=== PATIENT | female | born 1955 | race Caucasian/White ===

== ENCOUNTER 2019-07-20 10:41 | Outpatient (CLI) | payer MEDICAID, SELFPAY ==
--- NOTE | 2019-07-20 10:53 | CT_ITS ---
WS: [id number] CT ANGIOGRAPHY ABDOMEN AND PELVIS WITH AND WITHOUT CONTRAST. HISTORY: AAA WITHOUT RUPTURE TECHNIQUE: Contiguous axial images through the abdomen and pelvis. Imaging performed with and without contrast with delayed imaging. Reformation images and MIP reviewed. All CT scans at [facility] use at least one of these dose optimization techniques: automated exposure control; mA and/or k V adjustment per patient size (includes targeted exams where dose is matched to clinical indication); or iterative reconstruction. CONTRAST: Visipaque 320; 75 mL IV. DLP: 2292.39 mGy-cm. COMPARISON: 03/07/2019 Moderate emphysema at the lung bases. Mild stable dependent changes at the LEFT lung base. Small hiat al hernia. Normal size heart. Early enhancement of the visceral organs demonstrates no acute interval change. Liver and spleen are normal size. Gallbladder and pancreas are negative. Moderate atrophy of the LEFT kidney with small cortical hypodensities scattered throughout the kidney. There is bulging of upper pole cortex measuring 9 mm of the LEFT kidney indeterminate for early neoplasm. Renal atroph y is new since 03/07/2019. The proximal main renal artery on the LEFT is not enhancing. Abdominal aorta: Since the prior examination endovascular grafting has been performed. The endovascul ar graft is above the aneurysm. Graft is evident near the diaphragmatic hiatus and extends over lengt h of 6 cm. There is a hardware gap measuring 3.2 cm before the iliac grafts are identified. Fusiform aneurysm extends over length of 5.8 cm which is similar to the prior examination. Transverse diameter of 3.6 cm and AP diameter of 3.3 cm. Diameter of the aneurysm has slightly decreased. There is a pat ent lumen with a large amount of circumferential thrombus. Contrast is noted filling the common iliac artery grafts. On the delayed imaging there is no enhancement of the thrombus. Enhancement is still evident involving the celiac axis and SMA. No ischemic bowel disease. Moderate fecal retention. No free fluid or periaortic hematoma. L5 anterolisthesis by 7 mm. T12 Schmorl's node. Notified Edil Hill MD at 07/20/2019 12:[address]/CT angio abdomen pelvis [id number] IMPRESSION: 1. Findings are consistent with migration of the endovascular aortic graft. Th e main vascular graft begins at the level of the diaphragmatic hiatus. There molina s been no increase in size of the [place] aneurysm but there is no endovascular graft associated with the largest aneurysmal component. 2. Bilateral iliac artery stent grafts are patent. 3. Moderate atrophy LEFT kidney with new ischemic changes since 03/07/2019. Pos sible LEFT renal carcinoma. Follow-up will be necessary.
[2019-07-20] MEDS: iodixanol 320 mg/mL 100mL Btl IV (11:22)
== END 2019-07-20 10:42 | disposition home or self-care (01) ==
LOC: RADWPI 10:45
PROVIDERS: Family Provider Nurse Practitioner Family; PCP Family Medicine; Referring Provider Family Medicine; Visit Provider Thoracic Surgery (Cardiothoracic Vascular Surgery)
DX: I71.4 Abdominal aortic aneurysm, without rupture (principal); N26.1 Atrophy of kidney (terminal)
CPT/HCPCS: 74174; Q9967

== ENCOUNTER → 2019-07-23 14:35 | Outpatient (BNVA) | payer MEDICAID, SELFPAY | PROVIDERS: Family Provider Nurse Practitioner Family; PCP Family Medicine; Visit Provider Thoracic Surgery (Cardiothoracic Vascular Surgery) | DX: I72.9 Aneurysm of unspecified site (principal) | CPT/HCPCS: 80048 ==

== ENCOUNTER 2019-07-31 09:47 | Outpatient (CLI) | payer MEDICAID, SELFPAY ==
--- NOTE | 2019-07-31 10:15 | USCV_ITS ---
Hali James Age: 64 Gender: F : 1955 Exam Date: 07/31/2019 10:16 Ordering Phys: Edil Hill MD (Andy) ([email or web address]) Technologist: Tiffanie Miller Exam Location: [facility] [place] Indication: AAA Aortic Velocity @ SMA (cm/s) 118 RIGHT KIDNEY LEFT KIDNEY Velocity (cm/s) Velocity (cm/s) Sys/Carnes Sys/Carnes Resistive Index Resistive Index 148.4 / 48.6 0.67 Proximal Renal Artery 125.1 / 54.9 0.56 85.1 / 34.1 0.60 Mid Renal Artery 103.0 / 35.4 0.66 156.3 / 64.8 0.59 Distal Renal Artery 101.9 / 41.2 0.60 41.5 / 18.6 0.55 Hilar 122.0 / 55.9 0.54 52.0 / 24.2 0.54 Upper Pole 24.7 / 9.9 0.60 16.2 / 8.9 0.45 Mid Pole 15.5 / 9.6 0.38 30.9 / 15.8 0.49 Lower Pole 16.7 / 8.0 0.52 1.10 Renal Aortic Ratio 0.91 Accleration Index (cm/sec2) 694.00 Hilar 1363.0 0 788.00 Upper Pole 595.00 627.00 Mid Pole 307.00 514.00 Lower Pole 900.00 83.6 Kidney Length (mm) 70.9 FINDINGS Normal arterial Doppler velocities bilaterally Normal velocity ratios and resistive indicis Relatively small size kidneys bilaterally CONCLUSIONS 1. No evidence of any significant renal artery stenosis. 2. Small size kidneys bilaterally Dr Guillermo Culver MD [facility] (Electronically Signed) Final Date: 01 August 2019 09:11 S
== END 2019-07-31 09:48 | disposition home or self-care (01) ==
LOC: RAD 09:52
PROVIDERS: Family Provider Nurse Practitioner Family; PCP Family Medicine; Visit Provider Thoracic Surgery (Cardiothoracic Vascular Surgery)
DX: I71.4 Abdominal aortic aneurysm, without rupture (principal)
CPT/HCPCS: 93975

== ENCOUNTER 2019-07-31 11:00 | Outpatient (CLI) | payer MEDICAID, SELFPAY ==
[2019-07-31] MEDS: iodixanol 320 mg/mL 100mL Btl IV (11:18)
--- NOTE | 2019-07-31 13:00 | CT_ITS ---
WS: [id number] CT HEAD TECHNIQUE: Noncontrast and contrast-enhanced CT of the head. CLINICAL INFORMATION: new onset headache after 50 COMPARISON: 1 10,019 DLP: 831.[address] scans at [facility] use at least one of these dose optimization techniques: automat ed exposure control; mA and/or kV adjustment per patient size (includes targeted exams where dose is matched to clinical indication); or iterative reconstruction. FINDINGS: Multiple subcentimeter intracranial aneurysms measuring 3 to 5 mm better evaluated on the recent CTA but appear grossly unchanged today. No evidence of intracranial hemorrhage or mass effect. Mild small vessel changes. Moderate parenchyma l volume loss. No hydrocephalus. No extra axial fluid collections. No abnormal intraparenchymal enhan cement. Paranasal sinuses and mastoid air cells well aerated. CT/CT head wo/w con [id number] IMPRESSION: 1. No evidence of intracranial hemorrhage or mass effect. 2. Multiple small intracranial aneurysms measuring 3 to 5 mm better evaluated on the recent CTA appear grossly unchanged. 3. Mild small vessel changes moderate parenchymal volume loss. 4. No abnormal intracranial enhancement.
== END 2019-07-31 11:01 | disposition home or self-care (01) ==
LOC: RAD 11:02
PROVIDERS: Family Provider Nurse Practitioner Family; PCP Family Medicine; Visit Provider Nurse Practitioner Family
DX: I67.1 Cerebral aneurysm, nonruptured (principal); R51 Headache
CPT/HCPCS: 70470

== ENCOUNTER 2019-09-02 13:48 | Emergency (ER) | payer MEDICAID, SELFPAY ==
[2019-09-02 14:00] VITALS: BP 145/82; PULSE 72; RESP 16; TEMP 36.5; O2SAT 96; BMI 19.7
--- NOTE | 2019-09-02 14:18 | W.ED.ANIMALB ---
HPI - Animal Bite General: Chief Complaint: Animal Bite Stated Complaint: dogbite Time Seen by Provider: 09/02/19 14:06 History of Present Illness: HPI narrative: Multiple scratches to both arms and to the left leg from try to break up a dog fight about an hour or so ago. Patient is on Plavix. Patient has skin tear across the back of her right hand that extends about 3 and half inches. Other areas are clotted off and do not appear to be large at all but there are multiple it was her dogs and dogs are up-to-date on shots and she is not worried about rabies with these dogs MD complaint: animal bite Onset (ago): minute(s) Animal: dog Description of animal: household pet Mechanism: scratch Location: other Location - Extremities: Left: lower leg and Right: arm Context: unprovoked and animals fighting Associated symptoms: Reports no associated symptoms; Deny chills, fever(s) or headache(s) Treatments prior to arrival: wound dressing(s) Review of Systems Narrative: Multiple scratches and minor skin tears on the arms and left leg from dog scratching her Const: Denies: fever, chills or body aches Eyes: Denies: change in vision or blurry vision ENMT: Denies: throat pain or nasal congestion Card: Denies: chest pain or shortness of breath on exertion Resp: Denies: shortness of breath, productive cough or non-productive cough GI: Denies: abdominal pain, nausea or vomiting Musc: Denies: extremity pain Skin/Breast: Denies: rash Neuro: Denies: headache Psych: Denies: anxiety or depression Bill/Lymph: Denies: easy bruising [facility] ED PFSH: Social History Smoking and tobacco status: former smoker Alcohol intake: never Physical Exam Const: COMMON NORMALS: no apparent distress, average body habitus and oriented x3 HENMT: COMMON NORMALS: normocephalic HEAD & SCALP: normal to inspection and normocephalic FACE & SINUS: normal facial exam Eye: COMMON NORMALS: conjunctivae normal GENERAL EYE: normal appearance of both eyes CONJUNCTIVA: Yes conjunctivae normal Neck/C-Spine: COMMON NORMALS: no JVD Chest: COMMONS NORMALS: inspection of chest normal Resp: COMMON NORMALS: normal respiratory effort and clear to auscultation bilaterally AUSCULTATION: clear to auscultation bilaterally Cardio: COMMON NORMALS: no JVD, regular rate and regular rhythm RATE: regular rate RHYTHM: regular rhythm GI: COMMON NORMALS: normal to inspection, nondistended, normoactive bowel sounds Extremity: COMMON NORMALS: full ROM NARRATIVE EXTREMITY EXAM: Right hand has a large skin tear across the dorsal surface of it extending from medial lateral side approximately 2 and half to 3 inches. Has multiple scratches on both forearms. And has multiple scratches on the left lower leg. Patient has good range of motion neurovascular status is intact. Neuro: COMMON NORMALS: oriented x3 Procedures Laceration Laceration 1: Site: hand Side (If applicable): right Size (cm): 5 Description: linear Depth: simple, single layer Pre-repair: irrigated extensively Size (cm): other Technique: other (Glue) Course Vital Signs: Vital signs: Vital Signs Temperature 97.7 F 09/02/19 14:00 Pulse Rate 72 09/02/19 14:00 Respiratory Rate 16 09/02/19 14:00 Blood Pressure 145/82 09/02/19 14:00 Pulse Oximetry 96 09/02/19 14:00 Discharge Plan Discharge Prescriptions: No Action aspirin 81 mg tablet,delayed release (DR/EC) 81 mg PO DAILY RF: 0 nitroglycerin [Nitrostat] 0.4 mg tablet, sublingual 0.4 mg SUBLINGUAL Q5M PRNRF: 0 levothyroxine [Synthroid] 25 mcg tablet 25 mcg PO DAILY RF: 0 fluoxetine [Prozac] 20 mg capsule 20 mg PO DAILY RF: 0 albuterol sulfate 2.5 mg /3 mL (0.083 %) solution for nebulization 2.5 mg INHALATION QID RF: 0 Spiriva with HandiHaler 18 mcg capsule, w/inhalation device 1 cap INHALATION DAILY RF: 0 ferrous sulfate 325 mg (65 mg iron) tablet 325 mg PO BID RF: 0 atorvastatin 20 mg tablet 20 mg PO DAILY RF: 0 baclofen 10 mg tablet 10 mg PO TID PRNRF: 0 buspirone 30 mg tablet 30 mg PO DAILY RF: 0 celecoxib [Celebrex] 200 mg capsule 200 mg PO DAILY RF: 0 roflumilast PO DAILY RF: 0 omeprazole 20 mg capsule,delayed release(DR/EC) 20 mg PO DAILY RF: 0 ropinirole 1 mg tablet 1 mg PO DAILY RF: 0 Symbicort 160-4.5 mcg/actuation HFA aerosol inhaler 2 puff INHALATION BID RF: 0 tramadol 50 mg tablet 50 mg PO Q8H PRNRF: 0 metoprolol succinate 25 mg tablet extended release 24 hr 25 mg PO DAILY RF: 0 levofloxacin [Levaquin] 500 mg tablet 500 mg PO Q24H Qty: 5 RF: 0 irbesartan 300 mg tablet 300 mg PO DAILY Qty: 30 RF: 3 Coding Level of Care Code ED Physician Assistant Surgery for Leann Crowley
[2019-09-02] MEDS: tetanus-dipt-pertussis 0.5 mL SDV IM (14:33)
[2019-09-02 14:43] VITALS: BP 149/86; PULSE 70; RESP 16; TEMP 36.7; O2SAT 94
== END 2019-09-02 14:45 | disposition home or self-care (01) ==
LOC: ER 14:32
PROVIDERS: Emergency Provider Nurse Practitioner Family; Family Provider Nurse Practitioner Family; PCP Family Medicine
DX: S61.411A Laceration without foreign body of right hand, initial encounter (principal); S80.812A Abrasion, left lower leg, initial encounter; S50.812A Abrasion of left forearm, initial encounter; S50.811A Abrasion of right forearm, initial encounter; Z87.891 Personal history of nicotine dependence; W54.8XXA Other contact with dog, initial encounter
CPT/HCPCS: 12002; 90715; 96372; 99281; 99282

== ENCOUNTER → 2019-09-10 12:02 | Outpatient (BNVA) | payer MEDICAID, SELFPAY | PROVIDERS: Family Provider Nurse Practitioner Family; PCP Family Medicine; Visit Provider Nurse Practitioner Family | DX: R06.02 Shortness of breath (principal); J44.1 Chronic obstructive pulmonary disease with (acute) exacerbation | CPT/HCPCS: 71046 ==

== ENCOUNTER 2019-09-10 22:39 | Emergency (ER) | payer MEDICAID, SELFPAY ==
[2019-09-10 22:42] VITALS: BP 133/69; PULSE 93; RESP 16; TEMP 36.6; O2SAT 95; BMI 19.7
--- NOTE | 2019-09-10 22:47 | ED_ITS ---
Entered by Jamilah Novak, acting as scribe for Flo Mcknight MD HPI - General Adult General: Chief complaint: Shortness of Breath/Dyspnea Stated complaint: SOB Time Seen by Provider: 09/10/19 22:45 Source: patient, family and EMS Mode of arrival: EMS History of Present Illness: HPI narrative: 64 y/o female presents to the ED for multiple symptoms. Pt states she was seen at the clinic today for cough, sore throat, etc and was placed on abx. Since then, she had an episode of muscle spasm in her LE, GARCIA, sweating and rib pain. She reports having SOB with this earlier, but that is no longer an issue. She reports hx of brain aneurysms. MD complaint: SOB/GARCIA Location: head Severity: mild Pain Consistency: intermittent Associated symptoms: Reports headache(s); Deny chest pain, dyspnea (upon arrival at [facility]), nausea, rash or vomiting Review of Systems Const: Denies: fever, chills, body aches or change in appetite Eyes: Denies: blurry vision or eye discomfort ENMT: Denies: throat pain or dental pain Card: Denies: chest pain Resp: Reports: non-productive cough; Denies: shortness of breath (upon arrival at [facility]) GI: Denies: abdominal pain, nausea, vomiting or diarrhea : Denies: painful urination Musc: Denies: neck pain or back pain Skin/Breast: Denies: rash Neuro: Reports: headache Psych: Denies: depression Bill/Lymph: Denies: easy bruising All/Imm: Denies: hives [facility] ED PFSH: Social History Smoking and tobacco status: former smoker Alcohol intake: never Physical Exam Const: COMMON NORMALS: no apparent distress, oriented x3 and healthy appearing HENMT: COMMON NORMALS: normocephalic and head/scalp atraumatic HEAD & SCALP: normocephalic and atraumatic Eye: COMMON NORMALS: PERRL and EOMs intact bilaterally PUPIL: Yes PERRL Neck/C-Spine: COMMON NORMALS: full ROM and supple Chest: COMMONS NORMALS: inspection of chest normal and palpation of chest normal Resp: COMMON NORMALS: normal respiratory effort, no retractions, no use of accessory muscles and clear to auscultation bilaterally AUSCULTATION: clear to auscultation bilaterally Cardio: COMMON NORMALS: regular rate, regular rhythm and no murmurs RATE: regular rate RHYTHM: regular rhythm GI: COMMON NORMALS: normal to inspection, nondistended, normoactive bowel sounds, soft to palpation, non-tender and no masses PALPATION: Yes soft Extremity: COMMON NORMALS: normal to inspection and full ROM Neuro: COMMON NORMALS: oriented x3, moves all extremities and no focal motor deficits Psych: COMMON NORMALS: mental status grossly normal, thought process normal and cooperative THOUGHT PROCESS: normal thought process Skin: COMMON NORMALS: no rashes or lesions noted and no wounds GENERAL SKIN EXAM: no rashes or lesions noted Course Vital Signs: Vital signs: Vital Signs Temperature 98 F 09/10/19 22:42 Pulse Rate 94 09/11/19 01:40 Respiratory Rate 20 H 09/11/19 01:40 Blood Pressure 129/78 09/11/19 01:40 Pulse Oximetry 99 09/11/19 01:40 MDM - General Adult MDM Narrative: Medical decision making narrative: Patient presents with a headache and has history of previous headaches. She has no signs of subarachnoid hemorrhage or meningitis. Her head CT here is negative. Patient is well-appearing here and is stable for discharge. I did inform her hemoglobin was slightly low and she states she has a history of anemia. She is to follow- up with her primary care doctor later this week and return if worsening. She denies any blood in her stool or loss of blood. Lab Data: Labs: Lab Results 09/10/19 09/10/19 Range/Units 23:02 23:02 WBC 5.7 (4.0-10.0) 10^3/ uL RBC 3.54 L (4.1-5.3) 10^6/u L Hgb 8.8 L (11.5-15.3) g/dL Hct 27.7 L (37.0-47.0) % MCV 78.2 L D (81-99) fL MCH 24.9 L (28.0-34.0) pg MCHC 31.8 (30.0-36.0) g/dL RDW 15.9 H (12.1-15.1) % Plt Count 238 (130-400) 10^3/c mm MPV 9.4 (7.4-10.4) fL Neut % (Auto) 92.4 % Lymph % (Auto) 5.3 % [place] % (Auto) 1.6 % Eos % (Auto) 0.0 % Baso % (Auto) 0.2 % Neut # (Auto) 5.3 (1.8-7.7) 10^3/u L Lymph # (Auto) 0.3 L (0.8-4.8) 10^3/u L [place] # (Auto) 0.1 L (0.2-0.9) 10^3/u L Eos # (Auto) 0.0 (0.0-0.8) 10^3/u L Baso # (Auto) 0.0 (0.0-0.1) 10^3/u L Nucleated RBC % (a uto) 0 % Nucleated RBCs # 0.0 /100WBC Sodium 131 L (136-145) mmol/L Potassium 3.7 (3.5-5.1) mmol/L Chloride 97 L (98-107) mmol/L Carbon Dioxide 20 L (22-29) mmol/L Anion Gap 17.7 (5-19) BUN 14 (8-23) mg/dL Creatinine 1.1 H (0.5-0.9) mg/dL GFR Calculation 50.3 L (90-130) mL/min Glucose 147 H (65-115) mg/dL Calcium 9.3 (8.5-10.5) mg/dL Total Bilirubin 0.3 (0.15-1.2) mg/dL AST 15 (0-32) U/L ALT 6 (0-33) U/L Alkaline Phosphata se 86 (35-105) IU/L Total Protein 7.5 (6.6-8.7) g/dL Albumin 3.8 (3.5-5.2) g/dL Globulin 3.7 (1.3-4.6) g/dL Lipase 14 (13-60) U/L Imaging Data^: CT Head: Radiologist's impression: Ordering Provider/Ordering MD: Flo Mcknight MD Date of Service: 09/10/19 Procedure(s): CT head wo con* [id number] Accession Number(s): [id number] Report Number: [id number] PROCEDURE INFORMATION: Exam: CT Head Without Contrast Exam date and time: 09/10/2019 11:14 PM Age: 64 years old Clinical indication: Pain; Headache TECHNIQUE: Imaging protocol: Computed tomography of the head without contrast. Total DLP: 608.94 mGy-cm Radiation optimization: All CT scans at this facility use at least one of these dose optimization techniques: automated exposure control; mA and/or kV adjustment per patient size (includes targeted exams where dose is matched to clinical indication); or iterative reconstruction. COMPARISON: CT head wo/w con [id number] 07/31/2019 11:29 AM FINDINGS: Brain: No acute intracranial hemorrhage or mass effect . There is mild decreased attenuation in the periventricular white matter, likely from microvascular disease. Suspect old lacunar infarcts in the basal ganglia/internal capsule regions bilaterally, similar to prior exam. No definite acute infarct by CT. Ventricles: Ventricle size is normal for age. Bones/joints: No definite acute skull fracture. Sinuses: Included paranasal sinuses are essentially clear. Mastoid air cells: No significant acute finding. Vasculature: Mild vascular calcifications in the internal carotid and vertebral basilar systems. CT/CT head wo con* [id number] IMPRESSION: 1. No acute intracranial hemorrhage or mass effect. 2. Other findings discussed above. CXR: Attestation: I personally reviewed and interpreted this imaging study as follows: My impression: no acute abnormality Discharge Plan Discharge Patient Disposition: Home, Self-Care Clinical Impression: COPD (chronic obstructive pulmonary disease) Qualifiers: COPD type: unspecified COPD Qualified Code(s): J44.9 - Chronic obstructive pulmonary disease, unspecified Headache Qualifiers: Headache type: unspecified Headache chronicity pattern: unspecified pattern Intractability: not intractable Qualified Code(s): R51 - Headache Condition: Stable Prescriptions: No Action aspirin 81 mg tablet,delayed release (DR/EC) 81 mg PO DAILY RF: 0 nitroglycerin [Nitrostat] 0.4 mg tablet, sublingual 0.4 mg SUBLINGUAL Q5M PRN (Reason: Chest Pain) RF: 0 levothyroxine [Synthroid] 25 mcg tablet 25 mcg PO DAILY RF: 0 fluoxetine [Prozac] 20 mg capsule 20 mg PO DAILY RF: 0 albuterol sulfate 2.5 mg /3 mL (0.083 %) solution for nebulization 2.5 mg INHALATION QID RF: 0 Spiriva with HandiHaler 18 mcg capsule, w/inhalation device 1 cap INHALATION DAILY RF: 0 ferrous sulfate 325 mg (65 mg iron) tablet 325 mg PO BID RF: 0 atorvastatin 20 mg tablet 20 mg PO DAILY RF: 0 baclofen 10 mg tablet 10 mg PO TID PRN (Reason: Muscle Spasm) RF: 0 buspirone 30 mg tablet 30 mg PO DAILY RF: 0 celecoxib [Celebrex] 200 mg capsule 200 mg PO DAILY RF: 0 roflumilast PO DAILY RF: 0 omeprazole 20 mg capsule,delayed release(DR/EC) 20 mg PO DAILY RF: 0 ropinirole 1 mg tablet 1 mg PO DAILY RF: 0 Symbicort 160-4.5 mcg/actuation HFA aerosol inhaler 2 puff INHALATION BID RF: 0 tramadol 50 mg tablet 50 mg PO Q8H PRN (Reason: Pain) RF: 0 clarithromycin 500 mg tablet 500 mg PO BID 7 Days Qty: 14 RF: 0 prednisone 20 mg tablet 40 mg PO DAILY 5 Days Qty: 10 RF: 0 irbesartan 300 mg tablet 300 mg PO DAILY Qty: 30 RF: 3 metoprolol succinate 50 mg tablet extended release 24 hr 50 mg PO DAILY Qty: 90 RF: 3 clopidogrel 75 mg Tablet 75 mg PO DAILY RF: 0 Discharge Orders: Discharge Order (Routine); Ordered 09/11/19 Ordered By: Flo Mcknight Referrals: Nancy Carrasco FNP-C [Family Provider] - Jcarlos Lobato MD [Primary Care Provider] - Discharge Diet: Advance as tolerated Discharge Activity: Resume usual activity Patient Instructions: Acute Headache (ED) Discharge Date/Time: 09/11/19 01:40 Coding Level of Care Code ED Service Desk Agent for Chg Fwd Exam Comprehensive The documentation recorded by the Kishore beltran Ashley, accurately reflects the service I personally performed and the decisions made by Juan Luis hernández Korby, MD Sep 10, 2019 22:39
--- NOTE | 2019-09-10 22:49 | ECG_ITS ---
Measurements Intervals [place] Rate: 91 P: 71 TX: 122 QRS: 70 QRSD: 78 T: 69 QT: 445 QTc: 548 SINUS RHYTHM PROLONGED QT INTERVAL Compared to ECG 05/14/2019 12:21:44 Prolonged QT interval now present Electronically Signed On 09-11-2019 13:21:22 TYPE MAPPER by Nakita Hernandez M.D. [email or web address]
--- NOTE | 2019-09-10 22:49 | XR_ITS ---
WS: [id number] XR chest 1V portable [id number] REASON FOR EXAM: sob FINDINGS: Hyper aerated lungs consistent with centrilobular emphysema. These findings are similar to September 10, 2019. The Changes filters again seen in the positioning is similar to the previous exam. And is seen with the t ip at the T10 level. There is arteriosclerotic changes seen in the arch the aorta. XR/XR chest 1V portable [id number] IMPRESSION: Chronic obstructive pulmonary disease unchanged since earlier exam. [place] filter unchanged positioning since the exam of 09/10/2019.
[2019-09-10 23:15] LABS: Basophils % 0.2 %; Hematocrit 27.7 % (37.0-47.0); Hemoglobin 8.8 g/dL (11.5-15.3); Lymphocytes # 0.3 10^3/uL (0.8-4.8); Lymphocytes % 5.3 %; Mean Corpuscular HGB Conc 31.8 g/dL (30.0-36.0); Mean Corpuscular Hemoglobin 24.9 pg (28.0-34.0); Mean Corpuscular Volume 78.2 fL (81-99); Mean Platelet Volume 9.4 fL (7.4-10.4); Monocytes # 0.1 10^3/uL (0.2-0.9); Monocytes % 1.6 %; Neutrophils # 5.3 10^3/uL (1.8-7.7); Neutrophils % 92.4 %; Nucleated Red Blood Cells % 0 %; Platelet Count 238 10^3/cmm (130-400); Red Blood Count 3.54 10^6/uL (4.1-5.3); Red Cell Distribution Width 15.9 % (12.1-15.1); White Blood Count 5.7 10^3/uL (4.0-10.0)
[2019-09-10 23:34] VITALS: PULSE 84; RESP 18; O2SAT 97
[2019-09-10] MEDS: ipratropium-albuterol 3 mL Neb INHALATION (23:34)
[2019-09-10 23:35] LABS: Alanine Aminotransferase 6 U/L (0-33); Albumin Level 3.8 g/dL (3.5-5.2); Alkaline Phosphatase 86 IU/L (35-105); Anion Gap 17.7 (5-19); Aspartate Amino Transferase 15 U/L (0-32); Blood Urea Nitrogen 14 mg/dL (8-23); Calcium 9.3 mg/dL (8.5-10.5); Carbon Dioxide 20 mmol/L (22-29); Chloride 97 mmol/L (98-107); Globulin 3.7 g/dL (1.3-4.6); Glomerular Filtration Rate 50.3 mL/min (90-130); Glucose 147 mg/dL (65-115); Lipase 14 U/L (13-60); Potassium 3.7 mmol/L (3.5-5.1); Sodium 131 mmol/L (136-145); Total Bilirubin 0.3 mg/dL (0.15-1.2); Total Protein 7.5 g/dL (6.6-8.7)
[2019-09-10 23:39] VITALS: PULSE 85
[2019-09-10] MEDS: metoclopramide 5 mg/mL SDV 2 mL IVP (23:47)
[2019-09-10] MEDS: diphenhydrAMINE 50 mg/mL SDV 1mL 25 MG IVP (23:47)
[2019-09-11 01:40] VITALS: BP 129/78; PULSE 94; RESP 20; O2SAT 99
== END 2019-09-11 01:40 | disposition home or self-care (01) ==
PROVIDERS: Emergency Provider Emergency Medicine; Family Provider Nurse Practitioner Family; PCP Family Medicine
DX: J44.9 Chronic obstructive pulmonary disease, unspecified (principal); R51 Headache; Z79.51 Long term (current) use of inhaled steroids; Z87.891 Personal history of nicotine dependence
CPT/HCPCS: 36415; 70450; 71045; 80053; 83690; 85025; 85378; 93005; 94640; 96374; 96375; 99282; 99284; J1200; J2765; J7611

== ENCOUNTER 2019-09-12 12:23 | Outpatient (CLI) | payer MEDICAID, SELFPAY ==
--- NOTE | 2019-09-12 14:00 | CT_ITS ---
WS: [id number] CT CHEST ANGIOGRAPHY WITH REFORMATS HISTORY: shortness of breath, elevated d dimer TECHNIQUE: Contiguous axial images are obtained through the chest during arterial injection of intrav enous contrast. Images are reconstructed to evaluate the pulmonary arteries. MIP imaging also reviewe d. All CT scans at [facility] use at least one of these dose optimization techniques: aut omated exposure control; mA and/or kV adjustment per patient size (includes targeted exams where dose is matched to clinical indication); or iterative reconstruction. CONTRAST: Visipaque 320; 95 mL IV. DLP: 347.07 mGy.cm COMPARISON: 03/22/2019 Excellent opacification of the pulmonary arteries. No filling defects. Pulmonary artery size is less than aorta. Thoracic aorta is normal caliber. Mild atherosclerotic plaque with no dissection or aneur ysm. Heart size is mildly enlarged. No RIGHT heart strain. No pericardial or pleural effusion. Lungs are hyperinflated. 2 mm nodule in the periphery of the LEFT lower lobe. Previously described no dule in the RIGHT middle lobe in a subpleural location is smaller today which may be due to volume av eraging. No suspicious mass or pneumonia. No mediastinal or hilar adenopathy. Partial visualization o f the prior abdominal aortic stent graft. Atrophied and poor vascularization upper pole LEFT kidney i s also similar to the prior study of 07/20/2019. Exophytic soft tissue nodule from the upper pole LEFT kidney is better seen on the prior study. Anticipate follow-up for possible renal neoplasm was recom mended on 07/20/2019. No osteoblastic or osteolytic bone disease. CT/CT angio chest PE protcl [id number] IMPRESSION: 1. No pulmonary embolism. 2. Chronic emphysema with no pneumonia. 3. No adenopathy. 4. No change in the atrophy and ischemic changes upper pole LEFT kidney as com pared to 07/20/2019.
[2019-09-12] MEDS: iodixanol 320 mg/mL 100mL Btl IV (14:44)
== END 2019-09-12 12:24 | disposition home or self-care (01) ==
PROVIDERS: Family Provider Nurse Practitioner Family; PCP Family Medicine; Visit Provider Nurse Practitioner Family
DX: J43.9 Emphysema, unspecified (principal); R79.89 Other specified abnormal findings of blood chemistry; R06.02 Shortness of breath
CPT/HCPCS: 71275

== ENCOUNTER 2019-12-24 10:21 | Outpatient (CLI) | payer MEDICAID, SELFPAY ==
--- NOTE | 2019-12-24 10:28 | MM_ITS ---
WS: [id number] BILATERAL DIGITAL SCREENING MAMMOGRAPHY WITH CAD CLINICAL INFORMATION: SCREENING HISTORY: Screening mammogram. No current complaints. COMPARISON: September 27, 2018 TECHNIQUE: Bilateral CC and MLO views. FINDINGS: Scattered fibroglandular densities bilaterally. No suspicious focal mass, asymmetry, calcifications, or architectural distortion. No evidence of malignancy. Punctate calcifications left breast. MM/[place] [id number] IMPRESSION: BI-RADS: 2-Benign FOLLOW UP: 1 Year Follow-up Recommend return to annual screening mammography.
== END 2019-12-24 10:22 | disposition home or self-care (01) ==
LOC: RADSHAW 10:25
PROVIDERS: PCP Family Medicine; Visit Provider Nurse Practitioner Family
DX: Z12.31 Encounter for screening mammogram for malignant neoplasm of breast (principal)
CPT/HCPCS: 77067

== ENCOUNTER → 2020-01-15 14:42 | Outpatient (BNVA) | payer MEDICAID, SELFPAY | PROVIDERS: PCP Family Medicine; Visit Provider Nurse Practitioner Family | DX: I10 Essential (primary) hypertension (principal); R51 Headache | CPT/HCPCS: 80053; 85025 ==

== ENCOUNTER 2020-01-29 15:11 | Emergency (ER) | payer MEDICAID, SELFPAY ==
[2020-01-29 15:31] VITALS: BP 162/80; PULSE 79; RESP 18; TEMP 36.9; O2SAT 96; BMI 18.7
--- NOTE | 2020-01-29 16:08 | USCV_ITS ---
Hali James Age: 64 Gender: F : 1955 Exam Date: 01/29/2020 16:45 Ordering Phys: Brett Herman DO Technologist: Mini Pastor Exam Location: [facility] [place] Indication: LEG SWELLING AND PAIN PROCEDURES: Venous duplex imaging was performed in only the right lower extremity. The following venous structures were evaluated: common femoral vein, profunda vein, proximal portion of the greater saphenous vein, superficial femoral vein, and the popliteal vein. In addition, the posterior tibial and peroneal trunk were evaluated. Serial compression, augmentation maneuvers, and spectral Doppler flow evaluation were performed. FINDINGS: Normal 2-D Doppler and augmentation and compressibility throughout the lower extremity venous structures. Additional imaging through the proximal calf veins also reveals no thrombus. Limited evaluation of the greater saphenous vein is patent with no thrombus. CONCLUSIONS No DVT right lower extremity. Dr. Leah Monroy DO (Electronically Signed) Final Date: 30 January 2020 07:42 S
[2020-01-29 16:10] VITALS: PULSE 76; RESP 18; O2SAT 98
--- NOTE | 2020-01-29 16:13 | W.ED.EXTPRO ---
HPI - Extremity Problem General: Chief complaint: Extremity Problem,Nontraumatic Stated complaint: LEG SWELLING Time Seen by Provider: 01/29/20 15:15 History of Present Illness: HPI Narrative: 64-year-old female presents emergency room with complaint of right leg swelling she recently had made several medication adjustments by her signalling and communications engineer for uncontrolled hypertension initially started on amlodipine and then increase it from 5 to 10 mg and the leg began to swell more significantly. She has bilateral leg swelling but only has tenderness and pain in the right leg. She is not had any chest pain or shortness of breath. She not previously had a DVT she is not on any kind of anticoagulants. She does have a history of COPD. MD Complaint: extremity swelling Onset (ago): day(s) Pain Consistency: constant Location: right Quality: aching Radiation: none Relieving factors: rest Exacerbating factors: weight bearing, walking and exertion Associated symptoms: Deny chest pain, fever(s), myalgias, rash or short of breath Context: other (Medication changes) Review of Systems Const: Denies: fever(s) ENMT: Denies: throat pain, ear or mastoid pain, nasal discharge or nasal congestion Card: Denies: chest pain Resp: Denies: dyspnea, productive cough or non-productive cough GI: Denies: abdominal pain, nausea, vomiting, hematemesis, coffee ground emesis, diarrhea, constipation, bloating, hematochezia or melena : Denies: flank pain, difficulty voiding, dysuria, urinary frequency or urinary urgency Skin/Breast: Denies: rash or pruritus COUNTS INCLUDE 234 BEDS AT THE [facility] ED PFSH: Medical History AAA (abdominal aortic aneurysm) Atypical chest pain COPD (chronic obstructive pulmonary disease) Endoleak post (EVAR) endovascular aneurysm repair Hypercholesteremia Hypertension Hypothyroidism Surgical History H/O: hysterectomy Hx of tonsillectomy S/P appendectomy Family History Other CAD (coronary artery disease) Hypertension Social History Smoking and tobacco status: former smoker Alcohol intake: never Substance/Drug Use: never Physical Exam Const: COMMON NORMALS: average body habitus, patient oriented x3 and alert GENERAL APPEARANCE: cooperative, comfortable, well kempt and well developed NUTRITIONAL APPEARANCE: obese ORIENTATION/CONSCIOUSNESS: Yes awake, Yes oriented to person and Yes oriented to place HENMT: COMMON NORMALS: normocephalic, atraumatic and EAC's normal HEAD & SCALP: normocephalic and atraumatic EXTERNAL AUDITORY CANAL: EAC's normal Eye: COMMON NORMALS: Equal, round and reactive pupils present, EOMs intact bilaterally, conjunctivae normal and no scleral icterus CONJUNCTIVA: Yes conjunctivae normal PUPIL: Yes Equal, round and reactive pupils present Neck/C-Spine: COMMON NORMALS: full ROM, no lymphadenopathy, supple, no meningeal signs and Thyroid normal THYROID: Thyroid normal and asymmetrical Lymph: LYMPHATIC: no lymphadenopathy noted Resp: COMMON NORMALS: normal respiratory effort, No retractions, No use of accessory muscles and clear to auscultation bilaterally AUSCULTATION: clear to auscultation bilaterally Cardio: COMMON NORMALS: regular rate and regular rhythm RATE: regular rate RHYTHM: regular rhythm HEART SOUNDS: no murmurs GI: COMMON NORMALS: Normal to inspection, nondistended, normoactive bowel sounds present, Soft to palpation and No hepatosplenomegaly present PALPATION: Yes Soft to palpation and Yes No hepatosplenomegaly present : COMMON NORMALS: Yes no CVA tenderness BLADDER/KIDNEY EXAM: Yes no CVA tenderness Back/Pelvis: COMMON NORMALS: no CVA tenderness LUMBAR SPINE/LOWER BACK: Yes normal to inspection Extremity: NARRATIVE EXTREMITY EXAM: Bilateral leg edema on lower extremities to the level of the knees it is significantly more in the right than the left with positive Homans on the right negative on the left. There is multiple areas of abrasions ecchymosis in the lower extremities no signs of cellulitis Neuro: COMMON NORMALS: patient oriented x3 SENSORIUM/ORIENTATION: Yes alert, Yes oriented to person and Yes oriented to place MENINGEAL SIGNS: Yes no meningeal signs Psych: APPEARANCE: Yes well kempt Skin: COMMON NORMALS: no rashes or lesions noted and turgor normal GENERAL SKIN EXAM: no rashes or lesions noted and turgor normal Course Vital Signs: Vital signs: Vital Signs Temperature 98.4 F 01/29/20 15:31 Pulse Rate 71 01/29/20 18:28 Respiratory Rate 18 01/29/20 18:28 Blood Pressure 132/75 01/29/20 18:28 Pulse Oximetry 96 01/29/20 18:28 MDM - Extremity (Nontraumatic) MDM Narrative: Medical decision making narrative: Venous duplex of the right leg is negative. Suspect this is due to her amlodipine. Continue current medications follow-up with primary care or cardiology for further adjustments for hypertension. Discharge Plan Discharge Patient Disposition: Home, Self-Care Clinical Impression: Hypertension, Medication side effect Condition: Stable Prescriptions: No Action nitroglycerin [Nitrostat] 0.4 mg tablet, sublingual 0.4 mg SUBLINGUAL Q5M PRN (Reason: Chest Pain) RF: 0 levothyroxine [Synthroid] 25 mcg tablet 25 mcg PO DAILY RF: 0 fluoxetine [Prozac] 20 mg capsule 20 mg PO DAILY RF: 0 albuterol sulfate 2.5 mg /3 mL (0.083 %) solution for nebulization 2.5 mg INHALATION QID RF: 0 Spiriva with HandiHaler 18 mcg capsule, w/inhalation device 1 cap INHALATION DAILY RF: 0 atorvastatin 20 mg tablet 30 mg PO DAILY RF: 0 buspirone 30 mg tablet 30 mg PO DAILY RF: 0 celecoxib [Celebrex] 200 mg capsule 200 mg PO DAILY RF: 0 roflumilast 500 mg PO DAILY RF: 0 omeprazole 20 mg capsule,delayed release(DR/EC) 20 mg PO DAILY RF: 0 ropinirole 1 mg tablet 1 mg PO DAILY RF: 0 Symbicort 160-4.5 mcg/actuation HFA aerosol inhaler 2 puff INHALATION BID RF: 0 amlodipine 10 mg tablet 10 mg PO DAILY 90 Days Qty: 90 RF: 0 metoprolol succinate 50 mg tablet extended release 24 hr 50 mg PO DAILY Qty: 90 RF: 3 aspirin 81 mg tablet,delayed release (DR/EC) 81 mg PO DAILY Qty: 30 RF: 0 irbesartan 300 mg tablet 300 mg PO DAILY Qty: 30 RF: 3 hydralazine 25 mg tablet 25 mg PO TID Qty: 90 RF: 6 Discharge Orders: Discharge Order (Routine); Ordered 01/29/20 Ordered By: Brett Herman Referrals: Jcarlos Lobato MD [Primary Care Provider] - Discharge Diet: Usual diet Discharge Activity: Resume usual activity Activity Restrictions/Additional Instructions: Follow-up with your primary care doctor or signalling and communications engineer for adjustments in blood pressure medication. Discharge Date/Time: 01/29/20 18:31 Coding Level of Care Code ED Cork Tile Floor Layer for eDxg Fwd Exam Comprehensive
[2020-01-29 18:28] VITALS: BP 132/75; PULSE 71; RESP 18; O2SAT 96
== END 2020-01-29 18:31 | disposition home or self-care (01) ==
PROVIDERS: Emergency Provider Family Medicine; PCP Family Medicine
DX: I10 Essential (primary) hypertension (principal); T50.905A Adverse effect of unspecified drugs, medicaments and biological substances, initial encounter; Z79.82 Long term (current) use of aspirin; J44.9 Chronic obstructive pulmonary disease, unspecified; Z87.891 Personal history of nicotine dependence
CPT/HCPCS: 12345; 93971; 99281; 99282

== ENCOUNTER → 2020-01-30 09:39 | Outpatient (BNVA) | payer MEDICAID, SELFPAY | PROVIDERS: PCP Family Medicine; Visit Provider Nurse Practitioner Family | DX: I10 Essential (primary) hypertension (principal); D64.9 Anemia, unspecified; I73.9 Peripheral vascular disease, unspecified; M79.89 Other specified soft tissue disorders; L97.909 Non-pressure chronic ulcer of unspecified part of unspecified lower leg with unspecified severity | CPT/HCPCS: 80053; 82728; 83550; 85025 ==

== ENCOUNTER → 2020-02-01 15:01 | Outpatient (BNVA) | payer MEDICAID, SELFPAY | PROVIDERS: PCP Family Medicine; Visit Provider Nurse Practitioner Family | DX: I73.9 Peripheral vascular disease, unspecified (principal); L97.909 Non-pressure chronic ulcer of unspecified part of unspecified lower leg with unspecified severity; M79.89 Other specified soft tissue disorders; I10 Essential (primary) hypertension; D64.9 Anemia, unspecified; R79.89 Other specified abnormal findings of blood chemistry | CPT/HCPCS: 82270 ==

== ENCOUNTER 2020-02-06 12:57 | Outpatient (CLI) | payer MEDICAID, SELFPAY ==
[2020-02-06 13:31] LABS: Basophils % 0.3 %; Hematocrit 28.2 % (37.0-47.0); Hemoglobin 9.2 g/dL (11.5-15.3); Lymphocytes # 1.6 10^3/uL (0.8-4.8); Lymphocytes % 48.3 %; Mean Corpuscular HGB Conc 32.6 g/dL (30.0-36.0); Mean Corpuscular Hemoglobin 27.1 pg (28.0-34.0); Mean Corpuscular Volume 82.9 fL (81-99); Mean Platelet Volume 10.2 fL (7.4-10.4); Monocytes # 0.3 10^3/uL (0.2-0.9); Monocytes % 9.8 %; Neutrophils # 1.35 10^3/uL (1.8-7.7); Neutrophils % 41.3 %; Nucleated Red Blood Cells % 0 %; Platelet Count 168 10^3/cmm (130-400); Red Cell Distribution Width 17.7 % (12.1-15.1); White Blood Count 3.3 10^3/uL (4.0-10.0)
[2020-02-06 16:25] LABS: Folate Level 9.7 ng/mL (4.8-37.3)
[2020-02-06 19:14] LABS: LAB Peripheral Smear Sent for Review
[2020-02-07 08:03] LABS: Ferritin 116 ng/mL (15-150); Iron 64 ug/dL (37-145); Percent Saturation 31.6 % (20-50); Thyroid Stimulating Hormone 6.93 uIU/mL (0.27-4.20); Total Iron Binding Capacity 202 mcg/dl; Unsaturated Iron Binding 138 ug/dL (112-347); Vitamin B12 1206 pg/mL (232-1245)
[2020-02-07 09:10] LABS: PROTEIN, TOTAL 6.6 g/dL (6.1-8.1)
[2020-02-07 13:00] LABS: ALBUMIN 3.9 g/dL (3.8-4.8); ALPHA 1 GLOBULIN 0.4 g/dL (0.2-0.3); ALPHA 2 GLOBULIN 0.8 g/dL (0.5-0.9); BETA 1 GLOBULIN 0.4 g/dL (0.4-0.6); BETA 2 GLOBULIN 0.3 g/dL (0.2-0.5); GAMMA GLOBULIN 0.9 g/dL (0.8-1.7)
--- NOTE | 2020-02-08 13:49 | ONC CON_ITS ---
Dr. Ballesteros New Patient Note Patient: Hali James Unit #: [id number]: 1955 Dicatated By: Ade Ballesteros M.D.Date of Visit: Feb 06, 2020 Onc MED New Patient/Consult Referring Physician: Luz Masters History of Present Illness: Ms. Hali James, is a 64-year-old female with a history of anemia. As per patient, first time she was diagnosed with anemia was not 2014 or , at that time she was given oral iron supplement for 5 or 6 months with that anemia was resolved until recently when her routine lab work-up done on January 30, 2020 showed white blood count 3.4, hemoglobin 9.2 g hematocrit 27.9 platelets 171,000 MCV 85 and CMP showed creatinine 2, and anemia work-up including iron studies showed iron 53, iron saturation 29.2, TIBC 181 ferritin 113, bilirubin 0.2, stool for occult blood was negative Patient denies any history of blood transfusion, patient had colonoscopy done at age 62 it was unremarkable but not sure about EGD Patient has history of hysterectomy and bilateral oophorectomy at age 22 for incompetent cervix. Patient denies any jaundice, denies any melena or hematochezia, denies any hemoptysis or hematemesis, denies any night sweats, denies any abdominal fullness, denies any peripheral lymphadenopathy. Denies any bony pain denies any weight loss. Past Medical History: Ms. James's medical history consists of abdominal aortic aneurysm, atypical chest pain, chronic obstructive pulmonary disease, hypercholesterolemiaa, hypertension, hypothyroidism, and peripheral vascular disease. Past Surgical History: Ms. James's surgical/procedural history consists of appendectomy, endovascular repair of abdominal aortic aneurysm, hysterectomy, and tonsillectomy. Medications: Albuterol Sulfate (sensor) 1 Puff(s) (of 108 (90 base) mcg/act) Aerosol Powder, Breath Activated Inhalation daily, Aspirin 1 Tablet (of 81 mg) Tablet, enteric coated Oral daily, Atorvastatin Calcium 1 Tablet (of 30 mg) Oral daily, Budesonide-Formoterol Fumarate 1 Puff(s) (of 160-4.5 mcg/act) Aerosol Inhalation daily, busPIRone HCl 1 Tablet (of 30 mg) Oral daily, Celecoxib 1 Capsule (of 200 mg) Oral daily, Daliresp 1 Tablet (of 500 mcg) Oral daily, FLUoxetine HCl 1 Capsule (of 20 mg) Oral daily, Furosemide 1 Tablet (of 20 mg) Oral daily, hydrALAZINE HCl 1 Tablet (of 25 mg) Oral t.i.d., Irbesartan 1 Tablet (of 300 mg) Oral daily, Levothyroxine Sodium 1 Tablet (of 25 mcg) Oral daily, Metoprolol Succinate ER 1 Tablet (of 50 mg) Tablet SR 24 HR Oral b.i.d., Nitroglycerin 1 (0.4 mg) Tablet, sublingual Sublingual PRN, Omeprazole 1 Capsule (of 20 mg) Capsule Delayed Release Oral daily, rOPINIRole HCl 1 Tablet (of 1 mg) Oral daily, Spiriva Respimat 1 (1.25 mcg/act) Aerosol, solution Inhalation daily Allergies: Lisinopril and Sulfa Antibiotics. Social History: Ms. James is and she is an unknown. Ms. James quit smoking 14 years ago but had smoked for 30 years. She has no history of drinking. Ms. James reports the following support systems: lives with spouse, significant other, family, or friends, lives in own house, supportive family/friends willing to assist with needs, and adequate transportation available for expected visits. Her diet consists of regular meals. She indicates her activity level as: regular exercise. Family History: Ms. James's mother is alive. Ms. James's father at age 83: pulmonary embolism. Her paternal grandfather is : stomach cancer. Review Of Symptoms: Constitutional - Appetite is diminished and weight has slightly decreased. No fever, night sweats, or hot flashes. Energy level is poor, ENMT - No sinus congestion/drainage. No mouth sores. No sore throat or difficulty swallowing, Hematologic/Lymphatic - Positive for easy bruising, Respiratory - Positive for shortness of breath. No cough. No pleuritic pain or hemoptysis, Cardiovascular - No angina pain. No palpitations, Gastrointestinal - No nausea or vomiting. Positive for heartburn, no acid reflux. No diarrhea or constipation. No blood in the stool or black stools, Genitourinary (F) - No dysuria or hematuria. No urinary frequency. No urgency or incontinence, Musculoskeletal - No joint or bone pain, Neurologic - No headache or dizziness. No numbness or tingling. No other focal neurologic symptoms, Psychiatric - Positive for insomnia, no anxiety or depression. Vital Signs: Performed on Feb 06, 2020 14:23: 0, 18.12, 1.35 sq.m, 60.00 in, 97 %, 68 /min, 16 /min, 202/103 mm(hg) (HIGH), 98.5 F, and 92.8 lbs (HIGH). Performance Status: 0 - Fully active, able to carry on all predisease activities without restrictions. (ECOG) Physical Examination: ENMT - No mouth sores, no thrush, no jaundice, Respiratory - Lungs are clear, Cardiovascular - Regular rate and rhythm of heart, Abdomen - Soft, bowel sounds present, Extremities - No visible edema or rash. Lab/Imaging: Most recent lab results are not available for this patient. Impression: Normocytic/normochromic anemia etiology unclear could be multifactorial including but not limited to anemia of renal disease, anemia of chronic disease, considering her age and concurrent leukopenia underlying myelodysplasia cannot be ruled out. Or due to minerals deficiency like copper or zinc or hypothyroidism. Renal insufficiency COPD Plan: Discussed with patient regarding her labs white blood count 3.3 hemoglobin 9.2 hematocrit 28.2 platelets 168,000 with a normal differential and MCV 82.9 Clinically, patient is doing well she has well compensated mild/moderate anemia etiology could be multifactorial including but not limited to anemia of chronic renal disease, inflammation, nutritional, mineral deficiency, considering her age underlying myelodysplasia cannot be ruled out. At this point will consider basic anemia work-up to include reticulocyte count, peripheral blood smear, sed rate, serum protein electrophoresis, TSH, iron studies, B12 folic acid level, Copper and zinc level Patient return to clinic in 2 weeks with CBC and if above-mentioned work-up remained inconclusive then will consider bone marrow evaluation Signed By: Ade Ballesteros M.D. <<Signature on File>>
== END 2020-02-06 12:58 | disposition home or self-care (01) ==
LOC: ONCMED 13:01
PROVIDERS: PCP Nurse Practitioner Family; Referring Provider Nurse Practitioner Family; Visit Provider Internal Medicine Hematology & Oncology
DX: D64.9 Anemia, unspecified (principal); N28.9 Disorder of kidney and ureter, unspecified; J44.9 Chronic obstructive pulmonary disease, unspecified; Z87.891 Personal history of nicotine dependence
CPT/HCPCS: 80500; 82607; 82728; 82746; 83540; 83550; 84155; 84165; 84443; 85025; 85045; 99203

== ENCOUNTER 2020-02-15 21:36 | Emergency (ER) | payer MEDICAID, SELFPAY ==
[2020-02-15 21:37] VITALS: BP 199/102; PULSE 90; RESP 18; TEMP 36.7; O2SAT 97; BMI 17.9
--- NOTE | 2020-02-15 21:43 | CTR_ITS ---
PROCEDURE INFORMATION: Exam: CT Head Without Contrast Exam date and time: 02/15/2020 9:55 PM Age: 64 years old Clinical indication: Pain; Headache not specified; Additional info: GARCIA TECHNIQUE: Imaging protocol: Computed tomography of the head without contrast. Radiation optimization: All CT scans at this facility use at least one of these dose optimization techniques: automated exposure control; mA and/or kV adjustment per patient size (includes targeted exams where dose is matched to clinical indication); or iterative reconstruction. COMPARISON: CT head wo con* [id number] 09/10/2019 11:28 PM RADIATION DOSE METRICS: Total DLP (mGy-cm): 712.34 FINDINGS: Brain: There is mild diffuse cerebral atrophy. Patchy areas of hypoattenuation seen in the deep white matter of the cerebral hemispheres bilaterally compatible with mild deep white matter microvascular disease. Hypoattenuation seen within the junction of the anterior limb of the internal capsule and the external capsule on the left compatible with a chronic infarction. This appears stable compared with 09/10/2019. Ventricles: Normal. No ventriculomegaly. Bones/joints: Unremarkable. No acute fracture. Sinuses: Visualized sinuses are unremarkable. No fluid levels. Mastoid air cells: Visualized mastoid air cells are well aerated. Soft tissues: Unremarkable. CT/CT head wo con* [id number] IMPRESSION: There are no acute intracranial findings. Radiation Dose CTDIVOL = (mGy): DLP = 712.34 (mGy-cm)
--- NOTE | 2020-02-15 21:44 | ED_ITS ---
HPI - Headache General: Chief Complaint: Headache Stated Complaint: headache, hypertension, nausea Time Seen by Provider: 02/15/20 21:37 Source: patient and EMS Mode of arrival: EMS Limitations: no limitations History of Present Illness: HPI Narrative: 64-year-old female who has chronic hypertension along with chronic kidney disease. Patient states she saw her abrading machine tender yesterday who stopped some of her meds and increased hydralazine. States she has had increasing headaches and a high blood pressure since then. States her pressures today is been in the 200s. Blood pressure here is 190 and she states her headache is a 9 out of 10 currently. States that it started gradually let yesterday and is gotten worse. She does have a history of headaches and denies this being the worst headache of her life. She denies any vomiting or diarrhea. She still able to make urine. She denies any chest pain. Associated symptoms: Deny chest pain, fever(s), nausea, rash or vomiting Review of Systems Const: Denies: fever(s), chills, body aches or change in appetite Eyes: Denies: blurry vision or eye discomfort ENMT: Denies: throat pain or dental pain Card: Denies: chest pain Resp: Denies: dyspnea GI: Denies: abdominal pain, nausea, vomiting or diarrhea : Denies: dysuria Musc: Denies: neck pain or back pain Skin/Breast: Denies: rash Neuro: Reports: headache(s) Psych: Denies: depression Bill/Lymph: Denies: easy bruising All/Imm: Denies: urticaria PFSH ED PFSH: Medical History AAA (abdominal aortic aneurysm) Atypical chest pain COPD (chronic obstructive pulmonary disease) Endoleak post (EVAR) endovascular aneurysm repair Hypercholesteremia Hypertension Hypothyroidism Peripheral vascular disease Surgical History H/O: hysterectomy Hx of tonsillectomy S/P appendectomy Family History Other CAD (coronary artery disease) Hypertension Social History Smoking and tobacco status: former smoker Alcohol intake: never Physical Exam Const: COMMON NORMALS: no acute distress, patient oriented x3 and healthy appearing HENMT: COMMON NORMALS: normocephalic and atraumatic HEAD & SCALP: normocephalic and atraumatic Eye: COMMON NORMALS: Equal, round and reactive pupils present and EOMs intact bilaterally PUPIL: Yes Equal, round and reactive pupils present Neck/C-Spine: COMMON NORMALS: full ROM and supple Chest: COMMONS NORMALS: normal inspection of the chest and normal palpation of entire chest wall Resp: COMMON NORMALS: normal respiratory effort, No retractions, No use of accessory muscles and clear to auscultation bilaterally AUSCULTATION: clear to auscultation bilaterally Cardio: COMMON NORMALS: regular rate, regular rhythm and No murmurs present (Cardio) RATE: regular rate RHYTHM: regular rhythm GI: COMMON NORMALS: Normal to inspection, nondistended, normoactive bowel sounds present, Soft to palpation, non-tender and no masses PALPATION: Yes Soft to palpation Extremity: COMMON NORMALS: normal to inspection and full ROM Neuro: COMMON NORMALS: patient oriented x3, moves all extremities and no focal motor deficits Psych: COMMON NORMALS: mental status grossly normal, Normal thought process present and cooperative THOUGHT PROCESS: Normal thought process present Skin: COMMON NORMALS: no rashes or lesions noted and no wounds GENERAL SKIN EXAM: no rashes or lesions noted Course Vital Signs: Vital signs: Vital Signs Temperature 98.0 F 02/15/20 21:37 Pulse Rate 90 02/15/20 23:30 Respiratory Rate 18 02/15/20 23:30 Blood Pressure 166/94 02/15/20 23:30 Pulse Oximetry 98 02/15/20 23:30 MDM - Headache MDM Narrative: Medical decision making narrative: Talia presents here with headache along with high blood pressure. Patient's blood pressures like elevated due to change her medications. Her blood pressures improved here and she feels improved. Head CT is normal and she has no signs subarachnoid hemorrhage. Patient stable for discharge I will increase her metoprolol to 100 daily instead of 50. She is to follow-up with her PCP in 3 to 5 days. Lab Data: Labs: Lab Results 02/15/20 02/15/20 Range/Units 21:51 21:51 WBC 6.5 (4.0-10.0) 10^3/ uL RBC 3.49 L (4.1-5.3) 10^6/u L Hgb 9.5 L (11.5-15.3) g/dL Hct 30.9 L (37.0-47.0) % MCV 88.5 (81-99) fL MCH 27.2 L (28.0-34.0) pg MCHC 30.7 (30.0-36.0) g/dL RDW 18.5 H (12.1-15.1) % Plt Count 152 (130-400) 10^3/c mm MPV 9.5 (7.4-10.4) fL Neut % (Auto) 84.9 % Lymph % (Auto) 9.8 % [place] % (Auto) 4.5 % Eos % (Auto) 0.0 % Baso % (Auto) 0.3 % Neut # (Auto) 5.53 (1.8-7.7) 10^3/u L Lymph # (Auto) 0.6 L (0.8-4.8) 10^3/u L [place] # (Auto) 0.3 (0.2-0.9) 10^3/u L Eos # (Auto) 0.0 (0.0-0.8) 10^3/u L Baso # (Auto) 0.0 (0.0-0.1) 10^3/u L Nucleated RBC % (a uto) 0 % Nucleated RBCs # 0.0 /100WBC Sodium 131 L (136-145) mmol/L Potassium 4.4 (3.5-5.1) mmol/L Chloride 101 (98-107) mmol/L Carbon Dioxide 15 L (22-29) mmol/L Anion Gap 19.4 H (5-19) BUN 35 H (8-23) mg/dL Creatinine 2.5 H (0.5-0.9) mg/dL GFR Calculation 19.5 L (90-130) mL/min Glucose 86 (65-115) mg/dL Calculated Osmolal ity 269 L (285-295) mOsm/k g Calcium 9.1 (8.5-10.5) mg/dL Discharge Plan Discharge Patient Disposition: Home Clinical Impression: Tension headache, Hypertension Condition: Stable Prescriptions: New metoprolol succinate 100 mg tablet extended release 24 hr 100 mg PO DAILY Qty: 30 RF: 0 No Action nitroglycerin [Nitrostat] 0.4 mg tablet, sublingual 0.4 mg SUBLINGUAL Q5M PRN (Reason: Chest Pain) RF: 0 levothyroxine [Synthroid] 25 mcg tablet 25 mcg PO DAILY RF: 0 fluoxetine [Prozac] 20 mg capsule 20 mg PO DAILY RF: 0 albuterol sulfate 2.5 mg /3 mL (0.083 %) solution for nebulization 2.5 mg INHALATION QID RF: 0 Spiriva with HandiHaler 18 mcg capsule, w/inhalation device 1 cap INHALATION DAILY RF: 0 atorvastatin 20 mg tablet 30 mg PO DAILY RF: 0 buspirone 30 mg tablet 30 mg PO DAILY RF: 0 celecoxib [Celebrex] 200 mg capsule 200 mg PO DAILY RF: 0 roflumilast 500 mg PO DAILY RF: 0 omeprazole 20 mg capsule,delayed release(DR/EC) 20 mg PO DAILY RF: 0 ropinirole 1 mg tablet 1 mg PO DAILY RF: 0 Symbicort 160-4.5 mcg/actuation HFA aerosol inhaler 2 puff INHALATION BID RF: 0 furosemide [Lasix] 20 mg tablet 20 mg PO QAM 30 Days Qty: 30 RF: 2 metoprolol succinate 50 mg tablet extended release 24 hr 50 mg PO DAILY Qty: 90 RF: 3 aspirin 81 mg tablet,delayed release (DR/EC) 81 mg PO DAILY Qty: 30 RF: 0 irbesartan 300 mg tablet 300 mg PO DAILY Qty: 30 RF: 3 hydralazine 25 mg tablet 25 mg PO TID Qty: 90 RF: 6 Discharge Orders: Discharge Order (Routine); Ordered 02/15/20 Ordered By: Flo Mcknight Referrals: Nancy Carrasco FNP-C [Primary Care Provider] - 1-3 days Discharge Diet: Advance as tolerated Discharge Activity: Resume usual activity Patient Instructions: Acute Headache (ED), Hypertension (ED) Discharge Date/Time: 02/15/20 23:32 Coding Level of Care Code ED Switch Coupler for Chg Fwd Exam Comprehensive
[2020-02-15] MEDS: diphenhydrAMINE 50 mg/mL SDV 1mL IVP (21:49)
[2020-02-15] MEDS: metoclopramide 5 mg/mL SDV 2 mL 10 MG IVP (21:50)
[2020-02-15 22:05] LABS: Basophils % 0.3 %; Hematocrit 30.9 % (37.0-47.0); Hemoglobin 9.5 g/dL (11.5-15.3); Lymphocytes # 0.6 10^3/uL (0.8-4.8); Lymphocytes % 9.8 %; Mean Corpuscular HGB Conc 30.7 g/dL (30.0-36.0); Mean Corpuscular Hemoglobin 27.2 pg (28.0-34.0); Mean Corpuscular Volume 88.5 fL (81-99); Mean Platelet Volume 9.5 fL (7.4-10.4); Monocytes # 0.3 10^3/uL (0.2-0.9); Monocytes % 4.5 %; Neutrophils # 5.53 10^3/uL (1.8-7.7); Neutrophils % 84.9 %; Nucleated Red Blood Cells % 0 %; Platelet Count 152 10^3/cmm (130-400); Red Blood Count 3.49 10^6/uL (4.1-5.3); Red Cell Distribution Width 18.5 % (12.1-15.1); White Blood Count 6.5 10^3/uL (4.0-10.0)
[2020-02-15 22:22] LABS: Anion Gap 19.4 (5-19); Blood Urea Nitrogen 35 mg/dL (8-23); Calcium 9.1 mg/dL (8.5-10.5); Carbon Dioxide 15 mmol/L (22-29); Chloride 101 mmol/L (98-107); Glomerular Filtration Rate 19.5 mL/min (90-130); Glucose 86 mg/dL (65-115); Osmolality Calculated 269 mOsm/kg (285-295); Potassium 4.4 mmol/L (3.5-5.1); Sodium 131 mmol/L (136-145)
[2020-02-15 22:50] VITALS: BP 185/90; PULSE 86; RESP 18; O2SAT 99
[2020-02-15] MEDS: sodium chloride 0.9% 500 ML 999 ML IV (22:52)
[2020-02-15] MEDS: hyDRALAzine 20 mg/mL INJ 1 mL 10 MG IVP (22:52)
[2020-02-15 23:18] VITALS: RESP 18; O2SAT 97
[2020-02-15] MEDS: HYDROmorphone 1 mg/mL INJ 1 mL IVP (23:18)
[2020-02-15 23:30] VITALS: BP 166/94; PULSE 90; RESP 18; O2SAT 98
== END 2020-02-15 23:32 | disposition home or self-care (01) ==
PROVIDERS: Emergency Provider Emergency Medicine; PCP Nurse Practitioner Family
DX: G44.209 Tension-type headache, unspecified, not intractable (principal); I10 Essential (primary) hypertension; Z79.82 Long term (current) use of aspirin; J44.9 Chronic obstructive pulmonary disease, unspecified; Z87.891 Personal history of nicotine dependence
CPT/HCPCS: 12345; 70450; 80048; 85025; 96374; 96375; 99283; J0360; J1170; J1200; J2765; J7040

== ENCOUNTER 2020-02-19 09:56 | Outpatient (CLI) | payer MEDICAID, SELFPAY ==
--- NOTE | 2020-02-19 | USCV_ITS ---
Hali James Age: 64 Gender: F : 1955 Exam Date: 02/19/2020 10:26 Ordering Phys: Nancy Carrasco VALVING MACHINE OPERATOR-C Technologist: DUKE GAMA Exam Location: [facility] [place] Indication: PVD Risk Factors: Previous Vascular Surgery: RIGHT LEFT BP: 210.0 / BP: 214.0/ 0 0 Waveform Velocity (cm/s) Velocity (cm/s) Waveform Triphasic 100.5 Iliac Prox 101.5 Triphasic Triphasic 121.2 Iliac Mid 97.3 Triphasic Triphasic 104.9 Iliac Distal 90.8 Triphasic Biphasic 124.6 IN HOME SALES CONSULTANT 85.9 Triphasic Biphasic 88.9 SFA Prox 76.5 Biphasic Biphasic 112.5 SFA Mid 67.7 Biphasic Biphasic SFA Dist Biphasic 78.3 73.2 Biphasic 51.3 POP 62.1 Biphasic Biphasic 30.2 FORENSIC CHEMIST 58.1 Biphasic Biphasic 51.3 DPA 54.1 Biphasic FINDINGS BILATERAL BLAKE NOT DONE DUE TO HIGH BRACHIAL PRESSURES Patent arteries bilaterally. Biphasic Doppler waveforms in the arteries below the level of the mid SFA Minimal plaques in the iliac and femoral arteries bilaterally CONCLUSIONS Patent lower extremity arteries bilaterally. Abnormal arterial Doppler waveforms, may suggest arterial sclerosis. Possibly no significant arterial obstruction, based on the above findings Consider CTA/peripheral angiogram, to better evaluate the peripheral arteries, if clinically indicated Dr Guillermo Culver MD [facility] (Electronically Signed) Final Date: 19 February 2020 17:20 S
--- NOTE | 2020-02-19 10:15 | USCV_ITS ---
Hali James Age: 64 Gender: F : 1955 Exam Date: 02/19/2020 10:44 Ordering Phys: Edil Hill MD (And[place]) [email or web address] [place] Technologist: Tiffanie Miller Exam Location: [facility] [place] Indication: AAA HISTORY: Diameter (cm) AP x Transverse x Length Velocity (cm/s) Waveform Prox Aorta: 2.73 x 2.95 x 169.10 Mid Aorta: 2.48 x 2.98 x Distal Aorta: 1.79 x 2.12 x 81.80 Right Iliac Prox: 0.84 x 0.85 x 52.70 Left Iliac Prox: 0.82 x 1.05 x 52.60 Stent Prox Landing x x 148.30 Aneurysmal Sac Max 2.58 x 2.82 x 99.80 Lt Lat Sac Dim 0.40 Rt Lat Sac Dim 0.93 Stent Dist Landing x 76.20 x Right Iliac Stent x x 52.70 Left Iliac Stent x x 74.10 Right Renal Art 47.20 Left Renal Art 93.50 FINDINGS: Could not visulize proximal or distal landings clearly enough for measurements. No flow seen outside of the stent within the aneurysm. CONCLUSIONS Infrarenal aortic aneurysm sac measuring 2.58 x 2.82 cm. Patent aortic stent graft. The landing zones were not identified well. No evidence of endoleak No similar previous studies are available for comparison Dr Guillermo Culver MD [facility] (Electronically Signed) Final Date: 20 February 2020 17:25 S
== END 2020-02-19 09:57 | disposition home or self-care (01) ==
PROVIDERS: PCP Nurse Practitioner Family; Visit Provider Thoracic Surgery (Cardiothoracic Vascular Surgery)
DX: I71.4 Abdominal aortic aneurysm, without rupture (principal); I73.89 Other specified peripheral vascular diseases
CPT/HCPCS: 93925; 93978

== ENCOUNTER 2020-02-20 11:24 | Outpatient (CLI) | payer MEDICAID, SELFPAY ==
[2020-02-20 12:14] LABS: Basophils % 0.6 %; Hematocrit 27.7 % (37.0-47.0); Hemoglobin 9.3 g/dL (11.5-15.3); Lymphocytes # 0.8 10^3/uL (0.8-4.8); Lymphocytes % 25.5 %; Mean Corpuscular HGB Conc 33.6 g/dL (30.0-36.0); Mean Corpuscular Hemoglobin 28.4 pg (28.0-34.0); Mean Corpuscular Volume 84.5 fL (81-99); Mean Platelet Volume 9.8 fL (7.4-10.4); Monocytes # 0.3 10^3/uL (0.2-0.9); Monocytes % 7.7 %; Neutrophils # 2.13 10^3/uL (1.8-7.7); Neutrophils % 65.6 %; Nucleated Red Blood Cells % 0 %; Platelet Count 210 10^3/cmm (130-400); Red Blood Count 3.28 10^6/uL (4.1-5.3); Red Cell Distribution Width 18.2 % (12.1-15.1); White Blood Count 3.3 10^3/uL (4.0-10.0)
--- NOTE | 2020-02-21 16:26 | ONC FU_ITS ---
Dr. Ballesteros follow up note Patient: Hali James Unit #: [id number]: [id number] Dicatated By: Ade Ballesteros M.D.Date of Visit:Feb 20, 2020 Onc Med Follow-up/Prog Note History of Present Illness: Ms. Hali James, is a 64-year-old female with a history of anemia. As per patient, first time she was diagnosed with anemia was not 2014 or , at that time she was given oral iron supplement for 5 or 6 months with that anemia was resolved until recently when her routine lab work-up done on January 30, 2020 showed white blood count 3.4, hemoglobin 9.2 g hematocrit 27.9 platelets 171,000 MCV 85 and CMP showed creatinine 2, and anemia work-up including iron studies showed iron 53, iron saturation 29.2, TIBC 181 ferritin 113, bilirubin 0.2, stool for occult blood was negative Patient denies any history of blood transfusion, patient had colonoscopy done at age 62 it was unremarkable but not sure about EGD Patient has history of hysterectomy and bilateral oophorectomy at age 22 for incompetent cervix. Patient denies any jaundice, denies any melena or hematochezia, denies any hemoptysis or hematemesis, denies any night sweats, denies any abdominal fullness, denies any peripheral lymphadenopathy. Denies any bony pain denies any weight loss. Came for follow-up, denies any specific complaints, no fever chills, no nausea vomiting, no diarrhea or constipation no melena or hematochezia, no jaundice, no palpitation or shortness of breath. Medications: Albuterol Sulfate (sensor) 1 Puff(s) (of 108 (90 base) mcg/act) Aerosol Powder, Breath Activated Inhalation daily, Aspirin 1 Tablet (of 81 mg) Tablet, enteric coated Oral daily, Atorvastatin Calcium 1 Tablet (of 30 mg) Oral daily, Budesonide-Formoterol Fumarate 1 Puff(s) (of 160-4.5 mcg/act) Aerosol Inhalation daily, busPIRone HCl 1 Tablet (of 30 mg) Oral daily, Celecoxib 1 Capsule (of 200 mg) Oral daily, Daliresp 1 Tablet (of 500 mcg) Oral daily, FLUoxetine HCl 1 Capsule (of 20 mg) Oral daily, Furosemide 1 Tablet (of 20 mg) Oral daily, hydrALAZINE HCl 1 Tablet (of 100 mg) Oral t.i.d., Irbesartan 1 Tablet (of 300 mg) Oral daily, Isosorbide Mononitrate ER 1 Tablet (of 30 mg) Tablet SR 24 HR Oral daily, Levothyroxine Sodium 1 Tablet (of 25 mcg) Oral daily, Metoprolol Succinate ER 1 Tablet (of 100 mg) Tablet SR 24 HR Oral b.i.d., Nitroglycerin 1 (0.4 mg) Tablet, sublingual Sublingual PRN, Omeprazole 1 Capsule (of 20 mg) Capsule Delayed Release Oral daily, rOPINIRole HCl 1 Tablet (of 1 mg) Oral daily, Spiriva Respimat 1 (1.25 mcg/act) Aerosol, solution Inhalation daily Allergies: Lisinopril and Sulfa Antibiotics. Review of Systems: Constitutional - Appetite is diminished and weight has slightly decreased. No fever, night sweats, or hot flashes. Energy level is poor, ENMT - No sinus congestion/drainage. No mouth sores. No sore throat or difficulty swallowing, Hematologic/Lymphatic - Positive for easy bruising, Respiratory - Positive for shortness of breath. No cough. No pleuritic pain or hemoptysis, Cardiovascular - No angina pain. No palpitations, Gastrointestinal - No nausea or vomiting. Positive for heartburn, no acid reflux. No diarrhea or constipation. No blood in the stool or black stools, Genitourinary (F) - No dysuria or hematuria. No urinary frequency. No urgency or incontinence, Musculoskeletal - No joint or bone pain, Neurologic - No headache or dizziness. No numbness or tingling. No other focal neurologic symptoms, Psychiatric - Positive for insomnia, no anxiety or depression. Vital Signs: Performed on Feb 20, 2020 12:46 Height - 60.00 in Weight - 89.4 lbs (LOW) BSA - 1.33 sq.m BMI - 17.46 (LOW) Temperature - 97.4 F (LOW) Pulse - 73 /min Respiration - 18 /min BP - 200/92 mm(hg) (HIGH) O2 Sat - 97 % Pain - 0 Performance Status: 0 - Fully active, able to carry on all predisease activities without restrictions. (ECOG) Physical Examination: ENMT - No mouth sores, no thrush, no jaundice, Respiratory - Lungs are clear, Cardiovascular - Regular rate and rhythm of heart, Abdomen - Soft, bowel sounds present, Extremities - No visible edema or rash. Lab/Imaging: Test performed on Feb 06, 2020 13:10 Ferritin 116 ng/mL Iron 64 mcg/dL TSH 6.93 uIU/mL Vitamin B12 1206 pg/mL Iron Binding Capacity (TIBC) 202 mcg/dl % Iron Saturation 31.6 % UIBC 138 mcg/dL WBC 3.3 10 3/uL RBC 3.40 10 6/uL HGB 9.2 g/dL HCT 28.2 % MCV 82.9 fL MCH 27.1 pg MCHC 32.6 g/dL RDW 17.7 % Platelet Count 168 10 3/cmm MPV 10.2 fL Neutrophils 1.35 10 3/uL Lymphocytes 1.6 10 3/uL Monocytes 0.3 10 3/uL Eosinophils 0.0 10 3/uL Basophils 0.0 10 3/uL Neutrophil % 41.3 % Lymphocyte % 48.3 % Monocyte % 9.8 % Eosinophil % 0.0 % Basophils % 0.3 % NRBC % 0 % Impression: Normocytic/normochromic anemia etiology unclear could be multifactorial including but not limited to anemia of renal disease, anemia of chronic disease, considering her age and concurrent leukopenia underlying myelodysplasia cannot be ruled out. Or due to minerals deficiency like copper or zinc or hypothyroidism. Renal insufficiency COPD Plan: Discussed with patient regarding her labs white blood count 3.3 hemoglobin 9.3 hematocrit 27.7 platelets 210,000 MCV 84.5 ferritin 116, iron saturation 31.6, iron 64, vitamin B12 1206, TSH 6.93, which is elevated. Serum protein electrophoresis done on February 06, 2020 showed no restricted M protein seen. Clinically, patient is doing reasonably well with no new signs symptoms or follow-up labs shows Persistent mild/moderate normocytic anemia but well compensated and her anemia work-up is inconclusive e.g. iron studies and B12 levels within normal range, SPEP shows no abnormality, at this point , will check a copper/zinc level and also increase her Synthroid dose to 37.5 mcg from 25 mcg as her TSH is elevated e.g. suboptimal thyroid supplements. She will return to clinic in 1 month with CBC and TSH and if with normalization of TSH e.g. with sufficient thyroid supplement, and copper / zinc level within normal range, her CBC still shows persistent anemia, will consider bone marrow evaluation to rule out underlying myelodysplasia or other bone marrow disorder. Signed By: Ade Ballesteros M.D. <<Signature on File>>
[2020-02-23 19:04] LABS: Copper Level 129 mcg/dL (70-175); Zinc Level, Serum or Plasma 67 mcg/dL (60-130)
== END 2020-02-20 11:25 | disposition home or self-care (01) ==
LOC: ONCMED 11:26
PROVIDERS: PCP Nurse Practitioner Family; Visit Provider Internal Medicine Hematology & Oncology
DX: D64.9 Anemia, unspecified (principal); E60 Dietary zinc deficiency; E61.0 Copper deficiency; E03.9 Hypothyroidism, unspecified; N28.9 Disorder of kidney and ureter, unspecified; J44.9 Chronic obstructive pulmonary disease, unspecified
CPT/HCPCS: 82525; 84630; 85025; 99214

== ENCOUNTER 2020-02-21 19:10 | Emergency (ER) | payer MEDICAID, SELFPAY ==
[2020-02-21 19:10] VITALS: BP 195/90; PULSE 77; RESP 17; TEMP 36.9; O2SAT 99; BMI 17.4
--- NOTE | 2020-02-21 19:25 | W.ED.GENADLT ---
HPI - General Adult General: Chief complaint: General Medical Stated complaint: garcia/ dehydration/ hypertension Time Seen by Provider: 02/21/20 19:12 Source: patient and EMS Mode of arrival: EMS Limitations: no limitations History of Present Illness: HPI narrative: Patient is a 64-year-old female who presents to ED today with complaints of a headache that has been present over the past 2 days. Patient tells me she has a history of headaches but is not sure if they are migraine headaches are related to her uncontrolled hypertension. Patient tells me she has suffered from uncontrolled hypertension for at least the last two months stating her BP has been running in the 190s-200s systolic. Patient has a history of renal artery stenosis. She does tell me she was seen by her angle shearer Dr. Jarrell last week. Patient tells me her headache today feels like her headaches previously. She states this is not the worst headache of her life. Patient has recently followed up with her water filter cleaner Dr. Culver (2 days ago) who she states is the main provider taking care of her hypertension. BP during her visit with him was 200/108 and 198/110. Patient is having sensitivity to light and sound. Again patient has had many blood pressure med changes recently and they are as followed to the best of my knowledge: 01/14 patient's amlodipine was increased from 5 mg to 10 mg 01/29 patient's amlodipine was discontinued due to lower extremity swelling; she was started on Lasix 02/13 patient's hydralazine was increased by Dr. Jarrell; another medication stopped? 02/14 patient's metoprolol was increased from 50 mg to 100 mg daily 02/18 patient's hydralazine was increased to 100 mg 3 times daily Associated symptoms: Reports headache(s) and nausea; Deny chest pain, dyspnea, malaise, rash, palpitations, syncope or vomiting Review of Systems Const: Denies: fever(s), chills, body aches, fatigue or malaise Eyes: Reports: photophobia; Denies: change in vision, blurry vision, floaters or seeing flashes ENMT: Denies: odynophagia Card: Denies: chest pain, palpitations, irregular heart rhythm, lightheadedness, syncope or dyspnea on exertion Resp: Denies: dyspnea, productive cough, pain on inspiration or chest congestion GI: Reports: nausea; Denies: abdominal pain, vomiting, heartburn, diarrhea, change in bowel habits or change in stool character : Denies: flank pain, difficulty voiding, dysuria, urinary frequency, urinary urgency, urinary hesitancy or oliguria Musc: Denies: neck pain, back pain or joint pain Skin/Breast: Denies: rash Neuro: Reports: headache(s); Denies: numbness in extremities, weakness in extremities or sensory changes PFSH ED PFSH: Medical History (Updated 02/21/20 @ 22:40 by LIZETTE Coon) AAA (abdominal aortic aneurysm) Atypical chest pain Chronic kidney disease COPD (chronic obstructive pulmonary disease) Endoleak post (EVAR) endovascular aneurysm repair Hypercholesteremia Hypertension Hypothyroidism Peripheral vascular disease Surgical History H/O: hysterectomy Hx of tonsillectomy S/P appendectomy Family History Other CAD (coronary artery disease) Hypertension Social History Smoking and tobacco status: former smoker Alcohol intake: never Physical Exam Const: COMMON NORMALS: average body habitus, patient oriented x3, no limitations, healthy appearing, alert and well nourished GENERAL APPEARANCE: in distress (towel over her eyes due to her GARCIA) ORIENTATION/CONSCIOUSNESS: Yes oriented to person, Yes oriented to place and Yes oriented to time HENMT: COMMON NORMALS: normocephalic and atraumatic HEAD & SCALP: normal to inspection, normocephalic and atraumatic FACE & SINUS: normal facial exam and sinuses nontender Eye: COMMON NORMALS: Equal, round and reactive pupils present, EOMs intact bilaterally and conjunctivae normal GENERAL EYE: appearance normal, both eyes and all related structures CONJUNCTIVA: Yes conjunctivae normal PUPIL: Yes Equal, round and reactive pupils present Neck/C-Spine: COMMON NORMALS: full ROM, no lymphadenopathy and no meningeal signs Resp: COMMON NORMALS: normal respiratory effort and clear to auscultation bilaterally AUSCULTATION: clear to auscultation bilaterally Cardio: COMMON NORMALS: regular rate and regular rhythm RATE: regular rate RHYTHM: regular rhythm Extremity: COMMON NORMALS: normal to inspection Neuro: JAZZ COMA SCALE: document GCS findings Jazz coma scale eye opening: Spontaneous Jazz coma scale verbal response: Orientated Martin coma scale motor response: Obey commands Jazz coma scale total score: 15 COMMON NORMALS: patient oriented x3, CN's II-XII intact bilaterally, no focal motor deficits and no sensory deficits noted SENSORIUM/ORIENTATION: Yes alert, Yes oriented to person, Yes oriented to place and Yes oriented to time MENINGEAL SIGNS: Yes no meningeal signs Skin: COMMON NORMALS: no rashes or lesions noted GENERAL SKIN EXAM: no rashes or lesions noted Course Vital Signs: Vital signs: Vital Signs Temperature 98.4 F 02/21/20 19:10 Pulse Rate 78 02/21/20 23:44 Respiratory Rate 18 02/21/20 23:44 Blood Pressure 148/75 02/21/20 23:44 Pulse Oximetry 98 02/21/20 23:44 MDM - General Adult MDM Narrative: Medical decision making narrative: Patient here with complaints of chronic hypertension that is been fairly uncontrolled over the past 2 months. Patient has been following up with her primary care provider, angle shearer, and water filter cleaner for these complaints. She tells me she only has one functioning kidney-again this is being managed by Dr. Jarrell. Patient also had a complaint of a headache upon arrival. She has been having headaches intermittently for months most likely related to her blood pressures. Patient was seen at our facility approximately a week ago and had a negative CT performed. Patient just recently saw her water filter cleaner Dr. Culver. Blood pressures upon that visit were very elevated as well. She is taking lasix, hydralazine, and metoprolol for her blood pressure. GARCIA here has been successfully treated. BP remains elevated. I will increase her metoprolol from 100mg QD to BID. Information placed with CM to get her back into Dr. Culver to see if any further adjustments to her medications is indicated. Lab Data: Labs: Lab Results 02/21/20 02/21/20 Range/Units 19:30 19:30 WBC 4.8 (4.0-10.0) 10^3/ uL RBC 3.00 L (4.1-5.3) 10^6/u L Hgb 8.3 L (11.5-15.3) g/dL Hct 25.4 L (37.0-47.0) % MCV 84.7 (81-99) fL MCH 27.7 L (28.0-34.0) pg MCHC 32.7 (30.0-36.0) g/dL RDW 18.3 H (12.1-15.1) % Plt Count 205 (130-400) 10^3/c mm MPV 9.2 (7.4-10.4) fL Neut % (Auto) 86.6 % Lymph % (Auto) 8.7 % [place] % (Auto) 4.1 % Eos % (Auto) 0.0 % Baso % (Auto) 0.4 % Neut # (Auto) 4.17 (1.8-7.7) 10^3/u L Lymph # (Auto) 0.4 L (0.8-4.8) 10^3/u L [place] # (Auto) 0.2 (0.2-0.9) 10^3/u L Eos # (Auto) 0.0 (0.0-0.8) 10^3/u L Baso # (Auto) 0.0 (0.0-0.1) 10^3/u L Nucleated RBC % (a uto) 0 % Nucleated RBCs # 0.0 /100WBC Sodium 126 L (136-145) mmol/L Potassium 4.4 (3.5-5.1) mmol/L Chloride 95 L (98-107) mmol/L Carbon Dioxide 17 L (22-29) mmol/L Anion Gap 18.4 (5-19) BUN 37 H (8-23) mg/dL Creatinine 2.5 H (0.5-0.9) mg/dL GFR Calculation 19.5 L (90-130) mL/min Glucose 83 (65-115) mg/dL Calculated Osmolal ity 259 L (285-295) mOsm/k g Calcium 8.8 (8.5-10.5) mg/dL Total Bilirubin 0.2 (0.15-1.2) mg/dL AST 14 (0-32) U/L ALT 7 (0-33) U/L Alkaline Phosphata se 64 (35-105) IU/L Total Protein 6.7 (6.6-8.7) g/dL Albumin 3.8 (3.5-5.2) g/dL Globulin 2.9 (1.3-4.6) g/dL Discharge Plan Discharge Patient Disposition: Home Clinical Impression: Hypertension, uncontrolled Condition: Stable Prescriptions: Changed metoprolol succinate 100 mg tablet extended release 24 hr 100 mg PO BID Qty: 60 RF: 0 No Action nitroglycerin [Nitrostat] 0.4 mg tablet, sublingual 0.4 mg SUBLINGUAL Q5M PRN (Reason: Chest Pain) RF: 0 levothyroxine [Synthroid] 25 mcg tablet 25 mcg PO DAILY RF: 0 albuterol sulfate 2.5 mg /3 mL (0.083 %) solution for nebulization 2.5 mg INHALATION QID PRN (Reason: Shortness Of Breath) RF: 0 Spiriva with HandiHaler 18 mcg capsule, w/inhalation device 1 cap INHALATION DAILY RF: 0 atorvastatin 20 mg tablet 30 mg PO DAILY RF: 0 buspirone 30 mg tablet 30 mg PO BID PRN (Reason: unknown) RF: 0 omeprazole 20 mg capsule,delayed release(DR/EC) 20 mg PO DAILY RF: 0 ropinirole 1 mg tablet 1 mg PO DAILY RF: 0 Symbicort 160-4.5 mcg/actuation HFA aerosol inhaler 2 puff INHALATION BID RF: 0 furosemide [Lasix] 20 mg tablet 20 mg PO QAM 30 Days Qty: 30 RF: 2 isosorbide mononitrate 30 mg tablet extended release 24 hr 30 mg PO DAILY 30 Days Qty: 30 RF: 5 hydralazine 100 mg tablet 100 mg PO TID 30 Days Qty: 90 RF: 5 aspirin 81 mg tablet,delayed release (DR/EC) 81 mg PO DAILY Qty: 30 RF: 0 Celexa 40 mg Tablet 40 mg PO DAILY RF: 0 rizatriptan 10 mg tablet 10 mg PO PRN RF: 0 Singulair 10 mg Tablet 10 mg PO DAILY RF: 0 Flonase Allergy Relief 50 mcg/actuation [place],Suspension 2 spray INTRANASAL DAILY PRN (Reason: unknown) RF: 0 Daliresp 500 mcg Tablet 500 mcg PO DAILY RF: 0 Discharge Orders: Discharge Order (Routine); Ordered 02/21/20 Ordered By: Margaret Araujo Referrals: Nancy Carrasco FNP-C [Primary Care Provider] - Patient Instructions: Chronic Hypertension (ED), Hypertensive Crisis (ED), Hypertension (ED) Activity Restrictions/Additional Instructions: Please return to the emergency department for worsening headache, visual changes, chest pain, shortness of breath, difficulty breathing, worsening high blood pressure, or any other concerns you may have. Case management should contact you tomorrow to set you up with a follow-up appointment with Dr. Culver for further evaluation of your hypertension. We will increase your metoprolol from 100 mg daily to 100 mg twice daily. Discharge Date/Time: 02/21/20 23:45 Coding Level of Care Code ED Operations And Maintenance Manager for Chg Fwd Exam Comprehensive
[2020-02-21] MEDS: diphenhydrAMINE 50 mg/mL SDV 1mL IVP (19:32)
[2020-02-21 19:35] LABS: Basophils % 0.4 %; Hematocrit 25.4 % (37.0-47.0); Hemoglobin 8.3 g/dL (11.5-15.3); Lymphocytes # 0.4 10^3/uL (0.8-4.8); Lymphocytes % 8.7 %; Mean Corpuscular HGB Conc 32.7 g/dL (30.0-36.0); Mean Corpuscular Hemoglobin 27.7 pg (28.0-34.0); Mean Corpuscular Volume 84.7 fL (81-99); Mean Platelet Volume 9.2 fL (7.4-10.4); Monocytes # 0.2 10^3/uL (0.2-0.9); Monocytes % 4.1 %; Neutrophils # 4.17 10^3/uL (1.8-7.7); Neutrophils % 86.6 %; Nucleated Red Blood Cells % 0 %; Platelet Count 205 10^3/cmm (130-400); Red Cell Distribution Width 18.3 % (12.1-15.1); White Blood Count 4.8 10^3/uL (4.0-10.0)
[2020-02-21 19:37] VITALS: RESP 18; O2SAT 100
[2020-02-21] MEDS: HYDROmorphone 1 mg/mL INJ 1 mL IVP (19:37)
[2020-02-21] MEDS: hyDRALAzine 20 mg/mL INJ 1 mL 5 MG IVP (19:40)
[2020-02-21 19:52] LABS: Alanine Aminotransferase 7 U/L (0-33); Albumin Level 3.8 g/dL (3.5-5.2); Alkaline Phosphatase 64 IU/L (35-105); Anion Gap 18.4 (5-19); Aspartate Amino Transferase 14 U/L (0-32); Blood Urea Nitrogen 37 mg/dL (8-23); Calcium 8.8 mg/dL (8.5-10.5); Carbon Dioxide 17 mmol/L (22-29); Chloride 95 mmol/L (98-107); Globulin 2.9 g/dL (1.3-4.6); Glomerular Filtration Rate 19.5 mL/min (90-130); Glucose 83 mg/dL (65-115); Osmolality Calculated 259 mOsm/kg (285-295); Potassium 4.4 mmol/L (3.5-5.1); Sodium 126 mmol/L (136-145); Total Bilirubin 0.2 mg/dL (0.15-1.2); Total Protein 6.7 g/dL (6.6-8.7)
[2020-02-21] MEDS: valproic acid inj 500 MG in sodium chloride 0.9% 50 ML 55 MG IV (21:15)
[2020-02-21] MEDS: metoclopramide 5 mg/mL SDV 2 mL 10 MG IVP (23:35)
[2020-02-21 23:44] VITALS: BP 148/75; PULSE 78; RESP 18; O2SAT 98
--- NOTE | 2020-02-22 09:08 | DCPLANNER ---
Addendum entered by Julia Gaitan 03/19/20 14:41: Patient returned case manager phone call, patient did not make her appointment, due to being in hospital. machining manager called [facility], spoke with Amairani and rescheduled appointment for Tuesday, March 24, 2020 at 10:15 with [employer], Kelly Cooper. machining manager called patient and informed patient of the scheduled appointment. Original Note: machining manager had message to schedule a follow up appointment for patient with [facility]. machining manager called [facility], spoke with Gemini, a follow up appointment was scheduled for Saturday, March 07, 2020 at 9:30 with [employer], Kelly Cooper. machining manager will call patient with appointment information.
--- NOTE | 2020-03-20 07:55 | DCPLANNER ---
Patient had a follow up appointment scheduled for 03.07.20 with [facility] - appointment cancelled due to patient being in hospital.
--- NOTE | 2020-03-27 14:38 | DCPLANNER ---
Patient had a follow up appointment scheduled with [facility] for 03.24.20 with REIKI PRACTITIONERKelly - patient did attend appointment.
== END 2020-02-21 23:45 | disposition home or self-care (01) ==
PROVIDERS: Emergency Provider Physician Assistant; PCP Nurse Practitioner Family
DX: I10 Essential (primary) hypertension (principal); Z79.82 Long term (current) use of aspirin; J44.9 Chronic obstructive pulmonary disease, unspecified; I73.9 Peripheral vascular disease, unspecified; Z87.891 Personal history of nicotine dependence
CPT/HCPCS: 12345; 80053; 85025; 96365; 96366; 96375; 99281; 99283; J0360; J1170; J1200; J2765

== ENCOUNTER 2020-02-27 21:16 | Inpatient (IN) | payer MEDICAID, SELFPAY ==
[2020-02-27 21:17] VITALS: BP 180/99; PULSE 87; RESP 18; TEMP 36.8; O2SAT 99; BMI 17.4
--- NOTE | 2020-02-27 21:22 | XR_ITS ---
WS: [id number] EXAM: AP CHEST: PORTABLE UPRIGHT DATE OF EXAM: 02/27/2020, 2139 hours COMPARISON: Chest x-ray from 09/10/2019. HISTORY: Patient is 64 years old with shortness of breath for the last 3 days. History of COPD.. FINDINGS: The cardiac silhouette is normal in size. The mediastinal contours are similar. Calcified plaque i n the aorta. The pulmonary vascularity is normal. Chronic lung changes are seen with hyperinflatio n. Some degree of fibrosis again demonstrated. Lungs are clear of consolidation. There is no effusio n or pneumothorax. Endovascular stenting seen in the lower midline chest region. XR/XR chest 1V portable [id number] IMPRESSION: Chronic lung changes with slight hyperinflation and fibrosis. No acute consolid ating infiltrate.
--- NOTE | 2020-02-27 21:22 | ECG_ITS ---
[facility] Test Date: 2020-02-27 Pat Name: Hali James Department: Room: Gender: Female Data Processing Mechanic: : 1955 Requested By: Flo Mcknight Order Number: [id number] Wil MD: Guillermo Culver M.D. Measurements Intervals [place] Rate: 78 P: 81 MI: 108 QRS: 88 QRSD: 72 T: 78 QT: 420 QTc: 478 Interpretive Statements SINUS RHYTHM WITH SHORT MI INTERVAL LEFT VENTRICULAR HYPERTROPHY AND ST-T CHANGE [VOLTAGE CRITERIA PLUS ST/T ABNORMALITY] Compared to ECG 09/11/2019 00:01:53 Short MI interval now present Left ventricular hypertrophy now present ST (T wave) deviation now present Prolonged QT interval no longer present Electronically Signed On 02-28-2020 22:41:20 CDT by Guillermo Culver M.D. [id number]
--- NOTE | 2020-02-27 21:24 | ED_ITS ---
HPI - SOB/Dyspnea General: Chief Complaint: Shortness of Breath/Dyspnea Stated Complaint: SOB Time Seen by Provider: 02/27/20 21:17 Source: patient and EMS Mode of arrival: EMS Limitations: no limitations History of Present Illness: HPI Narrative: Chance 64-year-old female has a long history of COPD. States she had increasing shortness of breath over the last 2 to 3 days. She is on 2 L at baseline here is 98% on 2 L. States she has had increased wheezing. States she has had some slight leg swelling has not been taking her Lasix. Denies any fever. Denies any cough. Associated symptoms: Deny abdominal pain, chest pain, fever(s), nausea or vomiting Review of Systems Const: Denies: fever(s), chills, body aches or change in appetite Eyes: Denies: blurry vision or eye discomfort ENMT: Denies: throat pain or dental pain Card: Denies: chest pain Resp: Reports: dyspnea GI: Denies: abdominal pain, nausea, vomiting or diarrhea : Denies: dysuria Musc: Denies: neck pain or back pain Skin/Breast: Denies: rash Neuro: Denies: headache(s) Psych: Denies: depression Bill/Lymph: Denies: easy bruising All/Imm: Denies: urticaria PFSH ED PFSH: Medical History (Updated 02/27/20 @ 22:46 by Flo Mcknight MD) AAA (abdominal aortic aneurysm) Atypical chest pain Chronic kidney disease COPD (chronic obstructive pulmonary disease) Endoleak post (EVAR) endovascular aneurysm repair Hypercholesteremia Hypertension Hypothyroidism Peripheral vascular disease Surgical History H/O: hysterectomy Hx of tonsillectomy S/P appendectomy Family History Other CAD (coronary artery disease) Hypertension Social History Smoking and tobacco status: former smoker Alcohol intake: never Physical Exam Const: COMMON NORMALS: no acute distress, patient oriented x3 and healthy appearing HENMT: COMMON NORMALS: normocephalic and atraumatic HEAD & SCALP: normocephalic and atraumatic Eye: COMMON NORMALS: Equal, round and reactive pupils present and EOMs intact bilaterally PUPIL: Yes Equal, round and reactive pupils present Neck/C-Spine: COMMON NORMALS: full ROM and supple Chest: COMMONS NORMALS: normal inspection of the chest and normal palpation of entire chest wall Resp: COMMON NORMALS: normal respiratory effort, No retractions and No use of accessory muscles AUSCULTATION: wheezes and diminished lung sounds Cardio: COMMON NORMALS: regular rate, regular rhythm and No murmurs present (Cardio) RATE: regular rate RHYTHM: regular rhythm GI: COMMON NORMALS: Normal to inspection, nondistended, normoactive bowel sounds present, Soft to palpation, non-tender and no masses PALPATION: Yes Soft to palpation Extremity: COMMON NORMALS: normal to inspection and full ROM Neuro: COMMON NORMALS: patient oriented x3, moves all extremities and no focal motor deficits Psych: COMMON NORMALS: mental status grossly normal, Normal thought process present and cooperative THOUGHT PROCESS: Normal thought process present Skin: COMMON NORMALS: no rashes or lesions noted and no wounds GENERAL SKIN EXAM: no rashes or lesions noted Course Vital Signs: Vital signs: Vital Signs Temperature 98.2 F 02/27/20 21:17 Pulse Rate 81 02/27/20 22:19 Respiratory Rate 18 02/27/20 22:14 Blood Pressure 173/90 02/27/20 21:53 Pulse Oximetry 99 02/27/20 22:14 MDM - SOB/Dyspnea MDM Narrative: Medical decision making narrative: 64-year-old female who presents here with dyspnea. She is much improved after breathing treatments and IV steroids. She has a long history of COPD and CHF. Her BNP is elevated here. Patient is also hyponatremic with a sodium level of 122. I spoke to hospitalist and will admit at this time. Lab Data: Labs: Lab Results 02/27/20 02/27/20 02/27/20 Range/Units 20:26 20:26 20:26 WBC 5.7 (4.0-10.0) 10^3/ uL RBC 3.12 L (4.1-5.3) 10^6/u L Hgb 8.7 L (11.5-15.3) g/dL Hct 26.4 L (37.0-47.0) % MCV 84.6 (81-99) fL MCH 27.9 L (28.0-34.0) pg MCHC 33.0 (30.0-36.0) g/dL RDW 18.5 H (12.1-15.1) % Plt Count 225 (130-400) 10^3/c mm MPV 10.0 (7.4-10.4) fL Neut % (Auto) 82.4 % Lymph % (Auto) 11.6 % [place] % (Auto) 5.3 % Eos % (Auto) 0.0 % Baso % (Auto) 0.2 % Neut # (Auto) 4.71 (1.8-7.7) 10^3/u L Lymph # (Auto) 0.7 L (0.8-4.8) 10^3/u L [place] # (Auto) 0.3 (0.2-0.9) 10^3/u L Eos # (Auto) 0.0 (0.0-0.8) 10^3/u L Baso # (Auto) 0.0 (0.0-0.1) 10^3/u L Nucleated RBC % (a uto) 0 % Nucleated RBCs # 0.0 /100WBC PT 13.30 (12.1-14.9) SECO NDS INR 0.98 (0.8-1.2) Sodium 122 L (136-145) mmol/L Potassium 3.9 (3.5-5.1) mmol/L Chloride 92 L (98-107) mmol/L Carbon Dioxide 20 L (22-29) mmol/L Anion Gap 13.9 (5-19) BUN 42 H (8-23) mg/dL Creatinine 2.0 H (0.5-0.9) mg/dL GFR Calculation 25.2 L (90-130) mL/min Glucose 115 (65-115) mg/dL Calculated Osmolal ity 253 L (285-295) mOsm/k g Calcium 9.0 (8.5-10.5) mg/dL Total Bilirubin 0.2 (0.15-1.2) mg/dL AST 19 (0-32) U/L ALT 7 (0-33) U/L Alkaline Phosphata se 58 (35-105) IU/L NT-Pro-B Natriuret Pep 12833 H (0-125) pg/mL Total Protein 6.9 (6.6-8.7) g/dL Albumin 3.4 L (3.5-5.2) g/dL Globulin 3.5 (1.3-4.6) g/dL Imaging Data^: CXR: Attestation: I personally reviewed and interpreted this imaging study as follows: My impression: no acute abnormality EKG Data^: EKG 1: Attestation: I personally reviewed and interpreted this EKG as follows: EKG Interpretation Date: 02/27/20 EKG interpretation time: 22:13 Interpretation: nsr hr [address] or t wave abnormalities qrs 72 qtc 453 Discharge Plan Discharge Patient Disposition: Admitted As Inpatient Clinical Impression: Hyponatremia COPD (chronic obstructive pulmonary disease) Qualifiers: COPD type: unspecified COPD Qualified Code(s): J44.9 - Chronic obstructive pulmonary disease, unspecified Congestive heart failure Qualifiers: Heart failure type: unspecified Heart failure chronicity: acute on chronic Qualified Code(s): I50.9 - Heart failure, unspecified Condition: Stable Referrals: Nancy Carrasco FNP-C [Primary Care Provider] - Coding Level of Care Code ED Director Of Financial Planning for Chg Fwd Exam Comprehensive
[2020-02-27 21:53] VITALS: BP 173/90; PULSE 80; RESP 22; O2SAT 100
[2020-02-27] MEDS: morphine 4 mg/mL SDV 1 mL IVP (21:53)
[2020-02-27] MEDS: FUROsemide 10 mg/mL SDV 4mL 40 MG IVP ×2 (21:53→23:41)
[2020-02-27] MEDS: ondansetron 2 mg/ML SDV 2 mL 4 MG IVP (21:54)
[2020-02-27 21:57] LABS: Basophils % 0.2 %; Hematocrit 26.4 % (37.0-47.0); Hemoglobin 8.7 g/dL (11.5-15.3); Lymphocytes # 0.7 10^3/uL (0.8-4.8); Lymphocytes % 11.6 %; Mean Corpuscular Hemoglobin 27.9 pg (28.0-34.0); Mean Corpuscular Volume 84.6 fL (81-99); Monocytes # 0.3 10^3/uL (0.2-0.9); Monocytes % 5.3 %; Neutrophils # 4.71 10^3/uL (1.8-7.7); Neutrophils % 82.4 %; Nucleated Red Blood Cells % 0 %; Platelet Count 225 10^3/cmm (130-400); Red Blood Count 3.12 10^6/uL (4.1-5.3); Red Cell Distribution Width 18.5 % (12.1-15.1); White Blood Count 5.7 10^3/uL (4.0-10.0)
[2020-02-27 22:03] LABS: INR 0.98 (0.8-1.2)
[2020-02-27 22:13] LABS: Alanine Aminotransferase 7 U/L (0-33); Albumin Level 3.4 g/dL (3.5-5.2); Alkaline Phosphatase 58 IU/L (35-105); Anion Gap 13.9 (5-19); Aspartate Amino Transferase 19 U/L (0-32); Blood Urea Nitrogen 42 mg/dL (8-23); Carbon Dioxide 20 mmol/L (22-29); Chloride 92 mmol/L (98-107); Globulin 3.5 g/dL (1.3-4.6); Glomerular Filtration Rate 25.2 mL/min (90-130); Glucose 115 mg/dL (65-115); Osmolality Calculated 253 mOsm/kg (285-295); Potassium 3.9 mmol/L (3.5-5.1); Sodium 122 mmol/L (136-145); Total Bilirubin 0.2 mg/dL (0.15-1.2); Total Protein 6.9 g/dL (6.6-8.7)
[2020-02-27 22:14] VITALS: PULSE 80; RESP 18; O2SAT 99
[2020-02-27] MEDS: ipratropium-albuterol 3 mL Neb INHALATION (22:14)
[2020-02-27 22:19] VITALS: PULSE 81
[2020-02-27 22:35] LABS: NT Pro B Type Natriuretic Pept 39700 pg/mL (0-125)
--- NOTE | 2020-02-27 22:56 | P.HP_ITS ---
Providers/Chief Complaint Primary Care Provider: HERBERT Masters Chief Complaint: SOB History of Present Illness Hali James is a 64 year old female with history of chronic kidney disease, oxygen dependent COPD, bilateral renal artery stenosis with left renal atrophy, infrarenal abdominal aortic aneurysm status post repair, right ICA aneurysm, coming in with chief complaint of shortness of breath. Patient is stating that for last 3 days she has been experiencing shortness of breath on mild activities, she is endorsing orthopnea, PND, she uses 2 L of oxygen [id number], does not smoke or drink alcohol, she is denying fever, excessive sputum production, sinusitis, chills, myalgias. She is stating that she experienced one episode of chest heaviness which was radiating towards her back between her shoulders which improved with morphine which he got in the ER. He did not experience any nausea, vomiting, diarrhea, dysuria. She has not noticed any weakness in her extremities. She has not been taking Lasix at home although it has been listed in her home meds. Patient is stating that she has lost significant amount of weight which was unintentional. Diagnosis in the ER revealed congestive heart failure exacerbation with high BNP 29,000, sodium 122, patient saturating well on 2 L nasal cannula, hypertensive urgency with diastolic about 110, currently chest pain-free, she had received Lasix and IV antihypertensives EKG shows short [place] interval normal sinus rhythm, LVH criteria no ischemic or infarct changes, troponin not significantly high Chronically disease creatinine seems to be around baseline She has received morphine 4 mg, Lasix 40 mg IV twice, Review of Systems Const: Reports: body aches and fatigue; Denies: fever(s) or chills Eyes: Denies: change in vision ENMT: Denies: throat pain Card: Reports: chest pain, dyspnea on exertion and orthopnea; Denies: palpitations, irregular heart rhythm or swelling of feet/ankles Resp: Reports: dyspnea and non-productive cough GI: Denies: abdominal pain, nausea, vomiting or bloating : Denies: flank pain Musc: Denies: neck pain Skin/Breast: Denies: rash Neuro: Denies: headache(s) Psych: Reports: anxiety Endo: Denies: polyuria Bill/Lymph: Denies: easy bruising All/Imm: Denies: urticaria Medications/Allergies Home Medications Medication Instructions Recorded Confirmed Last Taken Type albuterol sulfate 2.5 mg INHALATION QID PRN 07/24/19 02/21/20 01/29/20 History atorvastatin 20 mg tablet 30 mg PO DAILY tab 07/24/19 02/21/20 01/29/20 History budesonide-formoterol HFA 160 2 puff INHALATION BID 07/24/19 02/21/20 01/29/20 History mcg-4.5 mcg/actuation aerosol inhaler buspirone 30 mg tablet 30 mg PO BID PRN tab 07/24/19 02/21/20 01/29/20 History levothyroxine 25 mcg tablet 25 mcg PO DAILY tab 07/24/19 02/21/20 02/21/20 History 50 mcg nitroglycerin 0.4 mg sublingual 0.4 mg SUBLINGUAL Q5M PRN 07/24/19 02/21/20 02/21/20 History tablet omeprazole 20 mg capsule,delayed 20 mg PO DAILY cap 07/24/19 02/21/20 02/21/20 History release ropinirole 1 mg tablet 1 mg PO DAILY tab 07/24/19 02/21/20 01/29/20 History tiotropium bromide 18 mcg capsule 1 cap INHALATION DAILY inh 07/24/19 02/21/20 01/29/20 History with inhalation device aspirin 81 mg tablet,delayed 81 mg PO DAILY #30 tab 11/06/19 02/21/20 02/21/20 Rx release furosemide 20 mg tablet 20 mg PO QAM 30 Days #30 tab 01/30/20 02/21/20 02/21/20 Rx hydralazine 100 mg tablet 100 mg PO TID 30 Days #90 tab 02/19/20 02/21/20 02/21/20 Rx isosorbide mononitrate 30 mg 30 mg PO DAILY 30 Days #30 tab 02/19/20 02/21/20 02/21/20 Rx tablet,extended release 24 hr citalopram [Celexa] 40 mg PO DAILY 02/21/20 02/21/20 02/21/20 History fluticasone propionate [Flonase 2 spray INTRANASAL DAILY PRN 02/21/20 02/21/20 Unknown History Allergy Relief] metoprolol succinate 100 mg PO BID #60 tab 02/21/20 Unknown Rx montelukast [Singulair] 10 mg PO DAILY 02/21/20 02/21/20 02/21/20 History rizatriptan 10 mg PO PRN 02/21/20 02/21/20 02/21/20 History roflumilast [Daliresp] 500 mcg PO DAILY 02/21/20 02/21/20 02/21/20 History Allergies Allergy/AdvReac Type Severity Reaction Status Date / Time lisinopril Allergy anaphylaxis Verified 02/21/20 20:14 Sulfa (Sulfonamide Allergy unknown Verified 02/21/20 20:14 Antibiotics) PFSH Acute PFSH: Medical History AAA (abdominal aortic aneurysm) 4.1 x 4.4 x 5.7 cm 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 Atypical chest pain Chronic kidney disease COPD (chronic obstructive pulmonary disease) Endoleak post (EVAR) endovascular aneurysm repair History of stent insertion of renal artery Hypercholesteremia Hypertension Hypothyroidism Normal colonoscopy Peripheral vascular disease Surgical History H/O: hysterectomy History of repair of aneurysm of abdominal aorta using endovascular stent graft Hx of tonsillectomy S/P appendectomy Family History Other CAD (coronary artery disease) Hypertension Social History Smoking and tobacco status: former smoker Alcohol intake: never Vitals/I&O/Wt Last Vital Signs Temp 98.2 F 02/27/20 21:17 Pulse 81 02/27/20 22:19 Resp 18 02/27/20 22:14 BP 173/90 02/27/20 21:53 Pulse Ox 99 02/27/20 22:14 Weight last 48 hrs Weight 40.37 kg Physical Exam Narrative: EXAM NARRATIVE: Patient sitting comfortably in her bed Saturating well on 2 L nasal cannula Afebrile Diastolic 110 mmHg Chest pain-free, Clinically very mild signs of CHF, positive JVD no lower extremity edema, She looks underweight and malnourished Abdomen soft nontender nondistended bowel sound present EOMI, PERRLA No neurological deficit She appears anxious with appropriate affect No lower extremity edema gangrene ulcer Lungs are clear to auscultation Data : 02/27/20 20:26 02/27/20 20:26 A&P Assessment and plan (1) Congestive heart failure: Status: Acute Qualifiers: Heart failure chronicity: acute on chronic Heart failure type: unspecified Qualified Code(s): I50.9 - Heart failure, unspecified (2) Hyponatremia: Status: Acute (3) Chronic kidney disease: Status: Acute (4) Peripheral vascular disease: Status: Acute (5) Hypertension: Status: Acute Qualifiers: Hypertension type: essential hypertension Qualified Code(s): I10 - Essential (primary) hypertension (6) COPD (chronic obstructive pulmonary disease): Status: Chronic Qualifiers: COPD type: unspecified COPD Qualified Code(s): J44.9 - Chronic obs tructive pulmonary disease, unspecified (7) Hypertensive urgency: Status: Acute Additional A&P Information Preserved ejection fraction heart failure mild exacerbation BNP 29,000, chest x-ray showed mild vascular congestion, Currently she is at her baseline 2 L nasal cannula saturating well, she is not tachycardic, No active chest pain, troponin not severely high She complained of one episode of chest discomfort which was radiating towards her shoulder blades, I do suspect hypertensive episodes to be the cause of her symptoms, for persistent hypertension I would use Cardene drip to keep her blood pressure between 1 20-1 30s, I would be reluctant to order CTA chest to rule out aortic dissection (she carries low risk for PE) because of her abnormal creatinine, will obtain echo in the morning, previous echo showed preserved ejection fraction about 70% doubt diastolic dysfunction EKG not showing any ischemic or infarctive changes I would use Bumex 1 mg and monitor urine output Hyponatremia with intravascular congestion Sodium was 126 few days back currently sodium 122 BNP 29,000 Clinically very mild signs of CHF Monitor sodium level fluctuation with diuresis No neurological signs and symptoms Chronic kidney disease Her creatinine seems to be around baseline No active dysuria or complaint of urine retention Patient has been taken off losartan, she had anaphylactic reaction to lisinopril in the past Follows up with Dr. Jarrell Has stent in her right renal artery, left atrophied kidney secondary to renal artery stenosis Oxygen dependent COPD Uses 2 L of oxygen at home She has quit smoking I would continue her inhaler regimen, no active wheezing or respiratory stress Full code Cardiac diet DVT prophylaxis Heparin Attestations Medical Necessity Statement*: I am anticipating stay to cross more than 2 midnights, currently need IV Cardene drip for hypertensive urgency, need diuresis for her symptoms, echo in the morning, severe hyponatremia seems to be secondary to intravascular congestion Time Spent in Patient Care: (>than 50% of time spent in counselling and/or direct pt care on unit) . 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
[2020-02-27 23:23] VITALS: BP 172/108; PULSE 85; RESP 18; O2SAT 99
[2020-02-28] VITALS (24 sets, daily range): BP systolic 121–169; BP diastolic 64–100; PULSE 72–88; RESP 12–22; TEMP 36.4–36.8; O2SAT 95–99
--- NOTE | 2020-02-28 00:37 | USCV_ITS ---
Hali James Age: 64 Gender: F : 1955 Exam Date: 02/28/2020 06:28 Ordering Phys: Ruperto Mejia MD Technologist: Ligia Dodd [place] [facility] [place]: CHF EXACERBATION BP: 147 / 84 HR: 75 Rhythm: Technical Quality: Adequate MEASUREMENTS (Male / Female) Normal Values 2D ECHO LV Diastolic Diameter PLAX 4.0 cm 4.2 - 5.9 / 3.9 - 5.3 cm LV Systolic Diameter PLAX 3.1 cm LV Chamber Size 3.6 cm IVS Diastolic Thickness 1.0 cm 0.6 - 1.0 / 0.6 - 0.9 cm IVS Systolic Thickness 1.2 cm LVPW Diastolic Thickness 1.0 cm 0.6 - 1.0 / 0.6 - 0.9 cm LVPW Systolic Thickness 1.3 cm RV Chamber Size 2.4 cm LVOT Diameter 2.0 cm LV Ejection Fraction 2D Teich 46.6 % LV Ejection Fraction MOD 2C 28.8 % LV Ejection Fraction 2C AL 25.0 % LA Diameter 3.2 cm LA Width 3.0 cm LA Height 3.5 cm RA Width 2.4 cm RA Height 3.2 cm Aorta at Sinotubular Diameter 2.8 cm M-MODE LV Diastolic Diameter MM 5.0 cm 4.2 - 5.9 / 3.9 - 5.3 cm LV Systolic Diameter MM 3.5 cm LV Ejection Fraction MM Teich 56.0 % IVS Diastolic Thickness MM 1.1 cm 0.6 - 1.0 / 0.6 - 0.9 cm IVS Systolic Thickness MM 1.3 cm LVPW Diastolic Thickness MM 1.1 cm 0.6 - 1.0 / 0.6 - 0.9 cm LVPW Systolic Thickness MM 1.2 cm RV Diastolic Diameter MM 0.9 cm Aortic Annulus Diameter 2.6 cm LA Ao Ratio MM 1.2 MV E Point Septal Separation 0.5 cm DOPPLER AV Peak Velocity 127.0 cm/s LVOT Peak Velocity 79.0 cm/s AV Area Cont Eq vti 2.1 cm squared AV Area Cont Eq pk 2.0 cm squared MV Area PHT 7.9 cm squared MV E' Velocity 8.0 cm/s Mitral E to MV E' Ratio 16.7 Mitral E to LV E' Lateral Ratio 15.7 Mitral E to LV E' Septal Ratio 17.9 TR Peak Velocity 257.0 cm/s TR Peak Gradient 26.4 mmHg TR Mean Velocity 191.2 cm/s TR Mean Gradient 17.0 mmHg TR Velocity Time Integral 88.4 cm TV Peak E Velocity 71.0 cm/s Right Atrial Pressure 3.0 mmHg Pulmonary Artery Systolic Pressu 29.4 mmHg PV Peak Velocity 67.0 cm/s RV Acceleration Time 0.1 s RV Ejection Time 0.3 s RV AcT/ET 0.3 FINDINGS Left Ventricle Normal left ventricular cavity size. Normal left ventricular systolic function. No regional wall motion abnormalities. Left ventricular ejection fraction is estimated at 56 %. In the presence of atrial fibrillation diastolic function cannot be assessed accurately. Right Ventricle The right ventricle is normal in size and function. RVSP could not be calculated due to incomplete tricuspid regurgitation velocity profile. Right Atrium The right atrium is normal in size. Left Atrium The left atrium is normal in size. Mitral Valve Moderately thickened mitral valve. No mitral valve stenosis. Moderate mitral valve regurgitation. Aortic Valve Moderate aortic valve calcification. Mild aortic valve stenosis, mean gradient 3 mmHg, LAZARA 2.1 cm squared. Trace aortic valve regurgitation. Tricuspid Valve Structurally normal tricuspid valve without significant stenosis or regurgitation. Pulmonic Valve Structurally normal pulmonic valve without significant stenosis. There is no pulmonic regurgitation. Pericardium Normal pericardium without effusion. Aorta Normal ascending aorta dimension. CONCLUSIONS 1-Normal left ventricular cavity size. Normal left ventricular systolic function. No regional wall motion abnormalities. Left ventricular ejection fraction is estimated at 56 %. In the presence of atrial fibrillation diastolic function cannot be assessed accurately. 2-Moderate aortic valve calcification. Mild aortic valve stenosis, mean gradient 3 mmHg, LAZARA 2.1 cm squared. Trace aortic valve regurgitation. 3-The right ventricle is normal in size and function. RVSP could not be calculated due to incomplete tricuspid regurgitation velocity profile. 4-There is no pericardial effusion. 5-Right atrial pressure is around 5 mm of mercury. 6-When compared to the prior echocardiogram dated 11/22/2017 there is worsening of mitral valve regurgitation from trace to moderate now there is also appear to be mild aortic valve stenosis now. Ruperto Corea MD (Electronically Signed) Final Date: 28 February 2020 20:46 S
[2020-02-28] MEDS: nicardipine 20 MG/200 ML PREMIX 50 MG IV (01:10)
[2020-02-28] MEDS: heparin 5,000 unit/mL INJ 1 mL 5000 UNIT SUBCUT ×3 (01:10→20:25)
--- NOTE | 2020-02-28 02:03 | PC.NURSE ---
pt arrived to floor, started on cardene gtt appx. 0100 for bp 160/100, cardene turned on at 0200, bp 112/61, pt resting in bed, A&OX4, respirations even and unlabored, O2 at 3L NC, denies pain or needs at this time, clwr
[2020-02-28] MEDS: atorvastatin 40 mg Tablet PO (09:25)
[2020-02-28] MEDS: montelukast sodium 10 mg Tablet PO (09:25)
[2020-02-28] MEDS: aspirin 81 mg EC Tablet PO (09:25)
[2020-02-28] MEDS: roflumilast 500 mcg Tablet PO (09:25)
[2020-02-28] MEDS: pantoprazole DR 40 mg Tablet PO (09:25)
[2020-02-28] MEDS: hyDRALAzine 50 mg Tablet 100 MG PO ×3 (09:25→20:25)
[2020-02-28] MEDS: citalopram 20 mg Tablet 40 MG PO (09:25)
[2020-02-28] MEDS: levothyroxine 25 mcg Tablet PO (09:26)
[2020-02-28] MEDS: ropinirole 1 mg Tablet PO (09:26)
[2020-02-28] MEDS: bumetanide 1 mg Tablet PO (09:26)
[2020-02-28] MEDS: metoprolol succinate ER (24 HR) 100 mg Tablet PO ×2 (09:27→17:38)
[2020-02-28] MEDS: isosorbide mononitrate ER 60 mg Tablet PO (09:35)
[2020-02-28 09:46] LABS: Troponin T (5th) Once 33 ng/L (0-10)
--- NOTE | 2020-02-28 12:17 | PM.PN ---
Subjective Subjective: Interval history: History and physical was reviewed. Patient reports her blood pressure is better than it was yesterday. She is less short of breath. Did report chest discomfort on admission but none currently. Vitals/I&O/Wt Last Vital Signs Temp 97.7 F 02/28/20 10:55 Pulse 78 02/28/20 10:55 Resp 16 02/28/20 10:55 BP 169/91 02/28/20 10:55 Pulse Ox 98 02/28/20 10:55 02/27/20 02/28/20 02/28/20 22:59 06:59 14:59 Intake Total 240 / 240 Output Total 200 / 200 500 / 500 Balance -200 / -200 -260 / -260 Weight last 48 hrs Weight 40.37 kg Physical Exam Narrative: EXAM NARRATIVE: General exam is no apparent distress Cardiovascular regular rate and rhythm with a 2/6 systolic murmur Lungs clear but with diminished breath sounds bilaterally Abdomen is soft with positive bowel sounds Extremities no cyanosis or clubbing. Trace edema is present. Data : 02/27/20 20:26 02/27/20 20:26 A&P Assessment and plan (1) Hypertensive urgency: She was placed on Cardene last night for hypertensive urgency. This is been tapered off. Today her blood pressure is still elevated. I will increase her isosorbide, following her blood pressures closely. She did have chest discomfort as a complaint when she came in so we will check her troponin on admission, and repeat 1 now. Status: Acute (2) Hyponatremia: Sodium 122 on presentation. Will repeat. May need fluid restriction. Status: Acute (3) Congestive heart failure: Continue Bumex, initiated by handle and vent machine operator. This will be an increase to her regular diuretic of Lasix 20 mg daily. Await echocardiogram Status: Acute Qualifiers: Heart failure chronicity: acute on chronic Heart failure type: unspecified Qualified Code(s): I50.9 - Heart failure, unspecified (4) Chronic kidney disease: Continue to follow renal function closely Hold ARB as renal function had worsened Has known renal artery stenosis. Status: Acute (5) Peripheral vascular disease: Status: Acute (6) Hypertension: See notations regarding hypertensive urgency above Status: Acute Qualifiers: Hypertension type: essential hypertension Qualified Code(s): I10 - Essential (primary) hypertension (7) COPD (chronic obstructive pulmonary disease): Currently stable with no evidence of exacerbation Oxygen dependent Status: Chronic Qualifiers: COPD type: unspecified COPD Qualified Code(s): J44.9 - Chronic obstructive pulmonary disease, unspecified Additional A&P Information Full code DVT prophylaxis with heparin Attestations Medical Necessity Statement*: Needs continued hospital stay for adjustment of blood pressure medication secondary to hypertensive urgency Coding Level of Care Code 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
[2020-02-28 12:57] LABS: Basophils % 0.4 %; Hemoglobin 7.8 g/dL (11.5-15.3); Lymphocytes # 0.3 10^3/uL (0.8-4.8); Lymphocytes % 13.2 %; Mean Corpuscular HGB Conc 32.5 g/dL (30.0-36.0); Mean Corpuscular Hemoglobin 27.9 pg (28.0-34.0); Mean Corpuscular Volume 85.7 fL (81-99); Mean Platelet Volume 9.7 fL (7.4-10.4); Monocytes % 1.7 %; Neutrophils # 1.96 10^3/uL (1.8-7.7); Neutrophils % 83.8 %; Nucleated Red Blood Cells % 0 %; Platelet Count 175 10^3/cmm (130-400); Red Cell Distribution Width 18.4 % (12.1-15.1); White Blood Count 2.3 10^3/uL (4.0-10.0)
[2020-02-28 13:22] LABS: Alanine Aminotransferase 7 U/L (0-33); Albumin Level 3.2 g/dL (3.5-5.2); Alkaline Phosphatase 52 IU/L (35-105); Anion Gap 17.7 (5-19); Aspartate Amino Transferase 13 U/L (0-32); Blood Urea Nitrogen 46 mg/dL (8-23); Calcium 8.7 mg/dL (8.5-10.5); Carbon Dioxide 20 mmol/L (22-29); Chloride 94 mmol/L (98-107); Glomerular Filtration Rate 23.9 mL/min (90-130); Glucose 172 mg/dL (65-115); Osmolality Calculated 266 mOsm/kg (285-295); Potassium 4.7 mmol/L (3.5-5.1); Sodium 127 mmol/L (136-145); Total Bilirubin 0.2 mg/dL (0.15-1.2); Total Protein 6.2 g/dL (6.6-8.7)
[2020-02-28 13:23] LABS: Troponin T (5th) Once 19 ng/L (0-10)
[2020-02-28] MEDS: ondansetron 2 mg/ML SDV 2 mL 4 MG IVP (13:48)
[2020-02-28] MEDS: sennosides-docusate Tablet 1 TAB PO (17:38)
--- NOTE | 2020-02-28 19:42 | PC.NURSE ---
Patient complaint of headache upon rounding. Dr. Mejia ordered 650mg of Tylenol Q6 PRN as needed for pain. Will continue to monitor.
[2020-02-28] MEDS: acetaminophen 325 mg Tablet 650 MG PO (20:25)
[2020-02-29] VITALS (14 sets, daily range): BP systolic 148–167; BP diastolic 76–103; PULSE 71–86; RESP 14–21; TEMP 36.6–36.9; O2SAT 94–98
[2020-02-29 05:00] LABS: Basophils % 0.2 %; Hematocrit 21.2 % (37.0-47.0); Hemoglobin 6.8 g/dL (11.5-15.3); Lymphocytes % 15.8 %; Mean Corpuscular HGB Conc 32.1 g/dL (30.0-36.0); Mean Corpuscular Hemoglobin 27.6 pg (28.0-34.0); Mean Corpuscular Volume 86.2 fL (81-99); Mean Platelet Volume 10.3 fL (7.4-10.4); Monocytes # 0.4 10^3/uL (0.2-0.9); Monocytes % 6.1 %; Neutrophils # 4.82 10^3/uL (1.8-7.7); Neutrophils % 77.4 %; Nucleated Red Blood Cells % 0 %; Platelet Count 174 10^3/cmm (130-400); Red Blood Count 2.46 10^6/uL (4.1-5.3); Red Cell Distribution Width 18.7 % (12.1-15.1); White Blood Count 6.2 10^3/uL (4.0-10.0)
[2020-02-29 05:24] LABS: Anion Gap 14.6 (5-19); Blood Urea Nitrogen 50 mg/dL (8-23); Calcium 9.1 mg/dL (8.5-10.5); Carbon Dioxide 22 mmol/L (22-29); Chloride 99 mmol/L (98-107); Glomerular Filtration Rate 20.5 mL/min (90-130); Glucose 103 mg/dL (65-115); Osmolality Calculated 270 mOsm/kg (285-295); Potassium 4.6 mmol/L (3.5-5.1); Sodium 131 mmol/L (136-145)
--- NOTE | 2020-02-29 07:30 | PC.NURSE ---
Patient resting in bed at time of assessment. Patient states that she doesn't feel good overall this morning. Patient states that she does not have much of an appetite. Patient reports that she has not had a BM and requests Miralax to aide in BM. Request to be relayed to physician.
[2020-02-29] MEDS: aspirin 81 mg EC Tablet PO (09:18)
[2020-02-29] MEDS: citalopram 20 mg Tablet 40 MG PO (09:18)
[2020-02-29] MEDS: roflumilast 500 mcg Tablet PO (09:18)
[2020-02-29] MEDS: montelukast sodium 10 mg Tablet PO (09:18)
[2020-02-29] MEDS: hyDRALAzine 50 mg Tablet 100 MG PO ×3 (09:18→21:20)
[2020-02-29] MEDS: sennosides-docusate Tablet 1 TAB PO ×2 (09:19→18:44)
[2020-02-29] MEDS: levothyroxine 25 mcg Tablet PO (09:19)
[2020-02-29] MEDS: atorvastatin 40 mg Tablet PO (09:20)
[2020-02-29] MEDS: metoprolol succinate ER (24 HR) 100 mg Tablet PO ×2 (09:20→18:44)
[2020-02-29] MEDS: ropinirole 1 mg Tablet PO (09:20)
[2020-02-29] MEDS: isosorbide mononitrate ER 60 mg Tablet PO (09:21)
[2020-02-29] MEDS: pantoprazole DR 40 mg Tablet PO (09:21)
[2020-02-29] MEDS: sodium chloride 0.9% (100 ml) 100 ML (11:43)
[2020-02-29] MEDS: polyethylene glycol 3350 Pkt 17 gm PO ×2 (11:43→18:45)
[2020-02-29] MEDS: acetaminophen 325 mg Tablet 650 MG PO ×2 (12:34→18:43)
--- NOTE | 2020-02-29 12:40 | P.PN_ITS ---
Subjective Subjective: Interval history: Talia reports she feels better. No chest discomfort. Medications: Reviewed: Yes Vitals/I&O/Wt Last Vital Signs Temp 97.8 F 02/29/20 12:19 Pulse 81 02/29/20 12:19 Resp 19 H 02/29/20 12:19 BP 165/97 02/29/20 12:19 Pulse Ox 97 02/29/20 11:55 02/28/20 02/29/20 02/29/20 22:59 06:59 14:59 Intake Total 360 / 720 250 / 970 240.017 / 240.017 Output Total 200 / 800 350 / 1150 Balance 160 / -80 -100 / -180 240.017 / 240.017 Weight last 48 hrs Weight 40.37 kg Physical Exam Narrative: EXAM NARRATIVE: General exam is no apparent distress Cardiovascular regular rate and rhythm with a 2/6 systolic murmur Lungs clear but with diminished breath sounds bilaterally Abdomen is soft with positive bowel sounds Extremities no cyanosis or clubbing. Trace edema is present. Data : 02/29/20 04:25 02/29/20 04:25 A&P Assessment and plan (1) Hypertensive urgency: She was placed on Cardene last night for hypertensive urgency. This is been tapered off. Blood pressure is improved on higher doses of her isosorbide She did have chest discomfort as a complaint when she came in. Evaluation of troponins did not demonstrate evidence for cardial infarction. Status: Acute (2) Hyponatremia: Sodium level improved Status: Acute (3) Congestive heart failure: Hold Bumex dose today. Reevaluate tomorrow Await echocardiogram Echocardiogram demonstrated normal EF, mild aortic stenosis, moderate mitral regurgitation Status: Acute Qualifiers: Heart failure chronicity: acute on chronic Heart failure type: unspecified Qualified Code(s): I50.9 - Heart failure, unspecified (4) Chronic kidney disease: Continue to follow renal function closely Hold ARB as renal function had worsened Has known renal artery stenosis. Renal function overall stable but concerned with further aggressive diuresis as she appears euvolemic. Holding Bumex today. Will determine appropriate dose tomorrow. Status: Acute (5) Peripheral vascular disease: Status: Acute (6) Hypertension: See notations regarding hypertensive urgency above Status: Acute Qualifiers: Hypertension type: essential hypertension Qualified Code(s): I10 - Essential (primary) hypertension (7) COPD (chronic obstructive pulmonary disease): Currently stable with no evidence of exacerbation Oxygen dependent Status: Chronic Qualifiers: COPD type: unspecified COPD Qualified Code(s): J44.9 - Chronic obstructive pulmonary disease, unspecified Additional A&P Information Anemia. She is symptomatic with significant shortness of breath with exertion. Will transfuse 1 unit. Check stool Hemoccult. Suspect this is secondary to her chronic kidney disease. Full code DVT prophylaxis with heparin Potential discharge tomorrow Attestations Medical Necessity Statement*: Needs continued hospitalization for close follow-up of significant anemia. 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
--- NOTE | 2020-02-29 16:20 | PC.NURSE ---
Patient reports having a headache. Cool rag applied to forehead and room darkened per patient request. nurse to continue to monitor.
--- NOTE | 2020-02-29 17:16 | PC.RESP ---
PULMONARY REHAB INFORMATION SENT TO PATIENT.
--- NOTE | 2020-02-29 18:34 | PC.NURSE ---
Nurse clarified post blood transfusion H/H lab draw with Dr. Porras. Physician orders for labs to be drawn in the morning. No new orders received.
--- NOTE | 2020-02-29 18:51 | PC.NURSE ---
Patient states cool rag helped initially but now headache has gotten worse. Tylenol administered as patient states this helped before. Patient also requested a warm rag as this sometimes helps, she states. Nurse to continue to monitor.
[2020-03-01] VITALS (11 sets, daily range): BP systolic 144–174; BP diastolic 81–117; PULSE 68–82; RESP 14–19; TEMP 36.6–36.8; O2SAT 88–99
[2020-03-01 05:41] LABS: Basophils % 0.5 %; Hematocrit 26.9 % (37.0-47.0); Hemoglobin 8.6 g/dL (11.5-15.3); Lymphocytes # 0.8 10^3/uL (0.8-4.8); Lymphocytes % 14.4 %; Mean Corpuscular Hemoglobin 27.2 pg (28.0-34.0); Mean Corpuscular Volume 85.1 fL (81-99); Mean Platelet Volume 9.7 fL (7.4-10.4); Monocytes # 0.3 10^3/uL (0.2-0.9); Monocytes % 5.5 %; Neutrophils # 4.57 10^3/uL (1.8-7.7); Neutrophils % 79.1 %; Nucleated Red Blood Cells % 0 %; Platelet Count 190 10^3/cmm (130-400); Red Blood Count 3.16 10^6/uL (4.1-5.3); Red Cell Distribution Width 19.2 % (12.1-15.1); White Blood Count 5.8 10^3/uL (4.0-10.0)
[2020-03-01 06:07] LABS: Anion Gap 11.6 (5-19); Blood Urea Nitrogen 49 mg/dL (8-23); Calcium 8.5 mg/dL (8.5-10.5); Carbon Dioxide 23 mmol/L (22-29); Chloride 102 mmol/L (98-107); Glomerular Filtration Rate 30.5 mL/min (90-130); Glucose 82 mg/dL (65-115); Osmolality Calculated 271 mOsm/kg (285-295); Potassium 4.6 mmol/L (3.5-5.1); Sodium 132 mmol/L (136-145)
[2020-03-01] MEDS: levothyroxine 25 mcg Tablet PO (09:53)
[2020-03-01] MEDS: metoprolol succinate ER (24 HR) 100 mg Tablet PO ×2 (09:53→18:12)
[2020-03-01] MEDS: aspirin 81 mg EC Tablet PO (09:54)
[2020-03-01] MEDS: pantoprazole DR 40 mg Tablet PO (09:54)
[2020-03-01] MEDS: montelukast sodium 10 mg Tablet PO (09:54)
[2020-03-01] MEDS: roflumilast 500 mcg Tablet PO (09:54)
[2020-03-01] MEDS: sennosides-docusate Tablet 2 TAB PO (09:54)
[2020-03-01] MEDS: polyethylene glycol 3350 Pkt 17 gm PO ×2 (09:54→18:12)
[2020-03-01] MEDS: atorvastatin 40 mg Tablet PO (09:54)
[2020-03-01] MEDS: isosorbide mononitrate ER 60 mg Tablet PO (09:54)
[2020-03-01] MEDS: ropinirole 1 mg Tablet PO (09:54)
[2020-03-01] MEDS: citalopram 20 mg Tablet 40 MG PO (09:55)
[2020-03-01] MEDS: hyDRALAzine 50 mg Tablet 100 MG PO ×3 (09:55→20:12)
[2020-03-01] MEDS: ondansetron 2 mg/ML SDV 2 mL 4 MG IVP (10:50)
--- NOTE | 2020-03-01 10:54 | PC.NURSE ---
PATIENT NAUSEATED AND HEAVING ; ZOFRAN GIVEN
--- NOTE | 2020-03-01 11:20 | PC.CHAP ---
Pastoral Care Encounter/Spiritual Assessment Type of Contact [] Declined watermaster visit [] Patient/Family/Request visit [] Outpatient visit [] Follow-up visit [] Physician referral [] Code/Alert [X] Routine visit [] Staff referral [] Actively dying [X] Patient sleeping [] Family support [] [] Out of room [] Palliative care [] [] Receiving care in room [] Pre-surgical visit [] Trauma [] Long length of stay [] ICU visit [] Other: Relational/Emotional Strength [] Patient feels connected with others/family/visitors/staff [] Distress [] Loneliness/isolation [] Abandonment Spirituality of Patient [] Person of Yudy [] Attends Sabianism of their Yudy [] Believes in Prayer [] Reads Bible or Buddhist materials [] There are Spiritual issues to be addressed Retail Seasonal Specialist Interventions [] Prayer [] Active listening [] Non-anxious presence [] Spiritual/emotional support [] Crisis/trauma care [] Spiritual counseling [] Bereavement support [] Provided bereavement packet [] Provided Bible/devotional materials [] Provided toy/stuffed animal, coloring book to patient or family member [] Provided Communion [] Anointing/[place] [] Salvation [] Completed spiritual assessment [] Other: Impact on Illness or Injury [] Angry [] Fearful [] Anxious [] Often cries [] Exhaustion [] Unable to work [] Unable to attend caodaism [] Unable to walk/stand [] Unable to read [] Unable to drive [] Unable to eat/drink [] Unable to sleep [] Unable to be with family [] Patient intubated [] Other: Summary Time spent with patient
[2020-03-01] MEDS: acetaminophen 325 mg Tablet 650 MG PO (14:29)
[2020-03-01] MEDS: bisacodyl 10 mg Supp PR (14:30)
--- NOTE | 2020-03-01 16:28 | P.PN_ITS ---
Subjective Subjective: Interval history: Talia had some abdominal pain this morning, and reported she needed to have a bowel movement. Later this afternoon her abdominal pain is gone away and she has a headache. She states it is in the back of her neck, and radiates more on the left over her scalp. It hurts when she presses on her neck. Denies any nausea currently. She did have some earlie r this morning associated with abdominal pain. She reports Tylenol did not help her headache. Medications: Reviewed: Yes Vitals/I&O/Wt Last Vital Signs Temp 97.8 F 03/01/20 15:55 Pulse 77 03/01/20 15:55 Resp 14 03/01/20 15:55 BP 158/99 03/01/20 15:55 Pulse Ox 97 03/01/20 15:55 03/01/20 03/01/20 03/01/20 06:59 14:59 22:59 Intake Total 240 / 1210.017 Output Total 400 / 1200 900 / 900 Balance -160 / 10.017 -900 / -900 Physical Exam Narrative: EXAM NARRATIVE: General exam complains of headache Neck demonstrates pain, posterior neck Cardiovascular regular rate and rhythm with a 2/6 systolic murmur Lungs clear but with diminished breath sounds bilaterally Abdomen is soft with positive bowel sounds Extremities no cyanosis or clubbing. No edema currently Neurologic no focal deficits Data : 03/01/20 04:42 03/01/20 04:42 A&P Assessment and plan (1) Hypertensive urgency: She was placed on Cardene on admission for hypertensive urgency. This is been tapered off. Blood pressure is improved on higher doses of her isosorbide. However, blood pressure is still not ideal. We will add Norvasc 5 mg daily first dose now She did have chest discomfort as a complaint when she came in. Evaluation of troponins did not demonstrate evidence for cardial infarction. Status: Acute (2) Hyponatremia: Sodium level significantly improved Status: Acute (3) Congestive heart failure: Renal function improving Echocardiogram demonstrated normal EF, mild aortic stenosis, moderate mitral regurgitation Status: Acute Qualifiers: Heart failure chronicity: acute on chronic Heart failure type: unspecified Qualified Code(s): I50.9 - Heart failure, unspecified (4) Chronic kidney disease: Continue to follow renal function closely Hold ARB as renal function had worsened Overall renal function improved Has known renal artery stenosis. Status: Acute (5) Peripheral vascular disease: Status: Acute (6) Hypertension: See notations regarding hypertensive urgency above Add Norvasc 5 mg daily Continue hydralazine, metoprolol, Imdur Status: Acute Qualifiers: Hypertension type: essential hypertension Qualified Code(s): I10 - Essential (primary) hypertension (7) COPD (chronic obstructive pulmonary disease): Currently stable with no evidence of exacerbation Oxygen dependent Status: Chronic Qualifiers: COPD type: unspecified COPD Qualified Code(s): J44.9 - Chronic obstructive pulmonary disease, unspecified Additional A&P Information Headache. She now has headache with pain to the back of her neck. She does have past history of some small intracranial aneurysms picked up on a CTA July 2018. At this point I do not think aneurysms are related to her current headache. I will provide her with hydrocodone and see if headache is relieved. Certainly if it worsens, or progresses CT head noncontrast will be done. Anemia. She is symptomatic with significant shortness of breath with exertion. She was transfused 1 unit packed red blood cells during this hospital stay with appropriate increase. She has not had a bowel movement to check her stool Hemoccult. This is likely secondary to her chronic kidney disease. 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
[2020-03-01] MEDS: HYDROcodone-acetaminophen 5-325 mg Tablet 1 TAB PO ×2 (17:21→22:04)
[2020-03-01] MEDS: amlodipine 5 mg Tablet PO (17:21)
[2020-03-01] MEDS: sennosides-docusate Tablet 1 TAB PO (18:12)
[2020-03-02] VITALS (9 sets, daily range): BP systolic 159–169; BP diastolic 80–95; PULSE 70–79; RESP 14–18; TEMP 36.8–37.2; O2SAT 92–97
--- NOTE | 2020-03-02 01:02 | PC.NURSE ---
PT IS RESTING IN BED. PT DENIED PAIN AT THE BEGINNING OF THE SHIFT. PAIN IN THE HEAD RETURNED TO A 10/10 THAT WAS RESOLVED WITH A PRN NORCO. WILL CONTINUE TO MONITOR.
[2020-03-02 03:58] LABS: Basophils % 0.2 %; Hematocrit 27.7 % (37.0-47.0); Hemoglobin 8.9 g/dL (11.5-15.3); Lymphocytes # 0.7 10^3/uL (0.8-4.8); Lymphocytes % 10.6 %; Mean Corpuscular HGB Conc 32.1 g/dL (30.0-36.0); Mean Corpuscular Hemoglobin 27.5 pg (28.0-34.0); Mean Corpuscular Volume 85.5 fL (81-99); Mean Platelet Volume 9.5 fL (7.4-10.4); Monocytes # 0.4 10^3/uL (0.2-0.9); Monocytes % 6.4 %; Neutrophils # 5.29 10^3/uL (1.8-7.7); Neutrophils % 82.2 %; Nucleated Red Blood Cells % 0 %; Platelet Count 180 10^3/cmm (130-400); Red Blood Count 3.24 10^6/uL (4.1-5.3); Red Cell Distribution Width 18.6 % (12.1-15.1); White Blood Count 6.4 10^3/uL (4.0-10.0)
[2020-03-02 04:14] LABS: Anion Gap 12.7 (5-19); Blood Urea Nitrogen 38 mg/dL (8-23); Calcium 8.9 mg/dL (8.5-10.5); Carbon Dioxide 22 mmol/L (22-29); Chloride 100 mmol/L (98-107); Glomerular Filtration Rate 32.7 mL/min (90-130); Glucose 91 mg/dL (65-115); Osmolality Calculated 267 mOsm/kg (285-295); Potassium 4.7 mmol/L (3.5-5.1); Sodium 130 mmol/L (136-145)
--- NOTE | 2020-03-02 05:57 | PC.NURSE ---
PT RESTING IN BED. PT DENIES PAIN AT THIS TIME. WILL GIVE REPORT TO ON COMING NURSE.
[2020-03-02] MEDS: citalopram 20 mg Tablet 40 MG PO (09:10)
[2020-03-02] MEDS: polyethylene glycol 3350 Pkt 17 gm PO (09:10)
[2020-03-02] MEDS: levothyroxine 25 mcg Tablet PO (09:11)
[2020-03-02] MEDS: aspirin 81 mg EC Tablet PO (09:11)
[2020-03-02] MEDS: pantoprazole DR 40 mg Tablet PO (09:11)
[2020-03-02] MEDS: atorvastatin 40 mg Tablet PO (09:11)
[2020-03-02] MEDS: bumetanide 1 mg Tablet PO (09:11)
[2020-03-02] MEDS: isosorbide mononitrate ER 60 mg Tablet PO (09:11)
[2020-03-02] MEDS: roflumilast 500 mcg Tablet PO (09:11)
[2020-03-02] MEDS: amlodipine 5 mg Tablet PO (09:11)
[2020-03-02] MEDS: metoprolol succinate ER (24 HR) 100 mg Tablet PO (09:11)
[2020-03-02] MEDS: sennosides-docusate Tablet 1 TAB PO (09:11)
[2020-03-02] MEDS: hyDRALAzine 50 mg Tablet 100 MG PO (09:11)
[2020-03-02] MEDS: ropinirole 1 mg Tablet PO (09:11)
[2020-03-02] MEDS: montelukast sodium 10 mg Tablet PO (09:11)
--- NOTE | 2020-03-02 09:23 | PC.NURSE ---
PATIENT RESTING QUIETLY IN BED WATCHING TV ; PATIENT STATES SHE IS FEELING BETTER TODAY ; VSS
--- NOTE | 2020-03-02 10:34 | P.DS_ITS ---
Discharge Providers Date of Admission: 02/27/20 22:43 Date of Discharge: March 02, 2020 Attending Provider at Admission: Ruperto Mejia MD Attending Provider at Discharge: Eyal Porras MD Primary Care Provider: HERBERT Masters Diagnoses at Discharge Discharge Diagnosis (1) Hypertensive urgency: Status: Acute Problem details: Resolved (2) Hyponatremia: Status: Acute Problem details: Improved (3) Congestive heart failure: Status: Acute Qualifiers: Heart failure chronicity: acute on chronic Heart failure type: unspecified Qualified Code(s): I50.9 - Heart failure, unspecified (4) Chronic kidney disease: Status: Acute (5) Peripheral vascular disease: Status: Acute (6) Hypertension: Status: Acute Qualifiers: Hypertension type: essential hypertension Qualified Code(s): I10 - Essential (primary) hypertension (7) COPD (chronic obstructive pulmonary disease): Status: Chronic Qualifiers: COPD type: unspecified COPD Qualified Code(s): J44.9 - Chronic obstructive pulmonary disease, unspecified Reason for Visit Reason for Visit: SOB Hospital Course Hospital Course: Talia is a 64-year-old white female with multiple medical problems who presented with hypertensive urgency. She was initially placed on Cardene. She was then started on her regular blood pressure medication, with increase in her nitrates, and addition of diuretics. Fluid restriction was also initiated as she was hyponatremic. With these changes, during her hospital stay her sodium gradually improved from 1 22-1 30 at discharge. She was anemic during her hospital stay, thought to be secondary to her chronic kidney disease. As there was concern this was symptomatic she was transfused for hemoglobin of 6.8. She had no evidence of active bleeding. Hemoglobin at discharge was 8.9. Renal function also improved during her hospital stay from a creatinine of 2.0 on admission to 1.6 at discharge. Diuretic was adjusted during her hospital stay and ultimately she will take Bumex 1 mg every other day. Secondary to her chronic health issues and weakness she will be set up with home health and home physical therapy. She will follow-up with her primary, her credit operations specialist. I will also initiate follow-up with neurology in regards to multiple small aneurysm she had on a CTA head and neck July 2018. Physical Exam Narrative: EXAM NARRATIVE: General exam no apparent distress Cardiovascular regular in rhythm Lungs clear Abdomen is soft with positive bowel sounds Extremities no cyanosis clubbing or edema Discharge Data Data Completed and Pending: Completed Studies During Hospitalization Category Date Time Status XR chest 1V asael ble [id number] Urgent Exams 02/27/20 21:22 Completed CV echo complete* [id number] Routine Ultrasound 02/28/20 00:37 Completed Pending at discharge Category Date Time Status Immunochemical Fe liliana OCB Routine Lab 02/28/20 14:34 Uncollected Labs from last 24 hours 03/02/20 03/02/20 03:36 03:36 WBC 6.4 RBC 3.24 L Hgb 8.9 L Hct 27.7 L MCV 85.5 MCH 27.5 L MCHC 32.1 RDW 18.6 H Plt Count 180 MPV 9.5 Neut % (Auto) 82.2 Lymph % (Auto) 10.6 [place] % (Auto) 6.4 Eos % (Auto) 0.0 Baso % (Auto) 0.2 Neut # (Auto) 5.29 Lymph # (Auto) 0.7 L [place] # (Auto) 0.4 Eos # (Auto) 0.0 Baso # (Auto) 0.0 Nucleated RBC % (a uto) 0 Nucleated RBCs # 0.0 Sodium 130 L Potassium 4.7 Chloride 100 Carbon Dioxide 22 Anion Gap 12.7 BUN 38 H Creatinine 1.6 H GFR Calculation 32.7 L Glucose 91 Calculated Osmolal ity 267 L Calcium 8.9 Vitals: Last Vital Signs Temp 98.3 F 03/02/20 08:00 Pulse 77 03/02/20 08:27 Resp 18 03/02/20 08:23 BP 163/91 03/02/20 08:00 Pulse Ox 97 03/02/20 08:23 Discharge Plan Discharge Patient Disposition: Home Health Service Condition: Stable Prescriptions: New isosorbide mononitrate 60 mg Tablet Extended Release 24 Hr 60 mg PO DAILY Qty: 30 RF: 0 amlodipine 5 mg Tablet 5 mg PO DAILY Qty: 30 RF: 0 polyethylene glycol 3350 17 gram Powder In Packet 17 g PO BID Qty: 60 RF: 0 bumetanide 1 mg tablet 1 mg PO .qod Qty: 15 RF: 0 Continued nitroglycerin [Nitrostat] 0.4 mg tablet, sublingual 0.4 mg SUBLINGUAL Q5M PRN (Reason: Chest Pain) RF: 0 levothyroxine [Synthroid] 25 mcg tablet 25 mcg PO DAILY RF: 0 albuterol sulfate 2.5 mg /3 mL (0.083 %) solution for nebulization 2.5 mg INHALATION QID PRN (Reason: Shortness Of Breath) RF: 0 Spiriva with HandiHaler 18 mcg capsule, w/inhalation device 1 cap INHALATION DAILY RF: 0 atorvastatin 20 mg tablet 30 mg PO DAILY RF: 0 omeprazole 20 mg capsule,delayed release(DR/EC) 20 mg PO DAILY RF: 0 ropinirole 1 mg tablet 1 mg PO DAILY RF: 0 Symbicort 160-4.5 mcg/actuation HFA aerosol inhaler 2 puff INHALATION BID RF: 0 hydralazine 100 mg tablet 100 mg PO TID 30 Days Qty: 90 RF: 5 aspirin 81 mg tablet,delayed release (DR/EC) 81 mg PO DAILY Qty: 30 RF: 0 sodium bicarbonate 650 mg tablet 650 mg PO DAILY RF: 0 citalopram [Celexa] 40 mg Tablet 40 mg PO DAILY RF: 0 rizatriptan 10 mg tablet 10 mg PO PRN RF: 0 montelukast [Singulair] 10 mg Tablet 10 mg PO DAILY RF: 0 fluticasone propionate [Flonase Allergy Relief] 50 mcg/actuation [place],Suspension 2 spray INTRANASAL DAILY PRN (Reason: unknown) RF: 0 Daliresp 500 mcg Tablet 500 mcg PO DAILY RF: 0 metoprolol succinate 100 mg tablet extended release 24 hr 100 mg PO BID Qty: 60 RF: 0 Discontinued furosemide [Lasix] 20 mg tablet 20 mg PO QAM 30 Days Qty: 30 RF: 2 isosorbide mononitrate 30 mg tablet extended release 24 hr 30 mg PO DAILY 30 Days Qty: 30 RF: 5 Discharge Orders: Discharge Order (Routine); Ordered 03/02/20 Ordered By: Eyal Porras Referrals: [facility] [Outside] Serina Teresa MD [Physician] - 2 weeks (History of aneurysms, CTA, July 2018) Nancy Carrasco FNP-C [Primary Care Provider] - 4-7 days Discharge Diet: Cardiac Discharge Activity: Increase activity as tolerated Activity Restrictions/Additional Instructions: Resume oxygen 2 L per nasal cannula at home Home health with home physical therapy Keep follow-ups as scheduled Arrange follow-up with your credit operations specialist in the next week. Discharge Attestations Time Spent in Discharge Care*: greater than 30 min Quality Metrics Clinical Quality Measures During this hospital stay, did patient experience: None Coding Level of Care Code Acute Psychiatric Technician Assistant for [facility] Fwd Diagnoses Hypertensive urgency I16.0 Hyponatremia E87.1 Congestive heart failure I50.9 Heart failure chronicity: acute on chronic Heart failure type: unspecified Chronic kidney disease N18.9 Peripheral vascular disease I73.9 Hypertension I10 Hypertension type: essential hypertension COPD (chronic obstructive pulmonary disease) J44.9 COPD type: unspecified COPD
--- NOTE | 2020-03-02 11:27 | PC.NURSE ---
PATIENT VOMITED GRAPE JUICE FROM MORNING [employer] ; PATIENT STATES THAT SHE DOES NOT NEED ANYTHING FOR NAUSEA AND STILL WISHES TO BE DISCHARGED ; SHE STATES THAT THE GRAPE JUICE DID NOT SIT WELL WITH HER THIS MORNING ; SHE DID NOT WISH TO SPEAK TO THE DR
--- NOTE | 2020-03-02 11:31 | PC.CHAP ---
Pastoral Care Encounter/Spiritual Assessment Type of Contact [] Declined automotive parts salesperson visit [] Patient/Family/Request visit [] Outpatient visit [] Follow-up visit [] Physician referral [] Code/Alert [X] Routine visit [] Staff referral [] Actively dying [] Patient sleeping [] Family support [] [] Out of room [] Palliative care [] [] Receiving care in room [] Pre-surgical visit [] Trauma [] Long length of stay [] ICU visit [] Other: Relational/Emotional Strength [X] Patient feels connected with others/family/visitors/staff [] Distress [] Loneliness/isolation [] Abandonment Spirituality of Patient [X] Person of Yudy [X] Attends Zoroastrianism of their Yudy [X] Believes in Prayer [] Reads Bible or Nondenominational materials [] There are Spiritual issues to be addressed Marine Electrician Helper Interventions [X] Prayer [X] Active listening [X] Non-anxious presence [] Spiritual/emotional support [] Crisis/trauma care [] Spiritual counseling [] Bereavement support [] Provided bereavement packet [] Provided Bible/devotional materials [] Provided toy/stuffed animal, coloring book to patient or family member [] Provided Communion [] Anointing/[place] [] Salvation [X] Completed spiritual assessment [] Other: Impact on Illness or Injury [] Angry [] Fearful [] Anxious [] Often cries [] Exhaustion [] Unable to work [] Unable to attend muslim [] Unable to walk/stand [] Unable to read [] Unable to drive [] Unable to eat/drink [] Unable to sleep [] Unable to be with family [] Patient intubated [] Other: Summary: Pt has good support system and will be discharged home today. She was grateful for the visit and the prayer. Time spent with patient: 5-7 mins.
--- NOTE | 2020-03-02 12:10 | PC.NURSE ---
DISCHARGE SHOWED RX TX ERROR ; RX PRINTED AND GIVEN TO PATIENT ALSO CALLED INTO PREFERRED PHARMACY
--- NOTE | 2020-03-02 12:15 | PC.NURSE ---
PATIENT TO EXIT VIA WHEELCHAIR WITH NO ISSUES
--- NOTE | 2020-03-02 12:24 | PC.NURSE ---
PATIENT GIVEN DISCHARGE INSTRUCTIONS AND VERBALIZED UNDERSTANDING ; VSS ; PATIENT DENIES ANY PAIN OR SOB ; IV REMOVED AND PRESSURE DRESSING APPLIED WITH NO BLEEDING NOTED ; PATIENT REQUESTED 'CAR SICKNESS MEDICATION' ; NOTIFIED ; PATIENT FAMILY CONTACTED FOR RIDE
== END 2020-03-02 12:15 | disposition home health service (06) | DRG 291 ==
LOC: ER 22:46 → MEDSURG 23:11 → CSU 02-28 00:36
PROVIDERS: Emergency Medicine; Admitting Provider Internal Medicine; PCP Nurse Practitioner Family; Visit Provider Internal Medicine
DX: I13.0 Hypertensive heart and chronic kidney disease with heart failure and stage 1 through stage 4 chronic kidney disease, or unspecified chronic kidney disease (principal); I50.33 Acute on chronic diastolic (congestive) heart failure; E87.1 Hypo-osmolality and hyponatremia; J44.9 Chronic obstructive pulmonary disease, unspecified; I16.0 Hypertensive urgency; Z79.82 Long term (current) use of aspirin; Z99.81 Dependence on supplemental oxygen; I73.9 Peripheral vascular disease, unspecified; D63.1 Anemia in chronic kidney disease; I70.1 Atherosclerosis of renal artery; N18.9 Chronic kidney disease, unspecified; E03.9 Hypothyroidism, unspecified; I71.4 Abdominal aortic aneurysm, without rupture; Z87.891 Personal history of nicotine dependence
CPT/HCPCS: 12345; 36415; 36430; 71045; 80048; 80053; 83880; 84484; 85025; 85610; 86850; 86900; 86920; 93005; 93306; 94640; 96372; 96375; 99283; J1644; J1940; J2270; J2405; J7611; P9040

== ENCOUNTER → 2020-03-12 11:15 | Outpatient (BNVA) | payer MEDICAID, SELFPAY | PROVIDERS: PCP Nurse Practitioner Family; Visit Provider Internal Medicine Nephrology | DX: N18.4 Chronic kidney disease, stage 4 (severe) (principal) | CPT/HCPCS: 80069; 81000; 82043 ==

== ENCOUNTER → 2020-03-26 13:57 | Outpatient (BNVA) | payer MEDICAID, SELFPAY | PROVIDERS: PCP Nurse Practitioner Family; Visit Provider Nurse Practitioner Family | DX: E78.00 Pure hypercholesterolemia, unspecified (principal); I10 Essential (primary) hypertension; N18.9 Chronic kidney disease, unspecified; R53.83 Other fatigue | CPT/HCPCS: 80053; 80061; 82306; 85025 ==

== ENCOUNTER 2020-03-31 11:30 | Outpatient (CLI) | payer MEDICAID, SELFPAY ==
[2020-03-31 11:56] LABS: Basophils % 0.7 %; Hematocrit 29.5 % (37.0-47.0); Hemoglobin 9.3 g/dL (11.5-15.3); Lymphocytes # 0.9 10^3/uL (0.8-4.8); Lymphocytes % 31.1 %; Mean Corpuscular HGB Conc 31.5 g/dL (30.0-36.0); Mean Corpuscular Hemoglobin 29.7 pg (28.0-34.0); Mean Corpuscular Volume 94.2 fL (81-99); Mean Platelet Volume 9.2 fL (7.4-10.4); Monocytes # 0.3 10^3/uL (0.2-0.9); Monocytes % 9.6 %; Neutrophils # 1.71 10^3/uL (1.8-7.7); Neutrophils % 58.3 %; Nucleated Red Blood Cells % 0 %; Platelet Count 145 10^3/cmm (130-400); Red Blood Count 3.13 10^6/uL (4.1-5.3); Red Cell Distribution Width 17.6 % (12.1-15.1); White Blood Count 2.9 10^3/uL (4.0-10.0)
[2020-03-31 12:42] LABS: Alanine Aminotransferase 8 U/L (0-33); Albumin Level 3.5 g/dL (3.5-5.2); Alkaline Phosphatase 79 IU/L (35-105); Anion Gap 11.9 (5-19); Aspartate Amino Transferase 16 U/L (0-32); Blood Urea Nitrogen 14 mg/dL (8-23); Calcium 8.9 mg/dL (8.5-10.5); Carbon Dioxide 23 mmol/L (22-29); Chloride 101 mmol/L (98-107); Globulin 3.1 g/dL (1.3-4.6); Glomerular Filtration Rate 38.1 mL/min (90-130); Glucose 98 mg/dL (65-115); Osmolality Calculated 274 mOsm/kg (285-295); Potassium 3.9 mmol/L (3.5-5.1); Sodium 132 mmol/L (136-145); Thyroid Stimulating Hormone 0.84 uIU/mL (0.27-4.20); Total Bilirubin 0.2 mg/dL (0.15-1.2); Total Protein 6.6 g/dL (6.6-8.7)
--- NOTE | 2020-03-31 15:55 | ONC FU_ITS ---
Dr. Ballesteros follow up note Patient: Hali James Unit #: [id number]: 1955 Dicatated By: Ade Ballesteros M.D.Date of Visit:Mar 31, 2020 Onc Med Follow-up/Prog Note History of Present Illness: Ms. Hali James, is a 64-year-old female with a history of anemia. As per patient, first time she was diagnosed with anemia was not 2014 or , at that time she was given oral iron supplement for 5 or 6 months with that anemia was resolved until recently when her routine lab work-up done on January 30, 2020 showed white blood count 3.4, hemoglobin 9.2 g hematocrit 27.9 platelets 171,000 MCV 85 and CMP showed creatinine 2, and anemia work-up including iron studies showed iron 53, iron saturation 29.2, TIBC 181 ferritin 113, bilirubin 0.2, stool for occult blood was negative Patient denies any history of blood transfusion, patient had colonoscopy done at age 62 it was unremarkable but not sure about EGD Patient has history of hysterectomy and bilateral oophorectomy at age 22 for incompetent cervix. Patient denies any jaundice, denies any melena or hematochezia, denies any hemoptysis or hematemesis, denies any night sweats, denies any abdominal fullness, denies any peripheral lymphadenopathy. Denies any bony pain denies any weight loss. Came for follow-up, denies any specific complaint except generalized weakness and fatigue but overall feeling better no shortness of breath or palpitation, no nausea or vomiting, no diarrhea constipation, no night sweats, no peripheral lymphadenopathy, no jaundice, no melena or hematochezia. Medications: Albuterol Sulfate (sensor) 1 Puff(s) (of 108 (90 base) mcg/act) Aerosol Powder, Breath Activated Inhalation daily, amLODIPine Besylate 1 Tablet Oral daily, Aspirin 1 Tablet (of 81 mg) Tablet, enteric coated Oral daily, Atorvastatin Calcium 1 Tablet (of 30 mg) Oral daily, Budesonide-Formoterol Fumarate 1 Puff(s) (of 160-4.5 mcg/act) Aerosol Inhalation daily, Celecoxib 1 Capsule (of 200 mg) Oral daily, Daliresp 1 Tablet (of 500 mcg) Oral daily, FLUoxetine HCl 1 Capsule (of 20 mg) Oral daily, Furosemide 1 Tablet (of 20 mg) Oral daily, hydrALAZINE HCl 1 Tablet (of 100 mg) Oral t.i.d., Irbesartan 1 Tablet (of 300 mg) Oral daily, Isosorbide Mononitrate ER 1 Tablet (of 30 mg) Tablet SR 24 HR Oral daily, Levothyroxine Sodium 1 Tablet (of 25 mcg) Oral daily, Metoprolol Succinate ER 1 Tablet (of 100 mg) Tablet SR 24 HR Oral b.i.d., Nitroglycerin 1 (0.4 mg) Tablet, sublingual Sublingual PRN, Omeprazole 1 Capsule (of 20 mg) Capsule Delayed Release Oral daily, rOPINIRole HCl 1 Tablet (of 1 mg) Oral daily, Spiriva Respimat 1 (1.25 mcg/act) Aerosol, solution Inhalation daily Allergies: Lisinopril and Sulfa Antibiotics. Review of Systems: Review of Systems is not available for this patient. Vital Signs: Performed on Mar 31, 2020 13:09 Height - 60.00 in Weight - 93.4 lbs (HIGH) BSA - 1.35 sq.m BMI - 18.24 Temperature - 98.1 F (LOW) Pulse - 70 /min Respiration - 18 /min BP - 144/73 mm(hg) (HIGH) O2 Sat - 97 % Pain - 0 Performance Status: 0 - Fully active, able to carry on all predisease activities without restrictions. (ECOG) Physical Examination: ENMT - No mouth sores, no thrush, no jaundice, Respiratory - Lungs are clear, Cardiovascular - Regular rate and rhythm of heart, Abdomen - Soft, bowel sounds present, Extremities - No visible edema or rash. Lab/Imaging: Test performed on Feb 06, 2020 13:10 Ferritin 116 ng/mL Iron 64 mcg/dL Vitamin B12 1206 pg/mL Iron Binding Capacity (TIBC) 202 mcg/dl % Iron Saturation 31.6 % UIBC 138 mcg/dL WBC 3.3 10 3/uL RBC 3.40 10 6/uL HGB 9.2 g/dL HCT 28.2 % MCV 82.9 fL MCH 27.1 pg MCHC 32.6 g/dL RDW 17.7 % Platelet Count 168 10 3/cmm MPV 10.2 fL Neutrophils 1.35 10 3/uL Lymphocytes 1.6 10 3/uL Monocytes 0.3 10 3/uL Eosinophils 0.0 10 3/uL Basophils 0.0 10 3/uL Neutrophil % 41.3 % Lymphocyte % 48.3 % Monocyte % 9.8 % Eosinophil % 0.0 % Basophils % 0.3 % NRBC % 0 % Impression: Normocytic/normochromic anemia etiology unclear could be multifactorial including but not limited to anemia of renal disease, anemia of chronic disease, considering her age and concurrent leukopenia underlying myelodysplasia cannot be ruled out. Or due to minerals deficiency like copper or zinc or hypothyroidism. Renal insufficiency COPD Plan: Discussed with patient regarding her labs white blood count 2.9 hemoglobin 9.3 hematocrit 29.5 platelets 145,000 MCV 94.2, copper 129 TSH 0.84 compared to 6.93 on February 06, 2020 Clinically, patient doing reasonably well, with no new signs symptoms follow-up CBC shows persistent mild/moderate anemia and anemia work-up has been inconclusive except hypothyroidism which has resolved with thyroid supplements but no change in her hemoglobin and mild/moderate leukopenia, at this point, we will consider bone marrow evaluation to rule out underlying myelodysplasia or other marrow etiology. We will schedule her for bone marrow and will consider flow cytometry and cytogenetics and MDS panel. She return to clinic 2 weeks after her bone marrow done for further evaluation discussion. Signed By: Ade Ballesteros M.D. <<Signature on File>>
== END 2020-03-31 11:31 | disposition home or self-care (01) ==
LOC: ONCMED 11:32
PROVIDERS: PCP Nurse Practitioner Family; Visit Provider Internal Medicine Hematology & Oncology
DX: D64.9 Anemia, unspecified (principal); E03.9 Hypothyroidism, unspecified; N28.9 Disorder of kidney and ureter, unspecified; J44.9 Chronic obstructive pulmonary disease, unspecified
CPT/HCPCS: 80053; 84443; 85025; 99214

== ENCOUNTER → 2020-04-08 16:35 | Outpatient (BNVA) | payer MEDICAID, SELFPAY | PROVIDERS: PCP Nurse Practitioner Family; Visit Provider Internal Medicine Hematology & Oncology | DX: Z20.828 Contact with and (suspected) exposure to other viral communicable diseases (principal) | CPT/HCPCS: 87635 ==

== ENCOUNTER 2020-04-17 09:22 | Day surgery (SDC) | payer MEDICAID, SELFPAY ==
[2020-04-08 13:34] VITALS: BMI 16.2
[2020-04-17 09:56] VITALS: BP 149/103; PULSE 73; RESP 18; TEMP 36.2; O2SAT 96
[2020-04-17] MEDS: sodium chloride 0.9% 1,000 ML 30 ML IV (10:07)
[2020-04-17 10:13] LABS: Basophils % 0.6 %; Hematocrit 32.6 % (37.0-47.0); Hemoglobin 10.5 g/dL (11.5-15.3); Lymphocytes # 1.1 10^3/uL (0.8-4.8); Lymphocytes % 31.5 %; Mean Corpuscular HGB Conc 32.2 g/dL (30.0-36.0); Mean Corpuscular Hemoglobin 29.9 pg (28.0-34.0); Mean Corpuscular Volume 92.9 fL (81-99); Mean Platelet Volume 8.8 fL (7.4-10.4); Monocytes # 0.4 10^3/uL (0.2-0.9); Monocytes % 10.4 %; Neutrophils # 1.98 10^3/uL (1.8-7.7); Neutrophils % 57.2 %; Nucleated Red Blood Cells % 0 %; Platelet Count 204 10^3/cmm (130-400); Red Blood Count 3.51 10^6/uL (4.1-5.3); Red Cell Distribution Width 15.8 % (12.1-15.1); White Blood Count 3.5 10^3/uL (4.0-10.0)
--- NOTE | 2020-04-17 10:13 | ANES.PREANE2 ---
Pre-Anesthetic Assessment Pre-Anesthetic Assessment: Height/Weight: Height 1.52 m Weight 37.648 kg Temp Pulse Resp BP Pulse Ox 97.1 F L 73 18 149/103 96 04/17/20 09:56 04/17/20 09:56 04/17/20 09:56 04/17/20 09:56 04/17/20 09:56 Preop Diagnosis: anemia Proposed Procedure: Operation Date: 04/17/20 11:00 Proposed Procedures p Bone Marrow Biospy With Aspiration(Not Applicable) - Ade Ballesteros MD Familial anesthetic complications: None Was Beta Uyen taken within 24 hours: Yes Last intake: Intake Last Liquid Date 04/16/20 Last Liquid Time 23:00 Last Solid Date 04/16/20 Last Solid Time 23:00 Social: Social History: No alcohol and No tobacco Exam: Pre-Anes Outpt Exam: alert, oriented x 3, clear to auscultation bilaterally and regular rate & rhythm Airway: Cervical ROM: WNL MP: 3 Dentition: Other (upper plates) Pulmonary: Pulmonary: COPD (recent exacerbation in october, took levaquin) CV/HEM: CV/HEM: Afib (noted on 02/27 echo), Anemia, CHF, HTN (on multiple BP medications) and PVD Comments: 02/27 echo - EF 56%, mild Aortic stenosis and trace Aortic valve regurge, mod mitral valve regurge Saw cardiology yesterday - stable, no changes AAA s/p endovascular stent placement : : Chronic renal Insufficiency GI: GI: GERD Metabolic: Metabolic: Hyperlipidemia and Thyroid Comments: weight loss Anesthetic Plan: ASA status: 3 Anesthesia: MAC Risk of > 500 ml blood loss (7ml/kg in children): No Meds/Allergies Current Medications: Current Medications Generic Name Dose Route Start Last Admin Trade Name Freq PRN Reason Stop Dose Admin Sodium Chloride 1,000 mls @ 30 ml s/hr 04/17/20 09:45 04/17/20 10:07 Sodium Chloride 0.9% IV 04/18/20 09:44 30 mls/hr .Q24H APOLONIA Administration PFSH Anesthesia PFSH: Medical History AAA (abdominal aortic aneurysm) 4.1 x 4.4 x 5.7 cm 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 Anemia Atypical chest pain Chronic kidney disease COPD (chronic obstructive pulmonary disease) Depression Endoleak post (EVAR) endovascular aneurysm repair GERD (gastroesophageal reflux disease) History of stent insertion of renal artery Hypercholesteremia Hypertension Hypertensive urgency Resolved Hypothyroidism Normal colonoscopy Peripheral vascular disease Restless leg Surgical History H/O: hysterectomy History of repair of aneurysm of abdominal aorta using endovascular stent graft Hx of tonsillectomy S/P appendectomy Family History Other CAD (coronary artery disease) Hypertension Social History Smoking and tobacco status: former smoker Alcohol intake: never Data Anesthesia CBC & Chem 7: 04/17/20 10:04 Cardiac Studies: No Data to Display
[2020-04-17 11:34] VITALS: BP 96/63; PULSE 70; RESP 16; TEMP 36.6; O2SAT 100
[2020-04-17 11:55] VITALS: BP 154/74; PULSE 67; RESP 18; O2SAT 99
--- NOTE | 2020-04-17 11:58 | P.PCN_ITS ---
Bone Marrow Biopsy Bone Marrow Biopsy: I was consulted by [] office regarding bone marrow biopsy on Talia James []. Briefly, the patient is a [64] year old [female] with [history of bicytopenia/MDS]. In the Outpatient Services Department, with nursing staff and laboratory technologists in attendance, the procedure was discussed with the patient. Appropriate consent form had been signed. Appropriate alternatives, benefits and risks of procedure were discussed with the patient and she was pre- operatively assessed with a history and physical by myself and cleared for the biopsy procedure. The patient did request IV sedation and that was provided by the Anesthesia Department. And under aseptic condition local anesthesia was given to the right posterior iliac area, about 15 cc of bone marrow aspirate and core biopsy was obtained, specimen was sent for routine histopathology and flow cytometry cytogenetics and MDS panel. Patient tolerated procedure well, postprocedure instructions were given to the nursing. Thank you for allowing me to participate in this patient's care and diagnosis. Coding Level of Care Code Acute Food Service Utility Worker for Leann Crowley
--- NOTE | 2020-04-17 12:10 | ANE.PACU2 ---
Inpatient post-anesthesia follow up: Airway intact: Yes Vital signs: Temperature 97.8 F Pulse Rate 67 Respiratory Rate 18 Blood Pressure 154/74 Pulse Oximetry 99 Oxygen Delivery Me thod Room Air Oxygen Flow Rate 3 Fraction of Inspir ed Oxygen Hydration adequate: Yes Nausea and vomiting: No Pain level: 1 Mental status: Baseline
[2020-04-22 11:10] LABS: Miscellaneous Test See Scanned Lab Rpt
== END 2020-04-17 12:13 | disposition home or self-care (01) ==
LOC: OR 09:23
PROVIDERS: PCP Nurse Practitioner Family; Visit Provider Internal Medicine Hematology & Oncology
PROC: (CPT 38221; principal; 2020-04-17 11:00)
DX: D46.9 Myelodysplastic syndrome, unspecified (principal); J44.9 Chronic obstructive pulmonary disease, unspecified; I48.91 Unspecified atrial fibrillation; I11.0 Hypertensive heart disease with heart failure; I50.9 Heart failure, unspecified; Z87.891 Personal history of nicotine dependence
CPT/HCPCS: 12345; 36415; 38222; 85025; 88237; 88264; 88305; J2250; J2704; J7030

== ENCOUNTER 2020-04-21 16:54 | Observation (INO) | payer MEDICAID, SELFPAY ==
[2020-04-21 17:10] VITALS: BP 169/75; PULSE 88; RESP 18; TEMP 36.9; O2SAT 97; BMI 16.2
--- NOTE | 2020-04-21 17:24 | XRR_ITS ---
PROCEDURE INFORMATION: Exam: XR Chest, 1 View Exam date and time: 04/21/2020 8:16 PM Age: 64 years old Clinical indication: Cough and dyspnea; Additional info: Dyspnea/cough x 2 days TECHNIQUE: Imaging protocol: XR of the chest Views: 1 view. COMPARISON: CR XR chest 1V portable [id number] 02/27/2020 9:38 PM FINDINGS: Lungs: Unremarkable. No consolidation. Pleural space: Unremarkable. No pleural effusion. No pneumothorax. Heart/Mediastinum: Unremarkable. No cardiomegaly. Bones/joints: Unremarkable. XR/XR chest 1V portable [id number] IMPRESSION: No acute findings.
[2020-04-21 18:02] LABS: ABG PCO2 25.4 mmHg (35-45); ABG PH Result 7.48 (7.35-7.45); Alveolar-Arterial Oxygen Gradi 4.2 mmHg (5-10); Arterial Blood Gas Hematocrit 31.2 % (37-47); Base Excess ABG -3.6 mmol/L (-2.0-2.0); Blood Gas Allen Test Pos; Blood Gas Sample Site Brachial, left; Blood Gas Sample Type Arterial; Carboxyhemoglobin 1.1 %THgb (0.4-20.1); HCO3 ABG 18.8 mmol/L (22-26); HGB O2 Sat 95.9 % (95-100); Ionized Calcium Level - ABG 1.2 mmol/L (1.1-1.4); Oxygen Device NC; PO2 ABG 84.4 mmHg (80.0-100.0); Potassium Level - ABG 4.4 mmol/L (3.5-5.0); Total Hemoglobin 10.2 g/dL (12-16)
[2020-04-21 20:01] VITALS: BP 186/96; PULSE 85; RESP 20; O2SAT 98
--- NOTE | 2020-04-21 20:38 | CTR_ITS ---
PROCEDURE INFORMATION: Exam: CT Angiography Chest With Contrast Exam date and time: 04/21/2020 9:56 PM Age: 64 years old Clinical indication: Shortness of breath; Additional info: SOB, ? pneumo, R/O covid TECHNIQUE: Imaging protocol: Computed tomographic angiography of the chest with intravenous contrast. 3D rendering (Not supervised by radiologist): MIP and/or 3D reconstructed images were created by the technologist. Radiation optimization: All CT scans at this facility use at least one of these dose optimization techniques: automated exposure control; mA and/or kV adjustment per patient size (includes targeted exams where dose is matched to clinical indication); or iterative reconstruction. Contrast material: VISI 320; Contrast volume: 65 ml; Contrast route: INTRAVENOUS (IV); COMPARISON: CT angio chest PE protcl [id number] 09/12/2019 2:55 PM RADIATION DOSE METRICS: Total DLP (mGy-cm): 326.58 FINDINGS: Pulmonary arteries: Normal. No pulmonary emboli. Aorta: Unremarkable. No aortic aneurysm. No aortic dissection. Lungs: Centrilobular emphysematous changes. Right lower lobe dense airspace infiltrate with left lower lobe atelectasis versus minimal infiltrate. Pleural space: Unremarkable. No pneumothorax. No pleural effusion. Heart: Small pericardial effusion. Coronary artery atherosclerotic calcifications. Lymph nodes: Unremarkable. No enlarged lymph nodes. Bones/joints: Unremarkable. No acute fracture. Soft tissues: Aortobifemoral graft. Left kidney exophytic 11 mm soft tissue nodule similar compared to prior exam. CT/CT angio chest PE protcl [id number] IMPRESSION: 1. Right lower lobe dense airspace infiltrate with left lower lobe atelectasis versus minimal infiltrate. 2. Aortobifemoral graft. 3. Small pericardial effusion. 4. Coronary artery atherosclerotic calcifications. 5. Centrilobular emphysematous changes. 6. Left kidney exophytic 11 mm soft tissue nodule similar compared to prior exam. Radiation Dose CTDIVOL = (mGy): DLP = 326.58 (mGy-cm)
--- NOTE | 2020-04-21 20:43 | ED_ITS ---
HPI - SOB/Dyspnea General: Chief Complaint: Shortness of Breath/Dyspnea Stated Complaint: Fever Time Seen by Provider: 04/21/20 20:17 History of Present Illness: HPI Narrative: This patient is a 64-year-old female with history of COPD. She is on 2 L of oxygen at home and increases it to 4 L when ambulatory. She said she has been doing really well this year and has not had to come to the hospital. She even has times it she can be off her oxygen. She has been seeing Dr. Ballesteros for anemia and had a bone marrow biopsy done on Tuesday. She says on Tuesday she developed severe shortness of breath, nausea, vomiting, diarrhea, right-sided chest pain. She said she has had pleurisy before and it feels like that. She has not had a fever. She said she was tested for COVID about 10 days ago but was not having any of the symptoms at that time and thinks maybe she should be tested again. She has not had any known exposures. MD elicited complaint: shortness of breath, cough and chest pain Pertinent past history: COPD Onset (ago): day(s) (3) Timing: constant Severity: severe Exacerbating factors: lying flat, coughing, stress, talking and deep breaths Known history of: COPD Associated symptoms: Reports chest pain, cough, nausea and vomiting; Deny fever(s) Treatment prior to arrival: oxygen and bronchodilator Review of Systems General: Reports: 10 or more systems reviewed and unremarkable except in HPI and below Const: Reports: fatigue; Denies: fever(s), chills or malaise Eyes: Denies: change in vision ENMT: Denies: odynophagia Card: Reports: chest pain Resp: Reports: dyspnea and productive cough GI: Reports: nausea and vomiting : Denies: flank pain or difficulty voiding Musc: Denies: neck pain or back pain Skin/Breast: Denies: rash Neuro: Denies: headache(s), numbness in extremities or weakness in extremities Bill/Lymph: Denies: easy bruising or easy bleeding PFS ED PFSH: Medical History (Updated 04/24/20 @ 00:00 by ) AAA (abdominal aortic aneurysm) 4.1 x 4.4 x 5.7 cm 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 Anemia Atypical chest pain Chronic kidney disease CKD stage III, solitary kidney COPD (chronic obstructive pulmonary disease) Depression Endoleak post (EVAR) endovascular aneurysm repair GERD (gastroesophageal reflux disease) History of stent insertion of renal artery Hypercholesteremia Hypertension Hypertensive urgency Resolved Hypothyroidism Normal colonoscopy Peripheral vascular disease Restless leg Surgical History H/O: hysterectomy History of repair of aneurysm of abdominal aorta using endovascular stent graft Hx of tonsillectomy S/P appendectomy Family History Other CAD (coronary artery disease) Hypertension Social History Smoking and tobacco status: former smoker Alcohol intake: never Physical Exam Const: COMMON NORMALS: patient oriented x3, no limitations and alert GENERAL APPEARANCE: cooperative and in distress NUTRITIONAL APPEARANCE: thin HENMT: HEAD & SCALP: normal to inspection FACE & SINUS: normal facial exam Eye: GENERAL EYE: appearance normal, both eyes and all related structures Neck/C-Spine: COMMON NORMALS: supple, no meningeal signs and no JVD Chest: COMMONS NORMALS: normal inspection of the chest Resp: EFFORT & INSPECTION: Yes tachypneic, Yes respiratory distress, Yes labored and Yes uses accessory muscles AUSCULTATION: diminished lung sounds bilateral Cardio: COMMON NORMALS: no JVD, regular rate, regular rhythm and No murmurs present (Cardio) RATE: regular rate RHYTHM: regular rhythm GI: COMMON NORMALS: Normal to inspection, nondistended, normoactive bowel sounds present, Soft to palpation and non-tender INSPECTION: Yes normal to inspection AUSCULTATION: Yes normoactive bowel sounds PALPATION: Yes Soft to palpation Back/Pelvis: COMMON NORMALS: thoracic and lumbar spine normal to inspection Extremity: COMMON NORMALS: normal to inspection Neuro: COMMON NORMALS: patient oriented x3, moves all extremities, no focal motor deficits and no sensory deficits noted SENSORIUM/ORIENTATION: Yes alert MENINGEAL SIGNS: Yes no meningeal signs Psych: COMMON NORMALS: mental status grossly normal, cooperative and normal affect Skin: COMMON NORMALS: no rashes or lesions noted and turgor normal GENERAL SKIN EXAM: no rashes or lesions noted and turgor normal Course ED course: This patient has bad COPD. She is on oxygen at home pretty much all the time. She is negative for Covid but does have a large pneumonia. Her white count is low, she is anemic, her sodium is low and her potassium is a little bit high. She will be admitted for IV antibiotics and management of her electrolyte abnormalities. She does have a history of anemia and is being worked up for that at the moment. Vital Signs: Vital signs: Vital Signs Temperature 97.8 F 04/23/20 14:07 Pulse Rate 65 04/23/20 14:07 Respiratory Rate 18 04/23/20 14:07 Blood Pressure 156/81 04/23/20 14:07 Pulse Oximetry 96 04/23/20 14:07 MDM - SOB/Dyspnea Lab Data: Labs: Lab Results 04/21/20 04/21/20 04/21/20 Range/Units 17:48 21:48 21:48 WBC 10.2 H (4.0-10.0) 10^3/ uL RBC 3.29 L (4.1-5.3) 10^6/u L Hgb 10.0 L (11.5-15.3) g/dL Hct 29.1 L (37.0-47.0) % MCV 88.4 (81-99) fL MCH 30.4 (28.0-34.0) pg MCHC 34.4 (30.0-36.0) g/dL RDW 14.8 (12.1-15.1) % Plt Count 205 (130-400) 10^3/c mm MPV 9.5 (7.4-10.4) fL Neut % (Auto) 76.6 % Lymph % (Auto) 14.6 % [place] % (Auto) 8.1 % Eos % (Auto) 0.1 % Baso % (Auto) 0.1 % Neut # (Auto) 7.81 H (1.8-7.7) 10^3/u L Lymph # (Auto) 1.5 (0.8-4.8) 10^3/u L [place] # (Auto) 0.8 (0.2-0.9) 10^3/u L Eos # (Auto) 0.0 (0.0-0.8) 10^3/u L Baso # (Auto) 0.0 (0.0-0.1) 10^3/u L Nucleated RBC % (a uto) 0 % Nucleated RBCs # 0.0 /100WBC PT (12.1-14.9) SECO NDS INR (0.8-1.2) D-Dimer (0-0.59) ug/mIFE U Specimen Type Arterial Sample Site Brachial, left ABG pH 7.48 H (7.35-7.45) ABG pCO2 25.4 L (35-45) mmHg ABG pO2 84.4 (80.0-100.0) mmH g ABG HCO3 18.8 L (22-26) mmol/L ABG O2 Saturation 98.0 ABG Base Excess -3.6 L (-2.0-2.0) mmol/ L Roly Test Pos A-a O2 Gradient 4.2 L (5-10) mmHg Hematocrit 31.2 L (37-47) % Hgb O2 Saturation 95.9 (95-100) % Carboxyhemoglobin 1.1 (0.4-20.1) %THgb Methemoglobin 1.0 (0.4-1.5) % Total Hemoglobin 10.2 L (12-16) g/dL Sodium 125.0 L 122 L (131-143) mmol/L Potassium 4.4 4.6 (3.5-5.0) mmol/L Glucose 97.0 101 (70-115) mg/dL Ionized Calcium 1.2 (1.1-1.4) mmol/L O2 Delivery Device Nc O2 Liters/Min 2.0 % Tire Mounter ID Drn Chloride 91 L (98-107) mmol/L Carbon Dioxide 18 L (22-29) mmol/L Anion Gap 17.6 (5-19) BUN 29 H (8-23) mg/dL Creatinine 1.3 H (0.5-0.9) mg/dL GFR Calculation 41.5 L (90-130) mL/min Calculated Osmolal ity 260 L (285-295) mOsm/k g Lactic Acid (0.5-2.2) mmol/L Calcium 9.3 (8.5-10.5) mg/dL Magnesium 1.9 (1.7-2.3) mg/dL Total Bilirubin 0.2 (0.15-1.2) mg/dL AST 17 (0-32) U/L ALT 6 (0-33) U/L Alkaline Phosphata se 71 (35-105) IU/L C-Reactive Protein 338.2 H (0.0-4.9) mg/L NT-Pro-B Natriuret Pep 7037 H (0-125) pg/mL Total Protein 7.0 (6.6-8.7) g/dL Albumin 3.5 (3.5-5.2) g/dL Globulin 3.5 (1.3-4.6) g/dL Lipase 12 L (13-60) U/L Procalcitonin 2.56 H (0-0.5) ng/mL SARS-CoV-2 Ag (Rap id) (Negative) 04/21/20 04/21/20 04/21/20 Range/Units 21:48 21:48 21:57 WBC (4.0-10.0) 10^3/ uL RBC (4.1-5.3) 10^6/u L Hgb (11.5-15.3) g/dL Hct (37.0-47.0) % MCV (81-99) fL MCH (28.0-34.0) pg MCHC (30.0-36.0) g/dL RDW (12.1-15.1) % Plt Count (130-400) 10^3/c mm MPV (7.4-10.4) fL Neut % (Auto) % Lymph % (Auto) % [place] % (Auto) % Eos % (Auto) % Baso % (Auto) % Neut # (Auto) (1.8-7.7) 10^3/u L Lymph # (Auto) (0.8-4.8) 10^3/u L [place] # (Auto) (0.2-0.9) 10^3/u L Eos # (Auto) (0.0-0.8) 10^3/u L Baso # (Auto) (0.0-0.1) 10^3/u L Nucleated RBC % (a uto) % Nucleated RBCs # /100WBC PT 12.40 (12.1-14.9) SECO NDS INR 0.90 (0.8-1.2) D-Dimer 3.16 H (0-0.59) ug/mIFE U Specimen Type Sample Site ABG pH (7.35-7.45) ABG pCO2 (35-45) mmHg ABG pO2 (80.0-100.0) mmH g ABG HCO3 (22-26) mmol/L ABG O2 Saturation ABG Base Excess (-2.0-2.0) mmol/ L Roly Test A-a O2 Gradient (5-10) mmHg Hematocrit (37-47) % Hgb O2 Saturation (95-100) % Carboxyhemoglobin (0.4-20.1) %THgb Methemoglobin (0.4-1.5) % Total Hemoglobin (12-16) g/dL Sodium (131-143) mmol/L Potassium (3.5-5.0) mmol/L Glucose (70-115) mg/dL Ionized Calcium (1.1-1.4) mmol/L O2 Delivery Device O2 Liters/Min % Tire Mounter ID Chloride (98-107) mmol/L Carbon Dioxide (22-29) mmol/L Anion Gap (5-19) BUN (8-23) mg/dL Creatinine (0.5-0.9) mg/dL GFR Calculation (90-130) mL/min Calculated Osmolal ity (285-295) mOsm/k g Lactic Acid 0.9 (0.5-2.2) mmol/L Calcium (8.5-10.5) mg/dL Magnesium (1.7-2.3) mg/dL Total Bilirubin (0.15-1.2) mg/dL AST (0-32) U/L ALT (0-33) U/L Alkaline Phosphata se (35-105) IU/L C-Reactive Protein (0.0-4.9) mg/L NT-Pro-B Natriuret Pep (0-125) pg/mL Total Protein (6.6-8.7) g/dL Albumin (3.5-5.2) g/dL Globulin (1.3-4.6) g/dL Lipase (13-60) U/L Procalcitonin (0-0.5) ng/mL SARS-CoV-2 Ag (Rap id) Negative (Negative) Discharge Plan Discharge Patient Disposition: Placed in Observation Admit Provider: Rueprto Mejia Condition: Stable Referrals: Guillermo Culver MD [Physician] - 05/01/20 9:30 am (Please follow up with Dr Culver on May 01 at 0930 am) Nancy Carrasco FNP-C [Primary Care Provider] - 04/25/20 2:00 pm (Please follow up with Darby Carrasco via telephone appointment TuesdayApril 25 at 2:00 pm ) Ade Ballesteros MD [Staff Physician] - 05/02/20 9:30 am (Please follow up with Dr Ballesteros on TuesdayMay 02. You will need to check in at 09:30 for blood work and then the appointment at 11:00.) Discharge Diet: Advance as tolerated Discharge Activity: Increase activity as tolerated and Oxygen as instructed Patient Instructions: Prednisone (By mouth), Tramadol (By mouth), Levofloxacin (By mouth), Pneumonia Stoplight, Pneumonia - Viral Additional Instructions: Discharge to home with prednisone 40 mg daily for an additional 5 days Discharge to home with Levaquin, antibiotic, for additional 14 days Continue with oxygen as previously prescribed Follow-up with Dr. Ballesteros as scheduled Follow-up with primary care provider in 2 to 3 days Follow-up with cardiology office as soon as first appointment is available may need repeat ultrasound of your heart Call your physician or present to the ED for any acute illness or concern For any worsening chest pain or shortness of breath please present to the ED Discharge Date/Time: 04/22/20 00:11 Coding Level of Care Code ED Child Care Attendant for Chg Fwd Exam Comprehensive
[2020-04-21 21:58] LABS: Basophils % 0.1 %; Eosinophils % 0.1 %; Hematocrit 29.1 % (37.0-47.0); Lymphocytes # 1.5 10^3/uL (0.8-4.8); Lymphocytes % 14.6 %; Mean Corpuscular HGB Conc 34.4 g/dL (30.0-36.0); Mean Corpuscular Hemoglobin 30.4 pg (28.0-34.0); Mean Corpuscular Volume 88.4 fL (81-99); Mean Platelet Volume 9.5 fL (7.4-10.4); Monocytes # 0.8 10^3/uL (0.2-0.9); Monocytes % 8.1 %; Neutrophils # 7.81 10^3/uL (1.8-7.7); Neutrophils % 76.6 %; Nucleated Red Blood Cells % 0 %; Platelet Count 205 10^3/cmm (130-400); Red Blood Count 3.29 10^6/uL (4.1-5.3); Red Cell Distribution Width 14.8 % (12.1-15.1); White Blood Count 10.2 10^3/uL (4.0-10.0)
[2020-04-21 21:59] VITALS: RESP 18; O2SAT 97
[2020-04-21] MEDS: ondansetron 2 mg/ML SDV 2 mL 4 MG IVP (21:59)
[2020-04-21] MEDS: morphine 4 mg/mL SDV 1 mL IVP (21:59)
[2020-04-21 22:18] LABS: Lactic Sepsis W/Reflex 0.9 mmol/L (0.5-2.2)
[2020-04-21 22:25] LABS: NT Pro B Type Natriuretic Pept 7037 pg/mL (0-125); Procalcitonin 2.56 ng/mL (0-0.5)
[2020-04-21 22:26] LABS: D Dimer 3.16 ug/mIFEU (0-0.59)
[2020-04-21] MEDS: iodixanol 320 mg/mL 100mL Btl IV (22:31)
[2020-04-21 22:36] LABS: Alanine Aminotransferase 6 U/L (0-33); Albumin Level 3.5 g/dL (3.5-5.2); Alkaline Phosphatase 71 IU/L (35-105); Blood Urea Nitrogen 29 mg/dL (8-23); Calcium 9.3 mg/dL (8.5-10.5); Carbon Dioxide 18 mmol/L (22-29); Chloride 91 mmol/L (98-107); Globulin 3.5 g/dL (1.3-4.6); Glomerular Filtration Rate 41.5 mL/min (90-130); Glucose 101 mg/dL (65-115); Lipase 12 U/L (13-60); Magnesium 1.9 mg/dL (1.7-2.3); Osmolality Calculated 260 mOsm/kg (285-295); Sodium 122 mmol/L (136-145); Total Bilirubin 0.2 mg/dL (0.15-1.2)
[2020-04-21 22:39] LABS: Anion Gap 17.6 (5-19); Aspartate Amino Transferase 17 U/L (0-32); Potassium 4.6 mmol/L (3.5-5.1)
[2020-04-21 22:48] LABS: C Reactive Protein 338.2 mg/L (0.0-4.9)
[2020-04-21] MEDS: cefTRIAXone 1,000 MG in sodium chloride 0.9% (plus) 50 ML 100 MG IV (23:05)
[2020-04-21 23:06] VITALS: BP 181/85; PULSE 88; RESP 18; O2SAT 98
[2020-04-21 23:19] LABS: SARS Covid-2 Antigen Negative (Negative)
--- NOTE | 2020-04-21 23:38 | PM.HP ---
Providers/Chief Complaint Primary Care Provider: HERBERT Masters Chief Complaint: Fever History of Present Illness Hali James is a 64 year old female carries history of oxygen dependent COPD, uses 2 L at rest and 4 L on ambulation at home, chronic kidney disease stage III (solitary kidney), chronic hyponatremia, infrarenal abdominal aortic aneurysm status post repair, came in today for right-sided chest pain. Patient is stating that she had bone marrow biopsy by Dr. Ballesteros on last week and on Tuesday she started experiencing right-sided chest discomfort which she would describe as sharp pain, gets worse on taking deep breaths, not associated with any fever. She has had multiple episodes of emesis with nausea. she is denying productive cough, left-sided chest pain but is endorsing right shoulder and neck discomfort. She tries to increase her fluid intake on alternate days because of Bumex every 48 hour usage. No recent antibiotic usage, sick contacts, use of steroids. Diagnosis in the ER revealed right lower lobe pneumonia, high D-dimer, CT chest did not reveal PE, leukocytosis without fever or tachycardia, she is not septic at the time of admission, sodium 122, creatinine 1.3, she has been given ceftriaxone and azithromycin along morphine 4 mg in the ER Review of Systems Const: Reports: chills, body aches, fatigue and malaise; Denies: fever(s) Eyes: Denies: change in vision ENMT: Denies: throat pain Card: Reports: chest pain and dyspnea on exertion; Denies: swelling of feet/ankles or orthopnea Resp: Reports: dyspnea and pain on inspiration; Denies: productive cough or non-productive cough GI: Reports: nausea and vomiting; Denies: abdominal pain, diarrhea or constipation : Denies: flank pain Musc: Reports: neck pain Skin/Breast: Denies: rash Neuro: Reports: headache(s) Psych: Denies: anxiety Endo: Denies: polyuria Bill/Lymph: Denies: easy bruising All/Imm: Denies: urticaria Medications/Allergies Home Medications Medication Instructions Recorded Confirmed Last Taken Type tiotropium bromide 18 mcg capsule 1 cap INHALATION DAILY inh 07/24/19 04/17/20 04/17/20 History with inhalation device fluticasone propionate [Flonase 2 spray INTRANASAL DAILY PRN 02/21/20 04/17/20 04/17/20 History Allergy Relief] albuterol sulfate 2.5 mg INHALATION QID PRN 30 Days 03/26/20 04/17/20 04/16/20 Rx #75 ml amlodipine 5 mg tablet 5 mg PO DAILY 30 Days #30 tab 03/26/20 04/17/20 04/17/20 07:30 Rx aspirin 81 mg tablet,delayed 81 mg PO DAILY 30 Days #30 tab 03/26/20 04/17/20 04/16/20 Rx release atorvastatin 10 mg tablet 10 mg PO DAILY 30 Days #30 tab 03/26/20 04/17/20 04/16/20 Rx atorvastatin 20 mg tablet 20 mg PO DAILY 30 Days #30 tab 03/26/20 04/17/20 04/16/20 Rx budesonide-formoterol HFA 160 2 puff INHALATION BID 30 Days 03/26/20 04/17/20 04/17/20 Rx mcg-4.5 mcg/actuation aerosol #10.2 gm inhaler bumetanide 1 mg tablet 1 mg PO .qod 30 Days #15 tab 03/26/20 04/17/20 04/16/20 Rx citalopram 40 mg tablet 40 mg PO DAILY 30 Days #30 tab 03/26/20 04/17/20 04/16/20 Rx hydralazine 100 mg tablet 100 mg PO TID 30 Days #90 tab 03/26/20 04/17/20 04/17/20 Rx isosorbide mononitrate 60 mg 60 mg PO DAILY 30 Days #30 tab 03/26/20 04/17/20 04/17/20 Rx tablet,extended release 24 hr levothyroxine 50 mcg capsule 50 mcg PO DAILY 30 Days #30 cap 03/26/20 04/17/20 04/16/20 Rx metoprolol succinate 100 mg 100 mg PO BID #60 tab 03/26/20 04/17/20 04/17/20 Rx tablet,extended release 24 hr 30 montelukast 10 mg tablet 10 mg PO DAILY 30 Days #30 tab 03/26/20 04/17/20 04/16/20 Rx nitroglycerin 0.4 mg sublingual 0.4 mg SUBLINGUAL Q5M PRN 30 Days 03/26/20 04/08/20 Unknown Rx tablet #30 tab omeprazole 20 mg capsule,delayed 20 mg PO DAILY 30 Days #30 cap 03/26/20 04/17/20 04/16/20 Rx release roflumilast 500 mcg tablet 500 mcg PO DAILY 30 Days #30 tab 03/26/20 04/17/20 04/16/20 Rx ropinirole 1 mg tablet 1 mg PO DAILY 30 Days #30 tab 03/26/20 04/17/20 04/16/20 Rx Allergies Allergy/AdvReac Type Severity Reaction Status Date / Time lisinopril Allergy anaphylaxis Verified 04/21/20 17:19 Sulfa (Sulfonamide Allergy unknown Verified 04/21/20 17:19 Antibiotics) PFSH Acute PFSH: Medical History AAA (abdominal aortic aneurysm) 4.1 x 4.4 x 5.7 cm 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 Anemia Atypical chest pain Chronic kidney disease COPD (chronic obstructive pulmonary disease) Depression Endoleak post (EVAR) endovascular aneurysm repair GERD (gastroesophageal reflux disease) History of stent insertion of renal artery Hypercholesteremia Hypertension Hypertensive urgency Resolved Hypothyroidism Normal colonoscopy Peripheral vascular disease Restless leg Surgical History H/O: hysterectomy History of repair of aneurysm of abdominal aorta using endovascular stent graft Hx of tonsillectomy S/P appendectomy Family History Other CAD (coronary artery disease) Hypertension Social History Smoking and tobacco status: former smoker Alcohol intake: never Vitals/I&O/Wt Last Vital Signs Temp 98.4 F 04/21/20 17:10 Pulse 88 04/21/20 23:06 Resp 18 04/21/20 23:06 BP 181/85 04/21/20 23:06 Pulse Ox 98 04/21/20 23:06 Weight last 48 hrs Weight 37.648 kg Physical Exam Narrative: EXAM NARRATIVE: Cooperative and pleasant appears more than stated age Currently does not seem to be in any respiratory distress, Frail female Looks dehydrated No signs of fluid overload EOMI, PERRLA Neurologically no focal deficit S1, S2 no signs of heart failure lower extremity edema or positive JVD Bilateral diminished breath sounds without active wheezing however mild rhonchi appreciated at the bases bilaterally Abdomen soft nontender bowel sounds present Lower extremity no edema granular ulcer Appropriate mood and affect Pleuritic chest pain, Data : 04/21/20 21:48 04/21/20 21:48 A&P Assessment and plan (1) Right lower lobe pneumonia: Status: Acute (2) Hypothyroidism: Status: Chronic Qualifiers: Hypothyroidism type: acquired Qualified Code(s): E03.9 - Hypothyroidism, unspecified (3) COPD (chronic obstructive pulmonary disease): Status: Chronic Qualifiers: COPD type: unspecified COPD Qualified Code(s): J44.9 - Chronic obstructive pulmonary disease, unspecified (4) Hyponatremia: Status: Acute (5) Chronic kidney disease: Status: Acute Qualifiers: Chronic kidney disease stage: stage 3 (moderate) Qualified Code(s): N18.3 - Chronic kidney disease, stage 3 (moderate) Additional A&P Information Right lower lobe pneumonia Patient is experiencing pleuritic right-sided chest pain, Legionella, bacterial antigen ordered, sputum culture ordered, she is not septic at the time of admission She has leukocytosis without fever tachycardia currently saturating well on 2 L nasal cannula oxygen supplementation which is her home regimen No active respiratory distress Ceftriaxone and azithromycin, she has been hospitalized in the last 90 days but no IV antibiotic has been used, considering possible bone marrow disorder my threshold to escalate her antibiotics will be low Pleuritic chest pain Etiology is right lower lobe pneumonia Not a candidate to receive anti-inflammatory medication because of chronic kidney stage III and solitary kidney, I would use morphine and Tylenol for now Oxygen dependent COPD No acute exacerbation, well compensated, doing well on 2 L nasal cannula no active respiratory distress High inflammatory markers noted, likely etiology bacterial pneumonia PE ruled out Anemia and leukopenia Bone marrow biopsy done by Dr. Ballesteros to rule out MDS Hemoglobin stable, no active neutropenia There is concern for B-cell neoplasm, CLL mantle cell lymphoma, and immunohistochemical stain results are pending, kindly review pathology report for details Hypothyroidism: Continue home regimen of levothyroxine Restless leg syndrome: Continue ropinirole Congestive heart failure without acute exacerbation: I would hold Bumex for now considering dehydration and emesis, no active signs, clinically looks dehydrated Chronic hyponatremia Sodium 122 on last admission which improved with fluid restriction and diuretics No active neurological signs or symptoms of hyponatremia, Patient is endorsing drinking a lot of water in a day to compensate for Bumex use on every other day Chronic kidney disease stage III/solitary kidney Avoid NSAIDs Creatinine seems to be around baseline No acute decompensation Continue bicarb tablet DVT prophylaxis Heparin Cardiac diet Full code Attestations Medical Necessity Statement*: Anticipating discharge in less than 48 hours continued pain management for pleuritic chest pain and community-acquired pneumonia management Time Spent in Patient Care: (>than 50% of time spent in counselling and/or direct pt care on unit). 50mins Coding Level of Care Code Acute Physical Therapy Aide for Chg Fwd Diagnoses Right lower lobe pneumonia J18.9 Hypothyroidism E03.9 Hypothyroidism type: acquired COPD (chronic obstructive pulmonary disease) J44.9 COPD type: unspecified COPD Hyponatremia E87.1 Chronic kidney disease N18.3 Chronic kidney disease stage: stage 3 (moderate)
--- NOTE | 2020-04-21 23:49 | PC.NURSE ---
pt report called to RN in SBAR format.
[2020-04-22] VITALS (17 sets, daily range): BP systolic 119–154; BP diastolic 76–82; PULSE 56–87; RESP 16–24; TEMP 36.5–36.9; O2SAT 93–98
[2020-04-22] MEDS: ropinirole 1 mg Tablet PO ×2 (01:22→20:18)
[2020-04-22] MEDS: morphine IR 15 mg Tablet PO ×5 (01:22→22:43)
[2020-04-22] MEDS: heparin 5,000 unit/mL INJ 1 mL 5000 UNIT SUBCUT ×3 (01:23→17:33)
[2020-04-22] MEDS: azithromycin 500 MG in sodium chloride 0.9% 250 ML 250 MG IV (02:57)
[2020-04-22 05:24] LABS: Basophils % 0.1 %; Hematocrit 29.2 % (37.0-47.0); Hemoglobin 9.7 g/dL (11.5-15.3); Lymphocytes # 1.2 10^3/uL (0.8-4.8); Lymphocytes % 16.3 %; Mean Corpuscular HGB Conc 33.2 g/dL (30.0-36.0); Mean Corpuscular Hemoglobin 30.7 pg (28.0-34.0); Mean Corpuscular Volume 92.4 fL (81-99); Mean Platelet Volume 9.7 fL (7.4-10.4); Monocytes # 0.7 10^3/uL (0.2-0.9); Monocytes % 9.2 %; Neutrophils # 5.49 10^3/uL (1.8-7.7); Nucleated Red Blood Cells % 0 %; Platelet Count 191 10^3/cmm (130-400); Red Blood Count 3.16 10^6/uL (4.1-5.3); Red Cell Distribution Width 14.9 % (12.1-15.1); White Blood Count 7.4 10^3/uL (4.0-10.0)
[2020-04-22 05:35] LABS: Anion Gap 16.8 (5-19); Blood Urea Nitrogen 29 mg/dL (8-23); Calcium 9.4 mg/dL (8.5-10.5); Carbon Dioxide 21 mmol/L (22-29); Chloride 95 mmol/L (98-107); Glomerular Filtration Rate 35.2 mL/min (90-130); Glucose 107 mg/dL (65-115); Osmolality Calculated 272 mOsm/kg (285-295); Potassium 4.8 mmol/L (3.5-5.1); Sodium 128 mmol/L (136-145)
--- NOTE | 2020-04-22 08:05 | USCV_ITS ---
Hali James Age: 64 Gender: F : 1955 Exam Date: 04/22/2020 08:28 Ordering Phys: Cnythia Sweet DO Technologist: Harvinder Payne Exam Location: [facility] – [place], [place] Indication: PER EFF BP: 138 / 74 HR: 76 Rhythm: Sinus Technical Quality: Good MEASUREMENTS (Male / Female) Normal Values 2D ECHO LV Diastolic Diameter PLAX 3.7 cm 4.2 - 5.9 / 3.9 - 5.3 cm LV Systolic Diameter PLAX 2.4 cm IVS Diastolic Thickness 1.0 cm 0.6 - 1.0 / 0.6 - 0.9 cm IVS Systolic Thickness 1.3 cm LVPW Diastolic Thickness 1.0 cm 0.6 - 1.0 / 0.6 - 0.9 cm LVPW Systolic Thickness 1.3 cm LVOT Diameter 2.0 cm LV Ejection Fraction 2D Teich 65.9 % LV Ejection Fraction MOD 2C 51.2 % LV Ejection Fraction 2C AL 49.9 % LA Diameter 3.1 cm LA Width 3.0 cm LA Height 3.9 cm RA Width 2.9 cm RA Height 3.6 cm M-MODE LV Diastolic Diameter MM 5.8 cm 4.2 - 5.9 / 3.9 - 5.3 cm LV Systolic Diameter MM 3.9 cm LV Ejection Fraction MM Teich 59.5 % IVS Diastolic Thickness MM 0.8 cm 0.6 - 1.0 / 0.6 - 0.9 cm IVS Systolic Thickness MM 1.5 cm LVPW Diastolic Thickness MM 1.3 cm 0.6 - 1.0 / 0.6 - 0.9 cm LVPW Systolic Thickness MM 1.6 cm RV Diastolic Diameter MM 0.8 cm Aortic Annulus Diameter 3.4 cm LA Ao Ratio MM 0.9 MV E Point Septal Separation 1.3 cm FINDINGS Left Ventricle Normal left ventricular size, systolic function and wall thickness, with no regional wall motion abnormalities. LVEF is 55 to 60%. Normal left ventricular wall thickness. Right Ventricle The right ventricle is normal in size and function. Right Atrium The right atrium is normal in size. Left Atrium The left atrium is normal in size. Mitral Valve Moderately thickened mitral valve. Aortic Valve Aortic valve is thickened . Tricuspid Valve Structurally normal tricuspid valve. Pulmonic Valve Not visualized Pericardium There is a small circumferential pericardial effusion noted. Aorta Normal ascending aorta dimension. CONCLUSIONS Limited echocardiogram to assess for pericardial effusion. LV systolic function is normal. Small pericardial effusion is noted. No echo features of tamponade. Compared to prior study from 02/28/2020, small pericardial effusion is now present. Victor Hugo Gonzalez MD (Electronically Signed) Final Date: 22 April 2020 08:55 S
--- NOTE | 2020-04-22 08:07 | PC.NURSE ---
I reported the pain to the nurse
[2020-04-22] MEDS: ipratropium-albuterol 3 mL Neb INHALATION ×2 (08:12→14:44)
[2020-04-22] MEDS: metoprolol succinate ER (24 HR) 100 mg Tablet PO ×2 (08:41→17:33)
[2020-04-22] MEDS: levothyroxine 25 mcg Tablet PO (08:41)
[2020-04-22] MEDS: pantoprazole DR 40 mg Tablet 20 MG PO (08:41)
[2020-04-22] MEDS: hyDRALAzine 50 mg Tablet 100 MG PO ×3 (08:41→20:18)
[2020-04-22] MEDS: sodium bicarbonate 650 mg Tablet PO (08:41)
[2020-04-22] MEDS: azithromycin 250 mg Tablet 500 MG PO (08:45)
[2020-04-22] MEDS: predniSONE 20 mg Tablet 40 MG PO (12:09)
--- NOTE | 2020-04-22 13:56 | P.PN_ITS ---
Subjective Subjective: Interval history: Patient awake in bed at time of exam today. Reports continued inspiratory pain on the right side. Discussed with her concern for pleuritic pain. Vitals/I&O/Wt Last Vital Signs Temp 97.8 F 04/22/20 11:15 Pulse 80 04/22/20 11:15 Resp 16 04/22/20 13:29 BP 134/81 04/22/20 11:15 Pulse Ox 96 04/22/20 13:29 04/21/20 04/22/20 04/22/20 22:59 06:59 14:59 Intake Total 350 / 350 Output Total 300 / 300 Balance -300 / -300 350 / 350 Weight last 48 hrs Weight 37.648 kg Physical Exam Const: COMMON NORMALS: patient oriented x3 and alert GENERAL APPEARANCE: cooperative, frail appearing and appears older than stated age NUTRITIONAL APPEARANCE: thin and underweight ORIENTATION/CONSCIOUSNESS: Yes awake, Yes oriented to person, Yes oriented to place and Yes oriented to time HENMT: COMMON NORMALS: normocephalic and atraumatic HEAD & SCALP: normocephalic and atraumatic Eye: COMMON NORMALS: Equal, round and reactive pupils present PUPIL: Yes Equal, round and reactive pupils present Neck/C-Spine: COMMON NORMALS: supple GENERAL: Yes normal visual inspection Resp: AUSCULTATION: no rhonchi OTHER: Diminished breath sounds bilaterally with prolonged expiratory phase, 2 L of oxygen by nasal cannula in place, no appreciable wheezing or rhonchi Cardio: COMMON NORMALS: regular rate, regular rhythm and No murmurs present (Cardio) RATE: regular rate RHYTHM: regular rhythm GI: COMMON NORMALS: Soft to palpation and non-tender PALPATION: Yes Soft to palpation Extremity: COMMON NORMALS: no clubbing, cyanosis or edema and no calf tender ness Neuro: COMMON NORMALS: patient oriented x3, CN's II-XII intact bilaterally, moves all extremities and no focal motor deficits SENSORIUM/ORIENTATION: Yes alert, Yes oriented to person, Yes oriented to place and Yes oriented to time SPEECH: speech normal Psych: COMMON NORMALS: mental status grossly normal and cooperative Skin: COMMON NORMALS: no rashes or lesions noted GENERAL SKIN EXAM: no rashes or lesions noted Data : 04/22/20 04:46 04/22/20 04:46 Micro: Microbiology 04/22/20 10:57 Gram Stain - Final Sputum - Expectorated Sputum 04/22/20 01:13 Legionella Urinary Antigen - Final Urine,Voided Bacterial Antigens - Final 04/22/20 00:58 Blood Culture - Preliminary Blood SPECIMEN COLLECTED 04/22/20 00:54 Blood Culture - Preliminary Blood SPECIMEN COLLECTED A&P Assessment and plan (1) Right lower lobe pneumonia: Continue on Rocephin and azithromycin Oxygen per protocol, respiratory therapy to assess and treat. Patient's right-sided pain appears to be pleuritic in nature Status: Acute (2) Hypothyroidism: Continue levothyroxine 25 mcg daily Status: Chronic Qualifiers: Hypothyroidism type: acquired Qualified Code(s): E03.9 - Hypothyroidism, unspecified (3) COPD (chronic obstructive pulmonary disease): Chronically on 2 L of oxygen at rest and 4 with activity. Currently at baseline Status: Chronic Qualifiers: COPD type: unspecified COPD Qualified Code(s): J44.9 - Chronic obstructive pulmonary disease, unspecified (4) Hyponatremia: Sodium of 122, improved to 128 today. Continue with fluid restriction and diuretics restarted for tomorrow. Status: Acute (5) Chronic kidney disease: Status: Acute Qualifiers: Chronic kidney disease stage: stage 3 (moderate) Qualified Code(s): N18.3 - Chronic kidney disease, stage 3 (moderate) Additional A&P Information Anemia and leukopenia: S/P Bone marrow biopsy done by Dr. Ballesteros to rule out MDS. Hemoglobin stable, no active neutropenia. Needs continued outpatient follow up there is concern for B-cell neoplasm, CLL mantle cell lymphoma, and immunohistochemical stain results are pending, kindly review pathology report for details Restless leg syndrome: Continue ropinirole Congestive heart failure without acute exacerbation: Patient appears dry on admission, Bumex currently on hold. We will continue to monitor respiratory status closely. Pericardial effusion: Echocardiogram ordered today, limited shows small pericardial effusion, no tamponade. Start on prednisone 40 mg and continue close monitoring on telemetry overnight and if continued improvement plan for potential discharge to home tomorrow DVT prophylaxis: Heparin Diet: Cardiac diet CODE STATUS: Full code Attestations Medical Necessity Statement*: Patient requires further hospitalization due to concern for pericardial effusion, anemia, pneumonia, right-sided pleuritic pain and COPD Coding Level of Care Code Acute Case Management Coordinator for [facility] Diagnoses Right lower lobe pneumonia J18.9 Hypothyroidism E03.9 Hypothyroidism type: acquired COPD (chronic obstructive pulmonary disease) J44.9 COPD type: unspecified COPD Hyponatremia E87.1 Chronic kidney disease N18.3 Chronic kidney disease stage: stage 3 (moderate)
[2020-04-22] MEDS: cefTRIAXone 1,000 MG in sodium chloride 0.9% (plus) 50 ML 100 MG IV (22:43)
[2020-04-22] MEDS: efferdent effervescent 1 EACH DENTAL (23:01)
[2020-04-23] VITALS (8 sets, daily range): BP systolic 156–171; BP diastolic 75–81; PULSE 65–72; RESP 16–99; TEMP 36.5–36.6; O2SAT 2–99
[2020-04-23] MEDS: heparin 5,000 unit/mL INJ 1 mL 5000 UNIT SUBCUT ×2 (00:27→07:52)
[2020-04-23] MEDS: ipratropium-albuterol 3 mL Neb INHALATION (03:33)
[2020-04-23] MEDS: morphine IR 15 mg Tablet PO (04:26)
--- NOTE | 2020-04-23 05:30 | PC.NURSE ---
SHIFT SUMMARY Slept for intervals. Is very pleasant and is hoping to get to go home today. Medicated X2 with po Morphine for pain in right chest/ribcage area. Has SOB with exertion and says remains weak. c/o dry skin with itching and have helped her lotion skin tonight.
[2020-04-23 05:31] LABS: Hematocrit 26.2 % (37.0-47.0); Hemoglobin 8.6 g/dL (11.5-15.3); Lymphocytes # 0.5 10^3/uL (0.8-4.8); Mean Corpuscular HGB Conc 32.8 g/dL (30.0-36.0); Mean Corpuscular Hemoglobin 30.7 pg (28.0-34.0); Mean Corpuscular Volume 93.6 fL (81-99); Monocytes # 0.1 10^3/uL (0.2-0.9); Monocytes % 1.5 %; Neutrophils # 2.67 10^3/uL (1.8-7.7); Neutrophils % 82.2 %; Nucleated Red Blood Cells % 0 %; Platelet Count 209 10^3/cmm (130-400); Red Cell Distribution Width 14.6 % (12.1-15.1); White Blood Count 3.3 10^3/uL (4.0-10.0)
[2020-04-23 06:06] LABS: Anion Gap 17.2 (5-19); Blood Urea Nitrogen 34 mg/dL (8-23); Calcium 9.4 mg/dL (8.5-10.5); Carbon Dioxide 22 mmol/L (22-29); Chloride 95 mmol/L (98-107); Glomerular Filtration Rate 35.2 mL/min (90-130); Glucose 118 mg/dL (65-115); Osmolality Calculated 277 mOsm/kg (285-295); Potassium 5.2 mmol/L (3.5-5.1); Sodium 129 mmol/L (136-145)
[2020-04-23] MEDS: azithromycin 250 mg Tablet 500 MG PO (07:52)
[2020-04-23] MEDS: metoprolol succinate ER (24 HR) 100 mg Tablet PO (07:52)
[2020-04-23] MEDS: sodium bicarbonate 650 mg Tablet PO (07:53)
[2020-04-23] MEDS: hyDRALAzine 50 mg Tablet 100 MG PO (07:53)
[2020-04-23] MEDS: levothyroxine 25 mcg Tablet PO (07:53)
[2020-04-23] MEDS: pantoprazole DR 40 mg Tablet 20 MG PO (07:53)
[2020-04-23] MEDS: predniSONE 20 mg Tablet 40 MG PO (07:53)
--- NOTE | 2020-04-23 13:20 | PM.DCS ---
Discharge Providers Date of Admission: 04/21/20 23:36 Date of Discharge: April 23, 2020 Attending Provider at Admission: Ruperto Mejia MD Attending Provider at Discharge: Cynthia Sweet DO Primary Care Provider: HERBERT Masters Diagnoses at Discharge Discharge Diagnosis (1) Right lower lobe pneumonia: Status: Acute (2) Hypothyroidism: Status: Chronic Qualifiers: Hypothyroidism type: acquired Qualified Code(s): E03.9 - Hypothyroidism, unspecified (3) COPD (chronic obstructive pulmonary disease): Status: Chronic Qualifiers: COPD type: unspecified COPD Qualified Code(s): J44.9 - Chronic obstructive pulmonary disease, unspecified (4) Hyponatremia: Status: Acute (5) Chronic kidney disease: Status: Acute Problem details: CKD stage III, solitary kidney Qualifiers: Chronic kidney disease stage: stage 3 (moderate) Qualified Code(s): N18.3 - Chronic kidney disease, stage 3 (moderate) Reason for Visit Reason for Visit: Fever Hospital Course Hospital Course: Patient was seen and evaluated in the emergency department noted to have concern for right-sided pleuritic pain with concern for pneumonia and admitted to the hospital for further evaluation and treatment. Patient had a CT scan of her chest which showed small pericardial effusion therefore a limited echocardiogram was performed which confirmed small pericardial effusion. Patient was continued on antibiotics and started on prednisone, pain continued to improve and patient remained hemodynamically stable. She was continued on her home oxygen requirements and oxygen saturations continue to do well. Discussed with patient on date of discharge plan for close cardiology follow-up as well as follow-up with her primary care provider with the plan to discharge to home with antibiotics and steroids, she verbalized understanding and agreed with plan reporting that her pain was improved. Physical Exam Const: COMMON NORMALS: patient oriented x3 and alert GENERAL APPEARANCE: cooperative, frail appearing and appears older than stated age NUTRITIONAL APPEARANCE: thin and underweight ORIENTATION/CONSCIOUSNESS: Yes awake, Yes oriented to person, Yes oriented to place and Yes oriented to time HENMT: COMMON NORMALS: normocephalic and atraumatic HEAD & SCALP: normocephalic and atraumatic Eye: COMMON NORMALS: Equal, round and reactive pupils present PUPIL: Yes Equal, round and reactive pupils present Neck/C-Spine: COMMON NORMALS: supple GENERAL: Yes normal visual inspection Resp: AUSCULTATION: no rhonchi OTHER: Diminished breath sounds bilaterally with prolonged expiratory phase, 2 L of oxygen by nasal cannula in place, no appreciable wheezing or rhonchi Cardio: COMMON NORMALS: regular rate, regular rhythm and No murmurs present (Cardio) RATE: regular rate RHYTHM: regular rhythm GI: COMMON NORMALS: Soft to palpation and non-tender PALPATION: Yes Soft to palpation Extremity: COMMON NORMALS: no clubbing, cyanosis or edema and no calf tenderness Neuro: COMMON NORMALS: patient oriented x3, CN's II-XII intact bilaterally, moves all extremities and no focal motor deficits SENSORIUM/ORIENTATION: Yes alert, Yes oriented to person, Yes oriented to place and Yes oriented to time SPEECH: speech normal Psych: COMMON NORMALS: mental status grossly normal and cooperative Skin: COMMON NORMALS: no rashes or lesions noted GENERAL SKIN EXAM: no rashes or lesions noted Discharge Data Data Completed and Pending: Completed Studies During Hospitalization Category Date Time Status CT angio chest PE protcl 32803 Urge nt Cat Scan 04/21/20 20:38 Completed XR chest 1V asael ble 15970 Stat Exams 04/21/20 17:24 Completed CV echo limited 9 3308 Stat Ultrasound 04/22/20 08:05 Completed Pending at discharge Category Date Time Status Blood Culture Sta t Lab 04/22/20 00:58 Results Sputum Culture an d Gram Stain Routi ne Lab 04/22/20 10:57 Results Labs from last 24 hours 04/23/20 04/23/20 04:19 04:19 WBC 3.3 L RBC 2.80 L Hgb 8.6 L Hct 26.2 L MCV 93.6 MCH 30.7 MCHC 32.8 RDW 14.6 Plt Count 209 MPV 10.0 Neut % (Auto) 82.2 Lymph % (Auto) 16.0 [place] % (Auto) 1.5 Eos % (Auto) 0.0 Baso % (Auto) 0.0 Neut # (Auto) 2.67 Lymph # (Auto) 0.5 L [place] # (Auto) 0.1 L Eos # (Auto) 0.0 Baso # (Auto) 0.0 Nucleated RBC % (a uto) 0 Nucleated RBCs # 0.0 Sodium 129 L Potassium 5.2 H Chloride 95 L Carbon Dioxide 22 Anion Gap 17.2 BUN 34 H Creatinine 1.5 H GFR Calculation 35.2 L Glucose 118 H Calculated Osmolal ity 277 L Calcium 9.4 Vitals: Last Vital Signs Temp 97.8 F 04/23/20 11:26 Pulse 65 04/23/20 11:26 Resp 18 04/23/20 11:26 BP 156/81 04/23/20 11:26 Pulse Ox 96 04/23/20 11:26 Discharge Plan Discharge Patient Disposition: Home Health Service Condition: Stable Prescriptions: New tramadol 50 mg tablet 50 mg PO Q8H PRN (Reason: pain) 3 Days Qty: 9 RF: 0 levofloxacin 750 mg tablet 750 mg PO DAILY 14 Days Qty: 14 RF: 0 prednisone 20 mg Tablet 40 mg PO DAILY 5 Days Qty: 10 RF: 0 Continued Spiriva with HandiHaler 18 mcg capsule, w/inhalation device 1 cap INHALATION DAILY RF: 0 atorvastatin 20 mg tablet 20 mg PO DAILY 30 Days Qty: 30 RF: 5 levothyroxine 50 mcg capsule 50 mcg PO DAILY 30 Days Qty: 30 RF: 5 amlodipine 5 mg tablet 5 mg PO DAILY 30 Days Qty: 30 RF: 5 aspirin 81 mg tablet,delayed release (DR/EC) 81 mg PO DAILY 30 Days Qty: 30 RF: 5 bumetanide 1 mg tablet 1 mg PO .qod 30 Days Qty: 15 RF: 5 citalopram [Celexa] 40 mg tablet 40 mg PO DAILY 30 Days Qty: 30 RF: 5 Daliresp 500 mcg tablet 500 mcg PO DAILY 30 Days Qty: 30 RF: 5 hydralazine 100 mg tablet 100 mg PO TID 30 Days Qty: 90 RF: 5 isosorbide mononitrate 60 mg tablet extended release 24 hr 60 mg PO DAILY 30 Days Qty: 30 RF: 5 omeprazole 20 mg capsule,delayed release(DR/EC) 20 mg PO DAILY 30 Days Qty: 30 RF: 5 ropinirole 1 mg tablet 1 mg PO DAILY 30 Days Qty: 30 RF: 5 Symbicort 160-4.5 mcg/actuation HFA aerosol inhaler 2 puff INHALATION BID 30 Days Qty: 10.2 RF: 5 albuterol sulfate 2.5 mg /3 mL (0.083 %) solution for nebulization 2.5 mg INHALATION QID PRN (Reason: Shortness Of Breath) 30 Days Qty: 75 RF: 5 nitroglycerin [Nitrostat] 0.4 mg tablet, sublingual 0.4 mg SUBLINGUAL Q5M PRN (Reason: Chest Pain) 30 Days Qty: 30 RF: 5 montelukast [Singulair] 10 mg tablet 10 mg PO DAILY 30 Days Qty: 30 RF: 5 albuterol sulfate 90 mcg/actuation Hfa Aerosol Inhaler 2 puff INHALATION 6XD PRN (Reason: Shortness Of Breath) RF: 0 metoprolol succinate 100 mg tablet extended release 24 hr 50 mg PO DAILY RF: 0 fluticasone propionate [Flonase Allergy Relief] 50 mcg/actuation [place],Suspension 2 spray INTRANASAL DAILY PRN (Reason: unknown) RF: 0 Discontinued atorvastatin 10 mg tablet 10 mg PO DAILY 30 Days Qty: 30 RF: 5 Discharge Orders: Discharge Order (Routine); Ordered 04/23/20 Ordered By: Cynthia Sweet Referrals: Guillermo Culver MD [Physician] - 4-7 days (with repeat limited ECHO) Nancy Carrasco FNP-C [Primary Care Provider] - 1-3 days Ade Ballesteros MD [Staff Physician] - 4-7 days Discharge Diet: Advance as tolerated Discharge Activity: Increase activity as tolerated and Oxygen as instructed Activity Restrictions/Additional Instructions: Discharge to home with prednisone 40 mg daily for an additional 5 days Discharge to home with Levaquin, antibiotic, for additional 14 days Continue with oxygen as previously prescribed Follow-up with Dr. Ballesteros as scheduled Follow-up with primary care provider in 2 to 3 days Follow-up with cardiology office as soon as first appointment is available may need repeat ultrasound of your heart Call your physician or present to the ED for any acute illness or concern For any worsening chest pain or shortness of breath please present to the ED Discharge Attestations Time Spent in Discharge Care*: greater than 30 min Specific Discharge Activities: Specific discharge activities: educating patient, discussing with case management rn/social workers/dc planners and documenting/other paperwork Quality Metrics Clinical Quality Measures During this hospital stay, did patient experience: None Coding Level of Care Code Acute Flex O Writer Operator for Chg Fwd Diagnoses Right lower lobe pneumonia J18.9 Hypothyroidism E03.9 Hypothyroidism type: acquired COPD (chronic obstructive pulmonary disease) J44.9 COPD type: unspecified COPD Hyponatremia E87.1 Chronic kidney disease N18.3 Chronic kidney disease stage: stage 3 (moderate)
--- NOTE | 2020-04-23 15:38 | PC.RESP ---
Pulmonary Rehab information sent to patient.
== END 2020-04-23 15:00 | disposition home health service (06) ==
LOC: ER 20:17 → MEDSURG 04-22 05:07
PROVIDERS: Emergency Medicine; Family Medicine; Admitting Provider Internal Medicine; PCP Nurse Practitioner Family; Visit Provider Family Medicine
DX: J18.9 Pneumonia, unspecified organism (principal); E03.9 Hypothyroidism, unspecified; J44.9 Chronic obstructive pulmonary disease, unspecified; E87.1 Hypo-osmolality and hyponatremia; N18.30 Chronic kidney disease, stage 3 unspecified; Z99.81 Dependence on supplemental oxygen; D64.9 Anemia, unspecified; D72.819 Decreased white blood cell count, unspecified; Z79.82 Long term (current) use of aspirin; F32.9 Major depressive disorder, single episode, unspecified; Z87.891 Personal history of nicotine dependence
CPT/HCPCS: 12345; 36415; 36600; 71045; 71275; 80048; 80051; 80053; 82810; 83605; 83690; 83735; 83880; 83986; 84145; 85025; 85378; 85610; 86140; 86403; 87040; 87070; 87106; 87205; 87426; 87449; 93308; 94640; 96365; 96367; 96372; 96375; 97110; 97161; 97165; 99282; 99285; G0378; J0456; J0696; J1644; J2270; J2405; J7050; J7512; Q0144; Q9967

== ENCOUNTER 2020-05-02 06:17 | Outpatient (CLI) | payer MEDICAID, SELFPAY ==
[2020-05-02 09:50] LABS: Basophils % 0.3 %; Hematocrit 29.3 % (37.0-47.0); Hemoglobin 9.5 g/dL (11.5-15.3); Lymphocytes # 1.4 10^3/uL (0.8-4.8); Lymphocytes % 19.5 %; Mean Corpuscular HGB Conc 32.4 g/dL (30.0-36.0); Mean Corpuscular Hemoglobin 30.5 pg (28.0-34.0); Mean Corpuscular Volume 94.2 fL (81-99); Mean Platelet Volume 8.7 fL (7.4-10.4); Monocytes # 0.8 10^3/uL (0.2-0.9); Monocytes % 11.5 %; Neutrophils # 4.69 10^3/uL (1.8-7.7); Neutrophils % 67.5 %; Nucleated Red Blood Cells % 0 %; Platelet Count 219 10^3/cmm (130-400); Red Blood Count 3.11 10^6/uL (4.1-5.3); Red Cell Distribution Width 14.9 % (12.1-15.1); White Blood Count 6.9 10^3/uL (4.0-10.0)
[2020-05-02 10:11] LABS: Alanine Aminotransferase 6 U/L (0-33); Albumin Level 3.4 g/dL (3.5-5.2); Alkaline Phosphatase 56 IU/L (35-105); Anion Gap 13.6 (5-19); Aspartate Amino Transferase 13 U/L (0-32); Blood Urea Nitrogen 21 mg/dL (8-23); Carbon Dioxide 25 mmol/L (22-29); Chloride 97 mmol/L (98-107); Globulin 2.8 g/dL (1.3-4.6); Glomerular Filtration Rate 30.5 mL/min (90-130); Glucose 66 mg/dL (65-115); Osmolality Calculated 275 mOsm/kg (285-295); Potassium 3.6 mmol/L (3.5-5.1); Sodium 132 mmol/L (136-145); Total Bilirubin 0.2 mg/dL (0.15-1.2); Total Protein 6.2 g/dL (6.6-8.7)
--- NOTE | 2020-05-02 11:16 | ONC FU_ITS ---
Dr. Ballesteros follow up note Patient: Hali James Unit #: [id number]: 1955 Dicatated By: Ade Ballesteros M.D.Date of Visit:May 02, 2020 Onc Med Follow-up/Prog Note History of Present Illness: Ms. Hali James, is a 64-year-old female with a history of anemia. As per patient, first time she was diagnosed with anemia was not 2014 or , at that time she was given oral iron supplement for 5 or 6 months with that anemia was resolved until recently when her routine lab work-up done on January 30, 2020 showed white blood count 3.4, hemoglobin 9.2 g hematocrit 27.9 platelets 171,000 MCV 85 and CMP showed creatinine 2, and anemia work-up including iron studies showed iron 53, iron saturation 29.2, TIBC 181 ferritin 113, bilirubin 0.2, stool for occult blood was negative Patient denies any history of blood transfusion, patient had colonoscopy done at age 62 it was unremarkable but not sure about EGD Patient has history of hysterectomy and bilateral oophorectomy at age 22 for incompetent cervix. Patient denies any jaundice, denies any melena or hematochezia, denies any hemoptysis or hematemesis, denies any night sweats, denies any abdominal fullness, denies any peripheral lymphadenopathy. Denies any bony pain denies any weight loss. Underwent bone marrow on April 17, 2020 showed trilineage hematopoiesis, and early/evolving dysplastic process cannot be entirely excluded. Marked decrease storage iron, no ring sideroblasts seen. No significant reticulin fibrosis. Also showed several small to intermediate sized paratrabecular and none paratrabecular lymphoid aggregate which comprises only 5 to 10% of the sample. Given the rare CD5 positive monotypic B-cell detected on flow cytometry, there was a concern for involvement of B-cell neoplasm CLL is possible but mantle cell lymphoma was not entirely ruled out, immunohistochemistry Was done which confirmed no evidence of overt B-cell malignancy so this abnormal monoclonal B-cell population seen on my evaluation is consistent with monoclonal B-cell lymphocytosis of undetermined significance FISH for MDS is pending Came for follow-up, denies any specific complaint except she was in the hospital on April 21, 2020 with right lower lobe pneumonia and was treated with antibiotic and responded well and still taking oral antibiotics. Denies any fever chills denies any melena hematochezia denies any nausea or vomiting denies any diarrhea or constipation denies any jaundice. Medications: Albuterol Sulfate (sensor) 1 Puff(s) (of 108 (90 base) mcg/act) Aerosol Powder, Breath Activated Inhalation daily, amLODIPine Besylate 1 Tablet Oral daily, Aspirin 1 Tablet (of 81 mg) Tablet, enteric coated Oral daily, Atorvastatin Calcium 1 Tablet (of 30 mg) Oral daily, Budesonide-Formoterol Fumarate 1 Puff(s) (of 160-4.5 mcg/act) Aerosol Inhalation daily, Celecoxib 1 Capsule (of 200 mg) Oral daily, Daliresp 1 Tablet (of 500 mcg) Oral daily, FLUoxetine HCl 1 Capsule (of 20 mg) Oral daily, Furosemide 1 Tablet (of 20 mg) Oral daily, hydrALAZINE HCl 1 Tablet (of 100 mg) Oral t.i.d., Irbesartan 1 Tablet (of 300 mg) Oral daily, Isosorbide Mononitrate ER 1 Tablet (of 30 mg) Tablet SR 24 HR Oral daily, Levothyroxine Sodium 1 Tablet (of 25 mcg) Oral daily, Metoprolol Succinate ER 1 Tablet (of 100 mg) Tablet SR 24 HR Oral b.i.d., Nitroglycerin 1 (0.4 mg) Tablet, sublingual Sublingual PRN, Omeprazole 1 Capsule (of 20 mg) Capsule Delayed Release Oral daily, rOPINIRole HCl 1 Tablet (of 1 mg) Oral daily, Spiriva Respimat 1 (1.25 mcg/act) Aerosol, solution Inhalation daily Allergies: Lisinopril and Sulfa Antibiotics. Review of Systems: Review of Systems is not available for this patient. Vital Signs: Performed on May 02, 2020 10:30 Height - 60.00 in Weight - 94.6 lbs (HIGH) BSA - 1.36 sq.m BMI - 18.48 Temperature - 98.7 F Pulse - 69 /min Respiration - 18 /min BP - 148/70 mm(hg) (HIGH) O2 Sat - 97 % Pain - 5 Performance Status: 0 - Fully active, able to carry on all predisease activities without restrictions. (ECOG) Physical Examination: ENMT - No mouth sores, no thrush, no jaundice, Respiratory - Lungs are clear to auscultation, Cardiovascular - Regular rate and rhythm of heart, Abdomen - Soft, bowel sounds present, Extremities - No visible edema. Lab/Imaging: Test performed on Feb 06, 2020 13:10 Ferritin 116 ng/mL Iron 64 mcg/dL Vitamin B12 1206 pg/mL Iron Binding Capacity (TIBC) 202 mcg/dl % Iron Saturation 31.6 % UIBC 138 mcg/dL WBC 3.3 10 3/uL RBC 3.40 10 6/uL HGB 9.2 g/dL HCT 28.2 % MCV 82.9 fL MCH 27.1 pg MCHC 32.6 g/dL RDW 17.7 % Platelet Count 168 10 3/cmm MPV 10.2 fL Neutrophils 1.35 10 3/uL Lymphocytes 1.6 10 3/uL Monocytes 0.3 10 3/uL Eosinophils 0.0 10 3/uL Basophils 0.0 10 3/uL Neutrophil % 41.3 % Lymphocyte % 48.3 % Monocyte % 9.8 % Eosinophil % 0.0 % Basophils % 0.3 % NRBC % 0 % Impression: Normocytic/normochromic anemia etiology unclear could be multifactorial including but not limited to anemia of renal disease, anemia of chronic disease, considering her age and concurrent leukopenia underlying myelodysplasia cannot be ruled out. Or due to minerals deficiency like copper or zinc or hypothyroidism. Underwent bone marrow evaluation on April 17, 2020 which showed markedly decreased storage iron, no ring sideroblasts seen. No significant fibrosis. Evolving/early MDS cannot be ruled out. 1% CD 5 positive monotypic B-cell with lambda light chain restriction was seen on flow cytometry, immunohistochemistry ruled out overt B-cell malignancy so this could be due to monoclonal B-cell lymphocytosis of undetermined significance. Renal insufficiency COPD Plan: Discussed with patient regarding her labs white blood count 6.9 hemoglobin 9.5 hematocrit 29.3 platelets 219,000 CMP shows creatinine 1.7 And bone marrow findings which showed decreased iron stores, early/evolving MDS cannot be ruled out, incidental finding of earlier monotypic B-cell detected on flow cytometry, phenotypically suggestive of CLL/small lymphocytic lymphoma but immunohistochemistry testing confirmed no evidence of overt B-cell neoplasm show 1% CD positive monotypic B-cell lymphocytes with a lambda light chain restriction seen on flow cytometry could be due to monoclonal B-cell lymphocytosis of undetermined significance Clinically, patient is doing well with no new signs symptom except recovering from recently diagnosed right lower lobe pneumonia. And is follow-up CBC shows stable mild/moderate anemia.Which is stable, etiology is unclear could be early/evolving MDS but FISH for MDS is pending moreover markedly decreased storage iron observed on marrow evaluation. In that case, we will try oral iron along with a multivitamin for 1 month and she will return to clinic with CBC in a month. Other possibility could be underlying mild renal insufficiency. Signed By: Ade Ballesteros M.D. <<Signature on File>>
== END 2020-05-02 06:18 | disposition home or self-care (01) ==
LOC: ONCMED 06:18
PROVIDERS: PCP Nurse Practitioner Family; Visit Provider Internal Medicine Hematology & Oncology
DX: D64.9 Anemia, unspecified (principal); N28.9 Disorder of kidney and ureter, unspecified; J44.9 Chronic obstructive pulmonary disease, unspecified; J18.8 Other pneumonia, unspecified organism; Z79.2 Long term (current) use of antibiotics
CPT/HCPCS: 36415; 80053; 85025; 99214

== ENCOUNTER 2020-05-27 06:00 | Outpatient (CLI) | payer MEDICAID, SELFPAY ==
[2020-05-27 11:25] LABS: Basophils % 0.5 %; Hematocrit 29.7 % (37.0-47.0); Hemoglobin 9.5 g/dL (11.5-15.3); Lymphocytes # 2.1 10^3/uL (0.8-4.8); Lymphocytes % 49.2 %; Mean Corpuscular Hemoglobin 30.1 pg (28.0-34.0); Mean Platelet Volume 8.9 fL (7.4-10.4); Monocytes # 0.4 10^3/uL (0.2-0.9); Monocytes % 9.2 %; Neutrophils # 1.77 10^3/uL (1.8-7.7); Neutrophils % 40.9 %; Nucleated Red Blood Cells % 0 %; Platelet Count 210 10^3/cmm (130-400); Red Blood Count 3.16 10^6/uL (4.1-5.3); Red Cell Distribution Width 13.7 % (12.1-15.1); White Blood Count 4.3 10^3/uL (4.0-10.0)
--- NOTE | 2020-05-27 15:13 | ONC FU_ITS ---
Dr. Ballesteros follow up note Patient: Hali James Unit #: [id number]: 1955 Dicatated By: Ade Ballesteros M.D.Date of Visit:May 27, 2020 Onc Med Follow-up/Prog Note History of Present Illness: Ms. Hali James, is a 65-year-old female with a history of anemia. As per patient, first time she was diagnosed with anemia was not 2014 or , at that time she was given oral iron supplement for 5 or 6 months with that anemia was resolved until recently when her routine lab work-up done on January 30, 2020 showed white blood count 3.4, hemoglobin 9.2 g hematocrit 27.9 platelets 171,000 MCV 85 and CMP showed creatinine 2, and anemia work-up including iron studies showed iron 53, iron saturation 29.2, TIBC 181 ferritin 113, bilirubin 0.2, stool for occult blood was negative Patient denies any history of blood transfusion, patient had colonoscopy done at age 62 it was unremarkable but not sure about EGD Patient has history of hysterectomy and bilateral oophorectomy at age 22 for incompetent cervix. Patient denies any jaundice, denies any melena or hematochezia, denies any hemoptysis or hematemesis, denies any night sweats, denies any abdominal fullness, denies any peripheral lymphadenopathy. Denies any bony pain denies any weight loss. Underwent bone marrow on April 17, 2020 showed trilineage hematopoiesis, and early/evolving dysplastic process cannot be entirely excluded. Marked decrease storage iron, no ring sideroblasts seen. No significant reticulin fibrosis. Also showed several small to intermediate sized paratrabecular and none paratrabecular lymphoid aggregate which comprises only 5 to 10% of the sample. Given the rare CD5 positive monotypic B-cell detected on flow cytometry, there was a concern for involvement of B-cell neoplasm CLL is possible but mantle cell lymphoma was not entirely ruled out, Flow cytometry, showed monotypic B-cell population, approximately 1%, is positive for CD19, CD20,'s CD5 and shows surface lambda light chain restriction. CD10 is negative so consistent with rare monotypic B-cell detected, phenotypically suggestive of CLL/small lymphocytic lymphoma but Immunohistochemistry ruled out overt B-cell malignancy so it could be due to monoclonal B-cell lymphocytosis of undetermined significance FISH for MDS also negative Came for follow-up, complaining of off and on night sweating and now with weight loss which is unintentional but no recurrent fever, no nausea or vomiting no diarrhea or constipation, no abdominal fullness, no peripheral lymphadenopathy. . Medications: Albuterol Sulfate (sensor) 1 Puff(s) (of 108 (90 base) mcg/act) Aerosol Powder, Breath Activated Inhalation daily, amLODIPine Besylate 1 Tablet Oral daily, Aspirin 1 Tablet (of 81 mg) Tablet, enteric coated Oral daily, Atorvastatin Calcium 1 Tablet (of 30 mg) Oral daily, Budesonide-Formoterol Fumarate 1 Puff(s) (of 160-4.5 mcg/act) Aerosol Inhalation daily, Celecoxib 1 Capsule (of 200 mg) Oral daily, Daliresp 1 Tablet (of 500 mcg) Oral daily, FLUoxetine HCl 1 Capsule (of 20 mg) Oral daily, Furosemide 1 Tablet (of 20 mg) Oral daily, hydrALAZINE HCl 1 Tablet (of 100 mg) Oral t.i.d., Irbesartan 1 Tablet (of 300 mg) Oral daily, Isosorbide Mononitrate ER 1 Tablet (of 30 mg) Tablet SR 24 HR Oral daily, Levothyroxine Sodium 1 Tablet (of 25 mcg) Oral daily, Metoprolol Succinate ER 1 Tablet (of 100 mg) Tablet SR 24 HR Oral b.i.d., Nitroglycerin 1 (0.4 mg) Tablet, sublingual Sublingual PRN, Omeprazole 1 Capsule (of 20 mg) Capsule Delayed Release Oral daily, rOPINIRole HCl 1 Tablet (of 1 mg) Oral daily, Spiriva Respimat 1 (1.25 mcg/act) Aerosol, solution Inhalation daily Allergies: Lisinopril and Sulfa Antibiotics. Review of Systems: Constitutional - Appetite is diminished and weight has slightly decreased. No fever or hot flashes. Energy level is poor. Positive for night sweats, ENMT - No sinus congestion/drainage. No mouth sores. No sore throat or difficulty swallowing, Hematologic/Lymphatic - Positive for easy bruising, Respiratory - Positive for shortness of breath. No cough. No pleuritic pain or hemoptysis, Cardiovascular - No angina pain. No palpitations, Gastrointestinal - No nausea or vomiting. Positive for heartburn, no acid reflux. No diarrhea or constipation. No blood in the stool or black stools, Genitourinary (F) - No dysuria or hematuria. No urinary frequency. No urgency or incontinence, Musculoskeletal - No joint or bone pain, Neurologic - No headache or dizziness. No numbness or tingling. No other focal neurologic symptoms, Psychiatric - Positive for insomnia, no anxiety or depression. Vital Signs: Performed on May 27, 2020 12:45 Height - 60.00 in Weight - 83.6 lbs (LOW) BSA - 1.29 sq.m BMI - 16.33 (LOW) Temperature - 98.6 F Pulse - 69 /min Respiration - 16 /min BP - 124/76 mm(hg) O2 Sat - 97 % Pain - 0 Performance Status: 0 - Fully active, able to carry on all predisease activities without restrictions. (ECOG) Physical Examination: ENMT - No mouth sores, no thrush, no jaundice, Respiratory - Lungs are clear to auscultation, Cardiovascular - Regular rate and rhythm of heart, Abdomen - Soft, bowel sounds present, Extremities - No visible edema, No peripheral lymphadenopathy. Lab/Imaging: Test performed on May 02, 2020 09:36 Sodium 132 mmol/L Potassium 3.6 mmol/L Chloride 97 mmol/L CO2 25 mmol/L Anion Gap 13.6 BUN 21 mg/dL Creatinine 1.7 mg/dL Cr Clearance (Est) 23.24 mL/min eGFR 30.5 mL/min Glucose 66 mg/dL Osmolality - Calculated 275 mOsm/kg Calcium 9.0 mg/dL Protein, Total 6.2 g/dL Albumin 3.4 g/dL Globulin 2.8 g/dL Bilirubin, Total 0.2 mg/dL ALT (SGPT) 6 U/L AST (SGOT) 13 U/L Alkaline Phosphatase 56 IU/L WBC 6.9 10 3/uL RBC 3.11 10 6/uL HGB 9.5 g/dL HCT 29.3 % MCV 94.2 fL MCH 30.5 pg MCHC 32.4 g/dL RDW 14.9 % Platelet Count 219 10 3/cmm MPV 8.7 fL Neutrophils 4.69 10 3/uL Lymphocytes 1.4 10 3/uL Monocytes 0.8 10 3/uL Eosinophils 0.0 10 3/uL Basophils 0.0 10 3/uL Neutrophil % 67.5 % Lymphocyte % 19.5 % Monocyte % 11.5 % Eosinophil % 0.0 % Basophils % 0.3 % NRBC % 0 % Test performed on Mar 31, 2020 11:40 TSH 0.84 uIU/mL Test performed on Feb 20, 2020 15:30 Copper 129 mcg/dL Zinc 67 mcg/dL Test performed on Feb 06, 2020 13:10 Ferritin 116 ng/mL Folate, Serum 9.7 ng/mL Iron 64 mcg/dL Vitamin B12 1206 pg/mL Iron Binding Capacity (TIBC) 202 mcg/dl % Iron Saturation 31.6 % UIBC 138 mcg/dL Retic Count % 1.1100 % Impression: Normocytic/normochromic anemia etiology unclear could be multifactorial including but not limited to anemia of renal disease, anemia of chronic disease, considering her age and concurrent leukopenia underlying myelodysplasia cannot be ruled out. Or due to minerals deficiency like copper or zinc or hypothyroidism. Underwent bone marrow evaluation on April 17, 2020 which showed markedly decreased storage iron, no ring sideroblasts seen. No significant fibrosis. Evolving/early MDS cannot be ruled out. 1% CD 5 positive monotypic B-cell with lambda light chain restriction was seen on flow cytometry, immunohistochemistry ruled out overt B-cell malignancy so this could be due to monoclonal B-cell lymphocytosis of undetermined significance. Renal insufficiency COPD Plan: Discussed with patient regarding her labs white blood count 4.3 hemoglobin 9.5 hematocrit 29.7 platelets 210,000 Clinically, patient is doing well with no new signs symptom except off and on night sweats and now with weight loss which is unintentional, her bone marrow showed monoclonal, lymphocytosis of unknown significance , now concern is weight loss and off and on night sweats, will consider CT scan of chest abdomen pelvis rule out central lymphadenopathy due to lymphoproliferative disorder. And patient was also advised to continue oral iron and then return to clinic in 1 month with CBC CMP and LDH and with CT scan of chest abdomen pelvis. Signed By: Ade Ballesteros M.D. <<Signature on File>>
== END 2020-05-27 06:01 | disposition home or self-care (01) ==
LOC: ONCMED 06:01
PROVIDERS: PCP Nurse Practitioner Family; Visit Provider Internal Medicine Hematology & Oncology
DX: D64.9 Anemia, unspecified (principal); D72.819 Decreased white blood cell count, unspecified; R63.4 Abnormal weight loss; R61 Generalized hyperhidrosis; N28.9 Disorder of kidney and ureter, unspecified; J44.9 Chronic obstructive pulmonary disease, unspecified; Z68.1 Body mass index [BMI] 19.9 or less, adult
CPT/HCPCS: 36415; 85025; 99214

== ENCOUNTER → 2020-06-11 14:45 | Outpatient (BNVA) | payer MEDICAID, SELFPAY | PROVIDERS: PCP Nurse Practitioner Family; Visit Provider Nurse Practitioner Family | DX: M25.551 Pain in right hip (principal) | CPT/HCPCS: 73502 ==

== ENCOUNTER → 2020-06-24 14:59 | Outpatient (BNVA) | payer MEDICAID, SELFPAY | PROVIDERS: PCP Nurse Practitioner Family; Visit Provider Specialist | DX: G43.711 Chronic migraine without aura, intractable, with status migrainosus (principal); I67.1 Cerebral aneurysm, nonruptured; I13.0 Hypertensive heart and chronic kidney disease with heart failure and stage 1 through stage 4 chronic kidney disease, or unspecified chronic kidney disease; N18.30 Chronic kidney disease, stage 3 unspecified; I50.9 Heart failure, unspecified; Z87.891 Personal history of nicotine dependence | CPT/HCPCS: 99205 ==

== ENCOUNTER → 2020-06-27 09:53 | Outpatient (BNVA) | payer MEDICAID, SELFPAY | PROVIDERS: PCP Nurse Practitioner Family; Visit Provider Registered Nurse | DX: N18.30 Chronic kidney disease, stage 3 unspecified (principal) | CPT/HCPCS: 80069; 82043; 82306; 82310; 83970; 85025 ==

== ENCOUNTER 2020-07-07 09:08 | Outpatient (CLI) | payer MEDICAID, SELFPAY ==
--- NOTE | 2020-07-07 09:16 | CT_ITS ---
WS: [id number] Exam: CT chest abd pel w con* Date/Time of Exam: 07/07/2020 9:17 AM Reason For Exam: ANEMIA, POSSIBLE LYMPHOMA DLP: 707.[address] scans at [facility] use at least one of these dose optimization techniques: automat ed exposure control; mA and/or kV adjustment per patient size (includes targeted exams where dose is matched to clinical indication); or iterative reconstruction. The chest abdomen pelvis are evaluated in the axial plane with sagittal coronal reformatted images. 100 mL of the nonionic radiographic cont rast administered intravenously. CT scan of the chest. The lungs are clear and fully expanded. No pulmonary mass or nodule. The airway is patent. The thorac ic aorta is normal in caliber. The central pulmonary arteries are clear. No pleural or pericardial ef fusion. No lymphadenopathy in the chest. No axillary lymphadenopathy. No destructive bone lesions are chest wall defects. Prominent Schmorl's node noted in the T12 vertebral body. Coronary artery calcif ications.: CT/CT chest abd pel w con* IMPRESSION: 1. No sign of mass or lymphadenopathy in the chest. 2. Pulmonary hyperinflation which might indicate COPD. CT scan of the abdomen and pelvis with contrast. The liver, gallbladder, spleen, stomach and pancreas appear normal. Atrophic le ft kidney which contains several tiny cysts. Unremarkable right kidney. Normal adrenal glands. The portal vein and IVC are patent. A bifurcated abdominal aort ic stent is in place which is patent. There is an infrarenal abdominal aortic a neurysm that measures about 3.3 cm at greatest diameter. Small bowel loops are not dilated. Moderate amount stool in the colon. The colon is otherwise unrema rkable. No sign of acute appendix. No mass or adenopathy in the abdomen or pelv is. No free air. Unremarkable urinary bladder. There are surgical clips in both inguinal areas. No destructive bone lesions are seen. Moderately advanced dege nerative changes of the lower lumbar spine noted. IMPRESSION: 1. No sign of mass, lymphadenopathy or acute process in the abdomen or pelvis. 2. 3.3 cm infrarenal abdominal aortic aneurysm which has been repaired with a b ifurcated stent. The stent is patent. 3. Constipation. Other minor findings as above.
[2020-07-07] MEDS: iohexol 300 mg/mL 50 mL Btl PO (09:37)
[2020-07-07] MEDS: iodixanol 320 mg/mL 100mL Btl IV (10:46)
== END 2020-07-07 09:09 | disposition home or self-care (01) ==
LOC: RADWPI 09:12
PROVIDERS: PCP Nurse Practitioner Family; Visit Provider Internal Medicine Hematology & Oncology
DX: D64.9 Anemia, unspecified (principal)
CPT/HCPCS: 71260; 74177; Q9967

== ENCOUNTER 2020-07-16 13:12 | Outpatient (CLI) | payer MEDICAID, SELFPAY ==
[2020-07-16 14:25] LABS: Basophils # 0.1 10^3/uL (0.0-0.1); Basophils % 1.1 %; Hematocrit 32.4 % (37.0-47.0); Hemoglobin 10.5 g/dL (11.5-15.3); Lymphocytes # 1.6 10^3/uL (0.8-4.8); Lymphocytes % 34.1 %; Mean Corpuscular HGB Conc 32.4 g/dL (30.0-36.0); Mean Corpuscular Hemoglobin 28.8 pg (28.0-34.0); Mean Platelet Volume 9.1 fL (7.4-10.4); Monocytes # 0.3 10^3/uL (0.2-0.9); Monocytes % 6.5 %; Neutrophils # 2.77 10^3/uL (1.8-7.7); Neutrophils % 58.3 %; Nucleated Red Blood Cells % 0 %; Platelet Count 220 10^3/cmm (130-400); Red Blood Count 3.64 10^6/uL (4.1-5.3); Red Cell Distribution Width 12.9 % (12.1-15.1); White Blood Count 4.8 10^3/uL (4.0-10.0)
[2020-07-16 14:51] LABS: Alanine Aminotransferase 8 U/L (0-33); Albumin Level 3.5 g/dL (3.5-5.2); Alkaline Phosphatase 79 IU/L (35-105); Aspartate Amino Transferase 15 U/L (0-32); Blood Urea Nitrogen 19 mg/dL (8-23); Calcium 9.2 mg/dL (8.5-10.5); Carbon Dioxide 24 mmol/L (22-29); Chloride 101 mmol/L (98-107); Globulin 3.2 g/dL (1.3-4.6); Glomerular Filtration Rate 45.4 mL/min (90-130); Glucose 85 mg/dL (65-115); Lactate Dehydrogenase 186 U/L (135-214); Osmolality Calculated 280 mOsm/kg (285-295); Sodium 134 mmol/L (136-145); Total Bilirubin 0.2 mg/dL (0.15-1.2); Total Protein 6.7 g/dL (6.6-8.7)
== END 2020-07-16 13:13 | disposition home or self-care (01) ==
LOC: ONCMED 13:15
PROVIDERS: PCP Nurse Practitioner Family; Visit Provider Internal Medicine Hematology & Oncology
DX: D64.9 Anemia, unspecified (principal)
CPT/HCPCS: 36415; 80053; 83615; 85025

== ENCOUNTER 2020-07-17 05:51 | Outpatient (CLI) | payer MEDICAID, SELFPAY ==
--- NOTE | 2020-07-17 10:53 | ONC FU_ITS ---
Dr. Ballesteros follow up note Patient: Hali James Unit #: [id number]: 1955 Dicatated By: Ade Ballesteros M.D.Date of Visit:Jul 17, 2020 Onc Med Follow-up/Prog Note History of Present Illness: Ms. Hali James, is a 65-year-old female with a history of anemia. As per patient, first time she was diagnosed with anemia was not 2014 or , at that time she was given oral iron supplement for 5 or 6 months with that anemia was resolved until recently when her routine lab work-up done on January 30, 2020 showed white blood count 3.4, hemoglobin 9.2 g hematocrit 27.9 platelets 171,000 MCV 85 and CMP showed creatinine 2, and anemia work-up including iron studies showed iron 53, iron saturation 29.2, TIBC 181 ferritin 113, bilirubin 0.2, stool for occult blood was negative Patient denies any history of blood transfusion, patient had colonoscopy done at age 62 it was unremarkable but not sure about EGD Patient has history of hysterectomy and bilateral oophorectomy at age 22 for incompetent cervix. Patient denies any jaundice, denies any melena or hematochezia, denies any hemoptysis or hematemesis, denies any night sweats, denies any abdominal fullness, denies any peripheral lymphadenopathy. Denies any bony pain denies any weight loss. Underwent bone marrow on April 17, 2020 showed trilineage hematopoiesis, and early/evolving dysplastic process cannot be entirely excluded. Marked decrease storage iron, no ring sideroblasts seen. No significant reticulin fibrosis. Also showed several small to intermediate sized paratrabecular and none paratrabecular lymphoid aggregate which comprises only 5 to 10% of the sample. Given the rare CD5 positive monotypic B-cell detected on flow cytometry, there was a concern for involvement of B-cell neoplasm CLL is possible but mantle cell lymphoma was not entirely ruled out, Flow cytometry, showed monotypic B-cell population, approximately 1%, is positive for CD19, CD20,'s CD5 and shows surface lambda light chain restriction. CD10 is negative so consistent with rare monotypic B-cell detected, phenotypically suggestive of CLL/small lymphocytic lymphoma and FISH for MDS also negative CT scan of chest abdomen pelvis done on July 07, 2020 showed no sign of mass or lymphadenopathy in the chest, but COPD No sign of mass or lymphadenopathy or acute process in abdomen or pelvis. 3.3 cm infrarenal abdominal aortic aneurysm which has been repaired with bifurcated stent. Came for follow-up, denies any specific complaints, rather more energetic, tolerating oral iron well. Denies any night sweats denies any recurrent fever denies any peripheral lymphadenopathy or abdominal fullness. Denies any melena or hematochezia, denies any shortness of breath or palpitation, denies any jaundice. . Medications: Albuterol Sulfate (sensor) 1 Puff(s) (of 108 (90 base) mcg/act) Aerosol Powder, Breath Activated Inhalation daily, amLODIPine Besylate 1 Tablet Oral daily, Aspirin 1 Tablet (of 81 mg) Tablet, enteric coated Oral daily, Atorvastatin Calcium 1 Tablet (of 30 mg) Oral daily, Budesonide-Formoterol Fumarate 1 Puff(s) (of 160-4.5 mcg/act) Aerosol Inhalation daily, Celecoxib 1 Capsule (of 200 mg) Oral daily, Daliresp 1 Tablet (of 500 mcg) Oral daily, FLUoxetine HCl 1 Capsule (of 20 mg) Oral daily, Furosemide 1 Tablet (of 20 mg) Oral daily, hydrALAZINE HCl 1 Tablet (of 100 mg) Oral t.i.d., Irbesartan 1 Tablet (of 300 mg) Oral daily, Isosorbide Mononitrate ER 1 Tablet (of 30 mg) Tablet SR 24 HR Oral daily, Levothyroxine Sodium 1 Tablet (of 25 mcg) Oral daily, Metoprolol Succinate ER 1 Tablet (of 100 mg) Tablet SR 24 HR Oral b.i.d., Nitroglycerin 1 (0.4 mg) Tablet, sublingual Sublingual PRN, Omeprazole 1 Capsule (of 20 mg) Capsule Delayed Release Oral daily, rOPINIRole HCl 1 Tablet (of 1 mg) Oral daily, Spiriva Respimat 1 (1.25 mcg/act) Aerosol, solution Inhalation daily Allergies: Lisinopril and Sulfa Antibiotics. Review of Systems: Review of Systems is not available for this patient. Vital Signs: Performed on Jul 17, 2020 10:10 Height - 60.00 in Weight - 84.5 lbs (HIGH) BSA - 1.29 sq.m BMI - 16.50 (LOW) Temperature - 98.2 F (LOW) Pulse - 79 /min Respiration - 16 /min BP - 198/99 mm(hg) (HIGH) O2 Sat - 95 % (LOW) Pain - 0 Performance Status: 0 - Fully active, able to carry on all predisease activities without restrictions. (ECOG) Physical Examination: ENMT - No mouth sores, no thrush, no jaundice, no cervical lymphadenopathy, no axillary lymphadenopathy, Respiratory - Poor air entry otherwise clear, Cardiovascular - Regular rate and rhythm of heart, Abdomen - Soft, bowel sounds present, no organomegaly, Extremities - No visible edema. Lab/Imaging: Test performed on May 27, 2020 11:10 WBC 4.3 10 3/uL RBC 3.16 10 6/uL HGB 9.5 g/dL HCT 29.7 % MCV 94.0 fL MCH 30.1 pg MCHC 32.0 g/dL RDW 13.7 % Platelet Count 210 10 3/cmm MPV 8.9 fL Neutrophils 1.77 10 3/uL Lymphocytes 2.1 10 3/uL Monocytes 0.4 10 3/uL Eosinophils 0.0 10 3/uL Basophils 0.0 10 3/uL Neutrophil % 40.9 % Lymphocyte % 49.2 % Monocyte % 9.2 % Eosinophil % 0.0 % Basophils % 0.5 % NRBC % 0 % Test performed on May 02, 2020 09:36 Sodium 132 mmol/L Potassium 3.6 mmol/L Chloride 97 mmol/L CO2 25 mmol/L Anion Gap 13.6 BUN 21 mg/dL Creatinine 1.7 mg/dL Cr Clearance (Est) 23.24 mL/min eGFR 30.5 mL/min Glucose 66 mg/dL Osmolality - Calculated 275 mOsm/kg Calcium 9.0 mg/dL Protein, Total 6.2 g/dL Albumin 3.4 g/dL Globulin 2.8 g/dL Bilirubin, Total 0.2 mg/dL ALT (SGPT) 6 U/L AST (SGOT) 13 U/L Alkaline Phosphatase 56 IU/L Test performed on Mar 31, 2020 11:40 TSH 0.84 uIU/mL Test performed on Feb 20, 2020 15:30 Copper 129 mcg/dL Zinc 67 mcg/dL Test performed on Feb 06, 2020 13:10 Ferritin 116 ng/mL Folate, Serum 9.7 ng/mL Iron 64 mcg/dL Vitamin B12 1206 pg/mL Iron Binding Capacity (TIBC) 202 mcg/dl % Iron Saturation 31.6 % UIBC 138 mcg/dL Retic Count % 1.1100 % Impression: Normocytic/normochromic anemia etiology unclear could be multifactorial including but not limited to anemia of renal disease, anemia of chronic disease, considering her age and concurrent leukopenia underlying myelodysplasia cannot be ruled out. Or due to minerals deficiency like copper or zinc or hypothyroidism. Underwent bone marrow evaluation on April 17, 2020 which showed markedly decreased storage iron, no ring sideroblasts seen. No significant fibrosis. Evolving/early MDS cannot be ruled out. 1% CD 5 positive monotypic B-cell with lambda light chain restriction was seen on flow cytometry, immunohistochemistry ruled out overt B-cell malignancy so this could be due to monoclonal B-cell lymphocytosis of undetermined significance. CT scan of chest abdomen pelvis done on July 07, 2020 showed no central lymphadenopathy or organomegaly Renal insufficiency COPD Plan: Discussed with patient regarding her labs white blood count 4.8 hemoglobin 10.5 hematocrit 32.4 compared to 9.5 g on May 27, 2020, platelets are 220,000 CMP within normal limits and CT scan of chest abdomen pelvis which showed no central lymphadenopathy or organomegaly Clinically, patient is doing reasonably well, more energetic, her follow-up labs shows improvement in her hemoglobin, now 10.5 g compared to 9.5 g on May 27, 2020. Patient is tolerating oral iron well, will continue with same and repeat her CBC and iron studies in 2 months As far as lymphoproliferative disorder observed and bone marrow flow cytometry is concerned, her CT scan of chest abdomen pelvis shows no central lymphadenopathy or organomegaly and physical exam shows no peripheral lymphadenopathy. Her CBC shows white blood count in normal range, no evidence of lymphocytosis. Platelet count is normal range, hemoglobin is improving on oral iron, patient has no B symptoms, clinically it appears she has mild lymphoproliferative disorder of unknown significance, will monitor her closely and she will return to clinic in 2 months with CBC CMP, LDH and iron studies. Patient was advised in case she experience night sweats or peripheral lymphadenopathy or recurrent fevers or weight loss she need to call us otherwise we will see her back in 2 months. Signed By: Ade Ballesteros M.D. <<Signature on File>>
== END 2020-07-17 05:52 | disposition home or self-care (01) ==
PROVIDERS: PCP Nurse Practitioner Family; Visit Provider Internal Medicine Hematology & Oncology
DX: D64.9 Anemia, unspecified (principal); J44.9 Chronic obstructive pulmonary disease, unspecified; N28.9 Disorder of kidney and ureter, unspecified
CPT/HCPCS: G0463

== ENCOUNTER 2020-07-18 14:00 | Outpatient (CLI) | payer MEDICAID, SELFPAY ==
--- NOTE | 2020-07-18 15:00 | USCV_ITS ---
Hali James Age: 65 Gender: F : 1955 Exam Date: 07/18/2020 14:15 Ordering Phys: Edil Hill MD (Andy) ([email or web address]) Technologist: Yoanna Kimbrough Exam Location: [facility] [place] Indication: S/P Right angio 2019. Rt groin lump and tenderness Findings Palpable area at right groin is scar tissue. No pseudoaneurysm or AV fistula or adenopathy. Normal CFV and artery. Conclusions No pseuroaneurysm at the right groin. Scar tissue at area of interest. Dr. Leah Monroy DO (Electronically Signed) Final Date: 18 July 2020 14:53 S
== END 2020-07-18 14:01 | disposition home or self-care (01) ==
LOC: US 14:00
PROVIDERS: PCP Nurse Practitioner Family; Visit Provider Thoracic Surgery (Cardiothoracic Vascular Surgery)
DX: R19.09 Other intra-abdominal and pelvic swelling, mass and lump (principal)
CPT/HCPCS: 93926

== ENCOUNTER → 2020-07-25 13:23 | Outpatient (BNVA) | payer MEDICAID, SELFPAY | PROVIDERS: PCP Nurse Practitioner Family; Visit Provider Internal Medicine Critical Care Medicine | DX: Z11.59 Encounter for screening for other viral diseases (principal); J44.9 Chronic obstructive pulmonary disease, unspecified | CPT/HCPCS: 87635 ==

== ENCOUNTER 2020-07-31 11:04 | Outpatient (CLI) | payer MEDICAID, SELFPAY ==
--- NOTE | 2020-07-31 11:36 | PFTS_ITS ---
Date of Study:07/31/20 Date of Dictation: 08/07/2020 MECHANICS: Forced vital capacity (FVC) is reduced 65%. Forced expiratory volume in one second (FEV1) is severely reduced 42%. FEV1/FVC is reduced. There is significant bronchodilator response. FLOW VOLUME LOOP: Severe coving of the expiratory limb suggestive of severe airway obstruction . LUNG VOLUMES: Total lung capacity (TLC) is normal. Residual volume (RV) 159% is increased suggestive of moderate air trapping. DIFFUSING CAPACITY FOR CARBON MONOXIDE: Moderately reduced 57% . INTERPRETATION: The pulmonary function tests are consistent with severe obstructive ventilatory defect with moderate air trapping. Moderate gas transfer defect. Please correlate clinically. MTDD
== END 2020-07-31 11:05 | disposition home or self-care (01) ==
LOC: RT 11:04
PROVIDERS: PCP Nurse Practitioner Family; Visit Provider Internal Medicine Critical Care Medicine
DX: J44.9 Chronic obstructive pulmonary disease, unspecified (principal)
CPT/HCPCS: 94060; 94726; 94729; J7611

== ENCOUNTER 2020-08-01 07:48 | Outpatient (CLI) | payer MEDICAID, SELFPAY ==
--- NOTE | 2020-08-01 08:01 | USCV_ITS ---
Hali James Age: 65 Gender: F : 1955 Exam Date: 08/01/2020 08:13 Ordering Phys: Edil Hill MD (Andy) ([email or web address]) Technologist: Tiffanie Miller Exam Location: [facility] [place] Indication: AAA HISTORY: Diameter (cm) AP x Transverse x Length Velocity (cm/s) Waveform Prox Aorta: 2.83 x 3.54 x 133.10 Triphasic Mid Aorta: x x 148.30 Distal Aorta: 2.97 x 3.12 x Right Iliac Prox: 0.92 x 1.33 x 34.70 Left Iliac Prox: 0.82 x 0.87 x 35.50 Stent Prox Landing 0.59 x 0.85 x 153.90 Aneurysmal Sac Max 2.97 x 3.15 x 181.80 Lt Lat Sac Dim 0.44 Rt Lat Sac Dim 1.02 Stent Dist Landing 1.37 x 1.09 x 181.80 Right Iliac Stent 0.62 x 0.79 x 76.10 Left Iliac Stent 0.69 x 0.87 x 114.10 Right Renal Art 137.20 Left Renal Art 120.60 FINDINGS: Proximal aorta measured 2.8 x 3.54 cm. The infrarenal aorta measured 2.97 x 3.12 cm. Right proximal iliac artery measures 0.92 x 1.33. Left proximal iliac artery measures 0.82 x 0.87 cm. The stent proximal landing zone measured 0.59 x 0.85 cm; distal landing zone measures 1.37 x 1.09 Aneurysm sac, maximum diameter was measuring 2.97 x 3.15 cm Right iliac stent graft measuring .62.0.79. the left iliac stent graft was measuring 0.69 x 0.87 CONCLUSIONS 1. Patent aortoiliac stent grafts. 2. The landing zones could not be delineated well. So the measurements could be misleading 3. The aneurysm sac size has slightly increased, compared to the study from 02/19/2020. 4. The study could not evaluate for endoleak. Consider CTA, to better evaluate Dr Guillermo Culver MD [facility] (Electronically Signed) Final Date: 01 August 2020 18:01 S
== END 2020-08-01 07:49 | disposition home or self-care (01) ==
LOC: RAD 07:51
PROVIDERS: PCP Nurse Practitioner Family; Visit Provider Thoracic Surgery (Cardiothoracic Vascular Surgery)
DX: I71.4 Abdominal aortic aneurysm, without rupture (principal)
CPT/HCPCS: 93978

== ENCOUNTER 2020-08-08 16:13 | Emergency (ER) | payer MEDICAID, SELFPAY ==
[2020-08-08 16:15] VITALS: BP 174/99; PULSE 116; RESP 18; TEMP 37.2; O2SAT 100; BMI 16.0
--- NOTE | 2020-08-08 16:45 | XRR_ITS ---
PROCEDURE INFORMATION: Exam: XR Chest, 1 View Exam date and time: 08/08/2020 4:51 PM Age: 65 years old Clinical indication: Dyspnea TECHNIQUE: Imaging protocol: XR of the chest Views: 1 view. COMPARISON: CT chest abd pel w con* 07/07/2020 10:38 AM FINDINGS: Tubes, catheters and devices: Endograft within the abdominal aorta. Lungs: Emphysema. No lung consolidation. Pleural spaces: Unremarkable. No pleural effusion. No pneumothorax. Heart/Mediastinum: Unremarkable. No cardiomegaly. Vasculature: Mild atherosclerosis. Bones/joints: Unremarkable. XR/XR chest 1V portable [id number] IMPRESSION: 1. No focal pneumonia. 2. Stigmata of emphysema.
[2020-08-08 16:46] VITALS: BP 163/81; PULSE 108; RESP 20; O2SAT 100
--- NOTE | 2020-08-08 16:46 | ECG_ITS ---
[facility] Test Date: 2020-08-08 Pat Name: Hali James Department: Room: Gender: Female Glass [employer]: : 1955 Requested By: Ángel Hoover Order Number: [id number] Wil MD: Nakita Hernandez M.D. Measurements Intervals [place] Rate: 94 P: 74 DC: 135 QRS: 62 QRSD: 77 T: 60 QT: 345 QTc: 431 Interpretive Statements SINUS RHYTHM Compared to ECG 02/27/2020 22:13:07 Short DC interval no longer present Left ventricular hypertrophy no longer present ST (T wave) deviation no longer present Electronically Signed On 08-08-2020 22:06:53 MAT GAUGER by Nakita Hernandez M.D. [id number]
--- NOTE | 2020-08-08 16:54 | CTR_ITS ---
PROCEDURE INFORMATION: Exam: CT Cervical Spine Without Contrast Exam date and time: 08/08/2020 5:04 PM Age: 65 years old Clinical indication: Neck pain; Patient HX: C/O neck and back pain shooting into legs; Additional info: Neck pain shooting to legs TECHNIQUE: Imaging protocol: Computed tomography images of the cervical spine without contrast. Radiation optimization: All CT scans at this facility use at least one of these dose optimization techniques: automated exposure control; mA and/or kV adjustment per patient size (includes targeted exams where dose is matched to clinical indication); or iterative reconstruction. COMPARISON: CT Cervical Spine wo* [id number] 07/10/2018 10:44 PM RADIATION DOSE METRICS: Total DLP (mGy-cm): 244.28 FINDINGS: Vertebrae: No fractures. Unremarkable cervical spine alignment. No traumatic vertebral subluxation. Very mild retrolisthesis of C3 on C4 and C4 on C5 unchanged from prior. The cervical spine demonstrates marked degenerative changes at multiple levels. Disc height loss changes stable from prior. Pre-existing sclerotic lesion within the C7 vertebral body is stable from prior. C2-C3: No significant disc protrusion. No severe spinal canal stenosis. No significant neural foraminal narrowing. C3-C4: No significant disc protrusion. No severe spinal canal stenosis. No significant neural foraminal narrowing. C4-C5: No significant disc protrusion. No severe spinal canal stenosis. No significant neural foraminal narrowing. C5-C6: No significant disc protrusion. No severe spinal canal stenosis. No significant neural foraminal narrowing. C6-C7: No significant disc protrusion. No severe spinal canal stenosis. No significant neural foraminal narrowing. C7-T1: No significant disc protrusion. No severe spinal canal stenosis. No significant neural foraminal narrowing. Other bones/joints: Bones are diffusely demineralized. Soft tissues: Unremarkable. Vasculature: Bilateral calcified atherosclerotic plaques in the carotid artery bulbs. Lungs: Lung apices are normal. CT/CT cervical spin wo con* [id number] IMPRESSION: 1. Negative for acute cervical spine abnormality. 2. No significant change from comparison 07/10/2018. Multilevel disc disease and facet joint arthritis. Radiation Dose CTDIVOL = (mGy): DLP = 244.28 (mGy-cm)
--- NOTE | 2020-08-08 17:08 | PC.PHAR ---
PT WAS VERY SLEEPY BUT DID CONFIRM HER MEDICATION. SHE WAS A BIT UNSURE ABOUT A COUPLE OF HER INHALERS.
[2020-08-08 17:25] VITALS: BP 183/78
[2020-08-08] MEDS: ketorolac 30 mg/mL INJ IM (17:25)
[2020-08-08] MEDS: cloNIDine 0.1 mg Tablet 0.2 MG PO (17:25)
[2020-08-08] MEDS: orphenadrine 30 mg/mL Inj 2 mL IM (17:32)
[2020-08-08 17:38] VITALS: BP 183/78; PULSE 100; RESP 18; O2SAT 93
[2020-08-08 17:56] LABS: Basophils % 0.2 %; Hematocrit 28.1 % (37.0-47.0); Lymphocytes # 1.1 10^3/uL (0.8-4.8); Lymphocytes % 12.4 %; Mean Corpuscular Hemoglobin 28.7 pg (28.0-34.0); Mean Corpuscular Volume 89.5 fL (81-99); Mean Platelet Volume 9.1 fL (7.4-10.4); Monocytes # 0.8 10^3/uL (0.2-0.9); Monocytes % 9.1 %; Neutrophils # 6.76 10^3/uL (1.8-7.7); Nucleated Red Blood Cells % 0 %; Platelet Count 165 10^3/cmm (130-400); Red Blood Count 3.14 10^6/uL (4.1-5.3); Red Cell Distribution Width 13.7 % (12.1-15.1); White Blood Count 8.7 10^3/uL (4.0-10.0)
[2020-08-08 18:20] LABS: Troponin(5th) Baseline 23 ng/L (0-10)
[2020-08-08 18:28] LABS: Alanine Aminotransferase 7 U/L (0-33); Albumin Level 2.8 g/dL (3.5-5.2); Alkaline Phosphatase 65 IU/L (35-105); Anion Gap 16.2 (5-19); Aspartate Amino Transferase 13 U/L (0-32); Blood Urea Nitrogen 22 mg/dL (8-23); Calcium 8.3 mg/dL (8.5-10.5); Carbon Dioxide 22 mmol/L (22-29); Chloride 100 mmol/L (98-107); Globulin 3.1 g/dL (1.3-4.6); Glomerular Filtration Rate 26.7 mL/min (90-130); Glucose 92 mg/dL (65-115); NT Pro B Type Natriuretic Pept 1757 pg/mL (0-125); Osmolality Calculated 281 mOsm/kg (285-295); Potassium 4.2 mmol/L (3.5-5.1); Sodium 134 mmol/L (136-145); Total Bilirubin 0.2 mg/dL (0.15-1.2); Total Protein 5.9 g/dL (6.6-8.7)
--- NOTE | 2020-08-08 18:58 | W.ED.BACK ---
HPI - Back Pain/Injury General: Chief Complaint: Back Pain/Injury Stated Complaint: lower back pain Time Seen by Provider: 08/08/20 16:22 History of Present Illness: HPI Narrative: The patient is a 65-year-old female with chronic neck pain who comes to the ER complaining of increased chronic back pain and pain when she turns left and right. She says the pain is shooting to both legs. She has been taking her Flexeril at home with no improvement of her pain. Blood pressure was quite elevated on arrival as well as tachycardia from pain. She has severe COPD and wears 2 to 4 L nasal cannula oxygen daily. After she calmed down in the bed her oxygen requirement is 2 L at her baseline. She denies any new injuries Denies bowel and bladder incontinence and saddle anesthesia Severity: moderate Similar Symptoms Previously: Yes Quality: sharp Exacerbating factors: movement Context: turning/twisting Associated symptoms: Deny change in bowel habits, difficulty walking, fatigue, fecal incontinence, urinary frequency or urinary urgency Review of Systems General: Reports: 10 or more systems reviewed and unremarkable except in HPI and below Const: Denies: fatigue Eyes: Denies: change in vision, blurry vision or eye redness ENMT: Reports: other (Chronic neck pain); Denies: throat pain, swelling of lips/tongue, ear or mastoid pain or nasal congestion Card: Denies: chest pain, palpitations, irregular heart rhythm, edema, dyspnea on exertion or orthopnea Resp: Denies: dyspnea, productive cough or non-productive cough GI: Denies: fecal incontinence or change in bowel habits : Denies: urinary urgency Musc: Denies: neck pain, back pain, extremity pain, joint pain, joint redness, limited range of motion or muscle weakness Skin/Breast: Denies: rash, pruritus, erythema, skin pain or skin tenderness Neuro: Denies: headache(s), numbness in extremities, weakness in extremities, sensory changes, difficulty walking, dizziness, confusion or Slurred speech present Psych: Denies: anxiety or depression Endo: Denies: polyuria All/Imm: Denies: urticaria, throat swelling or tongue swelling 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 Anemia Atypical chest pain Chronic kidney disease CKD stage III, solitary kidney COPD (chronic obstructive pulmonary disease) Depression Endoleak post (EVAR) endovascular aneurysm repair GERD (gastroesophageal reflux disease) History of stent insertion of renal artery Hypercholesteremia Hypertension Hypertensive urgency Resolved Hypothyroidism Normal colonoscopy Peripheral vascular disease Restless leg Surgical History H/O: hysterectomy History of repair of aneurysm of abdominal aorta using endovascular stent graft Hx of tonsillectomy S/P appendectomy Family History Other CAD (coronary artery disease) Hypertension Social History Smoking and tobacco status: former smoker Quit status (tobacco): has quit using tobacco Year quit tobacco: 2005 - PPD x 35 Years Second hand smoke exposure: Yes Smoking risk assessment/counseling performed?: No Alcohol intake: never Desire information about alcohol rehabilitation?: No Counseling given: No Counseling given: No Lives independently: Yes Household members: family and children Marital status: / Current occupational status: disabled History of recent travel: No Current gender identity: Female Physical Exam Const: COMMON NORMALS: no acute distress, average body habitus, patient oriented x3, no limitations, healthy appearing, alert and well nourished GENERAL APPEARANCE: cooperative, comfortable, well kempt and well developed ORIENTATION/CONSCIOUSNESS: Yes awake, Yes oriented to person, Yes oriented to place and Yes oriented to time HENMT: COMMON NORMALS: normocephalic, external ears normal and Normal external nose present HEAD & SCALP: normal to inspection and normocephalic NOSE: Normal external nose present EXTERNAL EAR: Yes external ears normal MOUTH: Normal oral and palatal mucosa present THROAT: posterior oropharynx normal Eye: COMMON NORMALS: Equal, round and reactive pupils present and EOMs intact bilaterally GENERAL EYE: appearance normal, both eyes and all related structures PUPIL: Yes Equal, round and reactive pupils present Neck/C-Spine: COMMON NORMALS: full ROM, no lymphadenopathy, no meningeal signs and no JVD GENERAL: Yes normal visual inspection OTHER: Cervical perimuscular spinal tenderness. No acute bony tenderness Lymph: LYMPHATIC: no lymphadenopathy noted Chest: COMMONS NORMALS: normal inspection of the chest and normal palpation of entire chest wall Resp: COMMON NORMALS: normal respiratory effort, No retractions, No use of accessory muscles, clear to auscultation bilaterally and percussion normal EFFORT & INSPECTION: Yes able to speak in complete sentences AUSCULTATION: clear to auscultation bilaterally PERCUSSION: percussion normal Cardio: COMMON NORMALS: no JVD, regular rate, regular rhythm, S1 normal heart sound present, S2 normal heart sound present and Peripheral pulses 2+ throughout RATE: regular rate RHYTHM: regular rhythm HEART SOUNDS: S1 normal heart sound present and S2 normal heart sound present PERIPHERAL PULSES: Peripheral pulses 2+ throughout GI: COMMON NORMALS: Normal to inspection, nondistended, normoactive bowel sounds present, Soft to palpation, non-tender and no masses INSPECTION: Yes normal to inspection PALPATION: Yes Soft to palpation : COMMON NORMALS: Yes no CVA tenderness BLADDER/KIDNEY EXAM: Yes no CVA tenderness Back/Pelvis: COMMON NORMALS: no CVA tenderness, thoracic and lumbar spine normal to inspection, no thoracic nor lumbar tenderness and thoraco-lumbar ROM normal Extremity: COMMON NORMALS: normal to inspection, full ROM, capillary refill normal, no joint enlargement and no pedal edema GENERAL: Yes normal exam except as noted Neuro: COMMON NORMALS: patient oriented x3, CN's II-XII intact bilaterally, moves all extremities, no focal motor deficits, no sensory deficits noted and gait normal SENSORIUM/ORIENTATION: Yes alert, Yes oriented to person, Yes oriented to place and Yes oriented to time MENINGEAL SIGNS: Yes no meningeal signs Psych: COMMON NORMALS: mental status grossly normal, Normal thought process present, cooperative, normal affect and speech normal APPEARANCE: Yes well kempt ATTITUDE: Yes calm SPEECH: Yes normal speech THOUGHT PROCESS: Normal thought process present Skin: COMMON NORMALS: no rashes or lesions noted GENERAL SKIN EXAM: no rashes or lesions noted Course Vital Signs: Vital signs: Vital Signs Temperature 98.9 F 08/08/20 16:15 Pulse Rate 100 08/08/20 17:38 Respiratory Rate 18 08/08/20 17:38 Blood Pressure 183/78 08/08/20 17:38 Pulse Oximetry 93 08/08/20 17:38 MDM - Back Pain/Injury MDM Narrative: Medical decision making narrative: The patient came in complaining of acute on chronic neck pain. Her CT was normal of her neck. She was given Toradol and Norflex with good improvement of her pain. Stable for discharge home and continue taking her Flexeril as directed. Also I encouraged her to take her blood pressure medicines and drink some fluids and get her kidneys rechecked in a week as her kidney function is elevated here. Lab Data: Labs: Lab Results 08/08/20 08/08/20 08/08/20 Range/Units 17:30 17:30 17:30 WBC 8.7 (4.0-10.0) 10^3/ uL RBC 3.14 L (4.1-5.3) 10^6/u L Hgb 9.0 L (11.5-15.3) g/dL Hct 28.1 L (37.0-47.0) % MCV 89.5 (81-99) fL MCH 28.7 (28.0-34.0) pg MCHC 32.0 (30.0-36.0) g/dL RDW 13.7 (12.1-15.1) % Plt Count 165 (130-400) 10^3/c mm MPV 9.1 (7.4-10.4) fL Neut % (Auto) 78.0 % Lymph % (Auto) 12.4 % Parmer % (Auto) 9.1 % Eos % (Auto) 0.0 % Baso % (Auto) 0.2 % Neut # (Auto) 6.76 (1.8-7.7) 10^3/u L Lymph # (Auto) 1.1 (0.8-4.8) 10^3/u L Parmer # (Auto) 0.8 (0.2-0.9) 10^3/u L Eos # (Auto) 0.0 (0.0-0.8) 10^3/u L Baso # (Auto) 0.0 (0.0-0.1) 10^3/u L Nucleated RBC % (a uto) 0 % Nucleated RBCs # 0.0 /100WBC Sodium 134 L (136-145) mmol/L Potassium 4.2 (3.5-5.1) mmol/L Chloride 100 (98-107) mmol/L Carbon Dioxide 22 (22-29) mmol/L Anion Gap 16.2 (5-19) BUN 22 (8-23) mg/dL Creatinine 1.9 H (0.5-0.9) mg/dL GFR Calculation 26.7 L (90-130) mL/min Glucose 92 (65-115) mg/dL Calculated Osmolal ity 281 L (285-295) mOsm/k g Calcium 8.3 L (8.5-10.5) mg/dL Total Bilirubin 0.2 (0.15-1.2) mg/dL AST 13 (0-32) U/L ALT 7 (0-33) U/L Alkaline Phosphata se 65 (35-105) IU/L Troponin T Baselin e 23 H (0-10) ng/L NT-Pro-B Natriuret Pep 1757 H (0-125) pg/mL Total Protein 5.9 L (6.6-8.7) g/dL Albumin 2.8 L (3.5-5.2) g/dL Globulin 3.1 (1.3-4.6) g/dL Discharge Plan Discharge Patient Disposition: Home Clinical Impression: Chronic neck pain Condition: Stable Prescriptions: No Action nitroglycerin [Nitrostat] 0.4 mg tablet, sublingual 0.4 mg SUBLINGUAL Q5M PRN (Reason: Chest Pain) 30 Days Qty: 30 RF: 5 albuterol sulfate 2.5 mg /3 mL (0.083 %) solution for nebulization 2.5 mg INHALATION QID PRN (Reason: Shortness Of Breath) 30 Days Qty: 75 RF: 5 albuterol sulfate 90 mcg/actuation Hfa Aerosol Inhaler 2 puff INHALATION 6XD PRN (Reason: Shortness Of Breath) RF: 0 fluticasone propionate [Flonase Allergy Relief] 50 mcg/actuation [place],Suspension 2 spray INTRANASAL DAILY PRN (Reason: unknown) RF: 0 citalopram 40 mg tablet 40 mg PO DAILY@0830 RF: 0 budesonide 0.5 mg/2 mL suspension for nebulization See Rx Instructions .ROUTE .COMPLEX RF: 0 montelukast 10 mg tablet 10 mg PO DAILY@0830 RF: 0 Daliresp 500 mcg tablet 500 mcg PO DAILY@0830 RF: 0 cyclobenzaprine 10 mg tablet 10 mg PO TID@0830,1400,2100 RF: 0 atorvastatin 20 mg tablet 20 mg PO DAILY@829 RF: 0 ropinirole 1 mg tablet 1 mg PO DAILY@829 RF: 0 metoprolol succinate 50 mg tablet extended release 24 hr 50 mg PO BID@ RF: 0 amlodipine 5 mg tablet 5 mg PO DAILY@829 RF: 0 aspirin 81 mg tablet,delayed release (DR/EC) 81 mg PO DAILY@829 RF: 0 isosorbide mononitrate 60 mg tablet extended release 24 hr 60 mg PO DAILY@829 RF: 0 amitriptyline 25 mg tablet 25 mg PO DAILY@829 RF: 0 hydralazine 100 mg tablet 100 mg PO TID@829,1399,2099 RF: 0 Serevent Diskus 50 mcg/dose blister with device 1 inh inhalation BID@ RF: 0 omeprazole 20 mg capsule,delayed release(DR/EC) 20 mg PO DAILY@829 RF: 0 bumetanide 1 mg tablet 1 mg PO EVERY OTHER DAY RF: 0 Perforomist 20 mcg/2 mL solution for nebulization 2 ml inhalation BID@ RF: 0 levothyroxine 50 mcg capsule 50 mcg PO DAILY@829 RF: 0 magnesium oxide 400 mg magnesium tablet 400 mg PO BID@ RF: 0 Yupelri 175 mcg/3 mL solution for nebulization 175 mcg inhalation DAILY@829 RF: 0 Discharge Orders: Discharge ED (Routine); Ordered 08/08/20 Ordered By: Ángel Hoover Referrals: Nancy Carrasco FNP-C [Primary Care Provider] - Patient Instructions: Cervical Radiculopathy (ED) Activity Restrictions/Additional Instructions: You have chronic back pain. Please go home and continue to take your Flexeril as directed. This is likely an acute strained muscle and should go away in a few days. Return to the ER with worsening symptoms otherwise follow-up with your primary care physician in a few days. Also continue to take your blood pressure medicines and discuss with your physician as your blood pressure was elevated on arrival. Also get your kidneys rechecked again as your kidney function is slightly higher than your normal. Drink some fluids and have it rechecked again in a week. If you do not your kidney function could worsen and you could end up on dialysis. Coding Level of Care Code ED Investigation Division Sergeant for Leann Crowley
[2020-08-08 20:07] VITALS: BP 115/70; PULSE 91; RESP 20; O2SAT 99
== END 2020-08-08 20:07 | disposition home or self-care (01) ==
PROVIDERS: Emergency Provider Family Medicine; PCP Nurse Practitioner Family
DX: G89.29 Other chronic pain (principal); M54.2 Cervicalgia; M54.9 Dorsalgia, unspecified; I12.9 Hypertensive chronic kidney disease with stage 1 through stage 4 chronic kidney disease, or unspecified chronic kidney disease; N18.30 Chronic kidney disease, stage 3 unspecified; J44.9 Chronic obstructive pulmonary disease, unspecified; Z87.891 Personal history of nicotine dependence
CPT/HCPCS: 12345; 71045; 72125; 80053; 83880; 84484; 85025; 93005; 96372; 99281; 99283; J1885; J2360

== ENCOUNTER 2020-08-16 09:41 | Inpatient (IN) | payer MEDICAID, SELFPAY ==
[2020-08-16] VITALS (11 sets, daily range): BP systolic 146–173; BP diastolic 78–90; PULSE 73–103; RESP 14–28; TEMP 36.6–38.2; O2SAT 98–100; BMI 16.0
--- NOTE | 2020-08-16 09:50 | XRR_ITS ---
PROCEDURE INFORMATION: Exam: XR Chest, 1 View Exam date and time: 08/16/2020 9:52 AM Age: 65 years old Clinical indication: Chest pain; Additional info: Ches tpain/dyspnea TECHNIQUE: Imaging protocol: XR of the chest Views: 1 view. COMPARISON: CR XR chest 1V portable [id number] 08/08/2020 4:49 PM FINDINGS: Lungs: COPD and interstitial prominence. Pleural spaces: no pleural effusion. Heart/Mediastinum: No cardiomegaly. Vasculature: Calcification of the thoracic aorta. Aortic stent graft. Bones/joints: Osteopenia. XR/XR chest 1V portable [id number] IMPRESSION: COPD and interstitial prominence.
--- NOTE | 2020-08-16 09:51 | ECG_ITS ---
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 Measurements Intervals [place] Rate: 93 P: 74 IN: 137 QRS: 77 QRSD: 66 T: 79 QT: 346 QTc: 432 Interpretive Statements SINUS RHYTHM Compared to ECG 08/08/2020 17:51:51 No significant changes Electronically Signed On 08-16-2020 10:49:47 BUFFER MACHINE by Victor Hugo Gonzalez M.D. [id number]
--- NOTE | 2020-08-16 09:53 | W.ED.SOB ---
HPI - SOB/Dyspnea General: Chief Complaint: Shortness of Breath/Dyspnea Stated Complaint: CHEST PAIN / SHORT OF BREATH / COVID SYMPTOMS Time Seen by Provider: 08/16/20 09:42 History of Present Illness: HPI Narrative: 65-year-old female presents complaining of shortness of breath and cough. Has had a fever and productive cough been getting progressively worse over the last couple days when she takes a deep breath she has right lower chest pain. She denies any hemoptysis. Patient is chronically on 2 L per nasal cannula of oxygen for COPD. She is not had Covid to the best of her knowledge. She has been having some loose stools/diarrhea recently as well. MD elicited complaint: shortness of breath and cough Pertinent past history: COPD Onset (ago): day(s) (2) Timing: constant Severity: mild Exacerbating factors: exertion and coughing Relieving factors: oxygen and rest Known history of: COPD Associated symptoms: Reports chest congestion, chest pain, cough, diaphoresis, fever(s) and nausea; Deny abdominal pain, dizziness, extremity pain, hemoptysis, lightheadedness, myalgias, orthopnea, palpitations, paresthesias, polydipsia, polyuria, rash, sense of impending doom, syncope or vomiting Treatment prior to arrival: oxygen Review of Systems Const: Reports: fever(s) and diaphoresis ENMT: Denies: throat pain, ear or mastoid pain, nasal discharge or nasal congestion Card: Reports: chest pain; Denies: palpitations, lightheadedness, syncope or orthopnea Resp: Reports: chest congestion; Denies: hemoptysis GI: Reports: nausea; Denies: abdominal pain or vomiting : Denies: flank pain, difficulty voiding, dysuria, urinary frequency or urinary urgency Musc: Denies: extremity pain Skin/Breast: Denies: rash or pruritus Neuro: Denies: dizziness Endo: Denies: polyuria or polydipsia PFS ED PFSH: Medical History AAA (abdominal aortic aneurysm) 4.1 x 4.4 x 5.7 cm 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 Anemia Atypical chest pain Chronic kidney disease CKD stage III, solitary kidney COPD (chronic obstructive pulmonary disease) Depression Endoleak post (EVAR) endovascular aneurysm repair GERD (gastroesophageal reflux disease) History of stent insertion of renal artery Hypercholesteremia Hypertension Hypertensive urgency Resolved Hypothyroidism Normal colonoscopy Peripheral vascular disease Restless leg Surgical History H/O: hysterectomy History of repair of aneurysm of abdominal aorta using endovascular stent graft Hx of tonsillectomy S/P appendectomy Family History Other CAD (coronary artery disease) Hypertension Social History Smoking and tobacco status: former smoker Quit status (tobacco): has quit using tobacco Year quit tobacco: 2005 - PPD x 35 Years Second hand smoke exposure: Yes Smoking risk assessment/counseling performed?: No Alcohol intake: never Desire information about alcohol rehabilitation?: No Counseling given: No Counseling given: No Lives independently: Yes Household members: family and children Marital status: / Current occupational status: disabled History of recent travel: No Current gender identity: Female Physical Exam Const: COMMON NORMALS: no acute distress GENERAL APPEARANCE: cooperative and comfortable ORIENTATION/CONSCIOUSNESS: Yes awake, Yes oriented to person, Yes oriented to place and Yes oriented to time HENMT: COMMON NORMALS: normocephalic, atraumatic and hearing grossly normal bilaterally HEAD & SCALP: normocephalic and atraumatic Neck/C-Spine: COMMON NORMALS: no JVD Resp: AUSCULTATION: rhonchi, wheezes and diminished lung sounds Cardio: COMMON NORMALS: no JVD, regular rate, regular rhythm and No murmurs present (Cardio) RATE: regular rate RHYTHM: regular rhythm GI: COMMON NORMALS: Soft to palpation and No hepatosplenomegaly present AUSCULTATION: Yes normoactive bowel sounds PALPATION: Yes Soft to palpation, No Tenderness to palpation present (GI), No Guarding due to palpation present (GI) and Yes No hepatosplenomegaly present Extremity: COMMON NORMALS: normal to inspection, capillary refill normal, no clubbing, cyanosis or edema, no calf tenderness and no pedal edema Neuro: SENSORIUM/ORIENTATION: Yes oriented to person, Yes oriented to place and Yes oriented to time Skin: COMMON NORMALS: no rashes or lesions noted GENERAL SKIN EXAM: no rashes or lesions noted Course Vital Signs: Vital signs: Vital Signs Temperature 100.1 F H 08/16/20 10:13 Pulse Rate 97 08/16/20 11:47 Respiratory Rate 16 08/16/20 11:47 Blood Pressure 159/88 08/16/20 11:47 Pulse Oximetry 100 08/16/20 11:47 MDM - SOB/Dyspnea MDM Narrative: Medical decision making narrative: There is a pneumonia in the right side on the CT. Patient is rather fragile end-stage COPD she is maintaining oxygen now but with her fever and complaints of shortness of breath I am concerned she may rapidly decline think she would be best served by being placed in observation was started on steroids and antibiotics she has a send out PCR for Covid pending her rapid antigen and flu swabs were negative. Lab Data: Labs: Lab Results 08/16/20 08/16/20 08/16/20 Range/Units 09:50 09:50 09:50 WBC 9.4 (4.0-10.0) 10^3/ uL RBC 3.76 L (4.1-5.3) 10^6/u L Hgb 10.5 L (11.5-15.3) g/dL Hct 33.3 L (37.0-47.0) % MCV 88.6 (81-99) fL MCH 27.9 L (28.0-34.0) pg MCHC 31.5 (30.0-36.0) g/dL RDW 14.2 (12.1-15.1) % Plt Count 261 (130-400) 10^3/c mm MPV 9.5 (7.4-10.4) fL Neut % (Auto) 88.4 % Lymph % (Auto) 8.0 % [place] % (Auto) 3.2 % Eos % (Auto) 0.0 % Baso % (Auto) 0.2 % Neut # (Auto) 8.32 H (1.8-7.7) 10^3/u L Lymph # (Auto) 0.8 (0.8-4.8) 10^3/u L [place] # (Auto) 0.3 (0.2-0.9) 10^3/u L Eos # (Auto) 0.0 (0.0-0.8) 10^3/u L Baso # (Auto) 0.0 (0.0-0.1) 10^3/u L Nucleated RBC % (a uto) 0 % Nucleated RBCs # 0.0 /100WBC D-Dimer 3.25 H (0-0.59) ug/mIFE U Specimen Type Sample Site ABG pH (7.35-7.45) ABG pCO2 (35-45) mmHg ABG pO2 (80.0-100.0) mmH g ABG HCO3 (22-26) mmol/L ABG O2 Saturation ABG Base Excess (-2.0-2.0) mmol/ L Roly Test A-a O2 Gradient (5-10) mmHg Hematocrit (37-47) % Hgb O2 Saturation (95-100) % Carboxyhemoglobin (0.4-20.1) %THgb Methemoglobin (0.4-1.5) % Total Hemoglobin (12-16) g/dL Ionized Calcium (1.1-1.4) mmol/L O2 Delivery Device O2 Liters/Min % FiO2 % Cable Television Program Director ID Sodium 136 (136-145) mmol/L Potassium 4.4 (3.5-5.1) mmol/L Chloride 102 (98-107) mmol/L Carbon Dioxide 22 (22-29) mmol/L Anion Gap 16.4 (5-19) BUN 16 (8-23) mg/dL Creatinine 1.3 H (0.5-0.9) mg/dL GFR Calculation 41.4 L (90-130) mL/min Glucose 98 (65-115) mg/dL Calculated Osmolal ity 283 L (285-295) mOsm/k g Lactic Acid (0.5-2.2) mmol/L Calcium 8.8 (8.5-10.5) mg/dL Total Bilirubin 0.2 (0.15-1.2) mg/dL AST 15 (0-32) U/L ALT 8 (0-33) U/L Alkaline Phosphata se 81 (35-105) IU/L Troponin T Baselin e (0-10) ng/L Total Protein 6.4 L (6.6-8.7) g/dL Albumin 3.6 (3.5-5.2) g/dL Globulin 2.8 (1.3-4.6) g/dL Influenza Type A A g (Negative) Influenza Type B A g (Negative) SARS-CoV-2 Ag (Rap id) (Negative) 08/16/20 08/16/20 08/16/20 Range/Units 09:50 10:05 10:05 WBC (4.0-10.0) 10^3/ uL RBC (4.1-5.3) 10^6/u L Hgb (11.5-15.3) g/dL Hct (37.0-47.0) % MCV (81-99) fL MCH (28.0-34.0) pg MCHC (30.0-36.0) g/dL RDW (12.1-15.1) % Plt Count (130-400) 10^3/c mm MPV (7.4-10.4) fL Neut % (Auto) % Lymph % (Auto) % [place] % (Auto) % Eos % (Auto) % Baso % (Auto) % Neut # (Auto) (1.8-7.7) 10^3/u L Lymph # (Auto) (0.8-4.8) 10^3/u L [place] # (Auto) (0.2-0.9) 10^3/u L Eos # (Auto) (0.0-0.8) 10^3/u L Baso # (Auto) (0.0-0.1) 10^3/u L Nucleated RBC % (a uto) % Nucleated RBCs # /100WBC D-Dimer (0-0.59) ug/mIFE U Specimen Type Sample Site ABG pH (7.35-7.45) ABG pCO2 (35-45) mmHg ABG pO2 (80.0-100.0) mmH g ABG HCO3 (22-26) mmol/L ABG O2 Saturation ABG Base Excess (-2.0-2.0) mmol/ L Roly Test A-a O2 Gradient (5-10) mmHg Hematocrit (37-47) % Hgb O2 Saturation (95-100) % Carboxyhemoglobin (0.4-20.1) %THgb Methemoglobin (0.4-1.5) % Total Hemoglobin (12-16) g/dL Ionized Calcium (1.1-1.4) mmol/L O2 Delivery Device O2 Liters/Min % FiO2 % [employer] Program Director ID Sodium (136-145) mmol/L Potassium (3.5-5.1) mmol/L Chloride (98-107) mmol/L Carbon Dioxide (22-29) mmol/L Anion Gap (5-19) BUN (8-23) mg/dL Creatinine (0.5-0.9) mg/dL GFR Calculation (90-130) mL/min Glucose (65-115) mg/dL Calculated Osmolal ity (285-295) mOsm/k g Lactic Acid (0.5-2.2) mmol/L Calcium (8.5-10.5) mg/dL Total Bilirubin (0.15-1.2) mg/dL AST (0-32) U/L ALT (0-33) U/L Alkaline Phosphata se (35-105) IU/L Troponin T Baselin e 21 H (0-10) ng/L Total Protein (6.6-8.7) g/dL Albumin (3.5-5.2) g/dL Globulin (1.3-4.6) g/dL Influenza Type A A g Negative (Negative) Influenza Type B A g Negative (Negative) SARS-CoV-2 Ag (Rap id) Negative (Negative) 08/16/20 08/16/20 Range/Units 10:06 12:02 WBC (4.0-10.0) 10^3/ uL RBC (4.1-5.3) 10^6/u L Hgb (11.5-15.3) g/dL Hct (37.0-47.0) % MCV (81-99) fL MCH (28.0-34.0) pg MCHC (30.0-36.0) g/dL RDW (12.1-15.1) % Plt Count (130-400) 10^3/c mm MPV (7.4-10.4) fL Neut % (Auto) % Lymph % (Auto) % [place] % (Auto) % Eos % (Auto) % Baso % (Auto) % Neut # (Auto) (1.8-7.7) 10^3/u L Lymph # (Auto) (0.8-4.8) 10^3/u L [place] # (Auto) (0.2-0.9) 10^3/u L Eos # (Auto) (0.0-0.8) 10^3/u L Baso # (Auto) (0.0-0.1) 10^3/u L Nucleated RBC % (a uto) % Nucleated RBCs # /100WBC D-Dimer (0-0.59) ug/mIFE U Specimen Type Arterial Sample Site Brachial, right ABG pH 7.42 (7.35-7.45) ABG pCO2 33.8 L (35-45) mmHg ABG pO2 126.0 H (80.0-100.0) mmH g ABG HCO3 21.7 L (22-26) mmol/L ABG O2 Saturation 99.3 ABG Base Excess -2.4 L (-2.0-2.0) mmol/ L Roly Test N/a A-a O2 Gradient 3.8 L (5-10) mmHg Hematocrit 28.8 L (37-47) % Hgb O2 Saturation 97.5 (95-100) % Carboxyhemoglobin 0.6 (0.4-20.1) %THgb Methemoglobin 1.2 (0.4-1.5) % Total Hemoglobin 9.4 L (12-16) g/dL Ionized Calcium 1.2 (1.1-1.4) mmol/L O2 Delivery Device Nc O2 Liters/Min 2.0 % FiO2 28.0 % Cable [employer] Program Director ID Ed Sodium 132.0 (136-145) mmol/L Potassium 4.3 (3.5-5.1) mmol/L Chloride (98-107) mmol/L Carbon Dioxide (22-29) mmol/L Anion Gap (5-19) BUN (8-23) mg/dL Creatinine (0.5-0.9) mg/dL GFR Calculation (90-130) mL/min Glucose 103.0 (65-115) mg/dL Calculated Osmolal ity (285-295) mOsm/k g Lactic Acid 0.7 (0.5-2.2) mmol/L Calcium (8.5-10.5) mg/dL Total Bilirubin (0.15-1.2) mg/dL AST (0-32) U/L ALT (0-33) U/L Alkaline Phosphata se (35-105) IU/L Troponin T Baselin e (0-10) ng/L Total Protein (6.6-8.7) g/dL Albumin (3.5-5.2) g/dL Globulin (1.3-4.6) g/dL Influenza Type A A g (Negative) Influenza Type B A g (Negative) SARS-CoV-2 Ag (Rap id) (Negative) Discharge Plan Discharge Prescriptions: No Action nitroglycerin [Nitrostat] 0.4 mg tablet, sublingual 0.4 mg SUBLINGUAL Q5M PRN (Reason: Chest Pain) 30 Days Qty: 30 RF: 5 albuterol sulfate 2.5 mg /3 mL (0.083 %) solution for nebulization 2.5 mg INHALATION QID PRN (Reason: Shortness Of Breath) 30 Days Qty: 75 RF: 5 albuterol sulfate 90 mcg/actuation Hfa Aerosol Inhaler 2 puff INHALATION 6XD PRN (Reason: Shortness Of Breath) RF: 0 fluticasone propionate [Flonase Allergy Relief] 50 mcg/actuation [place],Suspension 2 spray INTRANASAL DAILY PRN (Reason: unknown) RF: 0 citalopram 40 mg tablet 40 mg PO DAILY@0830 RF: 0 budesonide 0.5 mg/2 mL suspension for nebulization See Rx Instructions .ROUTE .COMPLEX RF: 0 montelukast 10 mg tablet 10 mg PO DAILY@0830 RF: 0 Daliresp 500 mcg tablet 500 mcg PO DAILY@0830 RF: 0 cyclobenzaprine 10 mg tablet 10 mg PO TID@0830,1399,2099 RF: 0 atorvastatin 20 mg tablet 20 mg PO DAILY@0830 RF: 0 ropinirole 1 mg tablet 1 mg PO DAILY@0830 RF: 0 metoprolol succinate 50 mg tablet extended release 24 hr 50 mg PO BID@829,2099 RF: 0 amlodipine 5 mg tablet 5 mg PO DAILY@0830 RF: 0 aspirin 81 mg tablet,delayed release (DR/EC) 81 mg PO DAILY@0830 RF: 0 isosorbide mononitrate 60 mg tablet extended release 24 hr 60 mg PO DAILY@0830 RF: 0 amitriptyline 25 mg tablet 25 mg PO DAILY@0830 RF: 0 hydralazine 100 mg tablet 100 mg PO TID@0830,1399,2099 RF: 0 Serevent Diskus 50 mcg/dose blister with device 1 inh inhalation BID@829,2099 RF: 0 omeprazole 20 mg capsule,delayed release(DR/EC) 20 mg PO DAILY@829 RF: 0 bumetanide 1 mg tablet 1 mg PO EVERY OTHER DAY RF: 0 Perforomist 20 mcg/2 mL solution for nebulization 2 ml inhalation BID@ RF: 0 levothyroxine 50 mcg capsule 50 mcg PO DAILY@829 RF: 0 magnesium oxide 400 mg magnesium tablet 400 mg PO BID@ RF: 0 Yupelri 175 mcg/3 mL solution for nebulization 175 mcg inhalation DAILY@829 RF: 0 Coding Level of Care Code ED Software Development Specialist for Chg Fwd Exam Comprehensive
[2020-08-16 09:59] LABS: Basophils % 0.2 %; Hematocrit 33.3 % (37.0-47.0); Hemoglobin 10.5 g/dL (11.5-15.3); Lymphocytes # 0.8 10^3/uL (0.8-4.8); Mean Corpuscular HGB Conc 31.5 g/dL (30.0-36.0); Mean Corpuscular Hemoglobin 27.9 pg (28.0-34.0); Mean Corpuscular Volume 88.6 fL (81-99); Mean Platelet Volume 9.5 fL (7.4-10.4); Monocytes # 0.3 10^3/uL (0.2-0.9); Monocytes % 3.2 %; Neutrophils # 8.32 10^3/uL (1.8-7.7); Neutrophils % 88.4 %; Nucleated Red Blood Cells % 0 %; Platelet Count 261 10^3/cmm (130-400); Red Blood Count 3.76 10^6/uL (4.1-5.3); Red Cell Distribution Width 14.2 % (12.1-15.1); White Blood Count 9.4 10^3/uL (4.0-10.0)
[2020-08-16 10:21] LABS: D Dimer 3.25 ug/mIFEU (0-0.59)
[2020-08-16 10:30] LABS: Troponin(5th) Baseline 21 ng/L (0-10)
--- NOTE | 2020-08-16 10:30 | CTR_ITS ---
PROCEDURE INFORMATION: Exam: CT Angiography Chest With Contrast Exam date and time: 08/16/2020 11:22 AM Age: 65 years old Clinical indication: Dyspnea; Prior surgery; Surgery type: Aaa, hyst, appy, L kidney; Additional info: Dyspnea/elevated d dimer TECHNIQUE: Imaging protocol: Computed tomographic angiography of the chest with contrast. 3D rendering (Not supervised by radiologist): MIP and/or 3D reconstructed images were created by the technologist. Radiation optimization: All CT scans at this facility use at least one of these dose optimization techniques: automated exposure control; mA and/or kV adjustment per patient size (includes targeted exams where dose is matched to clinical indication); or iterative reconstruction. Contrast material: VISIPAQUE 320; Contrast volume: 61 ml; Contrast route: INTRAVENOUS (IV); COMPARISON: CT angio chest PE protcl [id number] 04/21/2020 10:24 PM RADIATION DOSE METRICS: Total DLP (mGy-cm): 346.78 FINDINGS: Pulmonary arteries: No pulmonary embolus in the opacified pulmonary arteries. Aorta: Calcification in the normal caliber thoracic aorta. Bifurcated endoluminal stent graft in the aorta, in association with a 3.3 cm abdominal aortic aneurysm with prominent atherosclerotic plaque. Lungs: Evaluation of the lung gilliam is somewhat limited by motion artifact. COPD, bronchial wall thickening, and interstitial disease. Airspace disease, disproportionately localized in the right upper lobe, and extending to the pleural surface. Pleural spaces: No dependent pleural effusion. Heart: Mild left ventricular hypertrophy. 6 mm pericardial effusion. Mild coronary artery calcification. Lymph nodes: Subcentimeter lymph nodes. Upper abdomen: Atrophy and non-opacification of the visualized left kidney. Bones/joints: Old rib fractures. Osteopenia and chronic T12 compression deformity. Degenerative change and dextroscoliosis. Soft tissues: Subcutaneous edema. CT/CT angio chest PE protcl [id number] IMPRESSION: 1. No pulmonary embolus in the opacified pulmonary arteries. 2. Bifurcated endoluminal stent graft in the aorta, in association with a 3.3 cm abdominal aortic aneurysm with prominent atherosclerotic plaque. 3. COPD, bronchial wall thickening, and interstitial disease. Airspace disease, disproportionately localized in the right upper lobe, and extending to the pleural surface. 4. Atrophy and non-opacification of the visualized left kidney. 5. Additional findings as described above. Radiation Dose CTDIVOL = (mGy): DLP = 346.78 (mGy-cm)
[2020-08-16 10:31] LABS: Alanine Aminotransferase 8 U/L (0-33); Albumin Level 3.6 g/dL (3.5-5.2); Alkaline Phosphatase 81 IU/L (35-105); Anion Gap 16.4 (5-19); Aspartate Amino Transferase 15 U/L (0-32); Blood Urea Nitrogen 16 mg/dL (8-23); Calcium 8.8 mg/dL (8.5-10.5); Carbon Dioxide 22 mmol/L (22-29); Chloride 102 mmol/L (98-107); Globulin 2.8 g/dL (1.3-4.6); Glomerular Filtration Rate 41.4 mL/min (90-130); Glucose 98 mg/dL (65-115); Osmolality Calculated 283 mOsm/kg (285-295); Potassium 4.4 mmol/L (3.5-5.1); Sodium 136 mmol/L (136-145); Total Bilirubin 0.2 mg/dL (0.15-1.2); Total Protein 6.4 g/dL (6.6-8.7)
[2020-08-16 10:40] LABS: Lactic Sepsis W/Reflex 0.7 mmol/L (0.5-2.2)
[2020-08-16 10:59] LABS: Influenza A by IFA Negative (Negative); Influenza B by IFA Negative (Negative)
[2020-08-16 11:00] LABS: SARS Covid-2 Antigen Negative (Negative)
[2020-08-16] MEDS: iodixanol 320 mg/mL 100mL Btl IV (11:35)
[2020-08-16] MEDS: morphine 4 mg/mL SDV 1 mL 2 MG IVP (11:40)
--- NOTE | 2020-08-16 11:51 | ECG_ITS ---
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
[2020-08-16 12:12] LABS: ABG PCO2 33.8 mmHg (35-45); ABG PH Result 7.42 (7.35-7.45); Arterial Blood Gas Hematocrit 28.8 % (37-47); Base Excess ABG -2.4 mmol/L (-2.0-2.0); Blood Gas Sample Type Arterial; Carboxyhemoglobin 0.6 %THgb (0.4-20.1); HCO3 ABG 21.7 mmol/L (22-26); HGB O2 Sat 97.5 % (95-100); Ionized Calcium Level - ABG 1.2 mmol/L (1.1-1.4); Methemoglobin 1.2 % (0.4-1.5); Oxygen Saturation ABG 99.3; Potassium Level - ABG 4.3 mmol/L (3.5-5.0); Total Hemoglobin 9.4 g/dL (12-16)
[2020-08-16 12:13] LABS: Alveolar-Arterial Oxygen Gradi 3.8 mmHg (5-10); Blood Gas Operator Identificat ED; Blood Gas Sample Site Brachial, right; Oxygen Device NC
[2020-08-16 12:58] LABS: Troponin 5 2HR 19.65 ng/L (0-10); Troponin 5 2HR Delta -1.35 ABS# (0-10)
--- NOTE | 2020-08-16 12:59 | PC.NURSE ---
REPORT GIVEN TO AMANDA LUONG ON [facility]
--- NOTE | 2020-08-16 14:23 | PM.HP ---
Providers/Chief Complaint Admitting Physician: Govind Heredia MD Primary Care Provider: HERBERT Masters Chief Complaint: CHEST PAIN / SHORT OF BREATH / COVID SYMPTOMS History of Present Illness Hali James is a 65 year old female with pmh COPD, HTN, AAA Who presented with shortness of breath and cough. Reported fever at home. Currently on 2 L of oxygen. Was Covid tested in July. Has currently has 1 pending. In the ER she was noted to be hypoxic. Also noted to have some loose stool. she did report some chest pain. Review of Systems General: Reports: 10 or more systems reviewed and unremarkable except in HPI and below Const: Reports: fever(s) and body aches Eyes: Denies: change in vision, blurry vision or eye redness Card: Reports: chest pain; Denies: palpitations Resp: Reports: dyspnea and productive cough GI: Denies: abdominal pain or nausea : Denies: flank pain Musc: Reports: extremity pain Skin/Breast: Denies: rash Neuro: Reports: headache(s) Medications/Allergies Home Medications Medication Instructions Recorded Confirmed Last Taken Type fluticasone propionate [Flonase 2 spray INTRANASAL DAILY PRN 02/21/20 08/16/20 08/15/20 History Allergy Relief] nitroglycerin 0.4 mg sublingual 0.4 mg SUBLINGUAL Q5M PRN 30 Days 03/26/20 08/16/20 Unknown Rx tablet #30 tab albuterol sulfate 2 puff INHALATION 6XD PRN 04/22/20 08/16/20 08/16/20 History albuterol sulfate 2.5 mg INHALATION QID PRN 30 Days 05/15/20 08/16/20 08/16/20 Rx #75 ml amitriptyline 25 mg PO DAILY@82908/08/20 08/16/20 08/15/20 History amlodipine 5 mg PO DAILY@82908/08/20 08/16/20 08/15/20 History aspirin 81 mg PO DAILY@82908/08/20 08/16/20 08/15/20 History atorvastatin 20 mg PO DAILY@82908/08/20 08/16/20 08/15/20 History budesonide See Rx Instructions .ROUTE .COMPLEX 08/08/20 08/16/20 08/15/20 History bumetanide 1 mg PO EVERY OTHER DAY 08/08/20 08/16/20 08/15/20 History citalopram 40 mg PO DAILY@82908/08/20 08/16/20 08/15/20 History cyclobenzaprine 10 mg PO TID@0830,1399,209908/08/20 08/16/20 08/15/20 History formoterol fumarate [Perforomist] 2 ml INHALATION BID@829,209908/08/20 08/16/20 08/15/20 History hydralazine 100 mg PO TID@829,1399,209908/08/20 08/16/20 08/15/20 History isosorbide mononitrate 60 mg PO DAILY@82908/08/20 08/16/20 08/15/20 History levothyroxine 50 mcg PO DAILY@82908/08/20 08/16/20 08/15/20 History magnesium oxide 400 mg PO BID@829,209908/08/20 08/16/20 08/15/20 History metoprolol succinate 50 mg PO BID@829,209908/08/20 08/16/20 08/15/20 History montelukast 10 mg PO DAILY@82908/08/20 08/16/20 08/15/20 History omeprazole 20 mg PO DAILY@82908/08/20 08/16/20 08/15/20 History revefenacin [Yupelri] 175 mcg INHALATION DAILY@82908/08/20 08/16/20 08/15/20 History roflumilast [Daliresp] 500 mcg PO DAILY@82908/08/20 08/16/20 08/15/20 History ropinirole 1 mg PO DAILY@82908/08/20 08/16/20 08/15/20 History salmeterol [Serevent Diskus] 1 inh INHALATION BID@08/08/20 08/16/20 08/15/20 History Allergies Allergy/AdvReac Type Severity Reaction Status Date / Time lisinopril Allergy anaphylaxis Verified 08/16/20 09:53 Sulfa (Sulfonamide Allergy unknown Verified 08/16/20 09:53 Antibiotics) PFSH Acute PFSH: Medical History AAA (abdominal aortic aneurysm) 4.1 x 4.4 x 5.7 cm 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 Anemia Atypical chest pain Chronic kidney disease CKD stage III, solitary kidney COPD (chronic obstructive pulmonary disease) Depression Endoleak post (EVAR) endovascular aneurysm repair GERD (gastroesophageal reflux disease) History of stent insertion of renal artery Hypercholesteremia Hypertension Hypertensive urgency Resolved Hypothyroidism Normal colonoscopy Peripheral vascular disease Restless leg Surgical History H/O: hysterectomy History of repair of aneurysm of abdominal aorta using endovascular stent graft Hx of tonsillectomy S/P appendectomy Family History Other CAD (coronary artery disease) Hypertension Social History Smoking and tobacco status: former smoker Quit status (tobacco): has quit using tobacco Year quit tobacco: 2005 PPD x 35 Years Second hand smoke exposure: Yes Smoking risk assessment/counseling performed?: No Alcohol intake: never Desire information about alcohol rehabilitation?: No Counseling given: No Counseling given: No Lives independently: Yes Household members: family and children Marital status: / Current occupational status: disabled History of recent travel: No Current gender identity: Female Vitals/I&O/Wt Last Vital Signs Temp 100.2 F H 08/16/20 13:30 Pulse 92 08/16/20 14:02 Resp 20 H 08/16/20 13:30 BP 157/79 08/16/20 13:30 Pulse Ox 100 08/16/20 13:30 Weight last 48 hrs Weight 82 lb Physical Exam Const: GENERAL APPEARANCE: ill appearing NUTRITIONAL APPEARANCE: thin ORIENTATION/CONSCIOUSNESS: Yes awake, Yes oriented to person, Yes oriented to place and Yes oriented to time Eye: COMMON NORMALS: EOMs intact bilaterally Resp: EFFORT & INSPECTION: Yes respiratory distress and Yes other Cardio: RATE: regular rate RHYTHM: regular rhythm GI: COMMON NORMALS: Normal to inspection, nondistended, normoactive bowel sounds present Extremity: OTHER: no edema Data : 08/16/20 09:50 08/16/20 09:50 Micro: Microbiology 08/16/20 10:00 Blood Culture - Preliminary Blood SPECIMEN COLLECTED 08/16/20 10:15 Gram Stain - Final Sputum - Expectorated Sputum 08/16/20 10:12 Blood Culture - Preliminary Blood SPECIMEN COLLECTED A&P Assessment and plan (1) COPD (chronic obstructive pulmonary disease): Status: Chronic Qualifiers: COPD type: unspecified COPD Qualified Code(s): J44.9 - Chronic obstructive pulmonary disease, unspecified Additional A&P Information This is a 65-year-old female history of COPD, hypertension, AAA, hypothyroidism who presented with worsening shortness of breath. #acute on chronic respiratory failure --continue O2, IV steroids, ABX --COVID PCR pending -duonebs #COPD --as above --restart home medications #HTN --stable --restart home medications #CKD --unclear baseline #hypothryoidism -continue replacement #history of AAA --statin, antihypertensive medications #elevated D-dimer --CT negative for PE Attestations Medical Necessity Statement*: Hali James's hospital stay will require greater than 2 midnights for respiratory failure Coding Level of Care Code Acute [employer] for [facility] Fwd Diagnoses COPD (chronic obstructive pulmonary disease) J44.9 COPD type: unspecified COPD
[2020-08-16] MEDS: sodium chloride 0.9% 1,000 ML 100 ML IV (14:25)
[2020-08-16] MEDS: acetaminophen 325 mg Tablet 650 MG PO (14:53)
[2020-08-16] MEDS: dexamethasone 10 mg/mL INJ IVP (14:55)
[2020-08-16] MEDS: enoxaparin 30 mg/0.3 mL Syringe SUBCUT (14:56)
[2020-08-16] MEDS: cefTRIAXone 1,000 MG in sodium chloride 0.9% (plus) 50 ML 100 MG IV (14:56)
[2020-08-16] MEDS: azithromycin 500 MG in sodium chloride 0.9% 250 ML 250 MG IV (15:51)
[2020-08-16] MEDS: HYDROcodone-acetaminophen 5-325 mg Tablet 1 TAB PO ×2 (15:54→21:16)
[2020-08-16 17:04] LABS: Troponin 5 6HR 21.27 ng/L (0-10); Troponin 5 6HR Delta 0.27 ng/L (0-12)
[2020-08-16] MEDS: hyDRALAzine 50 mg Tablet 100 MG PO (20:45)
[2020-08-16] MEDS: metoprolol succinate ER (24 HR) 50 mg Tablet PO (21:14)
[2020-08-16] MEDS: cyclobenzaprine 10 mg Tablet PO (21:14)
[2020-08-17] VITALS (16 sets, daily range): BP systolic 123–156; BP diastolic 69–79; PULSE 62–92; RESP 16–26; TEMP 36.3–36.7; O2SAT 98–99
[2020-08-17] MEDS: sodium chloride 0.9% 1,000 ML 100 ML IV ×3 (02:02→22:40)
[2020-08-17 04:20] LABS: Basophils % 0.1 %; Hematocrit 31.9 % (37.0-47.0); Lymphocytes # 0.8 10^3/uL (0.8-4.8); Lymphocytes % 7.9 %; Mean Corpuscular HGB Conc 31.3 g/dL (30.0-36.0); Mean Corpuscular Volume 89.4 fL (81-99); Mean Platelet Volume 9.6 fL (7.4-10.4); Monocytes # 0.1 10^3/uL (0.2-0.9); Neutrophils # 8.67 10^3/uL (1.8-7.7); Neutrophils % 90.5 %; Nucleated Red Blood Cells % 0 %; Platelet Count 235 10^3/cmm (130-400); Red Blood Count 3.57 10^6/uL (4.1-5.3); Red Cell Distribution Width 14.2 % (12.1-15.1); White Blood Count 9.6 10^3/uL (4.0-10.0)
[2020-08-17 04:35] LABS: Anion Gap 12.1 (5-19); Blood Urea Nitrogen 20 mg/dL (8-23); Carbon Dioxide 21 mmol/L (22-29); Chloride 107 mmol/L (98-107); Glomerular Filtration Rate 45.4 mL/min (90-130); Glucose 108 mg/dL (65-115); Osmolality Calculated 283 mOsm/kg (285-295); Potassium 5.1 mmol/L (3.5-5.1); Sodium 135 mmol/L (136-145)
[2020-08-17] MEDS: HYDROcodone-acetaminophen 5-325 mg Tablet 1 TAB PO ×3 (05:43→22:11)
[2020-08-17] MEDS: albuterol 8 gm MDI 2 PUFF INHALATION ×4 (07:49→23:07)
[2020-08-17] MEDS: citalopram 20 mg Tablet 40 MG PO (09:45)
[2020-08-17] MEDS: pantoprazole DR 40 mg Tablet PO (09:45)
[2020-08-17] MEDS: ropinirole 1 mg Tablet PO (09:45)
[2020-08-17] MEDS: aspirin 81 mg EC Tablet PO (09:45)
[2020-08-17] MEDS: isosorbide mononitrate ER 60 mg Tablet PO (09:46)
[2020-08-17] MEDS: roflumilast 500 mcg Tablet PO (09:46)
[2020-08-17] MEDS: metoprolol succinate ER (24 HR) 50 mg Tablet PO ×2 (09:46→22:06)
[2020-08-17] MEDS: montelukast sodium 10 mg Tablet PO (09:46)
[2020-08-17] MEDS: amitriptyline 25 mg Tablet PO (09:46)
[2020-08-17] MEDS: hyDRALAzine 50 mg Tablet 100 MG PO ×3 (09:46→22:05)
[2020-08-17] MEDS: levothyroxine 50 mcg Tablet PO (09:47)
[2020-08-17] MEDS: cyclobenzaprine 10 mg Tablet PO ×3 (09:47→22:05)
[2020-08-17] MEDS: amlodipine 5 mg Tablet PO (09:47)
--- NOTE | 2020-08-17 12:10 | PM.PN ---
Subjective Subjective: Interval history: Hali James is a 65 year old female with pmh COPD, HTN, AAA Who presented with shortness of breath and cough. Reported fever at home. Today she reports feeling slightly better. Still has right-sided chest pain. She does have some dyspnea. Cough better. Covid PCR pending Medications: Reviewed: Yes Vitals/I&O/Wt Last Vital Signs Temp 97.4 F L 08/17/20 11:04 Pulse 90 08/17/20 12:01 Resp 20 H 08/17/20 11:59 BP 153/69 08/17/20 11:04 Pulse Ox 98 08/17/20 11:59 08/16/20 08/17/20 08/17/20 22:59 06:59 14:59 Intake Total 660 / 660 1200 / 1860 1465 / 1465 Balance 660 / 660 1200 / 1860 1465 / 1465 Weight last 48 hrs Weight 82 lb Physical Exam Const: GENERAL APPEARANCE: ill appearing NUTRITIONAL APPEARANCE: thin ORIENTATION/CONSCIOUSNESS: Yes awake, Yes oriented to person, Yes oriented to place and Yes oriented to time Eye: COMMON NORMALS: EOMs intact bilaterally Resp: EFFORT & INSPECTION: Yes other AUSCULTATION: diminished lung sounds Cardio: COMMON NORMALS: regular rate and regular rhythm RATE: regular rate RHYTHM: regular rhythm GI: COMMON NORMALS: Normal to inspection, nondistended, normoactive bowel sounds present Extremity: OTHER: no edema Neuro: SENSORIUM/ORIENTATION: Yes oriented to person, Yes oriented to place and Yes oriented to time Data : 08/17/20 03:34 08/17/20 03:34 Micro: Microbiology 08/16/20 10:15 Gram Stain - Final Sputum - Expectorated Sputum Sputum Culture - Preliminary 08/16/20 10:12 Blood Culture - Preliminary Blood NEGATIVE TO DATE 08/16/20 10:00 Blood Culture - Preliminary Blood SPECIMEN COLLECTED A&P Assessment and plan (1) COPD (chronic obstructive pulmonary disease): Status: Chronic Qualifiers: COPD type: unspecified COPD Qualified Code(s): J44.9 - Chronic obstructive pulmonary disease, unspecified Additional A&P Information This is a 65-year-old female history of COPD, hypertension, AAA, hypothyroidism who presented with worsening shortness of breath. #acute on chronic respiratory failure --continue O2, IV steroids, ABX --COVID PCR pending -jojo Jonesu-Medrol added, albuterol nebs -Pulmonary consultation on Tuesday #COPD --as above #HTN --stable --Continue amlodipine and hydralazine #CKD --unclear baseline #hypothryoidism -continue replacement #history of AAA --statin, antihypertensive medications #elevated D-dimer --CT negative for PE #Loose stools --Monitor Attestations Medical Necessity Statement*: Hali Hilton James's hospital stay will require greater than 2 midnights for copd Coding Level of Care Code Acute Digital Marketing Assistant for [facility] Fwd Exam Detailed Diagnoses COPD (chronic obstructive pulmonary disease) J44.9 COPD type: unspecified COPD
[2020-08-17] MEDS: enoxaparin 30 mg/0.3 mL Syringe SUBCUT (15:17)
[2020-08-17] MEDS: cefTRIAXone 1,000 MG in sodium chloride 0.9% (plus) 50 ML 100 MG IV (15:17)
[2020-08-17] MEDS: azithromycin 500 MG in sodium chloride 0.9% 250 ML 250 MG IV (16:01)
[2020-08-18] VITALS (15 sets, daily range): BP systolic 137–165; BP diastolic 72–95; PULSE 70–94; RESP 17–20; TEMP 36.4–36.9; O2SAT 97–99
[2020-08-18 05:14] LABS: Hematocrit 28.7 % (37.0-47.0); Hemoglobin 8.8 g/dL (11.5-15.3); Lymphocytes # 0.7 10^3/uL (0.8-4.8); Lymphocytes % 8.7 %; Mean Corpuscular HGB Conc 30.7 g/dL (30.0-36.0); Mean Corpuscular Hemoglobin 28.2 pg (28.0-34.0); Mean Platelet Volume 9.4 fL (7.4-10.4); Monocytes # 0.1 10^3/uL (0.2-0.9); Monocytes % 0.7 %; Neutrophils # 6.68 10^3/uL (1.8-7.7); Neutrophils % 89.9 %; Nucleated Red Blood Cells % 0 %; Platelet Count 249 10^3/cmm (130-400); Red Blood Count 3.12 10^6/uL (4.1-5.3); Red Cell Distribution Width 14.9 % (12.1-15.1); White Blood Count 7.4 10^3/uL (4.0-10.0)
[2020-08-18 05:33] LABS: Anion Gap 12.6 (5-19); Blood Urea Nitrogen 21 mg/dL (8-23); Calcium 8.7 mg/dL (8.5-10.5); Carbon Dioxide 18 mmol/L (22-29); Chloride 113 mmol/L (98-107); Glucose 129 mg/dL (65-115); Osmolality Calculated 293 mOsm/kg (285-295); Potassium 4.6 mmol/L (3.5-5.1); Sodium 139 mmol/L (136-145)
[2020-08-18] MEDS: hyDRALAzine 50 mg Tablet 100 MG PO ×3 (08:07→20:40)
[2020-08-18] MEDS: roflumilast 500 mcg Tablet PO (08:07)
[2020-08-18] MEDS: citalopram 20 mg Tablet 40 MG PO (08:07)
[2020-08-18] MEDS: montelukast sodium 10 mg Tablet PO (08:07)
[2020-08-18] MEDS: aspirin 81 mg EC Tablet PO (08:07)
[2020-08-18] MEDS: amitriptyline 25 mg Tablet PO (08:07)
[2020-08-18] MEDS: isosorbide mononitrate ER 60 mg Tablet PO (08:08)
[2020-08-18] MEDS: metoprolol succinate ER (24 HR) 50 mg Tablet PO ×2 (08:08→20:39)
[2020-08-18] MEDS: amlodipine 5 mg Tablet PO (08:08)
[2020-08-18] MEDS: cyclobenzaprine 10 mg Tablet PO ×3 (08:08→20:40)
[2020-08-18] MEDS: bumetanide 1 mg Tablet PO (08:08)
[2020-08-18] MEDS: levothyroxine 50 mcg Tablet PO (08:08)
[2020-08-18] MEDS: pantoprazole DR 40 mg Tablet PO (08:08)
[2020-08-18] MEDS: ropinirole 1 mg Tablet PO (08:08)
[2020-08-18] MEDS: sodium chloride 0.9% 1,000 ML 100 ML IV ×2 (08:09→17:03)
[2020-08-18] MEDS: HYDROcodone-acetaminophen 5-325 mg Tablet 1 TAB PO (08:15)
[2020-08-18] MEDS: albuterol 8 gm MDI 2 PUFF INHALATION ×4 (08:21→21:06)
--- NOTE | 2020-08-18 09:41 | PC.NURSE ---
put in order for PCXR for SOB
--- NOTE | 2020-08-18 10:00 | XRR_ITS ---
PROCEDURE INFORMATION: Exam: XR Chest, 1 View Exam date and time: 08/18/2020 10:04 AM Age: 65 years old Clinical indication: Cough and shortness of breath; Additional info: SOB TECHNIQUE: Imaging protocol: XR of the chest Views: 1 view. COMPARISON: CR (CHEST, ) 08/16/2020 10:06 AM FINDINGS: Lungs: Scattered mild pulmonary fibrotic densities are present. There is no pneumonia. Pleural spaces: Unremarkable. No pleural effusion. No pneumothorax. Heart/Mediastinum: The heart is not enlarged. There is calcification of the aortic arch. Bones/joints: Unremarkable. XR/XR chest 1V portable [id number] IMPRESSION: No acute cardiopulmonary abnormality.
[2020-08-18] MEDS: benzonatate 100 mg Capsule PO (10:47)
--- NOTE | 2020-08-18 14:51 | P.PN_ITS ---
Subjective Subjective: Interval history: This morning patient was examined, she still complaining of cough, some shortness of breath, but does feel a bit better, no chest pain, no palpitations, no lightheadedness, no dizziness Medications: Reviewed: Yes Vitals/I&O/Wt Last Vital Signs Temp 97.5 F L 08/18/20 12:45 Pulse 84 08/18/20 13:55 Resp 18 08/18/20 12:45 BP 151/73 08/18/20 12:45 Pulse Ox 98 08/18/20 12:45 08/17/20 08/18/20 08/18/20 22:59 06:59 14:59 Intake Total 1300 / 2965 1188.333 / 1188.333 Output Total 1000 / 1000 Balance 1300 / 2965 188.333 / 188.333 Physical Exam Const: COMMON NORMALS: no acute distress and patient oriented x3 HENMT: COMMON NORMALS: normocephalic HEAD & SCALP: normocephalic Neck/C-Spine: COMMON NORMALS: no JVD Resp: COMMON NORMALS: normal respiratory effort, No retractions and No use of accessory muscles AUSCULTATION: wheezes Cardio: COMMON NORMALS: no JVD, regular rate, regular rhythm, S1 normal heart sound present and S2 normal heart sound present RATE: regular rate RHYTHM: regular rhythm HEART SOUNDS: S1 normal heart sound present and S2 normal heart sound present GI: COMMON NORMALS: Normal to inspection, nondistended, normoactive bowel sounds present, Soft to palpation, non-tender, No hepatosplenomegaly present, no masses and no bruits PALPATION: Yes Soft to palpation and Yes No hepatosplenomegaly present Extremity: COMMON NORMALS: capillary refill normal, no clubbing, cyanosis or edema, no calf tenderness and no pedal edema Neuro: COMMON NORMALS: patient oriented x3 Psych: COMMON NORMALS: mental status grossly normal Data : 08/18/20 04:45 08/18/20 04:45 Micro: Microbiology 08/16/20 10:15 Gram Stain - Final Sputum - Expectorated Sputum Sputum Culture - Final Moraxella catarrhalis 08/16/20 10:00 Blood Culture - Preliminary Blood NEGATIVE TO DATE 08/16/20 10:12 Blood Culture - Preliminary Blood NEGATIVE TO DATE A&P Assessment and plan (1) COPD (chronic obstructive pulmonary disease): Status: Chronic Qualifiers: COPD type: unspecified COPD Qualified Code(s): J44.9 - Chronic obs tructive pulmonary disease, unspecified Additional A&P Information This is a 65-year-old female history of COPD, hypertension, AAA, hypothyroidism who presented with worsening shortness of breath. #acute on chronic respiratory failure -Patient's FEV1 over FVC was 53%, gold D -CTA of the chest shows no pulmonary emboli, COPD, bronchial wall thickening, interstitial disease, airspace disease, disproportionate localized in the right upper lobe, extending to the pleural surface -Likely secondary to COPD, Moraxella pneumonia -Continue BiPAP as needed during the day, BiPAP during the night -Solu-Medrol 60 IV every 8 hours -Continue azithromycin and Rocephin -Duo nebs -COVID PCR pending -Follow blood cultures, sputum cultures, so far show Moraxella -We will order cardiac echocardiogram to evaluate aortic valve -Continue 1 mg of Bumex every other day #COPD --as above #HTN --stable --Continue amlodipine and hydralazine #CKD --unclear baseline #hypothryoidism -continue replacement #history of AAA --statin, antihypertensive medications #elevated D-dimer --CT negative for PE #Loose stools --Monitor #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
[2020-08-18 16:04] LABS: Coronavirus Test Green County Not Detected
[2020-08-18] MEDS: cefTRIAXone 1,000 MG in sodium chloride 0.9% (plus) 50 ML 100 MG IV (16:19)
[2020-08-18] MEDS: enoxaparin 30 mg/0.3 mL Syringe SUBCUT (16:22)
[2020-08-18] MEDS: azithromycin 500 MG in sodium chloride 0.9% 250 ML 250 MG IV (17:02)
--- NOTE | 2020-08-18 17:04 | PC.RESP ---
PULMONARY REHAB INFORMATION SENT TO PATIENT.
[2020-08-18] MEDS: ipratropium-albuterol 3 mL Neb INHALATION (21:05)
[2020-08-19] VITALS (14 sets, daily range): BP systolic 145–174; BP diastolic 76–93; PULSE 76–99; RESP 14–20; TEMP 36.4–36.9; O2SAT 95–99
[2020-08-19] MEDS: benzonatate 100 mg Capsule PO ×2 (00:43→14:19)
[2020-08-19] MEDS: HYDROcodone-acetaminophen 5-325 mg Tablet 1 TAB PO (00:43)
[2020-08-19] MEDS: sodium chloride 0.9% 1,000 ML 100 ML IV (03:59)
[2020-08-19 05:37] LABS: Hematocrit 28.7 % (37.0-47.0); Hemoglobin 8.7 g/dL (11.5-15.3); Lymphocytes # 0.7 10^3/uL (0.8-4.8); Lymphocytes % 7.6 %; Mean Corpuscular HGB Conc 30.3 g/dL (30.0-36.0); Mean Corpuscular Hemoglobin 27.7 pg (28.0-34.0); Mean Corpuscular Volume 91.4 fL (81-99); Mean Platelet Volume 9.4 fL (7.4-10.4); Monocytes # 0.1 10^3/uL (0.2-0.9); Neutrophils # 7.92 10^3/uL (1.8-7.7); Neutrophils % 90.8 %; Nucleated Red Blood Cells % 0 %; Platelet Count 266 10^3/cmm (130-400); Red Blood Count 3.14 10^6/uL (4.1-5.3); White Blood Count 8.7 10^3/uL (4.0-10.0)
[2020-08-19 06:09] LABS: NT Pro B Type Natriuretic Pept 5462 pg/mL (0-125); Procalcitonin 0.61 ng/mL (0-0.5)
[2020-08-19 06:20] LABS: Alanine Aminotransferase 6 U/L (0-33); Albumin Level 2.9 g/dL (3.5-5.2); Alkaline Phosphatase 63 IU/L (35-105); Anion Gap 12.3 (5-19); Aspartate Amino Transferase 9 U/L (0-32); Blood Urea Nitrogen 23 mg/dL (8-23); C Reactive Protein 26.4 mg/L (0.0-4.9); Calcium 8.9 mg/dL (8.5-10.5); Carbon Dioxide 19 mmol/L (22-29); Chloride 113 mmol/L (98-107); Globulin 2.9 g/dL (1.3-4.6); Glomerular Filtration Rate 50.2 mL/min (90-130); Glucose 106 mg/dL (65-115); Magnesium 1.8 mg/dL (1.7-2.3); Osmolality Calculated 294 mOsm/kg (285-295); Phosphorus 3.1 mg/dL (2.5-4.5); Potassium 4.3 mmol/L (3.5-5.1); Sodium 140 mmol/L (136-145); Total Bilirubin 0.2 mg/dL (0.15-1.2); Total Protein 5.8 g/dL (6.6-8.7)
[2020-08-19] MEDS: roflumilast 500 mcg Tablet PO (07:43)
[2020-08-19] MEDS: levothyroxine 50 mcg Tablet PO (07:43)
[2020-08-19] MEDS: metoprolol succinate ER (24 HR) 50 mg Tablet PO ×2 (07:43→20:33)
[2020-08-19] MEDS: cyclobenzaprine 10 mg Tablet PO ×3 (07:43→20:33)
[2020-08-19] MEDS: ropinirole 1 mg Tablet PO (07:43)
[2020-08-19] MEDS: montelukast sodium 10 mg Tablet PO (07:43)
[2020-08-19] MEDS: isosorbide mononitrate ER 60 mg Tablet PO (07:43)
[2020-08-19] MEDS: citalopram 20 mg Tablet 40 MG PO (07:43)
[2020-08-19] MEDS: aspirin 81 mg EC Tablet PO (07:43)
[2020-08-19] MEDS: amitriptyline 25 mg Tablet PO (07:43)
[2020-08-19] MEDS: amlodipine 5 mg Tablet PO (07:43)
[2020-08-19] MEDS: pantoprazole DR 40 mg Tablet PO (07:43)
[2020-08-19] MEDS: albuterol 8 gm MDI 2 PUFF INHALATION ×2 (09:24→14:34)
[2020-08-19] MEDS: hyDRALAzine 50 mg Tablet 100 MG PO ×3 (09:41→20:33)
--- NOTE | 2020-08-19 10:35 | PM.PN ---
Subjective Subjective: Interval history: This morning patient was examined, she still complaining of shortness of breath with exertion, still has some wheezing, but doing better, no chest pain, no palpitations, no lightheadedness, no dizziness, no fevers, no chills Medications: Reviewed: Yes Vitals/I&O/Wt Last Vital Signs Temp 98.3 F 08/19/20 07:45 Pulse 95 08/19/20 09:27 Resp 20 H 08/19/20 09:26 BP 174/92 08/19/20 07:45 Pulse Ox 98 08/19/20 09:26 08/18/20 08/19/20 08/19/20 22:59 06:59 14:59 Intake Total 1190 / 2378.333 1250 / 3628.333 240 / 240 Balance 1190 / 1207.648 6049 / 2628.333 240 / 240 Physical Exam Const: COMMON NORMALS: no acute distress and patient oriented x3 HENMT: COMMON NORMALS: normocephalic HEAD & SCALP: normocephalic Neck/C-Spine: COMMON NORMALS: no JVD Resp: COMMON NORMALS: normal respiratory effort, No retractions and No use of accessory muscles AUSCULTATION: wheezes Cardio: COMMON NORMALS: no JVD, regular rate, regular rhythm, S1 normal heart sound present and S2 normal heart sound present RATE: regular rate RHYTHM: regular rhythm HEART SOUNDS: S1 normal heart sound present and S2 normal heart sound present GI: COMMON NORMALS: Normal to inspection, nondistended, normoactive bowel sounds present, Soft to palpation, non-tender, No hepatosplenomegaly present, no masses and no bruits PALPATION: Yes Soft to palpation and Yes No hepatosplenomegaly present Extremity: COMMON NORMALS: capillary refill normal, no clubbing, cyanosis or edema, no calf tenderness and no pedal edema Neuro: COMMON NORMALS: patient oriented x3 Psych: COMMON NORMALS: mental status grossly normal Data : 08/19/20 05:10 08/19/20 05:10 Micro: Microbiology 08/16/20 10:15 Gram Stain - Final Sputum - Expectorated Sputum Sputum Culture - Final Moraxella catarrhalis A&P Assessment and plan (1) COPD (chronic obstructive pulmonary disease): Status: Chronic Qualifiers: COPD type: unspecified COPD Qualified Code(s): J44.9 - Chronic obstructive pulmonary disease, unspecified Additional A&P Information This is a 65-year-old female history of COPD, hypertension, AAA, hypothyroidism who presented with worsening shortness of breath. #acute on chronic respiratory failure -Patient's FEV1 over FVC was 53%, gold D -CTA of the chest shows no pulmonary emboli, COPD, bronchial wall thickening, interstitial disease, airspace disease, disproportionate localized in the right upper lobe, extending to the pleural surface -Likely secondary to COPD, Moraxella pneumonia -Continue BiPAP as needed during the day, BiPAP during the night -Solu-Medrol 60 IV every 8 hours -Continue azithromycin and Rocephin -Duo nebs -COVID PCR negative -Follow blood cultures, sputum cultures, so far show Moraxella -Echocardiogram pending -Switch to Lasix 40 mg IV daily #COPD --as above #HTN --stable --Continue amlodipine and hydralazine #CKD --unclear baseline #hypothryoidism -continue replacement #history of AAA --statin, antihypertensive medications #elevated D-dimer --CT negative for PE #Loose stools --Monitor #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
[2020-08-19] MEDS: FUROsemide 10 mg/mL SDV 4mL 40 MG IVP (11:11)
[2020-08-19] MEDS: cefTRIAXone 1,000 MG in sodium chloride 0.9% (plus) 50 ML 100 MG IV (14:19)
[2020-08-19] MEDS: enoxaparin 40 mg/0.4 mL Syringe SUBCUT (14:19)
--- NOTE | 2020-08-19 15:00 | USCV_ITS ---
Hali James Age: 65 Gender: F : 1955 Exam Date: 08/19/2020 09:08 Ordering Phys: Volodymyr Duran MD Technologist: Harvinder Payne [place] [facility] [place] BP: 124 / 72 HR: 73 Rhythm: Sinus Technical Quality: Good MEASUREMENTS (Male / Female) Normal Values 2D ECHO LV Diastolic Diameter PLAX 3.8 cm 4.2 - 5.9 / 3.9 - 5.3 cm LV Systolic Diameter PLAX 2.3 cm IVS Diastolic Thickness 0.8 cm 0.6 - 1.0 / 0.6 - 0.9 cm IVS Systolic Thickness 1.1 cm LVPW Diastolic Thickness 1.1 cm 0.6 - 1.0 / 0.6 - 0.9 cm LVPW Systolic Thickness 1.3 cm LVOT Diameter 2.0 cm LV Ejection Fraction 2D Teich 71.5 % LV Ejection Fraction MOD 2C 71.5 % LV Ejection Fraction 2C AL 72.5 % LA Diameter 3.0 cm LA Width 3.4 cm LA Height 0.0 cm RA Width 3.1 cm RA Height 4.3 cm M-MODE LV Diastolic Diameter MM 4.3 cm 4.2 - 5.9 / 3.9 - 5.3 cm LV Systolic Diameter MM 2.8 cm LV Ejection Fraction MM Teich 66.3 % IVS Diastolic Thickness MM 0.9 cm 0.6 - 1.0 / 0.6 - 0.9 cm IVS Systolic Thickness MM 1.3 cm LVPW Diastolic Thickness MM 1.2 cm 0.6 - 1.0 / 0.6 - 0.9 cm LVPW Systolic Thickness MM 1.2 cm RV Diastolic Diameter MM 1.6 cm Aortic Annulus Diameter 2.7 cm LA Ao Ratio MM 1.2 MV E Point Septal Separation 0.8 cm DOPPLER AV Peak Velocity 120.0 cm/s LVOT Peak Velocity 94.0 cm/s AV Area Cont Eq vti 2.4 cm squared AV Area Cont Eq pk 2.5 cm squared MV Area PHT 5.0 cm squared Mitral E to A Ratio 1.1 MV E' Velocity 51.5 cm/s Mitral E to MV E' Ratio 7.9 Mitral E to LV E' Lateral Ratio 7.7 Mitral E to LV E' Septal Ratio 8.1 TR Peak Velocity 238.3 cm/s TR Peak Gradient 22.7 mmHg Right Atrial Pressure 3.0 mmHg Pulmonary Artery Systolic Pressu 25.7 mmHg PV Peak Velocity 89.0 cm/s FINDINGS Left Ventricle Normal left ventricular cavity size and upper normal left ventricular wall thickness. Normal left ventricular systolic function. Left ventricular ejection fraction is estimated at 60 %. No regional wall motion abnormalities. Normal diastolic function. Right Ventricle Normal right ventricular size and systolic function. Right ventricular systolic pressure 36 mmHg. Right Atrium Normal right atrial size. Left Atrium Mildly increased left atrial size. Mitral Valve Mildly thickened mitral valve. No mitral valve stenosis. Mild- moderate posteriorly directed mitral valve regurgitation. Aortic Valve Aortic valve not well visualized. Probably mildly thickened trileaflet aortic valve. No aortic valve stenosis. No aortic valve regurgitation. Tricuspid Valve Structurally normal tricuspid valve. Trace tricuspid valve regurgitation. Pulmonic Valve Pulmonic valve not well visualized. No pulmonary valve stenosis. Pericardium Trivial pericardial effusion. Aorta Normal size aortic root. CONCLUSIONS 1. Normal left ventricular cavity size and upper normal left ventricular wall thickness. Normal left ventricular systolic function. Left ventricular ejection fraction is estimated at 60 %. No regional wall motion abnormalities. Normal diastolic function. 2. Normal right ventricular size and systolic function. 3. Mildly increased left atrial size. 4. Mild-moderate posteriorly directed mitral valve regurgitation. 5. Trivial pericardial effusion. 6. When compared to previous echocardiogram dated 04/22/2020, pericardial effusion has decreased in size. Nakita Hernandez MD (Electronically Signed) Final Date: 19 August 2020 13:31 S
[2020-08-19] MEDS: azithromycin 250 mg Tablet 500 MG PO (16:29)
[2020-08-19] MEDS: ipratropium-albuterol 3 mL Neb INHALATION (21:40)
[2020-08-20] VITALS (18 sets, daily range): BP systolic 130–206; BP diastolic 76–98; PULSE 67–79; RESP 13–20; TEMP 36.6–36.8; O2SAT 96–99
[2020-08-20] MEDS: HYDROcodone-acetaminophen 5-325 mg Tablet 1 TAB PO (00:15)
[2020-08-20 05:14] LABS: Basophils % 0.2 %; Hematocrit 29.3 % (37.0-47.0); Hemoglobin 9.4 g/dL (11.5-15.3); Lymphocytes # 0.6 10^3/uL (0.8-4.8); Lymphocytes % 10.1 %; Mean Corpuscular HGB Conc 32.1 g/dL (30.0-36.0); Mean Corpuscular Hemoglobin 27.9 pg (28.0-34.0); Mean Corpuscular Volume 86.9 fL (81-99); Monocytes # 0.1 10^3/uL (0.2-0.9); Monocytes % 1.1 %; Neutrophils # 4.97 10^3/uL (1.8-7.7); Neutrophils % 87.7 %; Nucleated Red Blood Cells % 0 %; Platelet Count 279 10^3/cmm (130-400); Red Blood Count 3.37 10^6/uL (4.1-5.3); Red Cell Distribution Width 14.4 % (12.1-15.1); White Blood Count 5.7 10^3/uL (4.0-10.0)
[2020-08-20 05:42] LABS: Alanine Aminotransferase 7 U/L (0-33); Alkaline Phosphatase 55 IU/L (35-105); Anion Gap 11.5 (5-19); Aspartate Amino Transferase 9 U/L (0-32); Blood Urea Nitrogen 28 mg/dL (8-23); C Reactive Protein 13.3 mg/L (0.0-4.9); Calcium 8.9 mg/dL (8.5-10.5); Carbon Dioxide 21 mmol/L (22-29); Chloride 108 mmol/L (98-107); Globulin 2.7 g/dL (1.3-4.6); Glomerular Filtration Rate 45.4 mL/min (90-130); Glucose 106 mg/dL (65-115); Magnesium 1.8 mg/dL (1.7-2.3); Osmolality Calculated 290 mOsm/kg (285-295); Phosphorus 3.5 mg/dL (2.5-4.5); Potassium 3.5 mmol/L (3.5-5.1); Sodium 137 mmol/L (136-145); Total Bilirubin 0.2 mg/dL (0.15-1.2); Total Protein 5.7 g/dL (6.6-8.7)
[2020-08-20 05:45] LABS: NT Pro B Type Natriuretic Pept 4876 pg/mL (0-125); Procalcitonin 0.34 ng/mL (0-0.5)
--- NOTE | 2020-08-20 05:52 | PC.NURSE ---
Patient stated that she has been up 2 times since the start of my shift at 1900 on 08/19/2020
[2020-08-20] MEDS: citalopram 20 mg Tablet 40 MG PO (08:21)
[2020-08-20] MEDS: metoprolol succinate ER (24 HR) 50 mg Tablet PO ×2 (08:21→21:50)
[2020-08-20] MEDS: isosorbide mononitrate ER 60 mg Tablet PO (08:21)
[2020-08-20] MEDS: aspirin 81 mg EC Tablet PO (08:21)
[2020-08-20] MEDS: amlodipine 10 mg Tablet PO (08:22)
[2020-08-20] MEDS: montelukast sodium 10 mg Tablet PO (08:22)
[2020-08-20] MEDS: hyDRALAzine 50 mg Tablet 100 MG PO ×3 (08:22→21:50)
[2020-08-20] MEDS: amitriptyline 25 mg Tablet PO (08:22)
[2020-08-20] MEDS: cyclobenzaprine 10 mg Tablet PO ×3 (08:22→21:50)
[2020-08-20] MEDS: roflumilast 500 mcg Tablet PO (08:22)
[2020-08-20] MEDS: pantoprazole DR 40 mg Tablet PO (08:22)
[2020-08-20] MEDS: ropinirole 1 mg Tablet PO (08:22)
[2020-08-20] MEDS: levothyroxine 50 mcg Tablet PO (08:24)
[2020-08-20] MEDS: potassium chloride ER 20 mEq Tablet 40 MEQ PO (10:34)
[2020-08-20] MEDS: cloNIDine 0.1 mg Tablet PO ×2 (10:34→17:54)
[2020-08-20] MEDS: polyethylene glycol 3350 Pkt 17 gm PO (10:34)
[2020-08-20] MEDS: docusate sodium 100 mg Capsule PO ×2 (10:35→17:54)
[2020-08-20] MEDS: FUROsemide 10 mg/mL SDV 4mL 40 MG IVP (10:36)
--- NOTE | 2020-08-20 11:17 | P.PN_ITS ---
Subjective Subjective: Interval history: Patient was examined this morning, she did have elevated blood pressures overnight, no headache, no blurry vision, no chest pain, no palpitations, blood pressures remain in the 200s over 70s this morning, she is getting her morning medications, she tells me that she still feels short of breath with exertion at times, is getting better, no fevers, no chills Vitals/I&O/Wt Last Vital Signs Temp 98.1 F 08/20/20 08:00 Pulse 70 08/20/20 08:50 Resp 20 H 08/20/20 08:46 BP 206/79 08/20/20 10:34 Pulse Ox 98 08/20/20 08:46 08/19/20 08/20/20 08/20/20 22:59 06:59 14:59 Intake Total 1040 / 1400 480 / 480 Output Total 350 / 350 Balance 1040 / 700 130 / 130 Physical Exam Const: COMMON NORMALS: no acute distress and patient oriented x3 HENMT: COMMON NORMALS: normocephalic HEAD & SCALP: normocephalic Neck/C-Spine: COMMON NORMALS: no JVD Resp: COMMON NORMALS: normal respiratory effort, No retractions, No use of accessory muscles and clear to auscultation bilaterally AUSCULTATION: clear t o auscultation bilaterally Cardio: COMMON NORMALS: no JVD, regular rate, regular rhythm, S1 normal heart sound present and S2 normal heart sound present RATE: regular rate RHYTHM: regular rhythm HEART SOUNDS: S1 normal heart sound present and S2 normal heart sound present GI: COMMON NORMALS: Normal to inspection, nondistended, normoactive bowel sounds present, Soft to palpation, non-tender, No hepatosplenomegaly present, no masses and no bruits PALPATION: Yes Soft to palpation and Yes No hepatosplenomegaly present Extremity: COMMON NORMALS: capillary refill normal, no clubbing, cyanosis or edema, no calf tenderness and no pedal edema Neuro: COMMON NORMALS: patient oriented x3 Psych: COMMON NORMALS: mental status grossly normal Data : 08/20/20 05:05 08/20/20 05:05 A&P Assessment and plan (1) COPD (chronic obstructive pulmonary disease): Status: Chronic Qualifiers: COPD type: unspecified COPD Qualified Code(s): J44.9 - Chronic obstructive pulmonary disease, unspecified Additional A&P Information This is a 65-year-old female history of COPD, hypertension, AAA, hypothyroidism who presented with worsening shortness of breath. #acute on chronic respiratory failure -Patient's FEV1 over FVC was 53%, gold D -CTA of the chest shows no pulmonary emboli, COPD, bronchial wall thickening, interstitial disease, airspace disease, disproportionate localized in the right upper lobe, extending to the pleural surface -Likely secondary to COPD, Moraxella pneumonia -Continue BiPAP as needed during the day, BiPAP during the night -Decrease Solu-Medrol to 40 IV every 12 hours -Continue azithromycin and Rocephin -Duo nebs -COVID PCR negative -Follow blood cultures, sputum cultures, so far show Moraxella -Echocardiogram shows an EF of 60%, no regional wall motion abnormalities -1 dose of Lasix today #COPD --as above #HTN urgency -Continue amlodipine, hydralazine, Imdur -Will add clonidine -Additional blood pressure medications based on blood pressures #CKD --unclear baseline #hypothryoidism -continue replacement #history of AAA --statin, antihypertensive medications #elevated D-dimer --CT negative for PE #Loose stools --Monitor #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
[2020-08-20] MEDS: ipratropium-albuterol 3 mL Neb INHALATION (11:23)
[2020-08-20] MEDS: enoxaparin 40 mg/0.4 mL Syringe SUBCUT (14:02)
[2020-08-20] MEDS: cefTRIAXone 1,000 MG in sodium chloride 0.9% (plus) 50 ML 100 MG IV (14:30)
[2020-08-20] MEDS: azithromycin 250 mg Tablet 500 MG PO (14:30)
[2020-08-21] VITALS (10 sets, daily range): BP systolic 137–179; BP diastolic 78–92; PULSE 64–74; RESP 15–22; TEMP 36.4–36.9; O2SAT 93–100
[2020-08-21 05:21] LABS: Hematocrit 29.8 % (37.0-47.0); Hemoglobin 9.5 g/dL (11.5-15.3); Lymphocytes # 0.7 10^3/uL (0.8-4.8); Lymphocytes % 14.6 %; Mean Corpuscular HGB Conc 31.9 g/dL (30.0-36.0); Mean Corpuscular Hemoglobin 27.9 pg (28.0-34.0); Mean Corpuscular Volume 87.4 fL (81-99); Mean Platelet Volume 8.9 fL (7.4-10.4); Monocytes # 0.1 10^3/uL (0.2-0.9); Monocytes % 2.7 %; Neutrophils # 3.92 10^3/uL (1.8-7.7); Neutrophils % 80.8 %; Nucleated Red Blood Cells % 0 %; Platelet Count 280 10^3/cmm (130-400); Red Blood Count 3.41 10^6/uL (4.1-5.3); Red Cell Distribution Width 14.5 % (12.1-15.1); White Blood Count 4.9 10^3/uL (4.0-10.0)
[2020-08-21 05:42] LABS: Alanine Aminotransferase 8 U/L (0-33); Albumin Level 2.7 g/dL (3.5-5.2); Alkaline Phosphatase 52 IU/L (35-105); Anion Gap 11.3 (5-19); Aspartate Amino Transferase 11 U/L (0-32); Blood Urea Nitrogen 33 mg/dL (8-23); C Reactive Protein 7.7 mg/L (0.0-4.9); Calcium 8.5 mg/dL (8.5-10.5); Carbon Dioxide 24 mmol/L (22-29); Chloride 109 mmol/L (98-107); Globulin 2.7 g/dL (1.3-4.6); Glomerular Filtration Rate 35.1 mL/min (90-130); Glucose 129 mg/dL (65-115); Magnesium 2.1 mg/dL (1.7-2.3); Osmolality Calculated 299 mOsm/kg (285-295); Phosphorus 3.1 mg/dL (2.5-4.5); Potassium 4.3 mmol/L (3.5-5.1); Sodium 140 mmol/L (136-145); Total Bilirubin 0.2 mg/dL (0.15-1.2); Total Protein 5.4 g/dL (6.6-8.7)
[2020-08-21 05:46] LABS: NT Pro B Type Natriuretic Pept 2567 pg/mL (0-125); Procalcitonin 0.22 ng/mL (0-0.5)
[2020-08-21] MEDS: ipratropium-albuterol 3 mL Neb INHALATION (08:09)
[2020-08-21] MEDS: hyDRALAzine 50 mg Tablet 100 MG PO (08:27)
[2020-08-21] MEDS: montelukast sodium 10 mg Tablet PO (08:27)
[2020-08-21] MEDS: amitriptyline 25 mg Tablet PO (08:28)
[2020-08-21] MEDS: roflumilast 500 mcg Tablet PO (08:28)
[2020-08-21] MEDS: ropinirole 1 mg Tablet PO (08:28)
[2020-08-21] MEDS: levothyroxine 50 mcg Tablet PO (08:28)
[2020-08-21] MEDS: pantoprazole DR 40 mg Tablet PO (08:28)
[2020-08-21] MEDS: isosorbide mononitrate ER 60 mg Tablet PO (08:28)
[2020-08-21] MEDS: metoprolol succinate ER (24 HR) 50 mg Tablet PO (08:28)
[2020-08-21] MEDS: aspirin 81 mg EC Tablet PO (08:28)
[2020-08-21] MEDS: amlodipine 10 mg Tablet PO (08:28)
[2020-08-21] MEDS: cloNIDine 0.1 mg Tablet PO (08:28)
[2020-08-21] MEDS: cyclobenzaprine 10 mg Tablet PO (08:28)
[2020-08-21] MEDS: polyethylene glycol 3350 Pkt 17 gm PO (08:29)
[2020-08-21] MEDS: docusate sodium 100 mg Capsule PO (08:29)
[2020-08-21] MEDS: citalopram 20 mg Tablet 40 MG PO (08:29)
--- NOTE | 2020-08-21 09:14 | P.DS_ITS ---
Discharge Providers Date of Admission: 08/16/20 12:40 Date of Discharge: August 21, 2020 Attending Provider at Admission: Govind Heredia MD Attending Provider at Discharge: Volodymyr Duran MD Primary Care Provider: HERBERT Masters Diagnoses at Discharge Discharge Diagnosis (1) COPD (chronic obstructive pulmonary disease): Status: Chronic Qualifiers: COPD type: unspecified COPD Qualified Code(s): J44.9 - Chronic obstructive pulmonary disease, unspecified Reason for Visit Reason for Visit: CHEST PAIN / SHORT OF BREATH / COVID SYMPTOMS Hospital Course Hospital Course This is a 65-year-old female with past medical history of COPD, on chronic oxygen 2L, BiPAP dependent, hypertension, hyperlipidemia, diastolic heart failure, history of abdominal aortic aneurysm, who presents to [facility] due to shortness of breath, and cough Patient was admitted to [facility] for COPD exacerbation, Covid test was negative, received broad-spectrum antibiotic therapy, steroids, BiPAP therapy, oxygen therapy, clinically monitored. Patient had a slow clinical improvement, weaned down to 2 L, tolerating BiPAP well, her sputum cultures showed Moraxella, patient remained afebrile. Patient was ambulating without significant symptomatology, lungs clear to auscultation bilaterally on exam day of discharge. She also received inpatient diuresis with Lasix therapy, her creatinine was elevated up to 1.5 before discharge. Patient was discharged on a prednisone taper, Augmentin, with close follow-up with Dr. Beltre in 1 week. In addition I have instructed her to hold Bumex for 1 week, recheck CMP in 1 week, recheck creatinine in 1 week. In addition patient had elevated blood pressures during her hospitalization, some component related to steroids, I have increased her Norvasc to 10 mg daily. In addition I have added clonidine 0.1 twice daily. Patient should monitor blood pressures twice daily, if her systolic is greater than 150 or diastolics greater than 90, follow-up with primary care provider sooner. If she were to have any chest pain, strokelike symptoms, headache, blurry vision go to the emergency room. Physical Exam Const: COMMON NORMALS: no acute distress and patient oriented x3 HENMT: COMMON NORMALS: normocephalic HEAD & SCALP: normocephalic Neck/C-Spine: COMMON NORMALS: no JVD Resp: COMMON NORMALS: normal respiratory effort, No retractions, No use of accessory muscles and clear to auscultation bilaterally AUSCULTATION: clear to auscultation bilaterally Cardio: COMMON NORMALS: no JVD, regular rate, regular rhythm, S1 normal heart sound present and S2 normal heart sound present RATE: regular rate RHYTHM: regular rhythm HEART SOUNDS: S1 normal heart sound present and S2 normal heart sound present GI: COMMON NORMALS: Normal to inspection, nondistended, normoactive bowel sounds present, Soft to palpation, non-tender, No hepatosplenomegaly present, no masses and no bruits PALPATION: Yes Soft to palpation and Yes No hepatosplenomegaly present Extremity: COMMON NORMALS: capillary refill normal, no clubbing, cyanosis or edema, no calf tenderness and no pedal edema Neuro: COMMON NORMALS: patient oriented x3 Psych: COMMON NORMALS: mental status grossly normal Discharge Data Data Completed and Pending: Completed Studies During Hospitalization Category Date Time Status CT angio chest PE protcl [id number] Stat Cat Scan 08/16/20 10:30 Completed XR chest 1V asael ble [id number] Routine Exams 08/18/20 10:00 Completed XR chest 1V asael ble [id number] Stat Exams 08/16/20 09:50 Completed CV echo complete* [id number] Routine Ultrasound 08/19/20 15:00 Completed Pending at discharge Category Date Time Status Blood Culture Sta t Lab 08/16/20 10:00 Results Labs from last 24 hours 08/21/20 08/21/20 08/21/20 05:10 05:10 05:10 WBC 4.9 RBC 3.41 L Hgb 9.5 L Hct 29.8 L MCV 87.4 MCH 27.9 L MCHC 31.9 RDW 14.5 Plt Count 280 MPV 8.9 Neut % (Auto) 80.8 Lymph % (Auto) 14.6 Carlton % (Auto) 2.7 Eos % (Auto) 0.0 Baso % (Auto) 0.0 Neut # (Auto) 3.92 Lymph # (Auto) 0.7 L Carlton # (Auto) 0.1 L Eos # (Auto) 0.0 Baso # (Auto) 0.0 Nucleated RBC % (a uto) 0 Nucleated RBCs # 0.0 Sodium 140 Potassium 4.3 Chloride 109 H Carbon Dioxide 24 Anion Gap 11.3 BUN 33 H Creatinine 1.5 H GFR Calculation 35.1 L Glucose 129 H Calculated Osmolal ity 299 H Calcium 8.5 Phosphorus 3.1 Magnesium 2.1 Total Bilirubin 0.2 AST 11 ALT 8 Alkaline Phosphata se 52 C-Reactive Protein 7.7 H NT-Pro-B Natriuret Pep 2567 H Total Protein 5.4 L Albumin 2.7 L Globulin 2.7 Procalcitonin 0.22 Vitals: Last Vital Signs Temp 97.5 F L 08/21/20 08:00 Pulse 70 08/21/20 08:16 Resp 20 H 08/21/20 08:14 BP 179/78 08/21/20 08:28 Pulse Ox 93 08/21/20 08:14 Discharge Plan Discharge Patient Disposition: Home Condition: Stable Prescriptions: New clonidine HCl 0.1 mg Tablet 0.1 mg PO BID 30 Days Qty: 60 RF: 0 amlodipine 10 mg Tablet 10 mg PO Q24H 30 Days Qty: 30 RF: 0 prednisone 10 mg tablet See Rx Instructions .ROUTE .COMPLEX Qty: 53 RF: 0 amoxicillin-pot clavulanate [Augmentin] 875-125 mg tablet 1 tab PO BID 5 Days Qty: 10 RF: 0 Continued nitroglycerin [Nitrostat] 0.4 mg tablet, sublingual 0.4 mg SUBLINGUAL Q5M PRN (Reason: Chest Pain) 30 Days Qty: 30 RF: 5 albuterol sulfate 2.5 mg /3 mL (0.083 %) solution for nebulization 2.5 mg INHALATION QID PRN (Reason: Shortness Of Breath) 30 Days Qty: 75 RF: 5 albuterol sulfate 90 mcg/actuation Hfa Aerosol Inhaler 2 puff INHALATION 6XD PRN (Reason: Shortness Of Breath) RF: 0 fluticasone propionate [Flonase Allergy Relief] 50 mcg/actuation [place],Suspension 2 spray INTRANASAL DAILY PRN (Reason: unknown) RF: 0 citalopram 40 mg tablet 40 mg PO DAILY@0830 RF: 0 budesonide 0.5 mg/2 mL suspension for nebulization See Rx Instructions .ROUTE .COMPLEX RF: 0 montelukast 10 mg tablet 10 mg PO DAILY@0830 RF: 0 Daliresp 500 mcg tablet 500 mcg PO DAILY@0830 RF: 0 cyclobenzaprine 10 mg tablet 10 mg PO TID@0830,1400,2099 RF: 0 atorvastatin 20 mg tablet 20 mg PO DAILY@829 RF: 0 ropinirole 1 mg tablet 1 mg PO DAILY@829 RF: 0 metoprolol succinate 50 mg tablet extended release 24 hr 50 mg PO BID@ RF: 0 aspirin 81 mg tablet,delayed release (DR/EC) 81 mg PO DAILY@829 RF: 0 isosorbide mononitrate 60 mg tablet extended release 24 hr 60 mg PO DAILY@829 RF: 0 amitriptyline 25 mg tablet 25 mg PO DAILY@829 RF: 0 hydralazine 100 mg tablet 100 mg PO TID@829,1399,2099 RF: 0 Serevent Diskus 50 mcg/dose blister with device 1 inh inhalation BID@ RF: 0 omeprazole 20 mg capsule,delayed release(DR/EC) 20 mg PO DAILY@829 RF: 0 Perforomist 20 mcg/2 mL solution for nebulization 2 ml inhalation BID@ RF: 0 levothyroxine 50 mcg capsule 50 mcg PO DAILY@829 RF: 0 magnesium oxide 400 mg magnesium tablet 400 mg PO BID@ RF: 0 Yupelri 175 mcg/3 mL solution for nebulization 175 mcg inhalation DAILY@829 RF: 0 Held bumetanide 1 mg tablet 1 mg PO EVERY OTHER DAY RF: 0 Hold Instructions: Resume on 08/28/20. Discontinued amlodipine 5 mg tablet 5 mg PO DAILY@829 RF: 0 Discharge Orders: Discharge Order (Routine); Ordered 08/21/20 Ordered By: Volodymyr Duran Referrals: January Beltre MD [Physician] - 7-10 days Activity Restrictions/Additional Instructions: -Take steroid taper as prescribed, take doxycycline as prescribed -Check blood pressures one to twice daily -I will increase her Norvasc to 10 mg daily -I have added clonidine 0.1 twice daily -Follow-up with Dr. Beltre in 1 week -Creatinine on discharge 1.5, hold Bumex for 1 week -Continue to socially distance, facemask, monitor for fevers, worsening shortness of breath Discharge Attestations Time Spent in Discharge Care*: greater than 30 min Quality Metrics Clinical Quality Measures During this hospital stay, did patient experience: None Coding Level of Care Code Acute [employer] for g Fwd Exam Comprehensive Diagnoses COPD (chronic obstructive pulmonary disease) J44.9 COPD type: unspecified COPD
--- NOTE | 2020-08-21 10:20 | PC.NURSE ---
discharge instructions reviewed with patient including copd zone tool, verbalized understanding and denies further questions or concerns, belongings gathered for patient discharge.
== END 2020-08-21 12:32 | disposition home or self-care (01) | DRG 190 ==
LOC: ER 10:21 → MEDSURG 14:01
PROVIDERS: Admitting Provider Internal Medicine; Emergency Provider Family Medicine; PCP Nurse Practitioner Family; Visit Provider Family Medicine
DX: J44.1 Chronic obstructive pulmonary disease with (acute) exacerbation (principal); J96.20 Acute and chronic respiratory failure, unspecified whether with hypoxia or hypercapnia; I13.0 Hypertensive heart and chronic kidney disease with heart failure and stage 1 through stage 4 chronic kidney disease, or unspecified chronic kidney disease; I50.30 Unspecified diastolic (congestive) heart failure; N18.30 Chronic kidney disease, stage 3 unspecified; Z90.5 Acquired absence of kidney; F32.9 Major depressive disorder, single episode, unspecified; K21.9 Gastro-esophageal reflux disease without esophagitis; E78.00 Pure hypercholesterolemia, unspecified; Z87.891 Personal history of nicotine dependence; E03.9 Hypothyroidism, unspecified; I73.9 Peripheral vascular disease, unspecified; G25.81 Restless legs syndrome; I16.0 Hypertensive urgency; Z99.81 Dependence on supplemental oxygen; Z79.82 Long term (current) use of aspirin
CPT/HCPCS: 12345; 36415; 36600; 71045; 71275; 80048; 80051; 80053; 82330; 82805; 83605; 83735; 83880; 84100; 84145; 84484; 85025; 85378; 86140; 87040; 87070; 87077; 87205; 87426; 87635; 87804; 93005; 93306; 94640; 96372; 99283; J0456; J0696; J1100; J1650; J1940; J2270; J2920; J2930; J3535; J7030; J7050; J7611; Q0144; Q9967

== ENCOUNTER → 2020-09-11 11:13 | Outpatient (BNVA) | payer MEDICAID, SELFPAY | PROVIDERS: PCP Nurse Practitioner Family; Visit Provider Specialist | DX: G43.711 Chronic migraine without aura, intractable, with status migrainosus (principal); I71.4 Abdominal aortic aneurysm, without rupture; N18.30 Chronic kidney disease, stage 3 unspecified; J44.9 Chronic obstructive pulmonary disease, unspecified; Z87.891 Personal history of nicotine dependence | CPT/HCPCS: 99214 ==

== ENCOUNTER 2020-10-10 09:03 | Outpatient (CLI) | payer MEDICAID, SELFPAY ==
[2020-10-10 09:56] LABS: Basophils % 0.7 %; Hematocrit 32.3 % (37.0-47.0); Hemoglobin 10.1 g/dL (11.5-15.3); Lymphocytes # 2.2 10^3/uL (0.8-4.8); Lymphocytes % 52.6 %; Mean Corpuscular HGB Conc 31.3 g/dL (30.0-36.0); Mean Corpuscular Hemoglobin 27.6 pg (28.0-34.0); Mean Corpuscular Volume 88.3 fL (81-99); Mean Platelet Volume 9.2 fL (7.4-10.4); Monocytes # 0.3 10^3/uL (0.2-0.9); Monocytes % 7.9 %; Neutrophils % 38.6 %; Nucleated Red Blood Cells % 0 %; Platelet Count 212 10^3/cmm (130-400); Red Blood Count 3.66 10^6/uL (4.1-5.3); Red Cell Distribution Width 15.6 % (12.1-15.1); White Blood Count 4.2 10^3/uL (4.0-10.0)
[2020-10-10 10:05] LABS: Alanine Aminotransferase 8 U/L (0-33); Albumin Level 3.6 g/dL (3.5-5.2); Alkaline Phosphatase 82 IU/L (35-105); Anion Gap 12.9 (5-19); Aspartate Amino Transferase 15 U/L (0-32); Blood Urea Nitrogen 17 mg/dL (8-23); Calcium 8.8 mg/dL (8.5-10.5); Carbon Dioxide 27 mmol/L (22-29); Chloride 97 mmol/L (98-107); Glomerular Filtration Rate 50.2 mL/min (90-130); Glucose 96 mg/dL (65-115); Lactate Dehydrogenase 184 U/L (135-214); Osmolality Calculated 277 mOsm/kg (285-295); Potassium 3.9 mmol/L (3.5-5.1); Sodium 133 mmol/L (136-145); Total Bilirubin 0.2 mg/dL (0.15-1.2); Total Protein 6.6 g/dL (6.6-8.7)
[2020-10-10 10:42] LABS: Ferritin 55 ng/mL (15-150); Iron 35 ug/dL (37-145); Percent Saturation 17.5 % (20-50); Total Iron Binding Capacity 199 mcg/dl; Unsaturated Iron Binding 164 ug/dL (112-347)
== END 2020-10-10 09:04 | disposition home or self-care (01) ==
PROVIDERS: PCP Nurse Practitioner Family; Visit Provider Internal Medicine Hematology & Oncology
DX: D50.9 Iron deficiency anemia, unspecified (principal)
CPT/HCPCS: 36415; 80053; 82728; 83540; 83550; 83615; 85025

== ENCOUNTER 2020-10-13 05:43 | Outpatient (CLI) | payer MEDICAID, SELFPAY ==
--- NOTE | 2020-10-13 15:50 | ONC FU_ITS ---
Dr. Ballesteros follow up note Patient: Hali James Unit #: [id number]: [id number] Dicatated By: Ade Ballesteros M.D.Date of Visit:Oct 13, 2020 Onc Med Follow-up/Prog Note History of Present Illness: Ms. Hali James, is a 65-year-old female with a history of anemia. As per patient, first time she was diagnosed with anemia was not 2014 or , at that time she was given oral iron supplement for 5 or 6 months with that anemia was resolved until recently when her routine lab work-up done on January 30, 2020 showed white blood count 3.4, hemoglobin 9.2 g hematocrit 27.9 platelets 171,000 MCV 85 and CMP showed creatinine 2, and anemia work-up including iron studies showed iron 53, iron saturation 29.2, TIBC 181 ferritin 113, bilirubin 0.2, stool for occult blood was negative Patient denies any history of blood transfusion, patient had colonoscopy done at age 62 it was unremarkable but not sure about EGD Patient has history of hysterectomy and bilateral oophorectomy at age 22 for incompetent cervix. Patient denies any jaundice, denies any melena or hematochezia, denies any hemoptysis or hematemesis, denies any night sweats, denies any abdominal fullness, denies any peripheral lymphadenopathy. Denies any bony pain denies any weight loss. Underwent bone marrow on April 17, 2020 showed trilineage hematopoiesis, and early/evolving dysplastic process cannot be entirely excluded. Marked decrease storage iron, no ring sideroblasts seen. No significant reticulin fibrosis. Also showed several small to intermediate sized paratrabecular and none paratrabecular lymphoid aggregate which comprises only 5 to 10% of the sample. Given the rare CD5 positive monotypic B-cell detected on flow cytometry, there was a concern for involvement of B-cell neoplasm CLL is possible but mantle cell lymphoma was not entirely ruled out, Flow cytometry, showed monotypic B-cell population, approximately 1%, is positive for CD19, CD20,'s CD5 and shows surface lambda light chain restriction. CD10 is negative so consistent with rare monotypic B-cell detected, phenotypically suggestive of CLL/small lymphocytic lymphoma and FISH for MDS also negative CT scan of chest abdomen pelvis done on July 07, 2020 showed no sign of mass or lymphadenopathy in the chest, but COPD No sign of mass or lymphadenopathy or acute process in abdomen or pelvis. 3.3 cm infrarenal abdominal aortic aneurysm which has been repaired with bifurcated stent. Came for follow-up, denies any specific complaints except generalized weakness and fatigue, taking oral iron daily without any problem, no fever or chills, no weight loss but off and on night sweating, no peripheral lymphadenopathy, no abdominal fullness. No melena or hematochezia, no hemoptysis or hematemesis, no jaundice, patient had her colonoscopy and EGD done when she was 62-year-old, at that time , Some polyps were removed and they were benign, she was told to get it repeated in 5 years. Patient has family history of colon cancer in brother and polyps in both mother and father. . Medications: Albuterol Sulfate (sensor) 1 Puff(s) (of 108 (90 base) mcg/act) Aerosol Powder, Breath Activated Inhalation daily, amLODIPine Besylate 1 Tablet Oral daily, Aspirin 1 Tablet (of 81 mg) Tablet, enteric coated Oral daily, Atorvastatin Calcium 1 Tablet (of 30 mg) Oral daily, Budesonide-Formoterol Fumarate 1 Puff(s) (of 160-4.5 mcg/act) Aerosol Inhalation daily, Celecoxib 1 Capsule (of 200 mg) Oral daily, Daliresp 1 Tablet (of 500 mcg) Oral daily, FLUoxetine HCl 1 Capsule (of 20 mg) Oral daily, Furosemide 1 Tablet (of 20 mg) Oral daily, hydrALAZINE HCl 1 Tablet (of 100 mg) Oral t.i.d., Irbesartan 1 Tablet (of 300 mg) Oral daily, Isosorbide Mononitrate ER 1 Tablet (of 30 mg) Tablet SR 24 HR Oral daily, Levothyroxine Sodium 1 Tablet (of 25 mcg) Oral daily, Metoprolol Succinate ER 1 Tablet (of 100 mg) Tablet SR 24 HR Oral b.i.d., Nitroglycerin 1 (0.4 mg) Tablet, sublingual Sublingual PRN, Omeprazole 1 Capsule (of 20 mg) Capsule Delayed Release Oral daily, rOPINIRole HCl 1 Tablet (of 1 mg) Oral daily, Spiriva Respimat 1 (1.25 mcg/act) Aerosol, solution Inhalation daily Allergies: Lisinopril and Sulfa Antibiotics. Review of Systems: Review of Systems is not available for this patient. Vital Signs: Performed on Oct 13, 2020 15:20 Height - 60.00 in Weight - 84 lbs (LOW) BSA - 1.29 sq.m BMI - 16.41 (LOW) Temperature - 98.2 F (LOW) Pulse - 84 /min Respiration - 18 /min BP - 160/70 mm(hg) (HIGH) O2 Sat - 98 % Pain - 6 Fatigue - 9 Performance Status: 1 - No physically strenuous activity, but ambulatory and able to carry out light or sedentary work (e.g. office work, light house work). (ECOG) Physical Examination: ENMT - No mouth sores, no thrush, no jaundice, no cervical lymphadenopathy, Respiratory - Lungs are clear to auscultation , Cardiovascular - Regular rate and rhythm of heart, Abdomen - Soft, bowel sounds present, Extremities - No visible edema. Lab/Imaging: Test performed on Oct 10, 2020 09:12 Ferritin 55 ng/mL Iron 35 mcg/dL LDH (Total) 184 U/L Sodium 133 mmol/L Iron Binding Capacity (TIBC) 199 mcg/dl Potassium 3.9 mmol/L % Iron Saturation 17.5 % Chloride 97 mmol/L CO2 27 mmol/L UIBC 164 mcg/dL Anion Gap 12.9 BUN 17 mg/dL Creatinine 1.1 mg/dL Cr Clearance (Est) 31.6700 mL/min eGFR 50.2 mL/min Glucose 96 mg/dL Osmolality - Calculated 277 mOsm/kg Calcium 8.8 mg/dL Protein, Total 6.6 g/dL Albumin 3.6 g/dL Globulin 3.0 g/dL Bilirubin, Total 0.2 mg/dL ALT (SGPT) 8 U/L AST (SGOT) 15 U/L Alkaline Phosphatase 82 IU/L WBC 4.2 10 3/uL RBC 3.66 10 6/uL HGB 10.1 g/dL HCT 32.3 % MCV 88.3 fL MCH 27.6 pg MCHC 31.3 g/dL RDW 15.6 % Platelet Count 212 10 3/cmm MPV 9.2 fL Neutrophils 1.60 10 3/uL Lymphocytes 2.2 10 3/uL Monocytes 0.3 10 3/uL Eosinophils 0.0 10 3/uL Basophils 0.0 10 3/uL Neutrophil % 38.6 % Lymphocyte % 52.6 % Monocyte % 7.9 % Eosinophil % 0.0 % Basophils % 0.7 % NRBC % 0 % Impression: Normocytic/normochromic anemia etiology unclear could be multifactorial including but not limited to anemia of renal disease, anemia of chronic disease, considering her age and concurrent leukopenia underlying myelodysplasia cannot be ruled out. Or due to minerals deficiency like copper or zinc or hypothyroidism. Underwent bone marrow evaluation on April 17, 2020 which showed markedly decreased storage iron, no ring sideroblasts seen. No significant fibrosis. Evolving/early MDS cannot be ruled out. 1% CD 5 positive monotypic B-cell with lambda light chain restriction was seen on flow cytometry, immunohistochemistry ruled out overt B-cell malignancy so this could be due to monoclonal B-cell lymphocytosis of undetermined significance. CT scan of chest abdomen pelvis done on July 07, 2020 showed no central lymphadenopathy or organomegaly Renal insufficiency COPD Plan: Discussed with patient regarding her labs white blood count 4.2 hemoglobin 10.1 g compared to 10.5 g earlier hematocrit 32.3 platelets 212,000 MCV 88.3 ANC 1.6 compared to 2.77 previously CMP within normal limit except sodium 133, LDH is also in normal range at 184, iron saturation 17.5% compared to 31.6% previously iron 35 compared to 64 previously and ferritin gone down to 55 compared to 116 earlier Clinically, patient doing reasonably well but symptomatic due to iron deficiency anemia, we will discontinue her oral iron as her repeat iron studies shows further drop in her iron stores, either she has malabsorption or chronic GI blood loss., Considering strong family history of polyposis and history of colon cancer in the family and patient also had few polyps removed from her colon earlier, will refer her to GI for colonoscopy and EGD At this point we will consider treating her with Injectafer 750 mg IV weekly x2 and then repeat her CBC and iron studies in a month after second dose of Injectafer, all the side effect possible benefits associated with parenteral iron including headaches, allergic reaction were mentioned patient expressed full understanding. We will obtain approval from her insurance prior to the treatment Signed By: Ade Ballesteros M.D. <<Signature on File>>
== END 2020-10-13 05:44 | disposition home or self-care (01) ==
LOC: ONCMED 05:44
PROVIDERS: PCP Nurse Practitioner Family; Visit Provider Internal Medicine Hematology & Oncology
DX: D50.9 Iron deficiency anemia, unspecified (principal); Z86.010 Personal history of colon polyps; Z80.0 Family history of malignant neoplasm of digestive organs
CPT/HCPCS: 99214

== ENCOUNTER 2020-10-21 06:08 | Outpatient (CLI) | payer MEDICAID, SELFPAY ==
[2020-10-21] MEDS: sodium chloride 0.9% 250 ML IV (08:45)
[2020-10-21] MEDS: diphenhydrAMINE 50 mg/mL SDV 1mL 25 MG IVP (08:45)
[2020-10-21] MEDS: iron dextran 25 MG in SYRINGE 1 EACH 30 MG IVP (09:36)
[2020-10-21] MEDS: acetaminophen 325 mg Tablet 650 MG PO (09:36)
== END 2020-10-21 06:09 | disposition home or self-care (01) ==
LOC: ONCMED 06:14
PROVIDERS: PCP Nurse Practitioner Family; Visit Provider Internal Medicine Hematology & Oncology
DX: D50.9 Iron deficiency anemia, unspecified (principal)
CPT/HCPCS: 96365; 96366; 96367; 96375; J1100; J1200; J1750; J7030; J7050

== ENCOUNTER → 2020-10-23 13:18 | Outpatient (BNVA) | payer MEDICAID, SELFPAY | PROVIDERS: PCP Nurse Practitioner Family; Visit Provider Nurse Practitioner Family | DX: E78.00 Pure hypercholesterolemia, unspecified; R53.83 Other fatigue; E03.9 Hypothyroidism, unspecified; R07.89 Other chest pain; G43.711 Chronic migraine without aura, intractable, with status migrainosus; F32.9 Major depressive disorder, single episode, unspecified; I13.0 Hypertensive heart and chronic kidney disease with heart failure and stage 1 through stage 4 chronic kidney disease, or unspecified chronic kidney disease; K21.9 Gastro-esophageal reflux disease without esophagitis; G25.81 Restless legs syndrome; M16.11 Unilateral primary osteoarthritis, right hip; J44.1 Chronic obstructive pulmonary disease with (acute) exacerbation; J44.9 Chronic obstructive pulmonary disease, unspecified; Z99.81 Dependence on supplemental oxygen; I50.9 Heart failure, unspecified; I73.9 Peripheral vascular disease, unspecified; D64.9 Anemia, unspecified; N18.30 Chronic kidney disease, stage 3 unspecified | CPT/HCPCS: 80053; 80061; 82306; 82607; 84443; 85025 ==

== ENCOUNTER → 2020-11-05 14:27 | Outpatient (BNVA) | payer MEDICAID, SELFPAY | PROVIDERS: PCP Nurse Practitioner Family | DX: M54.5 Low back pain (principal); M43.17 Spondylolisthesis, lumbosacral region | CPT/HCPCS: 72100 ==

== ENCOUNTER 2020-11-12 11:31 | Emergency (ER) | payer MEDICAID, SELFPAY ==
[2020-11-12 11:36] VITALS: BP 161/97; PULSE 92; RESP 20; TEMP 36.8; O2SAT 99; BMI 16.4
--- NOTE | 2020-11-12 12:03 | W.ED.ARRPALP ---
HPI - Arrhythmia/Palpitations General: Chief Complaint: Arrhythmia/Palpitations Stated Complaint: RAPID HEART RATE Time Seen by Provider: 11/12/20 11:38 Source: patient, RN notes reviewed and other (Dr Mina consulted--he spoke with the stress lab) History of Present Illness: HPI narrative: 65-year-old female with a history of hypertension, hyperlipidemia, family history of coronary artery disease, former smoking for greater than 20 pack years who presents to the emergency department from the cardiology nuclear stress lab. Patient was undergoing a nuclear stress test today to evaluate for signs of clinically significant coronary artery disease. She had not yet had any rate enhancing medication such as dobutamine (per Dr Mina who called up to lab). She had gotten her resting images performed. Patient tells me that as soon as she got that medication through her IV she immediately started having shortness of breath and chest pain up to a 10 out of 10. She was noticed to have a heart rate in the 130s. She was then sent down to the emergency department. Patient still feels slightly short of breath which is not unusual for her. She does have some wheezing. She reports her chest pain is nearly completely resolved. She does have a headache. Patient has a sinus arrhythmia on EKG here. I discussed with Dr. Mina who says that this is a Dr. Culevr patient and after work-up in the emergency department to discuss with him. Associated symptoms: Deny nausea, syncope or vomiting Review of Systems General: Reports: 10 or more systems reviewed and unremarkable except in HPI and below Const: Denies: fever(s), chills or body aches Eyes: Denies: change in vision ENMT: Denies: throat pain Card: Reports: chest pain and palpitations; Denies: edema or syncope Resp: Reports: dyspnea and wheezing; Denies: hemoptysis GI: Denies: abdominal pain, nausea, vomiting or diarrhea : Denies: flank pain, dysuria or urinary frequency Musc: Denies: neck pain, back pain, extremity pain or extremity swelling Skin/Breast: Denies: rash or erythema Neuro: Reports: headache(s); Denies: numbness in extremities, weakness in extremities, lack of coordination or difficulty walking [facility] ED PFSH: Medical History AAA (abdominal aortic aneurysm) 4.1 x 4.4 x 5.7 cm 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 Anemia Atypical chest pain Chronic kidney disease CKD stage III, solitary kidney COPD (chronic obstructive pulmonary disease) Depression Endoleak post (EVAR) endovascular aneurysm repair GERD (gastroesophageal reflux disease) History of stent insertion of renal artery Hypercholesteremia Hypertension Hypertensive urgency Resolved Hypothyroidism Normal colonoscopy Osteoporosis Peripheral vascular disease Restless leg Surgical History H/O: hysterectomy History of repair of aneurysm of abdominal aorta using endovascular stent graft Hx of tonsillectomy S/P appendectomy Family History Mother CAD (coronary artery disease) Chronic kidney disease (CKD) Dementia Stroke Father CAD (coronary artery disease) Cancer Diabetes Brother CAD (coronary artery disease) Cancer Lung disease Grandfather Cancer Grandmother Diabetes Family/Other Lung disease Suicide Other Hypertension Denies family history of Clotting disorder Anesthesia complication Bleeding disorder Social History Smoking and tobacco status: former smoker Quit status (tobacco): has quit using tobacco Year quit tobacco: 2005 - PPD x 35 Years Second hand smoke exposure: No Smoking risk assessment/counseling performed?: No Alcohol intake: never Desire information about alcohol rehabilitation?: No Counseling given: No Adopted: No Caregiver/support person: No Lives independently: Yes Household members: family and children Housing: House Marital status: / Marital status details: 2005 Number of children: 12 Number of grandchildren: 4 Highest education level completed: Master's Degree Education level details: Criminal Justice service: No Current occupational status: disabled Current occupational exposures/hazards: No Pets and animals: Yes Pets & animals: cat(s), dog(s) and farm animals Farm Animals: cattle History of recent travel: No Leisure activites: reading and other Leisure activities details: watch TV Sexually active: No Current gender identity: Female Yudy/Sikhism: [employer] Special yudy needs: No Agree to transfusion: Yes Financial difficulty paying for basics: Somewhat Hard Female Reproductive History: Date of last menstrual period: 10/21/20 Para: 0 Spontaneous abortions: Yes Physical Exam Narrative: EXAM NARRATIVE: thin, barrel chested, suspect longstanding obstructive lung disease Const: COMMON NORMALS: no limitations and alert EXAM LIMITATIONS: no altered mental status GENERAL APPEARANCE: cooperative ORIENTATION/CONSCIOUSNESS: Yes awake; not confused HENMT: COMMON NORMALS: normocephalic, atraumatic, external ears normal and Normal external nose present HEAD & SCALP: normal to inspection, normocephalic and atraumatic FACE & SINUS: face symmetric NOSE: Normal external nose present EXTERNAL EAR: Yes external ears normal MOUTH: lip normal; no muffled voice Eye: COMMON NORMALS: EOMs intact bilaterally and conjunctivae normal GENERAL EYE: appearance normal, both eyes and all related structures CONJUNCTIVA: Yes conjunctivae normal Neck/C-Spine: GENERAL: Yes normal visual inspection and Yes trachea midline Chest: COMMONS NORMALS: normal inspection of the chest Resp: EFFORT & INSPECTION: Yes symmetric chest movement, Yes tachypneic, No respiratory distress, Yes uses accessory muscles and Yes audible wheezes AUSCULTATION: diminished lung sounds Cardio: COMMON NORMALS: regular rate RATE: regular rate RHYTHM: abnormal rhythm PERIPHERAL PULSES: radial pulses present GI: COMMON NORMALS: Soft to palpation INSPECTION: Yes normal to inspection PALPATION: Yes Soft to palpation, No Tenderness to palpation present (GI) and No Guarding due to palpation present (GI) Back/Pelvis: COMMON NORMALS: thoraco-lumbar ROM normal Extremity: COMMON NORMALS: normal to inspection GENERAL: Yes normal exam except as noted Neuro: COMMON NORMALS: moves all extremities, no focal motor deficits and no sensory deficits noted SENSORIUM/ORIENTATION: Yes alert Psych: COMMON NORMALS: mental status grossly normal, Normal thought process present, cooperative, normal affect and speech normal SPEECH: Yes normal speech THOUGHT PROCESS: Normal thought process present Skin: COMMON NORMALS: no rashes or lesions noted, turgor normal and no jaundice GENERAL SKIN EXAM: no rashes or lesions noted and turgor normal Course Vital Signs: Vital signs: Vital Signs Temperature 98.2 F 11/12/20 11:36 Pulse Rate 87 11/12/20 12:54 Respiratory Rate 20 H 11/12/20 12:54 Blood Pressure 181/88 11/12/20 12:54 Pulse Oximetry 98 11/12/20 12:54 MDM - Arrhythmia/Palpitations MDM Narrative: Medical decision making narrative: 65-year-old female presents with onset of palpitations and tachycardia with shortness of breath and chest pain during a nuclear stress test. I talked with the inflatable buildings laminator who called the lab. He was told that she had not gotten any rate enhancing medications. On the other hand, the patient tells me that right after the injection and her IV she began to have shortness of breath and chest pain. The patient is in a sinus rhythm here with sinus arrhythmia. She has no concerning ST segment elevations and some generalized concave repolarization changes. Her chest pain is nearly resolved she simply has a headache and ongoing shortness of breath. She has diminished breath sounds with wheezes. I will give her DuoNeb, obtain troponin, provide aspirin, keep the patient on telemetry, and ultimately consult with Dr. Culver, her primary inflatable buildings laminator. 1300: Dr Culver consulted. Trop 9 CXR shows expected hyperinflation. Patient's pain/dyspnea resolved. Pt did have the radionucleotide tracer but not dobutamine--suspect reactoin to the tracer. Dr Culver is ok with her going home if she feels well and he will schedule a different study for her to evaluate possible CAD. Pt in agreement with plan. Resume metoprolol per Dr Culver. Dr Culver came to see patient in ED. Lab Data: Attestation: I reviewed the patient's lab results. Labs: Lab Results 11/12/20 Range/Units 12:05 Troponin T Baselin e 9 (0-10) ng/L EKG Data^: EKG 1: Attestation: I personally reviewed and interpreted this EKG as follows: Other EKG comments: Chest X-Ray 11/12/20 12:08 Impression: Atherosclerosis and hyperinflation. Patient has a sinus rhythm with a sinus arrhythmia, ventricular rate 86, axis within normal limits, probable mild right ventricular hypertrophy, pulmonary T wave pattern, QTC within normal limits, there is fairly diffuse concave ST changes which could represent depressions or repolarization changes. No hyperacute T waves. No ectopy. Discharge Plan Discharge Patient Disposition: Home Clinical Impression: Adverse reaction to drug in therapeutic use, Tachyarrhythmia, Acute bronchospasm Condition: Stable Prescriptions: No Action albuterol sulfate 2.5 mg /3 mL (0.083 %) solution for nebulization 2.5 mg INHALATION QID PRN (Reason: Shortness Of Breath) 30 Days Qty: 75 RF: 5 budesonide-formoterol [Symbicort] 160-4.5 mcg/actuation HFA aerosol inhaler 2 puff inhalation BID RF: 0 epinephrine 0.3 mg/0.3 mL auto-injector 0.3 mg IM Q10M PRNRF: 0 amitriptyline 25 mg tablet 25 mg PO DAILY@0830 30 Days Qty: 30 RF: 0 aspirin 81 mg tablet,delayed release (DR/EC) 81 mg PO DAILY@08 30 Days Qty: 30 RF: 5 citalopram 40 mg tablet 40 mg PO DAILY@08 30 Days Qty: 30 RF: 0 isosorbide mononitrate 60 mg tablet extended release 24 hr 60 mg PO DAILY@08 30 Days Qty: 30 RF: 5 levothyroxine 50 mcg capsule 50 mcg PO DAILY@08 30 Days Qty: 30 RF: 0 magnesium oxide 400 mg magnesium tablet 400 mg PO BID@0830,2099 30 Days Qty: 30 RF: 5 omeprazole 20 mg capsule,delayed release(DR/EC) 20 mg PO DAILY@08 30 Days Qty: 30 RF: 5 ropinirole 1 mg tablet 1 mg PO DAILY@08 30 Days Qty: 30 RF: 5 nitroglycerin [Nitrostat] 0.4 mg tablet, sublingual 0.4 mg SUBLINGUAL Q5M PRN (Reason: Chest Pain) 30 Days Qty: 30 RF: 5 acetaminophen [Tylenol Arthritis Pain] 650 mg tablet extended release 650 mg PO Q12H PRN (Reason: pain) 30 Days Qty: 30 RF: 5 doxycycline hyclate 100 mg capsule 100 mg PO BID 7 Days Qty: 14 RF: 0 prednisone 20 mg tablet 20 mg PO BID 10 Days Qty: 20 RF: 0 metoprolol succinate 50 mg tablet extended release 24 hr 50 mg PO BID@0830,2099 30 Days Qty: 60 RF: 5 hydralazine 100 mg tablet 100 mg PO TID@0830,1400,2100 30 Days Qty: 90 RF: 5 Spiriva with HandiHaler 18 mcg capsule, w/inhalation device 1 cap inhalation DAILY Qty: 30 RF: 3 Daliresp 500 mcg tablet 500 mcg PO DAILY@0830 Qty: 30 RF: 3 clonidine HCl 0.1 mg tablet 0.1 mg PO BID Qty: 60 RF: 5 albuterol sulfate 90 mcg/actuation Hfa Aerosol Inhaler 2 puff INHALATION 6XD PRN (Reason: Shortness Of Breath) RF: 0 atorvastatin 20 mg tablet 30 mg PO DAILY@0800 RF: 0 fluticasone propionate [Flonase Allergy Relief] 50 mcg/actuation [place],Suspension 2 spray INTRANASAL DAILY PRN (Reason: unknown) RF: 0 cyclobenzaprine 10 mg tablet 10 mg PO TID@0830,1400,2100 RF: 0 Serevent Diskus 50 mcg/dose blister with device 1 inh inhalation BID@0830,2100 RF: 0 Discharge Orders: Discharge ED (Routine); Ordered 11/12/20 Ordered By: Finesse White Referrals: Guillermo Culver MD [Physician] - 4-7 days Discharge Diet: Usual diet Discharge Activity: Resume usual activity Patient Instructions: Chest Pain (ED), Dyspnea (ED), Opioid Safety Coding Level of Care Code ED Type Caster for Chg Fwd Exam Comprehensive
[2020-11-12 12:08] VITALS: BP 161/97; PULSE 84; RESP 17; O2SAT 97
--- NOTE | 2020-11-12 12:08 | XR_ITS ---
WS: [id number] Portable AP upright chest, 11/12/2020 Clinical Data: dyspnea Comparison: Portable chest, 08/18/2020. Findings: No nodules, masses or effusions are seen. The heart is normal. The pulmonary vascularity is not increased. No pneumonia or pneumothorax is seen. The diaphragms are flattened. There is minimal calcification at the aortic arch. There are monitor leads on the chest wall. There is an aortic graft in the descending aorta and abdominal aorta. XR/XR chest 1V portable [id number] Impression: Atherosclerosis and hyperinflation.
[2020-11-12] MEDS: nitroglycerin 0.4 mg sublingual Tablet SUBLINGUAL (12:23)
[2020-11-12] MEDS: acetaminophen 500 mg Tablet PO (12:23)
[2020-11-12] MEDS: morphine 4 mg/mL SDV 1 mL IVP (12:24)
[2020-11-12 12:33] LABS: Troponin(5th) Baseline 9 ng/L (0-10)
[2020-11-12 12:54] VITALS: BP 181/88; PULSE 87; RESP 20; O2SAT 98
[2020-11-12 13:18] VITALS: BP 181/88; PULSE 90; RESP 18; O2SAT 98
== END 2020-11-12 13:18 | disposition home or self-care (01) ==
PROVIDERS: Emergency Provider Emergency Medicine
DX: R00.0 Tachycardia, unspecified (principal); J98.01 Acute bronchospasm; T50.905A Adverse effect of unspecified drugs, medicaments and biological substances, initial encounter; Z79.82 Long term (current) use of aspirin; I12.9 Hypertensive chronic kidney disease with stage 1 through stage 4 chronic kidney disease, or unspecified chronic kidney disease; N18.30 Chronic kidney disease, stage 3 unspecified; J44.9 Chronic obstructive pulmonary disease, unspecified; Z87.891 Personal history of nicotine dependence
CPT/HCPCS: 71045; 84484; 96374; 99283; J2270

== ENCOUNTER → 2020-11-18 14:23 | Outpatient (BNVA) | payer MEDICAID, SELFPAY | PROVIDERS: PCP Nurse Practitioner; Referring Provider Nurse Practitioner; Visit Provider Orthopaedic Surgery | DX: M43.16 Spondylolisthesis, lumbar region (principal); M46.90 Unspecified inflammatory spondylopathy, site unspecified; M54.2 Cervicalgia | CPT/HCPCS: 72050; 72120 ==

== ENCOUNTER 2020-11-25 12:02 | Inpatient (IN) | payer MEDICAID, SELFPAY ==
[2020-11-25] VITALS (12 sets, daily range): BP systolic 115–180; BP diastolic 68–87; PULSE 69–87; RESP 12–18; TEMP 36.4–37.9; O2SAT 96–100; BMI 16.9
--- NOTE | 2020-11-25 | CT_ITS ---
WS: [id number] CTA ABDOMEN TECHNIQUE: Noncontrast plus contrast enhanced CTA of the abdominal aorta with coronal and sagittal re formatted images and additional MIP Images. CLINICAL INFORMATION: SOB/ PAIN/ SIDE PAIN / HX OF AAA COMPARISON: July 07, 2020 DLP: 1068.[address] scans at [facility] use at least one of these dose optimization techniques: automat ed exposure control; mA and/or kV adjustment per patient size (includes targeted exams where dose is matched to clinical indication); or iterative reconstruction. FINDINGS: Previously described migrated aortic endograft with biiliac component is unchanged from prior examina tions. Bilateral iliac artery stent. Aneurysm sac measures approximately 2.9 x 3.1 cm unchanged. Circ umferential mural thrombus is stable in appearance. Diffuse fatty infiltration the liver. Normal gallbladder. Left renal cortical atrophy. 10 mm upper po le left renal lesion appears slightly increased in size compared to the prior examinations suspicious for renal neoplasm. Adrenal glands are normal. No hydronephrosis. Fatty atrophy of the pancreas. Left lower lobe wedge-shaped infiltrate is new from previous. Disc space narrowing worse at L4-L5 and L5-S1. Grade 1 anterolisthesis L5 on S1. CT/CT angio abdomen pelvis [id number] IMPRESSION: 1. Previously described migrated endovascular aortic graft is unchanged in sole earance since the prior examinations. [place] aneurysm is unchanged in size. 2. Bilateral iliac artery stent grafts are patent. 3. Left renal atrophy. Indeterminate left upper pole renal lesion measuring 10 mm. Renal neoplasm not excluded. This appears slightly increased in size byron red to the prior examinations. This can be further evaluated with ultrasound. 4. No hydronephrosis in right kidney. 5. Left lower lobe infiltrate new from previous described on the chest CT
--- NOTE | 2020-11-25 12:12 | XRR_ITS ---
PROCEDURE INFORMATION: Exam: XR Chest Exam date and time: 11/25/2020 12:15 PM Age: 65 years old Clinical indication: Shortness of breath; Additional info: SOB TECHNIQUE: Imaging protocol: XR of the chest. Views: 1 view. COMPARISON: CR XR chest 1V portable [id number] 11/12/2020 12:11 PM FINDINGS: Lungs: Unremarkable. No consolidation. Pleural spaces: Unremarkable. No pleural effusion. No pneumothorax. Heart/Mediastinum: Unremarkable. No cardiomegaly. Bones/joints: Distal thoracic and abdominal aortic/aortoiliac stent partially seen. XR/XR chest 1V portable [id number] IMPRESSION: No acute findings.
--- NOTE | 2020-11-25 12:13 | ED_ITS ---
HPI - Fever General: Chief Complaint: Fever Stated Complaint: FEVER/ DEHYDRATED/ SOB/ NAUSEA Time Seen by Provider: 11/25/20 12:03 Source: patient Mode of arrival: EMS Limitations: no limitations History of Present Illness: HPI Narrative: Patient is a 65-year-old female with a history of hypertension, COPD, several episodes of pneumonia, who presents to the emergency department with complaints of fever, cough, shortness of breath, left posterior chest pain. Symptoms have been ongoing for about 3 days but gradually worsened and today she was unable to get out of bed. She complains also of a headache. Shortness of breath is worse on deep inspiration. No prior history of PE. MD elicited complaint: fever and malaise Onset (ago): day(s) (3) Exacerbating factors: nothing Relieving factors: nothing Associated symptoms: Reports flank pain, chills, chest pain, cough, headache(s), myalgias, nausea and short of breath; Deny abdominal pain, confusion, diarrhea, dysuria, extremity pain, nasal congestion, night sweats, rash, rhinorrhea, sinus pain, stiffness, sore throat, vaginal discharge, vomiting or weight loss Treatments prior to arrival fever: other (zofran, IVF) Review of Systems General: Reports: 10 or more systems reviewed and unremarkable except in HPI and below Const: Reports: chills; Denies: night sweats ENMT: Denies: nasal congestion or sinus pain Card: Reports: chest pain GI: Reports: nausea; Denies: abdominal pain, vomiting or diarrhea : Reports: flank pain; Denies: dysuria or vaginal discharge Musc: Denies: extremity pain Neuro: Reports: headache(s); Denies: confusion [facility] ED PFSH: Medical History (Updated 11/25/20 @ 21:17 by Jojo Melo MD, [facility] AAA (abdominal aortic aneurysm) 4.1 x 4.4 x 5.7 cm 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 Anemia Atypical chest pain Brain aneurysm Chronic kidney disease CKD stage III, solitary kidney Chronic migraine without aura, intractable, with status migrainosus COPD (chronic obstructive pulmonary disease) Depression Endoleak post (EVAR) endovascular aneurysm repair GERD (gastroesophageal reflux disease) History of stent insertion of renal artery Hypercholesteremia Hypertension Hypertensive urgency Resolved Hypothyroidism Inguinal swelling Normal colonoscopy Osteoporosis Peripheral vascular disease Restless leg Surgical History (Updated 11/25/20 @ 18:27 by Mitch Smith MD) H/O: hysterectomy History of renal stent Herculink stent History of repair of aneurysm of abdominal aorta using endovascular stent graft Hx of tonsillectomy S/P appendectomy Family History Mother CAD (coronary artery disease) Chronic kidney disease (CKD) Dementia Stroke Father CAD (coronary artery disease) Cancer Diabetes Brother CAD (coronary artery disease) Cancer Lung disease Grandfather Cancer Grandmother Diabetes Family/Other Lung disease Suicide Other Hypertension Denies family history of Clotting disorder Anesthesia complication Bleeding disorder Social History Smoking and tobacco status: former smoker Quit status (tobacco): has quit using tobacco Year quit tobacco: 2005 - PPD x 35 Years Second hand smoke exposure: No Smoking risk assessment/counseling performed?: No Alcohol intake: never Desire information about alcohol rehabilitation?: No Counseling given: No Adopted: No Caregiver/support person: No Lives independently: Yes Household members: family and children Housing: House Marital status: / Marital status details: 2006 Number of children: 12 Number of grandchildren: 4 Highest education level completed: Master's Degree Education level details: Criminal Justice service: No Current occupational status: disabled Current occupational exposures/hazards: No Pets and animals: Yes Pets & animals: cat(s), dog(s) and farm animals Farm Animals: cattle History of recent travel: No Leisure activites: reading and other Leisure activities details: watch TV Sexually active: No Current gender identity: Female Yudy/Quaker: [employer] Special yudy needs: No Agree to transfusion: Yes Financial difficulty paying for basics: Somewhat Hard Female Reproductive History: Date of last menstrual period: 10/21/20 Para: 0 Spontaneous abortions: Yes Physical Exam Const: COMMON NORMALS: no acute distress, average body habitus, patient oriented x3, no limitations, healthy appearing, alert and well nourished HENMT: COMMON NORMALS: normocephalic, atraumatic and moist oral mucous membranes HEAD & SCALP: normocephalic and atraumatic Neck/C-Spine: COMMON NORMALS: no meningeal signs and no JVD Chest: COMMONS NORMALS: normal inspection of the chest and normal palpation of entire chest wall CHEST: Yes tenderness (left posterior) Resp: COMMON NORMALS: normal respiratory effort, No retractions, No use of accessory muscles and percussion normal AUSCULTATION: rales (bibasilar, greater on the left) PERCUSSION: percussion normal Cardio: COMMON NORMALS: no JVD, regular rate, regular rhythm, S1 normal heart sound present, S2 normal heart sound present, No gallops present (Cardio), No clicks present (Cardio), No murmurs present (Cardio), No rub (Cardio) and Peripheral pulses 2+ throughout RATE: regular rate RHYTHM: regular rhythm HEART SOUNDS: S1 normal heart sound present and S2 normal heart sound present PERIPHERAL PULSES: Peripheral pulses 2+ throughout GI: COMMON NORMALS: Normal to inspection, nondistended, normoactive bowel sounds present, Soft to palpation, non-tender, No hepatosplenomegaly present, no masses and no bruits PALPATION: Yes Soft to palpation and Yes No hepatosplenomegaly present Extremity: COMMON NORMALS: normal to inspection, full ROM, capillary refill normal, no calf tenderness and no pedal edema Neuro: COMMON NORMALS: patient oriented x3 SENSORIUM/ORIENTATION: Yes alert MENINGEAL SIGNS: Yes no meningeal signs Course Reevaluation(s): Reevaluation #1: Discussed her lab and imaging findings with her. Negative PE on CTA, however she has a new left lower lobe pneumonia which is likely responsible for her symptoms. Discussed her treatment options with her-outpatient versus inpatient therapy. Because she feels so weak and was unable to get out of bed unassisted she would prefer to be admitted to the hospital. We will call the hospitalist and discussed. She voiced understanding and is in agreement with the plan. Time: 15:00 Consultations: Consultation #1: Discussed the patient with Dr. Romero, hospitalist and he kindly accepted the patient to his service. Time: 15:07 Vital Signs: Vital signs: Vital Signs Temperature 97.6 F 11/25/20 19:15 Pulse Rate 77 11/25/20 20:40 Respiratory Rate 17 11/25/20 20:40 Blood Pressure 180/87 11/25/20 19:15 Pulse Oximetry 96 11/25/20 20:40 MDM - Fever MDM Narrative: Medical decision making narrative: 65-year-old female patient with a history of COPD and repeated pneumonia, presents to the emergency department with left posterior chest pain, shortness of breath, fever, extreme weakness. Evaluation in the emergency department shows she has a left lower lobe pneumonia. She is admitted to the hospitalist service for further evaluation and management. Medical Records: Attestation: I reviewed the patient's medical records. Lab Data: Attestation: I reviewed the patient's lab results. Labs: Lab Results 11/25/20 11/25/20 11/25/20 Range/Units 12:23 12:23 12:23 WBC 7.0 (4.0-10.0) 10^3/ uL RBC 3.85 L (4.1-5.3) 10^6/u L Hgb 11.0 L (11.5-15.3) g/dL Hct 34.4 L (37.0-47.0) % MCV 89.4 (81-99) fL MCH 28.6 (28.0-34.0) pg MCHC 32.0 (30.0-36.0) g/dL RDW 16.9 H (12.1-15.1) % Plt Count 176 (130-400) 10^3/c mm MPV 9.6 (7.4-10.4) fL Neut % (Auto) 72.4 % Lymph % (Auto) 20.5 % Jackson % (Auto) 6.5 % Eos % (Auto) 0.0 % Baso % (Auto) 0.3 % Neut # (Auto) 5.05 (1.8-7.7) 10^3/u L Lymph # (Auto) 1.4 (0.8-4.8) 10^3/u L Jackson # (Auto) 0.5 (0.2-0.9) 10^3/u L Eos # (Auto) 0.0 (0.0-0.8) 10^3/u L Baso # (Auto) 0.0 (0.0-0.1) 10^3/u L Nucleated RBC % (a uto) 0 % Nucleated RBCs # 0.0 /100WBC D-Dimer 2.57 H (0-0.59) ug/mIFE U Sodium 131 L (136-145) mmol/L Potassium 4.6 (3.5-5.1) mmol/L Chloride 99 (98-107) mmol/L Carbon Dioxide 22 (22-29) mmol/L Anion Gap 14.6 (5-19) BUN 11 (8-23) mg/dL Creatinine 1.2 H (0.5-0.9) mg/dL GFR Calculation 45.4 L (90-130) mL/min Glucose 94 (65-115) mg/dL Calculated Osmolal ity 271 L (285-295) mOsm/k g Lactate (0.5-2.2) mmol/L Calcium 8.2 L (8.5-10.5) mg/dL Iron (37-145) ug/dL TIBC mcg/dl % Saturation (20-50) % Unsat Iron Binding (112-347) ug/dL Total Bilirubin 0.2 (0.15-1.2) mg/dL AST 14 (0-32) U/L ALT 6 (0-33) U/L Alkaline Phosphata se 75 (35-105) IU/L Troponin T Baselin e (0-10) ng/L Troponin T 120 [place] (0-10) ng/L Delta Troponin T (0-10) ABS# C-Reactive Protein 83.5 H (0.0-4.9) mg/L NT-Pro-B Natriuret Pep (0-125) pg/mL Total Protein 6.2 L (6.6-8.7) g/dL Albumin 4.0 (3.5-5.2) g/dL Globulin 2.2 (1.3-4.6) g/dL Procalcitonin (0-0.5) ng/mL 11/25/20 11/25/20 11/25/20 Range/Units 12:23 12:23 12:23 WBC (4.0-10.0) 10^3/ uL RBC (4.1-5.3) 10^6/u L Hgb (11.5-15.3) g/dL Hct (37.0-47.0) % MCV (81-99) fL MCH (28.0-34.0) pg MCHC (30.0-36.0) g/dL RDW (12.1-15.1) % Plt Count (130-400) 10^3/c mm MPV (7.4-10.4) fL Neut % (Auto) % Lymph % (Auto) % Jackson % (Auto) % Eos % (Auto) % Baso % (Auto) % Neut # (Auto) (1.8-7.7) 10^3/u L Lymph # (Auto) (0.8-4.8) 10^3/u L Jackson # (Auto) (0.2-0.9) 10^3/u L Eos # (Auto) (0.0-0.8) 10^3/u L Baso # (Auto) (0.0-0.1) 10^3/u L Nucleated RBC % (a uto) % Nucleated RBCs # /100WBC D-Dimer (0-0.59) ug/mIFE U Sodium (136-145) mmol/L Potassium (3.5-5.1) mmol/L Chloride (98-107) mmol/L Carbon Dioxide (22-29) mmol/L Anion Gap (5-19) BUN (8-23) mg/dL Creatinine (0.5-0.9) mg/dL GFR Calculation (90-130) mL/min Glucose (65-115) mg/dL Calculated Osmolal ity (285-295) mOsm/k g Lactate 0.7 (0.5-2.2) mmol/L Calcium (8.5-10.5) mg/dL Iron (37-145) ug/dL TIBC mcg/dl % Saturation (20-50) % Unsat Iron Binding (112-347) ug/dL Total Bilirubin (0.15-1.2) mg/dL AST (0-32) U/L ALT (0-33) U/L Alkaline Phosphata se (35-105) IU/L Troponin T Baselin e 12 H (0-10) ng/L Troponin T 120 [place] (0-10) ng/L Delta Troponin T (0-10) ABS# C-Reactive Protein (0.0-4.9) mg/L NT-Pro-B Natriuret Pep (0-125) pg/mL Total Protein (6.6-8.7) g/dL Albumin (3.5-5.2) g/dL Globulin (1.3-4.6) g/dL Procalcitonin 0.11 (0-0.5) ng/mL 11/25/20 11/25/20 Range/Units 12:23 14:24 WBC (4.0-10.0) 10^3/ uL RBC (4.1-5.3) 10^6/u L Hgb (11.5-15.3) g/dL Hct (37.0-47.0) % MCV (81-99) fL MCH (28.0-34.0) pg MCHC (30.0-36.0) g/dL RDW (12.1-15.1) % Plt Count (130-400) 10^3/c mm MPV (7.4-10.4) fL Neut % (Auto) % Lymph % (Auto) % Jackson % (Auto) % Eos % (Auto) % Baso % (Auto) % Neut # (Auto) (1.8-7.7) 10^3/u L Lymph # (Auto) (0.8-4.8) 10^3/u L Jackson # (Auto) (0.2-0.9) 10^3/u L Eos # (Auto) (0.0-0.8) 10^3/u L Baso # (Auto) (0.0-0.1) 10^3/u L Nucleated RBC % (a uto) % Nucleated RBCs # /100WBC D-Dimer (0-0.59) ug/mIFE U Sodium (136-145) mmol/L Potassium (3.5-5.1) mmol/L Chloride (98-107) mmol/L Carbon Dioxide (22-29) mmol/L Anion Gap (5-19) BUN (8-23) mg/dL Creatinine (0.5-0.9) mg/dL GFR Calculation (90-130) mL/min Glucose (65-115) mg/dL Calculated Osmolal ity (285-295) mOsm/k g Lactate (0.5-2.2) mmol/L Calcium (8.5-10.5) mg/dL Iron 17 L (37-145) ug/dL TIBC 139 mcg/dl % Saturation 12.2 L (20-50) % Unsat Iron Binding 122 (112-347) ug/dL Total Bilirubin (0.15-1.2) mg/dL AST (0-32) U/L ALT (0-33) U/L Alkaline Phosphata se (35-105) IU/L Troponin T Baselin e (0-10) ng/L Troponin T 120 [place] 12.45 H (0-10) ng/L Delta Troponin T 0.45 (0-10) ABS# C-Reactive Protein (0.0-4.9) mg/L NT-Pro-B Natriuret Pep 610 H (0-125) pg/mL Total Protein (6.6-8.7) g/dL Albumin (3.5-5.2) g/dL Globulin (1.3-4.6) g/dL Procalcitonin (0-0.5) ng/mL Imaging Data^: CTA Chest: Attestation: I personally reviewed and interpreted this imaging study as follows: Radiologist's impression: [address] [id number] Scan ReportSigned Patient: Hali James #: [id number]: 1955cct#:[id number]/Sex: 65 / FADM Date: 11/25/20Loc: ERRoom/Bed:Attending Dr: Ordering Provider/Ordering MD: Jojo Melo MD, [facility] [place] Date of Service: 11/25/20 Procedure(s): CT angio chest PE protcl [id number] Accession Number(s): [id number] Report Number: [id number] WS: [id number] CTA OF THE CHEST WITH PULMONARY EMBOLISM PROTOCOL TECHNIQUE: High-resolution contrast enhanced CTA of the chest with coronal and sagittal reformatted images with pulmonary embolism protocol. MIP images are also reviewed. CLINICAL INFORMATION: SOB, pain on inspiration, left chest pain COMPARISON: CTA December 28, 2020 DLP: 331.[address] scans at [facility] use at least one of these dose optimization techniques: automated exposure control; mA and/or kV adjustment per patient size (includes targeted exams where dose is matched to clinical indication); or iterative reconstruction. FINDINGS: Proximal main pulmonary arteries are normal. Normal segmental and subsegmental pulmonary arteries. No evidence of pulmonary embolus. Normal caliber thoracic aorta. Mild aortic calcification. Aortic endograft in the lower thoracic and abdominal aorta partially visualized. Left renal cortical atrophy. Adrenal glands are normal. No mediastinal or hilar lymphadenopathy. No axillary lymphadenopathy. Moderate chronic emphysematous changes. Wedge-shaped consolidated opacity in the left lower lobe suspicious for pneumonia. Recommend follow-up to resolution. This measures approximately 2.9 x 2.3 CM. This is new since August 16, 2020 CT/CT angio chest PE protcl [id number] IMPRESSION: 1. No evidence for pulmonary embolus. 2. Wedge-shaped infiltrate in the left lower lobe laterally is new from August 2020 suspicious for pneumonia. Recommend follow-up to resolution to exclude neoplasm. Associated pleural thickening. 3. Moderate chronic emphysematous changes. 4. No other significant changes from previous. Dictated By:Yang Patrick MDSigned By:Yang Patrick MDSigned Date/Time:11/25/20 1432DD/ 1400 CXR: Attestation: I personally reviewed and interpreted this imaging study as follows: Radiologist's impression: [address] [id number] ReportSigned Patient: Hali James #: [id number]: 1955cct#:[id number]/Sex: 65 / FADM Date: 11/25/20Loc: ERRoom/Bed:Attending Dr: Ordering Provider/Ordering MD: Jojo Melo MD, [facility] [place] Date of Service: 11/25/20 Procedure(s): XR chest 1V portable [id number] Accession Number(s): [id number] Report Number: [id number] PROCEDURE INFORMATION: Exam: XR Chest Exam date and time: 11/25/2020 12:15 PM Age: 65 years old Clinical indication: Shortness of breath; Additional info: SOB TECHNIQUE: Imaging protocol: XR of the chest. Views: 1 view. COMPARISON: CR XR chest 1V portable [id number] 11/12/2020 12:11 PM FINDINGS: Lungs: Unremarkable. No consolidation. Pleural spaces: Unremarkable. No pleural effusion. No pneumothorax. Heart/Mediastinum: Unremarkable. No cardiomegaly. Bones/joints: Distal thoracic and abdominal aortic/aortoiliac stent partially seen. XR/XR chest 1V portable [id number] IMPRESSION: No acute findings. Dictated By:Chilo Seo MDSigned By:Chilo Seo MDSigned Date/Time:11/25/20 125 5DD/ [address]: Attestation: I personally reviewed and interpreted this imaging study as follows: Radiologist's impression: [address] [id number] Scan ReportSigned Patient: Hali James #: [id number]: [id number]#:[id number]/Sex: 65 / FADM Date: 11/25/20Loc: ERRoom/Bed:Attending Dr: Ordering Provider/Ordering MD: Jojo Melo MD, [facility] [place] Date of Service: 11/25/20 Procedure(s): CT angio abdomen pelvis 11176 Accession Number(s): [id number] Report Number: [id number] WS: [id number] CTA ABDOMEN TECHNIQUE: Noncontrast plus contrast enhanced CTA of the abdominal aorta with coronal and sagittal reformatted images and additional MIP Images. CLINICAL INFORMATION: SOB/ PAIN/ SIDE PAIN / HX OF AAA COMPARISON: July 07, 2020 DLP: 1068.[address] scans at [facility] use at least one of these dose optimization techniques: automated exposure control; mA and/or kV adjustment per patient size (includes targeted exams where dose is matched to clinical indication); or iterative reconstruction. FINDINGS: Previously described migrated aortic endograft with biiliac component is unchanged from prior examinations. Bilateral iliac artery stent. Aneurysm sac measures approximately 2.9 x 3.1 cm unchanged. Circumferential mural thrombus is stable in appearance. Diffuse fatty infiltration the liver. Normal gallbladder. Left renal cortical atrophy. 10 mm upper pole left renal lesion appears slightly increased in size compared to the prior examinations suspicious for renal neoplasm. Adrenal glands are normal. No hydronephrosis. Fatty atrophy of the pancreas. Left lower lobe wedge-shaped infiltrate is new from previous. Disc space narrowing worse at L4-L5 and L5-S1. Grade 1 anterolisthesis L5 on S1. CT/CT angio abdomen pelvis 33552 IMPRESSION: 1. Previously described migrated endovascular aortic graft is unchanged in appearance since the prior examinations. [place] aneurysm is unchanged in size. 2. Bilateral iliac artery stent grafts are patent. 3. Left renal atrophy. Indeterminate left upper pole renal lesion measuring 10 mm. Renal neoplasm not excluded. This appears slightly increased in size compared to the prior examinations. This can be further evaluated with ultrasoun d. 4. No hydronephrosis in right kidney. 5. Left lower lobe infiltrate new from previous described on the chest CT Dictated By:Yang Patrick MDSigned By:Yang Patrick MDSigned Date/Time: 1450DD/ 1434 EKG Data^: EKG 1: Attestation: I personally reviewed and interpreted this EKG as follows: EKG interpretation date: 11/25/20 EKG interpretation time: 12:44 Prior EKG tracings: not available for review Interpretation: Sinus rhythm. Heart rate 85 bpm. Normal axis. No ST changes. Normal EKG. EKG 2: Attestation: I personally reviewed and interpreted this EKG as follows: EKG interpretation date: 11/25/20 EKG interpretation time: 14:51 Prior EKG tracings: available for review Interpretation: Sinus rhythm. Heart rate [address] changes. Unchanged from earlier today. Discharge Plan Discharge Patient Disposition: Admitted As Inpatient Admit Provider: Mitch Smith Clinical Impression: Pneumonia Condition: Stable Coding Level of Care Code ED Driver Sales for Chg Fwd Exam Comprehensive
--- NOTE | 2020-11-25 12:20 | ECG_ITS ---
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 Measurements Intervals [place] Rate: 85 P: 76 NM: 139 QRS: 74 QRSD: 73 T: 72 QT: 355 QTc: 422 Interpretive Statements SINUS RHYTHM Compared to ECG 08/16/2020 12:02:06 Atrial-paced complex(es) or rhythm no longer present Electronically Signed On 11-26-2020 6:50:48 CDT by Nakita Hernandez M.D. [id number]
[2020-11-25 12:46] LABS: Basophils % 0.3 %; Hematocrit 34.4 % (37.0-47.0); Lymphocytes # 1.4 10^3/uL (0.8-4.8); Lymphocytes % 20.5 %; Mean Corpuscular Hemoglobin 28.6 pg (28.0-34.0); Mean Corpuscular Volume 89.4 fL (81-99); Mean Platelet Volume 9.6 fL (7.4-10.4); Monocytes # 0.5 10^3/uL (0.2-0.9); Monocytes % 6.5 %; Neutrophils # 5.05 10^3/uL (1.8-7.7); Neutrophils % 72.4 %; Nucleated Red Blood Cells % 0 %; Platelet Count 176 10^3/cmm (130-400); Red Blood Count 3.85 10^6/uL (4.1-5.3); Red Cell Distribution Width 16.9 % (12.1-15.1)
[2020-11-25] MEDS: acetaminophen 325 mg Tablet 650 MG PO ×2 (13:01→18:34)
[2020-11-25 13:03] LABS: D Dimer 2.57 ug/mIFEU (0-0.59); Lactate (Lactic Acid level) 0.7 mmol/L (0.5-2.2)
[2020-11-25 13:08] LABS: Alanine Aminotransferase 6 U/L (0-33); Alkaline Phosphatase 75 IU/L (35-105); Anion Gap 14.6 (5-19); Aspartate Amino Transferase 14 U/L (0-32); Blood Urea Nitrogen 11 mg/dL (8-23); C Reactive Protein 83.5 mg/L (0.0-4.9); Calcium 8.2 mg/dL (8.5-10.5); Carbon Dioxide 22 mmol/L (22-29); Chloride 99 mmol/L (98-107); Globulin 2.2 g/dL (1.3-4.6); Glomerular Filtration Rate 45.4 mL/min (90-130); Glucose 94 mg/dL (65-115); Osmolality Calculated 271 mOsm/kg (285-295); Potassium 4.6 mmol/L (3.5-5.1); Sodium 131 mmol/L (136-145); Total Bilirubin 0.2 mg/dL (0.15-1.2); Total Protein 6.2 g/dL (6.6-8.7)
[2020-11-25 13:10] LABS: Troponin(5th) Baseline 12 ng/L (0-10)
--- NOTE | 2020-11-25 13:17 | CT_ITS ---
WS: [id number] CTA OF THE CHEST WITH PULMONARY EMBOLISM PROTOCOL TECHNIQUE: High-resolution contrast enhanced CTA of the chest with coronal and sagittal reformatted i mages with pulmonary embolism protocol. MIP images are also reviewed. CLINICAL INFORMATION: SOB, pain on inspiration, left chest pain COMPARISON: CTA December 28, 2020 DLP: 331.[address] scans at [facility] use at least one of these dose optimization techniques: automat ed exposure control; mA and/or kV adjustment per patient size (includes targeted exams where dose is matched to clinical indication); or iterative reconstruction. FINDINGS: Proximal main pulmonary arteries are normal. Normal segmental and subsegmental pulmonary arteries. No evidence of pulmonary embolus. Normal caliber thoracic aorta. Mild aortic calcification. Aortic endo graft in the lower thoracic and abdominal aorta partially visualized. Left renal cortical atrophy. Adrenal glands are normal. No mediastinal or hilar lymphadenopathy. No a xillary lymphadenopathy. Moderate chronic emphysematous changes. Wedge-shaped consolidated opacity in the left lower lobe suspicious for pneumonia. Recommend follow-up to resolution. This measures appro ximately 2.9 x 2.3 CM. This is new since August 16, 2020 CT/CT angio chest PE protcl [id number] IMPRESSION: 1. No evidence for pulmonary embolus. 2. Wedge-shaped infiltrate in the left lower lobe laterally is new from 2020 suspicious for pneumonia. Recommend follow-up to resolution to exclude neoplasm. Associated pleural thickening. 3. Moderate chronic emphysematous changes. 4. No other significant changes from previous.
[2020-11-25] MEDS: iodixanol 320 mg/mL 100mL Btl IV ×2 (13:57→13:58)
--- NOTE | 2020-11-25 14:20 | ECG_ITS ---
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 Measurements Intervals [place] Rate: 76 P: 81 PA: 138 QRS: 79 QRSD: 69 T: 80 QT: 377 QTc: 425 Interpretive Statements SINUS RHYTHM Compared to ECG 11/25/2020 12:44:03 No significant changes Electronically Signed On 11-26-2020 7:01:28 CDT by Nakita Hernandez M.D. [id number]
[2020-11-25 14:41] LABS: Procalcitonin 0.11 ng/mL (0-0.5)
[2020-11-25 14:56] LABS: Troponin 5 2HR 12.45 ng/L (0-10); Troponin 5 2HR Delta 0.45 ABS# (0-10)
[2020-11-25] MEDS: cefTRIAXone 1,000 MG in sodium chloride 0.9% (plus) 50 ML 100 MG IV (15:28)
[2020-11-25 16:15] LABS: Influenza A by IFA Negative (Negative); Influenza B by IFA Negative (Negative)
--- NOTE | 2020-11-25 18:15 | P.HP_ITS ---
Providers/Chief Complaint Admitting Physician: Mitch Smith MD Primary Care Provider: Jeanette Santos, PATTERNMAKER ALL AROUND-C Chief Complaint: FEVER/ DEHYDRATED/ SOB/ NAUSEA History of Present Illness Hali James is a 65 year old female with past medical history of COPD Gold class D who follows up with Dr. Beltre, on chronic oxygen 2L, BiPAP dependent, hypertension, hyperlipidemia, diastolic heart failure, history of abdominal aortic aneurysm, solitary kidney, CKD presents to the ER today because of pain on left side of her chest. Patient states she has been having pain for last 2 days. She has been having cough more than usual and bringing up green-colored phlegm. She is complaining of fever at home measuring up to 100.3 Fahrenheit. States she is been using 2 L oxygen supplementation at home saturating between 90 to 98%. She is getting more short of breath than usual. She gets short of breath on exertion. She gets around the house while walking. She denies any chills or rigors. States at home her cat and nephew are having runny nose and sniffles like symptoms last week. Last Covid vaccination was on September 30. Denies any diarrhea, dizziness, palpitation, chest pain, orthopnea, PND, swelling in her legs. In the ER patient was found to have a blood pressure of 165/80, T-max 100.3 Fahrenheit, saturating 98% on 2 L oxygen supplementation. Blood work in the ER showed a white count of 7000, hemoglobin of 11, D-dimer of 2.5, sodium of 131, potassium of 4.6, creatinine of 1.2, calcium of 8.2, AST/ALT of 14/6, CRP of 53.5, procalcitonin 0.11, flu negative, CTA chest abdomen pelvis done in the ER showed no pulmonary embolism, wedge-shaped infiltrate in left low er lobe laterally consistent with pneumonia, CT abdomen pelvis showing stable migrated endovascular aortic graft unchanged from before, [place] aneurysm unchanged, bilateral iliac artery stent patent, left renal atrophy, indeterminate left upper pole renal lesion measuring 10 mm, no hydronephrosis of the right kidney. Review of Systems General: Reports: 10 or more systems reviewed and unremarkable except in HPI and below Const: Denies: fever(s), chills, body aches, change in appetite, change in weight, malaise, night sweats, diaphoresis, change in sleep pattern, daytime sleepiness or snoring Eyes: Denies: change in vision, blurry vision, photophobia, eye discomfort or eye discharge ENMT: Denies: throat pain, enlarged tonsils, hoarseness, mouth pain, oral sores, dry mouth, tinnitus, nasal congestion or post nasal drip Card: Denies: chest pain, palpitations, irregular heart rhythm, edema, swelling of feet/ankles, lightheadedness, syncope, pre-syncope, dyspnea on ex ertion, orthopnea, leg pain with exertion or acrocyanosis Resp: Denies: dyspnea, productive cough, non-productive cough, wheezing, stridor, pain on inspiration, change in phlegm color, hemoptysis or chest congestion GI: Denies: abdominal pain, nausea, vomiting, hematemesis, coffee ground e mesis, dysphagia, heartburn, diarrhea, constipation, bloating, GI cramping, change in bowel habits, pain on defecation, hematochezia or melena : Denies: flank pain, dysuria, urinary frequency, urinary urgency, urinary hesitancy, nocturia or hematuria Musc: Denies: neck pain, back pain, extremity pain, joint pain, joint swelling, joint redness, joint stiffness or limited range of motion Neuro: Denies: headache(s), numbness in extremities, weakness in extremities, sensory changes, lack of coordination, difficulty walking, frequent falls, dizziness, vertigo, confusion, Slurred speech present, difficulty communicating thoughts or seizure-like activity Psych: Denies: anxiety, depression, mood swings, panic attacks, hopelessness or irritability Endo: Denies: polyuria, polydipsia, tired all the time, cold intolerance, excessive sweating, flushing or heat intolerance Bill/Lymph: Denies: easy bruising or easy bleeding All/Imm: Denies: tongue swelling, facial swelling or acute wheezing Medications/Allergies Home Medications Medication Instructions Recorded Confirmed Last Taken Type fluticasone propionate [Flonase 2 spray INTRANASAL DAILY PRN 02/21/20 11/25/20 08/15/20 History Allergy Relief] albuterol sulfate 2 puff INHALATION 6XD PRN 04/22/20 11/25/20 08/16/20 History albuterol sulfate 2.5 mg INHALATION QID PRN 30 Days 05/15/20 11/25/20 08/16/20 Rx #75 ml budesonide-formoterol HFA 160 2 puff INHALATION BID 10/16/20 11/25/20 11/24/20 History mcg-4.5 mcg/actuation aerosol inhaler epinephrine 0.3 mg/0.3 mL 0.3 mg IM Q10M PRN 10/16/20 11/25/20 Unknown History injection, auto-injector roflumilast 500 mcg tablet 500 mcg PO DAILY@0830 #30 tab 10/20/20 11/25/20 11/24/20 Rx tiotropium bromide 18 mcg capsule 1 cap INHALATION DAILY #30 inh 10/20/20 11/25/20 11/24/20 Rx with inhalation device clonidine HCl 0.1 mg tablet 0.1 mg PO BID #60 tab 10/22/20 11/25/20 11/24/20 Rx acetaminophen 650 mg 650 mg PO Q12H PRN 30 Days #30 tab 10/23/20 11/25/20 Unknown Rx tablet,extended release amitriptyline 25 mg tablet 25 mg PO DAILY@0830 30 Days #30 tab 10/23/20 11/25/20 11/24/20 Rx aspirin 81 mg tablet,delayed 81 mg PO DAILY@0830 30 Days #30 tab 10/23/20 11/25/20 11/24/20 Rx release citalopram 40 mg tablet 40 mg PO DAILY@0830 30 Days #30 tab 10/23/20 11/25/20 11/24/20 Rx hydralazine 100 mg tablet 100 mg PO TID@0830,1400,2100 30 10/23/20 11/25/20 11/24/20 Rx Days #90 tab isosorbide mononitrate 60 mg 60 mg PO DAILY@0830 30 Days #30 tab 10/23/20 11/25/20 11/24/20 Rx tablet,extended release 24 hr levothyroxine 50 mcg capsule 50 mcg PO DAILY@0830 30 Days #30 10/23/20 11/25/20 11/24/20 Rx cap magnesium oxide 400 mg PO BID@0830,2100 30 Days 10/23/20 11/25/20 11/24/20 Rx #30 tab metoprolol succinate 50 mg 50 mg PO BID@0830,2100 30 Days #60 0415/21 05/18/21 05/17/21 Rx tablet,extended release 24 hr tab nitroglycerin 0.4 mg sublingual 0.4 mg SUBLINGUAL Q5M PRN 30 Days 10/23/20 11/25/20 Unknown Rx tablet #30 tab omeprazole 20 mg capsule,delayed 20 mg PO DAILY@0830 30 Days #30 cap 10/23/20 11/25/20 11/24/20 Rx release atorvastatin 30 mg PO DAILY@0800 11/12/20 11/25/20 11/24/20 History amlodipine 5 mg PO DAILY@0830 11/25/20 11/25/20 11/25/20 History ropinirole 1 mg PO DAILY@2100 11/25/20 11/25/20 11/24/20 History Allergies Allergy/AdvReac Type Severity Reaction Status Date / Time lisinopril Allergy anaphylaxis Verified 11/18/20 14:10 Sulfa (Sulfonamide Allergy unknown Verified 11/18/20 14:10 Antibiotics) PFSH Acute PFSH: Medical History (Updated 11/25/20 @ 18:27 by Mitch Smith MD) AAA (abdominal aortic aneurysm) 4.1 x 4.4 x 5.7 cm 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 Anemia Atypical chest pain Brain aneurysm Chronic kidney disease CKD stage III, solitary kidney Chronic migraine without aura, intractable, with status migrainosus COPD (chronic obstructive pulmonary disease) Depression Endoleak post (EVAR) endovascular aneurysm repair GERD (gastroesophageal reflux disease) History of stent insertion of renal artery Hypercholesteremia Hypertension Hypertensive urgency Resolved Hypothyroidism Inguinal swelling Normal colonoscopy Osteoporosis Peripheral vascular disease Restless leg Surgical History (Updated 11/25/20 @ 18:27 by Mitch Smith MD) H/O: hysterectomy History of renal stent Herculink stent History of repair of aneurysm of abdominal aorta using endovascular stent graft Hx of tonsillectomy S/P appendectomy Family History Mother CAD (coronary artery disease) Chronic kidney disease (CKD) Dementia Stroke Father CAD (coronary artery disease) Cancer Diabetes Brother CAD (coronary artery disease) Cancer Lung disease Grandfather Cancer Grandmother Diabetes Family/Other Lung disease Suicide Other Hypertension Denies family history of Clotting disorder Anesthesia complication Bleeding disorder Social History Smoking and tobacco status: former smoker Quit status (tobacco): has quit using tobacco Year quit tobacco: 2005 - PPD x 35 Years Second hand smoke exposure: No Smoking risk assessment/counseling performed?: No Alcohol intake: never Desire information about alcohol rehabilitation?: No Counseling given: No Adopted: No Caregiver/support person: No Lives independently: Yes Household members: family and children Housing: House Marital status: / Marital status details: 2005 Number of children: 12 Number of grandchildren: 4 Highest education level completed: Master's Degree Education level details: Criminal Justice service: No Current occupational status: disabled Current occupational exposures/hazards: No Pets and animals: Yes Pets & animals: cat(s), dog(s) and farm animals Farm Animals: cattle History of recent travel: No Leisure activites: reading and other Leisure activities details: watch TV Sexually active: No Current gender identity: Female Yudy/Pentecostalism: [employer] Special yudy needs: No Agree to transfusion: Yes Financial difficulty paying for basics: Somewhat Hard Female Reproductive History: Date of last menstrual period: 10/21/20 Para: 0 Spontaneous abortions: Yes Vitals/I&O/Wt Last Vital Signs Temp 98.7 F 11/25/20 17:35 Pulse 80 11/25/20 17:35 Resp 18 11/25/20 17:35 BP 165/82 11/25/20 17:35 Pulse Ox 98 11/25/20 17:35 11/25/20 11/25/20 11/25/20 06:59 14:59 22:59 Intake Total 50 / 50 Balance 50 / 50 Weight last 48 hrs Weight 39.463 kg Physical Exam Narrative: EXAM NARRATIVE: General: No acute distress, AO x3, frail, cachectic, on 2 L saturating 98% HEENT: PERRLA, pupils bilaterally equal and reactive Chest: Bronchial breath sounds all over the lung gilliam, crackles present in the left lateral region, equal good air entry bilaterally CVS: S1-S2 regular, no murmurs, no tachycardia, no gallops, no rubs Abdomen: Soft, nontender, no organomegaly, bowel sounds present Neuro: No focal deficits, no facial deformity, AO x3, power 5/5 in all limbs Data : 11/25/20 12:23 11/25/20 12:23 Micro: Microbiology 11/25/20 12:55 Blood Culture - Preliminary Blood SPECIMEN COLLECTED 11/25/20 12:23 Blood Culture - Preliminary Blood SPECIMEN COLLECTED A&P Assessment and plan (1) Pneumonia: Status: Acute (2) Atypical chest pain: Status: Acute (3) Congestive heart failure: Status: Acute Qualifiers: Heart failure chronicity: acute on chronic Heart failure type: unspecified Qualified Code(s): I50.9 - Heart failure, unspecified (4) COPD (chronic obstructive pulmonary disease): Status: Chronic Qualifiers: COPD type: unspecified COPD Qualified Code(s): J44.9 - Chronic obstructive pulmonary disease, unspecified (5) Chronic kidney disease: Status: Acute Qualifiers: Chronic kidney disease stage: stage 3 (moderate) Qualified Code(s): N18.3 - Chronic kidney disease, stage 3 (moderate) (6) Solitary kidney: Status: Acute (7) Anemia: Status: Acute Qualifiers: Anemia type: unspecified type Qualified Code(s): D64.9 - Anemia, unspecified (8) AAA (abdominal aortic aneurysm): Status: Acute Qualifiers: Presence of rupture: without rupture Qualified Code(s): I71.4 - Abdominal aortic aneurysm, without rupture (9) Hypertension: Status: Acute Qualifiers: Hypertension type: essential hypertension Qualified Code(s): I10 - Essential (primary) hypertension Additional A&P Information 62-year-old female past medical history of COPD Gold class D, history of multiple pneumonias in the past, second this year presented with left-sided chest pain found to have pneumonia on CT chest. Community-acquired pneumonia: Evident on chest imaging. Saturating at baseline. Sputum culture, procalcitonin, urine culture, urine Legionella, bacterial antigen, MRSA swab, blood cultures. For now start patient azithromycin and ceftriaxone. Will de-escalate antibiotics as per culture results. COPD Gold class D: Not in acute exacerbation for now. Continue duo nebs every 6 hours, budesonide twice daily. No role of steroid for now as patient is not in acute exacerbation. BiPAP at night. Tramadol 50 every 8 as needed for pain, lidocaine patch. Hypertension: Goal blood pressure less than 140/90 mmHg. Currently patient is amlodipine 5 mg, clonidine 0.1 twice daily, hydralazine 100 mg 3 times daily. Blood pressure elevated right now. For now increase clonidine to 0.1 3 times daily. Needed will uptitrate medications or add medications accordingly. Solitary kidney/CKD: Baseline creatinine ranging between 1.1-1.8. 1.2 today. Patient had contrast study in the ER. Gentle hydration with IV fluids 50 cc/h overnight for one back. History of diastolic heart failure: No exacerbation at present. Will monitor for fluid overload. Strict input output charting. Check proBNP. Anemia: Hemoglobin at baseline. Check iron studies. If needed will start patient on iron supplementation. CODE STATUS: Patient would like to be full code. Cardiac diet. Heparin 5000 every 12 for DVT prophylaxis. Attestations Medical Necessity Statement*: Patient for more than two midnights for community-acquired pneumonia in setting of gold class D COPD Time Spent in Patient Care: Greater than 35 minutes (>than 50% of time spent in counselling and/or direct pt care on unit) . Coding Level of Care Code Acute Devops Consultant for Leann Crowley Diagnoses Pneumonia J18.9 Atypical chest pain R07.89 Congestive heart failure I50.9 Heart failure chronicity: acute on chronic Heart failure type: unspecified COPD (chronic obstructive pulmonary disease) J44.9 COPD type: unspecified COPD Chronic kidney disease N18.3 Chronic kidney disease stage: stage 3 (moderate) Solitary kidney Q60.0 Anemia D64.9 Anemia type: unspecified type AAA (abdominal aortic aneurysm) I71.4 Presence of rupture: without rupture Hypertension I10 Hypertension type: essential hypertension
--- NOTE | 2020-11-25 18:17 | PC.NURSE ---
patient states she uses 2l O2 sleeping and 4L O2 walking
--- NOTE | 2020-11-25 18:20 | ECG_ITS ---
[facility] ED Test Date: 2020-11-25 Pat Name: Hali James Department: Room: 255 Gender: Female Telegraph Editor: : 1955 Requested By: Jojo Melo I Order Number: [id number] Wil MD: Nakita Hernandez M.D. Measurements Intervals [place] Rate: 70 P: 79 HI: 152 QRS: 78 QRSD: 66 T: 79 QT: 386 QTc: 418 Interpretive Statements SINUS RHYTHM SEPTAL MYOCARDIAL INFARCTION [40+ ms Q WAVE IN V1/V2], OF INDETERMINATE AGE Compared to ECG 11/25/2020 14:51:41 Myocardial infarct finding now present Electronically Signed On 11-26-2020 6:59:47 CDT by Nakita Hernandez M.D. [id number]
[2020-11-25] MEDS: heparin 5,000 unit/mL INJ 1 mL 5000 UNIT SUBCUT (18:33)
[2020-11-25] MEDS: famotidine 20 mg/2 mL INJ IVP (18:33)
[2020-11-25] MEDS: benzonatate 100 mg Capsule PO (18:34)
[2020-11-25] MEDS: sodium chloride 0.9% 1,000 ML 50 ML IV (18:34)
[2020-11-25 18:52] LABS: Bacteria Urine TRACE /hpf; Bilirubin Urine Neg (Negative); Blood Urine Neg (Negative); Glucose Urine UA Norm (Normal); Ketones Urine Negative (Negative); Leukocyte Esterase Urine Negative (Negative); Nitrate Urine Negative (Negative); Protein Urine Neg (Negative); RBC Urine 0-4 /hpf (0-2); Squamous Epithelial Cell Urine 0-4 /hpf (0-5); Urine Appearance Clear (CLEAR); Urine Color Yellow (Yellow); Urobilinogen Urine Norm (Negative); WBC Urine 0-4 /hpf (0-5); pH Urine 7 (5-7)
[2020-11-25 19:15] LABS: Iron 17 ug/dL (37-145); NT Pro B Type Natriuretic Pept 610 pg/mL (0-125); Percent Saturation 12.2 % (20-50); Total Iron Binding Capacity 139 mcg/dl; Unsaturated Iron Binding 122 ug/dL (112-347)
[2020-11-25 19:58] LABS: Troponin 5 6HR 12.11 ng/L (0-10); Troponin 5 6HR Delta 0.11 ng/L (0-12)
[2020-11-25 20:43] LABS: Potassium, Radom Urine 19 mmol/L; Urine Random Chloride 66 mmol/L; Urine Random Sodium 72 mmol/L
[2020-11-25] MEDS: hyDRALAzine 50 mg Tablet 100 MG PO (22:30)
[2020-11-25] MEDS: magnesium oxide 400 mg tablet PO (22:30)
[2020-11-25] MEDS: cloNIDine 0.1 mg Tablet PO (22:30)
[2020-11-25] MEDS: ropinirole 1 mg Tablet PO (22:30)
[2020-11-25] MEDS: metoprolol succinate ER (24 HR) 50 mg Tablet PO (22:31)
[2020-11-26] VITALS (15 sets, daily range): BP systolic 94–168; BP diastolic 50–91; PULSE 66–89; RESP 16–18; TEMP 36.6–38.2; O2SAT 94–100
[2020-11-26] MEDS: TRAMadol 50 mg Tablet PO ×2 (03:01→14:08)
--- NOTE | 2020-11-26 04:01 | PC.NURSE ---
Patient complained of pain. nurse notified
[2020-11-26 05:16] LABS: Basophils % 0.3 %; Hematocrit 33.8 % (37.0-47.0); Hemoglobin 10.7 g/dL (11.5-15.3); Lymphocytes % 15.6 %; Mean Corpuscular HGB Conc 31.7 g/dL (30.0-36.0); Mean Corpuscular Hemoglobin 29.1 pg (28.0-34.0); Mean Corpuscular Volume 91.8 fL (81-99); Mean Platelet Volume 9.3 fL (7.4-10.4); Monocytes # 0.4 10^3/uL (0.2-0.9); Monocytes % 5.9 %; Neutrophils # 5.17 10^3/uL (1.8-7.7); Neutrophils % 77.7 %; Nucleated Red Blood Cells % 0 %; Platelet Count 167 10^3/cmm (130-400); Red Blood Count 3.68 10^6/uL (4.1-5.3); Red Cell Distribution Width 16.8 % (12.1-15.1); White Blood Count 6.7 10^3/uL (4.0-10.0)
[2020-11-26 05:30] LABS: INR 0.91 (0.8-1.2)
[2020-11-26 05:38] LABS: Alanine Aminotransferase < 5 U/L (0-33); Albumin Level 3.3 g/dL (3.5-5.2); Alkaline Phosphatase 70 IU/L (35-105); Anion Gap 11.8 (5-19); Aspartate Amino Transferase 12 U/L (0-32); Blood Urea Nitrogen 14 mg/dL (8-23); Calcium 8.2 mg/dL (8.5-10.5); Carbon Dioxide 25 mmol/L (22-29); Chloride 103 mmol/L (98-107); Glomerular Filtration Rate 41.4 mL/min (90-130); Glucose 99 mg/dL (65-115); Osmolality Calculated 281 mOsm/kg (285-295); Potassium 4.8 mmol/L (3.5-5.1); Sodium 135 mmol/L (136-145); Total Bilirubin 0.2 mg/dL (0.15-1.2); Total Protein 6.3 g/dL (6.6-8.7)
[2020-11-26 05:44] LABS: Magnesium 2.1 mg/dL (1.7-2.3); Phosphorus 3.4 mg/dL (2.5-4.5)
--- NOTE | 2020-11-26 07:00 | US_ITS ---
WS: [id number] ULTRASOUND RENAL TECHNIQUE: Ultrasound examination of both kidneys. CLINICAL INFORMATION: Indeterminate left upper pole renal lesion measuring 10 mm. COMPARISON: CT November 25, 2020 FINDINGS: RIGHT: Right kidney is normal in size and appearance. Echogenicity: Normal. Cortical thickness: 0.8 cm; Normal. Hydronephrosis: None. Perinephric fluid: None. Right kidney measures: 9.7 cm x 4.2 cm x 3.9 cm. LEFT: Left renal atrophy. Echogenic left kidney consistent with chronic medical renal disease. Upper pole l eft renal cyst with a few septations.Upper pole cyst measures 7.8 x 7.5 x 9.5 mm Echogenicity: Increased. Hydronephrosis: None. Perinephric fluid: None. Left kidney measures: 7.5 cm x 3.7 cm x 2.4 cm. Normal visualized aorta. Bladder is decompressed. US/US renal BI* [id number] IMPRESSION: 1. No hydronephrosis in right kidney. 2. Atrophic left kidney with complex upper pole renal cyst with a few septatio ns. Upper pole cystic lesion measures 7.8 x 7.5 x 9.5 mm. Recommend continued s urveillance.
[2020-11-26] MEDS: heparin 5,000 unit/mL INJ 1 mL 5000 UNIT SUBCUT ×2 (09:01→19:19)
[2020-11-26] MEDS: famotidine 20 mg/2 mL INJ IVP ×2 (09:01→19:20)
[2020-11-26] MEDS: isosorbide mononitrate ER 60 mg Tablet PO (09:01)
[2020-11-26] MEDS: levothyroxine 50 mcg Tablet PO (09:01)
[2020-11-26] MEDS: metoprolol succinate ER (24 HR) 50 mg Tablet PO ×2 (09:02→21:22)
[2020-11-26] MEDS: benzonatate 100 mg Capsule PO (09:02)
[2020-11-26] MEDS: amlodipine 5 mg Tablet PO (09:03)
[2020-11-26] MEDS: roflumilast 500 mcg Tablet PO (09:03)
[2020-11-26] MEDS: amitriptyline 25 mg Tablet PO (09:03)
[2020-11-26] MEDS: magnesium oxide 400 mg tablet PO ×2 (09:03→21:22)
[2020-11-26] MEDS: hyDRALAzine 50 mg Tablet 100 MG PO ×3 (09:03→21:22)
[2020-11-26] MEDS: acetaminophen 325 mg Tablet 650 MG PO (09:03)
[2020-11-26] MEDS: aspirin 81 mg EC Tablet PO (09:03)
[2020-11-26] MEDS: cloNIDine 0.1 mg Tablet PO ×2 (09:04→14:09)
[2020-11-26] MEDS: lidocaine 5% Patch 1 PATCH TOPICAL ×2 (09:04→21:23)
[2020-11-26] MEDS: atorvastatin 40 mg Tablet 20 MG PO (09:04)
[2020-11-26] MEDS: cefTRIAXone 1,000 MG in sodium chloride 0.9% (plus) 50 ML 100 MG IV (09:05)
[2020-11-26] MEDS: ipratropium-albuterol 3 mL Neb INHALATION ×3 (09:51→19:45)
[2020-11-26] MEDS: budesonide 0.5 mg/2 mL Neb INHALATION ×2 (09:51→19:46)
--- NOTE | 2020-11-26 10:46 | PC.CHAP ---
Pastoral Care Encounter/Spiritual Assessment Type of Contact [] Declined rolls baker visit [] Patient/Family/Request visit [] Outpatient visit [] Follow-up visit [] Physician referral [] Code/Alert [X] Routine visit [] Staff referral [] Actively dying [] Patient sleeping [] Family support [] [] Out of room [] Palliative care [] [] Receiving care in room [] Pre-surgical visit [] Trauma [] Long length of stay [] ICU visit [] Other: Relational/Emotional Strength [X] Patient feels connected with others/family/visitors/staff [] Distress [] Loneliness/isolation [] Abandonment Spirituality of Patient [X] Person of Yudy [] Attends Jainism of their Yudy [] Believes in Prayer [] Reads Bible or Presybeterian materials [] There are Spiritual issues to be addressed Media Developer Interventions [X] Prayer [X] Active listening [] Non-anxious presence [] Spiritual/emotional support [] Crisis/trauma care [] Spiritual counseling [] Bereavement support [] Provided bereavement packet [] Provided Bible/devotional materials [] Provided toy/stuffed animal, coloring book to patient or family member [] Provided Communion [] Anointing/[place] [] Salvation [X] Completed spiritual assessment [] Other: Impact on Illness or Injury [] Angry [] Fearful [] Anxious [] Often cries [] Exhaustion [] Unable to work [] Unable to attend taoist [] Unable to walk/stand [] Unable to read [] Unable to drive [] Unable to eat/drink [] Unable to sleep [] Unable to be with family [] Patient intubated [] Other: Summary Time spent with patient 10 MIN
--- NOTE | 2020-11-26 18:28 | P.PN_ITS ---
Subjective Subjective: Interval history: No acute events overnight. Denies any N/v, GARCIA. States she is feeling better in view of cough and of pain but feels very weak. Still on 2 L saturating well. Afebrile overnight. T max 100.1 in AM Vitals/I&O/Wt Last Vital Signs Temp 97.9 F 11/26/20 16:00 Pulse 77 11/26/20 16:00 Resp 17 11/26/20 16:00 BP 94/50 11/26/20 16:00 Pulse Ox 94 11/26/20 16:00 11/26/20 11/26/20 11/26/20 06:59 14:59 22:59 Intake Total 480 / 530 1026.667 / 1026.667 Output Total 300 / 300 Balance 180 / 230 1026.667 / 1026.667 Weight last 48 hrs Weight 45.359 kg Weight 39.463 kg Physical Exam Narrative: EXAM NARRATIVE: General: No acute distress, AO x3, frail, cachectic, on 2 L saturating 98% HEENT: PERRLA, pupils bilaterally equal and reactive Chest: Bronchial breath sounds all over the lung gilliam, crackles present in the left lateral region, equal good air entry bilaterally CVS: S1-S2 regular, no murmurs, no tachycardia, no gallops, no rubs Abdomen: Soft, nontender, no organomegaly, bowel sounds present Neuro: No focal deficits, no facial deformity, AO x3, power 5/5 in all limbs Data : 11/26/20 04:55 11/26/20 04:55 Micro: Microbiology 11/25/20 12:55 Blood Culture - Preliminary Blood NEGATIVE TO DATE 11/25/20 12:23 Blood Culture - Preliminary Blood NEGATIVE TO DATE 11/25/20 18:32 Legionella Urinary Antigen - Final Urine,Voided 11/26/20 02:50 Gram Stain - Final Sputum - Expectorated Sputum 11/25/20 18:32 Bacterial Antigens - Final Urine Kidney A&P Assessment and plan (1) Pneumonia: Status: Acute Qualifiers: Laterality: left Lung location: lower lobe of lung Pneumonia type: due to unspecified organism Qualified Code(s): J18.9 - Pneumonia, unspecified organism (2) Atypical chest pain: Status: Acute (3) Congestive heart failure: Status: Acute Qualifiers: Heart failure chronicity: acute on chronic Heart failure type: unspecified Qualified Code(s): I50.9 - Heart failure, unspecified (4) COPD (chronic obstructive pulmonary disease): Status: Chronic Qualifiers: COPD type: unspecified COPD Qualified Code(s): J44.9 - Chronic ob structive pulmonary disease, unspecified (5) Chronic kidney disease: Status: Acute Qualifiers: Chronic kidney disease stage: stage 3 (moderate) Qualified Code(s): N18.3 - Chronic kidney disease, stage 3 (moderate) (6) Solitary kidney: Status: Acute (7) Anemia: Status: Acute Qualifiers: Anemia type: unspecified type Qualified Code(s): D64.9 - Anemia, unspecified (8) AAA (abdominal aortic aneurysm): Status: Acute Qualifiers: Presence of rupture: without rupture Qualified Code(s): I71.4 - Abdominal aortic aneurysm, without rupture (9) Hypertension: Status: Acute Qualifiers: Hypertension type: essential hypertension Qualified Code(s): I10 - Essential (primary) hypertension Additional A&P Information 62-year-old female past medical history of COPD Gold class D, history of multiple pneumonias in the past, second this year presented with left-sided chest pain found to have pneumonia on CT chest. Community-acquired pneumonia: Evident on chest imaging. Saturating at baseline. Procal negative, Legionella, bacterial antigen negative. Bcx, Sputum Cx awaited. C/w Ceftriaxone and Azithromycin. H/o Moroxella in sputum in past. Covered with Azithro. COPD Gold class D: Not in acute exacerbation for now. Continue duo nebs every 6 hours, budesonide twice daily. No role of steroid for now as patient is not in acute exacerbation. BiPAP at night. Tramadol 50 every 8 as needed for pain, lidocaine patch. Hypertension: Goal blood pressure less than 140/90 mmHg. Currently patient is amlodipine 5 mg, clonidine 0.1 twice daily, hydralazine 100 mg 3 times daily. Solitary kidney/CKD: Baseline creatinine ranging between 1.1-1.8. 1.3 today. Patient had contrast study in the ER. Gentle hydration with IV fluids 50 cc/h overnight for one back. History of diastolic heart failure: No exacerbation at present. Will monitor for fluid overload. Strict input output charting. proBNP negative Anemia: Hemoglobin at baseline. Start on oral iron supplementation. CODE STATUS: Patient would like to be full code. Cardiac diet. Heparin 5000 every 12 for DVT prophylaxis. Attestations Medical Necessity Statement*: Needs admission for CAP Time Spent in Patient Care: Greater than 35 minutes (>than 50% of time spent in counselling and/or direct pt care on unit) . Coding Level of Care Code Acute Semiconductor Processing Technician for Chg Fwd Diagnoses Pneumonia J18.9 Laterality: left Lung location: lower lobe of lung Pneumonia type: due to unspecified organism Atypical chest pain R07.89 Congestive heart failure I50.9 Heart failure chronicity: acute on chronic Heart failure type: unspecified COPD (chronic obstructive pulmonary disease) J44.9 COPD type: unspecified COPD Chronic kidney disease N18.3 Chronic kidney disease stage: stage 3 (moderate) Solitary kidney Q60.0 Anemia D64.9 Anemia type: unspecified type AAA (abdominal aortic aneurysm) I71.4 Presence of rupture: without rupture Hypertension I10 Hypertension type: essential hypertension
[2020-11-26] MEDS: azithromycin 500 MG in sodium chloride 0.9% 250 ML 250 MG IV (19:19)
[2020-11-26] MEDS: sodium chloride 0.9% 1,000 ML 50 ML IV (19:21)
[2020-11-26] MEDS: ondansetron 2 mg/ML SDV 2 mL 4 MG IVP (20:11)
[2020-11-26] MEDS: ropinirole 1 mg Tablet PO (21:22)
[2020-11-27] VITALS (18 sets, daily range): BP systolic 106–143; BP diastolic 40–69; PULSE 78–88; RESP 16–20; TEMP 36.8–37.2; O2SAT 92–98
[2020-11-27] MEDS: ipratropium-albuterol 3 mL Neb INHALATION ×4 (03:12→20:46)
[2020-11-27] MEDS: famotidine 20 mg/2 mL INJ IVP ×2 (06:20→18:53)
[2020-11-27] MEDS: heparin 5,000 unit/mL INJ 1 mL 5000 UNIT SUBCUT ×2 (06:20→18:53)
[2020-11-27 06:35] LABS: Basophils % 0.2 %; Hematocrit 29.1 % (37.0-47.0); Lymphocytes # 0.8 10^3/uL (0.8-4.8); Lymphocytes % 14.4 %; Mean Corpuscular HGB Conc 30.9 g/dL (30.0-36.0); Mean Corpuscular Hemoglobin 28.9 pg (28.0-34.0); Mean Corpuscular Volume 93.6 fL (81-99); Mean Platelet Volume 9.3 fL (7.4-10.4); Monocytes # 0.2 10^3/uL (0.2-0.9); Monocytes % 3.7 %; Neutrophils % 81.5 %; Nucleated Red Blood Cells % 0 %; Platelet Count 165 10^3/cmm (130-400); Red Blood Count 3.11 10^6/uL (4.1-5.3); Red Cell Distribution Width 16.9 % (12.1-15.1); White Blood Count 5.4 10^3/uL (4.0-10.0)
[2020-11-27 06:54] LABS: Alanine Aminotransferase < 5 U/L (0-33); Albumin Level 2.8 g/dL (3.5-5.2); Alkaline Phosphatase 61 IU/L (35-105); Anion Gap 18.7 (5-19); Aspartate Amino Transferase 12 U/L (0-32); Blood Urea Nitrogen 21 mg/dL (8-23); Calcium 8.1 mg/dL (8.5-10.5); Carbon Dioxide 17 mmol/L (22-29); Chloride 99 mmol/L (98-107); Globulin 2.7 g/dL (1.3-4.6); Glomerular Filtration Rate 30.4 mL/min (90-130); Glucose 68 mg/dL (65-115); Osmolality Calculated 271 mOsm/kg (285-295); Potassium 4.7 mmol/L (3.5-5.1); Sodium 130 mmol/L (136-145); Total Bilirubin 0.2 mg/dL (0.15-1.2); Total Protein 5.5 g/dL (6.6-8.7)
[2020-11-27] MEDS: hyDRALAzine 50 mg Tablet 100 MG PO ×3 (08:55→21:29)
[2020-11-27] MEDS: aspirin 81 mg EC Tablet PO (08:55)
[2020-11-27] MEDS: roflumilast 500 mcg Tablet PO (08:55)
[2020-11-27] MEDS: magnesium oxide 400 mg tablet PO ×2 (08:55→21:28)
[2020-11-27] MEDS: ferrous gluconate 324 mg Tablet PO ×2 (08:55→18:53)
[2020-11-27] MEDS: levothyroxine 50 mcg Tablet PO (08:55)
[2020-11-27] MEDS: TRAMadol 50 mg Tablet PO (08:55)
[2020-11-27] MEDS: metoprolol succinate ER (24 HR) 50 mg Tablet PO ×2 (08:55→21:29)
[2020-11-27] MEDS: amlodipine 5 mg Tablet PO (08:56)
[2020-11-27] MEDS: amitriptyline 25 mg Tablet PO (08:56)
[2020-11-27] MEDS: cefTRIAXone 1,000 MG in sodium chloride 0.9% (plus) 50 ML 100 MG IV (08:56)
[2020-11-27] MEDS: isosorbide mononitrate ER 60 mg Tablet PO (08:56)
[2020-11-27] MEDS: atorvastatin 40 mg Tablet 20 MG PO (08:56)
[2020-11-27] MEDS: citalopram 20 mg Tablet 40 MG PO (08:56)
[2020-11-27] MEDS: cloNIDine 0.1 mg Tablet PO ×2 (08:56→18:53)
[2020-11-27] MEDS: lidocaine 5% Patch 1 PATCH TOPICAL ×2 (08:57→21:30)
[2020-11-27] MEDS: budesonide 0.5 mg/2 mL Neb INHALATION ×2 (09:26→20:46)
[2020-11-27] MEDS: benzonatate 100 mg Capsule PO (14:16)
[2020-11-27] MEDS: acetaminophen 325 mg Tablet 650 MG PO (14:17)
[2020-11-27] MEDS: sodium chloride 0.9% 1,000 ML 50 ML IV (14:18)
--- NOTE | 2020-11-27 16:32 | PC.RESP ---
PULMONARY REHAB INFORMATION SENT TO PATIENT.
--- NOTE | 2020-11-27 17:09 | P.PN_ITS ---
Subjective Subjective: Interval history: No acute events overnight. Patient states she is feeling better. States pain is better. She thinks that her chest feels a little tight today as compared to usual. Patient examination looks mildly tachypneic. Still saturating 96% on baseline 2 L nasal cannula. Denies any nausea vomiting, headache. No diarrhea. Vitals/I&O/Wt Last Vital Signs Temp 98.3 F 11/27/20 16:00 Pulse 80 11/27/20 16:27 Resp 17 11/27/20 16:20 BP 113/67 11/27/20 16:00 Pulse Ox 96 11/27/20 16:20 11/27/20 11/27/20 11/27/20 06:59 14:59 22:59 Intake Total 1477.5 / 1477.5 Output Total 300 / 300 Balance -300 / 346.652 2534.5 / 1477.5 Weight last 48 hrs Weight 46.992 kg Weight 45.359 kg Physical Exam Narrative: EXAM NARRATIVE: General: No acute distress, AO x3, frail, cachectic, on 2 L saturating 98% HEENT: PERRLA, pupils bilaterally equal and reactive Chest: Bronchial breath sounds all over the lung gilliam, bilateral wheeze all over the lung gilliam, crackles present in the left lateral region, equal good air entry bilaterally CVS: S1-S2 regular, no murmurs, no tachycardia, no gallops, no rubs Abdomen: Soft, nontender, no organomegaly, bowel sounds present Neuro: No focal deficits, no facial deformity, AO x3, power 5/5 in all limbs Data : 11/27/20 05:48 11/27/20 05:48 Micro: Microbiology 11/26/20 02:50 Gram Stain - Final Sputum - Expectorated Sputum Sputum Culture - Preliminary 11/25/20 12:55 Blood Culture - Preliminary Blood NEGATIVE TO DATE 11/25/20 12:23 Blood Culture - Preliminary Blood NEGATIVE TO DATE A&P Assessment and plan (1) Pneumonia: Status: Acute Qualifiers: Laterality: left Lung location: lower lobe of lung Pneumonia type: due to unspecified organism Qualified Code(s): J18.9 - Pneumonia, unspecified org anism (2) Atypical chest pain: Status: Acute (3) Congestive heart failure: Status: Acute Qualifiers: Heart failure chronicity: acute on chronic Heart failure type: unspecified Qualified Code(s): I50.9 - Heart failure, unspecified (4) COPD (chronic obstructive pulmonary disease): Status: Chronic Qualifiers: COPD type: unspecified COPD Qualified Code(s): J44.9 - Chronic obstructive pulmonary disease, unspecified (5) Chronic kidney disease: Status: Acute Qualifiers: Chronic kidney disease stage: stage 3 (moderate) Qualified Code(s): N18.3 - Chronic kidney disease, stage 3 (moderate) (6) Solitary kidney: Status: Acute (7) Anemia: Status: Acute Qualifiers: Anemia type: unspecified type Qualified Code(s): D64.9 - Anemia, unspecified (8) AAA (abdominal aortic aneurysm): Status: Acute Qualifiers: Presence of rupture: without rupture Qualified Code(s): I71.4 - Abdominal aortic aneurysm, without rupture (9) Hypertension: Status: Acute Qualifiers: Hypertension type: essential hypertension Qualified Code(s): I10 - Essential (primary) hypertension Additional A&P Information 62-year-old female past medical history of COPD Gold class D, history of multiple pneumonias in the past, second this year presented with left-sided chest pain found to have pneumonia on CT chest. Community-acquired pneumonia: Evident on chest imaging. Saturating at baseline. Procal negative, Legionella, bacterial antigen negative. Bcx, Sputum Cx awaited. C/w Ceftriaxone and Azithromycin. H/o Moroxella in sputum in past. Covered with Azithro. COPD Gold class D: Mild wheeze present today. Given the history of COPD will start patient on prednisone 40 mg daily for 5 days. Check proBNP. Stop fluids. Continue duo nebs every 6 hours, budesonide twice daily. BiPAP at night. Tramadol 50 every 8 as needed for pain, lidocaine patch. Pulmonary toilet with incentive spirometry. Hypertension: Goal blood pressure less than 140/90 mmHg. Currently patient is amlodipine 5 mg, clonidine 0.1 twice daily, hydralazine 100 mg 3 times daily. Solitary kidney/CKD: Baseline creatinine ranging between 1.1-1.8. Creatinine still at baseline. Patient had contrast study in the ER. Stop IV fluids. History of diastolic heart failure: No exacerbation at present. Will monitor for fluid overload. Strict input output charting. Anemia: Hemoglobin at baseline. Start on oral iron supplementation. CODE STATUS: Patient would like to be full code. Cardiac diet. Heparin 5000 every 12 for DVT prophylaxis. Attestations Medical Necessity Statement*: Requires further hospitalization for management of community-acquired pneumonia, COPD exacerbation Time Spent in Patient Care: Greater than 35 minutes (>than 50% of time spent in counselling and/or direct pt care on unit) . Coding Level of Care Code Acute Felt Machine Mechanic for Chg Fwd Diagnoses Pneumonia J18.9 Laterality: left Lung location: lower lobe of lung Pneumonia type: due to unspecified organism Atypical chest pain R07.89 Congestive heart failure I50.9 Heart failure chronicity: acute on chronic Heart failure type: unspecified COPD (chronic obstructive pulmonary disease) J44.9 COPD type: unspecified COPD Chronic kidney disease N18.3 Chronic kidney disease stage: stage 3 (moderate) Solitary kidney Q60.0 Anemia D64.9 Anemia type: unspecified type AAA (abdominal aortic aneurysm) I71.4 Presence of rupture: without rupture Hypertension I10 Hypertension type: essential hypertension
[2020-11-27] MEDS: azithromycin 500 MG in sodium chloride 0.9% 250 ML 250 MG IV (18:53)
[2020-11-27 19:09] LABS: NT Pro B Type Natriuretic Pept 1955 pg/mL (0-125)
--- NOTE | 2020-11-27 20:22 | PC.NURSE ---
PT HAS DONE WELL FOR ME TODAY. PT HAS HAD VERY FEW COMPLAINTS OF PAIN. PT HAS BEEN UP AND WALKING TO THE BATHROOM ON HER OWN AND HAS DONE VERY WELL WITH THIS. FLUIDS WERE STOPPED ON THE PT THIS AFTERNOON PER DOCTOR ORDER. IT WAS ALSO TOLD TO THE PT THAT SHE NEEDS TO BE UP AND WALKING FREQUENTLY. SHE AGREED TO THAT AND SAID SHE WOULD TRY TO BE UP AND AROUND THE ROOM MORE ON HER OWN. PT IS DOING FINE RIGHT NOW. SHE CURRENTLY HAS ZITHROMAX RUNNING THROUGH HER IV BUT AFTER THIS IS OVER SHE WILL BE PIDD OFF. BEDSIDE REPORT WAS GIVEN TO PATRICIA MOTA. PT DID NOT HAVE ANY QUESTIONS OR NEEDS/WANTS AT THIS TIME. WILL CONTINUE TO MONITOR PT.
[2020-11-27] MEDS: ropinirole 1 mg Tablet PO (21:28)
[2020-11-27] MEDS: ondansetron 2 mg/ML SDV 2 mL 4 MG IVP (22:47)
[2020-11-28] VITALS (10 sets, daily range): BP systolic 135–156; BP diastolic 72–80; PULSE 66–90; RESP 16–20; TEMP 36.9–37.4; O2SAT 93–98
[2020-11-28] MEDS: ipratropium-albuterol 3 mL Neb INHALATION ×2 (02:32→08:58)
[2020-11-28] MEDS: acetaminophen 325 mg Tablet 650 MG PO (02:41)
[2020-11-28 05:38] LABS: Alanine Aminotransferase < 5 U/L (0-33); Alkaline Phosphatase 57 IU/L (35-105); Aspartate Amino Transferase 15 U/L (0-32); Blood Urea Nitrogen 16 mg/dL (8-23); Carbon Dioxide 21 mmol/L (22-29); Chloride 98 mmol/L (98-107); Globulin 2.8 g/dL (1.3-4.6); Glomerular Filtration Rate 45.4 mL/min (90-130); Glucose 105 mg/dL (65-115); Osmolality Calculated 270 mOsm/kg (285-295); Sodium 129 mmol/L (136-145); Total Bilirubin 0.2 mg/dL (0.15-1.2); Total Protein 5.8 g/dL (6.6-8.7)
[2020-11-28 06:27] LABS: Basophils % 0.3 %; Hematocrit 26.8 % (37.0-47.0); Hemoglobin 8.8 g/dL (11.5-15.3); Lymphocytes # 0.6 10^3/uL (0.8-4.8); Lymphocytes % 15.5 %; Mean Corpuscular HGB Conc 32.8 g/dL (30.0-36.0); Mean Corpuscular Hemoglobin 28.9 pg (28.0-34.0); Mean Corpuscular Volume 88.2 fL (81-99); Mean Platelet Volume 9.8 fL (7.4-10.4); Monocytes # 0.3 10^3/uL (0.2-0.9); Monocytes % 6.9 %; Neutrophils # 2.77 10^3/uL (1.8-7.7); Neutrophils % 76.7 %; Nucleated Red Blood Cells % 0 %; Platelet Count 182 10^3/cmm (130-400); Red Blood Count 3.04 10^6/uL (4.1-5.3); Red Cell Distribution Width 16.1 % (12.1-15.1); White Blood Count 3.6 10^3/uL (4.0-10.0)
[2020-11-28] MEDS: famotidine 20 mg/2 mL INJ IVP (06:34)
[2020-11-28] MEDS: heparin 5,000 unit/mL INJ 1 mL 5000 UNIT SUBCUT (06:36)
[2020-11-28] MEDS: budesonide 0.5 mg/2 mL Neb INHALATION (08:58)
[2020-11-28] MEDS: cloNIDine 0.1 mg Tablet PO (09:20)
[2020-11-28] MEDS: isosorbide mononitrate ER 60 mg Tablet PO (09:20)
[2020-11-28] MEDS: predniSONE 20 mg Tablet 40 MG PO (09:20)
[2020-11-28] MEDS: hyDRALAzine 50 mg Tablet 100 MG PO (09:20)
[2020-11-28] MEDS: citalopram 20 mg Tablet 40 MG PO (09:20)
[2020-11-28] MEDS: amlodipine 5 mg Tablet PO (09:20)
[2020-11-28] MEDS: atorvastatin 40 mg Tablet 20 MG PO (09:21)
[2020-11-28] MEDS: levothyroxine 50 mcg Tablet PO (09:21)
[2020-11-28] MEDS: metoprolol succinate ER (24 HR) 50 mg Tablet PO (09:21)
[2020-11-28] MEDS: lidocaine 5% Patch 1 PATCH TOPICAL (09:22)
[2020-11-28] MEDS: amitriptyline 25 mg Tablet PO (09:22)
[2020-11-28] MEDS: magnesium oxide 400 mg tablet PO (09:22)
[2020-11-28] MEDS: cefTRIAXone 1,000 MG in sodium chloride 0.9% (plus) 50 ML 100 MG IV (09:22)
[2020-11-28] MEDS: ferrous gluconate 324 mg Tablet PO (09:22)
[2020-11-28] MEDS: roflumilast 500 mcg Tablet PO (09:22)
[2020-11-28] MEDS: aspirin 81 mg EC Tablet PO (09:22)
--- NOTE | 2020-11-28 12:38 | PC.CHAP ---
Pastoral Care Encounter/Spiritual Assessment Type of Contact [] Declined scientific illustrator visit [] Patient/Family/Request visit [] Outpatient visit [] Follow-up visit [] Physician referral [] Code/Alert [xx] Routine visit [] Staff referral [] Actively dying [] Patient sleeping [] Family support [] [] Out of room [] Palliative care [] [] Receiving care in room [] Pre-surgical visit [] Trauma [] Long length of stay [] ICU visit [] Other: Relational/Emotional Strength [] Patient feels connected with others/family/visitors/staff [] Distress [] Loneliness/isolation [] Abandonment Spirituality of Patient [] Person of Yudy [] Attends Rastafari of their Yudy [] Believes in Prayer [xx] Reads Bible or Congregation materials [] There are Spiritual issues to be addressed Derrick Boat Runner Interventions [] Prayer [xx] Active listening [xx] Non-anxious presence [] Spiritual/emotional support [] Crisis/trauma care [] Spiritual counseling [] Bereavement support [] Provided bereavement packet [xx] Provided Bible/devotional materials [] Provided toy/stuffed animal, coloring book to patient or family member [] Provided Communion [] Anointing/[place] [] Salvation [xx] Completed spiritual assessment [] Other: Impact on Illness or Injury [] Angry [] Fearful [] Anxious [] Often cries [] Exhaustion [] Unable to work [] Unable to attend jain [] Unable to walk/stand [] Unable to read [] Unable to drive [] Unable to eat/drink [] Unable to sleep [] Unable to be with family [] Patient intubated [] Other: Summary Significant other present to visit patient. Pleasant conversation but patient declined prayer. Time spent with patient 6 minutes
--- NOTE | 2020-11-28 12:52 | P.DS_ITS ---
Discharge Providers Date of Admission: 11/25/20 15:11 Date of Discharge: November 28, 2020 Attending Provider at Admission: Mitch Smith MD Attending Provider at Discharge: Mitch Smith MD Primary Care Provider: HERBERT Ferro Diagnoses at Discharge Discharge Diagnosis (1) Pneumonia: Status: Acute Qualifiers: Laterality: left Lung location: lower lobe of lung Pneumonia type: due to unspecified organism Qualified Code(s): J18.9 - Pneumonia, unspecified organism (2) Atypical chest pain: Status: Acute (3) Congestive heart failure: Status: Acute Qualifiers: Heart failure chronicity: acute on chronic Heart failure type: unspecified Qualified Code(s): I50.9 - Heart failure, unspecified (4) COPD (chronic obstructive pulmonary disease): Status: Chronic Qualifiers: COPD type: unspecified COPD Qualified Code(s): J44.9 - Chronic obstruct sebastian pulmonary disease, unspecified (5) Chronic kidney disease: Status: Acute Permanent problem details: CKD stage III, solitary kidney Qualifiers: Chronic kidney disease stage: stage 3 (moderate) Qualified Code(s): N18.3 - Chronic kidney disease, stage 3 (moderate) (6) Solitary kidney: Status: Acute (7) Anemia: Status: Acute Qualifiers: Anemia type: unspecified type Qualified Code(s): D64.9 - Anemia, unspecified (8) AAA (abdominal aortic aneurysm): Status: Acute Permanent problem details: 4.1 x 4.4 x 5.7 cm 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 Qualifiers: Presence of rupture: without rupture Qualified Code(s): I71.4 - Abdominal aortic aneurysm, without rupture (9) Hypertension: Status: Acute Qualifiers: Hypertension type: essential hypertension Qualified Code(s): I10 - Essential (primary) hypertension Reason for Visit Reason for Visit: FEVER/ DEHYDRATED/ SOB/ NAUSEA Hospital Course Hospital Course Hali James is a 65 year old female with past medical history of COPD Gold class D who follows up with Dr. Beltre, on chronic oxygen 2L, BiPAP dependent, hypertension, hyperlipidemia, diastolic heart failure, history of abdominal aortic aneurysm, solitary kidney, CKD presents to the ER today because of pain on left side of her chest. Patient states she has been having pain for last 2 days. She has been having cough more than usual and bringing up green-colored phlegm. She is complaining of fever at home measuring up to 100.3 Fahrenheit. States she is been using 2 L oxygen supplementation at home saturating between 90 to 98%. She is getting more short of breath than usual. She gets short of breath on exertion. She gets around the house while walking. She denies any chills or rigors. States at home her cat and nephew are having runny nose and sniffles like symptoms last week. Last Covid vaccination was on September 30. Denies any diarrhea, dizziness, palpitation, chest pain, orthopnea, PND, swelling in her legs. In the ER patient was found to have a blood pressure of 165/80, T-max 100.3 Fahrenheit, saturating 98% on 2 L oxygen supplementation. Blood work in the ER showed a white count of 7000, hemoglobin of 11, D-dimer of 2.5, sodium of 131, potassium of 4.6, creatinine of 1.2, calcium of 8.2, AST/ALT of 14/6, CRP of 53.5, procalcitonin 0.11, flu negative, CTA chest abdomen pelvis done in the ER showed no pulmonary embolism, wedge-shaped infiltrate in left lower lobe laterally consistent with pneumonia, CT abdomen pelvis showing stable migrated endovascular aortic graft unchanged from before, [place] aneurysm unchanged, bilateral iliac artery stent patent, left renal atrophy, indeterminate left upper pole renal lesion measuring 10 mm, no hydronephrosis of the right kidney. Patient was admitted to the hospital for management of pneumonia. She was started on antibiotics for community acquired pneumonia. She continues to remain on baseline oxygen supplementation. Chest pain it is quite a bit with treatment. Sputum culture grew mixed upper respiratory carlene. Though sputum culture in the past has been growing Moraxella. She is been discharged hemodynamically stable condition on azithromycin for 3 more days. She will be taking prednisone 40 mg daily for 5 more days for a possible COPD exacerbation. Her hospital course was unremarkable. During hospitalization her creatinine shwetha to 1.7 but it was still on her baseline of 1.2-1.8. On the day of discharge her creatinine is 1.3. Patient will follow up with her primary care provider within next 2 weeks. Physical Exam Narrative: EXAM NARRATIVE: General: No acute distress, AO x3, frail, cachectic, on 2 L saturating 98% HEENT: PERRLA, pupils bilaterally equal and reactive Chest: Bronchial breath sounds all over the lung gilliam, bilateral wheeze all over the lung gilliam, crackles present in the left lateral region, equal good air entry bilaterally CVS: S1-S2 regular, no murmurs, no tachycardia, no gallops, no rubs Abdomen: Soft, nontender, no organomegaly, bowel sounds present Neuro: No focal deficits, no facial deformity, AO x3, power 5/5 in all limbs Discharge Data Data Completed and Pending: Completed Studies During Hospitalization Category Date Time Status CT angio abdomen pelvis [id number] Urgen t Cat Scan 11/25/[address] angio chest PE protcl [id number] Urge nt Cat Scan 11/25/20 13:17 Completed XR chest 1V asael ble [id number] Stat Exams 11/25/20 12:12 Completed US renal BI* [id number] Routine Ultrasound 11/26/20 07:00 Completed Pending at discharge Category Date Time Status Blood Culture Sta t Lab 11/25/20 12:55 Results Sputum Culture an d Gram Stain Stat Lab 11/26/20 02:50 Results Labs from last 24 hours 11/28/20 11/28/20 11/27/20 04:50 04:50 18:26 WBC 3.6 L RBC 3.04 L Hgb 8.8 L Hct 26.8 L MCV 88.2 D MCH 28.9 MCHC 32.8 D RDW 16.1 H Plt Count 182 MPV 9.8 Neut % (Auto) 76.7 Lymph % (Auto) 15.5 [place] % (Auto) 6.9 Eos % (Auto) 0.0 Baso % (Auto) 0.3 Neut # (Auto) 2.77 Lymph # (Auto) 0.6 L [place] # (Auto) 0.3 Eos # (Auto) 0.0 Baso # (Auto) 0.0 Nucleated RBC % (a uto) 0 Nucleated RBCs # 0.0 Sodium 129 L Potassium 4.0 Chloride 98 Carbon Dioxide 21 L Anion Gap 14.0 BUN 16 Creatinine 1.2 H GFR Calculation 45.4 L Glucose 105 Calculated Osmolal ity 270 L Calcium 8.0 L Total Bilirubin 0.2 AST 15 ALT < 5 Alkaline Phosphata se 57 NT-Pro-B Natriuret Pep 1955 H Total Protein 5.8 L Albumin 3.0 L Globulin 2.8 Addt'l Data from Hospital Stay: Laboratory Results WBC 3.6 10^3/uL (4.0- 10.0) L 11/28/20 04:50 RBC 3.04 10^6/uL (4.1 -5.3) L 11/28/20 04:50 Hgb 8.8 g/dL (11.5-15 .3) L 11/28/20 04:50 Hct 26.8 % (37.0-47.0 ) L 11/28/20 04:50 MCV 88.2 fL (81-99) D 11/28/20 04:50 MCH 28.9 pg (28.0-34. 0) 11/28/20 04:50 MCHC 32.8 g/dL (30.0-3 6.0) D 11/28/20 04:50 RDW 16.1 % (12.1-15.1 ) H 11/28/20 04:50 Plt Count 182 10^3/cmm (130 -400) 11/28/20 04:50 MPV 9.8 fL (7.4-10.4) 11/28/20 04:50 Neut % (Auto) 76.7 % 11/28/20 04:50 Lymph % (Auto) 15.5 % 11/28/20 04:50 [place] % (Auto) 6.9 % 11/28/20 04:50 Eos % (Auto) 0.0 % 11/28/20 04:50 Baso % (Auto) 0.3 % 11/28/20 04:50 Neut # (Auto) 2.77 10^3/uL (1.8 -7.7) 11/28/20 04:50 Lymph # (Auto) 0.6 10^3/uL (0.8- 4.8) L 11/28/20 04:50 [place] # (Auto) 0.3 10^3/uL (0.2- 0.9) 11/28/20 04:50 Eos # (Auto) 0.0 10^3/uL (0.0- 0.8) 11/28/20 04:50 Baso # (Auto) 0.0 10^3/uL (0.0- 0.1) 11/28/20 04:50 Nucleated RBC % (a uto) 0 % 11/28/20 04:50 Nucleated RBCs # 0.0 /100WBC 11/28/20 04:50 PT 12.50 SECONDS (12 .1-14.9) 11/26/20 04:55 INR 0.91 (0.8-1.2) 11/26/20 04:55 D-Dimer 2.57 ug/mIFEU (0- 0.59) H 11/25/20 12:23 Sodium 129 mmol/L (136-1 45) L 11/28/20 04:50 Potassium 4.0 mmol/L (3.5-5 .1) 11/28/20 04:50 Chloride 98 mmol/L (98-107 ) 11/28/20 04:50 Carbon Dioxide 21 mmol/L (22-29) L 11/28/20 04:50 Anion Gap 14.0 (5-19) 11/28/20 04:50 BUN 16 mg/dL (8-23) 11/28/20 04:50 Creatinine 1.2 mg/dL (0.5-0. 9) H 11/28/20 04:50 GFR Calculation 45.4 mL/min (90-1 30) L 11/28/20 04:50 Glucose 105 mg/dL (65-115 ) 11/28/20 04:50 Calculated Osmolal ity 270 mOsm/kg (285- 295) L 11/28/20 04:50 Lactate 0.7 mmol/L (0.5-2 .2) 11/25/20 12:23 Calcium 8.0 mg/dL (8.5-10 .5) L 11/28/20 04:50 Phosphorus 3.4 mg/dL (2.5-4. 5) 11/26/20 04:55 Magnesium 2.1 mg/dL (1.7-2. 3) 11/26/20 04:55 Iron 17 ug/dL (37-145) L 11/25/20 12:23 TIBC 139 mcg/dl 11/25/20 12:23 % Saturation 12.2 % (20-50) L 11/25/20 12:23 Unsat Iron Binding 122 ug/dL (112-34 7) 11/25/20 12:23 Total Bilirubin 0.2 mg/dL (0.15-1 .2) 11/28/20 04:50 AST 15 U/L (0-32) 11/28/20 04:50 ALT < 5 U/L (0-33) 11/28/20 04:50 Alkaline Phosphata se 57 IU/L (35-105) 11/28/20 04:50 Troponin T Baselin e 12 ng/L (0-10) H 11/25/20 12:23 Troponin T 120 Min [place] 12.45 ng/L (0-10) H 11/25/20 14:24 Delta Troponin T 0.45 ABS# (0-10) 11/25/20 14:24 Troponin T Hi Sens 6Hr 12.11 ng/L (0-10) H 11/25/20 19:26 Troponin T Hi Sens 6Hr Delta 0.11 ng/L (0-12) 11/25/20 19:26 C-Reactive Protein 83.5 mg/L (0.0-4. 9) H 11/25/20 12:23 NT-Pro-B Natriuret Pep 1955 pg/mL (0-125 ) H 11/27/20 18:26 Total Protein 5.8 g/dL (6.6-8.7 ) L 11/28/20 04:50 Albumin 3.0 g/dL (3.5-5.2 ) L 11/28/20 04:50 Globulin 2.8 g/dL (1.3-4.6 ) 11/28/20 04:50 Procalcitonin 0.11 ng/mL (0-0.5 ) 11/25/20 12:23 Urine Color Cancelled 11/25/20 18:32 Urine Color Yellow (Yellow) 11/25/20 18:32 Urine Appearance Cancelled 11/25/20 18:32 Urine Appearance Clear (CLEAR) 11/25/20 18:32 Urine pH 7 (5-7) 11/25/20 18:32 Urine pH Cancelled 11/25/20 18:32 Ur Specific Gravit y 1.000 (1.005-1.0 30) L 11/25/20 18:32 Ur Specific Gravit y Cancelled 11/25/20 18:32 Urine Protein Cancelled 11/25/20 18:32 Urine Protein Neg (Negative) 11/25/20 18:32 Urine Glucose (UA) Cancelled 11/25/20 18:32 Urine Glucose (UA) Norm (Normal) 11/25/20 18:32 Urine Ketones Cancelled 11/25/20 18:32 Urine Ketones Negative (Negati ve) 11/25/20 18:32 Urine Blood Cancelled 11/25/20 18:32 Urine Blood Neg (Negative) 11/25/20 18:32 Urine Nitrate Cancelled 11/25/20 18:32 Urine Nitrate Negative (Negati ve) 11/25/20 18:32 Urine Bilirubin Cancelled 11/25/20 18:32 Urine Bilirubin Neg (Negative) 11/25/20 18:32 Prot Sulfosalicyli c Acd Cancelled 11/25/20 18:32 Urine Urobilinogen Cancelled 11/25/20 18:32 Urine Urobilinogen Norm mg/dL (Negat sebastian) 11/25/20 18:32 Ur Leukocyte Luz Elena ase Cancelled 11/25/20 18:32 Ur Leukocyte Luz Elena ase Negative (Negati ve) 11/25/20 18:32 Urine RBC 0-4 /hpf (0-2) H 11/25/20 18:32 Urine WBC 0-4 /hpf (0-5) H 11/25/20 18:32 Ur Squamous Epith Cells 0-4 /hpf (0-5) H 11/25/20 18:32 Amorphous Sediment Not Reportable 11/25/20 18:32 Urine Bacteria Trace /hpf (NONE) 11/25/20 18:32 Ur Random Sodium 72 mmol/L 11/25/20 18:32 Ur Random Potassiu m 19 mmol/L 11/25/20 18:32 Ur Random Chloride 66 mmol/L 11/25/20 18:32 Influenza Type A A g Negative (Negati ve) 11/25/20 15:41 Influenza Type B A g Negative (Negati ve) 11/25/20 15:41 Impressions Abdomen/Pelvis CTA 11/25/20 00:00 IMPRESSION: 1. Previously described migrated endovascular aortic graft is unchanged in appearance since the prior examinations. [place] aneurysm is unchanged in size. 2. Bilateral iliac artery stent grafts are patent. 3. Left renal atrophy. Indeterminate left upper pole renal lesion measuring 10 mm. Renal neoplasm not excluded. This appears slightly increased in size comp ared to the prior examinations. This can be further evaluated with ultrasound. 4. No hydronephrosis in right kidney. 5. Left lower lobe infiltrate new from previous described on the chest CT Chest X-Ray 11/25/20 12:12 IMPRESSION: No acute findings. Chest CTA 11/25/20 13:17 IMPRESSION: 1. No evidence for pulmonary embolus. 2. Wedge-shaped infiltrate in the left lower lobe laterally is new from August 2020 suspicious for pneumonia. Recommend follow-up to resolution to exclude neoplasm. Associated pleural thickening. 3. Moderate chronic emphysematous changes. 4. No other significant changes from previous. Renal Ultrasound 11/26/20 07:00 IMPRESSION: 1. No hydronephrosis in right kidney. 2. Atrophic left kidney with complex upper pole renal cyst with a few septations. Upper pole cystic lesion measures 7.8 x 7.5 x 9.5 mm. Recommend continued surveillance. Microbiology 11/26/20 02:50 Sputum - Expectorated Sputum Gram Stain - Final 11/26/20 02:50 Sputum - Expectorated Sputum Sputum Culture - Preliminary 11/25/20 12:55 Blood Blood Culture - Preliminary NEGATIVE TO DATE 11/25/20 12:23 Blood Blood Culture - Preliminary NEGATIVE TO DATE 11/25/20 18:32 Urine,Voided Legionella Urinary Antigen - Final 11/25/20 18:32 Urine Kidney Bacterial Antigens - Final Vitals: Last Vital Signs Temp 99.4 F 11/28/20 11:32 Pulse 85 11/28/20 11:32 Resp 18 11/28/20 11:32 BP 135/72 11/28/20 11:32 Pulse Ox 94 11/28/20 11:32 Discharge Plan Discharge Patient Disposition: Home Condition: Stable Prescriptions: New prednisone 20 mg Tablet 40 mg PO DAILY 5 Days Qty: 10 RF: 0 ferrous gluconate 324 mg (37.5 mg iron) Tablet 324 mg PO BIDWM 30 Days Qty: 60 RF: 0 azithromycin 500 mg tablet 500 mg PO DAILY 5 Days Qty: 5 RF: 0 Continued albuterol sulfate 2.5 mg /3 mL (0.083 %) solution for nebulization 2.5 mg INHALATION QID PRN (Reason: Shortness Of Breath) 30 Days Qty: 75 RF: 5 budesonide-formoterol [Symbicort] 160-4.5 mcg/actuation HFA aerosol inhaler 2 puff inhalation BID RF: 0 epinephrine 0.3 mg/0.3 mL auto-injector 0.3 mg IM Q10M PRN (Reason: Allergic Reaction) RF: 0 amitriptyline 25 mg tablet 25 mg PO DAILY@0830 30 Days Qty: 30 RF: 0 aspirin 81 mg tablet,delayed release (DR/EC) 81 mg PO DAILY@08 30 Days Qty: 30 RF: 5 citalopram 40 mg tablet 40 mg PO DAILY@08 30 Days Qty: 30 RF: 0 isosorbide mononitrate 60 mg tablet extended release 24 hr 60 mg PO DAILY@08 30 Days Qty: 30 RF: 5 levothyroxine 50 mcg capsule 50 mcg PO DAILY@829 30 Days Qty: 30 RF: 0 magnesium oxide 400 mg magnesium tablet 400 mg PO BID@08,2099 30 Days Qty: 30 RF: 5 omeprazole 20 mg capsule,delayed release(DR/EC) 20 mg PO DAILY@829 30 Days Qty: 30 RF: 5 nitroglycerin [Nitrostat] 0.4 mg tablet, sublingual 0.4 mg SUBLINGUAL Q5M PRN (Reason: Chest Pain) 30 Days Qty: 30 RF: 5 acetaminophen [Tylenol Arthritis Pain] 650 mg tablet extended release 650 mg PO Q12H PRN (Reason: pain) 30 Days Qty: 30 RF: 5 metoprolol succinate 50 mg tablet extended release 24 hr 50 mg PO BID@0830,2099 30 Days Qty: 60 RF: 5 hydralazine 100 mg tablet 100 mg PO TID@0830,1400,2100 30 Days Qty: 90 RF: 5 Spiriva with HandiHaler 18 mcg capsule, w/inhalation device 1 cap inhalation DAILY Qty: 30 RF: 3 Daliresp 500 mcg tablet 500 mcg PO DAILY@0830 Qty: 30 RF: 3 clonidine HCl 0.1 mg tablet 0.1 mg PO BID Qty: 60 RF: 5 albuterol sulfate 90 mcg/actuation Hfa Aerosol Inhaler 2 puff INHALATION 6XD PRN (Reason: Shortness Of Breath) RF: 0 atorvastatin 20 mg tablet 30 mg PO DAILY@0800 RF: 0 fluticasone propionate [Flonase Allergy Relief] 50 mcg/actuation [place],Suspension 2 spray INTRANASAL DAILY PRN (Reason: Nasal Congestion) RF: 0 amlodipine 5 mg Tablet 5 mg PO DAILY@0830 RF: 0 ropinirole 1 mg tablet 1 mg PO DAILY@2100 RF: 0 Discharge Orders: Discharge Order (Routine); Ordered 11/28/20 Ordered By: Mitch Smith Referrals: Jeanette Santos FNP-C [Primary Care Provider] - 12/12/20 9:20 am Discharge Diet: Regular and Cardiac Discharge Activity: Resume usual activity Patient Instructions: Iron Supplements (By mouth), Prednisone (By mouth), Azithromycin (By mouth), Opioid Safety, Pneumonia Stoplight, Pneumonia - Viral Discharge Attestations Time Spent in Discharge Care*: greater than 30 min Specific Discharge Activities: educating patient, discussing with briefcase sewer/social workers/dc planners, documenting/other paperwork and evaluating patient/reviewing data Status at Discharge: Cognitive status at discharge: cognitively intact , Behavioral status at discharge: cooperative , Functional status at discharge: independent ambulation Overall status at discharge: patient is back to baseline Quality Metrics Clinical Quality Measures During this hospital stay, did patient experience: None Coding Level of Care Code Acute Chg DC note Diagnoses Pneumonia J18.9 Laterality: left Lung location: lower lobe of lung Pneumonia type: due to unspecified organism Atypical chest pain R07.89 Congestive heart failure I50.9 Heart failure chronicity: acute on chronic Heart failure type: unspecified COPD (chronic obstructive pulmonary disease) J44.9 COPD type: unspecified COPD Chronic kidney disease N18.3 Chronic kidney disease stage: stage 3 (moderate) Solitary kidney Q60.0 Anemia D64.9 Anemia type: unspecified type AAA (abdominal aortic aneurysm) I71.4 Presence of rupture: without rupture Hypertension I10 Hypertension type: essential hypertension
== END 2020-11-28 13:57 | disposition home or self-care (01) | DRG 194 ==
LOC: ER 12:53 → MEDSURG 16:22
PROVIDERS: Admitting Provider Student in an Organized Health Care Education/Training Program; Emergency Provider Family Medicine; PCP Nurse Practitioner; Visit Provider Student in an Organized Health Care Education/Training Program
DX: J18.9 Pneumonia, unspecified organism (principal); J44.0 Chronic obstructive pulmonary disease with (acute) lower respiratory infection; J44.1 Chronic obstructive pulmonary disease with (acute) exacerbation; I13.0 Hypertensive heart and chronic kidney disease with heart failure and stage 1 through stage 4 chronic kidney disease, or unspecified chronic kidney disease; I50.32 Chronic diastolic (congestive) heart failure; Z99.81 Dependence on supplemental oxygen; N18.30 Chronic kidney disease, stage 3 unspecified; E78.5 Hyperlipidemia, unspecified; N26.9 Renal sclerosis, unspecified; I70.8 Atherosclerosis of other arteries; Z95.820 Peripheral vascular angioplasty status with implants and grafts; D63.1 Anemia in chronic kidney disease; G43.711 Chronic migraine without aura, intractable, with status migrainosus; F32.9 Major depressive disorder, single episode, unspecified; K21.9 Gastro-esophageal reflux disease without esophagitis; E78.00 Pure hypercholesterolemia, unspecified; E03.9 Hypothyroidism, unspecified; M81.0 Age-related osteoporosis without current pathological fracture; I73.9 Peripheral vascular disease, unspecified; G25.81 Restless legs syndrome; Z87.891 Personal history of nicotine dependence; Z79.82 Long term (current) use of aspirin; Z79.51 Long term (current) use of inhaled steroids; I71.4 Abdominal aortic aneurysm, without rupture
CPT/HCPCS: 36415; 71045; 71275; 74174; 76770; 80053; 81001; 82436; 83540; 83550; 83605; 83735; 83880; 84100; 84133; 84145; 84300; 84484; 85025; 85378; 85610; 86140; 86403; 87040; 87070; 87205; 87449; 87804; 93005; 94640; 94664; 96365; 96372; 99291; J0456; J0696; J1644; J2405; J3490; J7030; J7050; J7512; J7626; Q9967

== ENCOUNTER → 2020-12-02 12:03 | Outpatient (BNVA) | payer MEDICAID, SELFPAY | PROVIDERS: PCP Nurse Practitioner; Visit Provider Nurse Practitioner Family | DX: J18.9 Pneumonia, unspecified organism (principal); K92.1 Melena; D50.9 Iron deficiency anemia, unspecified; Z86.010 Personal history of colon polyps; B37.0 Candidal stomatitis; J44.1 Chronic obstructive pulmonary disease with (acute) exacerbation | CPT/HCPCS: 71046 ==

== ENCOUNTER 2020-12-10 12:13 | Outpatient (CLI) | payer MEDICAID, SELFPAY ==
--- NOTE | 2020-12-10 14:00 | MR_ITS ---
WS: [id number] [facility] 1955 MRI CERVICAL SPINE NONCONTRAST TECHNIQUE: Sagittal T1, T2 and STIR imaging. Axial T2, gradient, and fiesta imaging. CLINICAL INFORMATION: COMPARISON: Neck and back spasms with pinched nerve. Cervalgia. FINDINGS: Mild cervical curve. No high-grade central canal stenosis. Cord signal is normal. C2-C3: Mild disc bulging and osteophytic ridging. Mild left and no significant right foraminal narrow ing. Mild facet arthropathy. Spinal canal is patent. C3-C4: Slight retrolisthesis C3 on C4. Mild disc osteophyte complex with endplate ridging. Mild left greater than right foraminal narrowing. Mild facet arthropathy. Spinal canal is patent. C4-C5: Slight retrolisthesis C4 on C5. Disc osteophyte complex with endplate ridging. Mild central ca nal stenosis. Moderate bilateral bony foraminal narrowing worse in the left. Moderate facet arthropat hy. C5-C6: Mild disc bulging and osteophytic ridging. Moderate left and mild right bony foraminal narrowi ng. Mild facet arthropathy. Mild central canal stenosis. C6-C7: Disc osteophyte complex with endplate ridging. Mild left and no significant right foraminal na rrowing. Spinal canal is patent. C7-T1: Normal. Small vessel changes in the [place]. Mild mucosal thickening paranasal sinuses partially visualized. MR/MR cervical spin wo con* [id number] IMPRESSION: 1. Mild cervical curve convex left. 2. Cord signal is normal. No high-grade central canal narrowing. 3. Mild central canal stenosis due to disc osteophyte complexes C4-C5 and C5-C 6. 4. Multilevel mild to moderate bony foraminal narrowing worse at bilateral C4- 5 worse on the left, left C5-C6, and left C6-7.
== END 2020-12-10 12:14 | disposition home or self-care (01) ==
LOC: RADSHAW 12:16
PROVIDERS: PCP Nurse Practitioner; Visit Provider Orthopaedic Surgery
DX: M54.2 Cervicalgia (principal); M48.02 Spinal stenosis, cervical region; M25.78 Osteophyte, vertebrae
CPT/HCPCS: 72141

== ENCOUNTER 2020-12-10 17:05 | Emergency (ER) | payer MEDICAID, SELFPAY ==
[2020-12-10 17:54] VITALS: BP 176/84; PULSE 69; RESP 18; TEMP 36.9; O2SAT 98
--- NOTE | 2020-12-10 18:22 | W.ED.BACK ---
HPI - Back Pain/Injury General: Chief Complaint: Back Pain/Injury Stated Complaint: Pinched Nerve In Lower Back/Sent from Time Seen by Provider: 12/10/20 18:22 History of Present Illness: HPI Narrative: Patient presents with exacerbation of chronic back pain starting 2 to 3 days ago. Patient reports difficulty with sleeping at night. Patient denies any falls or new injuries. Patient at this time is under the care of Dr. Kennedy for chronic neck and back pain. Patient appears well. Patient appears in moderate pain. Patient denies any loss of bowel or bladder control. 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 Anemia Atypical chest pain Brain aneurysm Chronic kidney disease CKD stage III, solitary kidney Chronic migraine without aura, intractable, with status migrainosus Congestive heart failure COPD (chronic obstructive pulmonary disease) Depression Endoleak post (EVAR) endovascular aneurysm repair GERD (gastroesophageal reflux disease) History of stent insertion of renal artery Hypercholesteremia Hypertension Hypertensive urgency Resolved Hypothyroidism Inguinal swelling Normal colonoscopy Osteoporosis Peripheral vascular disease Restless leg Solitary kidney Surgical History H/O: hysterectomy History of renal stent Herculink stent History of repair of aneurysm of abdominal aorta using endovascular stent graft Hx of tonsillectomy S/P appendectomy Family History Mother CAD (coronary artery disease) Chronic kidney disease (CKD) Dementia Stroke Father CAD (coronary artery disease) Cancer Diabetes Brother CAD (coronary artery disease) Cancer Lung disease Grandfather Cancer Grandmother Diabetes Family/Other Lung disease Suicide Other Hypertension Denies family history of Clotting disorder Anesthesia complication Bleeding disorder Social History Smoking and tobacco status: former smoker Quit status (tobacco): has quit using tobacco Year quit tobacco: 2005 - PPD x 35 Years Second hand smoke exposure: No Smoking risk assessment/counseling performed?: No Alcohol intake: never Desire information about alcohol rehabilitation?: No Counseling given: No Adopted: No Caregiver/support person: No Lives independently: Yes Household members: family and children Housing: House Marital status: / Marital status details: 2006 Number of children: 12 Number of grandchildren: 4 Highest education level completed: Master's Degree Education level details: Criminal Justice service: No Current occupational status: disabled Current occupational exposures/hazards: No Pets and animals: Yes Pets & animals: cat(s), dog(s) and farm animals Farm Animals: cattle History of recent travel: No Leisure activites: reading and other Leisure activities details: watch TV Sexually active: No Current gender identity: Female Yudy/Confucianism: Zoroastrianism [employer] Special yudy needs: No Agree to transfusion: Yes Financial difficulty paying for basics: Somewhat Hard Female Reproductive History: Date of last menstrual period: 10/21/20 Para: 0 Spontaneous abortions: Yes Physical Exam Const: COMMON NORMALS: no acute distress and patient oriented x3 GENERAL APPEARANCE: cooperative HENMT: COMMON NORMALS: normocephalic and Normal external nose present HEAD & SCALP: normal to inspection and normocephalic NOSE: Normal external nose present MOUTH: Normal oral and palatal mucosa present Eye: GENERAL EYE: appearance normal, both eyes and all related structures Neck/C-Spine: COMMON NORMALS: full ROM Chest: COMMONS NORMALS: normal inspection of the chest Resp: COMMON NORMALS: normal respiratory effort EFFORT & INSPECTION: Yes able to speak in complete sentences Cardio: COMMON NORMALS: regular rate and regular rhythm RATE: regular rate RHYTHM: regular rhythm GI: COMMON NORMALS: non-tender : COMMON NORMALS: Yes no CVA tenderness BLADDER/KIDNEY EXAM: Yes no CVA tenderness Back/Pelvis: COMMON NORMALS: no CVA tenderness LUMBAR SPINE/LOWER BACK: Yes paraspinal muscle tenderness and Yes paraspinal muscle spasm Extremity: COMMON NORMALS: normal to inspection Neuro: COMMON NORMALS: patient oriented x3 and moves all extremities Psych: COMMON NORMALS: mental status grossly normal and cooperative Skin: COMMON NORMALS: no rashes or lesions noted GENERAL SKIN EXAM: no rashes or lesions noted Course Vital Signs: Vital signs: Vital Signs Temperature 98.4 F 12/10/20 17:54 Pulse Rate 65 12/10/20 18:37 Respiratory Rate 16 12/10/20 18:56 Blood Pressure 214/92 12/10/20 18:37 Pulse Oximetry 99 12/10/20 18:37 MDM - Back Pain/Injury MDM Narrative: Medical decision making narrative: 65-year-old female comes in with lumbar spine pain. Patient reports no falls or injuries. Patient reports severe pain for the last 2 to 3 days. Patient has a history of chronic back pain. Patient does see orthopedic surgeon Dr. Kennedy for her treatment. Patient had a recent MRI of her neck which showed mild cervical stenosis. Patient appears in moderate pain. Patient reports difficulty with mobility. Patient denies any bowel or bladder complaints. Differential diagnosis includes but not limited to vertebral compression fracture, exacerbation of chronic back pain, lumbar radiculopathy. CT scan noted no new abnormalities. Reviewed exam with patient with recommendations for treatment and follow-up. Patient reported understanding. Patient was written a short course of tramadol to help with pain, and tizanidine to help with muscle spasms. Patient reported understanding of recommendations. Discharge Plan Discharge Patient Disposition: Home Clinical Impression: Lumbar radiculopathy Condition: Stable Prescriptions: New tramadol 50 mg tablet 50 mg PO Q6H PRN (Reason: pain (scale score 7-10)) Qty: 14 RF: 0 tizanidine 4 mg tablet 4 mg PO Q8H PRN (Reason: muscle spasticity) Qty: 15 RF: 0 No Action albuterol sulfate 2.5 mg /3 mL (0.083 %) solution for nebulization 2.5 mg INHALATION QID PRN (Reason: Shortness Of Breath) 30 Days Qty: 75 RF: 5 budesonide-formoterol [Symbicort] 160-4.5 mcg/actuation HFA aerosol inhaler 2 puff inhalation BID RF: 0 epinephrine 0.3 mg/0.3 mL auto-injector 0.3 mg IM Q10M PRN (Reason: Allergic Reaction) RF: 0 amitriptyline 25 mg tablet 25 mg PO DAILY@0830 30 Days Qty: 30 RF: 0 aspirin 81 mg tablet,delayed release (DR/EC) 81 mg PO DAILY@0830 30 Days Qty: 30 RF: 5 citalopram 40 mg tablet 40 mg PO DAILY@0830 30 Days Qty: 30 RF: 0 isosorbide mononitrate 60 mg tablet extended release 24 hr 60 mg PO DAILY@0830 30 Days Qty: 30 RF: 5 levothyroxine 50 mcg capsule 50 mcg PO DAILY@0830 30 Days Qty: 30 RF: 0 magnesium oxide 400 mg magnesium tablet 400 mg PO BID@08,2099 30 Days Qty: 30 RF: 5 omeprazole 20 mg capsule,delayed release(DR/EC) 20 mg PO DAILY@0830 30 Days Qty: 30 RF: 5 nitroglycerin [Nitrostat] 0.4 mg tablet, sublingual 0.4 mg SUBLINGUAL Q5M PRN (Reason: Chest Pain) 30 Days Qty: 30 RF: 5 acetaminophen [Tylenol Arthritis Pain] 650 mg tablet extended release 650 mg PO Q12H PRN (Reason: pain) 30 Days Qty: 30 RF: 5 metoprolol succinate 50 mg tablet extended release 24 hr 50 mg PO BID@08,2099 30 Days Qty: 60 RF: 5 hydralazine 100 mg tablet 100 mg PO TID@0830,1400,2100 30 Days Qty: 90 RF: 5 nystatin 100,000 unit/mL suspension 4 - 6 ml PO BID 30 Days Qty: 480 RF: 2 Spiriva with HandiHaler 18 mcg capsule, w/inhalation device 1 cap inhalation DAILY Qty: 30 RF: 3 Daliresp 500 mcg tablet 500 mcg PO DAILY@0830 Qty: 30 RF: 3 ketorolac 10 mg tablet 10 mg PO TID PRN (Reason: pain) 5 Days Qty: 15 RF: 0 albuterol sulfate 90 mcg/actuation Hfa Aerosol Inhaler 2 puff INHALATION 6XD PRN (Reason: Shortness Of Breath) RF: 0 atorvastatin 20 mg tablet 30 mg PO DAILY@0800 RF: 0 clonidine HCl 0.1 mg tablet 0.1 mg PO BID@08,2099 RF: 0 fluticasone propionate [Flonase Allergy Relief] 50 mcg/actuation [place],Suspension 2 spray INTRANASAL DAILY PRN (Reason: Nasal Congestion) RF: 0 amlodipine 5 mg Tablet 5 mg PO DAILY@08 RF: 0 ropinirole 1 mg tablet 1 mg PO DAILY@2099 RF: 0 ferrous gluconate 324 mg (37.5 mg iron) Tablet 324 mg PO BIDWM 30 Days Qty: 60 RF: 0 Discharge Orders: Discharge ED (Routine); Ordered 12/10/20 Ordered By: Edil Lorenzo Referrals: Nancy Carrasco FNP-C [Primary Care Provider] - Discharge Diet: Usual diet Discharge Activity: Increase activity as tolerated Patient Instructions: Lumbar Radiculopathy (ED), Opioid Safety Activity Restrictions/Additional Instructions: Activity as tolerated. It is important to try to maintain normal activity as much as possible. Use a walker or cane to help with ambulation. Do gentle stretches and range of motion exercises for your back. Use ice or heat to the area for further discomfort. Drink plenty of water with medication. Follow-up with primary care for further instruction and recommendations of treatment. Return to the emergency department for new concerns. Coding Level of Care Code ED Automation Qa Tester for Leann Crowley Exam Comprehensive
[2020-12-10 18:37] VITALS: BP 214/92; PULSE 65; RESP 16; O2SAT 99
--- NOTE | 2020-12-10 18:45 | CTR_ITS ---
PROCEDURE INFORMATION: Exam: CT Lumbar Spine Without Contrast Exam date and time: 12/10/2020 7:08 PM Age: 65 years old Clinical indication: Low back pain; Prior surgery; Surgery type: Stents TECHNIQUE: Imaging protocol: Computed tomography images of the lumbar spine without contrast. Radiation optimization: All CT scans at this facility use at least one of these dose optimization techniques: automated exposure control; mA and/or kV adjustment per patient size (includes targeted exams where dose is matched to clinical indication); or iterative reconstruction. COMPARISON: CR XR lumbar spine f/e only [id number] 11/18/2020 2:29 PM RADIATION DOSE METRICS: Total DLP (mGy-cm): 783.94 FINDINGS: Vertebrae: Mild thoracolumbar dextroscoliosis. Chronic appearing 20% T12 anterior compression fracture. L1-L2: Mild degenerative disc disease and spondylosis. L2-L3: Mild to moderate degenerative disc disease and spondylosis. Mild posterior disc bulge. L3-L4: Moderate degenerative disc disease and spondylosis. Moderate posterior disc bulge. L4-L5: Severe degenerative disc disease and spondylosis. Moderate posterior disc bulge. L5-S1: Grade 1 anterior non-spondylitic spondylolisthesis of L5 on S1. Severe L5-S1 degenerative disc disease and spondylosis with Modic type III sclerotic endplate degenerative changes. Moderate left L5-S1 foraminal stenosis.Mild posterior central disc protrusion which creates minimal anterior impression upon the thecal sac. Severe bilateral facet degenerative change. Kidneys and ureters: Moderate left renal atrophy. Vasculature: Descending aorta endovascular stent. Aortic bilateral iliac artery endovascular stent. 3.4 cm fusiform infrarenal aortic aneurysm without rupture. Soft tissues: Unremarkable. CT/CT lumbar spine wo con* [id number] IMPRESSION: 1. Aortic bilateral iliac artery endovascular stent. 2. 3.4 cm fusiform infrarenal aortic aneurysm without rupture. 3. Moderate left renal atrophy. 4. Chronic appearing 20% T12 anterior compression fracture. 5. Multilevel degenerative changes including degenerative disc disease and/or spondylosis and/or facet degenerative changes with possible associated multilevel central spinal stenosis and/or lateral recess stenosis and/or foraminal stenosis as discussed above. Radiation Dose CTDIVOL = (mGy): DLP = 783.94 (mGy-cm)
[2020-12-10] MEDS: ondansetron 4 MG Tablet PO (18:49)
[2020-12-10 18:56] VITALS: RESP 16
[2020-12-10] MEDS: orphenadrine 30 mg/mL Inj 2 mL 60 MG IM (18:56)
[2020-12-10] MEDS: morphine 4 mg/mL SDV 1 mL IM (18:56)
[2020-12-10] MEDS: dexamethasone 10 mg/mL INJ IM (18:57)
== END 2020-12-10 21:22 | disposition home or self-care (01) ==
PROVIDERS: Emergency Provider Nurse Practitioner Family; PCP Nurse Practitioner Family
DX: M54.16 Radiculopathy, lumbar region (principal); Z79.82 Long term (current) use of aspirin; I13.0 Hypertensive heart and chronic kidney disease with heart failure and stage 1 through stage 4 chronic kidney disease, or unspecified chronic kidney disease; N18.30 Chronic kidney disease, stage 3 unspecified; I50.9 Heart failure, unspecified; J44.9 Chronic obstructive pulmonary disease, unspecified; Z87.891 Personal history of nicotine dependence
CPT/HCPCS: 72131; 96372; 99283; J1100; J2270; J2360; Q0162

== ENCOUNTER → 2020-12-11 11:37 | Outpatient (BNVA) | payer MEDICAID, SELFPAY | PROVIDERS: PCP Nurse Practitioner Family; Visit Provider Specialist | DX: G43.711 Chronic migraine without aura, intractable, with status migrainosus (principal); G24.3 Spasmodic torticollis; I71.4 Abdominal aortic aneurysm, without rupture; J44.9 Chronic obstructive pulmonary disease, unspecified; N18.30 Chronic kidney disease, stage 3 unspecified; Z87.891 Personal history of nicotine dependence | CPT/HCPCS: 99214 ==

== ENCOUNTER 2020-12-16 10:39 | Outpatient (CLI) | payer MEDICAID, SELFPAY ==
[2020-12-16 11:51] LABS: Basophils % 0.1 %; Hematocrit 35.1 % (37.0-47.0); Hemoglobin 11.4 g/dL (11.5-15.3); Lymphocytes # 0.5 10^3/uL (0.8-4.8); Lymphocytes % 7.7 %; Mean Corpuscular HGB Conc 32.5 g/dL (30.0-36.0); Mean Corpuscular Hemoglobin 29.2 pg (28.0-34.0); Mean Corpuscular Volume 89.8 fL (81-99); Mean Platelet Volume 8.9 fL (7.4-10.4); Monocytes # 0.3 10^3/uL (0.2-0.9); Monocytes % 3.9 %; Neutrophils # 6.01 10^3/uL (1.8-7.7); Neutrophils % 87.3 %; Nucleated Red Blood Cells % 0 %; Platelet Count 208 10^3/cmm (130-400); Red Blood Count 3.91 10^6/uL (4.1-5.3); Red Cell Distribution Width 16.6 % (12.1-15.1); White Blood Count 6.9 10^3/uL (4.0-10.0)
[2020-12-16 12:18] LABS: Ferritin 290 ng/mL (15-150); Iron 33 ug/dL (37-145); Percent Saturation 21.4 % (20-50); Total Iron Binding Capacity 154 mcg/dl; Unsaturated Iron Binding 121 ug/dL (112-347)
--- NOTE | 2020-12-16 17:21 | ONC FU_ITS ---
Dr. Ballesteros follow up note Patient: Hali James Unit #: [id number]: 1955 Dicatated By: Ade Ballesteros M.D.Date of Visit:Dec 16, 2020 Onc Med Follow-up/Prog Note History of Present Illness: Ms. Hali James, is a 65-year-old female with a history of anemia. As per patient, first time she was diagnosed with anemia was not 2014 or , at that time she was given oral iron supplement for 5 or 6 months with that anemia was resolved until recently when her routine lab work-up done on January 30, 2020 showed white blood count 3.4, hemoglobin 9.2 g hematocrit 27.9 platelets 171,000 MCV 85 and CMP showed creatinine 2, and anemia work-up including iron studies showed iron 53, iron saturation 29.2, TIBC 181 ferritin 113, bilirubin 0.2, stool for occult blood was negative Patient denies any history of blood transfusion, patient had colonoscopy done at age 62 it was unremarkable but not sure about EGD Patient has history of hysterectomy and bilateral oophorectomy at age 22 for incompetent cervix. Patient denies any jaundice, denies any melena or hematochezia, denies any hemoptysis or hematemesis, denies any night sweats, denies any abdominal fullness, denies any peripheral lymphadenopathy. Denies any bony pain denies any weight loss. Underwent bone marrow on April 17, 2020 showed trilineage hematopoiesis, and early/evolving dysplastic process cannot be entirely excluded. Marked decrease storage iron, no ring sideroblasts seen. No significant reticulin fibrosis. Also showed several small to intermediate sized paratrabecular and none paratrabecular lymphoid aggregate which comprises only 5 to 10% of the sample. Given the rare CD5 positive monotypic B-cell detected on flow cytometry, there was a concern for involvement of B-cell neoplasm CLL is possible but mantle cell lymphoma was not entirely ruled out, Flow cytometry, showed monotypic B-cell population, approximately 1%, is positive for CD19, CD20,'s CD5 and shows surface lambda light chain restriction. CD10 is negative so consistent with rare monotypic B-cell detected, phenotypically suggestive of CLL/small lymphocytic lymphoma and FISH for MDS also negative CT scan of chest abdomen pelvis done on July 07, 2020 showed no sign of mass or lymphadenopathy in the chest, but COPD No sign of mass or lymphadenopathy or acute process in abdomen or pelvis. 3.3 cm infrarenal abdominal aortic aneurysm which has been repaired with bifurcated stent. patient had her colonoscopy and EGD done when she was 62-year-old, at that time , Some polyps were removed and they were benign, she was told to get it repeated in 5 years. Patient has family history of colon cancer in brother and polyps in both mother and father. Status post iron dextran given on October 21, 2020 Came for follow-up, denies any specific complaint, no fever chills, no nausea or vomiting, no diarrhea constipation, no hemoptysis or hematemesis, no jaundice, no night sweats, no recurrent fevers, no peripheral lymphadenopathy., No shortness of breath or chest pain, no palpitations, tolerated IV dextran well otherwise . Medications: Albuterol Sulfate (sensor) 1 Puff(s) (of 108 (90 base) mcg/act) Aerosol Powder, Breath Activated Inhalation daily, amLODIPine Besylate 1 Tablet Oral daily, Aspirin 1 Tablet (of 81 mg) Tablet, enteric coated Oral daily, Atorvastatin Calcium 1 Tablet (of 30 mg) Oral daily, Budesonide-Formoterol Fumarate 1 Puff(s) (of 160-4.5 mcg/act) Aerosol Inhalation daily, Daliresp 1 Tablet (of 500 mcg) Oral daily, FLUoxetine HCl 1 Capsule (of 20 mg) Oral daily, Furosemide 1 Tablet (of 20 mg) Oral daily, hydrALAZINE HCl 1 Tablet (of 100 mg) Oral t.i.d., Irbesartan 1 Tablet (of 300 mg) Oral daily, Isosorbide Mononitrate ER 1 Tablet (of 30 mg) Tablet SR 24 HR Oral daily, Levothyroxine Sodium 1 Tablet (of 25 mcg) Oral daily, Metoprolol Succinate ER 1 Tablet (of 100 mg) Tablet SR 24 HR Oral b.i.d., Nitroglycerin 1 (0.4 mg) Tablet, sublingual Sublingual PRN, Omeprazole 1 Capsule (of 20 mg) Capsule Delayed Release Oral daily, rOPINIRole HCl 1 Tablet (of 1 mg) Oral daily, Spiriva Respimat 1 (1.25 mcg/act) Aerosol, solution Inhalation daily, traMADol HCl Tablet Oral PRN Allergies: Lisinopril and Sulfa Antibiotics. Review of Systems: Review of Systems is not available for this patient. Vital Signs: Performed on Dec 16, 2020 13:27 Height - 60.00 in Weight - 86.8 lbs (HIGH) BSA - 1.31 sq.m BMI - 16.95 (LOW) Temperature - 96.7 F (LOW) Pulse - 69 /min Respiration - 18 /min BP - 158/80 mm(hg) (HIGH) O2 Sat - 97 % Pain - 0 Fatigue - 10 Performance Status: 0 - Fully active, able to carry on all predisease activities without restrictions. (ECOG) Physical Examination: ENMT - No mouth sores, no thrush, no jaundice no cervical or bilateral axillary lymphadenopathy, Respiratory - Lungs are clear to auscultation, Cardiovascular - Regular rate and rhythm of heart, Abdomen - Soft, bowel sounds present, Extremities - No visible edema or rash. Lab/Imaging: Test performed on Oct 10, 2020 09:12 Ferritin 55 ng/mL Iron 35 mcg/dL LDH (Total) 184 U/L Sodium 133 mmol/L Iron Binding Capacity (TIBC) 199 mcg/dl Potassium 3.9 mmol/L % Iron Saturation 17.5 % Chloride 97 mmol/L CO2 27 mmol/L UIBC 164 mcg/dL Anion Gap 12.9 BUN 17 mg/dL Creatinine 1.1 mg/dL Cr Clearance (Est) 31.6700 mL/min eGFR 50.2 mL/min Glucose 96 mg/dL Osmolality - Calculated 277 mOsm/kg Calcium 8.8 mg/dL Protein, Total 6.6 g/dL Albumin 3.6 g/dL Globulin 3.0 g/dL Bilirubin, Total 0.2 mg/dL ALT (SGPT) 8 U/L AST (SGOT) 15 U/L Alkaline Phosphatase 82 IU/L WBC 4.2 10 3/uL RBC 3.66 10 6/uL HGB 10.1 g/dL HCT 32.3 % MCV 88.3 fL MCH 27.6 pg MCHC 31.3 g/dL RDW 15.6 % Platelet Count 212 10 3/cmm MPV 9.2 fL Neutrophils 1.60 10 3/uL Lymphocytes 2.2 10 3/uL Monocytes 0.3 10 3/uL Eosinophils 0.0 10 3/uL Basophils 0.0 10 3/uL Neutrophil % 38.6 % Lymphocyte % 52.6 % Monocyte % 7.9 % Eosinophil % 0.0 % Basophils % 0.7 % NRBC % 0 % Impression: Normocytic/normochromic anemia etiology unclear could be multifactorial including but not limited to anemia of renal disease, anemia of chronic disease, considering her age and concurrent leukopenia underlying myelodysplasia cannot be ruled out. Or due to minerals deficiency like copper or zinc or hypothyroidism. Underwent bone marrow evaluation on April 17, 2020 which showed markedly decreased storage iron, no ring sideroblasts seen. No significant fibrosis. Evolving/early MDS cannot be ruled out. 1% CD 5 positive monotypic B-cell with lambda light chain restriction was seen on flow cytometry, immunohistochemistry ruled out overt B-cell malignancy so this could be due to monoclonal B-cell lymphocytosis of undetermined significance. CT scan of chest abdomen pelvis done on July 07, 2020 showed no central lymphadenopathy or organomegaly Renal insufficiency COPD Plan: Discussed with patient regarding her labs white blood count 6.9 hemoglobin 11.4 g compared to 10.1 g prior to IV dextran, hematocrit 35.1 platelets 208,005 studies shows iron saturation 21.4% ferritin 290 iron 33 Clinically, patient is doing well with no new signs symptoms, tolerated IV dextran well, with that her hemoglobin has improved and today it is 11.4 g compared to 10.1 g prior to IV dextran, iron studies within normal range but on the lower side, at this point we will continue to monitor she return to clinic in 2 months with CBC and iron studies if there is a drop in her iron stores or hemoglobin, may consider repeating colonoscopy and EGD to rule out source of chronic blood loss if negative, may consider capsule endoscopy to rule out small bowel AVMs. Signed By: Ade Ballesteros M.D. <<Signature on File>>
== END 2020-12-16 10:40 | disposition home or self-care (01) ==
LOC: ONCMED 10:41
PROVIDERS: PCP Nurse Practitioner Family; Visit Provider Internal Medicine Hematology & Oncology
DX: D64.9 Anemia, unspecified (principal); J44.9 Chronic obstructive pulmonary disease, unspecified; N28.9 Disorder of kidney and ureter, unspecified; Z79.899 Other long term (current) drug therapy
CPT/HCPCS: 36415; 82728; 83540; 83550; 85025; 99214

== ENCOUNTER → 2020-12-22 13:24 | Outpatient (BNVA) | payer MEDICAID, SELFPAY | PROVIDERS: PCP Nurse Practitioner Family; Visit Provider Nurse Practitioner | DX: N18.30 Chronic kidney disease, stage 3 unspecified (principal) | CPT/HCPCS: 80069; 82043; 82310; 83970 ==

== ENCOUNTER → 2020-12-25 09:30 | Outpatient (BNVA) | payer MEDICAID, SELFPAY | PROVIDERS: PCP Nurse Practitioner Family; Referring Provider Orthopaedic Surgery; Visit Provider Anesthesiology Pain Medicine | DX: G89.29 Other chronic pain (principal); M51.16 Intervertebral disc disorders with radiculopathy, lumbar region; M47.816 Spondylosis without myelopathy or radiculopathy, lumbar region; M54.9 Dorsalgia, unspecified; M50.90 Cervical disc disorder, unspecified, unspecified cervical region; M47.812 Spondylosis without myelopathy or radiculopathy, cervical region; Z79.891 Long term (current) use of opiate analgesic; Z87.891 Personal history of nicotine dependence | CPT/HCPCS: 99205 ==

== ENCOUNTER → 2021-01-20 13:33 | Outpatient (BNVA) | payer MEDICAID, SELFPAY | PROVIDERS: PCP Nurse Practitioner; Visit Provider Psychiatry & Neurology Psychiatry | DX: F33.2 Major depressive disorder, recurrent severe without psychotic features (principal); F41.1 Generalized anxiety disorder | CPT/HCPCS: 99204 ==

== ENCOUNTER 2021-01-28 14:49 | Outpatient (CLI) | payer MEDICAID, SELFPAY ==
--- NOTE | 2021-01-28 14:54 | MM_ITS ---
WS: [id number] BILATERAL DIGITAL SCREENING MAMMOGRAPHY WITH CAD CLINICAL INFORMATION: SCREENING HISTORY: Screening mammogram. No current complaints. COMPARISON: December 24, 2019 TECHNIQUE: Bilateral CC and MLO views. FINDINGS: Scattered fibroglandular densities bilaterally. No suspicious focal mass, asymmetry, calcifications, or architectural distortion. No evidence of malignancy. Tiny punctate calcification left breast. MM/[place] [id number] IMPRESSION: BI-RADS: 2-Benign FOLLOW UP: 1 Year Follow-up Recommend return to annual screening mammography.
== END 2021-01-28 14:50 | disposition home or self-care (01) ==
LOC: RADSHAW 14:52
PROVIDERS: PCP Nurse Practitioner; Visit Provider Nurse Practitioner Family
DX: Z12.31 Encounter for screening mammogram for malignant neoplasm of breast (principal)
CPT/HCPCS: 77067

== ENCOUNTER → 2021-02-10 10:11 | Outpatient (BNVA) | payer MEDICAID, SELFPAY | PROVIDERS: PCP Nurse Practitioner; Visit Provider Nurse Practitioner Family | DX: Z20.822 Contact with and (suspected) exposure to COVID-19 (principal) | CPT/HCPCS: 87635 ==

== ENCOUNTER 2021-02-13 08:08 | Outpatient (CLI) | payer MEDICAID, SELFPAY ==
[2021-02-13 08:33] VITALS: PULSE 79; RESP 18; TEMP 36.7; O2SAT 99
[2021-02-13 10:11] VITALS: BP 175/101; PULSE 67; RESP 18; TEMP 36.4; O2SAT 97
== END 2021-02-13 13:03 | disposition home or self-care (01) ==
PROVIDERS: PCP Nurse Practitioner; Visit Provider Nurse Practitioner
DX: U07.1 COVID-19 (principal)
CPT/HCPCS: 96365

== ENCOUNTER → 2021-02-27 09:21 | Outpatient (BNVA) | payer MEDICAID, SELFPAY | PROVIDERS: PCP Nurse Practitioner; Visit Provider Anesthesiology Pain Medicine | DX: G89.29 Other chronic pain (principal); M51.16 Intervertebral disc disorders with radiculopathy, lumbar region; M47.816 Spondylosis without myelopathy or radiculopathy, lumbar region; M50.90 Cervical disc disorder, unspecified, unspecified cervical region; M47.812 Spondylosis without myelopathy or radiculopathy, cervical region | CPT/HCPCS: 99214 ==

== ENCOUNTER → 2021-03-03 12:51 | Outpatient (BNVA) | payer MEDICAID, SELFPAY | PROVIDERS: PCP Nurse Practitioner Family; Visit Provider Anesthesiology Pain Medicine | DX: G89.29 Other chronic pain (principal); M54.16 Radiculopathy, lumbar region; M54.2 Cervicalgia | CPT/HCPCS: 64483; 64484; J1100; J3490 ==

== ENCOUNTER 2021-03-13 08:35 | Outpatient (CLI) | payer MEDICAID, SELFPAY ==
--- NOTE | 2021-03-13 08:45 | USCV_ITS ---
Hali James Age: 65 Gender: F : 1955 Exam Date: 03/13/2021 08:55 Ordering Phys: Edil Hill MD (Andy) ([email or web address] [place] Technologist: Yoanna Kimbrough Exam Location: [facility] Indication: HISTORY: Diameter (cm) AP x Transverse x Length Velocity (cm/s) Waveform Prox Aorta: 1.78 x 1.92 x 52.10 Mid Aorta: x x Distal Aorta: x x Right Iliac Prox: 0.82 x 1.02 x Left Iliac Prox: 0.84 x 0.98 x Stent Prox Landing 1.40 x 1.36 x 96.70 Aneurysmal Sac Max 2.62 x 2.83 x 6.37 Lt Lat Sac Dim Rt Lat Sac Dim Stent Dist Landing x 90.90 x Right Iliac Stent x x 57.00 Left Iliac Stent 50.40 x x Right Renal Art 54.50 Left Renal Art FINDINGS: Technically difficult study because of the poor ultrasonic window. Proximal aorta measures 1.78 x 1.92 cm. External diameter of the aneurysmal sac was 2.62 x 2.83 cm. Normal Doppler flow signals in the aortic stent graft The proximal landing zone measured 1.4 x 1.36 cm CONCLUSIONS 1. Patent aortic stent graft 2. Maximal diameter of the aneurysmal sac measured 2.62 x 2.83 cm. 3. Normal proximal common iliac artery dimensions 4. No evidence of endoleak based on the color flow Doppler exam. Technically difficult study because of poor ultrasonic window. Compared to the study from 08/01/2020, the aneurysm sac appears to be shrinking in size. Consider CTA, if clinically indicated Dr Guillermo Culver MD [facility] (Electronically Signed) Final Date: 17 March 2021 10:12 S
== END 2021-03-13 08:36 | disposition home or self-care (01) ==
PROVIDERS: PCP Nurse Practitioner Family; Visit Provider Thoracic Surgery (Cardiothoracic Vascular Surgery)
DX: I71.4 Abdominal aortic aneurysm, without rupture (principal)
CPT/HCPCS: 93978

== ENCOUNTER 2021-03-17 14:21 | Outpatient (CLI) | payer MEDICAID, SELFPAY ==
[2021-03-17 15:17] LABS: Basophils % 0.6 %; Hematocrit 36.3 % (37.0-47.0); Hemoglobin 12.2 g/dL (11.5-15.3); Lymphocytes # 1.8 10^3/uL (0.8-4.8); Lymphocytes % 36.3 %; Mean Corpuscular HGB Conc 33.6 g/dL (30.0-36.0); Mean Corpuscular Hemoglobin 30.3 pg (28.0-34.0); Mean Corpuscular Volume 90.3 fl (81-99); Mean Platelet Volume 8.7 fL (7.4-10.4); Monocytes # 0.4 10^3/uL (0.2-0.9); Monocytes % 7.2 %; Neutrophils # 2.79 10^3/uL (1.8-7.7); Neutrophils % 55.7 %; Nucleated Red Blood Cells % 0 %; Platelet Count 173 10^3/cmm (130-400); Red Blood Count 4.02 10^6/uL (4.1-5.3); Red Cell Distribution Width 13.2 % (12.1-15.1)
[2021-03-17 15:56] LABS: Ferritin 256 ng/mL (15-150); Iron 81 ug/dL (37-145); Percent Saturation 46.5 % (20-50); Total Iron Binding Capacity 174 mcg/dl; Unsaturated Iron Binding 93 ug/dL (112-347)
--- NOTE | 2021-03-17 16:40 | ONC FU_ITS ---
Dr. Ballesteros follow up note Patient: Hali James Unit #: [id number]: 1955 Dicatated By: Ade Ballesteros M.D.Date of Visit:Mar 17, 2021 Onc Med Follow-up/Prog Note History of Present Illness: Ms. Hali James, is a 65-year-old female with a history of anemia. As per patient, first time she was diagnosed with anemia was not 2014 or , at that time she was given oral iron supplement for 5 or 6 months with that anemia was resolved until recently when her routine lab work-up done on January 30, 2020 showed white blood count 3.4, hemoglobin 9.2 g hematocrit 27.9 platelets 171,000 MCV 85 and CMP showed creatinine 2, and anemia work-up including iron studies showed iron 53, iron saturation 29.2, TIBC 181 ferritin 113, bilirubin 0.2, stool for occult blood was negative Patient denies any history of blood transfusion, patient had colonoscopy done at age 62 it was unremarkable but not sure about EGD Patient has history of hysterectomy and bilateral oophorectomy at age 22 for incompetent cervix. Patient denies any jaundice, denies any melena or hematochezia, denies any hemoptysis or hematemesis, denies any night sweats, denies any abdominal fullness, denies any peripheral lymphadenopathy. Denies any bony pain denies any weight loss. Underwent bone marrow on April 17, 2020 showed trilineage hematopoiesis, and early/evolving dysplastic process cannot be entirely excluded. Marked decrease storage iron, no ring sideroblasts seen. No significant reticulin fibrosis. Also showed several small to intermediate sized paratrabecular and none paratrabecular lymphoid aggregate which comprises only 5 to 10% of the sample. Given the rare CD5 positive monotypic B-cell detected on flow cytometry, there was a concern for involvement of B-cell neoplasm CLL is possible but mantle cell lymphoma was not entirely ruled out, Flow cytometry, showed monotypic B-cell population, approximately 1%, is positive for CD19, CD20,'s CD5 and shows surface lambda light chain restriction. CD10 is negative so consistent with rare monotypic B-cell detected, phenotypically suggestive of CLL/small lymphocytic lymphoma and FISH for MDS also negative CT scan of chest abdomen pelvis done on July 07, 2020 showed no sign of mass or lymphadenopathy in the chest, but COPD No sign of mass or lymphadenopathy or acute process in abdomen or pelvis. 3.3 cm infrarenal abdominal aortic aneurysm which has been repaired with bifurcated stent. patient had her colonoscopy and EGD done when she was 62-year-old, at that time , Some polyps were removed and they were benign, she was told to get it repeated in 5 years. Patient has family history of colon cancer in brother and polyps in both mother and father. Status post iron dextran given on October 21, 2020 Came for follow-up, denies any specific complaints, no fever chills, no nausea or vomiting, no diarrhea or constipation, no melena or hematochezia no hemoptysis hematemesis, no shortness of breath or dyspnea on exertion. . Medications: Albuterol Sulfate (sensor) 1 Puff(s) (of 108 (90 base) mcg/act) Aerosol Powder, Breath Activated Inhalation daily, amLODIPine Besylate 1 Tablet Oral daily, Aspirin 1 Tablet (of 81 mg) Tablet, enteric coated Oral daily, Atorvastatin Calcium 1 Tablet (of 30 mg) Oral daily, Budesonide-Formoterol Fumarate 1 Puff(s) (of 160-4.5 mcg/act) Aerosol Inhalation daily, busPIRone HCl 1 Tablet (of 5 mg) Oral t.i.d., Daliresp 1 Tablet (of 500 mcg) Oral daily, FLUoxetine HCl 1 Capsule (of 20 mg) Oral daily, Furosemide 1 Tablet (of 20 mg) Oral daily, hydrALAZINE HCl 1 Tablet (of 100 mg) Oral t.i.d., hydrOXYzine Pamoate 1 Tablet (of 50 mg) Capsule Oral four times a day PRN, Irbesartan 1 Tablet (of 300 mg) Oral daily, Isosorbide Mononitrate ER 1 Tablet (of 30 mg) Tablet SR 24 HR Oral daily, Levothyroxine Sodium 1 Tablet (of 25 mcg) Oral daily, Metoprolol Succinate ER 1 Tablet (of 100 mg) Tablet SR 24 HR Oral b.i.d., Nitroglycerin 1 (0.4 mg) Tablet, sublingual Sublingual PRN, Omeprazole 1 Capsule (of 20 mg) Capsule Delayed Release Oral daily, rOPINIRole HCl 1 Tablet (of 1 mg) Oral daily, Spiriva Respimat 1 (1.25 mcg/act) Aerosol, solution Inhalation daily, traMADol HCl Tablet Oral PRN Allergies: Lisinopril and Sulfa Antibiotics. Review of Systems: Review of Systems is not available for this patient. Vital Signs: Performed on Mar 17, 2021 16:19 Height - 60.00 in Weight - 93.8 lbs (HIGH) BSA - 1.35 sq.m BMI - 18.32 Temperature - 97.7 F (LOW) Pulse - 72 /min Respiration - 18 /min BP - 185/86 mm(hg) (HIGH) O2 Sat - 94 % (LOW) Pain - 5 Fatigue - 5 Performance Status: 0 - Fully active, able to carry on all predisease activities without restrictions. (ECOG) Physical Examination: ENMT - No mouth sores, no thrush, no jaundice, Respiratory - Lungs are clear to auscultation, Cardiovascular - Regular rate and rhythm of heart, Abdomen - Soft, bowel sounds present, Extremities - No visible edema. Lab/Imaging: Test performed on Oct 10, 2020 09:12 Ferritin 55 ng/mL Iron 35 mcg/dL LDH (Total) 184 U/L Sodium 133 mmol/L Iron Binding Capacity (TIBC) 199 mcg/dl Potassium 3.9 mmol/L % Iron Saturation 17.5 % Chloride 97 mmol/L CO2 27 mmol/L UIBC 164 mcg/dL Anion Gap 12.9 BUN 17 mg/dL Creatinine 1.1 mg/dL Cr Clearance (Est) 31.6700 mL/min eGFR 50.2 mL/min Glucose 96 mg/dL Osmolality - Calculated 277 mOsm/kg Calcium 8.8 mg/dL Protein, Total 6.6 g/dL Albumin 3.6 g/dL Globulin 3.0 g/dL Bilirubin, Total 0.2 mg/dL ALT (SGPT) 8 U/L AST (SGOT) 15 U/L Alkaline Phosphatase 82 IU/L WBC 4.2 10 3/uL RBC 3.66 10 6/uL HGB 10.1 g/dL HCT 32.3 % MCV 88.3 fL MCH 27.6 pg MCHC 31.3 g/dL RDW 15.6 % Platelet Count 212 10 3/cmm MPV 9.2 fL Neutrophils 1.60 10 3/uL Lymphocytes 2.2 10 3/uL Monocytes 0.3 10 3/uL Eosinophils 0.0 10 3/uL Basophils 0.0 10 3/uL Neutrophil % 38.6 % Lymphocyte % 52.6 % Monocyte % 7.9 % Eosinophil % 0.0 % Basophils % 0.7 % NRBC % 0 % Impression: Normocytic/normochromic anemia etiology unclear could be multifactorial including but not limited to anemia of renal disease, anemia of chronic disease, considering her age and concurrent leukopenia underlying myelodysplasia cannot be ruled out. Or due to minerals deficiency like copper or zinc or hypothyroidism. Underwent bone marrow evaluation on April 17, 2020 which showed markedly decreased storage iron, no ring sideroblasts seen. No significant fibrosis. Evolving/early MDS cannot be ruled out. 1% CD 5 positive monotypic B-cell with lambda light chain restriction was seen on flow cytometry, immunohistochemistry ruled out overt B-cell malignancy so this could be due to monoclonal B-cell lymphocytosis of undetermined significance. CT scan of chest abdomen pelvis done on July 07, 2020 showed no central lymphadenopathy or organomegaly Renal insufficiency COPD Plan: Discussed with patient regarding her labs white blood count 5 hemoglobin 12.2 hematocrit 36.3 platelets 173,000 iron studies shows iron saturation of 46.5% ferritin 256 iron 81 Clinically, patient doing well with no new signs symptoms, her follow-up lab work-up shows improvement in her hemoglobin and iron studies shows adequate iron stores, will continue to monitor return to clinic in 3 months with CBC and iron studies. Signed By: Ade Ballesteros M.D. <<Signature on File>>
== END 2021-03-17 14:22 | disposition home or self-care (01) ==
LOC: ONCMED 14:25
PROVIDERS: PCP Nurse Practitioner Family; Visit Provider Internal Medicine Hematology & Oncology
DX: D64.9 Anemia, unspecified (principal); E61.1 Iron deficiency; N28.9 Disorder of kidney and ureter, unspecified; J44.9 Chronic obstructive pulmonary disease, unspecified; Z79.899 Other long term (current) drug therapy
CPT/HCPCS: 36415; 82728; 83540; 83550; 85025; 99214

== ENCOUNTER → 2021-03-18 11:11 | Outpatient (BNVA) | payer MEDICAID, SELFPAY | PROVIDERS: PCP Nurse Practitioner Family; Visit Provider Anesthesiology Pain Medicine | DX: G89.29 Other chronic pain (principal); M50.90 Cervical disc disorder, unspecified, unspecified cervical region; M47.812 Spondylosis without myelopathy or radiculopathy, cervical region; M47.816 Spondylosis without myelopathy or radiculopathy, lumbar region; M51.16 Intervertebral disc disorders with radiculopathy, lumbar region; M51.17 Intervertebral disc disorders with radiculopathy, lumbosacral region; M79.604 Pain in right leg; M79.605 Pain in left leg | CPT/HCPCS: 99214 ==

== ENCOUNTER → 2021-03-30 14:11 | Outpatient (BNVA) | payer MEDICAID, SELFPAY | PROVIDERS: PCP Nurse Practitioner; Visit Provider Anesthesiology Pain Medicine | DX: G89.29 Other chronic pain (principal); M47.816 Spondylosis without myelopathy or radiculopathy, lumbar region; M54.2 Cervicalgia | CPT/HCPCS: 64493; 64494; 64495; J3490 ==

== ENCOUNTER → 2021-04-14 10:00 | Outpatient (BNVA) | payer MEDICAID, SELFPAY | PROVIDERS: PCP Nurse Practitioner; Visit Provider Anesthesiology Pain Medicine | DX: G89.29 Other chronic pain (principal); M47.816 Spondylosis without myelopathy or radiculopathy, lumbar region; M51.16 Intervertebral disc disorders with radiculopathy, lumbar region; M50.90 Cervical disc disorder, unspecified, unspecified cervical region; M47.812 Spondylosis without myelopathy or radiculopathy, cervical region; M79.601 Pain in right arm; M79.602 Pain in left arm; M79.604 Pain in right leg; M79.605 Pain in left leg | CPT/HCPCS: 99214 ==

== ENCOUNTER 2021-05-05 14:11 | Outpatient (CLI) | payer MEDICAID, SELFPAY ==
[2021-05-05 14:41] LABS: Blood Urea Nitrogen 23 mg/dL (8-23); Glomerular Filtration Rate 45.4 mL/min (90-130)
[2021-05-05] MEDS: iodixanol 320 mg/mL 100mL Btl IV (14:51)
--- NOTE | 2021-05-05 15:00 | CT_ITS ---
WS: [id number] CTA OF THE CHEST WITH PULMONARY EMBOLISM PROTOCOL TECHNIQUE: High-resolution contrast enhanced CTA of the chest with coronal and sagittal reformatted i mages with pulmonary embolism protocol. MIP images are also reviewed. CLINICAL INFORMATION: Shortness of breath COMPARISON: November 25, 2020 DLP: 733.[address] scans at [facility] use at least one of these dose optimization techniques: automated e xposure control; mA and/or kV adjustment per patient size (includes targeted exams where dose is matc hed to clinical indication); or iterative reconstruction. FINDINGS: Proximal main pulmonary arteries are normal. Normal segmental and subsegmental pulmonary arteries. No evidence for pulmonary embolus. Moderate chronic emphysematous changes. No acute pulmonary infiltrates. Previously described wedge-sh aped opacity in the left lower lobe with pleural thickening has resolved. No mediastinal or hilar lymphadenopathy. No axillary lymphadenopathy. Aortic endograft partially visu alized in the upper abdomen. Right renal stent. Adrenal glands are normal. Left renal atrophy. Stable 1.1 cm lesion upper pole left kidney. CT/CT angio chest PE protcl [id number] IMPRESSION: 1. Proximal main pulmonary arteries are normal. No evidence of pulmonary embol us. 2. No mediastinal or hilar lymphadenopathy. 3. Previously described infiltrate left lower lobe has resolved. 4. No suspicious pulmonary opacities today. 5. Partially visualized endograft in the upper abdomen. 6. Partial evaluated lesion upper pole left kidney is stable. This was demonst rated to represent a complex cyst on the prior ultrasound. Recommend continued surveillance.
== END 2021-05-05 14:12 | disposition home or self-care (01) ==
PROVIDERS: PCP Nurse Practitioner; Visit Provider Internal Medicine Critical Care Medicine
DX: R06.02 Shortness of breath (principal)
CPT/HCPCS: 71275; 82565; 84520; Q9967

== ENCOUNTER → 2021-05-11 13:57 | Outpatient (BNVA) | payer MEDICAID, SELFPAY | PROVIDERS: PCP Nurse Practitioner Family; Visit Provider Anesthesiology Pain Medicine | DX: G89.29 Other chronic pain (principal); M47.816 Spondylosis without myelopathy or radiculopathy, lumbar region; M54.16 Radiculopathy, lumbar region; Z87.891 Personal history of nicotine dependence | CPT/HCPCS: 64635; 64636; J1030 ==

== ENCOUNTER 2021-06-13 18:33 | Emergency (ER) | payer MEDICAID, SELFPAY ==
[2021-06-13 18:57] VITALS: BP 108/65; PULSE 76; RESP 16; TEMP 36.8; O2SAT 100
--- NOTE | 2021-06-13 19:06 | XRR_ITS ---
PROCEDURE INFORMATION: Exam: XR Chest Exam date and time: 06/13/2021 7:06 PM Age: 66 years old Clinical indication: Chest wall pain; Additional info: Cp SOB TECHNIQUE: Imaging protocol: XR of the chest. Views: 1 view. Total images: 1 COMPARISON: CT angio chest PE protcl [id number] 05/05/2021 2:44 PM FINDINGS: Lungs: No visible active interstitial or alveolar airspace disease. Centrilobular emphysema with COPD/chronic bronchitis. Pleural spaces: No pleural effusion. No pneumothorax. Heart/Mediastinum: Cardiac structures in configuration with arteriosclerosis. Vasculature: Distal thoracic aortic stent. Bones/joints: Unremarkable for age. XR/XR chest 1V portable [id number] IMPRESSION: Nonacute. Radiation Dose CTDIVOL = (mGy): DLP = (mGy-cm)
[2021-06-13 19:07] VITALS: BP 103/60; PULSE 74; RESP 18; TEMP 37.1; O2SAT 98; BMI 18.5
--- NOTE | 2021-06-13 19:12 | ECG_ITS ---
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 Measurements Intervals Winter Rate: 67 P: 86 GA: 149 QRS: 85 QRSD: 75 T: 89 QT: 429 QTc: 456 Interpretive Statements SINUS RHYTHM MINIMAL ST DEPRESSION [0.025+ mV ST DEPRESSION] Compared to ECG 11/25/2020 18:48:32 ST (T wave) deviation now present Myocardial infarct finding no longer present Electronically Signed On 06-14-2021 13:17:13 CORROSION ENGINEER by Victor Hugo Gonzalez M.D. [email or web address]
--- NOTE | 2021-06-13 19:14 | ED_ITS ---
HPI - SOB/Dyspnea General: Chief Complaint: Shortness of Breath/Dyspnea Stated Complaint: CHEST WALL PAIN Time Seen by Provider: 06/13/21 18:41 History of Present Illness: HPI Narrative: 66-year-old female with a history of COPD complains of bilateral flank pain worsening with cough and inspiration. She has had some sputum production that is green as well. She has been sick the last 2 days. No known Covid exposure. She has had all 3 of her vaccines. MD elicited complaint: shortness of breath, cough, pain with inspiration and chest pain Pertinent past history: COPD Onset (ago): day(s) (2) Timing: constant and progressively worsening Severity: moderate Exacerbating factors: lying flat and exertion Relieving factors: oxygen Known history of: COPD Associated symptoms: Reports chest congestion, chest pain, cough and nausea; Deny abdominal pain, diaphoresis, dizziness, extremity pain, fever(s), hemoptysis, palpitations or vomiting Treatment prior to arrival: oxygen Review of Systems Const: Denies: fever(s) or diaphoresis Card: Reports: chest pain; Denies: palpitations Resp: Reports: chest congestion; Denies: hemoptysis GI: Reports: nausea; Denies: abdominal pain or vomiting Musc: Denies: extremity pain Neuro: Denies: dizziness PFSH ED PFSH: Medical History AAA (abdominal aortic aneurysm) 4.1 x 4.4 x 5.7 cm 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 Anemia Atypical chest pain Brain aneurysm Chronic kidney disease CKD stage III, solitary kidney Chronic migraine without aura, intractable, with status migrainosus Congestive heart failure COPD (chronic obstructive pulmonary disease) Depression Endoleak post (EVAR) endovascular aneurysm repair GERD (gastroesophageal reflux disease) History of stent insertion of renal artery Hypercholesteremia Hypertension Hypertensive urgency Resolved Hypothyroidism Inguinal swelling Normal colonoscopy Osteoporosis Peripheral vascular disease Psychiatric care Restless leg Solitary kidney Surgical History H/O: hysterectomy History of renal stent Herculink stent History of repair of aneurysm of abdominal aorta using endovascular stent graft Hx of tonsillectomy S/P appendectomy Family History Mother CAD (coronary artery disease) Chronic kidney disease (CKD) Dementia Stroke Father CAD (coronary artery disease) Cancer Diabetes Brother CAD (coronary artery disease) Cancer Lung disease Grandfather Cancer Grandmother Diabetes Family/Other Lung disease Suicide Other Hypertension Denies family history of Clotting disorder Anesthesia complication Bleeding disorder Social History (Updated 05/11/21 @ 14:10 by Sharon Bryant LPN) Smoking and tobacco status: former smoker Quit status (tobacco): has quit using tobacco Year quit tobacco: 2005 - PPD x 35 Years Second hand smoke exposure: No Smoking risk assessment/counseling performed?: No Alcohol intake: never Desire information about alcohol rehabilitation?: No Counseling given: No Adopted: No Caregiver/support person: No Lives independently: Yes Household members: family and children Housing: House Marital status: / Marital status details: 2005 Number of children: 12 Number of grandchildren: 4 Highest education level completed: Master's Degree Education level details: Criminal Justice service: No Current occupational status: disabled Current occupational exposures/hazards: No Pets and animals: Yes Pets & animals: cat(s), dog(s) and farm animals Farm Animals: cattle History of recent travel: No Leisure activites: reading and other Leisure activities details: watch TV Sexually active: No Current gender identity: Female Yudy/Confucianist: Voodoo [employer] Special yudy needs: No Agree to transfusion: Yes Financial difficulty paying for basics: Somewhat Hard Female Reproductive History: Date of last menstrual period: 10/21/20 Para: 0 Spontaneous abortions: Yes Physical Exam Const: GENERAL APPEARANCE: cooperative, ill appearing and frail appearing HENMT: COMMON NORMALS: normocephalic and atraumatic HEAD & SCALP: normocephalic and atraumatic Eye: COMMON NORMALS: Equal, round and reactive pupils present and EOMs intact bilaterally PUPIL: Yes Equal, round and reactive pupils present Chest: COMMONS NORMALS: normal inspection of the chest CHEST: Yes tenderness (posterior) Resp: COMMON NORMALS: normal respiratory effort, No retractions and clear to auscultation bilaterally AUSCULTATION: clear to auscultation bilaterally Cardio: COMMON NORMALS: regular rate and regular rhythm RATE: regular rate RHYTHM: regular rhythm GI: COMMON NORMALS: Normal to inspection, nondistended, normoactive bowel sounds present, Soft to palpation and non-tender PALPATION: Yes Soft to palpation Extremity: COMMON NORMALS: no pedal edema Course Vital Signs: Vital signs: Vital Signs Temperature 98.7 F 06/13/21 19:07 Pulse Rate 80 06/14/21 00:51 Respiratory Rate 22 H 06/14/21 00:51 Blood Pressure 122/78 06/14/21 00:51 Pulse Oximetry 97 06/14/21 00:51 MDM - SOB/Dyspnea MDM Narrative: Medical decision making narrative: 66-year-old female with history of COPD presents with bilateral pleuritic type chest pain and cough with sputum production. Her rapid Covid is negative. White blood cell count is 11. Creatinine is 1.4. Hemoglobin is 11. D-dimer was significantly elevated. CTA shows bronchial inflammation without consolidative pneumonia or pneumonitis. She will be treated for an acute exacerbation of COPD her oxygen saturations remained normal on her home O2 settings here. Troponin did not elevate significantly at 2 hours. EKG showed no acute ST changes Lab Data: Labs: Lab Results 06/13/21 06/13/21 06/13/21 19:06 19:25 19:25 WBC 11.1 10^3/uL H 10 ^3/uL (4.0-10.0) RBC 3.93 10^6/uL L 10 ^6/uL (4.1-5.3) Hgb 11.3 g/dL L g/dL (11.5-15.3) Hct 33.4 % L % (37.0-47.0) MCV 85.0 fl fl (81-99) MCH 28.8 pg pg (28.0-34.0) MCHC 33.8 g/dL g/dL (30.0-36.0) RDW 12.6 % % (12.1-15.1) Plt Count 167 10^3/cmm 10^3 /cmm (130-400) MPV 9.4 fL fL (7.4-10.4) Neut % (Auto) 77.2 % % Lymph % (Auto) 14.8 % % Schleicher % (Auto) 6.3 % % Eos % (Auto) 0.9 % % Baso % (Auto) 0.4 % % Neut # (Auto) 8.58 10^3/uL H 10 ^3/uL (1.8-7.7) Lymph # (Auto) 1.7 10^3/uL 10^3/ uL (0.8-4.8) Schleicher # (Auto) 0.7 10^3/uL 10^3/ uL (0.2-0.9) Eos # (Auto) 0.1 10^3/uL 10^3/ uL (0.0-0.8) Baso # (Auto) 0.0 10^3/uL 10^3/ uL (0.0-0.1) Nucleated RBC % (a uto) 0 % % Nucleated RBCs # 0.0 /100WBC /100W BC D-Dimer 3.15 ug/mIFEU H u g/mIFEU (0-0.59) Specimen Type Arterial Sample Site Radial, right ABG pH 7.37 (7.35-7.45) ABG pCO2 36.5 mmHg mmHg (35-45) ABG pO2 106.0 mmHg H mmHg (80.0-100.0) ABG HCO3 20.8 mmol/L L mmo l/L (22-26) ABG Base Excess -4.0 mmol/L L mmo l/L (-2.0-2.0) Roly Test Pos Hematocrit 34.7 % L % (37-47) Hgb O2 Saturation 96.5 % % (95-100) Carboxyhemoglobin 0.8 %THgb %THgb (0.4-20.1) Methemoglobin 1.0 % % (0.4-1.5) Total Hemoglobin 11.3 g/dL L g/dL (12-16) O2 Delivery Device Nc O2 Liters/Min 3.0 % % Cloth Hand ID [id number] Sodium Potassium Chloride Carbon Dioxide Anion Gap BUN Creatinine GFR Calculation Glucose Calculated Osmolal ity Lactic Acid Calcium Total Bilirubin AST ALT Alkaline Phosphata se Troponin T Baselin e Troponin T 120 Min [place] Troponin T C-Reactive Protein NT-Pro-B Natriuret Pep Total Protein Albumin Globulin Procalcitonin Influenza Type A A g Influenza Type B A g SARS-CoV-2 Ag (Rap id) 06/13/21 06/13/21 06/13/21 19:25 19:25 19:25 WBC RBC Hgb Hct MCV MCH MCHC RDW Plt Count MPV Neut % (Auto) Lymph % (Auto) Schleicher % (Auto) Eos % (Auto) Baso % (Auto) Neut # (Auto) Lymph # (Auto) Schleicher # (Auto) Eos # (Auto) Baso # (Auto) Nucleated RBC % (a uto) Nucleated RBCs # D-Dimer Specimen Type Sample Site ABG pH ABG pCO2 ABG pO2 ABG HCO3 ABG Base Excess Roly Test Hematocrit Hgb O2 Saturation Carboxyhemoglobin Methemoglobin Total Hemoglobin O2 Delivery Device O2 Liters/Min Cloth Hand ID Sodium 128 mmol/L L mmol /L (136-145) Potassium 4.1 mmol/L mmol/L (3.5-5.1) Chloride 94 mmol/L L mmol/ L (98-107) Carbon Dioxide 18 mmol/L L mmol/ L (22-29) Anion Gap 20.1 H (5-19) BUN 24 mg/dL H mg/dL (8-23) Creatinine 1.4 mg/dL H mg/dL (0.5-0.9) GFR Calculation 37.9 mL/min L mL/ min (90-130) Glucose 122 mg/dL H mg/dL (65-115) Calculated Osmolal ity 271 mOsm/kg L mOs m/kg (285-295) Lactic Acid 1.1 mmol/L mmol/L (0.5-2.2) Calcium 8.4 mg/dL L mg/dL (8.5-10.5) Total Bilirubin 0.3 mg/dL mg/dL (0.15-1.2) AST 15 U/L U/L (0-32) ALT 8 U/L U/L (0-33) Alkaline Phosphata se 84 IU/L IU/L (35-105) Troponin T Baselin e 21 ng/L H ng/L (0-10) Troponin T 120 Min [place] Troponin T C-Reactive Protein 298.1 mg/L H mg/L (0.0-4.9) NT-Pro-B Natriuret Pep 1451 pg/mL H pg/m L (0-125) Total Protein 6.4 g/dL L g/dL (6.6-8.7) Albumin 3.3 g/dL L g/dL (3.5-5.2) Globulin 3.1 g/dL g/dL (1.3-4.6) Procalcitonin 1.53 ng/mL H ng/m L (0-0.5) Influenza Type A A g Influenza Type B A g SARS-CoV-2 Ag (Rap id) 06/13/21 06/13/21 06/13/21 19:25 19:25 21:28 WBC RBC Hgb Hct MCV MCH MCHC RDW Plt Count MPV Neut % (Auto) Lymph % (Auto) Schleicher % (Auto) Eos % (Auto) Baso % (Auto) Neut # (Auto) Lymph # (Auto) Schleicher # (Auto) Eos # (Auto) Baso # (Auto) Nucleated RBC % (a uto) Nucleated RBCs # D-Dimer Specimen Type Sample Site ABG pH ABG pCO2 ABG pO2 ABG HCO3 ABG Base Excess Roly Test Hematocrit Hgb O2 Saturation Carboxyhemoglobin Methemoglobin Total Hemoglobin O2 Delivery Device O2 Liters/Min Cloth Hand ID Sodium Potassium Chloride Carbon Dioxide Anion Gap BUN Creatinine GFR Calculation Glucose Calculated Osmolal ity Lactic Acid Calcium Total Bilirubin AST ALT Alkaline Phosphata se Troponin T Baselin e Troponin T 120 Min [place] 23.23 ng/L H ng/L (0-10) Delta Troponin T 2.23 ABS# ABS# (0-10) C-Reactive Protein NT-Pro-B Natriuret Pep Total Protein Albumin Globulin Procalcitonin Influenza Type A A g Negative (Negative) Influenza Type B A g Negative (Negative) SARS-CoV-2 Ag (Rap id) Negative (Negative) Discharge Plan Discharge Patient Disposition: Home Clinical Impression: Acute exacerbation of chronic obstructive airways disease Condition: Stable Prescriptions: New prednisone 20 mg tablet 40 mg PO DAILY 5 Days Qty: 10 RF: 0 doxycycline hyclate 100 mg capsule 100 mg PO BID 10 Days Qty: 20 RF: 0 hydrocodone-acetaminophen 5-325 mg tablet 1 tab PO Q8H PRN (Reason: pain) Qty: 7 RF: 0 No Action baclofen 10 mg tablet 5 mg PO BID PRN (Reason: spasm) Qty: 30 RF: 0 albuterol sulfate 2.5 mg /3 mL (0.083 %) solution for nebulization 2.5 mg INHALATION QID PRN (Reason: Shortness Of Breath) 30 Days Qty: 75 RF: 5 azithromycin 250 mg tablet 250 mg PO .COMPLEX 90 Days Qty: 45 RF: 1 Ajovy Autoinjector 225 mg/1.5 mL auto-injector 225 mg SUBCUT Q30D Qty: 1.5 RF: 2 epinephrine 0.3 mg/0.3 mL auto-injector 0.3 mg IM Q10M PRN (Reason: Allergic Reaction) RF: 0 acetaminophen [Tylenol Arthritis Pain] 650 mg tablet extended release 650 mg PO Q12H PRN (Reason: pain) 30 Days Qty: 30 RF: 5 hydroxyzine HCl 50 mg tablet 50 mg PO QID PRN (Reason: anxiety) Qty: 120 RF: 2 nystatin 100,000 unit/mL suspension 4 - 6 ml PO BID 30 Days Qty: 480 RF: 2 loratadine 10 mg tablet 10 mg PO DAILY Qty: 30 RF: 0 omeprazole 20 mg capsule,delayed release(DR/EC) 20 mg PO DAILY@0830 30 Days Qty: 30 RF: 5 nitroglycerin [Nitrostat] 0.4 mg tablet, sublingual 0.4 mg SUBLINGUAL Q5M PRN (Reason: Chest Pain) 30 Days Qty: 30 RF: 5 metoprolol succinate 50 mg tablet extended release 24 hr 50 mg PO BID@08,2099 30 Days Qty: 60 RF: 5 magnesium oxide 400 mg magnesium tablet 400 mg PO BID@08,2100 30 Days Qty: 30 RF: 5 isosorbide mononitrate 60 mg tablet extended release 24 hr 60 mg PO DAILY@0830 30 Days Qty: 30 RF: 5 hydralazine 100 mg tablet 100 mg PO TID@0830,1400,2100 30 Days Qty: 90 RF: 5 aspirin 81 mg tablet,delayed release (DR/EC) 81 mg PO DAILY@0830 30 Days Qty: 30 RF: 5 atorvastatin 20 mg tablet 30 mg PO DAILY@0800 Qty: 30 RF: 5 amlodipine 5 mg tablet 5 mg PO DAILY@0830 Qty: 30 RF: 5 ropinirole 1 mg tablet 1 mg PO DAILY@2099 30 Days Qty: 30 RF: 5 albuterol sulfate 90 mcg/actuation HFA aerosol inhaler 2 puff INHALATION 6XD PRN (Reason: Shortness Of Breath) Qty: 6.7 RF: 5 budesonide-formoterol [Symbicort] 160-4.5 mcg/actuation HFA aerosol inhaler 2 puff inhalation BID 30 Days Qty: 10.2 RF: 5 lorazepam [Ativan] 0.5 mg tablet 0.5 mg PO DAILY PRN (Reason: anxiety) Qty: 2 RF: 0 prednisone 20 mg tablet 20 mg PO BID Qty: 10 RF: 0 levofloxacin 500 mg tablet 500 mg PO DAILY Qty: 7 RF: 0 montelukast 10 mg tablet 10 mg PO DAILY@0830 Qty: 30 RF: 5 citalopram 40 mg tablet 40 mg PO DAILY@0830 30 Days Qty: 30 RF: 2 levothyroxine 50 mcg capsule 50 mcg PO DAILY@0830 30 Days Qty: 30 RF: 5 Spiriva with HandiHaler 18 mcg capsule, w/inhalation device See Rx Instructions .ROUTE .COMPLEX Qty: 30 RF: 6 buspirone 5 mg tablet 5 mg PO TID Qty: 90 RF: 2 clonidine HCl 0.1 mg tablet 0.1 mg PO BID@0830,2100 RF: 0 bumetanide 1 mg Tablet 1 mg PO EVERY OTHER DAY RF: 0 vit [id number] Tablet 1 tab PO DAILY RF: 0 fluticasone propionate [Flonase Allergy Relief] 50 mcg/actuation [place],Suspension 2 spray INTRANASAL DAILY PRN (Reason: Nasal Congestion) RF: 0 Discharge Orders: Discharge ED (Routine); Ordered 06/13/21 Ordered By: Patrick Tomas Referrals: Nancy Carrasco FNP-C [Primary Care Provider] - Patient Instructions: COPD (Chronic Obstructive Pulmonary Disease) (ED) Activity Restrictions/Additional Instructions: Return for fever greater than 100, worsening shortness of breath despite treatment, worsening chest pain despite treatment, other concerning symptoms. Coding Level of Care Code ED Target Setter for Leann Fwd Exam Comprehensive
[2021-06-13 19:43] LABS: Basophils % 0.4 %; Eosinophils # 0.1 10^3/uL (0.0-0.8); Eosinophils % 0.9 %; Hematocrit 33.4 % (37.0-47.0); Hemoglobin 11.3 g/dL (11.5-15.3); Lymphocytes # 1.7 10^3/uL (0.8-4.8); Lymphocytes % 14.8 %; Mean Corpuscular HGB Conc 33.8 g/dL (30.0-36.0); Mean Corpuscular Hemoglobin 28.8 pg (28.0-34.0); Mean Platelet Volume 9.4 fL (7.4-10.4); Monocytes # 0.7 10^3/uL (0.2-0.9); Monocytes % 6.3 %; Neutrophils # 8.58 10^3/uL (1.8-7.7); Neutrophils % 77.2 %; Nucleated Red Blood Cells % 0 %; Platelet Count 167 10^3/cmm (130-400); Red Blood Count 3.93 10^6/uL (4.1-5.3); Red Cell Distribution Width 12.6 % (12.1-15.1); White Blood Count 11.1 10^3/uL (4.0-10.0)
[2021-06-13 19:55] LABS: Lactic Sepsis W/Reflex 1.1 mmol/L (0.5-2.2)
[2021-06-13 19:58] LABS: Troponin(5th) Baseline 21 ng/L (0-10)
[2021-06-13 20:05] LABS: D Dimer 3.15 ug/mIFEU (0-0.59); Influenza A by IFA Negative (Negative); Influenza B by IFA Negative (Negative); NT Pro B Type Natriuretic Pept 1451 pg/mL (0-125); Procalcitonin 1.53 ng/mL (0-0.5); SARS Covid-2 Antigen Negative (Negative)
[2021-06-13] MEDS: ondansetron 2 mg/ML SDV 2 mL 4 MG IVP ×2 (20:07→20:47)
[2021-06-13 20:16] LABS: Alanine Aminotransferase 8 U/L (0-33); Albumin Level 3.3 g/dL (3.5-5.2); Alkaline Phosphatase 84 IU/L (35-105); Anion Gap 20.1 (5-19); Aspartate Amino Transferase 15 U/L (0-32); Blood Urea Nitrogen 24 mg/dL (8-23); C Reactive Protein 298.1 mg/L (0.0-4.9); Calcium 8.4 mg/dL (8.5-10.5); Carbon Dioxide 18 mmol/L (22-29); Chloride 94 mmol/L (98-107); Globulin 3.1 g/dL (1.3-4.6); Glomerular Filtration Rate 37.9 mL/min (90-130); Glucose 122 mg/dL (65-115); Osmolality Calculated 271 mOsm/kg (285-295); Potassium 4.1 mmol/L (3.5-5.1); Sodium 128 mmol/L (136-145); Total Bilirubin 0.3 mg/dL (0.15-1.2); Total Protein 6.4 g/dL (6.6-8.7)
[2021-06-13 20:47] VITALS: RESP 22
[2021-06-13] MEDS: morphine 4 mg/mL SDV 1 mL IVP ×2 (20:47→23:09)
--- NOTE | 2021-06-13 21:12 | ECG_ITS ---
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 Measurements Intervals [place] Rate: 61 P: 84 SC: 144 QRS: 85 QRSD: 77 T: 89 QT: 431 QTc: 437 Interpretive Statements SINUS RHYTHM NONSPECIFIC T-WAVE ABNORMALITY Compared to ECG 11/25/2020 18:48:32 T-wave abnormality now present Myocardial infarct finding no longer present Electronically Signed On 06-15-2021 17:11:41 MOTION PICTURE PHOTOGRAPHER by Victor Hugo Gonzalez M.D. [id number]
--- NOTE | 2021-06-13 21:26 | CTR_ITS ---
PROCEDURE INFORMATION: Exam: CTA Chest With Contrast Exam date and time: 06/13/2021 9:26 PM Age: 66 years old Clinical indication: Abnormal findings; Abnormal diagnostic tests; Elevated d-dimer; Patient HX: C/O pleuritic cp w elev d-dimer; Additional info: Chest pain TECHNIQUE: Imaging protocol: Computed tomographic angiography of the chest with contrast. 3D rendering (Not supervised by radiologist): MIP and/or 3D reconstructed images were created by the technologist. Total images: 756 Radiation optimization: All CT scans at this facility use at least one of these dose optimization techniques: automated exposure control; mA and/or kV adjustment per patient size (includes targeted exams where dose is matched to clinical indication); or iterative reconstruction. Contrast material: VISI 320; Contrast volume: 66 ml; Contrast route: INTRAVENOUS (IV); COMPARISON: CT angio chest PE protcl [id number] 05/05/2021 2:44 PM RADIATION DOSE METRICS: Total DLP (mGy-cm): 341.78 FINDINGS: Pulmonary arteries: No visible evidence of pulmonary embolism/pulmonary arterial thrombus. Aorta: The thoracic aorta is nonaneurysmal. No visible intimal flap or dissection. Mild to moderate arterial sclerotic disease. Again note of a stable infrarenal fusiform aneurysmal dilatation of the abdominal aorta, within the field of view, with stable stent in place. No visible occlusion. Right renal arterial stent. Left renal artery occluded. Lungs: Emphysema with COPD/chronic bronchitis. Rare small patch of ground-glass interstitial lung disease in a tree in bud presentation consistent with small airway disease of bronchiolar disease/bronchiolitis. Small 3.4 mm pulmonary nodule posterior basal segment right lower lobe (series 3, image 37). Mild dependent atelectasis. Pleural spaces: No pneumothorax. No pleural effusion. Heart: No cardiomegaly. Left ventricular prominence. No visible pericardial effusion. Moderately advanced 3 vessel coronary artery disease. Lymph nodes: No visible active mediastinal or hilar lymphadenopathy. Kidneys and ureters: Atrophic left kidney again noted. Bones/joints: No visible active or acute osseous pathology. Mild scoliosis of the spine. Soft tissues: Unremarkable. CT/CT angio chest PE protcl [id number] IMPRESSION: 1. No visible evidence of pulmonary embolism/pulmonary arterial thrombus. 2. Emphysema with COPD/chronic bronchitis. 3. Rare small patch of small airway disease of bronchiolar disease/bronchiolitis. 4. Moderately advanced 3 vessel coronary artery disease. 5. Small 3.4 mm pulmonary nodule right lower lobe. For patients at low risk (minimal or absent history of smoking and of other known risk factors), no routine follow-up is indicated. For patients at high risk (history of smoking or of other known risk factors), consider optional CT Chest at 12 months. (Reference: Bharat). 6. Other nonurgent, nonemergent, chronic, and age related findings as detailed in text above. REFERENCES: Bharat Glasgow, et al. Guidelines for Management of Incidental Pulmonary Nodules Detected on CT Images: From the Fleischner Society 2017. Radiology. 2017;284(1):228-243. Radiation Dose CTDIVOL = (mGy): DLP = 341.78 (mGy-cm)
[2021-06-13 22:06] LABS: ABG PCO2 36.5 mmHg (35-45); ABG PH Result 7.37 (7.35-7.45); Arterial Blood Gas Hematocrit 34.7 % (37-47); Blood Gas Allen Test Pos; Blood Gas Sample Site Radial, right; Blood Gas Sample Type Arterial; Carboxyhemoglobin 0.8 %THgb (0.4-20.1); HCO3 ABG 20.8 mmol/L (22-26); HGB O2 Sat 96.5 % (95-100); Oxygen Device NC; Total Hemoglobin 11.3 g/dL (12-16)
[2021-06-13 22:13] LABS: Troponin 5 2HR 23.23 ng/L (0-10); Troponin 5 2HR Delta 2.23 ABS# (0-10)
[2021-06-13] MEDS: iodixanol 320 mg/mL 100mL Btl IV (22:18)
[2021-06-13 23:09] VITALS: RESP 20; O2SAT 97
[2021-06-14] MEDS: doxycycline 100 mg Tablet PO (00:31)
[2021-06-14 00:51] VITALS: BP 122/78; PULSE 80; RESP 22; O2SAT 97
== END 2021-06-14 00:48 | disposition home or self-care (01) ==
PROVIDERS: Emergency Provider Emergency Medicine; PCP Nurse Practitioner Family
DX: J44.1 Chronic obstructive pulmonary disease with (acute) exacerbation (principal); Z79.82 Long term (current) use of aspirin; I13.0 Hypertensive heart and chronic kidney disease with heart failure and stage 1 through stage 4 chronic kidney disease, or unspecified chronic kidney disease; N18.30 Chronic kidney disease, stage 3 unspecified; I50.9 Heart failure, unspecified; Z87.891 Personal history of nicotine dependence; Z20.822 Contact with and (suspected) exposure to COVID-19
CPT/HCPCS: 36415; 36600; 71045; 71275; 80053; 82805; 83605; 83880; 84145; 84484; 85025; 85378; 86140; 87040; 87070; 87077; 87186; 87205; 87426; 87804; 93005; 96374; 96375; 96376; 99284; J2270; J2405; J2930; Q9967

== ENCOUNTER 2021-06-18 12:51 | Outpatient (CLI) | payer MEDICAID, SELFPAY ==
[2021-06-18 13:18] LABS: Basophils % 0.2 %; Hematocrit 32.8 % (37.0-47.0); Lymphocytes # 1.5 10^3/uL (0.8-4.8); Lymphocytes % 22.4 %; Mean Corpuscular HGB Conc 33.5 g/dL (30.0-36.0); Mean Corpuscular Hemoglobin 28.4 pg (28.0-34.0); Mean Corpuscular Volume 84.8 fl (81-99); Mean Platelet Volume 8.8 fL (7.4-10.4); Monocytes # 0.4 10^3/uL (0.2-0.9); Monocytes % 6.6 %; Neutrophils # 4.44 10^3/uL (1.8-7.7); Nucleated Red Blood Cells % 0 %; Platelet Count 277 10^3/cmm (130-400); Red Blood Count 3.87 10^6/uL (4.1-5.3); White Blood Count 6.5 10^3/uL (4.0-10.0)
[2021-06-18 13:39] LABS: Ferritin 456 ng/mL (15-150); Iron 99 ug/dL (37-145); Percent Saturation 62.6 % (20-50); Total Iron Binding Capacity 158 mcg/dl; Unsaturated Iron Binding 59 ug/dL (112-347)
--- NOTE | 2021-06-18 14:57 | ONC FU_ITS ---
Dr. Ballesteros follow up note Patient: Hali James Unit #: [id number]: 1955 Dicatated By: Ade Ballesteros M.D.Date of Visit:Jun 18, 2021 Onc Med Follow-up/Prog Note History of Present Illness: Ms. Hali James, is a 66-year-old female with a history of anemia. As per patient, first time she was diagnosed with anemia was not 2014 or , at that time she was given oral iron supplement for 5 or 6 months with that anemia was resolved until recently when her routine lab work-up done on January 30, 2020 showed white blood count 3.4, hemoglobin 9.2 g hematocrit 27.9 platelets 171,000 MCV 85 and CMP showed creatinine 2, and anemia work-up including iron studies showed iron 53, iron saturation 29.2, TIBC 181 ferritin 113, bilirubin 0.2, stool for occult blood was negative Patient denies any history of blood transfusion, patient had colonoscopy done at age 62 it was unremarkable but not sure about EGD Patient has history of hysterectomy and bilateral oophorectomy at age 22 for incompetent cervix. Patient denies any jaundice, denies any melena or hematochezia, denies any hemoptysis or hematemesis, denies any night sweats, denies any abdominal fullness, denies any peripheral lymphadenopathy. Denies any bony pain denies any weight loss. Underwent bone marrow on April 17, 2020 showed trilineage hematopoiesis, and early/evolving dysplastic process cannot be entirely excluded. Marked decrease storage iron, no ring sideroblasts seen. No significant reticulin fibrosis. Also showed several small to intermediate sized paratrabecular and none paratrabecular lymphoid aggregate which comprises only 5 to 10% of the sample. Given the rare CD5 positive monotypic B-cell detected on flow cytometry, there was a concern for involvement of B-cell neoplasm CLL is possible but mantle cell lymphoma was not entirely ruled out, Flow cytometry, showed monotypic B-cell population, approximately 1%, is positive for CD19, CD20,'s CD5 and shows surface lambda light chain restriction. CD10 is negative so consistent with rare monotypic B-cell detected, phenotypically suggestive of CLL/small lymphocytic lymphoma and FISH for MDS also negative CT scan of chest abdomen pelvis done on July 07, 2020 showed no sign of mass or lymphadenopathy in the chest, but COPD No sign of mass or lymphadenopathy or acute process in abdomen or pelvis. 3.3 cm infrarenal abdominal aortic aneurysm which has been repaired with bifurcated stent. patient had her colonoscopy and EGD done when she was 62-year-old, at that time , Some polyps were removed and they were benign, she was told to get it repeated in 5 years. Patient has family history of colon cancer in brother and polyps in both mother and father. Status post iron dextran given on October 21, 2020 Came for follow-up, denies any specific complaints except recently she went to [facility] with progressive shortness of breath and wheezing and underwent CTA chest on May 05, 2021 which shows no evidence of pulmonary embolus., Patient thought she had flulike symptoms. Otherwise denies any melena or hematochezia denies any hemoptysis hematemesis denies any jaundice, denies any fever chills denies any shortness of breath or palpitation . Medications: Albuterol Sulfate (sensor) 1 Puff(s) (of 108 (90 base) mcg/act) Aerosol Powder, Breath Activated Inhalation daily, amLODIPine Besylate 1 Tablet Oral daily, Aspirin 1 Tablet (of 81 mg) Tablet, enteric coated Oral daily, Atorvastatin Calcium 1 Tablet (of 30 mg) Oral daily, Budesonide-Formoterol Fumarate 1 Puff(s) (of 160-4.5 mcg/act) Aerosol Inhalation daily, busPIRone HCl 1 Tablet (of 5 mg) Oral t.i.d., Daliresp 1 Tablet (of 500 mcg) Oral daily, Doxycycline Hyclate 1 Tablet (of 100 mg) Capsule Oral b.i.d., FLUoxetine HCl 1 Capsule (of 20 mg) Oral daily, Furosemide 1 Tablet (of 20 mg) Oral daily, hydrALAZINE HCl 1 Tablet (of 100 mg) Oral t.i.d., hydrOXYzine Pamoate 1 Tablet (of 50 mg) Capsule Oral four times a day PRN, Irbesartan 1 Tablet (of 300 mg) Oral daily, Isosorbide Mononitrate ER 1 Tablet (of 30 mg) Tablet SR 24 HR Oral daily, Levothyroxine Sodium 1 Tablet (of 25 mcg) Oral daily, Metoprolol Succinate ER 1 Tablet (of 100 mg) Tablet SR 24 HR Oral b.i.d., Nitroglycerin 1 (0.4 mg) Tablet, sublingual Sublingual PRN, Omeprazole 1 Capsule (of 20 mg) Capsule Delayed Release Oral daily, rOPINIRole HCl 1 Tablet (of 1 mg) Oral daily, Spiriva Respimat 1 (1.25 mcg/act) Aerosol, solution Inhalation daily, traMADol HCl Tablet Oral PRN Allergies: Lisinopril and Sulfa Antibiotics. Review of Systems: Review of Systems is not available for this patient. Vital Signs: Performed on Jun 18, 2021 14:42 Height - 60.00 in Weight - 97.0 lbs (HIGH) BSA - 1.37 sq.m BMI - 18.94 Temperature - 96.5 F (LOW) Pulse - 79 /min Respiration - 18 /min BP - 122/77 mm(hg) O2 Sat - 95 % (LOW) Pain - 3 Fatigue - 6 Performance Status: 0 - Fully active, able to carry on all predisease activities without restrictions. (ECOG) Physical Examination: ENMT - No mouth sores, no thrush, no jaundice, Respiratory - Lungs are clear to auscultation, Cardiovascular - Regular rate and rhythm of heart, Abdomen - Soft, bowel sounds present, Extremities - No visible edema. Lab/Imaging: Most recent lab results are not available for this patient. Impression: Normocytic/normochromic anemia etiology unclear could be multifactorial including but not limited to anemia of renal disease, anemia of chronic disease, considering her age and concurrent leukopenia underlying myelodysplasia cannot be ruled out. Or due to minerals deficiency like copper or zinc or hypothyroidism. Underwent bone marrow evaluation on April 17, 2020 which showed markedly decreased storage iron, no ring sideroblasts seen. No significant fibrosis. Evolving/early MDS cannot be ruled out. 1% CD 5 positive monotypic B-cell with lambda light chain restriction was seen on flow cytometry, immunohistochemistry ruled out overt B-cell malignancy so this could be due to monoclonal B-cell lymphocytosis of undetermined significance. CT scan of chest abdomen pelvis done on July 07, 2020 showed no central lymphadenopathy or organomegaly Renal insufficiency COPD Plan: Discussed with patient regarding her labs white blood count 6.5 hemoglobin 11 g hematocrit 32.8 platelets 277,000 iron studies shows iron saturation 62.6% ferritin 456 compared to 56 previously iron 99 TIBC 150 Clinically, patient doing reasonably well with no new signs symptoms or follow-up labs shows mild decrease in her hemoglobin otherwise iron studies within normal range, will continue to monitor and she will return to clinic in 3 months with CBC Signed By: Ade Ballesteros M.D. <<Signature on File>>
== END 2021-06-18 12:52 | disposition home or self-care (01) ==
LOC: ONCMED 12:53
PROVIDERS: PCP Nurse Practitioner Family; Visit Provider Internal Medicine Hematology & Oncology
DX: D64.9 Anemia, unspecified (principal); E61.1 Iron deficiency; R74.8 Abnormal levels of other serum enzymes; N28.9 Disorder of kidney and ureter, unspecified; J44.9 Chronic obstructive pulmonary disease, unspecified; Z79.899 Other long term (current) drug therapy
CPT/HCPCS: 36415; 82728; 83540; 83550; 85025; 99214

== ENCOUNTER → 2021-07-23 15:21 | Outpatient (BNVA) | payer MEDICAID, SELFPAY | PROVIDERS: PCP Nurse Practitioner Family; Visit Provider Psychiatry & Neurology Psychiatry | DX: F41.1 Generalized anxiety disorder (principal); F33.2 Major depressive disorder, recurrent severe without psychotic features | CPT/HCPCS: 99214 ==

== ENCOUNTER → 2021-08-18 14:08 | Outpatient (BNVA) | payer MEDICAID, SELFPAY | PROVIDERS: PCP Nurse Practitioner Family; Visit Provider Nurse Practitioner Family | DX: J44.9 Chronic obstructive pulmonary disease, unspecified (principal); E03.9 Hypothyroidism, unspecified; I10 Essential (primary) hypertension | CPT/HCPCS: 71046; 80053; 80061; 84443; 85025 ==

== ENCOUNTER 2021-09-17 13:08 | Outpatient (CLI) | payer MEDICAID, SELFPAY ==
[2021-09-17 13:53] LABS: Basophils % 0.3 %; Eosinophils # 0.1 10^3/uL (0.0-0.8); Hematocrit 35.2 % (37.0-47.0); Lymphocytes # 2.3 10^3/uL (0.8-4.8); Lymphocytes % 38.4 %; Mean Corpuscular HGB Conc 31.3 g/dL (30.0-36.0); Mean Corpuscular Hemoglobin 25.9 pg (28.0-34.0); Mean Platelet Volume 9.1 fL (7.4-10.4); Monocytes # 0.3 10^3/uL (0.2-0.9); Monocytes % 5.1 %; Neutrophils # 3.16 10^3/uL (1.8-7.7); Neutrophils % 53.7 %; Nucleated Red Blood Cells % 0 %; Platelet Count 187 10^3/cmm (130-400); Red Blood Count 4.24 10^6/uL (4.1-5.3); Red Cell Distribution Width 15.8 % (12.1-15.1); White Blood Count 5.9 10^3/uL (4.0-10.0)
[2021-09-17 14:10] LABS: Ferritin 320 ng/mL (15-150); Iron 56 ug/dL (37-145); Percent Saturation 38.8 % (20-50); Total Iron Binding Capacity 144 mcg/dl; Unsaturated Iron Binding 88 ug/dL (112-347)
--- NOTE | 2021-09-18 12:52 | ONC FU_ITS ---
Dr. Ballesteros follow up note Patient: Hali James Unit #: [id number]: 1955 Dicatated By: Ade Ballesteros M.D.Date of Visit:Sep 17, 2021 Onc Med Follow-up/Prog Note History of Present Illness: Ms. Hali James, is a 66-year-old female with a history of anemia. As per patient, first time she was diagnosed with anemia was not 2014 or , at that time she was given oral iron supplement for 5 or 6 months with that anemia was resolved until recently when her routine lab work-up done on January 30, 2020 showed white blood count 3.4, hemoglobin 9.2 g hematocrit 27.9 platelets 171,000 MCV 85 and CMP showed creatinine 2, and anemia work-up including iron studies showed iron 53, iron saturation 29.2, TIBC 181 ferritin 113, bilirubin 0.2, stool for occult blood was negative Patient denies any history of blood transfusion, patient had colonoscopy done at age 62 it was unremarkable but not sure about EGD Patient has history of hysterectomy and bilateral oophorectomy at age 22 for incompetent cervix. Patient denies any jaundice, denies any melena or hematochezia, denies any hemoptysis or hematemesis, denies any night sweats, denies any abdominal fullness, denies any peripheral lymphadenopathy. Denies any bony pain denies any weight loss. Underwent bone marrow on April 17, 2020 showed trilineage hematopoiesis, and early/evolving dysplastic process cannot be entirely excluded. Marked decrease storage iron, no ring sideroblasts seen. No significant reticulin fibrosis. Also showed several small to intermediate sized paratrabecular and none paratrabecular lymphoid aggregate which comprises only 5 to 10% of the sample. Given the rare CD5 positive monotypic B-cell detected on flow cytometry, there was a concern for involvement of B-cell neoplasm CLL is possible but mantle cell lymphoma was not entirely ruled out, Flow cytometry, showed monotypic B-cell population, approximately 1%, is positive for CD19, CD20,'s CD5 and shows surface lambda light chain restriction. CD10 is negative so consistent with rare monotypic B-cell detected, phenotypically suggestive of CLL/small lymphocytic lymphoma and FISH for MDS also negative CT scan of chest abdomen pelvis done on July 07, 2020 showed no sign of mass or lymphadenopathy in the chest, but COPD No sign of mass or lymphadenopathy or acute process in abdomen or pelvis. 3.3 cm infrarenal abdominal aortic aneurysm which has been repaired with bifurcated stent. patient had her colonoscopy and EGD done when she was 62-year-old, at that time , Some polyps were removed and they were benign, she was told to get it repeated in 5 years. Patient has family history of colon cancer in brother and polyps in both mother and father. Status post iron dextran given on October 21, 2020 Came for follow-up, denies any specific complaints, no fever chills, no nausea or vomiting, no diarrhea constipation, no melena occasional mops or hematemesis, no shortness of breath or palpitation . Medications: Albuterol Sulfate (sensor) 1 Puff(s) (of 108 (90 base) mcg/act) Aerosol Powder, Breath Activated Inhalation daily, amLODIPine Besylate 1 Tablet Oral daily, Aspirin 1 Tablet (of 81 mg) Tablet, enteric coated Oral daily, Atorvastatin Calcium 1 Tablet (of 30 mg) Oral daily, Budesonide-Formoterol Fumarate 1 Puff(s) (of 160-4.5 mcg/act) Aerosol Inhalation daily, busPIRone HCl 1 Tablet (of 5 mg) Oral t.i.d., Daliresp 1 Tablet (of 500 mcg) Oral daily, Doxycycline Hyclate 1 Tablet (of 100 mg) Capsule Oral b.i.d., FLUoxetine HCl 1 Capsule (of 20 mg) Oral daily, Furosemide 1 Tablet (of 20 mg) Oral daily, hydrALAZINE HCl 1 Tablet (of 100 mg) Oral t.i.d., hydrOXYzine Pamoate 1 Tablet (of 50 mg) Capsule Oral four times a day PRN, Irbesartan 1 Tablet (of 300 mg) Oral daily, Isosorbide Mononitrate ER 1 Tablet (of 30 mg) Tablet SR 24 HR Oral daily, Levothyroxine Sodium 1 Tablet (of 25 mcg) Oral daily, Metoprolol Succinate ER 1 Tablet (of 100 mg) Tablet SR 24 HR Oral b.i.d., Nitroglycerin 1 (0.4 mg) Tablet, sublingual Sublingual PRN, Omeprazole 1 Capsule (of 20 mg) Capsule Delayed Release Oral daily, rOPINIRole HCl 1 Tablet (of 1 mg) Oral daily, Spiriva Respimat 1 (1.25 mcg/act) Aerosol, solution Inhalation daily, traMADol HCl Tablet Oral PRN Allergies: Lisinopril and Sulfa Antibiotics. Review of Systems: Review of Systems is not available for this patient. Vital Signs: Performed on Sep 17, 2021 15:43 Height - 60.00 in Weight - 86.4 lbs (LOW) BSA - 1.31 sq.m BMI - 16.87 (LOW) Temperature - 97.4 F (LOW) Pulse - 84 /min Respiration - 18 /min BP - 109/73 mm(hg) O2 Sat - 92 % (LOW) Pain - 3 Fatigue - 10 Performance Status: 0 - Fully active, able to carry on all predisease activities without restrictions. (ECOG) Physical Examination: ENMT - No mouth sores, no thrush, no jaundice, Respiratory - Lungs are clear to auscultation, Cardiovascular - Regular rate and rhythm of heart, Abdomen - Soft, bowel sounds present, Extremities - No visible edema. Lab/Imaging: Most recent lab results are not available for this patient. Impression: Normocytic/normochromic anemia etiology unclear could be multifactorial including but not limited to anemia of renal disease, anemia of chronic disease, considering her age and concurrent leukopenia underlying myelodysplasia cannot be ruled out. Or due to minerals deficiency like copper or zinc or hypothyroidism. Underwent bone marrow evaluation on April 17, 2020 which showed markedly decreased storage iron, no ring sideroblasts seen. No significant fibrosis. Evolving/early MDS cannot be ruled out. 1% CD 5 positive monotypic B-cell with lambda light chain restriction was seen on flow cytometry, immunohistochemistry ruled out overt B-cell malignancy so this could be due to monoclonal B-cell lymphocytosis of undetermined significance. CT scan of chest abdomen pelvis done on July 07, 2020 showed no central lymphadenopathy or organomegaly Renal insufficiency COPD Plan: Discussed with patient regarding her labs white blood count 5.9 hemoglobin 11 g hematocrit 35.2 platelets 187,000 iron studies shows iron saturation 38.8% ferritin 320 and iron 56 Clinically, patient doing well with no new signs symptom related to mild anemia but stable, his hemoglobin 11 g compared to 11 g on June 18, 2021, iron stores adequate, will continue to monitor as etiology of her mild anemia could be multifactorial including involving MDS or renal insufficiency, or functional iron deficiency, and she will return to clinic in 3 months with CBC and iron studies. Signed By: Ade Ballesteros M.D. <<Signature on File>>
== END 2021-09-17 13:09 | disposition home or self-care (01) ==
PROVIDERS: PCP Nurse Practitioner Family; Visit Provider Internal Medicine Hematology & Oncology
DX: D64.9 Anemia, unspecified (principal); N28.9 Disorder of kidney and ureter, unspecified; J44.9 Chronic obstructive pulmonary disease, unspecified; Z79.899 Other long term (current) drug therapy
CPT/HCPCS: 36415; 82728; 83540; 83550; 85025; 99214

== ENCOUNTER → 2021-09-21 15:21 | Outpatient (BNVA) | payer MEDICAID, SELFPAY | PROVIDERS: PCP Nurse Practitioner Family; Visit Provider Psychiatry & Neurology Psychiatry | DX: F41.1 Generalized anxiety disorder (principal); F33.2 Major depressive disorder, recurrent severe without psychotic features | CPT/HCPCS: 99213 ==

== ENCOUNTER → 2021-09-24 13:32 | Outpatient (BNVA) | payer MEDICAID, SELFPAY | PROVIDERS: PCP Nurse Practitioner Family; Visit Provider Internal Medicine Critical Care Medicine | DX: J44.9 Chronic obstructive pulmonary disease, unspecified (principal); J18.9 Pneumonia, unspecified organism; D64.9 Anemia, unspecified; N18.30 Chronic kidney disease, stage 3 unspecified; I10 Essential (primary) hypertension; K21.9 Gastro-esophageal reflux disease without esophagitis; Z87.891 Personal history of nicotine dependence | CPT/HCPCS: 99214 ==

== ENCOUNTER 2021-10-28 21:52 | Emergency (ER) | payer MEDICAID, SELFPAY ==
[2021-10-28 22:50] VITALS: BP 110/66; PULSE 75; RESP 15; TEMP 36.9; O2SAT 94; BMI 16.6
--- NOTE | 2021-10-28 22:58 | ED_ITS ---
HPI - Back Pain/Injury General: Chief Complaint: Back Pain/Injury Stated Complaint: Fall Time Seen by Provider: 10/28/21 22:58 History of Present Illness: 66-year-old female comes in today with complaints of left posterior rib pain. Patient reports falling last night and landing agai nst a rock on her left thoracic area. Patient reports pain with movement and deep inspiration. Patient does have a history of COPD, hypertension, aneurysm repair, chronic back pain. Review of Systems General: Reports: 10 or more systems reviewed and unremarkable except in HPI and below Card: Denies: chest pain Resp: Reports: dyspnea Musc: Reports: other (Left rib pain) Skin/Breast: Denies: rash PFSH ED PFSH: Medical History AAA (abdominal aortic aneurysm) 4.1 x 4.4 x 5.7 cm 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 Anemia Atypical chest pain Brain aneurysm Chronic kidney disease CKD stage III, solitary kidney Chronic migraine without aura, intractable, with status migrainosus Congestive heart failure COPD (chronic obstructive pulmonary disease) Depression Endoleak post (EVAR) endovascular aneurysm repair GERD (gastroesophageal reflux disease) History of stent insertion of renal artery Hypercholesteremia Hypertension Hypertensive urgency Resolved Hypothyroidism Inguinal swelling Normal colonoscopy Osteoporosis Peripheral vascular disease Psychiatric care Restless leg Solitary kidney Surgical History H/O: hysterectomy History of renal stent Herculink stent History of repair of aneurysm of abdominal aorta using endovascular stent graft Hx of tonsillectomy S/P appendectomy Family History Mother CAD (coronary artery disease) Chronic kidney disease (CKD) Dementia Stroke Father CAD (coronary artery disease) Cancer Diabetes Brother CAD (coronary artery disease) Cancer Lung disease Grandfather Cancer Grandmother Diabetes Family/Other Lung disease Suicide Other Hypertension Denies family history of Clotting disorder Anesthesia complication Bleeding disorder Social History (Updated 09/24/21 @ 14:29 by Sharmaine Vargas LPN) Smoking and tobacco status: former smoker Quit status (tobacco): has quit using tobacco Year quit tobacco: 2005 - PPD x 35 Years Former quit date comment: Started at age 18 Second hand smoke exposure: No Smoking risk assessment/counseling performed?: No Alcohol intake: never Desire information about alcohol rehabilitation?: No Counseling given: No Adopted: No Caregiver/support person: No Lives independently: Yes Household members: family and children Housing: House Marital status: / Marital status details: 2006 Number of children: 12 Number of grandchildren: 4 Highest education level completed: Master's Degree Education level details: Criminal Justice service: No Current occupational status: disabled Current occupational exposures/hazards: No Pets and animals: Yes Pets & animals: cat(s), dog(s) and farm animals Farm Animals: cattle History of recent travel: No Leisure activites: reading and other Leisure activities details: watch TV Sexually active: No Current gender identity: Female Yudy/Buddhist: Sabianism Confucianist [employer] Special yudy needs: No Agree to transfusion: Yes Financial difficulty paying for basics: Somewhat Hard Female Reproductive History: Date of last menstrual period: 10/21/20 Para: 0 Spontaneous abortions: Yes Physical Exam Const: COMMON NORMALS: alert Chest: CHEST: Yes tenderness (Left mid posterior rib) rib GI: COMMON NORMALS: Soft to palpation and non-tender PALPATION: Yes Soft to palpation Back/Pelvis: THORACIC SPINE/UPPER BACK: No thoracic spinal tenderness Extremity: COMMON NORMALS: normal to inspection Neuro: SENSORIUM/ORIENTATION: Yes alert Skin: COMMON NORMALS: no wounds Course Vital Signs: Vital signs: Vital Signs Temperature 98.5 F 10/28/21 22:50 Pulse Rate 74 10/28/21 23:26 Respiratory Rate 14 10/28/21 23:20 Blood Pressure 111/77 10/28/21 23:20 Pulse Oximetry 96 10/28/21 23:20 MDM - Back Pain/Injury Medical Decision Making 66-year-old female comes in today with complaints of left mid back pain. On exam patient has tenderness in the left posterior ribs. No crepitus or movement is noted on palpation. Vital signs are normal. Differential diagnosis includes rib fracture, rib contusion, pneumothorax. X-ray of the left ribs and chest indicated no pneumothorax or obvious fracture. Believe patient might have a nondisplaced fracture but will treat for contusion of the rib. Incentive spirometer was reviewed with patient per respiratory therapy, and 1 nebulizer treatment was given due to patient's history of COPD. Patient will continue with routine care, a small course of hydrocodone was prescribed for the next 3 days for severe pain. Patient should follow-up with primary care for further instructions return to the ER for worsening symptoms. Patient reported un derstanding. Discharge Plan Discharge Patient Disposition: Home Clinical Impression: Contusion of rib on left side Qualifiers: Encounter type: initial encounter Qualified Code(s): S20.212A - Contusion of left front wall of thorax, initial encounter Condition: Stable Prescriptions: Continued hydrocodone-acetaminophen 5-325 mg tablet 1 tab PO Q8H PRN (Reason: pain) Qty: 9 0RF No Action baclofen 10 mg tablet 5 mg PO BID PRN (Reason: spasm) Qty: 30 0RF dexamethasone sodium phosphate 4 mg/mL solution 4 mg IM ONCE Qty: 1 0RF nystatin-triamcinolone 100,000-0.1 unit/gram-% ointment 1 applic topical TID Qty: 30 0RF albuterol sulfate 2.5 mg /3 mL (0.083 %) solution for nebulization 2.5 mg INHALATION QID PRN (Reason: Shortness Of Breath) 30 Days Qty: 75 5RF [place] Autoinjector 225 mg/1.5 mL auto-injector 225 mg SUBCUT Q30D Qty: 1.5 2RF epinephrine 0.3 mg/0.3 mL auto-injector 0.3 mg IM Q10M PRN (Reason: Allergic Reaction) 0RF Rx Instructions: for 2 doses acetaminophen [Tylenol Arthritis Pain] 650 mg tablet extended release 650 mg PO Q12H PRN (Reason: pain) 30 Days Qty: 30 5RF nystatin 100,000 unit/mL suspension 4 - 6 ml PO BID 30 Days Qty: 480 2RF Rx Instructions: swish and spit prednisone 20 mg tablet 20 mg PO BID PRN0RF levofloxacin 750 mg tablet 750 mg PO DAILY 5 Days Qty: 5 0RF bupropion HCl [Wellbutrin XL] 150 mg tablet extended release 24 hr 150 mg PO QAM Qty: 30 2RF buspirone 5 mg tablet 5 mg PO TID Qty: 90 2RF citalopram 40 mg tablet 40 mg PO DAILY@0830 30 Days Qty: 30 2RF hydroxyzine HCl 50 mg tablet 50 mg PO QID PRN (Reason: anxiety) Qty: 120 2RF triamcinolone acetonide 40 mg/mL suspension 40 mg IM ONCE Qty: 1 0RF dexamethasone sodium phosphate 4 mg/mL solution 8 mg IM ONCE Qty: 2 0RF ropinirole 1 mg tablet 1 mg PO DAILY@2099 30 Days Qty: 30 5RF omeprazole 20 mg capsule,delayed release(DR/EC) 20 mg PO DAILY@829 30 Days Qty: 30 5RF nitroglycerin [Nitrostat] 0.4 mg tablet, sublingual 0.4 mg SUBLINGUAL Q5M PRN (Reason: Chest Pain) 30 Days Qty: 30 5RF metoprolol succinate 50 mg tablet extended release 24 hr 50 mg PO BID@829,2099 30 Days Qty: 60 5RF isosorbide mononitrate 60 mg tablet extended release 24 hr 60 mg PO DAILY@829 30 Days Qty: 30 5RF hydralazine 100 mg tablet 100 mg PO TID@08,1399,2099 30 Days Qty: 90 5RF budesonide-formoterol [Symbicort] 160-4.5 mcg/actuation HFA aerosol inhaler 2 puff inhalation BID 30 Days Qty: 10.2 5RF aspirin 81 mg tablet,delayed release (DR/EC) 81 mg PO DAILY@829 30 Days Qty: 30 5RF amlodipine 5 mg tablet 5 mg PO DAILY@829 Qty: 30 5RF albuterol sulfate 90 mcg/actuation HFA aerosol inhaler 2 puff INHALATION 6XD PRN (Reason: Shortness Of Breath) Qty: 6.7 5RF montelukast 10 mg tablet 10 mg PO DAILY@829 Qty: 30 5RF levothyroxine 50 mcg capsule 50 mcg PO DAILY@829 30 Days Qty: 30 5RF atorvastatin 20 mg tablet 30 mg PO DAILY Qty: 45 5RF prednisone 10 mg tablet 10 mg PO BID Qty: 6 0RF Spiriva with HandiHaler 18 mcg capsule, w/inhalation device See Rx Instructions .ROUTE .COMPLEX Qty: 30 6RF Dose Instruction: INHALE CONTENTS OF 1 CAPSULE INTO LUNGS USING HANDIHALER ONCE DAILY; ONE DOSE = 2 INHALATIONS Rx Instructions: INHALE CONTENTS OF 1 CAPSULE INTO LUNGS USING HANDIHALER ONCE DAILY; ONE DOSE = 2 INHALATIONS clonidine HCl 0.1 mg tablet 0.1 mg PO BID@829,2099 Qty: 180 3RF azithromycin 250 mg tablet 250 mg PO .COMPLEX 90 Days Qty: 45 1RF Rx Instructions: 250 mg PO Tuesday; bumetanide 1 mg Tablet 1 mg PO EVERY OTHER DAY 0RF fluticasone propionate [Flonase Allergy Relief] 50 mcg/actuation [place],Suspension 2 spray INTRANASAL DAILY PRN (Reason: Nasal Congestion) 0RF Discharge Orders: Discharge ED (Routine); Ordered 10/28/21 Ordered By: Edil Lorenzo Referrals: Nancy Carrasco FNP-C [Primary Care Provider] - Discharge Diet: Usual diet Discharge Activity: Increase activity as tolerated Patient Instructions: Costochondritis (ED), Opioid Safety Activity Restrictions/Additional Instructions: Activity as tolerated. Gentle stretching and range of motion exercises. Use ice or heat to the area for further pain relief. Use acetaminophen to control pain. Use hydrocodone for severe pain. Follow-up with primary care for further instruction. Return to ER for new concerns. Coding Level of Care Code ED Director Of Architecture for Leann Fwd Exam Detailed
--- NOTE | 2021-10-28 23:02 | XRR_ITS ---
PROCEDURE INFORMATION: Exam: XR Left Ribs with PA Chest Exam date and time: 10/28/2021 11:06 PM Age: 66 years old Clinical indication: Injury or trauma; Fall; Rib area, left side; Blunt trauma; Prior surgery; Surgery type: Aaa graft; Patient HX: Patient fell yesterday onto her back. C/O left posterior rib pain. ; Additional info: Fall injury TECHNIQUE: Imaging protocol: XR Left ribs with PA chest. Views: 3 views COMPARISON: CR XR chest 2V* [id number] 08/18/2021 2:08 PM FINDINGS: Lungs: Unremarkable. No consolidation. Pleural spaces: Unremarkable. No pleural effusion. No pneumothorax. Heart/Mediastinum: Unremarkable. No cardiomegaly. Bones/joints: Unremarkable. XR/XR ribs LT mn 3V w CXR1V [id number] IMPRESSION: No acute findings.
[2021-10-28] MEDS: HYDROcodone-acetaminophen 7.5-325 mg Tablet 1 TAB PO (23:13)
[2021-10-28 23:19] VITALS: PULSE 71; RESP 18; O2SAT 98
[2021-10-28] MEDS: ipratropium-albuterol 3 mL Neb INHALATION (23:19)
[2021-10-28 23:20] VITALS: BP 111/77; PULSE 70; RESP 14; O2SAT 96
[2021-10-28 23:26] VITALS: PULSE 74
[2021-10-28 23:33] VITALS: BP 111/77; PULSE 70; RESP 14; O2SAT 96
== END 2021-10-28 23:29 | disposition home or self-care (01) ==
PROVIDERS: Emergency Provider Nurse Practitioner Family; PCP Nurse Practitioner Family
DX: S20.212A Contusion of left front wall of thorax, initial encounter (principal); J44.9 Chronic obstructive pulmonary disease, unspecified; I10 Essential (primary) hypertension; G89.29 Other chronic pain; M54.9 Dorsalgia, unspecified; Z87.891 Personal history of nicotine dependence; Z79.52 Long term (current) use of systemic steroids; Z79.82 Long term (current) use of aspirin; Z79.51 Long term (current) use of inhaled steroids; W18.30XA Fall on same level, unspecified, initial encounter
CPT/HCPCS: 71101; 94640; 99283

== ENCOUNTER 2021-11-05 00:11 | Inpatient (IN) | payer MEDICAID, SELFPAY ==
[2021-11-05] VITALS (19 sets, daily range): BP systolic 110–164; BP diastolic 66–126; PULSE 79–106; RESP 16–28; TEMP 36.3–38.7; O2SAT 94–99; BMI 16.6; BMI 16.9
--- NOTE | 2021-11-05 00:23 | XRR_ITS ---
PROCEDURE INFORMATION: Exam: XR Left Ribs with PA Chest Exam date and time: 11/05/2021 12:34 AM Age: 66 years old Clinical indication: Chest wall pain; Prior surgery; Surgery type: Venous filter. Aaa endograft. ; Patient HX: C/O persistent left rib pain and dyspnea since a fall one week ago. History of copd. TECHNIQUE: Imaging protocol: XR Left ribs with PA chest. Views: 3 views COMPARISON: CR (CHEST, ) 10/28/2021 11:06 PM FINDINGS: Lungs: No significant or acute findings. No consolidation. Pleural spaces: No significant costophrenic angle blunting. No pneumothorax. Heart/Mediastinum: Heart size is normal. Vasculature: Distal descending thoracic aorta/upper abdominal aorta and distal aortoiliac endovascular stents in place. Bones/joints: Acute nondisplaced posterior left 7th rib fracture. XR/XR ribs LT mn 3V w CXR1V [id number] IMPRESSION: Acute nondisplaced posterior left 7th rib fracture.
--- NOTE | 2021-11-05 00:33 | ED_ITS ---
HPI - General Adult General: Chief complaint: General Medical Stated complaint: FALL FROM A WEEK AGO Time Seen by Provider: 11/05/21 00:17 History of Present Illness: 66-year-old female comes in today with complaints of cough, left rib pain, and weakness starting yesterday. Patient also reports fever. Patient had fallen 1 week ago and injured her left ribs and reports increasing weakness and discomfort since then. Patient does have severe COPD. Patient appears unwell but not toxic. Patient routinely wears oxygen at 3 L per nasal cannula. Patient is febrile at this time at 101.7. 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 Anemia Atypical chest pain Brain aneurysm Chronic kidney disease CKD stage III, solitary kidney Chronic migraine without aura, intractable, with status migrainosus Congestive heart failure COPD (chronic obstructive pulmonary disease) Depression Endoleak post (EVAR) endovascular aneurysm repair GERD (gastroesophageal reflux disease) History of stent insertion of renal artery Hypercholesteremia Hypertension Hypertensive urgency Resolved Hypothyroidism Inguinal swelling Normal colonoscopy Osteoporosis Peripheral vascular disease Psychiatric care Restless leg Solitary kidney Surgical History H/O: hysterectomy History of renal stent Herculink stent History of repair of aneurysm of abdominal aorta using endovascular stent graft Hx of tonsillectomy S/P appendectomy Family History Mother CAD (coronary artery disease) Chronic kidney disease (CKD) Dementia Stroke Father CAD (coronary artery disease) Cancer Diabetes Brother CAD (coronary artery disease) Cancer Lung disease Grandfather Cancer Grandmother Diabetes Family/Other Lung disease Suicide Other Hypertension Denies family history of Clotting disorder Anesthesia complication Bleeding disorder Social History (Updated 09/24/21 @ 14:29 by Sharmaine Vargas LPN) Smoking and tobacco status: former smoker Quit status (tobacco): has quit using tobacco Year quit tobacco: 2005 - PPD x 35 Years Former quit date comment: Started at age 18 Second hand smoke exposure: No Smoking risk assessment/counseling performed?: No Alcohol intake: never Desire information about alcohol rehabilitation?: No Counseling given: No Adopted: No Caregiver/support person: No Lives independently: Yes Household members: family and children Housing: House Marital status: / Marital status details: 2005 Number of children: 12 Number of grandchildren: 4 Highest education level completed: Master's Degree Education level details: Criminal Justice service: No Current occupational status: disabled Current occupational exposures/hazards: No Pets and animals: Yes Pets & animals: cat(s), dog(s) and farm animals Farm Animals: cattle History of recent travel: No Leisure activites: reading and other Leisure activities details: watch TV Sexually active: No Current gender identity: Female Yudy/Yazidism: Confucianist Nondenominational [employer] Special yudy needs: No Agree to transfusion: Yes Financial difficulty paying for basics: Somewhat Hard Female Reproductive History: Date of last menstrual period: 10/21/20 Para: 0 Spontaneous abortions: Yes Physical Exam Const: COMMON NORMALS: patient oriented x3 and alert HENMT: COMMON NORMALS: Normal external nose present HEAD & SCALP: normal to inspection NOSE: Normal external nose present MOUTH: Normal oral and palatal mucosa present THROAT: posterior oropharynx abnormal erythema Neck/C-Spine: COMMON NORMALS: no meningeal signs Chest: CHEST: Yes tenderness rib (left lower) Resp: EFFORT & INSPECTION: Yes able to speak in complete sentences and Yes audible wheezes AUSCULTATION: rales and wheezes Cardio: COMMON NORMALS: regular rhythm RATE: tachycardic RHYTHM: regular rhythm GI: COMMON NORMALS: Soft to palpation PALPATION: Yes Soft to palpation and No Tenderness to palpation present (GI) Neuro: COMMON NORMALS: patient oriented x3 SENSORIUM/ORIENTATION: Yes alert MENINGEAL SIGNS: Yes no meningeal signs Skin: COMMON NORMALS: no rashes or lesions noted GENERAL SKIN EXAM: no rashes or lesions noted Course ED course: 0110, reviewed patient with Dr. Mcknight who recommended that we go ahead and order a CT of the chest abdomen pelvis due to patient's fever. Influenza test was negative, patient did have 1 nondisplaced rib fracture of the seventh rib. Patient complains of shortness of breath and rib pain. Patient is a frail cachectic emphysema patient started having a fever yesterday. Blood cell count noted a white blood cell 11.7, creatinine was 1.2, liver enzymes were normal, hemoglobin is 9.9, patient does have a history of chronic kidney disease, COPD, hypertension, GERD, and hypothyroidism. 0230, CT of the chest abdomen pelvis did note the seventh rib fracture, bilateral lower lobe atelectasis probable pneumonia. I will contact Dr. Molina, hospitalist for admission to inpatient services. 0239, talk with Dr. Molina she agreed to admission to hospital for probable community-acquired pneumonia. Vital Signs: Vital signs: Vital Signs Temperature 101.7 F H 11/05/21 00:14 Pulse Rate 100 11/05/21 01:52 Respiratory Rate 22 H 11/05/21 01:50 Blood Pressure 164/126 11/05/21 00:14 Pulse Oximetry 94 11/05/21 01:50 MDM - General Adult Medical Decision Making 66-year-old female comes in today with fever starting yesterday and increasing shortness of breath. Patient is a cachectic emphysema patient. On exam patient has crackles in bilateral bases with coarse lung sounds throughout. Sats are 95% at rest but do drop into the mid 80s when she is active or speaking. Abdomen soft nontender. No edema is noted in extremities. Patient is febrile. Differential diagnosis includes pneumonia, urinary tract infection, viral syndrome. Influenza test was negative. Chest x-ray with rib films noted 1 rib fracture of the seventh rib but no obvious infiltrate. White blood cell count was 11.7, sodium was 132, hemoglobin is 9.9. CT of the abdomen pelvis and chest noted some mild posterior bilateral lower lobe atelectasis versus pneumonia. Patient needs admitted for treatment of pneumonia due to her fragile state of COPD and emphysema. Patient was agreeable to plan. Dr. Molina was consulted, hospitalist, and agreed to plan. Lab Data : 11/05/21 00:30 11/05/21 00:30 Radiology Impressions Ribs X-Ray 11/05/21 00:23 IMPRESSION: Acute nondisplaced posterior left 7th rib fracture. Chest/Abdomen/Pelvis CT 11/05/21 01:12 IMPRESSION: 1. Acute or recent slightly displaced fracture of the posterolateral left 7th rib. 2. Upper lung zone emphysema. 3. Very mild posterior bilateral lower lobe and bibasilar atelectasis versus pneumonia. 4. Trace posterior left pleural effusion. 5. Atherosclerotic vascular disease including coronary artery disease. IMPRESSION: 1. No evidence of traumatic visceral injury. 2. Redemonstrated previous distal abdominal aortic aneurysm aortoiliac stent graft repair with patent enhancing stents in place. 3. Chronic small atrophic left kidney. 4. Mild right renal scarring. 5. Large amount of stool throughout the colon suggestive of constipation. 6. Previous hysterectomy. Laboratory Results WBC 11.7 10^3/uL (4.0-10.0) H 11/05/21 00:30 RBC 3.78 10^6/uL (4.1-5.3) L 11/05/21 00:30 Hgb 9.9 g/dL (11.5-15.3) L 11/05/21 00:30 Hct 30.7 % (37.0-47.0) L 11/05/21 00:30 MCV 81.2 fl (81-99) 11/05/21 00:30 MCH 26.2 pg (28.0-34.0) L 11/05/21 00:30 MCHC 32.2 g/dL (30.0-36.0) 11/05/21 00:30 RDW 16.2 % (12.1-15.1) H 11/05/21 00:30 Plt Count 188 10^3/cmm (130-400) 11/05/21 00:30 MPV 8.9 fL (7.4-10.4) 11/05/21 00:30 Neut % (Auto) 78.6 % 11/05/21 00:30 Lymph % (Auto) 17.3 % 11/05/21 00:30 [place] % (Auto) 3.6 % 11/05/21 00:30 Eos % (Auto) 0.0 % 11/05/21 00:30 Baso % (Auto) 0.2 % 11/05/21 00:30 Neut # (Auto) 9.23 10^3/uL (1.8-7.7) H 11/05/21 00:30 Lymph # (Auto) 2.0 10^3/uL (0.8-4.8) 11/05/21:30 [place] # (Auto) 0.4 10^3/uL (0.2-0.9) 11/05/21:30 Eos # (Auto) 0.0 10^3/uL (0.0-0.8) 11/05/21:30 Baso # (Auto) 0.0 10^3/uL (0.0-0.1) 11/05/21: Nucleated RBC % (auto) 0 % 11/05/21 Nucleated RBCs # 0.0 /100WBC 11/05/21 Sodium 132 mmol/L (136-145) L 11/05/21 Potassium 3.9 mmol/L (3.5-5.1) 11/05/21 Chloride 98 mmol/L (98-107) 11/05/21 Carbon Dioxide 21 mmol/L (22-29) L 11/05/21: Anion Gap 16.9 (5-19) 11/05/21 BUN 16 mg/dL (8-23) 11/05/2130 Creatinine 1.2 mg/dL (0.5-0.9) H 11/05/21 GFR Calculation 45.2 mL/min (90-130) L 11/05/21 Glucose 83 mg/dL (65-115) 11/05/21 Calculated Osmolality 274 mOsm/kg (285-295) L 11/05/21 Lactic Acid 1.6 mmol/L (0.5-2.2) 11/05/21 Calcium 9.0 mg/dL (8.5-10.5) 11/05/21 Total Bilirubin 0.2 mg/dL (0.15-1.2) 11/05/21 AST 18 U/L (0-32) 11/05/21 ALT < 5 U/L (0-33) 04/28/22 00:30 Alkaline Phosphatase 93 IU/L (35-105) 11/05/21 00:30 Total Protein 7.0 g/dL (6.6-8.7) 11/05/21 00:30 Albumin 3.5 g/dL (3.5-5.2) 11/05/21 00:30 Globulin 3.5 g/dL (1.3-4.6) 11/05/21 00:30 Influenza Type A Ag Negative (Negative) 11/05/21 00:30 Influenza Type B Ag Negative (Negative) 11/05/21 00:30 Discharge Plan Discharge Patient Disposition: Admitted As Inpatient Clinical Impression: Pneumonia Qualifiers: Pneumonia type: due to unspecified organism Laterality: bilateral Lung locati on: lower lobe of lung Qualified Code(s): J18.9 - Pneumonia, unspecified organism Condition: Stable Coding Level of Care Code ED Milling Supervisor for Leann Fwd Exam Comprehensive
[2021-11-05 00:51] LABS: Basophils % 0.2 %; Hematocrit 30.7 % (37.0-47.0); Hemoglobin 9.9 g/dL (11.5-15.3); Lymphocytes % 17.3 %; Mean Corpuscular HGB Conc 32.2 g/dL (30.0-36.0); Mean Corpuscular Hemoglobin 26.2 pg (28.0-34.0); Mean Corpuscular Volume 81.2 fl (81-99); Mean Platelet Volume 8.9 fL (7.4-10.4); Monocytes # 0.4 10^3/uL (0.2-0.9); Monocytes % 3.6 %; Neutrophils # 9.23 10^3/uL (1.8-7.7); Neutrophils % 78.6 %; Nucleated Red Blood Cells % 0 %; Platelet Count 188 10^3/cmm (130-400); Red Blood Count 3.78 10^6/uL (4.1-5.3); Red Cell Distribution Width 16.2 % (12.1-15.1); White Blood Count 11.7 10^3/uL (4.0-10.0)
[2021-11-05] MEDS: acetaminophen 325 mg Tablet 650 MG PO (01:01)
[2021-11-05] MEDS: sodium chloride 0.9% 500 ML 999 ML IV (01:04)
[2021-11-05] MEDS: morphine 4 mg/mL SDV 1 mL IVP (01:07)
[2021-11-05 01:08] LABS: Alanine Aminotransferase < 5 U/L (0-33); Albumin Level 3.5 g/dL (3.5-5.2); Alkaline Phosphatase 93 IU/L (35-105); Anion Gap 16.9 (5-19); Aspartate Amino Transferase 18 U/L (0-32); Blood Urea Nitrogen 16 mg/dL (8-23); Carbon Dioxide 21 mmol/L (22-29); Chloride 98 mmol/L (98-107); Globulin 3.5 g/dL (1.3-4.6); Glomerular Filtration Rate 45.2 mL/min (90-130); Glucose 83 mg/dL (65-115); Lactic Sepsis W/Reflex 1.6 mmol/L (0.5-2.2); Osmolality Calculated 274 mOsm/kg (285-295); Potassium 3.9 mmol/L (3.5-5.1); Sodium 132 mmol/L (136-145); Total Bilirubin 0.2 mg/dL (0.15-1.2)
[2021-11-05 01:09] LABS: Influenza A by IFA Negative (Negative); Influenza B by IFA Negative (Negative)
--- NOTE | 2021-11-05 01:12 | CTR_ITS ---
PROCEDURE INFORMATION: Exam: CT Chest With Contrast; Diagnostic Exam date and time: 11/05/2021 1:29 AM Age: 66 years old Clinical indication: Other: N/a; Cough and dyspnea; Chest wall pain; Prior surgery; Surgery type: Hysterectomy. Appy. Aaa endograft. ; Patient HX: C/O persistent left rib pain since a fall one week ago. Cough with dyspnea. Fever. Elevated wbc. ; Additional info: Fever, short of breath TECHNIQUE: Imaging protocol: Diagnostic computed tomography of the chest with contrast. Radiation optimization: All CT scans at this facility use at least one of these dose optimization techniques: automated exposure control; mA and/or kV adjustment per patient size (includes targeted exams where dose is matched to clinical indication); or iterative reconstruction. Contrast material: VISI 320; Contrast volume: 60 ml; Contrast route: INTRAVENOUS (IV); COMPARISON: 1. CT angio chest PE protcl [id number] 06/13/2021 10:[address] chest abd pel w con* 07/07/2020 10:38 AM RADIATION DOSE METRICS: Total DLP (mGy-cm): 647.69 FINDINGS: Lungs: Upper lung zone emphysema. Very mild posterior bilateral lower lobe and bibasilar atelectasis versus pneumonia. Pleural spaces: Trace posterior left pleural effusion. Heart: Heart and mediastinal structures appear intact. Heart size is normal. Coronary artery calcifications. Lymph nodes: No enlarged lymph nodes. Aorta: Mild atherosclerotic tortuosity and calcification of the thoracic aorta. No thoracic aortic aneurysm or dissection. Distal descending thoracic aorta/proximal abdominal aorta endovascular stent in place. Bones/joints: Acute or recent slightly displaced fracture of the posterolateral left 7th rib. Mild thoracic kyphoscoliosis, bony demineralization and degenerative bony changes. Soft tissues: No significant soft tissue abnormalities. PROCEDURE INFORMATION: Exam: CT Abdomen And Pelvis With Contrast Exam date and time: 11/05/2021 1:29 AM Age: 66 years old Clinical indication: Other: N/a; Cough and dyspnea; Chest wall pain; Prior surgery; Surgery type: Hysterectomy. Appy. Aaa endograft. ; Patient HX: C/O persistent left rib pain since a fall one week ago. Cough with dyspnea. Fever. Elevated wbc. ; Additional info: Fever, short of breath TECHNIQUE: Imaging protocol: Computed tomography of the abdomen and pelvis with contrast. Radiation optimization: All CT scans at this facility use at least one of these dose optimization techniques: automated exposure control; mA and/or kV adjustment per patient size (includes targeted exams where dose is matched to clinical indication); or iterative reconstruction. Contrast material: VISI 320; Contrast volume: 60 ml; Contrast route: INTRAVENOUS (IV); COMPARISON: 1. CT angio chest PE protcl [id number] 06/13/2021 10:[address] chest abd pel w con* 07/07/2020 10:38 AM RADIATION DOSE METRICS: Total DLP (mGy-cm): 647.69 FINDINGS: Limitations: Mild motion artifact. Liver: No acute abnormality. No mass. Gallbladder and bile ducts: No acute abnormality. No calcified stones. No ductal dilation. Pancreas: No acute abnormality. No ductal dilation. Spleen: No acute abnormality. Adrenal glands: No acute abnormality. No mass. Kidneys and ureters: Chronic small atrophic left kidney. Grossly normal right renal size and configuration with mild right renal scarring. No hydronephrosis or hydroureter. Stomach and bowel: No significant or disproportionate small bowel distention. Large amount of stool throughout the colon suggestive of constipation. No evidence of diverticulitis. Appendix: No findings to suggest acute appendicitis. Intraperitoneal space: No significant fluid collection. No free air. Arteries: Distal descending thoracic aorta/proximal abdominal aorta endovascular stent in place. Redemonstrated previous distal abdominal aortic aneurysm aortoiliac stent graft repair with patent enhancing stents in place. Abdominal aortic aneurysm sac measures 3.2 x 3.6 cm in AP and transverse dimensions, centrally unchanged. Lymph nodes: No enlarged lymph nodes. Urinary bladder: Unremarkable as visualized. Reproductive: Previous hysterectomy. Bones/joints: Mild chronic T12 vertebral body compression deformity. Bony demineralization and degenerative bony changes. Mild thoracolumbar dextroscoliosis. Mild L5 anterolisthesis without spondylolysis. Soft tissues: No significant soft tissue abnormalities. CT/CT chest abd pel w con* IMPRESSION: 1. Acute or recent slightly displaced fracture of the posterolateral left 7th rib. 2. Upper lung zone emphysema. 3. Very mild posterior bilateral lower lobe and bibasilar atelectasis versus pneumonia. 4. Trace posterior left pleural effusion. 5. Atherosclerotic vascular disease including coronary artery disease. IMPRESSION: 1. No evidence of traumatic visceral injury. 2. Redemonstrated previous distal abdominal aortic aneurysm aortoiliac stent graft repair with patent enhancing stents in place. 3. Chronic small atrophic left kidney. 4. Mild right renal scarring. 5. Large amount of stool throughout the colon suggestive of constipation. 6. Previous hysterectomy.
[2021-11-05] MEDS: iodixanol 320 mg/mL 100mL Btl IV (01:33)
[2021-11-05] MEDS: ipratropium-albuterol 3 mL Neb INHALATION (01:50)
[2021-11-05 02:53] LABS: Add Urine Microscopic? YES; Bilirubin Urine Neg (Negative); Blood Urine Trace (Negative); Glucose Urine UA Norm (Normal); Ketones Urine 1+ (Negative); Leukocyte Esterase Urine 1+ (Negative); Nitrate Urine Negative (Negative); Protein Urine 1+ (Negative); Specific Gravity, Urine 1.015 (1.005-1.030); Urine Appearance SL Hazy (CLEAR); Urine Color Yellow (Yellow); Urobilinogen Urine Norm (Negative); pH Urine 5 (5-7)
[2021-11-05 02:59] LABS: Add Urine Culture? No; Bacteria Urine 1+ /hpf; Mucus Urine 1+ /hpf; Squamous Epithelial Cell Urine 15-25 /hpf (0-5)
[2021-11-05] MEDS: azithromycin 500 MG in sodium chloride 0.9% 250 ML 250 MG IV (03:07)
[2021-11-05] MEDS: sodium chloride 0.9% 1,000 ML 75 ML IV (03:10)
[2021-11-05 03:45] LABS: Adenovirus Not Detected (NOT DETECT); Chlamydia Pneumoniae Not Detected (NOT DETECT); Coronavirus 229E,HKU1,NL63,OC4 Not Detected (NOT DETECT); Human Metapneumovirus Not Detected (NOT DETECT); Human Rhinovirus/Enterovirus Detected (NOT DETECT); Influenza A Not Detected (NOT DETECT); Influenza A H1 Not Detected (NOT DETECT); Influenza A H1-2009 Not Detected (NOT DETECT); Influenza A H3 Not Detected (NOT DETECT); Influenza B Not Detected (NOT DETECT); Mycoplasma Pneumoniae Not Detected (NOT DETECT); Parainfluenza Virus Type 1 Not Detected (NOT DETECT); Parainfluenza Virus Type 2 Not Detected (NOT DETECT); Parainfluenza Virus Type 3 Not Detected (NOT DETECT); Parainfluenza Virus Type 4 Not Detected (NOT DETECT); Respiratory Syncytial Virus A Not Detected (NOT DETECT); Respiratory Syncytial Virus B Not Detected (NOT DETECT); SARS-COV-2 Not Detected (NOT DETECT)
[2021-11-05 03:54] LABS: Human Metapneumovirus Not Detected (NOT DETECT); Human Rhinovirus/Enterovirus Detected (NOT DETECT); Results from Genmark
--- NOTE | 2021-11-05 04:14 | PM.HP ---
Providers/Chief Complaint Admitting Physician: Gloria Molina MD Primary Care Provider: HERBERT Masters Chief Complaint: FALL FROM A WEEK AGO History of Present Illness Hali James is a 66 year old female with h/o oxygen and steroid dependent COPD, CKD, solitary kidney, HTN, EVAR endovascular aortic aneurysm repair,and prior tobacco use who presented to ED with worsening dyspnea, cough and fever. Patient was seen in ED on 10/28 following a fall when she noted some left sided rib cage pain. Patient was discharged home. She has since developed fever and chills and dyspnea. Evaluation in ED reveals temp of 101.7, RR of 20 and HR of 90 with BP of 127/83. Labs reveal WBC of 11.7, hemoglobin of 9.9, sodium of 132, K of 3.9,and serum creatinine of 1.2. CT negative for PE, noted to have left seventh rib fracture, posterior bilateral lower lobe atelectasis/infiltrate. Patient on 3 L oxygen at home. COVID and flu negative. She follows with pulmonary and was seen last month. She has been on chronic prednisone. Patient also follows with heme onc for chronic anemia. Patient started on antibiotics and admitted for further management Review of Systems General: Reports: 10 or more systems reviewed and unremarkable except in HPI and below Const: Reports: fever(s), chills, body aches, fatigue and malaise Eyes: Denies: change in vision ENMT: Denies: throat pain or hoarseness Card: Reports: chest pain and dyspnea on exertion; Denies: palpitations or swelling of feet/ankles Resp: Reports: dyspnea, productive cough, wheezing and change in phlegm color GI: Denies: abdominal pain, nausea, vomiting, diarrhea or constipation : Denies: flank pain or urinary frequency Musc: Denies: neck pain or back pain Skin/Breast: Denies: rash, pruritus or erythema Neuro: Denies: headache(s) or numbness in extremities Psych: Reports: anxiety, depression and mood swings Endo: Denies: polyuria, polydipsia or excessive sweating Bill/Lymph: Denies: easy bruising or easy bleeding Medications/Allergies Home Medications Medication Instructions Recorded Confirmed Last Taken Type fluticasone propionate 50 2 spray INTRANASAL DAILY PRN 02/21/20 09/24/21 12/10/20 History mcg/actuation nasal spray,suspension (Flonase Allergy Relief) albuterol sulfate 2.5 mg (3 mL) INHALATION QID PRN 05/15/20 09/24/21 12/10/20 Rx 30 Days #75 ml epinephrine 0.3 mg/0.3 mL 0.3 mg IM Q10M PRN 10/16/20 09/24/21 Unknown History injection, auto-injector acetaminophen 650 mg 650 mg PO Q12H PRN 30 Days #30 tab 10/23/20 09/24/21 12/10/20 Rx tablet,extended release (Tylenol Arthritis Pain) nystatin 100,000 unit/mL oral 4 - 6 ml PO BID 30 Days #480 ml 12/02/20 09/24/21 12/10/20 Rx suspension fremanezumab-vfrm 225 mg/1.5 mL 225 mg (1.5 mL) SUBCUT Q30D #1.5 ml 12/11/20 09/21/21 Unknown Rx subcutaneous auto-injector (Ajovy) baclofen 10 mg tablet 5 mg PO BID PRN #30 tab 12/25/20 09/24/21 Unknown Rx tiotropium bromide 18 mcg capsule See Rx Instructions .ROUTE 05/07/21 09/24/21 Unknown Rx with inhalation device (Spiriva .COMPLEX #30 cap with HandiHaler) bumetanide 1 mg tablet 1 mg PO EVERY OTHER DAY 06/13/21 09/24/21 Unknown History clonidine HCl 0.1 mg tablet 0.1 mg PO BID@0830,2100 #180 tab 07/13/21 09/24/21 Unknown Rx azithromycin 250 mg tablet 250 mg PO .COMPLEX 90 Days #45 tab 07/24/21 09/24/21 Unknown Rx nystatin-triamcinolone 100,000 1 applic TOPICAL TID #30 g 08/05/21 09/24/21 Unknown Rx unit/gram-0.1 % topical ointment albuterol sulfate 90 mcg/actuation 2 puff INHALATION 6XD PRN #6.7 g 08/18/21 09/24/21 Unknown Rx aerosol inhaler amlodipine 5 mg tablet 5 mg PO DAILY@0830 #30 tab 08/18/21 09/24/21 Unknown Rx aspirin 81 mg tablet,delayed 81 mg PO DAILY@0830 30 Days #30 tab 08/18/21 09/24/21 Unknown Rx release budesonide-formoterol HFA 160 2 puff INHALATION BID 30 Days 08/18/21 09/24/21 Unknown Rx mcg-4.5 mcg/actuation aerosol #10.2 g inhaler (Symbicort) hydralazine 100 mg tablet 100 mg PO TID@0830,1400,2100 30 08/18/21 09/24/21 Unknown Rx Days #90 tab isosorbide mononitrate 60 mg 60 mg PO DAILY@0830 30 Days #30 tab 08/18/21 09/24/21 Unknown Rx tablet,extended release 24 hr levothyroxine 50 mcg capsule 50 mcg PO DAILY@0830 30 Days #30 08/18/21 09/24/21 Unknown Rx cap metoprolol succinate 50 mg 50 mg PO BID@0830,2100 30 Days #60 08/18/21 09/24/21 Unknown Rx tablet,extended release 24 hr tab montelukast 10 mg tablet 10 mg PO DAILY@0830 #30 tab 08/18/21 09/24/21 Unknown Rx nitroglycerin 0.4 mg sublingual 0.4 mg SUBLINGUAL Q5M PRN 30 Days 08/18/21 09/24/21 Unknown Rx tablet (Nitrostat) #30 tab omeprazole 20 mg capsule,delayed 20 mg PO DAILY@0830 30 Days #30 cap 08/18/21 09/24/21 Unknown Rx release ropinirole 1 mg tablet 1 mg PO DAILY@2100 30 Days #30 tab 08/18/21 09/24/21 Unknown Rx atorvastatin 20 mg tablet 30 mg PO DAILY #45 tab 08/19/21 09/24/21 Unknown Rx prednisone 10 mg tablet 10 mg PO BID #6 tab 08/19/21 09/21/21 Unknown Rx bupropion HCl 150 mg 24 hr tablet, 150 mg PO QAM #30 tab 09/21/21 09/24/21 Unknown Rx extended release (Wellbutrin XL) buspirone 5 mg tablet 5 mg PO TID #90 tab 09/21/21 09/24/21 Unknown Rx citalopram 40 mg tablet 40 mg PO DAILY@0830 30 Days #30 tab 09/21/21 09/24/21 Unknown Rx hydroxyzine HCl 50 mg tablet 50 mg PO QID PRN #120 tab 09/21/21 09/24/21 Unknown Rx levofloxacin 750 mg tablet 750 mg PO DAILY 5 Days #5 tab 09/24/21 09/24/21 Unknown Rx prednisone 20 mg tablet 20 mg PO BID PRN tab 09/24/21 Unknown History hydrocodone 5 mg-acetaminophen 325 1 tab PO Q8H PRN #9 tab 10/28/21 Unknown Rx mg tablet Allergies Allergy/AdvReac Type Severity Reaction Status Date / Time lisinopril Allergy Severe anaphylaxis Verified 09/24/21 14:17 Sulfa (Sulfonamide AdvReac Intermediate Itching, Verified 09/24/21 14:17 Antibiotics) burning PFSH Acute PFSH: Medical History (Updated 11/05/21 @ 04:31 by Gloria Molina MD) AAA (abdominal aortic aneurysm) 4.1 x 4.4 x 5.7 cm 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 Anemia Atypical chest pain Brain aneurysm Chronic kidney disease CKD stage III, solitary kidney Chronic migraine without aura, intractable, with status migrainosus Congestive heart failure COPD (chronic obstructive pulmonary disease) Depression Endoleak post (EVAR) endovascular aneurysm repair GERD (gastroesophageal reflux disease) History of stent insertion of renal artery Hypercholesteremia Hypertension Hypertensive urgency Resolved Hypothyroidism Inguinal swelling Normal colonoscopy Osteoporosis Peripheral vascular disease Psychiatric care Restless leg Solitary kidney Surgical History H/O: hysterectomy History of renal stent Herculink stent History of repair of aneurysm of abdominal aorta using endovascular stent graft Hx of tonsillectomy S/P appendectomy Family History Mother CAD (coronary artery disease) Chronic kidney disease (CKD) Dementia Stroke Father CAD (coronary artery disease) Cancer Diabetes Brother CAD (coronary artery disease) Cancer Lung disease Grandfather Cancer Grandmother Diabetes Family/Other Lung disease Suicide Other Hypertension Denies family history of Clotting disorder Anesthesia complication Bleeding disorder Social History Smoking and tobacco status: former smoker Quit status (tobacco): has quit using tobacco Year quit tobacco: 2005 - PPD x 35 Years Former quit date comment: Started at age 18 Second hand smoke exposure: No Smoking risk assessment/counseling performed?: No Alcohol intake: never Desire information about alcohol rehabilitation?: No Counseling given: No Adopted: No Caregiver/support person: No Lives independently: Yes Household members: family and children Housing: House Marital status: / Marital status details: 2006 Number of children: 12 Number of grandchildren: 4 Highest education level completed: Master's Degree Education level details: Criminal Justice service: No Current occupational status: disabled Current occupational exposures/hazards: No Pets and animals: Yes Pets & animals: cat(s), dog(s) and farm animals Farm Animals: cattle History of recent travel: No Leisure activites: reading and other Leisure activities details: watch TV Sexually active: No Current gender identity: Female Yudy/Roman Catholic: Hindu [employer] Special yudy needs: No Agree to transfusion: Yes Financial difficulty paying for basics: Somewhat Hard Female Reproductive History: Date of last menstrual period: 10/21/20 Para: 0 Spontaneous abortions: Yes Vitals/I&O/Wt Last Vital Signs Temp 101.7 F H 11/05/21 00:14 Pulse 90 11/05/21 03:20 Resp 20 H 11/05/21 03:20 BP 127/83 11/05/21 03:20 Pulse Ox 96 11/05/21 03:20 Weight last 48 hrs Weight 39.463 kg Weight 38.555 kg Physical Exam Const: GENERAL APPEARANCE: anxious and ill appearing HENMT: HEAD & SCALP: normocephalic and atraumatic Eye: PUPIL: Yes Equal, round and reactive pupils present Neck/C-Spine: GENERAL: Yes trachea midline, No JVD and No Meningeal signs present Chest: CHEST: Yes localized rib tenderness with anteroposterior compression Resp: EFFORT & INSPECTION: Yes tachypneic AUSCULTATION: wheezes scattered wheezes and diminished lung sounds bilateral Cardio: RATE: regular rate RHYTHM: regular rhythm HEART SOUNDS: S1 normal heart sound present, S2 normal heart sound present, no murmurs and no rubs GI: PALPATION: Yes Soft to palpation, No Tenderness to palpation present (GI), No Guarding due to palpation present (GI) and No No hepatosplenomegaly present Back/Pelvis: THORACIC SPINE/UPPER BACK: Yes normal to inspection Extremity: GENERAL: No calf tenderness, No cyanosis and No edema Neuro: COMMON NORMALS: moves all extremities, no focal motor deficits and no sensory deficits noted SENSORIUM/ORIENTATION: Yes alert, Yes oriented to person, Yes oriented to place and Yes oriented to time Psych: MOOD & AFFECT: Yes anxious THOUGHT PROCESS: Normal thought process present ATTENTION/CONCENTRATION: Yes attention grossly intact Skin: GENERAL SKIN EXAM: no rashes or lesions noted and turgor normal Data : 11/05/21 00:30 11/05/21 00:30 Micro: Microbiology 11/05/21 00:32 Blood Culture - Preliminary Blood SPECIMEN COLLECTED 11/05/21 00:30 Blood Culture - Preliminary Blood SPECIMEN COLLECTED A&P Assessment and plan (1) Acute exacerbation of chronic obstructive pulmonary disease (COPD): Patient with GOLD class D COPD on 3 L home oxygen and steroids, presents with worsening dyspnea and fever. Evaluation consistent with bibasilar atelectasis/infiltrates on CT, upper lobe emphysematous changes, negative for PE. Patient febrile with temp of 101.7. Patient negative for COVID/flu. She has had COVID infection last year and is also vaccinated. She sees pulmonary regularly for F/U and was seen last month. Blood cultures obtained. Sputum culture ordered Will begin treatment for community acquired pneumonia with rocephin and zithromax and change Abx pending results of culture. Resume bronchodilators and symbicort and spiriva inhalers as well as singulair Solumedrol 80 mg IV Q 8 Shortly after arrival to medical floor- resp panel did come back positive for Enterovirus/rhinovirus Continue supplemental oxygen- 3 L Status: Acute (2) Pneumonia: As noted above Status: Acute Qualifiers: Laterality: bilateral Lung location: lower lobe of lung Pneumonia type: due to unspecified organism Qualified Code(s): J18.9 - Pneumonia, unspecified organism (3) Left rib fracture: Patient had a fall with left sided pain- seen in ED on 10/28 and discharged with OP follow up. CT today reveals left seventh rib fracture. Pain management, supportive care Status: Acute (4) Hypertension: resume home meds of clonidine and metoprolol Status: Acute Qualifiers: Hypertension type: essential hypertension Qualified Code(s): I10 - Essential (primary) hypertension (5) Generalized anxiety disorder: resume home meds of celexa and buspar Status: Acute (6) Chronic kidney disease: Has solitary kidney Renal function stable with baseline serum creatinine of 1.2 Monitor Status: Acute Qualifiers: Chronic kidney disease stage: stage 3 (moderate) Qualified Code(s): N18.3 - Chronic kidney disease, stage 3 (moderate) (7) Hyponatremia: Chronic, mild with serum sodium of 132 Status: Acute (8) Anemia: Patient has h/o chronic anemia, sees heme onc. Hemoglobin slightly lower than normal at 9.9 Monitor Status: Acute Qualifiers: Anemia type: unspecified type Qualified Code(s): D64.9 - Anemia, unspecified Attestations Medical Necessity Statement*: Anticipated stay is greater than 2 midnights in patient with severe oxygen dependent COPD who presents after fall, left side rib fracture, pneumonia and COPD exacerbation with high risk of worsening respiratory failure. Coding Level of Care Code Acute Ham Pumper for [facility] F[facility] History Detailed Exam Comprehensive Medical Decision Making Moderate Complexity Diagnoses Pneumonia J18.9 Laterality: bilateral Lung location: lower lobe of lung Pneumonia type: due to unspecified organism Hypertension I10 Hypertension type: essential hypertension Generalized anxiety disorder F41.1 Chronic kidney disease N18.3 Chronic kidney disease stage: stage 3 (moderate) Acute exacerbation of chronic obstructive pulmonary disease (COPD) J44.1 Left rib fracture S22.32XA Hyponatremia E87.1 Anemia D64.9 Anemia type: unspecified type
[2021-11-05] MEDS: buPROPion XL (24 HR) 150 mg Tablet PO (05:39)
[2021-11-05] MEDS: cefTRIAXone 1,000 MG in sodium chloride 0.9% (plus) 50 ML 100 MG IV (09:00)
[2021-11-05] MEDS: atorvastatin 40 mg Tablet 30 MG PO (09:01)
[2021-11-05] MEDS: bumetanide 1 mg Tablet PO (09:01)
[2021-11-05] MEDS: cloNIDine 0.1 mg Tablet PO (09:10)
[2021-11-05] MEDS: amlodipine 5 mg Tablet PO (09:10)
[2021-11-05] MEDS: metoprolol succinate ER (24 HR) 50 mg Tablet PO ×2 (09:10→21:51)
[2021-11-05] MEDS: levothyroxine 50 mcg Tablet PO (09:10)
[2021-11-05] MEDS: aspirin 81 mg EC Tablet PO (09:10)
[2021-11-05] MEDS: citalopram 20 mg Tablet 40 MG PO (09:10)
[2021-11-05] MEDS: montelukast sodium 10 mg Tablet PO (09:10)
[2021-11-05] MEDS: pantoprazole DR 40 mg Tablet PO (09:10)
[2021-11-05] MEDS: isosorbide mononitrate ER 60 mg Tablet PO (09:16)
--- NOTE | 2021-11-05 09:25 | PM.MISC ---
Miscellaneous Note Purpose of Documentation: Mini progress note Note: Seen today. Patient was having breakfast. She stated she felt a little bit better. Rhinovirus was positive. Continue antibiotics. Lungs have coarse rhonchi throughout gilliam. same management plan as history and physical document at this point.
[2021-11-05] MEDS: HYDROcodone-acetaminophen 5-325 mg Tablet 1 TAB PO ×2 (10:52→19:31)
--- NOTE | 2021-11-05 10:56 | PC.CHAP ---
Pastoral Care Encounter/Spiritual Assessment Type of Contact [] Declined saw boss visit [] Patient/Family/Request visit [] Outpatient visit [] Follow-up visit [] Physician referral [] Code/Alert [x] Routine visit [] Staff referral [] Actively dying [] Patient sleeping [] Family support [] [] Out of room [] Palliative care [] [] Receiving care in room [] Pre-surgical visit [] Trauma [] Long length of stay [] ICU visit [] Other: Relational/Emotional Strength [] Patient feels connected with others/family/visitors/staff [] Distress [] Loneliness/isolation [] Abandonment Spirituality of Patient [] Person of Yudy [] Attends Quaker of their Yudy [] Believes in Prayer [] Reads Bible or Tenriism materials [] There are Spiritual issues to be addressed Edge Bander Operator Interventions [] Prayer [] Active listening [] Non-anxious presence [] Spiritual/emotional support [] Crisis/trauma care [] Spiritual counseling [] Bereavement support [] Provided bereavement packet [] Provided Bible/devotional materials [] Provided toy/stuffed animal, coloring book to patient or family member [] Provided Communion [] Anointing/Butler [] Salvation [] Completed spiritual assessment [] Other: Impact on Illness or Injury [] Angry [] Fearful [] Anxious [] Often cries [] Exhaustion [] Unable to work [] Unable to attend baptism [] Unable to walk/stand [] Unable to read [] Unable to drive [] Unable to eat/drink [] Unable to sleep [] Unable to be with family [] Patient intubated [] Other: Summary under staff care unable to communicate Time spent with patient 5 mins
[2021-11-05] MEDS: morphine 4 mg/mL SDV 1 mL 2 MG IVP (21:44)
[2021-11-05] MEDS: ropinirole 1 mg Tablet PO (21:49)
[2021-11-06] VITALS (12 sets, daily range): BP systolic 105–147; BP diastolic 67–88; PULSE 71–87; RESP 18–22; TEMP 36.1–36.8; O2SAT 92–98
[2021-11-06] MEDS: sodium chloride 0.9% 1,000 ML 75 ML IV ×3 (03:35→20:27)
[2021-11-06] MEDS: azithromycin 500 MG in sodium chloride 0.9% 250 ML 250 MG IV (03:36)
[2021-11-06] MEDS: HYDROcodone-acetaminophen 5-325 mg Tablet 1 TAB PO ×3 (03:54→20:21)
[2021-11-06 05:53] LABS: Hematocrit 28.8 % (37.0-47.0); Hemoglobin 8.9 g/dL (11.5-15.3); Lymphocytes # 0.6 10^3/uL (0.8-4.8); Lymphocytes % 9.7 %; Mean Corpuscular HGB Conc 30.9 g/dL (30.0-36.0); Mean Corpuscular Hemoglobin 25.8 pg (28.0-34.0); Mean Corpuscular Volume 83.5 fl (81-99); Mean Platelet Volume 9.2 fL (7.4-10.4); Monocytes # 0.1 10^3/uL (0.2-0.9); Neutrophils # 5.33 10^3/uL (1.8-7.7); Neutrophils % 87.8 %; Nucleated Red Blood Cells % 0 %; Platelet Count 184 10^3/cmm (130-400); Red Blood Count 3.45 10^6/uL (4.1-5.3); Red Cell Distribution Width 16.7 % (12.1-15.1); White Blood Count 6.1 10^3/uL (4.0-10.0)
[2021-11-06 06:23] LABS: Anion Gap 18.2 (5-19); Blood Urea Nitrogen 20 mg/dL (8-23); Calcium 9.3 mg/dL (8.5-10.5); Carbon Dioxide 20 mmol/L (22-29); Chloride 101 mmol/L (98-107); Glomerular Filtration Rate 45.2 mL/min (90-130); Glucose 123 mg/dL (65-115); Osmolality Calculated 284 mOsm/kg (285-295); Potassium 4.2 mmol/L (3.5-5.1); Sodium 135 mmol/L (136-145)
[2021-11-06] MEDS: buPROPion XL (24 HR) 150 mg Tablet PO (06:49)
[2021-11-06] MEDS: montelukast sodium 10 mg Tablet PO (07:54)
[2021-11-06] MEDS: aspirin 81 mg EC Tablet PO (07:54)
[2021-11-06] MEDS: metoprolol succinate ER (24 HR) 50 mg Tablet PO ×2 (07:54→20:21)
[2021-11-06] MEDS: cloNIDine 0.1 mg Tablet PO ×2 (07:54→20:21)
[2021-11-06] MEDS: levothyroxine 50 mcg Tablet PO (07:54)
[2021-11-06] MEDS: hyDROXYzine 25 mg Capsule 50 MG PO ×2 (07:54→20:21)
[2021-11-06] MEDS: isosorbide mononitrate ER 60 mg Tablet PO (07:54)
[2021-11-06] MEDS: citalopram 20 mg Tablet 40 MG PO (07:54)
[2021-11-06] MEDS: pantoprazole DR 40 mg Tablet PO (07:54)
[2021-11-06] MEDS: amlodipine 5 mg Tablet PO (07:55)
[2021-11-06] MEDS: atorvastatin 40 mg Tablet 30 MG PO (07:55)
[2021-11-06] MEDS: cefTRIAXone 1,000 MG in sodium chloride 0.9% (plus) 50 ML 100 MG IV (07:57)
--- NOTE | 2021-11-06 11:26 | P.PN_ITS ---
Subjective Subjective: continues to complain of pain at her rib fractures. She states her breathing is a little bit better. However she does not quite feel back to baseline yet. Patient seen no acute events overnight. Vitals/I&O/Wt Last Vital Signs Temp 96.9 F L 11/06/21 08:47 Pulse 87 11/06/21 08:47 Resp 18 11/06/21 08:47 BP 123/79 11/06/21 08:47 Pulse Ox 94 11/06/21 08:47 11/05/21 11/06/21 11/06/21 22:59 06:59 14:59 Intake Total 1300 / 1710 442.5 / 2152.5 240 / 240 Output Total 210 / 210 Balance 1300 / 1210 442.5 / 1652.5 30 / 30 Weight last 48 hrs Weight 39.463 kg Weight 38.555 kg Physical Exam Narrative: General: Alert oriented x3, very frail cachectic appearing female seen sitting up in bed having breakfast. Overall looks comfortable. On nasal cannula 2 L. HEENT: Normocephalic, atraumatic, EOMI, breathing comfortably Cardio: Regular rate rhythm, normal S1-S2, no murmurs Respiratory: Diminished bilateral air entry, gross rhonchi present throughout lung gilliam. GI: Abdomen soft, nontender, nondistended, bowel sounds + Behavior: Appropriate and cooperative Extremities:no edema, no cyanosis Data : 11/06/21 05:24 11/06/21 05:24 Micro: Microbiology 11/05/21 00:32 Blood Culture - Preliminary Blood NEGATIVE TO DATE 11/05/21 00:30 Blood Culture - Preliminary Blood NEGATIVE TO DATE A&P Assessment and plan (1) Acute exacerbation of chronic obstructive pulmonary disease (COPD): Status: Acute (2) Pneumonia: Status: Acute Qualifiers: Laterality: bilateral Lung location: lower lobe of lung Pneumonia type: due to unspecified organism Qualified Code(s): J18.9 - Pneumonia, unspecified organism (3) Left rib fracture: Status: Acute (4) Hyponatremia: Status: Acute (5) Hypertension: Status: Acute Qualifiers: Hypertension type: essential hypertension Qualified Code(s): I10 - Essential (primary) hypertension (6) Anemia: Status: Acute Qualifiers: Anemia type: unspecified type Qualified Code(s): D64.9 - Anemia, unspecified (7) Chronic kidney disease: Status: Acute Qualifiers: Chronic kidney disease stage: stage 3 (moderate) Qualified Code(s): N18.3 - Chronic kidney disease, stage 3 (moderate) Plan #Acute exacerbation of COPD #Pneumonia #Left rib fractures #Hypertension #General anxiety disorder #CKD #Solitary kidney #Mild hyponatremia #Chronic anemia ? Gold class D COPD on 3 L home oxygen and steroids. Upper lobe emphysematous changes. Negative for PE. ? Positive for rhinovirus. ? Sputum culture not collected yet. Awaiting collection results. ? Continue Rocephin and Zithromax. ? Continue duo nebs and breathing treatments ? Solu-Medrol 40 IV every 8 hours. -Lidocaine patch for rib fractures. Pain management ? Continue all other home medications ? PT consult today ? Patient is improving nicely. Possible discharge in a.m. after further clinical improvement. Attestations Medical Necessity Statement*: Possible discharge in a.m. after further clinical improvement. Coding Level of Care Code Acute Mincing Machine Operator for [facility] Diagnoses Acute exacerbation of chronic obstructive pulmonary disease (COPD) J44.1 Pneumonia J18.9 Laterality: bilateral Lung location: lower lobe of lung Pneumonia type: due to unspecified organism Left rib fracture S22.32XA Hyponatremia E87.1 Hypertension I10 Hypertension type: essential hypertension Anemia D64.9 Anemia type: unspecified type Chronic kidney disease N18.3 Chronic kidney disease stage: stage 3 (moderate)
[2021-11-06] MEDS: lidocaine 5% Patch 1 PATCH TOPICAL ×2 (14:15→20:21)
[2021-11-06] MEDS: ropinirole 1 mg Tablet PO (20:21)
[2021-11-07] VITALS (8 sets, daily range): BP systolic 96–149; BP diastolic 58–88; PULSE 78–89; RESP 18–24; TEMP 36.4–36.8; O2SAT 97–98
[2021-11-07] MEDS: azithromycin 500 MG in sodium chloride 0.9% 250 ML 250 MG IV (02:18)
[2021-11-07 04:45] LABS: Basophils % 0.1 %; Hematocrit 26.7 % (37.0-47.0); Hemoglobin 8.2 g/dL (11.5-15.3); Lymphocytes # 0.4 10^3/uL (0.8-4.8); Lymphocytes % 5.3 %; Mean Corpuscular HGB Conc 30.7 g/dL (30.0-36.0); Mean Corpuscular Hemoglobin 25.8 pg (28.0-34.0); Mean Platelet Volume 9.3 fL (7.4-10.4); Monocytes # 0.2 10^3/uL (0.2-0.9); Monocytes % 1.8 %; Neutrophils # 7.53 10^3/uL (1.8-7.7); Neutrophils % 92.3 %; Nucleated Red Blood Cells % 0 %; Platelet Count 214 10^3/cmm (130-400); Red Blood Count 3.18 10^6/uL (4.1-5.3); White Blood Count 8.2 10^3/uL (4.0-10.0)
[2021-11-07] MEDS: buPROPion XL (24 HR) 150 mg Tablet PO (05:01)
[2021-11-07 05:06] LABS: Anion Gap 15.3 (5-19); Blood Urea Nitrogen 21 mg/dL (8-23); Calcium 9.3 mg/dL (8.5-10.5); Carbon Dioxide 20 mmol/L (22-29); Chloride 107 mmol/L (98-107); Glomerular Filtration Rate 41.2 mL/min (90-130); Glucose 114 mg/dL (65-115); Magnesium 1.9 mg/dL (1.7-2.3); Osmolality Calculated 290 mOsm/kg (285-295); Potassium 4.3 mmol/L (3.5-5.1); Sodium 138 mmol/L (136-145)
[2021-11-07] MEDS: HYDROcodone-acetaminophen 5-325 mg Tablet 1 TAB PO (05:06)
[2021-11-07 05:08] LABS: Creatinine Clr Calc Pharmacy 29.7362
[2021-11-07] MEDS: cefTRIAXone 1,000 MG in sodium chloride 0.9% (plus) 50 ML 100 MG IV (08:14)
[2021-11-07] MEDS: hyDROXYzine 25 mg Capsule 50 MG PO (08:15)
[2021-11-07] MEDS: pantoprazole DR 40 mg Tablet PO (08:15)
[2021-11-07] MEDS: cloNIDine 0.1 mg Tablet PO (08:15)
[2021-11-07] MEDS: levothyroxine 50 mcg Tablet PO (08:15)
[2021-11-07] MEDS: aspirin 81 mg EC Tablet PO (08:15)
[2021-11-07] MEDS: bumetanide 1 mg Tablet PO (08:15)
[2021-11-07] MEDS: atorvastatin 40 mg Tablet 30 MG PO (08:16)
[2021-11-07] MEDS: montelukast sodium 10 mg Tablet PO (08:16)
[2021-11-07] MEDS: amlodipine 5 mg Tablet PO (08:16)
[2021-11-07] MEDS: citalopram 20 mg Tablet 40 MG PO (08:16)
[2021-11-07] MEDS: lidocaine 5% Patch 1 PATCH TOPICAL (08:16)
[2021-11-07] MEDS: isosorbide mononitrate ER 60 mg Tablet PO (08:16)
[2021-11-07] MEDS: metoprolol succinate ER (24 HR) 50 mg Tablet PO (08:16)
--- NOTE | 2021-11-07 08:43 | P.DS_ITS ---
Discharge Providers Date of Admission: 11/05/21 03:54 Date of Discharge: November 07, 2021 Attending Provider at Admission: Gloria Molina MD Attending Provider at Discharge: Sandy Suarez MD Primary Care Provider: HERBERT Masters Diagnoses at Discharge Discharge Diagnosis (1) Acute exacerbation of chronic obstructive pulmonary disease (COPD): Status: Acute (2) Pneumonia: Status: Acute Qualifiers: Laterality: bilateral Lung location: lower lobe of lung Pneumonia type: due to unspecified organism Qualified Code(s): J18.9 - Pneumonia, unspecified organism (3) Left rib fracture: Status: Acute (4) Hyponatremia: Status: Acute (5) Hypertension: Status: Acute Qualifiers: Hypertension type: essential hypertension Qualified Code(s): I10 - Essential (primary) hypertension (6) Anemia: Status: Acute Qualifiers: Anemia type: unspecified type Qualified Code(s): D64.9 - Anemia, unspecified (7) Chronic kidney disease: Status: Acute Qualifiers: Chronic kidney disease stage: stage 3 (moderate) Qualified Code(s): N18.3 - Chronic kidney disease, stage 3 (moderate) Permanent problem details: CKD stage III, solitary kidney Reason for Visit Reason for Visit: FALL FROM A WEEK AGO Brief History: HPI as per Dr. Molina Hali James is a 66 year old female with h/o oxygen and steroid dependent COPD, CKD, solitary kidney, HTN, EVAR endovascular aortic aneurysm repair,and prior tobacco use who presented to ED with worsening dyspnea, cough and fever. Patient was seen in ED on 10/28 following a fall when she noted some left sided rib cage pain. Patient was discharged home. She has since developed fever and chills and dyspnea. Evaluation in ED reveals temp of 101.7, RR of 20 and HR of 90 with BP of 127/83. Labs reveal WBC of 11.7, hemoglobin of 9.9, sodium of 132, K of 3.9,and serum creatinine of 1.2. CT negative for PE, noted to have left seventh rib fracture, posterior bilateral lower lobe atelectasis/infiltrate. Patient on 3 L oxygen at home. COVID and flu negative. She follows with pulmonary and was seen last month. She has been on chronic prednisone. Patient also follows with heme onc for chronic anemia. Patient started on antibiotics and admitted for further management Hospital Course Hospital Course Admitted for pneumonia. DC home on ceftriaxone and azithromycin. , with prednisone for 3 more days. Patient to follow up with pulm and pcp. Lidocaine patches ordered for rib pain. Advised her to take tylenol for pain which she is agreeable to. All questions aswered. Patient feeling better. Lung exam much improved compared to prior days. Patient setup with rolling walker. Physical Exam Narrative: General: Alert oriented x3, very frail cachectic appearing female seen sitting up in bed.? Overall looks comfortable.? On nasal cannula 2 L. HEENT: Normocephalic, atraumatic, EOMI, breathing comfortably Cardio: Regular rate rhythm, normal S1-S2, no murmurs Respiratory: Diminished bilateral air entry, no gross wheezes, ronchi are improved as well. Seems back to baseline. GI: Abdomen soft, nontender, nondistended, bowel sounds + Behavior: Appropriate and cooperative Extremities:no edema, no cyanosis Discharge Data Studies Completed and Pending Completed Studies During Hospitalization Category Date Time Status CT chest abd pel w con* Urgent Cat Scan 11/05/21 01:12 Completed XR ribs LT mn 3V w CXR1V [id number] Stat Exams 11/05/21 00:23 Completed Pending at discharge Category Date Time Status Blood Culture Stat Lab 11/05/21 00:32 Results Sputum Culture and Gram Stain Routine Lab 11/05/21 04:12 Uncollected Radiology Impressions Ribs X-Ray 11/05/21 00:23 IMPRESSION: Acute nondisplaced posterior left 7th rib fracture. Chest/Abdomen/Pelvis CT 11/05/21 01:12 IMPRESSION: 1. Acute or recent slightly displaced fracture of the posterolateral left 7th rib. 2. Upper lung zone emphysema. 3. Very mild posterior bilateral lower lobe and bibasilar atelectasis versus pneumonia. 4. Trace posterior left pleural effusion. 5. Atherosclerotic vascular disease including coronary artery disease. IMPRESSION: 1. No evidence of traumatic visceral injury. 2. Redemonstrated previous distal abdominal aortic aneurysm aortoiliac stent graft repair with patent enhancing stents in place. 3. Chronic small atrophic left kidney. 4. Mild right renal scarring. 5. Large amount of stool throughout the colon suggestive of constipation. 6. Previous hysterectomy. Laboratory Results WBC 8.2 10^3/uL (4.0-10.0) 11/07/21 03:45 RBC 3.18 10^6/uL (4.1-5.3) L 11/07/21 03:45 Hgb 8.2 g/dL (11.5-15.3) L 11/07/21 03:45 Hct 26.7 % (37.0-47.0) L 11/07/21 03:45 MCV 84.0 fl (81-99) 11/07/21 03:45 MCH 25.8 pg (28.0-34.0) L 11/07/21 03:45 MCHC 30.7 g/dL (30.0-36.0) 11/07/21 03:45 RDW 17.0 % (12.1-15.1) H 11/07/21 03:45 Plt Count 214 10^3/cmm (130-400) 11/07/21 03:45 MPV 9.3 fL (7.4-10.4) 11/07/21 03:45 Neut % (Auto) 92.3 % 11/07/21 03:45 Lymph % (Auto) 5.3 % 11/07/21 03:45 [place] % (Auto) 1.8 % 11/07/21 03:45 Eos % (Auto) 0.0 % 11/07/21 03:45 Baso % (Auto) 0.1 % 11/07/21 03:45 Neut # (Auto) 7.53 10^3/uL (1.8-7.7) 11/07/21 03:45 Lymph # (Auto) 0.4 10^3/uL (0.8-4.8) L 11/07/21 03:45 [place] # (Auto) 0.2 10^3/uL (0.2-0.9) 11/07/21 03:45 Eos # (Auto) 0.0 10^3/uL (0.0-0.8) 11/07/21 03:45 Baso # (Auto) 0.0 10^3/uL (0.0-0.1) 11/07/21 03:45 Nucleated RBC % (auto) 0 % 11/07/21 03:45 Nucleated RBCs # 0.0 /100WBC 11/07/21 03:45 Sodium 138 mmol/L (136-145) 11/07/21 03:45 Potassium 4.3 mmol/L (3.5-5.1) 11/07/21 03:45 Chloride 107 mmol/L (98-107) 11/07/21 03:45 Carbon Dioxide 20 mmol/L (22-29) L 11/07/21 03:45 Anion Gap 15.3 (5-19) 11/07/21 03:45 BUN 21 mg/dL (8-23) 11/07/21 03:45 Creatinine 1.3 mg/dL (0.5-0.9) H 11/07/21 03:45 GFR Calculation 41.2 mL/min (90-130) L 11/07/21 03:45 Glucose 114 mg/dL (65-115) 11/07/21 03:45 Calculated Osmolality 290 mOsm/kg (285-295) 11/07/21 03:45 Lactic Acid 1.6 mmol/L (0.5-2.2) 11/05/21 00:30 Calcium 9.3 mg/dL (8.5-10.5) 11/07/21 03:45 Magnesium 1.9 mg/dL (1.7-2.3) 11/07/21 03:45 Total Bilirubin 0.2 mg/dL (0.15-1.2) 11/05/21 00:30 AST 18 U/L (0-32) 11/05/21 00:30 ALT < 5 U/L (0-33) 11/05/21 00:30 Alkaline Phosphatase 93 IU/L (35-105) 11/05/21 00:30 Total Protein 7.0 g/dL (6.6-8.7) 11/05/21 00:30 Albumin 3.5 g/dL (3.5-5.2) 11/05/21 00:30 Globulin 3.5 g/dL (1.3-4.6) 11/05/21 00:30 Urine Color Yellow (Yellow) 11/05/21 02:30 Urine Appearance Sl hazy (CLEAR) 11/05/21 02:30 Urine pH 5 (5-7) 11/05/21 02:30 Ur Specific [place] 1.015 (1.005-1.030) 11/05/21 02:30 Urine Protein 1+ (Negative) H 11/05/21 02:30 Urine Glucose (UA) Norm (Normal) 11/05/21 02:30 Urine Ketones 1+ (Negative) H 11/05/21 02:30 Urine Blood Trace (Negative) H 11/05/21 02:30 Urine Nitrate Negative (Negative) 11/05/21 02:30 Urine Bilirubin Neg (Negative) 11/05/21 02:30 Urine Urobilinogen Norm mg/dL (Negative) 11/05/21 02:30 Ur Leukocyte Esterase 1+ (Negative) H 11/05/21 02:30 Urine RBC 5-10 /hpf (0-2) H 11/05/21 02:30 Urine WBC 10-15 /hpf (0-5) H 11/05/21 02:30 Ur Squamous Epith Cells 15-25 /hpf (0-5) H 11/05/21 02:30 Amorphous Sediment Not Reportable 11/05/21 02:30 Urine Bacteria 1+ /hpf (NONE) H 11/05/21 02:30 Urine Mucus 1+ /hpf 11/05/21 02:30 Coronavirus 229E (PCR) Not detected (NOT DETECT) 11/05/21 01:50 Human Metapneumovir PCR Not detected (NOT DETECT) 11/05/21 03:53 Influenza Type A Ag Negative (Negative) 11/05/21 00:30 Influenza Type B Ag Negative (Negative) 11/05/21 00:30 Entero/Rhino (PCR) Detected (NOT DETECT) A 11/05/21 03:53 SARS-CoV-2 (PCR) Not detected (NOT DETECT) 11/05/21 01:50 Vitals Last Vital Signs Temp 97.8 F 11/07/21 08:00 Pulse 89 11/07/21 08:00 Resp 20 H 11/07/21 08:00 BP 128/81 11/07/21 08:15 Pulse Ox 98 11/07/21 08:00 Discharge Plan Discharge Patient Disposition: Home Condition: Stable Prescriptions: New cefdinir 300 mg capsule 300 mg PO BID 5 Days Qty: 10 0RF azithromycin 500 mg tablet 500 mg PO DAILY 5 Days Qty: 5 0RF prednisone 20 mg tablet 40 mg PO DAILY 3 Days Qty: 6 0RF lidocaine 5 % adhesive patch,medicated 1 patch topical DAILY 14 Days Qty: 15 0RF Rx Instructions: leave on most painful area (fractured rib) for up to 12 hrs then remove. 12 H on 12 H off Continued nystatin-triamcinolone 100,000-0.1 unit/gram-% ointment 1 applic topical TID Qty: 30 0RF albuterol sulfate 2.5 mg /3 mL (0.083 %) solution for nebulization 2.5 mg INHALATION QID PRN (Reason: Shortness Of Breath) 30 Days Qty: 75 5RF Ajovy Autoinjector 225 mg/1.5 mL auto-injector 225 mg SUBCUT Q30D Qty: 1.5 2RF epinephrine 0.3 mg/0.3 mL auto-injector 0.3 mg IM Q10M PRN (Reason: Allergic Reaction) 0RF Rx Instructions: for 2 doses nystatin 100,000 unit/mL suspension 4 - 6 ml PO BID 30 Days Qty: 480 2RF Rx Instructions: swish and spit bupropion HCl [Wellbutrin XL] 150 mg tablet extended release 24 hr 150 mg PO QAM Qty: 30 2RF buspirone 5 mg tablet 5 mg PO TID Qty: 90 2RF citalopram 40 mg tablet 40 mg PO DAILY@0830 30 Days Qty: 30 2RF hydroxyzine HCl 50 mg tablet 50 mg PO QID PRN (Reason: anxiety) Qty: 120 2RF ropinirole 1 mg tablet 1 mg PO DAILY@2099 30 Days Qty: 30 5RF omeprazole 20 mg capsule,delayed release(DR/EC) 20 mg PO DAILY@30 30 Days Qty: 30 5RF nitroglycerin [Nitrostat] 0.4 mg tablet, sublingual 0.4 mg SUBLINGUAL Q5M PRN (Reason: Chest Pain) 30 Days Qty: 30 5RF metoprolol succinate 50 mg tablet extended release 24 hr 50 mg PO BID@0830,2099 30 Days Qty: 60 5RF isosorbide mononitrate 60 mg tablet extended release 24 hr 60 mg PO DAILY@0830 30 Days Qty: 30 5RF hydralazine 100 mg tablet 100 mg PO TID@0830,1400,2100 30 Days Qty: 90 5RF budesonide-formoterol [Symbicort] 160-4.5 mcg/actuation HFA aerosol inhaler 2 puff inhalation BID 30 Days Qty: 10.2 5RF aspirin 81 mg tablet,delayed release (DR/EC) 81 mg PO DAILY@829 30 Days Qty: 30 5RF amlodipine 5 mg tablet 5 mg PO DAILY@829 Qty: 30 5RF albuterol sulfate 90 mcg/actuation HFA aerosol inhaler 2 puff INHALATION 6XD PRN (Reason: Shortness Of Breath) Qty: 6.7 5RF montelukast 10 mg tablet 10 mg PO DAILY@829 Qty: 30 5RF levothyroxine 50 mcg capsule 50 mcg PO DAILY@829 30 Days Qty: 30 5RF atorvastatin 20 mg tablet 30 mg PO DAILY Qty: 45 5RF Spiriva with HandiHaler 18 mcg capsule, w/inhalation device See Rx Instructions .ROUTE .COMPLEX Qty: 30 6RF Dose Instruction: INHALE CONTENTS OF 1 CAPSULE INTO LUNGS USING HANDIHALER ONCE DAILY; ONE DOSE = 2 INHALATIONS Rx Instructions: INHALE CONTENTS OF 1 CAPSULE INTO LUNGS USING HANDIHALER ONCE DAILY; ONE DOSE = 2 INHALATIONS clonidine HCl 0.1 mg tablet 0.1 mg PO BID@829,2099 Qty: 180 3RF bumetanide 1 mg Tablet 1 mg PO EVERY OTHER DAY 0RF fluticasone propionate [Flonase Allergy Relief] 50 mcg/actuation [place],Suspension 2 spray INTRANASAL DAILY PRN (Reason: Nasal Congestion) 0RF hydrocodone-acetaminophen 5-325 mg tablet 1 tab PO Q8H PRN (Reason: pain) Qty: 9 0RF Discharge Orders: Discharge Order (Routine); Ordered 11/07/21 Ordered By: Sandy Suarez Other Ambulatory Orders: DME: Walker (Order) Location: None Selected Ordered By: Sandy Suarez Referrals: [facility] [Outside] Nancy Carrasco FNP-C [Primary Care Provider] - 1 week (Please call Nancy Carrasco's Office at [phone] to schedule a follow up appointment. Please call that same number if you have any questions or concerns. Thank you. ) January Beltre MD [Physician] - 2 weeks (Please call Dr Beltre's Office at [phone] to schedule a follow up appointment. Please call that same number if you have any questions or concerns. Thank you. ) Discharge Diet: Usual diet Discharge Activity: Resume usual activity, Use walker/crutches as instructed and Oxygen as instructed Patient Instructions: Prednisone (By mouth), Azithromycin (By mouth), Cefdinir (By mouth), Lidocaine Patch (On the skin), COPD (Chronic Obstructive Pulmonary Disease) (GEN), Pneumonia (GEN), Opioid Safety Discharge Attestations Time Spent in Discharge Care*: less than 30 min Status at Discharge: Cognitive status at discharge: cognitively intact , Behavioral status at discharge: cooperative , Quality Metrics Clinical Quality Measures [ No reported AMI, CVA or VTE this stay] Coding Level of Care Code Acute [facility] [place] note Diagnoses Acute exacerbation of chronic obstructive pulmonary disease (COPD) J44.1 Pneumonia J18.9 Laterality: bilateral Lung location: lower lobe of lung Pneumonia type: due to unspecified organism Left rib fracture S22.32XA Hyponatremia E87.1 Hypertension I10 Hypertension type: essential hypertension Anemia D64.9 Anemia type: unspecified type Chronic kidney disease N18.3 Chronic kidney disease stage: stage 3 (moderate)
== END 2021-11-07 13:30 | disposition home health service (06) | DRG 190 ==
LOC: ER 02:37 → MEDSURG 06:29
PROVIDERS: Admitting Provider Internal Medicine; Emergency Provider Nurse Practitioner Family; PCP Nurse Practitioner Family; Visit Provider Internal Medicine
DX: J43.9 Emphysema, unspecified (principal); J18.9 Pneumonia, unspecified organism; S22.32XA Fracture of one rib, left side, initial encounter for closed fracture; I13.0 Hypertensive heart and chronic kidney disease with heart failure and stage 1 through stage 4 chronic kidney disease, or unspecified chronic kidney disease; Q60.0 Renal agenesis, unilateral; E87.1 Hypo-osmolality and hyponatremia; Z99.81 Dependence on supplemental oxygen; Z87.891 Personal history of nicotine dependence; N18.30 Chronic kidney disease, stage 3 unspecified; I50.9 Heart failure, unspecified; W19.XXXA Unspecified fall, initial encounter; D63.1 Anemia in chronic kidney disease; I71.4 Abdominal aortic aneurysm, without rupture; E03.9 Hypothyroidism, unspecified; G25.81 Restless legs syndrome; I73.9 Peripheral vascular disease, unspecified; F41.1 Generalized anxiety disorder; B97.89 Other viral agents as the cause of diseases classified elsewhere; Z79.51 Long term (current) use of inhaled steroids; Z79.82 Long term (current) use of aspirin; Z79.891 Long term (current) use of opiate analgesic
CPT/HCPCS: 12345; 36415; 71101; 71260; 74177; 80048; 80053; 81001; 83605; 83735; 85025; 87040; 87635; 87801; 87804; 94640; 96365; 96375; 97110; 97116; 97161; 99285; J0456; J0696; J2270; J2920; J2930; J7030; J7040; J7050; J7611; Q9967

== ENCOUNTER → 2021-11-25 10:21 | Outpatient (BNVA) | payer MEDICAID, SELFPAY | PROVIDERS: PCP Nurse Practitioner Family; Visit Provider Internal Medicine Critical Care Medicine | DX: J44.9 Chronic obstructive pulmonary disease, unspecified (principal); J18.9 Pneumonia, unspecified organism; R21 Rash and other nonspecific skin eruption; Z09 Encounter for follow-up examination after completed treatment for conditions other than malignant neoplasm; Z87.891 Personal history of nicotine dependence; K21.9 Gastro-esophageal reflux disease without esophagitis; I10 Essential (primary) hypertension | CPT/HCPCS: 99214 ==

== ENCOUNTER 2021-12-06 19:16 | Emergency (ER) | payer MEDICAID, SELFPAY ==
[2021-12-06 19:22] VITALS: BP 124/78; PULSE 80; RESP 17; TEMP 36.8; O2SAT 95; BMI 16.6
--- NOTE | 2021-12-06 19:45 | XRR_ITS ---
PROCEDURE INFORMATION: Exam: XR Chest Exam date and time: 12/06/2021 8:00 PM Age: 66 years old Clinical indication: Cough and fever and shortness of breath; Additional info: Cough fever TECHNIQUE: Imaging protocol: XR of the chest. Views: 1 view. COMPARISON: CT chest abd pel w con* 11/05/2021 1:29 AM FINDINGS: Lungs: Emphysematous changes. Pleural spaces: Unremarkable. No pleural effusion. No pneumothorax. Heart/Mediastinum: Unremarkable. No cardiomegaly. Bones/joints: Unremarkable. XR/XR chest 1V portable [id number] IMPRESSION: Emphysematous changes, negative for infiltrate
--- NOTE | 2021-12-06 19:45 | XRR_ITS ---
PROCEDURE INFORMATION: Exam: XR Soft Tissue Neck Exam date and time: 12/06/2021 8:02 PM Age: 66 years old Clinical indication: Dysphagia / difficulty swallowing; Additional info: Throat tightness TECHNIQUE: Imaging protocol: XR of the soft tissues of the neck. COMPARISON: CT neck w con* [id number] 06/12/2018 8:26 AM FINDINGS: Airway: Normal. No abnormal narrowing. Soft tissues: Normal. Normal epiglottis. Bones/joints: Multilevel moderate to severe disc space narrowing throughout the cervical spine. Vasculature: Bilateral carotid artery atherosclerotic calcifications. XR/XR soft tissue neck [id number] IMPRESSION: 1. Airway appears patent. 2. Multilevel moderate to severe disc space narrowing throughout the cervical spine. 3. Bilateral carotid artery atherosclerotic calcifications.
[2021-12-06 20:00] VITALS: BP 112/61; PULSE 79; RESP 18; O2SAT 97
[2021-12-06] MEDS: lidocaine 2% viscous 15 ML, aluminum-mag hydrox-simethicon 30 ML, sucralfate oral liq 1 GM PO (20:12)
[2021-12-06 20:13] LABS: Basophils % 0.4 %; Eosinophils # 0.2 10^3/uL (0.0-0.8); Hematocrit 34.4 % (37.0-47.0); Hemoglobin 10.8 g/dL (11.5-15.3); Lymphocytes # 2.1 10^3/uL (0.8-4.8); Lymphocytes % 28.1 %; Mean Corpuscular HGB Conc 31.4 g/dL (30.0-36.0); Mean Corpuscular Hemoglobin 26.7 pg (28.0-34.0); Mean Corpuscular Volume 85.1 fl (81-99); Mean Platelet Volume 8.7 fL (7.4-10.4); Monocytes # 0.6 10^3/uL (0.2-0.9); Monocytes % 7.4 %; Neutrophils # 4.61 10^3/uL (1.8-7.7); Neutrophils % 60.7 %; Nucleated Red Blood Cells % 0 %; Platelet Count 193 10^3/cmm (130-400); Red Blood Count 4.04 10^6/uL (4.1-5.3); Red Cell Distribution Width 15.9 % (12.1-15.1); White Blood Count 7.6 10^3/uL (4.0-10.0)
--- NOTE | 2021-12-06 20:20 | W.ED.GENADLT ---
HPI - General Adult General: Chief complaint: General Medical Stated complaint: throat swelling shut Time Seen by Provider: 12/06/21 19:34 Source: patient History of Present Illness: 66-year-old female with a history of COPD. She presents with sore throat symptoms for the past 3 to 4 days. She notes that it is hard to swallow, mainly due to pain. She has had sinus drainage and congestion worse in the morning. She has had an increased cough as well. No real increased shortness of breath per se. 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 Anemia Atypical chest pain Brain aneurysm Chronic kidney disease CKD stage III, solitary kidney Chronic migraine without aura, intractable, with status migrainosus Congestive heart failure COPD (chronic obstructive pulmonary disease) Depression Endoleak post (EVAR) endovascular aneurysm repair GERD (gastroesophageal reflux disease) History of stent insertion of renal artery Hypercholesteremia Hypertension Hypertensive urgency Resolved Hypothyroidism Inguinal swelling Normal colonoscopy Osteoporosis Peripheral vascular disease Psychiatric care Restless leg Solitary kidney Surgical History H/O: hysterectomy History of renal stent Herculink stent History of repair of aneurysm of abdominal aorta using endovascular stent graft Hx of tonsillectomy S/P appendectomy Family History Mother CAD (coronary artery disease) Chronic kidney disease (CKD) Dementia Stroke Father CAD (coronary artery disease) Cancer Diabetes Brother CAD (coronary artery disease) Cancer Lung disease Grandfather Cancer Grandmother Diabetes Family/Other Lung disease Suicide Other Hypertension Denies family history of Clotting disorder Anesthesia complication Bleeding disorder Social History Smoking and tobacco status: former smoker Quit status (tobacco): has quit using tobacco Year quit tobacco: 2005 - PPD x 35 Years Former quit date comment: Started at age 18 Second hand smoke exposure: No Smoking risk assessment/counseling performed?: No Alcohol intake: never Desire information about alcohol rehabilitation?: No Counseling given: No Adopted: No Caregiver/support person: No Lives independently: Yes Household members: family and children Housing: House Marital status: / Marital status details: 2006 Number of children: 12 Number of grandchildren: 4 Highest education level completed: Master's Degree Education level details: Criminal Justice service: No Current occupational status: disabled Current occupational exposures/hazards: No Pets and animals: Yes Pets & animals: cat(s), dog(s) and farm animals Farm Animals: cattle History of recent travel: No Leisure activites: reading and other Leisure activities details: watch TV Sexually active: No Current gender identity: Female Yudy/Buddhism: Yazidi [employer] Special yudy needs: No Agree to transfusion: Yes Financial difficulty paying for basics: Somewhat Hard Female Reproductive History: Date of last menstrual period: 10/21/20 Para: 0 Spontaneous abortions: Yes Physical Exam Const: COMMON NORMALS: no acute distress GENERAL APPEARANCE: cooperative HENMT: COMMON NORMALS: normocephalic, atraumatic and Normal external nose present HEAD & SCALP: normocephalic and atraumatic FACE & SINUS: normal facial exam and face symmetric NOSE: Normal external nose present and Normal nares present THROAT: uvula midline and posterior oropharynx abnormal erythema; no uvular edema Eye: COMMON NORMALS: Equal, round and reactive pupils present and EOMs intact bilaterally PUPIL: Yes Equal, round and reactive pupils present Neck/C-Spine: COMMON NORMALS: full ROM GENERAL: Yes trachea midline Chest: CHEST: Yes Symmetrical chest wall rise Resp: COMMON NORMALS: normal respiratory effort, No use of accessory muscles and clear to auscultation bilaterally AUSCULTATION: clear to auscultation bilaterally Cardio: COMMON NORMALS: regular rate and regular rhythm RATE: regular rate RHYTHM: regular rhythm Extremity: COMMON NORMALS: no pedal edema Neuro: JAZZ COMA SCALE: document GCS findings Jazz coma scale eye opening: Spontaneous Jazz coma scale verbal response: Orientated Jazz coma scale motor response: Obey commands Jazz coma scale total score: 15 Course Vital Signs: Vital signs: Vital Signs Temperature 98.3 F 12/06/21 19: Pulse Rate 72 12/06/21 22:12 Respiratory Rate 20 H 12/06/21 22:12 Blood Pressure 129/80 12/06/21 22:12 Pulse Oximetry 93 12/06/21 22:12 MDM - General Adult Medical Decision Making X-rays are negativeOf the chest, and soft tissue neck. Hemoglobin is 11 which is stable. Creatinine is 1.2 which is stable for her. She is feeling somewhat better after GI cocktail to numb the throat and some Solu-Medrol. This is likely sinus drainage. She will go home with antibiotic coverage and steroids. Lab Data : 12/06/21 20:05 12/06/21 20:05 Radiology Impressions Chest X-Ray 12/06/21 19:45 IMPRESSION: Emphysematous changes, negative for infiltrate Soft Tissue Neck X-Ray 12/06/21 19:45 IMPRESSION: 1. Airway appears patent. 2. Multilevel moderate to severe disc space narrowing throughout the cervical spine. 3. Bilateral carotid artery atherosclerotic calcifications. Laboratory Results WBC 7.6 10^3/uL (4.0-10.0) 12/06/21 20:05 RBC 4.04 10^6/uL (4.1-5.3) L 12/06/21 20:05 Hgb 10.8 g/dL (11.5-15.3) L 12/06/21 20:05 Hct 34.4 % (37.0-47.0) L 12/06/21 20:05 MCV 85.1 fl (81-99) 12/06/21 20:05 MCH 26.7 pg (28.0-34.0) L 12/06/21 20:05 MCHC 31.4 g/dL (30.0-36.0) 12/06/21 20:05 RDW 15.9 % (12.1-15.1) H 12/06/21 20:05 Plt Count 193 10^3/cmm (130-400) 12/06/21 20:05 MPV 8.7 fL (7.4-10.4) 12/06/21 20:05 Neut % (Auto) 60.7 % 12/06/21 20:05 Lymph % (Auto) 28.1 % 12/06/21 20:05 Smith % (Auto) 7.4 % 12/06/21 20:05 Eos % (Auto) 3.0 % 12/06/21 20:05 Baso % (Auto) 0.4 % 12/06/21 20:05 Neut # (Auto) 4.61 10^3/uL (1.8-7.7) 12/06/21 20:05 Lymph # (Auto) 2.1 10^3/uL (0.8-4.8) 12/06/21 20:05 Smith # (Auto) 0.6 10^3/uL (0.2-0.9) 12/06/21 20:05 Eos # (Auto) 0.2 10^3/uL (0.0-0.8) 12/06/21 20:05 Baso # (Auto) 0.0 10^3/uL (0.0-0.1) 12/06/21 20:05 Nucleated RBC % (auto) 0 % 12/06/21 20:05 Nucleated RBCs # 0.0 /100WBC 12/06/21 20:05 Sodium 134 mmol/L (136-145) L 12/06/21 20:05 Potassium 3.9 mmol/L (3.5-5.1) 12/06/21 20:05 Chloride 98 mmol/L (98-107) 12/06/21 20:05 Carbon Dioxide 26 mmol/L (22-29) 12/06/21 20:05 Anion Gap 13.9 (5-19) 12/06/21 20:05 BUN 15 mg/dL (8-23) 12/06/21 20:05 Creatinine 1.2 mg/dL (0.5-0.9) H 12/06/21 20:05 GFR Calculation 45.2 mL/min (90-130) L 12/06/21 20:05 Glucose 77 mg/dL (65-115) 12/06/21 20:05 Calculated Osmolality 278 mOsm/kg (285-295) L 12/06/21 20:05 Calcium 9.0 mg/dL (8.5-10.5) 12/06/21 20:05 Total Bilirubin 0.3 mg/dL (0.15-1.2) 12/06/21 20:05 AST 14 U/L (0-32) 12/06/21 20:05 ALT 7 U/L (0-33) 12/06/21 20:05 Alkaline Phosphatase 91 IU/L (35-105) 12/06/21 20:05 C-Reactive Protein 33.2 mg/L (0.0-4.9) H 12/06/21 20:05 Total Protein 6.7 g/dL (6.6-8.7) 12/06/21 20:05 Albumin 3.9 g/dL (3.5-5.2) 12/06/21 20:05 Globulin 2.8 g/dL (1.3-4.6) 12/06/21 20:05 SARS-CoV-2 Ag (Rapid) Negative (Negative) 12/06/21 20:39 Group A Strep Rapid Negative (Negative) 12/06/21 20:39 Discharge Plan Discharge Patient Disposition: Home Clinical Impression: Acute bacterial sinusitis, Pharyngitis Condition: Stable Prescriptions: New amoxicillin-pot clavulanate 875-125 mg tablet 1 tab PO BID Qty: 14 0RF Medrol (Henrry) 4 mg tablets,dose pack See Rx Instructions .ROUTE .COMPLEX Qty: 21 0RF Rx Instructions: orally per package directions No Action nystatin-triamcinolone 100,000-0.1 unit/gram-% ointment 1 applic topical TID Qty: 30 0RF albuterol sulfate 2.5 mg /3 mL (0.083 %) solution for nebulization 2.5 mg INHALATION QID PRN (Reason: Shortness Of Breath) 30 Days Qty: 75 5RF Ajovy Autoinjector 225 mg/1.5 mL auto-injector 225 mg SUBCUT Q30D Qty: 1.5 2RF epinephrine 0.3 mg/0.3 mL auto-injector 0.3 mg IM Q10M PRN (Reason: Allergic Reaction) 0RF Rx Instructions: for 2 doses nystatin 100,000 unit/mL suspension 4 - 6 ml PO BID 30 Days Qty: 480 2RF Rx Instructions: swish and spit bupropion HCl [Wellbutrin XL] 150 mg tablet extended release 24 hr 150 mg PO QAM Qty: 30 2RF buspirone 5 mg tablet 5 mg PO TID Qty: 90 2RF citalopram 40 mg tablet 40 mg PO DAILY@829 30 Days Qty: 30 2RF hydroxyzine HCl 50 mg tablet 50 mg PO QID PRN (Reason: anxiety) Qty: 120 2RF ropinirole 1 mg tablet 1 mg PO DAILY@2099 30 Days Qty: 30 5RF omeprazole 20 mg capsule,delayed release(DR/EC) 20 mg PO DAILY@829 30 Days Qty: 30 5RF nitroglycerin [Nitrostat] 0.4 mg tablet, sublingual 0.4 mg SUBLINGUAL Q5M PRN (Reason: Chest Pain) 30 Days Qty: 30 5RF metoprolol succinate 50 mg tablet extended release 24 hr 50 mg PO BID@829,2099 30 Days Qty: 60 5RF isosorbide mononitrate 60 mg tablet extended release 24 hr 60 mg PO DAILY@829 30 Days Qty: 30 5RF hydralazine 100 mg tablet 100 mg PO TID@0830,1400,2099 30 Days Qty: 90 5RF budesonide-formoterol [Symbicort] 160-4.5 mcg/actuation HFA aerosol inhaler 2 puff inhalation BID 30 Days Qty: 10.2 5RF aspirin 81 mg tablet,delayed release (DR/EC) 81 mg PO DAILY@829 30 Days Qty: 30 5RF amlodipine 5 mg tablet 5 mg PO DAILY@829 Qty: 30 5RF albuterol sulfate 90 mcg/actuation HFA aerosol inhaler 2 puff INHALATION 6XD PRN (Reason: Shortness Of Breath) Qty: 6.7 5RF montelukast 10 mg tablet 10 mg PO DAILY@829 Qty: 30 5RF levothyroxine 50 mcg capsule 50 mcg PO DAILY@829 30 Days Qty: 30 5RF atorvastatin 20 mg tablet 30 mg PO DAILY Qty: 45 5RF formoterol fumarate [Perforomist] 20 mcg/2 mL solution for nebulization 2 ml inhalation Q12H 30 Days Qty: 120 4RF revefenacin 175 mcg/3 mL solution for nebulization 175 mcg inhalation DAILY 30 Days Qty: 90 3RF budesonide [Pulmicort] 0.5 mg/2 mL suspension for nebulization 0.5 mg inhalation BID 30 Days Qty: 120 4RF azithromycin 250 mg tablet 250 mg PO .COMPLEX 90 Days Qty: 45 1RF Rx Instructions: 250 mg PO Tuesday; prednisone 5 mg tablet 5 mg PO DAILY 30 Days Qty: 30 3RF clonidine HCl 0.1 mg tablet 0.1 mg PO BID@0830,2100 Qty: 180 3RF Spiriva with HandiHaler 18 mcg capsule, w/inhalation device See Rx Instructions .ROUTE .COMPLEX Qty: 30 6RF Dose Instruction: INHALE CONTENTS OF 1 CAPSULE INTO LUNGS USING HANDIHALER ONCE DAILY; ONE DOSE = 2 INHALATIONS Rx Instructions: INHALE CONTENTS OF 1 CAPSULE INTO LUNGS USING HANDIHALER ONCE DAILY; ONE DOSE = 2 INHALATIONS bumetanide 1 mg Tablet 1 mg PO EVERY OTHER DAY 0RF fluticasone propionate [Flonase Allergy Relief] 50 mcg/actuation [place],Suspension 2 spray INTRANASAL DAILY PRN (Reason: Nasal Congestion) 0RF hydrocodone-acetaminophen 5-325 mg tablet 1 tab PO Q8H PRN (Reason: pain) Qty: 9 0RF Discharge Orders: Discharge ED (Routine); Ordered 12/06/21 Ordered By: Patrick Tomas Referrals: Nancy Carrasco FNP-C [Primary Care Provider] - 4-7 days Discharge Diet: Advance as tolerated Discharge Activity: Increase activity as tolerated Patient Instructions: Opioid Safety Activity Restrictions/Additional Instructions: Medications as directed. Return for worsening shortness of breath despite treatment, inability to swallow, worsening pain despite treatment, inability to control temperature, fever despite 3-4 doses of antibiotics, any other concerning symptoms. Coding Level of Care Code ED Cloth Shrinking Machine Operator Helper for Leann Fwmilli Exam Comprehensive
[2021-12-06 20:37] LABS: Alanine Aminotransferase 7 U/L (0-33); Albumin Level 3.9 g/dL (3.5-5.2); Alkaline Phosphatase 91 IU/L (35-105); Anion Gap 13.9 (5-19); Aspartate Amino Transferase 14 U/L (0-32); Blood Urea Nitrogen 15 mg/dL (8-23); C Reactive Protein 33.2 mg/L (0.0-4.9); Carbon Dioxide 26 mmol/L (22-29); Chloride 98 mmol/L (98-107); Globulin 2.8 g/dL (1.3-4.6); Glomerular Filtration Rate 45.2 mL/min (90-130); Glucose 77 mg/dL (65-115); Osmolality Calculated 278 mOsm/kg (285-295); Potassium 3.9 mmol/L (3.5-5.1); Sodium 134 mmol/L (136-145); Total Bilirubin 0.3 mg/dL (0.15-1.2); Total Protein 6.7 g/dL (6.6-8.7)
[2021-12-06 21:00] VITALS: BP 115/72; PULSE 72; RESP 18; O2SAT 95
[2021-12-06 21:05] LABS: Rapid Strep A Test Negative (Negative)
[2021-12-06 21:09] LABS: SARS Covid-2 Antigen Negative (Negative)
[2021-12-06 22:12] VITALS: BP 129/80; PULSE 72; RESP 20; O2SAT 93
== END 2021-12-06 22:00 | disposition home or self-care (01) ==
PROVIDERS: Emergency Provider Emergency Medicine; PCP Nurse Practitioner Family
DX: J01.90 Acute sinusitis, unspecified (principal); B96.89 Other specified bacterial agents as the cause of diseases classified elsewhere; J02.9 Acute pharyngitis, unspecified; Z87.891 Personal history of nicotine dependence; Z20.822 Contact with and (suspected) exposure to COVID-19
CPT/HCPCS: 70360; 71045; 80053; 85025; 86140; 87081; 87426; 87880; 96374; 99284; J2930

== ENCOUNTER → 2021-12-14 15:27 | Outpatient (BNVA) | payer MEDICAID, SELFPAY | PROVIDERS: PCP Nurse Practitioner Family; Visit Provider Psychiatry & Neurology Psychiatry | DX: F41.1 Generalized anxiety disorder (principal); F33.2 Major depressive disorder, recurrent severe without psychotic features; F32.9 Major depressive disorder, single episode, unspecified | CPT/HCPCS: 99213 ==

== ENCOUNTER 2021-12-23 09:24 | Outpatient (CLI) | payer MEDICAID, SELFPAY ==
--- NOTE | 2021-12-23 13:15 | PFTS_ITS ---
Date of Study:12/23/21 Date of Dictation: 12/24/2021 MECHANICS: Postbronchodilator forced vital capacity (FVC) is reduced Postbronchodilator forced expiratory volume in one second (FEV1) is severely reduced 33% FEV1/FVC is reduced. There is significant response to bronchodilators. FLOW VOLUME LOOP: Severe sloping of expiratory limb suggestive of severe airflow obstruction. LUNG VOLUMES: Total lung capacity (TLC) is normal. Residual volume ( RV) is normal DIFFUSING CAPACITY FOR CARBON MONOXIDE: Severely reduced 36% . INTERPRETATION: The spirometry is suggestive of severe airflow obstruction. There is significant response to bronchodilators. Lung volumes are normal DLCO is severely reduced. Correlate clinically. MTDD
== END 2021-12-23 09:25 | disposition home or self-care (01) ==
LOC: RT 09:26
PROVIDERS: PCP Nurse Practitioner Family; Visit Provider Internal Medicine Critical Care Medicine
DX: J44.9 Chronic obstructive pulmonary disease, unspecified (principal)
CPT/HCPCS: 94060; 94726; 94729; J7611

== ENCOUNTER → 2021-12-31 15:14 | Outpatient (BNVA) | payer MEDICAID, SELFPAY | PROVIDERS: PCP Nurse Practitioner Family; Visit Provider Internal Medicine Nephrology | DX: N18.31 Chronic kidney disease, stage 3a (principal) | CPT/HCPCS: 80069; 82306; 82310; 82570; 83970; 84156; 85025 ==

== ENCOUNTER → 2022-01-06 09:27 | Outpatient (BNVA) | payer MEDICAID, SELFPAY | PROVIDERS: PCP Nurse Practitioner Family; Visit Provider Internal Medicine Critical Care Medicine | DX: J44.9 Chronic obstructive pulmonary disease, unspecified (principal); J18.9 Pneumonia, unspecified organism; R21 Rash and other nonspecific skin eruption; G25.81 Restless legs syndrome; I10 Essential (primary) hypertension; K21.9 Gastro-esophageal reflux disease without esophagitis | CPT/HCPCS: 99214 ==

== ENCOUNTER 2022-01-29 13:22 | Outpatient (CLI) | payer MEDICAID, SELFPAY ==
--- NOTE | 2022-01-29 13:35 | MM_ITS ---
WS: [id number] BILATERAL 3D TOMOSYNTHESIS DIGITAL SCREENING MAMMOGRAPHY WITH CAD CLINICAL INFORMATION: SCREENING HISTORY: Screening mammogram. No current complaints. COMPARISON: January 28, 2021 TECHNIQUE: Bilateral CC and MLO views. FINDINGS: Scattered fibroglandular densities bilaterally. Single tiny punctate calcification LEFT breast. No christine spicious focal mass, asymmetry, calcifications, or architectural distortion. No evidence of malignanc y. MM/[place] [id number] IMPRESSION: BI-RADS: 2-Benign FOLLOW UP: 1 Year Follow-up Recommend return to annual screening mammography.
== END 2022-01-29 13:23 | disposition home or self-care (01) ==
PROVIDERS: PCP Nurse Practitioner Family; Visit Provider Nurse Practitioner Family
DX: Z12.31 Encounter for screening mammogram for malignant neoplasm of breast (principal)
CPT/HCPCS: 77063; 77067

== ENCOUNTER 2022-02-16 12:32 | Oncology outpatient (recurring) (ONCR) | payer MEDICAID, SELFPAY ==
[2022-02-16 12:53] LABS: Basophils % 0.5 %; Eosinophils # 0.2 10^3/uL (0.0-0.8); Eosinophils % 2.2 %; Hematocrit 34.9 % (37.0-47.0); Hemoglobin 11.1 g/dL (11.5-15.3); Lymphocytes # 3.5 10^3/uL (0.8-4.8); Lymphocytes % 45.7 %; Mean Corpuscular HGB Conc 31.8 g/dL (30.0-36.0); Mean Corpuscular Hemoglobin 26.9 pg (28.0-34.0); Mean Corpuscular Volume 84.5 fl (81-99); Mean Platelet Volume 9.5 fL (7.4-10.4); Monocytes # 0.6 10^3/uL (0.2-0.9); Monocytes % 7.3 %; Neutrophils # 3.35 10^3/uL (1.8-7.7); Neutrophils % 43.9 %; Nucleated Red Blood Cells % 0 %; Platelet Count 199 10^3/cmm (130-400); Red Blood Count 4.13 10^6/uL (4.1-5.3); Red Cell Distribution Width 15.3 % (12.1-15.1); White Blood Count 7.6 10^3/uL (4.0-10.0)
[2022-02-16 13:38] LABS: Ferritin 201 ng/mL (15-150); Iron 91 ug/dL (37-145); Percent Saturation 58.7 % (20-50); Total Iron Binding Capacity 155 mcg/dl; Unsaturated Iron Binding 64 ug/dL (112-347)
[2022-02-16 13:54] LABS: Vitamin B12 546 pg/mL (232-1245)
== END 2022-03-10 23:59 | disposition home or self-care (01) ==
PROVIDERS: Internal Medicine Hematology & Oncology; PCP Nurse Practitioner Family; Visit Provider Nurse Practitioner Family
DX: N18.9 Chronic kidney disease, unspecified (principal); D63.1 Anemia in chronic kidney disease; J44.9 Chronic obstructive pulmonary disease, unspecified
CPT/HCPCS: 36415; 82607; 82728; 83540; 83550; 85025; 99214

== ENCOUNTER → 2022-03-08 10:05 | Outpatient (BNVA) | payer MEDICAID, SELFPAY | PROVIDERS: PCP Nurse Practitioner Family; Visit Provider Internal Medicine Critical Care Medicine | DX: J44.9 Chronic obstructive pulmonary disease, unspecified (principal); R07.9 Chest pain, unspecified; R21 Rash and other nonspecific skin eruption; Z87.891 Personal history of nicotine dependence | CPT/HCPCS: 71101; 99214 ==

== ENCOUNTER 2022-03-16 21:59 | Emergency (ER) | payer MEDICAID, SELFPAY ==
[2022-03-16 22:03] VITALS: BP 146/98; PULSE 78; RESP 22; O2SAT 99
[2022-03-16 22:05] VITALS: BP 161/133; PULSE 79; RESP 24; O2SAT 99
--- NOTE | 2022-03-16 22:05 | ECG_ITS ---
[facility] Test Date: 2022-03-16 Pat Name: Hali James Department: Room: Gender: Female Consumer Relations Specialist: : 1955 Requested By: Flo Mcknight Order Number: [id number] Wil MD: Victor Hugo Gonzalez M.D. Measurements Intervals [place] Rate: 75 P: 78 UT: 134 QRS: 76 QRSD: 74 T: 78 QT: 388 QTc: 435 Interpretive Statements SINUS RHYTHM MINIMAL ST DEPRESSION [0.025+ mV ST DEPRESSION] Compared to ECG 06/13/2021 21:13:37 ST (T wave) deviation now present T-wave abnormality no longer present Electronically Signed On 03-17-2022 19:55:26 CDT by Victor Hugo Gonzalez M.D. [email or web address]
--- NOTE | 2022-03-16 22:07 | XRR_ITS ---
PROCEDURE INFORMATION: Exam: XR Chest Exam date and time: 03/16/2022 10:25 PM Age: 66 years old Clinical indication: Angina; Additional info: Cp TECHNIQUE: Imaging protocol: Radiologic exam of the chest. Views: 1 view. COMPARISON: CR XR ribs RT mn 3V w CXR1V [id number] 03/08/2022 10:45 AM FINDINGS: Lungs: Stable severe COPD . Pleural spaces: Unremarkable. No pleural effusion. No pneumothorax. Heart/Mediastinum: Unremarkable. No cardiomegaly. Vasculature: Calcification of the thoracic aorta and/or great vessels consistent with atherosclerotic vessel disease. Bones/joints: One or more healed left rib fractures. Other findings: Patient rotation to the left. XR/XR chest 1V portable [id number] IMPRESSION: Stable severe COPD .
--- NOTE | 2022-03-16 22:12 | ED_ITS ---
HPI - General Adult General: Chief complaint: General Medical Stated complaint: LEFT RIB PAIN Time Seen by Provider: 03/16/22 22:00 Source: patient Limitations: no limitations History of Present Illness: 66-year-old female states she been having a sharp left-sided chest pain over the last 3 to 4 days along with some shortness of breath she has a history of COPD she is on oxygen at baseline she states that is worse with palpation she denies any vomiting or diarrhea. Patient is in no distress here. States her pain is currently a 5 out of 10. Associated symptoms: Reports chest pain and dyspnea; Deny headache(s), nausea, rash or vomiting Review of Systems Const: Denies: fever(s), chills, body aches or change in appetite Eyes: Denies: blurry vision or eye discomfort ENMT: Denies: throat pain or dental pain Card: Reports: chest pain Resp: Reports: dyspnea GI: Denies: abdominal pain, nausea, vomiting or diarrhea : Denies: dysuria Musc: Denies: neck pain or back pain Skin/Breast: Denies: rash Neuro: Denies: headache(s) Psych: Denies: depression Bill/Lymph: Denies: easy bruising All/Imm: Denies: urticaria PFSH ED PFSH: Medical History AAA (abdominal aortic aneurysm) 4.1 x 4.4 x 5.7 cm 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 Anemia Atypical chest pain Brain aneurysm Chronic kidney disease CKD stage III, solitary kidney Chronic migraine without aura, intractable, with status migrainosus Congestive heart failure COPD (chronic obstructive pulmonary disease) Depression Endoleak post (EVAR) endovascular aneurysm repair GERD (gastroesophageal reflux disease) History of stent insertion of renal artery Hypercholesteremia Hypertension Hypertensive urgency Resolved Hypothyroidism Inguinal swelling Normal colonoscopy Osteoporosis Peripheral vascular disease Psychiatric care Restless leg Solitary kidney Surgical History H/O: hysterectomy History of renal stent Herculink stent History of repair of aneurysm of abdominal aorta using endovascular stent graft Hx of tonsillectomy S/P appendectomy Family History Mother CAD (coronary artery disease) Chronic kidney disease (CKD) Dementia Stroke Father CAD (coronary artery disease) Cancer Diabetes Brother CAD (coronary artery disease) Cancer Lung disease Grandfather Cancer Grandmother Diabetes Family/Other Lung disease Suicide Other Hypertension Denies family history of Clotting disorder Anesthesia complication Bleeding disorder Social History Smoking and tobacco status: former smoker Quit status (tobacco): has quit using tobacco Year quit tobacco: 2005 - PPD x 35 Years Former quit date comment: Started at age 18 Second hand smoke exposure: No Smoking risk assessment/counseling performed?: No Alcohol intake: never Desire information about alcohol rehabilitation?: No Counseling given: No Adopted: No Caregiver/support person: No Lives independently: Yes Household members: family and children Housing: House Marital status: / Marital status details: 2006 Number of children: 12 Number of grandchildren: 4 Highest education level completed: Master's Degree Education level details: Criminal Justice service: No Current occupational status: disabled Current occupational exposures/hazards: No Pets and animals: Yes Pets & animals: cat(s), dog(s) and farm animals Farm Animals: cattle History of recent travel: No Leisure activites: reading and other Leisure activities details: watch TV Sexually active: No Current gender identity: Female Yudy/Yarsani: Jainism [employer] Special yudy needs: No Agree to transfusion: Yes Financial difficulty paying for basics: Somewhat Hard Female Reproductive History: Date of last menstrual period: 10/21/20 Para: 0 Spontaneous abortions: Yes Physical Exam Const: COMMON NORMALS: no acute distress, patient oriented x3 and healthy appearing HENMT: COMMON NORMALS: normocephalic and atraumatic HEAD & SCALP: normocephalic and atraumatic Eye: COMMON NORMALS: Equal, round and reactive pupils present and EOMs intact bilaterally PUPIL: Yes Equal, round and reactive pupils present Neck/C-Spine: COMMON NORMALS: full ROM and supple Chest: COMMONS NORMALS: normal inspection of the chest OTHER: point tender to left chest reproduces pain Resp: COMMON NORMALS: normal respiratory effort, No retractions, No use of accessory muscles and clear to auscultation bilaterally AUSCULTATION: clear to auscultation bilaterally Cardio: COMMON NORMALS: regular rate, regular rhythm and No murmurs present (Cardio) RATE: regular rate RHYTHM: regular rhythm GI: COMMON NORMALS: Normal to inspection, nondistended, normoactive bowel sounds present, Soft to palpation, non-tender and no masses PALPATION: Yes Soft to palpation Extremity: COMMON NORMALS: normal to inspection and full ROM Neuro: COMMON NORMALS: patient oriented x3, moves all extremities and no focal motor deficits Psych: COMMON NORMALS: mental status grossly normal, Normal thought process present and cooperative THOUGHT PROCESS: Normal thought process present Skin: COMMON NORMALS: no rashes or lesions noted and no wounds GENERAL SKIN EXAM: no rashes or lesions noted Course Vital Signs: Vital signs: Vital Signs Pulse Rate 76 03/17/22 02:05 Respiratory Rate 17 03/17/22 02:45 Blood Pressure 162/110 03/17/22 02:45 Pulse Oximetry 98 03/17/22 02:45 Oxygen Delivery Me thod 03/16/22 22:05 Oxygen Flow Rate 3 03/16/22 22:03 MDM - General Adult Medical Decision Making Patient presents here with chest pain musculoskeletal in nature likely she is point tender to her left chest wall her CT shows no signs of pulmonary embolism repeat troponin here is unchanged she has no signs or acute coronary syndrome she is stable for discharge she is to follow-up PCP and return if worsening she understands agrees to plan. Lab Data : 03/16/22 22:24 03/16/22 22:24 Radiology Impressions Chest X-Ray 03/16/22 22:07 IMPRESSION: Stable severe COPD . Chest CTA 03/16/22 22:54 IMPRESSION: 1. Moderate to severe centrilobular emphysema. 2. Incompletely visualized infrarenal abdominal aortic aneurysm with aorto iliac endovascular stent. 3. Suprarenal abdominal aortic endovascular stent with right renal artery endovascular stent. 4. Moderate left renal atrophy. 5. Severe calcified coronary artery disease. 6. No pulmonary embolus or aortic dissection. Laboratory Results WBC 11.3 10^3/uL (4.0-10.0) H 03/16/22 22:24 RBC 4.50 10^6/uL (4.1-5.3) 03/16/22 22:24 Hgb 12.3 g/dL (11.5-15.3) 03/16/22 22:24 Hct 39.0 % (37.0-47.0) 03/16/22 22:24 MCV 86.7 fl (81-99) 03/16/22 22:24 MCH 27.3 pg (28.0-34.0) L 03/16/22: MCHC 31.5 g/dL (30.0-36.0) 03/16/22 22: RDW 14.8 % (12.1-15.1) 03/16/22 22:24 Plt Count 221 10^3/cmm (130-400) 03/16/22 22: MPV 8.8 fL (7.4-10.4) 03/16/22 22:24 Neut % (Auto) 64.6 % 03/16/22 22: Lymph % (Auto) 28.7 % 03/16/22 22: [place] % (Auto) 5.8 % 03/16/22: Eos % (Auto) 0.0 % 03/16/22: Baso % (Auto) 0.5 % 03/16/22: Neut # (Auto) 7.30 10^3/uL (1.8-7.7) 03/16/22 22: Lymph # (Auto) 3.2 10^3/uL (0.8-4.8) 03/16/22: [place] # (Auto) 0.7 10^3/uL (0.2-0.9) 03/16/22:24 Eos # (Auto) 0.0 10^3/uL (0.0-0.8) 03/16/22: Baso # (Auto) 0.1 10^3/uL (0.0-0.1) 03/16/22: Nucleated RBC % (auto) 0 % 03/16/22: Nucleated RBCs # 0.0 /100WBC 03/16/22: D-Dimer 6.24 ug/mIFEU (0-0.59) H 03/16/22 22:24 Sodium 131 mmol/L (136-145) L 03/16/22 22:24 Potassium 5.0 mmol/L (3.5-5.1) 03/16/22 22:24 Chloride 97 mmol/L (98-107) L 03/16/22 22:24 Carbon Dioxide 23 mmol/L (22-29) 03/16/22 22:24 Anion Gap 16.0 (5-19) 03/16/22 22:24 BUN 23 mg/dL (8-23) 03/16/22 22:24 Creatinine 1.5 mg/dL (0.5-0.9) H 03/16/22 22:24 GFR Calculation 35.0 mL/min (90-130) L 03/16/22 22:24 Glucose 83 mg/dL (65-115) 03/16/22 22:24 Calculated Osmolality 275 mOsm/kg (285-295) L 03/16/22 22:24 Calcium 9.0 mg/dL (8.5-10.5) 03/16/22 22:24 Total Bilirubin 0.2 mg/dL (0.15-1.2) 03/16/22 22:24 AST 16 U/L (0-32) 03/16/22 22:24 ALT 10 U/L (0-33) 03/16/22 22:24 Alkaline Phosphatase 96 U/L (35-105) 03/16/22 22:24 Troponin T Baseline 20 ng/L (0-10) H 03/16/22 22:24 Troponin T 120 Minute 22.69 ng/L (0-10) H 03/17/22 00:45 Delta Troponin T 2.69 ABS# (0-10) 03/17/22 00:45 Total Protein 6.6 g/dL (6.6-8.7) 03/16/22 22:24 Albumin 4.1 g/dL (3.5-5.2) 03/16/22 22:24 Globulin 2.5 g/dL (1.3-4.6) 03/16/22 22:24 EKG Data EKG 1: I personally reviewed and interpreted this EKG as follows: EKG interpretation date: 03/16/22 EKG interpretation time: 22:05 Interpretation: nsr hr [address] or t wave abnormalities qrs 74 qtc 417 Computer generated interpretation: Chest X-Ray 03/16/22 22:07 IMPRESSION: Stable severe COPD . Chest CTA 03/16/22 22:54 IMPRESSION: 1. Moderate to severe centrilobular emphysema. 2. Incompletely visualized infrarenal abdominal aortic aneurysm with aorto iliac endovascular stent. 3. Suprarenal abdominal aortic endovascular stent with right renal artery endovascular stent. 4. Moderate left renal atrophy. 5. Severe calcified coronary artery disease. 6. No pulmonary embolus or aortic dissection. EKG 2: I personally reviewed and interpreted this EKG as follows: EKG interpretation date: 03/17/22 EKG interpretation time: 00:38 Interpretation: nsr hr [address] or t wave abnormalities qrs 82 qtc 422 Computer generated interpretation: Chest X-Ray 03/16/22 22:07 IMPRESSION: Stable severe COPD . Chest CTA 03/16/22 22:54 IMPRESSION: 1. Moderate to severe centrilobular emphysema. 2. Incompletely visualized infrarenal abdominal aortic aneurysm with aorto iliac endovascular stent. 3. Suprarenal abdominal aortic endovascular stent with right renal artery endovascular stent. 4. Moderate left renal atrophy. 5. Severe calcified coronary artery disease. 6. No pulmonary embolus or aortic dissection. Discharge Plan Discharge Patient Disposition: Home Clinical Impression: Chest wall pain Condition: Stable Prescriptions: New Naprosyn 500 mg tablet 500 mg PO BID PRN (Reason: pain) Qty: 20 0RF No Action nystatin-triamcinolone 100,000-0.1 unit/gram-% ointment 1 applic topical TID Qty: 30 0RF bupropion HCl [Wellbutrin XL] 150 mg tablet extended release 24 hr 150 mg PO QAM Qty: 30 2RF buspirone 5 mg tablet 5 mg PO TID Qty: 90 2RF citalopram 40 mg tablet 40 mg PO DAILY@0830 30 Days Qty: 30 2RF hydroxyzine HCl 50 mg tablet 50 mg PO QID PRN (Reason: anxiety) Qty: 120 2RF albuterol sulfate 2.5 mg /3 mL (0.083 %) solution for nebulization 2.5 mg INHALATION QID PRN (Reason: Shortness Of Breath) 30 Days Qty: 75 5RF epinephrine 0.3 mg/0.3 mL auto-injector 0.3 mg IM Q10M PRN (Reason: Allergic Reaction) Rx Instructions: for 2 doses nystatin 100,000 unit/mL suspension 4 - 6 ml PO BID 30 Days Qty: 480 2RF Rx Instructions: swish and spit omeprazole 20 mg capsule,delayed release(DR/EC) 20 mg PO DAILY@0830 30 Days Qty: 30 5RF nitroglycerin [Nitrostat] 0.4 mg tablet, sublingual 0.4 mg SUBLINGUAL Q5M PRN (Reason: Chest Pain) 30 Days Qty: 30 5RF metoprolol succinate 50 mg tablet extended release 24 hr 50 mg PO BID@829,2099 30 Days Qty: 60 5RF isosorbide mononitrate 60 mg tablet extended release 24 hr 60 mg PO DAILY@829 30 Days Qty: 30 5RF aspirin 81 mg tablet,delayed release (DR/EC) 81 mg PO DAILY@829 30 Days Qty: 30 5RF amlodipine 5 mg tablet 5 mg PO DAILY@829 Qty: 30 5RF albuterol sulfate 90 mcg/actuation HFA aerosol inhaler 2 puff INHALATION 6XD PRN (Reason: Shortness Of Breath) Qty: 6.7 5RF montelukast 10 mg tablet 10 mg PO DAILY@829 Qty: 30 5RF levothyroxine 50 mcg capsule 50 mcg PO DAILY@829 30 Days Qty: 30 5RF atorvastatin 20 mg tablet 30 mg PO DAILY Qty: 45 5RF revefenacin 175 mcg/3 mL solution for nebulization 175 mcg inhalation DAILY 30 Days Qty: 90 3RF azithromycin 250 mg tablet 250 mg PO .COMPLEX 90 Days Qty: 45 1RF Rx Instructions: 250 mg PO Tuesday; prednisone 5 mg tablet 5 mg PO DAILY 30 Days Qty: 30 3RF budesonide [Pulmicort] 0.5 mg/2 mL suspension for nebulization 0.5 mg inhalation BID 30 Days Qty: 120 4RF formoterol fumarate [Perforomist] 20 mcg/2 mL solution for nebulization 2 ml inhalation Q12H 30 Days Qty: 120 4RF ropinirole 1 mg tablet 1 mg PO DAILY@2099 30 Days Qty: 30 5RF cyclobenzaprine 5 mg tablet 5 mg PO TID PRN (Reason: muscle spasm) 7 Days Qty: 21 0RF clonidine HCl 0.1 mg tablet 0.1 mg PO BID@829,2099 Qty: 180 3RF bumetanide 1 mg Tablet 1 mg PO EVERY OTHER DAY fluticasone propionate [Flonase Allergy Relief] 50 mcg/actuation [place] ,Suspension 2 spray INTRANASAL DAILY PRN (Reason: Nasal Congestion) Discharge Orders: Discharge ED (Routine); Ordered 03/17/22 Ordered By: Flo Mcknight Referrals: Nancy Carrasco FNP-C [Primary Care Provider] - Discharge Diet: Advance as tolerated Discharge Activity: Resume usual activity Patient Instructions: Chest Wall Pain (ED) Coding Level of Care Code ED Compensation And Hris Analyst for Chg Fwd Exam Comprehensive
[2022-03-16 22:29] LABS: Basophils # 0.1 10^3/uL (0.0-0.1); Basophils % 0.5 %; Hemoglobin 12.3 g/dL (11.5-15.3); Lymphocytes # 3.2 10^3/uL (0.8-4.8); Lymphocytes % 28.7 %; Mean Corpuscular HGB Conc 31.5 g/dL (30.0-36.0); Mean Corpuscular Hemoglobin 27.3 pg (28.0-34.0); Mean Corpuscular Volume 86.7 fl (81-99); Mean Platelet Volume 8.8 fL (7.4-10.4); Monocytes # 0.7 10^3/uL (0.2-0.9); Monocytes % 5.8 %; Neutrophils % 64.6 %; Nucleated Red Blood Cells % 0 %; Platelet Count 221 10^3/cmm (130-400); Red Cell Distribution Width 14.8 % (12.1-15.1); White Blood Count 11.3 10^3/uL (4.0-10.0)
[2022-03-16 22:50] LABS: Alanine Aminotransferase 10 U/L (0-33); Albumin Level 4.1 g/dL (3.5-5.2); Alkaline Phosphatase 96 U/L (35-105); Aspartate Amino Transferase 16 U/L (0-32); Blood Urea Nitrogen 23 mg/dL (8-23); Carbon Dioxide 23 mmol/L (22-29); Chloride 97 mmol/L (98-107); Globulin 2.5 g/dL (1.3-4.6); Glucose 83 mg/dL (65-115); Osmolality Calculated 275 mOsm/kg (285-295); Sodium 131 mmol/L (136-145); Total Bilirubin 0.2 mg/dL (0.15-1.2); Total Protein 6.6 g/dL (6.6-8.7)
[2022-03-16 22:52] LABS: D Dimer 6.24 ug/mIFEU (0-0.59)
[2022-03-16 22:54] VITALS: RESP 26
[2022-03-16] MEDS: HYDROmorphone 1 mg/mL INJ 1 mL 0.5 MG IVP (22:54)
[2022-03-16] MEDS: ondansetron 2 mg/ML SDV 2 mL 4 MG IVP (22:54)
--- NOTE | 2022-03-16 22:54 | CTR_ITS ---
PROCEDURE INFORMATION: Exam: CTA Chest With Contrast Exam date and time: 03/16/2022 11:04 PM Age: 66 years old Clinical indication: Intercostal; Prior surgery; Surgery type: Nephrectomy. Aaa endograft. Patient HX: C/O left side chest/rib pain. Recent history of pneumonia. ; Additional info: SOB TECHNIQUE: Imaging protocol: Computed tomographic angiography of the chest with contrast. 3D rendering (Not supervised by radiologist): MIP and/or 3D reconstructed images were created by the technologist. Radiation optimization: All CT scans at this facility use at least one of these dose optimization techniques: automated exposure control; mA and/or kV adjustment per patient size (includes targeted exams where dose is matched to clinical indication); or iterative reconstruction. Contrast material: OMNI 350; Contrast volume: 65 ml; Contrast route: INTRAVENOUS (IV); COMPARISON: CT angio chest PE protcl [id number] 06/13/2021 10:10 PM RADIATION DOSE METRICS: Total DLP (mGy-cm): 156.91 FINDINGS: Pulmonary arteries: No pulmonary embolus or aortic dissection. Aorta: Incompletely visualized infrarenal abdominal aortic aneurysm with aorto iliac endovascular stent. Suprarenal abdominal aortic endovascular stent with right renal artery endovascular stent. Lungs: Moderate to severe centrilobular emphysema. Pleural spaces: Unremarkable. No pneumothorax. No pleural effusion. Heart: Severe calcified coronary artery disease. Lymph nodes: Unremarkable. No enlarged lymph nodes. Kidneys and ureters: Moderate left renal atrophy. Bones/joints: Unremarkable. No acute fracture. Soft tissues: Unremarkable. CT/CT angio chest PE protcl [id number] IMPRESSION: 1. Moderate to severe centrilobular emphysema. 2. Incompletely visualized infrarenal abdominal aortic aneurysm with aorto iliac endovascular stent. 3. Suprarenal abdominal aortic endovascular stent with right renal artery endovascular stent. 4. Moderate left renal atrophy. 5. Severe calcified coronary artery disease. 6. No pulmonary embolus or aortic dissection.
[2022-03-16 22:55] LABS: Troponin(5th) Baseline 20 ng/L (0-10)
[2022-03-16] MEDS: iohexol 350 mg/mL 100 mL Btl IV (23:14)
[2022-03-17 00:37] VITALS: RESP 22; O2SAT 97
[2022-03-17] MEDS: HYDROmorphone 1 mg/mL INJ 1 mL 0.5 MG IVP (00:37)
[2022-03-17] MEDS: ondansetron 2 mg/ML SDV 2 mL 4 MG IVP (00:38)
--- NOTE | 2022-03-17 00:38 | ECG_ITS ---
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 Measurements Intervals [place] Rate: 79 P: 75 DC: 142 QRS: 75 QRSD: 82 T: 74 QT: 388 QTc: 445 Interpretive Statements SINUS RHYTHM Compared to ECG 03/16/2022 22:05:01 ST (T wave) deviation no longer present Electronically Signed On 03-17-2022 19:54:58 CDT by Victor Hugo Gonzalez M.D. [id number]
[2022-03-17] MEDS: hyDRALAzine 20 mg/mL INJ 1 mL 10 MG IVP (02:04)
[2022-03-17 02:05] VITALS: BP 154/107; PULSE 76; RESP 18; O2SAT 99
[2022-03-17 02:10] LABS: Troponin 5 2HR 22.69 ng/L (0-10)
[2022-03-17 02:11] LABS: Troponin 5 2HR Delta 2.69 ABS# (0-10)
[2022-03-17 02:30] VITALS: BP 162/110; RESP 17; O2SAT 98
[2022-03-17] MEDS: HYDROcodone-acetaminophen 5-325 mg Tablet 1 TAB PO (02:31)
[2022-03-17 02:45] VITALS: BP 162/110; RESP 17; O2SAT 98
== END 2022-03-17 06:28 | disposition home or self-care (01) ==
PROVIDERS: Emergency Provider Emergency Medicine; PCP Nurse Practitioner Family
DX: R07.89 Other chest pain (principal); Z79.82 Long term (current) use of aspirin; Z87.891 Personal history of nicotine dependence; I13.0 Hypertensive heart and chronic kidney disease with heart failure and stage 1 through stage 4 chronic kidney disease, or unspecified chronic kidney disease; N18.30 Chronic kidney disease, stage 3 unspecified; I50.9 Heart failure, unspecified
CPT/HCPCS: 71045; 71275; 80053; 84484; 85025; 85378; 93005; 96374; 96375; 96376; 99285; J0360; J1170; J2405; Q9967

== ENCOUNTER 2022-03-28 15:33 | Emergency (ER) | payer MEDICAID, SELFPAY ==
[2022-03-28 15:33] VITALS: BP 179/104; PULSE 72; RESP 24; TEMP 36.8; O2SAT 994; BMI 18.1
--- NOTE | 2022-03-28 15:47 | XRR_ITS ---
PROCEDURE INFORMATION: Exam: XR Left Ribs with PA Chest Exam date and time: 03/28/2022 3:57 PM Age: 66 years old Clinical indication: Injury or trauma; Fall; Rib area, left side; Blunt trauma TECHNIQUE: Imaging protocol: Radiologic exam of the Left ribs with PA chest. Views: 3 views COMPARISON: CR (CHEST, ) 03/16/2022 10:25 PM FINDINGS: Lungs: No acute abnormality identified. No consolidation. Pleural spaces: No pleural effusion. No pneumothorax. Heart/Mediastinum: No cardiomegaly. Vasculature: Distal thoracic aortic stent graft. Bones/joints: Chronic posterolateral left 6th through 8th rib fractures redemonstrated. Chronic anterolateral left 6th rib fracture. No acute displaced rib fracture identified. XR/XR ribs LT mn 3V w CXR1V [id number] IMPRESSION: No acute displaced rib fracture identified.
[2022-03-28] MEDS: ketorolac 30 mg/mL INJ 15 MG IVP (16:05)
--- NOTE | 2022-03-28 16:05 | W.ED.CHESTPA ---
HPI - Chest Pain General: Chief Complaint: Chest Pain Stated Complaint: CHEST PAIN , SOB Time Seen by Provider: 03/28/22 15:41 History of Present Illness: 66-year-old female presents with left-sided chest/rib pain. Patient reports couple weeks ago she fell and broke her ribs. She reports that she feels like something happened and it hurts worse today. Patient feels like her ribs are about to explode patient denies any new falls or injury. Associated symptoms: Deny abdominal pain, fever(s), nausea, palpitations or vomiting Review of Systems Const: Denies: fever(s) or chills Eyes: Denies: change in vision ENMT: Denies: throat pain or ear or mastoid pain Card: Reports: chest pain (Please see HPI); Denies: palpitations, irregular heart rhythm or edema Resp: Reports: non-productive cough and pain on inspiration; Denies: wheezing GI: Denies: abdominal pain, nausea or vomiting : Denies: flank pain or dysuria Musc: Reports: other (Please see HPI) Skin/Breast: Denies: rash or pruritus Neuro: Denies: headache(s) or numbness in extremities PFSH ED PFSH: Medical History AAA (abdominal aortic aneurysm) 4.1 x 4.4 x 5.7 cm 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 Anemia Atypical chest pain Brain aneurysm Chronic kidney disease CKD stage III, solitary kidney Chronic migraine without aura, intractable, with status migrainosus Congestive heart failure COPD (chronic obstructive pulmonary disease) Depression Endoleak post (EVAR) endovascular aneurysm repair GERD (gastroesophageal reflux disease) History of stent insertion of renal artery Hypercholesteremia Hypertension Hypertensive urgency Resolved Hypothyroidism Inguinal swelling Normal colonoscopy Osteoporosis Peripheral vascular disease Psychiatric care Restless leg Solitary kidney Surgical History H/O: hysterectomy History of renal stent Herculink stent History of repair of aneurysm of abdominal aorta using endovascular stent graft Hx of tonsillectomy S/P appendectomy Family History Mother CAD (coronary artery disease) Chronic kidney disease (CKD) Dementia Stroke Father CAD (coronary artery disease) Cancer Diabetes Brother CAD (coronary artery disease) Cancer Lung disease Grandfather Cancer Grandmother Diabetes Family/Other Lung disease Suicide Other Hypertension Denies family history of Clotting disorder Anesthesia complication Bleeding disorder Social History Smoking and tobacco status: former smoker Quit status (tobacco): has quit using tobacco Year quit tobacco: 2005 - PPD x 35 Years Former quit date comment: Started at age 18 Second hand smoke exposure: No Smoking risk assessment/counseling performed?: No Alcohol intake: never Desire information about alcohol rehabilitation?: No Counseling given: No Adopted: No Caregiver/support person: No Lives independently: Yes Household members: family and children Housing: House Marital status: / Marital status details: 2005 Number of children: 12 Number of grandchildren: 4 Highest education level completed: Master's Degree Education level details: Criminal Justice service: No Current occupational status: disabled Current occupational exposures/hazards: No Pets and animals: Yes Pets & animals: cat(s), dog(s) and farm animals Farm Animals: cattle History of recent travel: No Leisure activites: reading and other Leisure activities details: watch TV Sexually active: No Current gender identity: Female Yudy/Latter Day: Pentecostalism [employer] Special yudy needs: No Agree to transfusion: Yes Financial difficulty paying for basics: Somewhat Hard Female Reproductive History: Date of last menstrual period: 10/21/20 Para: 0 Spontaneous abortions: Yes Physical Exam Const: COMMON NORMALS: patient oriented x3 and alert Chest: CHEST: No crepitus, Yes localized rib tenderness with anteroposterior compression and No Sternal flail present Resp: COMMON NORMALS: normal respiratory effort, No use of accessory muscles and clear to auscultation bilaterally AUSCULTATION: clear to auscultation bilaterally Cardio: COMMON NORMALS: regular rate and regular rhythm RATE: regular rate RHYTHM: regular rhythm GI: COMMON NORMALS: Soft to palpation and non-tender PALPATION: Yes Soft to palpation Extremity: COMMON NORMALS: full ROM and capillary refill normal Neuro: COMMON NORMALS: patient oriented x3, moves all extremities, no focal motor deficits and no sensory deficits noted SENSORIUM/ORIENTATION: Yes alert Psych: COMMON NORMALS: Normal thought process present and cooperative THOUGHT PROCESS: Normal thought process present Skin: COMMON NORMALS: no rashes or lesions noted GENERAL SKIN EXAM: no rashes or lesions noted Course Vital Signs: Vital signs: Vital Signs Temperature 98.2 F 03/28/22 15:33 Pulse Rate 85 03/28/22 17:00 Respiratory Rate 16 03/28/22 17:00 Blood Pressure 145/81 03/28/22 17:00 Pulse Oximetry 93 03/28/22 17:00 Oxygen Delivery Me thod 03/28/22 15:33 Oxygen Flow Rate 4 03/28/22 15:33 MDM - Chest Pain Medical Decision Making Patient with no acute rib fractures noted. Patient's rib fractures are old that she is complaining of. Patient is requesting pain medication. I recommended she try Tylenol ibuprofen and topical medication. Patient is to follow-up with her primary care provider if she feels she has chronic pain that needs to be addressed. Patient stable and discharged home. When I went into discussed results with patient, she was sleeping comfortably in the room and had to be awakened. Lab Data Radiology Impressions Ribs X-Ray 03/28/22 15:47 IMPRESSION: No acute displaced rib fracture identified. Discharge Plan Discharge Patient Disposition: Home Clinical Impression: Rib pain on right side Condition: Stable Prescriptions: No Action nystatin-triamcinolone 100,000-0.1 unit/gram-% ointment 1 applic topical TID Qty: 30 0RF bupropion HCl [Wellbutrin XL] 150 mg tablet extended release 24 hr 150 mg PO QAM Qty: 30 2RF buspirone 5 mg tablet 5 mg PO TID Qty: 90 2RF citalopram 40 mg tablet 40 mg PO DAILY@0830 30 Days Qty: 30 2RF hydroxyzine HCl 50 mg tablet 50 mg PO QID PRN (Reason: anxiety) Qty: 120 2RF albuterol sulfate 2.5 mg /3 mL (0.083 %) solution for nebulization 2.5 mg INHALATION QID PRN (Reason: Shortness Of Breath) 30 Days Qty: 75 5RF epinephrine 0.3 mg/0.3 mL auto-injector 0.3 mg IM Q10M PRN (Reason: Allergic Reaction) Rx Instructions: for 2 doses nystatin 100,000 unit/mL suspension 4 - 6 ml PO BID 30 Days Qty: 480 2RF Rx Instructions: swish and spit omeprazole 20 mg capsule,delayed release(DR/EC) 20 mg PO DAILY@829 30 Days Qty: 30 5RF nitroglycerin [Nitrostat] 0.4 mg tablet, sublingual 0.4 mg SUBLINGUAL Q5M PRN (Reason: Chest Pain) 30 Days Qty: 30 5RF metoprolol succinate 50 mg tablet extended release 24 hr 50 mg PO BID@08,2099 30 Days Qty: 60 5RF isosorbide mononitrate 60 mg tablet extended release 24 hr 60 mg PO DAILY@829 30 Days Qty: 30 5RF aspirin 81 mg tablet,delayed release (DR/EC) 81 mg PO DAILY@829 30 Days Qty: 30 5RF amlodipine 5 mg tablet 5 mg PO DAILY@829 Qty: 30 5RF albuterol sulfate 90 mcg/actuation HFA aerosol inhaler 2 puff INHALATION 6XD PRN (Reason: Shortness Of Breath) Qty: 6.7 5RF montelukast 10 mg tablet 10 mg PO DAILY@829 Qty: 30 5RF levothyroxine 50 mcg capsule 50 mcg PO DAILY@829 30 Days Qty: 30 5RF atorvastatin 20 mg tablet 30 mg PO DAILY Qty: 45 5RF revefenacin 175 mcg/3 mL solution for nebulization 175 mcg inhalation DAILY 30 Days Qty: 90 3RF azithromycin 250 mg tablet 250 mg PO .COMPLEX 90 Days Qty: 45 1RF Rx Instructions: 250 mg PO Tuesday; prednisone 5 mg tablet 5 mg PO DAILY 30 Days Qty: 30 3RF budesonide [Pulmicort] 0.5 mg/2 mL suspension for nebulization 0.5 mg inhalation BID 30 Days Qty: 120 4RF formoterol fumarate [Perforomist] 20 mcg/2 mL solution for nebulization 2 ml inhalation Q12H 30 Days Qty: 120 4RF ropinirole 1 mg tablet 1 mg PO DAILY@2099 30 Days Qty: 30 5RF cyclobenzaprine 5 mg tablet 5 mg PO TID PRN (Reason: muscle spasm) 7 Days Qty: 21 0RF clonidine HCl 0.1 mg tablet 0.1 mg PO BID@0830,2099 Qty: 180 3RF bumetanide 1 mg Tablet 1 mg PO EVERY OTHER DAY fluticasone propionate [Flonase Allergy Relief] 50 mcg/actuation [place],Suspension 2 spray INTRANASAL DAILY PRN (Reason: Nasal Congestion) Naprosyn 500 mg tablet 500 mg PO BID PRN (Reason: pain) Qty: 20 0RF Discharge Orders: Discharge ED (Routine); Ordered 03/28/22 Ordered By: Rigo Rosales Referrals: Nancy Carrasco FNP-C [Primary Care Provider] - Discharge Diet: Usual diet Discharge Activity: Increase activity as tolerated Patient Instructions: Rib Contusion (ED), Opioid Safety, Pain Management Activity Restrictions/Additional Instructions: Follow-up with your primary care provider as needed for management of your chronic pain You may use topical lidocaine with menthol to your right ribs as needed for pain use as directed on package Coding Level of Care Code ED Airport Security Screener for Dexg Fwd Exam Comprehensive
[2022-03-28] MEDS: orphenadrine 30 mg/mL Inj 2 mL IVP (16:06)
[2022-03-28 17:00] VITALS: BP 145/81; PULSE 85; RESP 16; O2SAT 93
--- NOTE | 2022-03-28 18:00 | ED_ITS ---
HPI - Chest Pain General: Chief Complaint: Chest Pain Stated Complaint: CHEST PAIN , SOB Time Seen by Provider: 03/28/22 15:41 History of Present Illness: 66-year-old female presents with left sided chest wall pain. Patient has been having chronic pain. Patient has a history of rib fractures in that area and presents because she complains of worsening pain and feels like it is moving patient reports ports no new injury. Patient reports its been going on for couple days. She complains of pain with palpation. No other systemic complaints. 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 Anemia Atypical chest pain Brain aneurysm Chronic kidney disease CKD stage III, solitary kidney Chronic migraine without aura, intractable, with status migrainosus Congestive heart failure COPD (chronic obstructive pulmonary disease) Depression Endoleak post (EVAR) endovascular aneurysm repair GERD (gastroesophageal reflux disease) History of stent insertion of renal artery Hypercholesteremia Hypertension Hypertensive urgency Resolved Hypothyroidism Inguinal swelling Normal colonoscopy Osteoporosis Peripheral vascular disease Psychiatric care Restless leg Solitary kidney Surgical History H/O: hysterectomy History of renal stent Herculink stent History of repair of aneurysm of abdominal aorta using endovascular stent graft Hx of tonsillectomy S/P appendectomy Family History Mother CAD (coronary artery disease) Chronic kidney disease (CKD) Dementia Stroke Father CAD (coronary artery disease) Cancer Diabetes Brother CAD (coronary artery disease) Cancer Lung disease Grandfather Cancer Grandmother Diabetes Family/Other Lung disease Suicide Other Hypertension Denies family history of Clotting disorder Anesthesia complication Bleeding disorder Social History Smoking and tobacco status: former smoker Quit status (tobacco): has quit using tobacco Year quit tobacco: 2005 - PPD x 35 Years Former quit date comment: Started at age 18 Second hand smoke exposure: No Smoking risk assessment/counseling performed?: No Alcohol intake: never Desire information about alcohol rehabilitation?: No Counseling given: No Adopted: No Caregiver/support person: No Lives independently: Yes Household members: family and children Housing: House Marital status: / Marital status details: 2005 Number of children: 12 Number of grandchildren: 4 Highest education level completed: Master's Degree Education level details: Criminal Justice service: No Current occupational status: disabled Current occupational exposures/hazards: No Pets and animals: Yes Pets & animals: cat(s), dog(s) and farm animals Farm Animals: cattle History of recent travel: No Leisure activites: reading and other Leisure activities details: watch TV Sexually active: No Current gender identity: Female Yudy/Confucianism: [employer] Special yudy needs: No Agree to transfusion: Yes Financial difficulty paying for basics: Somewhat Hard Female Reproductive History: Date of last menstrual period: 10/21/20 Para: 0 Spontaneous abortions: Yes Physical Exam Const: COMMON NORMALS: patient oriented x3 and alert Chest: CHEST: No crepitus and Yes other (Tenderness to palpation left anterior chest wall) Resp: COMMON NORMALS: normal respiratory effort, No use of accessory muscles and clear to auscultation bilaterally AUSCULTATION: clear to auscultation bilaterally Cardio: COMMON NORMALS: regular rate and regular rhythm RATE: regular rate RHYTHM: regular rhythm GI: COMMON NORMALS: Soft to palpation and non-tender PALPATION: Yes Soft to palpation Extremity: COMMON NORMALS: normal to inspection, full ROM and capillary refill normal Neuro: COMMON NORMALS: patient oriented x3, moves all extremities, no focal motor deficits and no sensory deficits noted SENSORIUM/ORIENTATION: Yes alert Psych: COMMON NORMALS: mental status grossly normal and speech normal SPEECH: Yes normal speech Skin: COMMON NORMALS: no rashes or lesions noted GENERAL SKIN EXAM: no rashes or lesions noted Course Vital Signs: Vital signs: Vital Signs Temperature 98.2 F 09/18/22 15:33 Pulse Rate 66 03/28/22 18:07 Respiratory Rate 16 03/28/22 18:07 Blood Pressure 118/94 03/28/22 18:07 Pulse Oximetry 100 03/28/22 18:07 Oxygen Delivery Me thod 03/28/22 15:33 Oxygen Flow Rate 4 03/28/22 15:33 MDM - Chest Pain Medical Decision Making Patient with old fractures on x-ray but no acute rib fractures identified. Patient was requesting pain medication or recommend she follow-up with her primary care provider. Patient stable and discharged home Lab Data Radiology Impressions Ribs X-Ray 03/28/22 15:47 IMPRESSION: No acute displaced rib fracture identified. Discharge Plan Discharge Patient Disposition: Home Clinical Impression: Rib pain on right side Condition: Stable Prescriptions: New cyclobenzaprine 5 mg tablet 5 mg PO TID PRN (Reason: muscle spasm) Qty: 10 0RF No Action nystatin-triamcinolone 100,000-0.1 unit/gram-% ointment 1 applic topical TID Qty: 30 0RF bupropion HCl [Wellbutrin XL] 150 mg tablet extended release 24 hr 150 mg PO QAM Qty: 30 2RF buspirone 5 mg tablet 5 mg PO TID Qty: 90 2RF citalopram 40 mg tablet 40 mg PO DAILY@0830 30 Days Qty: 30 2RF hydroxyzine HCl 50 mg tablet 50 mg PO QID PRN (Reason: anxiety) Qty: 120 2RF albuterol sulfate 2.5 mg /3 mL (0.083 %) solution for nebulization 2.5 mg INHALATION QID PRN (Reason: Shortness Of Breath) 30 Days Qty: 75 5RF epinephrine 0.3 mg/0.3 mL auto-injector 0.3 mg IM Q10M PRN (Reason: Allergic Reaction) Rx Instructions: for 2 doses nystatin 100,000 unit/mL suspension 4 - 6 ml PO BID 30 Days Qty: 480 2RF Rx Instructions: swish and spit omeprazole 20 mg capsule,delayed release(DR/EC) 20 mg PO DAILY@0830 30 Days Qty: 30 5RF nitroglycerin [Nitrostat] 0.4 mg tablet, sublingual 0.4 mg SUBLINGUAL Q5M PRN (Reason: Chest Pain) 30 Days Qty: 30 5RF metoprolol succinate 50 mg tablet extended release 24 hr 50 mg PO BID@829,2099 30 Days Qty: 60 5RF isosorbide mononitrate 60 mg tablet extended release 24 hr 60 mg PO DAILY@829 30 Days Qty: 30 5RF aspirin 81 mg tablet,delayed release (DR/EC) 81 mg PO DAILY@829 30 Days Qty: 30 5RF amlodipine 5 mg tablet 5 mg PO DAILY@829 Qty: 30 5RF albuterol sulfate 90 mcg/actuation HFA aerosol inhaler 2 puff INHALATION 6XD PRN (Reason: Shortness Of Breath) Qty: 6.7 5RF montelukast 10 mg tablet 10 mg PO DAILY@829 Qty: 30 5RF levothyroxine 50 mcg capsule 50 mcg PO DAILY@829 30 Days Qty: 30 5RF atorvastatin 20 mg tablet 30 mg PO DAILY Qty: 45 5RF revefenacin 175 mcg/3 mL solution for nebulization 175 mcg inhalation DAILY 30 Days Qty: 90 3RF azithromycin 250 mg tablet 250 mg PO .COMPLEX 90 Days Qty: 45 1RF Rx Instructions: 250 mg PO Tuesday; prednisone 5 mg tablet 5 mg PO DAILY 30 Days Qty: 30 3RF budesonide [Pulmicort] 0.5 mg/2 mL suspension for nebulization 0.5 mg inhalation BID 30 Days Qty: 120 4RF formoterol fumarate [Perforomist] 20 mcg/2 mL solution for nebulization 2 ml inhalation Q12H 30 Days Qty: 120 4RF ropinirole 1 mg tablet 1 mg PO DAILY@2099 30 Days Qty: 30 5RF cyclobenzaprine 5 mg tablet 5 mg PO TID PRN (Reason: muscle spasm) 7 Days Qty: 21 0RF clonidine HCl 0.1 mg tablet 0.1 mg PO BID@829,2099 Qty: 180 3RF bumetanide 1 mg Tablet 1 mg PO EVERY OTHER DAY fluticasone propionate [Flonase Allergy Relief] 50 mcg/actuation [place],Suspension 2 spray INTRANASAL DAILY PRN (Reason: Nasal Congestion) Naprosyn 500 mg tablet 500 mg PO BID PRN (Reason: pain) Qty: 20 0RF Discharge Orders: Discharge ED (Routine); Ordered 03/28/22 Ordered By: Rigo Rosales Referrals: Nancy Carrasco FNP-C [Primary Care Provider] - Discharge Diet: Usual diet Discharge Activity: Increase activity as tolerated Patient Instructions: Rib Contusion (ED), Opioid Safety, Pain Management Activity Restrictions/Additional Instructions: Follow-up with your primary care provider as needed for management of your chronic pain You may use topical lidocaine with menthol to your right ribs as needed for pain use as directed on package Coding Level of Care Code ED Highway Engineering Technician for Leann Crowley
[2022-03-28 18:07] VITALS: BP 118/94; PULSE 66; RESP 16; O2SAT 100
== END 2022-03-28 18:09 | disposition home or self-care (01) ==
PROVIDERS: Emergency Provider Student in an Organized Health Care Education/Training Program; PCP Nurse Practitioner Family
DX: R07.81 Pleurodynia (principal); Z79.82 Long term (current) use of aspirin; Z87.891 Personal history of nicotine dependence; I13.0 Hypertensive heart and chronic kidney disease with heart failure and stage 1 through stage 4 chronic kidney disease, or unspecified chronic kidney disease; N18.30 Chronic kidney disease, stage 3 unspecified; I50.9 Heart failure, unspecified; J44.9 Chronic obstructive pulmonary disease, unspecified
CPT/HCPCS: 71101; 96374; 96375; 99284; J1885; J2360

== ENCOUNTER → 2022-04-05 14:00 | Outpatient (BNVA) | payer MEDICAID, SELFPAY | PROVIDERS: PCP Nurse Practitioner Family; Visit Provider Nurse Practitioner Family | DX: J44.9 Chronic obstructive pulmonary disease, unspecified (principal); I10 Essential (primary) hypertension; R07.89 Other chest pain; E03.9 Hypothyroidism, unspecified; K21.9 Gastro-esophageal reflux disease without esophagitis; E78.00 Pure hypercholesterolemia, unspecified; Z12.11 Encounter for screening for malignant neoplasm of colon | CPT/HCPCS: 80053; 80061; 84443; 85025 ==

== ENCOUNTER → 2022-04-19 16:00 | Outpatient (BNVA) | payer MEDICAID, SELFPAY | PROVIDERS: PCP Nurse Practitioner Family; Visit Provider Registered Nurse | DX: N18.31 Chronic kidney disease, stage 3a (principal) | CPT/HCPCS: 80048; 80069; 82306; 82310; 83970; 85025 ==

== ENCOUNTER → 2022-04-26 12:08 | Outpatient (BNVA) | payer MEDICAID, SELFPAY | PROVIDERS: PCP Nurse Practitioner Family; Visit Provider Internal Medicine Nephrology | DX: N18.31 Chronic kidney disease, stage 3a (principal) | CPT/HCPCS: 82570 ==

== ENCOUNTER 2022-04-28 09:45 | Outpatient (CLI) | payer MEDICAID, SELFPAY ==
--- NOTE | 2022-04-28 09:30 | USCV_ITS ---
Hali James Age: 66 Gender: F : 1955 Exam Date: 04/28/2022 09:58 Ordering Phys: Edil Hill MD (Andy) ([email or web address]) Technologist: JANESSA Exam Location: [facility] [place] Indication: AAA STENT REPAIR HISTORY: Diameter (cm) AP x Transverse x Length Velocity (cm/s) Waveform Prox Aorta: 2.13 x 1.98 x 140.00 Mid Aorta: 1.57 x 2.00 x 124.70 Distal Aorta: x x Right Iliac Prox: 0.80 x 1.02 x 69.40 Left Iliac Prox: 0.80 x 0.98 x 48.80 Stent Prox Landing 2.02 x 1.98 x 228.70 Aneurysmal Sac Max 2.91 x 2.73 x 4.82 Lt Lat Sac Dim 0.92 Rt Lat Sac Dim 0.74 Stent Dist Landing 0.92 0.74 x x Right Iliac Stent x x 69.40 Left Iliac Stent x x 48.80 Right Renal Art 25.60 Left Renal Art 35.50 FINDINGS: The aneurysm sac was measuring 2.91 x 2.73 cm in the infrarenal aorta. Proximal aorta measures 2.1 x 1.98 Mid abdominal aorta measures 1.57 x 2.0 cm. The proximal right iliac artery measures 0.8 x 1.02 The proximal left iliac artery measured 0.8 x 0.98 cm CONCLUSIONS Infrarenal abdominal aortic aneurysm sac measuring 2.91 x 2.73 cm. The proximal landing site was not visualized well High Doppler flow velocity was noted at the proximal landing site, suggesting hemodynamically significant stenosis The distal landing site in the left iliac artery measures 0.92 x 0.74 cm Technically somewhat difficult study Dr Guillermo Culver MD [facility] (Electronically Signed) Final Date: 06 May 2022 00:25 S
== END 2022-04-28 09:46 | disposition home or self-care (01) ==
LOC: RAD 09:46
PROVIDERS: PCP Nurse Practitioner Family; Visit Provider Thoracic Surgery (Cardiothoracic Vascular Surgery)
DX: I71.40 Abdominal aortic aneurysm, without rupture, unspecified (principal)
CPT/HCPCS: 93978

== ENCOUNTER 2022-04-28 13:23 | Outpatient (CLI) | payer MEDICAID, SELFPAY ==
[2022-04-28 14:19] LABS: Creatinine Urine, Random 133 mg/dL (28-217); Microalbum Creatinine Ratio Ur 8 mg/dL (0-20); Microalbumin Random Urine 1 ug/dL (0-20)
[2022-04-28 14:28] LABS: Anion Gap 14.4 (5-19); Blood Urea Nitrogen 33 mg/dL (8-23); Carbon Dioxide 26 mmol/L (22-29); Chloride 100 mmol/L (98-107); Glomerular Filtration Rate 30.3 mL/min (90-130); Glucose 98 mg/dL (65-115); Osmolality Calculated 289 mOsm/kg (285-295); Potassium 4.4 mmol/L (3.5-5.1); Sodium 136 mmol/L (136-145)
== END 2022-04-28 13:24 | disposition home or self-care (01) ==
LOC: LAB 13:25
PROVIDERS: PCP Nurse Practitioner Family; Visit Provider Internal Medicine Nephrology
DX: N18.31 Chronic kidney disease, stage 3a (principal)
CPT/HCPCS: 36415; 80048; 82044

== ENCOUNTER → 2022-05-03 13:24 | Outpatient (BNVA) | payer MEDICAID, SELFPAY | PROVIDERS: PCP Nurse Practitioner Family; Visit Provider Internal Medicine Cardiovascular Disease | DX: I13.0 Hypertensive heart and chronic kidney disease with heart failure and stage 1 through stage 4 chronic kidney disease, or unspecified chronic kidney disease (principal); N18.30 Chronic kidney disease, stage 3 unspecified; I50.9 Heart failure, unspecified; Z87.891 Personal history of nicotine dependence; D64.9 Anemia, unspecified; Z98.890 Other specified postprocedural states; Z86.79 Personal history of other diseases of the circulatory system; Z95.828 Presence of other vascular implants and grafts; I73.9 Peripheral vascular disease, unspecified | CPT/HCPCS: 99214 ==

== ENCOUNTER 2022-05-10 06:28 | Inpatient (IN) | payer MEDICARE, MEDICAID, SELFPAY ==
[2022-05-10] VITALS (157 sets, daily range): BP systolic 101–174; BP diastolic 56–129; PULSE 85–101; RESP 11–31; TEMP 36.2–36.9; O2SAT 6–100; BMI 20.5
--- NOTE | 2022-05-10 | US_ITS ---
WS: [id number] RENAL ULTRASOUND URINARY BLADDER ULTRASOUND HISTORY: renal failure COMPARISON: 11/26/2020 TECHNIQUE: 2-D and color Doppler imaging of the kidney submitted. Right kidney: 9.0 cm x 4.9 cm x 4.0 cm. Normal echogenicity with no hydronephrosis or mass. Left kidney: Severely atrophied LEFT kidney has been previously described. Kidney is not identified b y ultrasound. Recent CT from 05/10/2022 demonstrating atrophic small kidney. No mass identified. Aorta: Normal. Urinary Bladder: Nondistended urinary bladder. There is a Martins catheter in place. US/US renal BI* [id number] IMPRESSION: 1. LEFT kidney is not identified. No renal mass. Severe atrophy of the LEFT ki dney has been previously described. 2. Normal RIGHT kidney.
--- NOTE | 2022-05-10 06:33 | ECG_ITS ---
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 Measurements Intervals [place] Rate: 97 P: 84 TX: 145 QRS: 83 QRSD: 69 T: 68 QT: 353 QTc: 449 Interpretive Statements SINUS RHYTHM MODERATE ST DEPRESSION [0.05+ mV ST DEPRESSION] Compared to ECG 03/17/2022 00:38:16 ST (T wave) deviation now present Electronically Signed On 05-10-2022 14:53:18 CDT by Nabil Cazares M.D. [id number] f
--- NOTE | 2022-05-10 06:49 | CTR_ITS ---
PROCEDURE INFORMATION: Exam: CT Abdomen And Pelvis Without Contrast Exam date and time: 05/10/2022 7:32 AM Age: 66 years old Clinical indication: Abdominal pain; Localized; Lower; Prior surgery; Surgery type: Aaa endograft. Appy. Hysterectomy. Nephrectomy. TECHNIQUE: Imaging protocol: Computed tomography of the abdomen and pelvis without contrast. The sensitivity and specificity for detection of intra-abdominal pathology is decreased due to lack of intravenous and oral contrast. Radiation optimization: All CT scans at this facility use at least one of these dose optimization techniques: automated exposure control; mA and/or kV adjustment per patient size (includes targeted exams where dose is matched to clinical indication); or iterative reconstruction. COMPARISON: CT chest abd pel w con* 11/05/2021 1:29 AM RADIATION DOSE METRICS: Total DLP (mGy-cm): 270.5 FINDINGS: Liver: Unremarkable. Gallbladder and bile ducts: Gallbladder wall edema noted. No calcified stones. Pancreas: Peripancreatic edema and stranding noted. Spleen: No splenomegaly. Adrenal glands: Normal. No mass. Kidneys and ureters: Atrophic left kidney. Unremarkable appearance of the right kidney. Stomach and bowel: Mild gastric wall thickening which may be seen with gastritis. No dilated bowel loops. No high-grade obstruction. Appendix: The appendix is not identified. However, there are no right lower quadrant inflammatory changes. Intraperitoneal space: No free air. No significant fluid collection. Vasculature: Aorto-iliac endovascular stent grafts noted. Redemonstration of an abdominal aortic aneurysm measuring 3.2 x 3.4 cm, no change. Lymph nodes: No enlarged lymph nodes. Urinary bladder: Unremarkable as visualized. Reproductive: Status post hysterectomy. Bones/joints: Degenerative changes of the lumbar spine. Mild anterior superior endplate fracture of L3, age indeterminate. Soft tissues: Unremarkable. CT/CT abdomen pelvis wo con [id number] IMPRESSION: 1. Acute pancreatitis. Small amount of free fluid noted in the pelvis. 2. Mild gastric wall thickening which may be seen with gastritis. 3. Gallbladder wall edema. No calcified stones. 4. Stable abdominal aortic aneurysm measuring 3.2 x 3.4 cm. 5. Mild anterior superior endplate fracture of L3, age indeterminate.
--- NOTE | 2022-05-10 06:50 | XRR_ITS ---
PROCEDURE INFORMATION: Exam: XR Chest Exam date and time: 05/10/2022 7:11 AM Age: 66 years old Clinical indication: Cough and dyspnea; Prior surgery; Surgery type: Aaa; Patient HX: PT could not give history. Order states that PT has abdomen pain and possible gi bleed; Additional info: Dyspnea/cough TECHNIQUE: Imaging protocol: Radiologic exam of the chest. Views: 1 view. COMPARISON: CR XR ribs LT mn 3V w CXR1V [id number] 03/28/2022 3:57 PM FINDINGS: Lungs: Unremarkable. No consolidation. Pleural spaces: Unremarkable. No pleural effusion. No pneumothorax. Heart/Mediastinum: Unremarkable. No cardiomegaly. Bones/joints: Unremarkable. XR/XR chest 1V portable [id number] IMPRESSION: No acute findings.
[2022-05-10] MEDS: dextrose 50% syringe 50 mL (06:53)
[2022-05-10 07:02] LABS: Blood Gas Sample Type Arterial; Ionized Calcium Level - ABG 1.2 mmol/L (1.1-1.4); Oxygen Device NC; Potassium Level - ABG 4.7 mmol/L (3.5-5.0)
[2022-05-10 07:07] LABS: Glucose Point of Care 391 mg/dL (70-110)
--- NOTE | 2022-05-10 07:16 | ED_ITS ---
HPI - GI Bleed General: Chief complaint: GI Bleed Stated complaint: Abd Pain/Poss GI Bleed Time Seen by Provider: 05/10/22 06:33 Source: patient Mode of arrival: EMS History of Present Illness: 66-year-old female brought in by EMS. Complaining of abdominal pain she was found on the floor by her family unknown length of downtime she is awake with no focal logic deficits but is somewhat lethargic her blood glucose on arrival here is 50. She does respond to an amp of D50. She reports having single episode of hematochezia. She denies any fever sweats or chills. No vomiting. No further hematochezia. She has a history of Abdominal aortic aneurysm with previous stenting. She also has a history of severe COPD and is on oxygen chronically at 2 L/min she does increase it with activity level to maintain her oxygen saturation. complaint: gross hematochezia (Single episode) and other (Hypoglycemia) Onset (ago): hour(s) Pain Consistency: constant Severity: moderate Relieving factors: none Exacerbating factors: none Associated symptoms: Reports abdominal pain, malaise, nausea, poor appetite and weakness; Denies chills, easy bruising, epistaxis, fever(s), headache(s), other bleeding, rash, syncope or vomiting Review of Systems Const: Reports: malaise; Denies: fever(s) or chills ENMT: Denies: epistaxis Card: Denies: chest pain, palpitations, irregular heart rhythm or syncope Resp: Denies: dyspnea, productive cough or non-productive cough GI: Reports: abdominal pain, nausea and hematochezia; Denies: vomiting or hematemesis : Denies: flank pain, difficulty voiding, dysuria, urinary frequency or urinary urgency Skin/Breast: Denies: rash Neuro: Denies: headache(s) Bill/Lymph: Denies: easy bruising PFSH ED PFSH: Medical History AAA (abdominal aortic aneurysm) 4.1 x 4.4 x 5.7 cm 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 Anemia Atypical chest pain Brain aneurysm Chronic kidney disease CKD stage III, solitary kidney Chronic migraine without aura, intractable, with status migrainosus Congestive heart failure COPD (chronic obstructive pulmonary disease) Depression Endoleak post (EVAR) endovascular aneurysm repair GERD (gastroesophageal reflux disease) History of stent insertion of renal artery Hypercholesteremia Hypertension Hypertensive urgency Resolved Hypothyroidism Inguinal swelling Normal colonoscopy Osteoporosis Peripheral vascular disease Psychiatric care Restless leg Solitary kidney Surgical History H/O: hysterectomy History of renal stent Herculink stent History of repair of aneurysm of abdominal aorta using endovascular stent graft Hx of tonsillectomy S/P appendectomy Family History Mother CAD (coronary artery disease) Chronic kidney disease (CKD) Dementia Stroke Father CAD (coronary artery disease) Cancer Diabetes Brother CAD (coronary artery disease) Cancer Lung disease Grandfather Cancer Grandmother Diabetes Family/Other Lung disease Suicide Other Hypertension Denies family history of Clotting disorder Anesthesia complication Bleeding disorder Social History Smoking and tobacco status: former smoker Quit status (tobacco): has quit using tobacco Year quit tobacco: 2005 - PPD x 35 Years Former quit date comment: Started at age 18 Second hand smoke exposure: No Smoking risk assessment/counseling performed?: No Alcohol intake: never Desire information about alcohol rehabilitation?: No Counseling given: No Desire information about substance/drug rehabilitation?: No Counseling given: No Adopted: No Caregiver/support person: No Lives independently: Yes Household members: family and children Housing: House Marital status: / Marital status details: 2005 Number of children: 12 Number of grandchildren: 4 Highest education level completed: Master's Degree Education level details: Criminal Justice service: No Current occupational status: disabled Current occupational exposures/hazards: No Pets and animals: Yes Pets & animals: cat(s), dog(s) and farm animals Farm Animals: cattle History of recent travel: No Leisure activites: reading and other Leisure activities details: watch TV Sexually active: No Current gender identity: Female Yudy/Confucianist: [employer] Special yudy needs: No Agree to transfusion: Yes Financial difficulty paying for basics: Somewhat Hard Female Reproductive History: Date of last menstrual period: 10/21/20 Para: 0 Spontaneous abortions: Yes Physical Exam Const: GENERAL APPEARANCE: cooperative and comfortable ORIENTATION/CO NSCIOUSNESS: Yes awake HENMT: COMMON NORMALS: normocephalic, atraumatic and hearing grossly normal bilaterally HEAD & SCALP: normocephalic and atraumatic Resp: COMMON NORMALS: normal respiratory effort, No retractions, No use of accessory muscles and clear to auscultation bilaterally AUSCULTATION: clear to auscultation bilaterally Cardio: COMMON NORMALS: regular rate, regular rhythm and No murmurs present (Cardio) RATE: regular rate RHYTHM: regular rhythm GI: COMMON NORMALS: No hepatosplenomegaly present AUSCULTATION: Yes normoactive bowel sounds PALPATION: Yes Tenderness to palpation present (GI) Details: LUQ, No Guarding due to palpation present (GI) and Yes No hepatosplenomegaly present Extremity: COMMON NORMALS: normal to inspection, capillary refill normal, no clubbing, cyanosis or edema, no calf tenderness and no pedal edema Skin: COMMON NORMALS: no rashes or lesions noted GENERAL SKIN EXAM: no rashes or lesions noted Course Vital Signs: Vital signs: Vital Signs Temperature 97.1 F L 05/10/22 06:29 Pulse Rate 91 05/10/22 09:15 Respiratory Rate 17 05/10/22 09:15 Blood Pressure 150/100 05/10/22 09:15 Pulse Oximetry 100 05/10/22 09:15 Oxygen Delivery Me thod 05/10/22 06:54 Oxygen Flow Rate 2 05/10/22 06:54 MDM - GI Bleed Medical Decision Making Acute pancreatitis on CT although her lipase is normal. She also has a mild acute exacerbation of COPD and acute kidney injury. she is having black tarry stools her hemoglobin is slightly lower than her usual baseline at 10 7 she is also thrombocytopenic at 85. Discussed with Dr. Lees will admit after that discussion her troponin came back and had a delta positive. We have ordered Pro tonix and IV fluids. Will admit Dr. Porras's written orders. Medical Records I reviewed the patient's medical records. Lab Data I reviewed the patient's lab results. : 05/10/22 07:00 05/10/22 07:00 Radiology Impressions Abdomen/Pelvis CT 05/10/22 06:49 IMPRESSION: 1. Acute pancreatitis. Small amount of free fluid noted in the pelvis. 2. Mild gastric wall thickening which may be seen with gastritis. 3. Gallbladder wall edema. No calcified stones. 4. Stable abdominal aortic aneurysm measuring 3.2 x 3.4 cm. 5. Mild anterior superior endplate fracture of L3, age indeterminate. Chest X-Ray 05/10/22 06:50 IMPRESSION: No acute findings. Laboratory Results WBC 18.0 10^3/uL (4.0-10.0) H 05/10/22 07:00 RBC 3.91 10^6/uL (4.1-5.3) L 05/10/22 07:00 Hgb 10.7 g/dL (11.5-15.3) L 05/10/22 07:00 Hct 34.0 % (37.0-47.0) L 05/10/22 07:00 MCV 87.0 fl (81-99) 05/10/22 07:00 MCH 27.4 pg (28.0-34.0) L 05/10/22 07:00 MCHC 31.5 g/dL (30.0-36.0) 05/10/22 07:00 RDW 14.8 % (12.1-15.1) 05/10/22 07:00 Plt Count 85 10^3/cmm (130-400) L 05/10/22 07:00 MPV 10.9 fL (7.4-10.4) H 05/10/22 07:00 Neut % (Auto) 85.5 % 05/10/22 07:00 Lymph % (Auto) 10.5 % 05/10/22 07:00 Bertie % (Auto) 3.0 % 05/10/22 07:00 Eos % (Auto) 0.0 % 05/10/22 07:00 Baso % (Auto) 0.2 % 05/10/22 07:00 Neut # (Auto) 15.35 10^3/uL (1.8-7.7) H 05/10/22 07:00 Lymph # (Auto) 1.9 10^3/uL (0.8-4.8) 05/10/22 07:00 Bertie # (Auto) 0.5 10^3/uL (0.2-0.9) 05/10/22 07:00 Eos # (Auto) 0.0 10^3/uL (0.0-0.8) 05/10/22 07:00 Baso # (Auto) 0.0 10^3/uL (0.0-0.1) 05/10/22 07:00 Nucleated RBC % (auto) 0 % 05/10/22 07:00 Nucleated RBCs # 0.0 /100WBC 05/10/22 07:00 Specimen Type Arterial 05/10/22 06:50 Sample Site Brachial, right 05/10/22 06:50 ABG pH 7.34 (7.35-7.45) L 05/10/22 06:50 ABG pCO2 32.9 mmHg (35-45) L 05/10/22 06:50 ABG pO2 108.0 mmHg (80.0-100.0) H 05/10/22 06:50 ABG HCO3 17.7 mmol/L (22-26) L 05/10/22 06:50 ABG O2 Saturation 98.3 05/10/22 06:50 ABG Base Excess -7.2 mmol/L (-2.0-2.0) L 05/10/22 06:50 Roly Test N/a 05/10/22 06:50 A-a O2 Gradient 8.0 mmHg (5-10) 05/10/22 06:50 Hematocrit 35.4 % (37-47) L 05/10/22 06:50 Hgb O2 Saturation 96.5 % (95-100) 05/10/22 06:50 Carboxyhemoglobin 1.1 %THgb (0.4-20.1) 05/10/22 06:50 Methemoglobin 0.7 % (0.4-1.5) 05/10/22 06:50 Total Hemoglobin 11.6 g/dL (12-16) L 05/10/22 06:50 Sodium 127.0 mmol/L (131-143) L 05/10/22 06:50 Potassium 4.7 mmol/L (3.5-5.0) 05/10/22 06:50 Glucose 325.0 mg/dL (70-115) H 05/10/22 06:50 Ionized Calcium 1.2 mmol/L (1.1-1.4) 05/10/22 06:50 O2 Delivery Device Nc 05/10/22 06:50 O2 Liters/Min 3.0 % 05/10/22 06:50 Post Graduate Internship ID Damien 05/10/22 06:50 Sodium 124 mmol/L (136-145) L 05/10/22 07:00 Potassium 4.9 mmol/L (3.5-5.1) 05/10/22 07:00 Chloride 96 mmol/L (98-107) L 05/10/22 07:00 Carbon Dioxide 16 mmol/L (22-29) L 05/10/22 07:00 Anion Gap 16.9 (5-19) 05/10/22 07:00 BUN 82 mg/dL (8-23) H* D 05/10/22 07:00 Creatinine 2.8 mg/dL (0.5-0.9) H 05/10/22 07:00 GFR Calculation 17.0 mL/min (90-130) L 05/10/22 07:00 Glucose 412 mg/dL (65-115) H 05/10/22 07:00 POC Glucose 161 mg/dL (70-110) H 05/10/22 08:54 Calculated Osmolality 300 mOsm/kg (285-295) H 05/10/22 07:00 Lactic Acid 2.1 mmol/L (0.5-2.2) 05/10/22 07:00 Calcium 7.6 mg/dL (8.5-10.5) L 05/10/22 07:00 Total Bilirubin 0.2 mg/dL (0.15-1.2) 05/10/22 07:00 AST 29 U/L (0-32) 05/10/22 07:00 ALT 13 U/L (0-33) 05/10/22 07:00 Alkaline Phosphatase 82 U/L (35-105) 05/10/22 07:00 Creatine Kinase 105 U/L (26-192) 05/10/22 07:00 Troponin T Baseline 57 ng/L (0-10) H 05/10/22 07:00 Troponin T 120 Minute 71.57 ng/L (0-10) H 05/10/22 09:00 Delta Troponin T 14.57 ABS# (0-10) H* 05/10/22 09:00 Total Protein 3.6 g/dL (6.6-8.7) L 05/10/22 07:00 Albumin 1.7 g/dL (3.5-5.2) L 05/10/22 07:00 Globulin 1.9 g/dL (1.3-4.6) 05/10/22 07:00 Lipase 20 U/L (13-60) 05/10/22 07:00 Discharge Plan Discharge Patient Disposition: Admitted As Inpatient Clinical Impression: Acute kidney injury, Acute upper GI bleed, COPD with acute exacerbation, Pancreatitis Condition: Stable Prescriptions: No Action albuterol sulfate 2.5 mg /3 mL (0.083 %) solution for nebulization 2.5 mg INHALATION QID PRN (Reason: Shortness Of Breath) 30 Days Qty: 75 5RF epinephrine 0.3 mg/0.3 mL auto-injector 0.3 mg IM Q10M PRN (Reason: Allergic Reaction) Rx Instructions: for 2 doses revefenacin 175 mcg/3 mL solution for nebulization 175 mcg inhalation DAILY 30 Days Qty: 90 3RF azithromycin 250 mg tablet 250 mg PO .COMPLEX 90 Days Qty: 45 1RF Rx Instructions: 250 mg PO Tuesday; budesonide [Pulmicort] 0.5 mg/2 mL suspension for nebulization 0.5 mg inhalation BID 30 Days Qty: 120 4RF formoterol fumarate [Perforomist] 20 mcg/2 mL solution for nebulization 2 ml inhalation Q12H 30 Days Qty: 120 4RF ropinirole 1 mg tablet 1 mg PO DAILY@2099 30 Days Qty: 30 5RF bupropion HCl [Wellbutrin XL] 150 mg tablet extended release 24 hr 150 mg PO QAM Qty: 30 2RF buspirone 5 mg tablet 5 mg PO TID Qty: 90 2RF citalopram 40 mg tablet 40 mg PO DAILY@829 30 Days Qty: 30 2RF hydroxyzine HCl 50 mg tablet 50 mg PO QID PRN (Reason: anxiety) Qty: 120 2RF atorvastatin 40 mg tablet 30 mg PO DAILY clonidine HCl 0.1 mg tablet 0.1 mg PO BID@0830,2100 Qty: 180 3RF isosorbide mononitrate 60 mg tablet extended release 24 hr 60 mg PO DAILY@30 30 Days Qty: 30 5RF albuterol sulfate 90 mcg/actuation HFA aerosol inhaler 2 puff INHALATION 6XD PRN (Reason: Shortness Of Breath) Qty: 6.7 5RF aspirin 81 mg tablet,delayed release (DR/EC) 81 mg PO DAILY@30 30 Days Qty: 30 5RF metoprolol succinate 50 mg tablet extended release 24 hr 50 mg PO BID@08,2099 30 Days Qty: 60 5RF montelukast 10 mg tablet 10 mg PO DAILY@829 Qty: 30 5RF nitroglycerin [Nitrostat] 0.4 mg tablet, sublingual 0.4 mg SUBLINGUAL Q5M PRN (Reason: Chest Pain) 30 Days Qty: 30 5RF omeprazole 20 mg capsule,delayed release(DR/EC) 20 mg PO DAILY@829 30 Days Qty: 30 5RF bumetanide 1 mg Tablet 1 mg PO DAILY fluticasone propionate [Flonase Allergy Relief] 50 mcg/actuation [place],Suspens ion 2 spray INTRANASAL DAILY PRN (Reason: Nasal Congestion) cyclobenzaprine 5 mg tablet 5 mg PO TID PRN (Reason: muscle spasm) Qty: 10 0RF amlodipine 10 mg tablet 10 mg PO DAILY levothyroxine 50 mcg tablet 50 mcg PO DAILY Referrals: Nancy Carrasco FNP-C [Primary Care Provider] - Coding Level of Care Code ED Freelance [employer] Reporter for Chg Fwd Exam Detailed
[2022-05-10 07:19] LABS: Basophils % 0.2 %; Hemoglobin 10.7 g/dL (11.5-15.3); Lymphocytes # 1.9 10^3/uL (0.8-4.8); Lymphocytes % 10.5 %; Mean Corpuscular HGB Conc 31.5 g/dL (30.0-36.0); Mean Corpuscular Hemoglobin 27.4 pg (28.0-34.0); Mean Platelet Volume 10.9 fL (7.4-10.4); Monocytes # 0.5 10^3/uL (0.2-0.9); Neutrophils # 15.35 10^3/uL (1.8-7.7); Neutrophils % 85.5 %; Nucleated Red Blood Cells % 0 %; Platelet Count 85 10^3/cmm (130-400); Red Blood Count 3.91 10^6/uL (4.1-5.3); Red Cell Distribution Width 14.8 % (12.1-15.1)
[2022-05-10 07:27] LABS: ABG PCO2 32.9 mmHg (35-45); ABG PH Result 7.34 (7.35-7.45); Arterial Blood Gas Hematocrit 35.4 % (37-47); Base Excess ABG -7.2 mmol/L (-2.0-2.0); Blood Gas Sample Site Brachial, right; Carboxyhemoglobin 1.1 %THgb (0.4-20.1); HCO3 ABG 17.7 mmol/L (22-26); HGB O2 Sat 96.5 % (95-100); Methemoglobin 0.7 % (0.4-1.5); Oxygen Saturation ABG 98.3; Total Hemoglobin 11.6 g/dL (12-16)
[2022-05-10 07:42] LABS: Lactic Sepsis W/Reflex 2.1 mmol/L (0.5-2.2)
[2022-05-10 07:43] LABS: Alanine Aminotransferase 13 U/L (0-33); Alkaline Phosphatase 82 U/L (35-105); Anion Gap 16.9 (5-19); Aspartate Amino Transferase 29 U/L (0-32); Creatine Phosphokinase 105 U/L (26-192); Globulin 1.9 g/dL (1.3-4.6); Potassium 4.9 mmol/L (3.5-5.1); Total Bilirubin 0.2 mg/dL (0.15-1.2)
[2022-05-10 07:44] LABS: Troponin(5th) Baseline 57 ng/L (0-10)
[2022-05-10 07:55] LABS: Glucose Point of Care 199 mg/dL (70-110)
[2022-05-10 08:05] LABS: Albumin Level 1.7 g/dL (3.5-5.2); Calcium 7.6 mg/dL (8.5-10.5); Carbon Dioxide 16 mmol/L (22-29); Chloride 96 mmol/L (98-107); Glucose 412 mg/dL (65-115); Osmolality Calculated 300 mOsm/kg (285-295); Sodium 124 mmol/L (136-145); Total Protein 3.6 g/dL (6.6-8.7)
[2022-05-10 08:08] LABS: Blood Urea Nitrogen 82 mg/dL (8-23)
[2022-05-10 08:44] LABS: Lipase 20 U/L (13-60)
--- NOTE | 2022-05-10 08:50 | ECG_ITS ---
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 Measurements Intervals [place] Rate: 86 P: 83 VA: 138 QRS: 82 QRSD: 71 T: 76 QT: 365 QTc: 437 Interpretive Statements SINUS RHYTHM Compared to ECG 05/10/2022 06:33:44 ST (T wave) deviation no longer present Electronically Signed On 05-10-2022 14:57:16 CDT by Nabil Cazares M.D. [email or web address]
--- NOTE | 2022-05-10 09:00 | P.HP_ITS ---
Providers/Chief Complaint Admitting Physician: Eyal Porras MD Primary Care Provider: HERBERT Masters Chief Complaint: Abd Pain/Poss GI Bleed History of Present Illness Hali James is a 66 year old female with multiple comorbidities presenting to the emergency department with history of blood in stool, dark stool, for an unknown amount of days. Apparently she was found down on the floor by her family and hypoglycemic. She was given dextrose per ambulance services. She does not have diabetes. Family is not present during my interview. Patient is slow to respond. She reports abdominal pain, generalized. More in the lower quadrants currently. She reports she cannot urinate. In the emergency department she received some D10, and investigative studies. Review of Systems General: Reports: 10 or more systems reviewed and unremarkable except in HPI and below and ROS unobtainable due to mental status (Somewhat lethargic) Medications/Allergies Home Medications Medication Instructions Recorded Confirmed Last Taken Type fluticasone propionate 50 2 spray intranasal DAILY PRN Nasal 02/21/20 05/03/22 12/10/20 History mcg/actuation nasal Congestion spray,suspension (Flonase Allergy Relief) albuterol sulfate 2.5 mg/3 mL 2.5 mg (3 mL) inhalation QID PRN 05/15/20 05/03/22 12/10/20 Rx (0.083 %) solution for nebulization Shortness Of Breath 30 days #75 mL epinephrine 0.3 mg/0.3 mL 0.3 mg IM Q10M PRN Allergic 10/16/20 05/03/22 Unknown History injection, auto-injector Reaction bumetanide 1 mg tablet 1 mg PO EVERY OTHER DAY 06/13/21 05/03/22 Unknown History azithromycin 250 mg tablet 250 mg PO .COMPLEX COPD 90 days 11/25/21 05/03/22 Unknown Rx #45 tabs revefenacin 175 mcg/3 mL solution 175 mcg (3 mL) inhalation DAILY 30 11/25/21 04/28/22 Unknown Rx for nebulization days #90 mL budesonide 0.5 mg/2 mL suspension 0.5 mg (2 mL) inhalation BID 30 01/06/22 05/03/22 Unknown Rx for nebulization (Pulmicort) days #120 mL formoterol fumarate 20 mcg/2 mL 2 ml inhalation Q12H 30 days #120 01/06/22 05/03/22 Unknown Rx solution for nebulization mL (Perforomist) ropinirole 1 mg tablet 1 mg PO DAILY@2099 30 days #30 tabs 01/06/22 05/03/22 Unknown Rx cyclobenzaprine 5 mg tablet 5 mg PO TID PRN muscle spasm #10 03/28/22 05/03/22 Unknown Rx tabs bupropion HCl 150 mg 24 hr tablet, 150 mg PO QAM #30 tabs 03/31/22 05/03/22 Unknown Rx extended release (Wellbutrin XL) buspirone 5 mg tablet 5 mg PO TID #90 tabs 03/31/22 05/03/22 Unknown Rx citalopram 40 mg tablet 40 mg PO DAILY@829 30 days #30 03/31/22 05/03/22 Unknown Rx tabs hydroxyzine HCl 50 mg tablet 50 mg PO QID PRN anxiety #120 tabs 03/31/22 05/03/22 Unknown Rx albuterol sulfate 90 mcg/actuation 2 puff inhalation 6XD PRN 04/05/22 05/03/22 Unknown Rx aerosol inhaler Shortness Of Breath #6.7 grams aspirin 81 mg tablet,delayed 81 mg PO DAILY@829 30 days #30 04/05/22 05/03/22 Unknown Rx release tabs metoprolol succinate 50 mg 50 mg PO BID@ 30 days #60 04/05/22 05/03/22 Unknown Rx tablet,extended release 24 hr tabs montelukast 10 mg tablet 10 mg PO DAILY@829 #30 tabs 04/05/22 05/03/22 Unknown Rx nitroglycerin 0.4 mg sublingual 0.4 mg sublingual Q5M PRN Chest 04/05/22 05/03/22 Unknown Rx tablet (Nitrostat) Pain 30 days #30 tabs omeprazole 20 mg capsule,delayed 20 mg PO DAILY@829 30 days #30 04/05/22 05/03/22 Unknown Rx release caps atorvastatin 40 mg tablet 30 mg PO DAILY 05/03/22 05/03/22 Unknown History clonidine HCl 0.1 mg tablet 0.1 mg PO BID@829,2099 #180 tabs 05/03/22 05/03/22 Unknown Rx isosorbide mononitrate 60 mg 60 mg PO DAILY@30 30 days #30 05/03/22 05/03/22 Unknown Rx tablet,extended release 24 hr tabs amlodipine 10 mg tablet 10 mg PO DAILY 05/10/22 05/10/22 Unknown History levothyroxine 50 mcg tablet 50 mcg PO DAILY 05/10/22 05/10/22 Unknown History Allergies Allergy/AdvReac Type Severity Reaction Status Date / Time lisinopril Allergy Severe anaphylaxis Verified 05/10/22 09:11 Sulfa (Sulfonamide AdvReac Intermediate Itching, Verified 05/10/22 09:11 Antibiotics) burning PFSH Acute PFSH: Medical History AAA (abdominal aortic aneurysm) 4.1 x 4.4 x 5.7 cm 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 Anemia Atypical chest pain Brain aneurysm Chronic kidney disease CKD stage III, solitary kidney Chronic migraine without aura, intractable, with status migrainosus Congestive heart failure COPD (chronic obstructive pulmonary disease) Depression Endoleak post (EVAR) endovascular aneurysm repair GERD (gastroesophageal reflux disease) History of stent insertion of renal artery Hypercholesteremia Hypertension Hypertensive urgency Resolved Hypothyroidism Inguinal swelling Normal colonoscopy Osteoporosis Peripheral vascular disease Psychiatric care Restless leg Solitary kidney Surgical History H/O: hysterectomy History of renal stent Herculink stent History of repair of aneurysm of abdominal aorta using endovascular stent graft Hx of tonsillectomy S/P appendectomy Family History Mother CAD (coronary artery disease) Chronic kidney disease (CKD) Dementia Stroke Father CAD (coronary artery disease) Cancer Diabetes Brother CAD (coronary artery disease) Cancer Lung disease Grandfather Cancer Grandmother Diabetes Family/Other Lung disease Suicide Other Hypertension Denies family history of Clotting disorder Anesthesia complication Bleeding disorder Social History Smoking and tobacco status: former smoker Quit status (tobacco): has quit using tobacco Year quit tobacco: 2005 - PPD x 35 Years Former quit date comment: Started at age 18 Second hand smoke exposure: No Smoking risk assessment/counseling performed?: No Alcohol intake: never Desire information about alcohol rehabilitation?: No Counseling given: No Desire information about substance/drug rehabilitation?: No Counseling given: No Adopted: No Caregiver/support person: No Lives independently: Yes Household members: family and children Housing: House Marital status: / Marital status details: 2006 Number of children: 12 Number of grandchildren: 4 Highest education level completed: Master's Degree Education level details: Criminal Justice service: No Current occupational status: disabled Current occupational exposures/hazards: No Pets and animals: Yes Pets & animals: cat(s), dog(s) and farm animals Farm Animals: cattle History of recent travel: No Leisure activites: reading and other Leisure activities details: watch TV Sexually active: No Current gender identity: Female Yudy/Baptist: Muslim [employer] Special yudy needs: No Agree to transfusion: Yes Financial difficulty paying for basics: Somewhat Hard Female Reproductive History: Date of last menstrual period: 10/21/20 Para: 0 Spontaneous abortions: Yes Vitals/I&O/Wt Last Vital Signs Temp 97.1 F L 05/10/22 06:29 Pulse 90 05/10/22 07:45 Resp 14 05/10/22 07:45 BP 156/103 05/10/22 07:45 Pulse Ox 100 05/10/22 07:45 O2 Del Method 05/10/22 06:54 O2 Flow Rate 2 05/10/22 06:54 Weight last 48 hrs Weight 54.431 kg Physical Exam Narrative: General exam is a slow to respond white female, reporting some abdominal pain. HEENT: Atraumatic and normocephalic. Pupils equally round. Oropharynx clear Neck is supple no lymphadenopathy thyromegaly Cardiovascular regular rate and rhythm without murmur Lungs are clear without wheezing or crackles. Diminished breath sounds bilaterally Abdomen is soft. Bowel sounds are noted. Tenderness is noted generalized. No obvious organomegaly exam normal female, tarry stool noted Extremities no cyanosis clubbing or edema, cap refill brisk Skin no rash Neuro, confused with no obvious focal deficits. Data : 05/10/22 07:00 05/10/22 07:00 Other Labs: ABG demonstrates pH 7.34, PCO2 of 33, PO2 of 108 on 3 L. Calcium 7.6 LFTs normal Troponin 57 Albumin 1.7 Creatinine kinase 105 Lipase 20 Chest x-ray no infiltrate Abdominal CT demonstrates concern of acute pancreatitis with small amount of free fluid in the pelvis. Gastric wall thickening is noted. Some gallbladder wall edema. Stable aortic aneurysm 3.2 x 3.4. L3 superior endplate fracture age-indeterminate, mild Blood cultures were drawn EKG demonstrates sinus rhythm, normal axis, nonspecific ST-T wave changes. Micro: Microbiology 05/10/22 07:47 Blood Culture - Preliminary Blood SPECIMEN COLLECTED 05/10/22 07:00 Blood Culture - Preliminary Blood SPECIMEN COLLECTED A&P Assessment and plan (1) GI bleed: Patient presents with GI bleeding. It appears this may be upper. Full admission, need to go to ICU with her multiple comorbidities and likelihood of worsening status. Reviewed CT with radiology. Unfortunately this is not a CTA so cannot rule out fistula from aneurysm. However, creatinine is high and patient without urine output. Investigation of this currently may lead to high risk of need for dialysis. Repeat hemoglobin, 3 hours from initial draw Placed on Protonix drip Surgery consultation (2) Abdominal pain: See above Treat for peptic ulcer disease currently. CT results showed pancreatitis but lipase is not elevated. Lactate is not elevated. (3) Acute encephalopathy: Patient with history of being found down. Check CT head No evidence of stroke per neurologic exam Was hypoglycemic. Monitor closely for improvement (4) Acute kidney injury: Continue IV fluids Place Martins Renal ultrasound Repeat laboratory tomorrow CK was checked and not elevated. (5) Anemia: See notations under GI bleed. Patient with acute blood loss anemia Qualifiers: Anemia type: unspecified type Qualified Code(s): D64.9 - Anemia, unspecified (6) Metabolic acidosis: Likely secondary to dehydration, GI bleeding Monitor closely for improvement (7) Thrombocytopenia: Repeat laboratory tomorrow Avoid anticoagulants secondary to GI bleed and thrombocytopenia (8) Leukocytosis: Secondary to GI bleed, significant leukocytosis start on Zosyn prophylactically. Blood cultures were drawn (9) Hyponatremia: Partly secondary to pseudohyponatremia with hyperglycemia. This was after glucose bolus given in the emergency department by ER physician for hypoglycemia. Continue Accu-Cheks every 2 hours (10) Dehydration: Continue hydration, monitor for improvement in creatinine. (11) Hypoglycemia: Continue to monitor glucose every 2 hours (12) Elevated troponin: Trend troponin Consider repeat echo if significant elevations. Echo in 2019 demonstrated preserved ejection fraction (13) COPD (chronic obstructive pulmonary disease): Pulmonary toilet Qualifiers: COPD type: unspecified COPD Qualified Code(s): J44.9 - Chronic obstructive pulmonary disease, unspecified Plan Other medical problems as outlined in past medical history Full code currently. Will discuss in detail with family when they are available SCDs for DVT prophylaxis. Anticoagulation contraindicated secondary to GI bleeding. Attestations Medical Necessity Statement*: Will require greater than 2 midnight stay for evaluation and treatment of GI bleed, acute kidney injury, encephalopathy, etc. Critical Care Time: The high probability of a clinically significant, sudden or life threatening deterioration of the patient's [renal, neurologic, gastrointestinal] system(s) required my full and direct attention, intervention and personal management. The critical care time is as shown. 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
[2022-05-10 09:01] LABS: Reflex Lactate Order REFLEX LACTIC ORDERD
[2022-05-10 09:01] LABS: Glucose Point of Care 161 mg/dL (70-110)
[2022-05-10] MEDS: piperacillin-tazobactam 3.375 GM in sodium chloride 0.9% (plus) 50 ML IV ×2 (09:01→20:32)
--- NOTE | 2022-05-10 09:06 | CT_ITS ---
WS: [id number] CT HEAD TECHNIQUE: Noncontrast CT of the head obtained from the skullbase to the vertex. CLINICAL INFORMATION: confusion, history of fall COMPARISON: CT February 15, 2020 DLP: 997.[address] scans at [facility] use at least one of these dose optimization techniques: automated e xposure control; mA and/or kV adjustment per patient size (includes targeted exams where dose is matc hed to clinical indication); or iterative reconstruction. FINDINGS: No evidence of intracranial hemorrhage or mass effect. Ventricular system and basal cisterns are sue nt. Moderate small vessel changes with moderate parenchymal volume loss. Low-attenuation change in th e subcortical parietal occipital white matter bilaterally in a symmetric distribution. This can be se en with posterior reversible with myelopathy syndrome. This could be further evaluated with MRI. Tiny chronic lacunar infarcts in the basal ganglia. Vascular calcification. Paranasal sinuses and mastoid air cells are well aerated. .Normal visualized soft tissues. CT/CT head wo con* [id number] IMPRESSION: 1. No evidence of intracranial hemorrhage 2. Low-attenuation change in the bilateral parieto-occipital subcortical white matter suspicious for posterior reversible encephalopathy syndrome. Recommend correlation with hypertension. This could be further evaluated with MRI or foll owed up with CT 3. Chronic lacunar infarcts in the basal ganglia. Notified Eyal Porras MD at 05/10/2022 10:19 AM.
--- NOTE | 2022-05-10 09:12 | PC.PHAR ---
pt unable to confirm due to AMS- medication verified using external med list last filled
[2022-05-10] MEDS: morphine 4 mg/mL SDV 1 mL 2 MG IVP ×3 (09:21→22:02)
[2022-05-10 09:26] LABS: Troponin 5 2HR 71.57 ng/L (0-10)
[2022-05-10] MEDS: sodium chloride 0.9% 500 ML 1000 ML IV (09:26)
[2022-05-10 09:28] LABS: Troponin 5 2HR Delta 14.57 ABS# (0-10)
[2022-05-10 09:44] LABS: Lactic Acid level (Lactate) 1.4 mmol/L (0.5-2.2)
[2022-05-10 09:50] LABS: Magnesium 1.7 mg/dL (1.7-2.3); Thyroid Stimulating Hormone 4.55 uIU/mL (0.27-4.20)
[2022-05-10] MEDS: ondansetron 2 mg/ML SDV 2 mL 4 MG IVP ×2 (09:57→20:09)
[2022-05-10] MEDS: pantoprazole 40 mg SDV 80 MG IVP (09:58)
[2022-05-10] MEDS: sodium chloride 0.9% 500 ML 999 ML IV (10:04)
[2022-05-10] MEDS: dextrose 10% 250 ML 100 ML IV (10:08)
[2022-05-10 10:12] LABS: Glucose Point of Care 180 mg/dL (70-110)
--- NOTE | 2022-05-10 10:39 | US_ITS ---
WS: [id number] RENAL ULTRASOUND URINARY BLADDER ULTRASOUND HISTORY: renal failure COMPARISON: 11/26/2020 TECHNIQUE: 2-D and color Doppler imaging of the kidney submitted. Right kidney: 9.0 cm x 4.9 cm x 4.0 cm. Normal echogenicity with no hydronephrosis or mass. Left kidney: Severely atrophied LEFT kidney has been previously described. Kidney is not identified b y ultrasound. Recent CT from 05/10/2022 demonstrating atrophic small kidney. No mass identified. Aorta: Normal. Urinary Bladder: Nondistended urinary bladder. There is a Martins catheter in place.
[2022-05-10] MEDS: pantoprazole 40 MG in sodium chloride 0.9% (plus) 100 ML 20 MG IV ×3 (11:00→20:30)
[2022-05-10] MEDS: sodium chloride 0.9% 1,000 ML 100 ML IV (11:05)
[2022-05-10] MEDS: sodium chloride 0.9% (100 ml) 100 ML (11:07)
[2022-05-10 11:08] LABS: Basophils % 0.2 %; Hematocrit 34.2 % (37.0-47.0); Hemoglobin 10.7 g/dL (11.5-15.3); Lymphocytes # 2.3 10^3/uL (0.8-4.8); Lymphocytes % 12.1 %; Mean Corpuscular HGB Conc 31.3 g/dL (30.0-36.0); Mean Corpuscular Hemoglobin 27.6 pg (28.0-34.0); Mean Corpuscular Volume 88.1 fl (81-99); Mean Platelet Volume 9.9 fL (7.4-10.4); Monocytes % 5.3 %; Neutrophils # 15.23 10^3/uL (1.8-7.7); Neutrophils % 81.6 %; Nucleated Red Blood Cells % 0 %; Platelet Count 68 10^3/cmm (130-400); Red Blood Count 3.88 10^6/uL (4.1-5.3); Red Cell Distribution Width 14.6 % (12.1-15.1); White Blood Count 18.7 10^3/uL (4.0-10.0)
[2022-05-10] MEDS: morphine 4 mg/mL SDV 1 mL IVP (11:16)
[2022-05-10] MEDS: hyDRALAzine 20 mg/mL INJ 1 mL 10 MG IVP (13:38)
--- NOTE | 2022-05-10 13:46 | ECG_ITS ---
[facility] Test Date: 2022-05-10 Pat Name: Hali James Department: Room: ICU10 Gender: Female Replenishment Specialist: : [id number] Requested By: Brett Canela Order Number: [id number] Reading MD: Nabil Cazares M.D. Measurements Intervals [place] Rate: 89 P: 86 RI: 129 QRS: 80 QRSD: 78 T: 72 QT: 360 QTc: 440 Interpretive Statements SINUS RHYTHM Compared to ECG 05/10/2022 09:26:23 No significant changes Electronically Signed On 05-10-2022 14:57:59 CDT by Nabil Cazares M.D. [id number]
[2022-05-10 13:55] LABS: Troponin 5 6HR 81.22 ng/L (0-10)
[2022-05-10 14:08] LABS: Troponin 5 6HR Delta 24.22 ng/L (0-12)
[2022-05-10] MEDS: nicardipine 20 MG/200 ML PREMIX 50 MG IV ×2 (15:24→22:47)
--- NOTE | 2022-05-10 15:31 | PM.CONSULT ---
Providers/Reason For Consult Consulting Physician/Specialty*: Dr. Ward Petit, DO Reason for Consult*: GI bleed Attending Physician: Eyal Porras MD Primary Care Provider: HERBERT Masters History of Present Illness History of Present Illness Hali James is a 66 year old female with multiple comorbidities, who presents to the hospital after being found down at home. She is mostly groaning in the ICU right now and not really answering any questions. HPI and review of systems are limited secondary to this. Patient is able to say that she has abdominal pain and has been having dark stools but she is not oriented to time or place. Patient's daughter is at the bedside. CT abdomen pelvis shows pancreatitis but the lipase is normal Review of Systems General: Reports: 10 or more systems reviewed and unremarkable except in HPI and below Medications/Allergies Home Medications Medication Instructions Recorded Confirmed Last Taken Type fluticasone propionate 50 2 spray intranasal DAILY PRN Nasal 02/21/20 05/10/22 12/10/20 History mcg/actuation nasal Congestion spray,suspension (Flonase Allergy Relief) albuterol sulfate 2.5 mg/3 mL 2.5 mg (3 mL) inhalation QID PRN 05/15/20 05/10/22 12/10/20 Rx (0.083 %) solution for nebulization Shortness Of Breath 30 days #75 mL epinephrine 0.3 mg/0.3 mL 0.3 mg IM Q10M PRN Allergic 10/16/20 05/10/22 Unknown History injection, auto-injector Reaction bumetanide 1 mg tablet 1 mg PO DAILY 06/13/21 05/10/22 Unknown History azithromycin 250 mg tablet 250 mg PO .COMPLEX COPD 90 days 11/25/21 05/10/22 Unknown Rx #45 tabs revefenacin 175 mcg/3 mL solution 175 mcg (3 mL) inhalation DAILY 30 11/25/21 05/10/22 Unknown Rx for nebulization days #90 mL budesonide 0.5 mg/2 mL suspension 0.5 mg (2 mL) inhalation BID 30 01/06/22 05/10/22 Unknown Rx for nebulization (Pulmicort) days #120 mL formoterol fumarate 20 mcg/2 mL 2 ml inhalation Q12H 30 days #120 01/06/22 05/10/22 Unknown Rx solution for nebulization mL (Perforomist) ropinirole 1 mg tablet 1 mg PO DAILY@2099 30 days #30 tabs 01/06/22 05/10/22 Unknown Rx cyclobenzaprine 5 mg tablet 5 mg PO TID PRN muscle spasm #10 03/28/22 05/10/22 Unknown Rx tabs bupropion HCl 150 mg 24 hr tablet, 150 mg PO QAM #30 tabs 03/31/22 05/10/22 Unknown Rx extended release (Wellbutrin XL) buspirone 5 mg tablet 5 mg PO TID #90 tabs 03/31/22 05/10/22 Unknown Rx citalopram 40 mg tablet 40 mg PO DAILY@829 30 days #30 03/31/22 05/10/22 Unknown Rx tabs hydroxyzine HCl 50 mg tablet 50 mg PO QID PRN anxiety #120 tabs 03/31/22 05/10/22 Unknown Rx albuterol sulfate 90 mcg/actuation 2 puff inhalation 6XD PRN 04/05/22 05/10/22 Unknown Rx aerosol inhaler Shortness Of Breath #6.7 grams aspirin 81 mg tablet,delayed 81 mg PO DAILY@829 30 days #30 04/05/22 05/10/22 Unknown Rx release tabs metoprolol succinate 50 mg 50 mg PO BID@ 30 days #60 04/05/22 05/10/22 Unknown Rx tablet,extended release 24 hr tabs montelukast 10 mg tablet 10 mg PO DAILY@30 #30 tabs 04/05/22 05/10/22 Unknown Rx nitroglycerin 0.4 mg sublingual 0.4 mg sublingual Q5M PRN Chest 04/05/22 05/10/22 Unknown Rx tablet (Nitrostat) Pain 30 days #30 tabs omeprazole 20 mg capsule,delayed 20 mg PO DAILY@30 30 days #30 04/05/22 05/10/22 Unknown Rx release caps atorvastatin 40 mg tablet 30 mg PO DAILY 05/03/22 05/10/22 Unknown History clonidine HCl 0.1 mg tablet 0.1 mg PO BID@08,2099 #180 tabs 05/03/22 05/10/22 Unknown Rx isosorbide mononitrate 60 mg 60 mg PO DAILY@829 30 days #30 05/03/22 05/10/22 Unknown Rx tablet,extended release 24 hr tabs amlodipine 10 mg tablet 10 mg PO DAILY 05/10/22 05/10/22 Unknown History arformoterol 15 mcg/2 mL solution 2 ml inhalation BID #60 mL 05/10/22 Unknown Rx for nebulization (Brovana) levothyroxine 50 mcg tablet 50 mcg PO DAILY 05/10/22 05/10/22 Unknown History Allergies Allergy/AdvReac Type Severity Reaction Status Date / Time lisinopril Allergy Severe anaphylaxis Verified 05/10/22 09:11 Sulfa (Sulfonamide AdvReac Intermediate Itching, Verified 05/10/22 09:11 Antibiotics) burning Current Medications Generic Name Dose Route Start Last Admin Trade Name Freq PRN Reason Stop Dose Admin Hydralazine HCl 10 mg 05/10/22 11:18 05/10/22 13:38 Hydralazine 20 Mg/Ml Inj 1 Ml IVP 10 mg Q4H PRN Administration HYPERTENSION Pantoprazole Sodium 40 mg/ 100 mls @ 20 mls/hr 05/10/22 10:30 05/10/22 15:17 Sodium Chloride IV 8 mg/hr .Q5H APOLONIA 20 mls/hr Administration 8 MG/HR Sodium Chloride 1,000 mls @ 150 mls/hr 05/10/22 10:39 05/10/22 11:30 Sodium Chloride 0.9% IV 150 mls/hr .Q6H40M APOLONIA Infusion Nicardipine/Sodium Chloride 20 mg in 200 mls @ 0 mls/hr 05/10/22 15:00 05/10/22 15:24 Cardene IV 5 mg/hr .Q0M APOLONIA 50 mls/hr Administration Protocol Per Protocol Morphine Sulfate 4 mg 05/10/22 10:39 05/10/22 11:16 Morphine 4 Mg/Ml Sdv 1 Ml IVP 4 mg Q4H PRN Administration SEVERE PAIN PFSH Acute PFSH: Medical History AAA (abdominal aortic aneurysm) 4.1 x 4.4 x 5.7 cm 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 Anemia Atypical chest pain Brain aneurysm Chronic kidney disease CKD stage III, solitary kidney Chronic migraine without aura, intractable, with status migrainosus Congestive heart failure COPD (chronic obstructive pulmonary disease) Depression Endoleak post (EVAR) endovascular aneurysm repair GERD (gastroesophageal reflux disease) History of stent insertion of renal artery Hypercholesteremia Hypertension Hypertensive urgency Resolved Hypothyroidism Inguinal swelling Normal colonoscopy Osteoporosis Peripheral vascular disease Psychiatric care Restless leg Solitary kidney Surgical History H/O: hysterectomy History of renal stent Herculink stent History of repair of aneurysm of abdominal aorta using endovascular stent graft Hx of tonsillectomy S/P appendectomy Family History Mother CAD (coronary artery disease) Chronic kidney disease (CKD) Dementia Stroke Father CAD (coronary artery disease) Cancer Diabetes Brother CAD (coronary artery disease) Cancer Lung disease Grandfather Cancer Grandmother Diabetes Family/Other Lung disease Suicide Other Hypertension Denies family history of Clotting disorder Anesthesia complication Bleeding disorder Social History Smoking and tobacco status: former smoker Quit status (tobacco): has quit using tobacco Year quit tobacco: 2005 - PPD x 35 Years Former quit date comment: Started at age 18 Second hand smoke exposure: No Smoking risk assessment/counseling performed?: No Alcohol intake: never Desire information about alcohol rehabilitation?: No Counseling given: No Desire information about substance/drug rehabilitation?: No Counseling given: No Adopted: No Caregiver/support person: No Lives independently: Yes Household members: family and children Housing: House Marital status: / Marital status details: 2006 Number of children: 12 Number of grandchildren: 4 Highest education level completed: Master's Degree Education level details: Criminal Justice service: No Current occupational status: disabled Current occupational exposures/hazards: No Pets and animals: Yes Pets & animals: cat(s), dog(s) and farm animals Farm Animals: cattle History of recent travel: No Leisure activites: reading and other Leisure activities details: watch TV Sexually active: No Current gender identity: Female Yudy/Taoist: [employer] Special yudy needs: No Agree to transfusion: Yes Financial difficulty paying for basics: Somewhat Hard Female Reproductive History: Date of last menstrual period: 10/21/20 Para: 0 Spontaneous abortions: Yes Vitals/I&O/Wt Last Vital Signs Temp 97.1 F L 05/10/22 06:29 Pulse 92 05/10/22 14:05 Resp 29 H 05/10/22 14:05 BP 133/83 05/10/22 14:05 Pulse Ox 96 05/10/22 14:05 O2 Del Method 05/10/22 11:03 O2 Flow Rate 2 05/10/22 11:03 05/10/22 05/10/22 05/10/22 06:59 14:59 22:59 Intake Total 1428.334 / 1428.334 85.667 / 1514.001 Balance 1428.334 / 1428.334 85.667 / 1514.001 Weight last 48 hrs Weight 120 lb Physical Exam Narrative: General : Patient is well developed , not oriented to time or place Head : Normal cephalic, a-traumatic. Ears : Pinnae and external canal are normal. Hearing is normal. Eyes : PERRLA, Sclera and injection are normal. No conjunctival discharge. Nose : Mucous membranes are without erythema. Throat : buccal mucosa is normal, gums are without significant recession or hypertrophy. Lungs : Equal chest rise bilaterally, no use of accessory muscles, trachea is midline. Cor : Rate and rhythm are normal. Abdomen : Soft, ND, tender to palpation over the epigastrium, no g/r/m Extremities : No edema, no cyanosis or clubbing, dorsalis pedis pulses are present bilaterally, non-tender to palpation of calves. Upper extremities are normal bilaterally. Back : non-tender to palpation, no CVA tenderness. Neuro : CN II - XII intact, Upper and lower extremities have equal and full strength Urinary Catheter Management: Martins Latex Free: Cath Placed During This Visit: yes Urinary Catheter Date of Insertion: 05/10/22 Urinary Catheter Time of Insertion: 09:29 Data : 05/10/22 10:50 05/10/22 07:00 Micro: Microbiology 05/10/22 07:47 Blood Culture - Preliminary Blood SPECIMEN COLLECTED 05/10/22 07:00 Blood Culture - Preliminary Blood SPECIMEN COLLECTED A&P Assessment and plan (1) Acute upper GI bleed: (2) Pancreatitis: Plan IV fluids Protonix N.p.o. EGD Colonoscopy The risks and benefits of the procedure, including bleeding, infection, intestinal perforation requiring surgery, missed lesion, or explained to the patient. He is understanding of the risks and wishes to proceed. Is highly possible that she is having pancreatitis secondary to peptic ulcer disease or even GI bleeding secondary to the pancreatitis. 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
[2022-05-10 15:36] LABS: Basophils # 0.1 10^3/uL (0.0-0.1); Basophils % 0.2 %; Hematocrit 36.5 % (37.0-47.0); Hemoglobin 11.6 g/dL (11.5-15.3); Lymphocytes # 2.3 10^3/uL (0.8-4.8); Lymphocytes % 9.2 %; Mean Corpuscular HGB Conc 31.8 g/dL (30.0-36.0); Mean Corpuscular Hemoglobin 27.8 pg (28.0-34.0); Mean Corpuscular Volume 87.3 fl (81-99); Mean Platelet Volume 11.5 fL (7.4-10.4); Monocytes # 1.3 10^3/uL (0.2-0.9); Neutrophils # 21.19 10^3/uL (1.8-7.7); Neutrophils % 84.8 %; Nucleated Red Blood Cells % 0 %; Platelet Count 98 10^3/cmm (130-400); Red Blood Count 4.18 10^6/uL (4.1-5.3); Red Cell Distribution Width 14.7 % (12.1-15.1)
[2022-05-10 15:57] LABS: Blood Urea Nitrogen 80 mg/dL (8-23); Carbon Dioxide 16 mmol/L (22-29); Chloride 100 mmol/L (98-107); Glomerular Filtration Rate 14.1 mL/min (90-130); Glucose 124 mg/dL (65-115); Osmolality Calculated 289 mOsm/kg (285-295); Sodium 127 mmol/L (136-145)
[2022-05-10 15:59] LABS: Anion Gap 15.7 (5-19); Potassium 4.7 mmol/L (3.5-5.1)
--- NOTE | 2022-05-10 16:23 | XRR_ITS ---
PROCEDURE INFORMATION: Exam: XR Chest Exam date and time: 05/10/2022 4:37 PM Age: 66 years old Clinical indication: Device placement; Other: Central line placement TECHNIQUE: Imaging protocol: Radiologic exam of the chest. Views: 1 view. COMPARISON: CR XR chest 1V portable [id number] 05/10/2022 7:11 AM XR/XR chest 1V portable [id number] IMPRESSION: A right IJ central venous catheter has been placed and terminates in the SVC. Faint medial right apical opacity has developed, which may be atelectasis. No pneumothorax is visualized. No other significant change.
[2022-05-10] MEDS: midazolam 1 mg/mL INJ 2 mL 2 MG IVP (16:27)
[2022-05-10] MEDS: fentaNYL 50 mcg/mL INJ 2mL IVP (16:27)
--- NOTE | 2022-05-10 16:39 | PM.ACPR ---
Procedure/Consent Time out: Time Out Performed: Yes Consent: Additional Consent Information: Obtained from daughter, and son. Nurse witnessed. Procedure Narrative: Preoperative diagnosis: Need for frequent blood draws, central access secondary to severity of illness Postoperative diagnosis same Estimated blood loss minimal, less than 5 cc Procedure: Right IJ line placement Anesthesia: Local with lidocaine as well as a dose of Versed and fentanyl Description of procedure. After informed consent was obtained from the family including bleeding, infection, need for further procedures, pneumothorax, area was prepped and draped in a sterile fashion. Ultrasound was used to identify the right internal jugular, which appeared appropriate for central venous catheter insertion. 2 cc of 1% lidocaine was used for local anesthesia, and 1 mg of Versed and 25 mcg of fentanyl were given. Internal jugular was identified, and using Seldinger technique wire was placed, jt with scalpel was made at wire, dilator placed, then central line inserted which had already been flushed. This was then sutured and x-ray was called for. X-rays pending at time of dictation. Complications: None evident. Postoperative x-rays pending Acute Procedures Epistaxis Control: Time out performed: Yes
--- NOTE | 2022-05-10 17:15 | P.CONIM_ITS ---
Providers/Reason For Consult Consulting Physician/Specialty*: carine aaron nd / telenephrology Reason for Consult*: SARAH on CKD Requesting Physician: DR Porras Attending Physician: Eyal Porras MD Primary Care Provider: HERBERT Masters History of Present Illness History of Present Illness Hali James is a 66 year old female admitted this morning w/ GI bleed, AMS, found down, and htn. H/O Endovascular AAA repair in 2019 w/ a nephrectomy. 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 She has CKD. Baseline cr shwetha from 1.2 in spring 2021 to 1.5 mg/dl in Mar 2022, to 1.7 mg/dl in May 01 to 2.8 this am on admission and now 3.3 mg/dl. Renal is called for HTN, AMS, and SARAH. Review of Systems Narrative: AMS, abd pain, found down w/ GI bleed, weak. rest of ROS is limited due to poor MS Medications/Allergies Home Medications Medication Instructions Recorded Confirmed Last Taken Type fluticasone propionate 50 2 spray intranasal DAILY PRN Nasal 02/21/20 05/10/22 12/10/20 History mcg/actuation nasal Congestion spray,suspension (Flonase Allergy Relief) albuterol sulfate 2.5 mg/3 mL 2.5 mg (3 mL) inhalation QID PRN 05/15/20 05/10/22 12/10/20 Rx (0.083 %) solution for nebulization Shortness Of Breath 30 days #75 mL epinephrine 0.3 mg/0.3 mL 0.3 mg IM Q10M PRN Allergic 10/16/20 05/10/22 Unknown History injection, auto-injector Reaction bumetanide 1 mg tablet 1 mg PO DAILY 06/13/21 05/10/22 Unknown History azithromycin 250 mg tablet 250 mg PO .COMPLEX COPD 90 days 11/25/21 05/10/22 Unknown Rx #45 tabs revefenacin 175 mcg/3 mL solution 175 mcg (3 mL) inhalation DAILY 30 11/25/21 05/10/22 Unknown Rx for nebulization days #90 mL budesonide 0.5 mg/2 mL suspension 0.5 mg (2 mL) inhalation BID 30 01/06/22 05/10/22 Unknown Rx for nebulization (Pulmicort) days #120 mL formoterol fumarate 20 mcg/2 mL 2 ml inhalation Q12H 30 days #120 01/06/22 05/10/22 Unknown Rx solution for nebulization mL (Perforomist) ropinirole 1 mg tablet 1 mg PO DAILY@2100 30 days #30 tabs 01/06/22 05/10/22 Unknown Rx cyclobenzaprine 5 mg tablet 5 mg PO TID PRN muscle spasm #10 03/28/22 05/10/22 Unknown Rx tabs bupropion HCl 150 mg 24 hr tablet, 150 mg PO QAM #30 tabs 03/31/22 05/10/22 Unknown Rx extended release (Wellbutrin XL) buspirone 5 mg tablet 5 mg PO TID #90 tabs 03/31/22 05/10/22 Unknown Rx citalopram 40 mg tablet 40 mg PO DAILY@0830 30 days #30 03/31/22 05/10/22 Unknown Rx tabs hydroxyzine HCl 50 mg tablet 50 mg PO QID PRN anxiety #120 tabs 03/31/22 05/10/22 Unknown Rx albuterol sulfate 90 mcg/actuation 2 puff inhalation 6XD PRN 04/05/22 05/10/22 Unknown Rx aerosol inhaler Shortness Of Breath #6.7 grams aspirin 81 mg tablet,delayed 81 mg PO DAILY@0830 30 days #30 04/05/22 05/10/22 Unknown Rx release tabs metoprolol succinate 50 mg 50 mg PO BID@0830,2099 30 days #60 04/05/22 05/10/22 Unknown Rx tablet,extended release 24 hr tabs montelukast 10 mg tablet 10 mg PO DAILY@0830 #30 tabs 04/05/22 05/10/22 Unknown Rx nitroglycerin 0.4 mg sublingual 0.4 mg sublingual Q5M PRN Chest 04/05/22 05/10/22 Unknown Rx tablet (Nitrostat) Pain 30 days #30 tabs omeprazole 20 mg capsule,delayed 20 mg PO DAILY@0830 30 days #30 04/05/22 05/10/22 Unknown Rx release caps atorvastatin 40 mg tablet 30 mg PO DAILY 05/03/22 05/10/22 Unknown History clonidine HCl 0.1 mg tablet 0.1 mg PO BID@0830,2100 #180 tabs 05/03/22 05/10/22 Unknown Rx isosorbide mononitrate 60 mg 60 mg PO DAILY@0830 30 days #30 05/03/22 05/10/22 Unknown Rx tablet,extended release 24 hr tabs amlodipine 10 mg tablet 10 mg PO DAILY 05/10/22 05/10/22 Unknown History arformoterol 15 mcg/2 mL solution 2 ml inhalation BID #60 mL 05/10/22 Unknown Rx for nebulization (Brovana) levothyroxine 50 mcg tablet 50 mcg PO DAILY 05/10/22 05/10/22 Unknown History Allergies Allergy/AdvReac Type Severity Reaction Status Date / Time lisinopril Allergy Severe anaphylaxis Verified 05/10/22 09:11 Sulfa (Sulfonamide AdvReac Intermediate Itching, Verified 05/10/22 09:11 Antibiotics) burning Current Medications Generic Name Dose Route Start Last Admin Trade Name Freq PRN Reason Stop Dose Admin Hydralazine HCl 10 mg 05/10/22 11:18 05/10/22 13:38 Hydralazine 20 Mg/Ml Inj 1 Ml IVP 10 mg Q4H PRN Administration HYPERTENSION Pantoprazole Sodium 40 mg/ 100 mls @ 20 mls/hr 05/10/22 10:30 05/10/22 15:17 Sodium Chloride IV 8 mg/hr .Q5H APOLONIA 20 mls/hr Administration 8 MG/HR Sodium Chloride 1,000 mls @ 100 mls/hr 05/10/22 10:39 05/10/22 11:30 Sodium Chloride 0.9% IV 150 mls/hr .Q10H APOLONIA Infusion Nicardipine/Sodium Chloride 20 mg in 200 mls @ 0 mls/hr 05/10/22 15:00 05/10/22 15:24 Cardene IV 5 mg/hr .Q0M APOLONIA 50 mls/hr Administration Protocol Per Protocol PFSH Acute PFSH: Medical History AAA (abdominal aortic aneurysm) 4.1 x 4.4 x 5.7 cm 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 Anemia Atypical chest pain Brain aneurysm Chronic kidney disease CKD stage III, solitary kidney Chronic migraine without aura, intractable, with status migrainosus Congestive heart failure COPD (chronic obstructive pulmonary disease) Depression Endoleak post (EVAR) endovascular aneurysm repair GERD (gastroesophageal reflux disease) History of stent insertion of renal artery Hypercholesteremia Hypertension Hypertensive urgency Resolved Hypothyroidism Inguinal swelling Normal colonoscopy Osteoporosis Peripheral vascular disease Psychiatric care Restless leg Solitary kidney Surgical History H/O: hysterectomy History of renal stent Herculink stent History of repair of aneurysm of abdominal aorta using endovascular stent graft Hx of tonsillectomy S/P appendectomy Family History Mother CAD (coronary artery disease) Chronic kidney disease (CKD) Dementia Stroke Father CAD (coronary artery disease) Cancer Diabetes Brother CAD (coronary artery disease) Cancer Lung disease Grandfather Cancer Grandmother Diabetes Family/Other Lung disease Suicide Other Hypertension Denies family history of Clotting disorder Anesthesia complication Bleeding disorder Social History Smoking and tobacco status: former smoker Quit status (tobacco): has quit using tobacco Year quit tobacco: 2005 PPD x 35 Years Former quit date comment: Started at age 18 Second hand smoke exposure: No Smoking risk assessment/counseling performed?: No Alcohol intake: never Desire information about alcohol rehabilitation?: No Counseling given: No Desire information about substance/drug rehabilitation?: No Counseling given: No Adopted: No Caregiver/support person: No Lives independently: Yes Household members: family and children Housing: House Marital status: / Marital status details: 2005 Number of children: 12 Number of grandchildren: 4 Highest education level completed: Master's Degree Education level details: Criminal Justice service: No Current occupational status: disabled Current occupational exposures/hazards: No Pets and animals: Yes Pets & animals: cat(s), dog(s) and farm animals Farm Animals: cattle History of recent travel: No Leisure activites: reading and other Leisure activities details: watch TV Sexually active: No Current gender identity: Female Yudy/Yazdanism: [employer] Special yudy needs: No Agree to transfusion: Yes Financial difficulty paying for basics: Somewhat Hard Female Reproductive History: Date of last menstrual period: 10/21/20 Para: 0 Spontaneous abortions: Yes Vitals/I&O/Wt Last Vital Signs Temp 97.1 F L 05/10/22 06:29 Pulse 90 05/10/22 16:35 Resp 20 H 05/10/22 16:35 BP 125/70 05/10/22 16:35 Pulse Ox 94 05/10/22 16:35 O2 Del Method 05/10/22 11:03 O2 Flow Rate 2 05/10/22 11:03 05/10/22 05/10/22 05/10/22 06:59 14:59 22:59 Intake Total 1428.334 / 1428.334 85.667 / 1514.001 Balance 1428.334 / 1428.334 85.667 / 1514.001 Weight last 48 hrs Weight 54.431 kg Physical Exam Narrative: NARD in bed in ICU vs noted- on cardene drip heent- nc/at, eomi neck -supple lungs clear heart reg\abd soft, nt, nd, + bs ext no edema neuro- lethargic and confused Urinary Catheter Management: Martins Latex Free: Cath Placed During This Visit: yes Urinary Catheter Date of Insertion: 05/10/22 Urinary Catheter Time of Insertion: 09:29 Data : 05/10/22 15:30 05/10/22 15:30 Micro: Microbiology 05/10/22 07:47 Blood Culture - Preliminary Blood SPECIMEN COLLECTED 05/10/22 07:00 Blood Culture - Preliminary Blood SPECIMEN COLLECTED A&P Assessment and plan (1) Acute kidney injury: Plan 66 yr old female w/ AMS, h/o nephrectomy, htn, COPD, CAD, AAA repair, hypothyroidism. Pt here w/ AMS, HTN, and SARAH 1. SARAH-concern for ATN check ua and ur na, pr, cr -renal us s/p left nephrectomy. normal 9 cm rt kidney -send serologies -check ck -monitro uop, chemistreis -if MS does not improve, consider dialysis soon 2. CKD- baseline cr has been rising over last 6 months from 1.2- 1.7 mg/dl- can be from nephrectomy of atrophic kidney and htn 3. hyponatremia - check ur na. serum na shwetha from 124 to 127 tsh 4.5- not cause of hyponatremia -high bp - even w/ steroid hx. atypical for adrenal insufficiency 4. htn- well controlled on cardene drip Q PRES syndrome- agree w/ BP control 5. leukocytosis and Q of pancreatitis- ivf per medicine 6. Non AGMA 7. check ammonia level seen and examined w/ rN- telehealth visit time spent 50+ min Consult Attestations Medical Necessity Statement: sarah, htn, infection, ams Time Spent in Patient Care: Greater than 35 minutes (>than 50% of time spent in counselling and/or direct pt care on unit) . 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
--- NOTE | 2022-05-10 17:46 | USCV_ITS ---
Hali James Age: 66 Gender: F : 1955 Exam Date: 05/10/2022 19:14 Ordering Phys: Yemi Ramos MD Technologist: RANDEE Exam Location: [facility] [place] Indication: HTN urgency. Patient is unresponsive in ICU-10 BP: 112 / 60 HR: 90 Rhythm: Sinus Technical Quality: Adequate MEASUREMENTS (Male / Female) Normal Values 2D ECHO LV Diastolic Diameter PLAX 3.0 cm 4.2 - 5.9 / 3.9 - 5.3 cm LV Systolic Diameter PLAX 2.0 cm IVS Diastolic Thickness 1.1 cm 0.6 - 1.0 / 0.6 - 0.9 cm IVS Systolic Thickness 1.3 cm LVPW Diastolic Thickness 1.2 cm 0.6 - 1.0 / 0.6 - 0.9 cm LVPW Systolic Thickness 1.5 cm LVOT Diameter 1.9 cm LV Ejection Fraction 2D Teich 62.0 % LV Ejection Fraction MOD 2C 58.8 % LV Ejection Fraction 2C AL 63.2 % LA Diameter 2.7 cm LA Width 3.0 cm LA Height 4.0 cm RA Width 2.7 cm RA Height 3.4 cm Aorta at Sinotubular Diameter 2.7 cm M-MODE Aortic Annulus Diameter 2.3 cm LA Ao Ratio MM 1.2 MV E Point Septal Separation 0.3 cm DOPPLER AV Peak Velocity 118.0 cm/s LVOT Peak Velocity 89.0 cm/s AV Area Cont Eq vti 2.5 cm squared AV Area Cont Eq pk 2.2 cm squared MV Peak Velocity 80.0 cm/s MV Area PHT 4.9 cm squared Mitral E to A Ratio 0.8 MV E' Velocity 25.0 cm/s Mitral E to MV E' Ratio 4.3 Mitral E to LV E' Lateral Ratio 4.6 Mitral E to LV E' Septal Ratio 4.1 TR Peak Velocity 271.0 cm/s TR Peak Gradient 29.4 mmHg TV Peak E Velocity 51.0 cm/s Right Atrial Pressure 5.0 mmHg Pulmonary Artery Systolic Pressu 34.4 mmHg PV Peak Velocity 103.0 cm/s FINDINGS Left Ventricle Normal left ventricular size and systolic function, EF 59 %. Mild left ventricular hypertrophy.no regional wall motion abnormalities. Right Ventricle The right ventricle is normal in size and function. Right Atrium The right atrium is normal in size. Left Atrium The left atrium is normal in size. Mitral Valve Thickened mitral valve. Aortic Valve Thickened aortic valve. Tricuspid Valve Trace to mild tricuspid valve regurgitation. Pulmonic Valve Pulmonic valve not well visualized. Pericardium Normal pericardium without effusion. Aorta Normal ascending aorta dimension. IVC Inferior vena cava not visualized. CONCLUSIONS Normal left ventricular size and systolic function, EF 59 %. Mild left ventricular hypertrophy.no regional wall motion abnormalities. Thickened aortic and mitral valves. Trace to mild tricuspid valve regurgitation. Estimated pulmonary artery peak systolic pressure of 34 mmHg There is no pericardial effusion. There are no intracardiac masses. Compared to the previous study from 08/19/2020 there is resolution of pericardial effusion. Dr Guillermo Culver MD FAC (Electronically Signed) Final Date: 11 May 2022 10:09 S
[2022-05-10] MEDS: lactated ringers 1,000 ML 100 ML IV (17:47)
--- NOTE | 2022-05-10 17:54 | PC.NURSE ---
Patient arrived from ER at 1030 this morning. Upon arrival patient was able to tell staff she was in [facility] and mentation was decent. During the shift patients mentation declined and is unable to communicate effectively with staff at this time. Dr. Porras, Dr. Petit, and Dr. Ferreira all consulted on patient due to possible GI bleed, and worsening kidney function via labs. Dr. Porras placed a right IJ central line and verified placement via xray. Patient may need possible dialysis. Patient also started on Cardene gtt to maintain SBP <140 for possible PRES due to hypertension. Family gave consent for procedures and is very involved with patients care.
[2022-05-10 20:54] LABS: Basophils # 0.1 10^3/uL (0.0-0.1); Basophils % 0.2 %; Hematocrit 31.1 % (37.0-47.0); Lymphocytes # 1.6 10^3/uL (0.8-4.8); Lymphocytes % 7.2 %; Mean Corpuscular HGB Conc 32.2 g/dL (30.0-36.0); Mean Corpuscular Hemoglobin 27.7 pg (28.0-34.0); Mean Corpuscular Volume 86.1 fl (81-99); Mean Platelet Volume 10.4 fL (7.4-10.4); Monocytes % 4.5 %; Neutrophils # 19.82 10^3/uL (1.8-7.7); Neutrophils % 87.2 %; Nucleated Red Blood Cells % 0 %; Platelet Count 80 10^3/cmm (130-400); Red Blood Count 3.61 10^6/uL (4.1-5.3); White Blood Count 22.7 10^3/uL (4.0-10.0)
[2022-05-10 21:19] LABS: Ammonia 21 umol/L (11-51)
[2022-05-10 21:23] LABS: Creatine Phosphokinase 118 U/L (26-192); Uric Acid 7.2 mg/dL (2.4-5.7)
[2022-05-10 21:24] LABS: Calcium 7.9 mg/dL (8.5-10.5); Carbon Dioxide 17 mmol/L (22-29); Chloride 107 mmol/L (98-107); Glomerular Filtration Rate 12.7 mL/min (90-130); Glucose 101 mg/dL (65-115); Osmolality Calculated 305 mOsm/kg (285-295); Sodium 135 mmol/L (136-145)
[2022-05-10 21:30] LABS: Hepatitis B Surface Antigen Non-Reactive (Nonreactive); Hepatitis C Virus Antibody Non-Reactive (Nonreactive)
[2022-05-10] MEDS: budesonide 0.5 mg/2 mL Neb INHALATION (21:42)
[2022-05-10] MEDS: ipratropium-albuterol 3 mL Neb INHALATION (21:42)
[2022-05-10 21:48] LABS: Blood Urea Nitrogen 82 mg/dL (8-23)
--- NOTE | 2022-05-10 22:05 | PC.NURSE ---
Pt appears generally unwell. Pt is calling out for mamma repeatedly. Bowl sounds are hypoactive. Abdomen is tender, distended, and firm in places.
[2022-05-10] MEDS: haloperidol inj 5 mg/mL INJ 1 mL 1 MG IM (22:38)
--- NOTE | 2022-05-10 22:44 | PC.NURSE ---
Communication w/ Dr. Padilla. Expressed pt severe pain, pt calling out and crying, New order for a ONCE 1mg Haloperidol NOW. Update on pt condition, changes in mentation, BG 109, hypoactive bowl sounds, distended and tender abdomen.
[2022-05-11] VITALS (93 sets, daily range): BP systolic 92–161; BP diastolic 64–138; PULSE 94–137; RESP 13–22; TEMP 36.7–37.8; O2SAT 89–100
[2022-05-11] MEDS: pantoprazole 40 MG in sodium chloride 0.9% (plus) 100 ML 20 MG IV ×2 (01:30→06:30)
[2022-05-11] MEDS: ipratropium-albuterol 3 mL Neb INHALATION ×4 (02:17→20:09)
[2022-05-11] MEDS: morphine 4 mg/mL SDV 1 mL 2 MG IVP ×2 (02:33→05:48)
[2022-05-11] MEDS: lactated ringers 1,000 ML 100 ML IV (04:18)
[2022-05-11 05:15] LABS: Basophils # 0.1 10^3/uL (0.0-0.1); Basophils % 0.2 %; Hematocrit 31.1 % (37.0-47.0); Hemoglobin 9.7 g/dL (11.5-15.3); Lymphocytes # 0.6 10^3/uL (0.8-4.8); Mean Corpuscular HGB Conc 31.2 g/dL (30.0-36.0); Mean Corpuscular Hemoglobin 27.2 pg (28.0-34.0); Mean Corpuscular Volume 87.4 fl (81-99); Mean Platelet Volume 11.3 fL (7.4-10.4); Monocytes # 0.6 10^3/uL (0.2-0.9); Monocytes % 1.9 %; Neutrophils # 27.38 10^3/uL (1.8-7.7); Nucleated Red Blood Cells % 0 %; Platelet Count 79 10^3/cmm (130-400); Red Blood Count 3.56 10^6/uL (4.1-5.3); Red Cell Distribution Width 15.3 % (12.1-15.1); White Blood Count 28.8 10^3/uL (4.0-10.0)
[2022-05-11 05:22] LABS: Alanine Aminotransferase 63 U/L (0-33); Albumin Level 2.1 g/dL (3.5-5.2); Alkaline Phosphatase 87 U/L (35-105); Anion Gap 18.3 (5-19); Aspartate Amino Transferase 101 U/L (0-32); Calcium 8.2 mg/dL (8.5-10.5); Carbon Dioxide 16 mmol/L (22-29); Chloride 105 mmol/L (98-107); Creatine Phosphokinase 160 U/L (26-192); Globulin 2.3 g/dL (1.3-4.6); Glucose 99 mg/dL (65-115); Magnesium 1.8 mg/dL (1.7-2.3); Osmolality Calculated 302 mOsm/kg (285-295); Phosphorus 5.1 mg/dL (2.5-4.5); Potassium 5.3 mmol/L (3.5-5.1); Sodium 134 mmol/L (136-145); Total Bilirubin 0.3 mg/dL (0.15-1.2); Total Protein 4.4 g/dL (6.6-8.7)
[2022-05-11 05:27] LABS: Calcium 8.2 mg/dL (8.5-10.5)
[2022-05-11 05:32] LABS: Parathyroid Hormone 132.2 pg/mL (15-65)
[2022-05-11 06:06] LABS: Blood Urea Nitrogen 81 mg/dL (8-23)
[2022-05-11 06:07] LABS: 25 Hydroxy Vitamin D 24 ng/mL (30-100)
[2022-05-11 06:22] LABS: Ammonia 22 umol/L (11-51)
--- NOTE | 2022-05-11 07:40 | CT_ITS ---
WS: [id number] CT ABDOMEN PELVIS TECHNIQUE: Contrast-enhanced CT of the abdomen and pelvis with coronal and sagittal reformatted image s. CLINICAL INFORMATION: abdominal pain COMPARISON: CT 05/10/2022 and 11/05/2021 DLP: 306.[address] scans at [facility] use at least one of these dose optimization techniques: automated e xposure control; mA and/or kV adjustment per patient size (includes targeted exams where dose is matc hed to clinical indication); or iterative reconstruction. FINDINGS: Prior aortic endograft placement with biiliac extension. Excluded aneurysm sac appears stable since A pril 2021. Occluded stent RIGHT renal artery origin with no significant flow of the RIGHT renal a rtery. Markedly decreased perfusion RIGHT kidney with a small wedge-shaped area of residual perfusion . No hydronephrosis. Marked atrophy LEFT kidney is unchanged with LEFT renal cysts. Renal vein appear s patent. Slight bibasilar atelectasis. Trace LEFT pleural fluid. Normal liver. Normal portal vein and splenic vein. Additional wedge-shaped area of low-attenuation in the spleen suspicious for infarct with dense splenic artery calcification. Celiac and SMA origins appear patent. Stable findings of acute pancreatitis. Mild pancreatic edema. No drainable fluid collections.Hydropic gallbladder with gallbladder wall thickening and pericholecystic fluid. No visualized cholelithiasis . Normal GE junction. Gastric wall enhancement consistent with gastritis. Duodenitis. Small amount of free fluid in the pelvis. Diffuse body wall anasarca. Martins catheter. Grade 1 anterol isthesis L5 on S1. Mild compression superior endplate L3 unchanged. CT/CT abdomen pelvis w con* [id number] IMPRESSION: 1. Markedly decreased perfusion RIGHT kidney consistent with ischemia. Only a small residual area of residual perfusion. No significant flow visualized in th e RIGHT main renal artery. Occluded short segment stent RIGHT renal artery orig in. Small amount of residual collateral flow RIGHT kidney. 2. Wedge-shaped low-attenuation change in the spleen suspicious for splenic in farct. Small amount of fluid about the spleen. 3. Celiac and SMA origins remain patent. 4. Stable appearing aortic endograft with biiliac extension. Excluded aneurysm sac appears stable. Excluded aneurysm sac measures 3.0 x 3.4 CM. AP by transve rse 5. Stable findings of acute pancreatitis with gastritis and duodenitis. 6. Hydropic gallbladder with mild gallbladder wall thickening and a small amou nt of pericholecystic fluid. No cholelithiasis. This may be reactive in relatio n to the pancreatitis. 7. Small amount of free fluid in the pelvis. Martins catheter. 8. Grade 1 anterolisthesis L5 on S1. Notified Eyal Porras MD at 05/11/2022 8:54 AM.
[2022-05-11 07:48] LABS: Glucose Point of Care 110 mg/dL (70-110)
[2022-05-11 07:48] LABS: Glucose Point of Care 113 mg/dL (70-110)
[2022-05-11 07:48] LABS: Glucose Point of Care 97 mg/dL (70-110)
[2022-05-11 07:48] LABS: Glucose Point of Care 112 mg/dL (70-110)
[2022-05-11 07:48] LABS: Glucose Point of Care 103 mg/dL (70-110)
[2022-05-11 07:56] LABS: Lipase 26 U/L (13-60)
[2022-05-11 07:57] LABS: Glucose Point of Care 172 mg/dL (70-110)
[2022-05-11 07:57] LABS: Glucose Point of Care 148 mg/dL (70-110)
[2022-05-11 07:57] LABS: Glucose Point of Care 181 mg/dL (70-110)
--- NOTE | 2022-05-11 08:12 | PM.PN ---
Subjective Subjective: confused, lethargic, abd pain in bed. limited ROS due to poor MS Medications: Reviewed: Yes Medication Review Details: Current Medications Albuterol/Ipratropium (Ipratropium-Albuterol 3 Ml Neb) 3 ml INHALATION Q6H.RESP APOLONIA Last Admin: 05/11/22 02:17 Dose: 3 ml Budesonide (Budesonide 0.5 Mg/2 Ml Neb) 0.5 mg INHALATION BID.RESPIRATORY APOLONIA Hydralazine HCl (Hydralazine 20 Mg/Ml Inj 1 Ml) 10 mg IVP Q4H PRN PRN Reason: HYPERTENSION Last Admin: 05/10/22 13:38 Dose: 10 mg Piperacillin Sod/Tazobactam (Sod 3.375 gm/ Sodium Chloride) 50 mls @ 12.5 mls/hr IV Q12H APOLONIA; Protocol Last Titration: 05/11/22 00:58 Dose: Infused Nicardipine/Sodium Chloride (Cardene) 20 mg in 200 mls @ 0 mls/hr IV .Q0M APOLONIA; Protocol Last Titration: 05/11/22 03:24 Dose: 1.5 mg/hr, 15 mls/hr Lactated Ringer's (Lactated Ringers) 1,000 mls @ 50 mls/hr IV .Q20H APOLONIA Last Admin: 05/11/22 04:18 Dose: 100 mls/hr Vancomycin HCl 750 mg/ Sodium (Chloride) 250 mls @ 250 mls/hr IV Q48H APOLONIA; Protocol Levothyroxine Sodium (Levothyroxine 50 Mcg Tablet) 50 mcg PO DAILY APOLONIA Methylprednisolone Sodium Succinate (Methylprednisolone Sod Succ 40 Mg/Ml Inj) 20 mg IVP Q12H APOLONIA Last Admin: 05/10/22 20:17 Dose: 20 mg Morphine Sulfate (Morphine 4 Mg/Ml Sdv 1 Ml) 2 mg IVP Q2H PRN PRN Reason: SEVERE PAIN Last Admin: 05/11/22 05:48 Dose: 2 mg Ondansetron HCl (Ondansetron 2 Mg/Ml Sdv 2 Ml) 4 mg IVP Q6H PRN PRN Reason: NAUSEA AND VOMITING Last Admin: 05/10/22 20:09 Dose: 4 mg Pantoprazole Sodium (Pantoprazole 40 Mg Sdv) 40 mg IVP Q12H [facility] Vitals/I&O/Wt Last Vital Signs Temp 99.2 F 11/01/22 03:15 Pulse 112 H 05/11/22 07:00 Resp 16 05/11/22 07:00 BP 126/77 05/11/22 07:00 Pulse Ox 94 05/11/22 07:00 O2 Del Method 05/11/22 02:00 O2 Flow Rate 1 05/11/22 02:00 05/10/22 05/11/22 05/11/22 22:59 06:59 14:59 Intake Total 1318.900 / 2747.234 1353.833 / 4101.067 Output Total 0 / 0 Balance 1318.900 / 2747.234 1353.833 / 4101.067 Weight last 48 hrs Weight 52.163 kg Weight 54.431 kg Physical Exam Narrative: uncomfortable in bed in ICU vs noted- tachycardic. on cardene drip heent- nc/at, eomi neck -supple lungs crackles b/l heart tachy, reg abd tender, nd, poor bs ext 1+ edema neuro- lethargic and confused Urinary Catheter Management: Martins Latex Free: Cath Placed During This Visit: yes Reason for Continuing Indwelling Catheter: Accurate Measurement of Urinary Output in Critically Ill Patients Urinary Catheter Date of Insertion: 05/10/22 Urinary Catheter Time of Insertion: 09:29 Data : 05/11/22 03:35 05/11/22 03:35 Micro: Microbiology 05/10/22 07:47 Blood Culture - Preliminary Blood NEGATIVE TO DATE 05/10/22 07:00 Blood Culture - Preliminary Blood NEGATIVE TO DATE A&P Assessment and plan (1) Acute kidney injury: see below Plan 66 yr old female w/ AMS, h/o nephrectomy, htn, COPD, CAD, AAA repair, hypothyroidism. Pt here w/ AMS, HTN, and SARAH 1. SARAH-concern for ATN check ua and ur na, pr, cr -renal us s/p left nephrectomy. normal 9 cm rt kidney -send serologies -normal ck -monitro uop, chemistreis -as AMS, acidotic, hyperkalemic, and anuric- will initiate HD- 2 hr, 2k, no fluid removal -hep serologies neg 1b. pH 7.34- met acidosis and resp compensation 2. CKD- baseline cr has been rising over last 6 months from 1.2- 1.7 mg/dl- can be from nephrectomy of atrophic kidney and htn 3. hyponatremia - normalizing w/ IVF tsh 4.5- not cause of hyponatremia -high bp - even w/ steroid hx. atypical for adrenal insufficiency 4. htn- well controlled on cardene drip Q PRES syndrome- agree w/ BP control 5. leukocytosis and Q of pancreatitis- abx per medicine -as tender abd- and starting HD. can get contrast CT scan if surgery feels it will make a difference in his care. 6. normal ammonia level 7. anemia from Illness seen and examined w/ rN- telehealth visit time spent 30 min Attestations Medical Necessity Statement*: sraah, sepsis, Time Spent in Patient Care: 16 - 35 minutes (>than 50% of time spent in counselling and/or direct pt care on unit). Coding Level of Care Code Acute Buffing Line Set Up Worker for Leann Crowley Diagnoses Acute kidney injury N17.9
[2022-05-11] MEDS: iohexol 350 mg/mL 500 mL Btl (per mL) IV (08:16)
[2022-05-11] MEDS: budesonide 0.5 mg/2 mL Neb INHALATION ×2 (08:53→20:09)
[2022-05-11 09:10] LABS: Glucose Point of Care 101 mg/dL (70-110)
[2022-05-11] MEDS: nicardipine 20 MG/200 ML PREMIX 15 MG IV (09:11)
[2022-05-11] MEDS: piperacillin-tazobactam 3.375 GM in sodium chloride 0.9% (plus) 50 ML IV ×2 (09:17→21:17)
[2022-05-11] MEDS: pantoprazole 40 mg SDV IVP ×2 (09:18→21:19)
--- NOTE | 2022-05-11 09:38 | PC.CHAP ---
Pastoral Care Encounter/Spiritual Assessment Type of Contact [] Declined manufacturing automation engineer visit [] Patient/Family/Request visit [] Outpatient visit [] Follow-up visit [] Physician referral [] Code/Alert [x] Routine visit [] Staff referral [] Actively dying [] Patient sleeping [x] Family support [] [] Out of room [] Palliative care [] [] Receiving care in room [] Pre-surgical visit [] Trauma [] Long length of stay [x] ICU visit [x] Other: tests today.... Relational/Emotional Strength [] Patient feels connected with others/family/visitors/staff [] Distress [] Loneliness/isolation [] Abandonment Spirituality of Patient [] Person of Yudy [] Attends Zoroastrian of their Yudy [] Believes in Prayer [] Reads Bible or Pentecostal materials [] There are Spiritual issues to be addressed Coordinator Of Rehabilitation Services Interventions [x] Prayer [] Active listening [] Non-anxious presence [] Spiritual/emotional support [] Crisis/trauma care [] Spiritual counseling [] Bereavement support [] Provided bereavement packet [] Provided Bible/devotional materials [] Provided toy/stuffed animal, coloring book to patient or family member [] Provided Communion [] Anointing/Guthrie [] Salvation [x] Completed spiritual assessment [] Other: Impact on Illness or Injury [] Angry [] Fearful [] Anxious [] Often cries [] Exhaustion [] Unable to work [] Unable to attend druze [] Unable to walk/stand [] Unable to read [] Unable to drive [] Unable to eat/drink [] Unable to sleep [] Unable to be with family [] Patient intubated [] Other: Summary Time spent with patient
--- NOTE | 2022-05-11 10:00 | P.ANESASSM_ITS ---
Pre-Anesthetic Assessment Height/Weight: Height 1.63 m Weight 52.163 kg Temp Pulse Resp BP Pulse Ox O2 Del Method O2 Flow Rate 99.2 F 106 H 15 129/76 95 2 05/11/22 03:15 05/11/22 09:30 05/11/22 09:30 05/11/22 09:30 05/11/22 09:30 05/11/22 09:30 05/11/22 09:30 Preop Diagnosis: anemia Operation Date: 05/11/22 11:30 Proposed Procedures p EGD(Not Applicable) - Ward Petit DO Familial anesthetic complications: None Social No alcohol and No tobacco Exam alert (Drowsy) and regular rate & rhythm (Tachycardia) Airway Submandibular: Other (Unable to participate) Cervical ROM: Other (Unable to participate) Dentition: false History/ROS No significant history except as noted and No significant complaints Pulmonary Chronic Obstructive Pulmonary Disease CV/HEM Anemia, Arrythmia, Congestive Heart Failure, Hypertension and Myocardial Infarction Endoleak, endoleak Chronic Renal Failure (CKD stage 3) Renal stent Hepatic None reported GI Gastroesophageal Reflux Disease Anemia Metabolic Hyperlipidemia and Thyroid Disease [facility] Osteoarthritis/DJD Neuropsych Anxiety, Depression, Headache (Chronic migraine) and Syncope Brain aneurysm Anesthetic Plan ASA status: 4 Anesthesia: Anesthesia Evaluation, General and MAC Other: Patient unable to cooperate. Spoke with son at bed about aneshtesia risks and benefits. Son signed consent to continue with procedure Risk of > 500 ml blood loss (7ml/kg in children): No Medications/Allergies Home Medications Medication Instructions Recorded Confirmed Last Taken Type fluticasone propionate 50 2 spray intranasal DAILY PRN Nasal 02/21/20 05/10/22 12/10/20 History mcg/actuation nasal Congestion spray,suspension (Flonase Allergy Relief) albuterol sulfate 2.5 mg/3 mL 2.5 mg (3 mL) inhalation QID PRN 05/15/20 05/10/22 12/10/20 Rx (0.083 %) solution for nebulization Shortness Of Breath 30 days #75 mL epinephrine 0.3 mg/0.3 mL 0.3 mg IM Q10M PRN Allergic 10/16/20 05/10/22 Unknown History injection, auto-injector Reaction bumetanide 1 mg tablet 1 mg PO DAILY 06/13/21 05/10/22 Unknown History azithromycin 250 mg tablet 250 mg PO .COMPLEX COPD 90 days 11/25/21 05/10/22 Unknown Rx #45 tabs revefenacin 175 mcg/3 mL solution 175 mcg (3 mL) inhalation DAILY 30 11/25/21 05/10/22 Unknown Rx for nebulization days #90 mL budesonide 0.5 mg/2 mL suspension 0.5 mg (2 mL) inhalation BID 30 01/06/22 05/10/22 Unknown Rx for nebulization (Pulmicort) days #120 mL formoterol fumarate 20 mcg/2 mL 2 ml inhalation Q12H 30 days #120 01/06/22 05/10/22 Unknown Rx solution for nebulization mL (Perforomist) ropinirole 1 mg tablet 1 mg PO DAILY@2099 30 days #30 tabs 01/06/22 05/10/22 Unknown Rx cyclobenzaprine 5 mg tablet 5 mg PO TID PRN muscle spasm #10 03/28/22 05/10/22 Unknown Rx tabs bupropion HCl 150 mg 24 hr tablet, 150 mg PO QAM #30 tabs 03/31/22 05/10/22 Unknown Rx extended release (Wellbutrin XL) buspirone 5 mg tablet 5 mg PO TID #90 tabs 03/31/22 05/10/22 Unknown Rx citalopram 40 mg tablet 40 mg PO DAILY@829 30 days #30 03/31/22 05/10/22 Unknown Rx tabs hydroxyzine HCl 50 mg tablet 50 mg PO QID PRN anxiety #120 tabs 03/31/22 05/10/22 Unknown Rx albuterol sulfate 90 mcg/actuation 2 puff inhalation 6XD PRN 04/05/22 05/10/22 Unknown Rx aerosol inhaler Shortness Of Breath #6.7 grams aspirin 81 mg tablet,delayed 81 mg PO DAILY@829 30 days #30 04/05/22 05/10/22 Unknown Rx release tabs metoprolol succinate 50 mg 50 mg PO BID@ 30 days #60 04/05/22 05/10/22 Unknown Rx tablet,extended release 24 hr tabs montelukast 10 mg tablet 10 mg PO DAILY@829 #30 tabs 04/05/22 05/10/22 Unknown Rx nitroglycerin 0.4 mg sublingual 0.4 mg sublingual Q5M PRN Chest 04/05/22 05/10/22 Unknown Rx tablet (Nitrostat) Pain 30 days #30 tabs omeprazole 20 mg capsule,delayed 20 mg PO DAILY@0830 30 days #30 04/05/22 05/10/22 Unknown Rx release caps atorvastatin 40 mg tablet 30 mg PO DAILY 05/03/22 05/10/22 Unknown History clonidine HCl 0.1 mg tablet 0.1 mg PO BID@0830,2100 #180 tabs 05/03/22 05/10/22 Unknown Rx isosorbide mononitrate 60 mg 60 mg PO DAILY@0830 30 days #30 05/03/22 05/10/22 Unknown Rx tablet,extended release 24 hr tabs amlodipine 10 mg tablet 10 mg PO DAILY 05/10/22 05/10/22 Unknown History arformoterol 15 mcg/2 mL solution 2 ml inhalation BID #60 mL 05/10/22 Unknown Rx for nebulization (Brovana) levothyroxine 50 mcg tablet 50 mcg PO DAILY 05/10/22 05/10/22 Unknown History Allergies Allergy/AdvReac Type Severity Reaction Status Date / Time lisinopril Allergy Severe anaphylaxis Verified 05/10/22 09:11 Sulfa (Sulfonamide AdvReac Intermediate Itching, Verified 05/10/22 09:11 Antibiotics) burning Current Medications Generic Name Dose Route Start Last Admin Trade Name Freq PRN Reason Stop Dose Admin Albuterol/Ipratropium 3 ml 05/11/22 02:00 05/11/22 08:53 Ipratropium-Albuterol 3 Ml Neb INHALATION 3 ml Q6H.RESP APOLONIA Administration Budesonide 0.5 mg 05/11/22 08:00 05/11/22 08:53 Budesonide 0.5 Mg/2 Ml Neb INHALATION 0.5 mg BID.RESPIRATORY APOLONIA Administration Hydralazine HCl 10 mg 05/10/22 11:18 05/10/22 13:38 Hydralazine 20 Mg/Ml Inj 1 Ml IVP 10 mg Q4H PRN Administration HYPERTENSION Piperacillin Sod/Tazobactam 50 mls @ 12.5 mls/hr 05/10/22 21:00 05/11/22 09:17 Sod 3.375 gm/ Sodium Chloride IV 12.5 mls/hr Q12H APOLONIA Administration Protocol Nicardipine/Sodium Chloride 20 mg in 200 mls @ 0 mls/hr 05/10/22 15:00 05/11/22 09:11 Cardene IV 1.5 mg/hr .Q0M APOLONIA 15 mls/hr Administration Protocol Per Protocol Lactated Ringer's 1,000 mls @ 50 mls/hr 05/10/22 17:45 05/11/22 09:35 Lactated Ringers IV 50 mls/hr .Q20H APOLONIA Infusion Methylprednisolone Sodium Succinate 20 mg 05/10/22 20:00 05/11/22 09:16 Methylprednisolone Sod Succ 40 Mg/Ml Inj IVP 20 mg Q12H APOLONIA Administration Morphine Sulfate 2 mg 05/10/22 16:37 05/11/22 05:48 Morphine 4 Mg/Ml Sdv 1 Ml IVP 2 mg Q2H PRN Administration SEVERE PAIN Ondansetron HCl 4 mg 05/10/22 10:39 05/10/22 20:09 Ondansetron 2 Mg/Ml Sdv 2 Ml IVP 4 mg Q6H PRN Administration NAUSEA AND VOMITING Pantoprazole Sodium 40 mg 05/11/22 08:00 05/11/22 09:18 Pantoprazole 40 Mg Sdv IVP 40 mg Q12H APOLONIA Administration Additional Medication Information Current Medications Albuterol/Ipratropium (Ipratropium-Albuterol 3 Ml Neb) 3 ml INHALATION Q6H.RESP APOLONIA Last Admin: 05/11/22 02:17 Dose: 3 ml Budesonide (Budesonide 0.5 Mg/2 Ml Neb) 0.5 mg INHALATION BID.RESPIRATORY APOLONIA Hydralazine HCl (Hydralazine 20 Mg/Ml Inj 1 Ml) 10 mg IVP Q4H PRN PRN Reason: HYPERTENSION Last Admin: 05/10/22 13:38 Dose: 10 mg Piperacillin Sod/Tazobactam (Sod 3.375 gm/ Sodium Chloride) 50 mls @ 12.5 mls /hr IV Q12H APOLONIA; Protocol Last Titration: 05/11/22 00:58 Dose: Infused Nicardipine/Sodium Chloride (Cardene) 20 mg in 200 mls @ 0 mls/hr IV .Q0M APOLONIA; Protocol Last Titration: 05/11/22 03:24 Dose: 1.5 mg/hr, 15 mls/hr Lactated Ringer's (Lactated Ringers) 1,000 mls @ 50 mls/hr IV .Q20H APOLONIA Last Admin: 05/11/22 04:18 Dose: 100 mls/hr Vancomycin HCl 750 mg/ Sodium (Chloride) 250 mls @ 250 mls/hr IV Q48H APOLONIA; Protocol Levothyroxine Sodium (Levothyroxine 50 Mcg Tablet) 50 mcg PO DAILY APOLONIA Methylprednisolone Sodium Succinate (Methylprednisolone Sod Succ 40 Mg/Ml Inj) 20 mg IVP Q12H APOLONIA Last Admin: 05/10/22 20:17 Dose: 20 mg Morphine Sulfate (Morphine 4 Mg/Ml Sdv 1 Ml) 2 mg IVP Q2H PRN PRN Reason: SEVERE PAIN Last Admin: 05/11/22 05:48 Dose: 2 mg Ondansetron HCl (Ondansetron 2 Mg/Ml Sdv 2 Ml) 4 mg IVP Q6H PRN PRN Reason: NAUSEA AND VOMITING Last Admin: 05/10/22 20:09 Dose: 4 mg Pantoprazole Sodium (Pantoprazole 40 Mg Sdv) 40 mg IVP Q12H APOLONIA PFSH Anesthesia Medical History AAA (abdominal aortic aneurysm) 4.1 x 4.4 x 5.7 cm 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 Anemia Atypical chest pain Brain aneurysm Chronic kidney disease CKD stage III, solitary kidney Chronic migraine without aura, intractable, with status migrainosus Congestive heart failure COPD (chronic obstructive pulmonary disease) Depression Endoleak post (EVAR) endovascular aneurysm repair GERD (gastroesophageal reflux disease) History of stent insertion of renal artery Hypercholesteremia Hypertension Hypertensive urgency Resolved Hypothyroidism Inguinal swelling Normal colonoscopy Osteoporosis Peripheral vascular disease Psychiatric care Restless leg Solitary kidney Surgical History H/O: hysterectomy History of renal stent Herculink stent History of repair of aneurysm of abdominal aorta using endovascular stent graft Hx of tonsillectomy S/P appendectomy Family History Mother CAD (coronary artery disease) Chronic kidney disease (CKD) Dementia Stroke Father CAD (coronary artery disease) Cancer Diabetes Brother CAD (coronary artery disease) Cancer Lung disease Grandfather Cancer Grandmother Diabetes Family/Other Lung disease Suicide Other Hypertension Denies family history of Clotting disorder Anesthesia complication Bleeding disorder Social History Smoking and tobacco status: former smoker Quit status (tobacco): has quit using tobacco Year quit tobacco: 2005 - PPD x 35 Years Former quit date comment: Started at age 18 Second hand smoke exposure: No Smoking risk assessment/counseling performed?: No Alcohol intake: never Desire information about alcohol rehabilitation?: No Counseling given: No Desire information about substance/drug rehabilitation?: No Counseling given: No Adopted: No Caregiver/support person: No Lives independently: Yes Household members: family and children Housing: House Marital status: / Marital status details: 2005 Number of children: 12 Number of grandchildren: 4 Highest education level completed: Master's Degree Education level details: Criminal Justice service: No Current occupational status: disabled Current occupational exposures/hazards: No Pets and animals: Yes Pets & animals: cat(s), dog(s) and farm animals Farm Animals: cattle History of recent travel: No Leisure activites: reading and other Leisure activities details: watch TV Sexually active: No Current gender identity: Female Yudy/Congregation: [employer] Special yudy needs: No Agree to transfusion: Yes Financial difficulty paying for basics: Somewhat Hard Female Reproductive History Date of last menstrual period: 10/21/20 Para: 0 Spontaneous abortions: Yes Data Anesthesia : 05/11/22 03:35 05/11/22 03:35 Short CBC 05/10/22 05/10/22 05/10/22 Range/Units 07:00 10:50 15:30 WBC 18.0 H 18.7 H 25.0 H (4.0-10.0) 10^3/uL Hgb 10.7 L 10.7 L 11.6 (11.5-15.3) g/dL Hct 34.0 L 34.2 L 36.5 L (37.0-47.0) % MCV 87.0 88.1 87.3 (81-99) fl Plt Count 85 L 68 L 98 L D (130-400) 10^3/cmm Neut % (Auto) 85.5 81.6 84.8 % Neut # (Auto) 15.35 H 15.23 H 21.19 H (1.8-7.7) 10^3/uL 05/10/22 05/11/22 Range/Units 20:20 03:35 WBC 22.7 H 28.8 H (4.0-10.0) 10^3/uL Hgb 10.0 L 9.7 L (11.5-15.3) g/dL Hct 31.1 L 31.1 L (37.0-47.0) % MCV 86.1 87.4 (81-99) fl Plt Count 80 L 79 L (130-400) 10^3/cmm Neut % (Auto) 87.2 95.0 % Neut # (Auto) 19.82 H 27.38 H (1.8-7.7) 10^3/uL BMP 05/10/22 05/10/22 05/10/22 07:00 15:30 20:20 Sodium 124 L 127 L 135 L Potassium 4.9 4.7 5.0 Chloride 96 L 100 107 Carbon Dioxide 16 L 16 L 17 L BUN 82 H* D 80 H 82 H* Creatinine 2.8 H 3.3 H 3.6 H Glucose 412 H 124 H 101 Calcium 7.6 L 8.0 L 7.9 L 05/11/22 03:35 Sodium 134 L Potassium 5.3 H Chloride 105 Carbon Dioxide 16 L BUN 81 H Creatinine 4.1 H Glucose 99 Calcium 8.2 L Cardiac Enzymes 05/10/22 05/10/22 05/10/22 Range/Units 07:00 07:00 09:00 Creatine Kinase 105 (26-192) U/L Troponin T Baseline 57 H (0-10) ng/L Troponin T 120 Minute 71.57 H (0-10) ng/L Delta Troponin T 14.57 H* (0-10) ABS# Troponin T Hi Sens 6Hr (0-10) ng/L Troponin T Hi Sens 6Hr Delta (0-12) ng/L 05/10/22 05/10/22 05/11/22 Range/Units 13:20 20:20 03:35 Creatine Kinase 118 160 (26-192) U/L Troponin T Baseline (0-10) ng/L Troponin T 120 Minute (0-10) ng/L Delta Troponin T (0-10) ABS# Troponin T Hi Sens 6Hr 81.22 H (0-10) ng/L Troponin T Hi Sens 6Hr Delta 24.22 H* (0-12) ng/L Liver Function 05/10/22 05/11/22 Range/Units 07:00 03:35 Total Bilirubin 0.2 0.3 (0.15-1.2) mg/dL AST 29 101 H (0-32) U/L ALT 13 63 H (0-33) U/L Alkaline Phosphatase 82 87 (35-105) U/L Albumin 1.7 L 2.1 L (3.5-5.2) g/dL Blood Bank 05/10/22 07:00 Blood Type A Positive Rho(D) Type Positive Antibody Screen Negative ABG 05/10/22 06:50 Specimen Type Arterial Sample Site Brachial, right ABG pH 7.34 L ABG pCO2 32.9 L ABG pO2 108.0 H ABG HCO3 17.7 L ABG O2 Saturation 98.3 ABG Base Excess -7.2 L A-a O2 Gradient O2 Delivery Device Nc O2 Liters/Min 3.0 Microbiology 05/10/22 07:47 Blood Culture - Preliminary Blood NEGATIVE TO DATE 05/10/22 07:00 Blood Culture - Preliminary Blood NEGATIVE TO DATE Cardiac Studies: Echocardiogram Limited Views 04/22/20 Echocardiogram Ultrasound 08/19/20
--- NOTE | 2022-05-11 10:22 | PC.NURSE ---
Hemodialysis catheter placed by Dr. Petit. Right femoral site. No complications. Patient in care of GI lab staff at 1022 for EGD. Michael James at bedside for consent of procedures and updates for family.
--- NOTE | 2022-05-11 10:50 | PM.PN ---
Subjective Subjective: Patient awakens quickly. Confused. Nursing reports she got quite a bit of pain medicine for pain through the night. No stools through the night. No urine output. Medications: Reviewed: Yes Vitals/I&O/Wt Last Vital Signs Temp 98.1 F 05/11/22 10:23 Pulse 113 H 05/11/22 10:23 Resp 14 05/11/22 10:23 BP 145/89 05/11/22 10:23 Pulse Ox 100 05/11/22 10:23 O2 Del Method 05/11/22 10:23 O2 Flow Rate 10 05/11/22 10:23 05/10/22 05/11/22 05/11/22 22:59 06:59 14:59 Intake Total 1318.900 / 2747.234 1353.833 / 4101.067 615.083 / 615.083 Output Total 0 / 0 Balance 1318.900 / 2747.234 1353.833 / 4101.067 615.083 / 615.083 Weight last 48 hrs Weight 52.163 kg Weight 54.431 kg Physical Exam Narrative: General exam awakens easily, confused Neuro no obvious focal deficits Neck is supple no lymphadenopathy thyromegaly Cardiovascular regular rate and rhythm without murmur Lungs are clear without wheezing or crackles. Diminished breath sounds bilaterally Abdomen is soft. Bowel sounds are noted. Tenderness is noted generalized. No obvious organomegaly exam normal female, Martins noted Extremities no cyanosis clubbing or edema, cap refill brisk Skin no rash Urinary Catheter Management: Martins Latex Free: Cath Placed During This Visit: yes Reason for Continuing Indwelling Catheter: Accurate Measurement of Urinary Output in Critically Ill Patients Urinary Catheter Date of Insertion: 05/10/22 Urinary Catheter Time of Insertion: 09:29 Data : 05/11/22 03:35 05/11/22 03:35 Micro: Microbiology 05/10/22 07:47 Blood Culture - Preliminary Blood NEGATIVE TO DATE 05/10/22 07:00 Blood Culture - Preliminary Blood NEGATIVE TO DATE A&P Assessment and plan (1) GI bleed: Patient presents with GI bleeding. It appears this may be upper. Reviewed CT with radiology. Unfortunately this is not a CTA so cannot rule out fistula from aneurysm. However, creatinine is high and patient without urine output. Investigation of this currently may lead to high risk of need for dialysis. Hemoglobin has remained stable. No further blood in stool. Discontinue Protonix drip, changed to 40 every 12 hours Appreciate surgical consultation for EGD (2) Abdominal pain: See above Treat for peptic ulcer disease currently. CT results showed pancreatitis but lipase is not elevated. Lactate is not elevated. Secondary to worsening kidney function, need for dialysis today CT scan with contrast was done this morning with planned dialysis following. This demonstrated no fistula from distal aortic stent. 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 Celiac, SMA was patent gallbladder wall thickened, no cholelithiasis Continue pain control as needed Discussed with family findings. They are making decision if they would want further opinion from vascular drum tester. From talking with colleagues here, it is difficult to know if she would have any improvement with the procedure. She has underlying chronic kidney disease, significant comorbidities, distal aortic graft which will complicate any procedure, and presented with a GI bleed which may complicate the ability to anticoagulate. (3) Acute encephalopathy: Patient with history of being found down. CT head showed no bleed No evidence of stroke per neurologic exam Question of ID ES. Placed on nicardipine drip which is controlling blood pressure well. Was hypoglycemic. No evidence of recurrence. She appears to be on chronic steroids for her COPD and these were continued IV, with higher dosage. (4) Acute kidney injury: Appreciate nephrology consultation Dialysis today Renal artery stent occluded (5) Anemia: See notations under GI bleed. Patient with acute blood loss anemia. Hemoglobin has been stable. EGD planned today. Qualifiers: Anemia type: unspecified type Qualified Code(s): D64.9 - Anemia, unspecified (6) Metabolic acidosis: Likely secondary to dehydration, GI bleeding Should improve with dialysis (7) Thrombocytopenia: Continue to follow Platelet count has remained stable. Hemoglobin is stable. Depending on results of EGD anticoagulation could be considered. (8) Leukocytosis: Secondary to GI bleed, significant leukocytosis Zosyn was started prophylactically. Vancomycin was also initiated. Await cultures (9) Hyponatremia: Partly secondary to pseudohyponatremia with hyperglycemia. This was after glucose bolus given in the emergency department by ER physician for hypoglycemia. This has corrected significantly (10) Dehydration: Resolved (11) Hypoglycemia: Resolved (12) Elevated troponin: Echocardiogram ordered by nephrology. This demonstrated preserved EF, pulmonary artery pressure of 34 Echo in 2020 demonstrated preserved ejection fraction (13) COPD (chronic obstructive pulmonary disease): Pulmonary toilet As patient is on chronic steroids from medicine list placed on Solu-Medrol 20 mg IV every 12 hours Qualifiers: COPD type: unspecified COPD Qualified Code(s): J44.9 - Chronic obstructive pulmonary disease, unspecified Plan Other medical problems as outlined in past medical history Full code currently. Will discuss in detail with family when they are available SCDs for DVT prophylaxis. Anticoagulation contraindicated secondary to GI bleeding. Attestations Medical Necessity Statement*: Needs continued hospital stay secondary to encephalopathy, right renal stent occlusion, splenic infarct, renal failure requiring dialysis, etc. Critical Care Time: The high probability of a clinically significant, sudden or life threatening deterioration of the patient's [renal, cardiac, vascular] system(s) required my full and direct attention, intervention and personal management. The critical care time is as shown. This time is in addition to time spent performing any reported procedures but includes the following: [x] Data and vital sign review and interpretation [x] Patient assessment, examination and intervention [x] Documentation [x] Medication orders and management Critical Care Time (min): 44 Coding Level of Care Code Acute Energy Infrastructure Engineer for g Fwd Diagnoses GI bleed K92.2 Abdominal pain R10.9 Acute encephalopathy G93.40 Acute kidney injury N17.9 Anemia D64.9 Anemia type: unspecified type Metabolic acidosis E87.20 Thrombocytopenia D69.6 Leukocytosis D72.829 Hyponatremia E87.1 Dehydration E86.0 Hypoglycemia E16.2 Elevated troponin R77.8 COPD (chronic obstructive pulmonary disease) J44.9 COPD type: unspecified COPD
--- NOTE | 2022-05-11 11:19 | W.PM.OPSUD ---
Surgery/Procedure H&P Update DATE OF PROCEDURE: May 11, 2022 DATE H&P PERFORMED: 05/10/22 PREOP DIAGNOSIS: anemia PLANNED PROCEDURE: Operation Date: 05/11/22 11:30 Proposed Procedures p EGD(Not Applicable) - Ward Petit DO
[2022-05-11] MEDS: cetylpyridinium Lozenge 1 EACH MUCOUS MEM (12:46)
[2022-05-11 12:53] LABS: Glucose Point of Care 107 mg/dL (70-110)
--- NOTE | 2022-05-11 13:10 | ANE.PACU2 ---
Inpatient post-anesthesia follow up: Airway intact: Yes Vital signs: Temperature 99.7 F Pulse Rate 116 Respiratory Rate 16 Blood Pressure 114/82 Pulse Oximetry 93 Oxygen Delivery Me thod [ Nasal Cannula Current Rate & Del beena] Oxygen Delivery Me thod Nasal Cannula Oxygen Flow Rate [ Current Rate 2 & Delivery] Oxygen Flow Rate 2 Fraction of Inspir ed Oxygen Hydration adequate: Yes Nausea and vomiting: No Pain level: 1 Mental status: Baseline
[2022-05-11] MEDS: acetaminophen 325 mg Tablet 650 MG PO (13:38)
[2022-05-11] MEDS: vancomycin 750 MG in sodium chloride 0.9% 250 ML 250 MG IV (13:39)
[2022-05-11] MEDS: heparin, porcine 1,000 unit/mL INJ 10 mL HE (13:40)
[2022-05-11 15:00] LABS: Glucose Point of Care 102 mg/dL (70-110)
[2022-05-11 15:08] LABS: Platelet Count 85 10^3/cmm (130-400)
--- NOTE | 2022-05-11 16:33 | PM.TDS ---
Transfer Summary Providers Date of Admission: 05/10/22 10:39 Date of Discharge/Transfer: 05/11/22 Attending Provider at Admission: Eyal Porras MD Attending Provider at Transfer: Eyal Porras MD Primary Care Provider: HREBERT Masters Transfer Plans: Anticipated date of transfer: 05/11/22. Receiving Facility: [facility]. Receiving Provider: Dr. Peace. Diagnoses at Discharge Discharge Diagnosis (1) GI bleed: Status: Acute (2) Abdominal pain: Status: Acute (3) Acute encephalopathy: Status: Acute (4) Acute kidney injury: Status: Acute (5) Anemia: Status: Acute Qualifiers: Anemia type: unspecified type Qualified Code(s): D64.9 - Anemia, unspecified (6) Metabolic acidosis: Status: Acute (7) Thrombocytopenia: Status: Acute (8) Leukocytosis: Status: Acute (9) Hyponatremia: Status: Acute (10) Dehydration: Status: Acute (11) Hypoglycemia: Status: Acute (12) Elevated troponin: Status: Acute (13) COPD (chronic obstructive pulmonary disease): Status: Acute Qualifiers: COPD type: unspecified COPD Qualified Code(s): J44.9 - Chronic obstructive pulmonary disease, unspecified Reason for Visit Reason for Visit Abd Pain/Poss GI Bleed Hospital Course Hospital Course Hali is a 66-year-old [place] female with history of abdominal aortic aneurysm with endograft placed in 2019, anemia, past history of brain aneurysm, COPD dependent on 3 L of oxygen, history of renal artery stenosis with right renal stent, hypertension, hyperlipidemia, hypothyroidism who presented to the hospital after being found down at home. Family reports she had had some abdominal discomfort in the day or 2 preceding this. In the emergency department she was found to be confused, and had evidence of GI bleed with black tarry stool. Initial evaluation included a noncontrast CT scan demonstrating some concerns for pancreatitis, although her lipase was normal. CT of head raised question of PRES. she was placed on a nicardipine drip, given fluid for resuscitation, and serial hemoglobins were performed. A Martins was placed, renal ultrasound confirmed appropriate placement. Overnight she had continued confusion. Blood pressure was controlled. She had no further bowel movements suggestive of blood. Hemoglobin remained stable. However, she made absolutely no urine. Nephrology had been consulted recommended dialysis. A CT scan with contrast was done prior to this which showed markedly decreased perfusion right kidney consistent with ischemia with only a small area of residual perfusion likely from collateral flow. A wedge-shaped attenuation of the spleen was also noted suspicious for splenic infarct. Celiac and SMA appeared open. The aortic endograft with biiliac extension appeared stable. There was still concern for pancreatitis, gastritis and duodenitis. Gallbladder was somewhat hydropic. General surgery placed a dialysis catheter. An EGD was performed which demonstrated severe gastritis but no evidence of active bleeding. Hemodialysis occurred without complication. Heparin was cautiously started considering possibility of embolic event causing renal stent occlusion as well as splenic infarct after discussion with family regarding risks and benefits including bleeding and/or . I discussed in detail the concern with significant decreased flow to her right kidney causing her severe kidney failure with nephrology, and other colleagues at our hospital. I discussed this with the family, regarding possible transfer to see if blood flow could be restored to the kidney. I cautioned them that she has quite a bit of comorbidities, and it is not guaranteed flow could be restored or an improved outcome. They wanted to try transfer to higher level of care to see if an improved outcome could occur with intervention. She appears stable at transfer, but still critically ill with her multiple comorbidities, IV drips, recent dialysis, initiation of heparin with recent GI bleeding. Secondary to this transportion by flight is most appropriate. [facility], graciously accepted her in transfer. I spoke directly with Dr. Peace to facilitate this. Physical Exam Narrative: General exam is a confused but conversive female, in no distress Neck supple no lymphadenopathy or thyromegaly Cardiovascular tachycardic but without murmur Lungs clear but diminished breath sounds at the bases Abdomen is soft, tenderness noted globally. Bowel sounds are noted. Extremities no cyanosis clubbing or edema, cap refill brisk Skin no rash Neuro no obvious focal deficits but confusion noted. Urinary Catheter Management: Martins Latex Free: Cath Placed During This Visit: yes Reason for Continuing Indwelling Catheter: Accurate Measurement of Urinary Output in Critically Ill Patients Urinary Catheter Date of Insertion: 05/10/22 Urinary Catheter Time of Insertion: 09:29 TS Data Studies Completed and Pending Pending at discharge Category Date Time Status LILIANA Screen w/ Reflex Routine Lab 05/10/22 20:20 Received Anti Double Stranded DNA AB Routine Lab 05/10/22 20:20 Received Anti-Neutrophil Cytoplasmic AB Routine Lab 05/10/22 20:20 Received Anti-streptolysin O Routine Lab 05/10/22 20:20 Received Blood Culture Stat Lab 05/10/22 07:47 Results CBC Auto Diff [Complete Blood Count w/Auto] AM LABS Lab 05/12/22 04:00 Ordered Comprehensive Metabolic Panel AM LABS Lab 05/12/22 04:00 Ordered Comprehensive Metabolic Panel AM LABS Lab 05/13/22 04:00 Ordered Glomerular Basement AB IGG Routine Lab 05/10/22 20:20 Received Magnesium AM LABS Lab 05/12/22 04:00 Ordered Magnesium AM LABS Lab 05/13/22 04:00 Ordered Phosphorus AM LABS Lab 05/12/22 04:00 Ordered Phosphorus AM LABS Lab 05/13/22 04:00 Ordered Platelet Count Q2D Lab 05/13/22 04:00 Ordered Platelet Count Q2D Lab 05/15/22 04:00 Ordered SS A Ro Sjogrens Antibody Routine Lab 05/10/22 20:20 Received SS-B/LA Antibody IGG Routine Lab 05/10/22 20:20 Received Urinalysis Stat Lab 05/10/22 06:49 Uncollected Urinalysis and Microscopic Stat Lab 05/10/22 17:33 Uncollected Urine Random Lytes Routine Lab 05/10/22 17:33 Uncollected Urine Random Sodium Routine Lab 05/10/22 17:33 Uncollected Vancomycin Random AM LABS Lab 05/12/22 04:00 Ordered Vancomycin Random AM LABS Lab 05/13/22 04:00 Ordered Vancomycin Random AM LABS Lab 05/14/22 04:00 Ordered Pathology: Surgical [PTH] Routine Pth 05/11/22 11:33 Received Labs from last 24 hours 05/11/22 05/11/22 05/11/22 15:00 14:57 12:38 WBC RBC Hgb Hct MCV MCH MCHC RDW Plt Count 85 L MPV Neut % (Auto) Lymph % (Auto) Band[place] % (Auto) Eos % (Auto) Baso % (Auto) Neut # (Auto) Lymph # (Auto) Band[place] # (Auto) Eos # (Auto) Baso # (Auto) Nucleated RBC % (auto) Nucleated RBCs # Sodium Potassium Chloride Carbon Dioxide Anion Gap BUN Creatinine GFR Calculation Glucose POC Glucose 102 107 Calculated Osmolality Uric Acid Calcium Phosphorus Magnesium Total Bilirubin AST ALT Alkaline Phosphatase Ammonia Creatine Kinase Total Protein Albumin Globulin Lipase 25-OH Vitamin D Total PTH Intact Calcium (PTH Intact) LILIANA Screen ANCA Screen ANCA Titer SS-A/Ro Antibody SS-B/La IgG Antibody Anti-ds DNA IgG Ab Glomerular Base Mem IgG Hep Bs Antigen Hep Bs Antibody Hepatitis C Antibody Anti-Streptolysin O Ab 05/11/22 05/11/22 05/11/22 09:07 06:39 05:41 WBC RBC Hgb Hct MCV MCH MCHC RDW Plt Count MPV Neut % (Auto) Lymph % (Auto) Band[place] % (Auto) Eos % (Auto) Baso % (Auto) Neut # (Auto) Lymph # (Auto) Band[place] # (Auto) Eos # (Auto) Baso # (Auto) Nucleated RBC % (auto) Nucleated RBCs # Sodium Potassium Chloride Carbon Dioxide Anion Gap BUN Creatinine GFR Calculation Glucose POC Glucose 101 110 Calculated Osmolality Uric Acid Calcium Phosphorus Magnesium Total Bilirubin AST ALT Alkaline Phosphatase Ammonia 22 Creatine Kinase Total Protein Albumin Globulin Lipase 25-OH Vitamin D Total PTH Intact Calcium (PTH Intact) LILIANA Screen ANCA Screen ANCA Titer SS-A/Ro Antibody SS-B/La IgG Antibody Anti-ds DNA IgG Ab Glomerular Base Mem IgG Hep Bs Antigen Hep Bs Antibody Hepatitis C Antibody Anti-Streptolysin O Ab 05/11/22 05/11/22 05/11/22 04:16 03:35 03:35 WBC RBC Hgb Hct MCV MCH MCHC RDW Plt Count MPV Neut % (Auto) Lymph % (Auto) [place] % (Auto) Eos % (Auto) Baso % (Auto) Neut # (Auto) Lymph # (Auto) [place] # (Auto) Eos # (Auto) Baso # (Auto) Nucleated RBC % (auto) Nucleated RBCs # Sodium Potassium Chloride Carbon Dioxide Anion Gap BUN Creatinine GFR Calculation Glucose POC Glucose 112 H Calculated Osmolality Uric Acid Calcium Phosphorus Magnesium Total Bilirubin AST ALT Alkaline Phosphatase Ammonia Creatine Kinase Total Protein Albumin Globulin Lipase 26 25-OH Vitamin D Total PTH Intact 132.2 H Calcium (PTH Intact) 8.2 L LILIANA Screen ANCA Screen ANCA Titer SS-A/Ro Antibody SS-B/La IgG Antibody Anti-ds DNA IgG Ab Glomerular Base Mem IgG Hep Bs Antigen Hep Bs Antibody Hepatitis C Antibody Anti-Streptolysin O Ab 05/11/22 05/11/22 05/11/22 03:35 03:35 02:38 WBC 28.8 H RBC 3.56 L Hgb 9.7 L Hct 31.1 L MCV 87.4 MCH 27.2 L MCHC 31.2 RDW 15.3 H Plt Count 79 L MPV 11.3 H Neut % (Auto) 95.0 Lymph % (Auto) 2.0 Bandera % (Auto) 1.9 Eos % (Auto) 0.0 Baso % (Auto) 0.2 Neut # (Auto) 27.38 H Lymph # (Auto) 0.6 L Band[place] # (Auto) 0.6 Eos # (Auto) 0.0 Baso # (Auto) 0.1 Nucleated RBC % (auto) 0 Nucleated RBCs # 0.0 Sodium 134 L Potassium 5.3 H Chloride 105 Carbon Dioxide 16 L Anion Gap 18.3 BUN 81 H Creatinine 4.1 H GFR Calculation 11.0 L Glucose 99 POC Glucose 113 H Calculated Osmolality 302 H Uric Acid Calcium 8.2 L Phosphorus 5.1 H Magnesium 1.8 Total Bilirubin 0.3 AST 101 H ALT 63 H Alkaline Phosphatase 87 Ammonia Creatine Kinase 160 Total Protein 4.4 L D Albumin 2.1 L Globulin 2.3 Lipase 25-OH Vitamin D Total 24 L PTH Intact Calcium (PTH Intact) LILIANA Screen ANCA Screen ANCA Titer SS-A/Ro Antibody SS-B/La IgG Antibody Anti-ds DNA IgG Ab Glomerular Base Mem IgG Hep Bs Antigen Hep Bs Antibody Hepatitis C Antibody Anti-Streptolysin O Ab 05/11/22 05/10/22 05/10/22 00:04 22:10 20:20 WBC RBC Hgb Hct MCV MCH MCHC RDW Plt Count MPV Neut % (Auto) Lymph % (Auto) Band[place] % (Auto) Eos % (Auto) Baso % (Auto) Neut # (Auto) Lymph # (Auto) Band[place] # (Auto) Eos # (Auto) Baso # (Auto) Nucleated RBC % (auto) Nucleated RBCs # Sodium Potassium Chloride Carbon Dioxide Anion Gap BUN Creatinine GFR Calculation Glucose POC Glucose 97 103 Calculated Osmolality Uric Acid Calcium Phosphorus Magnesium Total Bilirubin AST ALT Alkaline Phosphatase Ammonia 21 Creatine Kinase Total Protein Albumin Globulin Lipase 25-OH Vitamin D Total PTH Intact Calcium (PTH Intact) LILIANA Screen ANCA Screen ANCA Titer SS-A/Ro Antibody SS-B/La IgG Antibody Anti-ds DNA IgG Ab Glomerular Base Mem IgG Hep Bs Antigen Hep Bs Antibody Hepatitis C Antibody Anti-Streptolysin O Ab 05/10/22 05/10/22 05/10/22 20:20 20:20 20:20 WBC RBC Hgb Hct MCV MCH MCHC RDW Plt Count MPV Neut % (Auto) Lymph % (Auto) Band[place] % (Auto) Eos % (Auto) Baso % (Auto) Neut # (Auto) Lymph # (Auto) Band[place] # (Auto) Eos # (Auto) Baso # (Auto) Nucleated RBC % (auto) Nucleated RBCs # Sodium Potassium Chloride Carbon Dioxide Anion Gap BUN Creatinine GFR Calculation Glucose POC Glucose Calculated Osmolality Uric Acid Calcium Phosphorus Magnesium Total Bilirubin AST ALT Alkaline Phosphatase Ammonia Creatine Kinase Total Protein Albumin Globulin Lipase 25-OH Vitamin D Total PTH Intact Calcium (PTH Intact) LILIANA Screen ANCA Screen ANCA Titer SS-A/Ro Antibody SS-B/La IgG Antibody Pending Anti-ds DNA IgG Ab Pending Glomerular Base Mem IgG Hep Bs Antigen Hep Bs Antibody Hepatitis C Antibody Anti-Streptolysin O Ab Pending 05/10/22 05/10/22 05/10/22 20:20 20:20 20:20 WBC RBC Hgb Hct MCV MCH MCHC RDW Plt Count MPV Neut % (Auto) Lymph % (Auto) Band[place] % (Auto) Eos % (Auto) Baso % (Auto) Neut # (Auto) Lymph # (Auto) Band[place] # (Auto) Eos # (Auto) Baso # (Auto) Nucleated RBC % (auto) Nucleated RBCs # Sodium Potassium Chloride Carbon Dioxide Anion Gap BUN Creatinine GFR Calculation Glucose POC Glucose Calculated Osmolality Uric Acid Calcium Phosphorus Magnesium Total Bilirubin AST ALT Alkaline Phosphatase Ammonia Creatine Kinase 118 Total Protein Albumin Globulin Lipase 25-OH Vitamin D Total PTH Intact Calcium (PTH Intact) LILIANA Screen Pending ANCA Screen Pending ANCA Titer Pending SS-A/Ro Antibody Pending SS-B/La IgG Antibody Anti-ds DNA IgG Ab Glomerular Base Mem IgG Pending Hep Bs Antigen Non-reactive Hep Bs Antibody 41.0 Hepatitis C Antibody Non-reactive Anti-Streptolysin O Ab 05/10/22 05/10/22 05/10/22 20:20 20:20 20:20 WBC 22.7 H RBC 3.61 L Hgb 10.0 L Hct 31.1 L MCV 86.1 MCH 27.7 L MCHC 32.2 RDW 15.0 Plt Count 80 L MPV 10.4 Neut % (Auto) 87.2 Lymph % (Auto) 7.2 Bandera % (Auto) 4.5 Eos % (Auto) 0.0 Baso % (Auto) 0.2 Neut # (Auto) 19.82 H Lymph # (Auto) 1.6 Bandera # (Auto) 1.0 H Eos # (Auto) 0.0 Baso # (Auto) 0.1 Nucleated RBC % (auto) 0 Nucleated RBCs # 0.0 Sodium 135 L Potassium 5.0 Chloride 107 Carbon Dioxide 17 L Anion Gap 16.0 BUN 82 H* Creatinine 3.6 H GFR Calculation 12.7 L Glucose 101 POC Glucose Calculated Osmolality 305 H Uric Acid 7.2 H Calcium 7.9 L Phosphorus Magnesium Total Bilirubin AST ALT Alkaline Phosphatase Ammonia Creatine Kinase Total Protein Albumin Globulin Lipase 25-OH Vitamin D Total PTH Intact Calcium (PTH Intact) LILIANA Screen ANCA Screen ANCA Titer SS-A/Ro Antibody SS-B/La IgG Antibody Anti-ds DNA IgG Ab Glomerular Base Mem IgG Hep Bs Antigen Hep Bs Antibody Hepatitis C Antibody Anti-Streptolysin O Ab 05/10/22 05/10/22 05/10/22 14:26 12:50 11:25 WBC RBC Hgb Hct MCV MCH MCHC RDW Plt Count MPV Neut % (Auto) Lymph % (Auto) Bandera % (Auto) Eos % (Auto) Baso % (Auto) Neut # (Auto) Lymph # (Auto) Bandera # (Auto) Eos # (Auto) Baso # (Auto) Nucleated RBC % (auto) Nucleated RBCs # Sodium Potassium Chloride Carbon Dioxide Anion Gap BUN Creatinine GFR Calculation Glucose POC Glucose 148 H 172 H 181 H Calculated Osmolality Uric Acid Calcium Phosphorus Magnesium Total Bilirubin AST ALT Alkaline Phosphatase Ammonia Creatine Kinase Total Protein Albumin Globulin Lipase 25-OH Vitamin D Total PTH Intact Calcium (PTH Intact) LILIANA Screen ANCA Screen ANCA Titer SS-A/Ro Antibody SS-B/La IgG Antibody Anti-ds DNA IgG Ab Glomerular Base Mem IgG Hep Bs Antigen Hep Bs Antibody Hepatitis C Antibody Anti-Streptolysin O Ab Completed Studies During Hospitalization Category Date Time Status CT abdomen pelvis w con* [id number] Routine Cat Scan 05/11/22 07:[address] abdomen pelvis wo con [id number] Stat Cat Scan 05/10/22 06:[address] head wo con* [id number] Stat Cat Scan 05/10/22 09:06 Completed XR chest 1V portable [id number] Routine Exams 05/10/22 16:23 Completed XR chest 1V portable [id number] Stat Exams 05/10/22 06:50 Completed CV. echo complete* [id number] Stat Ultrasound 05/10/22 17:46 Completed US renal BI* [id number] Routine Ultrasound 05/10/22 Completed Laboratory Last Values WBC 28.8 10^3/uL (4.0-10.0) H 05/11/22 03:35 RBC 3.56 10^6/uL (4.1-5.3) L 05/11/22 03:35 Hgb 9.7 g/dL (11.5-15.3) L 05/11/22 03:35 Hct 31.1 % (37.0-47.0) L 05/11/22 03:35 MCV 87.4 fl (81-99) 05/11/22 03:35 MCH 27.2 pg (28.0-34.0) L 05/11/22 03:35 MCHC 31.2 g/dL (30.0-36.0) 05/11/22 03:35 RDW 15.3 % (12.1-15.1) H 05/11/22 03:35 Plt Count 85 10^3/cmm (130-400) L 05/11/22 15:00 MPV 11.3 fL (7.4-10.4) H 05/11/22 03:35 Neut % (Auto) 95.0 % 05/11/22 03:35 Lymph % (Auto) 2.0 % 05/11/22 03:35 Bandera % (Auto) 1.9 % 05/11/22 03:35 Eos % (Auto) 0.0 % 05/11/22 03:35 Baso % (Auto) 0.2 % 05/11/22 03:35 Neut # (Auto) 27.38 10^3/uL (1.8-7.7) H 05/11/22 03:35 Lymph # (Auto) 0.6 10^3/uL (0.8-4.8) L 05/11/22 03:35 Bandera # (Auto) 0.6 10^3/uL (0.2-0.9) 05/11/22 03:35 Eos # (Auto) 0.0 10^3/uL (0.0-0.8) 05/11/22 03:35 Baso # (Auto) 0.1 10^3/uL (0.0-0.1) 05/11/22 03:35 Nucleated RBC % (auto) 0 % 05/11/22 03:35 Nucleated RBCs # 0.0 /100WBC 05/11/22 03:35 Specimen Type Arterial 05/10/22 06:50 Sample Site Brachial, right 05/10/22 06:50 ABG pH 7.34 (7.35-7.45) L 05/10/22 06:50 ABG pCO2 32.9 mmHg (35-45) L 05/10/22 06:50 ABG pO2 108.0 mmHg (80.0-100.0) H 05/10/22 06:50 ABG HCO3 17.7 mmol/L (22-26) L 05/10/22 06:50 ABG O2 Saturation 98.3 05/10/22 06:50 ABG Base Excess -7.2 mmol/L (-2.0-2.0) L 05/10/22 06:50 Roly Test N/a 05/10/22 06:50 A-a O2 Gradient mmHg (5-10) 05/10/22 06:50 Hematocrit 35.4 % (37-47) L 05/10/22 06:50 Hgb O2 Saturation 96.5 % (95-100) 05/10/22 06:50 Carboxyhemoglobin 1.1 %THgb (0.4-20.1) 05/10/22 06:50 Methemoglobin 0.7 % (0.4-1.5) 05/10/22 06:50 Total Hemoglobin 11.6 g/dL (12-16) L 05/10/22 06:50 Sodium 127.0 mmol/L (131-143) L 05/10/22 06:50 Potassium 4.7 mmol/L (3.5-5.0) 05/10/22 06:50 Glucose 325.0 mg/dL (70-115) H 05/10/22 06:50 Ionized Calcium 1.2 mmol/L (1.1-1.4) 05/10/22 06:50 O2 Delivery Device Nc 05/10/22 06:50 O2 Liters/Min 3.0 % 05/10/22 06:50 Global Technical Writer ID Damien 05/10/22 06:50 Sodium 134 mmol/L (136-145) L 05/11/22 03:35 Potassium 5.3 mmol/L (3.5-5.1) H 05/11/22 03:35 Chloride 105 mmol/L (98-107) 05/11/22 03:35 Carbon Dioxide 16 mmol/L (22-29) L 05/11/22 03:35 Anion Gap 18.3 (5-19) 05/11/22 03:35 BUN 81 mg/dL (8-23) H 05/11/22 03:35 Creatinine 4.1 mg/dL (0.5-0.9) H 05/11/22 03:35 GFR Calculation 11.0 mL/min (90-130) L 05/11/22 03:35 Glucose 99 mg/dL (65-115) 05/11/22 03:35 POC Glucose 102 mg/dL (70-110) 05/11/22 14:57 Calculated Osmolality 302 mOsm/kg (285-295) H 05/11/22 03:35 Lactic Acid 2.1 mmol/L (0.5-2.2) 05/10/22 07:00 Lactic Acid (Sepsis) 1.4 mmol/L (0.5-2.2) 05/10/22 09:20 Uric Acid 7.2 mg/dL (2.4-5.7) H 05/10/22 20:20 Calcium 8.2 mg/dL (8.5-10.5) L 05/11/22 03:35 Phosphorus 5.1 mg/dL (2.5-4.5) H 05/11/22 03:35 Magnesium 1.8 mg/dL (1.7-2.3) 05/11/22 03:35 Total Bilirubin 0.3 mg/dL (0.15-1.2) 05/11/22 03:35 AST 101 U/L (0-32) H 05/11/22 03:35 ALT 63 U/L (0-33) H 05/11/22 03:35 Alkaline Phosphatase 87 U/L (35-105) 05/11/22 03:35 Ammonia 22 umol/L (11-51) 05/11/22 05:41 Creatine Kinase 160 U/L (26-192) 05/11/22 03:35 Troponin T Baseline 57 ng/L (0-10) H 05/10/22 07:00 Troponin T 120 Minute 71.57 ng/L (0-10) H 05/10/22 09:00 Delta Troponin T 14.57 ABS# (0-10) H* 05/10/22 09:00 Troponin T Hi Sens 6Hr 81.22 ng/L (0-10) H 05/10/22 13:20 Troponin T Hi Sens 6Hr Delta 24.22 ng/L (0-12) H* 05/10/22 13:20 Total Protein 4.4 g/dL (6.6-8.7) L D 05/11/22 03:35 Albumin 2.1 g/dL (3.5-5.2) L 05/11/22 03:35 Globulin 2.3 g/dL (1.3-4.6) 05/11/22 03:35 Lipase 26 U/L (13-60) 05/11/22 03:35 25-OH Vitamin D Total 24 ng/mL (30-100) L 05/11/22 03:35 TSH 4.55 uIU/mL (0.27-4.20) H 05/10/22 07:00 PTH Intact 132.2 pg/mL (15-65) H 05/11/22 03:35 Calcium (PTH Intact) 8.2 mg/dL (8.5-10.5) L 05/11/22 03:35 Hep Bs Antigen Non-reactive (Nonreactive) 05/10/22 20:20 Hep Bs Antibody 41.0 (11.5-1000) 05/10/22 20:20 Hepatitis C Antibody Non-reactive (Nonreactive) 05/10/22 20:20 Blood Type A Positive 05/10/22 07:00 Rho(D) Type Positive 05/10/22 07:00 Antibody Screen Negative 05/10/22 07:00 Radiology Impressions Renal Ultrasound 05/10/22 00:00 IMPRESSION: 1. LEFT kidney is not identified. No renal mass. Severe atrophy of the LEFT kidney has been previously described. 2. Normal RIGHT kidney. Head CT 05/10/22 09:06 IMPRESSION: 1. No evidence of intracranial hemorrhage 2. Low-attenuation change in the bilateral parieto-occipital subcortical white matter suspicious for posterior reversible encephalopathy syndrome. Recommend correlation with hypertension. This could be further evaluated with MRI or followed up with CT 3. Chronic lacunar infarcts in the basal ganglia. Notified Eyal Porras MD at 05/10/2022 10:19 AM. Chest X-Ray 05/10/22 16:23 IMPRESSION: A right IJ central venous catheter has been placed and terminates in the SVC. Faint medial right apical opacity has developed, which may be atelectasis. No pneumothorax is visualized. No other significant change. Abdomen/Pelvis CT 05/11/22 07:40 IMPRESSION: 1. Markedly decreased perfusion RIGHT kidney consistent with ischemia. Only a small residual area of residual perfusion. No significant flow visualized in the RIGHT main renal artery. Occluded short segment stent RIGHT renal artery origin. Small amount of residual collateral flow RIGHT kidney. 2. Wedge-shaped low-attenuation change in the spleen suspicious for splenic infarct. Small amount of fluid about the spleen. 3. Celiac and SMA origins remain patent. 4. Stable appearing aortic endograft with biiliac extension. Excluded aneurysm sac appears stable. Excluded aneurysm sac measures 3.0 x 3.4 CM. AP by transverse 5. Stable findings of acute pancreatitis with gastritis and duodenitis. 6. Hydropic gallbladder with mild gallbladder wall thickening and a small amount of pericholecystic fluid. No cholelithiasis. This may be reactive in relation to the pancreatitis. 7. Small amount of free fluid in the pelvis. Martins catheter. 8. Grade 1 anterolisthesis L5 on S1. Notified Eyal Porras MD at 05/11/2022 8:54 AM. Recent Clincial Data Last Vital Signs Temp 99.7 F H 05/11/22 12:35 Pulse 122 H 05/11/22 15:15 Resp 17 05/11/22 14:30 BP 119/68 05/11/22 14:30 Pulse Ox 93 05/11/22 14:30 O2 Del Method 05/11/22 14:30 O2 Flow Rate 2 05/11/22 14:30 Vital Signs Temp Pulse Resp BP Pulse Ox O2 Del Method O2 Flow Rate 05/11/22 15:15 122 H 05/11/22 14:30 116 H 17 119/68 93 Nasal Cannula 2 05/11/22 14:15 115 H 18 98/77 95 Nasal Cannula 2 05/11/22 14:00 113 H 18 130/87 95 Nasal Cannula 2 05/11/22 13:45 119 H 14 121/81 95 Nasal Cannula 2 05/11/22 13:30 115 H 14 124/94 94 Nasal Cannula 2 05/11/22 13:15 120 H 16 117/73 94 Nasal Cannula 2 05/11/22 13:00 117 H 16 132/82 93 Nasal Cannula 2 05/11/22 12:45 117 H 16 112/77 94 Nasal Cannula 2 05/11/22 14:08 114 H 18 95 Nasal Cannula 1 05/11/22 12:49 116 H 05/11/22 12:30 116 H 16 114/82 93 Nasal Cannula 2 05/11/22 12:15 108 H 15 139/73 91 Nasal Cannula 2 05/11/22 12:00 106 H 15 105/78 94 Nasal Cannula 2 05/11/22 12:35 99.7 F H 116 H 16 114/82 93 Nasal Cannula 2 05/11/22 11:45 100.0 F H 103 H 16 132/83 96 Nasal Cannula 2 05/11/22 11:43 14 05/11/22 10:15 145/80 95 Nasal Cannula 2 05/11/22 10:00 112 H 15 139/71 94 Nasal Cannula 2 05/11/22 09:45 107 H 14 123/74 95 Nasal Cannula 2 05/11/22 10:23 98.1 F 113 H 14 145/89 100 Simple Mask 10 05/11/22 09:30 106 H 15 129/76 95 Nasal Cannula 2 05/11/22 09:15 110 H 18 142/79 94 Nasal Cannula 2 05/11/22 09:00 112 H 14 128/68 95 Nasal Cannula 2 05/11/22 08:45 112 H 16 136/73 94 Nasal Cannula 2 05/11/22 08:30 114 H 16 139/74 91 Nasal Cannula 2 05/11/22 08:19 116 H 14 97 Nasal Cannula 2 05/11/22 07:45 104 H 14 99/75 95 Nasal Cannula 2 05/11/22 07:30 104 H 16 117/80 95 Nasal Cannula 2 05/11/22 07:15 111 H 17 134/88 95 Nasal Cannula 2 05/11/22 08:54 113 H 17 94 Nasal Cannula 1 05/11/22 07:00 112 H 16 126/77 94 05/11/22 06:45 111 H 18 121/95 95 05/11/22 06:30 102 H 15 120/85 95 05/11/22 06:15 100 15 117/97 95 05/11/22 06:00 102 H 15 134/77 95 05/11/22 05:45 109 H 19 H 140/74 96 05/11/22 05:30 100 15 136/81 96 05/11/22 05:15 100 15 133/76 95 05/11/22 05:00 100 16 125/70 96 05/11/22 04:45 99 16 112/78 95 05/11/22 06:00 112 H 05/11/22 05:48 16 Intake & Output/Weight 05/09/22 05/10/22 05/11/22 05/12/22 06:59 06:59 06:59 06:59 Intake Total 4101.067 / 4101.067 790.083 / 790.083 Output Total 0 / 0 Balance 4101.067 / 4101.067 790.083 / 790.083 Weight 54.431 kg 52.163 kg Vitals Last Vital Signs Temp 99.7 F H 05/11/22 12:35 Pulse 122 H 05/11/22 15:15 Resp 17 05/11/22 14:30 BP 119/68 05/11/22 14:30 Pulse Ox 93 05/11/22 14:30 O2 Del Method 05/11/22 14:30 O2 Flow Rate 2 05/11/22 14:30 TS Medications Medications Acetaminophen (Acetaminophen 325 Mg Tablet) 650 mg PO Q6H PRN PRN Reason: MILD PAIN Last Admin: 05/11/22 13:38 Dose: 650 mg Albuterol/Ipratropium (Ipratropium-Albuterol 3 Ml Neb) 3 ml INHALATION Q6H.RESP APOLONIA Last Admin: 05/11/22 14:08 Dose: 3 ml Aspirin (Aspirin 81 Mg Ec Tablet) 81 mg PO DAILY@0830 [facility] Atorvastatin Calcium (Atorvastatin 40 Mg Tablet) 40 mg PO DAILY APOLONIA Budesonide (Budesonide 0.5 Mg/2 Ml Neb) 0.5 mg INHALATION BID.RESPIRATORY APOLONIA Last Admin: 05/11/22 08:53 Dose: 0.5 mg Citalopram Hydrobromide (Citalopram 20 Mg Tablet) 40 mg PO DAILY@0830 [facility] Heparin Sodium (Porcine) (Heparin 5,000 Unit/Ml Inj 1 Ml) 0 unit IV PRN PRN; Protocol PRN Reason: Heparin weight-base protocol Hydralazine HCl (Hydralazine 20 Mg/Ml Inj 1 Ml) 10 mg IVP Q4H PRN PRN Reason: HYPERTENSION Last Admin: 05/10/22 13:38 Dose: 10 mg Piperacillin Sod/Tazobactam (Sod 3.375 gm/ Sodium Chloride) 50 mls @ 12.5 mls/hr IV Q12H [facility]; Protocol Last Infusion: 05/11/22 13:28 Dose: Infused Nicardipine/Sodium Chloride (Cardene) 20 mg in 200 mls @ 0 mls/hr IV .Q0M [facility]; Protocol Last Admin: 05/11/22 09:11 Dose: 1.5 mg/hr, 15 mls/hr Vancomycin HCl 750 mg/ Sodium (Chloride) 250 mls @ 250 mls/hr IV DIALYSIS [facility]; Protocol Last Admin: 05/11/22 13:39 Dose: 250 mls/hr Heparin Sodium/Sodium Chloride (Heparin Drip) 25,000 unit in 500 mls @ 0 mls/hr IV .Q0M [facility]; Protocol Levothyroxine Sodium (Levothyroxine 50 Mcg Tablet) 50 mcg PO DAILY [facility] Last Admin: 05/11/22 12:20 Dose: Not Given Methylprednisolone Sodium Succinate (Methylprednisolone Sod Succ 40 Mg/Ml Inj) 20 mg IVP Q12H [facility] Last Admin: 05/11/22 09:16 Dose: 20 mg Metoprolol Succinate (Metoprolol Succinate Er (24 Hr) 50 Mg Tablet) 50 mg PO BID@0830,2100 [facility] Morphine Sulfate (Morphine 4 Mg/Ml Sdv 1 Ml) 2 mg IVP Q2H PRN PRN Reason: SEVERE PAIN Last Admin: 05/11/22 05:48 Dose: 2 mg Ondansetron HCl (Ondansetron 2 Mg/Ml Sdv 2 Ml) 4 mg IVP Q6H PRN PRN Reason: NAUSEA AND VOMITING Last Admin: 05/10/22 20:09 Dose: 4 mg Pantoprazole Sodium (Pantoprazole 40 Mg Sdv) 40 mg IVP Q12H [facility] Last Admin: 05/11/22 09:18 Dose: 40 mg Discontinued Medications Albuterol/Ipratropium (Ipratropium-Albuterol 3 Ml Neb) 3 ml INHALATION Q6H [facility] Last Admin: 05/10/22 21:42 Dose: 3 ml Benzocaine (Cetylpyridinium Lozenge) 1 each MUCOUS MEM ONCE ONE Stop: 05/11/22 10:23 Last Admin: 05/11/22 12:45 Dose: Not Given Benzocaine (Cetylpyridinium Lozenge) 1 each MUCOUS MEM ONCE ONE Stop: 05/11/22 12:46 Last Admin: 05/11/22 12:46 Dose: 1 each Budesonide (Budesonide 0.5 Mg/2 Ml Neb) 0.5 mg INHALATION BID [facility] Last Admin: 05/10/22 21:42 Dose: 0.5 mg Dextrose (Dextrose 50% Syringe 50 Ml) Confirm Administered Dose 50 ml .ROUTE .STK-MED ONE Stop: 05/10/22 06:49 Last Admin: 05/10/22 06:53 Dose: 50 ml Fentanyl (Fentanyl 50 Mcg/Ml Inj 2ml) 50 mcg IVP ONCE ONE Stop: 05/10/22 15:43 Last Admin: 05/10/22 16:27 Dose: 50 mcg Haloperidol Lactate (Haloperidol Inj 5 Mg/Ml Inj 1 Ml) 1 mg IM NOW ONE Stop: 05/10/22 22:32 Last Admin: 05/10/22 22:38 Dose: 1 mg Heparin Sodium (Porcine) (Heparin, Porcine 1,000 Unit/Ml Inj 10 Ml) 0 unit HE ONCE ONE Stop: 05/11/22 08:46 Last Admin: 05/11/22 13:40 Dose: 10,000 unit Dextrose (D10w) 250 mls @ 100 mls/hr IV .Q2H30M [facility] Last Admin: 05/10/22 11:22 Dose: Not Given Piperacillin Sod/Tazobactam (Sod 3.375 gm/ Sodium Chloride) 50 mls @ 100 mls/hr IV ONCE ONE; Protocol Stop: 05/10/22 08:57 Last Infusion: 05/10/22 11:08 Dose: Infused Sodium Chloride (Sodium Chloride 0.9%) 500 mls @ 1,000 mls/hr IV .Q30M [facility] Last Admin: 05/10/22 20:28 Dose: Not Given Pantoprazole Sodium 40 mg/ (Sodium Chloride) 100 mls @ 20 mls/hr IV .Q5H [facility] Last Admin: 05/11/22 06:30 Dose: 8 mg/hr, 20 mls/hr Sodium Chloride (Sodium Chloride 0.9%) 1,000 mls @ 100 mls/hr IV .Q10H [facility] Last Infusion: 05/10/22 17:45 Dose: 0 mls/hr Sodium Chloride (Sodium Chloride 0.9% (100 Ml)) Confirm Administered Dose 100 mls @ as directed .ROUTE .[facility] ONE Stop: 05/10/22 10:59 Last Infusion: 05/10/22 17:45 Dose: 0 mls/hr Lactated Ringer's (Lactated Ringers) 1,000 mls @ 50 mls/hr IV .Q20H [facility] Last Infusion: 05/11/22 12:05 Dose: 0 mls/hr Vancomycin HCl 750 mg/ Sodium (Chloride) 250 mls @ 250 mls/hr IV Q48H [facility]; Protocol Lidocaine HCl (Xylocaine) Confirm Administered Dose 5 mls @ as directed .ROUTE .[facility] ONE Stop: 05/11/22 09:27 Sodium Chloride (Sodium Chloride 0.9%) 1,000 mls @ 30 mls/hr IV .Q24H [facility] Stop: 05/12/22 10:29 Last Admin: 05/11/22 13:31 Dose: Not Given Iohexol (Iohexol 350 Mg/Ml 500 Ml Btl (Per Ml)) 0 ml IV ONCE ONE Stop: 05/11/22 08:16 Last Admin: 05/11/22 08:16 Dose: 100 ml Lidocaine HCl (Lidocaine 1% Inj 20 Ml) 0.1 ml INTRADERMA PRN PRN PRN Reason: anesthetic prior to IV start Stop: 05/12/22 10:21 Lidocaine HCl (Lidocaine 2% Viscous 15 Ml Udc) 1 ml TOPICAL PRN PRN PRN Reason: Anesthetic prior to IV start Midazolam HCl (Midazolam 1 Mg/Ml Inj 2 Ml) 2 mg IVP ONCE ONE Stop: 05/10/22 15:43 Last Admin: 05/10/22 16:27 Dose: 2 mg Midazolam HCl (Midazolam 1 Mg/Ml Inj 2 Ml) 2 mg IVP Q5M PRN PRN Reason: Preop Anxiety Morphine Sulfate (Morphine 4 Mg/Ml Sdv 1 Ml) 2 mg IVP ONCE ONE Stop: 05/10/22 09:04 Last Admin: 05/10/22 09:21 Dose: 2 mg Morphine Sulfate (Morphine 4 Mg/Ml Sdv 1 Ml) 4 mg IVP Q4H PRN PRN Reason: SEVERE PAIN Last Admin: 05/10/22 11:16 Dose: 4 mg Morphine Sulfate (Morphine 4 Mg/Ml Sdv 1 Ml) 4 mg IVP Q2H PRN PRN Reason: SEVERE PAIN Ondansetron HCl (Ondansetron 2 Mg/Ml Sdv 2 Ml) 4 mg IVP ONCE ONE Stop: 05/10/22 09:04 Last Admin: 05/10/22 09:57 Dose: 4 mg Ondansetron HCl (Ondansetron 2 Mg/Ml Sdv 2 Ml) 4 mg IVP Q15M PRN PRN Reason: Nausea/Vomiting PACU PHASE II Pantoprazole Sodium (Pantoprazole 40 Mg Sdv) 80 mg IVP ONCE ONE Stop: 05/10/22 09:04 Last Admin: 05/10/22 09:58 Dose: 80 mg Pantoprazole Sodium (Pantoprazole 40 Mg Sdv) 40 mg IVP ONCE ONE Stop: 05/10/22 09:32 Last Admin: 05/10/22 09:59 Dose: Not Given Propofol (Propofol 10 Mg/Ml Sdv 20 Ml) Confirm Administered Dose 200 mg .ROUTE .STK-MED ONE Stop: 05/11/22 09:27 Allergies lisinopril Allergy (Severe, Verified 05/10/22 09:11) anaphylaxis Sulfa (Sulfonamide Antibiotics) Adverse Reaction (Intermediate, Verified 05/10/22 09:11) Itching, burning Home Medications fluticasone propionate 50 mcg/actuation nasal spray,suspension (Flonase Allergy Relief) 2 spray intranasal DAILY PRN Nasal Congestion 02/21/20 [History Confirmed 05/10/22] albuterol sulfate 2.5 mg/3 mL (0.083 %) solution for nebulization 2.5 mg (3 mL) inhalation QID PRN Shortness Of Breath 30 days #75 mL 05/15/20 [Rx Confirmed 05/10/22] epinephrine 0.3 mg/0.3 mL injection, auto-injector 0.3 mg IM Q10M PRN Allergic Reaction 10/16/20 [History Confirmed 05/10/22] bumetanide 1 mg tablet 1 mg PO DAILY 06/13/21 [History Confirmed 05/10/22] azithromycin 250 mg tablet 250 mg PO .COMPLEX COPD 90 days #45 tabs 11/25/21 [Rx Confirmed 05/10/22] revefenacin 175 mcg/3 mL solution for nebulization 175 mcg (3 mL) inhalation DAILY 30 days #90 mL 11/25/21 [Rx Confirmed 05/10/22] budesonide 0.5 mg/2 mL suspension for nebulization (Pulmicort) 0.5 mg (2 mL) inhalation BID 30 days #120 mL 01/06/22 [Rx Confirmed 05/10/22] formoterol fumarate 20 mcg/2 mL solution for nebulization (Perforomist) 2 ml inhalation Q12H 30 days #120 mL 01/06/22 [Rx Confirmed 05/10/22] ropinirole 1 mg tablet 1 mg PO DAILY@2099 30 days #30 tabs 01/06/22 [Rx Confirmed 05/10/22] cyclobenzaprine 5 mg tablet 5 mg PO TID PRN muscle spasm #10 tabs 03/28/22 [Rx Confirmed 05/10/22] bupropion HCl 150 mg 24 hr tablet, extended release (Wellbutrin XL) 150 mg PO QAM #30 tabs 03/31/22 [Rx Confirmed 05/10/22] buspirone 5 mg tablet 5 mg PO TID #90 tabs 03/31/22 [Rx Confirmed 05/10/22] citalopram 40 mg tablet 40 mg PO DAILY@829 30 days #30 tabs 03/31/22 [Rx Confirmed 05/10/22] hydroxyzine HCl 50 mg tablet 50 mg PO QID PRN anxiety #120 tabs 03/31/22 [Rx Confirmed 05/10/22] albuterol sulfate 90 mcg/actuation aerosol inhaler 2 puff inhalation 6XD PRN Shortness Of Breath #6.7 grams 04/05/22 [Rx Confirmed 05/10/22] aspirin 81 mg tablet,delayed release 81 mg PO DAILY@829 30 days #30 tabs 04/05/22 [Rx Confirmed 05/10/22] metoprolol succinate 50 mg tablet,extended release 24 hr 50 mg PO BID@829,2099 30 days #60 tabs 04/05/22 [Rx Confirmed 05/10/22] montelukast 10 mg tablet 10 mg PO DAILY@30 #30 tabs 04/05/22 [Rx Confirmed 05/10/22] nitroglycerin 0.4 mg sublingual tablet (Nitrostat) 0.4 mg sublingual Q5M PRN Chest Pain 30 days #30 tabs 04/05/22 [Rx Confirmed 05/10/22] omeprazole 20 mg capsule,delayed release 20 mg PO DAILY@829 30 days #30 caps 04/05/22 [Rx Confirmed 05/10/22] atorvastatin 40 mg tablet 30 mg PO DAILY 05/03/22 [History Confirmed 05/10/22] clonidine HCl 0.1 mg tablet 0.1 mg PO BID@ #180 tabs 05/03/22 [Rx Confirmed 05/10/22] isosorbide mononitrate 60 mg tablet,extended release 24 hr 60 mg PO DAILY@829 30 days #30 tabs 05/03/22 [Rx Confirmed 05/10/22] amlodipine 10 mg tablet 10 mg PO DAILY 05/10/22 [History Confirmed 05/10/22] arformoterol 15 mcg/2 mL solution for nebulization (Brovana) 2 ml inhalation BID #60 mL 05/10/22 [Rx] levothyroxine 50 mcg tablet 50 mcg PO DAILY 05/10/22 [History Confirmed 05/10/22] Discharge Plan Discharge Patient Disposition: Home Condition: Stable Prescriptions: No Action albuterol sulfate 2.5 mg /3 mL (0.083 %) solution for nebulization 2.5 mg INHALATION QID PRN (Reason: Shortness Of Breath) 30 Days Qty: 75 5RF epinephrine 0.3 mg/0.3 mL auto-injector 0.3 mg IM Q10M PRN (Reason: Allergic Reaction) Rx Instructions: for 2 doses revefenacin 175 mcg/3 mL solution for nebulization 175 mcg inhalation DAILY 30 Days Qty: 90 3RF azithromycin 250 mg tablet 250 mg PO .COMPLEX 90 Days Qty: 45 1RF Rx Instructions: 250 mg PO Tuesday; budesonide [Pulmicort] 0.5 mg/2 mL suspension for nebulization 0.5 mg inhalation BID 30 Days Qty: 120 4RF formoterol fumarate [Perforomist] 20 mcg/2 mL solution for nebulization 2 ml inhalation Q12H 30 Days Qty: 120 4RF ropinirole 1 mg tablet 1 mg PO DAILY@2099 30 Days Qty: 30 5RF bupropion HCl [Wellbutrin XL] 150 mg tablet extended release 24 hr 150 mg PO QAM Qty: 30 2RF buspirone 5 mg tablet 5 mg PO TID Qty: 90 2RF citalopram 40 mg tablet 40 mg PO DAILY@30 30 Days Qty: 30 2RF hydroxyzine HCl 50 mg tablet 50 mg PO QID PRN (Reason: anxiety) Qty: 120 2RF atorvastatin 40 mg tablet 30 mg PO DAILY clonidine HCl 0.1 mg tablet 0.1 mg PO BID@829,2099 Qty: 180 3RF isosorbide mononitrate 60 mg tablet extended release 24 hr 60 mg PO DAILY@829 30 Days Qty: 30 5RF albuterol sulfate 90 mcg/actuation HFA aerosol inhaler 2 puff INHALATION 6XD PRN (Reason: Shortness Of Breath) Qty: 6.7 5RF aspirin 81 mg tablet,delayed release (DR/EC) 81 mg PO DAILY@829 30 Days Qty: 30 5RF metoprolol succinate 50 mg tablet extended release 24 hr 50 mg PO BID@829,2099 30 Days Qty: 60 5RF montelukast 10 mg tablet 10 mg PO DAILY@829 Qty: 30 5RF nitroglycerin [Nitrostat] 0.4 mg tablet, sublingual 0.4 mg SUBLINGUAL Q5M PRN (Reason: Chest Pain) 30 Days Qty: 30 5RF omeprazole 20 mg capsule,delayed release(DR/EC) 20 mg PO DAILY@829 30 Days Qty: 30 5RF arformoterol [Brovana] 15 mcg/2 mL solution for nebulization 2 ml inhalation BID Qty: 60 0RF bumetanide 1 mg Tablet 1 mg PO DAILY fluticasone propionate [Flonase Allergy Relief] 50 mcg/actuation [place],Suspension 2 spray INTRANASAL DAILY PRN (Reason: Nasal Congestion) cyclobenzaprine 5 mg tablet 5 mg PO TID PRN (Reason: muscle spasm) Qty: 10 0RF amlodipine 10 mg tablet 10 mg PO DAILY levothyroxine 50 mcg tablet 50 mcg PO DAILY Discharge Orders: Transfer Out of Facility (Order); Ordered 05/11/22 Ordered By: Eyal Porras Referrals: Nancy Carrasco FNP-C [Primary Care Provider] - Patient Instructions: GI Discharge Instructions, Opioid Safety Transfer Attestations Time Spent in Transfer Care: greater than 30 min Status at Transfer: Cognitive status at transfer: cognitively intact; Behavioral status at transfer: cooperative; Quality Metrics Clinical Quality Measures [ No reported AMI, CVA or VTE this stay] Coding Level of Care Code Acute Dynamics Ax Developer for Chg Fwd Diagnoses GI bleed K92.2 Abdominal pain R10.9 Acute encephalopathy G93.40 Acute kidney injury N17.9 Anemia D64.9 Anemia type: unspecified type Metabolic acidosis E87.20 Thrombocytopenia D69.6 Leukocytosis D72.829 Hyponatremia E87.1 Dehydration E86.0 Hypoglycemia E16.2 Elevated troponin R77.8 COPD (chronic obstructive pulmonary disease) J44.9 COPD type: unspecified COPD
--- NOTE | 2022-05-11 16:42 | PM.DIACAT ---
Procedure Note: Procedure: Preoperative diagnosis: Acute renal failure requiring emergent dialysis Postoperative diagnosis: Same Procedure: Placement of Mahurkar catheter in the right femoral jugular vein Surgeon: Dr. Ward Petit, DO Anesthesia: Local Description of procedure: The patient's right groin was prepped and draped in a sterile manner.? The right femoral artery was palpated. 5 mL of 1% lidocaine was infiltrated at the site of planned entry, an introducer needle was used to access the right femoral vein using palpation.? Guidewire was passed through the introducer needle and the introducer needle was removed.? Serial dilators were passed over the guidewire after the skin incision was extended using 11 blade and Mahurkar catheter was then passed over the guidewire and the guidewire was removed.? The catheter was sutured to the skin using 2-0 Ethilon suture.? Sterile dressings were applied. 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
[2022-05-11] MEDS: heparin drip 25,000 UNIT/500 ML PREMIX 14.61 UNIT IV (16:44)
--- NOTE | 2022-05-11 17:24 | PC.NURSE ---
Verbal order from Dr. Porras to give 2000 units bolus instead of 2500 units for start of heparin drip.
[2022-05-11] MEDS: heparin 5,000 unit/mL INJ 1 mL IV (17:27)
[2022-05-11 17:46] LABS: Glucose Point of Care 114 mg/dL (70-110)
--- NOTE | 2022-05-11 19:20 | PC.NURSE ---
Spoke w Physician Dr. Porras called to inform this nurse patient has been accepted at [facility]. Accepting physician Dr. Peace. Patient to be transferred via [facility] per Dr. Porras. After speaking with Dr. Porras, this nurse called to update patient son Michael. Informed him that patient has been accepted at [facility]. At this time waiting to call report to receiving facility and schedule transport for patient.
--- NOTE | 2022-05-11 20:30 | PC.NURSE ---
Report Called report to [facility] ([phone]) patient going to unit [place] 3 bed 10. Report called to Virgil Andino, all questions answered at this time. After calling report, this nurse called [facility] to request transport for patient. [facility] estimated 55 min for response time from facility -2. Provided update to family regarding transport and accepting hospital unit/bed number. All questions answered at this time.
[2022-05-11] MEDS: metoprolol succinate ER (24 HR) 50 mg Tablet PO (21:21)
[2022-05-11 21:40] LABS: Glucose Point of Care 100 mg/dL (70-110)
--- NOTE | 2022-05-11 22:20 | PC.NURSE ---
Transfer Patient on 2LNC and oriented to self & situation at time of transfer. Heparin, Nicardipine and Zosyn infusing per protocol. Report given to flight nurse, all questions answered at this time. Patient loaded on stretcher and transferred to [facility] helicopter. All patient belongings taken with family, no belongings transferred with patient. Discharge packet provided to flight nurse.
[2022-05-12 16:04] LABS: Anti-Double Strand DNA AB <1 IU/mL; SS A Ro Sjogrens Antibody <1.0 NEG AI (<1.0 NEG); SS-B/LA IGG <1.0 NEG AI (<1.0 NEG)
[2022-05-13 12:22] LABS: Anti-streptolysin O <50 IU/mL (<200)
[2022-05-13 14:28] LABS: Glomerular Bsmt Membrane IGG <1.0 AI
[2022-05-13 16:17] LABS: Anti-Nuclear Antibody Screen NEGATIVE (NEGATIVE)
[2022-05-15 15:17] LABS: ANCA Screen NEGATIVE (NEGATIVE)
== END 2022-05-11 22:20 | disposition short-term general hospital (02) | DRG 698 ==
LOC: ER 09:35 → ICU 10:10
PROVIDERS: Internal Medicine Nephrology; Surgery; Admitting Provider Internal Medicine; Emergency Provider Family Medicine; PCP Nurse Practitioner Family; Visit Provider Internal Medicine
PROC: 0DJ08ZZ Inspection of Upper Intestinal Tract, Via Natural or Artificial Opening Endoscopic (ICD-10-PCS; CPT 43235; principal; 2022-05-11 11:30)
DX: N28.0 Ischemia and infarction of kidney (principal); K85.90 Acute pancreatitis without necrosis or infection, unspecified; G93.40 Encephalopathy, unspecified; I13.0 Hypertensive heart and chronic kidney disease with heart failure and stage 1 through stage 4 chronic kidney disease, or unspecified chronic kidney disease; N17.9 Acute kidney failure, unspecified; E87.20 Acidosis, unspecified; E87.1 Hypo-osmolality and hyponatremia; K29.50 Unspecified chronic gastritis without bleeding; B96.81 Helicobacter pylori [H. pylori] as the cause of diseases classified elsewhere; Z88.2 Allergy status to sulfonamides; I71.40 Abdominal aortic aneurysm, without rupture, unspecified; N18.30 Chronic kidney disease, stage 3 unspecified; Z90.5 Acquired absence of kidney; J43.9 Emphysema, unspecified; F32.A Depression, unspecified; K21.9 Gastro-esophageal reflux disease without esophagitis; E78.00 Pure hypercholesterolemia, unspecified; E03.9 Hypothyroidism, unspecified; M81.0 Age-related osteoporosis without current pathological fracture; I73.9 Peripheral vascular disease, unspecified; G25.81 Restless legs syndrome; Z87.891 Personal history of nicotine dependence; K25.7 Chronic gastric ulcer without hemorrhage or perforation; E78.5 Hyperlipidemia, unspecified; Z99.81 Dependence on supplemental oxygen; I25.10 Atherosclerotic heart disease of native coronary artery without angina pectoris; D69.6 Thrombocytopenia, unspecified; E16.2 Hypoglycemia, unspecified; E86.0 Dehydration; D63.1 Anemia in chronic kidney disease; Z79.51 Long term (current) use of inhaled steroids
CPT/HCPCS: 36415; 36416; 36592; 36600; 43239; 51702; 70450; 71045; 74176; 74177; 76770; 76857; 80048; 80051; 80053; 82140; 82306; 82310; 82330; 82550; 82805; 82962; 83520; 83605; 83690; 83735; 83970; 84100; 84443; 84484; 84550; 85025; 85049; 86036; 86038; 86060; 86225; 86235; 86706; 86803; 86850; 86900; 87040; 87340; 88305; 90935; 93005; 93306; 94640; 96365; 96366; 96372; 96375; 99291; 99292; C1751; C9113; J0360; J1630; J1644; J2250; J2270; J2405; J2543; J2704; J2920; J3010; J3370; J7030; J7040; J7050; J7120; J7626; J7799; Q3014; Q9967

== ENCOUNTER 2022-06-12 14:22 | Inpatient (IN) | payer MEDICARE, MEDICAID, SELFPAY ==
[2022-06-12] VITALS (14 sets, daily range): BP systolic 120–160; BP diastolic 71–102; PULSE 73–88; RESP 13–22; TEMP 36.8; O2SAT 93–100; BMI 16.9
--- NOTE | 2022-06-12 14:38 | XRR_ITS ---
PROCEDURE INFORMATION: Exam: XR Chest Exam date and time: 06/12/2022 2:46 PM Age: 67 years old Clinical indication: Pain; Chest pressure; Additional info: Chest pain TECHNIQUE: Imaging protocol: Radiologic exam of the chest. Views: 1 view. COMPARISON: CR XR chest 1V portable [id number] 05/10/2022 4:37 PM FINDINGS: Tubes, catheters and devices: Right central venous catheter tip over the right atrium. Lungs: Emphysematous changes suspected. Left lower lobe atelectasis versus minimal infiltrate. Pleural spaces: Unremarkable. No pleural effusion. No pneumothorax. Heart/Mediastinum: Unremarkable. No cardiomegaly. Bones/joints: Unremarkable. XR/XR chest 1V portable [id number] IMPRESSION: 1. Left lower lobe atelectasis versus minimal infiltrate. 2. Emphysematous changes suspected.
--- NOTE | 2022-06-12 14:39 | ECG_ITS ---
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 Measurements Intervals [place] Rate: 83 P: 63 WY: 126 QRS: 82 QRSD: 65 T: 79 QT: 356 QTc: 419 Interpretive Statements SINUS RHYTHM LOW QRS VOLTAGE IN PRECORDIAL LEADS [QRS DEFLECTION < 1.0 mV IN CHEST LEADS] NONSPECIFIC T-WAVE ABNORMALITY Compared to ECG 05/10/2022 13:46:11 Low QRS voltage now present T-wave abnormality now present Electronically Signed On 06-13-2022 19:46:08 FOREIGN DIPLOMAT by Victor Hugo Gonzalez M.D. [id number]
--- NOTE | 2022-06-12 14:49 | W.ED.CHESTPA ---
HPI - Chest Pain General: Chief Complaint: Chest Pain Stated Complaint: CHEST PAIN ; SOB Time Seen by Provider: 06/12/22 14:27 Source: patient Mode of arrival: ambulatory History of Present Illness: 67-year-old female presents emergency room with complaint of shortness of breath and chest pain while getting dialysis today. Able to get 150 mL off with dialysis uses 1 hour into her run. She began having chest discomfort. She has a history of severe COPD she previously had an abdominal aortic aneurysm that was repaired. Subsequently she had some complications her renal arteries they were stented but these were compromised and she was put on dialysis. She has Nitropaste in place and was given sublingual nitro and aspirin in route. She is not currently having any chest pain. No recent cough cold symptoms. In late April she developed complications that ultimately led to her having to go onto dialysis she is currently getting it through a tunneled dialysis port in the right subclavian. She did have a little orthopnea yesterday and last evening prior to dialysis. MD complaint: chest pain Onset (ago): minute(s) Timing of current episode: episodic Onset: during rest (While running dialysis) Pain location: left chest Pain radiation: none Severity: mild Quality: tightness, aching and heaviness Relieving factors: nitroglycerin Exacerbating factors: nothing Associated symptoms: Deny abdominal pain, diaphoresis, dyspnea, fever(s), leg edema, nausea, palpitations, sense of impending doom, syncope or vomiting Treatment prior to arrival: none Review of Systems Const: Reports: fatigue and malaise; Denies: fever(s), chills or diaphoresis ENMT: Denies: throat pain, ear or mastoid pain, nasal discharge or nasal congestion Card: Reports: chest pain, edema and swelling of feet/ankles; Denies: palpitations, irregular heart rhythm or syncope Resp: Reports: non-productive cough; Denies: dyspnea GI: Denies: abdominal pain, nausea or vomiting Skin/Breast: Denies: rash or pruritus PFS ED PFSH: Medical History AAA (abdominal aortic aneurysm) 4.1 x 4.4 x 5.7 cm 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 Anemia Atypical chest pain Brain aneurysm Chronic kidney disease CKD stage III, solitary kidney Chronic migraine without aura, intractable, with status migrainosus Congestive heart failure COPD (chronic obstructive pulmonary disease) Depression Endoleak post (EVAR) endovascular aneurysm repair GERD (gastroesophageal reflux disease) History of stent insertion of renal artery Hypercholesteremia Hypertension Hypertensive urgency Resolved Hypothyroidism Inguinal swelling Normal colonoscopy Osteoporosis Peripheral vascular disease Psychiatric care Restless leg Solitary kidney Surgical History H/O: hysterectomy History of renal stent Herculink stent History of repair of aneurysm of abdominal aorta using endovascular stent graft Hx of tonsillectomy S/P appendectomy Family History Mother CAD (coronary artery disease) Chronic kidney disease (CKD) Dementia Stroke Father CAD (coronary artery disease) Cancer Diabetes Brother CAD (coronary artery disease) Cancer Lung disease Grandfather Cancer Grandmother Diabetes Family/Other Lung disease Suicide Other Hypertension Denies family history of Clotting disorder Anesthesia complication Bleeding disorder Social History Smoking and tobacco status: former smoker Quit status (tobacco): has quit using tobacco Year quit tobacco: 2005 - PPD x 35 Years Former quit date comment: Started at age 18 Second hand smoke exposure: No Smoking risk assessment/counseling performed?: No Alcohol intake: never Desire information about alcohol rehabilitation?: No Counseling given: No Desire information about substance/drug rehabilitation?: No Counseling given: No Adopted: No Caregiver/support person: No Lives independently: Yes Household members: family and children Housing: House Marital status: / Marital status details: 2005 Number of children: 12 Number of grandchildren: 4 Highest education level completed: Master's Degree Education level details: Criminal Justice service: No Current occupational status: disabled Current occupational exposures/hazards: No Pets and animals: Yes Pets & animals: cat(s), dog(s) and farm animals Farm Animals: cattle History of recent travel: No Leisure activites: reading and other Leisure activities details: watch TV Sexually active: No Current gender identity: Female 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 [employer] Special yudy needs: No Agree to transfusion: Yes Financial difficulty paying for basics: Somewhat Hard Female Reproductive History: Date of last menstrual period: 10/21/20 Para: 0 Spontaneous abortions: Yes Physical Exam Const: GENERAL APPEARANCE: cooperative and comfortable ORIENTATION/CONSCIOUSNESS: Yes awake, Yes oriented to person, Yes oriented to place and Yes oriented to time HENMT: COMMON NORMALS: normocephalic, atraumatic and hearing grossly normal bilaterally HEAD & SCALP: normocephalic and atraumatic Resp: COMMON NORMALS: normal respiratory effort, No retractions, No use of accessory muscles and clear to auscultation bilaterally AUSCULTATION: clear to auscultation bilaterally Cardio: COMMON NORMALS: regular rate, regular rhythm and No murmurs present (Cardio) RATE: regular rate RHYTHM: regular rhythm GI: COMMON NORMALS: Soft to palpation and No hepatosplenomegaly present AUSCULTATION: Yes normoactive bowel sounds PALPATION: Yes Soft to palpation, No Tenderness to palpation present (GI), No Guarding due to palpation present (GI) and Yes No hepatosplenomegaly present Extremity: COMMON NORMALS: normal to inspection, capillary refill normal, no clubbing, cyanosis or edema, no calf tenderness and no pedal edema Neuro: SENSORIUM/ORIENTATION: Yes oriented to person, Yes oriented to place and Yes oriented to time Skin: COMMON NORMALS: no rashes or lesions noted GENERAL SKIN EXAM: no rashes or lesions noted Course Vital Signs: Vital signs: Vital Signs Temperature 98.6 F 06/13/22 07:11 Pulse Rate 80 06/13/22 08:45 Respiratory Rate 16 06/13/22 08:45 Blood Pressure 154/85 06/13/22 08:55 Pulse Oximetry 100 06/13/22 08:45 Oxygen Delivery Me thod 06/13/22 08:45 Oxygen Flow Rate 2 06/13/22 08:45 MDM - Chest Pain Medical Decision Making Troponin is markedly elevated I suspect that is due to her end-stage renal disease but she had an episode of chest pain relieved by nitro. Additionally she did not receive much of her regular dialysis run her next scheduled date would be Tuesday do not believe she will be able to make it until then she is already been developing some orthopnea symptoms. We will place her in observation complete the rule out and likely will need to complete her run of dialysis discussed with hospitalist orders written Medical Records I reviewed the patient's medical records. Lab Data I reviewed the patient's lab results. 06/12/22 15:27 06/12/22 15:27 Radiology Impressions Chest X-Ray 06/12/22 14:38 IMPRESSION: 1. Left lower lobe atelectasis versus minimal infiltrate. 2. Emphysematous changes suspected. Laboratory Results WBC 8.0 10^3/uL (4.0-10.0) 06/12/22 15: RBC 3.54 10^6/uL (4.1-5.3) L 06/12/22 15: Hgb 9.6 g/dL (11.5-15.3) L 06/12/22 15: Hct 30.8 % (37.0-47.0) L 06/12/22 15: MCV 87.0 fl (81-99) 06/12/22 15: MCH 27.1 pg (28.0-34.0) L 06/12/22 15: MCHC 31.2 g/dL (30.0-36.0) 06/12/22 15: RDW 15.7 % (12.1-15.1) H 06/12/22 15: Plt Count 158 10^3/cmm (130-400) 06/12/22 15: MPV 9.5 fL (7.4-10.4) 06/12/22 15: Neut % (Auto) 63.5 % 06/12/22 15: Lymph % (Auto) 29.5 % 06/12/22 15: Jerauld % (Auto) 5.4 % 06/12/22 15: Eos % (Auto) 0.0 % 06/12/22: Baso % (Auto) 0.5 % 06/12/22 15: Neut # (Auto) 5.09 10^3/uL (1.8-7.7) 06/12/22 15: Lymph # (Auto) 2.4 10^3/uL (0.8-4.8) 06/12/22: Jerauld # (Auto) 0.4 10^3/uL (0.2-0.9) 06/12/22 15: Eos # (Auto) 0.0 10^3/uL (0.0-0.8) 06/12/22: Baso # (Auto) 0.0 10^3/uL (0.0-0.1) 06/12/22 15:27 Nucleated RBC % (auto) 0 % 06/12/22 15: Nucleated RBCs # 0.0 /100WBC 06/12/22 15:27 Sodium 129 mmol/L (136-145) L 06/12/22 15:27 Potassium 3.8 mmol/L (3.5-5.1) 06/12/22 15: Chloride 96 mmol/L (98-107) L 06/12/22 15:27 Carbon Dioxide 27 mmol/L (22-29) 06/12/22 15:27 Anion Gap 9.8 (5-19) 06/12/22 15:27 BUN 6 mg/dL (8-23) L 06/12/22 15: Creatinine 2.7 mg/dL (0.5-0.9) H 06/12/22 15:27 GFR Calculation 17.7 mL/min (90-130) L 06/12/22 15: Glucose 65 mg/dL (65-115) 06/12/22 15: Calculated Osmolality 264 mOsm/kg (285-295) L 06/12/22 15:27 Calcium 8.0 mg/dL (8.5-10.5) L 06/12/22 15:27 Total Bilirubin 0.2 mg/dL (0.15-1.2) 06/12/22 15: AST 25 U/L (0-32) 06/12/22 15:27 ALT 8 U/L (0-33) 06/12/22 15: Alkaline Phosphatase 114 U/L (35-105) H 06/12/22 15:27 Troponin T Baseline 350 ng/L (0-10) H* 06/12/22 15:27 Troponin T 120 Minute 305.1 ng/L (0-10) H 06/12/22 17:33 Delta Troponin T -44.9 ABS# (0-10) L 06/12/22 17:33 Total Protein 5.5 g/dL (6.6-8.7) L 06/12/22 15:27 Albumin 2.1 g/dL (3.5-5.2) L 06/12/22 15:27 Globulin 3.4 g/dL (1.3-4.6) 06/12/22 15:27 Discharge Plan Discharge Patient Disposition: Admitted As Inpatient Admit Provider: Lex Landeros Clinical Impression: Chest pain, COPD (chronic obstructive pulmonary disease), Hypertension, Hyponatremia, History of stent insertion of renal artery, Elevated troponin, End-stage renal disease needing dialysis Condition: Stable Coding Level of Care Code ED Clerk Travel Reservations for Chg Fwd Exam Detailed
[2022-06-12 15:31] LABS: Basophils % 0.5 %; Hematocrit 30.8 % (37.0-47.0); Hemoglobin 9.6 g/dL (11.5-15.3); Lymphocytes # 2.4 10^3/uL (0.8-4.8); Lymphocytes % 29.5 %; Mean Corpuscular HGB Conc 31.2 g/dL (30.0-36.0); Mean Corpuscular Hemoglobin 27.1 pg (28.0-34.0); Mean Platelet Volume 9.5 fL (7.4-10.4); Monocytes # 0.4 10^3/uL (0.2-0.9); Monocytes % 5.4 %; Neutrophils # 5.09 10^3/uL (1.8-7.7); Neutrophils % 63.5 %; Nucleated Red Blood Cells % 0 %; Platelet Count 158 10^3/cmm (130-400); Red Blood Count 3.54 10^6/uL (4.1-5.3); Red Cell Distribution Width 15.7 % (12.1-15.1)
--- NOTE | 2022-06-12 15:40 | PC.NURSE ---
pt placed on continuous nibp, spo2, and cm
[2022-06-12 15:49] LABS: Alanine Aminotransferase 8 U/L (0-33); Albumin Level 2.1 g/dL (3.5-5.2); Alkaline Phosphatase 114 U/L (35-105); Anion Gap 9.8 (5-19); Aspartate Amino Transferase 25 U/L (0-32); Blood Urea Nitrogen 6 mg/dL (8-23); Carbon Dioxide 27 mmol/L (22-29); Chloride 96 mmol/L (98-107); Globulin 3.4 g/dL (1.3-4.6); Glomerular Filtration Rate 17.7 mL/min (90-130); Glucose 65 mg/dL (65-115); Osmolality Calculated 264 mOsm/kg (285-295); Potassium 3.8 mmol/L (3.5-5.1); Sodium 129 mmol/L (136-145); Total Bilirubin 0.2 mg/dL (0.15-1.2); Total Protein 5.5 g/dL (6.6-8.7)
[2022-06-12 16:04] LABS: Troponin(5th) Baseline 350 ng/L (0-10)
--- NOTE | 2022-06-12 16:39 | ECG_ITS ---
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 Measurements Intervals [place] Rate: 76 P: 68 [place]: 128 QRS: 76 QRSD: 64 T: 74 QT: 363 QTc: 410 Interpretive Statements SINUS RHYTHM LOW QRS VOLTAGE IN PRECORDIAL LEADS [QRS DEFLECTION < 1.0 mV IN CHEST LEADS] NONSPECIFIC T-WAVE ABNORMALITY Compared to ECG 06/12/2022 14:40:56 No significant changes Electronically Signed On 06-13-2022 19:58:22 STATIONS SUPERINTENDENT by Victor Hugo Gonzalez M.D. [id number]
[2022-06-12 17:58] LABS: Troponin 5 2HR Delta -44.9 ABS# (0-10)
[2022-06-12 17:59] LABS: Troponin 5 2HR 305.1 ng/L (0-10)
[2022-06-12] MEDS: enoxaparin 40 mg/0.4 mL Syringe SUBCUT (18:56)
--- NOTE | 2022-06-12 19:20 | PM.HP ---
Providers/Chief Complaint Primary Care Provider: HERBERT Masters Chief Complaint: CHEST PAIN ; SOB History of Present Illness Hali James is a 67 year old female with PMH h/o HTN, CAD, SARAH on worseing CKD Stage,recently started on H/D , s/p lt nephrectomy, COPD,AAA repair, hypothyroidism was brought in from her H/D center where she started having substernal chest pain pressure like radiating to her back and was accompined with SOB, she was 90 mins into her dialysis,denied any palpitation,nausea,vomitting,cough,currently complaining of orthopnea,no PND. upon arrival in the ER xary chest was done which showed: ?Left lower lobe atelectasis versus minimal infiltrate. EKG: SR, Non specific ST-T Waves Changes Pertinent Labs : WBC : 8 H&H : 04/09 PLT : 158 Na : 129 K: 3.8 BUN/SCR : 6/2.7 Troponin Trend : 350-309 In the ER Patient received lovenox 40 one dose as well as as well as apirin 325 and nitro paste. Review of Systems General: Reports: 10 or more systems reviewed and unremarkable except in HPI and below Const: Denies: fever(s), chills, body aches, change in appetite or diaphoresis Card: Reports: chest pain and orthopnea; Denies: palpitations, edema, swelling of feet/ankles or leg pain with exertion Resp: Reports: dyspnea; Denies: productive cough, wheezing or pain on inspiration GI: Denies: abdominal pain, nausea, vomiting, diarrhea or constipation : Denies: flank pain Musc: Denies: back pain, extremity pain or extremity swelling Neuro: Denies: headache(s), difficulty walking or confusion Medications/Allergies Home Medications Medication Instructions Recorded Confirmed Last Taken Type fluticasone propionate 50 2 spray intranasal DAILY PRN Nasal 02/21/20 06/12/22 12/10/20 History mcg/actuation nasal Congestion spray,suspension (Flonase Allergy Relief) albuterol sulfate 2.5 mg/3 mL 2.5 mg (3 mL) inhalation QID PRN 05/15/20 06/12/22 12/10/20 Rx (0.083 %) solution for nebulization Shortness Of Breath 30 days #75 mL epinephrine 0.3 mg/0.3 mL 0.3 mg IM Q10M PRN Allergic 10/16/20 06/12/22 Unknown History injection, auto-injector Reaction bumetanide 1 mg tablet 1 mg PO DAILY 06/13/21 06/12/22 06/12/22 History ropinirole 1 mg tablet 1 mg PO DAILY@2100 30 days #30 tabs 01/06/22 06/12/22 06/11/22 Rx buspirone 5 mg tablet 5 mg PO TID #90 tabs 03/31/22 06/12/22 06/12/22 Rx citalopram 40 mg tablet 40 mg PO DAILY@0830 30 days #30 03/31/22 06/12/22 06/12/22 Rx tabs hydroxyzine HCl 50 mg tablet 50 mg PO QID PRN anxiety #120 tabs 03/31/22 06/12/22 Unknown Rx albuterol sulfate 90 mcg/actuation 2 puff inhalation 6XD PRN 04/05/22 06/12/22 Unknown Rx aerosol inhaler Shortness Of Breath #6.7 grams aspirin 81 mg tablet,delayed 81 mg PO DAILY@08 30 days #30 04/05/22 06/12/22 06/12/22 Rx release tabs metoprolol succinate 50 mg 50 mg PO BID@ 30 days #60 04/05/22 06/12/22 06/12/22 Rx tablet,extended release 24 hr tabs montelukast 10 mg tablet 10 mg PO DAILY@0830 #30 tabs 04/05/22 06/12/22 06/12/22 Rx nitroglycerin 0.4 mg sublingual 0.4 mg sublingual Q5M PRN Chest 04/05/22 06/12/22 06/12/22 Rx tablet (Nitrostat) Pain 30 days #30 tabs omeprazole 20 mg capsule,delayed 20 mg PO DAILY@0830 30 days #30 04/05/22 06/12/22 06/12/22 Rx release caps atorvastatin 40 mg tablet 30 mg PO DAILY 05/03/22 06/12/22 06/12/22 History clonidine HCl 0.1 mg tablet 0.1 mg PO BID@ #180 tabs 05/03/22 06/12/22 06/12/22 Rx isosorbide mononitrate 60 mg 60 mg PO DAILY@0830 30 days #30 05/03/22 06/12/22 06/12/22 Rx tablet,extended release 24 hr tabs amlodipine 10 mg tablet 10 mg PO DAILY 05/10/22 06/12/22 06/12/22 History arformoterol 15 mcg/2 mL solution 2 ml inhalation BID #60 mL 05/10/22 06/12/22 06/12/22 Rx for nebulization (Brovana) levothyroxine 50 mcg tablet 50 mcg PO DAILY 05/10/22 06/12/22 06/12/22 History budesonide 0.5 mg/2 mL suspension 0.5 mg (2 mL) inhalation BID 30 06/07/22 06/12/22 06/12/22 Rx for nebulization (Pulmicort) days #120 mL sevelamer carbonate 0.8 gram oral 0.4 g PO TID 06/12/22 06/12/22 06/12/22 History powder packet Allergies Allergy/AdvReac Type Severity Reaction Status Date / Time lisinopril Allergy Severe anaphylaxis Verified 05/10/22 09:11 Sulfa (Sulfonamide AdvReac Intermediate Itching, Verified 05/10/22 09:11 Antibiotics) burning PFSH Acute PFSH: Medical History AAA (abdominal aortic aneurysm) 4.1 x 4.4 x 5.7 cm 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 Anemia Atypical chest pain Brain aneurysm Chronic kidney disease CKD stage III, solitary kidney Chronic migraine without aura, intractable, with status migrainosus Congestive heart failure COPD (chronic obstructive pulmonary disease) Depression Endoleak post (EVAR) endovascular aneurysm repair GERD (gastroesophageal reflux disease) History of stent insertion of renal artery Hypercholesteremia Hypertension Hypertensive urgency Resolved Hypothyroidism Inguinal swelling Normal colonoscopy Osteoporosis Peripheral vascular disease Psychiatric care Restless leg Solitary kidney Surgical History H/O: hysterectomy History of renal stent Herculink stent History of repair of aneurysm of abdominal aorta using endovascular stent graft Hx of tonsillectomy S/P appendectomy Family History Mother CAD (coronary artery disease) Chronic kidney disease (CKD) Dementia Stroke Father CAD (coronary artery disease) Cancer Diabetes Brother CAD (coronary artery disease) Cancer Lung disease Grandfather Cancer Grandmother Diabetes Family/Other Lung disease Suicide Other Hypertension Denies family history of Clotting disorder Anesthesia complication Bleeding disorder Social History Smoking and tobacco status: former smoker Quit status (tobacco): has quit using tobacco Year quit tobacco: 2005 - PPD x 35 Years Former quit date comment: Started at age 18 Second hand smoke exposure: No Smoking risk assessment/counseling performed?: No Alcohol intake: never Desire information about alcohol rehabilitation?: No Counseling given: No Desire information about substance/drug rehabilitation?: No Counseling given: No Adopted: No Caregiver/support person: No Lives independently: Yes Household members: family and children Housing: House Marital status: / Marital status details: 2005 Number of children: 12 Number of grandchildren: 4 Highest education level completed: Master's Degree Education level details: Criminal Justice service: No Current occupational status: disabled Current occupational exposures/hazards: No Pets and animals: Yes Pets & animals: cat(s), dog(s) and farm animals Farm Animals: cattle History of recent travel: No Leisure activites: reading and other Leisure activities details: watch TV Sexually active: No Current gender identity: Female 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/Restoration: [employer] Special yudy needs: No Agree to transfusion: Yes Financial difficulty paying for basics: Somewhat Hard Female Reproductive History: Date of last menstrual period: 10/21/20 Para: 0 Spontaneous abortions: Yes Vitals/I&O/Wt Last Vital Signs Pulse 73 06/12/22 18:30 Resp 13 06/12/22 18:30 BP 137/85 06/12/22 18:30 Pulse Ox 99 06/12/22 18:30 O2 Del Method 06/12/22 15:34 O2 Flow Rate 2 06/12/22 15:34 Weight last 48 hrs Weight 39.463 kg Physical Exam Const: COMMON NORMALS: patient oriented x3 HENMT: COMMON NORMALS: normocephalic and atraumatic HEAD & SCALP: normocephalic and atraumatic Resp: EFFORT & INSPECTION: Yes symmetric chest movement OTHER: Diminished air entry B/L Cardio: COMMON NORMALS: regular rate, regular rhythm, S1 normal heart sound present, S2 normal heart sound present, No gallops present (Cardio), No murmurs present (Cardio), No rub (Cardio) and Peripheral pulses 2+ throughout RATE: regular rate RHYTHM: regular rhythm HEART SOUNDS: S1 normal heart sound present and S2 normal heart sound present PERIPHERAL PULSES: Peripheral pulses 2+ throughout GI: COMMON NORMALS: Normal to inspection, nondistended, normoactive bowel sounds present, Soft to palpation, non-tender, No hepatosplenomegaly present and no masses AUSCULTATION: Yes normoactive bowel sounds PALPATION: Yes Soft to palpation and Yes No hepatosplenomegaly present RECTAL EXAM: deferred Extremity: COMMON NORMALS: no clubbing, cyanosis or edema and no pedal edema Data 06/12/22 15:27 06/12/22 15:27 A&P Assessment and plan (1) COPD with acute exacerbation: (2) NSTEMI (non-ST elevated myocardial infarction): (3) Hypothyroidism: Qualifiers: Hypothyroidism type: acquired Qualified Code(s): E03.9 - Hypothyroidism, unspecified (4) Chest pain: (5) Hypertension: Qualifiers: Hypertension type: essential hypertension Qualified Code(s): I10 - Essential (primary) hypertension (6) Status post endovascular aneurysm repair (EVAR): (7) Major depressive disorder, recurrent severe without psychotic features: Plan PMH h/o HTN, CAD, SARAH on worseing CKD Stage,recently started on H/D , s/p lt nephrectomy, COPD,AAA repair, hypothyroidism was brought in from her H/D center where she started having substernal chest pain pressure like radiating to her back and was accompined with SOB, she was 90 mins into her dialysis,denied any palpitation,nausea,vomitting,cough,currently complaining of orthopnea,no PND. Assessment : Chest pain NSTEMI likely Type II HTN SARAH on worseing CKD Stage,recently started on H/D H/O CAD H/O COPD H/O AAA Repair Hypothyroidism Plan : Monitor 6H Troponin Recent 2D Echo reviewed Will may need a limited 2D Echo Monitor Serial EKG Contonue Aspirin, statin, beta honorio, IMDUR, Nitro paste Continue Amlodipine, clonidine, Continue Duo nebs, budesonide Inhaler Possible Cardiology consult Renal Consult in am for Rotuine H/D Code Status Full code DVT PPX: On sc heparin. Attestations Medical Necessity Statement*: Patient needs to be in hospital for the management of chest pain. Anticipated LOS Greater then 2 midnights. Time Spent in Patient Care: Greater than 35 minutes (>than 50% of time spent in counselling and/or direct pt care on unit). Coding Level of Care Code Acute Instrument Mechanics Supervisor for Leann Fwd Exam Detailed Diagnoses COPD with acute exacerbation J44.1 NSTEMI (non-ST elevated myocardial infarction) I21.4 Hypothyroidism E03.9 Hypothyroidism type: acquired Chest pain R07.9 Hypertension I10 Hypertension type: essential hypertension Status post endovascular aneurysm repair (EVAR) Z98.890; Z86.79 Major depressive disorder, recurrent severe without psychotic features F33.2
--- NOTE | 2022-06-12 20:39 | ECG_ITS ---
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 Measurements Intervals [place] Rate: 77 P: 66 [place]: 131 QRS: 79 QRSD: 64 T: 72 QT: 362 QTc: 412 Interpretive Statements SINUS RHYTHM NONSPECIFIC T-WAVE ABNORMALITY Compared to ECG 06/12/2022 17:17:43 No significant changes Electronically Signed On 06-13-2022 19:57:41 FORM SETTER STEEL FORMS by Victor Hugo Gonzalez M.D. [email or web address] [facility], [facility] campusDataresolve [id number]
[2022-06-12] MEDS: ropinirole 1 mg Tablet PO (23:07)
[2022-06-12] MEDS: cloNIDine 0.1 mg Tablet PO (23:07)
[2022-06-12] MEDS: BuSPIRONE 10 mg Tablet 5 MG PO (23:08)
[2022-06-12] MEDS: nitroglycerin 1 gm/inch oint Pkt 1 INCH TOPICAL (23:08)
[2022-06-12] MEDS: metoprolol succinate ER (24 HR) 50 mg Tablet PO (23:09)
[2022-06-13] VITALS (16 sets, daily range): BP systolic 117–163; BP diastolic 71–92; PULSE 74–88; RESP 12–18; TEMP 36.4–37; O2SAT 93–100
[2022-06-13] MEDS: ipratropium-albuterol 3 mL Neb INHALATION ×4 (03:24→21:06)
[2022-06-13 04:07] LABS: Basophils % 0.6 %; Eosinophils # 0.2 10^3/uL (0.0-0.8); Eosinophils % 2.4 %; Hematocrit 25.1 % (37.0-47.0); Hemoglobin 7.9 g/dL (11.5-15.3); Lymphocytes # 2.3 10^3/uL (0.8-4.8); Lymphocytes % 34.5 %; Mean Corpuscular HGB Conc 31.5 g/dL (30.0-36.0); Mean Corpuscular Hemoglobin 27.5 pg (28.0-34.0); Mean Corpuscular Volume 87.5 fl (81-99); Mean Platelet Volume 10.4 fL (7.4-10.4); Monocytes # 0.4 10^3/uL (0.2-0.9); Monocytes % 6.7 %; Neutrophils # 3.61 10^3/uL (1.8-7.7); Neutrophils % 54.9 %; Nucleated Red Blood Cells % 0 %; Platelet Count 147 10^3/cmm (130-400); Red Blood Count 2.87 10^6/uL (4.1-5.3); Red Cell Distribution Width 15.9 % (12.1-15.1); White Blood Count 6.6 10^3/uL (4.0-10.0)
[2022-06-13 04:34] LABS: Alanine Aminotransferase 7 U/L (0-33); Albumin Level 1.9 g/dL (3.5-5.2); Alkaline Phosphatase 95 U/L (35-105); Aspartate Amino Transferase 23 U/L (0-32); Blood Urea Nitrogen 9 mg/dL (8-23); Calcium 7.9 mg/dL (8.5-10.5); Carbon Dioxide 28 mmol/L (22-29); Chloride 100 mmol/L (98-107); Glomerular Filtration Rate 13.6 mL/min (90-130); Glucose 68 mg/dL (65-115); Osmolality Calculated 275 mOsm/kg (285-295); Sodium 134 mmol/L (136-145); Total Bilirubin 0.2 mg/dL (0.15-1.2); Total Protein 4.9 g/dL (6.6-8.7)
[2022-06-13 04:36] LABS: Anion Gap 10.3 (5-19); Potassium 4.3 mmol/L (3.5-5.1)
[2022-06-13] MEDS: nitroglycerin 1 gm/inch oint Pkt 1 INCH TOPICAL ×3 (05:09→17:59)
[2022-06-13] MEDS: heparin 5,000 unit/mL INJ 1 mL 5000 UNIT SUBCUT ×2 (07:29→19:11)
[2022-06-13] MEDS: budesonide 0.5 mg/2 mL Neb INHALATION ×2 (08:43→21:07)
[2022-06-13] MEDS: amlodipine 10 mg Tablet PO (08:54)
[2022-06-13] MEDS: citalopram 20 mg Tablet 40 MG PO (08:54)
[2022-06-13] MEDS: levothyroxine 50 mcg Tablet PO (08:55)
[2022-06-13] MEDS: montelukast sodium 10 mg Tablet PO (08:55)
[2022-06-13] MEDS: aspirin 81 mg EC Tablet PO (08:55)
[2022-06-13] MEDS: cloNIDine 0.1 mg Tablet PO (08:55)
[2022-06-13] MEDS: metoprolol succinate ER (24 HR) 50 mg Tablet PO ×2 (08:55→20:55)
[2022-06-13] MEDS: pantoprazole DR 40 mg Tablet PO (08:55)
[2022-06-13] MEDS: atorvastatin 40 mg Tablet PO (08:55)
[2022-06-13] MEDS: isosorbide mononitrate ER 60 mg Tablet PO (08:55)
[2022-06-13] MEDS: BuSPIRONE 10 mg Tablet 5 MG PO ×2 (08:55→20:55)
--- NOTE | 2022-06-13 11:21 | PM.CONSULT ---
Providers/Reason For Consult Consulting Physician/Specialty*: carine aaron md / telenephrology Reason for Consult*: ESRD Requesting Physician: Lex Landeros MD Attending Physician: Lex Landeros MD Primary Care Provider: HERBERT Masters History of Present Illness History of Present Illness Hali James is a 67 year old female recent SARAH on CKD, CAD, HTN. 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 Pt was transferred to [facility]. unfortunately, she was not deemed a candidate for intervention and pt remains ESRd/ HD dependent. She also has h/o COPD and AAA repair. Pt was at dialysis yesterday and developed CP and sent to Hospital after 90 minutes of dialysis. She remains sob and renal is called for dialysis. Review of Systems Narrative: sob, cp, weak, CP, and sad about being dialysis dependent. rest of ROS is negative Medications/Allergies Home Medications Medication Instructions Recorded Confirmed Last Taken Type fluticasone propionate 50 2 spray intranasal DAILY PRN Nasal 02/21/20 06/12/22 12/10/20 History mcg/actuation nasal Congestion spray,suspension (Flonase Allergy Relief) albuterol sulfate 2.5 mg/3 mL 2.5 mg (3 mL) inhalation QID PRN 05/15/20 06/12/22 12/10/20 Rx (0.083 %) solution for nebulization Shortness Of Breath 30 days #75 mL epinephrine 0.3 mg/0.3 mL 0.3 mg IM Q10M PRN Allergic 10/16/20 06/12/22 Unknown History injection, auto-injector Reaction bumetanide 1 mg tablet 1 mg PO DAILY 06/13/21 06/12/22 06/12/22 History ropinirole 1 mg tablet 1 mg PO DAILY@2100 30 days #30 tabs 01/06/22 06/12/22 06/11/22 Rx buspirone 5 mg tablet 5 mg PO TID #90 tabs 03/31/22 06/12/22 06/12/22 Rx citalopram 40 mg tablet 40 mg PO DAILY@0830 30 days #30 03/31/22 06/12/22 06/12/22 Rx tabs hydroxyzine HCl 50 mg tablet 50 mg PO QID PRN anxiety #120 tabs 03/31/22 06/12/22 Unknown Rx albuterol sulfate 90 mcg/actuation 2 puff inhalation 6XD PRN 04/05/22 06/12/22 Unknown Rx aerosol inhaler Shortness Of Breath #6.7 grams aspirin 81 mg tablet,delayed 81 mg PO DAILY@0830 30 days #30 04/05/22 06/12/22 06/12/22 Rx release tabs metoprolol succinate 50 mg 50 mg PO BID@0830,2100 30 days #60 04/05/22 06/12/22 06/12/22 Rx tablet,extended release 24 hr tabs montelukast 10 mg tablet 10 mg PO DAILY@0830 #30 tabs 04/05/22 06/12/22 06/12/22 Rx nitroglycerin 0.4 mg sublingual 0.4 mg sublingual Q5M PRN Chest 04/05/22 06/12/22 06/12/22 Rx tablet (Nitrostat) Pain 30 days #30 tabs omeprazole 20 mg capsule,delayed 20 mg PO DAILY@0830 30 days #30 04/05/22 06/12/22 06/12/22 Rx release caps atorvastatin 40 mg tablet 30 mg PO DAILY 05/03/22 06/12/22 06/12/22 History clonidine HCl 0.1 mg tablet 0.1 mg PO BID@0830,2100 #180 tabs 05/03/22 06/12/22 06/12/22 Rx isosorbide mononitrate 60 mg 60 mg PO DAILY@0830 30 days #30 05/03/22 06/12/22 06/12/22 Rx tablet,extended release 24 hr tabs amlodipine 10 mg tablet 10 mg PO DAILY 05/10/22 06/12/22 06/12/22 History arformoterol 15 mcg/2 mL solution 2 ml inhalation BID #60 mL 05/10/22 06/12/22 06/12/22 Rx for nebulization (Brovana) levothyroxine 50 mcg tablet 50 mcg PO DAILY 05/10/22 06/12/22 06/12/22 History budesonide 0.5 mg/2 mL suspension 0.5 mg (2 mL) inhalation BID 30 06/07/22 06/12/22 06/12/22 Rx for nebulization (Pulmicort) days #120 mL sevelamer carbonate 0.8 gram oral 0.4 g PO TID 06/12/22 06/12/22 06/12/22 History powder packet Allergies Allergy/AdvReac Type Severity Reaction Status Date / Time lisinopril Allergy Severe anaphylaxis Verified 05/10/22 09:11 Sulfa (Sulfonamide AdvReac Intermediate Itching, Verified 05/10/22 09:11 Antibiotics) burning Current Medications Generic Name Dose Route Start Last Admin Trade Name Freq PRN Reason Stop Dose Admin Albuterol/Ipratropium 3 ml 06/12/22 20:00 06/13/22 08:43 Ipratropium-Albuterol 3 Ml Neb INHALATION 3 ml Q6H.RESP APOLONIA Administration Amlodipine Besylate 10 mg 06/13/22 09:00 06/13/22 08:54 Amlodipine 10 Mg Tablet PO 10 mg DAILY APOLONIA Administration Aspirin 81 mg 06/13/22 08:30 06/13/22 08:55 Aspirin 81 Mg Ec Tablet PO 81 mg DAILY@0830 APOLONIA Administration Atorvastatin Calcium 40 mg 06/13/22 09:00 06/13/22 08:55 Atorvastatin 40 Mg Tablet PO 40 mg DAILY APOLONIA Administration Budesonide 0.5 mg 06/12/22 20:00 06/13/22 08:43 Budesonide 0.5 Mg/2 Ml Neb INHALATION 0.5 mg BID.RESPIRATORY APOLONIA Administration Bumetanide 1 mg 06/13/22 09:00 06/13/22 08:54 Bumetanide 1 Mg Tablet PO Not Given DAILY APOLONIA Buspirone HCl 5 mg 06/12/22 21:00 06/13/22 08:55 Buspirone 10 Mg Tablet PO 5 mg TID APOLONIA Administration Citalopram Hydrobromide 40 mg 06/13/22 08:30 06/13/22 08:54 Citalopram 20 Mg Tablet PO 40 mg DAILY@0830 APOLONIA Administration Clonidine HCl 0.1 mg 06/12/22 21:00 06/13/22 08:55 Clonidine 0.1 Mg Tablet PO 0.1 mg BID@0830,2100 APOLONIA Administration Heparin Sodium (Porcine) 5,000 unit 06/13/22 07:00 06/13/22 07:29 Heparin 5,000 Unit/Ml Inj 1 Ml SUBCUT 5,000 unit Q12H APOLONIA Administration Isosorbide Mononitrate 60 mg 06/13/22 08:30 06/13/22 08:55 Isosorbide Mononitrate Er 60 Mg Tablet PO 60 mg DAILY@0830 APOLONIA Administration Levothyroxine Sodium 50 mcg 06/13/22 09:00 06/13/22 08:55 Levothyroxine 50 Mcg Tablet PO 50 mcg DAILY APOLONIA Administration Metoprolol Succinate 50 mg 06/12/22 21:00 06/13/22 08:55 Metoprolol Succinate Er (24 Hr) 50 Mg Tablet PO 50 mg BID@0830,2100 APOLONIA Administration Montelukast Sodium 10 mg 06/13/22 08:30 06/13/22 08:55 Montelukast Sodium 10 Mg Tablet PO 10 mg DAILY@0830 APOLONIA Administration Nitroglycerin 1 inch 06/12/22 22:00 06/13/22 10:37 Nitroglycerin 1 Gm/Inch Oint Pkt TOPICAL 1 inch Q6H APOLONIA Administration Pantoprazole Sodium 40 mg 06/13/22 09:00 06/13/22 08:[address] 40 Mg Tablet PO 40 mg DAILY APOLONIA Administration Ropinirole HCl 1 mg 06/12/22 21:00 06/12/22 23:07 Ropinirole 1 Mg Tablet PO 1 mg DAILY@2100 APOLONIA Administration PFSH Acute PFSH: Medical History AAA (abdominal aortic aneurysm) 4.1 x 4.4 x 5.7 cm 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 Anemia Atypical chest pain Brain aneurysm Chronic kidney disease CKD stage III, solitary kidney Chronic migraine without aura, intractable, with status migrainosus Congestive heart failure COPD (chronic obstructive pulmonary disease) Depression [place]oleak post (EVAR) endovascular aneurysm repair GERD (gastroesophageal reflux disease) History of stent insertion of renal artery Hypercholesteremia Hypertension Hypertensive urgency Resolved Hypothyroidism Inguinal swelling Normal colonoscopy Osteoporosis Peripheral vascular disease Psychiatric care Restless leg Solitary kidney Surgical History H/O: hysterectomy History of renal stent Herculink stent History of repair of aneurysm of abdominal aorta using endovascular stent graft Hx of tonsillectomy S/P appendectomy Family History Mother CAD (coronary artery disease) Chronic kidney disease (CKD) Dementia Stroke Father CAD (coronary artery disease) Cancer Diabetes Brother CAD (coronary artery disease) Cancer Lung disease Grandfather Cancer Grandmother Diabetes Family/Other Lung disease Suicide Other Hypertension Denies family history of Clotting disorder Anesthesia complication Bleeding disorder Social History Smoking and tobacco status: former smoker Quit status (tobacco): has quit using tobacco Year quit tobacco: 2005 - PPD x 35 Years Former quit date comment: Started at age 18 Second hand smoke exposure: No Smoking risk assessment/counseling performed?: No Alcohol intake: never Desire information about alcohol rehabilitation?: No Counseling given: No Desire information about substance/drug rehabilitation?: No Counseling given: No Adopted: No Caregiver/support person: No Lives independently: Yes Household members: family and children Housing: House Marital status: / Marital status details: 2005 Number of children: 12 Number of grandchildren: 4 Highest education level completed: Master's Degree Education level details: Criminal Justice service: No Current occupational status: disabled Current occupational exposures/hazards: No Pets and animals: Yes Pets & animals: cat(s), dog(s) and farm animals Farm Animals: cattle History of recent travel: No Leisure activites: reading and other Leisure activities details: watch TV Sexually active: No Current gender identity: Female Yudy/Protestant: [employer] Special yudy needs: No Agree to transfusion: Yes Financial difficulty paying for basics: Somewhat Hard Female Reproductive History: Date of last menstrual period: 10/21/20 Para: 0 Spontaneous abortions: Yes Vitals/I&O/Wt Last Vital Signs Temp 98.6 F 06/13/22 07:11 Pulse 80 06/13/22 08:45 Resp 16 06/13/22 08:45 BP 154/85 06/13/22 08:55 Pulse Ox 100 06/13/22 08:45 O2 Del Method 06/13/22 08:45 O2 Flow Rate 2 06/13/22 08:45 06/12/22 06/13/22 06/13/22 22:59 06:59 14:59 Intake Total 50 / 50 120 / 120 Balance 50 / 50 120 / 120 Weight last 48 hrs Weight 39.463 kg Physical Exam Narrative: in bed on nc 02 vs noted heent- nc/at, eomi neck supple lungs basal crackles heart reg abd soft, nt, nd, + bs ext 1+ edema access rt IJ Permacath neuro- a,a, o x 3 Data 06/13/22 03:30 06/13/22 03:30 A&P Assessment and plan (1) ESRD (end stage renal disease): seen and examined w/ RN- telehealth visit -pt consents to telemedicine Plan 66 yr old female w/ AMS, h/o nephrectomy, htn, COPD, CAD, AAA repair, hypothyroidism. ? Pt recently admitted w/ SARAH and severe HTN. Since then she has been dialysis dependent. Pt here w/ CP on HD yesterday 1. SARAH-Please try to get [facility] medical records -pt has only 1 kidney and did not have perfusion to her right kidney on CT scan here last month -e has since been dialysis dependent -repeat HD now as sob -hep serologies neg 2. CP and SOB on HD monitor for a dialyzer reaction 3. CKD- baseline cr has been rising over last 6 months prior to HD initiation- cr was from 1.2- 1.7 mg/dl- can be from nephrectomy of atrophic kidney and htn 4. hyponatremia - monitor w/ dialysis 5. htn- dec meds. remove fluids on dialysis 6. anemia- check iron studies 7. renal bone mineral metabolism- check phos and pth Consult Attestations Medical Necessity Statement: per medicine, cp, esrd, sob Time Spent in Patient Care: Greater than 35 minutes (>than 50% of time spent in counselling and/or direct pt care on unit). Coding Level of Care Code Acute Instrument Repair Technician for g Fwd Diagnoses ESRD (end stage renal disease) N18.6
[2022-06-13 12:07] LABS: Uric Acid 2.6 mg/dL (2.4-5.7)
[2022-06-13 12:15] LABS: Hepatitis B Surface AB 84.9 (11.5-1000); Hepatitis B Surface Antigen Non-Reactive (Nonreactive); Hepatitis C Virus Antibody Non-Reactive (Nonreactive)
--- NOTE | 2022-06-13 13:22 | P.PN_ITS ---
Subjective Subjective: Patient was seen and examined this morning while she was undergoing dialysis, she denied any chest pain shortness of breath.Her other vitals and labs have been reviewed. Medications: Medication Review Details: Generic Name Dose Route Start Last Admin Trade Name Marcell PRN Reason Stop Dose Admin Albuterol/Ipratrop ium 3 ml 06/12/22 20:00 06/13/22 08:43 Ipratropium-Albu terol 3 Ml Neb INHALATION 3 ml Q6H.RESP APOLONIA Administration Amlodipine Besylat e 10 mg 06/13/22 09:00 06/13/22 08:54 Amlodipine 10 Mg Tablet PO 10 mg DAILY APOLONIA Administration Aspirin 81 mg 06/13/22 08:30 06/13/22 08:55 Aspirin 81 Mg Ec Tablet PO 81 mg DAILY@0830 APOLONIA Administration Atorvastatin Calci um 40 mg 06/13/22 09:00 06/13/22 08:55 Atorvastatin 40 Mg Tablet PO 40 mg DAILY APOLONIA Administration Budesonide 0.5 mg 06/12/22 20:00 06/13/22 08:43 Budesonide 0.5 M g/2 Ml Neb INHALATION 0.5 mg BID.RESPIRATORY S [facility] Administration Bumetanide 1 mg 06/13/22 09:00 06/13/22 08:54 Bumetanide 1 Mg Tablet PO Not Given DAILY [facility] Buspirone HCl 5 mg 06/12/22 21:00 06/13/22 08:55 Buspirone 10 Mg Tablet PO 5 mg TID APOLONIA Administration Citalopram Hydrobr omide 40 mg 06/13/22 08:30 06/13/22 08:54 Citalopram 20 Mg Tablet PO 40 mg DAILY@0830 APOLONIA Administration Heparin Sodium (Po rcine) 5,000 unit 06/13/22 07:00 06/13/22 07:29 Heparin 5,000 Un it/Ml Inj 1 Ml SUBCUT 5,000 unit Q12H APOLONIA Administration Isosorbide Mononit rate 60 mg 06/13/22 08:30 06/13/22 08:55 Isosorbide [place] itrate Er 60 Mg Ta blet PO 60 mg DAILY@0830 APOLONIA Administration Levothyroxine Sodi um 50 mcg 06/13/22 09:00 06/13/22 08:55 Levothyroxine 50 Mcg Tablet PO 50 mcg DAILY APOLONIA Administration Metoprolol Succina te 50 mg 06/12/22 21:00 06/13/22 08:55 Metoprolol Succi libertad Er (24 Hr) 50 Mg Tablet PO 50 mg BID@0830,2100 APOLONIA Administration Montelukast Sodium 10 mg 06/13/22 08:30 06/13/22 08:55 Montelukast Sodi um 10 Mg Tablet PO 10 mg DAILY@0830 APOLONIA Administration Nitroglycerin 1 inch 06/12/22 22:00 06/13/22 10:37 Nitroglycerin 1 Gm/Inch Oint Pkt TOPICAL 1 inch Q6H APOLONIA Administration Pantoprazole Sodiu m 40 mg 06/13/22 09:00 06/13/22 08:[address] 40 Mg Tablet PO 40 mg DAILY APOLONIA Administration Ropinirole HCl 1 mg 06/12/22 21:00 06/12/22 23:07 Ropinirole 1 Mg Tablet PO 1 mg DAILY@2100 APOLONIA Administration Vitals/I&O/Wt Last Vital Signs Temp 98.6 F 06/13/22 07:11 Pulse 79 06/13/22 12:31 Resp 12 06/13/22 12:31 BP 141/72 06/13/22 12:31 Pulse Ox 97 06/13/22 12:31 O2 Del Method 06/13/22 08:45 O2 Flow Rate 2 06/13/22 08:45 06/12/22 06/13/22 06/13/22 22:59 06:59 14:59 Intake Total 50 / 50 195 / 195 Balance 50 / 50 195 / 195 Weight last 48 hrs Weight 39.463 kg Physical Exam Const: COMMON NORMALS: patient oriented x3 HENMT: COMMON NORMALS: normocephalic and atraumatic HEAD & SCALP: normocephalic and atraumatic Resp: COMMON NORMALS: normal respiratory effort, No retractions, No use of accessory muscles and clear to auscultation bilaterally EFFORT & INSPECTION: Yes symmetric chest movement AUSCULTATION: clear to auscultation bilaterally OTHER: Diminished air entry B/L Cardio: COMMON NORMALS: regular rate, regular rhythm, S1 normal heart sound present, S2 normal heart sound present, No gallops present (Cardio), No murmurs present (Cardio), No rub (Cardio) and Peripheral pulses 2+ throughout RATE: regular rate RHYTHM: regular rhythm HEART SOUNDS: S1 normal heart sound present and S2 normal heart sound present PERIPHERAL PULSES: Peripheral pulses 2+ throughout GI: COMMON NORMALS: Normal to inspection, nondistended, normoactive bowel sounds present, Soft to palpation, non-tender, No hepatosplenomegaly present and no masses AUSCULTATION: Yes normoactive bowel sounds PALPATION: Yes Soft to palpation and Yes No hepatosplenomegaly present RECTAL EXAM: deferred Extremity: COMMON NORMALS: no clubbing, cyanosis or edema and no pedal edema Neuro: COMMON NORMALS: patient oriented x3 Data 06/13/22 03:30 06/13/22 03:30 A&P Assessment and plan (1) COPD with acute exacerbation: (2) NSTEMI (non-ST elevated myocardial infarction): (3) Hypothyroidism: Qualifiers: Hypothyroidism type: acquired Qualified Code(s): E03.9 - Hypothyroidism, unspecified (4) Chest pain: (5) Hypertension: (6) Status post endovascular aneurysm repair (EVAR): (7) Major depressive disorder, recurrent severe without psychotic features: Plan PMH h/o HTN, CAD, SARAH on worseing CKD Stage,recently started on H/D , s/p lt nephrectomy, and recent embolic disease to rt SURI Pt was transferred to [facility]? unfortunately, she was not deemed a candidate for intervention,COPD,AAA repair, hypothyroidism was brought in from her H/D center where she started having substernal chest pain pressure like radiating to her back and was accompined wi th SOB, she was 90 mins into her dialysis,denied any palpitation,nausea,vomitting,cough,currently complaining of orthopnea,no PND. Assessment : Chest pain NSTEMI likely Type II HTN SARAH on worseing CKD Stage,recently started on H/D H/O CAD H/O COPD H/O AAA Repair s/p EVAR Hypothyroidism Plan : Troponin Trend : [phone] Recent 2D Echo: Follow limited 2D Echo Monitor Serial EKG Contonue Aspirin, statin, beta honorio, IMDUR, Nitro paste Continue Amlodipine, clonidine, Continue Duo nebs, budesonide Inhaler Possible Cardiology consult Renal Consult for Rotuine H/D Code Status Full code DVT PPX: On sc heparin. Attestations Medical Necessity Statement*: Patient needs to be hospitalized for the management of chest pain Coding Level of Care Code Acute Crawler Tractor Operator for Chg Fwd Exam Detailed Diagnoses COPD with acute exacerbation J44.1 NSTEMI (non-ST elevated myocardial infarction) I21.4 Hypothyroidism E03.9 Hypothyroidism type: acquired Chest pain R07.9 Hypertension I10 Status post endovascular aneurysm repair (EVAR) Z98.890; Z86.79 Major depressive disorder, recurrent severe without psychotic features F33.2
[2022-06-13] MEDS: sevelamer 800 mg Tablet PO (20:54)
[2022-06-13] MEDS: ropinirole 1 mg Tablet PO (20:54)
[2022-06-14] VITALS (9 sets, daily range): BP systolic 144–172; BP diastolic 81–127; PULSE 77–86; RESP 11–18; TEMP 36.6–37.1; O2SAT 94–97
[2022-06-14] MEDS: ipratropium-albuterol 3 mL Neb INHALATION ×3 (03:11→14:46)
[2022-06-14 04:04] LABS: Basophils % 0.4 %; Eosinophils # 0.2 10^3/uL (0.0-0.8); Eosinophils % 2.2 %; Hematocrit 25.5 % (37.0-47.0); Lymphocytes # 2.6 10^3/uL (0.8-4.8); Lymphocytes % 38.5 %; Mean Corpuscular HGB Conc 31.4 g/dL (30.0-36.0); Mean Corpuscular Hemoglobin 27.2 pg (28.0-34.0); Mean Corpuscular Volume 86.7 fl (81-99); Mean Platelet Volume 9.9 fL (7.4-10.4); Monocytes # 0.5 10^3/uL (0.2-0.9); Monocytes % 6.7 %; Neutrophils # 3.48 10^3/uL (1.8-7.7); Neutrophils % 51.5 %; Nucleated Red Blood Cells % 0 %; Platelet Count 142 10^3/cmm (130-400); Red Blood Count 2.94 10^6/uL (4.1-5.3); Red Cell Distribution Width 15.9 % (12.1-15.1); White Blood Count 6.8 10^3/uL (4.0-10.0)
[2022-06-14 04:27] LABS: Calcium 7.5 mg/dL (8.5-10.5)
[2022-06-14 04:29] LABS: Alanine Aminotransferase 7 U/L (0-33); Alkaline Phosphatase 103 U/L (35-105); Anion Gap 7.7 (5-19); Aspartate Amino Transferase 21 U/L (0-32); Blood Urea Nitrogen 6 mg/dL (8-23); Calcium 7.7 mg/dL (8.5-10.5); Carbon Dioxide 29 mmol/L (22-29); Chloride 94 mmol/L (98-107); Globulin 3.1 g/dL (1.3-4.6); Glomerular Filtration Rate 17.7 mL/min (90-130); Glucose 76 mg/dL (65-115); Iron 58 ug/dL (37-145); Magnesium 1.7 mg/dL (1.7-2.3); Osmolality Calculated 260 mOsm/kg (285-295); Potassium 3.7 mmol/L (3.5-5.1); Sodium 127 mmol/L (136-145); Total Bilirubin 0.2 mg/dL (0.15-1.2); Total Protein 5.1 g/dL (6.6-8.7)
[2022-06-14 04:31] LABS: Parathyroid Hormone 37.4 pg/mL (15-65)
[2022-06-14 04:42] LABS: 25 Hydroxy Vitamin D 42 ng/mL (30-100)
[2022-06-14 04:50] LABS: Ferritin 2453 ng/mL (15-150); Unsaturated Iron Binding < 17 ug/dL (112-347)
[2022-06-14 04:51] LABS: Phosphorus 0.6 mg/dL (2.5-4.5)
[2022-06-14] MEDS: nitroglycerin 1 gm/inch oint Pkt 1 INCH TOPICAL (05:07)
[2022-06-14] MEDS: ondansetron 2 mg/ML SDV 2 mL 4 MG IVP (05:37)
--- NOTE | 2022-06-14 05:43 | PC.NURSE ---
Attempted to initiate potassium phosphate IVPB and IV site in left ACF is occluded. When examimng site, the area about the elbow is swollen and painful to touch. Hospitalist notified of IV site occlusion and swelling of upper left arm. order to remove IV access and hold pot phos IVPB.
--- NOTE | 2022-06-14 06:00 | USCV_ITS ---
Hali James Age: 67 Gender: F : 1955 Exam Date: 06/14/2022 05:46 Ordering Phys: Lex Landeros MD Technologist: Harvinder Payne Exam Location: [facility] [place] Indication: AssessLV function BP: 168 / 86 HR: 83 Rhythm: Sinus Technical Quality: Adequate MEASUREMENTS (Male / Female) Normal Values 2D ECHO LV Diastolic Diameter PLAX 4.1 cm 4.2 - 5.9 / 3.9 - 5.3 cm LV Systolic Diameter PLAX 2.9 cm IVS Diastolic Thickness 1.1 cm 0.6 - 1.0 / 0.6 - 0.9 cm IVS Systolic Thickness 1.0 cm LVPW Diastolic Thickness 1.3 cm 0.6 - 1.0 / 0.6 - 0.9 cm LVPW Systolic Thickness 1.1 cm LVOT Diameter 2.1 cm LV Ejection Fraction 2D Teich 56.5 % LV Ejection Fraction MOD 2C 65.6 % LV Ejection Fraction 2C AL 66.5 % LA Diameter 3.2 cm M-MODE Aortic Annulus Diameter 3.4 cm LA Ao Ratio MM 0.9 MV E Point Septal Separation 1.2 cm FINDINGS Left Ventricle Normal left ventricular cavity size. Normal left ventricular systolic function. Left ventricular ejection fraction is estimated at 60 %. No diagnostic regional wall motion abnormality. Right Ventricle Normal right ventricular size and systolic function. Right Atrium Right atrium not well visualized. Left Atrium Probably normal left atrial size. Mitral Valve Thickened mitral valve. Aortic Valve Aortic valve not well visualized. Tricuspid Valve Tricuspid valve not well visualized. Pulmonic Valve Pulmonic valve not well visualized. Pericardium Small circumferential pericardial effusion. No evidence of hemodynamic compromise. Aorta Normal-sized aortic root. IVC Dilated IVC. CONCLUSIONS 1. Normal left ventricular cavity size and systolic function. Left ventricular ejection fraction is estimated at 60 %. No diagnostic regional wall motion abnormality. 2. Small circumferential pericardial effusion. No evidence of hemodynamic compromise. 3. When compared to previous study dated 05/10/2022, there is small circumferential pericardial effusion now. Nakita Hernandez MD (Electronically Signed) Final Date: 14 June 2022 10:28 S
[2022-06-14] MEDS: heparin 5,000 unit/mL INJ 1 mL 5000 UNIT SUBCUT (07:20)
--- NOTE | 2022-06-14 07:22 | USCV_ITS ---
Hali James Age: 67 Gender: F : 1955 Exam Date: 06/14/2022 07:55 Ordering Phys: Yemi Ramos MD Technologist: CT [place] [facility] [place] Indication: swelling HISTORY: swelling PROCEDURES: Venous duplex imaging was performed in bilateral lower extremities. The following venous structures were evaluated: common femoral vein, profunda vein, proximal portion of the greater saphenous vein, superficial femoral vein, and the popliteal vein. In addition, the posterior tibial and peroneal trunk were evaluated. Serial compression, augmentation maneuvers, and spectral Doppler flow evaluation were performed. FINDINGS: Limited 2-D Doppler and augmentation and compressibility throughout the lower extremity venous structures. Additional imaging through the proximal calf veins also reveals no thrombus. Limited evaluation of the greater saphenous vein is patent with no thrombus. Veins are poorly visualized at several levels. CONCLUSIONS No DVT bilateral lower extremities. Technically limited exam. Dr. Leah Monroy DO (Electronically Signed) Final Date: 14 June 2022 09:12 S
--- NOTE | 2022-06-14 07:22 | USCV_ITS ---
Hali James Age: 67 Gender: F : 1955 Exam Date: 06/14/2022 08:17 Ordering Phys: Yemi Ramos MD Technologist: CT Exam [place] [facility] [place] Indication: swelling PROCEDURES: Venous duplex imaging was performed in only the left upper extremity. In addition, the basilic vein, cephalic vein, radial vein, and ulnar vein. FINDINGS: The veins of the left upper extremity are readily compressible with normal venous flow dynamics including spontaneous flow, respiratory phasic variation and augmentation. CONCLUSIONS No left upper extremity DVT. Dr. Leah Monroy DO (Electronically Signed) Final Date: 14 June 2022 09:10 S
--- NOTE | 2022-06-14 08:09 | P.PN_ITS ---
Subjective Subjective: seen and examined. feels better after HD yesterday- no cp on HD yesterday. has LUE edema and thigh edema. poor appetite. Medications: Reviewed: Yes Medication Review Details: Current Medications Acetaminophen (Acetaminophen 325 Mg Tablet) 650 mg PO Q6H PRN PRN Reason: Mild/Mod Pain Or Temp >/= 101 Albuterol/Ipratropium (Ipratropium-Albuterol 3 Ml Neb) 3 ml INHALATION Q6H.RESP [facility] Last Admin: 06/14/22 03:11 Dose: 3 ml Amlodipine Besylate (Amlodipine 10 Mg Tablet) 10 mg PO DAILY [facility] Last Admin: 06/13/22 08:54 Dose: 10 mg Aspirin (Aspirin 81 Mg Ec Tablet) 81 mg PO DAILY@30 [facility] Last Admin: 06/13/22 08:55 Dose: 81 mg Atorvastatin Calcium (Atorvastatin 40 Mg Tablet) 40 mg PO DAILY [facility] Last Admin: 06/13/22 08:55 Dose: 40 mg Bisacodyl (Bisacodyl 5 Mg Tablet) 10 mg PO DAILY PRN; Protocol PRN Reason: Constipation (see protocol) Budesonide (Budesonide 0.5 Mg/2 Ml Neb) 0.5 mg INHALATION BID.RESPIRATORY [facility] Last Admin: 06/13/22 21:07 Dose: 0.5 mg Bumetanide (Bumetanide 1 Mg Tablet) 1 mg PO DAILY [facility] Last Admin: 06/13/22 08:54 Dose: Not Given Buspirone HCl (Buspirone 10 Mg Tablet) 5 mg PO TID [facility] Last Admin: 06/13/22 20:55 Dose: 5 mg Citalopram Hydrobromide (Citalopram 20 Mg Tablet) 40 mg PO DAILY@0830 [facility] Last Admin: 06/13/22 08:54 Dose: 40 mg Heparin Sodium (Porcine) (Heparin 5,000 Unit/Ml Inj 1 Ml) 5,000 unit SUBCUT Q12H [facility] Last Admin: 06/14/22 07:20 Dose: 5,000 unit Potassium Phosphate 30 mmol/ (Sodium Chloride) 110 mls @ 25 mls/hr IV ONCE ONE Stop: 06/14/22 09:38 Last Infusion: 06/14/22 05:30 Dose: 0 mls/hr Potassium Phosphate 15 mmol/ (Sodium Chloride) 105 mls @ 47 mls/hr IV ONCE ONE Stop: 06/14/22 09:38 Isosorbide Mononitrate (Isosorbide Mononitrate Er 60 Mg Tablet) 60 mg PO DAILY@829 [facility] Last Admin: 06/13/22 08:55 Dose: 60 mg Levothyroxine Sodium (Levothyroxine 50 Mcg Tablet) 50 mcg PO DAILY [facility] Last Admin: 06/13/22 08:55 Dose: 50 mcg Metoprolol Succinate (Metoprolol Succinate Er (24 Hr) 50 Mg Tablet) 50 mg PO BID@08,2099 [facility] Last Admin: 06/13/22 20:55 Dose: 50 mg Montelukast Sodium (Montelukast Sodium 10 Mg Tablet) 10 mg PO DAILY@829 [facility] Last Admin: 06/13/22 08:55 Dose: 10 mg Multivitamins (A-Fsjdwxg-Xqmztwx C Tablet) 1 each PO DAILY [facility] Nitroglycerin (Nitroglycerin 1 Gm/Inch Oint Pkt) 1 inch TOPICAL Q6H [facility] Last Admin: 06/14/22 05:07 Dose: 1 inch Ondansetron HCl (Ondansetron 2 Mg/Ml Sdv 2 Ml) 4 mg IVP Q6H PRN PRN Reason: NAUSEA AND VOMITING Last Admin: 06/14/22 05:37 Dose: 4 mg Pantoprazole Sodium (Pantoprazole Dr 40 Mg Tablet) 40 mg PO DAILY [facility] Last Admin: 06/13/22 08:55 Dose: 40 mg Ropinirole HCl (Ropinirole 1 Mg Tablet) 1 mg PO DAILY@2099 [facility] Last Admin: 06/13/22 20:54 Dose: 1 mg Vitals/I&O/Wt Last Vital Signs Temp 97.9 F 06/14/22 03:18 Pulse 81 06/14/22 06:00 Resp 11 L 06/14/22 03:18 BP 168/86 06/14/22 03:18 Pulse Ox 97 06/14/22 03:18 O2 Del Method 06/14/22 03:11 O2 Flow Rate 2 06/14/22 03:11 06/13/22 06/14/22 06/14/22 22:59 06:59 14:59 Intake Total 450 / 645 56.667 / 701.667 Balance 450 / 645 56.667 / 701.667 Weight last 48 hrs Weight 39.463 kg Physical Exam Narrative: sitting in bed on nc 02 -comfortable vs noted heent- nc/at, eomi neck supple lungs basal dullness heart reg abd soft, nt, nd, + bs ext 1+ edema, LUE edema access rt IJ Permacath neuro- a,a, o x 3 Data 06/14/22 03:33 06/14/22 03:33 A&P Assessment and plan (1) ESRD (end stage renal disease): seen and examined w/ RN- telehealth visit -pt consents to telemedicine Plan 66 yr old female w/ AMS, h/o nephrectomy, htn, COPD, CAD, AAA repair, hypothyroidism. ? Pt recently admitted w/ SARAH and severe HTN. Since then she molina s been dialysis dependent. Pt here w/ CP on HD yesterday 1. SARAH-Please try to get [facility] medical records -pt has only 1 kidney and did not have perfusion to her right kidney on CT scan here last month -she has since been dialysis dependent -s/p HD yesterday- repeat hd on tuesday -hep serologies neg 2. CKD- baseline cr has been rising over last 6 months prior to HD initiation- c r was from 1.2- 1.7 mg/dl- can be from nephrectomy of atrophic kidney and htn 3. evaluate for dvt. please review chart from [facility] 4. hyponatremia - monitor w/ dialysis- is dropping- free water restrict 5. htn- monitor on current meds. may olga to increase 6. anemia- high ferritin- no iron. can give EPO - if no blood clot 7. renal bone mineral metabolism- normal vit d and pth. replace phos seen and examined w/ rN- telehealth visit Attestations Medical Necessity Statement*: esrd, sob, anemia Time Spent in Patient Care: 16 - 35 minutes (>than 50% of time spent in counselling and/or direct pt care on unit) . Coding Level of Care Code Acute Senior Clinical Project Manager for Leann Crowley Diagnoses ESRD (end stage renal disease) N18.6
[2022-06-14] MEDS: budesonide 0.5 mg/2 mL Neb INHALATION (08:39)
[2022-06-14] MEDS: aspirin 81 mg EC Tablet PO (08:47)
[2022-06-14] MEDS: levothyroxine 50 mcg Tablet PO (08:47)
[2022-06-14] MEDS: isosorbide mononitrate ER 60 mg Tablet PO (08:47)
[2022-06-14] MEDS: montelukast sodium 10 mg Tablet PO (08:47)
[2022-06-14] MEDS: b-complex-vitamin c Tablet 1 EACH PO (08:47)
[2022-06-14] MEDS: atorvastatin 40 mg Tablet PO (08:47)
[2022-06-14] MEDS: citalopram 20 mg Tablet 40 MG PO (08:47)
[2022-06-14] MEDS: pantoprazole DR 40 mg Tablet PO (08:47)
[2022-06-14] MEDS: BuSPIRONE 10 mg Tablet 5 MG PO ×2 (08:48→16:04)
[2022-06-14] MEDS: amlodipine 10 mg Tablet PO (08:48)
[2022-06-14] MEDS: metoprolol succinate ER (24 HR) 50 mg Tablet PO (08:56)
--- NOTE | 2022-06-14 10:01 | P.DS_ITS ---
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? unfortunately, she was not deemed a candidate for intervention,COPD,AAA repair, hypothyroidism was brought in from her H/D center where she started having substernal chest pain pressure like radiating to her back and was accompined with SOB, she was 90 mins into her dialysis,denied any palpitation, nausea,vomitting,cough,currently complaining of orthopnea,no PND. Was admitted for evaluation of chest pain: Troponin trend was done, serial EKG was monitored, limited 2D echo was done: Which showed : Normal left ventricular cavity size and systolic function.?Left ventricular ejection fraction is estimated at 60 %.? No?diagnostic regional wall motion abnormality.Small circumferential pericardial effusion.?No evidence of ?hemodynamic compromise.When compared to previous study dated 05/10/2022, there is ?small circumferential pericardial effusion now. Chest pain is likely noncardiac, later in the hospital stay patient was chest pain-free, she was continued with routine hemodialysis, lower extremity Doppler vein was done: To rule out DVT, Left upper extremity Doppler vein was also done because of the swelling: No evident DVT. Renal duplex was done: As there was some concern of possible renal vein thrombosis/and she has earlier history of Rt SURI: Was nondiagnostic for renal artery stenosis. Patient has responded well to above medical management and is being discharged in stable condition to home, she will follow-up with primary care physician as well as nephrology as outpatient. If patient continues to have similar chest pain, she may need further work-up including stress test and possible cath. Physical Exam Const: COMMON NORMALS: patient oriented x3 HENMT: COMMON NORMALS: normocephalic, atraumatic, hearing grossly normal bilaterally and external ears normal HEAD & SCALP: normocephalic and atraumatic EXTERNAL EAR: Yes external ears normal Resp: COMMON NORMALS: normal respiratory effort, No retractions, No use of accessory muscles and clear to auscultation bilaterally EFFORT & INSPECTION: Yes symmetric chest movement AUSCULTATION: clear to auscultation bilaterally OTHER: Diminished air entry B/L Cardio: COMMON NORMALS: regular rate, regular rhythm, S1 normal heart sound present, S2 normal heart sound present, No gallops present (Cardio), No murmurs present (Cardio), No rub (Cardio) and Peripheral pulses 2+ throughout RATE: regular rate RHYTHM: regular rhythm HEART SOUNDS: S1 normal heart sound present and S2 normal heart sound present PERIPHERAL PULSES: Peripheral pulses 2+ throughout GI: COMMON NORMALS: Normal to inspection, nondistended, normoactive bowel sounds present, Soft to palpation, non-tender, No hepatosplenomegaly present and no masses AUSCULTATION: Yes normoactive bowel sounds PALPATION: Yes Soft to palpation and Yes No hepatosplenomegaly present RECTAL EXAM: deferred : COMMON NORMALS: Yes no CVA tenderness BLADDER/KIDNEY EXAM: Yes no CVA tenderness Back/Pelvis: COMMON NORMALS: no CVA tenderness Extremity: COMMON NORMALS: no clubbing, cyanosis or edema and no pedal edema Neuro: COMMON NORMALS: patient oriented x3 Discharge Data Studies Completed and Pending Completed Studies During Hospitalization Category Date Time Status XR chest 1V portable [id number] Stat Exams 06/12/22 14:38 [place] [id number] Routine Ultrasound 06/14/22 07:22 [place] [id number] Routine Ultrasound 06/14/22 07:22 Completed Pending at discharge Category Date Time Status Basic Metabolic Panel AM LABS Lab 06/15/22 04:00 Ordered Complete Blood Count w/Auto AM LABS Lab 06/15/22 04:00 Ordered Complete Blood Count w/Auto AM LABS Lab 06/15/22 04:00 Ordered Complete Blood Count w/Auto AM LABS Lab 06/16/22 04:00 Ordered Comprehensive Metabolic Panel AM LABS Lab 06/15/22 04:00 Ordered Comprehensive Metabolic Panel AM LABS Lab 06/16/22 04:00 Ordered Magnesium AM LABS Lab 06/15/22 04:00 Ordered Magnesium AM LABS Lab 06/16/22 04:00 Ordered Phosphorus AM LABS Lab 06/15/22 04:00 Ordered Phosphorus AM LABS Lab 06/16/22 04:00 Ordered CV. echo limited [id number] Routine Ultrasound 06/14/22 06:00 Taken Radiology Impressions Chest X-Ray 06/12/22 14:38 IMPRESSION: 1. Left lower lobe atelectasis versus minimal infiltrate. 2. Emphysematous changes suspected. Laboratory Results WBC 6.8 10^3/uL (4.0-10.0) 06/14/22 03:33 RBC 2.94 10^6/uL (4.1-5.3) L 06/14/22 03:33 Hgb 8.0 g/dL (11.5-15.3) L 06/14/22 03:33 Hct 25.5 % (37.0-47.0) L 06/14/22 03:33 MCV 86.7 fl (81-99) 06/14/22 03:33 MCH 27.2 pg (28.0-34.0) L 06/14/22 03:33 MCHC 31.4 g/dL (30.0-36.0) 06/14/22 03:33 RDW 15.9 % (12.1-15.1) H 06/14/22 03:33 Plt Count 142 10^3/cmm (130-400) 06/14/22 03:33 MPV 9.9 fL (7.4-10.4) 06/14/22 03:33 Neut % (Auto) 51.5 % 06/14/22 03:33 Lymph % (Auto) 38.5 % 06/14/22 03:33 [place] % (Auto) 6.7 % 06/14/22 03:33 Eos % (Auto) 2.2 % 06/14/22 03:33 Baso % (Auto) 0.4 % 06/14/22 03:33 Neut # (Auto) 3.48 10^3/uL (1.8-7.7) 06/14/22 03:33 Lymph # (Auto) 2.6 10^3/uL (0.8-4.8) 06/14/22 03:33 [place] # (Auto) 0.5 10^3/uL (0.2-0.9) 06/14/22 03:33 Eos # (Auto) 0.2 10^3/uL (0.0-0.8) 06/14/22 03:33 Baso # (Auto) 0.0 10^3/uL (0.0-0.1) 06/14/22 03:33 Nucleated RBC % (auto) 0 % 06/14/22 03:33 Nucleated RBCs # 0.0 /100WBC 06/14/22 03:33 Sodium 127 mmol/L (136-145) L 06/14/22 03:33 Potassium 3.7 mmol/L (3.5-5.1) 06/14/22 03:33 Chloride 94 mmol/L (98-107) L 06/14/22 03:33 Carbon Dioxide 29 mmol/L (22-29) 06/14/22 03:33 Anion Gap 7.7 (5-19) 06/14/22 03:33 BUN 6 mg/dL (8-23) L 06/14/22 03:33 Creatinine 2.7 mg/dL (0.5-0.9) H 06/14/22 03:33 GFR Calculation 17.7 mL/min (90-130) L 06/14/22 03:33 Glucose 76 mg/dL (65-115) 06/14/22 03:33 Calculated Osmolality 260 mOsm/kg (285-295) L 06/14/22 03:33 Uric Acid 2.6 mg/dL (2.4-5.7) 06/13/22 03:30 Calcium 7.7 mg/dL (8.5-10.5) L 06/14/22 03:33 Phosphorus 0.6 mg/dL (2.5-4.5) L* 06/14/22 03:33 Magnesium 1.7 mg/dL (1.7-2.3) 06/14/22 03:33 Iron 58 ug/dL (37-145) 06/14/22 03:33 TIBC 74.59777 mcg/dl 06/14/22 03:33 % Saturation 77.0 % (20-50) H 06/14/22 03:33 Unsat Iron Binding < 17 ug/dL (112-347) L 06/14/22 03:33 Ferritin 2453 ng/mL (15-150) H 06/14/22 03:33 Total Bilirubin 0.2 mg/dL (0.15-1.2) 06/14/22 03:33 AST 21 U/L (0-32) 06/14/22 03:33 ALT 7 U/L (0-33) 06/14/22 03:33 Alkaline Phosphatase 103 U/L (35-105) 06/14/22 03:33 Troponin T Baseline 350 ng/L (0-10) H* 06/12/22 15:27 Troponin T 120 Minute 305.1 ng/L (0-10) H 06/12/22 17:33 Delta Troponin T -44.9 ABS# (0-10) L 06/12/22 17:33 Troponin T Hi Sens 6Hr 318.0 ng/L (0-10) H 06/12/22 21:34 Troponin T Hi Sens 6Hr Delta -32.0 ng/L (0-12) L 06/12/22 21:34 Total Protein 5.1 g/dL (6.6-8.7) L 06/14/22 03:33 Albumin 2.0 g/dL (3.5-5.2) L 06/14/22 03:33 Globulin 3.1 g/dL (1.3-4.6) 06/14/22 03:33 25-OH Vitamin D Total 42 ng/mL (30-100) 06/14/22 03:33 PTH Intact 37.4 pg/mL (15-65) 06/14/22 03:33 Calcium (PTH Intact) 7.5 mg/dL (8.5-10.5) L 06/14/22 03:33 Hep Bs Antigen Non-reactive (Nonreactive) 06/13/22 03:30 Hep Bs Antibody 84.9 (11.5-1000) 06/13/22 03:30 Hepatitis C Antibody Non-reactive (Nonreactive) 06/13/22 03:30 Vitals Last Vital Signs Temp 97.8 F 06/14/22 08:00 Pulse 86 06/14/22 08:39 Resp 16 06/14/22 08:39 BP 172/127 06/14/22 08:00 Pulse Ox 97 06/14/22 08:39 O2 Del Method 06/14/22 08:39 O2 Flow Rate 2 06/14/22 08:39 Discharge Plan Discharge Patient Disposition: Home Condition: Stable Prescriptions: Continued albuterol sulfate 2.5 mg /3 mL (0.083 %) solution for nebulization 2.5 mg INHALATION QID PRN (Reason: Shortness Of Breath) 30 Days Qty: 75 5RF epinephrine 0.3 mg/0.3 mL auto-injector 0.3 mg IM Q10M PRN (Reason: Allergic Reaction) Rx Instructions: for 2 doses ropinirole 1 mg tablet 1 mg PO DAILY@2099 30 Days Qty: 30 5RF buspirone 5 mg tablet 5 mg PO TID Qty: 90 2RF citalopram 40 mg tablet 40 mg PO DAILY@829 30 Days Qty: 30 2RF hydroxyzine HCl 50 mg tablet 50 mg PO QID PRN (Reason: anxiety) Qty: 120 2RF atorvastatin 40 mg tablet 30 mg PO DAILY clonidine HCl 0.1 mg tablet 0.1 mg PO BID@829,2099 Qty: 180 3RF isosorbide mononitrate 60 mg tablet extended release 24 hr 60 mg PO DAILY@829 30 Days Qty: 30 5RF albuterol sulfate 90 mcg/actuation HFA aerosol inhaler 2 puff INHALATION 6XD PRN (Reason: Shortness Of Breath) Qty: 6.7 5RF aspirin 81 mg tablet,delayed release (DR/EC) 81 mg PO DAILY@829 30 Days Qty: 30 5RF metoprolol succinate 50 mg tablet extended release 24 hr 50 mg PO BID@829,2099 30 Days Qty: 60 5RF montelukast 10 mg tablet 10 mg PO DAILY@829 Qty: 30 5RF nitroglycerin [Nitrostat] 0.4 mg tablet, sublingual 0.4 mg SUBLINGUAL Q5M PRN (Reason: Chest Pain) 30 Days Qty: 30 5RF omeprazole 20 mg capsule,delayed release(DR/EC) 20 mg PO DAILY@829 30 Days Qty: 30 5RF arformoterol [Brovana] 15 mcg/2 mL solution for nebulization 2 ml inhalation BID Qty: 60 0RF budesonide [Pulmicort] 0.5 mg/2 mL suspension for nebulization 0.5 mg inhalation BID 30 Days Qty: 120 0RF Rx Instructions: NEEDS APPT PRIOR TO FURTHER REFILLS pantoprazole [Protonix] 20 mg tablet,delayed release (DR/EC) 20 mg PO BID 14 Days Qty: 28 0RF bumetanide 1 mg Tablet 1 mg PO DAILY fluticasone propionate [Flonase Allergy Relief] 50 mcg/actuation [place] 2 spray INTRANASAL DAILY PRN (Reason: Nasal Congestion) amlodipine 10 mg tablet 10 mg PO DAILY levothyroxine 50 mcg tablet 50 mcg PO DAILY sevelamer carbonate 0.8 gram Powder In Packet 0.4 g PO TID Rx Instructions: must administer with a meal/food Discontinued clarithromycin 500 mg tablet 500 mg PO BID 14 Days Qty: 28 0RF amoxicillin 500 mg tablet 1,000 mg PO BID 14 Days Qty: 56 0RF Discharge Orders: Discharge Order (Routine); Ordered 06/14/22 Ordered By: Lex Landeros Referrals: [facility] [place] [facility] ([facility]) [Outside] Nancy Carrasco FNP-C [Primary Care Provider] - 1 week Patient Instructions: Opioid Safety Discharge Attestations Time Spent in Discharge Care*: greater than 30 min Status at Discharge: Cognitive status at discharge: cognitively intact , Behavioral status at discharge: cooperative , Quality Metrics Clinical Quality Measures [ No reported AMI, CVA or VTE this stay] Coding Level of Care Code Acute Chg FW DC note Exam Detailed Diagnoses ESRD (end stage renal disease) N18.6
--- NOTE | 2022-06-14 10:28 | USCV_ITS ---
Hali James Age: 67 Gender: F : 1955 Exam Date: 06/14/2022 10:48 Ordering Phys: Lex Landeros MD Technologist: CT Exam Location: [facility] [place]_ Indication: stenosis Aortic Velocity @ SMA (cm/s) RIGHT KIDNEY LEFT KIDNEY Velocity (cm/s) Velocity (cm/s) Sys/Carnes Sys/Carnes Resistive Index Resistive Index 86.6 / 26.4 0.70 Mid Pole / 70.0 Kidney Length (mm) FINDINGS Comparison: 07/31/19. Technically difficult study. Non diagnostic evaluation of the renal arteries. Small amount of ascites and small right pleural effusion Atrophied right kidney. CONCLUSIONS Non diagnositic renal artery doppler evaluation. Dr. Leah Monroy DO (Electronically Signed) Final Date: 14 June 2022 12:57 S
== END 2022-06-14 16:07 | disposition home health service (06) | DRG 313 ==
LOC: ER 19:41 → CSU 19:53
PROVIDERS: Internal Medicine Nephrology; Admitting Provider Internal Medicine; Emergency Provider Family Medicine; PCP Nurse Practitioner Family; Visit Provider Internal Medicine
DX: R07.9 Chest pain, unspecified (principal); N18.6 End stage renal disease; I13.2 Hypertensive heart and chronic kidney disease with heart failure and with stage 5 chronic kidney disease, or end stage renal disease; J44.1 Chronic obstructive pulmonary disease with (acute) exacerbation; N17.9 Acute kidney failure, unspecified; F33.9 Major depressive disorder, recurrent, unspecified; I50.9 Heart failure, unspecified; Z99.2 Dependence on renal dialysis; Z90.5 Acquired absence of kidney; E03.9 Hypothyroidism, unspecified; Z79.51 Long term (current) use of inhaled steroids; Z79.82 Long term (current) use of aspirin; Z88.2 Allergy status to sulfonamides; Z88.8 Allergy status to other drugs, medicaments and biological substances; Z98.890 Other specified postprocedural states; K21.9 Gastro-esophageal reflux disease without esophagitis; D63.1 Anemia in chronic kidney disease; Z87.891 Personal history of nicotine dependence; G25.81 Restless legs syndrome; I73.9 Peripheral vascular disease, unspecified; M81.0 Age-related osteoporosis without current pathological fracture; E78.00 Pure hypercholesterolemia, unspecified
CPT/HCPCS: 36415; 71045; 80053; 82306; 82310; 82728; 83540; 83550; 83735; 83970; 84100; 84484; 84550; 85025; 86706; 86803; 87340; 90935; 93005; 93308; 93970; 93971; 93975; 94640; 96372; 99285; J1644; J1650; J2405; J7626; Q3014

== ENCOUNTER → 2022-06-16 11:55 | Outpatient (BNVA) | payer MEDICARE, MEDICAID, SELFPAY | PROVIDERS: PCP Nurse Practitioner Family; Visit Provider Nurse Practitioner Family | DX: R06.02 Shortness of breath (principal); J44.1 Chronic obstructive pulmonary disease with (acute) exacerbation; H10.9 Unspecified conjunctivitis; R11.0 Nausea | CPT/HCPCS: 71046 ==

== ENCOUNTER 2022-07-09 22:39 | Emergency (ER) | payer MEDICARE, MEDICAID, SELFPAY ==
[2022-07-09 22:42] VITALS: BP 140/87; PULSE 95; RESP 22; TEMP 37; O2SAT 97; BMI 16.9
--- NOTE | 2022-07-09 22:47 | XRR_ITS ---
PROCEDURE INFORMATION: Exam: XR Abdomen Exam date and time: 07/09/2022 10:53 PM Age: 67 years old Clinical indication: Abdominal pain; Acute; Additional info: Abd pain TECHNIQUE: Imaging protocol: Radiologic exam of the abdomen. Views: Frontal supine view of the abdomen. 1 View. COMPARISON: CT abdomen pelvis w con* [id number] 07/09/2022 5:06 AM FINDINGS: Tubes, catheters and devices: Aorto bi-iliac endograft. Gastrointestinal tract: Gas distended colon with moderate stool. No small bowel obstruction. Intraperitoneal space: No visible pneumoperitoneum. Bones/joints: Thoracolumbar scoliosis. Soft tissues: Clips in the groin. XR/XR KUB [id number] IMPRESSION: Diffuse gaseous prominence of the colon is most likely ileus.
--- NOTE | 2022-07-09 22:50 | W.ED.ABDPA2 ---
HPI - Abdominal Pain General: Chief Complaint: Abdominal Pain Stated Complaint: N/V, Abd pain Time Seen by Provider: 07/09/22 22:43 Source: patient and EMS Mode of arrival: EMS Limitations: no limitations History of Present Illness: 67-year-old female's been having abdominal pain over the last 2 days she had a CT scan yesterday showed no acute abnormalities states today she is continue to have some pain she did have 2 episodes of vomiting she denies any worsening proving factors pain is currently a 5 out of 10 she denies any fevers. 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 Anemia Atypical chest pain Brain aneurysm Chest pain Chest pain Chronic kidney disease CKD stage III, solitary kidney Chronic migraine without aura, intractable, with status migrainosus Congestive heart failure COPD (chronic obstructive pulmonary disease) COPD with acute exacerbation Depression Elevated troponin End-stage renal disease needing dialysis Endoleak post (EVAR) endovascular aneurysm repair ESRD (end stage renal disease) GERD (gastroesophageal reflux disease) History of stent insertion of renal artery Hypercholesteremia Hypertension Hypertensive urgency Resolved Hyponatremia Hypothyroidism Inguinal swelling Major depressive disorder, recurrent severe without psychotic features Normal colonoscopy NSTEMI (non-ST elevated myocardial infarction) Osteoporosis Peripheral vascular disease Psychiatric care Restless leg Solitary kidney Surgical History H/O: hysterectomy History of renal stent Herculink stent History of repair of aneurysm of abdominal aorta using endovascular stent graft Hx of tonsillectomy S/P appendectomy Status post endovascular aneurysm repair (EVAR) Family History Mother CAD (coronary artery disease) Chronic kidney disease (CKD) Dementia Stroke Father CAD (coronary artery disease) Cancer Diabetes Brother CAD (coronary artery disease) Cancer Lung disease Grandfather Cancer Grandmother Diabetes Family/Other Lung disease Suicide Other Hypertension Denies family history of Clotting disorder Anesthesia complication Bleeding disorder Social History Smoking and tobacco status: former smoker Quit status (tobacco): has quit using tobacco Year quit tobacco: 2005 - PPD x 35 Years Former quit date comment: Started at age 18 Second hand smoke exposure: No Smoking risk assessment/counseling performed?: No Alcohol intake: never Desire information about alcohol rehabilitation?: No Counseling given: No Desire information about substance/drug rehabilitation?: No Counseling given: No Adopted: No Caregiver/support person: No Lives independently: Yes Household members: family and children Housing: House Marital status: / Marital status details: 2006 Number of children: 12 Number of grandchildren: 4 Highest education level completed: Master's Degree Education level details: Criminal Justice service: No Current occupational status: disabled Current occupational exposures/hazards: No Pets and animals: Yes Pets & animals: cat(s), dog(s) and farm animals Farm Animals: cattle History of recent travel: No Leisure activites: reading and other Leisure activities details: watch TV Sexually active: No Current gender identity: Female Yudy/Hoahaoism: [employer] Special yudy needs: No Agree to transfusion: Yes Financial difficulty paying for basics: Somewhat Hard Female Reproductive History: Date of last menstrual period: 10/21/20 Para: 0 Spontaneous abortions: Yes Physical Exam Const: COMMON NORMALS: no acute distress, patient oriented x3 and healthy appearing HENMT: COMMON NORMALS: normocephalic and atraumatic HEAD & SCALP: normocephalic and atraumatic Eye: COMMON NORMALS: Equal, round and reactive pupils present and EOMs intact bilaterally PUPIL: Yes Equal, round and reactive pupils present Neck/C-Spine: COMMON NORMALS: full ROM and supple Chest: COMMONS NORMALS: normal inspection of the chest and normal palpation of entire chest wall Resp: COMMON NORMALS: normal respiratory effort, No retractions, No use of accessory muscles and clear to auscultation bilaterally AUSCULTATION: clear to auscultation bilaterally Cardio: COMMON NORMALS: regular rate, regular rhythm and No murmurs present (Cardio) RATE: regular rate RHYTHM: regular rhythm GI: COMMON NORMALS: Normal to inspection, nondistended, normoactive bowel sounds present, Soft to palpation, non-tender and no masses PALPATION: Yes Soft to palpation Extremity: COMMON NORMALS: normal to inspection and full ROM Neuro: COMMON NORMALS: patient oriented x3, moves all extremities and no focal motor deficits Psych: COMMON NORMALS: mental status grossly normal, Normal thought process present and cooperative THOUGHT PROCESS: Normal thought process present Skin: COMMON NORMALS: no rashes or lesions noted and no wounds GENERAL SKIN EXAM: no rashes or lesions noted Course Vital Signs: Vital signs: Vital Signs Temperature 98.6 F 07/09/22 22:42 Pulse Rate 87 07/09/22 23:37 Respiratory Rate 18 07/09/22 23:37 Blood Pressure 138/95 07/09/22 23:37 Pulse Oximetry 97 07/09/22 23:37 Oxygen Delivery Me thod 07/09/22 22:42 MDM - Abdominal Pain Medical Decision Making Patient presents here with abdominal pain blood work here is normal is a mild leukocytosis her pain is much improved at discharge her exam is benign no tenderness she has CT scan done this morning that was normal I do not believe she needs a repeat CT scan we will place her on nausea medicine she is stable for discharge. Lab Data 07/09/22 22:53 07/09/22 22:53 Labs/Radiology: Radiology Impressions KUB X-Ray 07/09/22 22:47 IMPRESSION: Diffuse gaseous prominence of the colon is most likely ileus. Laboratory Results WBC 16.3 10^3/uL (4.0-10.0) H 07/09/22 22:53 RBC 3.17 10^6/uL (4.1-5.3) L 07/09/22 22:53 Hgb 9.0 g/dL (11.5-15.3) L 07/09/22 22:53 Hct 30.0 % (37.0-47.0) L 07/09/22 22:53 MCV 94.6 fl (81-99) 07/09/22 22:53 MCH 28.4 pg (28.0-34.0) 07/09/22 22:53 MCHC 30.0 g/dL (30.0-36.0) 07/09/22 22:53 RDW 18.6 % (12.1-15.1) H 07/09/22 22:53 Plt Count 132 10^3/cmm (130-400) 07/09/22 22:53 MPV 10.7 fL (7.4-10.4) H 07/09/22 22:53 Neut % (Auto) 67.9 % 07/09/22 22:53 Lymph % (Auto) 26.5 % 07/09/22 22:53 Geary % (Auto) 4.9 % 07/09/22 22:53 Eos % (Auto) 0.0 % 07/09/22 22:53 Baso % (Auto) 0.2 % 07/09/22 22:53 Neut # (Auto) 11.04 10^3/uL (1.8-7.7) H 07/09/22 22:53 Lymph # (Auto) 4.3 10^3/uL (0.8-4.8) 07/09/22 22:53 Geary # (Auto) 0.8 10^3/uL (0.2-0.9) 07/09/22 22:53 Eos # (Auto) 0.0 10^3/uL (0.0-0.8) 07/09/22 22:53 Baso # (Auto) 0.0 10^3/uL (0.0-0.1) 07/09/22 22:53 Nucleated RBC % (auto) 0 % 07/09/22 22:53 Nucleated RBCs # 0.0 /100WBC 07/09/22 22:53 Sodium 136 mmol/L (136-145) 07/09/22 22:53 Potassium 4.1 mmol/L (3.5-5.1) 07/09/22 22:53 Chloride 100 mmol/L (98-107) 07/09/22 22:53 Carbon Dioxide 25 mmol/L (22-29) 07/09/22 22:53 Anion Gap 15.1 (5-19) 07/09/22 22:53 BUN 14 mg/dL (8-23) 07/09/22 22:53 Creatinine 3.5 mg/dL (0.5-0.9) H 07/09/22 22:53 GFR Calculation 13.1 mL/min (90-130) L 07/09/22 22:53 Glucose 92 mg/dL (65-115) 07/09/22 22:53 Calculated Osmolality 282 mOsm/kg (285-295) L 07/09/22 22:53 Lactate 0.9 mmol/L (0.5-2.2) 07/09/22 22:53 Calcium 8.6 mg/dL (8.5-10.5) 07/09/22 22:53 Total Bilirubin 0.3 mg/dL (0.15-1.2) 07/09/22 22:53 AST 33 U/L (0-32) H 07/09/22 22:53 ALT 15 U/L (0-33) 07/09/22 22:53 Alkaline Phosphatase 105 U/L (35-105) 07/09/22 22:53 Total Protein 6.5 g/dL (6.6-8.7) L 07/09/22 22:53 Albumin 3.2 g/dL (3.5-5.2) L 07/09/22 22:53 Globulin 3.3 g/dL (1.3-4.6) 07/09/22 22:53 Lipase 8 U/L (13-60) L 07/09/22 22:53 Discharge Plan Discharge Patient Disposition: Home Clinical Impression: Abdominal pain Condition: Stable Prescriptions: New hydrocodone-acetaminophen 5-325 mg tablet 1 tab PO Q6H PRN (Reason: pain) Qty: 14 0RF ondansetron 4 mg tablet,disintegrating 4 mg PO Q6H PRN (Reason: nausea and vomiting) Qty: 14 0RF No Action albuterol sulfate 2.5 mg /3 mL (0.083 %) solution for nebulization 2.5 mg INHALATION QID PRN (Reason: Shortness Of Breath) 30 Days Qty: 75 5RF epinephrine 0.3 mg/0.3 mL auto-injector 0.3 mg IM Q10M PRN (Reason: Allergic Reaction) Rx Instructions: for 2 doses atorvastatin 40 mg tablet 30 mg PO DAILY clonidine HCl 0.1 mg tablet 0.1 mg PO BID@829,2099 Qty: 180 3RF isosorbide mononitrate 60 mg tablet extended release 24 hr 60 mg PO DAILY@30 30 Days Qty: 30 5RF albuterol sulfate 90 mcg/actuation HFA aerosol inhaler 2 puff INHALATION 6XD PRN (Reason: Shortness Of Breath) Qty: 6.7 5RF aspirin 81 mg tablet,delayed release (DR/EC) 81 mg PO DAILY@829 30 Days Qty: 30 5RF metoprolol succinate 50 mg tablet extended release 24 hr 50 mg PO BID@829,2100 30 Days Qty: 60 5RF montelukast 10 mg tablet 10 mg PO DAILY@829 Qty: 30 5RF nitroglycerin [Nitrostat] 0.4 mg tablet, sublingual 0.4 mg SUBLINGUAL Q5M PRN (Reason: Chest Pain) 30 Days Qty: 30 5RF omeprazole 20 mg capsule,delayed release(DR/EC) 20 mg PO DAILY@829 30 Days Qty: 30 5RF prednisone 20 mg tablet 20 mg PO BID Qty: 10 0RF neomycin-polymyxin B-dexameth [Maxitrol] 3.5mg/mL-10,000 unit/mL-0.1 % drops,suspension 2 drp ophthalmic (eye) Q2H Qty: 5 0RF ondansetron 8 mg tablet,disintegrating 8 mg PO Q8H PRN (Reason: nausea and vomiting) Qty: 90 0RF pantoprazole [Protonix] 20 mg tablet,delayed release (DR/EC) 20 mg PO BID 14 Days Qty: 28 0RF budesonide [Pulmicort] 0.5 mg/2 mL suspension for nebulization 0.5 mg inhalation BID Qty: 120 0RF Rx Instructions: NEEDS APPT PRIOR TO FURTHER REFILLS formoterol fumarate [Perforomist] 20 mcg/2 mL solution for nebulization 2 ml inhalation Q12H Qty: 120 0RF Rx Instructions: Needs appt for further refills. revefenacin 175 mcg/3 mL solution for nebulization 175 mcg inhalation DAILY Qty: 90 0RF Rx Instructions: Needs appt for further refills. buspirone 5 mg tablet 5 mg PO TID Qty: 90 2RF citalopram 40 mg tablet 40 mg PO DAILY@829 30 Days Qty: 30 2RF hydroxyzine HCl 50 mg tablet 50 mg PO QID PRN (Reason: anxiety) Qty: 120 2RF azithromycin 250 mg tablet 250 mg PO .COMPLEX 90 Days Qty: 45 0RF Rx Instructions: 250 mg PO Tuesday; ropinirole 1 mg tablet 1 mg PO DAILY@2099 30 Days Qty: 30 5RF bumetanide 1 mg Tablet 1 mg PO DAILY fluticasone propionate [Flonase Allergy Relief] 50 mcg/actuation [place],Suspension 2 spray INTRANASAL DAILY PRN (Reason: Nasal Congestion) Constulose 10 gram/15 mL solution 30 ml PO Q2H 1 Days Qty: 360 0RF Rx Instructions: until desired laxative effect Miralax 17 gram powder in packet 8.5 g PO DAILY Qty: 100 0RF amlodipine 10 mg tablet 10 mg PO DAILY levothyroxine 50 mcg tablet 50 mcg PO DAILY sevelamer carbonate 0.8 gram Powder In Packet 0.4 g PO TID Rx Instructions: must administer with a meal/food Discharge Orders: Discharge ED (Routine); Ordered 07/10/22 Ordered By: Flo Mcknight Referrals: Nancy Carrasco FNP-C [Primary Care Provider] - Discharge Diet: Advance as tolerated Discharge Activity: Resume usual activity Patient Instructions: Abdominal Pain (ED), Opioid Safety Coding Level of Care Code ED Director Prospect for Chg Fwd Exam Comprehensive
[2022-07-09] MEDS: ondansetron 2 mg/ML SDV 2 mL 4 MG IVP (23:01)
[2022-07-09] MEDS: HYDROmorphone 1 mg/mL INJ 1 mL 0.5 MG IVP (23:01)
[2022-07-09 23:35] LABS: Basophils % 0.2 %; Lymphocytes # 4.3 10^3/uL (0.8-4.8); Lymphocytes % 26.5 %; Mean Corpuscular Hemoglobin 28.4 pg (28.0-34.0); Mean Corpuscular Volume 94.6 fl (81-99); Mean Platelet Volume 10.7 fL (7.4-10.4); Monocytes # 0.8 10^3/uL (0.2-0.9); Monocytes % 4.9 %; Neutrophils # 11.04 10^3/uL (1.8-7.7); Neutrophils % 67.9 %; Nucleated Red Blood Cells % 0 %; Platelet Count 132 10^3/cmm (130-400); Red Blood Count 3.17 10^6/uL (4.1-5.3); Red Cell Distribution Width 18.6 % (12.1-15.1); White Blood Count 16.3 10^3/uL (4.0-10.0)
[2022-07-09 23:37] VITALS: BP 138/95; PULSE 87; RESP 18; O2SAT 97
[2022-07-09 23:44] LABS: Lactate (Lactic Acid level) 0.9 mmol/L (0.5-2.2)
[2022-07-09 23:45] LABS: Alanine Aminotransferase 15 U/L (0-33); Albumin Level 3.2 g/dL (3.5-5.2); Alkaline Phosphatase 105 U/L (35-105); Anion Gap 15.1 (5-19); Aspartate Amino Transferase 33 U/L (0-32); Blood Urea Nitrogen 14 mg/dL (8-23); Calcium 8.6 mg/dL (8.5-10.5); Carbon Dioxide 25 mmol/L (22-29); Chloride 100 mmol/L (98-107); Globulin 3.3 g/dL (1.3-4.6); Glomerular Filtration Rate 13.1 mL/min (90-130); Glucose 92 mg/dL (65-115); Lipase 8 U/L (13-60); Osmolality Calculated 282 mOsm/kg (285-295); Potassium 4.1 mmol/L (3.5-5.1); Sodium 136 mmol/L (136-145); Total Bilirubin 0.3 mg/dL (0.15-1.2); Total Protein 6.5 g/dL (6.6-8.7)
== END 2022-07-10 00:39 | disposition home or self-care (01) ==
PROVIDERS: Emergency Provider Emergency Medicine; PCP Nurse Practitioner Family
DX: R10.9 Unspecified abdominal pain (principal); Z87.891 Personal history of nicotine dependence; I13.2 Hypertensive heart and chronic kidney disease with heart failure and with stage 5 chronic kidney disease, or end stage renal disease; N18.6 End stage renal disease; I50.9 Heart failure, unspecified; J44.9 Chronic obstructive pulmonary disease, unspecified; I25.2 Old myocardial infarction; Z79.82 Long term (current) use of aspirin; K57.00 Diverticulitis of small intestine with perforation and abscess without bleeding
CPT/HCPCS: 45915; 74018; 74177; 80053; 83605; 83690; 85025; 96374; 96375; 99284; 99285; J1170; J2270; J2405; Q9967

== ENCOUNTER 2022-08-02 11:56 | Oncology outpatient (recurring) (ONCR) | payer MEDICARE, MEDICAID, SELFPAY ==
[2022-08-02 12:49] LABS: Hematocrit 33.2 % (37.0-47.0); Hemoglobin 9.6 g/dL (11.5-15.3); Lymphocytes # 3.4 10^3/uL (0.8-4.8); Lymphocytes % 35.2 %; Mean Corpuscular HGB Conc 28.9 g/dL (30.0-36.0); Mean Corpuscular Hemoglobin 28.3 pg (28.0-34.0); Mean Corpuscular Volume 97.9 fl (81-99); Mean Platelet Volume 9.8 fL (7.4-10.4); Monocytes # 0.5 10^3/uL (0.2-0.9); Monocytes % 4.9 %; Neutrophils # 5.77 10^3/uL (1.8-7.7); Neutrophils % 59.5 %; Nucleated Red Blood Cells % 0 %; Platelet Count 159 10^3/cmm (130-400); Red Blood Count 3.39 10^6/uL (4.1-5.3); White Blood Count 9.7 10^3/uL (4.0-10.0)
[2022-08-02 13:11] LABS: Alanine Aminotransferase 16 U/L (0-33); Albumin Level 2.8 g/dL (3.5-5.2); Alkaline Phosphatase 85 U/L (35-105); Aspartate Amino Transferase 31 U/L (0-32); Blood Urea Nitrogen 23 mg/dL (8-23); Carbon Dioxide 26 mmol/L (22-29); Chloride 98 mmol/L (98-107); Globulin 2.9 g/dL (1.3-4.6); Glomerular Filtration Rate 10.1 mL/min (90-130); Glucose 90 mg/dL (65-115); Iron 62 ug/dL (37-145); Osmolality Calculated 275 mOsm/kg (285-295); Percent Saturation 71.2 % (20-50); Sodium 131 mmol/L (136-145); Total Bilirubin 0.2 mg/dL (0.15-1.2); Total Iron Binding Capacity 87 mcg/dl; Total Protein 5.7 g/dL (6.6-8.7); Unsaturated Iron Binding 25 ug/dL (112-347)
[2022-08-02 13:35] LABS: Ferritin 1119 ng/mL (15-150)
== END 2022-08-10 23:59 | disposition home or self-care (01) ==
PROVIDERS: Nurse Practitioner Family; PCP Nurse Practitioner Family; Visit Provider Internal Medicine Hematology & Oncology
DX: D64.9 Anemia, unspecified (principal); D72.829 Elevated white blood cell count, unspecified; N17.9 Acute kidney failure, unspecified; Z99.2 Dependence on renal dialysis; Z79.899 Other long term (current) drug therapy; Z87.891 Personal history of nicotine dependence
CPT/HCPCS: 36415; 80053; 82728; 83540; 83550; 85025; 99214; 99215

== ENCOUNTER → 2022-08-06 09:04 | Outpatient (BNVA) | payer MEDICARE, MEDICAID, SELFPAY | PROVIDERS: PCP Nurse Practitioner Family; Visit Provider Internal Medicine Pulmonary Disease | DX: J44.9 Chronic obstructive pulmonary disease, unspecified (principal); Z87.891 Personal history of nicotine dependence; Z79.52 Long term (current) use of systemic steroids | CPT/HCPCS: 99214 ==

== ENCOUNTER 2022-08-20 21:29 | Inpatient (IN) | payer MEDICARE, MEDICAID, SELFPAY ==
[2022-08-20 21:34] VITALS: BP 140/87; PULSE 93; RESP 18; TEMP 37.1; O2SAT 98
--- NOTE | 2022-08-20 21:43 | XRR_ITS ---
PROCEDURE INFORMATION: Exam: XR Chest Exam date and time: 08/20/2022 10:17 PM Age: 67 years old Clinical indication: Cough and dyspnea; Prior surgery; Additional info: SOB TECHNIQUE: Imaging protocol: Radiologic exam of the chest. Views: 1 view. COMPARISON: CR XR chest 2V* [id number] 06/16/2022 11:55 AM FINDINGS: Tubes, catheters and devices: Stable right central line. Lungs: Stable COPD . Pleural spaces: Unremarkable. No pleural effusion. No pneumothorax. Heart/Mediastinum: Unremarkable. No cardiomegaly. Vasculature: Calcification of the thoracic aorta and/or great vessels consistent with atherosclerotic vessel disease. Bones/joints: Unremarkable. XR/XR chest 1V portable [id number] IMPRESSION: 1. Stable right central line. 2. Stable COPD .
--- NOTE | 2022-08-20 21:44 | ECG_ITS ---
[facility] Test Date: 2022-08-20 Pat Name: Hali James Department: Room: Gender: Female Press Offbearer: : 1955 Requested By: Bryan Mckeon Order Number: [id number] Wil MD: Victor Hugo Gonzalez M.D. 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 [id number]
[2022-08-20] MEDS: cefTRIAXone 1,000 MG in sodium chloride 0.9% (plus) 50 ML 100 MG IV (22:59)
[2022-08-20 23:14] LABS: Basophils % 0.3 %; Hematocrit 39.1 % (37.0-47.0); Hemoglobin 11.5 g/dL (11.5-15.3); Mean Corpuscular HGB Conc 29.4 g/dL (30.0-36.0); Mean Corpuscular Hemoglobin 29.8 pg (28.0-34.0); Mean Corpuscular Volume 101.3 fl (81-99); Mean Platelet Volume 11.7 fL (7.4-10.4); Monocytes # 0.4 10^3/uL (0.2-0.9); Monocytes % 6.1 %; Neutrophils # 3.58 10^3/uL (1.8-7.7); Neutrophils % 50.9 %; Nucleated Red Blood Cells % 0 %; Platelet Count 102 10^3/cmm (130-400); Red Blood Count 3.86 10^6/uL (4.1-5.3); Red Cell Distribution Width 17.6 % (12.1-15.1)
--- NOTE | 2022-08-20 23:19 | ED_ITS ---
Documented by User: FAYE De La Torre 08/21/22 02:12 HPI - SOB/Dyspnea General: Chief Complaint: Shortness of Breath/Dyspnea Stated Complaint: sob,cough Time Seen by Provider: 08/20/22 22:08 History of Present Illness: HPI Narrative: Patient is a 67-year-old female that presents to the emergency department with complaints of shortness of breath/dyspnea. Onset of symptoms 4 days ago. Patient states that she has chronic obstructive pulmonary disease. She has been around her grandchildren who have been ill. Since that time she has developed worsening respiratory symptoms. Patient reports productive cough, increasing shortness of breath. She is on 2 L at baseline with worsening respiratory function. Patient denies fevers but reports chills. Continue to take her prescribed medication without relief Follow interviewing the patient it was noted that her oxygen saturation on 2 L is 87%. I have increased her oxygen to 3 L. Associated symptoms: Reports orthopnea; Deny abdominal pain, chest congestion, chest pain, dizziness, extremity pain, fever(s), nausea, palpitations, polydipsia, polyuria or vomiting Review of Systems General: Reports: 10 or more systems reviewed and unremarkable except in HPI and below Const: Reports: chills, fatigue and malaise; Denies: fever(s), change in appetite or change in weight Eyes: Denies: change in vision, eye discomfort, eye discharge or eye redness ENMT: Denies: throat pain, enlarged tonsils, odynophagia, hoarseness, ear or mastoid pain, ear discharge, change in hearing, tinnitus, nasal discharge, nasal congestion, post nasal drip or sinus pain Card: Reports: dyspnea on exertion and orthopnea; Denies: chest pain, palpitations, irregular heart rhythm, edema or leg pain with exertion Resp: Reports: dyspnea, productive cough and wheezing; Denies: non-productive cough, stridor or chest congestion GI: Denies: abdominal pain, nausea, vomiting, dysphagia, diarrhea, const ipation, bloating, GI cramping or hematochezia : Denies: flank pain, difficulty voiding, dysuria, urinary frequency, urinary urgency, urinary hesitancy, oliguria or hematuria Musc: Denies: neck pain, back pain, extremity pain, joint pain, joint swelling, joint redness, joint warmth or muscle weakness Skin/Breast: Denies: rash, pruritus, erythema, photosensitivity or new lesions Neuro: Denies: headache(s), numbness in extremities, weakness in extremities, sensory changes, lack of coordination, difficulty walking, frequent falls, dizziness, confusion, Slurred speech present, difficulty communicating thoughts, seizure-like activity or involuntary movements Endo: Denies: polyuria, polydipsia or tired all the time Bill/Lymph: Denies: easy bruising or easy bleeding PFSH ED PFSH: Medical History AAA (abdominal aortic aneurysm) 4.1 x 4.4 x 5.7 cm 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 Anemia Atypical chest pain Brain aneurysm Chest pain Chest pain Chronic kidney disease CKD stage III, solitary kidney Chronic migraine without aura, intractable, with status migrainosus Congestive heart failure COPD (chronic obstructive pulmonary disease) COPD with acute exacerbation Depression Elevated troponin End-stage renal disease needing dialysis Endoleak post (EVAR) endovascular aneurysm repair ESRD (end stage renal disease) GERD (gastroesophageal reflux disease) History of stent insertion of renal artery Hypercholesteremia Hypertension Hypertensive urgency Resolved Hyponatremia Hypothyroidism Inguinal swelling Major depressive disorder, recurrent severe without psychotic features Normal colonoscopy NSTEMI (non-ST elevated myocardial infarction) Osteoporosis Peripheral vascular disease Psychiatric care Restless leg Solitary kidney Surgical History H/O: hysterectomy History of renal stent Herculink stent History of repair of aneurysm of abdominal aorta using endovascular stent graft Hx of tonsillectomy S/P appendectomy Status post endovascular aneurysm repair (EVAR) Family History Mother CAD (coronary artery disease) Chronic kidney disease (CKD) Dementia Stroke Father CAD (coronary artery disease) Cancer Diabetes Brother CAD (coronary artery disease) Cancer Lung disease Grandfather Cancer Grandmother Diabetes Family/Other Lung disease Suicide Other Hypertension Denies family history of Clotting disorder Anesthesia complication Bleeding disorder Social History Smoking and tobacco status: former smoker Quit status (tobacco): has quit using tobacco Year quit tobacco: 2005 - PPD x 35 Years Former quit date comment: Started at age 18 Second hand smoke exposure: No Smoking risk assessment/counseling performed?: No Alcohol intake: never Desire information about alcohol rehabilitation?: No Counseling given: No Desire information about substance/drug rehabilitation?: No Counseling given: No Adopted: No Caregiver/support person: No Lives independently: Yes Household members: family and children Housing: House Marital status: / Marital status details: 2006 Number of children: 12 Number of grandchildren: 4 Highest education level completed: Master's Degree Education level details: Criminal Justice service: No Current occupational status: disabled Current occupational exposures/hazards: No Pets and animals: Yes Pets & animals: cat(s), dog(s) and farm animals Farm Animals: cattle History of recent travel: No Leisure activites: reading and other Leisure activities details: watch TV Sexually active: No Current gender identity: Female Yudy/Orthodoxy: [employer] Special yudy needs: No Agree to transfusion: Yes Financial difficulty paying for basics: Somewhat Hard Female Reproductive History: Date of last menstrual period: 10/21/20 Para: 0 Spontaneous abortions: Yes Physical Exam Const: COMMON NORMALS: patient oriented x3 and alert; apparent distress GENERAL APPEARANCE: cooperative, in distress, ill appearing and frail appearing ORIENTATION/CONSCIOUSNESS: Yes awake, Yes oriented to person, Yes oriented to place and Yes oriented to time HENMT: COMMON NORMALS: normocephalic and atraumatic HEAD & SCALP: normocephalic and atraumatic FACE & SINUS: normal facial exam MOUTH: Normal oral and palatal mucosa present THROAT: posterior oropharynx normal Eye: COMMON NORMALS: Equal, round and reactive pupils present, EOMs intact bilaterally, conjunctivae normal and no scleral icterus GENERAL EYE: appearance normal, both eyes and all related structures ALIGNMENT: Yes alignment normal PERIORBITAL: periorbital findings normal CONJUNCTIVA: Yes conjunctivae normal PUPIL: Yes Equal, round and reactive pupils present Neck/C-Spine: COMMON NORMALS: full ROM GENERAL: Yes normal visual inspection Lymph: LYMPHATIC: no lymphadenopathy noted Chest: COMMONS NORMALS: normal inspection of the chest Breast/axilla inspection: Yes no chest deformity, asymmetry, normal contours, no nodules, masses, tenderness Resp: EFFORT & INSPECTION: No able to speak in complete sentences, Yes symmetric chest movement, Yes abnormal respiratory pattern, Yes tachypneic, Yes respiratory distress, Yes retractions, Yes uses accessory muscles and Yes prolonged expiratory phase AUSCULTATION: diminished lung sounds bilateral Cardio: COMMON NORMALS: regular rate, regular rhythm and Peripheral pulses 2+ throughout RATE: regular rate RHYTHM: regular rhythm PERIPHERAL PULSES: Peripheral pulses 2+ throughout GI: COMMON NORMALS: Normal to inspection, nondistended, normoactive bowel sounds present, Soft to palpation, non-tender and No hepatosplenomegaly present INSPECTION: Yes normal to inspection AUSCULTATION: Yes normoactive bowel sounds PALPATION: Yes Soft to palpation and Yes No hepatosplenomegaly present RECTAL EXAM: deferred Extremity: COMMON NORMALS: normal to inspection GENERAL: Yes normal exam except as noted Neuro: COMMON NORMALS: patient oriented x3 SENSORIUM/ORIENTATION: Yes alert, Yes oriented to person, Yes oriented to place and Yes oriented to time CRANIAL NERVES: Yes CN normal except as noted Psych: COMMON NORMALS: mental status grossly normal, Normal thought process present, cooperative, activity/motor behavior normal, denies homicidal ideation and denies suicidal ideation THOUGHT PROCESS: Normal thought process present Skin: COMMON NORMALS: no rashes or lesions noted, no wounds and turgor normal GENERAL SKIN EXAM: no rashes or lesions noted and turgor normal Course Vital Signs: Vital signs: Vital Signs Temperature 98.7 F 08/20/22 21:34 Pulse Rate 83 08/21/22 02:30 Respiratory Rate 18 08/21/22 02:30 Blood Pressure 156/95 08/21/22 01:12 Pulse Oximetry 100 08/21/22 02:30 Oxygen Delivery Me thod 08/21/22 02:30 Oxygen Flow Rate 3 08/21/22 02:30 MDM - SOB/Dyspnea Medical Decision Making Patient is a chronically ill-appearing 67-year-old female that is cachectic. She presents with several day history of worsening shortness of breath. Has been around sick grandchildren. Since then she has developed worsening shortness of breath, cough that is not responsive to her usual home medications and home oxygen. She has undergone the following diagnostics and treatment: -Chest x-ray reveals no acute findings, stable COPD -Laboratory studies include CBC, CMP, troponin, BNP reveal no leukocytosis, acute anemias. Patient has a creatinine of 4.8 normal potassium and sodium. Troponin is 456. BNP is greater than 70,000. Patient does have a history of renal failure and is dialysis dependent. Is scheduled for dialysis tomorrow. -Respiratory panel has been obtained to test for COVID, influenza, RSV among other viral illnesses. Negative respiratory panel -EKG revealed nonspecific T wave changes but EKG is stable from previous. She has a rate of 89 beats a minute and a QTc 456. I have placed patient on 3 L oxygen, have given her a DuoNeb treatment, have given her Solu-Medrol and antibiotics. Respiratory therapy has been consulted for serial DuoNeb treatments. Please see their documentation on administration Ultimately patient is going to require admission. I did speak with Dr. Tomas, my attending, for further management. We will assume care. Lab Data 08/20/22 23:04 08/20/22 23:04 Labs/Radiology: Radiology Impressions Chest X-Ray 08/20/22 21:43 IMPRESSION: 1. Stable right central line. 2. Stable COPD . Laboratory Results WBC 7.0 10^3/uL (4.0-10.0) 08/20/22 23: RBC 3.86 10^6/uL (4.1-5.3) L 08/20/22 23: Hgb 11.5 g/dL (11.5-15.3) 08/20/22 23: Hct 39.1 % (37.0-47.0) 08/20/22 23: MCV 101.3 fl (81-99) H 08/20/22 23:04 MCH 29.8 pg (28.0-34.0) 08/20/22 23: MCHC 29.4 g/dL (30.0-36.0) L 08/20/22 23: RDW 17.6 % (12.1-15.1) H 08/20/22 23: Plt Count 102 10^3/cmm (130-400) L 08/20/22 23: MPV 11.7 fL (7.4-10.4) H 08/20/22 23: Neut % (Auto) 50.9 % 08/20/22 23: Lymph % (Auto) 42.0 % 08/20/22 23: Roosevelt % (Auto) 6.1 % 08/20/22 23: Eos % (Auto) 0.0 % 08/20/22 23: Baso % (Auto) 0.3 % 08/20/22 23:04 Neut # (Auto) 3.58 10^3/uL (1.8-7.7) 08/20/22 23:04 Lymph # (Auto) 3.0 10^3/uL (0.8-4.8) 08/20/22 23:04 Roosevelt # (Auto) 0.4 10^3/uL (0.2-0.9) 08/20/22 23:04 Eos # (Auto) 0.0 10^3/uL (0.0-0.8) 08/20/22 23:04 Baso # (Auto) 0.0 10^3/uL (0.0-0.1) 08/20/22 23:04 Nucleated RBC % (auto) 0 % 08/20/22 23: Nucleated RBCs # 0.0 /100WBC 08/20/22 23:04 Sodium 139 mmol/L (136-145) 08/20/22 23:28 Potassium 4.4 mmol/L (3.5-5.1) 08/20/22 23:28 Chloride 102 mmol/L (98-107) 08/20/22 23:28 Carbon Dioxide 28 mmol/L (22-29) 08/20/22 23:28 Anion Gap 13.4 (5-19) 08/20/22 23:28 BUN 31 mg/dL (8-23) H 08/20/22 23:28 Creatinine 4.8 mg/dL (0.5-0.9) H 08/20/22 23:28 GFR Calculation 9.1 mL/min (90-130) L 08/20/22 23:28 Glucose 101 mg/dL (65-115) 08/20/22 23:28 Calculated Osmolality 295 mOsm/kg (285-295) 08/20/22 23:28 Calcium 8.3 mg/dL (8.5-10.5) L 08/20/22:28 Total Bilirubin 0.2 mg/dL (0.15-1.2) 08/20/22 23:28 AST 26 U/L (0-32) 08/20/22 23:28 ALT 14 U/L (0-33) 08/20/22 23:28 Alkaline Phosphatase 76 U/L (35-105) 08/20/22 23:28 Troponin T Baseline 456 ng/L (0-10) H* 08/20/22 23:28 Troponin T 120 Minute 467.7 ng/L (0-10) H 08/21/22 01:29 Delta Troponin T 11.7 ABS# (0-10) H* 08/21/22 01:29 NT-Pro-B Natriuret Pep > 17658 pg/mL (0-125) H 08/20/22 23: Total Protein 5.0 g/dL (6.6-8.7) L 08/20/22 23: Albumin 2.6 g/dL (3.5-5.2) L 08/20/22 23: Globulin 2.4 g/dL (1.3-4.6) 08/20/22 23: Nasal Influ A H1 2009 PCR Not detected (NOT DETECT) 08/20/22 23:13 Adenovirus (PCR) Not detected (NOT DETECT) 08/20/22 23:13 C. pneumoniae DNA (PCR) Not detected (NOT DETECT) 08/20/22 23:13 Coronavirus 229E (PCR) Not detected (NOT DETECT) 08/20/22 23:13 Human Metapneumovir PCR Not detected (NOT DETECT) 08/20/22 23:13 Influenza A (H1) PCR Not detected (NOT DETECT) 08/20/22 23:13 Influenza A (H3) PCR Not detected (NOT DETECT) 08/20/22 23:13 Influenza Type A (PCR) Not detected (NOT DETECT) 08/20/22 23:13 Influenza Type B (PCR) Not detected (NOT DETECT) 08/20/22 23:13 M. pneumoniae (PCR) Not detected (NOT DETECT) 08/20/22 23:13 Parainfluenza 1 (PCR) Not detected (NOT DETECT) 08/20/22 23:13 Parainfluenza 2 (PCR) Not detected (NOT DETECT) 08/20/22 23:13 Parainfluenza 3 (PCR) Not detected (NOT DETECT) 08/20/22 23:13 Parainfluenza 4 (PCR) Not detected (NOT DETECT) 08/20/22 23:13 RSV Type A (PCR) Not detected (NOT DETECT) 08/20/22 23:13 RSV Type B (PCR) Not detected (NOT DETECT) 08/20/22 23:13 Entero/Rhino (PCR) Not detected (NOT DETECT) 08/20/22 23:13 SARS-CoV-2 (PCR) Not detected (NOT DETECT) 08/20/22 23:13 Discharge Plan Discharge Patient Disposition: Admitted As Inpatient Clinical Impression: Acute exacerbation of chronic obstructive airways disease, ESRD on dialysis Condition: Fair Coding Level of Care Code ED Treasury Agent for Chg Fwd Documented by User: Patrick Tomas DO 08/21/22 03:02 HPI - SOB/Dyspnea General: Chief Complaint: Shortness of Breath/Dyspnea Stated Complaint: sob,cough Time Seen by Provider: 08/20/22 22:08 PFSH ED PFSH: Medical History AAA (abdominal aortic aneurysm) 4.1 x 4.4 x 5.7 cm 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 Anemia Atypical chest pain Brain aneurysm Chest pain Chest pain Chronic kidney disease CKD stage III, solitary kidney Chronic migraine without aura, intractable, with status migrainosus Congestive heart failure COPD (chronic obstructive pulmonary disease) COPD with acute exacerbation Depression Elevated troponin End-stage renal disease needing dialysis Endoleak post (EVAR) endovascular aneurysm repair ESRD (end stage renal disease) GERD (gastroesophageal reflux disease) History of stent insertion of renal artery Hypercholesteremia Hypertension Hypertensive urgency Resolved Hyponatremia Hypothyroidism Inguinal swelling Major depressive disorder, recurrent severe without psychotic features Normal colonoscopy NSTEMI (non-ST elevated myocardial infarction) Osteoporosis Peripheral vascular disease Psychiatric care Restless leg Solitary kidney Surgical History H/O: hysterectomy History of renal stent Herculink stent History of repair of aneurysm of abdominal aorta using endovascular stent graft Hx of tonsillectomy S/P appendectomy Status post endovascular aneurysm repair (EVAR) Family History Mother CAD (coronary artery disease) Chronic kidney disease (CKD) Dementia Stroke Father CAD (coronary artery disease) Cancer Diabetes Brother CAD (coronary artery disease) Cancer Lung disease Grandfather Cancer Grandmother Diabetes Family/Other Lung disease Suicide Other Hypertension Denies family history of Clotting disorder Anesthesia complication Bleeding disorder Social History Smoking and tobacco status: former smoker Quit status (tobacco): has quit using tobacco Year quit tobacco: 2005 - PPD x 35 Years Former quit date comment: Started at age 18 Second hand smoke exposure: No Smoking risk assessment/counseling performed?: No Alcohol intake: never Desire information about alcohol rehabilitation?: No Counseling given: No Desire information about substance/drug rehabilitation?: No Counseling given: No Adopted: No Caregiver/support person: No Lives independently: Yes Household members: family and children Housing: House Marital status: / Marital status details: 2005 Number of children: 12 Number of grandchildren: 4 Highest education level completed: Master's Degree Education level details: Criminal Justice service: No Current occupational status: disabled Current occupational exposures/hazards: No Pets and animals: Yes Pets & animals: cat(s), dog(s) and farm animals Farm Anim als: cattle History of recent travel: No Leisure activites: reading and other Leisure activities details: watch TV Sexually active: No Current gender identity: Female Yudy/Orthodoxy: [employer] Special yudy needs: No Agree to transfusion: Yes Financial difficulty paying for basics: Somewhat Hard Course Vital Signs: Vital signs: Vital Signs Temperature 98.7 F 08/20/22 21:34 Pulse Rate 83 08/21/22 02:30 Respiratory Rate 18 08/21/22 02:30 Blood Pressure 156/95 08/21/22 01:12 Pulse Oximetry 100 08/21/22 02:30 Oxygen Delivery Me thod 08/21/22 02:30 Oxygen Flow Rate 3 08/21/22 02:30 MDM - SOB/Dyspnea Medical Decision Making Patient is a chronically ill-appearing 67-year-old female that is cachectic. She presents with several day history of worsening shortness of breath. Has been around sick grandchildren. Since then she has developed worsening shortness of breath, cough that is not responsive to her usual home medications and home oxygen. She has undergone the following diagnostics and treatment: -Chest x-ray reveals no acute findings, stable COPD -Laboratory studies include CBC, CMP, troponin, BNP reveal no leukocytosis, acute anemias. Patient has a creatinine of 4.8 normal potassium and sodium. Troponin is 456. BNP is greater than 70,000. Patient does have a history of renal failure and is dialysis dependent. Is scheduled for dialysis tomorrow. -Respiratory panel has been obtained to test for COVID, influenza, RSV among other viral illnesses. Negative respiratory panel -EKG revealed nonspecific T wave changes but EKG is stable from previous. She has a rate of 89 beats a minute and a QTc 456. I have placed patient on 3 L oxygen, have given her a DuoNeb treatment, have given her Solu-Medrol and antibiotics. Respiratory therapy has been consulted for serial DuoNeb treatments. Please see their documentation on administration Ultimately patient is going to require admission. I did speak with Dr. Tomas, my attending, for further management. He will assume care. This patient was originally seen by LAWSON Rubio. I agree with her history, evaluation, and treatment. This patient is required multiple breathing treatments. Respiratory rate is improved at this point. She has end-stage renal disease, and is on dialysis. She will require dialysis later today. She will be admitted, continued breathing treatments steroids, and go for dialysis. She is requiring extra oxygen at this point still. Hospitalist has been notified and agrees to admit. Lab Data 08/20/22 23:04 08/20/22 23:04 Labs/Radiology: Radiology Impressions Chest X-Ray 08/20/22 21:43 IMPRESSION: 1. Stable right central line. 2. Stable COPD . Laboratory Results WBC 7.0 10^3/uL (4.0-10.0) 08/20/22 23:04 RBC 3.86 10^6/uL (4.1-5.3) L 08/20/22 23:04 Hgb 11.5 g/dL (11.5-15.3) 08/20/22 23:04 Hct 39.1 % (37.0-47.0) 08/20/22 23: MCV 101.3 fl (81-99) H 08/20/22 23:04 MCH 29.8 pg (28.0-34.0) 08/20/22 23:04 MCHC 29.4 g/dL (30.0-36.0) L 08/20/22 23:04 RDW 17.6 % (12.1-15.1) H 08/20/22 23:04 Plt Count 102 10^3/cmm (130-400) L 08/20/22 23:04 MPV 11.7 fL (7.4-10.4) H 08/20/22 23:04 Neut % (Auto) 50.9 % 08/20/22 23:04 Lymph % (Auto) 42.0 % 08/20/22 23: Roosevelt % (Auto) 6.1 % 08/20/22 23: Eos % (Auto) 0.0 % 08/20/22 23: Baso % (Auto) 0.3 % 08/20/22 23: Neut # (Auto) 3.58 10^3/uL (1.8-7.7) 08/20/22 23: Lymph # (Auto) 3.0 10^3/uL (0.8-4.8) 08/20/22 23:04 Roosevelt # (Auto) 0.4 10^3/uL (0.2-0.9) 08/20/22 23: Eos # (Auto) 0.0 10^3/uL (0.0-0.8) 08/20/22 23:04 Baso # (Auto) 0.0 10^3/uL (0.0-0.1) 08/20/22 23: Nucleated RBC % (auto) 0 % 08/20/22 23: Nucleated RBCs # 0.0 /100WBC 08/20/22 23:04 Sodium 139 mmol/L (136-145) 08/20/22 23:28 Potassium 4.4 mmol/L (3.5-5.1) 08/20/22 23: Chloride 102 mmol/L (98-107) 08/20/22 23:28 Carbon Dioxide 28 mmol/L (22-29) 08/20/22 23:28 Anion Gap 13.4 (5-19) 08/20/22 23:28 BUN 31 mg/dL (8-23) H 08/20/22 23:28 Creatinine 4.8 mg/dL (0.5-0.9) H 08/20/22 23:28 GFR Calculation 9.1 mL/min (90-130) L 08/20/22 23: Glucose 101 mg/dL (65-115) 08/20/22 23: Calculated Osmolality 295 mOsm/kg (285-295) 08/20/22 23: Calcium 8.3 mg/dL (8.5-10.5) L 08/20/22 23: Total Bilirubin 0.2 mg/dL (0.15-1.2) 08/20/22 23: AST 26 U/L (0-32) 08/20/22 23: ALT 14 U/L (0-33) 08/20/22: Alkaline Phosphatase 76 U/L (35-105) 08/20/22 23: Troponin T Baseline 456 ng/L (0-10) H* 08/20/22 23:28 Troponin T 120 Minute 467.7 ng/L (0-10) H 08/21/22 01:29 Delta Troponin T 11.7 ABS# (0-10) H* 08/21/22 01:29 NT-Pro-B Natriuret Pep > 11117 pg/mL (0-125) H 08/20/22 23:28 Total Protein 5.0 g/dL (6.6-8.7) L 08/20/22 23: Albumin 2.6 g/dL (3.5-5.2) L 08/20/22 23: Globulin 2.4 g/dL (1.3-4.6) 08/20/22 23:28 Nasal Influ A H1 2008 PCR Not detected (NOT DETECT) 08/20/22 23: Adenovirus (PCR) Not detected (NOT DETECT) 08/20/22 23: C. pneumoniae DNA (PCR) Not detected (NOT DETECT) 08/20/22 23: Coronavirus 229E (PCR) Not detected (NOT DETECT) 08/20/22 23: Human Metapneumovir PCR Not detected (NOT DETECT) 08/20/22 23: Influenza A (H1) PCR Not detected (NOT DETECT) 08/20/22 23: Influenza A (H3) PCR Not detected (NOT DETECT) 08/20/22 23: Influenza Type A (PCR) Not detected (NOT DETECT) 08/20/22 23:13 Influenza Type B (PCR) Not detected (NOT DETECT) 08/20/22 23:13 M. pneumoniae (PCR) Not detected (NOT DETECT) 08/20/22 23:13 Parainfluenza 1 (PCR) Not detected (NOT DETECT) 08/20/22 23:13 Parainfluenza 2 (PCR) Not detected (NOT DETECT) 08/20/22 23:13 Parainfluenza 3 (PCR) Not detected (NOT DETECT) 08/20/22 23:13 Parainfluenza 4 (PCR) Not detected (NOT DETECT) 08/20/22 23:13 RSV Type A (PCR) Not detected (NOT DETECT) 08/20/22 23:13 RSV Type B (PCR) Not detected (NOT DETECT) 08/20/22 23:13 Entero/Rhino (PCR) Not detected (NOT DETECT) 08/20/22 23:13 SARS-CoV-2 (PCR) Not detected (NOT DETECT) 08/20/22 23:13 Discharge Plan Discharge Patient Disposition: Admitted As Inpatient Clinical Impression: Acute exacerbation of chronic obstructive airways disease, ESRD on dialysis Condition: Fair Coding Level of Care Code ED Treasury Agent for Leann Crowley
--- NOTE | 2022-08-20 23:44 | ECG_ITS ---
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 Measurements Intervals [place] Rate: 84 P: 68 DC: 113 QRS: 76 QRSD: 70 T: 75 QT: 360 QTc: 426 Interpretive Statements SINUS RHYTHM WITH SHORT DC INTERVAL NONSPECIFIC T-WAVE ABNORMALITY Compared to ECG 08/20/2022 21:50:10 No significant changes Electronically Signed On 08-21-2022 4:41:31 COLLATING MACHINE OPERATOR by Victor Hugo Gonzalez M.D. [id number]
[2022-08-21] VITALS (22 sets, daily range): BP systolic 148–181; BP diastolic 78–106; PULSE 54–90; RESP 16–24; TEMP 36.5–36.7; O2SAT 95–100
[2022-08-21 00:17] LABS: Alanine Aminotransferase 14 U/L (0-33); Albumin Level 2.6 g/dL (3.5-5.2); Alkaline Phosphatase 76 U/L (35-105); Anion Gap 13.4 (5-19); Aspartate Amino Transferase 26 U/L (0-32); Blood Urea Nitrogen 31 mg/dL (8-23); Calcium 8.3 mg/dL (8.5-10.5); Carbon Dioxide 28 mmol/L (22-29); Chloride 102 mmol/L (98-107); Globulin 2.4 g/dL (1.3-4.6); Glomerular Filtration Rate 9.1 mL/min (90-130); Glucose 101 mg/dL (65-115); Osmolality Calculated 295 mOsm/kg (285-295); Potassium 4.4 mmol/L (3.5-5.1); Sodium 139 mmol/L (136-145); Total Bilirubin 0.2 mg/dL (0.15-1.2)
[2022-08-21 00:23] LABS: Troponin(5th) Baseline 456 ng/L (0-10)
[2022-08-21] MEDS: ipratropium-albuterol 3 mL Neb INHALATION ×8 (00:25→19:59)
[2022-08-21 00:50] LABS: NT Pro B Type Natriuretic Pept > 70000 pg/mL (0-125)
[2022-08-21 01:36] LABS: Adenovirus Not Detected (NOT DETECT); Chlamydia Pneumoniae Not Detected (NOT DETECT); Coronavirus 229E,HKU1,NL63,OC4 Not Detected (NOT DETECT); Human Metapneumovirus Not Detected (NOT DETECT); Human Rhinovirus/Enterovirus Not Detected (NOT DETECT); Influenza A Not Detected (NOT DETECT); Influenza A H1 Not Detected (NOT DETECT); Influenza A H1-2009 Not Detected (NOT DETECT); Influenza A H3 Not Detected (NOT DETECT); Influenza B Not Detected (NOT DETECT); Mycoplasma Pneumoniae Not Detected (NOT DETECT); Parainfluenza Virus Type 1 Not Detected (NOT DETECT); Parainfluenza Virus Type 2 Not Detected (NOT DETECT); Parainfluenza Virus Type 3 Not Detected (NOT DETECT); Parainfluenza Virus Type 4 Not Detected (NOT DETECT); Respiratory Syncytial Virus A Not Detected (NOT DETECT); Respiratory Syncytial Virus B Not Detected (NOT DETECT); SARS-COV-2 Not Detected (NOT DETECT)
[2022-08-21 02:04] LABS: Troponin 5 2HR 467.7 ng/L (0-10); Troponin 5 2HR Delta 11.7 ABS# (0-10)
--- NOTE | 2022-08-21 03:44 | ECG_ITS ---
[facility] Test Date: 2022-08-21 Pat Name: Hali James Department: Room: 106 Gender: Female Facility Manager: : 1955 Requested By: Bryan Mckeon Order Number: [id number] Wil MD: Victor Hugo Gonzalez M.D. Measurements Intervals [place] Rate: 79 P: 79 CA: 122 QRS: 50 QRSD: 60 T: 40 QT: 371 QTc: 426 Interpretive Statements SINUS RHYTHM Compared to ECG 08/21/2022 00:20:08 Low QRS voltage now present Short CA interval no longer present T-wave abnormality no longer present Electronically Signed On 08-21-2022 5:56:02 SEAMLESS TUBE DRAWER by Victor Hugo Gonzalez M.D. [id number]
[2022-08-21] MEDS: budesonide 0.5 mg/2 mL Neb INHALATION ×2 (08:25→19:59)
[2022-08-21] MEDS: heparin drip 25,000 UNIT/500 ML PREMIX 11.2 UNIT IV (08:26)
[2022-08-21] MEDS: BuSPIRONE 10 mg Tablet 5 MG PO ×3 (08:59→19:49)
[2022-08-21] MEDS: amlodipine 10 mg Tablet PO (08:59)
[2022-08-21] MEDS: levothyroxine 50 mcg Tablet PO (08:59)
[2022-08-21] MEDS: atorvastatin 40 mg Tablet PO (09:00)
[2022-08-21] MEDS: pantoprazole DR 40 mg Tablet PO (09:00)
[2022-08-21] MEDS: citalopram 20 mg Tablet 40 MG PO (09:25)
[2022-08-21] MEDS: aspirin 81 mg EC Tablet PO (09:25)
[2022-08-21] MEDS: metoprolol succinate ER (24 HR) 50 mg Tablet PO ×2 (09:25→19:49)
[2022-08-21] MEDS: isosorbide mononitrate ER 60 mg Tablet PO ×2 (09:25→18:23)
[2022-08-21] MEDS: cloNIDine 0.1 mg Tablet PO ×2 (09:25→19:49)
--- NOTE | 2022-08-21 09:51 | P.HP_ITS ---
Providers/Chief Complaint Admitting Physician: Preeti Padilla MD Primary Care Provider: LAWSON Masters-C Chief Complaint: sob,cough History of Present Illness Hali James is a 67 year old female 66-year-old [place] female with history of abdominal aortic aneurysm with endograft placed in 2019, anemia, past history of brain aneurysm, COPD dependent on 3 L of oxygen, history of renal artery stenosis with right renal stent, left renal nephrectomy, hypertension, hyperlipidemia, hypothyroidism, ischemic infarct with end-stage renal disease on maintenance hemodialysis presents to the ER today because of difficulty in breathing and cough which has been getting worse over last 1 week. Shortness of breath gets worse when she lies down flat. She states there are multiple family members those were sick and she was trying to stay away from them but thinks she got something from them. She goes regularly for hemodialysis and as per her has been pretty compliant with the medications and hemodialysis sessions. As per her she usually checks her blood pressures with dialysis and blood pressures are well controlled. She has not taken her medication since yesterday. Complaining of difficulty in breathing on laying down and minimal exertion recently getting worse along with on and off chest pressures.Complains of mild cough without expectoration. Denies any subjective fever or fever. Denies any nausea, vomiting, diarrhea. Denies any headache or current chest pain. Examination patient lying comfortably in bed. Had received her medications today morning. Blood pressures running at 178 over 102 mmHg with heart rate of 80 bpm saturating well on 2 L baseline oxygen supplementation. Review of Systems General: Reports: 10 or more systems reviewed and unremarkable except in HPI and below Const: Denies: fever(s), chills, body aches, change in appetite, change in weight, malaise, night sweats, diaphoresis, change in sleep pattern, daytime sleepiness or snoring Eyes: Denies: change in vision, blurry vision, photophobia, eye discomfort or eye discharge ENMT: Denies: throat pain, enlarged tonsils, hoarseness, mouth pain, oral sores, dry mouth, tinnitus, nasal congestion or post nasal drip Card: Denies: chest pain, palpitations, irregular heart rhythm, edema, swell ing of feet/ankles, lightheadedness, syncope, pre-syncope, dyspnea on exertion, orthopnea, leg pain with exertion or acrocyanosis Resp: Denies: dyspnea, productive cough, non-productive cough, wheezing, stridor, pain on inspiration, change in phlegm color, hemoptysis or chest congestion GI: Denies: abdominal pain, nausea, vomiting, hematemesis, coffee ground emesis, dysphagia, heartburn, diarrhea, constipation, bloating, GI cramping, ch vianney in bowel habits, pain on defecation, hematochezia or melena : Denies: flank pain, dysuria, urinary frequency, urinary urgency, urinary hesitancy, nocturia or hematuria Musc: Denies: neck pain, back pain, extremity pain, joint pain, joint swelling, joint redness, joint stiffness or limited range of motion Neuro: Denies: headache(s), numbness in extremities, weakness in extremities, sensory changes, lack of coordination, difficulty walking, frequent falls, dizziness, vertigo, confusion, Slurred speech present, difficulty communicating thoughts or seizure-like activity Psych: Denies: anxiety, depression, mood swings, panic attacks, hopelessness or irritability Endo: Denies: polyuria, polydipsia, tired all the time, cold intolerance, exc essive sweating, flushing or heat intolerance Bill/Lymph: Denies: easy bruising or easy bleeding All/Imm: Denies: tongue swelling, facial swelling or acute wheezing Medications/Allergies Home Medications Medication Instructions Recorded Confirmed Last Taken Type fluticasone propionate 50 2 spray intranasal DAILY PRN Nasal 02/21/20 08/21/22 08/20/22 History mcg/actuation nasal Congestion spray,suspension (Flonase Allergy Relief) albuterol sulfate 2.5 mg/3 mL 2.5 mg (3 mL) inhalation QID PRN 05/15/20 08/21/22 08/20/22 Rx (0.083 %) solution for nebulization Shortness Of Breath 30 days #75 mL epinephrine 0.3 mg/0.3 mL 0.3 mg IM Q10M PRN Allergic 10/16/20 08/21/22 Unknown History injection, auto-injector Reaction bumetanide 1 mg tablet 0.5 mg PO DAILY 06/13/21 08/21/22 08/20/22 History albuterol sulfate 90 mcg/actuation 2 puff inhalation 6XD PRN 04/05/22 08/21/22 08/20/22 Rx aerosol inhaler Shortness Of Breath #6.7 grams metoprolol succinate 50 mg 50 mg PO BID@08,2099 30 days #60 04/05/22 08/21/22 08/20/22 Rx tablet,extended release 24 hr tabs montelukast 10 mg tablet 10 mg PO DAILY@0830 #30 tabs 04/05/22 08/21/22 08/20/22 Rx nitroglycerin 0.4 mg sublingual 0.4 mg sublingual Q5M PRN Chest 04/05/22 3 06/12/22 Rx tablet (Nitrostat) Pain 30 days #30 tabs omeprazole 20 mg capsule,delayed 20 mg PO DAILY@829 30 days #30 04/05/22 08/21/22 08/20/22 Rx release caps clonidine HCl 0.1 mg tablet 0.1 mg PO BID@08,2099 #180 tabs 05/03/22 08/21/22 08/20/22 Rx isosorbide mononitrate 60 mg 60 mg PO DAILY@30 30 days #30 05/03/22 08/21/22 08/20/22 Rx tablet,extended release 24 hr tabs amlodipine 10 mg tablet 10 mg PO DAILY 05/10/22 08/21/22 08/20/22 History sevelamer carbonate 0.8 gram oral 0.4 g PO TID 06/12/22 08/21/22 08/20/22 History powder packet ondansetron 8 mg disintegrating 8 mg PO Q8H PRN nausea and 06/16/22 08/21/22 Unknown Rx tablet vomiting #90 tabs budesonide 0.5 mg/2 mL suspension 0.5 mg (2 mL) inhalation BID #120 06/21/22 08/21/22 08/20/22 Rx for nebulization (Pulmicort) mL formoterol fumarate 20 mcg/2 mL 2 ml inhalation Q12H #120 mL 06/21/22 08/21/22 08/20/22 Rx solution for nebulization (Perforomist) revefenacin 175 mcg/3 mL solution 175 mcg (3 mL) inhalation DAILY 06/21/22 08/21/22 Unknown Rx for nebulization #90 mL buspirone 5 mg tablet 5 mg PO TID #90 tabs 07/01/22 08/21/22 08/20/22 Rx citalopram 40 mg tablet 40 mg PO DAILY@0830 30 days #30 07/01/22 08/21/22 08/20/22 Rx tabs azithromycin 250 mg tablet 250 mg PO .COMPLEX COPD 90 days 07/06/22 08/21/22 08/20/22 Rx #45 tabs polyethylene glycol 3350 17 gram 8.5 g PO DAILY #100 ea 07/09/22 08/21/22 08/20/22 Rx oral powder packet (Miralax) atorvastatin 40 mg tablet 40 mg PO DAILY #30 tabs 07/16/22 08/21/22 08/20/22 Rx levothyroxine 50 mcg tablet 50 mcg PO DAILY #30 tabs 07/16/22 08/21/22 08/20/22 Rx doxycycline hyclate 100 mg tablet 100 mg PO BID #14 tabs 07/30/22 08/21/22 08/20/22 Rx aspirin 81 mg tablet,delayed 81 mg PO DAILY@0830 30 days #30 08/18/22 08/21/22 08/20/22 Rx release tabs hydroxyzine HCl 50 mg tablet 50 mg PO 0830,2100 PRN anxiety 08/21/22 08/21/22 08/20/22 History ropinirole 1 mg tablet 1 mg PO BEDTIME 08/21/22 08/21/22 08/20/22 History Allergies Allergy/AdvReac Type Severity Reaction Status Date / Time lisinopril Allergy Severe anaphylaxis Verified 08/20/22 21:42 Sulfa (Sulfonamide AdvReac Intermediate Itching, Verified 08/20/22 21:42 Antibiotics) burning PFSH Acute PFSH: Medical History (Updated 08/21/22 @ 13:53 by Micth Smith MD) AAA (abdominal aortic aneurysm) 4.1 x 4.4 x 5.7 cm 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 Anemia Atypical chest pain Brain aneurysm Chest pain Chest pain Chronic kidney disease CKD stage III, solitary kidney Chronic migraine without aura, intractable, with status migrainosus Congestive heart failure COPD (chronic obstructive pulmonary disease) COPD with acute exacerbation Depression Elevated troponin End-stage renal disease needing dialysis Endoleak post (EVAR) endovascular aneurysm repair GERD (gastroesophageal reflux disease) History of stent insertion of renal artery Hypercholesteremia Hypertension Hypertensive urgency Resolved Hyponatremia Hypothyroidism Inguinal swelling Major depressive disorder, recurrent severe without psychotic features Normal colonoscopy NSTEMI (non-ST elevated myocardial infarction) Osteoporosis Peripheral vascular disease Psychiatric care Restless leg Solitary kidney Surgical History H/O: hysterectomy History of renal stent Herculink stent History of repair of aneurysm of abdominal aorta using endovascular stent graft Hx of tonsillectomy S/P appendectomy Status post endovascular aneurysm repair (EVAR) Family History Mother CAD (coronary artery disease) Chronic kidney disease (CKD) Dementia Stroke Father CAD (coronary artery disease) Cancer Diabetes Brother CAD (coronary artery disease) Cancer Lung disease Grandfather Cancer Grandmother Diabetes Family/Other Lung disease Suicide Other Hypertension Denies family history of Clotting disorder Anesthesia complication Bleeding disorder Social History Smoking and tobacco status: former smoker Quit status (tobacco): has quit using tobacco Year quit tobacco: 2005 - PPD x 35 Years Former quit date comment: Started at age 18 Second hand smoke exposure: No Smoking risk assessment/counseling performed?: No Alcohol intake: never Desire information about alcohol rehabilitation?: No Counseling given: No Desire information about substance/drug rehabilitation?: No Counseling given: No Adopted: No Caregiver/support person: No Lives independently: Yes Household members: family and children Housing: House Marital status: / Marital status details: 2005 Number of children: 12 Number of grandchildren: 4 Highest education level completed: Master's Degree Education level details: Criminal Justice service: No Current occupational status: disabled Current occupational exposures/hazards: No Pets and animals: Yes Pets & animals: cat(s), dog(s) and farm animals Farm Animals: cattle History of recent travel: No Leisure activites: reading and other Leisure activities details: watch TV Sexually active: No Current gender identity: Female Yudy/Adventism: Judaism [employer] Special yudy needs: No Agree to transfusion: Yes Financial difficulty paying for basics: Somewhat Hard Female Reproductive History: Date of last menstrual period: 10/21/20 Para: 0 Spontaneous abortions: Yes Vitals/I&O/Wt Last Vital Signs Temp 97.7 F 08/21/22 04:25 Pulse 83 08/21/22 04:25 Resp 24 H 08/21/22 04:25 BP 181/104 08/21/22 09:25 Pulse Ox 98 08/21/22 04:25 O2 Del Method 08/21/22 04:25 O2 Flow Rate 3 08/21/22 04:25 08/20/22 08/21/22 08/21/22 22:59 06:59 14:59 Intake Total 290 / 290 Balance 290 / 290 Weight last 48 hrs Weight 40.007 kg Weight 36.741 kg Physical Exam Narrative: General: No acute distress, AO x3, NC oxygen supplementation HEENT: PERRLA, pupils bilaterally equal and reactive Chest: Bronchial breath sounds b/l, coarse crackles with occasional rhonchi all over the lung gilliam, fine crackles at bases CVS: S1-S2 regular, no murmurs, no tachycardia, no gallops, no rubs Abdomen: Soft, nontender, no organomegaly, bowel sounds present, morbidly obese Neuro: No focal deficits, no facial deformity, AO x3, power 5/5 in all limbs Data 08/20/22 23:04 08/20/22 23:28 A&P Assessment and plan (1) Shortness of breath: Most likely in setting of congestive heart failure because of uncontrolled hypertension in setting of diastolic congestive heart failure and COPD. Pneumonia less likely but patient gives history of multiple sick people or at home. COVID-19 negative, influenza negative. Check sputum culture, blood culture, MRSA swab, urine Legionella and bacterial antigen, D-dimer. History of Streptococcus pneumonia in past. Empirically will start on ceftriaxone for now. Check CT chest without contrast. (2) NSTEMI (non-ST elevated myocardial infarction): Baseline troponin more than 400 with positive delta in 2 hours. proBNP elevated. Given CKD and congestive heart failure could be type II LA but baseline is higher than usual. Patient does give history of chest pressure occasionally. Start on heparin drip. Continue with home dose of aspirin, statin, Imdur, metoprolol. Will consult cardiology for further recommendations. Check echocardiogram. (3) Congestive heart failure: Last echocardiogram June 2022 shows a normal EF with no regional motion normality. Small circumferential pericardial effusion. Requires extra sessions of dialysis. Better blood pressure control. Strict input output charting. Daily weights. IV Lasix 60 mg daily. Qualifiers: Heart failure chronicity: acute on chronic Heart failure type: unspecified Qualified Code(s): I50.9 - Heart failure, unspecified (4) COPD (chronic obstructive pulmonary disease): DuoNebs every 6 hour, budesonide twice daily. No active exacerbation so we will hold off on steroids. (5) ESRD on dialysis: Nephrology consulted. Continue dialysis sessions. (6) Hypertension: Goal blood pressure less than 140 over 90 mmHg. Blood pressure is elevated. Continue with home dose of amlodipine, metoprolol, Imdur. Increase clonidine to 0.1 3 times daily. 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 Continue medications as above. Plan Continue other chronic medications including BuSpar, citalopram, Flonase, Requip, sevelamer. Analgesia: Tylenol as needed Glycemic control: Not needed. Check A1c. Nutrition: Renal dialysis diet CODE STATUS: Full code PUD prophylaxis: Protonix DVT prophylaxis: Heparin drip will suffice as DVT prophylaxis. Discharge planning: Home with caregiver once medically stable. Admit to CSU. This documentation was created by [employer] streetcar starter software. Every effort was made to ensure accuracy of streetcar starter. Any obvious errors or omissions should be clarified with the author of the document. Attestations Medical Necessity Statement*: Admission for more than 2 midnights for managem ent of shortness of breath in setting of congestive heart failure, non-ST elevation LA in a patient with end-stage renal disease on hemodialysis and High Time for a total of 60 minutes, includes reviewing past or interval history, examining/interviewing patient, placing orders, counseling patient/family/other support, updating patient/family/other support, discussing plan of care with staff, communicating with other healthcare providers, documenting encounter and coordinating care Diagnoses Shortness of breath R06.02 NSTEMI (non-ST elevated myocardial infarction) I21.4 Congestive heart failure I50.9 Heart failure chronicity: acute on chronic Heart failure type: unspecified COPD (chronic obstructive pulmonary disease) J44.9 ESRD on dialysis N18.6; Z99.2 Hypertension I10 Endoleak post (EVAR) endovascular aneurysm repair T82.330A
[2022-08-21] MEDS: heparin 5,000 unit/mL INJ 1 mL 5000 UNIT SUBCUT (12:04)
--- NOTE | 2022-08-21 12:13 | ECG_ITS ---
[facility] Test Date: 2022-08-21 Pat Name: Hali James Department: Room: 106 Gender: Female Travel Assistant: : 1955 Requested By: Mitch Smith Order Number: [id number] Reading MD: Nabil Cazares M.D. Measurements Intervals [place] Rate: 72 P: 70 OR: 132 QRS: 91 QRSD: 69 T: 55 QT: 431 QTc: 473 Interpretive Statements SINUS RHYTHM BORDERLINE RIGHT AXIS DEVIATION [QRS AXIS > 90] Compared to ECG 08/21/2022 04:38:02 No significant changes Electronically Signed On 08-21-2022 15:19:37 HUMAN RESOURCES TECHNICIAN by Nabil Cazares M.D. [email or web address] general hospitalXiami Radiouniversity hospitals portage medical centerYDreams - Informática/store/[id number]
--- NOTE | 2022-08-21 12:52 | PC.HD ---
Patient was ID'd and assessed; electronic consent form signed by patient and all questions answered. Patient states her HD catheter only runs well when reversed, and this is how she runs at her outpatient clinic; therefore, treatment was initiated with lines reversed. Dialysis machine AP and MEAT SERVICE TEAM MEMBER pressures are acceptable.
[2022-08-21 12:57] LABS: Troponin(5th) Baseline 404 ng/L (0-10)
--- NOTE | 2022-08-21 13:01 | PC.NURSE ---
Attempted to reach Dr. Stover regarding baseline trop of 404. Unable to reach him so a voicemail was left and a msg sent via voalte.
--- NOTE | 2022-08-21 13:12 | PM.CONSULT ---
Providers/Reason For Consult Consulting Physician/Specialty*: nephrology Reason for Consult*: Nataly /Nephrology Attending Physician: Mitch Smith MD Primary Care Provider: HERBERT Masters History of Present Illness History of Present Illness Hali James is a Patient is a 67-year-old female with past medical history of coronary artery disease hypertension end-stage renal 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 history of left nephrectomy. Patient was recently started on dialysis in June 2022. She presented to the emergency department complaining of shortness of breath that started 4 days ago progressively worsening. Patient is on 2 L nasal cannula at home. In ER patient was noted to be hypoxic. Past medical history otherwise significant for history of AAA, COPD, CHF. Lab data is significant for hemoglobin of 11.5 patient was noted to have pulmonary vascular. Patient currently getting dialysis. Review of Systems Narrative: other ROS negative Medications/Allergies Home Medications Medication Instructions Recorded Confirmed Last Taken Type fluticasone propionate 50 2 spray intranasal DAILY PRN Nasal 02/21/20 08/21/22 08/20/22 History mcg/actuation nasal Congestion spray,suspension (Flonase Allergy Relief) albuterol sulfate 2.5 mg/3 mL 2.5 mg (3 mL) inhalation QID PRN 05/15/20 08/21/22 08/20/22 Rx (0.083 %) solution for nebulization Shortness Of Breath 30 days #75 mL epinephrine 0.3 mg/0.3 mL 0.3 mg IM Q10M PRN Allergic 10/16/20 08/21/22 Unknown History injection, auto-injector Reaction bumetanide 1 mg tablet 0.5 mg PO DAILY 06/13/21 08/21/22 08/20/22 History albuterol sulfate 90 mcg/actuation 2 puff inhalation 6XD PRN 04/05/22 08/21/22 08/20/22 Rx aerosol inhaler Shortness Of Breath #6.7 grams metoprolol succinate 50 mg 50 mg PO BID@0830,2100 30 days #60 04/05/22 08/21/22 08/20/22 Rx tablet,extended release 24 hr tabs montelukast 10 mg tablet 10 mg PO DAILY@0830 #30 tabs 04/05/22 08/21/22 08/20/22 Rx nitroglycerin 0.4 mg sublingual 0.4 mg sublingual Q5M PRN Chest 04/05/22 08/21/22 06/12/22 Rx tablet (Nitrostat) Pain 30 days #30 tabs omeprazole 20 mg capsule,delayed 20 mg PO DAILY@0830 30 days #30 04/05/22 08/21/22 08/20/22 Rx release caps clonidine HCl 0.1 mg tablet 0.1 mg PO BID@0830,2100 #180 tabs 05/03/22 08/21/22 08/20/22 Rx isosorbide mononitrate 60 mg 60 mg PO DAILY@0830 30 days #30 05/03/22 08/21/22 08/20/22 Rx tablet,extended release 24 hr tabs amlodipine 10 mg tablet 10 mg PO DAILY 05/10/22 08/21/22 08/20/22 History sevelamer carbonate 0.8 gram oral 0.4 g PO TID 06/12/22 08/21/22 08/20/22 History powder packet ondansetron 8 mg disintegrating 8 mg PO Q8H PRN nausea and 06/16/22 08/21/22 Unknown Rx tablet vomiting #90 tabs budesonide 0.5 mg/2 mL suspension 0.5 mg (2 mL) inhalation BID #120 06/21/22 08/21/22 08/20/22 Rx for nebulization (Pulmicort) mL formoterol fumarate 20 mcg/2 mL 2 ml inhalation Q12H #120 mL 06/21/22 08/21/22 08/20/22 Rx solution for nebulization (Perforomist) revefenacin 175 mcg/3 mL solution 175 mcg (3 mL) inhalation DAILY 06/21/22 08/21/22 Unknown Rx for nebulization #90 mL buspirone 5 mg tablet 5 mg PO TID #90 tabs 07/01/22 08/21/22 08/20/22 Rx citalopram 40 mg tablet 40 mg PO DAILY@0830 30 days #30 07/01/22 08/21/22 08/20/22 Rx tabs azithromycin 250 mg tablet 250 mg PO .COMPLEX COPD 90 days 07/06/22 08/21/22 08/20/22 Rx #45 tabs polyethylene glycol 3350 17 gram 8.5 g PO DAILY #100 ea 07/09/22 08/21/22 08/20/22 Rx oral powder packet (Miralax) atorvastatin 40 mg tablet 40 mg PO DAILY #30 tabs 07/16/22 08/21/22 08/20/22 Rx levothyroxine 50 mcg tablet 50 mcg PO DAILY #30 tabs 07/16/22 08/21/22 08/20/22 Rx doxycycline hyclate 100 mg tablet 100 mg PO BID #14 tabs 07/30/22 08/21/22 08/20/22 Rx aspirin 81 mg tablet,delayed 81 mg PO DAILY@0830 30 days #30 08/18/22 08/21/22 08/20/22 Rx release tabs hydroxyzine HCl 50 mg tablet 50 mg PO 0830,2100 PRN anxiety 08/21/22 08/21/22 08/20/22 History ropinirole 1 mg tablet 1 mg PO BEDTIME 08/21/22 08/21/22 08/20/22 History Allergies Allergy/AdvReac Type Severity Reaction Status Date / Time lisinopril Allergy Severe anaphylaxis Verified 08/20/22 21:42 Sulfa (Sulfonamide AdvReac Intermediate Itching, Verified 08/20/22 21:42 Antibiotics) burning Current Medications Generic Name Dose Route Start Last Admin Trade Name Freq PRN Reason Stop Dose Admin Albuterol/Ipratropium 3 ml 08/21/22 08:00 08/21/22 11:28 Ipratropium-Albuterol 3 Ml Neb INHALATION 3 ml QID.RESPIRATORY APOLONIA Administration Amlodipine Besylate 10 mg 08/21/22 09:00 08/21/22 08:59 Amlodipine 10 Mg Tablet PO 10 mg DAILY APOLONIA Administration Aspirin 81 mg 08/21/22 08:30 08/21/22 09:25 Aspirin 81 Mg Ec Tablet PO 81 mg DAILY@0830 APOLONIA Administration Atorvastatin Calcium 40 mg 08/21/22 09:00 08/21/22 09:00 Atorvastatin 40 Mg Tablet PO 40 mg DAILY APOLONIA Administration Budesonide 0.5 mg 08/21/22 08:00 08/21/22 08:25 Budesonide 0.5 Mg/2 Ml Neb INHALATION 0.5 mg BID.RESPIRATORY APOLONIA Administration Buspirone HCl 5 mg 08/21/22 09:00 08/21/22 08:59 Buspirone 10 Mg Tablet PO 5 mg TID APOLONIA Administration Citalopram Hydrobromide 40 mg 08/21/22 08:30 08/21/22 09:25 Citalopram 20 Mg Tablet PO 40 mg DAILY@0830 APOLONIA Administration Heparin Sodium (Porcine) 5,000 unit 08/21/22 10:00 08/21/22 12:04 Heparin 5,000 Unit/Ml Inj 1 Ml SUBCUT 5,000 unit Q12H APOLONIA Administration Levothyroxine Sodium 50 mcg 08/21/22 09:00 08/21/22 08:59 Levothyroxine 50 Mcg Tablet PO 50 mcg DAILY APOLONIA Administration Metoprolol Succinate 50 mg 08/21/22 08:30 08/21/22 09:25 Metoprolol Succinate Er (24 Hr) 50 Mg Tablet PO 50 mg BID@0830,2100 APOLONIA Administration Non-Formulary Medication 0.4 gm 08/21/22 09:00 08/21/22 09:00 Sevelamer Carbonate PO 0.4 gm TID APOLONIA Administration Pantoprazole Sodium 40 mg 08/21/22 09:00 08/21/22 09:[address] 40 Mg Tablet PO 40 mg DAILY APOLONIA Administration PFSH Acute PFSH: Medical History AAA (abdominal aortic aneurysm) 4.1 x 4.4 x 5.7 cm 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 Anemia Atypical chest pain Brain aneurysm Chest pain Chest pain Chronic kidney disease CKD stage III, solitary kidney Chronic migraine without aura, intractable, with status migrainosus Congestive heart failure COPD (chronic obstructive pulmonary disease) COPD with acute exacerbation Depression Elevated troponin End-stage renal disease needing dialysis [place] post (EVAR) endovascular aneurysm repair ESRD (end stage renal disease) GERD (gastroesophageal reflux disease) History of stent insertion of renal artery Hypercholesteremia Hypertension Hypertensive urgency Resolved Hyponatremia Hypothyroidism Inguinal swelling Major depressive disorder, recurrent severe without psychotic features Normal colonoscopy NSTEMI (non-ST elevated myocardial infarction) Osteoporosis Peripheral vascular disease Psychiatric care Restless leg Solitary kidney Surgical History H/O: hysterectomy History of renal stent Herculink stent History of repair of aneurysm of abdominal aorta using endovascular stent graft Hx of tonsillectomy S/P appendectomy Status post endovascular aneurysm repair (EVAR) Family History Mother CAD (coronary artery disease) Chronic kidney disease (CKD) Dementia Stroke Father CAD (coronary artery disease) Cancer Diabetes Brother CAD (coronary artery disease) Cancer Lung disease Grandfather Cancer Grandmother Diabetes Family/Other Lung disease Suicide Other Hypertension Denies family history of Clotting disorder Anesthesia complication Bleeding disorder Social History Smoking and tobacco status: former smoker Quit status (tobacco): has quit using tobacco Year quit tobacco: 2005 - PPD x 35 Years Former quit date comment: Started at age 18 Second hand smoke exposure: No Smoking risk assessment/counseling performed?: No Alcohol intake: never Desire information about alcohol rehabilitation?: No Counseling given: No Desire information about substance/drug rehabilitation?: No Counseling given: No Adopted: No Caregiver/support person: No Lives independently: Yes Household members: family and children Housing: House Marital status: / Marital status details: 2005 Number of children: 12 Number of grandchildren: 4 Highest education level completed: Master's Degree Education level details: Criminal Justice service: No Current occupational status: disabled Current occupational exposures/hazards: No Pets and animals: Yes Pets & animals: cat(s), dog(s) and farm animals Farm Animals: cattle History of recent travel: No Leisure activites: reading and other Leisure activities details: watch TV Sexually active: No Current gender identity: Female Yudy/Mu-Ism: [employer] Special yudy needs: No Agree to transfusion: Yes Financial difficulty paying for basics: Somewhat Hard Female Reproductive History: Date of last menstrual period: 10/21/20 Para: 0 Spontaneous abortions: Yes Vitals/I&O/Wt Last Vital Signs Temp 97.7 F 08/21/22 12:50 Pulse 81 08/21/22 12:50 Resp 16 08/21/22 12:50 BP 148/99 08/21/22 12:50 Pulse Ox 98 08/21/22 11:31 O2 Del Method 08/21/22 11:31 O2 Flow Rate 2 08/21/22 11:31 08/20/22 08/21/22 08/21/22 22:59 06:59 14:59 Intake Total 290 / 290 Balance 290 / 290 Weight last 48 hrs Weight 40.007 kg Weight 36.741 kg Physical Exam Narrative: Patient is awake and alert, no acute distress HEENT Crackles per report S1-S2 regular rate and rhythm per report Has edema Data 08/20/22 23:04 08/20/22 23:28 A&P Assessment and plan (1) ESRD on dialysis: Plan End-stage renal disease: On dialysis per Tuesday schedule as outpatient, patient presents with volume overload. Plan for dialysis today with 3 to 4 L UF hypertension Hypertension: Blood pressure controlled, restart home medications Acute on chronic respiratory failure: Multifactorial secondary to COPD volume overload, neurology as above, gram sodium restriction and 1500 mill fluid restriction Patient evaluated using audiovisual cart. Time spent 35 minutes Consult Attestations Medical Necessity Statement: per medicine,esrd, sob Coding Level of Care Code Acute Code for Chg Fwd Diagnoses ESRD on dialysis N18.6; Z99.2
--- NOTE | 2022-08-21 13:52 | CTR_ITS ---
PROCEDURE INFORMATION: Exam: CT Chest Without Contrast; Diagnostic Exam date and time: 08/21/2022 7:14 PM Age: 67 years old Clinical indication: Shortness of breath and other: Pneumonia; Additional info: SOB, pna TECHNIQUE: Imaging protocol: Diagnostic computed tomography of the chest without contrast. Radiation optimization: All CT scans at this facility use at least one of these dose optimization techniques: automated exposure control; mA and/or kV adjustment per patient size (includes targeted exams where dose is matched to clinical indication); or iterative reconstruction. Other protocol: This patient has received 6 known CTs and 0 known cardiac nuclear medicine studies in the 12 months prior to the current study. COMPARISON: CT chest abd pel w con* 11/05/2021 1:29 AM RADIATION DOSE METRICS: Total DLP (mGy-cm): 183.03 FINDINGS: Tubes, catheters and devices: There is a dialysis catheter placed via right jugular approach whose tip terminates in the right atrium. The Lungs: There is a small left basilar pleural effusion with adjacent consolidation likely secondary to atelectasis. Remaining lung gilliam are aerated and clear. There is evidence of COPD with upper lobe emphysematous changes. Pleural spaces: See Lungs finding. Heart: Heart is not enlarged. There is a small pericardial effusion that has developed. Coronary arteries: There is extensive calcification of coronary arteries. Lymph nodes: Unremarkable. No enlarged lymph nodes. Vasculature: Patient has undergone prior EVAR of a thoracoabdominal aortic aneurysm which is partially visualized. Kidneys and ureters: [place] kidneys are markedly atrophic consistent with end-stage renal disease. Bones/joints: There are mild compression fractures involving T7-T8 and T12 vertebral bodies some of which have developed from previous exam. Soft tissues: Unremarkable. CT/CT chest wo con [id number] IMPRESSION: 1. Small left basilar pleural effusion and adjacent atelectasis. 2. COPD with scattered emphysematous changes. 3. Extensive calcification of the coronary arteries with interval development of small pericardial effusion. 4. Additional findings as above. COMMENTS: In the absence of a history or active diagnosis of lung cancer, it is recommended that this patient with emphysema be evaluated for enrollment in a low dose CT lung cancer screening program.
[2022-08-21] MEDS: heparin drip 25,000 UNIT/500 ML PREMIX 11 UNIT IV (14:00)
--- NOTE | 2022-08-21 14:47 | PM.CONSULT ---
Providers/Reason For Consult Consulting Physician/Specialty*: Cardiovascular medicine Reason for Consult*: Elevated troponin Requesting Physician: Hospitalist Attending Physician: Mitch Smith MD Primary Care Provider: HERBERT Masters History of Present Illness History of Present Illness Hali Jmaes is a 67 year old female who is seriously chronically unwell. She is frail with a long list of medical problems not the least of which is end-stage renal disease on hemodialysis. She came into the hospital emergency room this morning short of breath and not feeling well for about a week. She has had paroxysmal nocturnal dyspnea and orthopnea. There is some nebulous chest pain. When she arrived at the emergency room her blood pressure was 178 systolic. She has been admitted and her first troponin was 456, the second 467 and the third 439. Her BNP is over 70,000. Her creatinine is chronically high. Currently she is in the dialysis unit being dialyzed. She took her blood pressure medications earlier and now her blood pressure is running in the 60s and 70s. She is not feeling well. She is short of breath and is nauseated. Her EKGs reveal sinus rhythm with nonspecific ST and T wave changes. She has had 4 EKGs all of which are unchanged. Her chest x-ray is actually stable and does not show any evidence of overt heart failure. She has stable COPD Her list of medical problems includes a AAA status post endovascular repair. She does have an endoleak. She has anemia and may have myelodysplastic syndrome. She sees oncology. She has chronic headaches, history of diastolic heart failure, prior tobacco abuse. She is left with oxygen dependent COPD. She has ill-defined peripheral arterial disease. She has renal artery stenosis and has had a stent placed in 1 renal artery. Other problems include hypothyroidism, depression, hypertension, dyslipidemia and an ill-defined central nervous system aneurysm. She had an echo done 2 months ago which showed an ejection fraction of 60% with no regional wall motion abnormalities and a small pericardial effusion. Today she is not really interested in communicating very much. She answers questions with one-word answers. Review of Systems Narrative: Extensive review of systems is unavailable due to her clinical state. Medications/Allergies Home Medications Medication Instructions Recorded Confirmed Last Taken Type fluticasone propionate 50 2 spray intranasal DAILY PRN Nasal 02/21/20 08/21/22 08/20/22 History mcg/actuation nasal Congestion spray,suspension (Flonase Allergy Relief) albuterol sulfate 2.5 mg/3 mL 2.5 mg (3 mL) inhalation QID PRN 05/15/20 08/21/22 08/20/22 Rx (0.083 %) solution for nebulization Shortness Of Breath 30 days #75 mL epinephrine 0.3 mg/0.3 mL 0.3 mg IM Q10M PRN Allergic 10/16/20 08/21/22 Unknown History injection, auto-injector Reaction bumetanide 1 mg tablet 0.5 mg PO DAILY 06/13/21 08/21/22 08/20/22 History albuterol sulfate 90 mcg/actuation 2 puff inhalation 6XD PRN 04/05/22 08/21/22 08/20/22 Rx aerosol inhaler Shortness Of Breath #6.7 grams metoprolol succinate 50 mg 50 mg PO BID@829,2099 30 days #60 04/05/22 08/21/22 08/20/22 Rx tablet,extended release 24 hr tabs montelukast 10 mg tablet 10 mg PO DAILY@829 #30 tabs 04/05/22 08/21/22 08/20/22 Rx nitroglycerin 0.4 mg sublingual 0.4 mg sublingual Q5M PRN Chest 04/05/22 08/21/22 06/12/22 Rx tablet (Nitrostat) Pain 30 days #30 tabs omeprazole 20 mg capsule,delayed 20 mg PO DAILY@829 30 days #30 04/05/22 08/21/22 08/20/22 Rx release caps clonidine HCl 0.1 mg tablet 0.1 mg PO BID@ #180 tabs 05/03/22 08/21/22 08/20/22 Rx isosorbide mononitrate 60 mg 60 mg PO DAILY@829 30 days #30 05/03/22 08/21/22 08/20/22 Rx tablet,extended release 24 hr tabs amlodipine 10 mg tablet 10 mg PO DAILY 05/10/22 08/21/22 08/20/22 History sevelamer carbonate 0.8 gram oral 0.4 g PO TID 06/12/22 08/21/22 08/20/22 History powder packet ondansetron 8 mg disintegrating 8 mg PO Q8H PRN nausea and 12/07/22 02/11/23 Unknown Rx tablet vomiting #90 tabs budesonide 0.5 mg/2 mL suspension 0.5 mg (2 mL) inhalation BID #120 06/21/22 08/21/22 08/20/22 Rx for nebulization (Pulmicort) mL formoterol fumarate 20 mcg/2 mL 2 ml inhalation Q12H #120 mL 06/21/22 08/21/22 08/20/22 Rx solution for nebulization (Perforomist) revefenacin 175 mcg/3 mL solution 175 mcg (3 mL) inhalation DAILY 06/21/22 08/21/22 Unknown Rx for nebulization #90 mL buspirone 5 mg tablet 5 mg PO TID #90 tabs 07/01/22 08/21/22 08/20/22 Rx citalopram 40 mg tablet 40 mg PO DAILY@0830 30 days #30 07/01/22 08/21/22 08/20/22 Rx tabs azithromycin 250 mg tablet 250 mg PO .COMPLEX COPD 90 days 07/06/22 08/21/22 08/20/22 Rx #45 tabs polyethylene glycol 3350 17 gram 8.5 g PO DAILY #100 ea 07/09/22 08/21/22 08/20/22 Rx oral powder packet (Miralax) atorvastatin 40 mg tablet 40 mg PO DAILY #30 tabs 07/16/22 08/21/22 08/20/22 Rx levothyroxine 50 mcg tablet 50 mcg PO DAILY #30 tabs 07/16/22 08/21/22 08/20/22 Rx doxycycline hyclate 100 mg tablet 100 mg PO BID #14 tabs 07/30/22 08/21/22 08/20/22 Rx aspirin 81 mg tablet,delayed 81 mg PO DAILY@0830 30 days #30 08/18/22 08/21/22 08/20/22 Rx release tabs hydroxyzine HCl 50 mg tablet 50 mg PO 0830,2100 PRN anxiety 08/21/22 08/21/22 08/20/22 History ropinirole 1 mg tablet 1 mg PO BEDTIME 08/21/22 08/21/22 08/20/22 History Allergies Allergy/AdvReac Type Severity Reaction Status Date / Time lisinopril Allergy Severe anaphylaxis Verified 08/20/22 21:42 Sulfa (Sulfonamide AdvReac Intermediate Itching, Verified 08/20/22 21:42 Antibiotics) burning Current Medications Generic Name Dose Route Start Last Admin Trade Name Marcell PRN Reason Stop Dose Admin Albuterol/Ipratropium 3 ml 08/21/22 08:00 08/21/22 11:28 Ipratropium-Albuterol 3 Ml Neb INHALATION 3 ml QID.RESPIRATORY APOLONIA Administration Amlodipine Besylate 10 mg 08/21/22 09:00 08/21/22 08:59 Amlodipine 10 Mg Tablet PO 10 mg DAILY APOLONIA Administration Aspirin 81 mg 08/21/22 08:30 08/21/22 09:25 Aspirin 81 Mg Ec Tablet PO 81 mg DAILY@0830 APOLONIA Administration Atorvastatin Calcium 40 mg 08/21/22 09:00 08/21/22 09:00 Atorvastatin 40 Mg Tablet PO 40 mg DAILY APOLONIA Administration Budesonide 0.5 mg 08/21/22 08:00 08/21/22 08:25 Budesonide 0.5 Mg/2 Ml Neb INHALATION 0.5 mg BID.RESPIRATORY APOLONIA Administration Buspirone HCl 5 mg 08/21/22 09:00 08/21/22 08:59 Buspirone 10 Mg Tablet PO 5 mg TID APOLONIA Administration Citalopram Hydrobromide 40 mg 08/21/22 08:30 08/21/22 09:25 Citalopram 20 Mg Tablet PO 40 mg DAILY@0830 APOLONIA Administration Levothyroxine Sodium 50 mcg 08/21/22 09:00 08/21/22 08:59 Levothyroxine 50 Mcg Tablet PO 50 mcg DAILY APOLONIA Administration Metoprolol Succinate 50 mg 08/21/22 08:30 08/21/22 09:25 Metoprolol Succinate Er (24 Hr) 50 Mg Tablet PO 50 mg BID@0830,2100 APOLONIA Administration Non-Formulary Medication 0.4 gm 08/21/22 09:00 08/21/22 09:00 Sevelamer Carbonate PO 0.4 gm TID APOLONIA Administration Pantoprazole Sodium 40 mg 08/21/22 09:00 08/21/22 09:[address] 40 Mg Tablet PO 40 mg DAILY APOLONIA Administration PFSH Acute PFSH: Medical History (Updated 08/21/22 @ 14:55 by Nabil Cazares MD) AAA (abdominal aortic aneurysm) 4.1 x 4.4 x 5.7 cm 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 Anemia Atypical chest pain Brain aneurysm Chest pain Chest pain Chronic kidney disease CKD stage III, solitary kidney Chronic migraine without aura, intractable, with status migrainosus Congestive heart failure COPD (chronic obstructive pulmonary disease) COPD with acute exacerbation Depression Elevated troponin End-stage renal disease needing dialysis Endoleak post (EVAR) endovascular aneurysm repair GERD (gastroesophageal reflux disease) History of stent insertion of renal artery Hypercholesteremia Hypertension Hypertensive urgency Resolved Hyponatremia Hypothyroidism Inguinal swelling Major depressive disorder, recurrent severe without psychotic features Normal colonoscopy NSTEMI (non-ST elevated myocardial infarction) Osteoporosis Peripheral vascular disease Psychiatric care Restless leg Solitary kidney Surgical History (Updated 08/21/22 @ 14:55 by Nabil Cazares MD) H/O: hysterectomy History of renal stent Herculink stent History of repair of aneurysm of abdominal aorta using endovascular stent graft Hx of tonsillectomy S/P appendectomy Status post endovascular aneurysm repair (EVAR) Family History Mother CAD (coronary artery disease) Chronic kidney disease (CKD) Dementia Stroke Father CAD (coronary artery disease) Cancer Diabetes Brother CAD (coronary artery disease) Cancer Lung disease Grandfather Cancer Grandmother Diabetes Family/Other Lung disease Suicide Other Hypertension Denies family history of Clotting disorder Anesthesia complication Bleeding disorder Social History Smoking and tobacco status: former smoker Quit status (tobacco): has quit using tobacco Year quit tobacco: 2005 - PPD x 35 Years Former quit date comment: Started at age 18 Second hand smoke exposure: No Smoking risk assessment/counseling performed?: No Alcohol intake: never Desire information about alcohol rehabilitation?: No Counseling given: No Desire information about substance/drug rehabilitation?: No Counseling given: No Adopted: No Caregiver/support person: No Lives independently: Yes Household members: family and children Housing: House Marital status: / Marital status details: 2006 Number of children: 12 Number of grandchildren: 4 Highest education level completed: Master's Degree Education level details: Criminal Justice service: No Current occupational status: disabled Current occupational exposures/hazards: No Pets and animals: Yes Pets & animals: cat(s), dog(s) and farm animals Farm Animals: cattle History of recent travel: No Leisure activites: reading and other Leisure activities details: watch TV Sexually active: No Current gender identity: Female Yudy/Evangelical: Confucianism [employer] Special yudy needs: No Agree to transfusion: Yes Financial difficulty paying for basics: Somewhat Hard Female Reproductive History: Date of last menstrual period: 10/21/20 Para: 0 Spontaneous abortions: Yes Vitals/I&O/Wt Last Vital Signs Temp 97.7 F 08/21/22 12:50 Pulse 81 08/21/22 12:50 Resp 16 08/21/22 12:50 BP 148/99 08/21/22 12:50 Pulse Ox 98 08/21/22 11:31 O2 Del Method 08/21/22 11:31 O2 Flow Rate 2 08/21/22 11:31 08/20/22 08/21/22 08/21/22 22:59 06:59 14:59 Intake Total 290 / 290 Balance 290 / 290 Weight last 48 hrs Weight 88 lb 3.2 oz Weight 81 lb Physical Exam Narrative: GENERAL: In general she is quiet, not very communicative, very slight and frail and cachectic being dialyzed. HEENT: Exam within normal limits. NECK: Supple without jugular vein distention. The carotid upstroke is normal without bruits. BACK: Exam normal. LUNGS: Clear. HEART: Regular rate and rhythm. ABDOMEN: Benign without organomegaly or tenderness. EXTREMITIES: No edema. NEUROLOGIC: Exam normal. SKIN: Unremarkable. Data 08/20/22 23:04 08/20/22 23:28 A&P Assessment and plan (1) Hypertension: (2) Acute exacerbation of chronic obstructive airways disease: (3) Congestive heart failure: Qualifiers: Heart failure chronicity: acute on chronic Heart failure type: unspecified Qualified Code(s): I50.9 - Heart failure, unspecified (4) ESRD on dialysis: (5) Elevated troponin: (6) Thrombocytopenia: (7) AAA (abdominal aortic aneurysm): Qualifiers: Presence of rupture: without rupture Qualified Code(s): I71.4 - Abdominal aortic aneurysm, without rupture Plan She should probably have coronary angiography at some point. When I was speaking to the hospitalist over the telephone we discussed this however now that I have seen her and see how frail she is and the fact that she is now hypotensive, nauseated and not feeling well we will postpone any angiography for today. We will reassess in the morning and see if she is capable of undergoing an angiogram. The troponin elevation could easily be as a result of her heart failure, stiff ventricle and underlying hemodialysis. At some point she should probably have testing to rule out ischemic disease. If she remains this frail then perhaps stress testing would be in order to at least stratify her risk. Consult Attestations Medical Necessity Statement: Hospitalization for management of heart failure and renal failure. and High Time for a total of 60 minutes, includes reviewing past or interval history, examining/interviewing patient, counseling patient/family/other support, discussing plan of care with staff and communicating with other healthcare providers Other Coding Information Prolonged care (total time indicated above or notated here) Diagnoses Hypertension I10 Acute exacerbation of chronic obstructive airways disease J44.1 Congestive heart failure I50.9 Heart failure chronicity: acute on chronic Heart failure type: unspecified ESRD on dialysis N18.6; Z99.2 Elevated troponin R77.8 Thrombocytopenia D69.6 AAA (abdominal aortic aneurysm) I71.4 Presence of rupture: without rupture
--- NOTE | 2022-08-21 14:55 | ECG_ITS ---
[facility] Test Date: 2022-08-21 Pat Name: Hali James Department: Room: 106 Gender: Female Blood Tester Fowl: : 1955 Requested By: Mitch Smith Order Number: [id number] Reading MD: Nabil Cazares M.D. Measurements Intervals [place] Rate: 68 P: 72 [place]: 123 QRS: 85 QRSD: 68 T: 33 QT: 349 QTc: 373 Interpretive Statements SINUS RHYTHM NONSPECIFIC T-WAVE ABNORMALITY Compared to ECG 08/21/2022 12:18:56 T-wave abnormality now present Electronically Signed On 08-21-2022 15:20:15 CONTROL SYSTEMS ENGINEER by Nabil Cazares M.D. [id number]
[2022-08-21 15:11] LABS: Platelet Count 112 10^3/cmm (130-400)
[2022-08-21] MEDS: acetaminophen 325 mg Tablet 650 MG PO (16:16)
[2022-08-21] MEDS: cefTRIAXone 1,000 MG in sodium chloride 0.9% (plus) 50 ML 100 MG IV (16:21)
--- NOTE | 2022-08-21 18:13 | ECG_ITS ---
[facility] Test Date: 2022-08-21 Pat Name: Hali James Department: Room: 106 Gender: Female Sole Leveler: : 1955 Requested By: Mitch Smith Order Number: [id number] Reading MD: Nabil Cazares M.D. Measurements Intervals [place] Rate: 69 P: 74 MT: 123 QRS: 86 QRSD: 69 T: 42 QT: 398 QTc: 427 Interpretive Statements SINUS RHYTHM NONSPECIFIC T-WAVE ABNORMALITY Compared to ECG 08/21/2022 14:55:24 No significant changes Electronically Signed On 08-22-2022 8:42:35 PULLEY MAN by Nabil Cazares M.D. [id number]
[2022-08-21] MEDS: ropinirole 1 mg Tablet PO (19:49)
--- NOTE | 2022-08-21 19:52 | PC.NURSE ---
Rocephin not administered as ordered due to no IV access per BRIANNA Higginbotham. Several attempts have been made to obtain access throughout the day. Ultrasound at bedside presently and has been used without success. Will continue to monitor.
[2022-08-21 20:33] LABS: Partial Thromboplastin Time 54.8 SECONDS (23.9-36.7)
[2022-08-21] MEDS: heparin 5,000 unit/mL INJ 1 mL IV (20:51)
[2022-08-22] VITALS (16 sets, daily range): BP systolic 143–175; BP diastolic 76–104; PULSE 67–84; RESP 16–23; TEMP 37.2; O2SAT 94–98
--- NOTE | 2022-08-22 00:14 | PC.NURSE ---
Numerous attempts have been made to acquire second IV access on this patient including using ultrasound. Patient is very fragile and the veins keep blowing . Patient's arms are heavily bruised. Informed Dr Padilla. Waiting response.
[2022-08-22 03:52] LABS: Basophils % 0.3 %; Hematocrit 29.8 % (37.0-47.0); Hemoglobin 8.6 g/dL (11.5-15.3); Mean Corpuscular HGB Conc 28.9 g/dL (30.0-36.0); Mean Corpuscular Hemoglobin 30.1 pg (28.0-34.0); Mean Corpuscular Volume 104.2 fl (81-99); Mean Platelet Volume 10.7 fL (7.4-10.4); Monocytes # 0.4 10^3/uL (0.2-0.9); Monocytes % 5.1 %; Neutrophils # 3.79 10^3/uL (1.8-7.7); Neutrophils % 52.3 %; Nucleated Red Blood Cells % 0 %; Platelet Count 103 10^3/cmm (130-400); Red Blood Count 2.86 10^6/uL (4.1-5.3); Red Cell Distribution Width 17.5 % (12.1-15.1); White Blood Count 7.2 10^3/uL (4.0-10.0)
[2022-08-22 04:14] LABS: Alanine Aminotransferase 12 U/L (0-33); Albumin Level 2.8 g/dL (3.5-5.2); Alkaline Phosphatase 52 U/L (35-105); Anion Gap 14.4 (5-19); Aspartate Amino Transferase 19 U/L (0-32); Blood Urea Nitrogen 21 mg/dL (8-23); Calcium 8.2 mg/dL (8.5-10.5); Carbon Dioxide 26 mmol/L (22-29); Chloride 98 mmol/L (98-107); Chol HDL Ratio 2.74 mg/dL (0.0-4.40); Cholesterol 159 mg/dL (0-200); Globulin 2.1 g/dL (1.3-4.6); Glomerular Filtration Rate 13.1 mL/min (90-130); Glucose 83 mg/dL (65-115); HDL Cholesterol 58 mg/dL (60-100); LDL Cholesterol Calculated 81 mg/dL (50-129); Magnesium 1.8 mg/dL (1.7-2.3); Osmolality Calculated 280 mOsm/kg (285-295); Partial Thromboplastin Time 87.2 SECONDS (23.9-36.7); Phosphorus 2.8 mg/dL (2.5-4.5); Potassium 4.4 mmol/L (3.5-5.1); Sodium 134 mmol/L (136-145); Total Bilirubin 0.2 mg/dL (0.15-1.2); Total Protein 4.9 g/dL (6.6-8.7); Triglycerides 102 mg/dL (0-150); VLDL Cholestrol Calculation 20 mg/dL (0-30)
--- NOTE | 2022-08-22 06:00 | USCV_ITS ---
Hali James Age: 67 Gender: F : 1955 Exam Date: 08/22/2022 09:05 Ordering Phys: Mitch Smith MD Technologist: HUMA Exam Location: [facility] [place] Indication: nstemi BP: / HR: Rhythm: Sinus Technical Quality: Adequate MEASUREMENTS (Male / Female) Normal Values FINDINGS Left Ventricle This study is limited to the apical and subcostal views. Very little Doppler examination was obtained. There is mild to moderate concentric left ventricular hypertrophy with normal left ventricular function. No regional wall motion disturbances. Diastolic function was not assessed. Ejection fraction is 65%. Right Ventricle Normal right ventricular size and systolic function. Right Atrium Right atrium not well visualized. Left Atrium Left atrium not well visualized. Mitral Valve Structurally normal mitral valve. There is at least mild mitral regurgitation. Brief Doppler interrogation was done from the apical view. Aortic Valve Structurally normal trileaflet aortic valve. Tricuspid Valve Structurally normal tricuspid valve. Pulmonic Valve Structurally normal pulmonic valve. Pericardium There is a small hemodynamically insignificant pericardial effusion. Aorta Normal ascending aorta dimension. IVC The inferior vena cava appears normal. CONCLUSIONS This study is limited to the apical and subcostal views. Very little Doppler examination was obtained. There is mild to moderate concentric left ventricular hypertrophy with normal left ventricular function. No regional wall motion disturbances. Diastolic function was not assessed. Ejection fraction is 65%. Structurally normal mitral valve. There is at least mild mitral regurgitation. Brief Doppler interrogation was done from the apical view. There is a small hemodynamically insignificant pericardial effusion. The previous echo was 2 months ago and is unchanged. Dr. Nabil Cazares MD (Electronically Signed) Final Date: 22 August 2022 11:39 S
[2022-08-22 07:28] LABS: Estmated Average Glucose 59; Hemoglobin A1C 3.7 % (4.0-6.0)
--- NOTE | 2022-08-22 07:50 | P.PN_ITS ---
Subjective Subjective: Talia is much more alert and talkative today. She is much less short of breath. She is having no chest pain.She was hypotensive during dialysis yesterday but this morning she is very hypertensive. Her blood pressure is 170/120. Vitals/I&O/Wt Last Vital Signs Temp 97.7 F 08/21/22 12:50 Pulse 67 08/22/22 03:17 Resp 20 H 08/22/22 03:17 BP 175/104 08/22/22 03:17 Pulse Ox 98 08/22/22 03:17 O2 Del Method 08/22/22 03:17 O2 Flow Rate 2.5 08/22/22 03:17 08/21/22 08/22/22 08/22/22 22:59 06:59 14:59 Intake Total 682.017 / 1173.964 331.4 / 1505.364 Balance 682.017 / 1173.964 331.4 / 1505.364 Weight last 48 hrs Weight 88 lb 3.2 oz Weight 81 lb Physical Exam Narrative: GENERAL: In general she is alert and awake today less short of breath, hypertensive, frail HEENT: Exam within normal limits. NECK: Supple without jugular vein distention. The carotid upstroke is normal without bruits. BACK: Exam normal. LUNGS: Clear. HEART: Regular rate and rhythm. ABDOMEN: Benign without organomegaly or tenderness. EXTREMITIES: No edema. NEUROLOGIC: Exam normal. SKIN: Unremarkable. Data 08/22/22 03:10 08/22/22 03:10 A&P Assessment and plan (1) History of renal stent: (2) AAA (abdominal aortic aneurysm): Qualifiers: Presence of rupture: without rupture Qualified Code(s): I71.4 - Abdominal aortic aneurysm, without rupture (3) Hypertension: (4) Congestive heart failure: Qualifiers: Heart failure chronicity: acute on chronic Heart failure type: unspecified Qualified Code(s): I50.9 - Heart failure, unspecified (5) Acute exacerbation of chronic obstructive airways disease: (6) ESRD on dialysis: (7) Elevated troponin: (8) Hypercholesteremia: (9) Endoleak post (EVAR) endovascular aneurysm repair: (10) Obstructive sleep apnea: Plan I spoke to her about options today. When I suggested a chemical stress test she immediately said no, Dr. Culver tried 1 of those and all fell apart and he had to take me to the emergency room . She does not want stress test. I spoke to her about angiography. She is exceedingly frail. We discussed it for some time and she has decided against angiography. Therefore, we will try to treat her medically. Currently she is stable without any evidence of heart failure and without chest pain. Attestations Medical Necessity Statement*: Hospital admission for management of hy pertension, renal failure, chest pain and elevated troponin. and High Time for a total of 30 minutes, includes reviewing past or interval history, examining/interviewing patient, counseling patient/family/other support and documenting encounter Other Coding Information Prolonged care (total time indicated above or notated here) Diagnoses History of renal stent AAA (abdominal aortic aneurysm) I71.4 Presence of rupture: without rupture Hypertension I10 Congestive heart failure I50.9 Heart failure chronicity: acute on chronic Heart failure type: unspecified Acute exacerbation of chronic obstructive airways disease J44.1 ESRD on dialysis N18.6; Z99.2 Elevated troponin R77.8 Hypercholesteremia E78.00 Endoleak post (EVAR) endovascular aneurysm repair T82.330A Obstructive sleep apnea G47.33
[2022-08-22] MEDS: budesonide 0.5 mg/2 mL Neb INHALATION ×2 (07:59→19:24)
[2022-08-22] MEDS: ipratropium-albuterol 3 mL Neb INHALATION ×4 (07:59→19:24)
[2022-08-22] MEDS: levothyroxine 50 mcg Tablet PO (08:33)
[2022-08-22] MEDS: atorvastatin 40 mg Tablet PO (08:33)
[2022-08-22] MEDS: pantoprazole DR 40 mg Tablet PO (08:33)
[2022-08-22] MEDS: BuSPIRONE 10 mg Tablet 5 MG PO ×3 (08:33→20:38)
--- NOTE | 2022-08-22 09:06 | PC.NURSE ---
Spoke with Dr. Chavez regarding BP meds and pt's concerns. Instructed to give all BP meds except clonidine at this time.
[2022-08-22] MEDS: metoprolol succinate ER (24 HR) 50 mg Tablet PO ×2 (09:23→20:38)
[2022-08-22] MEDS: isosorbide mononitrate ER 60 mg Tablet PO ×2 (09:23→17:30)
[2022-08-22] MEDS: amlodipine 10 mg Tablet PO (09:23)
[2022-08-22] MEDS: aspirin 81 mg EC Tablet PO (09:27)
[2022-08-22] MEDS: citalopram 20 mg Tablet 40 MG PO (09:27)
[2022-08-22 11:50] LABS: Partial Thromboplastin Time 77.5 SECONDS (23.9-36.7)
--- NOTE | 2022-08-22 12:29 | PC.NURSE ---
Heparin decreased to 9ml/hr.
--- NOTE | 2022-08-22 13:00 | PM.PN ---
Subjective Subjective: No acute events overnight. Patient underwent dialysis yesterday. During dialysis her blood pressures dropped and patient was feeling dizzy. Today morning examination patient is again hypertensive. She is on 2 L saturating more than 95%. States breathing is little better but still little short of breath but better than how she was before dialysis yesterday. Vitals/I&O/Wt Last Vital Signs Temp 97.7 F 08/21/22 12:50 Pulse 77 08/22/22 11:24 Resp 16 08/22/22 11:24 BP 161/88 08/22/22 09:23 Pulse Ox 97 08/22/22 11:24 O2 Del Method 08/22/22 11:24 O2 Flow Rate 2 08/22/22 11:24 08/21/22 08/22/22 08/22/22 22:59 06:59 14:59 Intake Total 682.017 / 1173.964 331.4 / 1505.364 240 / 240 Balance 682.017 / 1173.964 331.4 / 1505.364 240 / 240 Weight last 48 hrs Weight 40.007 kg Weight 36.741 kg Physical Exam Narrative: General: No acute distress, AO x3, NC oxygen supplementation HEENT: PERRLA, pupils bilaterally equal and reactive Chest: Bronchial breath sounds b/l, coarse crackles with occasional rhonchi all over the lung gilliam, fine crackles at bases CVS: S1-S2 regular, no murmurs, no tachycardia, no gallops, no rubs Abdomen: Soft, nontender, no organomegaly, bowel sounds present, morbidly obese Neuro: No focal deficits, no facial deformity, AO x3, power 5/5 in all limbs Data 08/22/22 03:10 08/22/22 03:10 A&P Assessment and plan (1) Shortness of breath: Most likely in setting of congestive heart failure because of uncontrolled hypertension in setting of diastolic congestive heart failure and COPD. Pneumonia less likely but patient gives history of multiple sick people or at home. COVID-19 negative, influenza negative. Check sputum culture, blood culture, MRSA swab, urine Legionella and bacterial antigen, D-dimer. History of Streptococcus pneumonia in past. Empirically will start on ceftriaxone for now. CT chest negative for any consolidation. (2) NSTEMI (non-ST elevated myocardial infarction): Baseline troponin more than 400 with positive delta in 2 hours. proBNP elevated. Given CKD and congestive heart failure could be type II [place] but baseline is higher than usual. Patient does give history of chest pressure occasionally. Appreciate cardiology recommendations. Patient cannot get Lexiscan as she is allergic to Lexiscan last time she had difficulty in breathing and need to be admitted to the ER. Patient is too frail for cardiac catheterization. Plan is to treat medically for now. Continue with heparin drip. Continue with home dose of aspirin, statin, Imdur, metoprolol. Echocardiogram results appreciated. (3) Congestive heart failure: Acute on chronic diastolic heart failure. Echocardiogram shows no regional wall motion abnormality, normal EF, moderate LV hypertrophy with diastolic dysfunction and a small persistent pericardial effusion. Doing better today. Better blood pressure control. Strict input output charting. Daily weights. IV Lasix 60 mg daily. Qualifiers: Heart failure chronicity: acute on chronic Heart failure type: unspecified Qualified Code(s): I50.9 - Heart failure, unspecified (4) Hypertension: Goal blood pressure less than 140/90 mm Hg. Blood pressure is elevated. Blood pressures dropping during dialysis. Continue with home dose of metoprolol, clonidine. Increased Imdur to 60 mg twice daily. Switch 10 mg of amlodipine to 100 mg of losartan daily. If blood pressure is elevated can add amlodipine again. Discussed in detail with the patient. Advised to hold off on clonidine on the day of dialysis. Patient verbalized understanding and is agreeable. (5) COPD (chronic obstructive pulmonary disease): DuoNebs every 6 hour, budesonide twice daily. No active exacerbation so we will hold off on steroids. (6) ESRD on dialysis: Nephrology consulted. Continue dialysis sessions. 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 Continue medications as above. (8) History of renal stent: (9) History of stent insertion of renal artery: (10) AAA (abdominal aortic aneurysm): Qualifiers: Presence of rupture: without rupture Qualified Code(s): I71.4 - Abdominal aortic aneurysm, without rupture (11) Malnourished: (12) Protein-energy malnutrition: Plan Continue other chronic medications including BuSpar, citalopram, Flonase, Requip, sevelamer. Analgesia: Tylenol as needed Glycemic control: Not needed. A1c 3.5. Nutrition: Renal dialysis diet CODE STATUS: Full code PUD prophylaxis: Protonix DVT prophylaxis: Heparin drip will suffice as DVT prophylaxis. Discharge planning: Home with caregiver once medically stable. Admit to CSU. This documentation was created by [employer] public policy coordinator software. Every effort was made to ensure accuracy of public policy coordinator. Any obvious errors or omissions should be clarified with the author of the document. Attestations Medical Necessity Statement*: Requires further hospitalization for management of shortness of breath in setting of COPD and congestive heart failure exacerbation, non-ST elevation [place], uncontrolled hypertension in a patient with end-stage renal disease on hemodialysis. and High Time for a total of 50 minutes, includes reviewing past or interval history, examining/interviewing patient, placing orders, counseling patient/family/other support, updating patient/family/other support, discussing plan of care with staff, communicating with other healthcare providers, documenting encounter and coordinating care Diagnoses Shortness of breath R06.02 NSTEMI (non-ST elevated myocardial infarction) I21.4 Congestive heart failure I50.9 Heart failure chronicity: acute on chronic Heart failure type: unspecified Hypertension I10 COPD (chronic obstructive pulmonary disease) J44.9 ESRD on dialysis N18.6; Z99.2 Endoleak post (EVAR) endovascular aneurysm repair T82.330A History of renal stent History of stent insertion of renal artery Z98.890 AAA (abdominal aortic aneurysm) I71.4 Presence of rupture: without rupture Malnourished E46 Protein-energy malnutrition E46
[2022-08-22] MEDS: losartan 50 mg Tablet 100 MG PO (13:46)
[2022-08-22] MEDS: FUROsemide 10 mg/mL SDV 10mL 60 MG IVP (13:46)
[2022-08-22 14:47] LABS: Vitamin B12 615 pg/mL (232-1245)
[2022-08-22] MEDS: cefTRIAXone 1,000 MG in sodium chloride 0.9% (plus) 50 ML 100 MG IV (15:05)
[2022-08-22 16:22] LABS: Folate Level > 20.0 ng/mL (4.8-37.3)
[2022-08-22] MEDS: cloNIDine 0.1 mg Tablet PO (17:30)
--- NOTE | 2022-08-22 17:44 | PM.PN ---
Subjective Subjective: no new complaints Medications: Reviewed: Yes Vitals/I&O/Wt Last Vital Signs Temp 97.7 F 08/21/22 12:50 Pulse 80 08/22/22 15:47 Resp 16 08/22/22 15:37 BP 144/76 08/22/22 17:30 Pulse Ox 94 08/22/22 15:37 O2 Del Method 08/22/22 15:37 O2 Flow Rate 2 08/22/22 15:37 08/22/22 08/22/22 08/22/22 06:59 14:59 22:59 Intake Total 331.4 / 1505.364 500 / 500 50 / 550 Balance 331.4 / 1505.364 500 / 500 50 / 550 Weight last 48 hrs Weight 40.007 kg Weight 36.741 kg Physical Exam Narrative: Crackles per repotr S1-S2 regular rate and rhythm per report Has edema Data 08/22/22 03:10 08/22/22 03:10 A&P Assessment and plan (1) ESRD on dialysis: Plan End-stage renal disease: On dialysis per Tuesday schedule as outpatient, patient presents with volume overload. s/p dialysis yesterday and plan for next hD in AM Hypertension: Blood pressure controlled, restart home medications Acute on chronic respiratory failure: Multifactorial secondary to COPD volume overload, neurology as above, 2 gram sodium restriction and 1500 mill fluid restriction NSTEMI : mx per cardiology Patient evaluated using audiovisual cart. Time spent 35 minutes Attestations Medical Necessity Statement*: Requires further hospitalization for management of shortness of breath in setting of COPD and congestive heart failure exacerbation, non-ST elevation [place], uncontrolled hypertension in a patient with end-stage renal disease on hemodialysis. Coding Level of Care Code Acute Code for Chg Fwd Diagnoses ESRD on dialysis N18.6; Z99.2
[2022-08-22 18:11] LABS: Partial Thromboplastin Time 45.3 SECONDS (23.9-36.7)
[2022-08-22] MEDS: ropinirole 1 mg Tablet PO (20:37)
[2022-08-22] MEDS: heparin 5,000 unit/mL INJ 1 mL IV (23:47)
[2022-08-23] VITALS (19 sets, daily range): BP systolic 125–172; BP diastolic 75–93; PULSE 65–82; RESP 15–25; TEMP 36.6–37.1; O2SAT 93–98
--- NOTE | 2022-08-23 06:11 | PC.HD ---
Patient became hypotensive into the 60s during treatment. Per hypotension protocol, NSS boluses of 200 mL, 200 mL, and 100 mL were given, which only improved blood pressure transiently. Patient was symptomatic with her hypotension, feeling weak and dizzy, and eventually becoming nauseous. UF was turned off at this point. Due to patient's fluid overload status, this RN did not wish to continue administering fluid boluses. Overedge Sewer was contacted, who instructed this RN to administer albumin via HD circuit. Albumin was administered, patient's blood pressure recovered and this RN was able to begin pulling fluid off again. UF goal of 4000 mL was not met, but this RN was able to remove a net of 2330 mL. Patient stated she felt better after stabilization of her BP and conclusion of dialysis treatment. Overedge Sewer and primary RN updated.
[2022-08-23 06:23] LABS: Basophils % 0.3 %; Eosinophils # 0.2 10^3/uL (0.0-0.8); Eosinophils % 2.4 %; Hematocrit 33.6 % (37.0-47.0); Hemoglobin 10.1 g/dL (11.5-15.3); Lymphocytes % 43.8 %; Mean Corpuscular HGB Conc 30.1 g/dL (30.0-36.0); Mean Corpuscular Hemoglobin 30.2 pg (28.0-34.0); Mean Corpuscular Volume 100.6 fl (81-99); Mean Platelet Volume 9.9 fL (7.4-10.4); Monocytes # 0.3 10^3/uL (0.2-0.9); Neutrophils # 3.26 10^3/uL (1.8-7.7); Neutrophils % 48.2 %; Nucleated Red Blood Cells % 0 %; Platelet Count 120 10^3/cmm (130-400); Red Blood Count 3.34 10^6/uL (4.1-5.3); Red Cell Distribution Width 16.9 % (12.1-15.1); White Blood Count 6.8 10^3/uL (4.0-10.0)
[2022-08-23 06:42] LABS: Alanine Aminotransferase 11 U/L (0-33); Albumin Level 2.7 g/dL (3.5-5.2); Alkaline Phosphatase 51 U/L (35-105); Anion Gap 13.3 (5-19); Aspartate Amino Transferase 17 U/L (0-32); Blood Urea Nitrogen 33 mg/dL (8-23); Calcium 8.2 mg/dL (8.5-10.5); Carbon Dioxide 27 mmol/L (22-29); Chloride 100 mmol/L (98-107); Globulin 2.2 g/dL (1.3-4.6); Glomerular Filtration Rate 8.9 mL/min (90-130); Glucose 77 mg/dL (65-115); Osmolality Calculated 288 mOsm/kg (285-295); Potassium 4.3 mmol/L (3.5-5.1); Sodium 136 mmol/L (136-145); Total Bilirubin 0.2 mg/dL (0.15-1.2); Total Protein 4.9 g/dL (6.6-8.7)
[2022-08-23 06:43] LABS: Partial Thromboplastin Time 70.9 SECONDS (23.9-36.7)
[2022-08-23 06:57] LABS: Phosphorus 2.6 mg/dL (2.5-4.5)
[2022-08-23] MEDS: heparin drip 25,000 UNIT/500 ML PREMIX 11 UNIT IV (07:25)
[2022-08-23] MEDS: budesonide 0.5 mg/2 mL Neb INHALATION ×2 (07:46→21:13)
[2022-08-23] MEDS: ipratropium-albuterol 3 mL Neb INHALATION ×3 (07:46→21:13)
[2022-08-23] MEDS: levothyroxine 50 mcg Tablet PO (08:17)
--- NOTE | 2022-08-23 08:39 | P.PN_ITS ---
Subjective Subjective: Talia is in dialysis again today. She is not having any pain. She is still mildly short of breath. Vitals/I&O/Wt Last Vital Signs Temp 98.1 F 08/23/22 08:27 Pulse 72 08/23/22 08:27 Resp 16 08/23/22 08:27 BP 166/84 08/23/22 08:27 Pulse Ox 95 08/23/22 08:00 O2 Del Method 08/23/22 08:00 O2 Flow Rate 2 08/23/22 07:47 08/22/22 08/23/22 08/23/22 22:59 06:59 14:59 Intake Total 510 / 1010 193.167 / 1203.167 83.967 / 83.967 Balance 510 / 1010 193.167 / 1203.167 83.967 / 83.967 Weight last 48 hrs Weight 82 lb 14.301 oz Physical Exam Narrative: GENERAL: In general she is frail but awake alert and talkative. HEENT: Exam within normal limits. NECK: Supple without jugular vein distention. The carotid upstroke is normal without bruits. BACK: Exam normal. LUNGS: Clear. HEART: Regular rate and rhythm. ABDOMEN: Benign without organomegaly or tenderness. EXTREMITIES: No edema. NEUROLOGIC: Exam normal. SKIN: Thin skin with multiple hematomas throughout. Data 08/23/22 06:03 08/23/22 06:03 A&P Assessment and plan (1) Protein-energy malnutrition: (2) History of renal stent: (3) AAA (abdominal aortic aneurysm): Qualifiers: Presence of rupture: without rupture Qualified Code(s): I71.4 - Abdominal aortic aneurysm, without rupture (4) Hypertension: (5) Acute exacerbation of chronic obstructive airways disease: (6) ESRD on dialysis: (7) Elevated troponin: (8) Thrombocytopenia: (9) Abdominal pain: (10) Obstructive sleep apnea: (11) Endoleak post (EVAR) endovascular aneurysm repair: (12) Hypercholesteremia: Plan We discussed her therapy again today. She continues to desire medical treatment for any underlying coronary disease. She is quite frail and I think a fairly high risk for angiography. Attestations Medical Necessity Statement*: Hospitalization required for management of renal failure requiring dialysis and multiple complications. and Moderate Time for a total of 35 minutes, includes reviewing past or interval history, examining/interviewing patient, placing orders, counseling patient/family/other support, updating patient/family/other support, discussing plan of care with staff, communicating with other healthcare providers, document ing encounter and coordinating care Other Coding Information Prolonged care (total time indicated above or notated here) Diagnoses Protein-energy malnutrition E46 History of renal stent AAA (abdominal aortic aneurysm) I71.4 Presence of rupture: without rupture Hypertension I10 Acute exacerbation of chronic obstructive airways disease J44.1 ESRD on dialysis N18.6; Z99.2 Elevated troponin R77.8 Thrombocytopenia D69.6 Abdominal pain R10.9 Obstructive sleep apnea G47.33 Endoleak post (EVAR) endovascular aneurysm repair T82.330A Hypercholesteremia E78.00
[2022-08-23] MEDS: heparin, porcine 1,000 unit/mL INJ 10 mL HE (09:08)
[2022-08-23] MEDS: albumin 12.5 GM/50 ML VIAL IV (10:10)
[2022-08-23 11:07] LABS: Hepatitis B Surface AB 75.8 (11.5-1000); Hepatitis B Surface Antigen Non-Reactive (Nonreactive); Hepatitis C Virus Antibody Non-Reactive (Nonreactive)
--- NOTE | 2022-08-23 11:49 | P.PN_ITS ---
Subjective Subjective: seen this am no acute events overnight pt still on heparin drip getting dialysed when seen this AM no report of chest pain or sob. plans to go home with son and daughter Vitals/I&O/Wt Last Vital Signs Temp 98.1 F 08/23/22 08:27 Pulse 72 08/23/22 08:27 Resp 16 08/23/22 08:27 BP 166/84 08/23/22 08:27 Pulse Ox 95 08/23/22 08:00 O2 Del Method 08/23/22 08:00 O2 Flow Rate 2 08/23/22 09:21 08/22/22 08/23/22 08/23/22 22:59 06:59 14:59 Intake Total 510 / 1010 193.167 / 1203.167 83.967 / 83.967 Balance 510 / 1010 193.167 / 1203.167 83.967 / 83.967 Weight last 48 hrs Weight 37.6 kg Physical Exam Narrative: General: No acute distress, AO x3, NC oxygen supplementation, very frail appearing female, appars older than stated age. Cachectic HEENT: EOMI Chest: Bronchial breath sounds b/l, clear to ausculation anterior lung gilliam with mild ronchi at bases b/l CVS: S1-S2 regular, no murmurs, no tachycardia, no gallops, no rubs Abdomen: Soft, nontender, no organomegaly, bowel sounds present, morbidly obese Neuro: No focal deficits, no facial deformity, AO x3, power 5/5 in all limbs Skin: multiple areas of ecchymoses on arms. Data 08/23/22 06:03 08/23/22 06:03 A&P Assessment and plan (1) Shortness of breath: Most likely in setting of congestive heart failure because of uncontrolled hypertension in setting of diastolic congestive heart failure and COPD. Pneumonia less likely but patient gives history of multiple sick people or at home. COVID-19 negative, influenza negative. Sputum culture obtained and pending.. Blood culture not obtained, D-dimer 3.30 (lower than previous visits). History of Streptococcus pneumonia in past. Continue on ceftriaxone empirically and complete [address] chest negative for any consolidation. Pt improving and feeling better. (2) NSTEMI (non-ST elevated myocardial infarction): Baseline troponin more than 400 with positive delta in 2 hours. proBNP elevated. Given CKD and congestive heart failure could be type II [place] but baseline is high er than usual. Patient does give history of chest pressure occasionally. Appreciate cardiology recommendations. Patient cannot get Lexiscan as she is allergic to Lexiscan last time she had difficulty in breathing and need to be admitted to the ER. Patient is too frail for cardiac catheterization. Plan is to treat medically for now. Stop heparin drip today. Discussed with cardiology. Continue with home dose of aspirin, statin, Imdur, metoprolol. Echocardiogram results appreciated. (3) Congestive heart failure: Acute on chronic diastolic heart failure. Echocardiogram shows no regional wall motion abnormality, normal EF, moderate LV hypertrophy with diastolic dysfunction and a small persistent pericardial effusion. Doing better today. Better blood pressure control. Strict input output charting. Daily weights. IV Lasix 60 mg daily. Continue dialysis to help with fluid removal. Qualifiers: Heart failure chronicity: acute on chronic Heart failure type: unspecified Qualified Code(s): I50.9 - Heart failure, unspecified (4) Hypertension: Goal blood pressure less than 140/90 mm Hg. Blood pressure is elevated. Blood pressures dropping during dialysis. Continue with home dose of metoprolol, clonidine. Increased Imdur to 60 mg twice daily. Continue losartan 100 daily. If blood pressure is elevated can add amlodipine again. BP 160 systolic range. Discussed in detail with the patient. Advised to hold off on clonidine on the day of dialysis. Patient verbalized understanding and is agreeable. (5) COPD (chronic obstructive pulmonary disease): DuoNebs every 6 hour, budesonide twice daily. No active exacerbation so we will hold off on steroids. (6) ESRD on dialysis: Nephrology consulted. Continue dialysis sessions. 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 Continue medications as above. (8) History of renal stent: (9) History of stent insertion of renal artery: (10) AAA (abdominal aortic aneurysm): Qualifiers: Presence of rupture: without rupture Qualified Code(s): I71.4 - Abdominal aortic aneurysm, without rupture (11) Malnourished: (12) Protein-energy malnutrition: Plan Continue other chronic medications including BuSpar, citalopram, Flonase, Requip, sevelamer. Analgesia: Tylenol as needed Glycemic control: Not needed. A1c 3.5. Nutrition: Renal dialysis diet CODE STATUS: Full code PUD prophylaxis: Protonix DVT prophylaxis: Heparin subc for ppx. Discharge planning: Home with caregiver once medically stable. Plan for dc possibly in AM. Admit to CSU. This documentation was created by [employer] rural service engineer software. Every effort was made to ensure accuracy of rural service engineer. Any obvious errors or omissions should be clarified with the author of the document. Attestations Medical Necessity Statement*: Requires further hospitalization for management of shortness of breath in setting of COPD and congestive heart failure exacerbation, non-ST elevation [place], uncontrolled hypertension in a patient with end-stage renal disease on hemodialysis. and Moderate Time for a total of 35 minutes, includes reviewing past or interval history, examining/interviewing patient, placing orders, counseling patient/family/other support, updating patient/family/other support, discussing plan of care with staff, communicating with other healthcare providers, documenting encounter and coordinating care Other Coding Information Focused coding review requested Diagnoses Shortness of breath R06.02 NSTEMI (non-ST elevated myocardial infarction) I21.4 Congestive heart failure I50.9 Heart failure chronicity: acute on chronic Heart failure type: unspecified Hypertension I10 COPD (chronic obstructive pulmonary disease) J44.9 ESRD on dialysis N18.6; Z99.2 Endoleak post (EVAR) endovascular aneurysm repair T82.330A History of renal stent History of stent insertion of renal artery Z98.890 AAA (abdominal aortic aneurysm) I71.4 Presence of rupture: without rupture Malnourished E46 Protein-energy malnutrition E46 Time Spent (min) 35
[2022-08-23] MEDS: pantoprazole DR 40 mg Tablet PO (12:07)
[2022-08-23] MEDS: azithromycin 250 mg Tablet PO (12:07)
[2022-08-23] MEDS: BuSPIRONE 10 mg Tablet 5 MG PO ×3 (12:07→20:50)
[2022-08-23] MEDS: metoprolol succinate ER (24 HR) 50 mg Tablet PO ×2 (12:08→20:50)
[2022-08-23] MEDS: atorvastatin 40 mg Tablet PO (12:08)
[2022-08-23] MEDS: isosorbide mononitrate ER 60 mg Tablet PO ×2 (12:08→18:40)
[2022-08-23] MEDS: losartan 50 mg Tablet 100 MG PO (12:08)
[2022-08-23] MEDS: aspirin 81 mg EC Tablet PO (12:09)
[2022-08-23] MEDS: cloNIDine 0.1 mg Tablet PO ×2 (12:09→18:41)
[2022-08-23] MEDS: citalopram 20 mg Tablet 40 MG PO (12:15)
[2022-08-23 12:24] LABS: Partial Thromboplastin Time 69.8 SECONDS (23.9-36.7)
[2022-08-23] MEDS: cefTRIAXone 1,000 MG in sodium chloride 0.9% (plus) 50 ML 100 MG IV (15:18)
--- NOTE | 2022-08-23 16:26 | PM.PN ---
Subjective Subjective: getting HD Medications: Reviewed: Yes Vitals/I&O/Wt Last Vital Signs Temp 98.2 F 08/23/22 12:03 Pulse 77 08/23/22 15:44 Resp 18 08/23/22 15:35 BP 172/93 08/23/22 12:15 Pulse Ox 96 08/23/22 15:35 O2 Del Method 08/23/22 15:35 O2 Flow Rate 2 08/23/22 15:35 08/23/22 08/23/22 08/23/22 06:59 14:59 22:59 Intake Total 193.167 / 1203.167 873.967 / 873.967 50 / 923.967 Output Total 2800 / 2800 Balance 193.167 / 1203.167 -1926.033 / -1926.033 50 / -1876.033 Weight last 48 hrs Weight 38.4 kg Weight 37.6 kg Physical Exam Narrative: Crackles per repotr S1-S2 regular rate and rhythm per report Has edema Data 08/23/22 06:03 08/23/22 06:03 A&P Assessment and plan (1) ESRD on dialysis: Plan End-stage renal disease: On dialysis per Tuesday schedule as outpatient, patient presents with volume overload. HD today Hypertension: Blood pressure controlled, restart home medications Acute on chronic respiratory failure: Multifactorial secondary to COPD volume overload, neurology as above, 2 gram sodium restriction and 1500 mill fluid restriction NSTEMI : mx per cardiology Patient evaluated using audiovisual cart. Time spent 35 minutes Attestations Medical Necessity Statement*: Requires further hospitalization for management of shortness of breath in setting of COPD and congestive heart failure exacerbation, non-ST elevation [place], uncontrolled hypertension in a patient with end-stage renal disease on hemodialysis. Coding Level of Care Code Acute Code for Chg Fwd Diagnoses ESRD on dialysis N18.6; Z99.2
[2022-08-23] MEDS: ropinirole 1 mg Tablet PO (20:50)
--- NOTE | 2022-08-23 22:49 | PC.NURSE ---
Patient had dried gauze on left forearm, stated her dogs caused a skin tear, and her daughter had placed BRANDO and gauze over wound and allowed it to dry. Patient reported it had been there several days . Attempted to soak gauze with sterile water in order to remove from wound, and was unable as gauze was adhered to tissue. Placed sterile water soaked gauze, ABD and wrapped with kerlex to attempt to soften gauze.
[2022-08-24] VITALS (19 sets, daily range): BP systolic 117–224; BP diastolic 71–111; PULSE 75–103; RESP 16–21; TEMP 36.6–37.1; O2SAT 92–100
--- NOTE | 2022-08-24 02:28 | PC.NURSE ---
Wet dressing changed to right forearm, hardened gauze remains adhered to wound, unable to detach. Saturated 2x2's with sterile water and covered with transparent dressing in attempt to soften gauze and detach from wound.
[2022-08-24] MEDS: ondansetron 2 mg/ML SDV 2 mL 4 MG IVP (02:43)
[2022-08-24 03:14] LABS: Basophils % 0.2 %; Hematocrit 32.3 % (37.0-47.0); Hemoglobin 9.6 g/dL (11.5-15.3); Lymphocytes # 1.1 10^3/uL (0.8-4.8); Lymphocytes % 17.3 %; Mean Corpuscular HGB Conc 29.7 g/dL (30.0-36.0); Mean Corpuscular Hemoglobin 30.4 pg (28.0-34.0); Mean Corpuscular Volume 102.2 fl (81-99); Mean Platelet Volume 9.5 fL (7.4-10.4); Monocytes # 0.2 10^3/uL (0.2-0.9); Monocytes % 3.8 %; Neutrophils % 78.4 %; Nucleated Red Blood Cells % 0 %; Platelet Count 99 10^3/cmm (130-400); Red Blood Count 3.16 10^6/uL (4.1-5.3); White Blood Count 6.1 10^3/uL (4.0-10.0)
[2022-08-24 03:31] LABS: Anion Gap 14.6 (5-19); Blood Urea Nitrogen 19 mg/dL (8-23); Calcium 8.3 mg/dL (8.5-10.5); Carbon Dioxide 27 mmol/L (22-29); Chloride 100 mmol/L (98-107); Glomerular Filtration Rate 11.9 mL/min (90-130); Glucose 85 mg/dL (65-115); Osmolality Calculated 288 mOsm/kg (285-295); Potassium 3.6 mmol/L (3.5-5.1); Sodium 138 mmol/L (136-145)
--- NOTE | 2022-08-24 06:58 | PC.NURSE ---
Msg sent to Dr. Landeros regarding patient c/o increasing vomiting and that zofran is not available yet. No response as of yet and patient is now vomiting.
--- NOTE | 2022-08-24 08:29 | P.PN_ITS ---
Subjective Subjective: Talia continues to feel poorly. She became nauseated about 245 this morning. She thinks it is the lettuce she ate last evening. It does not seem that things are quite moving through for her. Zofran has not helped. There is a request in for some Reglan. Otherwise she is about the same. No ch est pain. Vitals/I&O/Wt Last Vital Signs Temp 97.9 F 08/24/22 03:19 Pulse 76 08/24/22 05:37 Resp 18 08/24/22 03:19 BP 140/80 08/24/22 03:19 Pulse Ox 100 08/24/22 03:19 O2 Del Method 08/23/22 21:14 O2 Flow Rate 2 08/23/22 21:14 08/23/22 08/24/22 08/24/22 22:59 06:59 14:59 Intake Total 526 / 1399.967 0 / 1399.967 Output Total 0 / 2800 Balance 526 / -1400.033 0 / -1400.033 Weight last 48 hrs Weight 84 lb 10.52 oz Physical Exam Narrative: GENERAL: In general she is uncomfortable and nauseous. HEENT: Exam within normal limits. NECK: Supple without jugular vein distention. The carotid upstroke is normal without bruits. BACK: Exam normal. LUNGS: Clear. HEART: Regular rate and rhythm. ABDOMEN: Benign without organomegaly or tenderness. EXTREMITIES: No edema. NEUROLOGIC: Exam normal. SKIN: Unremarkable. Data 08/24/22 03:04 08/24/22 03:04 A&P Assessment and plan (1) Protein-energy malnutrition: (2) History of renal stent: (3) AAA (abdominal aortic aneurysm): Qualifiers: Presence of rupture: without rupture Qualified Code(s): I71.4 - Abdominal aortic aneurysm, without rupture (4) Hypertension: (5) NSTEMI (non-ST elevated myocardial infarction): (6) Congestive heart failure: Qualifiers: Heart failure chronicity: acute on chronic Heart failure type: unspecified Qualified Code(s): I50.9 - Heart failure, unspecified (7) ESRD on dialysis: (8) Elevated troponin: (9) Thrombocytopenia: (10) Metabolic acidosis: (11) Obstructive sleep apnea: (12) Peripheral vascular disease: (13) Atypical chest pain: (14) Hypercholesteremia: Plan Treat the nausea. Otherwise continued medical treatment for her underlying organic heart disease. Dialysis as necessary. Attestations Medical Necessity Statement*: Hospitalization for management of multiple medical problems as described. and Moderate Time for a total of 20 minutes, includes reviewing past or interval history, examining/interviewing patient, placing orders, counseling patient/family/other support, discussing plan of care with staff and documenting encounter Diagnoses Protein-energy malnutrition E46 History of renal stent AAA (abdominal aortic aneurysm) I71.4 Presence of rupture: without rupture Hypertension I10 NSTEMI (non-ST elevated myocardial infarction) I21.4 Congestive heart failure I50.9 Heart failure chronicity: acute on chronic Heart failure type: unspecified ESRD on dialysis N18.6; Z99.2 Elevated troponin R77.8 Thrombocytopenia D69.6 Metabolic acidosis E87.20 Obstructive sleep apnea G47.33 Peripheral vascular disease I73.9 Atypical chest pain R07.89 Hypercholesteremia E78.00
--- NOTE | 2022-08-24 08:45 | US_ITS ---
WS: [id number] Complete ABDOMINAL ULTRASOUND HISTORY: evaluation gallbladder COMPARISON: Prior CT 07/09/2022 and renal ultrasound 05/10/2022 Liver: 16.9 cm in length. Liver is top normal size. Mild coarse echotexture. No bile duct dilatation or mass. Portal Vein: Normal hepatopetal flow with monophasic waveform. Gallbladder: Normally distended gallbladder. Elongated soft tissue mass within the gallbladder lumen extends along the dependent wall. Soft tissue mass measures 2.5 x 1.7 x 0.8 cm. There is no increased vascularity. There is no shadowing. Mass is inseparable from the posterior RIGHT gallbladder wall. N o adjacent inflammation. Pancreas: Normal size and echogenicity. CBD: 0.3 cm. Right kidney: 5.9 cm x 2.5 cm x 2.4 cm. Moderate atrophy. No hydronephrosis or solid mass. Left kidney: Marked atrophy of the LEFT kidney. Atrophy has been previously described. No kidney iden tified with certainty. Spleen: Normal size and echogenicity. Abdominal aorta and IVC are within normal limits. No ascites. Very small RIGHT pleural effusion. US/US abdomen complete* [id number] IMPRESSION: 1. Abnormal gallbladder. Nonshadowing soft tissue mass inseparable from a smal l portion of the gallbladder wall. Mass measures 2.5 x 1.7 x 0.8 cm. Differenti al includes polyp, tumefactive sludge and neoplasm. Recommend surgical evaluati on and possible cholecystectomy. 2. Moderate atrophy RIGHT kidney and severe atrophy LEFT kidney. 3. RIGHT pleural effusion.
[2022-08-24] MEDS: metoclopramide 5 mg/mL SDV 2 mL IVP (08:54)
--- NOTE | 2022-08-24 08:59 | PC.SOCIAL ---
Imm update Imm updated at bedside. Copy of page 2 provided. Patient verbalized understanding. Copy in chart initialed, dated and timed.
--- NOTE | 2022-08-24 10:02 | PC.CHAP ---
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 range operator visit [] Patient/Family/Request visit [] Outpatient visit [] Follow-up visit [] Physician referral [] Code/Alert [x] Routine visit [] Staff referral [] Actively dying [] Patient sleeping [] Family support [] [] Out of room [] Palliative care [] [] Receiving care in room [] Pre-surgical visit [] Trauma [] Long length of stay [] ICU visit [] Other: Relational/Emotional Strength [] Patient feels connected with others/family/visitors/staff [x] Distress [] Loneliness/isolation [] Abandonment Spirituality of Patient [] Person of Yudy [] Attends Synagogue of their Yudy [] Believes in Prayer [] Reads Bible or Adventism materials [] There are Spiritual issues to be addressed [employer] Interventions [x] Prayer [] Active listening [] Non-anxious presence [] Spiritual/emotional support [] Crisis/trauma care [] Spiritual counseling [] Bereavement support [] Provided bereavement packet [] Provided Bible/devotional materials [] Provided toy/stuffed animal, coloring book to patient or family member [] Provided Communion [] Anointing/[place] [] Salvation [x] Completed spiritual assessment [] Other: Impact on Illness or Injury [] Angry [] Fearful [] Anxious [] Often cries [] Exhaustion [] Unable to work [] Unable to attend amish [] Unable to walk/stand [] Unable to read [] Unable to drive [] Unable to eat/drink [] Unable to sleep [] Unable to be with family [] Patient intubated [] Other: Summary Time spent with patient 5 min
--- NOTE | 2022-08-24 11:03 | PC.HD ---
After approximately 40 minutes on dialysis, patient suddenly stated that she didn't feel well and requested early termination of treatment. Upon further questioning, patient stated she was short of breath. O2 sats on 2L NC dropped to 82% and HR climbed to >100. NC was increased to 4L; primary RN Mendez was notified, and patient was taken off dialysis after approximately 45 minutes' treatment. Electronic AMA signed.
[2022-08-24] MEDS: cloNIDine 0.1 mg Tablet PO ×2 (11:04→17:48)
[2022-08-24] MEDS: isosorbide mononitrate ER 60 mg Tablet PO ×2 (11:04→17:49)
[2022-08-24] MEDS: metoprolol succinate ER (24 HR) 50 mg Tablet PO ×2 (11:05→21:00)
[2022-08-24] MEDS: losartan 50 mg Tablet 100 MG PO (11:06)
[2022-08-24] MEDS: pantoprazole DR 40 mg Tablet PO (11:06)
--- NOTE | 2022-08-24 11:10 | XRR_ITS ---
PROCEDURE INFORMATION: Exam: XR Chest Exam date and time: 08/24/2022 12:44 PM Age: 67 years old Clinical indication: Shortness of breath; Additional info: SOB TECHNIQUE: Imaging protocol: Radiologic exam of the chest. Views: 1 view. COMPARISON: CT chest con [id number] 08/21/2022 7:14 PM FINDINGS: Tubes, catheters and devices: Right IJ approach tunneled dialysis catheter is in satisfactory position, with distal tip in the RA. Lungs: There is redistribution and indistinctness of the pulmonary vasculature, in association with haziness of the lungs and small left pleural effusion, which in the setting of cardiomegaly is consistent with pulmonary edema. Pneumonia should be excluded clinically. No pneumothorax. Pleural spaces: See Lungs finding. Heart/Mediastinum: Stable cardiomediastinal silhouette. Vasculature: Aortic stent noted. Bones/joints: Old healed fracture deformities noted in the left ribcage. XR/XR chest 1V portable [id number] IMPRESSION: Imaging findings of pulmonary edema with small left pleural effusion. Pneumonia should be excluded clinically.
--- NOTE | 2022-08-24 11:11 | ECG_ITS ---
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 Measurements Intervals [place] Rate: 95 P: 70 KS: 121 QRS: 62 QRSD: 70 T: 29 QT: 295 QTc: 372 Interpretive Statements SINUS RHYTHM NONSPECIFIC T-WAVE ABNORMALITY Compared to ECG 08/21/2022 17:56:27 No significant changes Electronically Signed On 08-24-2022 17:36:57 JEWELRY SALES COORDINATOR by Victor Hugo Gonzalez M.D. [id number]
--- NOTE | 2022-08-24 11:17 | PM.PN ---
Subjective Subjective: Seen today. Patient having dry heaving and nausea and vomiting. Seen holding up trending her hand. Says having abdominal pain right upper quadrant. There is also a gauze on her right forearm that is wedged into the skin. Vitals/I&O/Wt Last Vital Signs Temp 98.0 F 08/25/22 07:22 Pulse 72 08/25/22 13:19 Resp 16 08/25/22 13:19 BP 155/79 08/25/22 13:19 Pulse Ox 95 08/25/22 13:19 O2 Del Method 08/25/22 11:21 O2 Flow Rate 2 08/25/22 11:21 FiO2 28 08/24/22 16:48 Physical Exam Narrative: General: No acute distress, AO x3, NC oxygen supplementation, very frail appearing female, appars older than stated age. Cachectic. Appears, nauseated HEENT: EOMI Chest: Bronchial breath sounds b/l, clear to ausculation anterior lung gilliam with mild ronchi at bases b/l CVS: S1-S2 regular, no murmurs, no tachycardia, no gallops, no rubs Abdomen: Soft, nontender, no organomegaly, bowel sounds present, morbidly obese Neuro: No focal deficits, no facial deformity, AO x3, power 5/5 in all limbs Skin: multiple areas of ecchymoses on arms. Data 08/24/22 03:04 08/24/22 03:04 A&P Assessment and plan (1) Shortness of breath: Most likely in setting of congestive heart failure because of uncontrolled hypertension in setting of diastolic congestive heart failure and COPD. Pneumonia less likely but patient gives history of multiple sick people or at home. COVID-19 negative, influenza negative. Sputum culture obtained and pending.. Blood culture not obtained, D-dimer 3.30 (lower than previous visits). History of Streptococcus pneumonia in past. Continue on ceftriaxone empirically and complete [address] chest negative for any consolidation. Pt improving and feeling better. (2) NSTEMI (non-ST elevated myocardial infarction): Baseline troponin more than 400 with positive delta in 2 hours. proBNP elevated. Given CKD and congestive heart failure could be type II [place] but baseline is higher than usual. Patient does give history of chest pressure occasionally. Appreciate cardiology recommendations. Patient cannot get Lexiscan as she is allergic to Lexiscan last time she had difficulty in breathing and need to be admitted to the ER. Patient is too frail for cardiac catheterization. Plan is to treat medically for now. Stop heparin drip today. Discussed with cardiology. Continue with home dose of aspirin, statin, Imdur, metoprolol. Echocardiogram results appreciated. (3) Congestive heart failure: Acute on chronic diastolic heart failure. Echocardiogram shows no regional wall motion abnormality, normal EF, moderate LV hypertrophy with diastolic dysfunction and a small persistent pericardial effusion. Doing better today. Better blood pressure control. Strict input output charting. Daily weights. IV Lasix 60 mg daily. Continue dialysis to help with fluid removal. Qualifiers: Heart failure chronicity: acute on chronic Heart failure type: unspecified Qualified Code(s): I50.9 - Heart failure, unspecified (4) Hypertension: Goal blood pressure less than 140/90 mm Hg. Blood pressure is elevated. Blood pressures dropping during dialysis. Continue with home dose of metoprolol, clonidine. Increased Imdur to 60 mg twice daily. Continue losartan 100 daily. If blood pressure is elevated can add amlodipine again. BP 160 systolic range. Discussed in detail with the patient. Advised to hold off on clonidine on the day of dialysis. Patient verbalized understanding and is agreeable. (5) COPD (chronic obstructive pulmonary disease): DuoNebs every 6 hour, budesonide twice daily. No active exacerbation so we will hold off on steroids. (6) ESRD on dialysis: Nephrology consulted. Continue dialysis sessions. 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 Continue medications as above. (8) History of renal stent: (9) History of stent insertion of renal artery: (10) AAA (abdominal aortic aneurysm): Qualifiers: Presence of rupture: without rupture Qualified Code(s): I71.4 - Abdominal aortic aneurysm, without rupture (11) Malnourished: (12) Protein-energy malnutrition: Plan Continue other chronic medications including BuSpar, citalopram, Flonase, Requip, sevelamer. Nausea vomiting, abdominal pain Ultrasound abdomen shows questionable mass at gallbladder. Cholecystectomy recommended. We will consult general surgery Discharge planning: Home with caregiver once medically stable. Admit to CSU. This documentation was created by [employer] legal document specialist software. Every effort was made to ensure accuracy of legal document specialist. Any obvious errors or omissions should be clarified with the author of the document. This is a late entry note it somehow got missed. Attestations Medical Necessity Statement*: consult gen surg Diagnoses Shortness of breath R06.02 NSTEMI (non-ST elevated myocardial infarction) I21.4 Congestive heart failure I50.9 Heart failure chronicity: acute on chronic Heart failure type: unspecified Hypertension I10 COPD (chronic obstructive pulmonary disease) J44.9 ESRD on dialysis N18.6; Z99.2 Endoleak post (EVAR) endovascular aneurysm repair T82.330A History of renal stent History of stent insertion of renal artery Z98.890 AAA (abdominal aortic aneurysm) I71.4 Presence of rupture: without rupture Malnourished E46 Protein-energy malnutrition E46
[2022-08-24] MEDS: ipratropium-albuterol 3 mL Neb INHALATION ×3 (11:32→20:14)
--- NOTE | 2022-08-24 11:41 | PM.PN ---
Subjective Subjective: getting HD Medications: Reviewed: Yes Vitals/I&O/Wt Last Vital Signs Temp 98.6 F 08/24/22 10:46 Pulse 101 H 08/24/22 11:33 Resp 18 08/24/22 11:33 BP 195/93 08/24/22 11:06 Pulse Ox 96 08/24/22 11:33 O2 Del Method 08/24/22 11:33 O2 Flow Rate 4 08/24/22 11:33 08/23/22 08/24/22 08/24/22 22:59 06:59 14:59 Intake Total 526 / 1399.967 0 / 1399.967 420 / 420 Output Total 0 / 2800 619 / 619 Balance 526 / -1400.033 0 / -1400.033 -199 / -199 Weight last 48 hrs Weight 38.8 kg Weight 38.4 kg Physical Exam Narrative: Crackles per repotr S1-S2 regular rate and rhythm per report Has edema Data 08/24/22 03:04 08/24/22 03:04 Micro: Microbiology 08/22/22 17:50 Sputum Culture - Preliminary Sputum - Expectorated Sputum Gram Negative Rods A&P Assessment and plan (1) ESRD on dialysis: Plan End-stage renal disease: On dialysis per Tuesday schedule as outpatient, patient presents with volume overload. HD today Hypertension: stopped lasix , continue Losartan 100 mg and Metoprolol 50 mg BID at DC Acute on chronic respiratory failure: Multifactorial secondary to COPD volume overload, neurology as above, 2 gram sodium restriction and 1500 mill fluid restriction NSTEMI : mx per cardiology Patient evaluated using audiovisual cart. Time spent 35 minutes Attestations Medical Necessity Statement*: PLAN TO DC HOME TODAY Coding Level of Care Code Acute Code for Chg Fwd Diagnoses ESRD on dialysis N18.6; Z99.2
--- NOTE | 2022-08-24 12:32 | PC.NURSE ---
pt refused her hemodialysis she had started to dialize for about 30 mins treatment and she started to get increasing SOB,pale,hypertensive and reported does not feel good. dialysis nurse at bedside. vitals checked. spo2 is 88% on 5 L. systolic BP ranges from 170s to 200s. Hr-105. Dr notified x2 via telephone.
[2022-08-24 13:17] LABS: Troponin T (5th) Once 425 ng/L (0-10)
[2022-08-24] MEDS: acetaminophen 325 mg Tablet 650 MG PO (13:22)
[2022-08-24] MEDS: BuSPIRONE 10 mg Tablet 5 MG PO ×2 (16:12→20:59)
[2022-08-24] MEDS: cefTRIAXone 1,000 MG in sodium chloride 0.9% (plus) 50 ML 100 MG IV (16:12)
[2022-08-24] MEDS: polyethylene glycol 3350 Pkt 17 gm PO (17:49)
--- NOTE | 2022-08-24 19:40 | PC.NURSE ---
Shift note 7am- pt was vominting with undigiested emesis. Dr notified. verbal order to start pt on 5 mg ivp reglan, IVANIA abdomen for eval of gallbladder. Pt has been refusing to take her meal trays all day. pt had an old skin tear develop from home and was covered w/gauze at home more than 2 weeks ago. the gauze is dried out. Difficult to remove the old dressing. dr hedrick and dr galindo look at the skin tear. they agreed to keep soaking it w/NS sterile water until dressing fell off. Dr Hedrick removed it this afternoon. New Optifoam dressing applied on the skin tear. pt did not continue her full treatment of dialysis today. she refused it by the [address] notified.
--- NOTE | 2022-08-24 19:44 | PC.NURSE ---
Pt stated that she is hungry. pt had dinner tray which she refused to eat it. offered her nephro drinks, jello and pudding. pt refused all these. she said she will let family bring food to her tonight.
[2022-08-24] MEDS: budesonide 0.5 mg/2 mL Neb INHALATION (20:14)
--- NOTE | 2022-08-24 20:21 | PM.CONSULT ---
Providers/Reason For Consult Consulting Physician/Specialty*: Dr. Ward Petit, DO/General surgery Reason for Consult*: Gallbladder mass versus sludge versus polyp Attending Physician: Sandy Suarez MD Primary Care Provider: HERBERT Masters History of Present Illness History of Present Illness Hali James is a 67 year old female who is currently in the hospital with an NSTEMI and congestive heart failure. She also is a hemodialysis patient. She was having nausea and vomiting while in the hospital. She reports that this has been happening on and off for the past 3 months. She does report dull right upper quadrant abdominal pain that does not radiate. She is insistent that the nausea and vomiting was from eating a bad salad yesterday. She is no longer nauseous or vomiting. Ultrasound did not show any evidence of acute cholecystitis. She is refusing surgery. Cardiology deemed her too unstable for angiography. She also has a wound on her right forearm with some gauze that is tightly adhered to it. Review of Systems General: Reports: 10 or more systems reviewed and unremarkable except in HPI and below Medications/Allergies Home Medications Medication Instructions Recorded Confirmed Last Taken Type fluticasone propionate 50 2 spray intranasal DAILY PRN Nasal 02/21/20 08/21/22 08/20/22 History mcg/actuation nasal Congestion spray,suspension (Flonase Allergy Relief) albuterol sulfate 2.5 mg/3 mL 2.5 mg (3 mL) inhalation QID PRN 05/15/20 08/21/22 08/20/22 Rx (0.083 %) solution for nebulization Shortness Of Breath 30 days #75 mL epinephrine 0.3 mg/0.3 mL 0.3 mg IM Q10M PRN Allergic 10/16/20 08/21/22 Unknown History injection, auto-injector Reaction bumetanide 1 mg tablet 0.5 mg PO DAILY 06/13/21 08/21/22 08/20/22 History albuterol sulfate 90 mcg/actuation 2 puff inhalation 6XD PRN 04/05/22 08/21/22 08/20/22 Rx aerosol inhaler Shortness Of Breath #6.7 grams metoprolol succinate 50 mg 50 mg PO BID@0830,2100 30 days #60 04/05/22 08/21/22 08/20/22 Rx tablet,extended release 24 hr tabs montelukast 10 mg tablet 10 mg PO DAILY@0830 #30 tabs 04/05/22 08/21/22 08/20/22 Rx nitroglycerin 0.4 mg sublingual 0.4 mg sublingual Q5M PRN Chest 04/05/22 08/21/22 06/12/22 Rx tablet (Nitrostat) Pain 30 days #30 tabs omeprazole 20 mg capsule,delayed 20 mg PO DAILY@0830 30 days #30 04/05/22 08/21/22 08/20/22 Rx release caps clonidine HCl 0.1 mg tablet 0.1 mg PO BID@0830,2100 #180 tabs 05/03/22 08/21/22 08/20/22 Rx isosorbide mononitrate 60 mg 60 mg PO DAILY@0830 30 days #30 05/03/22 08/21/22 08/20/22 Rx tablet,extended release 24 hr tabs amlodipine 10 mg tablet 10 mg PO DAILY 05/10/22 08/21/22 08/20/22 History sevelamer carbonate 0.8 gram oral 0.4 g PO TID 06/12/22 08/21/22 08/20/22 History powder packet ondansetron 8 mg disintegrating 8 mg PO Q8H PRN nausea and 06/16/22 08/21/22 Unknown Rx tablet vomiting #90 tabs budesonide 0.5 mg/2 mL suspension 0.5 mg (2 mL) inhalation BID #120 06/21/22 08/21/22 08/20/22 Rx for nebulization (Pulmicort) mL formoterol fumarate 20 mcg/2 mL 2 ml inhalation Q12H #120 mL 06/21/22 08/21/22 08/20/22 Rx solution for nebulization (Perforomist) revefenacin 175 mcg/3 mL solution 175 mcg (3 mL) inhalation DAILY 06/21/22 08/21/22 Unknown Rx for nebulization #90 mL buspirone 5 mg tablet 5 mg PO TID #90 tabs 07/01/22 08/21/22 08/20/22 Rx citalopram 40 mg tablet 40 mg PO DAILY@0830 30 days #30 07/01/22 08/21/22 08/20/22 Rx tabs azithromycin 250 mg tablet 250 mg PO .COMPLEX COPD 90 days 07/06/22 08/21/22 08/20/22 Rx #45 tabs polyethylene glycol 3350 17 gram 8.5 g PO DAILY #100 ea 07/09/22 08/21/22 08/20/22 Rx oral powder packet (Miralax) atorvastatin 40 mg tablet 40 mg PO DAILY #30 tabs 07/16/22 08/21/22 08/20/22 Rx levothyroxine 50 mcg tablet 50 mcg PO DAILY #30 tabs 07/16/22 08/21/22 08/20/22 Rx doxycycline hyclate 100 mg tablet 100 mg PO BID #14 tabs 07/30/22 08/21/22 08/20/22 Rx aspirin 81 mg tablet,delayed 81 mg PO DAILY@0830 30 days #30 08/18/22 08/21/22 08/20/22 Rx release tabs hydroxyzine HCl 50 mg tablet 50 mg PO 0830,2100 PRN anxiety 08/21/22 08/21/22 08/20/22 History ropinirole 1 mg tablet 1 mg PO BEDTIME 08/21/22 08/21/22 08/20/22 History Allergies Allergy/AdvReac Type Severity Reaction Status Date / Time lisinopril Allergy Severe anaphylaxis Verified 08/20/22 21:42 Sulfa (Sulfonamide AdvReac Intermediate Itching, Verified 08/20/22 21:42 Antibiotics) burning Current Medications Generic Name Dose Route Start Last Admin Trade Name Freq PRN Reason Stop Dose Admin Acetaminophen 650 mg 08/21/22 07:09 08/24/22 13:22 Acetaminophen 325 Mg Tablet PO 650 mg Q6H PRN Administration Mild/Mod Pain Or Temp >/= 101 Albuterol/Ipratropium 3 ml 08/21/22 08:00 08/24/22 20:14 Ipratropium-Albuterol 3 Ml Neb INHALATION 3 ml QID.RESPIRATORY APOLONIA Administration Aspirin 81 mg 08/21/22 08:30 08/24/22 10:36 Aspirin 81 Mg Ec Tablet PO Not Given DAILY@0830 APOLONIA Atorvastatin Calcium 40 mg 08/21/22 09:00 08/24/22 10:39 Atorvastatin 40 Mg Tablet PO Not Given DAILY APOLONIA Azithromycin 250 mg 08/23/22 07:20 08/23/22 12:07 Azithromycin 250 Mg Tablet PO 250 mg MoWeFr APOLONIA Administration Protocol Budesonide 0.5 mg 08/21/22 08:00 08/24/22 20:14 Budesonide 0.5 Mg/2 Ml Neb INHALATION 0.5 mg BID.RESPIRATORY APOLONIA Administration Buspirone HCl 5 mg 08/21/22 09:00 08/24/22 16:12 Buspirone 10 Mg Tablet PO 5 mg TID APOLONIA Administration Citalopram Hydrobromide 40 mg 08/21/22 08:30 08/24/22 10:37 Citalopram 20 Mg Tablet PO Not Given DAILY@0830 APOLONIA Clonidine HCl 0.1 mg 08/21/22 20:00 08/24/22 17:48 Clonidine 0.1 Mg Tablet PO 0.1 mg BID APOLONIA Administration Ceftriaxone Sodium 1,000 mg/ 50 mls @ 100 mls/hr 08/21/22 15:00 08/24/22 17:17 Sodium Chloride IV Infused Q24H APOLONIA Infusion Protocol Isosorbide Mononitrate 60 mg 08/21/22 18:00 08/24/22 17:49 Isosorbide Mononitrate Er 60 Mg Tablet PO 60 mg BID APOLONIA Administration Levothyroxine Sodium 50 mcg 08/21/22 09:00 08/24/22 10:38 Levothyroxine 50 Mcg Tablet PO Not Given DAILY APOLONIA Losartan Potassium 100 mg 08/22/22 13:30 08/24/22 11:06 Losartan 50 Mg Tablet PO 100 mg DAILY APOLONIA Administration Metoclopramide HCl 5 mg 08/24/22 08:43 08/24/22 08:54 Metoclopramide 5 Mg/Ml Sdv 2 Ml IVP 5 mg Q6H PRN Administration NAUSEA AND VOMITING Metoprolol Succinate 50 mg 08/21/22 08:30 08/24/22 11:05 Metoprolol Succinate Er (24 Hr) 50 Mg Tablet PO 50 mg BID@0830,2100 APOLONIA Administration Non-Formulary Medication 0.4 gm 08/21/22 09:00 08/24/22 14:21 Sevelamer Carbonate PO Not Given TID APOLONIA Ondansetron HCl 4 mg 08/21/22 07:09 08/24/22 02:43 Ondansetron 2 Mg/Ml Sdv 2 Ml IVP 4 mg Q8H PRN Administration vomiting, or N/V if npo Pantoprazole Sodium 40 mg 08/21/22 09:00 08/24/22 11:[address] 40 Mg Tablet PO 40 mg DAILY APOLONIA Administration Polyethylene Glycol 17 gm 08/24/22 18:00 08/24/22 17:49 Polyethylene Glycol 3350 Pkt 17 Gm PO 17 gm BID APOLONIA Administration Ropinirole HCl 1 mg 08/21/22 21:00 08/23/22 20:50 Ropinirole 1 Mg Tablet PO 1 mg BEDTIME APOLONIA Administration PFSH Acute PFSH: Medical History AAA (abdominal aortic aneurysm) 4.1 x 4.4 x 5.7 cm 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 Anemia Atypical chest pain Brain aneurysm Chest pain Chest pain Chronic kidney disease CKD stage III, solitary kidney Chronic migraine without aura, intractable, with status migrainosus Congestive heart failure COPD (chronic obstructive pulmonary disease) COPD with acute exacerbation Depression Elevated troponin End-stage renal disease needing dialysis Endoleak post (EVAR) endovascular aneurysm repair GERD (gastroesophageal reflux disease) History of stent insertion of renal artery Hypercholesteremia Hypertension Hypertensive urgency Resolved Hyponatremia Hypothyroidism Inguinal swelling Major depressive disorder, recurrent severe without psychotic features Malnourished Normal colonoscopy NSTEMI (non-ST elevated myocardial infarction) Osteoporosis Peripheral vascular disease Protein-energy malnutrition Psychiatric care Restless leg Solitary kidney Surgical History H/O: hysterectomy History of renal stent Herculink stent History of repair of aneurysm of abdominal aorta using endovascular stent graft Hx of tonsillectomy S/P appendectomy Status post endovascular aneurysm repair (EVAR) Family History Mother CAD (coronary artery disease) Chronic kidney disease (CKD) Dementia Stroke Father CAD (coronary artery disease) Cancer Diabetes Brother CAD (coronary artery disease) Cancer Lung disease Grandfather Cancer Grandmother Diabetes Family/Other Lung disease Suicide Other Hypertension Denies family history of Clotting disorder Anesthesia complication Bleeding disorder Social History Smoking and tobacco status: former smoker Quit status (tobacco): has quit using tobacco Year quit tobacco: 2005 - PPD x 35 Years Former quit date comment: Started at age 18 Second hand smoke exposure: No Smoking risk assessment/counseling performed?: No Alcohol intake: never Desire information about alcohol rehabilitation?: No Counseling given: No Desire information about substance/drug rehabilitation?: No Counseling given: No Adopted: No Caregiver/support person: No Lives independently: Yes Household members: family and children Housing: House Marital status: / Marital status details: 2006 Number of children: 12 Number of grandchildren: 4 Highest education level completed: Master's Degree Education level details: Criminal Justice service: No Current occupational status: disabled Current occupational exposures/hazards: No Pets and animals: Yes Pets & animals: cat(s), dog(s) and farm animals Farm Animals: cattle History of recent travel: No Leisure activites: reading and other Leisure activities details: watch TV Sexually active: No Current gender identity: Female Yudy/Presybeterian: Jewish [employer] Special yudy needs: No Agree to transfusion: Yes Financial difficulty paying for basics: Somewhat Hard Female Reproductive History: Date of last menstrual period: 10/21/20 Para: 0 Spontaneous abortions: Yes Vitals/I&O/Wt Last Vital Signs Temp 97.9 F 08/24/22 19:12 Pulse 77 08/24/22 20:14 Resp 18 08/24/22 20:14 BP 141/78 08/24/22 19:12 Pulse Ox 97 08/24/22 20:14 O2 Del Method 08/24/22 20:14 O2 Flow Rate 2 08/24/22 20:14 FiO2 28 08/24/22 16:48 08/24/22 08/24/22 08/24/22 06:59 14:59 22:59 Intake Total 0 / 1399.967 480 / 480 50 / 530 Output Total 619 / 619 100 / 719 Balance 0 / -1400.033 -139 / -139 -50 / -189 Weight last 48 hrs Weight 85 lb 8.63 oz Weight 84 lb 10.52 oz Physical Exam Narrative: General : Patient is well developed , no acute distress, oriented x3 Head : Normal cephalic, a-traumatic. Ears : Pinnae and external canal are normal. Hearing is normal. Eyes : PERRLA, Sclera and injection are normal. No conjunctival discharge. Nose : Mucous membranes are without erythema. Throat : buccal mucosa is normal, gums are without significant recession or hypertrophy. Lungs : Equal chest rise bilaterally, no use of accessory muscles, trachea is midline. Cor : Rate and rhythm are normal. Abdomen : Soft, ND, NT, no g/r/m Extremities : No edema, no cyanosis or clubbing, there is a dorsal right forearm wound with some gauze in it. I quickly pulled the gauze off and there was a mild amount of bleeding. Back : non-tender to palpation, no CVA tenderness. Neuro : CN II - XII intact, Upper and lower extremities have equal and full strength Data 08/24/22 03:04 08/24/22 03:04 Micro: Microbiology 08/22/22 17:50 Sputum Culture - Preliminary Sputum - Expectorated Sputum Gram Negative Rods A&P Assessment and plan (1) NSTEMI (non-ST elevated myocardial infarction): (2) Acute exacerbation of chronic obstructive airways disease: (3) ESRD on dialysis: (4) Congestive heart failure: Qualifiers: Heart failure chronicity: acute on chronic Heart failure type: unspecified Qualified Code(s): I50.9 - Heart failure, unspecified (5) Gallbladder anomaly: Plan She is refusing surgery She is not a candidate for surgery for her gallbladder right now anyway. She is not having acute cholecystitis and the surgery would therefore be elective, which should not be done for at least 6 months following a heart attack. Again she is refusing surgery. 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
[2022-08-24] MEDS: ropinirole 1 mg Tablet PO (21:00)
[2022-08-25] VITALS (9 sets, daily range): BP systolic 103–155; BP diastolic 68–93; PULSE 68–76; RESP 15–16; TEMP 36.6–36.7; O2SAT 92–98
[2022-08-25] MEDS: ipratropium-albuterol 3 mL Neb INHALATION ×2 (07:24→11:19)
[2022-08-25] MEDS: budesonide 0.5 mg/2 mL Neb INHALATION (07:24)
--- NOTE | 2022-08-25 08:04 | PC.NURSE ---
Patient refused breakfast because her pancakes lookl like brains
--- NOTE | 2022-08-25 08:25 | P.PN_ITS ---
Subjective Subjective: Talia is doing a little better today. No more nausea or vomiting. No chest pain. Otherwise she is the same and remains stable for her. Vitals/I&O/Wt Last Vital Signs Temp 98.0 F 08/25/22 07:22 Pulse 70 08/25/22 07:26 Resp 16 08/25/22 07:26 BP 155/79 08/25/22 07:22 Pulse Ox 98 08/25/22 07:26 O2 Del Method 08/25/22 07:26 O2 Flow Rate 2 08/25/22 07:26 FiO2 28 08/24/22 16:48 08/24/22 08/25/22 08/25/22 22:59 06:59 14:59 Intake Total 200 / 680 150 / 830 Output Total 100 / 719 Balance 100 / -39 150 / 111 Weight last 48 hrs Weight 85 lb 8.63 oz Weight 84 lb 10.52 oz Physical Exam Narrative: GENERAL: In general she is comfortable. HEENT: Exam within normal limits. NECK: Supple without jugular vein distention. The carotid upstroke is normal without bruits. BACK: Exam normal. LUNGS: Clear. HEART: Regular rate and rhythm. ABDOMEN: Benign without organomegaly or tenderness. EXTREMITIES: No edema. NEUROLOGIC: Exam normal. SKIN: Unremarkable. Data 08/24/22 03:04 08/24/22 03:04 Micro: Microbiology 08/22/22 17:50 Sputum Culture - Preliminary Sputum - Expectorated Sputum Gram Negative Rods A&P Assessment and plan (1) Protein-energy malnutrition: (2) Gallbladder anomaly: (3) History of renal stent: (4) AAA (abdominal aortic aneurysm): Qualifiers: Presence of rupture: without rupture Qualified Code(s): I71.4 - Abdominal aortic aneurysm, without rupture (5) Hypertension: (6) NSTEMI (non-ST elevated myocardial infarction): (7) Congestive heart failure: Qualifiers: Heart failure chronicity: acute on chronic Heart failure type: unspecified Qualified Code(s): I50.9 - Heart failure, unspecified (8) Acute exacerbation of chronic obstructive airways disease: (9) ESRD on dialysis: (10) Elevated troponin: (11) Thrombocytopenia: (12) Abdominal pain: (13) Obstructive sleep apnea: (14) Peripheral vascular disease: (15) Atypical chest pain: (16) Hypercholesteremia: (17) Endoleak post (EVAR) endovascular aneurysm repair: Plan Talia remains stable from a cardiac standpoint. We will continue to treat her medically at her request which I think is a reasonable approach. Attestations Medical Necessity Statement*: Should be able to go home soon. and Moderate Time for a total of 15 minutes, includes reviewing past or interval history, examining/interviewing patient, counseling patient/family/other support and discussing plan of care with staff Diagnoses Protein-energy malnutrition E46 Gallbladder anomaly Q44.1 History of renal stent AAA (abdominal aortic aneurysm) I71.4 Presence of rupture: without rupture Hypertension I10 NSTEMI (non-ST elevated myocardial infarction) I21.4 Congestive heart failure I50.9 Heart failure chronicity: acute on chronic Heart failure type: unspecified Acute exacerbation of chronic obstructive airways disease J44.1 ESRD on dialysis N18.6; Z99.2 Elevated troponin R77.8 Thrombocytopenia D69.6 Abdominal pain R10.9 Obstructive sleep apnea G47.33 Peripheral vascular disease I73.9 Atypical chest pain R07.89 Hypercholesteremia E78.00 Endoleak post (EVAR) endovascular aneurysm repair T82.330A
[2022-08-25] MEDS: citalopram 20 mg Tablet 40 MG PO (09:03)
[2022-08-25] MEDS: losartan 50 mg Tablet 100 MG PO (09:04)
[2022-08-25] MEDS: metoprolol succinate ER (24 HR) 50 mg Tablet PO (09:04)
[2022-08-25] MEDS: azithromycin 250 mg Tablet PO (09:05)
[2022-08-25] MEDS: BuSPIRONE 10 mg Tablet 5 MG PO (09:05)
[2022-08-25] MEDS: isosorbide mononitrate ER 60 mg Tablet PO (09:06)
[2022-08-25] MEDS: levothyroxine 50 mcg Tablet PO (09:06)
[2022-08-25] MEDS: cloNIDine 0.1 mg Tablet PO (09:06)
[2022-08-25] MEDS: pantoprazole DR 40 mg Tablet PO (09:07)
[2022-08-25] MEDS: aspirin 81 mg EC Tablet PO (09:07)
[2022-08-25] MEDS: atorvastatin 40 mg Tablet PO (09:07)
--- NOTE | 2022-08-25 11:10 | PM.DCS ---
Discharge Providers Date of Admission: 08/21/22 02:58 Date of Discharge: August 25, 2022 Attending Provider at Admission: Preeti Padilla MD Attending Provider at Discharge: Sandy Suarez MD Primary Care Provider: HERBERT Masters Diagnoses at Discharge Discharge Diagnosis (1) Protein-energy malnutrition: Status: Acute (2) Gallbladder anomaly: Status: Acute (3) History of renal stent: Status: Acute Permanent problem details: Herculink stent (4) AAA (abdominal aortic aneurysm): Status: Acute Qualifiers: Presence of rupture: without rupture Qualified Code(s): I71.4 - Abdominal aortic aneurysm, without rupture Permanent problem details: 4.1 x 4.4 x 5.7 cm 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 (5) Hypertension: Status: Acute (6) NSTEMI (non-ST elevated myocardial infarction): Status: Acute (7) Congestive heart failure: Status: Acute Qualifiers: Heart failure chronicity: acute on chronic Heart failure type: unspecified Qualified Code(s): I50.9 - Heart failure, unspecified (8) Acute exacerbation of chronic obstructive airways disease: Status: Resolved (9) ESRD on dialysis: Status: Acute (10) Elevated troponin: Status: Acute (11) Thrombocytopenia: Status: Acute (12) Abdominal pain: Status: Resolved (13) Obstructive sleep apnea: Status: Acute (14) Peripheral vascular disease: Status: Acute (15) Atypical chest pain: Status: Resolved (16) Hypercholesteremia: Status: Acute (17) Endoleak post (EVAR) endovascular aneurysm repair: Status: Acute Reason for Visit Reason for Visit: sob,cough Brief History: As per Dr. Dr. Gold Hali James is a 67 year old female 66-year-old [place] female with history of abdominal aortic aneurysm with endograft placed in 2019, anemia, past history of brain aneurysm, COPD dependent on 3 L of oxygen, history of renal artery stenosis with right renal stent, left renal nephrectomy, hypertension, hyperlipidemia, hypothyroidism, ischemic infarct with end-stage renal disease on maintenance hemodialysis presents to the ER today because of difficulty in breathing and cough which has been getting worse over last 1 week.? Shortness of breath gets worse when she lies down flat.? She states there are multiple family members those were sick and she was trying to stay away from them but thinks she got something from them.? She goes regularly for hemodialysis and as per her has been pretty compliant with the medications and hemodialysis sessions.? As per her she usually checks her blood pressures with dialysis and blood pressures are well controlled.? She has not taken her medication since yesterday.? Complaining of difficulty in breathing on laying down and minimal exertion recently getting worse along with on and off chest pressures.Complains of mild cough without expectoration.? Denies any subjective fever or fever.? Denies any nausea, vomiting, diarrhea.? Denies any headache or current chest pain. Examination patient lying comfortably in bed.? Had received her medications today morning.? Blood pressures running at 178 over 102 mmHg with heart rate of 80 bpm saturating well on 2 L baseline oxygen supplementation. Hospital Course Hospital Course Patient has a complex medical history as noted above. She was initially admitted for CHF exacerbation. She also had NSTEMI. She was seen by cardiology and she was not a candidate for angiogram therefore manage medically. She did receive dialysis during hospital stay. She is on dialysis as an outpatient as well Tuesday. 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 Patient did complete 48 hours of heparin drip during hospital stay. Day before discharge patient developed abdominal pain and therefore ultrasound abdomen was obtained. It showed a questionable mass attached to the gallbladder. Surgical consultation was obtained and patient was deemed not a candidate for surgery at the time and patient also was not interested in surgery and was asymptomatic. Nausea vomiting had resolved. She was asked to follow-up with general surgery as an outpatient for possible staged cholecystectomy in the near future. Patient went home with her sister. Her sister was updated over the phone in detail on day of discharge and prior to that. All questions answered to patient satisfaction. Her blood pressure was also low at times and therefore she was asked to take clonidine as needed instead of scheduled. Her diuretics were also stopped. There was also a gauze that was going into her skin on her right forearm which was removed by general surgery. Patient feels well on day of discharge is active alert oriented and excited to go home. She states she will follow-up with general surgery and cardiology including nephrology as an outpatient. Physical Exam Narrative: General: No acute distress, AO x3, NC oxygen supplementation, very frail appearing female, appars older than stated age. Cachectic HEENT: EOMI Chest: Bronchial breath sounds b/l, clear to ausculation anterior lung gilliam with mild ronchi at bases b/l CVS: S1-S2 regular, no murmurs, no tachycardia, no gallops, no rubs Abdomen: Soft, nontender, no organomegaly, bowel sounds present, morbidly obese Neuro: No focal deficits, no facial deformity, AO x3, power 5/5 in all limbs Skin: multiple areas of ecchymoses on arms. Discharge Data Studies Completed and Pending Completed Studies During Hospitalization Category Date Time Status CT chest wo con [id number] Routine Cat Scan 08/21/22 13:52 Completed XR chest 1V portable [id number] Routine Exams 08/24/22 11:10 Completed XR chest 1V portable [id number] Stat Exams 08/20/22 21:43 Completed CV. echo limited [id number] Routine Ultrasound 08/22/22 06:00 Completed US abdomen complete* [id number] Urgent Ultrasound 08/24/22 08:45 Completed Pending at discharge Category Date Time Status Sputum Culture Routine Lab 08/22/22 17:50 Results Radiology Impressions Chest CT 08/21/22 13:52 IMPRESSION: 1. Small left basilar pleural effusion and adjacent atelectasis. 2. COPD with scattered emphysematous changes. 3. Extensive calcification of the coronary arteries with interval development of small pericardial effusion. 4. Additional findings as above. COMMENTS: In the absence of a history or active diagnosis of lung cancer, it is recommended that this patient with emphysema be evaluated for enrollment in a low dose CT lung cancer screening program. Abdomen Ultrasound 08/24/22 08:45 IMPRESSION: 1. Abnormal gallbladder. Nonshadowing soft tissue mass inseparable from a small portion of the gallbladder wall. Mass measures 2.5 x 1.7 x 0.8 cm. Differential includes polyp, tumefactive sludge and neoplasm. Recommend surgical evaluation and possible cholecystectomy. 2. Moderate atrophy RIGHT kidney and severe atrophy LEFT kidney. 3. RIGHT pleural effusion. Chest X-Ray 08/24/22 11:10 IMPRESSION: Imaging findings of pulmonary edema with small left pleural effusion. Pneumonia should be excluded clinically. Laboratory Results WBC 6.1 10^3/uL (4.0-10.0) 08/24/22 03:04 RBC 3.16 10^6/uL (4.1-5.3) L 08/24/22 03:04 Hgb 9.6 g/dL (11.5-15.3) L 08/24/22 03:04 Hct 32.3 % (37.0-47.0) L 08/24/22 03:04 MCV 102.2 fl (81-99) H 08/24/22 03:04 MCH 30.4 pg (28.0-34.0) 08/24/22 03:04 MCHC 29.7 g/dL (30.0-36.0) L 08/24/22 03:04 RDW 17.0 % (12.1-15.1) H 08/24/22 03:04 Plt Count 99 10^3/cmm (130-400) L 08/24/22 03:04 MPV 9.5 fL (7.4-10.4) 08/24/22 03:04 Neut % (Auto) 78.4 % 08/24/22 03:04 Lymph % (Auto) 17.3 % 08/24/22 03:04 [place]rill % (Auto) 3.8 % 08/24/22 03:04 Eos % (Auto) 0.0 % 08/24/22 03:04 Baso % (Auto) 0.2 % 08/24/22 03:04 Neut # (Auto) 4.80 10^3/uL (1.8-7.7) 08/24/22 03:04 Lymph # (Auto) 1.1 10^3/uL (0.8-4.8) 08/24/22 03:04 [place] # (Auto) 0.2 10^3/uL (0.2-0.9) 08/24/22 03:04 Eos # (Auto) 0.0 10^3/uL (0.0-0.8) 08/24/22 03:04 Baso # (Auto) 0.0 10^3/uL (0.0-0.1) 08/24/22 03:04 Nucleated RBC % (auto) 0 % 08/24/22 03:04 Nucleated RBCs # 0.0 /100WBC 08/24/22 03:04 APTT 69.8 SECONDS (23.9-36.7) H 08/23/22 11:42 D-Dimer 3.30 ug/mIFEU (0-0.59) H 08/21/22 15:03 Sodium 138 mmol/L (136-145) 08/24/22 03:04 Potassium 3.6 mmol/L (3.5-5.1) 08/24/22 03:04 Chloride 100 mmol/L (98-107) 08/24/22 03:04 Carbon Dioxide 27 mmol/L (22-29) 08/24/22 03:04 Anion Gap 14.6 (5-19) 08/24/22 03:04 BUN 19 mg/dL (8-23) 08/24/22 03:04 Creatinine 3.8 mg/dL (0.5-0.9) H 08/24/22 03:04 GFR Calculation 11.9 mL/min (90-130) L 08/24/22 03:04 Glucose 85 mg/dL (65-115) 08/24/22 03:04 Estimat Average Glucose 59 08/22/22 05:38 Hemoglobin A1c 3.7 % (4.0-6.0) L 08/22/22 05:38 Calculated Osmolality 288 mOsm/kg (285-295) 08/24/22 03:04 Calcium 8.3 mg/dL (8.5-10.5) L 08/24/22 03:04 Phosphorus 2.0 mg/dL (2.5-4.5) L 08/24/22 03:04 Magnesium 1.8 mg/dL (1.7-2.3) 08/22/22 03:10 Total Bilirubin 0.2 mg/dL (0.15-1.2) 08/23/22 06:03 AST 17 U/L (0-32) 08/23/22 06:03 ALT 11 U/L (0-33) 08/23/22 06:03 Alkaline Phosphatase 51 U/L (35-105) 08/23/22 06:03 Troponin T Gen 5 ng/L 425 ng/L (0-10) H* 08/24/22 12:22 Troponin T Baseline 404 ng/L (0-10) H* 08/21/22 12:20 Troponin T 120 Minute 467.7 ng/L (0-10) H 08/21/22 01:29 Delta Troponin T 11.7 ABS# (0-10) H* 08/21/22 01:29 Troponin T Hi Sens 6Hr 439.0 ng/L (0-10) H 08/21/22 05:45 Troponin T Hi Sens 6Hr Delta -17.0 ng/L (0-12) L 08/21/22 05:45 NT-Pro-B Natriuret Pep > 79388 pg/mL (0-125) H 08/20/22 23:28 Total Protein 4.9 g/dL (6.6-8.7) L 08/23/22 06:03 Albumin 2.7 g/dL (3.5-5.2) L 08/23/22 06:03 Globulin 2.2 g/dL (1.3-4.6) 08/23/22 06:03 Triglycerides 102 mg/dL (0-150) 08/22/22 03:10 Cholesterol 159 mg/dL (0-200) 08/22/22 03:10 LDL Cholesterol, Calc 81 mg/dL (50-129) 08/22/22 03:10 Total VLDL Cholesterol 20 mg/dL (0-30) 08/22/22 03:10 HDL Cholesterol 58 mg/dL (60-100) L 08/22/22 03:10 Cholesterol/HDL Ratio 2.74 mg/dL (0.0-4.40) 08/22/22 03:10 Vitamin B12 615 pg/mL (232-1245) 08/22/22 03:10 Folate > 20.0 ng/mL (4.8-37.3) 08/22/22 13:20 Nasal Influ A H1 2008 PCR Not detected (NOT DETECT) 08/20/22 23:13 Adenovirus (PCR) Not detected (NOT DETECT) 08/20/22 23:13 C. pneumoniae DNA (PCR) Not detected (NOT DETECT) 08/20/22 23:13 Coronavirus 229E (PCR) Not detected (NOT DETECT) 08/20/22 23:13 Hep Bs Antigen Non-reactive (Nonreactive) 08/23/22:38 Hep Bs Antibody 75.8 (11.5-1000) 08/23/22 09:38 Hepatitis C Antibody Non-reactive (Nonreactive) 08/23/22 09:38 Human Metapneumovir PCR Not detected (NOT DETECT) 08/20/22 23:13 Influenza A (H1) PCR Not detected (NOT DETECT) 08/20/22 23:13 Influenza A (H3) PCR Not detected (NOT DETECT) 08/20/22 23:13 Influenza Type A (PCR) Not detected (NOT DETECT) 08/20/22 23:13 Influenza Type B (PCR) Not detected (NOT DETECT) 08/20/22 23:13 M. pneumoniae (PCR) Not detected (NOT DETECT) 08/20/22 23:13 Parainfluenza 1 (PCR) Not detected (NOT DETECT) 08/20/22 23:13 Parainfluenza 2 (PCR) Not detected (NOT DETECT) 08/20/22 23:13 Parainfluenza 3 (PCR) Not detected (NOT DETECT) 08/20/22 23:13 Parainfluenza 4 (PCR) Not detected (NOT DETECT) 08/20/22 23:13 RSV Type A (PCR) Not detected (NOT DETECT) 08/20/22 23:13 RSV Type B (PCR) Not detected (NOT DETECT) 08/20/22 23:13 Entero/Rhino (PCR) Not detected (NOT DETECT) 08/20/22 23:13 SARS-CoV-2 (PCR) Not detected (NOT DETECT) 08/20/22 23:13 Vitals Last Vital Signs Temp 98.0 F 08/25/22 07:22 Pulse 70 08/25/22 07:26 Resp 16 08/25/22 07:26 BP 155/79 08/25/22 09:06 Pulse Ox 98 08/25/22 07:26 O2 Del Method 08/25/22 07:26 O2 Flow Rate 2 08/25/22 07:26 FiO2 28 08/24/22 16:48 Discharge Plan Discharge Patient Disposition: Home Condition: Stable Prescriptions: New losartan 50 mg Tablet 100 mg PO DAILY 30 Days Qty: 60 0RF polyethylene glycol 3350 17 gram Powder In Packet 17 g PO DAILY PRN (Reason: constipation) Qty: 30 0RF isosorbide mononitrate 60 mg Tablet Extended Release 24 Hr 60 mg PO BID 30 Days Qty: 60 0RF Continued albuterol sulfate 2.5 mg /3 mL (0.083 %) solution for nebulization 2.5 mg INHALATION QID PRN (Reason: Shortness Of Breath) 30 Days Qty: 75 5RF epinephrine 0.3 mg/0.3 mL auto-injector 0.3 mg IM Q10M PRN (Reason: Allergic Reaction) Rx Instructions: for 2 doses albuterol sulfate 90 mcg/actuation HFA aerosol inhaler 2 puff INHALATION 6XD PRN (Reason: Shortness Of Breath) Qty: 6.7 5RF metoprolol succinate 50 mg tablet extended release 24 hr 50 mg PO BID@0830,2100 30 Days Qty: 60 5RF montelukast 10 mg tablet 10 mg PO DAILY@0830 Qty: 30 5RF nitroglycerin [Nitrostat] 0.4 mg tablet, sublingual 0.4 mg SUBLINGUAL Q5M PRN (Reason: Chest Pain) 30 Days Qty: 30 5RF omeprazole 20 mg capsule,delayed release(DR/EC) 20 mg PO DAILY@829 30 Days Qty: 30 5RF ondansetron 8 mg tablet,disintegrating 8 mg PO Q8H PRN (Reason: nausea and vomiting) Qty: 90 0RF doxycycline hyclate 100 mg tablet 100 mg PO BID Qty: 14 0RF budesonide [Pulmicort] 0.5 mg/2 mL suspension for nebulization 0.5 mg inhalation BID Qty: 120 0RF Rx Instructions: NEEDS APPT PRIOR TO FURTHER REFILLS formoterol fumarate [Perforomist] 20 mcg/2 mL solution for nebulization 2 ml inhalation Q12H Qty: 120 0RF Rx Instructions: Needs appt for further refills. revefenacin 175 mcg/3 mL solution for nebulization 175 mcg inhalation DAILY Qty: 90 0RF Rx Instructions: Needs appt for further refills. buspirone 5 mg tablet 5 mg PO TID Qty: 90 2RF citalopram 40 mg tablet 40 mg PO DAILY@0830 30 Days Qty: 30 2RF azithromycin 250 mg tablet 250 mg PO .COMPLEX 90 Days Qty: 45 0RF Rx Instructions: 250 mg PO Tuesday; atorvastatin 40 mg tablet 40 mg PO DAILY Qty: 30 5RF levothyroxine 50 mcg tablet 50 mcg PO DAILY Qty: 30 5RF aspirin 81 mg tablet,delayed release (DR/EC) 81 mg PO DAILY@0830 30 Days Qty: 30 5RF fluticasone propionate [Flonase Allergy Relief] 50 mcg/actuation [place],Suspension 2 spray INTRANASAL DAILY PRN (Reason: Nasal Congestion) polyethylene glycol 3350 [Miralax] 17 gram powder in packet 8.5 g PO DAILY Qty: 100 0RF ropinirole 1 mg tablet 1 mg PO BEDTIME hydroxyzine HCl 50 mg tablet 50 mg PO 829,2099 PRN (Reason: anxiety) sevelamer carbonate 0.8 gram Powder In Packet 0.4 g PO TID Rx Instructions: must administer with a meal/food Changed clonidine HCl 0.1 mg tablet 0.1 mg PO BID@829,2099 PRN (Reason: Hypertension) Qty: 180 3RF Discontinued isosorbide mononitrate 60 mg tablet extended release 24 hr 60 mg PO DAILY@0830 30 Days Qty: 30 5RF bumetanide 1 mg Tablet 0.5 mg PO DAILY amlodipine 10 mg tablet 10 mg PO DAILY Discharge Orders: Discharge Order (Routine); Ordered 08/25/22 Ordered By: Sandy Suarez Referrals: Ward Petit DO [Physician] - 09/21/22 10:20 am (Please follow-up with Dr. Petit on September 21 at 10:20A.M. If you have any questions or need reschedule. Please call ) Guillermo Culver MD [Physician] - 11/02/22 11:00 am (Please kepp your follow-up appointment wuromulo Culver on October 29 at 11:00A.M. If you have any questiopns or need to reschedule. Please call ) Nancy Carrasco FNP-C [Primary Care Provider] - 08/30/22 11:00 am (Please follow-up with Nancy Carrasco on Aug 30 at at 11:00 A.M. If you have any questions or need to reschedule. Please call Also, please follow-up with Dr. Wong on Aug 31 at the allotted time.) Kelly Cooper FNP [Nurse Practitioner] - 09/01/22 9:45 am (Please follow-up with Kelly Cooper on Sep 01 at 9:45a.m. If you have any questions or need to reschedule. Please call ) Discharge Diet: Usual diet Discharge Activity: Increase activity as tolerated and Use walker/crutches as instructed Patient Instructions: Amoxicillin (By mouth), Losartan (By mouth) (Cozaar), Isosorbide Mononitrate (By mouth) (Imdur, Imdur ER, Ismo), Polyethylene Glycol 3350 (By mouth), COPD (Chronic Obstructive Pulmonary Disease) (DC), Hypertension (DC), CHF Stoplight, Opioid Safety, Post Anesthesia Care Activity Restrictions/Additional Instructions: Your blood pressure medications have been adjusted. Imdur has been changed to twice daily. Amlodipine has been stopped and losartan 100 mg oral daily has been started. Continue taking your antihypertensives as discussed. Do not take clonidine on the morning of dialysis. You can take clonidine after dialysis in the evening as needed if BP > 170 systolic. Please check your blood pressure daily at home and maintain a blood pressure diary and follow-up with a primary care provider within next 2 weeks for further adjustment of antihypertensives. Please follow up with nephrology as an outpatient within a 7-10 days of discharge. Discharge Attestations Time Spent in Discharge Care*: greater than 30 min Status at Discharge: Cognitive status at discharge: cognitively intact, Behavioral status at discharge: cooperative, Quality Metrics Clinical Quality Measures [ No reported AMI, CVA or VTE this stay] Coding Level of Care Code Acute Code for Chg Fwd Diagnoses Protein-energy malnutrition E46 Gallbladder anomaly Q44.1 History of renal stent AAA (abdominal aortic aneurysm) I71.4 Presence of rupture: without rupture Hypertension I10 NSTEMI (non-ST elevated myocardial infarction) I21.4 Congestive heart failure I50.9 Heart failure chronicity: acute on chronic Heart failure type: unspecified Acute exacerbation of chronic obstructive airways disease J44.1 ESRD on dialysis N18.6; Z99.2 Elevated troponin R77.8 Thrombocytopenia D69.6 Abdominal pain R10.9 Obstructive sleep apnea G47.33 Peripheral vascular disease I73.9 Atypical chest pain R07.89 Hypercholesteremia E78.00 Endoleak post (EVAR) endovascular aneurysm repair T82.330A
--- NOTE | 2022-08-25 11:46 | P.PN_ITS ---
Subjective Subjective: doing well Medications: Reviewed: Yes Vitals/I&O/Wt Last Vital Signs Temp 98.0 F 08/25/22 07:22 Pulse 72 08/25/22 11:21 Resp 16 08/25/22 11:21 BP 155/79 08/25/22 09:06 Pulse Ox 95 08/25/22 11:21 O2 Del Method 08/25/22 11:21 O2 Flow Rate 2 08/25/22 11:21 FiO2 28 08/24/22 16:48 08/24/22 08/25/22 08/25/22 22:59 06:59 14:59 Intake Total 200 / 680 150 / 830 240 / 240 Output Total 100 / 719 Balance 100 / -39 150 / 111 240 / 240 Weight last 48 hrs Weight 38.8 kg Weight 38.4 kg Physical Exam Narrative: Crackles per repotr S1-S2 regular rate and rhythm per report Has edema Data 08/24/22 03:04 08/24/22 03:04 Micro: Microbiology 08/22/22 17:50 Sputum Culture - Preliminary Sputum - Expectorated Sputum Gram Negative Rods A&P Assessment and plan (1) ESRD on dialysis: Plan End-stage renal disease: On dialysis per Tuesday schedule as outpatient, patient presents with volume overload.HD tomorrow if discharged , should get HD as out pt in AM Hypertension: stopped lasix , continue Losartan 100 mg and Metoprolol 50 mg BID and imdur at DC Acute on chronic respiratory failure: Multifactorial secondary to COPD volume overload, neurology as above, 2 gram sodium restriction and 1500 mill fluid res triction NSTEMI : mx per cardiology Patient evaluated using audiovisual cart. Time spent 35 minutes Attestations Medical Necessity Statement*: Should be able to go home soon. Coding Level of Care Code Acute Code for Chg Fwd Diagnoses ESRD on dialysis N18.6; Z99.2
== END 2022-08-25 14:54 | disposition home or self-care (01) | DRG 280 ==
LOC: ER 08-21 02:57 → CSU 08-21 03:30
PROVIDERS: Emergency Medicine; Hospitalist; Nurse Practitioner; Student in an Organized Health Care Education/Training Program; Admitting Provider Student in an Organized Health Care Education/Training Program; Emergency Provider Emergency Medicine; PCP Nurse Practitioner Family; Visit Provider Internal Medicine
DX: I13.2 Hypertensive heart and chronic kidney disease with heart failure and with stage 5 chronic kidney disease, or end stage renal disease (principal); I50.33 Acute on chronic diastolic (congestive) heart failure; I21.4 Non-ST elevation (NSTEMI) myocardial infarction; N18.6 End stage renal disease; J96.20 Acute and chronic respiratory failure, unspecified whether with hypoxia or hypercapnia; Q44.1 Other congenital malformations of gallbladder; E46 Unspecified protein-calorie malnutrition; Z68.1 Body mass index [BMI] 19.9 or less, adult; D63.1 Anemia in chronic kidney disease; I95.9 Hypotension, unspecified; I71.40 Abdominal aortic aneurysm, without rupture, unspecified; E03.9 Hypothyroidism, unspecified; J44.9 Chronic obstructive pulmonary disease, unspecified; F32.A Depression, unspecified; K21.9 Gastro-esophageal reflux disease without esophagitis; I25.2 Old myocardial infarction; G25.81 Restless legs syndrome; I73.9 Peripheral vascular disease, unspecified; D69.6 Thrombocytopenia, unspecified; E78.00 Pure hypercholesterolemia, unspecified; G47.33 Obstructive sleep apnea (adult) (pediatric); Z95.828 Presence of other vascular implants and grafts; Z99.81 Dependence on supplemental oxygen; Z90.5 Acquired absence of kidney; Z79.82 Long term (current) use of aspirin; Z99.2 Dependence on renal dialysis; Z86.79 Personal history of other diseases of the circulatory system; Z87.891 Personal history of nicotine dependence; Z96.0 Presence of urogenital implants
CPT/HCPCS: 12345; 36415; 71045; 71250; 76700; 80048; 80053; 80061; 82607; 82746; 83036; 83735; 83880; 84100; 84484; 85025; 85049; 85378; 85730; 86706; 86803; 87070; 87077; 87186; 87340; 87486; 87581; 87633; 90935; 93005; 93308; 94640; 94660; 96365; 96372; 96375; 96376; 99285; J0696; J1644; J1940; J2405; J2765; J2930; J7626; P9047; Q0144; Q3014

== ENCOUNTER 2022-09-01 15:34 | Emergency (ER) | payer MEDICARE, MEDICAID, SELFPAY ==
[2022-09-01] VITALS (19 sets, daily range): BP systolic 132–196; BP diastolic 76–89; PULSE 89; RESP 17–20; O2SAT 94–99; BMI 15.4
--- NOTE | 2022-09-01 16:26 | XRR_ITS ---
PROCEDURE INFORMATION: Exam: XR Pelvis Exam date and time: 09/01/2022 5:44 PM Age: 67 years old Clinical indication: Injury or trauma; Fall; Other: Pain on tail bone TECHNIQUE: Imaging protocol: Radiologic exam of the pelvis. Views: 1 or 2 view. COMPARISON: 1. CT abdomen pelvis w con* [id number] 07/09/2022 5:06 AM 2. CR (PELVIS, ) 09/01/2022 5:47 PM FINDINGS: Bones/joints: Demineralized bones. No acute osseous injury. Soft tissues: Bilateral inguinal region surgical clips. Vasculature: Aortoiliac stent graft again visualized. XR/XR pelvis 1-2V* [id number] IMPRESSION: No acute findings.
--- NOTE | 2022-09-01 16:26 | CTR_ITS ---
PROCEDURE INFORMATION: Exam: CT Head Without Contrast Exam date and time: 09/01/2022 6:34 PM Age: 67 years old Clinical indication: Injury or trauma; Fall; Blunt trauma (contusions or hematomas); Additional info: Fall with head injury TECHNIQUE: Imaging protocol: Computed tomography of the head without contrast. Radiation optimization: All CT scans at this facility use at least one of these dose optimization techniques: automated exposure control; mA and/or kV adjustment per patient size (includes targeted exams where dose is matched to clinical indication); or iterative reconstruction. REPORTING DATA: Count of CT and Cardiac NM exams in prior 12 months: This patient has received 7 known CTs and 0 known cardiac nuclear medicine studies in the 12 months prior to the current study. COMPARISON: CT head wo con* [id number] 05/10/2022 9:45 AM RADIATION DOSE METRICS: Total DLP (mGy-cm): 1040.68 FINDINGS: Brain: Bilateral basal ganglia chronic lacunar-type infarcts are unchanged. No acute infarct. No hemorrhage. Stable involutional changes of the brain. No mass effect. Cerebral ventricles: No ventriculomegaly. Paranasal sinuses: Visualized sinuses are unremarkable. No fluid levels. Mastoid air cells: Visualized mastoid air cells are well aerated. Bones/joints: Unremarkable. No acute fracture. Soft tissues: Unremarkable. CT/CT head wo con* [id number] IMPRESSION: No acute intracranial abnormality.
--- NOTE | 2022-09-01 16:26 | XRR_ITS ---
PROCEDURE INFORMATION: Exam: XR Left Ribs Exam date and time: 09/01/2022 5:38 PM Age: 67 years old Clinical indication: Injury or trauma; Fall; Rib area, left side; Blunt trauma; Additional info: Fall, rib injury TECHNIQUE: Imaging protocol: Radiologic exam of the left ribs. Views: 2 views. COMPARISON: 1. CR (CHEST, ) 09/01/2022 5:[address] chest wo con [id number] 08/21/2022 7:14 PM FINDINGS: Tubes, catheters and devices: Right-sided venous catheter is unchanged and partially imaged. Partially imaged aortic stent graft. Bones/joints: Bones are diffusely demineralized. Old left 6th and 7th rib fractures are unchanged posteriorly. No acute displaced rib fracture is seen. Nondisplaced rib fractures may not be detectable by radiograph. Soft tissues: Normal. XR/XR ribs LT 2V* [id number] IMPRESSION: No acute findings.
--- NOTE | 2022-09-01 16:26 | XRR_ITS ---
PROCEDURE INFORMATION: Exam: XR Chest Exam date and time: 09/01/2022 5:34 PM Age: 67 years old Clinical indication: Injury or trauma; Fall; Blunt trauma (contusions or hematomas); Prior surgery; Surgery date: 6+ months; Additional info: Fall, rib injury TECHNIQUE: Imaging protocol: Radiologic exam of the chest. Views: 1 view. COMPARISON: CR XR chest 1V portable [id number] 08/24/2022 12:44 PM FINDINGS: Tubes, catheters and devices: Stable right-sided venous catheter. Stable partially imaged distal thoracic/abdominal aortic stent graft. Lungs: Minimal left lower lobe infiltrate or atelectasis with trace left pleural effusion. Pleural spaces: See Lungs finding. Heart/Mediastinum: Stable heart size. Bones/joints: Stable bones. XR/XR chest 1V [id number] IMPRESSION: Minimal left lower lobe infiltrate or atelectasis with trace left pleural effusion. Correlate for possible pneumonia.
--- NOTE | 2022-09-01 16:36 | XRR_ITS ---
PROCEDURE INFORMATION: Exam: XR Sacrum and Coccyx, 2 or More Views Exam date and time: 09/01/2022 5:47 PM Age: 67 years old Clinical indication: Injury or trauma; Fall; Bleeding/hemorrhage and other: Pain TECHNIQUE: Imaging protocol: XR of the sacrum and coccyx, 2 or more views. COMPARISON: 1. CR (PELVIS, ) 09/01/2022 5:[address] abdomen pelvis w con* [id number] 07/09/2022 5:06 AM FINDINGS: Bones/joints: Bones are diffusely demineralized. Lower lumbar spinal degenerative disc disease is again present. No acute displaced fracture. Soft tissues: Normal. Vasculature: Aortoiliac stent graft is again visualized. XR/XR coccyx 2V [id number] IMPRESSION: No acute findings.
--- NOTE | 2022-09-01 16:36 | CTR_ITS ---
PROCEDURE INFORMATION: Exam: CT Cervical Spine Without Contrast Exam date and time: 09/01/2022 6:37 PM Age: 67 years old Clinical indication: Injury or trauma; Fall; Blunt trauma TECHNIQUE: Imaging protocol: Computed tomography of the cervical spine without contrast. Radiation optimization: All CT scans at this facility use at least one of these dose optimization techniques: automated exposure control; mA and/or kV adjustment per patient size (includes targeted exams where dose is matched to clinical indication); or iterative reconstruction. REPORTING DATA: Count of CT and Cardiac NM exams in prior 12 months: This patient has received 8 known CTs and 0 known cardiac nuclear medicine studies in the 12 months prior to the current study. COMPARISON: 1. MR cervical spin wo con* [id number] 12/10/2020 1:[address] chest wo con [id number] 08/21/2022 7:14 PM RADIATION DOSE METRICS: Total DLP (mGy-cm): 147.17 FINDINGS: Bones/joints: Bones are diffusely demineralized. Near anatomic alignment. No acute fracture. Multilevel degenerative changes are present. No severe spinal canal stenosis. Mild T3 superior endplate height loss is unchanged with CT chest 08/21/2022. Lungs: Emphysema in the lung apices with nodular scarring. Partially imaged presumed hypoventilatory changes in the trachea. Soft tissues: Unremarkable. CT/CT cervical spin wo con* [id number] IMPRESSION: No acute osseous injury.
[2022-09-01] MEDS: morphine 4 mg/mL SDV 1 mL 2 MG IVP (16:50)
[2022-09-01 17:00] LABS: Basophils # 0.1 10^3/uL (0.0-0.1); Basophils % 0.6 %; Eosinophils # 0.2 10^3/uL (0.0-0.8); Eosinophils % 1.9 %; Hematocrit 30.9 % (37.0-47.0); Hemoglobin 8.8 g/dL (11.5-15.3); Lymphocytes # 4.8 10^3/uL (0.8-4.8); Lymphocytes % 50.8 %; Mean Corpuscular HGB Conc 28.5 g/dL (30.0-36.0); Mean Corpuscular Hemoglobin 30.1 pg (28.0-34.0); Mean Corpuscular Volume 105.8 fl (81-99); Mean Platelet Volume 9.6 fL (7.4-10.4); Monocytes # 0.6 10^3/uL (0.2-0.9); Monocytes % 6.1 %; Neutrophils # 3.84 10^3/uL (1.8-7.7); Neutrophils % 40.3 %; Nucleated Red Blood Cells % 0 %; Platelet Count 136 10^3/cmm (130-400); Red Blood Count 2.92 10^6/uL (4.1-5.3); Red Cell Distribution Width 15.9 % (12.1-15.1); White Blood Count 9.5 10^3/uL (4.0-10.0)
[2022-09-01 17:18] LABS: Alanine Aminotransferase 18 U/L (0-33); Albumin Level 2.9 g/dL (3.5-5.2); Alkaline Phosphatase 70 U/L (35-105); Anion Gap 13.4 (5-19); Aspartate Amino Transferase 34 U/L (0-32); Blood Urea Nitrogen 27 mg/dL (8-23); Calcium 8.4 mg/dL (8.5-10.5); Carbon Dioxide 25 mmol/L (22-29); Chloride 97 mmol/L (98-107); Globulin 3.1 g/dL (1.3-4.6); Glomerular Filtration Rate 8.9 mL/min (90-130); Glucose 89 mg/dL (65-115); Osmolality Calculated 275 mOsm/kg (285-295); Potassium 5.4 mmol/L (3.5-5.1); Sodium 130 mmol/L (136-145); Total Bilirubin 0.3 mg/dL (0.15-1.2)
--- NOTE | 2022-09-01 17:31 | ED_ITS ---
HPI - Fall General: Chief Complaint: Fall Stated Complaint: FALL LAST NIGHT Time Seen by Provider: 09/01/22 16:17 Source: patient Limitations: no limitations History of Present Illness: This 67-year-old female with a history of COPD presents to the ER following a fall. She was standing when she lost her balance and fell backwards, hitting her oxygen concentrator. She hit her head and landed on her buttock. She denies any loss of consciousness. She also complains of left rib cage pain which makes it hard for her to take nice deep breaths again. Patient was helped off the floor by her son who was around at a time. She presents to the ER today because of worsening pain. She has widespread bruising all over her body which she says is old. There is a skin tear on the back and the right arm. She bruises very easily. She is in distress due to pain. EMS had given 1 mg of Dilaudid and 4 mg of Zofran prior to arrival. Associated symptoms-after fall: Denies chest pain, headache(s), lightheadedness or neck pain Review of Systems Const: Denies: chills, body aches or change in appetite Eyes: Denies: change in vision or eye discharge ENMT: Denies: throat pain, dental pain or nasal discharge Card: Denies: chest pain or lightheadedness Resp: Reports: dyspnea (Due to COPD) and other (Pain with deep inspiration due to left rib cage pain) : Denies: dysuria Musc: Denies: neck pain or back pain Skin/Breast: Reports: sores (Skin tear in the back and right forearm.), new lesions and other (Multiple skin bruising at different stages of healing. 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 Anemia Atypical chest pain Brain aneurysm Chest pain Chest pain Chronic kidney disease CKD stage III, solitary kidney Chronic migraine without aura, intractable, with status migrainosus Congestive heart failure COPD (chronic obstructive pulmonary disease) COPD with acute exacerbation Depression Elevated troponin End-stage renal disease needing dialysis [place] post (EVAR) endovascular aneurysm repair GERD (gastroesophageal reflux disease) History of stent insertion of renal artery Hypercholesteremia Hypertension Hypertensive urgency Resolved Hyponatremia Hypothyroidism Inguinal swelling Major depressive disorder, recurrent severe without psychotic features Malnourished Normal colonoscopy NSTEMI (non-ST elevated myocardial infarction) Osteoporosis Peripheral vascular disease Protein-energy malnutrition Psychiatric care Restless leg Solitary kidney Surgical History H/O: hysterectomy History of renal stent Herculink stent History of repair of aneurysm of abdominal aorta using endovascular stent graft Hx of tonsillectomy S/P appendectomy Status post endovascular aneurysm repair (EVAR) Family History Mother CAD (coronary artery disease) Chronic kidney disease (CKD) Dementia Stroke Father CAD (coronary artery disease) Cancer Diabetes Brother CAD (coronary artery disease) Cancer Lung disease Grandfather Cancer Grandmother Diabetes Family/Other Lung disease Suicide Other Hypertension Denies family history of Clotting disorder Anesthesia complication Bleeding disorder Social History Smoking and tobacco status: former smoker Quit status (tobacco): has quit using tobacco Year quit tobacco: 2005 - PPD x 35 Years Former quit date comment: Started at age 18 Second hand smoke exposure: No Smoking risk assessment/counseling performed?: No Alcohol intake: never Desire information about alcohol rehabilitation?: No Counseling given: No Desire information about substance/drug rehabilitation?: No Counseling given: No Adopted: No Caregiver/support person: No Lives independently: Yes Household members: family and children Housing: House Marital status: / Marital status details: 2006 Number of children: 12 Number of grandchildren: 4 Highest education level completed: Master's Degree Education level details: Criminal Justice service: No Current occupational status: disabled Current occupational exposures/hazards: No Pets and animals: Yes Pets & animals: cat(s), dog(s) and farm animals Farm Animals: cattle Leisure activites: reading and other Leisure activities details: watch TV Sexually active: No Current gender identity: Female Yudy/Restorationist: Restorationism [employer] Special yudy needs: No Agree to transfusion: Yes Financial difficulty paying for basics: Somewhat Hard Female Reproductive History: Para: 0 Spontaneous abortions: Yes Physical Exam Const: COMMON NORMALS: no acute distress, patient oriented x3, no limitations and alert HENMT: COMMON NORMALS: normocephalic HEAD & SCALP: normocephalic Eye: COMMON NORMALS: EOMs intact bilaterally Chest: COMMONS NORMALS: normal inspection of the chest Resp: COMMON NORMALS: normal respiratory effort, No retractions, No use of accessory muscles and clear to auscultation bilaterally AUSCULTATION: clear to auscultation bilaterally Cardio: COMMON NORMALS: regular rate, regular rhythm and No murmurs present (Cardio) RATE: regular rate RHYTHM: regular rhythm GI: COMMON NORMALS: Normal to inspection, nondistended, normoactive bowel sounds present and non-tender : COMMON NORMALS: Yes no CVA tenderness BLADDER/KIDNEY EXAM: Yes no CVA tenderness Back/Pelvis: COMMON NORMALS: no CVA tenderness LUMBAR SPINE/LOWER BACK: Yes normal to inspection and Yes ROM limited (Due to pain. Mild tenderness on palpation of the lumbar spine) OTHER: No distal neurovascular deficit Extremity: GENERAL: Yes normal exam except as noted OTHER: Full range of movement in both lower extremities though with pain in the lower back. No distal neurovascular deficit Neuro: COMMON NORMALS: patient oriented x3 and no focal motor deficits SENSORIUM/ORIENTATION: Yes alert Psych: COMMON NORMALS: mental status grossly normal and cooperative Skin: NARRATIVE SKIN EXAM: Widespread bruising involving the upper extremities, lower extremities and to a lesser extent the trunk. Skin tear in the back and right forearm. Course Vital Signs: Vital signs: Vital Signs Pulse Rate 89 09/01/22 15:53 Respiratory Rate 20 H 09/01/22 19:52 Blood Pressure 132/89 09/01/22 19:05 Pulse Oximetry 98 09/01/22 19:52 Oxygen Delivery Me thod 09/01/22 18:11 Oxygen Flow Rate 2 09/01/22 18:11 MDM - Fall Medical Decision Making Patient presents to the ER for evaluation following a mechanical fall. She hit her head and also complains of pain in the right rib. CTs and x-rays are negative for acute fracture/dislocation. Patient will be treated symptomatically with pain medications. At the time reevaluation, patient was wanting to go home. She was advised to follow-up with her primary care physician. Reasons to return were discussed. Lab Data 09/01/22 16:50 09/01/22 16:50 Radiology Impressions Chest X-Ray 09/01/22 16:26 IMPRESSION: Minimal left lower lobe infiltrate or atelectasis with trace left pleural effusion. Correlate for possible pneumonia. Head CT 09/01/22 16:26 IMPRESSION: No acute intracranial abnormality. Pelvis X-Ray 09/01/22 16:26 IMPRESSION: No acute findings. Ribs X-Ray 09/01/22 16:26 IMPRESSION: No acute findings. Cervical Spine CT 09/01/22 16:36 IMPRESSION: No acute osseous injury. Coccyx X-Ray 09/01/22 16:36 IMPRESSION: No acute findings. Lumbar Spine X-Ray 09/01/22 17:40 IMPRESSION: Diffuse bony demineralization without definite acute displaced fracture. If there is point tenderness consider CT or MRI. Laboratory Results WBC 9.5 10^3/uL (4.0-10.0) 09/01/22 16:50 RBC 2.92 10^6/uL (4.1-5.3) L 09/01/22 16:50 Hgb 8.8 g/dL (11.5-15.3) L 09/01/22 16:50 Hct 30.9 % (37.0-47.0) L 09/01/22 16:50 MCV 105.8 fl (81-99) H 09/01/22 16:50 MCH 30.1 pg (28.0-34.0) 09/01/22 16:50 MCHC 28.5 g/dL (30.0-36.0) L 09/01/22 16:50 RDW 15.9 % (12.1-15.1) H 09/01/22 16:50 Plt Count 136 10^3/cmm (130-400) 09/01/22 16:50 MPV 9.6 fL (7.4-10.4) 09/01/22 16:50 Neut % (Auto) 40.3 % 09/01/22 16:50 Lymph % (Auto) 50.8 % 09/01/22 16:50 [place] % (Auto) 6.1 % 09/01/22 16:50 Eos % (Auto) 1.9 % 09/01/22 16:50 Baso % (Auto) 0.6 % 09/01/22 16:50 Neut # (Auto) 3.84 10^3/uL (1.8-7.7) 09/01/22 16:50 Lymph # (Auto) 4.8 10^3/uL (0.8-4.8) 09/01/22 16:50 [place] # (Auto) 0.6 10^3/uL (0.2-0.9) 09/01/22 16:50 Eos # (Auto) 0.2 10^3/uL (0.0-0.8) 09/01/22 16:50 Baso # (Auto) 0.1 10^3/uL (0.0-0.1) 09/01/22 16:50 Nucleated RBC % (auto) 0 % 09/01/22 16:50 Nucleated RBCs # 0.0 /100WBC 09/01/22 16:50 Sodium 130 mmol/L (136-145) L 09/01/22 16:50 Potassium 5.4 mmol/L (3.5-5.1) H 09/01/22 16:50 Chloride 97 mmol/L (98-107) L 09/01/22 16:50 Carbon Dioxide 25 mmol/L (22-29) 09/01/22 16:50 Anion Gap 13.4 (5-19) 09/01/22 16:50 BUN 27 mg/dL (8-23) H 09/01/22 16:50 Creatinine 4.9 mg/dL (0.5-0.9) H 09/01/22 16:50 GFR Calculation 8.9 mL/min (90-130) L 09/01/22 16:50 Glucose 89 mg/dL (65-115) 09/01/22 16:50 Calculated Osmolality 275 mOsm/kg (285-295) L 09/01/22 16:50 Calcium 8.4 mg/dL (8.5-10.5) L 09/01/22 16:50 Total Bilirubin 0.3 mg/dL (0.15-1.2) 09/01/22 16:50 AST 34 U/L (0-32) H 09/01/22 16:50 ALT 18 U/L (0-33) 09/01/22 16:50 Alkaline Phosphatase 70 U/L (35-105) 09/01/22 16:50 Total Protein 6.0 g/dL (6.6-8.7) L 09/01/22 16:50 Albumin 2.9 g/dL (3.5-5.2) L 09/01/22 16:50 Globulin 3.1 g/dL (1.3-4.6) 09/01/22 16:50 Discharge Plan Discharge Patient Disposition: Home Clinical Impression: COPD (chronic obstructive pulmonary disease), Fall, Skin tear of right forearm without complication, Contusion of rib on left side Condition: Stable Prescriptions: New hydrocodone-acetaminophen 5-325 mg tablet 1 tab PO Q6H PRN (Reason: pain) Qty: 18 0RF No Action albuterol sulfate 2.5 mg /3 mL (0.083 %) solution for nebulization 2.5 mg INHALATION QID PRN (Reason: Shortness Of Breath) 30 Days Qty: 75 5RF epinephrine 0.3 mg/0.3 mL auto-injector 0.3 mg IM Q10M PRN (Reason: Allergic Reaction) Rx Instructions: for 2 doses albuterol sulfate 90 mcg/actuation HFA aerosol inhaler 2 puff INHALATION 6XD PRN (Reason: Shortness Of Breath) Qty: 6.7 5RF metoprolol succinate 50 mg tablet extended release 24 hr 50 mg PO BID@0830,2100 30 Days Qty: 60 5RF montelukast 10 mg tablet 10 mg PO DAILY@0830 Qty: 30 5RF nitroglycerin [Nitrostat] 0.4 mg tablet, sublingual 0.4 mg SUBLINGUAL Q5M PRN (Reason: Chest Pain) 30 Days Qty: 30 5RF omeprazole 20 mg capsule,delayed release(DR/EC) 20 mg PO DAILY@0830 30 Days Qty: 30 5RF ondansetron 8 mg tablet,disintegrating 8 mg PO Q8H PRN (Reason: nausea and vomiting) Qty: 90 0RF doxycycline hyclate 100 mg tablet 100 mg PO BID Qty: 14 0RF budesonide [Pulmicort] 0.5 mg/2 mL suspension for nebulization 0.5 mg inhalation BID Qty: 120 0RF Rx Instructions: NEEDS APPT PRIOR TO FURTHER REFILLS formoterol fumarate [Perforomist] 20 mcg/2 mL solution for nebulization 2 ml inhalation Q12H Qty: 120 0RF Rx Instructions: Needs appt for further refills. revefenacin 175 mcg/3 mL solution for nebulization 175 mcg inhalation DAILY Qty: 90 0RF Rx Instructions: Needs appt for further refills. buspirone 5 mg tablet 5 mg PO TID Qty: 90 2RF citalopram 40 mg tablet 40 mg PO DAILY@0830 30 Days Qty: 30 2RF azithromycin 250 mg tablet 250 mg PO .COMPLEX 90 Days Qty: 45 0RF Rx Instructions: 250 mg PO Tuesday; atorvastatin 40 mg tablet 40 mg PO DAILY Qty: 30 5RF levothyroxine 50 mcg tablet 50 mcg PO DAILY Qty: 30 5RF aspirin 81 mg tablet,delayed release (DR/EC) 81 mg PO DAILY@0830 30 Days Qty: 30 5RF fluticasone propionate [Flonase Allergy Relief] 50 mcg/actuation [place],Suspension 2 spray INTRANASAL DAILY PRN (Reason: Nasal Congestion) polyethylene glycol 3350 [Miralax] 17 gram powder in packet 8.5 g PO DAILY Qty: 100 0RF ropinirole 1 mg tablet 1 mg PO BEDTIME hydroxyzine HCl 50 mg tablet 50 mg PO 0830,2100 PRN (Reason: anxiety) losartan 50 mg Tablet 100 mg PO DAILY 30 Days Qty: 60 0RF polyethylene glycol 3350 17 gram Powder In Packet 17 g PO DAILY PRN (Reason: constipation) Qty: 30 0RF isosorbide mononitrate 60 mg Tablet Extended Release 24 Hr 60 mg PO BID 30 Days Qty: 60 0RF clonidine HCl 0.1 mg tablet 0.1 mg PO BID@0830,2100 PRN (Reason: Hypertension) Qty: 180 3RF sevelamer carbonate 0.8 gram Powder In Packet 0.4 g PO TID Rx Instructions: must administer with a meal/food Discharge Orders: Discharge ED (Routine); Ordered 09/01/22 Ordered By: Shraddha Beavers Referrals: Nancy Carrasco FNP-C [Primary Care Provider] - Patient Instructions: Opioid Safety, Pain Management Activity Restrictions/Additional Instructions: Take [place] as needed for pain. Keep skin tear clean and dry. You may apply [id number] triple antibiotics to it twice a day. Continue taking your usual home medications. Return with new or worsening symptoms. Coding Level of Care Code ED [employer] for Leann Crowley
--- NOTE | 2022-09-01 17:40 | XRR_ITS ---
PROCEDURE INFORMATION: Exam: XR Lumbosacral Spine Exam date and time: 09/01/2022 5:55 PM Age: 67 years old Clinical indication: Injury or trauma; Fall; Blunt trauma (contusions or hematomas) and other: Lbp TECHNIQUE: Imaging protocol: Radiologic exam of the lumbosacral spine. Views: 2 or 3 views. COMPARISON: 1. CR (PELVIS, ) 09/01/2022 5:[address] abdomen pelvis w con* [id number] 07/09/2022 5:06 AM FINDINGS: Bones/joints: Mild right convex scoliosis versus positional change. L5-S1 anterolisthesis measuring 5 mm is unchanged. The bones are diffusely demineralized. No definite acute displaced fracture. Soft tissues: Unremarkable. Vasculature: Aortoiliac stent graft is again visualized. XR/XR lumbar spine 2-3V* [id number] IMPRESSION: Diffuse bony demineralization without definite acute displaced fracture. If there is point tenderness consider CT or MRI.
[2022-09-01] MEDS: fentaNYL 50 mcg/mL INJ 2mL 25 MCG IVP (19:52)
== END 2022-09-01 21:31 | disposition home or self-care (01) ==
PROVIDERS: Emergency Provider Family Medicine; PCP Nurse Practitioner Family
DX: S20.212A Contusion of left front wall of thorax, initial encounter (principal); J44.9 Chronic obstructive pulmonary disease, unspecified; S51.811A Laceration without foreign body of right forearm, initial encounter; Z79.82 Long term (current) use of aspirin; Z87.891 Personal history of nicotine dependence; I13.2 Hypertensive heart and chronic kidney disease with heart failure and with stage 5 chronic kidney disease, or end stage renal disease; N18.6 End stage renal disease; I50.9 Heart failure, unspecified; I25.2 Old myocardial infarction; W01.198A Fall on same level from slipping, tripping and stumbling with subsequent striking against other object, initial encounter
CPT/HCPCS: 70450; 71045; 71100; 72100; 72125; 72170; 72220; 80053; 85025; 96374; 96375; 99285; J2270; J3010

== ENCOUNTER 2022-09-08 15:19 | Emergency (ER) | payer MEDICARE, MEDICAID, SELFPAY ==
[2022-09-08 15:29] VITALS: BP 182/97; PULSE 83; RESP 18; TEMP 36.4; O2SAT 100; BMI 15.6
--- NOTE | 2022-09-08 15:47 | ECG_ITS ---
[facility] Test Date: 2022-09-08 Pat Name: Hali James Department: Room: Gender: Female Funding Coordinator: : 1955 Requested By: Bryan Mckeon Order Number: [id number] Wil MD: Victor Hugo Gonzalez M.D. Measurements Intervals Sebastian Rate: 84 P: 85 AK: 131 QRS: 87 QRSD: 69 T: 82 QT: 393 QTc: 466 Interpretive Statements SINUS RHYTHM Compared to ECG 08/24/2022 11:43:31 T-wave abnormality no longer present Electronically Signed On 09-09-2022 18:09:20 MARINE BIOLOGIST by Victor Hugo Gonzalez M.D. [email or web address]
--- NOTE | 2022-09-08 15:47 | XRR_ITS ---
PROCEDURE INFORMATION: Exam: XR Spine; Lumbar Exam date and time: 09/08/2022 3:58 PM Age: 67 years old Clinical indication: Injury or trauma; Fall; Patient HX: --pain, swelling, unable to ambulate TECHNIQUE: Imaging protocol: XR of the spine. Exam focused on the lumbar spine. Views: 1 view. 1 view. COMPARISON: CR (PELVIS, ) 09/01/2022 5:55 PM FINDINGS: Bones/joints: Mild dextroscoliosis noted on the AP view. Grade 1 anterolisthesis L5 on S1. Findings are unchanged from prior exam September 01, 2022. Lumbar vertebral body heights appear maintained, without compression deformity. Spondylotic change noted along with degenerative disc disease L2-3 through L5-S1 levels. Vasculature: Aortoiliac stent grafts noted, as seen with prior exam.. Soft tissues: Unremarkable. XR/XR lumbar spine 1V port [id number] IMPRESSION: Spondylotic change with degenerative disc disease, particularly L2-3 through L5-S1 levels, with chronic anterolisthesis L5 on S1 and mild chronic dextroscoliosis. No fracture or compression deformity is seen.
--- NOTE | 2022-09-08 15:47 | XRR_ITS ---
PROCEDURE INFORMATION: Exam: XR Pelvis Exam date and time: 09/08/2022 4:02 PM Age: 67 years old Clinical indication: Injury or trauma; Fall; Blunt trauma (contusions or hematomas); Bilateral; Pelvic region; Patient HX: --pain, swelling, unable to ambulate TECHNIQUE: Imaging protocol: Radiologic exam of the pelvis. Views: 1 or 2 view. COMPARISON: CR (PELVIS, ) 09/01/2022 5:44 PM FINDINGS: Bones/joints: No fracture or diastasis is seen about pelvis. No fracture or dislocation is seen about the hips. No bone destruction or lesion. Postsurgical clips upper femoral region bilaterally. Aortoiliac stent grafts noted. Soft tissues: See Bones/joints finding. Other findings: No significant change with prior exam. XR/XR pelvis 1-2V* [id number] IMPRESSION: No fracture or acute osseous abnormality.
--- NOTE | 2022-09-08 15:47 | XRR_ITS ---
PROCEDURE INFORMATION: Exam: XR Chest Exam date and time: 09/08/2022 3:56 PM Age: 67 years old Clinical indication: Shortness of breath; Patient HX: Pain, swelling, unable to ambulate; Additional info: SOB TECHNIQUE: Imaging protocol: Radiologic exam of the chest. Views: 1 view. COMPARISON: CR (CHEST, ) 09/01/2022 5:34 PM FINDINGS: Tubes, catheters and devices: Central venous access catheter on the right, unchanged from prior exam. Partially visualized distal thoracic/abdominal aorta stent graft, as noted with prior exam. Lungs: Interval improvement left lung base and trace left pleural effusion from previous exam. Mild residual interstitial prominence in the left lung base with today's exam. No focal consolidation. Underlying COPD. No pulmonary edema. Pleural spaces: No significant pleural effusion. No pneumothorax is seen. Heart/Mediastinum: Unremarkable. No cardiomegaly. Bones/joints: No acute osseous abnormality. XR/XR chest 1V portable [id number] IMPRESSION: 1. Interval improvement left lung base from last month's exam, with interval resolution of trace pleural effusion and interval decrease in atelectasis and/or infiltrate, with mild residual interstitial prominence in the left lung base with today's exam. This could reflect interstitial scarring or small amount of interstitial infiltrate. No consolidation. 2. COPD. 3. Central venous catheter on the right and aortic stent graft as noted with prior exam.
--- NOTE | 2022-09-08 15:49 | ED_ITS ---
HPI - SOB/Dyspnea General: Chief Complaint: Shortness of Breath/Dyspnea Stated Complaint: resp distress Time Seen by Provider: 09/08/22 15:24 Source: patient Mode of arrival: EMS Limitations: no limitations History of Present Illness: HPI Narrative: This patient was transported by EMS to our emergency department. She called EMS because of what she describes as shortness of breath. She has a known history of oxygen dependent COPD. She states she has been giving her self treatments at home every 5 minutes with her inhaler without much improvement. She denies any fevers or chills. She states that she is also having extreme low back and buttock pain. She apparently fell against her oxygen concentrator several days ago and has had sustained pain since that time. She denies any known exposure to infectious disease, fever, chills etc. She does have a history of end-stage renal any disease and gets hemodialysis on Tuesday and Tuesday. In route EMS provided her with no treatment, Solu-Medrol, magnesium. She arrived with a nonrebreather in place at 15 L. MD elicited complaint: shortness of breath Pertinent past history: COPD and congestive heart failure Associated symptoms: Deny abdominal pain, chest pain, extremity pain, fever(s), nausea, palpitations or vomiting Related Data: Home oxygen amount: 2 liters Review of Systems Const: Denies: fever(s) or chills Eyes: Denies: change in vision ENMT: Denies: throat pain, odynophagia, nasal discharge or nasal congestion Card: Denies: chest pain or palpitations Resp: Reports: dyspnea and wheezing GI: Denies: abdominal pain, nausea, vomiting or diarrhea : Denies: flank pain, difficulty voiding, dysuria or urinary frequency Musc: Reports: back pain; Denies: neck pain or extremity pain Skin/Breast: Denies: rash Neuro: Denies: headache(s), numbness in extremities or weakness in extremities PFSH ED PFSH: Medical History AAA (abdominal aortic aneurysm) 4.1 x 4.4 x 5.7 cm 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 Anemia Atypical chest pain Brain aneurysm Chest pain Chest pain Chronic kidney disease CKD stage III, solitary kidney Chronic migraine without aura, intractable, with status migrainosus Congestive heart failure COPD (chronic obstructive pulmonary disease) COPD with acute exacerbation Depression Elevated troponin End-stage renal disease needing dialysis Endoleak post (EVAR) endovascular aneurysm repair GERD (gastroesophageal reflux disease) History of stent insertion of renal artery Hypercholesteremia Hypertension Hypertensive urgency Resolved Hyponatremia Hypothyroidism Inguinal swelling Major depressive disorder, recurrent severe without psychotic features Malnourished Normal colonoscopy NSTEMI (non-ST elevated myocardial infarction) Osteoporosis Peripheral vascular disease Protein-energy malnutrition Psychiatric care Restless leg Solitary kidney Surgical History H/O: hysterectomy History of renal stent Herculink stent History of repair of aneurysm of abdominal aorta using endovascular stent graft Hx of tonsillectomy S/P appendectomy Status post endovascular aneurysm repair (EVAR) Family History Mother CAD (coronary artery disease) Chronic kidney disease (CKD) Dementia Stroke Father CAD (coronary artery disease) Cancer Diabetes Brother CAD (coronary artery disease) Cancer Lung disease Grandfather Cancer Grandmother Diabetes Family/Other Lung disease Suicide Other Hypertension Denies family history of Clotting disorder Anesthesia complication Bleeding disorder Social History Smoking and tobacco status: former smoker Quit status (tobacco): has quit using tobacco Year quit tobacco: 2005 - PPD x 35 Years Former quit date comment: Started at age 18 Second hand smoke exposure: No Smoking risk assessment/counseling performed?: No Alcohol intake: never Desire information about alcohol rehabilitation?: No Counseling given: No Desire information about substance/drug rehabilitation?: No Counseling given: No Adopted: No Caregiver/support person: No Lives independently: Yes Household members: family and children Housing: House Marital status: / Marital status details: 2005 Number of children: 12 Number of grandchildren: 4 Highest education level completed: Master's Degree Education level details: Criminal Justice service: No Current occupational status: disabled Current occupational exposures/hazards: No Pets and animals: Yes Pets & animals: cat(s), dog(s) and farm animals Farm Animals: cattle Leisure activites: reading and other Leisure activities details: watch TV Sexually active: No Current gender identity: Female Yudy/Mormon: [employer] Special yudy needs: No Agree to transfusion: Yes Financial difficulty paying for basics: Somewhat Hard Female Reproductive History: Para: 0 Spontaneous abortions: Yes Physical Exam Narrative: EXAM NARRATIVE: Thin woman looks older than chronological age. She answers questions in a goal- directed fashion. She appears very thin. Const: COMMON NORMALS: patient oriented x3 and alert GENERAL APPEARANCE: cooperative NUTRITIONAL APPEARANCE: thin HENMT: COMMON NORMALS: normocephalic, Normal nasal mucous membranes and turbinates present, moist oral mucous membranes and oropharynx normal HEAD & SCALP: normocephalic FACE & SINUS: normal facial exam NOSE: Normal nasal mucous membranes and turbinates present Eye: COMMON NORMALS: Equal, round and reactive pupils present, EOMs intact bilaterally and conjunctivae normal CONJUNCTIVA: Yes conjunctivae normal PUPIL: Yes Equal, round and reactive pupils present Neck/C-Spine: COMMON NORMALS: full ROM, no JVD and No carotid bruits Chest: COMMONS NORMALS: normal inspection of the chest Resp: EFFORT & INSPECTION: Yes able to speak in complete sentences AUSCULTATION: diminished lung sounds Cardio: COMMON NORMALS: no JVD, regular rate, regular rhythm, No murmurs present (Cardio) and Peripheral pulses 2+ throughout RATE: regular rate RHYTHM: regular rhythm PERIPHERAL PULSES: Peripheral pulses 2+ throughout GI: COMMON NORMALS: Normal to inspection, nondistended, normoactive bowel sounds present and Soft to palpation PALPATION: Yes Soft to palpation Back/Pelvis: GENERAL BACK: Yes ecchymosis THORACIC SPINE/UPPER BACK: No thoracic spinal tenderness LUMBAR SPINE/LOWER BACK: No lumbar spinal tenderness PELVIS: Yes no pain with anterior-posterior compression and Yes no pain with lateral compression BACK IMAGE (FEMALE): 1. Area of palpable tenderness 2. Ecchymosis and abrasions Extremity: COMMON NORMALS: normal to inspection, full ROM, no calf tenderness and no pedal edema GENERAL: Yes AV fistula Neuro: COMMON NORMALS: patient oriented x3, moves all extremities, no focal motor deficits and no sensory deficits noted SENSORIUM/ORIENTATION: Yes alert Psych: COMMON NORMALS: mental status grossly normal Skin: COMMON NORMALS: no rashes or lesions noted and no wounds GENERAL SKIN EXAM: no rashes or lesions noted and ecchymosis Course Reevaluation(s): Reevaluation #1: Patient states she continues to breathe very well and is is very comfortable. She still has some sacral pain. Patient's chest x-ray another parameters are very reassuring. She appears to have a contusion to her sacrum without any evidence of acute fracture etc. at this time. There is no skin breakdown etc. Plan will be to continue analgesics and have her continue her usual nebulization and home oxygen. We will give her dose of dexamethasone in the emergency department to help continue with her COPD treatment. No evidence of pneumonia etc. And I am reluctant given her markedly decreased bone density to prescribe any prolonged steroids. Time: 18:09 Vital Signs: Vital signs: Vital Signs Temperature 97.5 F L 09/08/22 15:29 Pulse Rate 86 09/08/22 16:22 Respiratory Rate 17 09/08/22 16:22 Blood Pressure 180/86 09/08/22 16:22 Pulse Oximetry 99 09/08/22 16:22 Oxygen Delivery Me thod 09/08/22 16:22 Oxygen Flow Rate 3 09/08/22 16:22 MDM - SOB/Dyspnea Medical Decision Making Patient came to our emergency department because of some difficulty breathing which was evaluated and treated by EMS prior to arrival. Much of her symptoms may be more related to her pain in her sacrum and back. She apparently had a fall approximately week ago and landed on her oxygen concentrator and suffered large areas of contusion and abrasion to her back and sacrum. She does have oxygen dependent COPD and certainly had respiratory distress as evaluated by EMS. Her evaluation in the emergency department revealed her to be significantly improved and requiring only approximately 2 L of oxygen which is her normal oxygen rate at home. Chest x-ray was reassuring and laboratories were essentially unchanged from her chronic laboratories. She has a chronic kidney disease patient and receives 3 times a week hemodialysis. Plain films of sacrum pelvis and lower back area were also unremarkable for any evidence of acute fracture demineralization etc. After continued observation in the emergency department she continued to be stable and improved with respect to her respiratory status and in fact back at her baseline. Plan will be to discharge her with some analgesia for her contused low back and sacrum as well as to continue her usual nebulization treatments and other therapies. Stable at this time with good return precautions discussed. Medical Records I reviewed the patient's medical records. Prior ER visit was reviewed. Lab Data I reviewed the patient's lab results. 09/08/22 16:50 09/08/22 16:50 Labs/Radiology: Radiology Impressions Chest X-Ray 09/08/22 15:47 IMPRESSION: 1. Interval improvement left lung base from last month's exam, with interval resolution of trace pleural effusion and interval decrease in atelectasis and/or infiltrate, with mild residual interstitial prominence in the left lung base with today's exam. This could reflect interstitial scarring or small amount of interstitial infiltrate. No consolidation. 2. COPD. 3. Central venous catheter on the right and aortic stent graft as noted with prior exam. Lumbar Spine X-Ray 09/08/22 15:47 IMPRESSION: Spondylotic change with degenerative disc disease, particularly L2-3 through L5-S1 levels, with chronic anterolisthesis L5 on S1 and mild chronic dextroscoliosis. No fracture or compression deformity is seen. Pelvis X-Ray 09/08/22 15:47 IMPRESSION: No fracture or acute osseous abnormality. Laboratory Results WBC 4.7 10^3/uL (4.0-10.0) 09/08/22 16:50 RBC 2.93 10^6/uL (4.1-5.3) L 09/08/22 16:50 Hgb 8.8 g/dL (11.5-15.3) L 09/08/22 16:50 Hct 30.9 % (37.0-47.0) L 09/08/22 16:50 MCV 105.5 fl (81-99) H 09/08/22 16:50 MCH 30.0 pg (28.0-34.0) 09/08/22 16:50 MCHC 28.5 g/dL (30.0-36.0) L 09/08/22 16:50 RDW 17.0 % (12.1-15.1) H 09/08/22 16:50 Plt Count 162 10^3/cmm (130-400) 09/08/22 16:50 MPV 9.3 fL (7.4-10.4) 09/08/22 16:50 Neut % (Auto) 71.3 % 09/08/22 16:50 Lymph % (Auto) 25.1 % 09/08/22 16:50 [place] % (Auto) 2.6 % 09/08/22 16:50 Eos % (Auto) 0.0 % 09/08/22 16:50 Baso % (Auto) 0.4 % 09/08/22 16:50 Neut # (Auto) 3.33 10^3/uL (1.8-7.7) 09/08/22 16:50 Lymph # (Auto) 1.2 10^3/uL (0.8-4.8) 09/08/22 16:50 [place] # (Auto) 0.1 10^3/uL (0.2-0.9) L 09/08/22 16:50 Eos # (Auto) 0.0 10^3/uL (0.0-0.8) 09/08/22 16:50 Baso # (Auto) 0.0 10^3/uL (0.0-0.1) 09/08/22 16:50 Nucleated RBC % (auto) 0 % 09/08/22 16:50 Nucleated RBCs # 0.0 /100WBC 09/08/22 16:50 Sodium 136 mmol/L (136-145) 09/08/22 16:50 Potassium 5.0 mmol/L (3.5-5.1) 09/08/22 16:50 Chloride 99 mmol/L (98-107) 09/08/22 16:50 Carbon Dioxide 24 mmol/L (22-29) 09/08/22 16:50 Anion Gap 18.0 (5-19) 09/08/22 16:50 BUN 21 mg/dL (8-23) 09/08/22 16:50 Creatinine 3.8 mg/dL (0.5-0.9) H 09/08/22 16:50 GFR Calculation 11.9 mL/min (90-130) L 09/08/22 16:50 Glucose 91 mg/dL (65-115) 09/08/22 16:50 Calculated Osmolality 285 mOsm/kg (285-295) 09/08/22 16:50 Calcium 9.3 mg/dL (8.5-10.5) 09/08/22 16:50 Total Bilirubin 0.3 mg/dL (0.15-1.2) 09/08/22 16:50 AST 29 U/L (0-32) 09/08/22 16:50 ALT 16 U/L (0-33) 09/08/22 16:50 Alkaline Phosphatase 85 U/L (35-105) 09/08/22 16:50 Total Protein 6.4 g/dL (6.6-8.7) L 09/08/22 16:50 Albumin 3.1 g/dL (3.5-5.2) L 09/08/22 16:50 Globulin 3.3 g/dL (1.3-4.6) 09/08/22 16:50 Discharge Plan Discharge Patient Disposition: Home Clinical Impression: COPD (chronic obstructive pulmonary disease), Contusion of sacrum Condition: Stable Prescriptions: New hydrocodone-acetaminophen 5-325 mg tablet 1 tab PO BID PRN (Reason: pain) Qty: 10 0RF No Action albuterol sulfate 2.5 mg /3 mL (0.083 %) solution for nebulization 2.5 mg INHALATION QID PRN (Reason: Shortness Of Breath) 30 Days Qty: 75 5RF epinephrine 0.3 mg/0.3 mL auto-injector 0.3 mg IM Q10M PRN (Reason: Allergic Reaction) Rx Instructions: for 2 doses albuterol sulfate 90 mcg/actuation HFA aerosol inhaler 2 puff INHALATION 6XD PRN (Reason: Shortness Of Breath) Qty: 6.7 5RF metoprolol succinate 50 mg tablet extended release 24 hr 50 mg PO BID@0830,2100 30 Days Qty: 60 5RF montelukast 10 mg tablet 10 mg PO DAILY@0830 Qty: 30 5RF nitroglycerin [Nitrostat] 0.4 mg tablet, sublingual 0.4 mg SUBLINGUAL Q5M PRN (Reason: Chest Pain) 30 Days Qty: 30 5RF omeprazole 20 mg capsule,delayed release(DR/EC) 20 mg PO DAILY@0830 30 Days Qty: 30 5RF ondansetron 8 mg tablet,disintegrating 8 mg PO Q8H PRN (Reason: nausea and vomiting) Qty: 90 0RF doxycycline hyclate 100 mg tablet 100 mg PO BID Qty: 14 0RF budesonide [Pulmicort] 0.5 mg/2 mL suspension for nebulization 0.5 mg inhalation BID Qty: 120 0RF Rx Instructions: NEEDS APPT PRIOR TO FURTHER REFILLS formoterol fumarate [Perforomist] 20 mcg/2 mL solution for nebulization 2 ml inhalation Q12H Qty: 120 0RF Rx Instructions: Needs appt for further refills. revefenacin 175 mcg/3 mL solution for nebulization 175 mcg inhalation DAILY Qty: 90 0RF Rx Instructions: Needs appt for further refills. buspirone 5 mg tablet 5 mg PO TID Qty: 90 2RF citalopram 40 mg tablet 40 mg PO DAILY@0830 30 Days Qty: 30 2RF azithromycin 250 mg tablet 250 mg PO .COMPLEX 90 Days Qty: 45 0RF Rx Instructions: 250 mg PO Tuesday; atorvastatin 40 mg tablet 40 mg PO DAILY Qty: 30 5RF levothyroxine 50 mcg tablet 50 mcg PO DAILY Qty: 30 5RF aspirin 81 mg tablet,delayed release (DR/EC) 81 mg PO DAILY@0830 30 Days Qty: 30 5RF fluticasone propionate [Flonase Allergy Relief] 50 mcg/actuation [place],Suspension 2 spray INTRANASAL DAILY PRN (Reason: Nasal Congestion) ropinirole 1 mg tablet 1 mg PO BEDTIME hydroxyzine HCl 50 mg tablet 50 mg PO 0830,2100 PRN (Reason: anxiety) losartan 50 mg Tablet 100 mg PO DAILY 30 Days Qty: 60 0RF polyethylene glycol 3350 17 gram Powder In Packet 17 g PO DAILY PRN (Reason: constipation) Qty: 30 0RF isosorbide mononitrate 60 mg Tablet Extended Release 24 Hr 60 mg PO BID 30 Days Qty: 60 0RF clonidine HCl 0.1 mg tablet 0.1 mg PO BID@0830,2100 PRN (Reason: Hypertension) Qty: 180 3RF bumetanide 0.5 mg tablet 0.5 mg PO DAILY RenaPlex-D 800 mcg-12.5 mg -2,000 unit tablet 1 tab PO DAILY sevelamer carbonate 0.8 gram Powder In Packet 0.4 g PO TID Rx Instructions: must administer with a meal/food hydrocodone-acetaminophen 5-325 mg tablet 1 tab PO Q6H PRN (Reason: pain) Qty: 18 0RF Discharge Orders: Discharge ED (Routine); Ordered 09/08/22 Ordered By: Bryan Mckeon Referrals: Nancy Carrasco FNP-C [Primary Care Provider] - Patient Instructions: Opioid Safety, Pain Management Coding Level of Care Code ED Biomedical Equipment Support Specialist for Leann Crowley
[2022-09-08 16:22] VITALS: BP 180/86; PULSE 86; RESP 17; O2SAT 99
--- NOTE | 2022-09-08 16:44 | PC.PHAR ---
PT IS HERE FROM HOME HAS A HOME HEALTH NURSE NAMED ÁNGELA FROM [facility] THAT SETS UP PTS MEDS- DAUGHTER THAT LIVES WITH PT SENT A HOME MED LIST WITH EMS
[2022-09-08 17:10] LABS: Basophils % 0.4 %; Hematocrit 30.9 % (37.0-47.0); Hemoglobin 8.8 g/dL (11.5-15.3); Lymphocytes # 1.2 10^3/uL (0.8-4.8); Lymphocytes % 25.1 %; Mean Corpuscular HGB Conc 28.5 g/dL (30.0-36.0); Mean Corpuscular Volume 105.5 fl (81-99); Mean Platelet Volume 9.3 fL (7.4-10.4); Monocytes # 0.1 10^3/uL (0.2-0.9); Monocytes % 2.6 %; Neutrophils # 3.33 10^3/uL (1.8-7.7); Neutrophils % 71.3 %; Nucleated Red Blood Cells % 0 %; Platelet Count 162 10^3/cmm (130-400); Red Blood Count 2.93 10^6/uL (4.1-5.3); White Blood Count 4.7 10^3/uL (4.0-10.0)
[2022-09-08 17:31] LABS: Alanine Aminotransferase 16 U/L (0-33); Albumin Level 3.1 g/dL (3.5-5.2); Alkaline Phosphatase 85 U/L (35-105); Aspartate Amino Transferase 29 U/L (0-32); Blood Urea Nitrogen 21 mg/dL (8-23); Calcium 9.3 mg/dL (8.5-10.5); Carbon Dioxide 24 mmol/L (22-29); Chloride 99 mmol/L (98-107); Globulin 3.3 g/dL (1.3-4.6); Glomerular Filtration Rate 11.9 mL/min (90-130); Glucose 91 mg/dL (65-115); Osmolality Calculated 285 mOsm/kg (285-295); Sodium 136 mmol/L (136-145); Total Bilirubin 0.3 mg/dL (0.15-1.2); Total Protein 6.4 g/dL (6.6-8.7)
[2022-09-08] MEDS: dexamethasone 10 mg/mL INJ IVP (19:31)
[2022-09-08] MEDS: HYDROcodone-acetaminophen 5-325 mg Tablet 1 TAB PO (19:31)
[2022-09-08 19:32] VITALS: BP 188/93; PULSE 91; O2SAT 98
[2022-09-08] MEDS: hyDRALAzine 20 mg/mL INJ 1 mL 10 MG IVP (19:50)
[2022-09-08 20:17] VITALS: BP 171/82; PULSE 86; RESP 18; TEMP 36.9; O2SAT 100
== END 2022-09-08 20:19 | disposition home or self-care (01) ==
PROVIDERS: Emergency Provider Emergency Medicine; PCP Nurse Practitioner Family
DX: J44.9 Chronic obstructive pulmonary disease, unspecified (principal); S30.0XXA Contusion of lower back and pelvis, initial encounter; W22.09XA Striking against other stationary object, initial encounter; Z99.81 Dependence on supplemental oxygen; I13.2 Hypertensive heart and chronic kidney disease with heart failure and with stage 5 chronic kidney disease, or end stage renal disease; N18.6 End stage renal disease; I50.9 Heart failure, unspecified; Z99.2 Dependence on renal dialysis; I25.2 Old myocardial infarction; Z87.891 Personal history of nicotine dependence; Z79.82 Long term (current) use of aspirin
CPT/HCPCS: 36415; 71045; 72020; 72170; 80053; 85025; 93005; 96374; 96375; 99285; J0360; J1100

== ENCOUNTER → 2022-09-13 13:58 | Outpatient (BNVA) | payer MEDICARE, MEDICAID, SELFPAY | PROVIDERS: PCP Nurse Practitioner Family; Visit Provider Internal Medicine Cardiovascular Disease | DX: Z01.810 Encounter for preprocedural cardiovascular examination (principal); I71.40 Abdominal aortic aneurysm, without rupture, unspecified; I13.2 Hypertensive heart and chronic kidney disease with heart failure and with stage 5 chronic kidney disease, or end stage renal disease; N18.6 End stage renal disease; I50.9 Heart failure, unspecified; Z99.2 Dependence on renal dialysis; Z87.891 Personal history of nicotine dependence; Z98.890 Other specified postprocedural states; J44.9 Chronic obstructive pulmonary disease, unspecified; Z79.82 Long term (current) use of aspirin | CPT/HCPCS: 99214 ==

== ENCOUNTER 2022-09-16 08:24 | Inpatient (IN) | payer MEDICARE, MEDICAID, SELFPAY ==
[2022-09-16] VITALS (28 sets, daily range): BP systolic 107–214; BP diastolic 67–139; PULSE 90–107; RESP 13–28; TEMP 36.2–36.4; O2SAT 91–100
--- NOTE | 2022-09-16 08:33 | XR_ITS ---
WS: [id number] Portable AP upright chest, 09/16/2022 Clinical Data: sob/cp Comparison: Portable chest, 09/08/2022 Findings: There is a patchy opacity overlying the left diaphragm which is probably a combination of p neumonia, atelectasis and effusion. There may be a patchy opacity in the left upper lobe which is les s dense. The right lung is clear. The heart is normal. The aortic arch and descending thoracic aorta show calcification and tortuosity. No nodules or masses are seen. There is no pneumothorax. There is an artificial stent in the junction of the thoracic and abdominal aorta. There is also an aortic sten t. There is a large bore dialysis catheter which enters the right subclavian vein and ends at the cav al atrial junction. XR/XR chest 1V portable [id number] Impression: 1. Patchy left lower lobe opacity. 2. Minimal patchy left upper lobe opacity. 3. Atherosclerosis.
--- NOTE | 2022-09-16 08:34 | ECG_ITS ---
[facility] Test Date: 2022-09-16 Pat Name: Hali James Department: Room: Gender: Female Icing Maker: : 1955 Requested By: Martín Briggs Order Number: [id number] Wil MD: Guillermo Culver M.D. Measurements Intervals [place] Rate: 96 P: 81 KS: 145 QRS: 80 QRSD: 74 T: 65 QT: 353 QTc: 447 Interpretive Statements SINUS RHYTHM POSSIBLE LEFT ATRIAL ENLARGEMENT [-0.1mV P-WAVE IN V1/V2] POSSIBLE LEFT VENTRICULAR HYPERTROPHY [VOLTAGE CRITERIA PLUS LAE OR QRS WIDENING] Compared to ECG 09/08/2022 16:23:44 No significant changes Electronically Signed On 09-16-2022 23:37:25 CANDY DEPOSITING MACHINE OPERATOR by Guillermo Culver M.D. [email or web address]
--- NOTE | 2022-09-16 08:44 | W.ED.SOB ---
Documented by User: LIZETTE Moise 09/16/22 16:29 HPI - SOB/Dyspnea General: Chief Complaint: ER Hold Stated Complaint: SOB/ COPD Time Seen by Provider: 09/16/22 08:35 History of Present Illness: HPI Narrative: Patient is a 67-year-old female comes to the ED via EMS with shortness of breath. Patient has history of COPD, AAA, CHF and end-stage renal disease and on dialysis. Patient was seen here in the ED for same complaint back on September 08. Patient is on 4 L of oxygen continuously at home. Chest pain and shortness of breath started this morning when she woke up. Chest pain is located in the center of her chest and rates it a 10 out of 10. Denies any cough, fever or any other upper respiratory symptoms at this time. Patient received a dose of 125 mg of Solu-Medrol and DuoNeb breathing treatment by EMS while in route. Denies any abdominal pain, nausea/vomiting, bladder or bowel symptoms. Associated symptoms: Reports chest pain; Deny abdominal pain, fever(s), nausea, orthopnea, palpitations or vomiting Review of Systems Const: Denies: fever(s), chills or fatigue Eyes: Denies: change in vision or eye discomfort ENMT: Denies: throat pain, odynophagia, nasal discharge or nasal congestion Card: Reports: chest pain; Denies: palpitations, edema, swelling of feet/ankles, dyspnea on exertion or orthopnea Resp: Reports: dyspnea; Denies: productive cough or non-productive cough GI: Denies: abdominal pain, nausea, vomiting, diarrhea, constipation or hematochezia : Denies: flank pain, dysuria or hematuria Musc: Denies: neck pain, back pain or extremity swelling Skin/Breast: Denies: rash or new lesions Neuro: Denies: headache(s), numbness in extremities or weakness in extremities PFS ED PFSH: Medical History AAA (abdominal aortic aneurysm) 4.1 x 4.4 x 5.7 cm 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 Anemia Atypical chest pain Brain aneurysm Chest pain Chest pain Chronic kidney disease CKD stage III, solitary kidney Chronic migraine without aura, intractable, with status migrainosus Congestive heart failure COPD (chronic obstructive pulmonary disease) COPD with acute exacerbation Depression Elevated troponin End-stage renal disease needing dialysis Endoleak post (EVAR) endovascular aneurysm repair GERD (gastroesophageal reflux disease) History of stent insertion of renal artery Hypercholesteremia Hypertension Hypertensive urgency Resolved Hyponatremia Hypothyroidism Inguinal swelling Major depressive disorder, recurrent severe without psychotic features Malnourished Normal colonoscopy NSTEMI (non-ST elevated myocardial infarction) Osteoporosis Peripheral vascular disease Protein-energy malnutrition Psychiatric care Restless leg Solitary kidney Surgical History H/O: hysterectomy History of renal stent Herculink stent History of repair of aneurysm of abdominal aorta using endovascular stent graft Hx of tonsillectomy S/P appendectomy Status post endovascular aneurysm repair (EVAR) Family History Mother CAD (coronary artery disease) Chronic kidney disease (CKD) Dementia Stroke Father CAD (coronary artery disease) Cancer Diabetes Brother CAD (coronary artery disease) Cancer Lung disease Grandfather Cancer Grandmother Diabetes Family/Other Lung disease Suicide Other Hypertension Denies family history of Clotting disorder Anesthesia complication Bleeding disorder Social History Smoking and tobacco status: former smoker Quit status (tobacco): has quit using tobacco Year quit tobacco: 2005 - PPD x 35 Years Former quit date comment: Started at age 18 Second hand smoke exposure: No Smoking risk assessment/counseling performed?: No Alcohol intake: never Desire information about alcohol rehabilitation?: No Counseling given: No Desire information about substance/drug rehabilitation?: No Counseling given: No Adopted: No Caregiver/support person: No Lives independently: Yes Household members: family and children Housing: House Marital status: / Marital status details: 2005 Number of children: 12 Number of grandchildren: 4 Highest education level completed: Master's Degree Education level details: Criminal Justice service: No Current occupational status: disabled Current occupational exposures/hazards: No Pets and animals: Yes Pets & animals: cat(s), dog(s) and farm animals Farm Animals: cattle Leisure activites: reading and other Leisure activities details: watch TV Sexually active: No Current gender identity: Female Yudy/Zoroastrian: Jew [employer] Special yudy needs: No Agree to transfusion: Yes Financial difficulty paying for basics: Somewhat Hard Female Reproductive History: Para: 0 Spontaneous abortions: Yes Physical Exam Const: COMMON NORMALS: patient oriented x3 and alert GENERAL APPEARANCE: cooperative NUTRITIONAL APPEARANCE: cachectic HENMT: COMMON NORMALS: normocephalic HEAD & SCALP: normocephalic MOUTH: Normal oral and palatal mucosa present THROAT: posterior oropharynx normal and uvula midline Neck/C-Spine: COMMON NORMALS: supple GENERAL: Yes normal visual inspection Resp: COMMON NORMALS: normal respiratory effort, No retractions and No use of accessory muscles EFFORT & INSPECTION: No able to speak in complete sentences AUSCULTATION: wheezes expiratory wheezes and throughout and diminished lung sounds bilateral in the lower lung gilliam Cardio: COMMON NORMALS: regular rate, regular rhythm, S1 normal heart sound present, S2 normal heart sound present, No gallops present (Cardio), No clicks present (Cardio), No murmurs present (Cardio) and Peripheral pulses 2+ throughout RATE: regular rate RHYTHM: regular rhythm HEART SOUNDS: S1 normal heart sound present and S2 normal heart sound present PERIPHERAL PULSES: Peripheral pulses 2+ throughout GI: COMMON NORMALS: Normal to inspection, nondistended, normoactive bowel sounds present, Soft to palpation, non-tender and no masses PALPATION: Yes Soft to palpation : COMMON NORMALS: Yes no CVA tenderness BLADDER/KIDNEY EXAM: Yes no CVA tenderness Back/Pelvis: COMMON NORMALS: no CVA tenderness Extremity: COMMON NORMALS: normal to inspection Neuro: COMMON NORMALS: patient oriented x3 SENSORIUM/ORIENTATION: Yes alert GAIT: Yes Normal gait present Skin: GENERAL SKIN EXAM: dry skin Course Vital Signs: Vital signs: Vital Signs Temperature 97.2 F L 09/16/22 16:23 Pulse Rate 104 H 09/16/22 16:23 Respiratory Rate 20 H 09/16/22 16:23 Blood Pressure 214/120 09/16/22 16:23 Pulse Oximetry 94 09/16/22 15:15 Oxygen Delivery Me thod 09/16/22 15:22 Oxygen Flow Rate 4 09/16/22 09:45 Fraction of Inspir ed Oxygen 36 09/16/22 15:15 MDM - SOB/Dyspnea Lab Data 09/16/22 09:07 09/16/22 09:07 Labs/Radiology: Radiology Impressions Chest X-Ray 09/16/22 08:33 Impression: 1. Patchy left lower lobe opacity. 2. Minimal patchy left upper lobe opacity. 3. Atherosclerosis. Laboratory Results WBC 19.8 10^3/uL (4.0-10.0) H 09/16/22 09:07 RBC 3.07 10^6/uL (4.1-5.3) L 09/16/22 09:07 Hgb 9.5 g/dL (11.5-15.3) L 09/16/22 09:07 Hct 33.0 % (37.0-47.0) L 09/16/22 09:07 MCV 107.5 fl (81-99) H 09/16/22 09:07 MCH 30.9 pg (28.0-34.0) 09/16/22 09:07 MCHC 28.8 g/dL (30.0-36.0) L 09/16/22 09:07 RDW 19.5 % (12.1-15.1) H 09/16/22 09:07 Plt Count 279 10^3/cmm (130-400) 09/16/22 09:07 MPV 9.9 fL (7.4-10.4) 09/16/22 09:07 Neut % (Auto) 50.4 % 09/16/22 09:07 Lymph % (Auto) 43.0 % 09/16/22 09:07 [place] % (Auto) 5.5 % 09/16/22 09:07 Eos % (Auto) 0.0 % 09/16/22 09:07 Baso % (Auto) 0.2 % 09/16/22 09:07 Neut # (Auto) 9.98 10^3/uL (1.8-7.7) H 09/16/22 09:07 Lymph # (Auto) 8.5 10^3/uL (0.8-4.8) H 09/16/22 09:07 [place] # (Auto) 1.1 10^3/uL (0.2-0.9) H 09/16/22 09:07 Eos # (Auto) 0.0 10^3/uL (0.0-0.8) 09/16/22 09:07 Baso # (Auto) 0.0 10^3/uL (0.0-0.1) 09/16/22 09:07 Nucleated RBC % (auto) 0 % 09/16/22 09:07 Nucleated RBCs # 0.0 /100WBC 09/16/22 09:07 Specimen Type Arterial 09/16/22 10:41 Sample Site Brachial, left 09/16/22 10:41 ABG pH 7.32 (7.35-7.45) L 09/16/22 10:41 ABG pCO2 51.6 mmHg (35-45) H 09/16/22 10:41 ABG pO2 65.4 mmHg (80.0-100.0) L 09/16/22 10:41 ABG HCO3 26.3 mmol/L (22-26) H 09/16/22 10:41 ABG O2 Saturation 91.5 09/16/22 10:41 ABG Base Excess -0.2 mmol/L (-2.0-2.0) 09/16/22 10:41 Roly Test Pos 09/16/22 10:41 A-a O2 Gradient 13.1 mmHg (5-10) H 09/16/22 10:41 Hematocrit 28.2 % (37-47) L 09/16/22 10:41 Hgb O2 Saturation 88.9 % (95-100) L 09/16/22 10:41 Carboxyhemoglobin 1.3 %THgb (0.4-20.1) 09/16/22 10:41 Methemoglobin 1.5 % (0.4-1.5) 09/16/22 10:41 Total Hemoglobin 9.2 g/dL (12-16) L 09/16/22 10:41 Sodium 138.0 mmol/L (131-143) 09/16/22 10:41 Potassium 6.0 mmol/L (3.5-5.0) H 09/16/22 10:41 Glucose 85.0 mg/dL (70-115) 09/16/22 10:41 Ionized Calcium 1.3 mmol/L (1.1-1.4) 09/16/22 10:41 O2 Delivery Device Bipap 09/16/22 10:41 FiO2 32.0 % 09/16/22 10:41 Restaurant Management Internship ID Monro 09/16/22 10:41 Sodium 138 mmol/L (136-145) 09/16/22 09:07 Potassium 6.1 mmol/L (3.5-5.1) H 09/16/22 09:07 Chloride 102 mmol/L (98-107) 09/16/22 09:07 Carbon Dioxide 26 mmol/L (22-29) 09/16/22 09:07 Anion Gap 16.1 (5-19) 09/16/22 09:07 BUN 59 mg/dL (8-23) H 09/16/22 09:07 Creatinine 4.9 mg/dL (0.5-0.9) H 09/16/22 09:07 GFR Calculation 8.9 mL/min (90-130) L 09/16/22 09:07 Glucose 115 mg/dL (65-115) 09/16/22 09:07 Calculated Osmolality 303 mOsm/kg (285-295) H 09/16/22 09:07 Calcium 9.4 mg/dL (8.5-10.5) 09/16/22 09:07 Total Bilirubin 0.3 mg/dL (0.15-1.2) 09/16/22 09:07 AST 35 U/L (0-32) H 09/16/22 09:07 ALT 19 U/L (0-33) 09/16/22 09:07 Alkaline Phosphatase 110 U/L (35-105) H 09/16/22 09:07 Troponin T Baseline 340 ng/L (0-10) H* 09/16/22 09:07 Troponin T 120 Minute 343.6 ng/L (0-10) H 09/16/22 11:17 Delta Troponin T 3.6 ABS# (0-10) 09/16/22 11:17 NT-Pro-B Natriuret Pep > 63291 pg/mL (0-125) H 09/16/22 09:07 Total Protein 6.2 g/dL (6.6-8.7) L 09/16/22 09:07 Albumin 3.7 g/dL (3.5-5.2) 09/16/22 09:07 Globulin 2.5 g/dL (1.3-4.6) 09/16/22 09:07 Coronavirus 229E (PCR) Not detected (NOT DETECT) 09/16/22 09:07 Influenza Type A Ag negative (Negative) 09/16/22 09:07 Influenza Type B Ag negative (Negative) 09/16/22 09:07 SARS-CoV-2 (PCR) Not detected (NOT DETECT) 09/16/22 09:07 Discharge Plan Discharge Patient Disposition: Admitted As Inpatient Admit Provider: Eyal Porras Clinical Impression: Acute and chronic respiratory failure with hypercapnia, COPD (chronic obstructive pulmonary disease), Hypertension, Pneumonia, End stage renal 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, Acute hyperkalemia Condition: Stable Coding Level of Care Code ED Library Technical Assistant for Chg Fwd Documented by User: Bertt Herman DO 09/16/22 13:59 HPI - SOB/Dyspnea General: Chief Complaint: ER Hold Stated Complaint: SOB/ COPD Time Seen by Provider: 09/16/22 08:35 PFSH ED PFSH: Medical History AAA (abdominal aortic aneurysm) 4.1 x 4.4 x 5.7 cm 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 Anemia Atypical chest pain Brain aneurysm Chest pain Chest pain Chronic kidney disease CKD stage III, solitary kidney Chronic migraine without aura, intractable, with status migrainosus Congestive heart failure COPD (chronic obstructive pulmonary disease) COPD with acute exacerbation Depression Elevated troponin End-stage renal disease needing dialysis Endoleak post (EVAR) endovascular aneurysm repair GERD (gastroesophageal reflux disease) History of stent insertion of renal artery Hypercholesteremia Hypertension Hypertensive urgency Resolved Hyponatremia Hypothyroidism Inguinal swelling Major depressive disorder, recurrent severe without psychotic features Malnourished Normal colonoscopy NSTEMI (non-ST elevated myocardial infarction) Osteoporosis Peripheral vascular disease Protein-energy malnutrition Psychiatric care Restless leg Solitary kidney Surgical History H/O: hysterectomy History of renal stent Herculink stent History of repair of aneurysm of abdominal aorta using endovascular stent graft Hx of tonsillectomy S/P appendectomy Status post endovascular aneurysm repair (EVAR) Family History Mother CAD (coronary artery disease) Chronic kidney disease (CKD) Dementia Stroke Father CAD (coronary artery disease) Cancer Diabetes Brother CAD (coronary artery disease) Cancer Lung disease Grandfather Cancer Grandmother Diabetes Family/Other Lung disease Suicide Other Hypertension Denies family history of Clotting disorder Anesthesia complication Bleeding disorder Social History Smoking and tobacco status: former smoker Quit status (tobacco): has quit using tobacco Year quit tobacco: 2005 - PPD x 35 Years Former quit date comment: Started at age 18 Second hand smoke exposure: No Smoking risk assessment/counseling performed?: No Alcohol intake: never Desire information about alcohol rehabilitation?: No Counseling given: No Desire information about substance/drug rehabilitation?: No Counseling given: No Adopted: No Caregiver/support person: No Lives independently: Yes Household members: family and children Housing: House Marital status: / Marital status details: 2005 Number of children: 12 Number of grandchildren: 4 Highest education level completed: Master's Degree Education level details: Criminal Justice service: No Current occupational status: disabled Current occupational exposures/hazards: No Pets and animals: Yes Pets & animals: cat(s), dog(s) and farm animals Farm Animals: cattle Leisure activites: reading and other Leisure activities details: watch TV Sexually active: No Current gender identity: Female Yudy/Zoroastrian: Jew [employer] Special yudy needs: No Agree to transfusion: Yes Financial difficulty paying for basics: Somewhat Hard Course Vital Signs: Vital signs: Vital Signs Temperature 97.2 F L 09/16/22 16:23 Pulse Rate 104 H 09/16/22 16:23 Respiratory Rate 20 H 09/16/22 16:23 Blood Pressure 214/120 09/16/22 16:23 Pulse Oximetry 94 09/16/22 15:15 Oxygen Delivery Me thod 09/16/22 15:22 Oxygen Flow Rate 4 09/16/22 09:45 Fraction of Inspir ed Oxygen 36 09/16/22 15:15 MDM - SOB/Dyspnea Medical Decision Making Patient had acute hypercapnic respiratory failure with pneumonia. In addition that she is hyperkalemic and in end-stage renal disease given calcium chloride here of discussed Dr. Porras antibiotics written will admit to the ICU nephrology consulted for dialysis today. Medical Records I reviewed the patient's medical records. Lab Data I reviewed the patient's lab results. 09/16/22 09:07 09/16/22 09:07 Labs/Radiology: Radiology Impressions Chest X-Ray 09/16/22 08:33 Impression: 1. Patchy left lower lobe opacity. 2. Minimal patchy left upper lobe opacity. 3. Atherosclerosis. Laboratory Results WBC 19.8 10^3/uL (4.0-10.0) H 09/16/22 09:07 RBC 3.07 10^6/uL (4.1-5.3) L 09/16/22 09:07 Hgb 9.5 g/dL (11.5-15.3) L 09/16/22 09:07 Hct 33.0 % (37.0-47.0) L 09/16/22 09:07 MCV 107.5 fl (81-99) H 09/16/22 09:07 MCH 30.9 pg (28.0-34.0) 09/16/22 09:07 MCHC 28.8 g/dL (30.0-36.0) L 09/16/22 09:07 RDW 19.5 % (12.1-15.1) H 09/16/22 09:07 Plt Count 279 10^3/cmm (130-400) 09/16/22 09:07 MPV 9.9 fL (7.4-10.4) 09/16/22 09:07 Neut % (Auto) 50.4 % 09/16/22 09:07 Lymph % (Auto) 43.0 % 09/16/22 09:07 [place] % (Auto) 5.5 % 09/16/22 09:07 Eos % (Auto) 0.0 % 09/16/22 09:07 Baso % (Auto) 0.2 % 09/16/22 09:07 Neut # (Auto) 9.98 10^3/uL (1.8-7.7) H 09/16/22 09:07 Lymph # (Auto) 8.5 10^3/uL (0.8-4.8) H 09/16/22 09:07 [place] # (Auto) 1.1 10^3/uL (0.2-0.9) H 09/16/22 09:07 Eos # (Auto) 0.0 10^3/uL (0.0-0.8) 09/16/22 09:07 Baso # (Auto) 0.0 10^3/uL (0.0-0.1) 09/16/22 09:07 Nucleated RBC % (auto) 0 % 09/16/22 09:07 Nucleated RBCs # 0.0 /100WBC 09/16/22 09:07 Specimen Type Arterial 09/16/22 10:41 Sample Site Brachial, left 09/16/22 10:41 ABG pH 7.32 (7.35-7.45) L 09/16/22 10:41 ABG pCO2 51.6 mmHg (35-45) H 09/16/22 10:41 ABG pO2 65.4 mmHg (80.0-100.0) L 09/16/22 10:41 ABG HCO3 26.3 mmol/L (22-26) H 09/16/22 10:41 ABG O2 Saturation 91.5 09/16/22 10:41 ABG Base Excess -0.2 mmol/L (-2.0-2.0) 09/16/22 10:41 Roly Test Pos 09/16/22 10:41 A-a O2 Gradient 13.1 mmHg (5-10) H 09/16/22 10:41 Hematocrit 28.2 % (37-47) L 09/16/22 10:41 Hgb O2 Saturation 88.9 % (95-100) L 09/16/22 10:41 Carboxyhemoglobin 1.3 %THgb (0.4-20.1) 09/16/22 10:41 Methemoglobin 1.5 % (0.4-1.5) 09/16/22 10:41 Total Hemoglobin 9.2 g/dL (12-16) L 09/16/22 10:41 Sodium 138.0 mmol/L (131-143) 09/16/22 10:41 Potassium 6.0 mmol/L (3.5-5.0) H 09/16/22 10:41 Glucose 85.0 mg/dL (70-115) 09/16/22 10:41 Ionized Calcium 1.3 mmol/L (1.1-1.4) 09/16/22 10:41 O2 Delivery Device Bipap 09/16/22 10:41 FiO2 32.0 % 09/16/22 10:41 Restaurant Management Internship ID Neli 09/16/22 10:41 Sodium 138 mmol/L (136-145) 09/16/22 09:07 Potassium 6.1 mmol/L (3.5-5.1) H 09/16/22 09:07 Chloride 102 mmol/L (98-107) 09/16/22 09:07 Carbon Dioxide 26 mmol/L (22-29) 09/16/22 09:07 Anion Gap 16.1 (5-19) 09/16/22 09:07 BUN 59 mg/dL (8-23) H 09/16/22 09:07 Creatinine 4.9 mg/dL (0.5-0.9) H 09/16/22 09:07 GFR Calculation 8.9 mL/min (90-130) L 09/16/22 09:07 Glucose 115 mg/dL (65-115) 09/16/22 09:07 Calculated Osmolality 303 mOsm/kg (285-295) H 09/16/22 09:07 Calcium 9.4 mg/dL (8.5-10.5) 09/16/22 09:07 Total Bilirubin 0.3 mg/dL (0.15-1.2) 09/16/22 09:07 AST 35 U/L (0-32) H 09/16/22 09:07 ALT 19 U/L (0-33) 09/16/22 09:07 Alkaline Phosphatase 110 U/L (35-105) H 09/16/22 09:07 Troponin T Baseline 340 ng/L (0-10) H* 09/16/22 09:07 Troponin T 120 Minute 343.6 ng/L (0-10) H 09/16/22 11:17 Delta Troponin T 3.6 ABS# (0-10) 09/16/22 11:17 NT-Pro-B Natriuret Pep > 89377 pg/mL (0-125) H 09/16/22 09:07 Total Protein 6.2 g/dL (6.6-8.7) L 09/16/22 09:07 Albumin 3.7 g/dL (3.5-5.2) 09/16/22 09:07 Globulin 2.5 g/dL (1.3-4.6) 09/16/22 09:07 Coronavirus 229E (PCR) Not detected (NOT DETECT) 09/16/22 09:07 Influenza Type A Ag negative (Negative) 09/16/22 09:07 Influenza Type B Ag negative (Negative) 09/16/22 09:07 SARS-CoV-2 (PCR) Not detected (NOT DETECT) 09/16/22 09:07 Discharge Plan Discharge Patient Disposition: Admitted As Inpatient Admit Provider: Eyal Porras Clinical Impression: Acute and chronic respiratory failure with hypercapnia, COPD (chronic obstructive pulmonary disease), Hypertension, Pneumonia, End stage renal 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, Acute hyperkalemia Condition: Stable Coding Level of Care Code ED Library Technical Assistant for Leann Crowley
[2022-09-16] MEDS: ipratropium-albuterol 3 mL Neb 6 ML INHALATION (09:03)
[2022-09-16] MEDS: aspirin 81 mg Chew Tablet 243 MG PO (09:22)
[2022-09-16 09:28] LABS: Basophils % 0.2 %; Hemoglobin 9.5 g/dL (11.5-15.3); Lymphocytes # 8.5 10^3/uL (0.8-4.8); Mean Corpuscular HGB Conc 28.8 g/dL (30.0-36.0); Mean Corpuscular Hemoglobin 30.9 pg (28.0-34.0); Mean Corpuscular Volume 107.5 fl (81-99); Mean Platelet Volume 9.9 fL (7.4-10.4); Monocytes # 1.1 10^3/uL (0.2-0.9); Monocytes % 5.5 %; Neutrophils # 9.98 10^3/uL (1.8-7.7); Neutrophils % 50.4 %; Nucleated Red Blood Cells % 0 %; Platelet Count 279 10^3/cmm (130-400); Red Blood Count 3.07 10^6/uL (4.1-5.3); Red Cell Distribution Width 19.5 % (12.1-15.1); White Blood Count 19.8 10^3/uL (4.0-10.0)
[2022-09-16 09:55] LABS: Slide Review Slide Review Perform
[2022-09-16 09:58] LABS: Influenza A by IFA negative (Negative); Influenza B by IFA negative (Negative)
[2022-09-16 10:02] LABS: Alanine Aminotransferase 19 U/L (0-33); Albumin Level 3.7 g/dL (3.5-5.2); Alkaline Phosphatase 110 U/L (35-105); Aspartate Amino Transferase 35 U/L (0-32); Blood Urea Nitrogen 59 mg/dL (8-23); Calcium 9.4 mg/dL (8.5-10.5); Carbon Dioxide 26 mmol/L (22-29); Chloride 102 mmol/L (98-107); Globulin 2.5 g/dL (1.3-4.6); Glomerular Filtration Rate 8.9 mL/min (90-130); Glucose 115 mg/dL (65-115); Osmolality Calculated 303 mOsm/kg (285-295); Sodium 138 mmol/L (136-145); Total Bilirubin 0.3 mg/dL (0.15-1.2); Total Protein 6.2 g/dL (6.6-8.7)
[2022-09-16 10:04] LABS: Anion Gap 16.1 (5-19); Potassium 6.1 mmol/L (3.5-5.1)
--- NOTE | 2022-09-16 10:04 | PC.NURSE ---
PT PLACED ON CONTINUOUS NIBP,SPO2, AND CM
[2022-09-16 10:06] LABS: Troponin(5th) Baseline 340 ng/L (0-10)
--- NOTE | 2022-09-16 10:34 | ECG_ITS ---
[facility] Test Date: 2022-09-16 Pat Name: Hali James Department: Room: Gender: Female Roller Pneumatic: : 1955 Requested By: Martín Briggs Order Number: [id number] Wil MD: Guillermo Culver M.D. Measurements Intervals [place] Rate: 92 P: 83 DC: 132 QRS: 82 QRSD: 86 T: 73 QT: 378 QTc: 468 Interpretive Statements SINUS RHYTHM WARNING: DATA QUALITY MAY AFFECT INTERPRETATION Compared to ECG 09/16/2022 08:44:50 No significant changes Electronically Signed On 09-16-2022 23:52:07 [employer] MANAGER by Guillermo Culver M.D. [id number]
[2022-09-16 10:42] LABS: NT Pro B Type Natriuretic Pept > 70000 pg/mL (0-125)
[2022-09-16] MEDS: ipratropium-albuterol 3 mL Neb INHALATION ×4 (10:44→20:08)
[2022-09-16 10:53] LABS: ABG PCO2 51.6 mmHg (35-45); ABG PH Result 7.32 (7.35-7.45); Alveolar-Arterial Oxygen Gradi 13.1 mmHg (5-10); Arterial Blood Gas Hematocrit 28.2 % (37-47); Base Excess ABG -0.2 mmol/L (-2.0-2.0); Blood Gas Allen Test Pos; Blood Gas Operator Identificat MONRO; Blood Gas Sample Site Brachial, left; Blood Gas Sample Type Arterial; Carboxyhemoglobin 1.3 %THgb (0.4-20.1); HCO3 ABG 26.3 mmol/L (22-26); HGB O2 Sat 88.9 % (95-100); Ionized Calcium Level - ABG 1.3 mmol/L (1.1-1.4); Methemoglobin 1.5 % (0.4-1.5); Oxygen Device BIPAP; Oxygen Saturation ABG 91.5; PO2 ABG 65.4 mmHg (80.0-100.0); Total Hemoglobin 9.2 g/dL (12-16)
[2022-09-16 11:21] LABS: Adenovirus Not Detected (NOT DETECT); Chlamydia Pneumoniae Not Detected (NOT DETECT); Coronavirus 229E,HKU1,NL63,OC4 Not Detected (NOT DETECT); Human Metapneumovirus Not Detected (NOT DETECT); Human Rhinovirus/Enterovirus Not Detected (NOT DETECT); Influenza A Not Detected (NOT DETECT); Influenza A H1 Not Detected (NOT DETECT); Influenza A H1-2009 Not Detected (NOT DETECT); Influenza A H3 Not Detected (NOT DETECT); Influenza B Not Detected (NOT DETECT); Mycoplasma Pneumoniae Not Detected (NOT DETECT); Parainfluenza Virus Type 1 Not Detected (NOT DETECT); Parainfluenza Virus Type 2 Not Detected (NOT DETECT); Parainfluenza Virus Type 3 Not Detected (NOT DETECT); Parainfluenza Virus Type 4 Not Detected (NOT DETECT); Respiratory Syncytial Virus A Not Detected (NOT DETECT); Respiratory Syncytial Virus B Not Detected (NOT DETECT); SARS-COV-2 Not Detected (NOT DETECT)
--- NOTE | 2022-09-16 11:30 | PC.NURSE ---
ANTIBIOTIC DELAYED DUE TO DELAYED BLOOD CULTURE ORDER
--- NOTE | 2022-09-16 11:33 | PC.NURSE ---
PT PLACED ON BIPAP BY RESPIRATORY PER VERBAL ORDER FROM DR. DANIELSON
--- NOTE | 2022-09-16 11:37 | PC.PHAR ---
pts daughter stephen verified pts medications from the pts med [phone] or [phone] states the pt restarted taking the clarithromycin 500mg bid last filled 06/14/22 14d/s-states the pt hasnt started using the clonidine 0.1mg patch weekly rx filled 09/14/22 states the pt was taking the 0.1mg bid but did not take today-pts daughter states the pt takes imdur mono er 60mg daily daughter states rx bottle dated 07/21/22 ext med history shows last filled 60mg bid filled 08/29/22 30d/s-notes are made in the pharmacy comments
[2022-09-16] MEDS: calcium chloride 10% Syr 10 mL 1 GM IVP (11:43)
[2022-09-16] MEDS: levofloxacin-dextrose 5 % 750 MG/150 ML PREMIX 100 MG IV (11:43)
[2022-09-16 11:57] LABS: Troponin 5 2HR Delta 3.6 ABS# (0-10)
[2022-09-16 11:59] LABS: Troponin 5 2HR 343.6 ng/L (0-10)
--- NOTE | 2022-09-16 14:34 | ECG_ITS ---
[facility] Test Date: 2022-09-16 Pat Name: Hali James Department: Room: ICU11 Gender: Female Spike Maker: : 1955 Requested By: Martín Briggs Order Number: [id number] Wil MD: Guillermo Culver M.D. Measurements Intervals [place] Rate: 106 P: 81 [place]: 100 QRS: 84 QRSD: 93 T: 68 QT: 340 QTc: 453 Interpretive Statements SINUS TACHYCARDIA WITH SHORT [place] INTERVAL ABNORMAL RHYTHM ECG Compared to ECG 09/16/2022 11:06:11 Short [place] interval now present Sinus rhythm no longer present Electronically Signed On 09-16-2022 23:54:15 ESCROW AGENT by Guillermo Culver M.D. [id number]
--- NOTE | 2022-09-16 14:39 | P.HP_ITS ---
Providers/Chief Complaint Admitting Physician: Eyal Porras MD Primary Care Provider: HERBERT Masters Chief Complaint: SOB/ COPD History of Present Illness Hali James is a 67 year old female presenting with shortness of breath over the last 3 days. She denies any fevers. She has been coughing some. She states she gets dialysis regularly, on a Tuesday regimen and last had it on Tuesday. She denies any vomiting. History is somewhat difficult as she is currently on BiPAP. In the emergency department when she arrived she was noted to be significantly short of breath. BiPAP was initiated. Blood cultures were drawn. She received some IV antibiotics in the form of Levaquin and some breathing treatments. She received some calcium for her markedly elevated potassium. Review of Systems General: Reports: 10 or more systems reviewed and unremarkable except in HPI and below Const: Reports: malaise; Denies: fever(s) or chills Card: Denies: chest pain Resp: Reports: dyspnea and non-productive cough GI: Denies: hematochezia or melena Medications/Allergies Home Medications Medication Instructions Recorded Confirmed Last Taken Type fluticasone propionate 50 2 spray intranasal DAILY PRN 02/21/20 09/16/22 08/20/22 History mcg/actuation nasal Allergy Symptoms spray,suspension (Flonase Allergy Relief) albuterol sulfate 2.5 mg/3 mL 2.5 mg (3 mL) inhalation QID PRN 05/15/20 09/16/22 09/07/22 Rx (0.083 %) solution for nebulization Shortness Of Breath 30 days #75 mL epinephrine 0.3 mg/0.3 mL 0.3 mg IM Q10M PRN Allergic 10/16/20 09/16/22 Unknown History injection, auto-injector Reaction albuterol sulfate 90 mcg/actuation 2 puff inhalation 6XD PRN 04/05/22 09/16/22 08/20/22 Rx aerosol inhaler Shortness Of Breath #6.7 grams metoprolol succinate 50 mg 50 mg PO BID@0830,2100 30 days #60 04/05/22 09/16/22 09/07/22 Rx tablet,extended release 24 hr tabs montelukast 10 mg tablet 10 mg PO DAILY@0830 #30 tabs 04/05/22 09/16/22 09/07/22 Rx nitroglycerin 0.4 mg sublingual 0.4 mg sublingual Q5M PRN Chest 04/05/22 09/16/22 06/12/22 Rx tablet (Nitrostat) Pain 30 days #30 tabs omeprazole 20 mg capsule,delayed 20 mg PO DAILY@0830 30 days #30 04/05/22 09/16/22 09/07/22 Rx release caps sevelamer carbonate 0.8 gram oral 0.4 g PO TID 06/12/22 09/16/22 09/07/22 History powder packet ondansetron 8 mg disintegrating 8 mg PO Q8H PRN nausea and 06/16/22 09/16/22 Unknown Rx tablet vomiting #90 tabs budesonide 0.5 mg/2 mL suspension 0.5 mg (2 mL) inhalation BID #120 06/21/22 09/16/22 09/07/22 Rx for nebulization (Pulmicort) mL formoterol fumarate 20 mcg/2 mL 2 ml inhalation Q12H #120 mL 06/21/22 09/16/22 09/07/22 Rx solution for nebulization (Perforomist) buspirone 5 mg tablet 5 mg PO TID #90 tabs 07/01/22 09/16/22 09/07/22 Rx citalopram 40 mg tablet 40 mg PO DAILY@0830 30 days #30 07/01/22 09/16/22 09/07/22 Rx tabs azithromycin 250 mg tablet 250 mg PO .COMPLEX COPD 90 days 07/06/22 09/16/22 08/20/22 Rx #45 tabs aspirin 81 mg tablet,delayed 81 mg PO DAILY@0830 30 days #30 08/18/22 09/16/22 09/07/22 Rx release tabs hydroxyzine HCl 50 mg tablet 50 mg PO QID PRN Anxiety 08/21/22 09/16/22 08/20/22 History ropinirole 1 mg tablet 1 mg PO BEDTIME 08/21/22 09/16/22 09/07/22 History polyethylene glycol 3350 17 gram 17 g PO DAILY PRN constipation #30 08/25/22 09/16/22 Unknown Rx oral powder packet ea bumetanide 0.5 mg tablet 0.5 mg PO DAILY 09/08/22 09/16/22 09/07/22 History hydrocodone 5 mg-acetaminophen 325 1 tab PO BID PRN pain #10 tabs 09/08/22 09/16/22 Unknown Rx mg tablet vit B,C-folic ac 800 mcg-zinc 12.5 1 tab PO QPM 09/08/22 09/16/22 09/07/22 History mg-selen-D3 2,000 unit-vit E tablet (RenaPlex-D) prednisone 20 mg tablet 20 mg PO BID #10 tabs 09/10/22 09/16/22 09/14/22 Rx finished 09/14/22 losartan 50 mg tablet 100 mg PO DAILY 09/13/22 09/16/22 Unknown History atorvastatin 40 mg tablet 40 mg PO QAM 09/16/22 09/16/22 Unknown History clarithromycin 500 mg tablet 500 mg PO BID 09/16/22 09/16/22 Unknown History clonidine 0.1 mg/24 hr weekly 1 patch topical Q7D 09/16/22 09/16/22 Unknown History transdermal patch isosorbide mononitrate 60 mg 60 mg PO DAILY@0830 09/16/22 09/16/22 Unknown History tablet,extended release 24 hr levothyroxine 50 mcg tablet 50 mcg PO QAM 09/16/22 09/16/22 Unknown History revefenacin 175 mcg/3 mL solution 175 mcg inhalation QAM 09/16/22 09/16/22 Unknown History for nebulization Allergies Allergy/AdvReac Type Severity Reaction Status Date / Time lisinopril Allergy Severe anaphylaxis Verified 09/16/22 11:15 Sulfa (Sulfonamide AdvReac Intermediate Itching, Verified 09/16/22 11:15 Antibiotics) burning PFSH Acute PFSH: Medical History AAA (abdominal aortic aneurysm) 4.1 x 4.4 x 5.7 cm 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 Anemia Atypical chest pain Brain aneurysm Chest pain Chest pain Chronic kidney disease CKD stage III, solitary kidney Chronic migraine without aura, intractable, with status migrainosus Congestive heart failure COPD (chronic obstructive pulmonary disease) COPD with acute exacerbation Depression Elevated troponin End-stage renal disease needing dialysis Endoleak post (EVAR) endovascular aneurysm repair GERD (gastroesophageal reflux disease) History of stent insertion of renal artery Hypercholesteremia Hypertension Hypertensive urgency Resolved Hyponatremia Hypothyroidism Inguinal swelling Major depressive disorder, recurrent severe without psychotic features Malnourished Normal colonoscopy NSTEMI (non-ST elevated myocardial infarction) Osteoporosis Peripheral vascular disease Protein-energy malnutrition Psychiatric care Restless leg Solitary kidney Surgical History H/O: hysterectomy History of renal stent Herculink stent History of repair of aneurysm of abdominal aorta using endovascular stent graft Hx of tonsillectomy S/P appendectomy Status post endovascular aneurysm repair (EVAR) Family History Mother CAD (coronary artery disease) Chronic kidney disease (CKD) Dementia Stroke Father CAD (coronary artery disease) Cancer Diabetes Brother CAD (coronary artery disease) Cancer Lung disease Grandfather Cancer Grandmother Diabetes Family/Other Lung disease Suicide Other Hypertension Denies family history of Clotting disorder Anesthesia complication Bleeding disorder Social History Smoking and tobacco status: former smoker Quit status (tobacco): has quit using tobacco Year quit tobacco: 2005 - PPD x 35 Years Former quit date comment: Started at age 18 Second hand smoke exposure: No Smoking risk assessment/counseling performed?: No Alcohol intake: never Desire information about alcohol rehabilitation?: No Counseling given: No Desire information about substance/drug rehabilitation?: No Counseling given: No Adopted: No Caregiver/support person: No Lives independently: Yes Household members: family and children Housing: House Marital status: / Marital status details: 2005 Number of children: 12 Number of grandchildren: 4 Highest education level completed: Master's Degree Education level details: Criminal Justice service: No Current occupational status: disabled Current occupational exposures/hazards: No Pets and animals: Yes Pets & animals: cat(s), dog(s) and farm animals Farm Animals: cattle Leisure activites: reading and other Leisure activities details: watch TV Sexually active: No Current gender identity: Female Yudy/Christian: [employer] Special yudy needs: No Agree to transfusion: Yes Financial difficulty paying for basics: Somewhat Hard Female Reproductive History: Para: 0 Spontaneous abortions: Yes Vitals/I&O/Wt Last Vital Signs Temp 97.3 F L 09/16/22 09:03 Pulse 105 H 09/16/22 14:37 Resp 24 H 09/16/22 10:45 BP 171/103 09/16/22 10:30 Pulse Ox 95 09/16/22 14:37 O2 Del Method 09/16/22 10:45 O2 Flow Rate 4 09/16/22 09:45 FiO2 36 09/16/22 14:37 09/15/22 09/16/22 09/16/22 22:59 06:59 14:59 Intake Total 150 / 150 Balance 150 / 150 Weight last 48 hrs Weight 33.112 kg Physical Exam Narrative: General exam is a thin appearing white female currently on BiPAP with mild to moderate respiratory distress HEENT: Atraumatic and normocephalic. Oropharynx not examined as she is on BiPAP Neck is supple no lymphadenopathy thyromegaly Cardiovascular regular rate and rhythm without murmur. Dialysis line noted right chest Lungs clear but with diminished breath sounds bilaterally. Abdomen is soft nontender positive bowel sounds exam was deferred Extremities no cyanosis clubbing or edema, cap refill brisk Skin no rash Neuro no obvious focal deficits. Data 09/16/22 09:07 09/16/22 09:07 Other Labs: ABG demonstrates a pH 7.32, PCO2 of 52, PO2 of 65 on 32% FiO2 by BiPAP. LFTs demonstrate an AST of 35 and alk phos of 110, otherwise normal Troponin is 340 with repeat of 343 BNP greater than 70,000 Coronavirus and influenza not detected Chest x-ray shows left lower lobe infiltrate, atherosclerosis, dialysis tunneled catheter on the right by my read EKG demonstrates normal sinus rhythm, normal axis, nonspecific ST-T wave changes by my read Micro: Microbiology 09/16/22 11:30 Blood Culture - Preliminary Blood SPECIMEN COLLECTED 09/16/22 11:35 Blood Culture - Preliminary Blood SPECIMEN COLLECTED A&P Assessment and plan (1) Acute and chronic respiratory failure with hypercapnia: Likely secondary to pneumonia. Cannot rule out some pulmonary edema. Last hospitalization she did have a non-ST elevation myocardial infarction. She was not deemed to be a candidate for angiogram. Continue BiPAP, wean BiPAP as tolerated (2) Pneumonia: Patient has evidence of pneumonia on chest x-ray, left lower lobe Initiate Rocephin, azithromycin Sputum culture Blood culture Wean oxygen as tolerated (3) Acute hyperkalemia: Patient presented with acute hyperkalemia She received calcium in the emergency department She received frequent nebs in the emergency department Insulin and glucose was contemplated but as dialysis will be occurring fairly emergently I do not think this is needed at this point (4) End stage renal 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: Nephrology consultation for hemodialysis (5) COPD (chronic obstructive pulmonary disease): Budesonide Nebs every 6 hours She received a dose of steroid in the emergency department. I do not hear any wheezing currently. Continue her prednisone she is already taking 20 mg twice daily Plan Multiple other medical problems as outlined in past medical history Full code Heparin subcu for DVT prophylaxis Attestations Medical Necessity Statement*: Will require greater than 2 midnight stay for ev aluation and treatment of acute respiratory failure, hyperkalemia, pneumonia Coding Level of Care Code Critical Care >/= 30 minutes Diagnoses Acute and chronic respiratory failure with hypercapnia J96.22 Pneumonia J18.9 Acute hyperkalemia E87.5 End stage renal 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 N18.6; Z99.2 COPD (chronic obstructive pulmonary disease) J44.9 Time Spent (min) 67 High MDM includes number and complexity of problems actively addressed during encounter and amount and/or complexity of data reviewed/ordered as documented
[2022-09-16] MEDS: LORazepam 2 mg/mL INJ 1 mL 0.5 MG IVP (14:42)
--- NOTE | 2022-09-16 14:50 | PC.NURSE ---
To ICU at 1430 via stretcher. Patient AAOx4, no pain, BP 214/120, HR 105, SPO2 96% Bipap 36%, RR 28. Patient very anxious and given Ativan IVP 0.5 mg once.
[2022-09-16 16:19] LABS: Troponin 5 6HR 298.6 ng/L (0-10)
--- NOTE | 2022-09-16 16:26 | PC.HD ---
Initial verbal orders from nephrologst was for removal of 3000 mL. Prior to treatment initiation, patient had SBP >200. Upon dialysis initiation, patient's BP immediately dropped, and within 30 minutes it was 87/73. Patient was given 100 mL bolus of NSS, fluid removal was turned off, and primary RN initiated levophed drip. BP stabilized after primary RN increased the levophed drip. Per staff consultant, UF goal lowered from 3000 to 1500mL. UF goal on machine was changed to 1900 (1500 fluid removal +300 prime + 100 NSS bolus). UF rate is currently 600 mL/hour. BP will continue to be closely monitored and UF goal will be adjusted/NSS boluses will be administered as indicated.
--- NOTE | 2022-09-16 16:53 | PM.CONSULT ---
Providers/Reason For Consult Consulting Physician/Specialty*: [facility]/Nephrology Reason for Consult*: ESRD Attending Physician: Eyal Porras MD Primary Care Provider: HERBERT Masters History of Present Illness History of Present Illness Hali James is a 67 year old female with past medical history of end-stage renal 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, COPD, history of AAA with repair dyslipidemia hypothyroidism presented to the emergency department complaining of shortness of breath. Patient on TTS schedule and last dialysis was on Tuesday. Patient was placed on BiPAP in the ED. Chest x-ray concerning for possible pneumonia. End-stage renal disease: On TTS schedule as outpatient, hemodialysis today and blood pressures are borderline low, will give albumin to help with ultrafiltration. Review of Systems Narrative: Other review of systems negative Medications/Allergies Home Medications Medication Instructions Recorded Confirmed Last Taken Type fluticasone propionate 50 2 spray intranasal DAILY PRN 02/21/20 09/16/22 08/20/22 History mcg/actuation nasal Allergy Symptoms spray,suspension (Flonase Allergy Relief) albuterol sulfate 2.5 mg/3 mL 2.5 mg (3 mL) inhalation QID PRN 05/15/20 09/16/22 09/07/22 Rx (0.083 %) solution for nebulization Shortness Of Breath 30 days #75 mL epinephrine 0.3 mg/0.3 mL 0.3 mg IM Q10M PRN Allergic 10/16/20 09/16/22 Unknown History injection, auto-injector Reaction albuterol sulfate 90 mcg/actuation 2 puff inhalation 6XD PRN 04/05/22 09/16/22 08/20/22 Rx aerosol inhaler Shortness Of Breath #6.7 grams metoprolol succinate 50 mg 50 mg PO BID@0830,2100 30 days #60 04/05/22 09/16/22 09/07/22 Rx tablet,extended release 24 hr tabs montelukast 10 mg tablet 10 mg PO DAILY@0830 #30 tabs 04/05/22 09/16/22 09/07/22 Rx nitroglycerin 0.4 mg sublingual 0.4 mg sublingual Q5M PRN Chest 04/05/22 09/16/22 06/12/22 Rx tablet (Nitrostat) Pain 30 days #30 tabs omeprazole 20 mg capsule,delayed 20 mg PO DAILY@0830 30 days #30 04/05/22 09/16/22 09/07/22 Rx release caps sevelamer carbonate 0.8 gram oral 0.4 g PO TID 06/12/22 09/16/22 09/07/22 History powder packet ondansetron 8 mg disintegrating 8 mg PO Q8H PRN nausea and 06/16/22 09/16/22 Unknown Rx tablet vomiting #90 tabs budesonide 0.5 mg/2 mL suspension 0.5 mg (2 mL) inhalation BID #120 06/21/22 09/16/22 09/07/22 Rx for nebulization (Pulmicort) mL formoterol fumarate 20 mcg/2 mL 2 ml inhalation Q12H #120 mL 06/21/22 09/16/22 09/07/22 Rx solution for nebulization (Perforomist) buspirone 5 mg tablet 5 mg PO TID #90 tabs 07/01/22 09/16/22 09/07/22 Rx citalopram 40 mg tablet 40 mg PO DAILY@0830 30 days #30 07/01/22 09/16/22 09/07/22 Rx tabs azithromycin 250 mg tablet 250 mg PO .COMPLEX COPD 90 days 07/06/22 09/16/22 08/20/22 Rx #45 tabs aspirin 81 mg tablet,delayed 81 mg PO DAILY@0830 30 days #30 08/18/22 09/16/22 09/07/22 Rx release tabs hydroxyzine HCl 50 mg tablet 50 mg PO QID PRN Anxiety 08/21/22 09/16/22 08/20/22 History ropinirole 1 mg tablet 1 mg PO BEDTIME 08/21/22 09/16/22 09/07/22 History polyethylene glycol 3350 17 gram 17 g PO DAILY PRN constipation #30 08/25/22 09/16/22 Unknown Rx oral powder packet ea bumetanide 0.5 mg tablet 0.5 mg PO DAILY 09/08/22 09/16/22 09/07/22 History hydrocodone 5 mg-acetaminophen 325 1 tab PO BID PRN pain #10 tabs 09/08/22 09/16/22 Unknown Rx mg tablet vit B,C-folic ac 800 mcg-zinc 12.5 1 tab PO QPM 09/08/22 09/16/22 09/07/22 History mg-selen-D3 2,000 unit-vit E tablet (RenaPlex-D) prednisone 20 mg tablet 20 mg PO BID #10 tabs 09/10/22 09/16/22 09/14/22 Rx finished 09/14/22 losartan 50 mg tablet 100 mg PO DAILY 09/13/22 09/16/22 Unknown History atorvastatin 40 mg tablet 40 mg PO QAM 09/16/22 09/16/22 Unknown History clarithromycin 500 mg tablet 500 mg PO BID 09/16/22 09/16/22 Unknown History clonidine 0.1 mg/24 hr weekly 1 patch topical Q7D 09/16/22 09/16/22 Unknown History transdermal patch isosorbide mononitrate 60 mg 60 mg PO DAILY@0830 09/16/22 09/16/22 Unknown History tablet,extended release 24 hr levothyroxine 50 mcg tablet 50 mcg PO QAM 09/16/22 09/16/22 Unknown History revefenacin 175 mcg/3 mL solution 175 mcg inhalation QAM 09/16/22 09/16/22 Unknown History for nebulization Allergies Allergy/AdvReac Type Severity Reaction Status Date / Time lisinopril Allergy Severe anaphylaxis Verified 09/16/22 11:15 Sulfa (Sulfonamide AdvReac Intermediate Itching, Verified 09/16/22 11:15 Antibiotics) burning Current Medications Generic Name Dose Route Start Last Admin Trade Name Freq PRN Reason Stop Dose Admin Albuterol/Ipratropium 3 ml 09/16/22 15:00 09/16/22 15:15 Ipratropium-Albuterol 3 Ml Neb INHALATION 3 ml Q6H APOLONIA Administration Clonidine HCl 1 patch 09/16/22 15:00 09/16/22 16:31 Clonidine 0.1 Mg/24 Hr Patch TOPICAL Not Given Q7D APOLONIA Norepinephrine Bitartrate 4 mg 254 mls @ 0 mls/hr 09/16/22 15:30 09/16/22 15:58 / Dextrose IV 6 mcg/min .Q0M APOLONIA 22.86 mls/hr Titration Protocol Per Protocol Non-Formulary Medication 0.4 gm 09/16/22 15:00 09/16/22 16:34 Sevelamer Carbonate PO Not Given TID APOLONIA PFSH Acute PFSH: Medical History AAA (abdominal aortic aneurysm) 4.1 x 4.4 x 5.7 cm 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 Anemia Atypical chest pain Brain aneurysm Chest pain Chest pain Chronic kidney disease CKD stage III, solitary kidney Chronic migraine without aura, intractable, with status migrainosus Congestive heart failure COPD (chronic obstructive pulmonary disease) COPD with acute exacerbation Depression Elevated troponin End-stage renal disease needing dialysis Endoleak post (EVAR) endovascular aneurysm repair GERD (gastroesophageal reflux disease) History of stent insertion of renal artery Hypercholesteremia Hypertension Hypertensive urgency Resolved Hyponatremia Hypothyroidism Inguinal swelling Major depressive disorder, recurrent severe without psychotic features Malnourished Normal colonoscopy NSTEMI (non-ST elevated myocardial infarction) Osteoporosis Peripheral vascular disease Protein-energy malnutrition Psychiatric care Restless leg Solitary kidney Surgical History H/O: hysterectomy History of renal stent Herculink stent History of repair of aneurysm of abdominal aorta using endovascular stent graft Hx of tonsillectomy S/P appendectomy Status post endovascular aneurysm repair (EVAR) Family History Mother CAD (coronary artery disease) Chronic kidney disease (CKD) Dementia Stroke Father CAD (coronary artery disease) Cancer Diabetes Brother CAD (coronary artery disease) Cancer Lung disease Grandfather Cancer Grandmother Diabetes Family/Other Lung disease Suicide Other Hypertension Denies family history of Clotting disorder Anesthesia complication Bleeding disorder Social History Smoking and tobacco status: former smoker Quit status (tobacco): has quit using tobacco Year quit tobacco: 2005 - PPD x 35 Years Former quit date comment: Started at age 18 Second hand smoke exposure: No Smoking risk assessment/counseling performed?: No Alcohol intake: never Desire information about alcohol rehabilitation?: No Counseling given: No Desire information about substance/drug rehabilitation?: No Counseling given: No Adopted: No Caregiver/support person: No Lives independently: Yes Household members: family and children Housing: House Marital status: / Marital status details: 2005 Number of children: 12 Number of grandchildren: 4 Highest education level completed: Master's Degree Education level details: Criminal Justice service: No Current occupational status: disabled Current occupational exposures/hazards: No Pets and animals: Yes Pets & animals: cat(s), dog(s) and farm animals Farm Animals: cattle Leisure activites: reading and other Leisure activities details: watch TV Sexually active: No Current gender identity: Female Yudy/Adventism: [employer] Special yudy needs: No Agree to transfusion: Yes Financial difficulty paying for basics: Somewhat Hard Female Reproductive History: Para: 0 Spontaneous abortions: Yes Vitals/I&O/Wt Last Vital Signs Temp 97.2 F L 09/16/22 16:23 Pulse 104 H 09/16/22 16:23 Resp 20 H 09/16/22 16:23 BP 154/83 09/16/22 16:31 Pulse Ox 94 09/16/22 15:15 O2 Del Method 09/16/22 15:22 O2 Flow Rate 4 09/16/22 09:45 FiO2 36 09/16/22 15:15 09/16/22 09/16/22 09/16/22 06:59 14:59 22:59 Intake Total 150 / 150 3.048 / 153.048 Balance 150 / 150 3.048 / 153.048 Weight last 48 hrs Weight 33.112 kg Physical Exam Narrative: Awake alert, on facemask 30% FiO2 No acute distress PERRL S1-S2 regular rate and rhythm per report Decreased breath sounds bilaterally per report No edema Data 09/16/22 09:07 09/16/22 09:07 Micro: Microbiology 09/16/22 11:30 Blood Culture - Preliminary Blood SPECIMEN COLLECTED 09/16/22 11:35 Blood Culture - Preliminary Blood SPECIMEN COLLECTED A&P Assessment and plan (1) End stage renal 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: Plan Acute on chronic respiratory failure: Multifactorial, volume overload and pneumonia possibly Hyperkalemia: Hemodialysis as above, low K diet Anemia: Hemoglobin 9.5, monitor. Drops below 9 we will add HAIM Patient evaluated using audiovisual cart. Time spent 35 minutes Consult Attestations Medical Necessity Statement: Hospitalization for management of heart failure and renal failure. Coding Level of Care Code Acute Code for Chg Fwd Diagnoses End stage renal 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 N18.6; Z99.2
[2022-09-16] MEDS: cefTRIAXone 1,000 MG in sodium chloride 0.9% (plus) 50 ML 100 MG IV (17:15)
[2022-09-16] MEDS: heparin 5,000 unit/mL INJ 1 mL 5000 UNIT SUBCUT (17:17)
[2022-09-16] MEDS: predniSONE 20 mg Tablet PO (17:18)
[2022-09-16] MEDS: azithromycin 500 MG in sodium chloride 0.9% 250 ML 250 MG IV (17:20)
[2022-09-16] MEDS: budesonide 0.5 mg/2 mL Neb INHALATION (20:08)
[2022-09-16] MEDS: sevelamer 800 mg Tablet PO (20:12)
[2022-09-16] MEDS: ropinirole 1 mg Tablet PO (21:40)
[2022-09-16] MEDS: BuSPIRONE 10 mg Tablet 5 MG PO (21:40)
[2022-09-16] MEDS: HYDROcodone-acetaminophen 5-325 mg Tablet 1 TAB PO (21:41)
[2022-09-16] MEDS: metoprolol succinate ER (24 HR) 50 mg Tablet PO (22:28)
[2022-09-17] VITALS (29 sets, daily range): BP systolic 144–186; BP diastolic 81–113; PULSE 85–94; RESP 10–24; TEMP 36.5–36.8; O2SAT 88–100; BMI 16.2
[2022-09-17] MEDS: ipratropium-albuterol 3 mL Neb INHALATION ×5 (02:56→20:21)
[2022-09-17] MEDS: heparin 5,000 unit/mL INJ 1 mL 5000 UNIT SUBCUT ×2 (03:14→15:50)
[2022-09-17 03:50] LABS: Basophils % 0.2 %; Hematocrit 24.8 % (37.0-47.0); Hemoglobin 7.2 g/dL (11.5-15.3); Lymphocytes % 17.9 %; Mean Corpuscular Hemoglobin 31.3 pg (28.0-34.0); Mean Corpuscular Volume 107.8 fl (81-99); Mean Platelet Volume 9.6 fL (7.4-10.4); Monocytes # 0.2 10^3/uL (0.2-0.9); Monocytes % 2.7 %; Neutrophils # 4.45 10^3/uL (1.8-7.7); Neutrophils % 78.7 %; Nucleated Red Blood Cells % 0 %; Platelet Count 167 10^3/cmm (130-400); Red Cell Distribution Width 18.9 % (12.1-15.1); White Blood Count 5.7 10^3/uL (4.0-10.0)
[2022-09-17 04:16] LABS: Alanine Aminotransferase 17 U/L (0-33); Albumin Level 3.2 g/dL (3.5-5.2); Alkaline Phosphatase 90 U/L (35-105); Anion Gap 19.9 (5-19); Aspartate Amino Transferase 30 U/L (0-32); Blood Urea Nitrogen 26 mg/dL (8-23); Calcium 9.1 mg/dL (8.5-10.5); Carbon Dioxide 25 mmol/L (22-29); Chloride 96 mmol/L (98-107); Globulin 2.7 g/dL (1.3-4.6); Glomerular Filtration Rate 15.1 mL/min (90-130); Glucose 87 mg/dL (65-115); Magnesium 2.2 mg/dL (1.7-2.3); Osmolality Calculated 286 mOsm/kg (285-295); Potassium 4.9 mmol/L (3.5-5.1); Sodium 136 mmol/L (136-145); Total Bilirubin 0.2 mg/dL (0.15-1.2); Total Protein 5.9 g/dL (6.6-8.7)
[2022-09-17] MEDS: HYDROcodone-acetaminophen 5-325 mg Tablet 1 TAB PO ×3 (05:41→21:55)
[2022-09-17] MEDS: atorvastatin 40 mg Tablet PO (06:15)
[2022-09-17] MEDS: levothyroxine 50 mcg Tablet PO (06:15)
--- NOTE | 2022-09-17 07:02 | ECG_ITS ---
[facility] Test Date: 2022-09-17 Pat Name: Hali James Department: Room: ICU11 Gender: Female Functional Manager: : 1955 Requested By: Preeti Padilla Order Number: [id number] Wli MD: Nabil Cazares M.D. Measurements Intervals [place] Rate: 86 P: 88 GA: 135 QRS: 80 QRSD: 78 T: 67 QT: 403 QTc: 483 Interpretive Statements SINUS RHYTHM POSSIBLE LEFT ATRIAL ENLARGEMENT [-0.1mV P-WAVE IN V1/V2] Compared to ECG 09/16/2022 14:48:00 Sinus tachycardia no longer present Short GA interval no longer present Electronically Signed On 09-17-2022 15:12:07 [employer]PORATE DEV[employer]OPMENT [employer]OCIATE by Nabil Cazares M.D. [id number]
[2022-09-17] MEDS: budesonide 0.5 mg/2 mL Neb INHALATION ×2 (07:24→20:21)
--- NOTE | 2022-09-17 07:26 | PC.NURSE ---
Chest Pain, left arm pain, SOB, and anxiety. EKG performed and is normal sinus with no ST elevation. Patient complains of being anxious about getting her dialysis today because it makes her anxious. Respiratory called for breathing treatment. Sats 100% on 5LNC. Patient not in distress.
[2022-09-17] MEDS: BuSPIRONE 10 mg Tablet 5 MG PO ×3 (09:16→21:37)
[2022-09-17] MEDS: predniSONE 20 mg Tablet PO ×2 (09:16→17:57)
[2022-09-17] MEDS: LORazepam 0.5 mg Tablet PO ×2 (09:16→21:38)
[2022-09-17] MEDS: isosorbide mononitrate ER 60 mg Tablet PO (09:16)
[2022-09-17] MEDS: metoprolol succinate ER (24 HR) 50 mg Tablet PO ×2 (09:17→21:38)
[2022-09-17] MEDS: losartan 50 mg Tablet 100 MG PO (09:17)
[2022-09-17] MEDS: sevelamer 800 mg Tablet PO ×3 (09:17→17:57)
[2022-09-17] MEDS: pantoprazole DR 40 mg Tablet PO (09:17)
[2022-09-17] MEDS: aspirin 81 mg EC Tablet PO (09:17)
[2022-09-17] MEDS: citalopram 20 mg Tablet 40 MG PO (09:17)
[2022-09-17] MEDS: montelukast sodium 10 mg Tablet PO (09:17)
--- NOTE | 2022-09-17 10:07 | PM.PN ---
Subjective Subjective: States that she feels very anxious. She says that this worsens after dialysis. Nursing reported chest pain and dyspnea overnight, but EKG was normal. Denies pain at this time. Medications: Reviewed: Yes Vitals/I&O/Wt Last Vital Signs Temp 97.7 F 09/17/22 03:00 Pulse 87 09/17/22 07:32 Resp 20 H 09/17/22 07:24 BP 170/110 09/17/22 09:17 Pulse Ox 100 09/17/22 07:24 O2 Del Method 09/17/22 07:24 O2 Flow Rate 6 09/17/22 07:24 FiO2 36 09/17/22 06:00 09/16/22 09/17/22 09/17/22 22:59 06:59 14:59 Intake Total 858.514 / 1008.514 110 / 1118.514 Output Total 1900 / 1900 0 / 1900 Balance -1041.486 / -891.486 110 / -781.486 Weight last 48 hrs Weight 77 lb 14.4 oz Weight 78 lb 4.226 oz Weight 79 lb 3 oz Weight 73 lb Physical Exam Narrative: General: exam is a thin appearing white female currently on BiPAP with mild to moderate respiratory distress HEENT: Atraumatic and normocephalic. Neck: is supple no lymphadenopathy thyromegaly Cardiovascular: regular rate and rhythm without murmur. Dialysis line noted right chest Lungs: clear but with diminished breath sounds bilaterally. Abdomen: soft, nontender, positive bowel sounds Extremities No cyanosis or edema. Skin no rash Neuro no obvious focal deficits. Data 09/17/22 03:07 09/17/22 03:07 Micro: Microbiology 09/16/22 11:30 Blood Culture - Preliminary Blood SPECIMEN COLLECTED 09/16/22 11:35 Blood Culture - Preliminary Blood SPECIMEN COLLECTED A&P Assessment and plan (1) Acute and chronic respiratory failure with hypercapnia: Likely secondary to pneumonia. Cannot rule out some pulmonary edema. Last hospitalization she did have a non-ST elevation myocardial infarction. She was not deemed to be a candidate for angiogram. Continue BiPAP, wean BiPAP as tolerated (2) Pneumonia: Patient has evidence of pneumonia on chest x-ray, left lower lobe Continue Rocephin, azithromycin Sputum culture pending Blood culture pending. Wean oxygen as tolerated (3) Acute hyperkalemia: Patient presented with acute hyperkalemia. Currently resolved. She received calcium in the emergency department Continue to monitor labs. (4) End stage renal 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: Nephrology consultation for hemodialysis (5) COPD (chronic obstructive pulmonary disease): Budesonide Nebs every 6 hours RAAT, O2 protocol. Continue ABx, steroids for now. Plan Worsening anxiety overnight. Will add low dose ativan to as needed for symptoms. EKG reviewed from overnight demonstrated sinus rhythm without acute ST-T changes. Code Status: Full IVF: None DVT PPx: Heparin GI PPx: Protonix ABx: Rocephin, Azithromycin Diet: CC Discharge plan: TBD. Attestations Medical Necessity Statement*: Will require greater than 2 midnight stay for evaluation and treatment of acute respiratory failure, hyperkalemia, pneumonia Diagnoses Acute and chronic respiratory failure with hypercapnia J96.22 Pneumonia J18.9 Acute hyperkalemia E87.5 End stage renal 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 N18.6; Z99.2 COPD (chronic obstructive pulmonary disease) J44.9
[2022-09-17] MEDS: acetaminophen 325 mg Tablet 650 MG PO (11:59)
[2022-09-17] MEDS: cefTRIAXone 1,000 MG in sodium chloride 0.9% (plus) 50 ML 100 MG IV (15:49)
--- NOTE | 2022-09-17 16:06 | PM.PN ---
Subjective Subjective: FEELS BETTER Medications: Reviewed: Yes Vitals/I&O/Wt Last Vital Signs Temp 97.7 F 09/17/22 03:00 Pulse 87 09/17/22 14:00 Resp 22 H 09/17/22 14:00 BP 167/89 09/17/22 14:00 Pulse Ox 99 09/17/22 14:00 O2 Del Method 09/17/22 14:00 O2 Flow Rate 5 09/17/22 14:00 FiO2 36 09/17/22 06:00 09/17/22 09/17/22 09/17/22 06:59 14:59 22:59 Intake Total 110 / 1118.514 360 / 360 Output Total 0 / 1900 Balance 110 / -781.486 360 / 360 Weight last 48 hrs Weight 35.335 kg Weight 35.5 kg Weight 35.919 kg Weight 33.112 kg Physical Exam Narrative: Awake alert, on facemask 30% FiO2 No acute distress PERRL S1-S2 regular rate and rhythm per report Decreased breath sounds bilaterally per report No edema Data 09/17/22 03:07 09/17/22 03:07 Micro: Microbiology 09/16/22 11:30 Blood Culture - Preliminary Blood NEGATIVE TO DATE 09/16/22 11:35 Blood Culture - Preliminary Blood NEGATIVE TO DATE A&P Assessment and plan (1) End stage renal 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: Plan ESRD : S/p HD yesterday and plan for HD again tomorrow Acute on chronic respiratory failure: Multifactorial, volume overload and pneumonia possibly Hyperkalemia: Hemodialysis as above, low K diet Anemia: Hemoglobin 9.5, monitor. Drops below 9 we will add HAIM Patient evaluated using audiovisual cart. Time spent 35 minutes Attestations Medical Necessity Statement*: per medicaine team Coding Level of Care Code Acute Code for Chg Fwd Diagnoses End stage renal 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 N18.6; Z99.2
[2022-09-17] MEDS: azithromycin 500 MG in sodium chloride 0.9% 250 ML 250 MG IV (16:44)
[2022-09-17] MEDS: LORazepam 2 mg/mL INJ 1 mL 0.5 MG IVP (19:05)
[2022-09-17] MEDS: ropinirole 1 mg Tablet PO (21:37)
[2022-09-18] VITALS (33 sets, daily range): BP systolic 83–187; BP diastolic 67–125; PULSE 71–98; RESP 16–30; TEMP 36.6; O2SAT 92–99
[2022-09-18] MEDS: ipratropium-albuterol 3 mL Neb INHALATION ×4 (02:49→20:10)
[2022-09-18] MEDS: HYDROcodone-acetaminophen 5-325 mg Tablet 1 TAB PO ×2 (07:21→18:44)
[2022-09-18] MEDS: LORazepam 2 mg/mL INJ 1 mL 0.5 MG IVP (07:21)
[2022-09-18] MEDS: budesonide 0.5 mg/2 mL Neb INHALATION ×2 (07:34→20:10)
[2022-09-18] MEDS: pantoprazole DR 40 mg Tablet PO (09:38)
[2022-09-18] MEDS: predniSONE 20 mg Tablet PO ×2 (09:39→18:44)
[2022-09-18] MEDS: citalopram 20 mg Tablet 40 MG PO (09:39)
[2022-09-18] MEDS: metoprolol succinate ER (24 HR) 50 mg Tablet PO ×2 (09:39→23:46)
[2022-09-18] MEDS: montelukast sodium 10 mg Tablet PO (09:39)
[2022-09-18] MEDS: losartan 50 mg Tablet 100 MG PO (09:39)
[2022-09-18] MEDS: aspirin 81 mg EC Tablet PO (09:39)
[2022-09-18] MEDS: BuSPIRONE 10 mg Tablet 5 MG PO ×3 (09:40→23:46)
[2022-09-18] MEDS: sevelamer 800 mg Tablet PO (09:40)
[2022-09-18] MEDS: isosorbide mononitrate ER 60 mg Tablet PO (09:41)
[2022-09-18] MEDS: hyDROXYzine 25 mg Capsule 50 MG PO ×2 (10:55→23:45)
--- NOTE | 2022-09-18 11:01 | PC.NURSE ---
Levophed gtt used only during dialysis and turned off immediately once dialysis finished.
[2022-09-18 11:02] LABS: Basophils % 0.1 %; Hematocrit 35.2 % (37.0-47.0); Hemoglobin 10.3 g/dL (11.5-15.3); Lymphocytes # 1.9 10^3/uL (0.8-4.8); Lymphocytes % 14.5 %; Mean Corpuscular HGB Conc 29.3 g/dL (30.0-36.0); Mean Corpuscular Hemoglobin 30.6 pg (28.0-34.0); Mean Corpuscular Volume 104.5 fl (81-99); Mean Platelet Volume 10.4 fL (7.4-10.4); Monocytes # 0.5 10^3/uL (0.2-0.9); Monocytes % 3.7 %; Neutrophils # 10.55 10^3/uL (1.8-7.7); Neutrophils % 80.7 %; Nucleated Red Blood Cells % 0 %; Platelet Count 336 10^3/cmm (130-400); Red Blood Count 3.37 10^6/uL (4.1-5.3); White Blood Count 13.1 10^3/uL (4.0-10.0)
[2022-09-18] MEDS: acetaminophen 325 mg Tablet 650 MG PO ×2 (14:52→23:45)
[2022-09-18] MEDS: LORazepam 0.5 mg Tablet PO (14:52)
--- NOTE | 2022-09-18 15:48 | PM.PN ---
Subjective Subjective: Patient was seen this morning, she is receiving dialysis she keeps mouthing to me that she is in pain, she is able to follow commands, but falls back asleep, she did have a low blood pressure initially with dialysis, now normotensive, denies any chest pain, is on 3 L Vitals/I&O/Wt Last Vital Signs Temp 97.9 F 09/18/22 12:49 Pulse 80 09/18/22 14:23 Resp 20 H 09/18/22 14:15 BP 158/102 09/18/22 14:00 Pulse Ox 98 09/18/22 14:15 O2 Del Method 09/18/22 14:15 O2 Flow Rate 3 09/18/22 14:15 FiO2 30 09/18/22 07:36 09/18/22 09/18/22 09/18/22 06:59 14:59 22:59 Intake Total 250 / 1280 595.438 / 595.438 Output Total 0 / 0 2714 / 2714 Balance 250 / 1280 -2118.562 / -2118.562 Weight last 48 hrs Weight 31.7 kg Weight 31.44 kg Weight 35.335 kg Weight 35.5 kg Physical Exam Const: COMMON NORMALS: no acute distress and patient oriented x3 OTHER: Has temporal muscle wasting, peripheral muscle wasting, and both arms, legs Resp: COMMON NORMALS: normal respiratory effort, No retractions, No use of accessory muscles and clear to auscultation bilaterally AUSCULTATION: clear to auscultation bilaterally Cardio: COMMON NORMALS: regular rate, regular rhythm, S1 normal heart sound present and S2 normal heart sound present RATE: regular rate RHYTHM: regular rhythm HEART SOUNDS: S1 normal heart sound present and S2 normal heart sound present GI: COMMON NORMALS: Normal to inspection, nondistended, normoactive bowel sounds present and non-tender Back/Pelvis: OTHER: Stage I DTI Extremity: COMMON NORMALS: no pedal edema Neuro: COMMON NORMALS: patient oriented x3 Psych: COMMON NORMALS: mental status grossly normal Data 09/18/22 09:50 09/17/22 03:07 Micro: Microbiology 09/16/22 11:30 Blood Culture - Preliminary Blood NEGATIVE TO DATE 09/16/22 11:35 Blood Culture - Preliminary Blood NEGATIVE TO DATE A&P Assessment and plan (1) Acute and chronic respiratory failure with hypercapnia: - Likely multifactorial from pneumonia, and fluid overload and pulm edema and see acute exacerbation -6sputum cultures in the past have grown Pseudomonas -Continue azithromycin -Switch to cefepime 2 g every 12 hour for Pseudomonas coverage -Continue dialysis -Monitor respiratory status closely (2) Pneumonia: Patient has evidence of pneumonia on chest x-ray, left lower lobe Continue Rocephin, azithromycin Sputum culture pending Blood culture pending. Wean oxygen as tolerated (3) Acute hyperkalemia: Patient presented with acute hyperkalemia. Currently resolved. She received calcium in the emergency department Continue to monitor labs. (4) End stage renal 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: Nephrology consultation for hemodialysis (5) COPD (chronic obstructive pulmonary disease): Budesonide Nebs every 6 hours RAAT, O2 protocol. Continue ABx, steroids for now. (6) Protein calorie malnutrition: - Consult speech,'s consult dietary (7) Physical deconditioning: (8) Muscle wasting: Plan Worsening anxiety overnight. Will add low dose ativan to as needed for symptoms. EKG reviewed from overnight demonstrated sinus rhythm without acute ST-T changes. Code Status: Full IVF: None DVT PPx: Heparin GI PPx: Protonix ABx: cefepime, Azithromycin Diet: CC Attestations Medical Necessity Statement*: Patient requires hospitalization for COPD exacerbation, pneumonia, fluid overload Diagnoses Acute and chronic respiratory failure with hypercapnia J96.22 Pneumonia J18.9 Acute hyperkalemia E87.5 End stage renal 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 N18.6; Z99.2 COPD (chronic obstructive pulmonary disease) J44.9 Protein calorie malnutrition E46 Physical deconditioning R53.81 Muscle wasting M62.50
[2022-09-18] MEDS: cefTRIAXone 1,000 MG in sodium chloride 0.9% (plus) 50 ML 100 MG IV (15:50)
[2022-09-18 16:30] LABS: Procalcitonin 1.63 ng/mL (0-0.5)
[2022-09-18] MEDS: cefepime 1,000 MG in sodium chloride 0.9% (plus) 50 ML 100 MG IV (16:37)
[2022-09-18] MEDS: azithromycin 500 MG in sodium chloride 0.9% 250 ML 250 MG IV (16:41)
[2022-09-18 16:43] LABS: Alanine Aminotransferase 21 U/L (0-33); Albumin Level 3.4 g/dL (3.5-5.2); Alkaline Phosphatase 92 U/L (35-105); Anion Gap 16.4 (5-19); Aspartate Amino Transferase 26 U/L (0-32); Blood Urea Nitrogen 20 mg/dL (8-23); C Reactive Protein 10.2 mg/L (0.0-4.9); Calcium 8.8 mg/dL (8.5-10.5); Carbon Dioxide 26 mmol/L (22-29); Chloride 96 mmol/L (98-107); Globulin 2.6 g/dL (1.3-4.6); Glomerular Filtration Rate 22.4 mL/min (90-130); Glucose 140 mg/dL (65-115); Magnesium 2.1 mg/dL (1.7-2.3); Osmolality Calculated 285 mOsm/kg (285-295); Phosphorus 2.2 mg/dL (2.5-4.5); Potassium 3.4 mmol/L (3.5-5.1); Sodium 135 mmol/L (136-145); Total Bilirubin 0.2 mg/dL (0.15-1.2)
[2022-09-18] MEDS: heparin 5,000 unit/mL INJ 1 mL 5000 UNIT SUBCUT (16:44)
[2022-09-18 17:18] LABS: NT Pro B Type Natriuretic Pept > 70000 pg/mL (0-125)
--- NOTE | 2022-09-18 18:12 | PM.PN ---
Subjective Subjective: HD today Medications: Reviewed: Yes Vitals/I&O/Wt Last Vital Signs Temp 97.9 F 09/18/22 12:49 Pulse 79 09/18/22 17:00 Resp 19 H 09/18/22 17:00 BP 156/90 09/18/22 17:00 Pulse Ox 98 09/18/22 17:00 O2 Del Method 09/18/22 14:15 O2 Flow Rate 3 09/18/22 14:15 FiO2 30 09/18/22 07:36 09/18/22 09/18/22 09/18/22 06:59 14:59 22:59 Intake Total 250 / 1280 595.438 / 595.438 100 / 695.438 Output Total 0 / 0 2714 / 2714 Balance 250 / 1280 -2118.562 / -2118.562 100 / -2018.562 Weight last 48 hrs Weight 31.7 kg Weight 31.44 kg Weight 35.335 kg Weight 35.5 kg Physical Exam Narrative: Awake alert, on facemask 30% FiO2 No acute distress PERRL S1-S2 regular rate and rhythm per report Decreased breath sounds bilaterally per report No edema Data 09/18/22 09:50 09/18/22 15:48 A&P Assessment and plan (1) End stage renal 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: Plan ESRD : HD today Acute on chronic respiratory failure: Multifactorial, volume overload and pneumonia possibly Hyperkalemia: Hemodialysis as above, low K diet Anemia: Hemoglobin 10.3 , HAIM if needed Patient evaluated using audiovisual cart. Time spent 35 minutes Attestations Medical Necessity Statement*: Patient requires hospitalization for COPD exacerbation, pneumonia, fluid overload Coding Level of Care Code Acute Code for Chg Fwd Diagnoses End stage renal 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 N18.6; Z99.2
[2022-09-18] MEDS: ropinirole 1 mg Tablet PO (23:47)
[2022-09-19] VITALS (16 sets, daily range): BP systolic 145–197; BP diastolic 76–98; PULSE 69–81; RESP 15–23; TEMP 36.6–36.9; O2SAT 95–100
[2022-09-19] MEDS: heparin 5,000 unit/mL INJ 1 mL 5000 UNIT SUBCUT ×2 (03:45→15:30)
[2022-09-19] MEDS: levothyroxine 50 mcg Tablet PO (05:26)
[2022-09-19] MEDS: atorvastatin 40 mg Tablet PO (05:26)
[2022-09-19 05:37] LABS: Hematocrit 29.1 % (37.0-47.0); Hemoglobin 8.6 g/dL (11.5-15.3); Lymphocytes # 1.1 10^3/uL (0.8-4.8); Lymphocytes % 18.1 %; Mean Corpuscular HGB Conc 29.6 g/dL (30.0-36.0); Mean Corpuscular Hemoglobin 30.9 pg (28.0-34.0); Mean Corpuscular Volume 104.7 fl (81-99); Mean Platelet Volume 9.8 fL (7.4-10.4); Monocytes # 0.1 10^3/uL (0.2-0.9); Monocytes % 1.5 %; Neutrophils # 4.86 10^3/uL (1.8-7.7); Neutrophils % 79.7 %; Nucleated Red Blood Cells % 0 %; Platelet Count 207 10^3/cmm (130-400); Red Blood Count 2.78 10^6/uL (4.1-5.3); Red Cell Distribution Width 18.6 % (12.1-15.1); White Blood Count 6.1 10^3/uL (4.0-10.0)
[2022-09-19 06:05] LABS: Procalcitonin 1.65 ng/mL (0-0.5)
[2022-09-19 06:21] LABS: Alanine Aminotransferase 22 U/L (0-33); Albumin Level 3.6 g/dL (3.5-5.2); Alkaline Phosphatase 94 U/L (35-105); Anion Gap 17.1 (5-19); Aspartate Amino Transferase 22 U/L (0-32); Blood Urea Nitrogen 31 mg/dL (8-23); C Reactive Protein 9.3 mg/L (0.0-4.9); Calcium 9.3 mg/dL (8.5-10.5); Carbon Dioxide 28 mmol/L (22-29); Chloride 99 mmol/L (98-107); Globulin 2.7 g/dL (1.3-4.6); Glomerular Filtration Rate 15.1 mL/min (90-130); Glucose 133 mg/dL (65-115); Magnesium 2.5 mg/dL (1.7-2.3); Osmolality Calculated 298 mOsm/kg (285-295); Potassium 4.1 mmol/L (3.5-5.1); Sodium 140 mmol/L (136-145); Total Bilirubin 0.2 mg/dL (0.15-1.2); Total Protein 6.3 g/dL (6.6-8.7)
--- NOTE | 2022-09-19 07:00 | XRR_ITS ---
PROCEDURE INFORMATION: Exam: XR Chest Exam date and time: 09/19/2022 7:05 AM Age: 67 years old Clinical indication: Shortness of breath; Additional info: SOB TECHNIQUE: Imaging protocol: Radiologic exam of the chest. Views: 1 view. COMPARISON: CR XR chest 1V portable [id number] 09/16/2022 8:38 AM FINDINGS: Tubes, catheters and devices: Right internal jugular tunneled dialysis catheter is once again seen with tip overlying the mid right atrium. Lungs: Normal lung volumes. Decreased perihilar interstitial opacities with minimal residual opacities. This may represent resolving pulmonary edema. Underlying interstitial lung disease cannot be excluded. No airspace opacities in the lungs. Pleural spaces: No pleural effusion. No pneumothorax. Heart/Mediastinum: The heart size is normal. The trachea is midline.There is a mildly tortuous thoracic aorta. Postprocedural changes of the abdominal aorta are seen status post stent graft repair. Bones/joints: Unchanged mild dextroconvex scoliosis of the lumbar spine. Mild bilateral shoulder degenerative changes. Generalized osteopenia. Multiple external densities are seen overlying the chest, limiting assessment. XR/XR chest 1V portable [id number] IMPRESSION: Decreased perihilar interstitial opacities with minimal residual opacities. This may represent resolving pulmonary edema. Underlying interstitial lung disease cannot be excluded. No airspace opacities in the lungs.
[2022-09-19 07:19] LABS: NT Pro B Type Natriuretic Pept > 70000 pg/mL (0-125); Phosphorus 3.5 mg/dL (2.5-4.5)
[2022-09-19] MEDS: sevelamer 800 mg Tablet PO ×3 (08:00→17:48)
[2022-09-19] MEDS: pantoprazole DR 40 mg Tablet PO (08:03)
[2022-09-19] MEDS: BuSPIRONE 10 mg Tablet 5 MG PO ×3 (08:03→21:10)
[2022-09-19] MEDS: losartan 50 mg Tablet 100 MG PO (08:03)
[2022-09-19] MEDS: predniSONE 20 mg Tablet PO ×2 (08:03→17:48)
[2022-09-19] MEDS: hyDROXYzine 25 mg Capsule 50 MG PO (08:08)
[2022-09-19] MEDS: montelukast sodium 10 mg Tablet PO (08:08)
[2022-09-19] MEDS: aspirin 81 mg EC Tablet PO (08:08)
[2022-09-19] MEDS: citalopram 20 mg Tablet 40 MG PO (08:08)
[2022-09-19] MEDS: isosorbide mononitrate ER 60 mg Tablet PO (08:08)
[2022-09-19] MEDS: metoprolol succinate ER (24 HR) 50 mg Tablet PO ×2 (08:08→21:11)
--- NOTE | 2022-09-19 09:11 | P.PN_ITS ---
Subjective Subjective: still weak and sob. though feels better. no n/v/f/c/molina/d Medications: Reviewed: Yes Medication Review Details: Current Medications Acetaminophen (Acetaminophen 325 Mg Tablet) 650 mg PO Q6H PRN PRN Reason: MILD PAIN Last Admin: 09/18/22 23:45 Dose: 650 mg Acetaminophen (Acetaminophen 325 Mg Tablet) 650 mg PO Q6H PRN PRN Reason: MILD PAIN Hydrocodone Bitart/Acetaminophen (Hydrocodone-Acetaminophen 5-325 Mg Tablet) 1 tab PO BID PRN PRN Reason: moderate pain Last Admin: 09/18/22 18:44 Dose: 1 tab Albuterol/Ipratropium (Ipratropium-Albuterol 3 Ml Neb) 3 ml INHALATION Q6H [facility] Last Admin: 09/19/22 03:42 Dose: Not Given Aspirin (Aspirin 81 Mg Ec Tablet) 81 mg PO DAILY@0830 [facility] Last Admin: 09/19/22 08:08 Dose: 81 mg Atorvastatin Calcium (Atorvastatin 40 Mg Tablet) 40 mg PO QAM [facility] Last Admin: 09/19/22 05:26 Dose: 40 mg Budesonide (Budesonide 0.5 Mg/2 Ml Neb) 0.5 mg INHALATION BID.RESPIRATORY [facility] Last Admin: 09/18/22 20:10 Dose: 0.5 mg Buspirone HCl (Buspirone 10 Mg Tablet) 5 mg PO TID [facility] Last Admin: 09/19/22 08:03 Dose: 5 mg Citalopram Hydrobromide (Citalopram 20 Mg Tablet) 40 mg PO DAILY@0830 [facility] Last Admin: 09/19/22 08:08 Dose: 40 mg Heparin Sodium (Porcine) (Heparin 5,000 Unit/Ml Inj 1 Ml) 5,000 unit SUBCUT Q12H [facility] Last Admin: 09/19/22 03:45 Dose: 5,000 unit Hydroxyzine Pamoate (Hydroxyzine 25 Mg Capsule) 50 mg PO QID PRN PRN Reason: Anxiety Last Admin: 09/19/22 08:08 Dose: 50 mg Azithromycin 500 mg/ Sodium (Chloride) 250 mls @ 250 mls/hr IV Q24H [facility]; Protocol Last Infusion: 09/18/22 18:40 Dose: Infused Norepinephrine Bitartrate 4 mg (/ Dextrose) 254 mls @ 0 mls/hr IV .Q0M [facility]; Protocol Last Titration: 09/18/22 11:01 Dose: 0 mcg/min, 0 mls/hr Sodium Chloride (Sodium Chloride 0.9%) 1,000 mls @ 0 mls/hr IV .Q0M PRN PRN Reason: hypotension or symptomatic Albumin Human (Albumin) 12.5 gm in 50 mls @ 60 mls/hr IV PRN PRN PRN Reason: Hypotension and/or symptomatic Sodium Chloride (Sodium Chloride 0.9%) 1,000 mls @ 0 mls/hr IV .Q0M PRN PRN Reason: hypotension or symptomatic Albumin Human (Albumin) 12.5 gm in 50 mls @ 60 mls/hr IV PRN PRN PRN Reason: Hypotension and/or symptomatic Cefepime HCl 1,000 mg/ Sodium (Chloride) 50 mls @ 100 mls/hr IV Q24H [facility]; Protocol Last Infusion: 09/18/22 17:36 Dose: Infused Isosorbide Mononitrate (Isosorbide Mononitrate Er 60 Mg Tablet) 60 mg PO DAILY @0830 [facility] Last Admin: 09/19/22 08:08 Dose: 60 mg Levothyroxine Sodium (Levothyroxine 50 Mcg Tablet) 50 mcg PO QAM [facility] Last Admin: 09/19/22 05:26 Dose: 50 mcg Lorazepam (Lorazepam 2 Mg/Ml Inj 1 Ml) 0.5 mg IVP Q12H PRN PRN Reason: ANXIETY Last Admin: 09/18/22 07:21 Dose: 0.5 mg Lorazepam (Lorazepam 0.5 Mg Tablet) 0.5 mg PO BID PRN PRN Reason: ANXIETY Last Admin: 09/18/22 14:52 Dose: 0.5 mg Losartan Potassium (Losartan 50 Mg Tablet) 100 mg PO DAILY [facility] Last Admin: 09/19/22 08:03 Dose: 100 mg Metoprolol Succinate (Metoprolol Succinate Er (24 Hr) 50 Mg Tablet) 50 mg PO BI D@0830,2100 [facility] Last Admin: 09/19/22 08:08 Dose: 50 mg Montelukast Sodium (Montelukast Sodium 10 Mg Tablet) 10 mg PO DAILY@0830 [facility] Last Admin: 09/19/22 08:08 Dose: 10 mg Ondansetron HCl (Ondansetron 2 Mg/Ml Sdv 2 Ml) 4 mg IVP Q6H PRN PRN Reason: NAUSEA AND VOMITING Pantoprazole Sodium (Pantoprazole Dr 40 Mg Tablet) 40 mg PO DAILY [facility] Last Admin: 09/19/22 08:03 Dose: 40 mg Prednisone (Prednisone 20 Mg Tablet) 20 mg PO BID [facility] Last Admin: 09/19/22 08:03 Dose: 20 mg Ropinirole HCl (Ropinirole 1 Mg Tablet) 1 mg PO BEDTIME [facility] Last Admin: 09/18/22 23:47 Dose: 1 mg Sevelamer Carbonate (Sevelamer 800 Mg Tablet) 800 mg PO TIDWM [facility] Last Admin: 09/19/22 08:00 Dose: 800 mg Vitals/I&O/Wt Last Vital Signs Temp 98 F 09/19/22 08:00 Pulse 69 09/19/22 08:00 Resp 20 H 09/19/22 08:00 BP 175/98 09/19/22 08:03 Pulse Ox 100 09/19/22 08:00 O2 Del Method 09/19/22 06:00 O2 Flow Rate 3 09/19/22 06:00 FiO2 30 09/18/22 07:36 09/18/22 09/19/22 09/19/22 21:59 06:59 14:59 Intake Total 200 / 200 Output Total Balance 200 / 200 Weight last 48 hrs Weight 31.978 kg Weight 31.7 kg Weight 31.44 kg Physical Exam Narrative: ill appearing lady in bed, NARD vs noted- bp elevated heent- nc/ar, eomi neck supple rt sided PC lung dull bases heart reg abd soft, nt, nd, + bs ex no edema neuro- a,a, o x 3 Data 09/19/22 04:28 09/19/22 04:28 A&P Assessment and plan (1) End stage renal 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: 67 yr old female 1. eSRD- s/p HD for 3 days. normally TTS -hold dialysis today, repeat HD on Tuesday w/ volume removal -normal phos 2. PNA- renal dose abx 3. anemia- hgb down to 8.6- monitor for bleeding - HAIM when BP improved -check iron studies 4. hypertension 5. hypercapneic resp acidosis of COPD seen and examined w/ RN- telehealth visit time spent 30+ min Plan as above Attestations Medical Necessity Statement*: per medicine, chf, pna, esrd, anemai, htn Time Spent in Patient Care: 16 - 35 minutes (>than 50% of time spent in counselling and/or direct pt care on unit) . Coding Level of Care Code Acute Code for Chg Fwd Diagnoses End stage renal 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 N18.6; Z99.2
[2022-09-19] MEDS: amlodipine 5 mg Tablet PO (09:33)
--- NOTE | 2022-09-19 09:53 | PC.NURSE ---
Report called to PATRICIA Galarza.
[2022-09-19] MEDS: HYDROcodone-acetaminophen 5-325 mg Tablet 1 TAB PO ×2 (10:34→22:23)
[2022-09-19] MEDS: budesonide 0.5 mg/2 mL Neb INHALATION ×2 (10:38→19:30)
[2022-09-19] MEDS: ipratropium-albuterol 3 mL Neb INHALATION ×3 (10:39→19:31)
[2022-09-19 11:15] LABS: Hepatitis B Surface AB 57.6 (11.5-1000); Hepatitis B Surface Antigen Non-Reactive (Nonreactive); Hepatitis C Virus Antibody Non-Reactive (Nonreactive)
[2022-09-19] MEDS: polyethylene glycol 3350 Pkt 17 gm PO (14:22)
[2022-09-19] MEDS: cefepime 1,000 MG in sodium chloride 0.9% (plus) 50 ML 100 MG IV (15:29)
[2022-09-19] MEDS: azithromycin 500 MG in sodium chloride 0.9% 250 ML 250 MG IV (16:10)
--- NOTE | 2022-09-19 16:56 | PM.PN ---
Subjective Subjective: Patient was seen this morning she tells me that she feels a lot better, no fevers, no chills, she was told by nephrology to not to get dialysis today she reports a chronic poor appetite, he just does not have the appetite to eat she tells me, Vitals/I&O/Wt Last Vital Signs Temp 98.1 F 09/19/22 12:00 Pulse 76 09/19/22 14:00 Resp 18 09/19/22 14:00 BP 178/88 09/19/22 12:00 Pulse Ox 100 09/19/22 14:00 O2 Del Method 09/19/22 14:00 O2 Flow Rate 3 09/19/22 16:00 FiO2 30 09/18/22 07:36 09/19/22 09/19/22 09/19/22 06:59 14:59 22:59 Intake Total 440 / 440 50 / 490 Output Total Balance 440 / 440 50 / 490 Weight last 48 hrs Weight 31.978 kg Weight 31.7 kg Weight 31.44 kg Physical Exam Const: COMMON NORMALS: no acute distress and patient oriented x3 Chest: OTHER: Right chest dialysis catheter in place Resp: COMMON NORMALS: normal respiratory effort, No retractions, No use of accessory muscles and clear to auscultation bilaterally AUSCULTATION: clear to auscultation bilaterally Cardio: COMMON NORMALS: regular rate, regular rhythm, S1 normal heart sound present and S2 normal heart sound present RATE: regular rate RHYTHM: regular rhythm HEART SOUNDS: S1 normal heart sound present and S2 normal heart sound present GI: COMMON NORMALS: Normal to inspection, nondistended, normoactive bowel sounds present and non-tender Extremity: COMMON NORMALS: no pedal edema OTHER: Severe peripheral muscle wasting, bilateral calves, bilateral arms, bilateral thighs, temporal muscle wasting Neuro: COMMON NORMALS: patient oriented x3 Psych: COMMON NORMALS: mental status grossly normal Data 09/19/22 04:28 09/19/22 04:28 A&P Assessment and plan (1) Acute and chronic respiratory failure with hypercapnia: - Likely multifactorial from pneumonia, and fluid overload and pulm edema and see acute exacerbation -sputum cultures in the past have grown Pseudomonas -Continue azithromycin -Continue cefepime 2 g every 12 hour for Pseudomonas coverage -Hold off on dialysis for today, possible dialysis tomorrow -Monitor respiratory status closely (2) Pneumonia: Patient has evidence of pneumonia on chest x-ray, left lower lobe Continue cefepime, azithromycin Sputum culture pending Blood culture pending. Wean oxygen as tolerated (3) Acute hyperkalemia: Patient presented with acute hyperkalemia. Currently resolved. She received calcium in the emergency department Continue to monitor labs. (4) End stage renal 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: Nephrology consultation for hemodialysis (5) COPD (chronic obstructive pulmonary disease): Budesonide Nebs every 6 hours RAAT, O2 protocol. Continue ABx, steroids for now. (6) Protein calorie malnutrition: - Consult speech,'s consult dietary (7) Physical deconditioning: - PT OT (8) Muscle wasting: - Dietary consult (9) Malnourished: (10) Congestive heart failure: Qualifiers: Heart failure chronicity: acute on chronic Heart failure type: unspecified Qualified Code(s): I50.9 - Heart failure, unspecified (11) ESRD on dialysis: (12) Anemia: Qualifiers: Anemia type: unspecified type Qualified Code(s): D64.9 - Anemia, unspecified (13) COPD exacerbation: - Received 125 mg Solu-Medrol today -Continue prednisone 40 twice daily Plan We will moved to general medical floors today s. Code Status: Full IVF: None DVT PPx: Heparin GI PPx: Protonix ABx: cefepime, Azithromycin Diet: CC Attestations Medical Necessity Statement*: Patient requires hospitalization for acute respiratory failure secondary fluid overload pneumonia, COPD Diagnoses Acute and chronic respiratory failure with hypercapnia J96.22 Pneumonia J18.9 Acute hyperkalemia E87.5 End stage renal 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 N18.6; Z99.2 COPD (chronic obstructive pulmonary disease) J44.9 Protein calorie malnutrition E46 Physical deconditioning R53.81 Muscle wasting M62.50 Malnourished E46 Congestive heart failure I50.9 Heart failure chronicity: acute on chronic Heart failure type: unspecified ESRD on dialysis N18.6; Z99.2 Anemia D64.9 Anemia type: unspecified type COPD exacerbation J44.1
[2022-09-19] MEDS: ropinirole 1 mg Tablet PO (21:10)
[2022-09-19] MEDS: sennosides-docusate Tablet 1 TAB PO (22:39)
[2022-09-20] VITALS (15 sets, daily range): BP systolic 125–184; BP diastolic 74–96; PULSE 69–86; RESP 15–26; TEMP 36.4–37; O2SAT 95–100
[2022-09-20] MEDS: ipratropium-albuterol 3 mL Neb INHALATION ×4 (01:32→21:07)
[2022-09-20 04:47] LABS: Basophils % 0.1 %; Hematocrit 27.5 % (37.0-47.0); Hemoglobin 8.1 g/dL (11.5-15.3); Lymphocytes # 1.1 10^3/uL (0.8-4.8); Lymphocytes % 13.3 %; Mean Corpuscular HGB Conc 29.5 g/dL (30.0-36.0); Mean Corpuscular Hemoglobin 30.6 pg (28.0-34.0); Mean Corpuscular Volume 103.8 fl (81-99); Mean Platelet Volume 9.6 fL (7.4-10.4); Monocytes # 0.3 10^3/uL (0.2-0.9); Monocytes % 3.1 %; Neutrophils # 6.67 10^3/uL (1.8-7.7); Neutrophils % 82.9 %; Nucleated Red Blood Cells % 0 %; Platelet Count 187 10^3/cmm (130-400); Red Blood Count 2.65 10^6/uL (4.1-5.3); Red Cell Distribution Width 18.6 % (12.1-15.1); White Blood Count 8.1 10^3/uL (4.0-10.0)
[2022-09-20] MEDS: levothyroxine 50 mcg Tablet PO (05:08)
[2022-09-20] MEDS: atorvastatin 40 mg Tablet PO (05:08)
[2022-09-20] MEDS: heparin 5,000 unit/mL INJ 1 mL 5000 UNIT SUBCUT ×2 (05:08→16:46)
[2022-09-20 05:17] LABS: Alanine Aminotransferase 18 U/L (0-33); Albumin Level 3.3 g/dL (3.5-5.2); Alkaline Phosphatase 86 U/L (35-105); Aspartate Amino Transferase 18 U/L (0-32); Blood Urea Nitrogen 58 mg/dL (8-23); C Reactive Protein 6.3 mg/L (0.0-4.9); Carbon Dioxide 26 mmol/L (22-29); Chloride 99 mmol/L (98-107); Globulin 2.5 g/dL (1.3-4.6); Glomerular Filtration Rate 8.1 mL/min (90-130); Glucose 148 mg/dL (65-115); Magnesium 2.6 mg/dL (1.7-2.3); Osmolality Calculated 309 mOsm/kg (285-295); Phosphorus 2.8 mg/dL (2.5-4.5); Sodium 140 mmol/L (136-145); Total Bilirubin 0.2 mg/dL (0.15-1.2); Total Protein 5.8 g/dL (6.6-8.7)
[2022-09-20] MEDS: LORazepam 0.5 mg Tablet PO (07:00)
--- NOTE | 2022-09-20 07:29 | P.PN_ITS ---
Subjective Subjective: seen and examined. weak, dec sob. no n/v/f/c/molina/d Medications: Reviewed: Yes Medication Review Details: Current Medications Acetaminophen (Acetaminophen 325 Mg Tablet) 650 mg PO Q6H PRN PRN Reason: MILD PAIN Hydrocodone Bitart/Acetaminophen (Hydrocodone-Acetaminophen 5-325 Mg Tablet) 1 tab PO BID PRN PRN Reason: moderate pain Last Admin: 09/19/22 22:23 Dose: 1 tab Albuterol/Ipratropium (Ipratropium-Albuterol 3 Ml Neb) 3 ml INHALATION Q6H.RESP [facility] Last Admin: 09/20/22 01:32 Dose: 3 ml Amlodipine Besylate (Amlodipine 5 Mg Tablet) 5 mg PO DAILY ON LICENSE OF [facility] Last Admin: 09/19/22 09:33 Dose: 5 mg Aspirin (Aspirin 81 Mg Ec Tablet) 81 mg PO DAILY@0830 ON LICENSE OF [facility] Last Admin: 09/19/22 08:08 Dose: 81 mg Atorvastatin Calcium (Atorvastatin 40 Mg Tablet) 40 mg PO QAM ON LICENSE OF [facility] Last Admin: 09/20/22 05:08 Dose: 40 mg Budesonide (Budesonide 0.5 Mg/2 Ml Neb) 0.5 mg INHALATION BID.RESPIRATORY ON LICENSE OF [facility] Last Admin: 09/19/22 19:30 Dose: 0.5 mg Buspirone HCl (Buspirone 10 Mg Tablet) 5 mg PO TID ON LICENSE OF [facility] Last Admin: 09/19/22 21:10 Dose: 5 mg Citalopram Hydrobromide (Citalopram 20 Mg Tablet) 40 mg PO DAILY@0830 ON LICENSE OF [facility] Last Admin: 09/19/22 08:08 Dose: 40 mg Heparin Sodium (Porcine) (Heparin 5,000 Unit/Ml Inj 1 Ml) 5,000 unit SUBCUT Q12H ON LICENSE OF [facility] Last Admin: 09/20/22 05:08 Dose: 5,000 unit Hydroxyzine Pamoate (Hydroxyzine 25 Mg Capsule) 50 mg PO QID PRN PRN Reason: Anxiety Last Admin: 09/19/22 08:08 Dose: 50 mg Azithromycin 500 mg/ Sodium (Chloride) 250 mls @ 250 mls/hr IV Q24H ON LICENSE OF [facility]; Protocol Last Infusion: 09/19/22 17:10 Dose: Infused Sodium Chloride (Sodium Chloride 0.9%) 1,000 mls @ 0 mls/hr IV .Q0M PRN PRN Reason: hypotension or symptomatic Sodium Chloride (Sodium Chloride 0.9%) 1,000 mls @ 0 mls/hr IV .Q0M PRN PRN Reason: hypotension or symptomatic Albumin Human (Albumin) 12.5 gm in 50 mls @ 60 mls/hr IV PRN PRN PRN Reason: Hypotension and/or symptomatic Cefepime HCl 1,000 mg/ Sodium (Chloride) 50 mls @ 100 mls/hr IV Q24H ON LICENSE OF [facility]; Protocol Last Infusion: 09/19/22 16:10 Dose: Infused Isosorbide Mononitrate (Isosorbide Mononitrate Er 60 Mg Tablet) 60 mg PO DAILY@0830 ON LICENSE OF [facility] Last Admin: 09/19/22 08:08 Dose: 60 mg Levothyroxine Sodium (Levothyroxine 50 Mcg Tablet) 50 mcg PO QAM ON LICENSE OF [facility] Last Admin: 09/20/22 05:08 Dose: 50 mcg Lorazepam (Lorazepam 0.5 Mg Tablet) 0.5 mg PO BID PRN PRN Reason: ANXIETY Last Admin: 09/20/22 07:00 Dose: 0.5 mg Losartan Potassium (Losartan 50 Mg Tablet) 100 mg PO DAILY ON LICENSE OF [facility] Last Admin: 09/19/22 08:03 Dose: 100 mg Metoprolol Succinate (Metoprolol Succinate Er (24 Hr) 50 Mg Tablet) 50 mg PO BID@0830,2100 ON LICENSE OF [facility] Last Admin: 09/19/22 21:11 Dose: 50 mg Montelukast Sodium (Montelukast Sodium 10 Mg Tablet) 10 mg PO DAILY@0830 ON LICENSE OF [facility] Last Admin: 09/19/22 08:08 Dose: 10 mg Ondansetron HCl (Ondansetron 2 Mg/Ml Sdv 2 Ml) 4 mg IVP Q6H PRN PRN Reason: NAUSEA AND VOMITING Pantoprazole Sodium (Pantoprazole Dr 40 Mg Tablet) 40 mg PO DAILY ON LICENSE OF [facility] Last Admin: 09/19/22 08:03 Dose: 40 mg Prednisone (Prednisone 20 Mg Tablet) 20 mg PO BID ON LICENSE OF [facility] Last Admin: 09/19/22 17:48 Dose: 20 mg Ropinirole HCl (Ropinirole 1 Mg Tablet) 1 mg PO BEDTIME ON LICENSE OF [facility] Last Admin: 09/19/22 21:10 Dose: 1 mg Senna/Docusate Sodium (Sennosides-Docusate Tablet) 1 tab PO BID ON LICENSE OF [facility] Sevelamer Carbonate (Sevelamer 800 Mg Tablet) 800 mg PO TIDWM ON LICENSE OF [facility] Last Admin: 09/19/22 17:48 Dose: 800 mg Vitals/I&O/Wt Last Vital Signs Temp 98.6 F 09/20/22 04:00 Pulse 77 09/20/22 05:22 Resp 26 H 09/20/22 04:00 BP 170/86 09/20/22 04:00 Pulse Ox 98 09/20/22 04:00 O2 Del Method 09/20/22 04:00 O2 Flow Rate 3 09/20/22 04:00 FiO2 30 09/18/22 07:36 09/19/22 09/20/22 09/20/22 22:59 06:59 14:59 Intake Total 600 / 1040 540 / 1580 Balance 600 / 1040 540 / 1580 Weight last 48 hrs Weight 31.162 kg Weight 31.978 kg Weight 31.7 kg Physical Exam Narrative: patient seen on dialysis, comfortable, NARD vs noted- bp elevated heent- nc/ar, eomi neck supple rt sided PC lung dull bases heart reg abd soft, nt, nd, + bs ex no edema neuro- a,a, o x 3 Data 09/20/22 04:33 09/20/22 04:33 A&P Assessment and plan (1) End stage renal 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: 67 yr old female 1. eSRD- s/p HD for 3 days. laat was 09/18/22 -repeat HD now w/ volume removal as toleratedl -normal phos 2. PNA- renal dose abx 3. anemia- hgb down to 8.1- monitor for bleeding - HAIM -check iron studies 4. hypertension- monitor closely as she has dropped her BP on Dialysis 5. hypercapneic resp acidosis of COPD 6. on losartan- if k is an issue- may dec dose or add lokelma/ veltassa on non dialysis days seen and examined w/ RN- telehealth visit time spent 25 min Plan as above- HD now Attestations Medical Necessity Statement*: sob, pna, esrd, chf Time Spent in Patient Care: 16 - 35 minutes (>than 50% of time spent in c ounselling and/or direct pt care on unit) . Coding Level of Care Code Acute Code for Chg Fwd Diagnoses End stage renal 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 N18.6; Z99.2
--- NOTE | 2022-09-20 07:39 | PC.HD ---
Previous treatments in ICU resulted in patient dropping her BP almost immediately upon treatment initiation. Prior to initiation, patient would be hypertensive up to 180s SBP, but treatment initiation caused her BP to drop, sometimes to the 60s-70s systolic, necessitating immediate administration of levophed, which kept her BP in an acceptable range throughout treatment, and allowing UF goal to be met. Orders for albumin up to 150 mL given. Due to patient's history of BP drops during treatment, albumin was started at treatment initiation, despite BP of 184/96. Fringing Machine Operator is aware. If BP does not drop, albumin will be stopped. Will continue to closely monitor BP.
[2022-09-20] MEDS: budesonide 0.5 mg/2 mL Neb INHALATION ×2 (08:03→21:07)
[2022-09-20] MEDS: HYDROcodone-acetaminophen 5-325 mg Tablet 1 TAB PO ×2 (10:34→21:19)
[2022-09-20] MEDS: hyDROXYzine 25 mg Capsule 50 MG PO ×2 (11:11→16:45)
[2022-09-20] MEDS: metoprolol succinate ER (24 HR) 50 mg Tablet PO ×2 (11:12→21:20)
[2022-09-20] MEDS: montelukast sodium 10 mg Tablet PO (11:12)
[2022-09-20] MEDS: sennosides-docusate Tablet 1 TAB PO ×2 (11:12→17:32)
[2022-09-20] MEDS: sevelamer 800 mg Tablet PO ×3 (11:12→21:20)
[2022-09-20] MEDS: citalopram 20 mg Tablet 40 MG PO (11:13)
[2022-09-20] MEDS: amlodipine 5 mg Tablet PO (11:13)
[2022-09-20] MEDS: aspirin 81 mg EC Tablet PO (11:13)
[2022-09-20] MEDS: losartan 50 mg Tablet 100 MG PO (11:13)
[2022-09-20] MEDS: pantoprazole DR 40 mg Tablet PO (11:13)
[2022-09-20] MEDS: BuSPIRONE 10 mg Tablet 5 MG PO ×3 (11:14→21:20)
[2022-09-20] MEDS: predniSONE 20 mg Tablet PO ×2 (11:14→17:32)
[2022-09-20] MEDS: isosorbide mononitrate ER 60 mg Tablet PO (11:19)
--- NOTE | 2022-09-20 11:24 | PC.SLP ---
Speech therapy attempted patient was not in the room when therapist arrived at 9:40am.
[2022-09-20 11:35] LABS: 25 Hydroxy Vitamin D 63 ng/mL (30-100); Procalcitonin 1.46 ng/mL (0-0.5)
[2022-09-20] MEDS: albumin 12.5 GM/50 ML VIAL IV ×2 (11:43→11:44)
[2022-09-20] MEDS: heparin, porcine 1,000 unit/mL INJ 10 mL 10000 UNIT INTRACATH (11:44)
[2022-09-20 11:47] LABS: Ferritin 837 ng/mL (15-150); Iron 76 ug/dL (37-145); Percent Saturation 60.8 % (20-50); Total Iron Binding Capacity 125 mcg/dl; Unsaturated Iron Binding 49 ug/dL (112-347)
[2022-09-20 12:00] LABS: NT Pro B Type Natriuretic Pept > 70000 pg/mL (0-125)
--- NOTE | 2022-09-20 12:49 | P.PN_ITS ---
Subjective Subjective: seen today no acute events overnight Vitals/I&O/Wt Last Vital Signs Temp 98.1 F 09/20/22 11:19 Pulse 74 09/20/22 11:19 Resp 16 09/20/22 11:19 BP 161/75 09/20/22 11:19 Pulse Ox 98 09/20/22 11:19 O2 Del Method 09/20/22 11:19 O2 Flow Rate 3 09/20/22 11:10 FiO2 30 09/18/22 07:36 09/19/22 09/20/22 09/20/22 22:59 06:59 14:59 Intake Total 600 / 1040 540 / 1580 601 / 601 Output Total 2356 / 2356 Balance 600 / 1040 540 / 1580 -1755 / -1755 Weight last 48 hrs Weight 29.3 kg Weight 31.162 kg Weight 31.978 kg Weight 31.7 kg Physical Exam Narrative: patient seen on dialysis, comfortable, NARD vs noted- bp elevated heent- nc/ar, eomi neck supple rt sided PC lung dull bases heart reg abd soft, nt, nd, + bs ex no edema neuro- a,a, o x 3 Data 09/20/22 04:33 09/20/22 04:33 A&P Assessment and plan (1) Acute and chronic respiratory failure with hypercapnia: - Likely multifactorial from pneumonia, and fluid overload and pulm edema and see acute exacerbation -sputum cultures in the past have grown Pseudomonas -Continue azithromycin -Continue cefepime 2 g every 12 hour for Pseudomonas coverage -Pt getting dialyzed today Next dialysis session possibly in AM. Nephro on board and following. -Monitor respiratory status closely (2) Pneumonia: Patient has evidence of pneumonia on chest x-ray, left lower lobe Continue cefepime, azithromycin Sputum culture pending Blood culture pending. Wean oxygen as tolerated (3) Acute hyperkalemia: Patient presented with acute hyperkalemia. Currently resolved. She received calcium in the emergency department Continue to monitor labs. (4) End stage renal 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: Nephrology consultation for hemodialysis (5) COPD (chronic obstructive pulmonary disease): Budesonide Nebs every 6 hours RAAT, O2 protocol. Continue ABx, steroids for now. (6) Protein calorie malnutrition: - Consult speech,'s consult dietary (7) Physical deconditioning: - PT OT (8) Muscle wasting: - Dietary consult (9) Malnourished: (10) Congestive heart failure: Qualifiers: Heart failure chronicity: acute on chronic Heart failure type: unspecified Qualified Code(s): I50.9 - Heart failure, unspecified (11) ESRD on dialysis: (12) Anemia: Qualifiers: Anemia type: unspecified type Qualified Code(s): D64.9 - Anemia, unspecified (13) COPD exacerbation: - Received 125 mg Solu-Medrol today -Continue prednisone 40 twice daily Plan Will await cultures prior to discharge. Procalcitonin is 1.42. Code Status: Full IVF: None DVT PPx: Heparin GI PPx: Protonix ABx: cefepime, Azithromycin Diet: CC Attestations Medical Necessity Statement*: Patient requires hospitalization for acute respiratory failure secondary fluid overload pneumonia, COPD Diagnoses Acute and chronic respiratory failure with hypercapnia J96.22 Pneumonia J18.9 Acute hyperkalemia E87.5 End stage renal 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 N18.6; Z99.2 COPD (chronic obstructive pulmonary disease) J44.9 Protein calorie malnutrition E46 Physical deconditioning R53.81 Muscle wasting M62.50 Malnourished E46 Congestive heart failure I50.9 Heart failure chronicity: acute on chronic Heart failure type: unspecified ESRD on dialysis N18.6; Z99.2 Anemia D64.9 Anemia type: unspecified type COPD exacerbation J44.1
--- NOTE | 2022-09-20 18:37 | PC.NURSE ---
Patient is currently resting in bed. Pt has complained of pain during this shift and this nurse has given meds per MAR. Pt has no other needs at this time. Call light and table are within reach.
[2022-09-20] MEDS: ropinirole 1 mg Tablet PO (21:20)
[2022-09-21] VITALS (14 sets, daily range): BP systolic 147–172; BP diastolic 64–85; PULSE 66–80; RESP 15–18; TEMP 36.5–36.7; O2SAT 95–100
[2022-09-21] MEDS: cefepime 1,000 MG in sodium chloride 0.9% (plus) 50 ML 100 MG IV ×2 (00:54→22:02)
[2022-09-21] MEDS: azithromycin 500 MG in sodium chloride 0.9% 250 ML 250 MG IV ×2 (01:31→20:26)
[2022-09-21] MEDS: ipratropium-albuterol 3 mL Neb INHALATION ×4 (01:34→20:30)
[2022-09-21] MEDS: heparin 5,000 unit/mL INJ 1 mL 5000 UNIT SUBCUT ×2 (04:09→16:14)
[2022-09-21] MEDS: atorvastatin 40 mg Tablet PO (05:15)
[2022-09-21] MEDS: levothyroxine 50 mcg Tablet PO (05:15)
[2022-09-21 06:10] LABS: Hematocrit 24.6 % (37.0-47.0); Hemoglobin 7.5 g/dL (11.5-15.3); Lymphocytes # 1.3 10^3/uL (0.8-4.8); Lymphocytes % 16.9 %; Mean Corpuscular HGB Conc 30.5 g/dL (30.0-36.0); Mean Corpuscular Hemoglobin 32.1 pg (28.0-34.0); Mean Corpuscular Volume 105.1 fl (81-99); Mean Platelet Volume 9.9 fL (7.4-10.4); Monocytes # 0.2 10^3/uL (0.2-0.9); Monocytes % 3.1 %; Neutrophils # 6.04 10^3/uL (1.8-7.7); Neutrophils % 79.2 %; Nucleated Red Blood Cells % 0 %; Platelet Count 154 10^3/cmm (130-400); Red Blood Count 2.34 10^6/uL (4.1-5.3); Red Cell Distribution Width 18.4 % (12.1-15.1); White Blood Count 7.6 10^3/uL (4.0-10.0)
[2022-09-21 06:42] LABS: Procalcitonin 0.91 ng/mL (0-0.5)
[2022-09-21 06:54] LABS: Albumin Level 3.2 g/dL (3.5-5.2); Alkaline Phosphatase 77 U/L (35-105); Blood Urea Nitrogen 37 mg/dL (8-23); Calcium 8.7 mg/dL (8.5-10.5); Carbon Dioxide 23 mmol/L (22-29); Chloride 100 mmol/L (98-107); Globulin 2.4 g/dL (1.3-4.6); Glomerular Filtration Rate 12.7 mL/min (90-130); Glucose 138 mg/dL (65-115); Magnesium 2.2 mg/dL (1.7-2.3); Osmolality Calculated 297 mOsm/kg (285-295); Phosphorus 1.7 mg/dL (2.5-4.5); Sodium 138 mmol/L (136-145); Total Bilirubin 0.2 mg/dL (0.15-1.2); Total Protein 5.6 g/dL (6.6-8.7)
[2022-09-21 07:03] LABS: Alanine Aminotransferase 18 U/L (0-33); Anion Gap 19.5 (5-19); Aspartate Amino Transferase 30 U/L (0-32); Potassium 4.5 mmol/L (3.5-5.1)
[2022-09-21] MEDS: budesonide 0.5 mg/2 mL Neb INHALATION ×2 (08:14→20:30)
[2022-09-21] MEDS: BuSPIRONE 10 mg Tablet 5 MG PO ×3 (08:24→20:26)
[2022-09-21] MEDS: hyDROXYzine 25 mg Capsule 50 MG PO ×3 (08:24→18:24)
[2022-09-21] MEDS: sevelamer 800 mg Tablet PO (08:24)
[2022-09-21] MEDS: losartan 50 mg Tablet 100 MG PO (08:24)
[2022-09-21] MEDS: sennosides-docusate Tablet 1 TAB PO ×2 (08:24→18:24)
[2022-09-21] MEDS: montelukast sodium 10 mg Tablet PO (08:25)
[2022-09-21] MEDS: predniSONE 20 mg Tablet PO ×2 (08:25→18:24)
[2022-09-21] MEDS: pantoprazole DR 40 mg Tablet PO (08:25)
[2022-09-21] MEDS: metoprolol succinate ER (24 HR) 50 mg Tablet PO ×2 (08:25→20:26)
[2022-09-21] MEDS: HYDROcodone-acetaminophen 5-325 mg Tablet 1 TAB PO ×2 (08:25→18:24)
[2022-09-21] MEDS: citalopram 20 mg Tablet 40 MG PO (08:25)
[2022-09-21] MEDS: amlodipine 5 mg Tablet PO (08:25)
[2022-09-21] MEDS: isosorbide mononitrate ER 60 mg Tablet PO (08:26)
[2022-09-21] MEDS: aspirin 81 mg EC Tablet PO (08:26)
--- NOTE | 2022-09-21 10:23 | P.PN_ITS ---
Subjective Subjective: feels better. still weak and sob. no n/v/f/c/molina/d/leg pains. rt arm wound tender and bleeding Medications: Reviewed: Yes Medication Review Details: Current Medications Acetaminophen (Acetaminophen 325 Mg Tablet) 650 mg PO Q6H PRN PRN Reason: MILD PAIN Hydrocodone Bitart/Acetaminophen (Hydrocodone-Acetaminophen 5-325 Mg Tablet) 1 tab PO BID PRN PRN Reason: moderate pain Last Admin: 09/21/22 08:25 Dose: 1 tab Albuterol/Ipratropium (Ipratropium-Albuterol 3 Ml Neb) 3 ml INHALATION Q6H.RESP [facility] Last Admin: 09/21/22 08:14 Dose: 3 ml Amlodipine Besylate (Amlodipine 5 Mg Tablet) 5 mg PO DAILY [facility] Last Admin: 09/21/22 08:25 Dose: 5 mg Aspirin (Aspirin 81 Mg Ec Tablet) 81 mg PO DAILY@0830 [facility] Last Admin: 09/21/22 08:26 Dose: 81 mg Atorvastatin Calcium (Atorvastatin 40 Mg Tablet) 40 mg PO QAM [facility] Last Admin: 09/21/22 05:15 Dose: 40 mg Budesonide (Budesonide 0.5 Mg/2 Ml Neb) 0.5 mg INHALATION BID.RESPIRATORY [facility] Last Admin: 09/21/22 08:14 Dose: 0.5 mg Buspirone HCl (Buspirone 10 Mg Tablet) 5 mg PO TID [facility] Last Admin: 09/21/22 08:24 Dose: 5 mg Citalopram Hydrobromide (Citalopram 20 Mg Tablet) 40 mg PO DAILY@0830 [facility] Last Admin: 09/21/22 08:25 Dose: 40 mg Glycerin (Glycerin Adult Supp) 1 each [place] DAILY PRN PRN Reason: CONSTIPATION Heparin Sodium (Porcine) (Heparin 5,000 Unit/Ml Inj 1 Ml) 5,000 unit SUBCUT Q12H [facility] Last Admin: 09/21/22 04:09 Dose: 5,000 unit Hydroxyzine Pamoate (Hydroxyzine 25 Mg Capsule) 50 mg PO QID PRN PRN Reason: Anxiety Last Admin: 09/21/22 08:24 Dose: 50 mg Azithromycin 500 mg/ Sodium (Chloride) 250 mls @ 250 mls/hr IV Q24H [facility]; Protocol Last Infusion: 09/21/22 02:41 Dose: Infused Sodium Chloride (Sodium Chloride 0.9%) 1,000 mls @ 0 mls/hr IV .Q0M PRN PRN Reason: hypotension or symptomatic Sodium Chloride (Sodium Chloride 0.9%) 1,000 mls @ 0 mls/hr IV .Q0M PRN PRN Reason: hypotension or symptomatic Albumin Human (Albumin) 12.5 gm in 50 mls @ 60 mls/hr IV PRN PRN PRN Reason: Hypotension and/or symptomatic Last Infusion: 09/20/22 12:33 Dose: Infused Cefepime HCl 1,000 mg/ Sodium (Chloride) 50 mls @ 100 mls/hr IV Q24H [facility]; Protocol Last Infusion: 09/21/22 01:32 Dose: Infused Isosorbide Mononitrate (Isosorbide Mononitrate Er 60 Mg Tablet) 60 mg PO DAILY@0830 [facility] Last Admin: 09/21/22 08:26 Dose: 60 mg Levothyroxine Sodium (Levothyroxine 50 Mcg Tablet) 50 mcg PO QAM [facility] Last Admin: 09/21/22 05:15 Dose: 50 mcg Losartan Potassium (Losartan 50 Mg Tablet) 100 mg PO DAILY [facility] Last Admin: 09/21/22 08:24 Dose: 100 mg Metoprolol Succinate (Metoprolol Succinate Er (24 Hr) 50 Mg Tablet) 50 mg PO BID@0830,2100 [facility] Last Admin: 09/21/22 08:25 Dose: 50 mg Montelukast Sodium (Montelukast Sodium 10 Mg Tablet) 10 mg PO DAILY@0830 [facility] Last Admin: 09/21/22 08:25 Dose: 10 mg Ondansetron HCl (Ondansetron 2 Mg/Ml Sdv 2 Ml) 4 mg IVP Q6H PRN PRN Reason: NAUSEA AND VOMITING Pantoprazole Sodium (Pantoprazole Dr 40 Mg Tablet) 40 mg PO DAILY [facility] Last Admin: 09/21/22 08:25 Dose: 40 mg Phenyleph/Shark Oil/Min Oil/Petrol (Phenyleph-Mineral Oil-Petrolat Oint 28 Gm) 1 applic TOPICAL QID PRN PRN Reason: HEMORRHOIDS Prednisone (Prednisone 20 Mg Tablet) 20 mg PO BID [facility] Last Admin: 09/21/22 08:25 Dose: 20 mg Ropinirole HCl (Ropinirole 1 Mg Tablet) 1 mg PO BEDTIME [facility] Last Admin: 09/20/22 21:20 Dose: 1 mg Senna/Docusate Sodium (Sennosides-Docusate Tablet) 1 tab PO BID [facility] Last Admin: 09/21/22 08:24 Dose: 1 tab Sevelamer Carbonate (Sevelamer 800 Mg Tablet) 800 mg PO TIDWM [facility] Last Admin: 09/21/22 08:24 Dose: 800 mg Vitals/I&O/Wt Last Vital Signs Temp 97.9 F 09/21/22 08:00 Pulse 80 09/21/22 08:23 Resp 16 09/21/22 08:00 BP 172/83 09/21/22 08:24 Pulse Ox 96 09/21/22 08:00 O2 Del Method 09/21/22 08:00 O2 Flow Rate 3 09/21/22 08:00 FiO2 30 09/18/22 07:36 09/20/22 09/21/22 09/21/22 22:59 06:59 14:59 Intake Total 660 / 1501 420 / 1921 Output Total 0 / 2356 Balance 660 / -855 420 / -435 Weight last 48 hrs Weight 31.326 kg Weight 29.3 kg Weight 31.162 kg Physical Exam Narrative: patient seen and examined, comfortable, NARD vs noted- bp elevated heent- nc/ar, eomi neck supple rt sided PC basal dullness and crackles heart reg abd soft, nt, nd, + bs ex no edema in legs rt arm wrapped. tender, bruised neuro- a,a, o x 3 Data 09/21/22 06:00 09/21/22 06:00 A&P Assessment and plan (1) End stage renal 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: 67 yr old female 1. eSRD- s/p HD yesterday -repeat HD tomorrow -normal phos -hold sevelamer 2. PNA- renal dose abx 3. anemia- hgb down to 7.5 iron sat 61% ferritin 837- no iron -use HAIM -transfuse 1 u prbc today orcan tomorrow on dialysis -monitor for bleeding 4. hypertension- monitor closely as she has dropped her BP on Dialysis -check echo 5. hypercapneic resp acidosis of COPD 6. monitor potassium on losartan- seen and examined w/ RN- telehealth visit time spent 25 + min Plan as above- HD and abx. needs rehab Attestations Medical Necessity Statement*: per medicine Time Spent in Patient Care: 16 - 35 minutes (>than 50% of time spent in counselling and/or direct pt care on unit) . Coding Level of Care Code Acute Code for Chg Fwd Diagnoses End stage renal 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 N18.6; Z99.2
--- NOTE | 2022-09-21 10:35 | USCV_ITS ---
Hali James Age: 67 Gender: F : 1955 Exam Date: 09/21/2022 15:26 Ordering Phys: Yemi Ramos MD Technologist: Constantino Garsia [place]am [place] [facility] [place]: htn, chf BP: 147 / 78 HR: 69 Rhythm: Sinus Technical Quality: Adequate MEASUREMENTS (Male / Female) Normal Values 2D ECHO LV Diastolic Diameter PLAX 4.8 cm 4.2 - 5.9 / 3.9 - 5.3 cm LV Systolic Diameter PLAX 3.0 cm IVS Diastolic Thickness 0.8 cm 0.6 - 1.0 / 0.6 - 0.9 cm IVS Systolic Thickness 0.9 cm LVPW Diastolic Thickness 1.1 cm 0.6 - 1.0 / 0.6 - 0.9 cm LVPW Systolic Thickness 1.6 cm LVOT Diameter 2.0 cm LV Ejection Fraction 2D Teich 68.5 % LV Ejection Fraction MOD 2C 73.4 % LV Ejection Fraction 2C AL 73.5 % LA Diameter 3.2 cm LA Width 3.2 cm LA Height 5.1 cm RA Width 3.2 cm RA Height 4.4 cm Aorta at Sinotubular Diameter 1.8 cm IVC Diameter 1.1 cm M-MODE Aortic Annulus Diameter 2.7 cm MV E Point Septal Separation 0.4 cm DOPPLER AV Peak Velocity 107.0 cm/s LVOT Peak Velocity 89.0 cm/s AV Area Cont Eq vti 2.4 cm squared AV Area Cont Eq pk 2.6 cm squared MV Peak Velocity 92.0 cm/s MV Area PHT 4.6 cm squared Mitral E to A Ratio 0.9 MV E' Velocity 47.0 cm/s Mitral E to MV E' Ratio 10.4 Mitral E to LV E' Lateral Ratio 8.0 Mitral E to LV E' Septal Ratio 15.2 TR Peak Velocity 162.9 cm/s TR Peak Gradient 10.6 mmHg TR Mean Velocity 126.3 cm/s TR Mean Gradient 6.6 mmHg TR Velocity Time Integral 35.1 cm Right Atrial Pressure 3.0 mmHg Pulmonary Artery Systolic Pressu 13.6 mmHg PV Peak Velocity 79.0 cm/s RV Acceleration Time 0.1 s RV Ejection Time 0.3 s RV AcT/ET 0.3 FINDINGS Left Ventricle Normal left ventricular size, systolic function and wall thickness, with no regional wall motion abnormalities. Left ventricular ejection fraction is estimated at 60 %. Grade I/IV diastolic dysfunction (abnormal relaxation filling pattern), normal to mildly elevated filling pressures. Right Ventricle The right ventricle is normal in size and function. Right Atrium The right atrium is normal in size. Left Atrium The left atrium is normal in size. Mitral Valve Structurally normal mitral valve without significant stenosis or prolapse. Moderate mitral regurgitation. Aortic Valve Moderate aortic valve calcification. No aortic valve stenosis. . Trace aortic regurgitation. Tricuspid Valve Structurally normal tricuspid valve without significant stenosis or regurgitation. Pulmonary artery systolic pressure is normal. Pulmonic Valve Structurally normal pulmonic valve without significant stenosis. There is no pulmonic regurgitation. Pericardium Normal pericardium without effusion. Aorta Normal ascending aorta dimension. IVC The inferior vena cava appears normal. CONCLUSIONS 1-Normal left ventricular size, systolic function and wall thickness, with no regional wall motion abnormalities. Left ventricular ejection fraction is estimated at 60 %. Grade I/IV diastolic dysfunction (abnormal relaxation filling pattern), normal to mildly elevated filling pressures. 2-Structurally normal mitral valve without significant stenosis or prolapse. Moderate mitral regurgitation. 3-Moderate aortic valve calcification. No aortic valve stenosis. . Trace aortic regurgitation. 4-There is no pericardial effusion. 5-Right atrial pressure is around 5 mm of mercury. Ruperto Corea MD (Electronically Signed) Final Date: 21 September 2022 17:32 S
[2022-09-21] MEDS: epoetin alfa 10,000 unit/mL INJ 10000 UNIT SUBCUT (11:40)
--- NOTE | 2022-09-21 12:34 | PC.SOCIAL ---
IMM Update pg 2 of IMM updated and reviewed w/ patient. Copy provided and copy in chart dated and initialed.
--- NOTE | 2022-09-21 13:51 | PM.PN ---
Subjective Subjective: Seen this AM. Resting comfortably in bed starting to feel better. Procalcitonin still elevated Vitals/I&O/Wt Last Vital Signs Temp 97.7 F 09/21/22 12:00 Pulse 70 09/21/22 12:00 Resp 15 09/21/22 12:00 BP 147/78 09/21/22 12:00 Pulse Ox 98 09/21/22 12:00 O2 Del Method 09/21/22 08:00 O2 Flow Rate 3 09/21/22 08:00 FiO2 30 09/18/22 07:36 09/20/22 09/21/22 09/21/22 22:59 06:59 14:59 Intake Total 660 / 1501 420 / 1921 120 / 120 Output Total 0 / 2356 Balance 660 / -855 420 / -435 120 / 120 Weight last 48 hrs Weight 31.326 kg Weight 29.3 kg Weight 31.162 kg Physical Exam Narrative: patient seen on dialysis, comfortable, NARD vs noted- bp elevated heent- nc/ar, eomi neck supple rt sided PC lung dull bases heart reg abd soft, nt, nd, + bs ex no edema neuro- a,a, o x 3 Data 09/21/22 06:00 09/21/22 06:00 Micro: Microbiology 09/16/22 11:30 Blood Culture - Final Blood NO GROWTH AFTER 5 DAYS 09/16/22 11:35 Blood Culture - Final Blood NO GROWTH AFTER 5 DAYS A&P Assessment and plan (1) Acute and chronic respiratory failure with hypercapnia: - Likely multifactorial from pneumonia, and fluid overload and pulm edema and see acute exacerbation -sputum cultures in the past have grown Pseudomonas -Continue azithromycin -Continue cefepime 2 g every 12 hour for Pseudomonas coverage Nephro on board and following. -Monitor respiratory status closely (2) Pneumonia: Patient has evidence of pneumonia on chest x-ray, left lower lobe Continue cefepime, azithromycin Sputum culture pending Blood culture pending. Wean oxygen as tolerated (3) Acute hyperkalemia: Patient presented with acute hyperkalemia. Currently resolved. She received calcium in the emergency department Continue to monitor labs. (4) End stage renal 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: Nephrology consultation for hemodialysis (5) COPD (chronic obstructive pulmonary disease): Budesonide Nebs every 6 hours RAAT, O2 protocol. Continue ABx, steroids for now. (6) Protein calorie malnutrition: - Consult speech,'s consult dietary (7) Physical deconditioning: - PT OT (8) Muscle wasting: - Dietary consult (9) Malnourished: (10) Congestive heart failure: Qualifiers: Heart failure chronicity: acute on chronic Heart failure type: unspecified Qualified Code(s): I50.9 - Heart failure, unspecified (11) ESRD on dialysis: (12) Anemia: Qualifiers: Anemia type: unspecified type Qualified Code(s): D64.9 - Anemia, unspecified (13) COPD exacerbation: - Received 125 mg Solu-Medrol today -Continue prednisone 40 twice daily Plan Will await cultures prior to discharge. Procalcitonin is 1.42. Code Status: Full IVF: None DVT PPx: Heparin GI PPx: Protonix ABx: cefepime, Azithromycin Diet: CC Attestations Medical Necessity Statement*: Patient requires hospitalization for acute respiratory failure secondary fluid overload pneumonia, COPD Diagnoses Acute and chronic respiratory failure with hypercapnia J96.22 Pneumonia J18.9 Acute hyperkalemia E87.5 End stage renal 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 N18.6; Z99.2 COPD (chronic obstructive pulmonary disease) J44.9 Protein calorie malnutrition E46 Physical deconditioning R53.81 Muscle wasting M62.50 Malnourished E46 Congestive heart failure I50.9 Heart failure chronicity: acute on chronic Heart failure type: unspecified ESRD on dialysis N18.6; Z99.2 Anemia D64.9 Anemia type: unspecified type COPD exacerbation J44.1
--- NOTE | 2022-09-21 14:09 | PC.SLP ---
Per nurse, no difficulty with the food. Patient reports she does not like the taste.
[2022-09-21] MEDS: ropinirole 1 mg Tablet PO (20:26)
[2022-09-22] VITALS (17 sets, daily range): BP systolic 102–185; BP diastolic 70–101; PULSE 61–82; RESP 15–18; TEMP 36.4–37; O2SAT 91–100
[2022-09-22] MEDS: ipratropium-albuterol 3 mL Neb INHALATION ×4 (02:18→20:42)
[2022-09-22] MEDS: heparin 5,000 unit/mL INJ 1 mL 5000 UNIT SUBCUT ×2 (03:57→16:48)
[2022-09-22] MEDS: atorvastatin 40 mg Tablet PO (05:05)
[2022-09-22] MEDS: levothyroxine 50 mcg Tablet PO (05:05)
[2022-09-22 05:27] LABS: Hematocrit 25.1 % (37.0-47.0); Hemoglobin 7.5 g/dL (11.5-15.3); Lymphocytes # 1.8 10^3/uL (0.8-4.8); Lymphocytes % 17.2 %; Mean Corpuscular HGB Conc 29.9 g/dL (30.0-36.0); Mean Corpuscular Hemoglobin 31.4 pg (28.0-34.0); Mean Platelet Volume 9.5 fL (7.4-10.4); Monocytes # 0.4 10^3/uL (0.2-0.9); Monocytes % 3.7 %; Neutrophils # 7.95 10^3/uL (1.8-7.7); Neutrophils % 77.8 %; Nucleated Red Blood Cells % 0 %; Platelet Count 139 10^3/cmm (130-400); Red Blood Count 2.39 10^6/uL (4.1-5.3); Red Cell Distribution Width 18.5 % (12.1-15.1); White Blood Count 10.2 10^3/uL (4.0-10.0)
[2022-09-22 05:53] LABS: Alanine Aminotransferase 17 U/L (0-33); Albumin Level 3.4 g/dL (3.5-5.2); Alkaline Phosphatase 69 U/L (35-105); Anion Gap 16.8 (5-19); Aspartate Amino Transferase 17 U/L (0-32); Blood Urea Nitrogen 67 mg/dL (8-23); Carbon Dioxide 27 mmol/L (22-29); Chloride 100 mmol/L (98-107); Globulin 2.2 g/dL (1.3-4.6); Glomerular Filtration Rate 8.9 mL/min (90-130); Glucose 115 mg/dL (65-115); Magnesium 2.6 mg/dL (1.7-2.3); Osmolality Calculated 308 mOsm/kg (285-295); Phosphorus 1.8 mg/dL (2.5-4.5); Potassium 4.8 mmol/L (3.5-5.1); Sodium 139 mmol/L (136-145); Total Bilirubin 0.3 mg/dL (0.15-1.2); Total Protein 5.6 g/dL (6.6-8.7)
[2022-09-22] MEDS: budesonide 0.5 mg/2 mL Neb INHALATION ×2 (08:27→20:42)
--- NOTE | 2022-09-22 08:35 | P.PN_ITS ---
Subjective Subjective: feels better. however very weak. and states her weight is decreasing. poor appetite, weak, + cough. no n/v/molina/d. no sob at rest Medications: Reviewed: Yes Medication Review Details: Current Medications Acetaminophen (Acetaminophen 325 Mg Tablet) 650 mg PO Q6H PRN PRN Reason: MILD PAIN Hydrocodone Bitart/Acetaminophen (Hydrocodone-Acetaminophen 5-325 Mg Tablet) 1 tab PO BID PRN PRN Reason: moderate pain Last Admin: 09/21/22 18:24 Dose: 1 tab Albuterol/Ipratropium (Ipratropium-Albuterol 3 Ml Neb) 3 ml INHALATION Q6H.RESP REPLACED BY [facility] Last Admin: 09/22/22 08:27 Dose: 3 ml Amlodipine Besylate (Amlodipine 5 Mg Tablet) 5 mg PO DAILY REPLACED BY [facility] Last Admin: 09/21/22 08:25 Dose: 5 mg Aspirin (Aspirin 81 Mg Ec Tablet) 81 mg PO DAILY@0830 REPLACED BY [facility] Last Admin: 09/21/22 08:26 Dose: 81 mg Atorvastatin Calcium (Atorvastatin 40 Mg Tablet) 40 mg PO QAM REPLACED BY [facility] Last Admin: 09/22/22 05:05 Dose: 40 mg Budesonide (Budesonide 0.5 Mg/2 Ml Neb) 0.5 mg INHALATION BID.RESPIRATORY REPLACED BY [facility] Last Admin: 09/22/22 08:27 Dose: 0.5 mg Buspirone HCl (Buspirone 10 Mg Tablet) 5 mg PO TID REPLACED BY [facility] Last Admin: 09/21/22 20:26 Dose: 5 mg Citalopram Hydrobromide (Citalopram 20 Mg Tablet) 40 mg PO DAILY@0830 REPLACED BY [facility] Last Admin: 09/21/22 08:25 Dose: 40 mg Glycerin (Glycerin Adult Supp) 1 each LA DAILY PRN PRN Reason: CONSTIPATION Heparin Sodium (Porcine) (Heparin 5,000 Unit/Ml Inj 1 Ml) 5,000 unit SUBCUT Q12H REPLACED BY [facility] Last Admin: 09/22/22 03:57 Dose: 5,000 unit Hydroxyzine Pamoate (Hydroxyzine 25 Mg Capsule) 50 mg PO QID PRN PRN Reason: Anxiety Last Admin: 09/21/22 18:24 Dose: 50 mg Azithromycin 500 mg/ Sodium (Chloride) 250 mls @ 250 mls/hr IV Q24H REPLACED BY [facility]; Protocol Last Infusion: 09/21/22 21:46 Dose: Infused Sodium Chloride (Sodium Chloride 0.9%) 1,000 mls @ 0 mls/hr IV .Q0M PRN PRN Reason: hypotension or symptomatic Sodium Chloride (Sodium Chloride 0.9%) 1,000 mls @ 0 mls/hr IV .Q0M PRN PRN Reason: hypotension or symptomatic Albumin Human (Albumin) 12.5 gm in 50 mls @ 60 mls/hr IV PRN PRN PRN Reason: Hypotension and/or symptomatic Last Infusion: 09/20/22 12:33 Dose: Infused Cefepime HCl 1,000 mg/ Sodium (Chloride) 50 mls @ 100 mls/hr IV Q24H REPLACED BY [facility]; Protocol Last Infusion: 09/21/22 22:39 Dose: Infused Isosorbide Mononitrate (Isosorbide Mononitrate Er 60 Mg Tablet) 60 mg PO DAILY@0830 REPLACED BY [facility] Last Admin: 09/21/22 08:26 Dose: 60 mg Levothyroxine Sodium (Levothyroxine 50 Mcg Tablet) 50 mcg PO QAM REPLACED BY [facility] Last Admin: 09/22/22 05:05 Dose: 50 mcg Losartan Potassium (Losartan 50 Mg Tablet) 100 mg PO DAILY REPLACED BY [facility] Last Admin: 09/21/22 08:24 Dose: 100 mg Metoprolol Succinate (Metoprolol Succinate Er (24 Hr) 50 Mg Tablet) 50 mg PO BID@0830,2100 REPLACED BY [facility] Last Admin: 09/21/22 20:26 Dose: 50 mg Montelukast Sodium (Montelukast Sodium 10 Mg Tablet) 10 mg PO DAILY@0830 REPLACED BY [facility] Last Admin: 09/21/22 08:25 Dose: 10 mg Multivitamins (I-Rttvyfq-Byeyeec C Tablet) 1 each PO DAILY REPLACED BY [facility] Ondansetron HCl (Ondansetron 2 Mg/Ml Sdv 2 Ml) 4 mg IVP Q6H PRN PRN Reason: NAUSEA AND VOMITING Pantoprazole Sodium (Pantoprazole Dr 40 Mg Tablet) 40 mg PO DAILY REPLACED BY [facility] Last Admin: 09/21/22 08:25 Dose: 40 mg Phenyleph/Shark Oil/Min Oil/Petrol (Phenyleph-Mineral Oil-Petrolat Oint 28 Gm) 1 applic TOPICAL QID PRN PRN Reason: HEMORRHOIDS Prednisone (Prednisone 20 Mg Tablet) 20 mg PO BID REPLACED BY [facility] Last Admin: 09/21/22 18:24 Dose: 20 mg Ropinirole HCl (Ropinirole 1 Mg Tablet) 1 mg PO BEDTIME APOLONIA Last Admin: 09/21/22 20:26 Dose: 1 mg Senna/Docusate Sodium (Sennosides-Docusate Tablet) 1 tab PO BID REPLACED BY [facility] Last Admin: 09/21/22 18:24 Dose: 1 tab Sodium Chloride (Sodium Chloride 0.9% 100 Ml Bag) 50 ml IV PRN PRN PRN Reason: Blood transfusion prime and flush Stop: 09/22/22 10:31 Vitals/I&O/Wt Last Vital Signs Temp 98.0 F 09/22/22 08:00 Pulse 67 09/22/22 08:00 Resp 17 09/22/22 08:00 BP 168/88 09/22/22 08:00 Pulse Ox 98 09/22/22 08:00 O2 Del Method 09/22/22 08:00 O2 Flow Rate 2 09/22/22 08:00 FiO2 30 09/18/22 07:36 09/21/22 09/22/22 09/22/22 22:59 06:59 14:59 Intake Total 860 / 1340 120 / 1460 Output Total 0 / 0 Balance 860 / 1340 120 / 1460 Weight last 48 hrs Weight 29.03 kg Weight 31.326 kg Weight 29.3 kg Physical Exam Narrative: patient seen and examined, comfortable, NARD vs noted heent- nc/ar, eomi neck supple rt sided PC left sided basal dullness and crackles heart reg abd soft, nt, nd, + bs ext no edema in legs rt arm wrapped. tender, bruised neuro- a,a, o x 3 dialysis access rt sided permacath Data 09/22/22 05:15 09/22/22 05:15 Micro: Microbiology 09/16/22 11:30 Blood Culture - Final Blood NO GROWTH AFTER 5 DAYS 09/16/22 11:35 Blood Culture - Final Blood NO GROWTH AFTER 5 DAYS A&P Assessment and plan (1) End stage renal 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: 67 yr old female 1. eSRD- off schedule- dialysis today and then tuesday then put back on MWF schedule -3.5 hrs today remove 1-1 .5 liters -normal phos -hold sevelamer 2. PNA- renal dose abx 3. anemia- hgb down to 7.5 iron sat 61% ferritin 837- no iron -use HAIM -transfuse 1 u prbc today on dialysis -monitor for bleeding 4. hypertension- monitor closely as she has dropped her BP on Dialysis -check echo 5. hypercapneic resp acidosis of COPD 6. echo noted- 1-Normal left ventricular size, systolic function and wall ?thickness, with no regional wall motion abnormalities.? Left ?ventricular ejection fraction is estimated at 60 %. Grade I/IV ?diastolic dysfunction (abnormal relaxation filling pattern), ?normal to mildly elevated filling pressures. ?2-Structurally normal mitral valve without significant stenosis ?or prolapse.? Moderate mitral regurgitation. ?3-Moderate aortic valve calcification. No aortic valve stenosis. ?.? Trace aortic regurgitation.? ?4-There is no pericardial effusion. ?5-Right atrial pressure is around 5 mm of mercury. seen and examined w/ RN- telehealth visit time spent 25 + min Plan as above- HD and abx. needs rehab Attestations Medical Necessity Statement*: anemia, weakness, esrd, pna Time Spent in Patient Care: 16 - 35 minutes (>than 50% of time spent in counselling and/or direct pt care on unit) . Coding Level of Care Code Acute Code for Chg Fwd Diagnoses End stage renal 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 N18.6; Z99.2
[2022-09-22] MEDS: HYDROcodone-acetaminophen 5-325 mg Tablet 1 TAB PO ×2 (09:06→22:31)
[2022-09-22] MEDS: hyDROXYzine 25 mg Capsule 50 MG PO (09:07)
--- NOTE | 2022-09-22 09:45 | PC.SLP ---
Speech therapist checked in with the patient. She is alert and oriented. She reports no difficulty with her current diet.
[2022-09-22] MEDS: glycerin adult supp 1 EACH PR (10:05)
--- NOTE | 2022-09-22 12:08 | PM.PN ---
Subjective Subjective: seen today feeling better Vitals/I&O/Wt Last Vital Signs Temp 98.1 F 09/22/22 11:45 Pulse 69 09/22/22 11:45 Resp 16 09/22/22 11:45 BP 155/73 09/22/22 11:45 Pulse Ox 98 09/22/22 11:38 O2 Del Method 09/22/22 11:38 O2 Flow Rate 2 09/22/22 08:00 FiO2 30 09/18/22 07:36 09/21/22 09/22/22 09/22/22 22:59 06:59 14:59 Intake Total 860 / 1340 120 / 1460 240 / 240 Output Total 0 / 0 Balance 860 / 1340 120 / 1460 240 / 240 Weight last 48 hrs Weight 29.03 kg Weight 31.326 kg Physical Exam Narrative: patient seen on dialysis, comfortable, NARD vs noted- bp elevated heent- nc/ar, eomi neck supple rt sided PC lung : mild crackles at left base heart reg abd soft, nt, nd, + bs ex no edema neuro- a,a, o x 3 Data 09/22/22 05:15 09/22/22 05:15 Micro: Microbiology 09/16/22 11:30 Blood Culture - Final Blood NO GROWTH AFTER 5 DAYS 09/16/22 11:35 Blood Culture - Final Blood NO GROWTH AFTER 5 DAYS A&P Assessment and plan (1) Acute and chronic respiratory failure with hypercapnia: - Likely multifactorial from pneumonia, and fluid overload and pulm edema and see acute exacerbation -sputum cultures in the past have grown Pseudomonas -Continue azithromycin -Continue cefepime 2 g every 12 hour for Pseudomonas coverage Nephro on board and following. -Monitor respiratory status closely (2) Pneumonia: Patient has evidence of pneumonia on chest x-ray, left lower lobe Continue cefepime, azithromycin Sputum culture pending Blood culture pending. Wean oxygen as tolerated (3) Acute hyperkalemia: Patient presented with acute hyperkalemia. Currently resolved. She received calcium in the emergency department Continue to monitor labs. (4) End stage renal 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: Nephrology consultation for hemodialysis (5) COPD (chronic obstructive pulmonary disease): Budesonide Nebs every 6 hours RAAT, O2 protocol. Continue ABx, steroids for now. (6) Protein calorie malnutrition: - Consult speech,'s consult dietary (7) Physical deconditioning: - PT OT (8) Muscle wasting: - Dietary consult (9) Malnourished: (10) Congestive heart failure: Qualifiers: Heart failure chronicity: acute on chronic Heart failure type: unspecified Qualified Code(s): I50.9 - Heart failure, unspecified (11) ESRD on dialysis: (12) Anemia: Qualifiers: Anemia type: unspecified type Qualified Code(s): D64.9 - Anemia, unspecified (13) COPD exacerbation: - Received 125 mg Solu-Medrol today -Continue prednisone 40 twice daily Plan Will await cultures prior to discharge. Procalcitonin to be checked in AM Code Status: Full IVF: None DVT PPx: Heparin GI PPx: Protonix ABx: cefepime, Azithromycin Diet: CC Attestations Medical Necessity Statement*: Patient requires hospitalization for acute respiratory failure secondary fluid overload pneumonia, COPD Diagnoses Acute and chronic respiratory failure with hypercapnia J96.22 Pneumonia J18.9 Acute hyperkalemia E87.5 End stage renal 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 N18.6; Z99.2 COPD (chronic obstructive pulmonary disease) J44.9 Protein calorie malnutrition E46 Physical deconditioning R53.81 Muscle wasting M62.50 Malnourished E46 Congestive heart failure I50.9 Heart failure chronicity: acute on chronic Heart failure type: unspecified ESRD on dialysis N18.6; Z99.2 Anemia D64.9 Anemia type: unspecified type COPD exacerbation J44.1
[2022-09-22] MEDS: amlodipine 5 mg Tablet PO (15:03)
[2022-09-22] MEDS: pantoprazole DR 40 mg Tablet PO (15:04)
[2022-09-22] MEDS: isosorbide mononitrate ER 60 mg Tablet PO (15:04)
[2022-09-22] MEDS: losartan 50 mg Tablet 100 MG PO (15:06)
[2022-09-22] MEDS: citalopram 20 mg Tablet 40 MG PO (15:07)
[2022-09-22] MEDS: aspirin 81 mg EC Tablet PO (15:07)
[2022-09-22] MEDS: b-complex-vitamin c Tablet 1 EACH PO (15:08)
[2022-09-22] MEDS: sennosides-docusate Tablet 1 TAB PO ×2 (15:08→17:59)
[2022-09-22] MEDS: montelukast sodium 10 mg Tablet PO (15:09)
[2022-09-22] MEDS: BuSPIRONE 10 mg Tablet 5 MG PO ×2 (15:09→20:08)
[2022-09-22] MEDS: phenyleph-mineral oil-petrolat Oint 28 gm 1 APPLIC PR ×3 (15:20→20:07)
[2022-09-22] MEDS: predniSONE 20 mg Tablet PO (18:00)
[2022-09-22] MEDS: metoprolol succinate ER (24 HR) 50 mg Tablet PO (20:08)
[2022-09-22] MEDS: ropinirole 1 mg Tablet PO (20:08)
[2022-09-22] MEDS: azithromycin 500 MG in sodium chloride 0.9% 250 ML 250 MG IV (20:09)
[2022-09-22] MEDS: ondansetron 2 mg/ML SDV 2 mL 4 MG IVP (21:13)
[2022-09-22] MEDS: cefepime 1,000 MG in sodium chloride 0.9% (plus) 50 ML 100 MG IV (22:32)
[2022-09-23] VITALS (14 sets, daily range): BP systolic 143–192; BP diastolic 69–90; PULSE 58–85; RESP 15–20; TEMP 36.6–37; O2SAT 87–100; BMI 14.6
[2022-09-23] MEDS: ipratropium-albuterol 3 mL Neb INHALATION ×2 (02:40→07:54)
[2022-09-23] MEDS: levothyroxine 50 mcg Tablet PO (05:21)
[2022-09-23] MEDS: atorvastatin 40 mg Tablet PO (05:21)
[2022-09-23] MEDS: heparin 5,000 unit/mL INJ 1 mL 5000 UNIT SUBCUT (05:22)
[2022-09-23 05:51] LABS: Basophils % 0.1 %; Hematocrit 32.2 % (37.0-47.0); Hemoglobin 10.2 g/dL (11.5-15.3); Lymphocytes # 1.7 10^3/uL (0.8-4.8); Lymphocytes % 16.7 %; Mean Corpuscular HGB Conc 31.7 g/dL (30.0-36.0); Mean Corpuscular Hemoglobin 30.2 pg (28.0-34.0); Mean Corpuscular Volume 95.3 fl (81-99); Mean Platelet Volume 9.9 fL (7.4-10.4); Monocytes # 0.4 10^3/uL (0.2-0.9); Monocytes % 3.6 %; Neutrophils % 78.1 %; Nucleated Red Blood Cells % 0.3 %; Platelet Count 108 10^3/cmm (130-400); Red Blood Count 3.38 10^6/uL (4.1-5.3); Red Cell Distribution Width 18.8 % (12.1-15.1)
[2022-09-23 06:06] LABS: Alanine Aminotransferase 21 U/L (0-33); Albumin Level 3.2 g/dL (3.5-5.2); Alkaline Phosphatase 72 U/L (35-105); Anion Gap 13.2 (5-19); Aspartate Amino Transferase 23 U/L (0-32); Blood Urea Nitrogen 34 mg/dL (8-23); Calcium 8.8 mg/dL (8.5-10.5); Carbon Dioxide 27 mmol/L (22-29); Chloride 100 mmol/L (98-107); Globulin 2.3 g/dL (1.3-4.6); Glomerular Filtration Rate 15.1 mL/min (90-130); Glucose 95 mg/dL (65-115); Magnesium 2.2 mg/dL (1.7-2.3); Osmolality Calculated 289 mOsm/kg (285-295); Phosphorus 1.9 mg/dL (2.5-4.5); Potassium 4.2 mmol/L (3.5-5.1); Sodium 136 mmol/L (136-145); Total Bilirubin 0.4 mg/dL (0.15-1.2); Total Protein 5.5 g/dL (6.6-8.7)
[2022-09-23] MEDS: budesonide 0.5 mg/2 mL Neb INHALATION (07:54)
--- NOTE | 2022-09-23 08:23 | PC.SOCIAL ---
IMM Update pg 2 of IMM updated and reviewed w/ patient. Copy provided and copy dated, initialed and placed in chart.
[2022-09-23] MEDS: pantoprazole DR 40 mg Tablet PO (09:27)
[2022-09-23] MEDS: sennosides-docusate Tablet 1 TAB PO (09:27)
[2022-09-23] MEDS: b-complex-vitamin c Tablet 1 EACH PO (09:27)
[2022-09-23] MEDS: predniSONE 20 mg Tablet PO (09:27)
[2022-09-23] MEDS: aspirin 81 mg EC Tablet PO (09:27)
[2022-09-23] MEDS: montelukast sodium 10 mg Tablet PO (09:27)
[2022-09-23] MEDS: citalopram 20 mg Tablet 40 MG PO (09:28)
[2022-09-23] MEDS: amlodipine 5 mg Tablet PO (09:28)
[2022-09-23] MEDS: isosorbide mononitrate ER 60 mg Tablet PO (09:28)
[2022-09-23] MEDS: metoprolol succinate ER (24 HR) 50 mg Tablet PO (09:28)
[2022-09-23] MEDS: BuSPIRONE 10 mg Tablet 5 MG PO ×2 (09:28→14:53)
[2022-09-23] MEDS: phenyleph-mineral oil-petrolat Oint 28 gm 1 APPLIC PR (09:29)
[2022-09-23] MEDS: losartan 50 mg Tablet 100 MG PO (09:31)
[2022-09-23] MEDS: HYDROcodone-acetaminophen 5-325 mg Tablet 1 TAB PO (09:52)
--- NOTE | 2022-09-23 10:55 | PM.DCS ---
Discharge Providers Date of Admission: 09/16/22 12:33 Date of Discharge: September 23, 2022 Attending Provider at Admission: Eyal Porras MD Attending Provider at Discharge: Sandy Suarez MD Primary Care Provider: HERBERT Masters Diagnoses at Discharge Discharge Diagnosis (1) Acute and chronic respiratory failure with hypercapnia: Status: Resolved (2) Pneumonia: Status: Acute (3) Acute hyperkalemia: Status: Resolved (4) End stage renal 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: Status: Acute (5) COPD (chronic obstructive pulmonary disease): Status: Acute (6) Protein calorie malnutrition: Status: Acute (7) Physical deconditioning: Status: Acute (8) Muscle wasting: Status: Acute (9) Malnourished: Status: Acute (10) Congestive heart failure: Status: Acute Qualifiers: Heart failure chronicity: acute on chronic Heart failure type: unspecified Qualified Code(s): I50.9 - Heart failure, unspecified (11) ESRD on dialysis: Status: Acute (12) Anemia: Status: Acute Qualifiers: Anemia type: unspecified type Qualified Code(s): D64.9 - Anemia, unspecified (13) COPD exacerbation: Status: Resolved Reason for Visit Reason for Visit: SOB/ COPD Brief History: As per Dr. Porras Hali James is a 67 year old female presenting with shortness of breath over the last 3 days.? She denies any fevers.? She has been coughing some.? She states she gets dialysis regularly, on a Tuesday regimen and last had it on Tuesday.? She denies any vomiting.? History is somewhat difficult as she is currently on BiPAP. In the emergency department when she arrived she was noted to be significantly short of breath.? BiPAP was initiated.? Blood cultures were drawn.? She received some IV antibiotics in the form of Levaquin and some breathing treatments.? She received some calcium for her markedly elevated potassium. Hospital Course Hospital Course Admitted for acute on chronic respiratory failure with hypercapnia likely multifactorial from pneumonia fluid overload. Patient was kept on cefepime and azithromycin for Pseudomonas coverage. She did have evidence of pneumonia on chest x-ray. Was transitioned to oral antibiotic at discharge. Was dialyzed during hospital stay. Procalcitonin was positive on admission. Patient did have a bleeding wound on her right forearm for which general surgery saw her and did a dressing and Dermabond for the patient. Patient also saw palliative care and had a consultation by Dr. Duran during hospital stay. Patient will remain a full code and go home with home health. He gave her a steroid taper on admission and kept her on 10 mg prednisone daily along with azithromycin Tuesday. Patient to follow-up with pulmonology scheduled at discharge. Physical Exam Narrative: patient seen on dialysis, comfortable, NARD vs noted- bp elevated heent- nc/ar, eomi neck supple rt sided PC lung : mild crackles at left base heart reg abd soft, nt, nd, + bs ex no edema neuro- a,a, o x 3 Discharge Data Studies Completed and Pending Completed Studies During Hospitalization Category Date Time Status XR chest 1V portable [id number] Routine Exams 09/19/22 07:00 Completed XR chest 1V portable [id number] Stat Exams 09/16/22 08:33 Completed US echo complete [CV. echo complete* [id number]] Routine Ultrasound 09/21/22 10:35 Completed Pending at discharge Category Date Time Status Antibody Screen (PEG) Routine Lab 09/21/22 12:29 Results Complete Blood Count w/Auto AM LABS Lab 09/24/22 04:00 Ordered Comprehensive Metabolic Panel AM LABS Lab 09/24/22 04:00 Ordered Magnesium AM LABS Lab 09/24/22 04:00 Ordered PRBC [Leukocyte Reduced RBC] Routine Lab 09/21/22 12:29 Results Phosphorus AM LABS Lab 09/24/22 04:00 Ordered Sputum Culture and Gram Stain Routine Lab 09/16/22 14:47 Uncollected Type and Screen Routine Lab 09/21/22 12:29 Results Radiology Impressions Chest X-Ray 09/19/22 07:00 IMPRESSION: Decreased perihilar interstitial opacities with minimal residual opacities. This may represent resolving pulmonary edema. Underlying interstitial lung disease cannot be excluded. No airspace opacities in the lungs. Laboratory Results WBC 10.0 10^3/uL (4.0-10.0) 09/23/22 05:40 RBC 3.38 10^6/uL (4.1-5.3) L 09/23/22 05:40 Hgb 10.2 g/dL (11.5-15.3) L D 09/23/22 05:40 Hct 32.2 % (37.0-47.0) L 09/23/22 05:40 MCV 95.3 fl (81-99) D 09/23/22 05:40 MCH 30.2 pg (28.0-34.0) 09/23/22 05:40 MCHC 31.7 g/dL (30.0-36.0) D 09/23/22 05:40 RDW 18.8 % (12.1-15.1) H 09/23/22 05:40 Plt Count 108 10^3/cmm (130-400) L 09/23/22 05:40 MPV 9.9 fL (7.4-10.4) 09/23/22 05:40 Neut % (Auto) 78.1 % 09/23/22 05:40 Lymph % (Auto) 16.7 % 09/23/22 05:40 [place] % (Auto) 3.6 % 09/23/22 05:40 Eos % (Auto) 0.0 % 09/23/22 05:40 Baso % (Auto) 0.1 % 09/23/22 05:40 Neut # (Auto) 7.80 10^3/uL (1.8-7.7) H 09/23/22 05:40 Lymph # (Auto) 1.7 10^3/uL (0.8-4.8) 09/23/22 05:40 [place] # (Auto) 0.4 10^3/uL (0.2-0.9) 09/23/22 05:40 Eos # (Auto) 0.0 10^3/uL (0.0-0.8) 09/23/22 05:40 Baso # (Auto) 0.0 10^3/uL (0.0-0.1) 09/23/22 05:40 Nucleated RBC % (auto) 0.3 % 09/23/22 05:40 Nucleated RBCs # 0.0 /100WBC 09/23/22 05:40 Specimen Type Arterial 09/16/22 10:41 Sample Site Brachial, left 09/16/22 10:41 ABG pH 7.32 (7.35-7.45) L 09/16/22 10:41 ABG pCO2 51.6 mmHg (35-45) H 09/16/22 10:41 ABG pO2 65.4 mmHg (80.0-100.0) L 09/16/22 10:41 ABG HCO3 26.3 mmol/L (22-26) H 09/16/22 10:41 ABG O2 Saturation 91.5 09/16/22 10:41 ABG Base Excess -0.2 mmol/L (-2.0-2.0) 09/16/22 10:41 Roly Test Pos 09/16/22 10:41 A-a O2 Gradient 13.1 mmHg (5-10) H 09/16/22 10:41 Hematocrit 28.2 % (37-47) L 09/16/22 10:41 Hgb O2 Saturation 88.9 % (95-100) L 09/16/22 10:41 Carboxyhemoglobin 1.3 %THgb (0.4-20.1) 09/16/22 10:41 Methemoglobin 1.5 % (0.4-1.5) 09/16/22 10:41 Total Hemoglobin 9.2 g/dL (12-16) L 09/16/22 10:41 Sodium 138.0 mmol/L (131-143) 09/16/22 10:41 Potassium 6.0 mmol/L (3.5-5.0) H 09/16/22 10:41 Glucose 85.0 mg/dL (70-115) 09/16/22 10:41 Ionized Calcium 1.3 mmol/L (1.1-1.4) 09/16/22 10:41 O2 Delivery Device Bipap 09/16/22 10:41 FiO2 32.0 % 09/16/22 10:41 Ripening Room Operator ID [place] 09/16/22 10:41 Sodium 136 mmol/L (136-145) 09/23/22 05:40 Potassium 4.2 mmol/L (3.5-5.1) 09/23/22 05:40 Chloride 100 mmol/L (98-107) 09/23/22 05:40 Carbon Dioxide 27 mmol/L (22-29) 09/23/22 05:40 Anion Gap 13.2 (5-19) 09/23/22 05:40 BUN 34 mg/dL (8-23) H 09/23/22 05:40 Creatinine 3.1 mg/dL (0.5-0.9) H 09/23/22 05:40 GFR Calculation 15.1 mL/min (90-130) L 09/23/22 05:40 Glucose 95 mg/dL (65-115) 09/23/22 05:40 Calculated Osmolality 289 mOsm/kg (285-295) 09/23/22 05:40 Calcium 8.8 mg/dL (8.5-10.5) 09/23/22 05:40 Phosphorus 1.9 mg/dL (2.5-4.5) L 09/23/22 05:40 Magnesium 2.2 mg/dL (1.7-2.3) 09/23/22 05:40 Iron 76 ug/dL (37-145) 09/20/22 04:33 TIBC 125 mcg/dl 09/20/22 04:33 % Saturation 60.8 % (20-50) H 09/20/22 04:33 Unsat Iron Binding 49 ug/dL (112-347) L 09/20/22 04:33 Ferritin 837 ng/mL (15-150) H 09/20/22 04:33 Total Bilirubin 0.4 mg/dL (0.15-1.2) 09/23/22 05:40 AST 23 U/L (0-32) 09/23/22 05:40 ALT 21 U/L (0-33) 09/23/22 05:40 Alkaline Phosphatase 72 U/L (35-105) 09/23/22 05:40 Troponin T Baseline 340 ng/L (0-10) H* 09/16/22 09:07 Troponin T 120 Minute 343.6 ng/L (0-10) H 09/16/22 11:17 Delta Troponin T 3.6 ABS# (0-10) 09/16/22 11:17 Troponin T Hi Sens 6Hr 298.6 ng/L (0-10) H 09/16/22 15:45 Troponin T Hi Sens 6Hr Delta -41.4 ng/L (0-12) L 09/16/22 15:45 C-Reactive Protein 4.0 mg/L (0.0-4.9) 09/21/22 06:00 NT-Pro-B Natriuret Pep 40517 pg/mL (0-125) H 09/21/22 06:00 Total Protein 5.5 g/dL (6.6-8.7) L 09/23/22 05:40 Albumin 3.2 g/dL (3.5-5.2) L 09/23/22 05:40 Globulin 2.3 g/dL (1.3-4.6) 09/23/22 05:40 25-OH Vitamin D Total 63 ng/mL (30-100) 09/20/22 04:33 Procalcitonin 0.91 ng/mL (0-0.5) H 09/21/22 06:00 Coronavirus 229E (PCR) Not detected (NOT DETECT) 09/16/22 09:07 Hep Bs Antigen Non-reactive (Nonreactive) 09/16/22 09:07 Hep Bs Antibody 57.6 (11.5-1000) 09/16/22 09:07 Hepatitis C Antibody Non-reactive (Nonreactive) 09/16/22 09:07 Influenza Type A Ag negative (Negative) 09/16/22 09:07 Influenza Type B Ag negative (Negative) 09/16/22 09:07 SARS-CoV-2 (PCR) Not detected (NOT DETECT) 09/16/22 09:07 Blood Type A Positive 09/21/22 12:29 Rho(D) Type Positive 09/21/22 12:29 Antibody Screen TNP 09/21/22 12:29 PEG Antibody Screen Negative 09/21/22 12:29 Crossmatch See Detail 09/21/22 12:29 Vitals Last Vital Signs Temp 98.1 F 09/23/22 08:00 Pulse 77 09/23/22 08:04 Resp 15 09/23/22 08:00 BP 181/74 09/23/22 09:31 Pulse Ox 97 09/23/22 08:00 O2 Del Method 09/23/22 08:00 O2 Flow Rate 2 09/23/22 08:00 FiO2 30 09/18/22 07:36 Discharge Plan Discharge Patient Disposition: Home Health Service Condition: Stable Prescriptions: New amlodipine 5 mg Tablet 5 mg PO DAILY 30 Days Qty: 30 0RF prednisone 10 mg tablet 10 mg PO DIRECTED 30 Days Qty: 30 0RF Rx Instructions: 20 mg x3 days then 10 mg daily Continued albuterol sulfate 2.5 mg /3 mL (0.083 %) solution for nebulization 2.5 mg INHALATION QID PRN (Reason: Shortness Of Breath) 30 Days Qty: 75 5RF epinephrine 0.3 mg/0.3 mL auto-injector 0.3 mg IM Q10M PRN (Reason: Allergic Reaction) Rx Instructions: for 2 doses albuterol sulfate 90 mcg/actuation HFA aerosol inhaler 2 puff INHALATION 6XD PRN (Reason: Shortness Of Breath) Qty: 6.7 5RF metoprolol succinate 50 mg tablet extended release 24 hr 50 mg PO BID@0830,2100 30 Days Qty: 60 5RF montelukast 10 mg tablet 10 mg PO DAILY@08 Qty: 30 5RF nitroglycerin [Nitrostat] 0.4 mg tablet, sublingual 0.4 mg SUBLINGUAL Q5M PRN (Reason: Chest Pain) 30 Days Qty: 30 5RF omeprazole 20 mg capsule,delayed release(DR/EC) 20 mg PO DAILY@829 30 Days Qty: 30 5RF losartan 50 mg tablet 100 mg PO DAILY ondansetron 8 mg tablet,disintegrating 8 mg PO Q8H PRN (Reason: nausea and vomiting) Qty: 90 0RF budesonide [Pulmicort] 0.5 mg/2 mL suspension for nebulization 0.5 mg inhalation BID Qty: 120 0RF Rx Instructions: NEEDS APPT PRIOR TO FURTHER REFILLS formoterol fumarate [Perforomist] 20 mcg/2 mL solution for nebulization 2 ml inhalation Q12H Qty: 120 0RF Rx Instructions: Needs appt for further refills. citalopram 40 mg tablet 40 mg PO DAILY@829 30 Days Qty: 30 2RF azithromycin 250 mg tablet 250 mg PO .COMPLEX 90 Days Qty: 45 0RF Rx Instructions: 250 mg PO on Tuesday; aspirin 81 mg tablet,delayed release (DR/EC) 81 mg PO DAILY@829 30 Days Qty: 30 5RF fluticasone propionate [Flonase Allergy Relief] 50 mcg/actuation [place],Suspension 2 spray INTRANASAL DAILY PRN (Reason: Allergy Symptoms) ropinirole 1 mg tablet 1 mg PO BEDTIME hydroxyzine HCl 50 mg tablet 50 mg PO QID PRN (Reason: Anxiety) polyethylene glycol 3350 17 gram Powder In Packet 17 g PO DAILY PRN (Reason: constipation) Qty: 30 0RF RenaPlex-D 800 mcg-12.5 mg -2,000 unit tablet 1 tab PO QPM atorvastatin 40 mg tablet 40 mg PO QAM isosorbide mononitrate 60 mg tablet extended release 24 hr 60 mg PO DAILY@0830 levothyroxine 50 mcg tablet 50 mcg PO QAM revefenacin 175 mcg/3 mL solution for nebulization 175 mcg inhalation QAM Rx Instructions: Needs appt for further refills. Held sevelamer carbonate 0.8 gram Powder In Packet 0.4 g PO TID Hold Instructions: see nephrology Rx Instructions: must administer with a meal/food Discontinued prednisone 20 mg tablet 20 mg PO BID Qty: 10 0RF bumetanide 0.5 mg tablet 0.5 mg PO DAILY hydrocodone-acetaminophen 5-325 mg tablet 1 tab PO BID PRN (Reason: pain) Qty: 10 0RF clonidine 0.1 mg/24 hr patch weekly 1 patch topical Q7D Rx Instructions: not started as of 09/16/22 per daughter clarithromycin 500 mg tablet 500 mg PO BID Rx Instructions: rx filled 06/14/22 14d/s (daughter states pt just restarted) No Action buspirone 15 mg tablet 15 mg PO BID Qty: 60 2RF hydrocodone-acetaminophen 5-325 mg tablet 1 tab PO BID PRN (Reason: pain/dyspnea) 30 Days Qty: 60 0RF Discharge Orders: Discharge Order (Routine); Ordered 09/23/22 Ordered By: Sandy Suarez Other Ambulatory Orders: DME: Oxygen (Order) Location: None Selected Ordered By: Sandy Suarez DME: Wheelchair (Order) Location: None Selected Ordered By: Sandy Suarez Referrals: [facility] [place] [facility] ([facility]) [Outside] Datar,Fan Méndez MD [Physician] - 10/13/22 9:45 am (This appointment will be at the [facility]. If you have any questions please call the heart and lung center.) Nancy Carrasco FNP-C [Primary Care Provider] - 09/28/22 10:40 am Discharge Diet: Usual diet Discharge Activity: Resume usual activity and Oxygen as instructed Patient Instructions: Prednisone (By mouth), Amlodipine (By mouth), COPD (Chronic Obstructive Pulmonary Disease) (DC), COPD Stoplight, Opioid Safety Activity Restrictions/Additional Instructions: Please follow up with PCP within 4-7 days of discharge and with nephrology. F/U with gen surgery as previously advised. Return to ER should you have worsening of symptoms or new symptoms develop. Discharge Attestations Time Spent in Discharge Care*: less than 30 min Status at Discharge: Cognitive status at discharge: cognitively intact, Behavioral status at discharge: cooperative, Quality Metrics Clinical Quality Measures [ No reported AMI, CVA or VTE this stay] Coding Level of Care Code Acute Code for Chg Fwd Diagnoses Acute and chronic respiratory failure with hypercapnia J96.22 Pneumonia J18.9 Acute hyperkalemia E87.5 End stage renal 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 N18.6; Z99.2 COPD (chronic obstructive pulmonary disease) J44.9 Protein calorie malnutrition E46 Physical deconditioning R53.81 Muscle wasting M62.50 Malnourished E46 Congestive heart failure I50.9 Heart failure chronicity: acute on chronic Heart failure type: unspecified ESRD on dialysis N18.6; Z99.2 Anemia D64.9 Anemia type: unspecified type COPD exacerbation J44.1
--- NOTE | 2022-09-23 10:59 | PM.PN ---
Subjective Subjective: feels better. no n/v/f/c/molina/d/leg pains Medications: Reviewed: Yes Medication Review Details: Current Medications Acetaminophen (Acetaminophen 325 Mg Tablet) 650 mg PO Q6H PRN PRN Reason: MILD PAIN Hydrocodone Bitart/Acetaminophen (Hydrocodone-Acetaminophen 5-325 Mg Tablet) 1 tab PO BID PRN PRN Reason: moderate pain Last Admin: 09/23/22 09:52 Dose: 1 tab Albuterol/Ipratropium (Ipratropium-Albuterol 3 Ml Neb) 3 ml INHALATION Q6H.RESP APOLONIA Last Admin: 09/23/22 07:54 Dose: 3 ml Amlodipine Besylate (Amlodipine 5 Mg Tablet) 5 mg PO DAILY [facility] Last Admin: 09/23/22 09:28 Dose: 5 mg Aspirin (Aspirin 81 Mg Ec Tablet) 81 mg PO DAILY@0830 [facility] Last Admin: 09/23/22 09:27 Dose: 81 mg Atorvastatin Calcium (Atorvastatin 40 Mg Tablet) 40 mg PO QAM [facility] Last Admin: 09/23/22 05:21 Dose: 40 mg Budesonide (Budesonide 0.5 Mg/2 Ml Neb) 0.5 mg INHALATION BID.RESPIRATORY [facility] Last Admin: 09/23/22 07:54 Dose: 0.5 mg Buspirone HCl (Buspirone 10 Mg Tablet) 5 mg PO TID [facility] Last Admin: 09/23/22 09:28 Dose: 5 mg Citalopram Hydrobromide (Citalopram 20 Mg Tablet) 40 mg PO DAILY@0830 [facility] Last Admin: 09/23/22 09:28 Dose: 40 mg Glycerin (Glycerin Adult Supp) 1 each [place] DAILY PRN PRN Reason: CONSTIPATION Last Admin: 09/22/22 10:05 Dose: 1 each Heparin Sodium (Porcine) (Heparin 5,000 Unit/Ml Inj 1 Ml) 5,000 unit SUBCUT Q12H [facility] Last Admin: 09/23/22 05:22 Dose: 5,000 unit Hydroxyzine Pamoate (Hydroxyzine 25 Mg Capsule) 50 mg PO QID PRN PRN Reason: Anxiety Last Admin: 09/22/22 09:07 Dose: 50 mg Azithromycin 500 mg/ Sodium (Chloride) 250 mls @ 250 mls/hr IV Q24H APOLONIA; Protocol Last Infusion: 09/22/22 22:06 Dose: Infused Sodium Chloride (Sodium Chloride 0.9%) 1,000 mls @ 0 mls/hr IV .Q0M PRN PRN Reason: hypotension or symptomatic Sodium Chloride (Sodium Chloride 0.9%) 1,000 mls @ 0 mls/hr IV .Q0M PRN PRN Reason: hypotension or symptomatic Albumin Human (Albumin) 12.5 gm in 50 mls @ 60 mls/hr IV PRN PRN PRN Reason: Hypotension and/or symptomatic Last Infusion: 09/20/22 12:33 Dose: Infused Cefepime HCl 1,000 mg/ Sodium (Chloride) 50 mls @ 100 mls/hr IV Q24H [facility]; Protocol Last Infusion: 09/22/22 23:26 Dose: Infused Isosorbide Mononitrate (Isosorbide Mononitrate Er 60 Mg Tablet) 60 mg PO DAILY@0830 [facility] Last Admin: 09/23/22 09:28 Dose: 60 mg Levothyroxine Sodium (Levothyroxine 50 Mcg Tablet) 50 mcg PO QAM [facility] Last Admin: 09/23/22 05:21 Dose: 50 mcg Losartan Potassium (Losartan 50 Mg Tablet) 100 mg PO DAILY [facility] Last Admin: 09/23/22 09:31 Dose: 100 mg Metoprolol Succinate (Metoprolol Succinate Er (24 Hr) 50 Mg Tablet) 50 mg PO BID@0830,2100 [facility] Last Admin: 09/23/22 09:28 Dose: 50 mg Montelukast Sodium (Montelukast Sodium 10 Mg Tablet) 10 mg PO DAILY@0830 [facility] Last Admin: 09/23/22 09:27 Dose: 10 mg Multivitamins (G-Emsswem-Coqhpwu C Tablet) 1 each PO DAILY [facility] Last Admin: 09/23/22 09:27 Dose: 1 each Ondansetron HCl (Ondansetron 2 Mg/Ml Sdv 2 Ml) 4 mg IVP Q6H PRN PRN Reason: NAUSEA AND VOMITING Last Admin: 09/22/22 21:13 Dose: 4 mg Pantoprazole Sodium (Pantoprazole Dr 40 Mg Tablet) 40 mg PO DAILY [facility] Last Admin: 09/23/22 09:27 Dose: 40 mg Phenyleph/Shark Oil/Min Oil/Petrol (Phenyleph-Mineral Oil-Petrolat Oint 28 Gm) 1 applic TOPICAL QID PRN PRN Reason: HEMORRHOIDS Phenyleph/Shark Oil/Min Oil/Petrol (Phenyleph-Mineral Oil-Petrolat Oint 28 Gm) 1 applic [place] QID [facility] Last Admin: 09/23/22 09:29 Dose: 1 applic Prednisone (Prednisone 20 Mg Tablet) 20 mg PO BID [facility] Last Admin: 09/23/22 09:27 Dose: 20 mg Ropinirole HCl (Ropinirole 1 Mg Tablet) 1 mg PO BEDTIME [facility] Last Admin: 09/22/22 20:08 Dose: 1 mg Senna/Docusate Sodium (Sennosides-Docusate Tablet) 1 tab PO BID [facility] Last Admin: 09/23/22 09:27 Dose: 1 tab Vitals/I&O/Wt Last Vital Signs Temp 98.1 F 09/23/22 08:00 Pulse 77 09/23/22 08:04 Resp 15 09/23/22 08:00 BP 181/74 09/23/22 09:31 Pulse Ox 87 L 09/23/22 10:57 O2 Del Method 09/23/22 08:00 O2 Flow Rate 2 09/23/22 10:57 FiO2 30 09/18/22 07:36 09/22/22 09/23/22 09/23/22 22:59 06:59 14:59 Intake Total 1630 / 2460 50 / 2510 Output Total 1811 / 1811 Balance -181 / 649 50 / 699 Weight last 48 hrs Weight 31.78 kg Weight 32.3 kg Weight 29.03 kg Physical Exam Narrative: patient seen and examined, comfortable, NARD vs noted -bp elevated heent- nc/ar, eomi neck supple rt sided PC lungs- b/l basal dullness and crackles heart reg abd soft, nt, nd, + bs ext no edema in legs rt arm wrapped. tender, bruised neuro- a,a, o x 3 dialysis access rt sided permacath Data 09/23/22 05:40 09/23/22 05:40 A&P Assessment and plan (1) End stage renal 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: 67 yr old female 1. eSRD- off schedule- dialysis was done yesterday- can do SUF for 2.5 hrs, remove 1.5- 2 l as tolerated and then okay for d/c today and then tuesday -normal phos -hold sevelamer 2. PNA- renal dose abx 3. anemia- hgb improved to 10.2 after 1 u prbc and HD iron sat 61% ferritin 837- no iron 4. hypertension- monitor closely as she has dropped her BP on Dialysis 5. hypercapneic resp acidosis of COPD 6. echo noted- 1-Normal left ventricular size, systolic function and wall ?thickness, with no regional wall motion abnormalities.? Left ?ventricular ejection fraction is estimated at 60 %. Grade I/IV ?diastolic dysfunction (abnormal relaxation filling pattern), ?normal to mildly elevated filling pressures. ?2-Structurally normal mitral valve without significant stenosis ?or prolapse.? Moderate mitral regurgitation. ?3-Moderate aortic valve calcification. No aortic valve stenosis. ?.? Trace aortic regurgitation.? ?4-There is no pericardial effusion. ?5-Right atrial pressure is around 5 mm of mercury. PNA- complete abx per medicine seen and examined w/ RN- telehealth visit time spent 25 + min Plan as above- HD and abx. d/c per medicine Attestations Medical Necessity Statement*: esrd, htn, chf Time Spent in Patient Care: 16 - 35 minutes (>than 50% of time spent in counselling and/or direct pt care on unit). Coding Level of Care Code Acute Code for Chg Fwd Diagnoses End stage renal 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 N18.6; Z99.2
[2022-09-23] MEDS: hyDROXYzine 25 mg Capsule 50 MG PO (11:45)
[2022-09-23] MEDS: heparin, porcine 1,000 unit/mL INJ 10 mL HE (11:47)
[2022-09-23] MEDS: ondansetron 2 mg/ML SDV 2 mL 4 MG IVP (12:40)
--- NOTE | 2022-09-23 15:36 | PM.CONSULT ---
Providers/Reason For Consult Consulting Physician/Specialty*: Dr. Ward Petit, DO/General surgery Reason for Consult*: Skin tear right forearm in the setting of anticoagulation Attending Physician: Sandy Suarez MD Primary Care Provider: HERBERT Masters History of Present Illness History of Present Illness Hali James is a 67 year old female, who I have met previously for removal of a foreign body from the right forearm wound as well as work-up for a 2.5 cm mass in her gallbladder. I removed the foreign body from her right forearm wound at the bedside last month and she declined surgery due to poor health at that time. She denies any pain at this time but does report that due to being on anticoagulation that right forearm wound continues to bleed. At this point is really just a skin tear. It has healed well. She is supposed to follow-up with me next month regarding cholecystectomy. Review of Systems General: Reports: 10 or more systems reviewed and unremarkable except in HPI and below Medications/Allergies Home Medications Medication Instructions Recorded Confirmed Last Taken Type fluticasone propionate 50 2 spray intranasal DAILY PRN 02/21/20 09/16/22 08/20/22 History mcg/actuation nasal Allergy Symptoms spray,suspension (Flonase Allergy Relief) albuterol sulfate 2.5 mg/3 mL 2.5 mg (3 mL) inhalation QID PRN 05/15/20 09/16/22 09/07/22 Rx (0.083 %) solution for nebulization Shortness Of Breath 30 days #75 mL epinephrine 0.3 mg/0.3 mL 0.3 mg IM Q10M PRN Allergic 10/16/20 09/16/22 Unknown History injection, auto-injector Reaction albuterol sulfate 90 mcg/actuation 2 puff inhalation 6XD PRN 04/05/22 09/16/22 08/20/22 Rx aerosol inhaler Shortness Of Breath #6.7 grams metoprolol succinate 50 mg 50 mg PO BID@0830,2100 30 days #60 04/05/22 09/16/22 09/07/22 Rx tablet,extended release 24 hr tabs montelukast 10 mg tablet 10 mg PO DAILY@0830 #30 tabs 04/05/22 09/16/22 09/07/22 Rx nitroglycerin 0.4 mg sublingual 0.4 mg sublingual Q5M PRN Chest 04/05/22 09/16/22 06/12/22 Rx tablet (Nitrostat) Pain 30 days #30 tabs omeprazole 20 mg capsule,delayed 20 mg PO DAILY@0830 30 days #30 04/05/22 09/16/22 09/07/22 Rx release caps sevelamer carbonate 0.8 gram oral 0.4 g PO TID 06/12/22 09/16/22 09/07/22 History powder packet ondansetron 8 mg disintegrating 8 mg PO Q8H PRN nausea and 06/16/22 09/16/22 Unknown Rx tablet vomiting #90 tabs budesonide 0.5 mg/2 mL suspension 0.5 mg (2 mL) inhalation BID #120 06/21/22 09/16/22 09/07/22 Rx for nebulization (Pulmicort) mL formoterol fumarate 20 mcg/2 mL 2 ml inhalation Q12H #120 mL 06/21/22 09/16/22 09/07/22 Rx solution for nebulization (Perforomist) buspirone 5 mg tablet 5 mg PO TID #90 tabs 07/01/22 09/16/22 09/07/22 Rx citalopram 40 mg tablet 40 mg PO DAILY@0830 30 days #30 07/01/22 09/16/22 09/07/22 Rx tabs azithromycin 250 mg tablet 250 mg PO .COMPLEX COPD 90 days 07/06/22 09/16/22 08/20/22 Rx #45 tabs aspirin 81 mg tablet,delayed 81 mg PO DAILY@0830 30 days #30 08/18/22 09/16/22 09/07/22 Rx release tabs hydroxyzine HCl 50 mg tablet 50 mg PO QID PRN Anxiety 08/21/22 09/16/22 08/20/22 History ropinirole 1 mg tablet 1 mg PO BEDTIME 08/21/22 09/16/22 09/07/22 History polyethylene glycol 3350 17 gram 17 g PO DAILY PRN constipation #30 08/25/22 09/16/22 Unknown Rx oral powder packet ea hydrocodone 5 mg-acetaminophen 325 1 tab PO BID PRN pain #10 tabs 09/08/22 09/16/22 Unknown Rx mg tablet vit B,C-folic ac 800 mcg-zinc 12.5 1 tab PO QPM 09/08/22 09/16/22 09/07/22 History mg-selen-D3 2,000 unit-vit E tablet (RenaPlex-D) losartan 50 mg tablet 100 mg PO DAILY 09/13/22 09/16/22 Unknown History atorvastatin 40 mg tablet 40 mg PO QAM 09/16/22 09/16/22 Unknown History isosorbide mononitrate 60 mg 60 mg PO DAILY@0830 09/16/22 09/16/22 Unknown History tablet,extended release 24 hr levothyroxine 50 mcg tablet 50 mcg PO QAM 09/16/22 09/16/22 Unknown History revefenacin 175 mcg/3 mL solution 175 mcg inhalation QAM 09/16/22 09/16/22 Unknown History for nebulization amlodipine 5 mg tablet 5 mg PO DAILY 30 days #30 tabs 09/23/22 Unknown Rx prednisone 10 mg tablet 10 mg PO DIRECTED 30 days #30 09/23/22 Unknown Rx tabs Allergies Allergy/AdvReac Type Severity Reaction Status Date / Time lisinopril Allergy Severe anaphylaxis Verified 09/16/22 11:15 Sulfa (Sulfonamide AdvReac Intermediate Itching, Verified 09/16/22 11:15 Antibiotics) burning Current Medications Generic Name Dose Route Start Last Admin Trade Name Freq PRN Reason Stop Dose Admin Hydrocodone Bitart/Acetaminophen 1 tab 09/16/22 14:51 09/23/22 09:52 Hydrocodone-Acetaminophen 5-325 Mg Tablet PO 1 tab BID PRN Administration moderate pain Albuterol/Ipratropium 3 ml 09/19/22 14:00 09/23/22 15:20 Ipratropium-Albuterol 3 Ml Neb INHALATION Not Given Q6H.RESP APOLONIA Amlodipine Besylate 5 mg 09/19/22 09:20 09/23/22 09:28 Amlodipine 5 Mg Tablet PO 5 mg DAILY APOLONIA Administration Aspirin 81 mg 09/17/22 08:30 09/23/22 09:27 Aspirin 81 Mg Ec Tablet PO 81 mg DAILY@0830 APOLONIA Administration Atorvastatin Calcium 40 mg 09/17/22 06:00 09/23/22 05:21 Atorvastatin 40 Mg Tablet PO 40 mg QAM APOLONIA Administration Budesonide 0.5 mg 09/16/22 20:00 09/23/22 07:54 Budesonide 0.5 Mg/2 Ml Neb INHALATION 0.5 mg BID.RESPIRATORY APOLONIA Administration Buspirone HCl 5 mg 09/16/22 21:00 09/23/22 14:53 Buspirone 10 Mg Tablet PO 5 mg TID APOLONIA Administration Citalopram Hydrobromide 40 mg 09/17/22 08:30 09/23/22 09:28 Citalopram 20 Mg Tablet PO 40 mg DAILY@0830 APOLONIA Administration Glycerin 1 each 09/20/22 10:55 09/22/22 10:05 Glycerin Adult Supp MA 1 each DAILY PRN Administration CONSTIPATION Heparin Sodium (Porcine) 5,000 unit 09/16/22 16:00 09/23/22 05:22 Heparin 5,000 Unit/Ml Inj 1 Ml SUBCUT 5,000 unit Q12H APOLONIA Administration Hydroxyzine Pamoate 50 mg 09/16/22 15:03 09/23/22 11:45 Hydroxyzine 25 Mg Capsule PO 50 mg QID PRN Administration Anxiety Azithromycin 500 mg/ Sodium 250 mls @ 250 mls/hr 09/16/22 16:00 09/22/22 22:06 Chloride IV Infused Q24H APOLONIA Infusion Protocol Albumin Human 12.5 gm in 50 mls @ 60 mls/hr 09/17/22 16:15 09/20/22 12:33 Albumin IV Infused PRN PRN Infusion Hypotension and/or symptomatic Cefepime HCl 1,000 mg/ Sodium 50 mls @ 100 mls/hr 09/18/22 16:00 09/22/22 23:26 Chloride IV Infused Q24H APOLONIA Infusion Protocol Isosorbide Mononitrate 60 mg 09/17/22 08:30 09/23/22 09:28 Isosorbide Mononitrate Er 60 Mg Tablet PO 60 mg DAILY@0830 APOLONIA Administration Levothyroxine Sodium 50 mcg 09/17/22 06:00 09/23/22 05:21 Levothyroxine 50 Mcg Tablet PO 50 mcg QAM APOLONIA Administration Losartan Potassium 100 mg 09/17/22 09:00 09/23/22 09:31 Losartan 50 Mg Tablet PO 100 mg DAILY APOLONIA Administration Metoprolol Succinate 50 mg 09/16/22 21:00 09/23/22 09:28 Metoprolol Succinate Er (24 Hr) 50 Mg Tablet PO 50 mg BID@0830,2100 APOLONIA Administration Montelukast Sodium 10 mg 09/17/22 08:30 09/23/22 09:27 Montelukast Sodium 10 Mg Tablet PO 10 mg DAILY@0830 APOLONIA Administration Multivitamins 1 each 09/22/22 09:00 09/23/22 09:27 F-Scnopdn-Zglbsoi C Tablet PO 1 each DAILY APOLONIA Administration Ondansetron HCl 4 mg 09/16/22 14:47 09/23/22 12:40 Ondansetron 2 Mg/Ml Sdv 2 Ml IVP 4 mg Q6H PRN Administration NAUSEA AND VOMITING Pantoprazole Sodium 40 mg 09/17/22 09:00 09/23/22 09:[address] 40 Mg Tablet PO 40 mg DAILY APOLONIA Administration Phenyleph/Shark Oil/Min Oil/Petrol 1 applic 09/22/22 13:00 09/23/22 14:06 Phenyleph-Mineral Oil-Petrolat Oint 28 Gm MA Not Given QID [facility] Prednisone 20 mg 09/16/22 18:00 09/23/22 09:27 Prednisone 20 Mg Tablet PO 20 mg BID APOLONIA Administration Ropinirole HCl 1 mg 09/16/22 21:00 09/22/22 20:08 Ropinirole 1 Mg Tablet PO 1 mg BEDTIME APOLONIA Administration Senna/Docusate Sodium 1 tab 09/20/22 09:00 09/23/22 09:27 Sennosides-Docusate Tablet PO 1 tab BID APOLONIA Administration PFSH Acute PFSH: Medical History AAA (abdominal aortic aneurysm) 4.1 x 4.4 x 5.7 cm 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 Anemia Anxiety attack Atypical chest pain Brain aneurysm Chest pain Chest pain Chronic kidney disease CKD stage III, solitary kidney Chronic migraine without aura, intractable, with status migrainosus Congestive heart failure COPD (chronic obstructive pulmonary disease) COPD with acute exacerbation Depression Elevated troponin End-stage renal disease needing dialysis [place] post (EVAR) endovascular aneurysm repair GERD (gastroesophageal reflux disease) History of stent insertion of renal artery Hypercholesteremia Hypertension Hypertensive urgency Resolved Hyponatremia Hypothyroidism Inguinal swelling Major depressive disorder, recurrent severe without psychotic features Malnourished Normal colonoscopy NSTEMI (non-ST elevated myocardial infarction) Osteoporosis Peripheral vascular disease Protein-energy malnutrition Psychiatric care Restless leg Solitary kidney Surgical History H/O: hysterectomy History of renal stent Herculink stent History of repair of aneurysm of abdominal aorta using endovascular stent graft Hx of tonsillectomy S/P appendectomy Status post endovascular aneurysm repair (EVAR) Family History Mother CAD (coronary artery disease) Chronic kidney disease (CKD) Dementia Stroke Father CAD (coronary artery disease) Cancer Diabetes Brother CAD (coronary artery disease) Cancer Lung disease Grandfather Cancer Grandmother Diabetes Family/Other Lung disease Suicide Other Hypertension Denies family history of Clotting disorder Anesthesia complication Bleeding disorder Social History Smoking and tobacco status: former smoker Quit status (tobacco): has quit using tobacco Year quit tobacco: 2005 - PPD x 35 Years Former quit date comment: Started at age 18 Second hand smoke exposure: No Smoking risk assessment/counseling performed?: No Alcohol intake: never Desire information about alcohol rehabilitation?: No Counseling given: No Desire information about substance/drug rehabilitation?: No Counseling given: No Adopted: No Caregiver/support person: No Lives independently: Yes Household members: family and children Housing: House Marital status: / Marital status details: 2006 Number of children: 12 Number of grandchildren: 4 Highest education level completed: Master's Degree Education level details: Criminal Justice service: No Current occupational status: disabled Current occupational exposures/hazards: No Pets and animals: Yes Pets & animals: cat(s), dog(s) and farm animals Farm Animals: cattle Leisure activites: reading and other Leisure activities details: watch TV Sexually active: No Current gender identity: Female Yudy/Adventism: Taoism [employer] Special yudy needs: No Agree to transfusion: Yes Financial difficulty paying for basics: Somewhat Hard Female Reproductive History: Para: 0 Spontaneous abortions: Yes Vitals/I&O/Wt Last Vital Signs Temp 98.6 F 09/23/22 15:31 Pulse 76 09/23/22 15:31 Resp 15 09/23/22 15:31 BP 143/69 09/23/22 15:31 Pulse Ox 96 09/23/22 15:31 O2 Del Method 09/23/22 08:00 O2 Flow Rate 2 09/23/22 10:57 FiO2 30 09/18/22 07:36 09/23/22 09/23/22 09/23/22 06:59 14:59 22:59 Intake Total 50 / 2510 Balance 50 / 699 Weight last 48 hrs Weight 70 lb 1 oz Weight 71 lb 3.349 oz Weight 64 lb Physical Exam Narrative: General : Patient is well developed , no acute distress, oriented x3 Head : Normal cephalic, a-traumatic. Ears : Pinnae and external canal are normal. Hearing is normal. Eyes : PERRLA, Sclera and injection are normal. No conjunctival discharge. Nose : Mucous membranes are without erythema. Throat : buccal mucosa is normal, gums are without significant recession or hypertrophy. Lungs : Equal chest rise bilaterally, no use of accessory muscles, trachea is midline. Cor : Rate and rhythm are normal. Abdomen : Soft, ND, NT, no g/r/m Extremities : No edema, no cyanosis or clubbing, dorsalis pedis pulses are present bilaterally, non-tender to palpation of calves. There is a skin tear on the dorsal right forearm with steady oozing of blood. Back : non-tender to palpation, no CVA tenderness. Neuro : CN II - XII intact, Upper and lower extremities have equal and full strength Data 09/23/22 05:40 09/23/22 05:40 A&P Assessment and plan (1) Gallbladder anomaly: (2) Skin tear: Plan Dermabond was placed over the skin tear of the right forearm under sterile conditions. Hemostasis was achieved. Let glue fall off on its own She has an appointment with me in clinic next month for potential cholecystectomy. General surgery will sign off. Please reconsult with any concerns Coding Level of Care Code Acute Code for Chg Fwd Diagnoses Gallbladder anomaly Q44.1 Skin tear
[2022-09-23] MEDS: albumin 12.5 GM/50 ML VIAL IV (15:44)
--- NOTE | 2022-09-23 15:51 | PC.HD ---
Patient recieving sequential ultrafiltration prior to discharge today. Pt was hypertensive pre-treatment, but appx 1 hour into tx pt c/o nausea, SBP 96/75. UF off, HOB lowered, and BP rechecked, 105/75. Vanesa REED ntfd and Zofran given. Dr Ramos ntfd and albumin 25% 50ml given and UF able to resume at decreased rate. Pt feeling chilled and weak in spite of additional blanket and head cover, but warm blanket finally removed her chills and she felt better. Denies symptoms at end of treatment.
== END 2022-09-23 17:30 | disposition home health service (06) | DRG 193 ==
LOC: ER 10:19 → ER IP 12:10 → ICU 13:03 → MEDSURG 09-19 10:30
PROVIDERS: Family Medicine; Internal Medicine Nephrology; Physician Assistant; Admitting Provider Internal Medicine; Emergency Provider Family Medicine; PCP Nurse Practitioner Family; Visit Provider Internal Medicine
DX: J18.9 Pneumonia, unspecified organism (principal); I50.33 Acute on chronic diastolic (congestive) heart failure; N18.6 End stage renal disease; J96.22 Acute and chronic respiratory failure with hypercapnia; J44.0 Chronic obstructive pulmonary disease with (acute) lower respiratory infection; J44.1 Chronic obstructive pulmonary disease with (acute) exacerbation; I13.2 Hypertensive heart and chronic kidney disease with heart failure and with stage 5 chronic kidney disease, or end stage renal disease; E46 Unspecified protein-calorie malnutrition; Z68.1 Body mass index [BMI] 19.9 or less, adult; Z99.2 Dependence on renal dialysis; Z90.5 Acquired absence of kidney; F32.9 Major depressive disorder, single episode, unspecified; K21.9 Gastro-esophageal reflux disease without esophagitis; E03.9 Hypothyroidism, unspecified; I25.2 Old myocardial infarction; M81.0 Age-related osteoporosis without current pathological fracture; I73.9 Peripheral vascular disease, unspecified; G25.81 Restless legs syndrome; Z87.891 Personal history of nicotine dependence; S51.811A Laceration without foreign body of right forearm, initial encounter; X58.XXXA Exposure to other specified factors, initial encounter; D63.1 Anemia in chronic kidney disease; E87.5 Hyperkalemia; E78.5 Hyperlipidemia, unspecified; Z79.82 Long term (current) use of aspirin; Z79.51 Long term (current) use of inhaled steroids
CPT/HCPCS: 12345; 36415; 36430; 36600; 71045; 80051; 80053; 82306; 82330; 82728; 82805; 83540; 83550; 83735; 83880; 84100; 84145; 84484; 85025; 86140; 86706; 86803; 86850; 86900; 86920; 87040; 87340; 87635; 87804; 90935; 92523; 92610; 93005; 93306; 94640; 94660; 94760; 96365; 96367; 96372; 96375; 96376; 99214; 99291; J0456; J0692; J0696; J1644; J1956; J2060; J2405; J2930; J3490; J7050; J7060; J7512; J7626; P9016; P9047; Q3014; Q4081

== ENCOUNTER 2022-10-12 10:19 | Emergency (ER) | payer MEDICARE, MEDICAID, SELFPAY ==
[2022-10-12 10:21] VITALS: BMI 14.8
[2022-10-12 10:27] VITALS: BP 196/92
--- NOTE | 2022-10-12 10:33 | XRR_ITS ---
PROCEDURE INFORMATION: Exam: XR Chest Exam date and time: 10/12/2022 10:47 AM Age: 67 years old Clinical indication: Cough and dyspnea and shortness of breath; Prior surgery; Surgery type: Ecar aneurysm repair; Additional info: Dyspnea/cough TECHNIQUE: Imaging protocol: Radiologic exam of the chest. Views: 1 view. COMPARISON: CR (CHEST, ) 09/19/2022 7:05 AM FINDINGS: Tubes, catheters and devices: There is a dialysis catheter whose tip projects within the right atrium unchanged. Lungs: Unremarkable. No consolidation. Pleural spaces: Unremarkable. No pleural effusion. No pneumothorax. Heart/Mediastinum: Unremarkable. No cardiomegaly. Vasculature: There is an endovascular metallic stent projecting over the thoracoabdominal junction of the aorta, unchanged. Bones/joints: Unremarkable for age. XR/XR chest 1V portable [id number] IMPRESSION: Stable chest. No active disease.
--- NOTE | 2022-10-12 10:41 | ECG_ITS ---
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 Measurements Intervals [place] Rate: 71 P: 140 GA: 110 QRS: 113 QRSD: 74 T: 142 QT: 399 QTc: 435 Interpretive Statements ECTOPIC ATRIAL RHYTHM WITH SHORT GA INTERVAL LEFT POSTERIOR FASCICULAR BLOCK [QRS AXIS > 109, INFERIOR Q] MODERATE ST DEPRESSION [0.05+ mV ST DEPRESSION] Compared to ECG 09/17/2022 07:02:03 Ectopic atrial rhythm now present Short GA interval now present Left posterior fascicular block now present ST (T wave) deviation now present Sinus rhythm no longer present Electronically Signed On 10-12-2022 11:52:42 CDT by Victor Hugo Gonzalez M.D. [email or web address]
[2022-10-12 10:49] LABS: ABG PCO2 45.3 mmHg (35-45); ABG PH Result 7.37 (7.35-7.45); Arterial Blood Gas Hematocrit 35.3 % (37-47); Base Excess ABG 0.5 mmol/L (-2.0-2.0); Blood Gas Allen Test Pos; Blood Gas Operator Identificat WALCI; Blood Gas Sample Site Radial, right; Blood Gas Sample Type Arterial; Carboxyhemoglobin < 0.0 %THgb (0.4-20.1); HCO3 ABG 26.1 mmol/L (22-26); HGB O2 Sat 95.8 % (95-100); Ionized Calcium Level - ABG 1.3 mmol/L (1.1-1.4); Methemoglobin 0.8 % (0.4-1.5); Oxygen Device NC; Oxygen Saturation ABG 96.5; Potassium Level - ABG 5.4 mmol/L (3.5-5.0); Total Hemoglobin 11.5 g/dL (12-16)
[2022-10-12 11:03] VITALS: BP 196/92; PULSE 74; RESP 16; O2SAT 99
--- NOTE | 2022-10-12 11:03 | ED_ITS ---
HPI - SOB/Dyspnea General: Chief Complaint: Shortness of Breath/Dyspnea Stated Complaint: SOB Time Seen by Provider: 10/12/22 10:32 Source: patient Mode of arrival: EMS History of Present Illness: HPI Narrative: 67-year-old female with a known history of severe COPD and end-stage renal disease presents emergency room complaining of shortness of breath she is extremely anxious she denies any fevers sweats chills or any productive cough. She is due for dialysis today no signs of fluid overload no chest pain no orthopnea. She is normally on 2 L/min by nasal cannula when she arrives here she is on 4 we titrated down she maintained her sats well. No productive cough no abdominal pain MD elicited complaint: shortness of breath and cough Pertinent past history: COPD Onset (ago): hour(s) Timing: constant Severity: mild Exacerbating factors: nothing Relieving factors: nothing Known history of: COPD Associated symptoms: Deny abdominal pain, chest congestion, chest pain, cough, diaphoresis, dizziness, extremity pain, fever(s), hemoptysis, lightheadedness, myalgias, nausea, orthopnea, palpitations, paresthesias, polydipsia, polyuria, rash, sense of impending doom, syncope or vomiting Treatment prior to arrival: none Review of Systems Const: Reports: fatigue and malaise; Denies: fever(s), chills or diaphoresis ENMT: Denies: throat pain, ear or mastoid pain, nasal discharge or nasal congestion Card: Denies: chest pain, palpitations, lightheadedness, syncope or orthopnea Resp: Reports: dyspnea and wheezing; Denies: productive cough, non-productive cough, hemoptysis or chest congestion GI: Denies: abdominal pain, nausea or vomiting : Denies: flank pain, difficulty voiding, dysuria, urinary frequency or urinary urgency Musc: Denies: extremity pain Skin/Breast: Denies: rash or pruritus Neuro: Denies: dizziness Endo: Denies: polyuria or polydipsia [facility] ED PFSH: Medical History AAA (abdominal aortic aneurysm) 4.1 x 4.4 x 5.7 cm 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 Anemia Anxiety attack Atypical chest pain Brain aneurysm Chest pain Chest pain Chronic kidney disease CKD stage III, solitary kidney Chronic migraine without aura, intractable, with status migrainosus Congestive heart failure COPD (chronic obstructive pulmonary disease) COPD with acute exacerbation Depression Elevated troponin End-stage renal disease needing dialysis Endoleak post (EVAR) endovascular aneurysm repair Fear associated with healthcare Gallbladder abnormality GERD (gastroesophageal reflux disease) History of stent insertion of renal artery Hypercholesteremia Hypertension Hypertensive urgency Resolved Hyponatremia Hypothyroidism Inguinal swelling Major depressive disorder, recurrent severe without psychotic features Malnourished Normal colonoscopy NSTEMI (non-ST elevated myocardial infarction) Osteoporosis Peripheral vascular disease Protein-energy malnutrition Psychiatric care Restless leg Solitary kidney Surgical History H/O: hysterectomy History of renal stent Herculink stent History of repair of aneurysm of abdominal aorta using endovascular stent graft Hx of tonsillectomy S/P appendectomy Status post endovascular aneurysm repair (EVAR) Family History Mother CAD (coronary artery disease) Chronic kidney disease (CKD) Dementia Stroke Father CAD (coronary artery disease) Cancer Diabetes Brother CAD (coronary artery disease) Cancer Lung disease Grandfather Cancer Grandmother Diabetes Family/Other Lung disease Suicide Other Hypertension Denies family history of Clotting disorder Anesthesia complication Bleeding disorder Social History Smoking and tobacco status: former smoker Quit status (tobacco): has quit using tobacco Year quit tobacco: 2005 - PPD x 35 Years Former quit date comment: Started at age 18 Second hand smoke exposure: No Smoking risk assessment/counseling performed?: No Alcohol intake: never Desire information about alcohol rehabilitation?: No Counseling given: No Desire information about substance/drug rehabilitation?: No Counseling given: No Adopted: No Caregiver/support person: No Lives independently: Yes Household members: family and children Housing: House Marital status: / Marital status details: 2005 Number of children: 12 Number of grandchildren: 4 Highest education level completed: Master's Degree Education level details: Criminal Justice service: No Current occupational status: disabled Current occupational exposures/hazards: No Pets and animals: Yes Pets & animals: cat(s), dog(s) and farm animals Farm Animals: cattle Leisure activites: reading and other Leisure activities details: watch TV Sexually active: No Current gender identity: Female Yudy/Zoroastrianism: [employer] Special yudy needs: No Agree to transfusion: Yes Financial difficulty paying for basics: Somewhat Hard Female Reproductive History: Para: 0 Spontaneous abortions: Yes Course Vital Signs: Vital signs: Vital Signs Pulse Rate 73 10/12/22 11:13 Respiratory Rate 18 10/12/22 11:08 Blood Pressure 196/92 10/12/22 11:03 Pulse Oximetry 99 10/12/22 11:08 Oxygen Delivery Me thod 10/12/22 11:08 Oxygen Flow Rate 2 10/12/22 11:08 MDM - SOB/Dyspnea Medical Decision Making Improved with steroids and nebulizers oxygen titrated down as patient is at risk for hypercapnia with elevated oxygen delivery. Overall he is doing well he was discharged from the ER she is feeling much better she go directly to dialysis for her usual dialysis run return if has problems. Discharge home with steroid taper Medical Records I reviewed the patient's medical records. Lab Data I reviewed the patient's lab results. 10/12/22 11:07 10/12/22 11:07 Labs/Radiology: Radiology Impressions Chest X-Ray 10/12/22 10:33 IMPRESSION: Stable chest. No active disease. Laboratory Results WBC 9.9 10^3/uL (4.0-10.0) 10/12/22 11:07 RBC 3.46 10^6/uL (4.1-5.3) L 10/12/22 11:07 Hgb 10.8 g/dL (11.5-15.3) L 10/12/22 11:07 Hct 36.5 % (37.0-47.0) L 10/12/22 11:07 MCV 105.5 fl (81-99) H 10/12/22 11:07 MCH 31.2 pg (28.0-34.0) 10/12/22 11:07 MCHC 29.6 g/dL (30.0-36.0) L 10/12/22 11:07 RDW 18.5 % (12.1-15.1) H 10/12/22 11:07 Plt Count 165 10^3/cmm (130-400) 10/12/22 11:07 MPV 9.5 fL (7.4-10.4) 10/12/22 11:07 Neut % (Auto) 61.3 % 10/12/22 11:07 Lymph % (Auto) 31.6 % 10/12/22 11:07 R[place]els % (Auto) 6.7 % 10/12/22 11:07 Eos % (Auto) 0.0 % 10/12/22 11:07 Baso % (Auto) 0.1 % 10/12/22 11:07 Neut # (Auto) 6.04 10^3/uL (1.8-7.7) 10/12/22 11:07 Lymph # (Auto) 3.1 10^3/uL (0.8-4.8) 10/12/22 11:07 Runnels # (Auto) 0.7 10^3/uL (0.2-0.9) 10/12/22 11:07 Eos # (Auto) 0.0 10^3/uL (0.0-0.8) 10/12/22 11:07 Baso # (Auto) 0.0 10^3/uL (0.0-0.1) 10/12/22 11:07 Nucleated RBC % (auto) 0 % 10/12/22 11:07 Nucleated RBCs # 0.0 /100WBC 10/12/22 11:07 Specimen Type Arterial 10/12/22 10:37 Sample Site Radial, right 10/12/22 10:37 ABG pH 7.37 (7.35-7.45) 10/12/22 10:37 ABG pCO2 45.3 mmHg (35-45) H 10/12/22 10:37 ABG pO2 114.0 mmHg (80.0-100.0) H 10/12/22 10:37 ABG HCO3 26.1 mmol/L (22-26) H 10/12/22 10:37 ABG O2 Saturation 96.5 10/12/22 10:37 ABG Base Excess 0.5 mmol/L (-2.0-2.0) 10/12/22 10:37 Roly Test Pos 10/12/22 10:37 A-a O2 Gradient Not Reportable 10/12/22 10:37 Hematocrit 35.3 % (37-47) L 10/12/22 10:37 Hgb O2 Saturation 95.8 % (95-100) 10/12/22 10:37 Carboxyhemoglobin < 0.0 %THgb (0.4-20.1) L 10/12/22 10:37 Methemoglobin 0.8 % (0.4-1.5) 10/12/22 10:37 Total Hemoglobin 11.5 g/dL (12-16) L 10/12/22 10:37 Sodium 140.0 mmol/L (131-143) 10/12/22 10:37 Potassium 5.4 mmol/L (3.5-5.0) H 10/12/22 10:37 Glucose 82.0 mg/dL (70-115) 10/12/22 10:37 Ionized Calcium 1.3 mmol/L (1.1-1.4) 10/12/22 10:37 O2 Delivery Device Nc 10/12/22 10:37 O2 Liters/Min 4.0 % 10/12/22 10:37 Story Teller ID [place] 10/12/22 10:37 Sodium 139 mmol/L (136-145) 10/12/22 11:07 Potassium 5.4 mmol/L (3.5-5.1) H 10/12/22 11:07 Chloride 101 mmol/L (98-107) 10/12/22 11:07 Carbon Dioxide 25 mmol/L (22-29) 10/12/22 11:07 Anion Gap 18.4 (5-19) 10/12/22 11:07 BUN 73 mg/dL (8-23) H 10/12/22 11:07 Creatinine 5.9 mg/dL (0.5-0.9) H* 10/12/22 11:07 GFR Calculation 7.2 mL/min (90-130) L 10/12/22 11:07 Glucose 75 mg/dL (65-115) 10/12/22 11:07 Calculated Osmolality 308 mOsm/kg (285-295) H 10/12/22 11:07 Calcium 8.6 mg/dL (8.5-10.5) 10/12/22 11:07 Total Bilirubin 0.2 mg/dL (0.15-1.2) 10/12/22 11:07 AST 25 U/L (0-32) 10/12/22 11:07 ALT 19 U/L (0-33) 10/12/22 11:07 Alkaline Phosphatase 197 U/L (35-105) H 10/12/22 11:07 Total Protein 5.6 g/dL (6.6-8.7) L 10/12/22 11:07 Albumin 3.3 g/dL (3.5-5.2) L 10/12/22 11:07 Globulin 2.3 g/dL (1.3-4.6) 10/12/22 11:07 Discharge Plan Discharge Patient Disposition: Home Clinical Impression: COPD (chronic obstructive pulmonary disease), End stage renal 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 Condition: Stable Prescriptions: No Action epinephrine 0.3 mg/0.3 mL auto-injector 0.3 mg IM Q10M PRN (Reason: Allergic Reaction) Rx Instructions: for 2 doses metoprolol succinate 50 mg tablet extended release 24 hr 50 mg PO BID@0830,2100 30 Days Qty: 60 5RF montelukast 10 mg tablet 10 mg PO DAILY@0830 Qty: 30 5RF nitroglycerin [Nitrostat] 0.4 mg tablet, sublingual 0.4 mg SUBLINGUAL Q5M PRN (Reason: Chest Pain) 30 Days Qty: 30 5RF omeprazole 20 mg capsule,delayed release(DR/EC) 20 mg PO DAILY@0830 30 Days Qty: 30 5RF losartan 50 mg tablet 100 mg PO DAILY buspirone 15 mg tablet 15 mg PO BID Qty: 60 2RF albuterol sulfate 2.5 mg /3 mL (0.083 %) solution for nebulization 2.5 mg INHALATION QID PRN (Reason: Shortness Of Breath) 30 Days Qty: 75 5RF prednisone 10 mg tablet 10 mg PO DAILY Qty: 10 0RF prednisone 5 mg tablet 5 mg PO DAILY Qty: 30 3RF albuterol sulfate 90 mcg/actuation HFA aerosol inhaler 2 puff INHALATION 6XD PRN (Reason: Shortness Of Breath) Qty: 6.7 5RF ondansetron 8 mg tablet,disintegrating 8 mg PO Q8H PRN (Reason: nausea and vomiting) Qty: 90 0RF budesonide [Pulmicort] 0.5 mg/2 mL suspension for nebulization 0.5 mg inhalation BID Qty: 120 0RF Rx Instructions: NEEDS APPT PRIOR TO FURTHER REFILLS formoterol fumarate [Perforomist] 20 mcg/2 mL solution for nebulization 2 ml inhalation Q12H Qty: 120 0RF Rx Instructions: Needs appt for further refills. citalopram 40 mg tablet 40 mg PO DAILY@0830 30 Days Qty: 30 2RF azithromycin 250 mg tablet 250 mg PO .COMPLEX 90 Days Qty: 45 0RF Rx Instructions: 250 mg PO on Tuesday; aspirin 81 mg tablet,delayed release (DR/EC) 81 mg PO DAILY@0830 30 Days Qty: 30 5RF hydrocodone-acetaminophen 5-325 mg tablet 1 tab PO BID PRN (Reason: pain/dyspnea) 30 Days Qty: 60 0RF fluticasone propionate [Flonase Allergy Relief] 50 mcg/actuation [place],Suspension 2 spray INTRANASAL DAILY PRN (Reason: Allergy Symptoms) ropinirole 1 mg tablet 1 mg PO BEDTIME hydroxyzine HCl 50 mg tablet 50 mg PO QID PRN (Reason: Anxiety) polyethylene glycol 3350 17 gram Powder In Packet 17 g PO DAILY PRN (Reason: constipation) Qty: 30 0RF RenaPlex-D 800 mcg-12.5 mg -2,000 unit tablet 1 tab PO QPM atorvastatin 40 mg tablet 40 mg PO QAM isosorbide mononitrate 60 mg tablet extended release 24 hr 60 mg PO DAILY@0830 levothyroxine 50 mcg tablet 50 mcg PO QAM revefenacin 175 mcg/3 mL solution for nebulization 175 mcg inhalation QAM Rx Instructions: Needs appt for further refills. amlodipine 5 mg Tablet 5 mg PO DAILY 30 Days Qty: 30 0RF prednisone 10 mg tablet 10 mg PO DIRECTED 30 Days Qty: 30 0RF Rx Instructions: 20 mg x3 days then 10 mg daily sevelamer carbonate 0.8 gram Powder In Packet 0.4 g PO TID Hold Instructions: see nephrology Rx Instructions: must administer with a meal/food Discharge Orders: Discharge ED (Routine); Ordered 10/12/22 Ordered By: Brett Herman Referrals: Nancy Carrasco FNP-C [Primary Care Provider] - Discharge Diet: Usual diet Discharge Activity: Resume usual activity Patient Instructions: Opioid Safety, Pain Management Activity Restrictions/Additional Instructions: You are seen in the emergency room for complaints of shortness of breath your oxygen saturations are normal and your usual 2 L. Recommend you proceed to your dialysis today as scheduled. You were given 1 dose of steroids and nebulizers here in the emergency room continue to use nebulizers as needed for shortness of breath. Coding Level of Care Code ED Paint Stockman for Leann Crowley
[2022-10-12 11:08] VITALS: PULSE 73; RESP 18; O2SAT 99
[2022-10-12] MEDS: ipratropium-albuterol 3 mL Neb INHALATION (11:08)
[2022-10-12 11:13] VITALS: PULSE 73
[2022-10-12 11:13] LABS: Basophils % 0.1 %; Hematocrit 36.5 % (37.0-47.0); Hemoglobin 10.8 g/dL (11.5-15.3); Lymphocytes # 3.1 10^3/uL (0.8-4.8); Lymphocytes % 31.6 %; Mean Corpuscular HGB Conc 29.6 g/dL (30.0-36.0); Mean Corpuscular Hemoglobin 31.2 pg (28.0-34.0); Mean Corpuscular Volume 105.5 fl (81-99); Mean Platelet Volume 9.5 fL (7.4-10.4); Monocytes # 0.7 10^3/uL (0.2-0.9); Monocytes % 6.7 %; Neutrophils # 6.04 10^3/uL (1.8-7.7); Neutrophils % 61.3 %; Nucleated Red Blood Cells % 0 %; Platelet Count 165 10^3/cmm (130-400); Red Blood Count 3.46 10^6/uL (4.1-5.3); Red Cell Distribution Width 18.5 % (12.1-15.1); White Blood Count 9.9 10^3/uL (4.0-10.0)
[2022-10-12 11:35] LABS: Alanine Aminotransferase 19 U/L (0-33); Albumin Level 3.3 g/dL (3.5-5.2); Alkaline Phosphatase 197 U/L (35-105); Aspartate Amino Transferase 25 U/L (0-32); Blood Urea Nitrogen 73 mg/dL (8-23); Calcium 8.6 mg/dL (8.5-10.5); Carbon Dioxide 25 mmol/L (22-29); Chloride 101 mmol/L (98-107); Globulin 2.3 g/dL (1.3-4.6); Glomerular Filtration Rate 7.2 mL/min (90-130); Glucose 75 mg/dL (65-115); Osmolality Calculated 308 mOsm/kg (285-295); Sodium 139 mmol/L (136-145); Total Bilirubin 0.2 mg/dL (0.15-1.2); Total Protein 5.6 g/dL (6.6-8.7)
[2022-10-12 11:39] LABS: Anion Gap 18.4 (5-19); Potassium 5.4 mmol/L (3.5-5.1)
== END 2022-10-12 13:35 | disposition home or self-care (01) ==
PROVIDERS: Emergency Provider Family Medicine; PCP Nurse Practitioner Family
DX: J44.9 Chronic obstructive pulmonary disease, unspecified (principal); I13.2 Hypertensive heart and chronic kidney disease with heart failure and with stage 5 chronic kidney disease, or end stage renal disease; N18.6 End stage renal disease; I50.9 Heart failure, unspecified; Z99.2 Dependence on renal dialysis; I25.2 Old myocardial infarction; Z87.891 Personal history of nicotine dependence
CPT/HCPCS: 36600; 71045; 80051; 80053; 82330; 82805; 85025; 93005; 94640; 96374; 99285; J2930

== ENCOUNTER → 2022-10-13 12:30 | Outpatient (BNVA) | payer MEDICARE, MEDICAID, SELFPAY | PROVIDERS: PCP Nurse Practitioner Family; Visit Provider Surgery | DX: Q44.1 Other congenital malformations of gallbladder (principal) | CPT/HCPCS: 99203 ==

== ENCOUNTER 2022-10-19 09:34 | Inpatient (IN) | payer MEDICARE, MEDICAID, SELFPAY ==
[2022-10-19] VITALS (105 sets, daily range): BP systolic 98–203; BP diastolic 60–118; PULSE 63–138; RESP 12–29; TEMP 36.1–36.7; O2SAT 86–100
--- NOTE | 2022-10-19 09:44 | XR_ITS ---
WS: [id number] EXAMINATION: XR chest 1V portable [id number] REASON FOR EXAM: dyspnea COMPARISON: 10/12/2022 ORDER DATE: 10/19/2022 9:44 AM TECHNIQUE: A single, portable frontal chest x-ray was obtained. X-RAY FINDINGS: There is a dialysis catheter whose tip projects within the right atrium unchanged. Lungs: Unremarkable. No consolidation. Pleural spaces: Unremarkable. No pleural effusion. No pneumothorax. Heart/Mediastinum: Unremarkable. No cardiomegaly. Vasculature: There is an endovascular metallic stent projecting over the thoracoabdominal junction of the aorta, unchanged. Bones/joints: Unremarkable for age. XR/XR chest 1V portable [id number] IMPRESSION: Stable chest. No active disease.
--- NOTE | 2022-10-19 09:55 | ECG_ITS ---
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 Measurements Intervals [place] Rate: 84 P: 101 TN: 136 QRS: 83 QRSD: 92 T: 31 QT: 374 QTc: 445 Interpretive Statements SINUS RHYTHM Compared to ECG 10/12/2022 10:41:45 Ectopic atrial rhythm no longer present Short TN interval no longer present Left posterior fascicular block no longer present ST (T wave) deviation no longer present Electronically Signed On 10-20-2022 2:17:16 CDT by Guillermo Culver M.D. [id number]
[2022-10-19 10:08] LABS: ABG PCO2 51.4 mmHg (35-45); ABG PH Result 7.27 (7.35-7.45); Alveolar-Arterial Oxygen Gradi 12.4 mmHg (5-10); Arterial Blood Gas Hematocrit 36.4 % (37-47); Base Excess ABG -3.8 mmol/L (-2.0-2.0); Blood Gas Allen Test Pos; Blood Gas Operator Identificat MONRO; Blood Gas Sample Site Radial, right; Blood Gas Sample Type Arterial; Carboxyhemoglobin 0.3 %THgb (0.4-20.1); HCO3 ABG 23.5 mmol/L (22-26); HGB O2 Sat 90.4 % (95-100); Ionized Calcium Level - ABG 1.3 mmol/L (1.1-1.4); Methemoglobin 0.9 % (0.4-1.5); Oxygen Device NC; Oxygen Saturation ABG 91.6; PO2 ABG 72.4 mmHg (80.0-100.0); Potassium Level - ABG 6.9 mmol/L (3.5-5.0); Total Hemoglobin 11.9 g/dL (12-16)
[2022-10-19 10:11] LABS: Basophils % 0.2 %; Hemoglobin 12.6 g/dL (11.5-15.3); Lymphocytes % 17.5 %; Mean Corpuscular HGB Conc 29.3 g/dL (30.0-36.0); Mean Corpuscular Volume 105.7 fl (81-99); Mean Platelet Volume 8.8 fL (7.4-10.4); Monocytes # 0.5 10^3/uL (0.2-0.9); Monocytes % 4.6 %; Neutrophils # 8.65 10^3/uL (1.8-7.7); Neutrophils % 76.1 %; Nucleated Red Blood Cells # 0.2 /100WBC; Nucleated Red Blood Cells % 1.4 %; Platelet Count 235 10^3/cmm (130-400); Red Blood Count 4.07 10^6/uL (4.1-5.3); Red Cell Distribution Width 17.8 % (12.1-15.1); White Blood Count 11.4 10^3/uL (4.0-10.0)
[2022-10-19] MEDS: morphine 4 mg/mL SDV 1 mL IVP (10:22)
[2022-10-19] MEDS: levalbuterol 1.25 mg/3 mL Neb INHALATION (10:26)
[2022-10-19 10:35] LABS: Troponin(5th) Baseline 275 ng/L (0-10)
[2022-10-19 10:37] LABS: Alanine Aminotransferase 48 U/L (0-33); Albumin Level 4.1 g/dL (3.5-5.2); Alkaline Phosphatase 162 U/L (35-105); Anion Gap 23.1 (5-19); Aspartate Amino Transferase 41 U/L (0-32); Blood Urea Nitrogen 67 mg/dL (8-23); Calcium 9.5 mg/dL (8.5-10.5); Carbon Dioxide 22 mmol/L (22-29); Chloride 102 mmol/L (98-107); Globulin 3.2 g/dL (1.3-4.6); Glomerular Filtration Rate 7.2 mL/min (90-130); Glucose 91 mg/dL (65-115); Osmolality Calculated 309 mOsm/kg (285-295); Sodium 140 mmol/L (136-145); Total Bilirubin 0.3 mg/dL (0.15-1.2); Total Protein 7.3 g/dL (6.6-8.7)
[2022-10-19 10:38] LABS: Potassium 7.1 mmol/L (3.5-5.1)
--- NOTE | 2022-10-19 10:55 | W.ED.SOB ---
HPI - SOB/Dyspnea General: Chief Complaint: Shortness of Breath/Dyspnea Stated Complaint: SOB/ LOW O2 SATS History of Present Illness: HPI Narrative: Patient presents to the ER with complaints of shortness of breath. Patient per EMS was tripoding at home and is on 5 L of oxygen per nasal cannula. EMS administered 125 mg Solu-Medrol and 1 DuoNeb and 1 albuterol treatment in route. EMS states that patient was satting 91% at home. Patient is normally on 2 to 4 L. Patient is a dialysis patient but her last dialysis was Tuesday. Patient is speaking in one-word sentences with audible wheezes present. Patient has known COPD and presents to the ER frequently for this. MD elicited complaint: shortness of breath Pertinent past history: COPD Onset (ago): day(s) (Chronically short of breath with worse last night) Timing: constant Severity: moderate Exacerbating factors: lying flat and exertion Relieving factors: nothing Known history of: COPD Associated symptoms: Reports orthopnea; Deny abdominal pain, chest pain, fever(s), nausea or vomiting Treatment prior to arrival: oxygen, bronchodilator and other (IV steroid) Review of Systems General: Reports: 10 or more systems reviewed and unremarkable except in HPI and below Const: Denies: fever(s) or chills Eyes: Denies: change in vision ENMT: Denies: throat pain or odynophagia Card: Reports: dyspnea on exertion and orthopnea; Denies: chest pain or irregular heart rhythm Resp: Reports: dyspnea GI: Denies: abdominal pain, nausea, vomiting or diarrhea [facility] ED PFSH: Medical History AAA (abdominal aortic aneurysm) 4.1 x 4.4 x 5.7 cm 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 Anemia Anxiety attack Atypical chest pain Brain aneurysm Chest pain Chest pain Chronic kidney disease CKD stage III, solitary kidney Chronic migraine without aura, intractable, with status migrainosus Congestive heart failure COPD (chronic obstructive pulmonary disease) COPD with acute exacerbation Depression Elevated troponin End-stage renal disease needing dialysis Endoleak post (EVAR) endovascular aneurysm repair Fear associated with healthcare Gallbladder abnormality GERD (gastroesophageal reflux disease) History of stent insertion of renal artery Hypercholesteremia Hypertension Hypertensive urgency Resolved Hyponatremia Hypothyroidism Inguinal swelling Major depressive disorder, recurrent severe without psychotic features Malnourished Normal colonoscopy NSTEMI (non-ST elevated myocardial infarction) Osteoporosis Peripheral vascular disease Protein-energy malnutrition Psychiatric care Restless leg Solitary kidney Surgical History H/O: hysterectomy History of renal stent Herculink stent History of repair of aneurysm of abdominal aorta using endovascular stent graft Hx of colonoscopy with polypectomy Age 62 Hx of tonsillectomy S/P appendectomy Status post endovascular aneurysm repair (EVAR) Family History Mother CAD (coronary artery disease) Chronic kidney disease (CKD) Dementia Stroke Father CAD (coronary artery disease) Cancer Diabetes Brother CAD (coronary artery disease) Cancer Lung disease Grandfather Cancer Grandmother Diabetes Family/Other Lung disease Suicide Other Hypertension Denies family history of Clotting disorder Anesthesia complication Bleeding disorder Social History Smoking and tobacco status: former smoker Quit status (tobacco): has quit using tobacco Year quit tobacco: 2005 - PPD x 35 Years Former quit date comment: Started at age 18 Second hand smoke exposure: No Smoking risk assessment/counseling performed?: No Alcohol intake: never Desire information about alcohol rehabilitation?: No Counseling given: No Desire information about substance/drug rehabilitation?: No Counseling given: No Adopted: No Caregiver/support person: No Lives independently: Yes Household members: family and children Housing: House Marital status: / Marital status details: 2006 Number of children: 12 Number of grandchildren: 4 Highest education level completed: Master's Degree Education level details: Criminal Justice service: No Current occupational status: disabled Current occupational exposures/hazards: No Pets and animals: Yes Pets & animals: cat(s), dog(s) and farm animals Farm Animals: cattle Leisure activites: reading and other Leisure activities details: watch TV Sexually active: No Current gender identity: Female Yudy/Confucianism: [employer] Special yudy needs: No Agree to transfusion: Yes Financial difficulty paying for basics: Somewhat Hard Female Reproductive History: Para: 0 Spontaneous abortions: Yes Physical Exam Const: COMMON NORMALS: patient oriented x3 and alert GENERAL APPEARANCE: frail appearing and appears older than stated age ORIENTATION/CONSCIOUSNESS: Yes awake HENMT: COMMON NORMALS: normocephalic, atraumatic, hearing grossly normal bilaterally, external ears normal, Normal external nose present and moist oral mucous membranes HEAD & SCALP: normocephalic and atraumatic NOSE: Normal external nose present EXTERNAL EAR: Yes external ears normal Neck/C-Spine: COMMON NORMALS: full ROM, no lymphadenopathy, supple, no meningeal signs, no JVD and Thyroid normal THYROID: Thyroid normal Chest: COMMONS NORMALS: normal inspection of the chest and normal palpation of entire chest wall Resp: EFFORT & INSPECTION: Yes symmetric chest movement and Yes respiratory distress (Mild respiratory distress with decreased breath sounds throughout and tachy) Cardio: COMMON NORMALS: no JVD, regular rate, regular rhythm, S1 normal heart sound present and S2 normal heart sound present RATE: regular rate RHYTHM: regular rhythm HEART SOUNDS: S1 normal heart sound present and S2 normal heart sound present GI: COMMON NORMALS: Normal to inspection, nondistended, normoactive bowel sounds present, Soft to palpation, non-tender, No hepatosplenomegaly present and no masses PALPATION: Yes Soft to palpation and Yes No hepatosplenomegaly present : COMMON NORMALS: Yes no CVA tenderness BLADDER/KIDNEY EXAM: Yes no CVA tenderness Back/Pelvis: COMMON NORMALS: no CVA tenderness Neuro: COMMON NORMALS: patient oriented x3, CN's II-XII intact bilaterally, moves all extremities, no focal motor deficits and no sensory deficits noted SENSORIUM/ORIENTATION: Yes alert MENINGEAL SIGNS: Yes no meningeal signs Psych: COMMON NORMALS: mental status grossly normal, Normal thought process present, cooperative and normal affect THOUGHT PROCESS: Normal thought process present Course Vital Signs: Vital signs: Vital Signs Temperature 98.1 F 10/19/22 09:36 Pulse Rate 82 10/19/22 13:00 Respiratory Rate 15 10/19/22 12:00 Blood Pressure 203/107 10/19/22 13:30 Pulse Oximetry 94 10/19/22 13:30 Oxygen Delivery Me thod 10/19/22 10:29 Oxygen Flow Rate 3 10/19/22 10:29 MDM - SOB/Dyspnea Medical Decision Making Patient presents to the ER by EMS for complaints of shortness of breath. Patient has COPD and home O2 usually at 2 to 4 L. When EMS arrived she was on 5 L satting 91%. But she was in a tripod position and acutely in distress. EMS gave her 125 mg Solu-Medrol, 1 DuoNeb, 1 albuterol treatment on route. Patient does have end-stage diet renal disease and is on dialysis her last dialysis day was Tuesday. Patient was able to speak in one-word sentences with audible wheezing present. Patient was immediately given 1 dose Xopenex nebulizer and lab work was obtained with an ABG that showed her pH is 7.27 PCO2 of 51.4 PO2 of 72.4 and a potassium of 6.9, EKG was obtained which did not show any hyperkalemic changes further lab work was obtained which showed a white count of 11.4 normal hemoglobin 12.6 metabolic panel showed showed a potassium of 7.1, BUN/creatinine is 67 and 5.9, troponin baseline of 275 with a 2-hour troponin of 275.5, patient was given IV insulin D50 and calcium chloride repeated in 2 hours was a BMP that showed her potassium had decreased to 6.7. Dr. Herrera was called he agreed to accept the patient in the ICU for emergent dialysis. Nephrology will be consulted. Differential Diagnosis Likely acute exacerbation of chronic obstructive airways disease; Unlikely congestive heart failure, community acquired pneumonia, asthma with exacerbation or pulmonary embolism Lab Data 10/19/22 10:01 10/19/22 10:01 Labs/Radiology: Radiology Impressions Chest X-Ray 10/19/22 09:44 IMPRESSION: Stable chest. No active disease. Laboratory Results WBC 11.4 10^3/uL (4.0-10.0) H 10/19/22 10:01 RBC 4.07 10^6/uL (4.1-5.3) L 10/19/22 10:01 Hgb 12.6 g/dL (11.5-15.3) 10/19/22 10:01 Hct 43.0 % (37.0-47.0) 10/19/22 10:01 MCV 105.7 fl (81-99) H 10/19/22 10:01 MCH 31.0 pg (28.0-34.0) 10/19/22 10:01 MCHC 29.3 g/dL (30.0-36.0) L 10/19/22 10:01 RDW 17.8 % (12.1-15.1) H 10/19/22 10:01 Plt Count 235 10^3/cmm (130-400) 10/19/22 10:01 MPV 8.8 fL (7.4-10.4) 10/19/22 10:01 Neut % (Auto) 76.1 % 10/19/22 10:01 Lymph % (Auto) 17.5 % 10/19/22 10:01 [place] % (Auto) 4.6 % 10/19/22 10:01 Eos % (Auto) 0.0 % 10/19/22 10:01 Baso % (Auto) 0.2 % 10/19/22 10:01 Neut # (Auto) 8.65 10^3/uL (1.8-7.7) H 10/19/22 10:01 Lymph # (Auto) 2.0 10^3/uL (0.8-4.8) 10/19/22 10:01 [place] # (Auto) 0.5 10^3/uL (0.2-0.9) 10/19/22 10:01 Eos # (Auto) 0.0 10^3/uL (0.0-0.8) 10/19/22 10:01 Baso # (Auto) 0.0 10^3/uL (0.0-0.1) 10/19/22 10:01 Nucleated RBC % (auto) 1.4 % 10/19/22 10:01 Nucleated RBCs # 0.2 /100WBC 10/19/22 10:01 Specimen Type Arterial 10/19/22 09:55 Sample Site Radial, right 10/19/22 09:55 ABG pH 7.27 (7.35-7.45) L 10/19/22 09:55 ABG pCO2 51.4 mmHg (35-45) H 10/19/22 09:55 ABG pO2 72.4 mmHg (80.0-100.0) L 10/19/22 09:55 ABG HCO3 23.5 mmol/L (22-26) 10/19/22 09:55 ABG O2 Saturation 91.6 10/19/22 09:55 ABG Base Excess -3.8 mmol/L (-2.0-2.0) L 10/19/22 09:55 Roly Test Pos 10/19/22 09:55 A-a O2 Gradient 12.4 mmHg (5-10) H 10/19/22 09:55 Hematocrit 36.4 % (37-47) L 10/19/22 09:55 Hgb O2 Saturation 90.4 % (95-100) L 10/19/22 09:55 Carboxyhemoglobin 0.3 %THgb (0.4-20.1) L 10/19/22 09:55 Methemoglobin 0.9 % (0.4-1.5) 10/19/22 09:55 Total Hemoglobin 11.9 g/dL (12-16) L 10/19/22 09:55 Sodium 140.0 mmol/L (131-143) 10/19/22 09:55 Potassium 6.9 mmol/L (3.5-5.0) H 10/19/22 09:55 Glucose 91.0 mg/dL (70-115) 10/19/22 09:55 Ionized Calcium 1.3 mmol/L (1.1-1.4) 10/19/22 09:55 O2 Delivery Device Nc 10/19/22 09:55 O2 Liters/Min 3.0 % 10/19/22 09:55 FiO2 32.0 % 10/19/22 09:55 Care Assistant ID [place] 10/19/22 09:55 Sodium 139 mmol/L (136-145) 10/19/22 11:57 Potassium 6.7 mmol/L (3.5-5.1) H* 10/19/22 11:57 Chloride 101 mmol/L (98-107) 10/19/22 11:57 Carbon Dioxide 20 mmol/L (22-29) L 10/19/22 11:57 Anion Gap 24.7 (5-19) H 10/19/22 11:57 BUN 68 mg/dL (8-23) H 10/19/22 11:57 Creatinine 6.3 mg/dL (0.5-0.9) H* 10/19/22 11:57 GFR Calculation 6.7 mL/min (90-130) L 10/19/22 11:57 Glucose 127 mg/dL (65-115) H 10/19/22 11:57 Calculated Osmolality 309 mOsm/kg (285-295) H 10/19/22 11:57 Calcium 11.9 mg/dL (8.5-10.5) H 10/19/22 11:57 Total Bilirubin 0.3 mg/dL (0.15-1.2) 10/19/22 10:01 AST 41 U/L (0-32) H 10/19/22 10:01 ALT 48 U/L (0-33) H 10/19/22 10:01 Alkaline Phosphatase 162 U/L (35-105) H 10/19/22 10:01 Troponin T Baseline 275 ng/L (0-10) H* 10/19/22 10:01 Troponin T 120 Minute 275.5 ng/L (0-10) H 10/19/22 11:57 Delta Troponin T 0.5 ABS# (0-10) 10/19/22 11:57 NT-Pro-B Natriuret Pep > 09134 pg/mL (0-125) H 10/19/22 10:01 Total Protein 7.3 g/dL (6.6-8.7) 10/19/22 10:01 Albumin 4.1 g/dL (3.5-5.2) 10/19/22 10:01 Globulin 3.2 g/dL (1.3-4.6) 10/19/22 10:01 EKG Data EKG 1: I personally reviewed and interpreted this EKG as follows: EKG Interpretation Date: 10/19/22 EKG interpretation time: 09:55 Prior EKG tracings: not available for review Interpretation: EKG showed normal sinus rhythm with ventricular rate of 84 bpm, [place] interval 136, QRS duration 92, QTc of 416, no ST-T wave changes Discharge Plan Discharge Patient Disposition: Admitted As Inpatient Clinical Impression: Acute hyperkalemia, Chronic kidney disease with 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 due to type 2 diabetes mellitus COPD (chronic obstructive pulmonary disease) Qualifiers: COPD type: COPD with acute exacerbation Qualified Code(s): J44.1 - Chronic obstructive pulmonary disease with (acute) exacerbation Condition: Stable Coding Level of Care Code ED Bit Sharpener for Leann Crowley
[2022-10-19 11:12] LABS: NT Pro B Type Natriuretic Pept > 70000 pg/mL (0-125)
[2022-10-19] MEDS: insulin regular-human 100 units/1 mL 10 UNIT IVP ×2 (11:13→15:00)
[2022-10-19] MEDS: calcium chloride 10% Syr 10 mL 1 GM IVP (11:20)
--- NOTE | 2022-10-19 11:59 | ECG_ITS ---
[facility] Test Date: 2022-10-19 Pat Name: Hali James Department: Room: Gender: Female Organ Installer: : 1955 Requested By: Mart Shen Order Number: [id number] Wil MD: Guillermo Culver M.D. Measurements Intervals [place] Rate: 85 P: 89 [place]: 127 QRS: 77 QRSD: 75 T: 69 QT: 357 QTc: 427 Interpretive Statements SINUS RHYTHM Compared to ECG 10/19/2022 09:55:06 No significant changes Electronically Signed On 10-20-2022 2:24:14 CDT by Guillermo Culver M.D. [id number]
[2022-10-19 12:32] LABS: Troponin 5 2HR 275.5 ng/L (0-10); Troponin 5 2HR Delta 0.5 ABS# (0-10)
[2022-10-19 12:57] LABS: Anion Gap 24.7 (5-19); Blood Urea Nitrogen 68 mg/dL (8-23); Calcium 11.9 mg/dL (8.5-10.5); Carbon Dioxide 20 mmol/L (22-29); Chloride 101 mmol/L (98-107); Glomerular Filtration Rate 6.7 mL/min (90-130); Glucose 127 mg/dL (65-115); Osmolality Calculated 309 mOsm/kg (285-295); Sodium 139 mmol/L (136-145)
[2022-10-19 13:08] LABS: Potassium 6.7 mmol/L (3.5-5.1)
--- NOTE | 2022-10-19 14:36 | P.HP_ITS ---
Providers/Chief Complaint Primary Care Provider: HERBERT Masters Chief Complaint: SOB/ LOW O2 SATS History of Present Illness Hali James is a 67 year old female With a past medical history of chronic respiratory failure with hypercapnia, COPD, end-stage renal 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, congestive heart failure, protein calorie malnutrition, physical deconditioning, muscle wasting, malnourishment, anemia, history of soft tissue mass inseparable from small portion of the gallbladder wall, recent hospitalization for pneumonia, who presents to [facility] due to increased shortness of breath. Patient tells me that she has been short of breath for the last few days, no fevers, no chills, she is on 5 L at home, she has been more short of breath with minimal exertion, no chest pain, but does have significant pleurisy, around the left lower chest wall, she tells me it hurts whenever she takes a deep breath in, when EMS arrived she was satting at 91%, tripoding, received breathing treatments, she was given several breathing treatments, now she can speak a sentence, without feeling short of breath, has decreased lung sounds bilaterally, no intercostal retractions no suprasternal retractions, does have nasal flaring she for hyperkalemia has received insulin, D50, calcium. Review of Systems Const: Denies: fever(s), chills or fatigue Card: Denies: chest pain Resp: Reports: dyspnea and non-productive cough GI: Denies: abdominal pain : Denies: flank pain or difficulty voiding Musc: Denies: back pain Skin/Breast: Reports: rash Neuro: Denies: headache(s) Medications/Allergies Home Medications Medication Instructions Recorded Confirmed Last Taken Type fluticasone propionate 50 2 spray intranasal DAILY PRN 02/21/20 10/19/22 10/18/22 History mcg/actuation nasal Allergy Symptoms spray,suspension (Flonase Allergy Relief) epinephrine 0.3 mg/0.3 mL 0.3 mg IM Q10M PRN Allergic 10/16/20 10/19/22 Unknown History injection, auto-injector Reaction metoprolol succinate 50 mg 50 mg PO BID@0830,2100 30 days #60 04/05/22 10/19/22 10/18/22 Rx tablet,extended release 24 hr tabs montelukast 10 mg tablet 10 mg PO DAILY@0830 #30 tabs 04/05/22 10/19/22 10/18/22 Rx nitroglycerin 0.4 mg sublingual 0.4 mg sublingual Q5M PRN Chest 04/05/22 10/19/22 06/12/22 Rx tablet (Nitrostat) Pain 30 days #30 tabs omeprazole 20 mg capsule,delayed 20 mg PO DAILY@0830 30 days #30 04/05/22 10/19/22 10/18/22 Rx release caps sevelamer carbonate 0.8 gram oral 0.4 g PO TID 06/12/22 10/19/22 10/18/22 History powder packet ondansetron 8 mg disintegrating 8 mg PO Q8H PRN nausea and 06/16/22 10/19/22 Unknown Rx tablet vomiting #90 tabs budesonide 0.5 mg/2 mL suspension 0.5 mg (2 mL) inhalation BID #120 06/21/22 10/19/22 10/18/22 Rx for nebulization (Pulmicort) mL formoterol fumarate 20 mcg/2 mL 2 ml inhalation Q12H #120 mL 06/21/22 10/19/22 10/18/22 Rx solution for nebulization (Perforomist) citalopram 40 mg tablet 40 mg PO DAILY@08 30 days #30 07/01/22 10/19/22 10/18/22 Rx tabs azithromycin 250 mg tablet 250 mg PO .COMPLEX COPD 90 days 07/06/22 10/19/22 10/18/22 Rx #45 tabs aspirin 81 mg tablet,delayed 81 mg PO DAILY@0830 30 days #30 08/18/22 10/19/22 10/18/22 Rx release tabs hydroxyzine HCl 50 mg tablet 50 mg PO QID PRN Anxiety 08/21/22 10/19/22 10/18/22 History ropinirole 1 mg tablet 1 mg PO BEDTIME 08/21/22 10/19/22 10/18/22 History polyethylene glycol 3350 17 gram 17 g PO DAILY PRN constipation #30 08/25/22 10/19/22 10/18/22 Rx oral powder packet ea vit B,C-folic ac 800 mcg-zinc 12.5 1 tab PO QPM 09/08/22 10/19/22 10/18/22 History mg-selen-D3 2,000 unit-vit E tablet (RenaPlex-D) losartan 50 mg tablet 100 mg PO DAILY 09/13/22 10/19/22 10/18/22 History atorvastatin 40 mg tablet 40 mg PO QAM 09/16/22 10/19/22 10/18/22 History isosorbide mononitrate 60 mg 60 mg PO DAILY@0830 09/16/22 10/19/22 10/18/22 History tablet,extended release 24 hr levothyroxine 50 mcg tablet 50 mcg PO QAM 09/16/22 10/19/22 10/18/22 History revefenacin 175 mcg/3 mL solution 175 mcg inhalation QAM 09/16/22 10/19/22 10/18/22 History for nebulization amlodipine 5 mg tablet 5 mg PO DAILY 30 days #30 tabs 09/23/22 10/19/22 10/18/22 Rx buspirone 15 mg tablet 15 mg PO BID #60 tabs 09/27/22 10/19/22 10/18/22 Rx hydrocodone 5 mg-acetaminophen 325 1 tab PO BID PRN pain/dyspnea 1 10/01/22 10/19/22 Unknown Rx mg tablet month #60 tabs albuterol sulfate 2.5 mg/3 mL 2.5 mg (3 mL) inhalation QID PRN 10/13/22 10/19/22 10/19/22 Rx (0.083 %) solution for nebulization Shortness Of Breath 30 days #75 mL albuterol sulfate 90 mcg/actuation 2 puff inhalation 6XD PRN 10/13/22 10/19/22 10/19/22 Rx aerosol inhaler Shortness Of Breath #6.7 grams prednisone 5 mg tablet 5 mg PO DAILY #30 tabs 10/13/22 10/19/22 10/18/22 Rx Allergies Allergy/AdvReac Type Severity Reaction Status Date / Time lisinopril Allergy Severe anaphylaxis Verified 10/19/22 09:47 Sulfa (Sulfonamide AdvReac Intermediate Itching, Verified 10/19/22 09:47 Antibiotics) burning PFSH Acute PFSH: Medical History (Updated 10/19/22 @ 14:49 by Volodymyr Duran MD) AAA (abdominal aortic aneurysm) 4.1 x 4.4 x 5.7 cm 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 Anemia Anxiety attack Atypical chest pain Brain aneurysm Chest pain Chest pain Chronic kidney disease CKD stage III, solitary kidney Chronic migraine without aura, intractable, with status migrainosus Congestive heart failure COPD (chronic obstructive pulmonary disease) COPD with acute exacerbation Depression Elevated troponin End-stage renal disease needing dialysis Endoleak post (EVAR) endovascular aneurysm repair Fear associated with healthcare Gallbladder abnormality GERD (gastroesophageal reflux disease) History of stent insertion of renal artery Hypercholesteremia Hypertension Hypertensive urgency Resolved Hyponatremia Hypothyroidism Inguinal swelling Major depressive disorder, recurrent severe without psychotic features Malnourished Normal colonoscopy NSTEMI (non-ST elevated myocardial infarction) Osteoporosis Peripheral vascular disease Protein-energy malnutrition Psychiatric care Restless leg Solitary kidney Surgical History H/O: hysterectomy History of renal stent Herculink stent History of repair of aneurysm of abdominal aorta using endovascular stent graft Hx of colonoscopy with polypectomy Age 62 Hx of tonsillectomy S/P appendectomy Status post endovascular aneurysm repair (EVAR) Family History Mother CAD (coronary artery disease) Chronic kidney disease (CKD) Dementia Stroke Father CAD (coronary artery disease) Cancer Diabetes Brother CAD (coronary artery disease) Cancer Lung disease Grandfather Cancer Grandmother Diabetes Family/Other Lung disease Suicide Other Hypertension Denies family history of Clotting disorder Anesthesia complication Bleeding disorder Social History Smoking and tobacco status: former smoker Quit status (tobacco): has quit using tobacco Year quit tobacco: 2005 - PPD x 35 Years Former quit date comment: Started at age 18 Second hand smoke exposure: No Smoking risk assessment/counseling performed?: No Alcohol intake: never Desire information about alcohol rehabilitation?: No Counseling given: No Desire information about substance/drug rehabilitation?: No Counseling given: No Adopted: No Caregiver/support person: No Lives independently: Yes Household members: family and children Housing: House Marital status: / Marital status details: 2005 Number of children: 12 Number of grandchildren: 4 Highest education level completed: Master's Degree Education level details: Criminal Justice service: No Current occupational status: disabled Current occupational exposures/hazards: No Pets and animals: Yes Pets & animals: cat(s), dog(s) and farm animals Farm Animals: cattle Leisure activites: reading and other Leisure activities details: watch TV Sexually active: No Current gender identity: Female Yudy/Adventism: [employer] Special yudy needs: No Agree to transfusion: Yes Financial difficulty paying for basics: Somewhat Hard Female Reproductive History: Para: 0 Spontaneous abortions: Yes Vitals/I&O/Wt Last Vital Signs Temp 98.1 F 10/19/22 09:36 Pulse 82 10/19/22 13:00 Resp 15 10/19/22 12:00 BP 203/107 10/19/22 13:30 Pulse Ox 94 10/19/22 13:30 O2 Del Method 10/19/22 10:29 O2 Flow Rate 3 10/19/22 10:29 Weight last 48 hrs Weight 32.205 kg Physical Exam Const: COMMON NORMALS: no acute distress and patient oriented x3 HENMT: COMMON NORMALS: normocephalic Eye: COMMON NORMALS: Equal, round and reactive pupils present and EOMs intact bilaterally Neck/C-Spine: COMMON NORMALS: full ROM and no lymphadenopathy Resp: COMMON NORMALS: normal respiratory effort, No retractions and No use of accessory muscles AUSCULTATION: diminished lung sounds diffuse Cardio: COMMON NORMALS: no JVD, regular rate, regular rhythm, S1 normal heart sound present and S2 normal heart sound present RATE: regular rate RHYTHM: regular rhythm HEART SOUNDS: S1 normal heart sound present and S2 normal heart sound present GI: COMMON NORMALS: Normal to inspection, nondistended, normoactive bowel sounds present, Soft to palpation and non-tender : COMMON NORMALS: Yes no CVA tenderness Extremity: COMMON NORMALS: no pedal edema Neuro: COMMON NORMALS: patient oriented x3, CN's II-XII intact bilaterally, moves all extremities and no focal motor deficits Psych: COMMON NORMALS: mental status grossly normal Skin: NARRATIVE SKIN EXAM: Patient has a superficial skin break, right lower extremity OTHER: Has peripheral wasting, muscle wasting temporal muscle wasting, muscle wasting of the legs, specifically of the thighs, over the arms, Data 10/19/22 10:01 10/19/22 11:57 Other data: - I personally reviewed chest x-ray, no focal pneumonia -I personally reviewed EKG, no acute ST-T wave changes A&P Assessment and plan (1) Acute hyperkalemia: (2) Chronic kidney disease with 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 due to type 2 diabetes mellitus: (3) Depression: (4) Shortness of breath: (5) Physical deconditioning: (6) Muscle wasting: (7) Protein calorie malnutrition: (8) End stage renal 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: (9) NSTEMI (non-ST elevated myocardial infarction): (10) Congestive heart failure: Qualifiers: Heart failure chronicity: acute on chronic Heart failure type: unspecified Qualified Code(s): I50.9 - Heart failure, unspecified (11) ESRD on dialysis: (12) Acute and chronic respiratory failure: (13) COPD with acute exacerbation: (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: (15) Transaminitis: (16) Metabolic acidosis: Plan Acute hypoxic hypercarbic respiratory failure -Likely multifactorial -From COPD exacerbation -From fluid overload, diastolic CHF exacerbation -Plan -Monitor in ICU -Monitor respiratory status closely -Ipratropium -Budesonide -Solu-Medrol 40 every 8 hours -Doxycycline 100 every 8 hours -Patient will receive urgent dialysis -We will order CT angiogram of the chest, as she has a history of a gallbladder mass, as she has a history of soft tissue mass inseparable from small portion of the gallbladder wall Acute hyperkalemia -Potassium 7.1 -Status post insulin D50 calcium -Potassium is still 6.7, will give another 10 units IV push insulin, with 1 amp of D50, Kayexalate -Patient will receive dialysis today Metabolic acidosis -Likely secondary to acute respiratory failure, missed dialysis COPD exacerbation -As above -CHF exacerbation -As above Type II NSTEMI -Likely supply demand ischemia from acute respiratory failure as above -However cannot rule out a cardiac etiology -Serial EKGs, serial troponins, telemetry monitoring End-stage renal disease, on dialysis -Nephrology consulted soft tissue mass inseparable from small portion of the gallbladder wall -CA 19 -Given transaminitis, will order right upper quadrant ultrasound Protein calorie malnutrition, protein shakes Physical deconditioning Anorexia, malnourishment Goals of care, patient wants to be a full code agreeable to elective interval to patient if required Lovenox for DVT prophylax Protonix for GI prophylaxis Spoke to nephrology Spoke to ER provider Critical care time spent over 40 minutes, due to hyperkalemia, fluid overload, acute respiratory failure Attestations Medical Necessity Statement*: Patient requires hospitalization for acute respiratory failure, COPD exacerbation, CHF exacerbation, diastolic, fluid overload, hyperkalemia, transaminitis, NSTEMI, metabolic acidosis Coding Level of Care Code Critical Care >/= 30 minutes Critical care time (in minutes): 40 The high probability of a clinically significant, sudden or life threatening deterioration, as referenced in this documentation, required my full and direct attention, intervention and personal management. The critical care time shown is in addition to time spent performing any reported separately billable procedures and includes the following: [x] Data and vital sign review and interpretation [x ] Patient assessment, examination and intervention [x] Medication orders and management [x] Patient/Family updates as able [x] Care Coordination and Documentation. Diagnoses Acute hyperkalemia E87.5 Chronic kidney disease with 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 due to type 2 diabetes mellitus E11.22; N18.6; Z99.2 Depression F32.A Shortness of breath R06.02 Physical deconditioning R53.81 Muscle wasting M62.50 Protein calorie malnutrition E46 End stage renal 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 N18.6; Z99.2 NSTEMI (non-ST elevated myocardial infarction) I21.4 Congestive heart failure I50.9 Heart failure chronicity: acute on chronic Heart failure type: unspecified ESRD on dialysis N18.6; Z99.2 Acute and chronic respiratory failure J96.20 COPD with acute exacerbation J44.1 Gallbladder anomaly Q44.1 Transaminitis R74.01 Metabolic acidosis E87.20
--- NOTE | 2022-10-19 14:41 | CT_ITS ---
WS: [id number] CTA OF THE CHEST WITH PULMONARY EMBOLISM PROTOCOL TECHNIQUE: High-resolution contrast enhanced CTA of the chest with coronal and sagittal reformatted i mages with pulmonary embolism protocol. MIP images are also reviewed. CLINICAL INFORMATION: sob COMPARISON: None. DLP: 148.[address] scans at [facility] use at least one of these dose optimization techniques: automated e xposure control; mA and/or kV adjustment per patient size (includes targeted exams where dose is matc hed to clinical indication); or iterative reconstruction. FINDINGS: Proximal main pulmonary arteries are normal. Normal segmental and subsegmental pulmonary arteries. No evidence of pulmonary embolus. Moderate chronic emphysematous changes. No focal pneumonia or pleural fluid. Slight atelectasis RIGHT lower lobe. Tiny amount of hazy infiltrate in the LEFT upper lobe an teriorly likely infectious or inflammatory. Normal caliber thoracic aorta. Aortic calcification. Kalyan nary calcification. Adrenal glands are normal. Bilateral renal atrophy. Partially visualized aortic endograft. Moderate t horacic kyphosis. Chronic appearing anterior wedging in the mid thoracic spine. Diffuse body wall zheng sarca. CT/CT angio chest PE protcl [id number] IMPRESSION: 1. No evidence for pulmonary embolus. 2. Moderate chronic emphysematous changes. 3. Small amount of patchy hazy infiltrate in the LEFT upper lobe anteriorly li jaime infectious or inflammatory. 4. No significant pleural fluid. 5. Partially visualized aortic endograft appear similar to the prior studies.
[2022-10-19] MEDS: sodium polystyrene sulfonate 15 gm/60 mL Btl PO (14:59)
[2022-10-19 15:03] LABS: Lactic Sepsis W/Reflex 1.1 mmol/L (0.5-2.2)
[2022-10-19 15:14] LABS: Procalcitonin 1.11 ng/mL (0-0.5)
[2022-10-19] MEDS: iohexol 350 mg/mL 500 mL Btl (per mL) IV (15:50)
[2022-10-19 15:52] LABS: Cancer Antigen 19 9 33.67 U/mL (0-35)
[2022-10-19] MEDS: ipratropium-albuterol 3 mL Neb INHALATION ×2 (16:10→19:50)
[2022-10-19] MEDS: morphine 4 mg/mL SDV 1 mL 1 MG IVP ×2 (16:11→21:28)
[2022-10-19] MEDS: pantoprazole 40 mg SDV IVP (16:19)
[2022-10-19] MEDS: enoxaparin 30 mg/0.3 mL Syringe SUBCUT (16:21)
[2022-10-19] MEDS: LORazepam 2 mg/mL INJ 1 mL 0.5 MG IVP (16:26)
[2022-10-19] MEDS: dexmedetomidine 400 MCG in sodium chloride 0.9% (100 ml) 100 ML IV (16:29)
[2022-10-19 16:40] LABS: Thyroid Stimulating Hormone 51.78 uIU/mL (0.27-4.20)
[2022-10-19 16:45] LABS: Troponin 5 6HR Delta -6.8 ng/L (0-12)
[2022-10-19 16:50] LABS: Troponin 5 6HR 268.2 ng/L (0-10)
[2022-10-19 17:04] LABS: Hepatitis C Virus Antibody Non-Reactive (Nonreactive)
--- NOTE | 2022-10-19 17:37 | ECG_ITS ---
[facility] Test Date: 2022-10-19 Pat Name: Hali James Department: Room: [facility] Gender: Female Rn Social Work: : 1955 Requested By: Mart Shen Order Number: [id number] Wil MD: Guillermo Culver M.D. Measurements Intervals [place] Rate: 98 P: 74 OK: 155 QRS: 64 QRSD: 84 T: 49 QT: 346 QTc: 443 Interpretive Statements SINUS RHYTHM POSSIBLE ANTERIOR MYOCARDIAL INFARCTION , OF INDETERMINATE AGE [30 ms Q WAVE IN V3/V4, OR R < 0.2 mV IN V4] Compared to ECG 10/19/2022 11:59:23 Myocardial infarct finding now present Electronically Signed On 10-20-2022 2:24:53 CDT by Guillermo Culver M.D. [id number]
[2022-10-19 17:41] LABS: Hepatitis B Core AB, Total Non-Reactive (Nonreactive); Hepatitis B Surface AB 70.4 (11.5-1000); Hepatitis B Surface Antigen Non-Reactive (Nonreactive)
[2022-10-19] MEDS: BuSPIRONE 10 mg Tablet 15 MG PO (17:50)
--- NOTE | 2022-10-19 17:55 | PC.NURSE ---
Patient arrived to ICU from ER at approximately 1600. Patient in bed very anxious at this time. Notified Dr. Duran of patients condition, received orders for precedex and ativan, see MAR for administration.
[2022-10-19] MEDS: budesonide 0.5 mg/2 mL Neb INHALATION (19:50)
[2022-10-19] MEDS: ropinirole 1 mg Tablet PO (21:11)
[2022-10-19] MEDS: metoprolol succinate ER (24 HR) 50 mg Tablet PO (21:11)
[2022-10-19] MEDS: sevelamer 800 mg Tablet 400 MG PO (21:28)
--- NOTE | 2022-10-19 21:33 | PM.CONSULT ---
Providers/Reason For Consult Consulting Physician/Specialty*: [facility]/Nephrology Reason for Consult*: ESRD Attending Physician: Volodymyr Duran MD Primary Care Provider: HERBERT Masters History of Present Illness History of Present Illness Hali James is a 67 year old female with past medical history of end-stage renal disease, COPD CHF, anemia, hypertension was brought to the ER via EMS due to worsening shortness of breath, patient was noted to be hypoxic. In ER blood pressure is elevated more than 200 systolic. Lab data significant for hyperkalemia with a potassium of 6.7. Review of Systems Narrative: + SOB Medications/Allergies Home Medications Medication Instructions Recorded Confirmed Last Taken Type fluticasone propionate 50 2 spray intranasal DAILY PRN 02/21/20 10/19/22 10/18/22 History mcg/actuation nasal Allergy Symptoms spray,suspension (Flonase Allergy Relief) epinephrine 0.3 mg/0.3 mL 0.3 mg IM Q10M PRN Allergic 10/16/20 10/19/22 Unknown History injection, auto-injector Reaction metoprolol succinate 50 mg 50 mg PO BID@0830,2100 30 days #60 04/05/22 10/19/22 10/18/22 Rx tablet,extended release 24 hr tabs montelukast 10 mg tablet 10 mg PO DAILY@0830 #30 tabs 04/05/22 10/19/22 10/18/22 Rx nitroglycerin 0.4 mg sublingual 0.4 mg sublingual Q5M PRN Chest 04/05/22 10/19/22 06/12/22 Rx tablet (Nitrostat) Pain 30 days #30 tabs omeprazole 20 mg capsule,delayed 20 mg PO DAILY@0830 30 days #30 04/05/22 10/19/22 10/18/22 Rx release caps sevelamer carbonate 0.8 gram oral 0.4 g PO TID 06/12/22 10/19/22 10/18/22 History powder packet ondansetron 8 mg disintegrating 8 mg PO Q8H PRN nausea and 06/16/22 10/19/22 Unknown Rx tablet vomiting #90 tabs budesonide 0.5 mg/2 mL suspension 0.5 mg (2 mL) inhalation BID #120 06/21/22 10/19/22 10/18/22 Rx for nebulization (Pulmicort) mL formoterol fumarate 20 mcg/2 mL 2 ml inhalation Q12H #120 mL 06/21/22 10/19/22 10/18/22 Rx solution for nebulization (Perforomist) citalopram 40 mg tablet 40 mg PO DAILY@0830 30 days #30 07/01/22 10/19/22 10/18/22 Rx tabs azithromycin 250 mg tablet 250 mg PO .COMPLEX COPD 90 days 07/06/22 10/19/22 10/18/22 Rx #45 tabs aspirin 81 mg tablet,delayed 81 mg PO DAILY@0830 30 days #30 08/18/22 10/19/22 10/18/22 Rx release tabs hydroxyzine HCl 50 mg tablet 50 mg PO QID PRN Anxiety 08/21/22 10/19/22 10/18/22 History ropinirole 1 mg tablet 1 mg PO BEDTIME 08/21/22 10/19/22 10/18/22 History polyethylene glycol 3350 17 gram 17 g PO DAILY PRN constipation #30 08/25/22 10/19/22 10/18/22 Rx oral powder packet ea vit B,C-folic ac 800 mcg-zinc 12.5 1 tab PO QPM 09/08/22 10/19/22 10/18/22 History mg-selen-D3 2,000 unit-vit E tablet (RenaPlex-D) losartan 50 mg tablet 100 mg PO DAILY 09/13/22 10/19/22 10/18/22 History atorvastatin 40 mg tablet 40 mg PO QAM 09/16/22 10/19/22 10/18/22 History isosorbide mononitrate 60 mg 60 mg PO DAILY@0830 09/16/22 10/19/22 10/18/22 History tablet,extended release 24 hr levothyroxine 50 mcg tablet 50 mcg PO QAM 09/16/22 10/19/22 10/18/22 History revefenacin 175 mcg/3 mL solution 175 mcg inhalation QAM 09/16/22 10/19/22 10/18/22 History for nebulization amlodipine 5 mg tablet 5 mg PO DAILY 30 days #30 tabs 09/23/22 10/19/22 10/18/22 Rx buspirone 15 mg tablet 15 mg PO BID #60 tabs 09/27/22 10/19/22 10/18/22 Rx hydrocodone 5 mg-acetaminophen 325 1 tab PO BID PRN pain/dyspnea 1 10/01/22 10/19/22 Unknown Rx mg tablet month #60 tabs albuterol sulfate 2.5 mg/3 mL 2.5 mg (3 mL) inhalation QID PRN 10/13/22 10/19/22 10/19/22 Rx (0.083 %) solution for nebulization Shortness Of Breath 30 days #75 mL albuterol sulfate 90 mcg/actuation 2 puff inhalation 6XD PRN 10/13/22 10/19/22 10/19/22 Rx aerosol inhaler Shortness Of Breath #6.7 grams prednisone 5 mg tablet 5 mg PO DAILY #30 tabs 10/13/22 10/19/22 10/18/22 Rx Allergies Allergy/AdvReac Type Severity Reaction Status Date / Time lisinopril Allergy Severe anaphylaxis Verified 10/19/22 09:47 Sulfa (Sulfonamide AdvReac Intermediate Itching, Verified 10/19/22 09:47 Antibiotics) burning Current Medications Generic Name Dose Route Start Last Admin Trade Name Freq PRN Reason Stop Dose Admin Albuterol/Ipratropium 3 ml 10/19/22 16:00 10/19/22 19:50 Ipratropium-Albuterol 3 Ml Neb INHALATION 3 ml QID.RESPIRATORY APOLONIA Administration Budesonide 0.5 mg 10/19/22 20:00 10/19/22 19:50 Budesonide 0.5 Mg/2 Ml Neb INHALATION 0.5 mg BID.RESPIRATORY APOLONIA Administration Buspirone HCl 15 mg 10/19/22 18:00 10/19/22 17:50 Buspirone 10 Mg Tablet PO 15 mg BID APOLONIA Administration Enoxaparin Sodium 30 mg 10/19/22 15:57 10/19/22 16:21 Enoxaparin 30 Mg/0.3 Ml Syringe SUBCUT 30 mg Q24H APOLONIA Administration Dexmedetomidine HCl 400 mcg/ 104 mls @ 0 mls/hr 10/19/22 16:15 10/19/22 19:39 Sodium Chloride IV 0.2 mcg/kg/hr .Q0M APOLONIA 1.68 mls/hr Titration Protocol Per Protocol Lorazepam 0.5 mg 10/19/22 16:17 10/19/22 16:26 Lorazepam 2 Mg/Ml Inj 1 Ml IVP 0.5 mg Q4H PRN Administration ANXIETY Methylprednisolone Sodium Succinate 40 mg 10/19/22 15:57 10/19/22 16:16 Methylprednisolone Sod Succ 40 Mg/Ml Inj IVP 40 mg Q8H APOLONIA Administration Metoprolol Succinate 50 mg 10/19/22 21:00 10/19/22 21:11 Metoprolol Succinate Er (24 Hr) 50 Mg Tablet PO 50 mg BID@0830,2100 APOLONIA Administration Morphine Sulfate 1 mg 10/19/22 15:57 10/19/22 21:28 Morphine 4 Mg/Ml Sdv 1 Ml IVP 1 mg Q4H PRN Administration SEVERE PAIN Non-Formulary Medication 1 tab 10/19/22 18:00 10/19/22 17:49 Vit B,K-Rk-Bqow-Selen-Vit D3-E [Renaplex-D] PO Not Given QPM APOLONIA Pantoprazole Sodium 40 mg 10/19/22 15:57 10/19/22 16:19 Pantoprazole 40 Mg Sdv IVP 40 mg Q24H APOLONIA Administration Ropinirole HCl 1 mg 10/19/22 21:00 10/19/22 21:11 Ropinirole 1 Mg Tablet PO 1 mg BEDTIME APOLONIA Administration Sevelamer Carbonate 400 mg 10/19/22 21:30 10/19/22 21:28 Sevelamer 800 Mg Tablet PO 400 mg TID APOLONIA Administration PFSH Acute PFSH: Medical History (Updated 10/19/22 @ 14:49 by Volodymyr Duran MD) AAA (abdominal aortic aneurysm) 4.1 x 4.4 x 5.7 cm 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 Anemia Anxiety attack Atypical chest pain Brain aneurysm Chest pain Chest pain Chronic kidney disease CKD stage III, solitary kidney Chronic migraine without aura, intractable, with status migrainosus Congestive heart failure COPD (chronic obstructive pulmonary disease) COPD with acute exacerbation Depression Elevated troponin End-stage renal disease needing dialysis Endoleak post (EVAR) endovascular aneurysm repair Fear associated with healthcare Gallbladder abnormality GERD (gastroesophageal reflux disease) History of stent insertion of renal artery Hypercholesteremia Hypertension Hypertensive urgency Resolved Hyponatremia Hypothyroidism Inguinal swelling Major depressive disorder, recurrent severe without psychotic features Malnourished Normal colonoscopy NSTEMI (non-ST elevated myocardial infarction) Osteoporosis Peripheral vascular disease Protein-energy malnutrition Psychiatric care Restless leg Solitary kidney Surgical History H/O: hysterectomy History of renal stent Herculink stent History of repair of aneurysm of abdominal aorta using endovascular stent graft Hx of colonoscopy with polypectomy Age 62 Hx of tonsillectomy S/P appendectomy Status post endovascular aneurysm repair (EVAR) Family History Mother CAD (coronary artery disease) Chronic kidney disease (CKD) Dementia Stroke Father CAD (coronary artery disease) Cancer Diabetes Brother CAD (coronary artery disease) Cancer Lung disease Grandfather Cancer Grandmother Diabetes Family/Other Lung disease Suicide Other Hypertension Denies family history of Clotting disorder Anesthesia complication Bleeding disorder Social History Smoking and tobacco status: former smoker Quit status (tobacco): has quit using tobacco Year quit tobacco: 2005 - PPD x 35 Years Former quit date comment: Started at age 18 Second hand smoke exposure: No Smoking risk assessment/counseling performed?: No Alcohol intake: never Desire information about alcohol rehabilitation?: No Counseling given: No Desire information about substance/drug rehabilitation?: No Counseling given: No Adopted: No Caregiver/support person: No Lives independently: Yes Household members: family and children Housing: House Marital status: / Marital status details: 2006 Number of children: 12 Number of grandchildren: 4 Highest education level completed: Master's Degree Education level details: Criminal Justice service: No Current occupational status: disabled Current occupational exposures/hazards: No Pets and animals: Yes Pets & animals: cat(s), dog(s) and farm animals Farm Animals: cattle Leisure activites: reading and other Leisure activities details: watch TV Sexually active: No Current gender identity: Female Yudy/Congregational: Confucianism [employer] Special yudy needs: No Agree to transfusion: Yes Financial difficulty paying for basics: Somewhat Hard Female Reproductive History: Para: 0 Spontaneous abortions: Yes Vitals/I&O/Wt Last Vital Signs Temp 97.3 F L 10/19/22 21:24 Pulse 85 10/19/22 21:24 Resp 16 10/19/22 21:24 BP 101/65 10/19/22 21:24 Pulse Ox 94 10/19/22 19:50 O2 Del Method 10/19/22 19:50 O2 Flow Rate 3.5 10/19/22 19:50 10/19/22 10/19/22 10/19/22 06:59 14:59 22:59 Intake Total 402.66 / 402.66 Output Total 2975 / 2975 Balance -2572.34 / -2572.34 Weight last 48 hrs Weight 32.5 kg Weight 32.205 kg Physical Exam Narrative: Patient awake alert, in mild respiratory distress has tachypnea. No pedal edema Urinary Catheter Management: Martins: Cath Placed During This Visit: yes Reason for Continuing Indwelling Catheter: Accurate Measurement of Urinary Output in Critically Ill Patients Urinary Catheter Date of Insertion: 10/19/22 Urinary Catheter Time of Insertion: 17:31 Data 10/19/22 10:01 10/19/22 11:57 Micro: Microbiology 10/19/22 17:27 Blood Culture - Preliminary Blood SPECIMEN COLLECTED A&P Assessment and plan (1) ESRD on dialysis: (2) End stage renal 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: Coding Level of Care Code Acute Code for Chg Fwd Diagnoses ESRD on dialysis N18.6; Z99.2 End stage renal 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 N18.6; Z99.2
[2022-10-19] MEDS: doxycycline 100 MG in sodium chloride 0.9% (plus) 100 ML IV (22:39)
[2022-10-20] VITALS (68 sets, daily range): BP systolic 90–197; BP diastolic 41–146; PULSE 59–101; RESP 11–24; TEMP 36.4–37.1; O2SAT 83–100
[2022-10-20] MEDS: hyDRALAzine 20 mg/mL INJ 1 mL 10 MG IVP (02:16)
[2022-10-20 02:23] LABS: Basophils % 0.1 %; Hematocrit 36.8 % (37.0-47.0); Hemoglobin 10.8 g/dL (11.5-15.3); Lymphocytes # 1.6 10^3/uL (0.8-4.8); Mean Corpuscular HGB Conc 29.3 g/dL (30.0-36.0); Mean Corpuscular Hemoglobin 30.8 pg (28.0-34.0); Mean Corpuscular Volume 104.8 fl (81-99); Mean Platelet Volume 9.1 fL (7.4-10.4); Monocytes # 0.6 10^3/uL (0.2-0.9); Monocytes % 4.8 %; Neutrophils % 80.1 %; Nucleated Red Blood Cells # 0.3 /100WBC; Nucleated Red Blood Cells % 2.2 %; Platelet Count 181 10^3/cmm (130-400); Red Blood Count 3.51 10^6/uL (4.1-5.3); Red Cell Distribution Width 17.7 % (12.1-15.1); White Blood Count 11.6 10^3/uL (4.0-10.0)
--- NOTE | 2022-10-20 02:41 | PC.NURSE ---
Patients BP remained elevated consistently. Dr. Suarez notified and order of Hydralazine 10 mg IVP.
[2022-10-20] MEDS: LORazepam 2 mg/mL INJ 1 mL 0.5 MG IVP ×3 (05:00→14:46)
[2022-10-20] MEDS: morphine 4 mg/mL SDV 1 mL 1 MG IVP ×4 (05:00→23:48)
[2022-10-20 05:30] LABS: Anion Gap 20.2 (5-19); Blood Urea Nitrogen 33 mg/dL (8-23); Calcium 9.7 mg/dL (8.5-10.5); Carbon Dioxide 24 mmol/L (22-29); Chloride 100 mmol/L (98-107); Glomerular Filtration Rate 11.9 mL/min (90-130); Glucose 76 mg/dL (65-115); Magnesium 2.2 mg/dL (1.7-2.3); Osmolality Calculated 294 mOsm/kg (285-295); Phosphorus 3.6 mg/dL (2.5-4.5); Potassium 5.2 mmol/L (3.5-5.1); Sodium 139 mmol/L (136-145)
[2022-10-20] MEDS: atorvastatin 40 mg Tablet PO (05:30)
[2022-10-20] MEDS: levothyroxine 50 mcg Tablet PO (05:30)
--- NOTE | 2022-10-20 06:34 | PC.NURSE ---
Patient woke up in a panic, RT at bedside. Patient SOB, pursed lip breathing with abdominal muscle use. Patient stating I can't breathe, somebody help me Nasal cannula titrated up to 4 L. Precedex and ativan administered for anxiety. Morphine administered for pain. Patient O2 maintained in the 90's throughout event.
[2022-10-20] MEDS: sevelamer 800 mg Tablet 400 MG PO ×3 (08:15→20:19)
[2022-10-20] MEDS: aspirin 81 mg EC Tablet PO (08:15)
[2022-10-20] MEDS: metoprolol succinate ER (24 HR) 50 mg Tablet PO ×2 (08:15→20:19)
[2022-10-20] MEDS: predniSONE 5 mg Tablet PO (08:15)
[2022-10-20] MEDS: isosorbide mononitrate ER 60 mg Tablet PO (08:15)
[2022-10-20] MEDS: montelukast sodium 10 mg Tablet PO (08:15)
[2022-10-20] MEDS: citalopram 20 mg Tablet 40 MG PO (08:15)
[2022-10-20] MEDS: losartan 50 mg Tablet 100 MG PO (08:16)
[2022-10-20] MEDS: BuSPIRONE 10 mg Tablet 15 MG PO ×2 (08:16→17:45)
[2022-10-20] MEDS: amlodipine 5 mg Tablet PO (08:16)
[2022-10-20] MEDS: doxycycline 100 MG in sodium chloride 0.9% (plus) 100 ML IV (08:19)
--- NOTE | 2022-10-20 08:35 | US_ITS ---
WS: [id number] ABDOMINAL ULTRASOUND LIMITED REASON FOR EXAM: mass COMPARISON: None available. ORDER DATE: 10/20/2022 8:59 AM TECHNIQUE: Grayscale and Doppler ultrasound examination of the abdomen. COMPARISON: Prior CT 07/09/2022 and renal ultrasound 05/10/2022 Liver: 13 .9 cm in length. . Mild coarse echotexture. No bile duct dilatation or mass. Gallbladder: Normally distended gallbladder. Elongated soft tissue density within the gallbladder lumen extends along the dependent wall measuring 2.5 x 1.7 x 0.8 cm. There is no increased vascularity. There is no shadowing and it seems inseparable from the posterior RIGHT gallbladder wall. No adjacent inflammation. Portal vein 9 mm diameter with hepatopedal flow. Pancreas: Obscured by bowel gas. CBD: 0.3 cm. Right kidney: 50 x 24 x 28 mm. Cortex 6 mm Moderate atrophy. No hydronephrosis or solid mass. Aorta not well seen from the bowel artifact but apparently has measuring up to 33 mm in diameter but lumen is only measuring 13 mm with the remainder being circumferential wall thickening and indwelling stent graft area US/US gall bladder [id number] IMPRESSION: 1. Abnormal gallbladder. Nonshadowing soft tissue density inseparable from a sm all portion of the gallbladder measuring 2.5 x 1.7 x 0.8 cm. Differential includes polyp, tumefact sebastian sludge and neoplasm. MR may be able to differentiate between these possibilities. 2. Moderate atrophy RIGHT kidney and severe atrophy LEFT kidney. 3. RIGHT pleural effusion.
[2022-10-20] MEDS: budesonide 0.5 mg/2 mL Neb INHALATION ×2 (08:38→20:07)
[2022-10-20] MEDS: ipratropium-albuterol 3 mL Neb INHALATION ×4 (08:38→20:07)
[2022-10-20 09:09] LABS: Free T4 Free Thyroxine 0.76 ng/dL (0.82-1.77); T3 Free 0.9 PG/ML (2.0-4.4)
[2022-10-20] MEDS: vancomycin 500 MG in sodium chloride 0.9% (plus) 100 ML 200 MG IV (09:51)
--- NOTE | 2022-10-20 10:00 | PC.PHAR ---
PHARMACY TO DOSE CONSULT With the patient's current vitals and laboratory results, the vancomycin was calculated at 500mg every 96 hours for a predicted trough of 33.4 mcg/ml and a trough of 11.75mcg/ml. With a CrCl <20, the patient was indicated for a zosyn dose of 3.375gm every 12 hours at the extended-infusion time. Will continue to monitor the patient's renal function and make adjustments as needed. Please let us know if there is anything else you need. Thanks, Babar Wilde, Pharm.D
[2022-10-20] MEDS: piperacillin-tazobactam 3.375 GM in sodium chloride 0.9% (plus) 50 ML IV ×2 (10:04→20:20)
--- NOTE | 2022-10-20 11:51 | PM.PN ---
Subjective Subjective: sedated Medications: Reviewed: Yes Vitals/I&O/Wt Last Vital Signs Temp 98.8 F 10/20/22 04:00 Pulse 89 10/20/22 11:47 Resp 22 H 10/20/22 11:41 BP 179/100 10/20/22 08:16 Pulse Ox 98 10/20/22 11:41 O2 Del Method Nasal Cannula 10/20/22 11:41 O2 Flow Rate 2 10/20/22 11:41 10/19/22 10/20/22 10/20/22 22:59 06:59 14:59 Intake Total 762.66 / 762.66 477.136 / 1239.796 300 / 300 Output Total 2975 / 2975 Balance -2212.34 / -2212.34 477.136 / -1735.204 300 / 300 Weight last 48 hrs Weight 32.5 kg Weight 32.205 kg Physical Exam Narrative: sedated , no distress Urinary Catheter Management: Martins: Cath Placed During This Visit: yes Reason for Continuing Indwelling Catheter: Accurate Measurement of Urinary Output in Critically Ill Patients Urinary Catheter Date of Insertion: 10/19/22 Urinary Catheter Time of Insertion: 17:31 Data 10/20/22 02:03 10/20/22 02:03 Micro: Microbiology 10/19/22 22:28 Blood Culture - Preliminary Blood SPECIMEN COLLECTED 10/19/22 17:27 Blood Culture - Preliminary Blood SPECIMEN COLLECTED A&P Assessment and plan (1) ESRD on dialysis: (2) End stage renal 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: 1. ESRD : Pt missed HD . s/p HD yesterday and plan for HD again today 2. Hyperkalemia : s/p HD 3. Acute on chronic Respiratory failure :multifactorial , Hypercapneic, hypoxic , Volume overload and COPD Plan as above- HD and abx. d/c per medicine Attestations Medical Necessity Statement*: PER MEDICINE TEAM Coding Level of Care Code Acute Code for Chg Fwd Diagnoses ESRD on dialysis N18.6; Z99.2
[2022-10-20] MEDS: liothyronine 5 mcg Tablet 10 MCG PO (13:56)
--- NOTE | 2022-10-20 14:21 | PM.PN ---
Subjective Subjective: Patient was seen this morning, she still a bit short of breath, denies any chest pain, no palpitations Vitals/I&O/Wt Last Vital Signs Temp 98.8 F 10/20/22 04:00 Pulse 89 10/20/22 14:00 Resp 22 H 10/20/22 11:41 BP 129/82 10/20/22 12:00 Pulse Ox 90 10/20/22 12:00 O2 Del Method Nasal Cannula 10/20/22 11:41 O2 Flow Rate 2 10/20/22 11:41 10/19/22 10/20/22 10/20/22 22:59 06:59 14:59 Intake Total 762.66 / 762.66 477.136 / 1239.796 300 / 300 Output Total 2975 / 2975 Balance -2212.34 / -2212.34 477.136 / -1735.204 300 / 300 Weight last 48 hrs Weight 32.5 kg Weight 32.205 kg Physical Exam Const: COMMON NORMALS: no acute distress and patient oriented x3 Resp: COMMON NORMALS: normal respiratory effort, No retractions and No use of accessory muscles AUSCULTATION: diminished lung sounds diffuse Cardio: COMMON NORMALS: regular rate, regular rhythm, S1 normal heart sound present and S2 normal heart sound present RATE: regular rate RHYTHM: regular rhythm HEART SOUNDS: S1 normal heart sound present and S2 normal heart sound present GI: COMMON NORMALS: Normal to inspection, nondistended, normoactive bowel sounds present and non-tender Extremity: COMMON NORMALS: no pedal edema Neuro: COMMON NORMALS: patient oriented x3 Psych: COMMON NORMALS: mental status grossly normal Urinary Catheter Management: Martins: Cath Placed During This Visit: yes Reason for Continuing Indwelling Catheter: Accurate Measurement of Urinary Output in Critically Ill Patients Urinary Catheter Date of Insertion: 10/19/22 Urinary Catheter Time of Insertion: 17:31 Data 10/20/22 02:03 10/20/22 02:03 Micro: Microbiology 10/19/22 22:28 Blood Culture - Preliminary Blood SPECIMEN COLLECTED 10/19/22 17:27 Blood Culture - Preliminary Blood SPECIMEN COLLECTED A&P Assessment and plan (1) Acute hyperkalemia: (2) Chronic kidney disease with 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 due to type 2 diabetes mellitus: (3) Depression: (4) Shortness of breath: (5) Physical deconditioning: (6) Muscle wasting: (7) Protein calorie malnutrition: (8) End stage renal 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: (9) NSTEMI (non-ST elevated myocardial infarction): (10) Congestive heart failure: Qualifiers: Heart failure chronicity: acute on chronic Heart failure type: unspecified Qualified Code(s): I50.9 - Heart failure, unspecified (11) ESRD on dialysis: (12) Acute and chronic respiratory failure: (13) COPD with acute exacerbation: (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: (15) Transaminitis: (16) Metabolic acidosis: (17) Healthcare-associated pneumonia: (18) Anxiety: (19) Hypothyroidism: Qualifiers: Hypothyroidism type: acquired Qualified Code(s): E03.9 - Hypothyroidism, unspecified Plan Acute hypoxic hypercarbic respiratory failure -Likely multifactorial -Concerns for healthcare associate pneumonia, CT shows patchy hazy infiltrate left upper lobe -From COPD exacerbation -From fluid overload, diastolic CHF exacerbation -Plan -Monitor in ICU -Monitor respiratory status closely -Ipratropium -Budesonide -Solu-Medrol 40 every 8 hours -Add vancomycin, Zosyn -Dialysis as needed Healthcare associate pneumonia as above Acute hyperkalemia -Resolved - Metabolic acidosis -Likely secondary to acute respiratory failure, missed dialysis COPD exacerbation -As above -CHF exacerbation -As above Type II NSTEMI -Likely supply demand ischemia from acute respiratory failure as above -However cannot rule out a cardiac etiology -Serial EKGs, serial troponins, telemetry monitoring -[facility] echo 09/2022 ?1-Normal left ventricular size, systolic function and wall ?thickness, with no regional wall motion abnormalities.? Left ?ventricular ejection fraction is estimated at 60 %. Grade I/IV ?diastolic dysfunction (abnormal relaxation filling pattern), ?normal to mildly elevated filling pressures. ?2-Structurally normal mitral valve without significant stenosis ?or prolapse.? Moderate mitral regurgitation. ?3-Moderate aortic valve calcification. No aortic valve stenosis. ?.? Trace aortic regurgitation.? ?4-There is no pericardial effusion. ?5-Right atrial pressure is around 5 mm of mercury. End-stage renal disease, on dialysis -Nephrology consulted soft tissue mass inseparable from small portion of the gallbladder wall -CA 19 -Given transaminitis, will order right upper quadrant ultrasound Protein calorie malnutrition, protein shakes Physical deconditioning Anorexia, malnourishment Goals of care, patient wants to be a full code agreeable to elective interval to patient if required Lovenox for DVT prophylax Protonix for GI prophylaxis Hypothyroidism, elevated TSH, low T3, T4, -Increase levothyroxine to 75 mcg -10 mg Cytomel today -Monitor TSH, free T3, free T4 Attestations Medical Necessity Statement*: Patient requires high position for acute hypoxic respiratory failure, type II NSTEMI, pneumonia, hypothyroidism Diagnoses Acute hyperkalemia E87.5 Chronic kidney disease with 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 due to type 2 diabetes mellitus E11.22; N18.6; Z99.2 Depression F32.A Shortness of breath R06.02 Physical deconditioning R53.81 Muscle wasting M62.50 Protein calorie malnutrition E46 End stage renal 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 N18.6; Z99.2 NSTEMI (non-ST elevated myocardial infarction) I21.4 Congestive heart failure I50.9 Heart failure chronicity: acute on chronic Heart failure type: unspecified Acute and chronic respiratory failure J96.20 COPD with acute exacerbation J44.1 Gallbladder anomaly Q44.1 Transaminitis R74.01 Metabolic acidosis E87.20 Healthcare-associated pneumonia J18.9 Anxiety F41.9 Hypothyroidism E03.9 Hypothyroidism type: acquired
[2022-10-20] MEDS: enoxaparin 30 mg/0.3 mL Syringe SUBCUT (15:35)
[2022-10-20] MEDS: pantoprazole 40 mg SDV IVP (15:35)
[2022-10-20] MEDS: ropinirole 1 mg Tablet PO (20:19)
[2022-10-20] MEDS: dexmedetomidine 400 MCG in sodium chloride 0.9% (100 ml) 100 ML IV (20:44)
[2022-10-21] VITALS (42 sets, daily range): BP systolic 115–198; BP diastolic 64–110; PULSE 64–87; RESP 12–24; TEMP 36.6–36.8; O2SAT 84–100
[2022-10-21 03:10] LABS: Basophils % 0.2 %; Hematocrit 37.9 % (37.0-47.0); Hemoglobin 11.2 g/dL (11.5-15.3); Lymphocytes % 16.7 %; Mean Corpuscular HGB Conc 29.6 g/dL (30.0-36.0); Mean Corpuscular Hemoglobin 31.3 pg (28.0-34.0); Mean Corpuscular Volume 105.9 fl (81-99); Mean Platelet Volume 9.1 fL (7.4-10.4); Monocytes # 0.3 10^3/uL (0.2-0.9); Monocytes % 4.6 %; Neutrophils # 4.53 10^3/uL (1.8-7.7); Neutrophils % 77.3 %; Nucleated Red Blood Cells # 0.2 /100WBC; Nucleated Red Blood Cells % 4.1 %; Platelet Count 178 10^3/cmm (130-400); Red Blood Count 3.58 10^6/uL (4.1-5.3); Red Cell Distribution Width 17.9 % (12.1-15.1); White Blood Count 5.9 10^3/uL (4.0-10.0)
[2022-10-21 03:42] LABS: Procalcitonin 1.27 ng/mL (0-0.5); T3 Free 1.2 PG/ML (2.0-4.4); Thyroid Stimulating Hormone 10.94 uIU/mL (0.27-4.20)
[2022-10-21 03:54] LABS: Blood Urea Nitrogen 23 mg/dL (8-23); C Reactive Protein 10.9 mg/L (0.0-4.9); Calcium 8.8 mg/dL (8.5-10.5); Carbon Dioxide 24 mmol/L (22-29); Chloride 97 mmol/L (98-107); Glomerular Filtration Rate 19.3 mL/min (90-130); Glucose 142 mg/dL (65-115); Magnesium 2.2 mg/dL (1.7-2.3); Osmolality Calculated 292 mOsm/kg (285-295); Phosphorus 3.9 mg/dL (2.5-4.5); Sodium 138 mmol/L (136-145)
[2022-10-21 04:06] LABS: NT Pro B Type Natriuretic Pept > 70000 pg/mL (0-125)
[2022-10-21] MEDS: atorvastatin 40 mg Tablet PO (06:27)
[2022-10-21] MEDS: levothyroxine 75 mcg Tablet PO (06:27)
[2022-10-21] MEDS: morphine 4 mg/mL SDV 1 mL 1 MG IVP ×5 (06:31→23:27)
[2022-10-21] MEDS: citalopram 20 mg Tablet 40 MG PO (08:22)
[2022-10-21] MEDS: metoprolol succinate ER (24 HR) 50 mg Tablet PO ×2 (08:22→20:14)
[2022-10-21] MEDS: montelukast sodium 10 mg Tablet PO (08:22)
[2022-10-21] MEDS: predniSONE 5 mg Tablet PO (08:22)
[2022-10-21] MEDS: isosorbide mononitrate ER 60 mg Tablet PO (08:22)
[2022-10-21] MEDS: aspirin 81 mg EC Tablet PO (08:22)
[2022-10-21] MEDS: sevelamer 800 mg Tablet 400 MG PO ×3 (08:22→20:11)
[2022-10-21] MEDS: losartan 50 mg Tablet 100 MG PO (08:23)
[2022-10-21] MEDS: BuSPIRONE 10 mg Tablet 15 MG PO ×2 (08:23→18:20)
[2022-10-21] MEDS: piperacillin-tazobactam 3.375 GM in sodium chloride 0.9% (plus) 50 ML IV ×2 (08:23→20:50)
[2022-10-21] MEDS: amlodipine 5 mg Tablet PO (08:23)
[2022-10-21] MEDS: liothyronine 5 mcg Tablet 10 MCG PO (08:23)
[2022-10-21] MEDS: ipratropium-albuterol 3 mL Neb INHALATION ×4 (09:09→19:51)
[2022-10-21] MEDS: budesonide 0.5 mg/2 mL Neb INHALATION ×2 (09:10→19:51)
--- NOTE | 2022-10-21 10:50 | P.PN_ITS ---
Subjective Subjective: doing better Medications: Reviewed: Yes Vitals/I&O/Wt Last Vital Signs Temp 97.8 F 10/21/22 04:00 Pulse 75 10/21/22 08:30 Resp 15 10/21/22 10:36 BP 159/93 10/21/22 08:30 Pulse Ox 98 10/21/22 10:36 O2 Del Method Nasal Cannula 10/21/22 08:30 O2 Flow Rate 2 10/21/22 08:30 FiO2 30 10/20/22 20:09 10/20/22 10/21/22 10/21/22 22:59 06:59 14:59 Intake Total 832.361 / 1132.361 190.004 / 1322.365 290.25 / 290.25 Output Total 3300 / 3300 0 / 3300 Balance -2467.639 / -2167.639 190.004 / -1977.635 290.25 / 290.25 Weight last 48 hrs Weight 30.4 kg Weight 32.5 kg Physical Exam Narrative: Awake alert no acute distress, no pedal edema Urinary Catheter Management: Martins: Cath Placed During This Visit: yes Reason for Continuing Indwelling Catheter: Accurate Measurement of Urinary Outpu t in Critically Ill Patients Urinary Catheter Date of Insertion: 10/19/22 Urinary Catheter Time of Insertion: 17:31 Data 10/21/22 02:18 10/21/22 02:18 Micro: Microbiology 10/19/22 22:28 Blood Culture - Preliminary Blood NEGATIVE TO DATE 10/19/22 17:27 Blood Culture - Preliminary Blood NEGATIVE TO DATE A&P Assessment and plan (1) ESRD on dialysis: (2) End stage renal 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: 1. ESRD : Pt missed HD . Status post HD Tuesday and Tuesday. Next HD on Tuesday 2. Hyperkalemia : s/p HD , improved 3. Acute on chronic Respiratory failure :multifactorial , Hypercapneic, hypoxic , Volume overload and COPD -improved Plan as above- HD and abx. d/c per medicine Attestations Medical Necessity Statement*: Per medicine team Coding Level of Care Code Acute Code for Chg Fwd Diagnoses ESRD on dialysis N18.6; Z99.2
--- NOTE | 2022-10-21 14:55 | PM.PN ---
Subjective Subjective: patient was seen this morning,she is still having complaints of shortness fo breath, no fever, no chills,has a cough, she tells, me that there are plans on her gallbladder surgery in a few weeks Vitals/I&O/Wt Last Vital Signs Temp 97.8 F 10/21/22 04:00 Pulse 77 10/21/22 13:00 Resp 16 10/21/22 14:19 BP 143/81 10/21/22 13:00 Pulse Ox 100 10/21/22 14:19 O2 Del Method Nasal Cannula 10/21/22 13:00 O2 Flow Rate 3 10/21/22 13:00 FiO2 30 10/20/22 20:09 10/20/22 10/21/22 10/21/22 22:59 06:59 14:59 Intake Total 832.361 / 1132.361 190.004 / 1322.365 473.588 / 473.588 Output Total 3300 / 3300 0 / 3300 Balance -2467.639 / -2167.639 190.004 / -1977.635 473.588 / 473.588 Weight last 48 hrs Weight 30.4 kg Weight 32.5 kg Physical Exam Const: COMMON NORMALS: no acute distress and patient oriented x3 Resp: COMMON NORMALS: normal respiratory effort, No retractions and No use of accessory muscles AUSCULTATION: diminished lung sounds diffuse Cardio: COMMON NORMALS: regular rate, regular rhythm, S1 normal heart sound present and S2 normal heart sound present RATE: regular rate RHYTHM: regular rhythm HEART SOUNDS: S1 normal heart sound present and S2 normal heart sound present GI: COMMON NORMALS: Normal to inspection, nondistended, normoactive bowel sounds present and non-tender Extremity: COMMON NORMALS: no pedal edema Neuro: COMMON NORMALS: patient oriented x3 Psych: COMMON NORMALS: mental status grossly normal Urinary Catheter Management: Martins: Cath Placed During This Visit: yes Reason for Continuing Indwelling Catheter: Accurate Measurement of Urinary Output in Critically Ill Patients Urinary Catheter Date of Insertion: 10/19/22 Urinary Catheter Time of Insertion: 17:31 Data 10/21/22 02:18 10/21/22 02:18 Micro: Microbiology 10/19/22 22:28 Blood Culture - Preliminary Blood NEGATIVE TO DATE 10/19/22 17:27 Blood Culture - Preliminary Blood NEGATIVE TO DATE A&P Assessment and plan (1) Acute hyperkalemia: (2) Chronic kidney disease with 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 due to type 2 diabetes mellitus: (3) Depression: (4) Shortness of breath: (5) Physical deconditioning: (6) Muscle wasting: (7) Protein calorie malnutrition: (8) End stage renal 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: (9) NSTEMI (non-ST elevated myocardial infarction): (10) Congestive heart failure: Qualifiers: Heart failure chronicity: acute on chronic Heart failure type: unspecified Qualified Code(s): I50.9 - Heart failure, unspecified (11) ESRD on dialysis: (12) Acute and chronic respiratory failure: (13) COPD with acute exacerbation: (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: (15) Transaminitis: (16) Metabolic acidosis: (17) Healthcare-associated pneumonia: (18) Anxiety: (19) Hypothyroidism: Qualifiers: Hypothyroidism type: acquired Qualified Code(s): E03.9 - Hypothyroidism, unspecified Plan Acute hypoxic hypercarbic respiratory failure -Likely multifactorial -Concerns for healthcare associate pneumonia, CT shows patchy hazy infiltrate left upper lobe -From COPD exacerbation -From fluid overload, diastolic CHF exacerbation -Plan -Move to medsur floor -Monitor respiratory status closely -Ipratropium -Budesonide -Solu-Medrol 40 every 8 hours -Add vancomycin, Zosyn -Dialysis as needed Healthcare associate pneumonia as above Acute hyperkalemia -Resolved Metabolic acidosis -Likely secondary to acute respiratory failure, missed dialysis COPD exacerbation -As above -CHF exacerbation -As above Type II NSTEMI -Likely supply demand ischemia from acute respiratory failure as above -However cannot rule out a cardiac etiology -Serial EKGs, serial troponins, telemetry monitoring -[facility] echo 09/2022 ?1-Normal left ventricular size, systolic function and wall ?thickness, with no regional wall motion abnormalities.? Left ?ventricular ejection fraction is estimated at 60 %. Grade I/IV ?diastolic dysfunction (abnormal relaxation filling pattern), ?normal to mildly elevated filling pressures. ?2-Structurally normal mitral valve without significant stenosis ?or prolapse.? Moderate mitral regurgitation. ?3-Moderate aortic valve calcification. No aortic valve stenosis. ?.? Trace aortic regurgitation.? ?4-There is no pericardial effusion. ?5-Right atrial pressure is around 5 mm of mercury. End-stage renal disease, on dialysis -Nephrology consulted soft tissue mass inseparable from small portion of the gallbladder wall -Given transaminitis -us shows -1. Abnormal gallbladder. Nonshadowing soft tissue density inseparable from a small portion of the gallbladder measuring 2.5 x 1.7 x 0.8 cm. Differential includes polyp, tumefactive sludge and neoplasm. MR may be able to differentiate between these possibilities.? 2. Moderate atrophy RIGHT kidney and severe atrophy LEFT kidney. 3. RIGHT pleural effusion. Protein calorie malnutrition, protein shakes Physical deconditioning Anorexia, malnourishment Goals of care, patient wants to be a full code agreeable to elective interval to patient if required Lovenox for DVT prophylax Protonix for GI prophylaxis Hypothyroidism, elevated TSH, low T3, T4, -Increase levothyroxine to 75 mcg -10 mg Cytomel today -Monitor TSH, free T3, free T4 Attestations Medical Necessity Statement*: patient needs hospitalization for fluid overload,pneumonia, Diagnoses Acute hyperkalemia E87.5 Chronic kidney disease with 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 due to type 2 diabetes mellitus E11.22; N18.6; Z99.2 Depression F32.A Shortness of breath R06.02 Physical deconditioning R53.81 Muscle wasting M62.50 Protein calorie malnutrition E46 End stage renal 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 N18.6; Z99.2 NSTEMI (non-ST elevated myocardial infarction) I21.4 Congestive heart failure I50.9 Heart failure chronicity: acute on chronic Heart failure type: unspecified Acute and chronic respiratory failure J96.20 COPD with acute exacerbation J44.1 Gallbladder anomaly Q44.1 Transaminitis R74.01 Metabolic acidosis E87.20 Healthcare-associated pneumonia J18.9 Anxiety F41.9 Hypothyroidism E03.9 Hypothyroidism type: acquired
[2022-10-21] MEDS: pantoprazole 40 mg SDV IVP (16:25)
[2022-10-21] MEDS: enoxaparin 30 mg/0.3 mL Syringe SUBCUT (16:25)
--- NOTE | 2022-10-21 17:09 | PC.NURSE ---
Report called to BRIANNA Means. Patient and belongings taken to room 270-1 via bed and transferred by slide board and 4 staff. No further questions.
[2022-10-21] MEDS: ropinirole 1 mg Tablet PO (20:11)
[2022-10-21] MEDS: LORazepam 2 mg/mL INJ 1 mL 0.5 MG IVP (23:28)
[2022-10-22] VITALS (16 sets, daily range): BP systolic 111–186; BP diastolic 74–98; PULSE 56–86; RESP 15–20; TEMP 36.4–36.9; O2SAT 85–99
[2022-10-22] MEDS: hyDRALAzine 20 mg/mL INJ 1 mL 10 MG IVP (06:02)
[2022-10-22] MEDS: levothyroxine 75 mcg Tablet PO (06:08)
[2022-10-22] MEDS: atorvastatin 40 mg Tablet PO (06:08)
[2022-10-22 06:37] LABS: Basophils % 0.1 %; Hematocrit 39.4 % (37.0-47.0); Lymphocytes # 1.1 10^3/uL (0.8-4.8); Lymphocytes % 11.9 %; Mean Corpuscular HGB Conc 30.5 g/dL (30.0-36.0); Mean Corpuscular Hemoglobin 31.7 pg (28.0-34.0); Mean Corpuscular Volume 104.2 fl (81-99); Mean Platelet Volume 8.9 fL (7.4-10.4); Monocytes # 0.3 10^3/uL (0.2-0.9); Monocytes % 3.4 %; Neutrophils # 7.73 10^3/uL (1.8-7.7); Neutrophils % 82.9 %; Nucleated Red Blood Cells # 0.3 /100WBC; Nucleated Red Blood Cells % 3.2 %; Platelet Count 169 10^3/cmm (130-400); Red Blood Count 3.78 10^6/uL (4.1-5.3); Red Cell Distribution Width 17.7 % (12.1-15.1); White Blood Count 9.3 10^3/uL (4.0-10.0)
[2022-10-22 06:41] LABS: C Reactive Protein 7.5 mg/L (0.0-4.9); Magnesium 2.6 mg/dL (1.7-2.3)
[2022-10-22 07:07] LABS: Free T4 Free Thyroxine 0.58 ng/dL (0.82-1.77); Procalcitonin 1.28 ng/mL (0-0.5); Thyroid Stimulating Hormone 7.48 uIU/mL (0.27-4.20)
[2022-10-22 07:20] LABS: Anion Gap 31.1 (5-19); Blood Urea Nitrogen 57 mg/dL (8-23); Calcium 8.9 mg/dL (8.5-10.5); Carbon Dioxide 18 mmol/L (22-29); Chloride 93 mmol/L (98-107); Glomerular Filtration Rate 9.6 mL/min (90-130); Glucose 118 mg/dL (65-115); Osmolality Calculated 303 mOsm/kg (285-295); Potassium 4.1 mmol/L (3.5-5.1); Sodium 138 mmol/L (136-145)
[2022-10-22 07:41] LABS: NT Pro B Type Natriuretic Pept > 70000 pg/mL (0-125)
[2022-10-22] MEDS: ipratropium-albuterol 3 mL Neb INHALATION ×3 (08:01→20:06)
[2022-10-22] MEDS: budesonide 0.5 mg/2 mL Neb INHALATION ×2 (08:01→20:06)
[2022-10-22] MEDS: citalopram 20 mg Tablet 40 MG PO (08:18)
[2022-10-22] MEDS: montelukast sodium 10 mg Tablet PO (08:18)
[2022-10-22] MEDS: losartan 50 mg Tablet 100 MG PO (08:18)
[2022-10-22] MEDS: metoprolol succinate ER (24 HR) 50 mg Tablet PO ×2 (08:18→21:22)
[2022-10-22] MEDS: predniSONE 5 mg Tablet PO (08:19)
[2022-10-22] MEDS: sevelamer 800 mg Tablet 400 MG PO ×3 (08:19→21:22)
[2022-10-22] MEDS: aspirin 81 mg EC Tablet PO (08:19)
[2022-10-22] MEDS: amlodipine 5 mg Tablet PO (08:19)
[2022-10-22] MEDS: isosorbide mononitrate ER 60 mg Tablet PO (08:19)
[2022-10-22] MEDS: BuSPIRONE 10 mg Tablet 15 MG PO ×2 (08:20→18:11)
[2022-10-22] MEDS: piperacillin-tazobactam 3.375 GM in sodium chloride 0.9% (plus) 50 ML IV ×2 (08:22→21:22)
[2022-10-22] MEDS: liothyronine 5 mcg Tablet 10 MCG PO (10:48)
--- NOTE | 2022-10-22 11:06 | PC.SOCIAL ---
IMM update IMM updated with patient. Verbalized an understanding. Copy Pg 2 provided. Initialled, dated, timed, and placed in chart.
[2022-10-22] MEDS: morphine 4 mg/mL SDV 1 mL 1 MG IVP ×2 (11:26→22:50)
[2022-10-22] MEDS: LORazepam 2 mg/mL INJ 1 mL 0.5 MG IVP (11:27)
--- NOTE | 2022-10-22 13:18 | PM.PN ---
Subjective Subjective: no new complaints Medications: Reviewed: Yes Vitals/I&O/Wt Last Vital Signs Temp 98 F 10/22/22 08:00 Pulse 83 10/22/22 08:00 Resp 18 10/22/22 11:26 BP 167/84 10/22/22 08:18 Pulse Ox 97 10/22/22 11:26 O2 Del Method Nasal Cannula 10/22/22 08:00 O2 Flow Rate 2 10/22/22 08:00 FiO2 30 10/20/22 20:09 10/21/22 10/22/22 10/22/22 22:59 06:59 14:59 Intake Total 491.022 / 964.610 350 / 1314.610 Balance 491.022 / 964.610 350 / 1314.610 Weight last 48 hrs Weight 30.4 kg Physical Exam Narrative: Awake alert no acute distress, no pedal edema Urinary Catheter Management: Martins: Cath Placed During This Visit: yes Reason for Continuing Indwelling Catheter: Accurate Measurement of Urinary Output in Critically Ill Patients Urinary Catheter Date of Insertion: 10/19/22 Urinary Catheter Time of Insertion: 17:31 Data 10/22/22 05:51 10/22/22 05:51 A&P Assessment and plan (1) ESRD on dialysis: (2) End stage renal 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: 1. ESRD : Pt missed HD . Status post HD Tuesday and Tuesday. Next HD today 2. Hyperkalemia : s/p HD , improved 3. Acute on chronic Respiratory failure :multifactorial , Hypercapneic, hypoxic , Volume overload and COPD -improved Plan as above- HD and abx. d/c per medicine Attestations Medical Necessity Statement*: Per medicine team Coding Level of Care Code Acute Code for Chg Fwd Diagnoses ESRD on dialysis N18.6; Z99.2
[2022-10-22] MEDS: heparin, porcine 1,000 unit/mL INJ 10 mL HE (14:15)
[2022-10-22] MEDS: ondansetron 2 mg/ML SDV 2 mL 4 MG IVP (14:16)
--- NOTE | 2022-10-22 14:33 | PM.PN ---
Subjective Subjective: Patient was seen this morning, she tells me she is feeling a bit better, still has shortness of breath, still has poor appetite Vitals/I&O/Wt Last Vital Signs Temp 98 F 10/22/22 08:00 Pulse 83 10/22/22 08:00 Resp 18 10/22/22 11:26 BP 167/84 10/22/22 08:18 Pulse Ox 97 10/22/22 11:26 O2 Del Method Nasal Cannula 10/22/22 08:00 O2 Flow Rate 2 10/22/22 08:00 FiO2 30 10/20/22 20:09 10/21/22 10/22/22 10/22/22 22:59 06:59 14:59 Intake Total 491.022 / 964.610 350 / 1314.610 50 / 50 Balance 491.022 / 964.610 350 / 1314.610 50 / 50 Weight last 48 hrs Weight 30.4 kg Physical Exam Const: COMMON NORMALS: no acute distress and patient oriented x3 Resp: COMMON NORMALS: normal respiratory effort, No retractions and No use of accessory muscles AUSCULTATION: wheezes and diminished lung sounds bilateral Cardio: COMMON NORMALS: regular rate, regular rhythm, S1 normal heart sound present and S2 normal heart sound present RATE: regular rate RHYTHM: regular rhythm HEART SOUNDS: S1 normal heart sound present and S2 normal heart sound present GI: COMMON NORMALS: Normal to inspection, nondistended, normoactive bowel sounds present and non-tender Extremity: COMMON NORMALS: no pedal edema Neuro: COMMON NORMALS: patient oriented x3 Psych: COMMON NORMALS: mental status grossly normal Urinary Catheter Management: Martins: Cath Placed During This Visit: yes Reason for Continuing Indwelling Catheter: Accurate Measurement of Urinary Output in Critically Ill Patients Urinary Catheter Date of Insertion: 10/19/22 Urinary Catheter Time of Insertion: 17:31 Data 10/22/22 05:51 10/22/22 05:51 A&P Assessment and plan (1) Acute hyperkalemia: (2) Chronic kidney disease with 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 due to type 2 diabetes mellitus: (3) Depression: (4) Shortness of breath: (5) Physical deconditioning: (6) Muscle wasting: (7) Protein calorie malnutrition: (8) End stage renal 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: (9) NSTEMI (non-ST elevated myocardial infarction): (10) Congestive heart failure: Qualifiers: Heart failure chronicity: acute on chronic Heart failure type: unspecified Qualified Code(s): I50.9 - Heart failure, unspecified (11) ESRD on dialysis: (12) Acute and chronic respiratory failure: (13) COPD with acute exacerbation: (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: (15) Transaminitis: (16) Metabolic acidosis: (17) Healthcare-associated pneumonia: (18) Anxiety: (19) Hypothyroidism: Qualifiers: Hypothyroidism type: acquired Qualified Code(s): E03.9 - Hypothyroidism, unspecified Plan Acute hypoxic hypercarbic respiratory failure -Likely multifactorial -Concerns for healthcare associate pneumonia, CT shows patchy hazy infiltrate left upper lobe -From COPD exacerbation -From fluid overload, diastolic CHF exacerbation -Plan -Move to medsur floor -Monitor respiratory status closely -Ipratropium -Budesonide -Solu-Medrol 40 every 8 hours -Continue vancomycin, Zosyn -Dialysis as needed Healthcare associate pneumonia as above Acute hyperkalemia -Resolved Metabolic acidosis -Likely secondary to acute respiratory failure, missed dialysis COPD exacerbation -As above -CHF exacerbation -As above Type II NSTEMI -Likely supply demand ischemia from acute respiratory failure as above -However cannot rule out a cardiac etiology -Serial EKGs, serial troponins, telemetry monitoring -[facility] echo 09/2022 ?1-Normal left ventricular size, systolic function and wall ?thickness, with no regional wall motion abnormalities.? Left ?ventricular ejection fraction is estimated at 60 %. Grade I/IV ?diastolic dysfunction (abnormal relaxation filling pattern), ?normal to mildly elevated filling pressures. ?2-Structurally normal mitral valve without significant stenosis ?or prolapse.? Moderate mitral regurgitation. ?3-Moderate aortic valve calcification. No aortic valve stenosis. ?.? Trace aortic regurgitation.? ?4-There is no pericardial effusion. ?5-Right atrial pressure is around 5 mm of mercury. End-stage renal disease, on dialysis -Nephrology consulted soft tissue mass inseparable from small portion of the gallbladder wall -Given transaminitis -us shows -1. Abnormal gallbladder. Nonshadowing soft tissue density inseparable from a small portion of the gallbladder measuring 2.5 x 1.7 x 0.8 cm. Differential includes polyp, tumefactive sludge and neoplasm. MR may be able to differentiate between these possibilities.? 2. Moderate atrophy RIGHT kidney and severe atrophy LEFT kidney. 3. RIGHT pleural effusion. Protein calorie malnutrition, protein shakes Physical deconditioning Anorexia, malnourishment Goals of care, patient wants to be a full code agreeable to elective interval to patient if required Lovenox for DVT prophylax Protonix for GI prophylaxis Hypothyroidism, elevated TSH, low T3, T4, -Increase levothyroxine to 75 mcg -10 mg Cytomel today -Monitor TSH, free T3, free T4 Plan for today continue antibiotic therapy, continue steroid therapy, Attestations Medical Necessity Statement*: Patient requires hospitalization for COPD, pneumonia Diagnoses Acute hyperkalemia E87.5 Chronic kidney disease with 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 due to type 2 diabetes mellitus E11.22; N18.6; Z99.2 Depression F32.A Shortness of breath R06.02 Physical deconditioning R53.81 Muscle wasting M62.50 Protein calorie malnutrition E46 End stage renal 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 N18.6; Z99.2 NSTEMI (non-ST elevated myocardial infarction) I21.4 Congestive heart failure I50.9 Heart failure chronicity: acute on chronic Heart failure type: unspecified Acute and chronic respiratory failure J96.20 COPD with acute exacerbation J44.1 Gallbladder anomaly Q44.1 Transaminitis R74.01 Metabolic acidosis E87.20 Healthcare-associated pneumonia J18.9 Anxiety F41.9 Hypothyroidism E03.9 Hypothyroidism type: acquired
[2022-10-22] MEDS: pantoprazole 40 mg SDV IVP (16:10)
[2022-10-22] MEDS: enoxaparin 30 mg/0.3 mL Syringe SUBCUT (16:11)
[2022-10-22] MEDS: ropinirole 1 mg Tablet PO (21:22)
--- NOTE | 2022-10-22 22:04 | PC.HD ---
Symptomatic hypotension paused UF. NS 100ml and albumin 25% 50ml given and BP responded well. However, resuming UF at reduced rate caused pressure to drop again and had to be reduced further. As a result, fluid removal goal not reached. Dr Ingram ntfd of above.
[2022-10-23] VITALS (17 sets, daily range): BP systolic 107–180; BP diastolic 75–97; PULSE 67–86; RESP 16–20; TEMP 36.7–36.9; O2SAT 94–98
[2022-10-23 03:28] LABS: Basophils % 0.2 %; Hematocrit 43.9 % (37.0-47.0); Hemoglobin 12.4 g/dL (11.5-15.3); Lymphocytes # 0.8 10^3/uL (0.8-4.8); Lymphocytes % 6.8 %; Mean Corpuscular HGB Conc 28.2 g/dL (30.0-36.0); Mean Corpuscular Hemoglobin 31.2 pg (28.0-34.0); Mean Corpuscular Volume 110.3 fl (81-99); Mean Platelet Volume 10.1 fL (7.4-10.4); Monocytes # 0.2 10^3/uL (0.2-0.9); Monocytes % 1.3 %; Neutrophils # 10.27 10^3/uL (1.8-7.7); Neutrophils % 90.5 %; Nucleated Red Blood Cells # 0.2 /100WBC; Nucleated Red Blood Cells % 1.7 %; Platelet Count 88 10^3/cmm (130-400); Red Blood Count 3.98 10^6/uL (4.1-5.3); Red Cell Distribution Width 18.2 % (12.1-15.1); White Blood Count 11.4 10^3/uL (4.0-10.0)
[2022-10-23] MEDS: morphine 4 mg/mL SDV 1 mL 1 MG IVP ×3 (03:55→19:58)
[2022-10-23] MEDS: atorvastatin 40 mg Tablet PO (05:41)
[2022-10-23] MEDS: levothyroxine 75 mcg Tablet PO (05:41)
[2022-10-23 06:52] LABS: Adenovirus Not Detected (NOT DETECT); Chlamydia Pneumoniae Not Detected (NOT DETECT); Coronavirus 229E,HKU1,NL63,OC4 Not Detected (NOT DETECT); Human Metapneumovirus Not Detected (NOT DETECT); Human Rhinovirus/Enterovirus Not Detected (NOT DETECT); Influenza A Not Detected (NOT DETECT); Influenza A H1 Not Detected (NOT DETECT); Influenza A H1-2009 Not Detected (NOT DETECT); Influenza A H3 Not Detected (NOT DETECT); Influenza B Not Detected (NOT DETECT); Mycoplasma Pneumoniae Not Detected (NOT DETECT); Parainfluenza Virus Type 1 Not Detected (NOT DETECT); Parainfluenza Virus Type 2 Not Detected (NOT DETECT); Parainfluenza Virus Type 3 Not Detected (NOT DETECT); Parainfluenza Virus Type 4 Not Detected (NOT DETECT); Respiratory Syncytial Virus A Not Detected (NOT DETECT); Respiratory Syncytial Virus B Not Detected (NOT DETECT); SARS-COV-2 Not Detected (NOT DETECT)
[2022-10-23 07:12] LABS: Anion Gap 21.3 (5-19); Blood Urea Nitrogen 40 mg/dL (8-23); C Reactive Protein 4.6 mg/L (0.0-4.9); Calcium 8.7 mg/dL (8.5-10.5); Carbon Dioxide 25 mmol/L (22-29); Chloride 94 mmol/L (98-107); Glomerular Filtration Rate 12.3 mL/min (90-130); Glucose 104 mg/dL (65-115); Magnesium 2.2 mg/dL (1.7-2.3); Osmolality Calculated 292 mOsm/kg (285-295); Phosphorus 4.8 mg/dL (2.5-4.5); Potassium 4.3 mmol/L (3.5-5.1); Sodium 136 mmol/L (136-145)
[2022-10-23 07:43] LABS: NT Pro B Type Natriuretic Pept 51031 pg/mL (0-125); T3 Free 1.1 PG/ML (2.0-4.4)
[2022-10-23 07:44] LABS: Procalcitonin 0.89 ng/mL (0-0.5); Thyroid Stimulating Hormone 6.24 uIU/mL (0.27-4.20)
[2022-10-23] MEDS: budesonide 0.5 mg/2 mL Neb INHALATION (07:59)
[2022-10-23] MEDS: ipratropium-albuterol 3 mL Neb INHALATION ×2 (07:59→11:12)
[2022-10-23] MEDS: losartan 50 mg Tablet 100 MG PO (08:44)
[2022-10-23] MEDS: aspirin 81 mg EC Tablet PO (08:44)
[2022-10-23] MEDS: piperacillin-tazobactam 3.375 GM in sodium chloride 0.9% (plus) 50 ML IV ×2 (08:44→19:59)
[2022-10-23] MEDS: isosorbide mononitrate ER 60 mg Tablet PO (08:44)
[2022-10-23] MEDS: metoprolol succinate ER (24 HR) 50 mg Tablet PO ×2 (08:44→19:59)
[2022-10-23] MEDS: predniSONE 5 mg Tablet PO (08:45)
[2022-10-23] MEDS: BuSPIRONE 10 mg Tablet 15 MG PO ×2 (08:45→18:20)
[2022-10-23] MEDS: montelukast sodium 10 mg Tablet PO (08:45)
[2022-10-23] MEDS: sevelamer 800 mg Tablet 400 MG PO ×3 (08:45→19:59)
[2022-10-23] MEDS: citalopram 20 mg Tablet 40 MG PO (08:45)
[2022-10-23] MEDS: amlodipine 5 mg Tablet PO (08:45)
[2022-10-23] MEDS: liothyronine 5 mcg Tablet 10 MCG PO (09:37)
--- NOTE | 2022-10-23 11:24 | PM.PN ---
Subjective Subjective: no new complaints Medications: Reviewed: Yes Vitals/I&O/Wt Last Vital Signs Temp 98.3 F 10/23/22 08:00 Pulse 74 10/23/22 11:18 Resp 16 10/23/22 11:13 BP 148/83 10/23/22 08:44 Pulse Ox 98 10/23/22 11:13 O2 Del Method Nasal Cannula 10/23/22 11:13 O2 Flow Rate 2 10/23/22 11:13 FiO2 30 10/20/22 20:09 10/22/22 10/23/22 10/23/22 22:59 06:59 14:59 Intake Total 650 / 700 50 / 750 Output Total 2015 Balance -1366 / -1316 40 / -1276 Weight last 48 hrs Weight 31.2 kg Physical Exam Narrative: Awake alert no acute distress, no pedal edema Urinary Catheter Management: Martins: Cath Placed During This Visit: yes Reason for Continuing Indwelling Catheter: Other Urinary Catheter Date of Insertion: 10/19/22 Urinary Catheter Time of Insertion: 17:31 Data 10/23/22 02:40 10/23/22 06:02 A&P Assessment and plan (1) ESRD on dialysis: (2) End stage renal 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: 1. ESRD : Pt missed HD . Status post HD x 3 days . Next HD today due to hyperkalemia 2. Hyperkalemia :HD today 3. Acute on chronic Respiratory failure :multifactorial , Hypercapneic, hypoxic , Volume overload and COPD -improved Plan d/c per medicine Attestations Medical Necessity Statement*: per medicine Coding Level of Care Code Acute Code for Chg Fwd Diagnoses ESRD on dialysis N18.6; Z99.2
--- NOTE | 2022-10-23 12:18 | P.PN_ITS ---
Subjective Subjective: Patient was seen this morning, she still feeling wheezy, but feels better this morning her appetite is improving Vitals/I&O/Wt Last Vital Signs Temp 98.3 F 10/23/22 08:00 Pulse 74 10/23/22 11:18 Resp 16 10/23/22 11:13 BP 148/83 10/23/22 08:44 Pulse Ox 98 10/23/22 11:13 O2 Del Method Nasal Cannula 10/23/22 11:13 O2 Flow Rate 2 10/23/22 11:13 FiO2 30 10/20/22 20:09 10/22/22 10/23/22 10/23/22 22:59 06:59 14:59 Intake Total 650 / 700 50 / 750 Output Total 2015 Balance -1366 / -1316 40 / -1276 Weight last 48 hrs Weight 31.2 kg Physical Exam Const: COMMON NORMALS: no acute distress and patient oriented x3 Resp: COMMON NORMALS: normal respiratory effort, No retractions and No use of accessory muscles AUSCULTATION: wheezes Cardio: COMMON NORMALS: regular rate, regular rhythm, S1 normal heart sound present and S2 normal heart sound present RATE: regular rate RHYTHM: regular rhythm HEART SOUNDS: S1 normal heart sound present and S2 normal heart sound present GI: COMMON NORMALS: Normal to inspection, nondistended, normoactive bowel sounds present and non-tender Extremity: COMMON NORMALS: no pedal edema Neuro: COMMON NORMALS: patient oriented x3 Psych: COMMON NORMALS: mental status grossly normal Urinary Catheter Management: Martins: Cath Placed During This Visit: yes Reason for Continuing Indwelling Catheter: Other Urinary Catheter Date of Insertion: 10/19/22 Urinary Catheter Time of Insertion: 17:31 Data 10/23/22 02:40 10/23/22 06:02 A&P Assessment and plan (1) Acute hyperkalemia: (2) Chronic kidney disease with 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 due to type 2 diabetes mellitus: (3) Depression: (4) Shortness of breath: (5) Physical deconditioning: (6) Muscle wasting: (7) Protein calorie malnutrition: (8) End stage renal 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: (9) NSTEMI (non-ST elevated myocardial infarction): (10) Congestive heart failure: Qualifiers: Heart failure chronicity: acute on chronic Heart failure type: unspecified Qualified Code(s): I50.9 - Heart failure, unspecified (11) ESRD on dialysis: (12) Acute and chronic respiratory failure: (13) COPD with acute exacerbation: (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: (15) Transaminitis: (16) Metabolic acidosis: (17) Healthcare-associated pneumonia: (18) Anxiety: (19) Hypothyroidism: Qualifiers: Hypothyroidism type: acquired Qualified Code(s): E03.9 - Hypothyroidism, unspecified Plan Acute hypoxic hypercarbic respiratory failure -Likely multifactorial -Concerns for healthcare associate pneumonia, CT shows patchy hazy infiltrate left upper lobe -From COPD exacerbation -From fluid overload, diastolic CHF exacerbation -Plan -Move to medr floor -Monitor respiratory status closely -Ipratropium -Budesonide -Transition to prednisone 40 mg once daily -Continue Zosyn, stop vancomycin -Dialysis as needed Healthcare associate pneumonia as above Acute hyperkalemia -Resolved Metabolic acidosis -Likely secondary to acute respiratory failure, missed dialysis COPD exacerbation -As above -CHF exacerbation -As above Type II NSTEMI -Likely supply demand ischemia from acute respiratory failure as above -However cannot rule out a cardiac etiology -Serial EKGs, serial troponins, telemetry monitoring -[facility] echo 09/2022 ?1-Normal left ventricular size, systolic function and wall ?thickness, with no regional wall motion abnormalities.? Left ?ventricular ejection fraction is estimated at 60 %. Grade I/IV ?diastolic dysfunction (abnormal relaxation filling pattern), ?normal to mildly elevated filling pressures. ?2-Structurally normal mitral valve without significant stenosis ?or prolapse.? Moderate mitral regurgitation. ?3-Moderate aortic valve calcification. No aortic valve stenosis. ?.? Trace aortic regurgitation.? ?4-There is no pericardial effusion. ?5-Right atrial pressure is around 5 mm of mercury. -No complaints of chest pain -We will monitor End-stage renal disease, on dialysis -Nephrology consulted soft tissue mass inseparable from small portion of the gallbladder wall -Given transaminitis -us shows -1. Abnormal gallbladder. Nonshadowing soft tissue density inseparable from a small portion of the gallbladder measuring 2.5 x 1.7 x 0.8 cm. Differential includes polyp, tumefactive sludge and neoplasm. MR may be able to differentiate between these possibilities.? 2. Moderate atrophy RIGHT kidney and severe atrophy LEFT kidney. 3. RIGHT pleural effusion -There are plans on surgery later on in October With Dr. Petit Protein calorie malnutrition, protein shakes Physical deconditioning Anorexia, malnourishment Goals of care, patient wants to be a full code agreeable to elective interval to patient if required Lovenox for DVT prophylax Protonix for GI prophylaxis Hypothyroidism, elevated TSH, low T3, T4, -Increase levothyroxine to 75 mcg -10 mg Cytomel today -Monitor TSH, free T3, free T4 Plan for today stop vancomycin, transition to prednisone, plan on discharge 24 hours Attestations Medical Necessity Statement*: Requires hospitalization for acute respiratory failure Diagnoses Acute hyperkalemia E87.5 Chronic kidney disease with 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 due to type 2 diabetes mellitus E11.22; N18.6; Z99.2 Depression F32.A Shortness of breath R06.02 Physical deconditioning R53.81 Muscle wasting M62.50 Protein calorie malnutrition E46 End stage renal 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 N18.6; Z99.2 NSTEMI (non-ST elevated myocardial infarction) I21.4 Congestive heart failure I50.9 Heart failure chronicity: acute on chronic Heart failure type: unspecified Acute and chronic respiratory failure J96.20 COPD with acute exacerbation J44.1 Gallbladder anomaly Q44.1 Transaminitis R74.01 Metabolic acidosis E87.20 Healthcare-associated pneumonia J18.9 Anxiety F41.9 Hypothyroidism E03.9 Hypothyroidism type: acquired
[2022-10-23] MEDS: LORazepam 2 mg/mL INJ 1 mL 0.5 MG IVP ×2 (13:44→19:58)
[2022-10-23] MEDS: heparin, porcine 1,000 unit/mL INJ 10 mL 10000 UNIT INTRACATH (14:15)
[2022-10-23] MEDS: albumin 12.5 GM/50 ML VIAL IV ×2 (14:30→16:30)
[2022-10-23] MEDS: ondansetron 2 mg/ML SDV 2 mL 4 MG IVP ×2 (16:30→20:59)
[2022-10-23] MEDS: enoxaparin 30 mg/0.3 mL Syringe SUBCUT (18:20)
[2022-10-23] MEDS: pantoprazole 40 mg SDV IVP (18:22)
[2022-10-23] MEDS: ropinirole 1 mg Tablet PO (19:59)
[2022-10-24] VITALS (18 sets, daily range): BP systolic 131–148; BP diastolic 62–96; PULSE 71–82; RESP 16–20; TEMP 36.7–37.1; O2SAT 95–99
[2022-10-24 03:35] LABS: Basophils % 0.1 %; Hematocrit 42.8 % (37.0-47.0); Hemoglobin 12.5 g/dL (11.5-15.3); Lymphocytes # 2.9 10^3/uL (0.8-4.8); Lymphocytes % 18.8 %; Mean Corpuscular HGB Conc 29.2 g/dL (30.0-36.0); Mean Corpuscular Hemoglobin 30.8 pg (28.0-34.0); Mean Corpuscular Volume 105.4 fl (81-99); Mean Platelet Volume 9.3 fL (7.4-10.4); Monocytes # 0.8 10^3/uL (0.2-0.9); Monocytes % 5.1 %; Neutrophils # 11.51 10^3/uL (1.8-7.7); Neutrophils % 75.2 %; Nucleated Red Blood Cells # 0.1 /100WBC; Nucleated Red Blood Cells % 0.5 %; Platelet Count 123 10^3/cmm (130-400); Red Blood Count 4.06 10^6/uL (4.1-5.3); Red Cell Distribution Width 18.5 % (12.1-15.1); White Blood Count 15.3 10^3/uL (4.0-10.0)
[2022-10-24] MEDS: atorvastatin 40 mg Tablet PO (03:59)
[2022-10-24] MEDS: levothyroxine 75 mcg Tablet PO (03:59)
[2022-10-24 04:04] LABS: Alanine Aminotransferase 26 U/L (0-33); Albumin Level 4.5 g/dL (3.5-5.2); Alkaline Phosphatase 88 U/L (35-105); Anion Gap 19.8 (5-19); Aspartate Amino Transferase 16 U/L (0-32); Blood Urea Nitrogen 37 mg/dL (8-23); Calcium 9.2 mg/dL (8.5-10.5); Carbon Dioxide 23 mmol/L (22-29); Chloride 100 mmol/L (98-107); Globulin 2.3 g/dL (1.3-4.6); Glomerular Filtration Rate 15.7 mL/min (90-130); Glucose 92 mg/dL (65-115); Magnesium 2.2 mg/dL (1.7-2.3); Osmolality Calculated 296 mOsm/kg (285-295); Phosphorus 2.6 mg/dL (2.5-4.5); Potassium 3.8 mmol/L (3.5-5.1); Sodium 139 mmol/L (136-145); Total Bilirubin 0.4 mg/dL (0.15-1.2); Total Protein 6.8 g/dL (6.6-8.7)
[2022-10-24 04:54] LABS: NT Pro B Type Natriuretic Pept 35615 pg/mL (0-125)
[2022-10-24] MEDS: ipratropium-albuterol 3 mL Neb INHALATION ×4 (08:07→19:37)
[2022-10-24] MEDS: budesonide 0.5 mg/2 mL Neb INHALATION ×2 (08:07→19:37)
[2022-10-24] MEDS: piperacillin-tazobactam 3.375 GM in sodium chloride 0.9% (plus) 50 ML IV ×2 (08:35→20:02)
[2022-10-24] MEDS: aspirin 81 mg EC Tablet PO (08:36)
[2022-10-24] MEDS: isosorbide mononitrate ER 60 mg Tablet PO (08:36)
[2022-10-24] MEDS: citalopram 20 mg Tablet 40 MG PO (08:36)
[2022-10-24] MEDS: montelukast sodium 10 mg Tablet PO (08:36)
[2022-10-24] MEDS: metoprolol succinate ER (24 HR) 50 mg Tablet PO ×2 (08:37→20:02)
[2022-10-24] MEDS: predniSONE 20 mg Tablet 40 MG PO (08:37)
[2022-10-24] MEDS: losartan 50 mg Tablet 100 MG PO (08:37)
[2022-10-24] MEDS: amlodipine 5 mg Tablet PO (08:37)
[2022-10-24] MEDS: predniSONE 5 mg Tablet PO (08:38)
[2022-10-24] MEDS: sevelamer 800 mg Tablet 400 MG PO ×3 (08:38→20:02)
[2022-10-24] MEDS: morphine 4 mg/mL SDV 1 mL 1 MG IVP ×3 (10:40→21:29)
[2022-10-24] MEDS: BuSPIRONE 10 mg Tablet 15 MG PO ×2 (10:42→17:44)
[2022-10-24] MEDS: liothyronine 5 mcg Tablet 10 MCG PO (10:43)
--- NOTE | 2022-10-24 14:48 | PC.SOCIAL ---
IMM Updated Updated pt on IMM. No questions voiced. Provided pt a copy. Initialed, dated, & timed copy in chart.
--- NOTE | 2022-10-24 16:00 | PM.PN ---
Subjective Subjective: Patient was seen this morning, she tells me that she is not ready to go home today, she still feels a bit short of breath Vitals/I&O/Wt Last Vital Signs Temp 98.0 F 10/24/22 12:00 Pulse 73 10/24/22 15:13 Resp 16 10/24/22 15:08 BP 139/62 10/24/22 12:00 Pulse Ox 99 10/24/22 15:08 O2 Del Method Nasal Cannula 10/24/22 15:08 O2 Flow Rate 2 10/24/22 15:08 FiO2 30 10/20/22 20:09 10/24/22 10/24/22 10/24/22 06:59 14:59 22:59 Intake Total 290 / 1260 1010 / 1010 Balance 290 / -1456 1010 / 1010 Weight last 48 hrs Weight 30.7 kg Physical Exam Const: COMMON NORMALS: no acute distress and patient oriented x3 Resp: COMMON NORMALS: normal respiratory effort, No retractions, No use of accessory muscles and clear to auscultation bilaterally AUSCULTATION: clear to auscultation bilaterally Cardio: COMMON NORMALS: regular rate, regular rhythm, S1 normal heart sound present and S2 normal heart sound present RATE: regular rate RHYTHM: regular rhythm HEART SOUNDS: S1 normal heart sound present and S2 normal heart sound present GI: COMMON NORMALS: Normal to inspection, nondistended, normoactive bowel sounds present and non-tender Extremity: COMMON NORMALS: no pedal edema Neuro: COMMON NORMALS: patient oriented x3 Psych: COMMON NORMALS: mental status grossly normal Urinary Catheter Management: Martins: Cath Placed During This Visit: yes, but has since been removed by the nurse Reason for Continuing Indwelling Catheter: Decision to DC Catheter Urinary Catheter Date of Insertion: 10/19/22 Urinary Catheter Time of Insertion: 17:31 Date Urinary Catheter Removed: 10/23/22 Time Urinary Catheter Discontinued: 18:00 Data 10/24/22 03:05 10/24/22 03:05 A&P Assessment and plan (1) Acute hyperkalemia: (2) Chronic kidney disease with 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 due to type 2 diabetes mellitus: (3) Depression: (4) Shortness of breath: (5) Physical deconditioning: (6) Muscle wasting: (7) Protein calorie malnutrition: (8) End stage renal 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: (9) NSTEMI (non-ST elevated myocardial infarction): (10) Congestive heart failure: Qualifiers: Heart failure chronicity: acute on chronic Heart failure type: unspecified Qualified Code(s): I50.9 - Heart failure, unspecified (11) ESRD on dialysis: (12) Acute and chronic respiratory failure: (13) COPD with acute exacerbation: (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: (15) Transaminitis: (16) Metabolic acidosis: (17) Healthcare-associated pneumonia: (18) Anxiety: (19) Hypothyroidism: Qualifiers: Hypothyroidism type: acquired Qualified Code(s): E03.9 - Hypothyroidism, unspecified Plan Acute hypoxic hypercarbic respiratory failure -Likely multifactorial -Concerns for healthcare associate pneumonia, CT shows patchy hazy infiltrate left upper lobe -From COPD exacerbation -From fluid overload, diastolic CHF exacerbation -Plan -On MedSurg -Monitor respiratory status closely -Ipratropium -Budesonide -On prednisone 40 mg once daily -Continue Zosyn, -Dialysis Healthcare associate pneumonia as above Acute hyperkalemia -Resolved Metabolic acidosis -Likely secondary to acute respiratory failure, missed dialysis COPD exacerbation -As above -CHF exacerbation -As above Type II NSTEMI -Likely supply demand ischemia from acute respiratory failure as above -However cannot rule out a cardiac etiology -Serial EKGs, serial troponins, telemetry monitoring -[facility] echo 09/2022 ?1-Normal left ventricular size, systolic function and wall ?thickness, with no regional wall motion abnormalities.? Left ?ventricular ejection fraction is estimated at 60 %. Grade I/IV ?diastolic dysfunction (abnormal relaxation filling pattern), ?normal to mildly elevated filling pressures. ?2-Structurally normal mitral valve without significant stenosis ?or prolapse.? Moderate mitral regurgitation. ?3-Moderate aortic valve calcification. No aortic valve stenosis. ?.? Trace aortic regurgitation.? ?4-There is no pericardial effusion. ?5-Right atrial pressure is around 5 mm of mercury. -No complaints of chest pain -We will monitor End-stage renal disease, on dialysis -Nephrology consulted soft tissue mass inseparable from small portion of the gallbladder wall -Given transaminitis -us shows -1. Abnormal gallbladder. Nonshadowing soft tissue density inseparable from a small portion of the gallbladder measuring 2.5 x 1.7 x 0.8 cm. Differential includes polyp, tumefactive sludge and neoplasm. MR may be able to differentiate between these possibilities.? 2. Moderate atrophy RIGHT kidney and severe atrophy LEFT kidney. 3. RIGHT pleural effusion -There are plans on surgery later on in October With Dr. Petit Protein calorie malnutrition, protein shakes Physical deconditioning Anorexia, malnourishment Goals of care, patient wants to be a full code agreeable to elective interval to patient if required Lovenox for DVT prophylax Protonix for GI prophylaxis Hypothyroidism, elevated TSH, low T3, T4, -Increase levothyroxine to 75 mcg -10 mg Cytomel today -Monitor TSH, free T3, free T4 Plan for today continue p.o. prednisone, 1 more days of Zosyn, PT OT, discharge tomorrow 24 hours Attestations Medical Necessity Statement*: Patient requires hospital patient for healthcare associate pneumonia Diagnoses Acute hyperkalemia E87.5 Chronic kidney disease with 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 due to type 2 diabetes mellitus E11.22; N18.6; Z99.2 Depression F32.A Shortness of breath R06.02 Physical deconditioning R53.81 Muscle wasting M62.50 Protein calorie malnutrition E46 End stage renal 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 N18.6; Z99.2 NSTEMI (non-ST elevated myocardial infarction) I21.4 Congestive heart failure I50.9 Heart failure chronicity: acute on chronic Heart failure type: unspecified Acute and chronic respiratory failure J96.20 COPD with acute exacerbation J44.1 Gallbladder anomaly Q44.1 Transaminitis R74.01 Metabolic acidosis E87.20 Healthcare-associated pneumonia J18.9 Anxiety F41.9 Hypothyroidism E03.9 Hypothyroidism type: acquired
[2022-10-24] MEDS: pantoprazole 40 mg SDV IVP (17:43)
[2022-10-24] MEDS: enoxaparin 30 mg/0.3 mL Syringe SUBCUT (17:44)
[2022-10-24] MEDS: ropinirole 1 mg Tablet PO (20:02)
--- NOTE | 2022-10-24 21:12 | PM.PN ---
Subjective Subjective: no new complaints Medications: Reviewed: Yes Vitals/I&O/Wt Last Vital Signs Temp 98.3 F 10/24/22 20:00 Pulse 76 10/24/22 20:00 Resp 17 10/24/22 20:00 BP 138/80 10/24/22 20:00 Pulse Ox 95 10/24/22 20:00 O2 Del Method Nasal Cannula 10/24/22 19:37 O2 Flow Rate 2 10/24/22 19:37 FiO2 30 10/20/22 20:09 10/24/22 10/24/22 10/24/22 06:59 14:59 22:59 Intake Total 290 / 1260 1010 / 1010 480 / 1490 Balance 290 / -1456 1010 / 1010 480 / 1490 Weight last 48 hrs Weight 30.7 kg Physical Exam Narrative: Awake alert no acute distress, no pedal edema Urinary Catheter Management: Martins: Cath Placed During This Visit: yes, but has since been removed by the nurse Reason for Continuing Indwelling Catheter: Decision to DC Catheter Urinary Catheter Date of Insertion: 10/19/22 Urinary Catheter Time of Insertion: 17:31 Date Urinary Catheter Removed: 10/23/22 Time Urinary Catheter Discontinued: 18:00 Data 10/24/22 03:05 10/24/22 03:05 Micro: Microbiology 10/19/22 17:27 Blood Culture - Final Blood NO GROWTH AFTER 5 DAYS A&P Assessment and plan (1) ESRD on dialysis: (2) End stage renal 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: 1. ESRD : Pt missed HD . HD per TTS schedule 2. Hyperkalemia :HD today 3. Acute on chronic Respiratory failure :multifactorial , Hypercapneic, hypoxic , Volume overload and COPD -improved Plan d/c per medicine Attestations Medical Necessity Statement*: per medicine Coding Level of Care Code Acute Code for Chg Fwd Diagnoses ESRD on dialysis N18.6; Z99.2
--- NOTE | 2022-10-24 21:23 | PC.NURSE ---
Patient obtained skin tear to right lower extremity in shower. Patient states that she didn't bump anything, but that is happened while washing her skin. Pressure dressing applied.
[2022-10-24] MEDS: LORazepam 2 mg/mL INJ 1 mL 0.5 MG IVP (21:29)
[2022-10-25] VITALS (20 sets, daily range): BP systolic 96–166; BP diastolic 60–98; PULSE 76–85; RESP 15–20; TEMP 35.9–36.9; O2SAT 90–100
[2022-10-25] MEDS: morphine 4 mg/mL SDV 1 mL 1 MG IVP ×5 (00:54→21:17)
[2022-10-25] MEDS: atorvastatin 40 mg Tablet PO (04:16)
[2022-10-25] MEDS: levothyroxine 75 mcg Tablet PO (04:16)
[2022-10-25 05:19] LABS: Basophils % 0.1 %; Hematocrit 44.7 % (37.0-47.0); Hemoglobin 12.9 g/dL (11.5-15.3); Lymphocytes # 2.2 10^3/uL (0.8-4.8); Mean Corpuscular HGB Conc 28.9 g/dL (30.0-36.0); Mean Corpuscular Hemoglobin 30.6 pg (28.0-34.0); Mean Corpuscular Volume 106.2 fl (81-99); Mean Platelet Volume 10.1 fL (7.4-10.4); Monocytes # 0.4 10^3/uL (0.2-0.9); Monocytes % 2.4 %; Neutrophils # 11.98 10^3/uL (1.8-7.7); Neutrophils % 81.5 %; Nucleated Red Blood Cells % 0.2 %; Platelet Count 116 10^3/cmm (130-400); Red Blood Count 4.21 10^6/uL (4.1-5.3); Red Cell Distribution Width 17.7 % (12.1-15.1); White Blood Count 14.7 10^3/uL (4.0-10.0)
[2022-10-25 05:41] LABS: Alanine Aminotransferase 24 U/L (0-33); Albumin Level 4.6 g/dL (3.5-5.2); Alkaline Phosphatase 91 U/L (35-105); Anion Gap 21.4 (5-19); Aspartate Amino Transferase 16 U/L (0-32); Blood Urea Nitrogen 72 mg/dL (8-23); Carbon Dioxide 24 mmol/L (22-29); Chloride 96 mmol/L (98-107); Globulin 2.1 g/dL (1.3-4.6); Glomerular Filtration Rate 8.9 mL/min (90-130); Glucose 113 mg/dL (65-115); Osmolality Calculated 306 mOsm/kg (285-295); Potassium 4.4 mmol/L (3.5-5.1); Sodium 137 mmol/L (136-145); Total Bilirubin 0.3 mg/dL (0.15-1.2); Total Protein 6.7 g/dL (6.6-8.7)
--- NOTE | 2022-10-25 05:47 | PC.NURSE ---
Unable to collect UA on patient due to no urine output.
[2022-10-25] MEDS: sevelamer 800 mg Tablet 400 MG PO ×3 (08:15→21:15)
[2022-10-25] MEDS: BuSPIRONE 10 mg Tablet 15 MG PO ×2 (08:16→17:31)
[2022-10-25] MEDS: predniSONE 20 mg Tablet 40 MG PO (08:16)
[2022-10-25] MEDS: piperacillin-tazobactam 3.375 GM in sodium chloride 0.9% (plus) 50 ML IV (08:16)
[2022-10-25] MEDS: losartan 50 mg Tablet 100 MG PO (08:16)
[2022-10-25] MEDS: predniSONE 5 mg Tablet PO (08:17)
[2022-10-25] MEDS: amlodipine 5 mg Tablet PO (08:17)
[2022-10-25] MEDS: montelukast sodium 10 mg Tablet PO (08:27)
[2022-10-25] MEDS: metoprolol succinate ER (24 HR) 50 mg Tablet PO (08:27)
[2022-10-25] MEDS: citalopram 20 mg Tablet 40 MG PO (08:27)
[2022-10-25] MEDS: aspirin 81 mg EC Tablet PO (08:28)
[2022-10-25] MEDS: isosorbide mononitrate ER 60 mg Tablet PO (08:28)
[2022-10-25] MEDS: liothyronine 5 mcg Tablet 10 MCG PO (08:28)
[2022-10-25] MEDS: ipratropium-albuterol 3 mL Neb INHALATION ×3 (08:42→20:48)
[2022-10-25] MEDS: budesonide 0.5 mg/2 mL Neb INHALATION ×2 (08:42→20:48)
[2022-10-25] MEDS: LORazepam 2 mg/mL INJ 1 mL 0.5 MG IVP ×2 (10:16→21:16)
--- NOTE | 2022-10-25 10:20 | PM.PN ---
Subjective Subjective: seen and examined. weak, sob, lethargic. has abd pain. does not want Cholecystectomy surgery. not eating much Medications: Reviewed: Yes Medication Review Details: Current Medications Acetaminophen (Acetaminophen 325 Mg Tablet) 650 mg PO Q6H PRN PRN Reason: Mild/Mod Pain Or Temp >/= 101 Albuterol/Ipratropium (Ipratropium-Albuterol 3 Ml Neb) 3 ml INHALATION QID.RESPIRATORY [facility] Last Admin: 10/25/22 08:42 Dose: 3 ml Amlodipine Besylate (Amlodipine 5 Mg Tablet) 5 mg PO DAILY [facility] Last Admin: 10/25/22 08:17 Dose: 5 mg Aspirin (Aspirin 81 Mg Ec Tablet) 81 mg PO DAILY@0830 [facility] Last Admin: 10/25/22 08:28 Dose: 81 mg Atorvastatin Calcium (Atorvastatin 40 Mg Tablet) 40 mg PO QAM [facility] Last Admin: 10/25/22 04:16 Dose: 40 mg Budesonide (Budesonide 0.5 Mg/2 Ml Neb) 0.5 mg INHALATION BID.RESPIRATORY [facility] Last Admin: 10/25/22 08:42 Dose: 0.5 mg Buspirone HCl (Buspirone 10 Mg Tablet) 15 mg PO BID [facility] Last Admin: 10/25/22 08:16 Dose: 15 mg Citalopram Hydrobromide (Citalopram 20 Mg Tablet) 40 mg PO DAILY@0830 [facility] Last Admin: 10/25/22 08:27 Dose: 40 mg Enoxaparin Sodium (Enoxaparin 30 Mg/0.3 Ml Syringe) 30 mg SUBCUT Q24H [facility] Last Admin: 10/24/22 17:44 Dose: 30 mg Heparin Sodium (Porcine) (Heparin, Porcine 1,000 Unit/Ml Inj 10 Ml) 0 unit HE PRN PRN PRN Reason: HEMODIALYSIS USE ONLY Last Admin: 10/22/22 14:15 Dose: 10,000 unit Piperacillin Sod/Tazobactam (Sod 3.375 gm/ Sodium Chloride) 50 mls @ 12.5 mls/hr IV Q12H [facility] Last Admin: 10/25/22 08:16 Dose: 12.5 mls/hr Albumin Human (Albumin) 12.5 gm in 50 mls @ 60 mls/hr IV PRN PRN PRN Reason: Hypotension and/or symptomatic Last Infusion: 10/23/22 18:18 Dose: Infused Sodium Chloride (Sodium Chloride 0.9%) 1,000 mls @ 0 mls/hr IV .Q0M PRN PRN Reason: hypotension or symptomatic Albumin Human (Albumin) 12.5 gm in 50 mls @ 60 mls/hr IV PRN PRN PRN Reason: Hypotension and/or symptomatic Sodium Chloride (Sodium Chloride 0.9%) 1,000 mls @ 0 mls/hr IV .Q0M PRN PRN Reason: hypotension or symptomatic Isosorbide Mononitrate (Isosorbide Mononitrate Er 60 Mg Tablet) 60 mg PO DAILY@0830 [facility] Last Admin: 10/25/22 08:28 Dose: 60 mg Levothyroxine Sodium (Levothyroxine 75 Mcg Tablet) 75 mcg PO QAM [facility] Last Admin: 10/25/22 04:16 Dose: 75 mcg Liothyronine Sodium (Liothyronine 5 Mcg Tablet) 10 mcg PO DAILY [facility] Last Admin: 10/25/22 08:28 Dose: 10 mcg Lorazepam (Lorazepam 2 Mg/Ml Inj 1 Ml) 0.5 mg IVP Q8H PRN PRN Reason: ANXIETY Last Admin: 10/25/22 10:16 Dose: 0.5 mg Losartan Potassium (Losartan 50 Mg Tablet) 100 mg PO DAILY [facility] Last Admin: 10/25/22 08:16 Dose: 100 mg Metoprolol Succinate (Metoprolol Succinate Er (24 Hr) 50 Mg Tablet) 50 mg PO BID@0830,2100 [facility] Last Admin: 10/25/22 08:27 Dose: 50 mg Montelukast Sodium (Montelukast Sodium 10 Mg Tablet) 10 mg PO DAILY@0830 [facility] Last Admin: 10/25/22 08:27 Dose: 10 mg Morphine Sulfate (Morphine 4 Mg/Ml Sdv 1 Ml) 1 mg IVP Q4H PRN PRN Reason: SEVERE PAIN Last Admin: 10/25/22 08:14 Dose: 1 mg Nitroglycerin (Nitroglycerin 0.4 Mg Sublingual Tablet) 0.4 mg SUBLINGUAL Q5M PRN PRN Reason: Chest Pain Non-Formulary Medication (Vit B,Y-Kp-Qlft-Selen-Vit D3-E [Renaplex-D]) 1 tab PO QPM [facility] Last Admin: 10/24/22 17:19 Dose: Not Given Ondansetron HCl (Ondansetron 2 Mg/Ml Sdv 2 Ml) 4 mg IVP Q8H PRN PRN Reason: vomiting, or N/V if npo Last Admin: 10/23/22 20:59 Dose: 4 mg Pantoprazole Sodium (Pantoprazole 40 Mg Sdv) 40 mg IVP Q24H [facility] Last Admin: 10/24/22 17:43 Dose: 40 mg Prednisone (Prednisone 5 Mg Tablet) 5 mg PO DAILY [facility] Last Admin: 10/25/22 08:17 Dose: 5 mg Prednisone (Prednisone 20 Mg Tablet) 40 mg PO DAILY [facility] Last Admin: 10/25/22 08:16 Dose: 40 mg Ropinirole HCl (Ropinirole 1 Mg Tablet) 1 mg PO BEDTIME [facility] Last Admin: 10/24/22 20:02 Dose: 1 mg Sevelamer Carbonate (Sevelamer 800 Mg Tablet) 400 mg PO TID [facility] Last Admin: 10/25/22 08:15 Dose: 400 mg Vitals/I&O/Wt Last Vital Signs Temp 98.0 F 10/25/22 08:00 Pulse 83 10/25/22 09:02 Resp 18 10/25/22 08:43 BP 166/98 10/25/22 08:16 Pulse Ox 97 10/25/22 08:43 O2 Del Method Nasal Cannula 10/25/22 08:43 O2 Flow Rate 3 10/25/22 08:43 FiO2 30 10/20/22 20:09 10/24/22 10/25/22 10/25/22 22:59 06:59 14:59 Intake Total 480 / 1490 50 / 1540 300 / 300 Balance 480 / 1490 50 / 1540 300 / 300 Weight last 48 hrs Weight 30.7 kg Physical Exam Narrative: seen and examined w/ RN - weak sob on nc 02 vs noted heent- ncat neck supple lungs ronchi/ wheezes heart reg abd soft, tender, + bs ext no edema rt IJ permacath neuro- a,a, o x 3 Urinary Catheter Management: Martins: Cath Placed During This Visit: yes, but has since been removed by the nurse Reason for Continuing Indwelling Catheter: Decision to DC Catheter Urinary Catheter Date of Insertion: 10/19/22 Urinary Catheter Time of Insertion: 17:31 Date Urinary Catheter Removed: 10/23/22 Time Urinary Catheter Discontinued: 18:00 Data 10/25/22 04:51 10/25/22 04:51 Micro: Microbiology 10/19/22 22:28 Blood Culture - Final Blood NO GROWTH AFTER 5 DAYS 10/19/22 17:27 Blood Culture - Final Blood NO GROWTH AFTER 5 DAYS A&P Assessment and plan (1) ESRD on dialysis: 67 yr old female ESRD, copd, HFpEF, type II NSTEMI, moderate MR 1. ESRD - HD now 3 hrs 2. normal hgb 3. SOB/ HFpEF/ ESRD-= [place] [address] [place] [address]- repeat bnp, d/c bp meds. remove fluids on hd. continue ARB seen and examined w/ RN= telehealth visit Plan as above Attestations Medical Necessity Statement*: esrd, copd, chf- here w/ sob, MARIN Time Spent in Patient Care: 16 - 35 minutes (>than 50% of time spent in counselling and/or direct pt care on unit). Coding Level of Care Code Acute Code for Chg Fwd Diagnoses ESRD on dialysis N18.6; Z99.2
--- NOTE | 2022-10-25 15:02 | P.PN_ITS ---
Subjective Subjective: Hospital course, labs appreciated. Today morning patient was lying comfortably in bed seen during dialysis. Dialysis could not be started as her blood pressures are on the lower side with systolics running around 85 even after albumin bolus the patient was asymptomatic. Awake and alert. States breathing is at his baseline requiring 3 L. On reviewing today morning patient's blood pressures were over 160s and she got all her antihypertensives. Dialysis could not be done today. Last 24 hours has remained hemodynamically stable otherwise. Afebrile. Vitals/I&O/Wt Last Vital Signs Temp 98.0 F 10/25/22 08:00 Pulse 83 10/25/22 09:02 Resp 20 H 10/25/22 13:26 BP 166/98 10/25/22 08:16 Pulse Ox 97 10/25/22 08:43 O2 Del Method Nasal Cannula 10/25/22 08:43 O2 Flow Rate 3 10/25/22 08:43 FiO2 30 10/20/22 20:09 10/25/22 10/25/22 10/25/22 06:59 14:59 22:59 Intake Total 50 / 1540 770 / 770 Output Total 10 / 10 Balance 50 / 1540 760 / 760 Weight last 48 hrs Weight 30.7 kg Physical Exam Narrative: General: No acute distress, AO x3, frail, chronically sick appearing, cachectic HEENT: PERRLA, pupils bilaterally equal and reactive Chest: Normal vesicular breath sounds, no added sounds, equal good air entry bilaterally CVS: S1-S2 regular, pansystolic murmur at apex radiating to anterior axillary line 2/6, no tachycardia, no gallops, no rubs Abdomen: Soft, nontender, no organomegaly, bowel sounds present Neuro: No focal deficits, no facial deformity, AO x3, power 5/5 in all limbs Skin: NARRATIVE SKIN EXAM: Patient has a superficial skin break, right lower extremity OTHER: Has peripheral wasting, muscle wasting temporal muscle wasting, muscle wasting of the legs, specifically of the thighs, over the arms, Urinary Catheter Management: Martins: Cath Placed During This Visit: yes, but has since been removed by the nurse Reason for Continuing Indwelling Catheter: Decision to DC Catheter Urinary Catheter Date of Insertion: 10/19/22 Urinary Catheter Time of Insertion: 17:31 Date Urinary Catheter Removed: 10/23/22 Time Urinary Catheter Discontinued: 18:00 Data 10/25/22 04:51 10/25/22 04:51 Micro: Microbiology 10/19/22 22:28 Blood Culture - Final Blood NO GROWTH AFTER 5 DAYS 10/19/22 17:27 Blood Culture - Final Blood NO GROWTH AFTER 5 DAYS A&P Assessment and plan (1) Acute hyperkalemia: (2) End stage renal 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: (3) Acute and chronic respiratory failure: (4) Congestive heart failure: Qualifiers: Heart failure chronicity: acute on chronic Heart failure type: unspe cified Qualified Code(s): I50.9 - Heart failure, unspecified (5) COPD with acute exacerbation: (6) Healthcare-associated pneumonia: (7) Shortness of breath: (8) Chronic kidney disease with 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 due to type 2 diabetes mellitus: (9) Gallbladder anomaly: (10) Transaminitis: (11) Depression: (12) Physical deconditioning: (13) Muscle wasting: (14) Protein calorie malnutrition: (15) NSTEMI (non-ST elevated myocardial infarction): (16) Metabolic acidosis: (17) Anxiety: (18) Hypothyroidism: Qualifiers: Hypothyroidism type: acquired Qualified Code(s): E03.9 - Hypothyroidism, unspecified Plan Acute on chronic hypoxic hypercarbic respiratory failure: Most likely in setting of congestive heart failure from hypertensive urgency in setting of moderate mitral regurgitation, diastolic heart failure, community-acquired pneumonia and COPD exacerbation. Dialysis for congestive heart failure. Further adjustment of heart failure regimen medications. Goal blood pressure less than 140/90 mmHg with mean over 65. Stop losartan given persistent hyperkalemia. Will uptitrate Imdur. Continue with current dose of metoprolol. Hold antihypertensives for now given hypotension during dialysis. Will reevaluate in evening or in a.m. If persistently hypotensive can plan to give midodrine 10 mg one-time. Appreciate CT chest results with concerning for left upper lobe pneumonia. Multiple recent hospitalization. MRSA negative. Sputum culture recently grew Pseudomonas. Continue with IV Zosyn as per creatinine clearance as per culture sensitivities. We will try to finish 7-day course. On discharge if not completed course can switch to oral levofloxacin. For COPD exacerbation: Continue with DuoNebs every 6 hour, budesonide twice daily. Continue with oral prednisone 40 mg oral daily. Oxygen supplementation keeping saturation over 90%. Wean accordingly. End-stage renal disease on hemodialysis/acute hyperkalemia/metabolic acidosis: Metabolic acidosis and hyperkalemia in setting of missed dialysis. Resolved now. Appreciate nephrology recommendations. Dialysis when possible. Hold off on losartan as above. Type II NSTEMI: Likely type II AL. Troponin cycle appreciated. Recent echocardiogram showed EF of 60% with grade 1 diastolic dysfunction, moderate mitral regurgitation. Troponins recently have been trending up. Given recurrent admissions cannot rule out underlying CAD. Once more euvolemic can plan for Lexiscan stress test. Continue with aspirin 81 mg daily, atorvastatin 40 mg daily, metoprolol at current dose. Appreciate recent A1c and lipid panel. Soft tissue mass inseparable from small portion of the gallbladder wall: Appreciate gallbladder ultrasound. Mild transaminitis. Plan for cholecystectomy later in October with Dr. Petit as an outpatient. Hypothyroidism: Elevated TSH with low T3. Levothyroxine increased to 75 mcg daily. Will need to repeat thyroid profile in 4 weeks. Protein calorie malnutrition, protein shakes Physical deconditioning Anorexia, malnourishment Goals of care, patient wants to be a full code agreeable to elective intubation if required Lovenox for DVT prophylax Protonix for GI prophylaxis Discharge plan: Plan to discharge to home with possible home health once medically stable. Most likely continued hospitalization for next 48 hours. Attestations Medical Necessity Statement*: Requires further hospitalization for management of acute on chronic hypoxic respiratory failure in setting of congestive diastolic heart failure, morbid mitral regurgitation, end-stage renal disease on hemodialysis, uncontrolled hypertension with current hypotension Coding Level of Care Code Critical Care >/= 30 minutes Critical care time (in minutes): 50 The high probability of a clinically significant, sudden or life threatening deterioration, as referenced in this documentation, required my full and direct attention, intervention and personal management. The critical care time shown is in addition to time spent performing any reported separately billable procedures and includes the following: [x] Data and vital sign review and interpretation [x ] Patient assessment, examination and intervention [x] Medication orders and management [x] Patient/Family updates as able [x] Care Coordination and Documentation. Other Coding Information Taking care of hypotension in a patient with end-stage renal disease on baseline uncontrolled hypertension, hypoxic respiratory failure Diagnoses Acute hyperkalemia E87.5 End stage renal 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 N18.6; Z99.2 Acute and chronic respiratory failure J96.20 Congestive heart failure I50.9 Heart failure chronicity: acute on chronic Heart failure type: unspecified COPD with acute exacerbation J44.1 Healthcare-associated pneumonia J18.9 Shortness of breath R06.02 Chronic kidney disease with 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 due to type 2 diabetes mellitus E11.22; N18.6; Z99.2 Gallbladder anomaly Q44.1 Transaminitis R74.01 Depression F32.A Physical deconditioning R53.81 Muscle wasting M62.50 Protein calorie malnutrition E46 NSTEMI (non-ST elevated myocardial infarction) I21.4 Metabolic acidosis E87.20 Anxiety F41.9 Hypothyroidism E03.9 Hypothyroidism type: acquired
[2022-10-25] MEDS: enoxaparin 30 mg/0.3 mL Syringe SUBCUT (15:40)
[2022-10-25] MEDS: pantoprazole 40 mg SDV IVP (15:40)
[2022-10-25] MEDS: heparin, porcine 1,000 unit/mL INJ 10 mL 1000 UNIT HE (15:48)
[2022-10-25] MEDS: albumin 12.5 GM/50 ML VIAL IV ×2 (15:49→15:50)
--- NOTE | 2022-10-25 20:08 | PC.NURSE ---
Per Dr Duran, orders given to hold metoprolol this evening.
[2022-10-25] MEDS: piperacillin-tazobactam 3.375 GM in sodium chloride 0.9% (plus) 50 ML 0.5 GM IV (21:15)
[2022-10-25] MEDS: ropinirole 1 mg Tablet PO (21:16)
[2022-10-26] VITALS (17 sets, daily range): BP systolic 102–172; BP diastolic 72–97; PULSE 72–92; RESP 15–20; TEMP 36.6–37; O2SAT 91–99
[2022-10-26] MEDS: morphine 4 mg/mL SDV 1 mL 1 MG IVP ×3 (02:34→20:09)
[2022-10-26] MEDS: LORazepam 2 mg/mL INJ 1 mL 0.5 MG IVP ×3 (02:50→20:09)
[2022-10-26 05:06] LABS: Basophils % 0.1 %; Hematocrit 38.9 % (37.0-47.0); Hemoglobin 11.3 g/dL (11.5-15.3); Lymphocytes # 1.8 10^3/uL (0.8-4.8); Lymphocytes % 12.1 %; Mean Corpuscular Hemoglobin 30.9 pg (28.0-34.0); Mean Corpuscular Volume 106.3 fl (81-99); Mean Platelet Volume 9.9 fL (7.4-10.4); Monocytes # 0.3 10^3/uL (0.2-0.9); Neutrophils # 12.33 10^3/uL (1.8-7.7); Neutrophils % 84.9 %; Nucleated Red Blood Cells % 0 %; Platelet Count 108 10^3/cmm (130-400); Red Blood Count 3.66 10^6/uL (4.1-5.3); Red Cell Distribution Width 17.7 % (12.1-15.1); White Blood Count 14.5 10^3/uL (4.0-10.0)
[2022-10-26 05:24] LABS: Calcium 8.8 mg/dL (8.5-10.5)
[2022-10-26 05:25] LABS: Alanine Aminotransferase 21 U/L (0-33); Albumin Level 4.3 g/dL (3.5-5.2); Alkaline Phosphatase 66 U/L (35-105); Anion Gap 22.6 (5-19); Aspartate Amino Transferase 14 U/L (0-32); Calcium 8.9 mg/dL (8.5-10.5); Carbon Dioxide 23 mmol/L (22-29); Chloride 97 mmol/L (98-107); Globulin 1.8 g/dL (1.3-4.6); Glucose 119 mg/dL (65-115); Magnesium 2.6 mg/dL (1.7-2.3); Osmolality Calculated 312 mOsm/kg (285-295); Phosphorus 4.9 mg/dL (2.5-4.5); Potassium 5.6 mmol/L (3.5-5.1); Sodium 137 mmol/L (136-145); Total Bilirubin 0.3 mg/dL (0.15-1.2); Total Protein 6.1 g/dL (6.6-8.7)
[2022-10-26 05:31] LABS: Parathyroid Hormone 153.1 pg/mL (15-65)
[2022-10-26 05:32] LABS: Blood Urea Nitrogen 89 mg/dL (8-23)
[2022-10-26] MEDS: levothyroxine 75 mcg Tablet PO (05:58)
[2022-10-26] MEDS: atorvastatin 40 mg Tablet PO (05:59)
[2022-10-26] MEDS: BuSPIRONE 10 mg Tablet 15 MG PO ×2 (08:30→17:35)
[2022-10-26] MEDS: liothyronine 5 mcg Tablet 10 MCG PO (08:30)
[2022-10-26] MEDS: sevelamer 800 mg Tablet 400 MG PO ×2 (08:30→20:09)
[2022-10-26] MEDS: predniSONE 20 mg Tablet 40 MG PO (08:31)
[2022-10-26] MEDS: aspirin 81 mg EC Tablet PO (08:35)
[2022-10-26] MEDS: montelukast sodium 10 mg Tablet PO (08:35)
[2022-10-26] MEDS: citalopram 20 mg Tablet 40 MG PO (08:35)
[2022-10-26] MEDS: piperacillin-tazobactam 3.375 GM in sodium chloride 0.9% (plus) 50 ML IV ×2 (08:36→20:09)
[2022-10-26] MEDS: ipratropium-albuterol 3 mL Neb INHALATION ×3 (08:37→21:08)
[2022-10-26] MEDS: budesonide 0.5 mg/2 mL Neb INHALATION ×2 (08:37→21:08)
--- NOTE | 2022-10-26 09:00 | PM.PN ---
Subjective Subjective: abd pain. did not do well with SUF yesterday. not eating. chronic sob. + weak Medications: Reviewed: Yes Medication Review Details: Current Medications Acetaminophen (Acetaminophen 325 Mg Tablet) 650 mg PO Q6H PRN PRN Reason: Mild/Mod Pain Or Temp >/= 101 Albuterol/Ipratropium (Ipratropium-Albuterol 3 Ml Neb) 3 ml INHALATION QID.RESPIRATORY [facility] Last Admin: 10/26/22 08:37 Dose: 3 ml Aspirin (Aspirin 81 Mg Ec Tablet) 81 mg PO DAILY@0830 [facility] Last Admin: 10/26/22 08:35 Dose: 81 mg Atorvastatin Calcium (Atorvastatin 40 Mg Tablet) 40 mg PO QAM [facility] Last Admin: 10/26/22 05:59 Dose: 40 mg Budesonide (Budesonide 0.5 Mg/2 Ml Neb) 0.5 mg INHALATION BID.RESPIRATORY [facility] Last Admin: 10/26/22 08:37 Dose: 0.5 mg Buspirone HCl (Buspirone 10 Mg Tablet) 15 mg PO BID [facility] Last Admin: 10/26/22 08:30 Dose: 15 mg Citalopram Hydrobromide (Citalopram 20 Mg Tablet) 40 mg PO DAILY@0830 [facility] Last Admin: 10/26/22 08:35 Dose: 40 mg Enoxaparin Sodium (Enoxaparin 30 Mg/0.3 Ml Syringe) 30 mg SUBCUT Q24H [facility] Last Admin: 10/25/22 15:40 Dose: 30 mg Heparin Sodium (Porcine) (Heparin, Porcine 1,000 Unit/Ml Inj 10 Ml) 1,000 unit HE PRN PRN PRN Reason: HEMODIALYSIS USE ONLY Last Admin: 10/25/22 15:48 Dose: 1,000 unit Piperacillin Sod/Tazobactam (Sod 3.375 gm/ Sodium Chloride) 50 mls @ 12.5 mls/hr IV Q12H [facility] Last Admin: 10/26/22 08:36 Dose: 12.5 mls/hr Albumin Human (Albumin) 12.5 gm in 50 mls @ 60 mls/hr IV PRN PRN PRN Reason: Hypotension and/or symptomatic Last Infusion: 10/25/22 16:41 Dose: Infused Sodium Chloride (Sodium Chloride 0.9%) 1,000 mls @ 0 mls/hr IV .Q0M PRN PRN Reason: hypotension or symptomatic Isosorbide Mononitrate (Isosorbide Mononitrate Er 60 Mg Tablet) 60 mg PO BID [facility] Last Admin: 10/26/22 08:31 Dose: 60 mg Levothyroxine Sodium (Levothyroxine 75 Mcg Tablet) 75 mcg PO QAM [facility] Last Admin: 10/26/22 05:58 Dose: 75 mcg Liothyronine Sodium (Liothyronine 5 Mcg Tablet) 10 mcg PO DAILY [facility] Last Admin: 10/26/22 08:30 Dose: 10 mcg Lorazepam (Lorazepam 2 Mg/Ml Inj 1 Ml) 0.5 mg IVP Q8H PRN PRN Reason: ANXIETY Last Admin: 10/25/22 21:16 Dose: 0.5 mg Metoprolol Succinate (Metoprolol Succinate Er (24 Hr) 50 Mg Tablet) 50 mg PO BID@0830,2100 [facility] Last Admin: 10/26/22 08:36 Dose: 50 mg Montelukast Sodium (Montelukast Sodium 10 Mg Tablet) 10 mg PO DAILY@0830 [facility] Last Admin: 10/26/22 08:35 Dose: 10 mg Morphine Sulfate (Morphine 4 Mg/Ml Sdv 1 Ml) 1 mg IVP Q4H PRN PRN Reason: SEVERE PAIN Last Admin: 10/26/22 08:41 Dose: 1 mg Nitroglycerin (Nitroglycerin 0.4 Mg Sublingual Tablet) 0.4 mg SUBLINGUAL Q5M PRN PRN Reason: Chest Pain Non-Formulary Medication (Vit B,F-Gi-Soam-Selen-Vit D3-E [Renaplex-D]) 1 tab PO QPM [facility] Last Admin: 10/25/22 17:31 Dose: Not Given Ondansetron HCl (Ondansetron 2 Mg/Ml Sdv 2 Ml) 4 mg IVP Q8H PRN PRN Reason: vomiting, or N/V if npo Last Admin: 10/23/22 20:59 Dose: 4 mg Pantoprazole Sodium (Pantoprazole 40 Mg Sdv) 40 mg IVP Q24H [facility] Last Admin: 10/25/22 15:40 Dose: 40 mg Prednisone (Prednisone 20 Mg Tablet) 40 mg PO DAILY [facility] Last Admin: 10/26/22 08:31 Dose: 40 mg Ropinirole HCl (Ropinirole 1 Mg Tablet) 1 mg PO BEDTIME [facility] Last Admin: 10/25/22 21:16 Dose: 1 mg Sevelamer Carbonate (Sevelamer 800 Mg Tablet) 400 mg PO TID [facility] Last Admin: 10/26/22 08:30 Dose: 400 mg Vitals/I&O/Wt Last Vital Signs Temp 97.8 F 10/26/22 08:00 Pulse 92 10/26/22 08:45 Resp 20 H 10/26/22 08:41 BP 165/97 10/26/22 08:00 Pulse Ox 99 10/26/22 08:35 O2 Del Method Nasal Cannula 10/26/22 08:35 O2 Flow Rate 2 10/26/22 08:35 FiO2 2 10/25/22 15:28 10/25/22 10/26/22 10/26/22 22:59 06:59 14:59 Intake Total 51 / 821 240 / 1061 5.675 / 5.675 Balance 51 / 811 240 / 1051 5.675 / 5.675 Physical Exam Narrative: seen and examined w/ RN - weak in bed, NARD, + nc 02 vs noted heent- ncat neck supple lungs ronchi b/l heart reg abd soft, left sided tender, + bs ext no edema rt IJ permacath neuro- a,a, o x 3 Urinary Catheter Management: Martins: Cath Placed During This Visit: yes, but has since been removed by the nurse Reason for Continuing Indwelling Catheter: Decision to DC Catheter Urinary Catheter Date of Insertion: 10/19/22 Urinary Catheter Time of Insertion: 17:31 Date Urinary Catheter Removed: 10/23/22 Time Urinary Catheter Discontinued: 18:00 Data 10/26/22 04:55 10/26/22 04:55 A&P Assessment and plan (1) ESRD on dialysis: 67 yr old female ESRD, copd, HFpEF, type II NSTEMI, moderate MR 1. ESRD - HD yesterday- terminated early as bp dropped- repeat hd now 3.5 hrs, 2k, remove 2l as tolerated 2. normal hgb 3. SOB/ HFpEF/ ESRD-= [place] [address] [place] [address]- repeat bnp, d/c bp meds. remove fluids on hd. continue ARB 4. abd pain/ chelly-GB mass- for CCY and further evaluation later in october by surgery seen and examined w/ RN= telehealth visit Plan as above Attestations Medical Necessity Statement*: esrd, per medicine Time Spent in Patient Care: 16 - 35 minutes (>than 50% of time spent in counselling and/or direct pt care on unit). Coding Level of Care Code Acute Code for Chg Fwd Diagnoses ESRD on dialysis N18.6; Z99.2
[2022-10-26] MEDS: isosorbide mononitrate ER 60 mg Tablet PO ×2 (09:38→17:35)
--- NOTE | 2022-10-26 11:02 | PC.SOCIAL ---
Imm update Imm updated with patient at bedside. Copy of page 2 provided. Patient verbalized understanding. Copy in chart initialed, dated and timed.
--- NOTE | 2022-10-26 13:58 | P.PN_ITS ---
Subjective Subjective: No acute events overnight. Patient has remained hemodynamically stable and afebrile. States she feels congested. Could not get dialysis yesterday because her blood pressures are dropping. Today morning blood pressures are a lot better after antihypertensives being withheld yesterday evening. She remains on 2 L oxygen supplementation saturating more than 95%. States she is getting frustrated and would want to just get better now. We discussed in detail that unfortunately her recurrent admissions are because of end-stage renal disease, COPD and congestive heart failure in setting of mode rate MR. We did discuss that she does have chances of CAD given elevated troponins for last 3 admissions but states in past when she tried to do Lexiscan stress test she could not breathe for which stress test had to be withheld in between. We discussed about CODE STATUS and further goals of care. Patient states she would want to remain full code and she wants to see her grandbabies grow old. Vitals/I&O/Wt Last Vital Signs Temp 97.9 F 10/26/22 12:00 Pulse 84 10/26/22 12:00 Resp 15 10/26/22 12:00 BP 147/81 10/26/22 12:00 Pulse Ox 96 10/26/22 12:00 O2 Del Method Nasal Cannula 10/26/22 12:00 O2 Flow Rate 2 10/26/22 11:16 FiO2 2 10/25/22 15:28 10/25/22 10/26/22 10/26/22 22:59 06:59 14:59 Intake Total 51 / 821 240 / 1061 175.675 / 175.675 Balance 51 / 811 240 / 1051 175.675 / 175.675 Physical Exam Narrative: General: No acute distress, AO x3, frail, chronically sick appearing, cachectic HEENT: PERRLA, pupils bilaterally equal and reactive Chest: Normal vesicular breath sounds, no added sounds, equal good air entry bilaterally CVS: S1-S2 regular, pansystolic murmur at apex radiating to anterior axillary line 2/6, no tachycardia, no gallops, no rubs Abdomen: Soft, nontender, no organomegaly, bowel sounds present Neuro: No focal deficits, no facial deformity, AO x3, power 5/5 in all limbs Skin: NARRATIVE SKIN EXAM: Patient has a superficial skin break, right lower extremity OTHER: Has peripheral wasting, muscle wasting temporal muscle wasting, muscle wasting of the legs, specifically of the thighs, over the arms, Urinary Catheter Management: Martins: Cath Placed During This Visit: yes, but has since been removed by the nurse Reason for Continuing Indwelling Catheter: Decision to DC Catheter Urinary Catheter Date of Insertion: 10/19/22 Urinary Catheter Time of Insertion: 17:31 Date Urinary Catheter Removed: 10/23/22 Time Urinary Catheter Discontinued: 18:00 Data 10/26/22 04:55 10/26/22 04:55 A&P Assessment and plan (1) Acute hyperkalemia: (2) End stage renal 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: (3) Acute and chronic respiratory failure: (4) Congestive heart failure: Qualifiers: Heart failure chronicity: acute on chronic Heart failure type: unspecif ied Qualified Code(s): I50.9 - Heart failure, unspecified (5) COPD with acute exacerbation: (6) Healthcare-associated pneumonia: (7) Shortness of breath: (8) Chronic kidney disease with 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 due to type 2 diabetes mellitus: (9) Gallbladder anomaly: (10) Transaminitis: (11) Depression: (12) Physical deconditioning: (13) Muscle wasting: (14) Protein calorie malnutrition: (15) NSTEMI (non-ST elevated myocardial infarction): (16) Metabolic acidosis: (17) Anxiety: (18) Hypothyroidism: Qualifiers: Hypothyroidism type: acquired Qualified Code(s): E03.9 - Hypothyroidism, unspecified Plan Acute on chronic hypoxic hypercarbic respiratory failure: Most likely in setting of congestive heart failure from hypertensive urgency in setting of moderate mitral regurgitation, diastolic heart failure, community-acquired pneumonia and COPD exacerbation. Dialysis for congestive heart failure. Further adjustment of heart failure regimen medications. Goal blood pressure less than 140/90 mmHg with mean over 65. Continue to monitor blood pressures. Continue with Imdur 60 mg twice daily, metoprolol 50 mg twice daily. Holding off on losartan given persistent hyperkalemia. Will uptitrate as per goals. Patient did have episode of hypotension around dialysis yesterday. We will continue to monitor. If needed can start patient on midodrine 5 mg 3 times daily as needed on the day of dialysis. Appreciate CT chest results with concerning for left upper lobe pneumonia. Multiple recent hospitalization. MRSA negative. Sputum culture recently grew Pseudomonas. Continue with IV Zosyn as per creatinine clearance as per culture sensitivities. Day 7/7 of treatment today. For COPD exacerbation: Continue with DuoNebs every 6 hour, budesonide twice daily. Continue with oral prednisone 40 mg oral daily. We will plan to stop prednisone 40 mg in 5 days and switch to home dose of 5 mg of oral prednisone. Oxygen supplementation keeping saturation over 90%. Wean accordingly. End-stage renal disease on hemodialysis/acute hyperkalemia/metabolic acidosis: Metabolic acidosis and hyperkalemia in setting of missed dialysis. Resolved now. Appreciate nephrology recommendations. As per schedule. Holding off on losartan. Type II NSTEMI: Likely type II GA though cannot rule out baseline ACS given elevated troponin for last 3 to 4 months. Troponin cycle appreciated. Recent echocardiogram showed EF of 60% with grade 1 diastolic dysfunction, moderate mitral regurgitation. Troponins recently have been trending up. Given recurrent admissions cannot rule out underlying CAD. Patient states in past she could not tolerate Lexiscan and would not want to go ahead with that again. Will discuss with outpatient emergency medical service manager regarding further plan of treatment. Continue with aspirin 81 mg daily, atorvastatin 40 mg daily, metoprolol at current dose. Appreciate recent A1c and lipid panel. Soft tissue mass inseparable from small portion of the gallbladder wall: Appreciate gallbladder ultrasound. Mild transaminitis. Plan for cholecystectomy later in October with Dr. Petit as an outpatient. Hypothyroidism: Elevated TSH with low T3. Levothyroxine increased to 75 mcg daily. Will need to repeat thyroid profile in 4 weeks. Protein calorie malnutrition, protein shakes Physical deconditioning Anorexia, malnourishment Goals of care, patient wants to be a full code agreeable to elective intubation if required Lovenox for DVT prophylax Protonix for GI prophylaxis Discharge plan: Plan to discharge to home with possible home health once medically stable. Most likely continued hospitalization for next 48 hours. Attestations Medical Necessity Statement*: Requires further hospitalization for management of acute on chronic hypoxic respiratory failure in setting of diastolic congestive heart failure, moderate MR with elevated troponins in a patient with history of end-stage renal disease on hemodialysis Diagnoses Acute hyperkalemia E87.5 End stage renal 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 N18.6; Z99.2 Acute and chronic respiratory failure J96.20 Congestive heart failure I50.9 Heart failure chronicity: acute on chronic Heart failure type: unspecified COPD with acute exacerbation J44.1 Healthcare-associated pneumonia J18.9 Shortness of breath R06.02 Chronic kidney disease with 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 due to type 2 diabetes mellitus E11.22; N18.6; Z99.2 Gallbladder anomaly Q44.1 Transaminitis R74.01 Depression F32.A Physical deconditioning R53.81 Muscle wasting M62.50 Protein calorie malnutrition E46 NSTEMI (non-ST elevated myocardial infarction) I21.4 Metabolic acidosis E87.20 Anxiety F41.9 Hypothyroidism E03.9 Hypothyroidism type: acquired
[2022-10-26] MEDS: enoxaparin 30 mg/0.3 mL Syringe SUBCUT (17:36)
[2022-10-26] MEDS: pantoprazole 40 mg SDV IVP (17:37)
--- NOTE | 2022-10-26 19:53 | PM.CONSULT ---
Providers/Reason For Consult Consulting Physician/Specialty*: CATALINA Culver MD/cardiology Reason for Consult*: Patient with recurrent CHF/non-ST elevation myocardial infarction/end-stage renal disease Requesting Physician: Dr. Smith Attending Physician: Mitch Smith MD Primary Care Provider: HERBERT Masters History of Present Illness History of Present Illness Hali James is a 67 year old female, is admitted to the hospital through the emergency room where she presented with complaints of progressive shortness of breath. She was found to have hypoxic and hypercapnic respiratory failure. She had a features of COPD exacerbation. Investigations revealed evidence of congestive heart failure and right upper lobe pneumonia. She had a recent prior hospital admission for multiple similar symptoms. She also is known to have end-stage renal disease and on hemodialysis. She has extreme generalized wasting, anorexia and chronic anemia. She had EVAR for a blood aortic aneurysm and renal artery stenting for renal artery stenosis. She apparently had multiple hospital admissions in the past for COPD exacerbation/CHF. Her baseline troponin T has been trending upwards during the recent hospital admissions with no significant delta. Her BNP was running in in the greater than 70,000 range. She has been having some pleuritic type of chest pain. No significant cardiac arrhythmias are noted on the monitor. She was treated with IV antibiotics, diuretics and hemodialysis. Her symptoms are slowly improving. She had few episodes of hypotension last night. Her antihypertensive medications were held. Her blood pressure seems to be slowly improving. Her BUN has been trending upward. Her creatinine also is slowly trending upwards. No fever or chills. Has a dry cough. Patient is also known to have obstructive sleep apnea, hypothyroidism, hypercholesterolemia. Review of Systems Narrative: CONSTITUTIONAL: No fever or chills. EYES: No blurring of vision or other visual disturbances lately. ENT: Patient has some hoarseness of voice off and on. CARDIOVASCULAR: As mentioned above. RESPIRATORY: History of COPD with intermittent exacerbations GASTROINTESTINAL: Soft tissue mass in the abdomen attached to the gallbladder, planning to have exploratory laparotomy GENITOURINARY: End-stage renal disease on hemodialysis INTEGUMENTARY: No skin rashes or history of skin cancer. NEURO: No transient ischemic attacks or amaurosis. PSYCHIATRIC: No history of psychosis or major depression. HEMATOLOGIC: Chronic anemia ENDOCRINE: No history of polyuria or polydipsia. MUSCULOSKELETAL: No recent joint pain or swelling. ALLERGY/IMMUNOLOGY: As mentioned above. Medications/Allergies Home Medications Medication Instructions Recorded Confirmed Last Taken Type fluticasone propionate 50 2 spray intranasal DAILY PRN 02/21/20 10/19/22 10/18/22 History mcg/actuation nasal Allergy Symptoms spray,suspension (Flonase Allergy Relief) epinephrine 0.3 mg/0.3 mL 0.3 mg IM Q10M PRN Allergic 10/16/20 10/19/22 Unknown History injection, auto-injector Reaction metoprolol succinate 50 mg 50 mg PO BID@0830,2100 30 days #60 04/05/22 10/19/22 10/18/22 Rx tablet,extended release 24 hr tabs montelukast 10 mg tablet 10 mg PO DAILY@0830 #30 tabs 04/05/22 10/19/22 10/18/22 Rx nitroglycerin 0.4 mg sublingual 0.4 mg sublingual Q5M PRN Chest 04/05/22 10/19/22 06/12/22 Rx tablet (Nitrostat) Pain 30 days #30 tabs omeprazole 20 mg capsule,delayed 20 mg PO DAILY@0830 30 days #30 04/05/22 10/19/22 10/18/22 Rx release caps sevelamer carbonate 0.8 gram oral 0.4 g PO TID 06/12/22 10/19/22 10/18/22 History powder packet ondansetron 8 mg disintegrating 8 mg PO Q8H PRN nausea and 06/16/22 10/19/22 Unknown Rx tablet vomiting #90 tabs budesonide 0.5 mg/2 mL suspension 0.5 mg (2 mL) inhalation BID #120 06/21/22 10/19/22 10/18/22 Rx for nebulization (Pulmicort) mL formoterol fumarate 20 mcg/2 mL 2 ml inhalation Q12H #120 mL 06/21/22 10/19/22 10/18/22 Rx solution for nebulization (Perforomist) citalopram 40 mg tablet 40 mg PO DAILY@0830 30 days #30 07/01/22 10/19/22 10/18/22 Rx tabs azithromycin 250 mg tablet 250 mg PO .COMPLEX COPD 90 days 07/06/22 10/19/22 10/18/22 Rx #45 tabs aspirin 81 mg tablet,delayed 81 mg PO DAILY@0830 30 days #30 08/18/22 10/19/22 10/18/22 Rx release tabs hydroxyzine HCl 50 mg tablet 50 mg PO QID PRN Anxiety 08/21/22 10/19/22 10/18/22 History ropinirole 1 mg tablet 1 mg PO BEDTIME 08/21/22 10/19/22 10/18/22 History polyethylene glycol 3350 17 gram 17 g PO DAILY PRN constipation #30 08/25/22 10/19/22 10/18/22 Rx oral powder packet ea vit B,C-folic ac 800 mcg-zinc 12.5 1 tab PO QPM 09/08/22 10/19/22 10/18/22 History mg-selen-D3 2,000 unit-vit E tablet (RenaPlex-D) losartan 50 mg tablet 100 mg PO DAILY 09/13/22 10/19/22 10/18/22 History atorvastatin 40 mg tablet 40 mg PO QAM 09/16/22 10/19/22 10/18/22 History isosorbide mononitrate 60 mg 60 mg PO DAILY@0830 09/16/22 10/19/22 10/18/22 History tablet,extended release 24 hr levothyroxine 50 mcg tablet 50 mcg PO QAM 09/16/22 10/19/22 10/18/22 History revefenacin 175 mcg/3 mL solution 175 mcg inhalation QAM 09/16/22 10/19/22 10/18/22 History for nebulization amlodipine 5 mg tablet 5 mg PO DAILY 30 days #30 tabs 09/23/22 10/19/22 10/18/22 Rx buspirone 15 mg tablet 15 mg PO BID #60 tabs 09/27/22 10/19/22 10/18/22 Rx hydrocodone 5 mg-acetaminophen 325 1 tab PO BID PRN pain/dyspnea 1 10/01/22 10/19/22 Unknown Rx mg tablet month #60 tabs albuterol sulfate 2.5 mg/3 mL 2.5 mg (3 mL) inhalation QID PRN 10/13/22 10/19/22 10/19/22 Rx (0.083 %) solution for nebulization Shortness Of Breath 30 days #75 mL albuterol sulfate 90 mcg/actuation 2 puff inhalation 6XD PRN 10/13/22 10/19/22 10/19/22 Rx aerosol inhaler Shortness Of Breath #6.7 grams prednisone 5 mg tablet 5 mg PO DAILY #30 tabs 10/13/22 10/19/22 10/18/22 Rx Allergies Allergy/AdvReac Type Severity Reaction Status Date / Time lisinopril Allergy Severe anaphylaxis Verified 10/19/22 09:47 Sulfa (Sulfonamide AdvReac Intermediate Itching, Verified 10/19/22 09:47 Antibiotics) burning Current Medications Generic Name Dose Route Start Last Admin Trade Name Freq PRN Reason Stop Dose Admin Albuterol/Ipratropium 3 ml 10/19/22 16:00 10/26/22 15:07 Ipratropium-Albuterol 3 Ml Neb INHALATION Not Given QID.RESPIRATORY APOLONIA Aspirin 81 mg 10/20/22 08:30 10/26/22 08:35 Aspirin 81 Mg Ec Tablet PO 81 mg DAILY@0830 APOLONIA Administration Atorvastatin Calcium 40 mg 10/20/22 06:00 10/26/22 05:59 Atorvastatin 40 Mg Tablet PO 40 mg QAM APOLONIA Administration Budesonide 0.5 mg 10/19/22 20:00 10/26/22 08:37 Budesonide 0.5 Mg/2 Ml Neb INHALATION 0.5 mg BID.RESPIRATORY APOLONIA Administration Buspirone HCl 15 mg 10/19/22 18:00 10/26/22 17:35 Buspirone 10 Mg Tablet PO 15 mg BID APOLONIA Administration Citalopram Hydrobromide 40 mg 10/20/22 08:30 10/26/22 08:35 Citalopram 20 Mg Tablet PO 40 mg DAILY@0830 APOLONIA Administration Enoxaparin Sodium 30 mg 10/19/22 15:57 10/26/22 17:36 Enoxaparin 30 Mg/0.3 Ml Syringe SUBCUT 30 mg Q24H APOLONIA Administration Heparin Sodium (Porcine) 1,000 unit 10/25/22 10:30 10/25/22 15:48 Heparin, Porcine 1,000 Unit/Ml Inj 10 Ml HE 1,000 unit PRN PRN Administration HEMODIALYSIS USE ONLY Piperacillin Sod/Tazobactam 50 mls @ 12.5 mls/hr 10/20/22 09:00 10/26/22 12:44 Sod 3.375 gm/ Sodium Chloride IV Infused Q12H APOLONIA Infusion Albumin Human 12.5 gm in 50 mls @ 60 mls/hr 10/23/22 07:57 10/25/22 16:41 Albumin IV Infused PRN PRN Infusion Hypotension and/or symptomatic Isosorbide Mononitrate 60 mg 10/25/22 18:00 10/26/22 17:35 Isosorbide Mononitrate Er 60 Mg Tablet PO 60 mg BID APOLONIA Administration Levothyroxine Sodium 75 mcg 10/21/22 06:00 10/26/22 05:58 Levothyroxine 75 Mcg Tablet PO 75 mcg QAM APOLONIA Administration Liothyronine Sodium 10 mcg 10/20/22 13:45 10/26/22 08:30 Liothyronine 5 Mcg Tablet PO 10 mcg DAILY APOLONIA Administration Lorazepam 0.5 mg 10/23/22 19:52 10/26/22 12:30 Lorazepam 2 Mg/Ml Inj 1 Ml IVP 0.5 mg Q8H PRN Administration ANXIETY Metoprolol Succinate 50 mg 10/19/22 21:00 10/26/22 09:19 Metoprolol Succinate Er (24 Hr) 50 Mg Tablet PO Not Given BID@0830,2100 [facility] Montelukast Sodium 10 mg 10/20/22 08:30 10/26/22 08:35 Montelukast Sodium 10 Mg Tablet PO 10 mg DAILY@0830 [facility] Administration Morphine Sulfate 1 mg 10/19/22 15:57 10/26/22 08:41 Morphine 4 Mg/Ml Sdv 1 Ml IVP 1 mg Q4H PRN Administration SEVERE PAIN Non-Formulary Medication 1 tab 10/19/22 18:00 10/26/22 17:36 Vit B,X-Ug-Aiaf-Selen-Vit D3-E [Renaplex-D] PO Not Given QPM APOLONIA Ondansetron HCl 4 mg 10/19/22 15:57 10/23/22 20:59 Ondansetron 2 Mg/Ml Sdv 2 Ml IVP 4 mg Q8H PRN Administration vomiting, or N/V if npo Pantoprazole Sodium 40 mg 10/19/22 15:57 10/26/22 17:37 Pantoprazole 40 Mg Sdv IVP 40 mg Q24H APOLONIA Administration Prednisone 40 mg 10/24/22 09:00 10/26/22 08:31 Prednisone 20 Mg Tablet PO 40 mg DAILY APOLONIA Administration Ropinirole HCl 1 mg 10/19/22 21:00 10/25/22 21:16 Ropinirole 1 Mg Tablet PO 1 mg BEDTIME APOLONIA Administration Sevelamer Carbonate 400 mg 10/19/22 21:30 10/26/22 15:26 Sevelamer 800 Mg Tablet PO Not Given TID APOLONIA PFSH Acute PFSH: Medical History AAA (abdominal aortic aneurysm) 4.1 x 4.4 x 5.7 cm 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 Anemia Anxiety attack Atypical chest pain Brain aneurysm Chest pain Chest pain Chronic kidney disease CKD stage III, solitary kidney Chronic migraine without aura, intractable, with status migrainosus Congestive heart failure COPD (chronic obstructive pulmonary disease) COPD with acute exacerbation Depression Elevated troponin End-stage renal disease needing dialysis Endoleak post (EVAR) endovascular aneurysm repair Fear associated with healthcare Gallbladder abnormality GERD (gastroesophageal reflux disease) History of stent insertion of renal artery Hypercholesteremia Hypertension Hypertensive urgency Resolved Hyponatremia Hypothyroidism Inguinal swelling Major depressive disorder, recurrent severe without psychotic features Malnourished Normal colonoscopy NSTEMI (non-ST elevated myocardial infarction) Osteoporosis Peripheral vascular disease Protein-energy malnutrition Psychiatric care Restless leg Solitary kidney Surgical History H/O: hysterectomy History of renal stent Herculink stent History of repair of aneurysm of abdominal aorta using endovascular stent graft Hx of colonoscopy with polypectomy Age 62 Hx of tonsillectomy S/P appendectomy Status post endovascular aneurysm repair (EVAR) Family History Mother CAD (coronary artery disease) Chronic kidney disease (CKD) Dementia Stroke Father CAD (coronary artery disease) Cancer Diabetes Brother CAD (coronary artery disease) Cancer Lung disease Grandfather Cancer Grandmother Diabetes Family/Other Lung disease Suicide Other Hypertension Denies family history of Clotting disorder Anesthesia complication Bleeding disorder Social History Smoking and tobacco status: former smoker Quit status (tobacco): has quit using tobacco Year quit tobacco: 2005 - PPD x 35 Years Former quit date comment: Started at age 18 Second hand smoke exposure: No Smoking risk assessment/counseling performed?: No Alcohol intake: never Desire information about alcohol rehabilitation?: No Counseling given: No Desire information about substance/drug rehabilitation?: No Counseling given: No Adopted: No Caregiver/support person: No Lives independently: Yes Household members: family and children Housing: House Marital status: / Marital status details: 2006 Number of children: 12 Number of grandchildren: 4 Highest education level completed: Master's Degree Education level details: Criminal Justice service: No Current occupational status: disabled Current occupational exposures/hazards: No Pets and animals: Yes Pets & animals: cat(s), dog(s) and farm animals Farm Animals: cattle Leisure activites: reading and other Leisure activities details: watch TV Sexually active: No Current gender identity: Female Yudy/Cheondoism: Religion [employer] Special yudy needs: No Agree to transfusion: Yes Financial difficulty paying for basics: Somewhat Hard Female Reproductive History: Para: 0 Spontaneous abortions: Yes Vitals/I&O/Wt Last Vital Signs Temp 98.6 F 10/26/22 19:32 Pulse 83 10/26/22 19:32 Resp 16 10/26/22 19:32 BP 172/84 10/26/22 19:32 Pulse Ox 94 10/26/22 19:32 O2 Del Method Room Air 10/26/22 19:32 O2 Flow Rate 2 10/26/22 11:16 FiO2 2 10/25/22 15:28 10/26/22 10/26/22 10/26/22 06:59 14:59 22:59 Intake Total 240 / 1061 175.675 / 175.675 300 / 475.675 Balance 240 / 1051 175.675 / 175.675 300 / 475.675 Physical Exam Narrative: GENERAL: The patient is alert and oriented times three. Not in any acute distress. Slightly tachypneic. Generalized wasting, appears cachectic. Multiple ecchymotic areas in the upper and lower extremities with healed ulcers HEENT: Mild pallor, no icterus or lymphadenopathy.Oral cavity: There are no mucous membrane lesions. NECK: Trachea appears to be central. No masses noted. No JVD or thyromegaly appreciated. RESPIRATORY: Breath sounds are bilaterally with a diminished intensity of breath sounds at bases. Scattered coarse crackles and occasional expiratory wheezings. BREASTS: Deferred. HEART: The heart sounds are normal. No S3 or S4. Systolic murmur grade 3 or 6 in the left sternal border. No diastolic murmurs. No pericardial rub ABDOMEN: No vessel pulsations or distention. No tenderness. No organomegaly appreciated. Bowel sounds are normally heard. : Deferred. RECTAL: Deferred. LYMPHATIC: No lymphadenopathy noted in the neck. EXTREMITIES: Extreme wasting. Multiple ecchymotic areas in the upper and lower extremities. Most of these are healed. Multiple healed ulcerations in the extremities. The right calf area is bandaged with some bleeding through the bandage MUSCULOSKELETAL: No acute joint deformities or swelling SKIN: Healed ulcerations and ecchymosis as mentioned above NEUROPSYCHIATRIC: The patient is alert and oriented x3. Chronically ill looking and lethargic Urinary Catheter Management: Martins: Cath Placed During This Visit: yes, but has since been removed by the nurse Reason for Continuing Indwelling Catheter: Decision to DC Catheter Urinary Catheter Date of Insertion: 10/19/22 Urinary Catheter Time of Insertion: 17:31 Date Urinary Catheter Removed: 10/23/22 Time Urinary Catheter Discontinued: 18:00 Data 10/27/22 05:54 10/27/22 05:54 Other Labs: Laboratory Last Values WBC 14.5 10^3/uL (4.0-10.0) H 10/26/22 04:55 RBC 3.66 10^6/uL (4.1-5.3) L 10/26/22 04:55 Hgb 11.3 g/dL (11.5-15.3) L 10/26/22 04:55 Hct 38.9 % (37.0-47.0) 10/26/22 04:55 MCV 106.3 fl (81-99) H 10/26/22 04:55 MCH 30.9 pg (28.0-34.0) 10/26/22 04:55 MCHC 29.0 g/dL (30.0-36.0) L 10/26/22 04:55 RDW 17.7 % (12.1-15.1) H 10/26/22 04:55 Plt Count 108 10^3/cmm (130-400) L 10/26/22 04:55 MPV 9.9 fL (7.4-10.4) 10/26/22 04:55 Neut % (Auto) 84.9 % 10/26/22 04:55 Lymph % (Auto) 12.1 % 10/26/22 04:55 [place] % (Auto) 2.0 % 10/26/22 04:55 Eos % (Auto) 0.0 % 10/26/22 04:55 Baso % (Auto) 0.1 % 10/26/22 04:55 Neut # (Auto) 12.33 10^3/uL (1.8-7.7) H 10/26/22 04:55 Lymph # (Auto) 1.8 10^3/uL (0.8-4.8) 10/26/22 04:55 [place] # (Auto) 0.3 10^3/uL (0.2-0.9) 10/26/22 04:55 Eos # (Auto) 0.0 10^3/uL (0.0-0.8) 10/26/22 04:55 Baso # (Auto) 0.0 10^3/uL (0.0-0.1) 10/26/22 04:55 Nucleated RBC % (auto) 0 % 10/26/22 04:55 Nucleated RBCs # 0.0 /100WBC 10/26/22 04:55 D-Dimer 8.60 ug/mIFEU (0-0.59) H 10/19/22 14:45 Specimen Type Arterial 10/19/22 09:55 Sample Site Radial, right 10/19/22 09:55 ABG pH 7.27 (7.35-7.45) L 10/19/22 09:55 ABG pCO2 51.4 mmHg (35-45) H 10/19/22 09:55 ABG pO2 72.4 mmHg (80.0-100.0) L 10/19/22 09:55 ABG HCO3 23.5 mmol/L (22-26) 10/19/22 09:55 ABG O2 Saturation 91.6 10/19/22 09:55 ABG Base Excess -3.8 mmol/L (-2.0-2.0) L 10/19/22 09:55 Roly Test Pos 10/19/22 09:55 A-a O2 Gradient 12.4 mmHg (5-10) H 10/19/22 09:55 Hematocrit 36.4 % (37-47) L 10/19/22 09:55 Hgb O2 Saturation 90.4 % (95-100) L 10/19/22 09:55 Carboxyhemoglobin 0.3 %THgb (0.4-20.1) L 10/19/22 09:55 Methemoglobin 0.9 % (0.4-1.5) 10/19/22 09:55 Total Hemoglobin 11.9 g/dL (12-16) L 10/19/22 09:55 Sodium 140.0 mmol/L (131-143) 10/19/22 09:55 Potassium 6.9 mmol/L (3.5-5.0) H 10/19/22 09:55 Glucose 91.0 mg/dL (70-115) 10/19/22 09:55 Ionized Calcium 1.3 mmol/L (1.1-1.4) 10/19/22 09:55 O2 Delivery Device Nc 10/19/22 09:55 O2 Liters/Min 3.0 % 10/19/22 09:55 FiO2 32.0 % 10/19/22 09:55 [employer] [place] 10/19/22 09:55 Sodium 137 mmol/L (136-145) 10/26/22 04:55 Potassium 5.6 mmol/L (3.5-5.1) H 10/26/22 04:55 Chloride 97 mmol/L (98-107) L 10/26/22 04:55 Carbon Dioxide 23 mmol/L (22-29) 10/26/22 04:55 Anion Gap 22.6 (5-19) H 10/26/22 04:55 BUN 89 mg/dL (8-23) H* 10/26/22 04:55 Creatinine 6.0 mg/dL (0.5-0.9) H* 10/26/22 04:55 GFR Calculation 7.0 mL/min (90-130) L 10/26/22 04:55 Glucose 119 mg/dL (65-115) H 10/26/22 04:55 Calculated Osmolality 312 mOsm/kg (285-295) H 10/26/22 04:55 Lactic Acid 1.1 mmol/L (0.5-2.2) 10/19/22 14:34 Calcium 8.9 mg/dL (8.5-10.5) 10/26/22 04:55 Phosphorus 4.9 mg/dL (2.5-4.5) H 10/26/22 04:55 Magnesium 2.6 mg/dL (1.7-2.3) H 10/26/22 04:55 Total Bilirubin 0.3 mg/dL (0.15-1.2) 10/26/22 04:55 AST 14 U/L (0-32) 10/26/22 04:55 ALT 21 U/L (0-33) 10/26/22 04:55 Alkaline Phosphatase 66 U/L (35-105) 10/26/22 04:55 Troponin T Baseline 275 ng/L (0-10) H* 10/19/22 10:01 Troponin T 120 Minute 275.5 ng/L (0-10) H 10/19/22 11:57 Delta Troponin T 0.5 ABS# (0-10) 10/19/22 11:57 Troponin T Hi Sens 6Hr 268.2 ng/L (0-10) H 10/19/22 16:06 Troponin T Hi Sens 6Hr Delta -6.8 ng/L (0-12) L 10/19/22 16:06 C-Reactive Protein 4.6 mg/L (0.0-4.9) 10/23/22 06:02 NT-Pro-B Natriuret Pep 68811 pg/mL (0-125) H 10/25/22 04:51 Total Protein 6.1 g/dL (6.6-8.7) L 10/26/22 04:55 Albumin 4.3 g/dL (3.5-5.2) 10/26/22 04:55 Globulin 1.8 g/dL (1.3-4.6) 10/26/22 04:55 Carcinoembryonic Ag 3.0 ng/mL (0.0-4.7) 10/19/22 14:34 CA 19-9 Antigen 33.67 U/mL (0-35) 10/19/22 14:34 Procalcitonin 0.89 ng/mL (0-0.5) H 10/23/22 06:02 TSH 6.24 uIU/mL (0.27-4.20) H 10/23/22 06:02 Free T4 0.60 ng/dL (0.82-1.77) L 10/23/22 06:02 Free T3 1.1 PG/ML (2.0-4.4) L 10/23/22 06:02 PTH Intact 153.1 pg/mL (15-65) H 10/26/22 04:55 Calcium (PTH Intact) 8.8 mg/dL (8.5-10.5) 10/26/22 04:55 Nasal Influ A H1 2009 PCR Not detected (NOT DETECT) 10/23/22 03:50 Adenovirus (PCR) Not detected (NOT DETECT) 10/23/22 03:50 C. pneumoniae DNA (PCR) Not detected (NOT DETECT) 10/23/22 03:50 Coronavirus 229E (PCR) Not detected (NOT DETECT) 10/23/22 03:50 Hep Bs Antigen Non-reactive (Nonreactive) 10/19/22 10:01 Hep Bs Antibody 70.4 (11.5-1000) 10/19/22 10:01 Hep B Core Total Ab Non-reactive (Nonreactive) 10/19/22 10:01 Hepatitis C Antibody Non-reactive (Nonreactive) 10/19/22 10:01 Human Metapneumovir PCR Not detected (NOT DETECT) 10/23/22 03:50 Influenza A (H1) PCR Not detected (NOT DETECT) 10/23/22 03:50 Influenza A (H3) PCR Not detected (NOT DETECT) 10/23/22 03:50 Influenza Type A (PCR) Not detected (NOT DETECT) 10/23/22 03:50 Influenza Type B (PCR) Not detected (NOT DETECT) 10/23/22 03:50 M. pneumoniae (PCR) Not detected (NOT DETECT) 10/23/22 03:50 Parainfluenza 1 (PCR) Not detected (NOT DETECT) 10/23/22 03:50 Parainfluenza 2 (PCR) Not detected (NOT DETECT) 10/23/22 03:50 Parainfluenza 3 (PCR) Not detected (NOT DETECT) 10/23/22 03:50 Parainfluenza 4 (PCR) Not detected (NOT DETECT) 10/23/22 03:50 RSV Type A (PCR) Not detected (NOT DETECT) 10/23/22 03:50 RSV Type B (PCR) Not detected (NOT DETECT) 10/23/22 03:50 Entero/Rhino (PCR) Not detected (NOT DETECT) 10/23/22 03:50 SARS-CoV-2 (PCR) Not detected (NOT DETECT) 10/23/22 03:50 Micro: Microbiology 10/25/22 16:45 MRSA Culture - Final Nose Echo: My impression: 09/23/2022 1-Normal left ventricular size, systolic function and wall ?thickness, with no regional wall motion abnormalities.? Left ?ventricular ejection fraction is estimated at 60 %. Grade I/IV ?diastolic dysfunction (abnormal relaxation filling pattern), ?normal to mildly elevated filling pressures. ?2-Structurally normal mitral valve without significant stenosis ?or prolapse.? Moderate mitral regurgitation. ?3-Moderate aortic valve calcification. No aortic valve stenosis. ?.? Trace aortic regurgitation.? ?4-There is no pericardial effusion. ?5-Right atrial pressure is around 5 mm of mercury. EKG 1: My Interpretation: The EKG from 10/19/2022 revealed normal sinus rhythm with a heart rate of 98 bpm. Poor R wave progression. Some voltage criteria for LVH. A&P Assessment and plan (1) Acute and chronic respiratory failure: This could be multifactorial. Pneumonia, CHF, fluid overload, etc. are considerations. (2) Elevated troponin: Possibility of underlying coronary artery disease causing non-ST elevation OR is a consideration. Type II OR also is a consideration. For further evaluation of the coronary status, I may consider doing a dobutamine/sestamibi/sestamibi stress test. This was discussed with the patient in detail which is understood well. (3) Acute on chronic diastolic (congestive) heart failure: Careful diuresis/hemodialysis would be appropriate. (4) Chronic kidney disease with 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 due to type 2 diabetes mellitus: Patient is on hemodialysis 3 times a week. Plan Dobutamine/sestamibi/sestamibi stress would be appropriate to evaluate for any underlying coronary ischemia. Based on the results, further recommendations will be made. May continue to optimize medical treatment. Thank you for the opportunity to evaluate this patient and make these recommendations Consult Attestations Medical Necessity Statement: Patient requires continued hospital stay for close monitoring and further management Coding Level of Care Code 02098 Diagnoses Acute and chronic respiratory failure J96.20 Elevated troponin R77.8 Acute on chronic diastolic (congestive) heart failure I50.33 Chronic kidney disease with 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 due to type 2 diabetes mellitus E11.22; N18.6; Z99.2
[2022-10-26] MEDS: ropinirole 1 mg Tablet PO (20:08)
[2022-10-26] MEDS: metoprolol succinate ER (24 HR) 50 mg Tablet PO (20:08)
--- NOTE | 2022-10-26 20:54 | ECG_ITS ---
[facility] Test Date: 2022-10-27 Pat Name: Hali James Department: Room: 270 Gender: Female Cataract Lens Generator: : 1955 Requested By: Guillermo Culver Order Number: [id number] Wil MD: Guillermo Culver M.D. Interpretive Statements NAME OF STUDY: DOBUTAMINE SESTAMIBI STRESS TEST INDICATION: CHF/ELEVATED TROPONIN, PROCEDURE: At the baseline, the blood pressure was 111/69 with a heart rate of 72. The electrocardiogram showed normal sinus rhythm with a poor R wave progression. Some nonspecific ST changes in the inferior leads.. The dobutamine was infused over a period of 22 minutes and 12 seconds. The maximum heart rate obtained was 128 (82% of the maximum predicted heart rate). The blood pressure at that time was 120/63 mmHg. The patient did not have any chest pain or any significant electrocardiogram changes with the dobutamine infusion. The physical examination remained unchanged. No arrhythmias were seen on the monitor. During the recovery phase, the patient did not have any specific symptoms. The blood pressure at the end of the recovery phase was 91/70 with a heart rate of 94 per minute. CONCLUSION: 1. Nonspecific EKG changes with intermittent duration. 2. No dobutamine induced chest pain or cardiac arrhythmia. 3. Normal blood pressure and heart rate response to dobutamine infusion 4. Sestamibi/Sestamibi perfusion scan pending; see separate report. Electronically Signed On 10-31-2022 18:04:45 CDT by Guillermo Culver M.D. [email or web address]
--- NOTE | 2022-10-26 20:55 | PC.HD ---
Pt experienced symptomatic hypotension during treatment in spite of machine temp lowered, albumin 25gms, and pausing fluid removal, tx terminated early and October RN took pt back to her room. Dr Rachel pappas
[2022-10-27] VITALS (16 sets, daily range): BP systolic 91–158; BP diastolic 62–86; PULSE 69–93; RESP 14–18; TEMP 36.4–37.1; O2SAT 91–100
[2022-10-27] MEDS: atorvastatin 40 mg Tablet PO (05:02)
[2022-10-27] MEDS: levothyroxine 75 mcg Tablet PO (05:02)
[2022-10-27] MEDS: morphine 4 mg/mL SDV 1 mL 1 MG IVP ×4 (05:09→20:26)
--- NOTE | 2022-10-27 05:19 | PC.NURSE ---
Patient's dressing to right lower extremity changed x2 during my shift due to being saturated.
[2022-10-27 06:23] LABS: Basophils % 0.1 %; Hematocrit 34.1 % (37.0-47.0); Hemoglobin 10.2 g/dL (11.5-15.3); Lymphocytes % 15.4 %; Mean Corpuscular HGB Conc 29.9 g/dL (30.0-36.0); Mean Corpuscular Hemoglobin 31.8 pg (28.0-34.0); Mean Corpuscular Volume 106.2 fl (81-99); Mean Platelet Volume 10.3 fL (7.4-10.4); Monocytes # 0.7 10^3/uL (0.2-0.9); Monocytes % 5.1 %; Neutrophils # 10.16 10^3/uL (1.8-7.7); Neutrophils % 78.2 %; Nucleated Red Blood Cells % 0 %; Platelet Count 125 10^3/cmm (130-400); Red Blood Count 3.21 10^6/uL (4.1-5.3); Red Cell Distribution Width 17.3 % (12.1-15.1)
--- NOTE | 2022-10-27 06:28 | PC.NURSE ---
Dr. Culver notified of patient taking Metoprolol BID. Ordered to continue with Doubutamine stress test. CDL notified.
[2022-10-27 06:44] LABS: Alanine Aminotransferase 17 U/L (0-33); Albumin Level 4.9 g/dL (3.5-5.2); Alkaline Phosphatase 60 U/L (35-105); Anion Gap 19.5 (5-19); Aspartate Amino Transferase 17 U/L (0-32); Blood Urea Nitrogen 47 mg/dL (8-23); Calcium 8.8 mg/dL (8.5-10.5); Carbon Dioxide 26 mmol/L (22-29); Chloride 98 mmol/L (98-107); Globulin 1.5 g/dL (1.3-4.6); Glomerular Filtration Rate 12.3 mL/min (90-130); Glucose 90 mg/dL (65-115); Magnesium 2.3 mg/dL (1.7-2.3); Osmolality Calculated 300 mOsm/kg (285-295); Phosphorus 5.2 mg/dL (2.5-4.5); Potassium 4.5 mmol/L (3.5-5.1); Sodium 139 mmol/L (136-145); Total Bilirubin 0.4 mg/dL (0.15-1.2); Total Protein 6.4 g/dL (6.6-8.7)
--- NOTE | 2022-10-27 07:26 | PM.PN ---
Subjective Subjective: feels better. no molina. did well on dialysis yesterday. Medications: Reviewed: Yes Medication Review Details: Current Medications Acetaminophen (Acetaminophen 325 Mg Tablet) 650 mg PO Q6H PRN PRN Reason: Mild/Mod Pain Or Temp >/= 101 Albuterol/Ipratropium (Ipratropium-Albuterol 3 Ml Neb) 3 ml INHALATION QID.RESPIRATORY [facility] Last Admin: 10/26/22 21:08 Dose: 3 ml Aspirin (Aspirin 81 Mg Ec Tablet) 81 mg PO DAILY@0830 [facility] Last Admin: 10/26/22 08:35 Dose: 81 mg Atorvastatin Calcium (Atorvastatin 40 Mg Tablet) 40 mg PO QAM [facility] Last Admin: 10/27/22 05:02 Dose: 40 mg Atropine Sulfate (Atropine 0.1 Mg/Ml Syr 10 Ml) 0.5 mg IVP PRN PRN PRN Reason: HR Stop: 10/28/22 06:26 Budesonide (Budesonide 0.5 Mg/2 Ml Neb) 0.5 mg INHALATION BID.RESPIRATORY [facility] Last Admin: 10/26/22 21:08 Dose: 0.5 mg Buspirone HCl (Buspirone 10 Mg Tablet) 15 mg PO BID [facility] Last Admin: 10/26/22 17:35 Dose: 15 mg Citalopram Hydrobromide (Citalopram 20 Mg Tablet) 40 mg PO DAILY@0830 [facility] Last Admin: 10/26/22 08:35 Dose: 40 mg Enoxaparin Sodium (Enoxaparin 30 Mg/0.3 Ml Syringe) 30 mg SUBCUT Q24H [facility] Last Admin: 10/26/22 17:36 Dose: 30 mg Esmolol HCl (Esmolol 100 Mg/10 Ml Sdv) 5 mg IV PRN PRN PRN Reason: HR Stop: 10/28/22 06:27 Heparin Sodium (Porcine) (Heparin, Porcine 1,000 Unit/Ml Inj 10 Ml) 1,000 unit HE PRN PRN PRN Reason: HEMODIALYSIS USE ONLY Last Admin: 10/25/22 15:48 Dose: 1,000 unit Piperacillin Sod/Tazobactam (Sod 3.375 gm/ Sodium Chloride) 50 mls @ 12.5 mls/hr IV Q12H [facility] Last Infusion: 10/26/22 23:56 Dose: Infused Albumin Human (Albumin) 12.5 gm in 50 mls @ 60 mls/hr IV PRN PRN PRN Reason: Hypotension and/or symptomatic Last Infusion: 10/25/22 16:41 Dose: Infused Sodium Chloride (Sodium Chloride 0.9%) 1,000 mls @ 0 mls/hr IV .Q0M PRN PRN Reason: hypotension or symptomatic Dobutamine HCl 200 mg/ Sodium (Chloride) 50 mls @ 0 mls/hr IV .Q0M PRN; Protocol PRN Reason: per protocol Isosorbide Mononitrate (Isosorbide Mononitrate Er 60 Mg Tablet) 60 mg PO BID [facility] Last Admin: 10/26/22 17:35 Dose: 60 mg Levothyroxine Sodium (Levothyroxine 75 Mcg Tablet) 75 mcg PO QAM [facility] Last Admin: 10/27/22 05:02 Dose: 75 mcg Liothyronine Sodium (Liothyronine 5 Mcg Tablet) 10 mcg PO DAILY [facility] Last Admin: 10/26/22 08:30 Dose: 10 mcg Lorazepam (Lorazepam 2 Mg/Ml Inj 1 Ml) 0.5 mg IVP Q8H PRN PRN Reason: ANXIETY Last Admin: 10/26/22 20:09 Dose: 0.5 mg Metoprolol Succinate (Metoprolol Succinate Er (24 Hr) 50 Mg Tablet) 50 mg PO BID@0830,2100 [facility] Last Admin: 10/26/22 20:08 Dose: 50 mg Metoprolol Tartrate (Metoprolol Tartrate 1 Mg/1 Ml Sdv 5 Ml) 5 mg IV PRN PRN PRN Reason: HR Montelukast Sodium (Montelukast Sodium 10 Mg Tablet) 10 mg PO DAILY@0830 [facility] Last Admin: 10/26/22 08:35 Dose: 10 mg Morphine Sulfate (Morphine 4 Mg/Ml Sdv 1 Ml) 1 mg IVP Q4H PRN PRN Reason: SEVERE PAIN Last Admin: 10/27/22 05:09 Dose: 1 mg Nitroglycerin (Nitroglycerin 0.4 Mg Sublingual Tablet) 0.4 mg SUBLINGUAL Q5M PRN PRN Reason: Chest Pain Nitroglycerin (Nitroglycerin 0.4 Mg Sublingual Tablet) 0.4 mg SUBLINGUAL Q5M PRN PRN Reason: CHEST PAIN Stop: 10/28/22 06:26 Non-Formulary Medication (Vit B,G-Qk-Xarg-Selen-Vit D3-E [Renaplex-D]) 1 tab PO QPM [facility] Last Admin: 10/26/22 17:36 Dose: Not Given Ondansetron HCl (Ondansetron 2 Mg/Ml Sdv 2 Ml) 4 mg IVP Q8H PRN PRN Reason: vomiting, or N/V if npo Last Admin: 10/23/22 20:59 Dose: 4 mg Ondansetron HCl (Ondansetron 2 Mg/Ml Sdv 2 Ml) 4 mg IVP Q2M PRN PRN Reason: NAUSEA Pantoprazole Sodium (Pantoprazole 40 Mg Sdv) 40 mg IVP Q24H [facility] Last Admin: 10/26/22 17:37 Dose: 40 mg Prednisone (Prednisone 20 Mg Tablet) 40 mg PO DAILY [facility] Last Admin: 10/26/22 08:31 Dose: 40 mg Ropinirole HCl (Ropinirole 1 Mg Tablet) 1 mg PO BEDTIME [facility] Last Admin: 10/26/22 20:08 Dose: 1 mg Sevelamer Carbonate (Sevelamer 800 Mg Tablet) 400 mg PO TID [facility] Last Admin: 10/26/22 20:09 Dose: 400 mg Vitals/I&O/Wt Last Vital Signs Temp 98.0 F 10/27/22 03:27 Pulse 74 10/27/22 04:56 Resp 16 10/27/22 03:27 BP 151/77 10/27/22 03:27 Pulse Ox 94 10/27/22 03:27 O2 Del Method Nasal Cannula 10/27/22 03:27 O2 Flow Rate 2 10/26/22 21:08 FiO2 2 10/25/22 15:28 10/26/22 10/27/22 10/27/22 22:59 06:59 14:59 Intake Total 950 / 1125.675 50 / 1175.675 Output Total 1728 / 1728 Balance -778 / -602.325 50 / -552.325 Weight last 48 hrs Weight 31.7 kg Weight 32.5 kg Physical Exam Narrative: seen and examined w/ RN - comfortable in bed, NARD, vs noted heent- ncat neck supple lungs -improved air movement b/l heart reg abd soft, left sided tender, + bs ext 1+ b/l leg edema rt IJ permacath neuro- a,a, o x 3 Urinary Catheter Management: Martins: Cath Placed During This Visit: yes, but has since been removed by the nurse Reason for Continuing Indwelling Catheter: Decision to DC Catheter Urinary Catheter Date of Insertion: 10/19/22 Urinary Catheter Time of Insertion: 17:31 Date Urinary Catheter Removed: 10/23/22 Time Urinary Catheter Discontinued: 18:00 Data 10/27/22 05:54 10/27/22 05:54 Micro: Microbiology 10/25/22 16:45 MRSA Culture - Final Nose A&P Assessment and plan (1) ESRD on dialysis: 67 yr old female ESRD, copd, HFpEF, type II NSTEMI, moderate MR 1. ESRD - HD yesterday- repeat hd tomorrow 3.5 hrs, 2k, remove 2l as tolerated 2. anemia- iron studies noted- high iron sat and ferritin in September. -give epo 3. SOB/ HFpEF/ ESRD-= [place] [address] [place] [address]- repeat bnp, d/c bp meds. remove fluids on hd. continue ARB 4. abd pain/ chelly-GB mass- for CCY and further evaluation later in october by surgery 5. hypothyroidism on levothyroxine seen and examined w/ RN= telehealth visit time spent 30 min Plan as above Attestations Medical Necessity Statement*: per medicine Time Spent in Patient Care: 16 - 35 minutes (>than 50% of time spent in counselling and/or direct pt care on unit). Coding Level of Care Code Acute Code for Chg Fwd Diagnoses ESRD on dialysis N18.6; Z99.2
[2022-10-27] MEDS: ipratropium-albuterol 3 mL Neb INHALATION ×3 (08:44→20:24)
[2022-10-27] MEDS: epoetin alfa 1000 Unit/0.05 mL (ESRD) 20000 UNIT SUBCUT (10:18)
[2022-10-27] MEDS: piperacillin-tazobactam 3.375 GM in sodium chloride 0.9% (plus) 50 ML IV (10:27)
[2022-10-27] MEDS: DOBUTtamine 200 MG in sodium chloride 0.9% 34 ML IV (11:42)
[2022-10-27] MEDS: atropine 0.1 mg/mL Syr 10 mL 0.5 MG IVP (12:01)
[2022-10-27] MEDS: metoprolol tartrate 1 mg/1 mL SDV 5 mL 5 MG IV (12:06)
[2022-10-27] MEDS: enoxaparin 30 mg/0.3 mL Syringe SUBCUT (13:23)
[2022-10-27] MEDS: citalopram 20 mg Tablet 40 MG PO (13:29)
[2022-10-27] MEDS: liothyronine 5 mcg Tablet 10 MCG PO (13:29)
[2022-10-27] MEDS: BuSPIRONE 10 mg Tablet 15 MG PO ×2 (13:30→17:36)
[2022-10-27] MEDS: sevelamer 800 mg Tablet PO ×2 (13:30→17:38)
[2022-10-27] MEDS: predniSONE 20 mg Tablet 40 MG PO (13:31)
[2022-10-27] MEDS: pantoprazole 40 mg SDV IVP (13:31)
--- NOTE | 2022-10-27 15:35 | P.PN_ITS ---
Subjective Subjective: No acute event overnight. Patient denies any nausea, vomiting, headache. States feeling better. Blood pressure stable. Tolerated dialysis well yesterday. Denies any chest pain. On 2 L saturating more than 90%. Vitals/I&O/Wt Last Vital Signs Temp 98.0 F 10/27/22 12:00 Pulse 85 10/27/22 15:24 Resp 16 10/27/22 15:24 BP 91/70 10/27/22 13:39 Pulse Ox 94 10/27/22 15:24 O2 Del Method Nasal Cannula 10/27/22 15:24 O2 Flow Rate 2 10/27/22 15:24 FiO2 2 10/25/22 15:28 10/27/22 10/27/22 10/27/22 06:59 14:59 22:59 Intake Total 50 / 1175.675 56.75 / 56.75 Balance 50 / -552.325 56.75 / 56.75 Weight last 48 hrs Weight 31.7 kg Physical Exam Narrative: General: No acute distress, AO x3, frail, chronically sick appearing, cachectic HEENT: PERRLA, pupils bilaterally equal and reactive Chest: Normal vesicular breath sounds, no added sounds, equal good air entry bilaterally CVS: S1-S2 regular, pansystolic murmur at apex radiating to anterior axillary line 2/6, no tachycardia, no gallops, no rubs Abdomen: Soft, nontender, no organomegaly, bowel sounds present Neuro: No focal deficits, no facial deformity, AO x3, power 5/5 in all limbs Skin: NARRATIVE SKIN EXAM: Patient has a superficial skin break, right lower extremity OTHER: Has peripheral wasting, muscle wasting temporal muscle wasting, muscle wasting of the legs, specifically of the thighs, over the arms, Urinary Catheter Management: Martins: Cath Placed During This Visit: yes, but has since been removed by the nurse Reason for Continuing Indwelling Catheter: Decision to DC Catheter Urinary Catheter Date of Insertion: 10/19/22 Urinary Catheter Time of Insertion: 17:31 Date Urinary Catheter Removed: 10/23/22 Time Urinary Catheter Discontinued: 18:00 Data 10/27/22 05:54 10/27/22 05:54 Micro: Microbiology 10/25/22 16:45 MRSA Culture - Final Nose A&P Assessment and plan (1) Acute hyperkalemia: (2) End stage renal 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: (3) Acute and chronic respiratory failure: (4) Congestive heart failure: Qualifiers: Heart failure chronicity: acute on chronic Heart failure type: unspecified Qualified Code(s): I50.9 - Heart failure, unspecified (5) COPD with acute exacerbation: (6) Healthcare-associated pneumonia: (7) Shortness of breath: (8) Chronic kidney disease with 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 due to type 2 diabetes mellitus: (9) Gallbladder anomaly: (10) Transaminitis: (11) Depression: (12) Physical deconditioning: (13) Muscle wasting: (14) Protein calorie malnutrition: (15) NSTEMI (non-ST elevated myocardial infarction): (16) Metabolic acidosis: (17) Anxiety: (18) Hypothyroidism: Qualifiers: Hypothyroidism type: acquired Qualified Code(s): E03.9 - Hypothyroid ism, unspecified Plan Acute on chronic hypoxic hypercarbic respiratory failure: Most likely in setting of congestive heart failure from hypertensive urgency in setting of moderate mitral regurgitation, diastolic heart failure, community- acquired pneumonia and COPD exacerbation. Dialysis for congestive heart failure. Further adjustment of heart failure regimen medications. Goal blood pressure less than 140/90 mmHg with mean over 65. Continue to monitor blood pressures. Blood pressure is better controlled now. Continue with metoprolol 50 mg twice daily, Imdur 30 mg twice daily. Holding off on losartan given persistent hyperkalemia. We will try to add low-dose ARB if blood pressures tolerated well. Continue to monitor blood pressures and as antihypertensives are being adjusted. If needed can do midodrine 5 mg as needed on day of dialysis for systolic blood pressure of less than [address] chest results with concerning for left upper lobe pneumonia. Multiple recent hospitalization. MRSA negative. Sputum culture recently grew Pseudomonas. Last day of Zosyn 0 10/26. Finish 7-day course of antibiotics. For COPD exacerbation: Continue with DuoNebs every 6 hour, budesonide twice da alka. Continue with oral prednisone 40 mg oral daily. We will plan to stop prednisone 40 mg in 5 days and switch to home dose of 5 mg of oral prednisone. Oxygen supplementation keeping saturation over 90%. Wean accordingly. End-stage renal disease on hemodialysis/acute hyperkalemia/metabolic acidosis: Metabolic acidosis and hyperkalemia in setting of missed dialysis. Resolved now. Appreciate nephrology recommendations. As per schedule. Holding off on losartan. Type II NSTEMI: Likely type II [place] though cannot rule out baseline ACS given elevated troponin for last 3 to 4 months. Troponin cycle appreciated. Recent echocardiogram showed EF of 60% with grade 1 diastolic dysfunction, moderate mitral regurgitation. Troponins recently have been trending up. Given recurrent admissions cannot rule out underlying CAD. Care discussed in detail with Dr. Culver. Patient does need further intervention for a possible CAD but given complicated history of AAA repair for now we will keep cardiac angiogram as a last resort. Plan for dobutamine stress echocardiogram today. We will follow results. Continue with aspirin 81 mg daily, atorvastatin 40 mg daily, metoprolol at current dose. Appreciate recent A1c and lipid panel. Soft tissue mass inseparable from small portion of the gallbladder wall: Appreciate gallbladder ultrasound. Mild transaminitis. Plan for cholecystectomy later in October with Dr. Petit as an outpatient. Hypothyroidism: Elevated TSH with low T3. Levothyroxine increased to 75 mcg daily. Will need to repeat thyroid profile in 4 weeks. Protein calorie malnutrition, protein shakes Physical deconditioning Anorexia, malnourishment Goals of care, patient wants to be a full code agreeable to elective intubation if required Lovenox for DVT prophylax Protonix for GI prophylaxis Discussed the treatment plan in detail with patient. She is agreeable for dobutamine stress test. Discharge plan: Plan to discharge to home with possible home health once medically stable. Most likely continued hospitalization for next 48 hours. Attestations Medical Necessity Statement*: Requires further hospitalization for management of acute on chronic hypoxic respiratory failure in setting of congestive heart failure in a patient with moderate MR, history of CAD with type II [place], end-stage renal disease on maintenance hemodialysis Diagnoses Acute hyperkalemia E87.5 End stage renal 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 N18.6; Z99.2 Acute and chronic respiratory failure J96.20 Congestive heart failure I50.9 Heart failure chronicity: acute on chronic Heart failure type: unspecified COPD with acute exacerbation J44.1 Healthcare-associated pneumonia J18.9 Shortness of breath R06.02 Chronic kidney disease with 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 due to type 2 diabetes mellitus E11.22; N18.6; Z99.2 Gallbladder anomaly Q44.1 Transaminitis R74.01 Depression F32.A Physical deconditioning R53.81 Muscle wasting M62.50 Protein calorie malnutrition E46 NSTEMI (non-ST elevated myocardial infarction) I21.4 Metabolic acidosis E87.20 Anxiety F41.9 Hypothyroidism E03.9 Hypothyroidism type: acquired
[2022-10-27] MEDS: isosorbide mononitrate ER 60 mg Tablet 30 MG PO (17:36)
[2022-10-27] MEDS: budesonide 0.5 mg/2 mL Neb INHALATION (20:24)
[2022-10-27] MEDS: ondansetron 2 mg/ML SDV 2 mL 4 MG IVP (20:30)
--- NOTE | 2022-10-27 20:33 | PC.NURSE ---
RONNY Ralph reached renewal stop date. Renewed via telephone with Dr. Duran.
--- NOTE | 2022-10-27 20:47 | PM.PN ---
Subjective Subjective: This patient had the Myocardial perfusion imaging today. Her perfusion imaging was essentially unremarkable. No evidence of ischemia based on the perfusion scan. Patient is remaining chest pain-free. She has a baseline shortness of breath with activities. No fever or chills. No orthopnea. Medications: Medication Review Details: Current Medications Acetaminophen (Acetaminophen 325 Mg Tablet) 650 mg PO Q6H PRN PRN Reason: Mild/Mod Pain Or Temp >/= 101 Albuterol/Ipratropium (Ipratropium-Albuterol 3 Ml Neb) 3 ml INHALATION QID.RESPIRATORY [facility] Last Admin: 10/27/22 20:24 Dose: 3 ml Aspirin (Aspirin 81 Mg Ec Tablet) 81 mg PO DAILY@0830 [facility] Last Admin: 10/27/22 13:13 Dose: Not Given Atorvastatin Calcium (Atorvastatin 40 Mg Tablet) 40 mg PO QAM [facility] Last Admin: 10/27/22 05:02 Dose: 40 mg Atropine Sulfate (Atropine 0.1 Mg/Ml Syr 10 Ml) 0.5 mg IVP PRN PRN PRN Reason: HR Stop: 10/28/22 06:26 Last Admin: 10/27/22 12:01 Dose: 0.5 mg Budesonide (Budesonide 0.5 Mg/2 Ml Neb) 0.5 mg INHALATION BID.RESPIRATORY [facility] Last Admin: 10/27/22 20:24 Dose: 0.5 mg Buspirone HCl (Buspirone 10 Mg Tablet) 15 mg PO BID [facility] Last Admin: 10/27/22 17:36 Dose: 15 mg Citalopram Hydrobromide (Citalopram 20 Mg Tablet) 40 mg PO DAILY@0830 [facility] Last Admin: 10/27/22 13:29 Dose: 40 mg Enoxaparin Sodium (Enoxaparin 30 Mg/0.3 Ml Syringe) 30 mg SUBCUT Q24H [facility] Last Admin: 10/27/22 13:23 Dose: 30 mg Esmolol HCl (Esmolol 100 Mg/10 Ml Sdv) 5 mg IV PRN PRN PRN Reason: HR Stop: 10/28/22 06:27 Heparin Sodium (Porcine) (Heparin, Porcine 1,000 Unit/Ml Inj 10 Ml) 1,000 unit HE PRN PRN PRN Reason: HEMODIALYSIS USE ONLY Last Admin: 10/25/22 15:48 Dose: 1,000 unit Albumin Human (Albumin) 12.5 gm in 50 mls @ 60 mls/hr IV PRN PRN PRN Reason: Hypotension and/or symptomatic Last Infusion: 10/25/22 16:41 Dose: Infused Sodium Chloride (Sodium Chloride 0.9%) 1,000 mls @ 0 mls/hr IV .Q0M PRN PRN Reason: hypotension or symptomatic Dobutamine HCl 200 mg/ Sodium (Chloride) 50 mls @ 0 mls/hr IV .Q0M PRN; Protocol PRN Reason: per protocol Last Titration: 10/27/22 12:05 Dose: Infused Isosorbide Mononitrate (Isosorbide Mononitrate Er 60 Mg Tablet) 30 mg PO BID [facility] Last Admin: 10/27/22 17:36 Dose: 30 mg Levothyroxine Sodium (Levothyroxine 75 Mcg Tablet) 75 mcg PO QAM [facility] Last Admin: 10/27/22 05:02 Dose: 75 mcg Liothyronine Sodium (Liothyronine 5 Mcg Tablet) 10 mcg PO DAILY [facility] Last Admin: 10/27/22 13:29 Dose: 10 mcg Lorazepam (Lorazepam 2 Mg/Ml Inj 1 Ml) 0.5 mg IVP Q8H PRN PRN Reason: ANXIETY Metoprolol Succinate (Metoprolol Succinate Er (24 Hr) 50 Mg Tablet) 50 mg PO BID@0830,2100 [facility] Last Admin: 10/27/22 13:12 Dose: Not Given Metoprolol Tartrate (Metoprolol Tartrate 1 Mg/1 Ml Sdv 5 Ml) 5 mg IV PRN PRN PRN Reason: HR Last Admin: 10/27/22 12:06 Dose: 5 mg Midodrine (Midodrine 5 Mg Tablet) 5 mg PO DAILY PRN PRN Reason: on day of dialysis for SBP less than 120 mmhg Montelukast Sodium (Montelukast Sodium 10 Mg Tablet) 10 mg PO DAILY@0830 [facility] Last Admin: 10/27/22 13:54 Dose: Not Given Morphine Sulfate (Morphine 4 Mg/Ml Sdv 1 Ml) 1 mg IVP Q4H PRN PRN Reason: SEVERE PAIN Last Admin: 10/27/22 20:26 Dose: 1 mg Nitroglycerin (Nitroglycerin 0.4 Mg Sublingual Tablet) 0.4 mg SUBLINGUAL Q5M PRN PRN Reason: Chest Pain Nitroglycerin (Nitroglycerin 0.4 Mg Sublingual Tablet) 0.4 mg SUBLINGUAL Q5M PRN PRN Reason: CHEST PAIN Stop: 10/28/22 06:26 Non-Formulary Medication (Vit B,Y-Cm-Uzhj-Selen-Vit D3-E [Renaplex-D]) 1 tab PO QPM [facility] Last Admin: 10/27/22 17:37 Dose: Not Given Ondansetron HCl (Ondansetron 2 Mg/Ml Sdv 2 Ml) 4 mg IVP Q8H PRN PRN Reason: vomiting, or N/V if npo Last Admin: 10/27/22 20:30 Dose: 4 mg Ondansetron HCl (Ondansetron 2 Mg/Ml Sdv 2 Ml) 4 mg IVP Q2M PRN PRN Reason: NAUSEA Pantoprazole Sodium (Pantoprazole 40 Mg Sdv) 40 mg IVP Q24H [facility] Last Admin: 10/27/22 13:31 Dose: 40 mg Prednisone (Prednisone 20 Mg Tablet) 40 mg PO DAILY [facility] Last Admin: 10/27/22 13:31 Dose: 40 mg Ropinirole HCl (Ropinirole 1 Mg Tablet) 1 mg PO BEDTIME [facility] Last Admin: 10/26/22 20:08 Dose: 1 mg Sevelamer Carbonate (Sevelamer 800 Mg Tablet) 800 mg PO TIDWM [facility] Last Admin: 10/27/22 17:38 Dose: 800 mg Vitals/I&O/Wt Last Vital Signs Temp 97.6 F 10/27/22 20:20 Pulse 79 10/27/22 20:24 Resp 16 10/27/22 20:24 BP 152/81 10/27/22 20:20 Pulse Ox 91 10/27/22 20:24 O2 Del Method Room Air 10/27/22 20:24 O2 Flow Rate 2 10/27/22 15:24 FiO2 2 10/25/22 15:28 10/27/22 10/27/22 10/27/22 06:59 14:59 22:59 Intake Total 50 / 1175.675 56.75 / 56.75 240 / 296.75 Balance 50 / -552.325 56.75 / 56.75 240 / 296.75 Weight last 48 hrs Weight 69 lb 14.185 oz Physical Exam Narrative: GENERAL: The patient is alert and oriented times three. Not in any acute distress. Slightly tachypneic. Generalized wasting, appears cachectic. Multiple ecchymotic areas in the upper and lower extremities with healed ulcers HEENT: Mild pallor, no icterus or lymphadenopathy.Oral cavity: There are no mucous membrane lesions. NECK: Trachea appears to be central. No masses noted. No JVD or thyromegaly appreciated. RESPIRATORY: Breath sounds are bilaterally with a diminished intensity of breath sounds at bases. Scattered coarse crackles and occasional expiratory wheezings. BREASTS: Deferred. HEART: The heart sounds are normal. No S3 or S4. Systolic murmur grade 3 or 6 in the left sternal border. No diastolic murmurs. No pericardial rub ABDOMEN: No vessel pulsations or distention. No tenderness. No organomegaly appreciated. Bowel sounds are normally heard. : Deferred. RECTAL: Deferred. LYMPHATIC: No lymphadenopathy noted in the neck. EXTREMITIES: Extreme wasting. Multiple ecchymotic areas in the upper and lower extremities. Most of these are healed. Multiple healed ulcerations in the extremities. The right calf area is bandaged with some bleeding through the bandage MUSCULOSKELETAL: No acute joint deformities or swelling SKIN: Healed ulcerations and ecchymosis as mentioned above NEUROPSYCHIATRIC: The patient is alert and oriented x3. Chronically ill looking and lethargic Urinary Catheter Management: Martins: Cath Placed During This Visit: yes, but has since been removed by the nurse Reason for Continuing Indwelling Catheter: Decision to DC Catheter Urinary Catheter Date of Insertion: 10/19/22 Urinary Catheter Time of Insertion: 17:31 Date Urinary Catheter Removed: 10/23/22 Time Urinary Catheter Discontinued: 18:00 Data 10/27/22 05:54 10/27/22 05:54 Other Labs: Laboratory Last Values WBC 13.0 10^3/uL (4.0-10.0) H 10/27/22 05:54 RBC 3.21 10^6/uL (4.1-5.3) L 10/27/22 05:54 Hgb 10.2 g/dL (11.5-15.3) L 10/27/22 05:54 Hct 34.1 % (37.0-47.0) L 10/27/22 05:54 MCV 106.2 fl (81-99) H 10/27/22 05:54 MCH 31.8 pg (28.0-34.0) 10/27/22 05:54 MCHC 29.9 g/dL (30.0-36.0) L 10/27/22 05:54 RDW 17.3 % (12.1-15.1) H 10/27/22 05:54 Plt Count 125 10^3/cmm (130-400) L 10/27/22 05:54 MPV 10.3 fL (7.4-10.4) 10/27/22 05:54 Neut % (Auto) 78.2 % 10/27/22 05:54 Lymph % (Auto) 15.4 % 10/27/22 05:54 Milam % (Auto) 5.1 % 10/27/22 05:54 Eos % (Auto) 0.0 % 10/27/22 05:54 Baso % (Auto) 0.1 % 10/27/22 05:54 Neut # (Auto) 10.16 10^3/uL (1.8-7.7) H 10/27/22 05:54 Lymph # (Auto) 2.0 10^3/uL (0.8-4.8) 10/27/22 05:54 Milam # (Auto) 0.7 10^3/uL (0.2-0.9) 10/27/22 05:54 Eos # (Auto) 0.0 10^3/uL (0.0-0.8) 10/27/22 05:54 Baso # (Auto) 0.0 10^3/uL (0.0-0.1) 10/27/22 05:54 Nucleated RBC % (auto) 0 % 10/27/22 05:54 Nucleated RBCs # 0.0 /100WBC 10/27/22 05:54 D-Dimer 8.60 ug/mIFEU (0-0.59) H 10/19/22 14:45 Specimen Type Arterial 10/19/22 09:55 Sample Site Radial, right 10/19/22 09:55 ABG pH 7.27 (7.35-7.45) L 10/19/22 09:55 ABG pCO2 51.4 mmHg (35-45) H 10/19/22 09:55 ABG pO2 72.4 mmHg (80.0-100.0) L 10/19/22 09:55 ABG HCO3 23.5 mmol/L (22-26) 10/19/22 09:55 ABG O2 Saturation 91.6 10/19/22 09:55 ABG Base Excess -3.8 mmol/L (-2.0-2.0) L 10/19/22 09:55 Roly Test Pos 10/19/22 09:55 A-a O2 Gradient 12.4 mmHg (5-10) H 10/19/22 09:55 Hematocrit 36.4 % (37-47) L 10/19/22 09:55 Hgb O2 Saturation 90.4 % (95-100) L 10/19/22 09:55 Carboxyhemoglobin 0.3 %THgb (0.4-20.1) L 10/19/22 09:55 Methemoglobin 0.9 % (0.4-1.5) 10/19/22 09:55 Total Hemoglobin 11.9 g/dL (12-16) L 10/19/22 09:55 Sodium 140.0 mmol/L (131-143) 10/19/22 09:55 Potassium 6.9 mmol/L (3.5-5.0) H 10/19/22 09:55 Glucose 91.0 mg/dL (70-115) 10/19/22 09:55 Ionized Calcium 1.3 mmol/L (1.1-1.4) 10/19/22 09:55 O2 Delivery Device Nc 10/19/22 09:55 O2 Liters/Min 3.0 % 10/19/22 09:55 FiO2 32.0 % 10/19/22 09:55 Manufacturing Manager ID Monro 10/19/22 09:55 Sodium 139 mmol/L (136-145) 10/27/22 05:54 Potassium 4.5 mmol/L (3.5-5.1) 10/27/22 05:54 Chloride 98 mmol/L (98-107) 10/27/22 05:54 Carbon Dioxide 26 mmol/L (22-29) 10/27/22 05:54 Anion Gap 19.5 (5-19) H 10/27/22 05:54 BUN 47 mg/dL (8-23) H 10/27/22 05:54 Creatinine 3.7 mg/dL (0.5-0.9) H 10/27/22 05:54 GFR Calculation 12.3 mL/min (90-130) L 10/27/22 05:54 Glucose 90 mg/dL (65-115) 10/27/22 05:54 Calculated Osmolality 300 mOsm/kg (285-295) H 10/27/22 05:54 Lactic Acid 1.1 mmol/L (0.5-2.2) 10/19/22 14:34 Calcium 8.8 mg/dL (8.5-10.5) 10/27/22 05:54 Phosphorus 5.2 mg/dL (2.5-4.5) H 10/27/22 05:54 Magnesium 2.3 mg/dL (1.7-2.3) 10/27/22 05:54 Total Bilirubin 0.4 mg/dL (0.15-1.2) 10/27/22 05:54 AST 17 U/L (0-32) 10/27/22 05:54 ALT 17 U/L (0-33) 10/27/22 05:54 Alkaline Phosphatase 60 U/L (35-105) 10/27/22 05:54 Troponin T Baseline 275 ng/L (0-10) H* 10/19/22 10:01 Troponin T 120 Minute 275.5 ng/L (0-10) H 10/19/22 11:57 Delta Troponin T 0.5 ABS# (0-10) 10/19/22 11:57 Troponin T Hi Sens 6Hr 268.2 ng/L (0-10) H 10/19/22 16:06 Troponin T Hi Sens 6Hr Delta -6.8 ng/L (0-12) L 10/19/22 16:06 C-Reactive Protein 4.6 mg/L (0.0-4.9) 10/23/22 06:02 NT-Pro-B Natriuret Pep 44470 pg/mL (0-125) H 10/25/22 04:51 Total Protein 6.4 g/dL (6.6-8.7) L 10/27/22 05:54 Albumin 4.9 g/dL (3.5-5.2) 10/27/22 05:54 Globulin 1.5 g/dL (1.3-4.6) 10/27/22 05:54 Carcinoembryonic Ag 3.0 ng/mL (0.0-4.7) 10/19/22 14:34 CA 19-9 Antigen 33.67 U/mL (0-35) 10/19/22 14:34 Procalcitonin 0.89 ng/mL (0-0.5) H 10/23/22 06:02 TSH 6.24 uIU/mL (0.27-4.20) H 10/23/22 06:02 Free T4 0.60 ng/dL (0.82-1.77) L 10/23/22 06:02 Free T3 1.1 PG/ML (2.0-4.4) L 10/23/22 06:02 PTH Intact 153.1 pg/mL (15-65) H 10/26/22 04:55 Calcium (PTH Intact) 8.8 mg/dL (8.5-10.5) 10/26/22 04:55 Nasal Influ A H1 2008 PCR Not detected (NOT DETECT) 10/23/22 03:50 Adenovirus (PCR) Not detected (NOT DETECT) 10/23/22 03:50 C. pneumoniae DNA (PCR) Not detected (NOT DETECT) 10/23/22 03:50 Coronavirus 229E (PCR) Not detected (NOT DETECT) 10/23/22 03:50 Hep Bs Antigen Non-reactive (Nonreactive) 10/19/22 10:01 Hep Bs Antibody 70.4 (11.5-1000) 10/19/22 10:01 Hep B Core Total Ab Non-reactive (Nonreactive) 10/19/22 10:01 Hepatitis C Antibody Non-reactive (Nonreactive) 10/19/22 10:01 Human Metapneumovir PCR Not detected (NOT DETECT) 10/23/22 03:50 Influenza A (H1) PCR Not detected (NOT DETECT) 10/23/22 03:50 Influenza A (H3) PCR Not detected (NOT DETECT) 10/23/22 03:50 Influenza Type A (PCR) Not detected (NOT DETECT) 10/23/22 03:50 Influenza Type B (PCR) Not detected (NOT DETECT) 10/23/22 03:50 M. pneumoniae (PCR) Not detected (NOT DETECT) 10/23/22 03:50 Parainfluenza 1 (PCR) Not detected (NOT DETECT) 10/23/22 03:50 Parainfluenza 2 (PCR) Not detected (NOT DETECT) 10/23/22 03:50 Parainfluenza 3 (PCR) Not detected (NOT DETECT) 10/23/22 03:50 Parainfluenza 4 (PCR) Not detected (NOT DETECT) 10/23/22 03:50 RSV Type A (PCR) Not detected (NOT DETECT) 10/23/22 03:50 RSV Type B (PCR) Not detected (NOT DETECT) 10/23/22 03:50 Entero/Rhino (PCR) Not detected (NOT DETECT) 10/23/22 03:50 SARS-CoV-2 (PCR) Not detected (NOT DETECT) 10/23/22 03:50 A&P Assessment and plan (1) Acute and chronic respiratory failure: The respiratory status seems to be improving. Currently remaining afebrile. Still has significant wheezing. (2) Elevated troponin: Most likely related to demand ischemia. The results of the Myocardial perfusion imaging was discussed with the patient in detail. At this point, she may not require any further investigations, from a cardiac standpoint. (3) Acute on chronic diastolic (congestive) heart failure: Careful diuresis/hemodialysis would be appropriate. 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
--- NOTE | 2022-10-27 20:56 | NMCV_ITS ---
NM maricarmen perf SPECT r/s* [id number] Hali James Age: 67 Gender: F : 1955 Exam Date: 10/27/2022 10:43 Ordering Phys: Guillermo Culver MD ([email or web address]) Technologist: JENNIFER Mcguire Exam Location: [facility] Indications: CHEST PAIN STRESS TEST Please see separate stress test report in [facility] for full findings IMAGE PROTOCOL Rest/Stress 1 Dobutamine Day Radiopharmaceutical Dose (mCi) Administration Site Administered by Rest: Tc-99m 10.6 IV JENNIFER Zhu Sestamibi Stress:Tc-99m 32.1 IV JENNIFER Zhu Sestamibi Rest: 27-Oct-2022 60 Discovery 630 Stress: 27-Oct-2022 30 Discovery 630 Radiopharmaceutical was injected at 81 % maximum heart rate. Supine position only as patient was unable to lay prone. SPECT RESULTS Technical Quality: Excellent Raw Data Analysis: Normal Image Corrections: No attenuation or motion correction applied Summed Stress Score: 0 Summed Rest Score: 0 Summed Difference Score: 0 PERFUSION FINDINGS Uniform myocardial tracer uptake with no significant perfusion abnormalities. FUNCTIONAL RESULTS (calculated via Gated SPECT) Stress Image LV EF (%): 62 Stress EDV (mL):55 TID: 0.77 Stress ESV (mL):21 FUNCTIONAL FINDINGS: Segmental wall motion analysis revealing no gross wall motion abnormalities IMPRESSIONS 1. Unremarkable Myocardial perfusion imaging 2. Normal LV ejection fraction of 62%. 3. LV wall motion analysis revealing no gross wall motion abnormalities. 4. Normal LV volume Low probability for coronary ischemia, based on the above findings Dr Guillermo Culver MD FACC (Electronically Signed) Final Date: 27 October 2022 17:24 S
[2022-10-27] MEDS: LORazepam 2 mg/mL INJ 1 mL 0.5 MG IVP (21:05)
[2022-10-27] MEDS: metoprolol succinate ER (24 HR) 50 mg Tablet PO (21:54)
[2022-10-27] MEDS: ropinirole 1 mg Tablet PO (21:54)
[2022-10-28] VITALS (17 sets, daily range): BP systolic 103–160; BP diastolic 69–89; PULSE 73–105; RESP 16–18; TEMP 36.4–37; O2SAT 91–99
[2022-10-28] MEDS: ondansetron 2 mg/ML SDV 2 mL 4 MG IVP (03:30)
[2022-10-28] MEDS: morphine 4 mg/mL SDV 1 mL 1 MG IVP ×3 (03:30→20:44)
[2022-10-28] MEDS: atorvastatin 40 mg Tablet PO (05:25)
[2022-10-28] MEDS: levothyroxine 75 mcg Tablet PO (05:26)
[2022-10-28] MEDS: metoclopramide 5 mg/mL SDV 2 mL IVP (05:26)
[2022-10-28 05:33] LABS: Basophils % 0.2 %; Hematocrit 34.6 % (37.0-47.0); Lymphocytes # 2.2 10^3/uL (0.8-4.8); Lymphocytes % 16.8 %; Mean Corpuscular HGB Conc 28.9 g/dL (30.0-36.0); Mean Corpuscular Hemoglobin 30.4 pg (28.0-34.0); Mean Corpuscular Volume 105.2 fl (81-99); Mean Platelet Volume 10.2 fL (7.4-10.4); Monocytes # 0.8 10^3/uL (0.2-0.9); Monocytes % 6.1 %; Neutrophils % 76.1 %; Nucleated Red Blood Cells % 0 %; Platelet Count 127 10^3/cmm (130-400); Red Blood Count 3.29 10^6/uL (4.1-5.3); Red Cell Distribution Width 17.1 % (12.1-15.1)
[2022-10-28 05:44] LABS: Alanine Aminotransferase 19 U/L (0-33); Albumin Level 4.5 g/dL (3.5-5.2); Alkaline Phosphatase 63 U/L (35-105); Anion Gap 27.2 (5-19); Aspartate Amino Transferase 15 U/L (0-32); Blood Urea Nitrogen 76 mg/dL (8-23); Calcium 8.8 mg/dL (8.5-10.5); Carbon Dioxide 20 mmol/L (22-29); Chloride 95 mmol/L (98-107); Glomerular Filtration Rate 7.6 mL/min (90-130); Glucose 103 mg/dL (65-115); Magnesium 2.6 mg/dL (1.7-2.3); Osmolality Calculated 307 mOsm/kg (285-295); Phosphorus 7.5 mg/dL (2.5-4.5); Potassium 5.2 mmol/L (3.5-5.1); Sodium 137 mmol/L (136-145); Total Bilirubin 0.3 mg/dL (0.15-1.2); Total Protein 6.5 g/dL (6.6-8.7)
--- NOTE | 2022-10-28 08:47 | PM.PN ---
Subjective Subjective: seen on dialysis. bp dropped this am, improved with albumin. she has abd pain. is weak. no sob at rest Medications: Reviewed: Yes Medication Review Details: Current Medications Acetaminophen (Acetaminophen 325 Mg Tablet) 650 mg PO Q6H PRN PRN Reason: Mild/Mod Pain Or Temp >/= 101 Albuterol/Ipratropium (Ipratropium-Albuterol 3 Ml Neb) 3 ml INHALATION QID.RESPIRATORY COUNTS INCLUDE 234 BEDS AT THE [facility] Last Admin: 10/28/22 08:06 Dose: Not Given Aspirin (Aspirin 81 Mg Ec Tablet) 81 mg PO DAILY@0830 COUNTS INCLUDE 234 BEDS AT THE [facility] Last Admin: 10/27/22 13:13 Dose: Not Given Atorvastatin Calcium (Atorvastatin 40 Mg Tablet) 40 mg PO QAM COUNTS INCLUDE 234 BEDS AT THE [facility] Last Admin: 10/28/22 05:25 Dose: 40 mg Budesonide (Budesonide 0.5 Mg/2 Ml Neb) 0.5 mg INHALATION BID.RESPIRATORY COUNTS INCLUDE 234 BEDS AT THE [facility] Last Admin: 10/28/22 08:06 Dose: Not Given Buspirone HCl (Buspirone 10 Mg Tablet) 15 mg PO BID COUNTS INCLUDE 234 BEDS AT THE [facility] Last Admin: 10/27/22 17:36 Dose: 15 mg Citalopram Hydrobromide (Citalopram 20 Mg Tablet) 40 mg PO DAILY@0830 COUNTS INCLUDE 234 BEDS AT THE [facility] Last Admin: 10/27/22 13:29 Dose: 40 mg Enoxaparin Sodium (Enoxaparin 30 Mg/0.3 Ml Syringe) 30 mg SUBCUT Q24H COUNTS INCLUDE 234 BEDS AT THE [facility] Last Admin: 10/27/22 13:23 Dose: 30 mg Heparin Sodium (Porcine) (Heparin, Porcine 1,000 Unit/Ml Inj 10 Ml) 1,000 unit HE PRN PRN PRN Reason: HEMODIALYSIS USE ONLY Last Admin: 10/25/22 15:48 Dose: 1,000 unit Albumin Human (Albumin) 12.5 gm in 50 mls @ 60 mls/hr IV PRN PRN PRN Reason: Hypotension and/or symptomatic Last Infusion: 10/25/22 16:41 Dose: Infused Sodium Chloride (Sodium Chloride 0.9%) 1,000 mls @ 0 mls/hr IV .Q0M PRN PRN Reason: hypotension or symptomatic Dobutamine HCl 200 mg/ Sodium (Chloride) 50 mls @ 0 mls/hr IV .Q0M PRN; Protocol PRN Reason: per protocol Last Titration: 10/27/22 12:05 Dose: Infused Isosorbide Mononitrate (Isosorbide Mononitrate Er 60 Mg Tablet) 30 mg PO BID COUNTS INCLUDE 234 BEDS AT THE [facility] Last Admin: 10/27/22 17:36 Dose: 30 mg Levothyroxine Sodium (Levothyroxine 75 Mcg Tablet) 75 mcg PO QAM COUNTS INCLUDE 234 BEDS AT THE [facility] Last Admin: 10/28/22 05:26 Dose: 75 mcg Liothyronine Sodium (Liothyronine 5 Mcg Tablet) 10 mcg PO DAILY COUNTS INCLUDE 234 BEDS AT THE [facility] Last Admin: 10/27/22 13:29 Dose: 10 mcg Lorazepam (Lorazepam 2 Mg/Ml Inj 1 Ml) 0.5 mg IVP Q8H PRN PRN Reason: ANXIETY Last Admin: 10/27/22 21:05 Dose: 0.5 mg Metoclopramide HCl (Metoclopramide 5 Mg/Ml Sdv 2 Ml) 5 mg IVP Q4H PRN PRN Reason: NAUSEA AND VOMITING Last Admin: 10/28/22 05:26 Dose: 5 mg Metoprolol Succinate (Metoprolol Succinate Er (24 Hr) 50 Mg Tablet) 50 mg PO BID@0830,2100 COUNTS INCLUDE 234 BEDS AT THE [facility] Last Admin: 10/27/22 21:54 Dose: 50 mg Metoprolol Tartrate (Metoprolol Tartrate 1 Mg/1 Ml Sdv 5 Ml) 5 mg IV PRN PRN PRN Reason: HR Last Admin: 10/27/22 12:06 Dose: 5 mg Midodrine (Midodrine 5 Mg Tablet) 5 mg PO DAILY PRN PRN Reason: on day of dialysis for SBP less than 120 mmhg Montelukast Sodium (Montelukast Sodium 10 Mg Tablet) 10 mg PO DAILY@0830 COUNTS INCLUDE 234 BEDS AT THE [facility] Last Admin: 10/27/22 13:54 Dose: Not Given Morphine Sulfate (Morphine 4 Mg/Ml Sdv 1 Ml) 1 mg IVP Q4H PRN PRN Reason: SEVERE PAIN Last Admin: 10/28/22 03:30 Dose: 1 mg Nitroglycerin (Nitroglycerin 0.4 Mg Sublingual Tablet) 0.4 mg SUBLINGUAL Q5M PRN PRN Reason: Chest Pain Non-Formulary Medication (Vit B,W-Nu-Uqwq-Selen-Vit D3-E [Renaplex-D]) 1 tab PO QPM COUNTS INCLUDE 234 BEDS AT THE [facility] Last Admin: 10/27/22 17:37 Dose: Not Given Ondansetron HCl (Ondansetron 2 Mg/Ml Sdv 2 Ml) 4 mg IVP Q8H PRN PRN Reason: vomiting, or N/V if npo Last Admin: 10/28/22 03:30 Dose: 4 mg Ondansetron HCl (Ondansetron 2 Mg/Ml Sdv 2 Ml) 4 mg IVP Q2M PRN PRN Reason: NAUSEA Pantoprazole Sodium (Pantoprazole 40 Mg Sdv) 40 mg IVP Q24H COUNTS INCLUDE 234 BEDS AT THE [facility] Last Admin: 10/27/22 13:31 Dose: 40 mg Prednisone (Prednisone 20 Mg Tablet) 40 mg PO DAILY COUNTS INCLUDE 234 BEDS AT THE [facility] Last Admin: 10/27/22 13:31 Dose: 40 mg Ropinirole HCl (Ropinirole 1 Mg Tablet) 1 mg PO BEDTIME COUNTS INCLUDE 234 BEDS AT THE [facility] Last Admin: 10/27/22 21:54 Dose: 1 mg Sevelamer Carbonate (Sevelamer 800 Mg Tablet) 800 mg PO TIDWM COUNTS INCLUDE 234 BEDS AT THE [facility] Last Admin: 10/27/22 17:38 Dose: 800 mg Vitals/I&O/Wt Last Vital Signs Temp 98.4 F 10/28/22 07:03 Pulse 93 10/28/22 08:00 Resp 16 10/28/22 07:03 BP 103/69 10/28/22 08:00 Pulse Ox 97 10/28/22 03:30 O2 Del Method Room Air 10/27/22 20:24 O2 Flow Rate 2 10/27/22 15:24 FiO2 2 10/25/22 15:28 10/27/22 10/28/22 10/28/22 22:59 06:59 14:59 Intake Total 360 / 416.75 360 / 776.75 Output Total 0 / 0 Balance 360 / 416.75 360 / 776.75 Weight last 48 hrs Weight 31.7 kg Physical Exam Narrative: seen and examined w/ RN - comfortable in bed, NARD, on dialysis vs noted heent- ncat neck supple lungs -left clear, right wheezes, basal dullness heart reg abd soft, left sided tender, + bs ext 1+ b/l leg edema rt IJ permacath neuro- a,a, o x 3 Urinary Catheter Management: Martins: Cath Placed During This Visit: yes, but has since been removed by the nurse Reason for Continuing Indwelling Catheter: Decision to DC Catheter Urinary Catheter Date of Insertion: 10/19/22 Urinary Catheter Time of Insertion: 17:31 Date Urinary Catheter Removed: 10/23/22 Time Urinary Catheter Discontinued: 18:00 Data 10/28/22 04:47 10/28/22 04:47 A&P Assessment and plan (1) ESRD on dialysis: 67 yr old female ESRD, copd, HFpEF, type II NSTEMI, moderate MR 1. ESRD - HD now 3.5 hrs, 2k, remove 1.5 l as tolerated via permacath 2. anemia- iron studies noted- high iron sat and ferritin in September. -give epo 3. SOB/ HFpEF/ [place]D-= [place] [address] [place] [address]- repeat bnp, d/c bp meds. remove fluids on hd. continue ARB 4. abd pain/ chelly-GB mass- for CCY and further evaluation later in october by surgery 5. hypothyroidism on levothyroxine seen and examined w/ RN= telehealth visit time spent 30 min Plan as above Attestations Medical Necessity Statement*: esrd, abd pain, anemia Time Spent in Patient Care: 16 - 35 minutes (>than 50% of time spent in counselling and/or direct pt care on unit). Coding Level of Care Code Acute Code for Chg Fwd Diagnoses ESRD on dialysis N18.6; Z99.2
[2022-10-28] MEDS: predniSONE 20 mg Tablet 40 MG PO (11:13)
[2022-10-28] MEDS: liothyronine 5 mcg Tablet 10 MCG PO (11:13)
[2022-10-28] MEDS: citalopram 20 mg Tablet 40 MG PO (11:15)
[2022-10-28] MEDS: montelukast sodium 10 mg Tablet PO (11:15)
[2022-10-28] MEDS: sevelamer 800 mg Tablet PO ×2 (11:15→18:10)
[2022-10-28] MEDS: BuSPIRONE 10 mg Tablet 15 MG PO ×2 (11:16→18:10)
[2022-10-28] MEDS: aspirin 81 mg EC Tablet PO (11:16)
[2022-10-28] MEDS: metoprolol succinate ER (24 HR) 50 mg Tablet PO ×2 (11:19→21:36)
--- NOTE | 2022-10-28 11:44 | PC.SOCIAL ---
IMM Updated Updated pt on IMM. No questions voiced. Provided pt a copy. Initialed, dated, & timed copy in chart.
[2022-10-28] MEDS: ipratropium-albuterol 3 mL Neb INHALATION ×3 (11:48→20:57)
--- NOTE | 2022-10-28 12:58 | P.PN_ITS ---
Subjective Subjective: No acute vents overnight. Today morning seen during dialysis. Patient finally having bowel movements. Concerned with diarrhea now. Has remained hemodynamically stable and afebrile. During dialysis states she is not feeling well as she is feeling congested. Remains on 2 L saturating more than 95%. Vitals/I&O/Wt Last Vital Signs Temp 97.6 F 10/28/22 12:00 Pulse 80 10/28/22 12:00 Resp 18 10/28/22 12:15 BP 136/80 10/28/22 12:00 Pulse Ox 97 10/28/22 12:15 O2 Del Method Nasal Cannula 10/28/22 11:47 O2 Flow Rate 2 10/28/22 11:47 FiO2 2 10/25/22 15:28 10/27/22 10/28/22 10/28/22 22:59 06:59 14:59 Intake Total 360 / 416.75 360 / 776.75 300 / 300 Output Total 0 / 0 1711 / 1711 Balance 360 / 416.75 360 / 776.75 -1411 / -1411 Weight last 48 hrs Weight 29.36 kg Weight 31.7 kg Physical Exam Narrative: General: No acute distress, AO x3, frail, chronically sick appearing, cachectic HEENT: PERRLA, pupils bilaterally equal and reactive Chest: Normal vesicular breath sounds, no added sounds, equal good air entry bilaterally CVS: S1-S2 regular, pansystolic murmur at apex radiating to anterior axillary line 2/6, no tachycardia, no gallops, no rubs Abdomen: Soft, nontender, no organomegaly, bowel sounds present Neuro: No focal deficits, no facial deformity, AO x3, power 5/5 in all limbs Skin: NARRATIVE SKIN EXAM: Patient has a superficial skin break, right lower extremity OTHER: Has peripheral wasting, muscle wasting temporal muscle wasting, muscle wasting of the legs, specifically of the thighs, over the arms, Urinary Catheter Management: Martins: Cath Placed During This Visit: yes, but has since been removed by the nurse Reason for Continuing Indwelling Catheter: Decision to DC Catheter Urinary Catheter Date of Insertion: 10/19/22 Urinary Catheter Time of Insertion: 17:31 Date Urinary Catheter Removed: 10/23/22 Time Urinary Catheter Discontinued: 18:00 Data 10/28/22 04:47 10/28/22 04:47 A&P Assessment and plan (1) Acute hyperkalemia: (2) End stage renal 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: (3) Acute and chronic respiratory failure: (4) Congestive heart failure: Qualifiers: Heart failure chronicity: acute on chronic Heart failure type: uns pecified Qualified Code(s): I50.9 - Heart failure, unspecified (5) COPD with acute exacerbation: (6) Healthcare-associated pneumonia: (7) Shortness of breath: (8) Chronic kidney disease with 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 due to type 2 diabetes mellitus: (9) Gallbladder anomaly: (10) Transaminitis: (11) Depression: (12) Physical deconditioning: (13) Muscle wasting: (14) Protein calorie malnutrition: (15) NSTEMI (non-ST elevated myocardial infarction): (16) Metabolic acidosis: (17) Anxiety: (18) Hypothyroidism: Qualifiers: Hypothyroidism type: acquired Qualified Code(s): E03.9 - Hypothyroidism, unspecified Plan Acute on chronic hypoxic hypercarbic respiratory failure: Most likely in setting of congestive heart failure from hypertensive urgency in setting of moderate mitral regurgitation, diastolic heart failure, community- acquired pneumonia and COPD exacerbation. Dialysis for congestive heart failure. Further adjustment of heart failure regimen medications. Goal blood pressure less than 140/90 mmHg with mean over 65. Continue to monitor blood pressures. Blood pressure is better controlled now. Continue with metoprolol 50 mg twice daily, Imdur 30 mg twice daily. Holding off on losartan given persistent hyperkalemia. We will try to add low-dose ARB if blood pressures tolerated well. Continue to monitor blood pressures and as antihypertensives are being adjusted. If needed can do midodrine 5 mg as needed on day of dialysis for systolic blood pressure of less than [address] chest results with concerning for left upper lobe pneumonia. Mul tiple recent hospitalization. MRSA negative. Sputum culture recently grew Pseudomonas. Last day of Zosyn 0 10/26. Finish 7-day course of antibiotics. For COPD exacerbation: Continue with DuoNebs every 6 hour, budesonide twice daily. Continue with oral prednisone 40 mg oral daily. We will plan to stop prednisone 40 mg in 5 days and switch to home dose of 5 mg of oral prednisone. Oxygen supplementation keeping saturation over 90%. Wean accordingly. End-stage renal disease on hemodialysis/acute hyperkalemia/metabolic acidosis: Metabolic acidosis and hyperkalemia in setting of missed dialysis. Resolved now. Appreciate nephrology recommendations. As per schedule. Holding off on losartan. Type II NSTEMI: Likely type II [place] though cannot rule out baseline ACS given elevated troponin for last 3 to 4 months. Troponin cycle appreciated. Recent echocardiogram showed EF of 60% with grade 1 diastolic dysfunction, moderate mitral regurgitation. Troponins recently have been trending up. Given recurrent admissions cannot rule out underlying CAD. Care discussed in detail with Dr. Culver. Patient does need further intervention for a possible CAD but given complicated history of AAA repair for now we will keep cardiac angiogram as a last resort. Appreciate dobutamine stress test result. Continue with aspirin 81 mg daily, atorvastatin 40 mg daily, metoprolol at c urrent dose. Appreciate recent A1c and lipid panel. Soft tissue mass inseparable from small portion of the gallbladder wall: Appreciate gallbladder ultrasound. Mild transaminitis. Plan for cholecystectomy later in October with Dr. Petit as an outpatient. Hypothyroidism: Elevated TSH with low T3. Levothyroxine increased to 75 mcg daily. Will need to repeat thyroid profile in 4 weeks. Protein calorie malnutrition, protein shakes Physical deconditioning Anorexia, malnourishment Goals of care, patient wants to be a full code agreeable to elective intubation if required Plan for the day: Plan for dialysis today. Continue with metoprolol tartrate 50 mg twice daily, Imdur 30 mg twice daily. Holding off on losartan. Dialysis as per nephrology. Can use midodrine 5 mg daily as needed on day of dialysis for systolic blood pressure of less than 110 mmHg. Has finished course of IV antibiotics for pneumonia. Fluid restriction to less than 1 L given BMI of 13. Dobutamine stress test echo negative. Continuing medical optimization for ACS. Continue to finish 5-day course of prednisone 40 mg and then transition to home dose of prednisone. Lovenox for DVT prophylax Protonix for GI prophylaxis Discussed the treatment plan in detail with patient. She is agreeable for dobutamine stress test. Discharge plan: Plan to discharge to home with possible home health once m edically stable. Most likely continued hospitalization for next 48 hours. Attestations Medical Necessity Statement*: Requires further hospitalization for management of hypoxic respiratory failure in setting of congestive heart failure, labile blood pressures, CAD in a patient with end-stage renal disease on hemodialysis. Diagnoses Acute hyperkalemia E87.5 End stage renal 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 N18.6; Z99.2 Acute and chronic respiratory failure J96.20 Congestive heart failure I50.9 Heart failure chronicity: acute on chronic Heart failure type: unspecified COPD with acute exacerbation J44.1 Healthcare-associated pneumonia J18.9 Shortness of breath R06.02 Chronic kidney disease with 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 due to type 2 diabetes mellitus E11.22; N18.6; Z99.2 Gallbladder anomaly Q44.1 Transaminitis R74.01 Depression F32.A Physical deconditioning R53.81 Muscle wasting M62.50 Protein calorie malnutrition E46 NSTEMI (non-ST elevated myocardial infarction) I21.4 Metabolic acidosis E87.20 Anxiety F41.9 Hypothyroidism E03.9 Hypothyroidism type: acquired
[2022-10-28] MEDS: calcium carbonate 500 mg Chew Tablet 1000 MG PO (13:34)
[2022-10-28] MEDS: enoxaparin 30 mg/0.3 mL Syringe SUBCUT (18:09)
[2022-10-28] MEDS: isosorbide mononitrate ER 60 mg Tablet 30 MG PO (18:10)
[2022-10-28] MEDS: LORazepam 2 mg/mL INJ 1 mL 0.5 MG IVP (20:45)
[2022-10-28] MEDS: budesonide 0.5 mg/2 mL Neb INHALATION (20:57)
[2022-10-28] MEDS: ropinirole 1 mg Tablet PO (21:36)
[2022-10-28] MEDS: nystatin 100,000 unit/mL UDC 5 mL 100000 UNIT PO (21:36)
[2022-10-28] MEDS: pantoprazole 40 mg SDV IVP (21:47)
[2022-10-29] VITALS (7 sets, daily range): BP systolic 124–145; BP diastolic 77–82; PULSE 69–83; RESP 16–18; TEMP 36.7; O2SAT 99–100
[2022-10-29 05:13] LABS: Basophils % 0.1 %; Hematocrit 28.5 % (37.0-47.0); Hemoglobin 8.3 g/dL (11.5-15.3); Lymphocytes # 2.8 10^3/uL (0.8-4.8); Mean Corpuscular HGB Conc 29.1 g/dL (30.0-36.0); Mean Corpuscular Hemoglobin 31.3 pg (28.0-34.0); Mean Corpuscular Volume 107.5 fl (81-99); Mean Platelet Volume 10.7 fL (7.4-10.4); Monocytes # 0.6 10^3/uL (0.2-0.9); Monocytes % 4.4 %; Neutrophils # 10.96 10^3/uL (1.8-7.7); Neutrophils % 75.9 %; Nucleated Red Blood Cells % 0 %; Platelet Count 116 10^3/cmm (130-400); Red Blood Count 2.65 10^6/uL (4.1-5.3); White Blood Count 14.4 10^3/uL (4.0-10.0)
[2022-10-29 05:42] LABS: Alanine Aminotransferase 16 U/L (0-33); Albumin Level 4.4 g/dL (3.5-5.2); Alkaline Phosphatase 79 U/L (35-105); Anion Gap 22.2 (5-19); Aspartate Amino Transferase 16 U/L (0-32); Blood Urea Nitrogen 40 mg/dL (8-23); Calcium 8.9 mg/dL (8.5-10.5); Carbon Dioxide 23 mmol/L (22-29); Chloride 96 mmol/L (98-107); Globulin 1.7 g/dL (1.3-4.6); Glomerular Filtration Rate 13.6 mL/min (90-130); Glucose 108 mg/dL (65-115); Magnesium 2.4 mg/dL (1.7-2.3); Osmolality Calculated 294 mOsm/kg (285-295); Potassium 4.2 mmol/L (3.5-5.1); Sodium 137 mmol/L (136-145); Total Bilirubin 0.4 mg/dL (0.15-1.2); Total Protein 6.1 g/dL (6.6-8.7)
[2022-10-29] MEDS: atorvastatin 40 mg Tablet PO (06:12)
[2022-10-29] MEDS: levothyroxine 75 mcg Tablet PO (06:12)
[2022-10-29] MEDS: morphine 4 mg/mL SDV 1 mL 1 MG IVP (06:28)
[2022-10-29] MEDS: LORazepam 2 mg/mL INJ 1 mL 0.5 MG IVP (06:29)
--- NOTE | 2022-10-29 09:39 | P.DS_ITS ---
Discharge Providers Date of Admission: 10/19/22 14:45 Date of Discharge: October 29, 2022 Attending Provider at Admission: Volodymyr Duran MD Attending Provider at Discharge: Mitch Smith MD Primary Care Provider: HERBERT Masters Diagnoses at Discharge Discharge Diagnosis (1) Acute hyperkalemia: Status: Acute (2) End stage renal 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: Status: Deleted (3) Acute and chronic respiratory failure: Status: Acute (4) Congestive heart failure: Status: Acute Qualifiers: Heart failure chronicity: acute on chronic Heart failure type: unspecified Qualified Code(s): I50.9 - Heart failure, unspecified (5) COPD with acute exacerbation: Status: Acute (6) Healthcare-associated pneumonia: Status: Acute (7) Shortness of breath: Status: Acute (8) Chronic kidney disease with 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 due to type 2 diabetes mellitus: Status: Acute (9) Gallbladder anomaly: Status: Acute (10) Transaminitis: Status: Acute (11) Depression: Status: Acute (12) Physical deconditioning: Status: Acute (13) Muscle wasting: Status: Acute (14) Protein calorie malnutrition: Status: Acute (15) NSTEMI (non-ST elevated myocardial infarction): Status: Acute (16) Metabolic acidosis: Status: Acute (17) Anxiety: Status: Acute (18) Hypothyroidism: Status: Acute Qualifiers: Hypothyroidism type: acquired Qualified Code(s): E03.9 - Hypothyroidism, unspecified Reason for Visit Reason for Visit: SOB/ LOW O2 SATS Brief History: Hali James is a 67 year old female With a past medical history of chronic respiratory failure with hypercapnia, COPD, end-stage renal 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, congestive heart failure, protein calorie malnutrition, physical deconditioning, muscle wasting, malnourishment, anemia, history of soft tissue mass inseparable from small portion of the gallbladder wall, recent hospitalization for pneumonia, who presents to [facility] due to increased shortness of breath.? Patient tells me that she has been short of breath for the last few days, no fevers, no chills, she is on 5 L at home, she has been more short of breath with minimal exertion, no chest pain, but does have significant pleurisy, around the left lower chest wall, she tells me it hurts whenever she takes a deep breath in, when EMS arrived she was satting at 91%, tripoding, received cass athing treatments, she was given several breathing treatments, now she can speak a sentence, without feeling short of breath, has decreased lung sounds bilaterally, no intercostal retractions no suprasternal retractions, does have nasal flaring she for hyperkalemia has received insulin, D50, calcium. Hospital Course Hospital Course patient was admitted to the ICU for further evaluation of hypoxic/hypercapnic respiratory failure secondary to healthcare associated pneumonia, COPD exacerbation and diastolic heart failure along with hyperkalemia, metabolic acidosis and concerns for type II DC. He was started on broad-spectrum antibiotics, inhalation treatment and IV steroids. For diastolic heart failure she received extra session of dialysis. She improved gradually and then was transferred to the floors. During hospitalization she was found to have borderline blood pressures for which her outpatient antihypertensives were adjusted. Given multiple admissions recently for respiratory failure with concerns of non-ST elevation DC as repeated causes given elevated troponin lately cardiology was consulted and she underwent dobutamine stress test which was reported nonischemic. Gradually she improved and has been on her baseline oxygen supplementation for last 48 hours. Her blood pressures have been stable for the last 72 hours. She has been discharged in hemodynamically stable condition with advised to follow-up with a primary care provider within next 2 to 3 days as an outpatient. Home health has been arranged. She is not to take her losartan anymore. Metoprolol succinate has been changed to tartrate 50 mg twice daily. Dose of Imdur has been changed to 30 mg twice daily. She can take midodrine 5 mg daily as needed on the day of dialysis for systolic blood pressure of less than 120 mmHg. Physical Exam Narrative: General: No acute distress, AO x3, frail, chronically sick appearing, cachectic HEENT: PERRLA, pupils bilaterally equal and reactive Chest: Normal vesicular breath sounds, no added sounds, equal good air entry bilaterally CVS: S1-S2 regular, pansystolic murmur at apex radiating to anterior axillary line 2/6, no tachycardia, no gallops, no rubs Abdomen: Soft, nontender, no organomegaly, bowel sounds present Neuro: No focal deficits, no facial deformity, AO x3, power 5/5 in all limbs Skin: NARRATIVE SKIN EXAM: Patient has a superficial skin break, right lower extremity OTHER: Has peripheral wasting, muscle wasting temporal muscle wasting, muscle wasting of the legs, specifically of the thighs, over the arms, Urinary Catheter Management: Martins: Cath Placed During This Visit: yes, but has since been removed by the nurse Reason for Continuing Indwelling Catheter: Decision to DC Catheter Urinary Catheter Date of Insertion: 10/19/22 Urinary Catheter Time of Insertion: 17:31 Date Urinary Catheter Removed: 10/23/22 Time Urinary Catheter Discontinued: 18:00 Discharge Data Studies Completed and Pending Completed Studies During Hospitalization Category Date Time Status CT angio chest PE protcl [id number] Stat Cat Scan 10/19/22 14:41 Completed Cardiac Stress Test MIBI [Sestamibi Stress Test Request Exams 10/26/22 20:54 Draft ] Routine XR chest 1V portable [id number] Stat Exams 10/19/22 09:44 Completed NM maricarmen perf SPECT r/s* [id number] Routine Nuc Med 10/27/22 20:56 Completed US gall bladder [id number] Routine Ultrasound 10/20/22 08:35 Completed Pending at discharge Category Date Time Status Complete Blood Count w/Auto AM LABS Lab 10/30/22 04:00 Ordered Complete Blood Count w/Auto AM LABS Lab 10/31/22 04:00 Ordered Comprehensive Metabolic Panel AM LABS Lab 10/30/22 04:00 Ordered Comprehensive Metabolic Panel AM LABS Lab 10/31/22 04:00 Ordered Hemoglobin and Hematocrit Routine Lab 10/29/22 09:37 Ordered Magnesium AM LABS Lab 10/30/22 04:00 Ordered Magnesium AM LABS Lab 10/31/22 04:00 Ordered Sputum Culture and Gram Stain Stat Lab 10/19/22 14:24 Uncollected Urinalysis Routine Lab 10/19/22 15:57 Uncollected Radiology Impressions Chest X-Ray 10/19/22 09:44 IMPRESSION: Stable chest. No active disease. Chest CTA 10/19/22 14:41 IMPRESSION: 1. No evidence for pulmonary embolus. 2. Moderate chronic emphysematous changes. 3. Small amount of patchy hazy infiltrate in the LEFT upper lobe anteriorly likely infectious or inflammatory. 4. No significant pleural fluid. 5. Partially visualized aortic endograft appear similar to the prior studies. Gallbladder Ultrasound 10/20/22 08:35 IMPRESSION: 1. Abnormal gallbladder. Nonshadowing soft tissue density inseparable from a small portion of the gallbladder measuring 2.5 x 1.7 x 0.8 cm. Differential includes polyp, tumefactive sludge and neoplasm. MR may be able to differentiate between these possibilities. 2. Moderate atrophy RIGHT kidney and severe atrophy LEFT kidney. 3. RIGHT pleural effusion. Microbiology 10/25/22 16:45 Nose MRSA Culture - Final 10/19/22 22:28 Blood Blood Culture - Final NO GROWTH AFTER 5 DAYS 10/19/22 17:27 Blood Blood Culture - Final NO GROWTH AFTER 5 DAYS Laboratory Results WBC 14.4 10^3/uL (4.0-10.0) H 10/29/22 04:38 RBC 2.65 10^6/uL (4.1-5.3) L 10/29/22 04:38 Hgb 8.3 g/dL (11.5-15.3) L 10/29/22 04:38 Hct 28.5 % (37.0-47.0) L 10/29/22 04:38 MCV 107.5 fl (81-99) H 10/29/22 04:38 MCH 31.3 pg (28.0-34.0) 10/29/22 04:38 MCHC 29.1 g/dL (30.0-36.0) L 10/29/22 04:38 RDW 17.0 % (12.1-15.1) H 10/29/22 04:38 Plt Count 116 10^3/cmm (130-400) L 10/29/22 04:38 MPV 10.7 fL (7.4-10.4) H 10/29/22 04:38 Neut % (Auto) 75.9 % 10/29/22 04:38 Lymph % (Auto) 19.0 % 10/29/22 04:38 Ford % (Auto) 4.4 % 10/29/22 04:38 Eos % (Auto) 0.0 % 10/29/22 04:38 Baso % (Auto) 0.1 % 10/29/22 04:38 Neut # (Auto) 10.96 10^3/uL (1.8-7.7) H 10/29/22 04:38 Lymph # (Auto) 2.8 10^3/uL (0.8-4.8) 10/29/22 04:38 Ford # (Auto) 0.6 10^3/uL (0.2-0.9) 10/29/22 04:38 Eos # (Auto) 0.0 10^3/uL (0.0-0.8) 10/29/22 04:38 Baso # (Auto) 0.0 10^3/uL (0.0-0.1) 10/29/22 04:38 Nucleated RBC % (auto) 0 % 10/29/22 04:38 Nucleated RBCs # 0.0 /100WBC 10/29/22 04:38 D-Dimer 8.60 ug/mIFEU (0-0.59) H 10/19/22 14:45 Specimen Type Arterial 10/19/22 09:55 Sample Site Radial, right 10/19/22 09:55 ABG pH 7.27 (7.35-7.45) L 10/19/22 09:55 ABG pCO2 51.4 mmHg (35-45) H 10/19/22 09:55 ABG pO2 72.4 mmHg (80.0-100.0) L 10/19/22 09:55 ABG HCO3 23.5 mmol/L (22-26) 10/19/22 09:55 ABG O2 Saturation 91.6 10/19/22 09:55 ABG Base Excess -3.8 mmol/L (-2.0-2.0) L 10/19/22 09:55 Roly Test Pos 10/19/22 09:55 A-a O2 Gradient 12.4 mmHg (5-10) H 10/19/22 09:55 Hematocrit 36.4 % (37-47) L 10/19/22 09:55 Hgb O2 Saturation 90.4 % (95-100) L 10/19/22 09:55 Carboxyhemoglobin 0.3 %THgb (0.4-20.1) L 10/19/22 09:55 Methemoglobin 0.9 % (0.4-1.5) 10/19/22 09:55 Total Hemoglobin 11.9 g/dL (12-16) L 10/19/22 09:55 Sodium 140.0 mmol/L (131-143) 10/19/22 09:55 Potassium 6.9 mmol/L (3.5-5.0) H 10/19/22 09:55 Glucose 91.0 mg/dL (70-115) 10/19/22 09:55 Ionized Calcium 1.3 mmol/L (1.1-1.4) 10/19/22 09:55 O2 Delivery Device Nc 10/19/22 09:55 O2 Liters/Min 3.0 % 10/19/22 09:55 FiO2 32.0 % 10/19/22 09:55 Entry Level Manager ID Monro 10/19/22 09:55 Sodium 137 mmol/L (136-145) 10/29/22 04:38 Potassium 4.2 mmol/L (3.5-5.1) 10/29/22 04:38 Chloride 96 mmol/L (98-107) L 10/29/22 04:38 Carbon Dioxide 23 mmol/L (22-29) 10/29/22 04:38 Anion Gap 22.2 (5-19) H 10/29/22 04:38 BUN 40 mg/dL (8-23) H 10/29/22 04:38 Creatinine 3.4 mg/dL (0.5-0.9) H 10/29/22 04:38 GFR Calculation 13.6 mL/min (90-130) L 10/29/22 04:38 Glucose 108 mg/dL (65-115) 10/29/22 04:38 Calculated Osmolality 294 mOsm/kg (285-295) 10/29/22 04:38 Lactic Acid 1.1 mmol/L (0.5-2.2) 10/19/22 14:34 Calcium 8.9 mg/dL (8.5-10.5) 10/29/22 04:38 Phosphorus 7.5 mg/dL (2.5-4.5) H 10/28/22 04:47 Magnesium 2.4 mg/dL (1.7-2.3) H 10/29/22 04:38 Total Bilirubin 0.4 mg/dL (0.15-1.2) 10/29/22 04:38 AST 16 U/L (0-32) 10/29/22 04:38 ALT 16 U/L (0-33) 10/29/22 04:38 Alkaline Phosphatase 79 U/L (35-105) 10/29/22 04:38 Troponin T Baseline 275 ng/L (0-10) H* 10/19/22 10:01 Troponin T 120 Minute 275.5 ng/L (0-10) H 10/19/22 11:57 Delta Troponin T 0.5 ABS# (0-10) 10/19/22 11:57 Troponin T Hi Sens 6Hr 268.2 ng/L (0-10) H 10/19/22 16:06 Troponin T Hi Sens 6Hr Delta -6.8 ng/L (0-12) L 10/19/22 16:06 C-Reactive Protein 4.6 mg/L (0.0-4.9) 10/23/22 06:02 NT-Pro-B Natriuret Pep 01210 pg/mL (0-125) H 10/25/22 04:51 Total Protein 6.1 g/dL (6.6-8.7) L 10/29/22 04:38 Albumin 4.4 g/dL (3.5-5.2) 10/29/22 04:38 Globulin 1.7 g/dL (1.3-4.6) 10/29/22 04:38 Carcinoembryonic Ag 3.0 ng/mL (0.0-4.7) 10/19/22 14:34 CA 19-9 Antigen 33.67 U/mL (0-35) 10/19/22 14:34 Procalcitonin 0.89 ng/mL (0-0.5) H 10/23/22 06:02 TSH 6.24 uIU/mL (0.27-4.20) H 10/23/22 06:02 Free T4 0.60 ng/dL (0.82-1.77) L 10/23/22 06:02 Free T3 1.1 PG/ML (2.0-4.4) L 10/23/22 06:02 PTH Intact 153.1 pg/mL (15-65) H 10/26/22 04:55 Calcium (PTH Intact) 8.8 mg/dL (8.5-10.5) 10/26/22 04:55 Nasal Influ A H1 2008 PCR Not detected (NOT DETECT) 10/23/22 03:50 Adenovirus (PCR) Not detected (NOT DETECT) 10/23/22 03:50 C. pneumoniae DNA (PCR) Not detected (NOT DETECT) 10/23/22 03:50 Coronavirus 229E (PCR) Not detected (NOT DETECT) 10/23/22 03:50 Hep Bs Antigen Non-reactive (Nonreactive) 10/19/22 10:01 Hep Bs Antibody 70.4 (11.5-1000) 10/19/22 10:01 Hep B Core Total Ab Non-reactive (Nonreactive) 10/19/22 10:01 Hepatitis C Antibody Non-reactive (Nonreactive) 10/19/22 10:01 Human Metapneumovir PCR Not detected (NOT DETECT) 10/23/22 03:50 Influenza A (H1) PCR Not detected (NOT DETECT) 10/23/22 03:50 Influenza A (H3) PCR Not detected (NOT DETECT) 10/23/22 03:50 Influenza Type A (PCR) Not detected (NOT DETECT) 10/23/22 03:50 Influenza Type B (PCR) Not detected (NOT DETECT) 10/23/22 03:50 M. pneumoniae (PCR) Not detected (NOT DETECT) 10/23/22 03:50 Parainfluenza 1 (PCR) Not detected (NOT DETECT) 10/23/22 03:50 Parainfluenza 2 (PCR) Not detected (NOT DETECT) 10/23/22 03:50 Parainfluenza 3 (PCR) Not detected (NOT DETECT) 10/23/22 03:50 Parainfluenza 4 (PCR) Not detected (NOT DETECT) 10/23/22 03:50 RSV Type A (PCR) Not detected (NOT DETECT) 10/23/22 03:50 RSV Type B (PCR) Not detected (NOT DETECT) 10/23/22 03:50 Entero/Rhino (PCR) Not detected (NOT DETECT) 10/23/22 03:50 SARS-CoV-2 (PCR) Not detected (NOT DETECT) 10/23/22 03:50 Vitals Last Vital Signs Temp 98.1 F 10/29/22 08:00 Pulse 73 10/29/22 08:22 Resp 16 10/29/22 08:22 BP 124/77 10/29/22 08:00 Pulse Ox 100 10/29/22 08:22 O2 Del Method Nasal Cannula 10/29/22 08:22 O2 Flow Rate 2 10/29/22 08:22 FiO2 2 10/25/22 15:28 Discharge Plan Discharge Patient Disposition: Home Health Service Condition: Stable Prescriptions: New midodrine 5 mg Tablet 5 mg PO DAILY PRN (Reason: on day of dialysis for SBP less than 120 mmhg) Qty: 15 0RF liothyronine 5 mcg Tablet 10 mcg PO DAILY 30 Days Qty: 60 0RF levothyroxine 75 mcg Tablet 75 mcg PO QAM 30 Days Qty: 30 0RF isosorbide mononitrate 30 mg tablet extended release 24 hr 30 mg PO BID@08,16 Qty: 60 0RF metoprolol tartrate 50 mg tablet 50 mg PO BID Qty: 60 0RF Continued epinephrine 0.3 mg/0.3 mL auto-injector 0.3 mg IM Q10M PRN (Reason: Allergic Reaction) Rx Instructions: for 2 doses montelukast 10 mg tablet 10 mg PO DAILY@0830 Qty: 30 5RF nitroglycerin [Nitrostat] 0.4 mg tablet, sublingual 0.4 mg SUBLINGUAL Q5M PRN (Reason: Chest Pain) 30 Days Qty: 30 5RF buspirone 15 mg tablet 15 mg PO BID Qty: 60 2RF albuterol sulfate 2.5 mg /3 mL (0.083 %) solution for nebulization 2.5 mg INHALATION QID PRN (Reason: Shortness Of Breath) 30 Days Qty: 75 5RF prednisone 5 mg tablet 5 mg PO DAILY Qty: 30 3RF albuterol sulfate 90 mcg/actuation HFA aerosol inhaler 2 puff INHALATION 6XD PRN (Reason: Shortness Of Breath) Qty: 6.7 5RF ondansetron 8 mg tablet,disintegrating 8 mg PO Q8H PRN (Reason: nausea and vomiting) Qty: 90 0RF budesonide [Pulmicort] 0.5 mg/2 mL suspension for nebulization 0.5 mg inhalation BID Qty: 120 0RF Rx Instructions: NEEDS APPT PRIOR TO FURTHER REFILLS formoterol fumarate [Perforomist] 20 mcg/2 mL solution for nebulization 2 ml inhalation Q12H Qty: 120 0RF Rx Instructions: Needs appt for further refills. citalopram 40 mg tablet 40 mg PO DAILY@0830 30 Days Qty: 30 2RF azithromycin 250 mg tablet 250 mg PO .COMPLEX 90 Days Qty: 45 0RF Rx Instructions: 250 mg PO on Damien Wednesday Lee; aspirin 81 mg tablet,delayed release (DR/EC) 81 mg PO DAILY@0830 30 Days Qty: 30 5RF hydrocodone-acetaminophen 5-325 mg tablet 1 tab PO BID PRN (Reason: pain/dyspnea) 30 Days Qty: 60 0RF Hold Instructions: Resume on 11/06/22. fluticasone propionate [Flonase Allergy Relief] 50 mcg/actuation [place]kewing,Suspension 2 spray INTRANASAL DAILY PRN (Reason: Allergy Symptoms) ropinirole 1 mg tablet 1 mg PO BEDTIME hydroxyzine HCl 50 mg tablet 50 mg PO QID PRN (Reason: Anxiety) polyethylene glycol 3350 17 gram Powder In Packet 17 g PO DAILY PRN (Reason: constipation) Qty: 30 0RF RenaPlex-D 800 mcg-12.5 mg -2,000 unit tablet 1 tab PO QPM atorvastatin 40 mg tablet 40 mg PO QAM revefenacin 175 mcg/3 mL solution for nebulization 175 mcg inhalation QAM Rx Instructions: Needs appt for further refills. sevelamer carbonate 0.8 gram Powder In Packet 0.4 g PO TID Hold Instructions: see nephrology Rx Instructions: must administer with a meal/food Discontinued metoprolol succinate 50 mg tablet extended release 24 hr 50 mg PO BID@0830,2100 30 Days Qty: 60 5RF omeprazole 20 mg capsule,delayed release(DR/EC) 20 mg PO DAILY@0830 30 Days Qty: 30 5RF losartan 50 mg tablet 100 mg PO DAILY isosorbide mononitrate 60 mg tablet extended release 24 hr 60 mg PO DAILY@0830 levothyroxine 50 mcg tablet 50 mcg PO QAM No Action oxycodone-acetaminophen 7.5-325 mg tablet 1 tab PO Q6H PRN (Reason: pain) Qty: 20 0RF DOK 100 mg capsule 100 mg PO BID Qty: 14 0RF Discharge Orders: Discharge Order (Routine); Ordered 10/29/22 Ordered By: Mitch Smith Referrals: [facility] [place] [facility] ([facility]) [Outside] Nancy Carrasco FNP-C [Primary Care Provider] - 11/10/22 11:00 am () Discharge Diet: Usual diet and As Directed Discharge Activity: Resume usual activity and Increase activity as tolerated Patient Instructions: COPD, Metoprolol (By mouth), Levothyroxine (By mouth), Isosorbide Mononitrate (By mouth), Midodrine (By mouth), Liothyronine (By mouth), Heart Failure (ED), Pneumonia (ED), CHF Stoplight, COPD Stoplight, Opioid Safety, Pneumonia Stoplight Activity Restrictions/Additional Instructions: She is not to take her losartan anymore. Metoprolol succinate has been changed to tartrate 50 mg twice daily. Dose of Imdur has been changed to 30 mg twice daily. She can take midodrine 5 mg daily as needed on the day of dialysis for systolic blood pressure of less than 120 mmHg. Follow-up with your primary care provider within 7 to 10 days. Follow-up with general surgery as an outpatient for scheduled cholecystectomy. Discharge Attestations Time Spent in Discharge Care*: greater than 30 min Specific Discharge Activities: educating patient, discussing with pcp/other providers, discussing with therapeutic case manager/social workers/dc planners, documenting/other paperwork and evaluating patient/reviewing data Status at Discharge: Cognitive status at discharge: cognitively intact , Behavioral status at discharge: cooperative , Functional status at discharge: uses cane/walker , Overall status at discharge: patient is back to baseline Quality Metrics Clinical Quality Measures [ No reported AMI, CVA or VTE this stay] Coding Level of Care Code 19558 Total time (in minutes) for Discharge: 60 Diagnoses Acute hyperkalemia E87.5 End stage renal 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 N18.6; Z99.2 Acute and chronic respiratory failure J96.20 Congestive heart failure I50.9 Heart failure chronicity: acute on chronic Heart failure type: unspecified COPD with acute exacerbation J44.1 Healthcare-associated pneumonia J18.9 Shortness of breath R06.02 Chronic kidney disease with 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 due to type 2 diabetes mellitus E11.22; N18.6; Z99.2 Gallbladder anomaly Q44.1 Transaminitis R74.01 Depression F32.A Physical deconditioning R53.81 Muscle wasting M62.50 Protein calorie malnutrition E46 NSTEMI (non-ST elevated myocardial infarction) I21.4 Metabolic acidosis E87.20 Anxiety F41.9 Hypothyroidism E03.9 Hypothyroidism type: acquired
[2022-10-29 10:30] LABS: Hematocrit 29.9 % (37.0-47.0); Hemoglobin 8.6 g/dL (11.5-15.3)
[2022-10-29] MEDS: liothyronine 5 mcg Tablet 10 MCG PO (10:47)
[2022-10-29] MEDS: aspirin 81 mg EC Tablet PO (10:48)
[2022-10-29] MEDS: predniSONE 20 mg Tablet 40 MG PO (10:48)
[2022-10-29] MEDS: citalopram 20 mg Tablet 40 MG PO (10:48)
[2022-10-29] MEDS: sevelamer 800 mg Tablet PO (10:48)
[2022-10-29] MEDS: montelukast sodium 10 mg Tablet PO (10:48)
[2022-10-29] MEDS: BuSPIRONE 10 mg Tablet 15 MG PO (10:49)
[2022-10-29] MEDS: nystatin 100,000 unit/mL UDC 5 mL 100000 UNIT PO (10:49)
[2022-10-29] MEDS: metoprolol succinate ER (24 HR) 50 mg Tablet PO (10:50)
--- NOTE | 2022-10-29 13:49 | ANES.PREANE2 ---
Pre-Anesthetic Assessment Height/Weight: Height 1.47 m Weight 29.36 kg Temp Pulse Resp BP Pulse Ox O2 Del Method O2 Flow Rate 98.1 F 72 16 124/77 100 Nasal Cannula 2 10/29/22 08:00 10/29/22 11:18 10/29/22 11:18 10/29/22 08:00 10/29/22 11:18 10/29/22 11:18 10/29/22 11:18 FiO2 2 10/25/22 15:28 Preop Diagnosis: anemia Lap Cholecystectomy Familial anesthetic complications: None Social No alcohol and No tobacco Airway Mallampati: Class II Dentition: other (Missing) Pulmonary Chronic Obstructive Pulmonary Disease (2L at rest, 4 L w/ exertion) and Sleep Apnea Pneumonia, but has completed 14 day course of antibiotics COPD exacerbation, will be discharged on a steroid taper CV/HEM Hypertension and Myocardial Infarction (? Type II [place] - seen by Dr. Culver inpatient. Stress test negative, stating no further investigation required) AAA Chronic Renal Failure (dialysis TRS) Metabolic Thyroid Disease [facility] [place] cachexia Anesthetic Plan ASA status: 4 Anesthesia: General Risk of > 500 ml blood loss (7ml/kg in children): No Medications/Allergies Home Medications Medication Instructions Recorded Confirmed Last Taken Type fluticasone propionate 50 2 spray intranasal DAILY PRN 02/21/20 10/29/22 10/18/22 History mcg/actuation nasal Allergy Symptoms spray,suspension (Flonase Allergy Relief) epinephrine 0.3 mg/0.3 mL 0.3 mg IM Q10M PRN Allergic 10/16/20 10/29/22 Unknown History injection, auto-injector Reaction montelukast 10 mg tablet 10 mg PO DAILY@0830 #30 tabs 04/05/22 10/29/22 10/18/22 Rx nitroglycerin 0.4 mg sublingual 0.4 mg sublingual Q5M PRN Chest 04/05/22 10/29/22 06/12/22 Rx tablet (Nitrostat) Pain 30 days #30 tabs sevelamer carbonate 0.8 gram oral 0.4 g PO TID 06/12/22 10/29/22 10/18/22 History powder packet ondansetron 8 mg disintegrating 8 mg PO Q8H PRN nausea and 06/16/22 10/29/22 Unknown Rx tablet vomiting #90 tabs budesonide 0.5 mg/2 mL suspension 0.5 mg (2 mL) inhalation BID #120 06/21/22 10/29/22 10/18/22 Rx for nebulization (Pulmicort) mL formoterol fumarate 20 mcg/2 mL 2 ml inhalation Q12H #120 mL 06/21/22 10/29/22 10/18/22 Rx solution for nebulization (Perforomist) citalopram 40 mg tablet 40 mg PO DAILY@0830 30 days #30 07/01/22 10/29/22 10/18/22 Rx tabs azithromycin 250 mg tablet 250 mg PO .COMPLEX COPD 90 days 07/06/22 10/29/22 10/18/22 Rx #45 tabs aspirin 81 mg tablet,delayed 81 mg PO DAILY@0830 30 days #30 08/18/22 10/29/22 10/29/22 Rx release tabs hydroxyzine HCl 50 mg tablet 50 mg PO QID PRN Anxiety 08/21/22 10/29/22 10/18/22 History ropinirole 1 mg tablet 1 mg PO BEDTIME 08/21/22 10/29/22 10/18/22 History polyethylene glycol 3350 17 gram 17 g PO DAILY PRN constipation #30 08/25/22 10/29/22 10/18/22 Rx oral powder packet ea vit B,C-folic ac 800 mcg-zinc 12.5 1 tab PO QPM 09/08/22 10/29/22 10/18/22 History mg-selen-D3 2,000 unit-vit E tablet (RenaPlex-D) atorvastatin 40 mg tablet 40 mg PO QAM 09/16/22 10/29/22 10/18/22 History revefenacin 175 mcg/3 mL solution 175 mcg inhalation QAM 09/16/22 10/29/22 10/18/22 History for nebulization amlodipine 5 mg tablet 5 mg PO DAILY 30 days #30 tabs 09/23/22 10/29/22 10/18/22 Rx buspirone 15 mg tablet 15 mg PO BID #60 tabs 09/27/22 10/29/22 10/18/22 Rx hydrocodone 5 mg-acetaminophen 325 1 tab PO BID PRN pain/dyspnea 1 10/01/22 10/29/22 Unknown Rx mg tablet month #60 tabs albuterol sulfate 2.5 mg/3 mL 2.5 mg (3 mL) inhalation QID PRN 10/13/22 10/29/22 10/19/22 Rx (0.083 %) solution for nebulization Shortness Of Breath 30 days #75 mL albuterol sulfate 90 mcg/actuation 2 puff inhalation 6XD PRN 10/13/22 10/29/22 10/19/22 Rx aerosol inhaler Shortness Of Breath #6.7 grams prednisone 5 mg tablet 5 mg PO DAILY #30 tabs 10/13/22 10/29/22 10/18/22 Rx alprazolam 0.5 mg tablet (Xanax) 0.5 mg PO DAILY PRN anxiety #14 10/29/22 10/29/22 Unknown Rx tabs cyanocobalamin (vitamin B-12) 500 mcg PO DAILY #30 tabs 10/29/22 10/29/22 Unknown Rx 1,000 mcg tablet isosorbide mononitrate 30 mg 30 mg PO BID@08,16 #60 tabs 10/29/22 10/29/22 Unknown Rx tablet,extended release 24 hr levothyroxine 75 mcg tablet 75 mcg PO QAM 30 days #30 tabs 10/29/22 10/29/22 Unknown Rx liothyronine 5 mcg tablet 10 mcg PO DAILY 30 days #60 tabs 10/29/22 10/29/22 Unknown Rx metoprolol tartrate 50 mg tablet 50 mg PO BID #60 tabs 10/29/22 10/29/22 Unknown Rx midodrine 5 mg tablet 5 mg PO DAILY PRN on day of 10/29/22 10/29/22 Unknown Rx dialysis for SBP less than 120 mmhg #15 tabs Allergies Allergy/AdvReac Type Severity Reaction Status Date / Time lisinopril Allergy Severe anaphylaxis Verified 10/19/22 09:47 Sulfa (Sulfonamide AdvReac Intermediate Itching, Verified 10/19/22 09:47 Antibiotics) burning Current Medications Generic Name Dose Route Start Last Admin Trade Name Freq PRN Reason Stop Dose Admin Albuterol/Ipratropium 3 ml 10/19/22 16:00 10/29/22 11:19 Ipratropium-Albuterol 3 Ml Neb INHALATION Not Given QID.RESPIRATORY APOLONIA Aspirin 81 mg 10/20/22 08:30 10/29/22 10:48 Aspirin 81 Mg Ec Tablet PO 81 mg DAILY@0830 APOLONIA Administration Atorvastatin Calcium 40 mg 10/20/22 06:00 10/29/22 06:12 Atorvastatin 40 Mg Tablet PO 40 mg QAM APOLONIA Administration Budesonide 0.5 mg 10/19/22 20:00 10/29/22 08:22 Budesonide 0.5 Mg/2 Ml Neb INHALATION Not Given BID.RESPIRATORY APOLONIA Buspirone HCl 15 mg 10/19/22 18:00 10/29/22 10:49 Buspirone 10 Mg Tablet PO 15 mg BID APOLONIA Administration Calcium Carbonate 1,000 mg 10/28/22 12:20 10/28/22 13:34 Calcium Carbonate 500 Mg Chew Tablet PO 1,000 mg Q4H PRN Administration HEARTBURN Citalopram Hydrobromide 40 mg 10/20/22 08:30 10/29/22 10:48 Citalopram 20 Mg Tablet PO 40 mg DAILY@0830 APOLONIA Administration Enoxaparin Sodium 30 mg 10/19/22 15:57 10/28/22 18:09 Enoxaparin 30 Mg/0.3 Ml Syringe SUBCUT 30 mg Q24H APOLONIA Administration Heparin Sodium (Porcine) 1,000 unit 10/25/22 10:30 10/25/22 15:48 Heparin, Porcine 1,000 Unit/Ml Inj 10 Ml HE 1,000 unit PRN PRN Administration HEMODIALYSIS USE ONLY Albumin Human 12.5 gm in 50 mls @ 60 mls/hr 10/23/22 07:57 10/25/22 16:41 Albumin IV Infused PRN PRN Infusion Hypotension and/or symptomatic Dobutamine HCl 200 mg/ Sodium 50 mls @ 0 mls/hr 10/27/22 06:27 10/27/22 12:05 Chloride IV Infused .Q0M PRN Titration per protocol Protocol Per Protocol Isosorbide Mononitrate 30 mg 10/27/22 18:00 10/29/22 10:56 Isosorbide Mononitrate Er 60 Mg Tablet PO Not Given BID APOLONIA Levothyroxine Sodium 75 mcg 10/21/22 06:00 10/29/22 06:12 Levothyroxine 75 Mcg Tablet PO 75 mcg QAM APOLONIA Administration Liothyronine Sodium 10 mcg 10/20/22 13:45 10/29/22 10:47 Liothyronine 5 Mcg Tablet PO 10 mcg DAILY APOLONIA Administration Lorazepam 0.5 mg 10/27/22 20:31 10/29/22 06:29 Lorazepam 2 Mg/Ml Inj 1 Ml IVP 0.5 mg Q8H PRN Administration ANXIETY Metoclopramide HCl 5 mg 10/28/22 05:14 10/28/22 05:26 Metoclopramide 5 Mg/Ml Sdv 2 Ml IVP 5 mg Q4H PRN Administration NAUSEA AND VOMITING Metoprolol Succinate 50 mg 10/19/22 21:00 10/29/22 10:50 Metoprolol Succinate Er (24 Hr) 50 Mg Tablet PO 50 mg BID@0830,2100 APOLONIA Administration Metoprolol Tartrate 5 mg 10/27/22 06:27 10/27/22 12:06 Metoprolol Tartrate 1 Mg/1 Ml Sdv 5 Ml IV 5 mg PRN PRN Administration HR Montelukast Sodium 10 mg 10/20/22 08:30 10/29/22 10:48 Montelukast Sodium 10 Mg Tablet PO 10 mg DAILY@0830 APOLONIA Administration Morphine Sulfate 1 mg 10/19/22 15:57 10/29/22 06:28 Morphine 4 Mg/Ml Sdv 1 Ml IVP 1 mg Q4H PRN Administration SEVERE PAIN Non-Formulary Medication 1 tab 10/19/22 18:00 10/28/22 18:09 Vit B,O-Le-Loqi-Selen-Vit D3-E [Renaplex-D] PO Not Given QPM APOLONIA Nystatin 100,000 unit 10/28/22 21:00 10/29/22 13:44 Nystatin 100,000 Unit/Ml Udc 5 Ml PO Not Given QID APOLONIA Ondansetron HCl 4 mg 10/19/22 15:57 10/28/22 03:30 Ondansetron 2 Mg/Ml Sdv 2 Ml IVP 4 mg Q8H PRN Administration vomiting, or N/V if npo Pantoprazole Sodium 40 mg 10/19/22 15:57 10/28/22 21:47 Pantoprazole 40 Mg Sdv IVP 40 mg Q24H APOLONIA Administration Prednisone 40 mg 10/24/22 09:00 10/29/22 10:48 Prednisone 20 Mg Tablet PO 40 mg DAILY APOLONIA Administration Ropinirole HCl 1 mg 10/19/22 21:00 10/28/22 21:36 Ropinirole 1 Mg Tablet PO 1 mg BEDTIME [facility] Administration Sevelamer Carbonate 800 mg 10/27/22 08:00 10/29/22 13:44 Sevelamer 800 Mg Tablet PO Not Given TIDWM [facility] Additional Medication Information Current Medications Acetaminophen (Acetaminophen 325 Mg Tablet) 650 mg PO Q6H PRN PRN Reason: Mild/Mod Pain Or Temp >/= 101 Albuterol/Ipratropium (Ipratropium-Albuterol 3 Ml Neb) 3 ml INHALATION QID.RESPIRATORY [facility] Last Admin: 10/28/22 08:06 Dose: Not Given Aspirin (Aspirin 81 Mg Ec Tablet) 81 mg PO DAILY@0830 [facility] Last Admin: 10/27/22 13:13 Dose: Not Given Atorvastatin Calcium (Atorvastatin 40 Mg Tablet) 40 mg PO QAM [facility] Last Admin: 10/28/22 05:25 Dose: 40 mg Budesonide (Budesonide 0.5 Mg/2 Ml Neb) 0.5 mg INHALATION BID.RESPIRATORY [facility] Last Admin: 10/28/22 08:06 Dose: Not Given Buspirone HCl (Buspirone 10 Mg Tablet) 15 mg PO BID [facility] Last Admin: 10/27/22 17:36 Dose: 15 mg Citalopram Hydrobromide (Citalopram 20 Mg Tablet) 40 mg PO DAILY@0830 [facility] Last Admin: 10/27/22 13:29 Dose: 40 mg Enoxaparin Sodium (Enoxaparin 30 Mg/0.3 Ml Syringe) 30 mg SUBCUT Q24H [facility] Last Admin: 10/27/22 13:23 Dose: 30 mg Heparin Sodium (Porcine) (Heparin, Porcine 1,000 Unit/Ml Inj 10 Ml) 1,000 unit HE PRN PRN PRN Reason: HEMODIALYSIS USE ONLY Last Admin: 10/25/22 15:48 Dose: 1,000 unit Albumin Human (Albumin) 12.5 gm in 50 mls @ 60 mls/hr IV PRN PRN PRN Reason: Hypotension and/or symptomatic Last Infusion: 10/25/22 16:41 Dose: Infused Sodium Chloride (Sodium Chloride 0.9%) 1,000 mls @ 0 mls/hr IV .Q0M PRN PRN Reason: hypotension or symptomatic Dobutamine HCl 200 mg/ Sodium (Chloride) 50 mls @ 0 mls/hr IV .Q0M PRN; Protocol PRN Reason: per protocol Last Titration: 10/27/22 12:05 Dose: Infused Isosorbide Mononitrate (Isosorbide Mononitrate Er 60 Mg Tablet) 30 mg PO BID [facility] Last Admin: 10/27/22 17:36 Dose: 30 mg Levothyroxine Sodium (Levothyroxine 75 Mcg Tablet) 75 mcg PO QAM [facility] Last Admin: 10/28/22 05:26 Dose: 75 mcg Liothyronine Sodium (Liothyronine 5 Mcg Tablet) 10 mcg PO DAILY [facility] Last Admin: 10/27/22 13:29 Dose: 10 mcg Lorazepam (Lorazepam 2 Mg/Ml Inj 1 Ml) 0.5 mg IVP Q8H PRN PRN Reason: ANXIETY Last Admin: 10/27/22 21:05 Dose: 0.5 mg Metoclopramide HCl (Metoclopramide 5 Mg/Ml Sdv 2 Ml) 5 mg IVP Q4H PRN PRN Reason: NAUSEA AND VOMITING Last Admin: 10/28/22 05:26 Dose: 5 mg Metoprolol Succinate (Metoprolol Succinate Er (24 Hr) 50 Mg Tablet) 50 mg PO BID@0830,2100 [facility] Last Admin: 10/27/22 21:54 Dose: 50 mg Metoprolol Tartrate (Metoprolol Tartrate 1 Mg/1 Ml Sdv 5 Ml) 5 mg IV PRN PRN PRN Reason: HR Last Admin: 10/27/22 12:06 Dose: 5 mg Midodrine (Midodrine 5 Mg Tablet) 5 mg PO DAILY PRN PRN Reason: on day of dialysis for SBP less than 120 mmhg Montelukast Sodium (Montelukast Sodium 10 Mg Tablet) 10 mg PO DAILY@0830 [facility] Last Admin: 10/27/22 13:54 Dose: Not Given Morphine Sulfate (Morphine 4 Mg/Ml Sdv 1 Ml) 1 mg IVP Q4H PRN PRN Reason: SEVERE PAIN Last Admin: 10/28/22 03:30 Dose: 1 mg Nitroglycerin (Nitroglycerin 0.4 Mg Sublingual Tablet) 0.4 mg SUBLINGUAL Q5M PRN PRN Reason: Chest Pain Non-Formulary Medication (Vit B,P-Pv-Qcef-Selen-Vit D3-E [Renaplex-D]) 1 tab PO QPM [facility] Last Admin: 10/27/22 17:37 Dose: Not Given Ondansetron HCl (Ondansetron 2 Mg/Ml Sdv 2 Ml) 4 mg IVP Q8H PRN PRN Reason: vomiting, or N/V if npo Last Admin: 10/28/22 03:30 Dose: 4 mg Ondansetron HCl (Ondansetron 2 Mg/Ml Sdv 2 Ml) 4 mg IVP Q2M PRN PRN Reason: NAUSEA Pantoprazole Sodium (Pantoprazole 40 Mg Sdv) 40 mg IVP Q24H [facility] Last Admin: 10/27/22 13:31 Dose: 40 mg Prednisone (Prednisone 20 Mg Tablet) 40 mg PO DAILY [facility] Last Admin: 10/27/22 13:31 Dose: 40 mg Ropinirole HCl (Ropinirole 1 Mg Tablet) 1 mg PO BEDTIME [facility] Last Admin: 10/27/22 21:54 Dose: 1 mg Sevelamer Carbonate (Sevelamer 800 Mg Tablet) 800 mg PO TIDWM [facility] Last Admin: 10/27/22 17:38 Dose: 800 mg PFSH Anesthesia Medical History AAA (abdominal aortic aneurysm) 4.1 x 4.4 x 5.7 cm 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 Anemia Anxiety attack Atypical chest pain Brain aneurysm Chest pain Chest pain Chronic kidney disease CKD stage III, solitary kidney Chronic migraine without aura, intractable, with status migrainosus Congestive heart failure COPD (chronic obstructive pulmonary disease) COPD with acute exacerbation Depression Elevated troponin End-stage renal disease needing dialysis Endoleak post (EVAR) endovascular aneurysm repair Fear associated with healthcare Gallbladder abnormality GERD (gastroesophageal reflux disease) History of stent insertion of renal artery Hypercholesteremia Hypertension Hypertensive urgency Resolved Hyponatremia Hypothyroidism Inguinal swelling Major depressive disorder, recurrent severe without psychotic features Malnourished Normal colonoscopy NSTEMI (non-ST elevated myocardial infarction) Osteoporosis Peripheral vascular disease Protein-energy malnutrition Psychiatric care Restless leg Solitary kidney Surgical History H/O: hysterectomy History of renal stent Herculink stent History of repair of aneurysm of abdominal aorta using endovascular stent graft Hx of colonoscopy with polypectomy Age 62 Hx of tonsillectomy S/P appendectomy Status post endovascular aneurysm repair (EVAR) Family History Mother CAD (coronary artery disease) Chronic kidney disease (CKD) Dementia Stroke Father CAD (coronary artery disease) Cancer Diabetes Brother CAD (coronary artery disease) Cancer Lung disease Grandfather Cancer Grandmother Diabetes Family/Other Lung disease Suicide Other Hypertension Denies family history of Clotting disorder Anesthesia complication Bleeding disorder Social History Smoking and tobacco status: former smoker Quit status (tobacco): has quit using tobacco Year quit tobacco: 2005 - PPD x 35 Years Former quit date comment: Started at age 18 Second hand smoke exposure: No Smoking risk assessment/counseling performed?: No Alcohol intake: never Desire information about alcohol rehabilitation?: No Counseling given: No Substance/Drug Use: never Desire information about substance/drug rehabilitation?: No Counseling given: No Adopted: No Caregiver/support person: No Lives independently: Yes Household members: family and children Housing: House Marital status: / Marital status details: 2006 Number of children: 12 Number of grandchildren: 4 Highest education level completed: Master's Degree Education level details: Criminal Justice service: No Current occupational status: disabled Current occupational exposures/hazards: No Pets and animals: Yes Pets & animals: cat(s), dog(s) and farm animals Farm Animals: cattle Leisure activites: reading and other Leisure activities details: watch TV Sexually active: No Do you think of yourself as: Straight/Heterosexual Current gender identity: Female Yudy/Methodist: [employer] Special yudy needs: No Agree to transfusion: Yes Financial difficulty paying for basics: Somewhat Hard Female Reproductive History Para: 0 Spontaneous abortions: Yes Data Anesthesia 10/29/22 10:21 10/29/22 04:38 Short CBC 10/28/22 10/29/22 10/29/22 Range/Units 04:47 04:38 10:21 WBC 13.0 H 14.4 H (4.0-10.0) 10^3/uL Hgb 10.0 L 8.3 L 8.6 L (11.5-15.3) g/dL Hct 34.6 L 28.5 L 29.9 L (37.0-47.0) % MCV 105.2 H 107.5 H (81-99) fl Plt Count 127 L 116 L (130-400) 10^3/cmm Neut % (Auto) 76.1 75.9 % Neut # (Auto) 9.90 H 10.96 H (1.8-7.7) 10^3/uL BMP 10/28/22 10/29/22 04:47 04:38 Sodium 137 137 Potassium 5.2 H 4.2 Chloride 95 L 96 L Carbon Dioxide 20 L 23 BUN 76 H 40 H Creatinine 5.6 H* D 3.4 H Glucose 103 108 Calcium 8.8 8.9 Liver Function 10/28/22 10/29/22 Range/Units 04:47 04:38 Total Bilirubin 0.3 0.4 (0.15-1.2) mg/dL AST 15 16 (0-32) U/L ALT 19 16 (0-33) U/L Alkaline Phosphatase 63 79 (35-105) U/L Albumin 4.5 4.4 (3.5-5.2) g/dL Cardiac Studies: Echocardiogram 09/21/22 Echocardiogram Limited Views 08/22/22 Echocardiogram Ultrasound 08/19/20 Sestamibi Stress Test (Cardiology) 10/26/22
== END 2022-10-29 13:55 | disposition home health service (06) | DRG 280 ==
LOC: ER 13:38 → ICU 14:46 → MEDSURG 10-21 16:53
PROVIDERS: Hospitalist; Internal Medicine Nephrology; Admitting Provider Family Medicine; Emergency Provider Emergency Medicine; PCP Nurse Practitioner Family; Visit Provider Student in an Organized Health Care Education/Training Program
DX: I13.2 Hypertensive heart and chronic kidney disease with heart failure and with stage 5 chronic kidney disease, or end stage renal disease (principal); I21.A1 Myocardial infarction type 2; I50.33 Acute on chronic diastolic (congestive) heart failure; J96.22 Acute and chronic respiratory failure with hypercapnia; J96.21 Acute and chronic respiratory failure with hypoxia; J18.8 Other pneumonia, unspecified organism; N18.6 End stage renal disease; J44.1 Chronic obstructive pulmonary disease with (acute) exacerbation; J44.0 Chronic obstructive pulmonary disease with (acute) lower respiratory infection; E46 Unspecified protein-calorie malnutrition; Z68.1 Body mass index [BMI] 19.9 or less, adult; E87.20 Acidosis, unspecified; Q44.1 Other congenital malformations of gallbladder; F33.9 Major depressive disorder, recurrent, unspecified; E11.22 Type 2 diabetes mellitus with diabetic chronic kidney disease; Z99.2 Dependence on renal dialysis; Z87.01 Personal history of pneumonia (recurrent); E87.5 Hyperkalemia; E11.51 Type 2 diabetes mellitus with diabetic peripheral angiopathy without gangrene; Z79.51 Long term (current) use of inhaled steroids; Z79.82 Long term (current) use of aspirin; Z79.891 Long term (current) use of opiate analgesic; E03.9 Hypothyroidism, unspecified; F41.9 Anxiety disorder, unspecified; I16.0 Hypertensive urgency; I95.9 Hypotension, unspecified; K82.9 Disease of gallbladder, unspecified; I34.0 Nonrheumatic mitral (valve) insufficiency; Z87.891 Personal history of nicotine dependence; G25.81 Restless legs syndrome; M81.0 Age-related osteoporosis without current pathological fracture; K21.9 Gastro-esophageal reflux disease without esophagitis; Z90.5 Acquired absence of kidney; D63.1 Anemia in chronic kidney disease
CPT/HCPCS: 12345; 36415; 36600; 51702; 71045; 71275; 76705; 78452; 80048; 80051; 80053; 82310; 82330; 82378; 82805; 83605; 83735; 83880; 83970; 84100; 84145; 84439; 84443; 84481; 84484; 85014; 85018; 85025; 85378; 86140; 86301; 86705; 86706; 86803; 87040; 87340; 87486; 87581; 87633; 87641; 90935; 93005; 93017; 94640; 94660; 94664; 96372; 96374; 96375; 96376; 99285; A9500; C9113; J0360; J0461; J1250; J1644; J1650; J1815; J2060; J2270; J2405; J2543; J2765; J2920; J3370; J3490; J7050; J7512; J7614; J7626; P9047; Q3014; Q4081; Q9967

== ENCOUNTER 2022-11-01 10:24 | Day surgery (SDC) | payer MEDICARE, MEDICAID, SELFPAY ==
[2022-10-29 13:12] VITALS: BMI 13.8
--- NOTE | 2022-10-29 13:30 | SUR.PREOP ---
Called patient to perform telephone pre-op. Patient is currently admitted on med/surg. Patient was concerned Dr. Petit would not do the surgery. Dr. Petit notified and states he would like anesthesia to consult with the patient for clearance. Dr. Butt informed and states she will see the patient before discharge. Telephone pre-op completed.
[2022-11-01] VITALS (11 sets, daily range): BP systolic 104–176; BP diastolic 61–92; PULSE 64–78; RESP 12–20; TEMP 36.5–36.7; O2SAT 93–98
[2022-11-01] MEDS: sodium chloride 0.9% 1,000 ML 30 ML IV (10:57)
[2022-11-01] MEDS: fentaNYL 50 mcg/mL INJ 2mL 25 MCG IVP (11:18)
--- NOTE | 2022-11-01 12:12 | W.PM.OPSUD ---
Surgery/Procedure H&P Update DATE OF PROCEDURE: November 01, 2022 DATE H&P PERFORMED: 10/13/22 H&P UPDATE INFORMATION: I have reviewed H&P completed within last 30 days, I have examined patient prior to procedure and No changes to prior documentation PREOP DIAGNOSIS: Gallbladder mass PLANNED PROCEDURE: Operation Date: 11/01/22 13:10 Proposed Procedures p [id number] lap gabe Q44.1(Not Applicable) - Ward Petit DO
[2022-11-01] MEDS: ceFAZolin 2,000 MG in sodium chloride 0.9% (plus) 50 ML 100 MG IV (12:53)
[2022-11-01] MEDS: lidocaine-epi 2% 20 mL INJ INJECTION (13:16)
[2022-11-01 13:34] LABS: Blood Urea Nitrogen 57 mg/dL (8-23); Calcium 7.9 mg/dL (8.5-10.5); Carbon Dioxide 22 mmol/L (22-29); Chloride 102 mmol/L (98-107); Creatinine Clr Calc Pharmacy 5.2805; Glomerular Filtration Rate 7.9 mL/min (90-130); Glucose 72 mg/dL (65-115); Osmolality Calculated 296 mOsm/kg (285-295); Sodium 136 mmol/L (136-145)
--- NOTE | 2022-11-01 14:09 | PM.OP ---
Operative Report Date of procedure: November 01, 2022 Pre-op diagnosis: Preop Diagnosis Gallbladder mass Post-op diagnosis: same Procedure done: Laparoscopic cholecystectomy Implants: None Specimens removed/disposition: Gallbladder with intraluminal mass Surgeon: Dr. Ward Petit DO Anesthesia: General Estimated blood loss (mL): 5 Complications: None apparent Brief History: This is a very pleasant 67-year-old female who was found to have a mass in her gallbladder. She is also having right upper quadrant pain and nausea. Cholecystectomy was indicated. The risk and benefits were explained and documented. Procedure: Patient was wheeled into the operative room and placed on the OR table in a supine position. Abdomen was inspected prepped and draped in usual sterile fashion. Time-out was performed and all present were in agreement. A 15 blade scalp was used to make a stab incision in the left upper quadrant and intra-abdominal insufflation was achieved using a Veress needle. After localizing the tissue incisions were made and a 5 millimeter trocar was placed into the umbilicus as well as 2 in the right upper quadrant. A 12 millimeter trocar was placed in the epigastrium. Gallbladder was grasped and elevated. The triangle of Calot was carefully dissected using blunt dissection and electrocautery until the triangle of Calot clearly identified. The cystic duct was clipped proximally and double clipped distally. The duct was then ligated proximally. The cystic artery was doubly clipped and ligated. The gallbladder was then removed from the liver bed using electrocautery. The gallbladder was removed from the abdomen using an Endo-Catch bag through the epigastric incision. The liver bed was inspected and small areas of bleeding were cauterized. The abdomen was irrigated and suctioned. The epigastric incision was closed at the fascia with 0 Vicryl and a Mario-Jodi in a zahrru-[id number] fashion. All ports removed. Skin was washed and dried. Incisions were closed with 4-0 Monocryl in a subcuticular interrupted fashion. Skin glue was applied. Patient tolerated the procedure well.
--- NOTE | 2022-11-01 15:03 | ANES.PAUD2 ---
Pre-Anesthetic Update Pre-Anesthetic Assessment: Date of Surgery/Procedure: 11/01/22 Preop Diagnosis: Gallbladder mass Proposed Procedure: Operation Date: 11/01/22 13:10 Proposed Procedures p [id number] lap gabe Q44.1(Not Applicable) - Ward Petit, DO Any changes to Pre-Anesthetic Assessment?: No Last Intake: Intake Last Liquid Date 10/31/22 Last Liquid Time 11:30 Last Solid Date 10/31/22 Last Solid Time 23:30 Labs Last 48hrs: BMP 11/01/22 12:48 Sodium 136 Potassium 4.0 Chloride 102 Carbon Dioxide 22 BUN 57 H Creatinine 5.4 H Glucose 72 Calcium 7.9 L Vitals: Temperature 98.1 F 11/01/22 14:51 Temperature Source Temporal Artery S can 11/01/22 14:51 Pulse Rate 76 11/01/22 15:01 Respiratory Rate 16 11/01/22 15:01 Respiratory Effort Spontaneous, Non- Labored 11/01/22 11:18 Respiratory Depth Normal 11/01/22 11:18 Respiratory Patter n Normal 11/01/22 11:18 Blood Pressure 153/79 11/01/22 15:01 Blood Pressure Latisha n 103 11/01/22 15:01 Pulse Oximetry 93 11/01/22 15:01 Oxygen Delivery Me thod Nasal Cannula 11/01/22 15:01 Oxygen Flow Rate 2 11/01/22 15:01 Exam: Pre-Anes Outpt Exam: alert, oriented x 3 and regular rate & rhythm Cardiac Studies: Echocardiogram 09/21/22 Echocardiogram Limited Views 08/22/22 Echocardiogram Ultrasound 08/19/20 Sestamibi Stress Test (Cardiology) 10/26/22
--- NOTE | 2022-11-01 15:19 | ANE.PACU2 ---
Inpatient post-anesthesia follow up: Airway intact: Yes Vital signs: Temperature 98.1 F Pulse Rate 76 Respiratory Rate 16 Blood Pressure 153/79 Pulse Oximetry 93 Oxygen Delivery Me thod Nasal Cannula Oxygen Flow Rate 2 Fraction of Inspir ed Oxygen Hydration adequate: Yes Nausea and vomiting: No Pain level: 3 Mental status: Baseline Additional Comments: Some skin tears.
[2022-11-01] MEDS: oxyCODONE-APAP 5-325 mg Tablet 1.5 TAB PO (15:30)
[2022-11-01] MEDS: HYDROmorphone 1 mg/mL INJ 1 mL 0.5 MG IVP (15:34)
== END 2022-11-01 16:11 | disposition home or self-care (01) ==
PROVIDERS: Anesthesiology; PCP Nurse Practitioner Family; Visit Provider Surgery
PROC: 0FT44ZZ Resection of Gallbladder, Percutaneous Endoscopic Approach (ICD-10-PCS; CPT 47562; principal; 2022-11-01 13:00)
DX: K80.10 Calculus of gallbladder with chronic cholecystitis without obstruction (principal); I12.0 Hypertensive chronic kidney disease with stage 5 chronic kidney disease or end stage renal disease; N18.6 End stage renal disease; I50.9 Heart failure, unspecified; J44.9 Chronic obstructive pulmonary disease, unspecified; E78.00 Pure hypercholesterolemia, unspecified; E03.9 Hypothyroidism, unspecified; I25.2 Old myocardial infarction; Z87.891 Personal history of nicotine dependence; Z79.52 Long term (current) use of systemic steroids; Z79.899 Other long term (current) drug therapy; Z99.2 Dependence on renal dialysis; Z88.2 Allergy status to sulfonamides
CPT/HCPCS: 47562; 36415; 80048; 88304; J0690; J1100; J1170; J1885; J2250; J2405; J2704; J2710; J3010; J3490; J7030; P9045

== ENCOUNTER 2022-11-09 09:44 | Emergency (ER) | payer MEDICARE, MEDICAID, SELFPAY ==
[2022-11-09 09:46] VITALS: BP 151/75; PULSE 86; RESP 14; TEMP 36.6; O2SAT 97; BMI 13.4
--- NOTE | 2022-11-09 09:50 | XRR_ITS ---
PROCEDURE INFORMATION: Exam: XR Chest Exam date and time: 11/09/2022 10:27 AM Age: 67 years old Clinical indication: Cough and dyspnea and shortness of breath; Prior surgery; Surgery type: Aaa renal stent; Additional info: Dyspnea/cough TECHNIQUE: Imaging protocol: Radiologic exam of the chest. Views: 1 view. COMPARISON: CR XR chest 1V portable [id number] 10/12/2022 10:47 AM FINDINGS: Tubes, catheters and devices: There is a dialysis catheter projecting within the right atrium unchanged. Lungs: Unremarkable. No consolidation. Pleural spaces: Unremarkable. No pleural effusion. No pneumothorax. Heart/Mediastinum: Unremarkable. No cardiomegaly. Vasculature: There is a vascular stent at the junction of the thoracic-abdominal aorta unchanged. Bones/joints: Unremarkable for age. XR/XR chest 1V portable [id number] IMPRESSION: Stable chest. No active disease.
[2022-11-09 10:18] LABS: Blood Gas Allen Test Pos; Blood Gas Sample Site Radial, left; Blood Gas Sample Type Arterial; Ionized Calcium Level - ABG 1.2 mmol/L (1.1-1.4)
[2022-11-09 10:20] LABS: ABG PCO2 41.4 mmHg (35-45); ABG PH Result 7.41 (7.35-7.45); Arterial Blood Gas Hematocrit 21.8 % (37-47); Base Excess ABG 1.6 mmol/L (-2.0-2.0); HCO3 ABG 26.3 mmol/L (22-26); HGB O2 Sat 88.1 % (95-100); Methemoglobin 0.8 % (0.4-1.5); Oxygen Saturation ABG 90.7; PO2 ABG 54.3 mmHg (80.0-100.0); Potassium Level - ABG 4.1 mmol/L (3.5-5.0); Total Hemoglobin 7.1 g/dL (12-16)
[2022-11-09 10:21] LABS: Alveolar-Arterial Oxygen Gradi 8.5 mmHg (5-10); Blood Gas Operator Identificat MONRO; Oxygen Device NC
--- NOTE | 2022-11-09 10:37 | ED_ITS ---
HPI - SOB/Dyspnea General: Chief Complaint: Shortness of Breath/Dyspnea Stated Complaint: RESPIRATORY DISTRESS Time Seen by Provider: 11/09/22 09:50 Source: patient Mode of arrival: EMS History of Present Illness: HPI Narrative: 67-year-old female presents emergency room with complaint of minimally produ ctive cough that began yesterday. She has not had any fever sweats or chills what mucus she has produced has been discolored, different than her baseline. She was given Solu-Medrol and nebulizers in route which she reports did improve her symptoms. When I first evaluated the patient she is on a half a liter of oxygen and satting in the mid 90s. She reports she normally wears 2 L at rest and increases it to 4 L with activity. MD elicited complaint: shortness of breath and cough Pertinent past history: COPD Onset (ago): day(s) (1) Exacerbating factors: nothing and coughing Relieving factors: oxygen, rest and bronchodilators Known history of: COPD Associated symptoms: Deny abdominal pain, chest congestion, chest pain, cough, diaphoresis, dizziness, extremity pain, fever(s), hemoptysis, lightheadedness, myalgias, nausea, orthopnea, palpitations, paresthesias, polydipsia, polyuria, rash, sense of impending doom, syncope or vomiting Treatment prior to arrival: oxygen, bronchodilator and other (Steroids) Review of Systems Const: Reports: fatigue and malaise; Denies: fever(s), chills or diaphoresis ENMT: Denies: throat pain, ear or mastoid pain, nasal discharge or nasal congestion Card: Denies: chest pain, palpitations, lightheadedness, syncope or orthopnea Resp: Reports: dyspnea, non-productive cough and wheezing; Denies: hemoptysis or chest congestion GI: Denies: abdominal pain, nausea or vomiting : Denies: flank pain, difficulty voiding, dysuria, urinary frequency or urinary urgency Musc: Denies: extremity pain Skin/Breast: Denies: rash or pruritus Neuro: Denies: dizziness Endo: Denies: polyuria or polydipsia [facility], [facility] ED PFSH: Medical History AAA (abdominal aortic aneurysm) 4.1 x 4.4 x 5.7 cm 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 Anemia Anxiety attack Atypical chest pain Brain aneurysm Chest pain Chest pain Chronic kidney disease CKD stage III, solitary kidney Chronic migraine without aura, intractable, with status migrainosus Congestive heart failure COPD (chronic obstructive pulmonary disease) COPD with acute exacerbation Depression Elevated troponin End-stage renal disease needing dialysis Endoleak post (EVAR) endovascular aneurysm repair Fear associated with healthcare Gallbladder abnormality GERD (gastroesophageal reflux disease) History of stent insertion of renal artery Hypercholesteremia Hypertension Hypertensive urgency Resolved Hyponatremia Hypothyroidism Inguinal swelling Major depressive disorder, recurrent severe without psychotic features Malnourished Normal colonoscopy NSTEMI (non-ST elevated myocardial infarction) Osteoporosis Peripheral vascular disease Protein-energy malnutrition Psychiatric care Restless leg Solitary kidney Surgical History H/O: hysterectomy History of renal stent Herculink stent History of repair of aneurysm of abdominal aorta using endovascular stent graft Hx of colonoscopy with polypectomy Age 62 Hx of tonsillectomy S/P appendectomy Status post endovascular aneurysm repair (EVAR) Family History Mother CAD (coronary artery disease) Chronic kidney disease (CKD) Dementia Stroke Father CAD (coronary artery disease) Cancer Diabetes Brother CAD (coronary artery disease) Cancer Lung disease Grandfather Cancer Grandmother Diabetes Family/Other Lung disease Suicide Other Hypertension Denies family history of Clotting disorder Anesthesia complication Bleeding disorder Social History Smoking and tobacco status: former smoker Quit status (tobacco): has quit using tobacco Year quit tobacco: 2005 PPD x 35 Years Former quit date comment: Started at age 18 Second hand smoke exposure: No Smoking risk assessment/counseling performed?: No Alcohol intake: never Desire information about alcohol rehabilitation?: No Counseling given: No Substance/Drug Use: never Desire information about substance/drug rehabilitation?: No Counseling given: No Adopted: No Caregiver/support person: No Lives independently: Yes Household members: family and children Housing: House Marital status: / Marital status details: 2005 Number of children: 12 Number of grandchildren: 4 Highest education level completed: Master's Degree Education level details: Criminal Justice service: No Current occupational status: disabled Current occupational exposures/hazards: No Pets and animals: Yes Pets & animals: cat(s), dog(s) and farm animals Farm Animals: cattle Leisure activites: reading and other Leisure activities details: watch TV Sexually active: No Do you think of yourself as: Straight/Heterosexual Current gender identity: Female Yudy/Methodist: [employer] Special yudy needs: No Agree to transfusion: Yes Financial difficulty paying for basics: Somewhat Hard Female Reproductive History: Para: 0 Spontaneous abortions: Yes Physical Exam Const: ORIENTATION/CONSCIOUSNESS: Yes awake, Yes oriented to person, Yes oriented to place and Yes oriented to time HENMT: COMMON NORMALS: normocephalic, atraumatic and hearing grossly normal bilaterally HEAD & SCALP: normocephalic and atraumatic Resp: COMMON NORMALS: normal respiratory effort, No retractions and No use of accessory muscles AUSCULTATION: rhonchi and wheezes Cardio: COMMON NORMALS: regular rate, regular rhythm and No murmurs present (Cardio) RATE: regular rate RHYTHM: regular rhythm GI: COMMON NORMALS: Soft to palpation and No hepatosplenomegaly present AUSCULTATION: Yes normoactive bowel sounds PALPATION: Yes Soft to palpation, No Tenderness to palpation present (GI), No Guarding due to palpation present (GI) and Yes No hepatosplenomegaly present Extremity: COMMON NORMALS: normal to inspection, capillary refill normal, no clubbing, cyanosis or edema, no calf tenderness and no pedal edema Neuro: SENSORIUM/ORIENTATION: Yes oriented to person, Yes oriented to place and Yes oriented to time Skin: COMMON NORMALS: no rashes or lesions noted GENERAL SKIN EXAM: no rashes or lesions noted Course Vital Signs: Vital signs: Vital Signs Temperature 97.9 F 11/09/22 09:46 Pulse Rate 86 11/09/22 09:46 Respiratory Rate 14 11/09/22 09:46 Blood Pressure 151/75 11/09/22 09:46 Pulse Oximetry 97 11/09/22 09:46 Oxygen Delivery Me thod Nasal Cannula 11/09/22 09:46 Oxygen Flow Rate 4 11/09/22 09:46 MDM - SOB/Dyspnea Medical Decision Making Acute exacerbation COPD improved after nebulizers and steroids. We will discharge patient to dialysis clinic for usual run of dialysis. Continue regular use of albuterol nebs put on a course of prednisone taper and doxycycline return to the emergency room if she has worsening problems. Medical Records I reviewed the patient's medical records. Lab Data I reviewed the patient's lab results. 11/09/22 11:57 11/09/22 11:57 Labs/Radiology: Radiology Impressions Chest X-Ray 11/09/22 09:50 IMPRESSION: Stable chest. No active disease. Laboratory Results WBC 5.5 10^3/uL (4.0-10.0) 11/09/22 11:57 RBC 2.69 10^6/uL (4.1-5.3) L 11/09/22 11:57 Hgb 8.4 g/dL (11.5-15.3) L 11/09/22 11:57 Hct 28.2 % (37.0-47.0) L 11/09/22 11:57 MCV 104.8 fl (81-99) H 11/09/22 11:57 MCH 31.2 pg (28.0-34.0) 11/09/22 11:57 MCHC 29.8 g/dL (30.0-36.0) L 11/09/22 11:57 RDW 15.5 % (12.1-15.1) H 11/09/22 11:57 Plt Count 149 10^3/cmm (130-400) 11/09/22 11:57 MPV 9.3 fL (7.4-10.4) 11/09/22 11:57 Neut % (Auto) 88.6 % 11/09/22 11:57 Lymph % (Auto) 9.5 % 11/09/22 11:57 [place] % (Auto) 1.3 % 11/09/22 11:57 Eos % (Auto) 0.0 % 11/09/22 11:57 Baso % (Auto) 0.2 % 11/09/22 11:57 Neut # (Auto) 4.85 10^3/uL (1.8-7.7) 11/09/22 11:57 Lymph # (Auto) 0.5 10^3/uL (0.8-4.8) L 11/09/22 11:57 [place] # (Auto) 0.1 10^3/uL (0.2-0.9) L 11/09/22 11:57 Eos # (Auto) 0.0 10^3/uL (0.0-0.8) 11/09/22 11:57 Baso # (Auto) 0.0 10^3/uL (0.0-0.1) 11/09/22 11:57 Nucleated RBC % (auto) 0 % 11/09/22 11:57 Nucleated RBCs # 0.0 /100WBC 11/09/22 11:57 Specimen Type Arterial 11/09/22 10:05 Sample Site Radial, left 11/09/22 10:05 ABG pH 7.41 (7.35-7.45) 11/09/22 10:05 ABG pCO2 41.4 mmHg (35-45) 11/09/22 10:05 ABG pO2 54.3 mmHg (80.0-100.0) L 11/09/22 10:05 ABG HCO3 26.3 mmol/L (22-26) H 11/09/22 10:05 ABG O2 Saturation 90.7 11/09/22 10:05 ABG Base Excess 1.6 mmol/L (-2.0-2.0) 11/09/22 10:05 Roly Test Pos 11/09/22 10:05 A-a O2 Gradient 8.5 mmHg (5-10) 11/09/22 10:05 Hematocrit 21.8 % (37-47) L 11/09/22 10:05 Hgb O2 Saturation 88.1 % (95-100) L 11/09/22 10:05 Carboxyhemoglobin 2.0 %THgb (0.4-20.1) 11/09/22 10:05 Methemoglobin 0.8 % (0.4-1.5) 11/09/22 10:05 Total Hemoglobin 7.1 g/dL (12-16) L 11/09/22 10:05 Sodium 140.0 mmol/L (131-143) 11/09/22 10:05 Potassium 4.1 mmol/L (3.5-5.0) 11/09/22 10:05 Glucose 93.0 mg/dL (70-115) 11/09/22 10:05 Ionized Calcium 1.2 mmol/L (1.1-1.4) 11/09/22 10:05 O2 Delivery Device Nc 11/09/22 10:05 O2 Liters/Min 1.0 % 05/02/23 10:05 FiO2 24.0 % 11/09/22 10:05 Mud Logger ID [place] 11/09/22 10:05 Sodium 139 mmol/L (136-145) 11/09/22 11:57 Potassium 4.3 mmol/L (3.5-5.1) 11/09/22 11:57 Chloride 96 mmol/L (98-107) L 11/09/22 11:57 Carbon Dioxide 25 mmol/L (22-29) 11/09/22 11:57 Anion Gap 22.3 (5-19) H 11/09/22 11:57 BUN 47 mg/dL (8-23) H 11/09/22 11:57 Creatinine 6.1 mg/dL (0.5-0.9) H* 11/09/22 11:57 GFR Calculation 6.9 mL/min (90-130) L 11/09/22 11:57 Glucose 89 mg/dL (65-115) 11/09/22 11:57 Calculated Osmolality 300 mOsm/kg (285-295) H 11/09/22 11:57 Calcium 9.6 mg/dL (8.5-10.5) 11/09/22 11:57 Total Bilirubin 0.3 mg/dL (0.15-1.2) 11/09/22 11:57 AST 31 U/L (0-32) 11/09/22 11:57 ALT < 5 U/L (0-33) 11/09/22 11:57 Alkaline Phosphatase 103 U/L (35-105) 11/09/22 11:57 Total Protein 6.5 g/dL (6.6-8.7) L 11/09/22 11:57 Albumin 3.9 g/dL (3.5-5.2) 11/09/22 11:57 Globulin 2.6 g/dL (1.3-4.6) 11/09/22 11:57 Discharge Plan Discharge Patient Disposition: Home Clinical Impression: Acute exacerbation of chronic obstructive airways disease, Chronic kidney disease with 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 due to type 2 diabetes mellitus Condition: Stable Prescriptions: New doxycycline hyclate 100 mg capsule 100 mg PO BID 10 Days Qty: 20 0RF prednisone 20 mg tablet 20 mg PO TID Qty: 15 0RF Rx Instructions: 1 p.o. 3 times daily x3 days, 1 p.o. twice daily x2 days, 1 p.o. daily x2 days No Action epinephrine 0.3 mg/0.3 mL auto-injector 0.3 mg IM Q10M PRN (Reason: Allergic Reaction) Rx Instructions: for 2 doses montelukast 10 mg tablet 10 mg PO DAILY@08 Qty: 30 5RF nitroglycerin [Nitrostat] 0.4 mg tablet, sublingual 0.4 mg SUBLINGUAL Q5M PRN (Reason: Chest Pain) 30 Days Qty: 30 5RF buspirone 15 mg tablet 15 mg PO BID Qty: 60 2RF albuterol sulfate 2.5 mg /3 mL (0.083 %) solution for nebulization 2.5 mg INHALATION QID PRN (Reason: Shortness Of Breath) 30 Days Qty: 75 5RF prednisone 5 mg tablet 5 mg PO DAILY Qty: 30 3RF albuterol sulfate 90 mcg/actuation HFA aerosol inhaler 2 puff INHALATION 6XD PRN (Reason: Shortness Of Breath) Qty: 6.7 5RF ondansetron 8 mg tablet,disintegrating 8 mg PO Q8H PRN (Reason: nausea and vomiting) Qty: 90 0RF budesonide [Pulmicort] 0.5 mg/2 mL suspension for nebulization 0.5 mg inhalation BID Qty: 120 0RF Rx Instructions: NEEDS APPT PRIOR TO FURTHER REFILLS formoterol fumarate [Perforomist] 20 mcg/2 mL solution for nebulization 2 ml inhalation Q12H Qty: 120 0RF Rx Instructions: Needs appt for further refills. citalopram 40 mg tablet 40 mg PO DAILY@30 30 Days Qty: 30 2RF azithromycin 250 mg tablet 250 mg PO .COMPLEX 90 Days Qty: 45 0RF Rx Instructions: 250 mg PO on Tuesday; aspirin 81 mg tablet,delayed release (DR/EC) 81 mg PO DAILY@829 30 Days Qty: 30 5RF hydrocodone-acetaminophen 5-325 mg tablet 1 tab PO BID PRN (Reason: pain/dyspnea) 30 Days Qty: 60 0RF Hold Instructions: Resume on 11/06/22. fluticasone propionate [Flonase Allergy Relief] 50 mcg/actuation [place],Suspension 2 spray INTRANASAL DAILY PRN (Reason: Allergy Symptoms) ropinirole 1 mg tablet 1 mg PO BEDTIME hydroxyzine HCl 50 mg tablet 50 mg PO QID PRN (Reason: Anxiety) polyethylene glycol 3350 17 gram Powder In Packet 17 g PO DAILY PRN (Reason: constipation) Qty: 30 0RF RenaPlex-D 800 mcg-12.5 mg -2,000 unit tablet 1 tab PO QPM atorvastatin 40 mg tablet 40 mg PO QAM revefenacin 175 mcg/3 mL solution for nebulization 175 mcg inhalation QAM Rx Instructions: Needs appt for further refills. midodrine 5 mg Tablet 5 mg PO DAILY PRN (Reason: on day of dialysis for SBP less than 120 mmhg) Qty: 15 0RF liothyronine 5 mcg Tablet 10 mcg PO DAILY 30 Days Qty: 60 0RF levothyroxine 75 mcg Tablet 75 mcg PO QAM 30 Days Qty: 30 0RF isosorbide mononitrate 30 mg tablet extended release 24 hr 30 mg PO BID@08,16 Qty: 60 0RF metoprolol tartrate 50 mg tablet 50 mg PO BID Qty: 60 0RF sevelamer carbonate 0.8 gram Powder In Packet 0.4 g PO TID Hold Instructions: see nephrology Rx Instructions: must administer with a meal/food oxycodone-acetaminophen 7.5-325 mg tablet 1 tab PO Q6H PRN (Reason: pain) Qty: 20 0RF DOK 100 mg capsule 100 mg PO BID Qty: 14 0RF Discharge Orders: Discharge ED (Routine); Ordered 11/09/22 Ordered By: Brett Herman Referrals: Nancy Carrasco FNP-C [Primary Care Provider] - Discharge Diet: Usual diet Discharge Activity: Increase activity as tolerated Patient Instructions: Opioid Safety, Pain Management Activity Restrictions/Additional Instructions: You were seen today for exacerbation COPD recommend steroid taper and course of doxycycline continue your albuterol nebulizers as needed. From the emergency room recommend you be discharged to the dialysis clinic for your usual dialysis course. Coding Level of Care Code ED Semiconductor Engineer for Leann Crowley
--- NOTE | 2022-11-09 11:44 | ECG_ITS ---
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 Measurements Intervals [place] Rate: 77 P: 68 VA: 109 QRS: 79 QRSD: 74 T: 74 QT: 436 QTc: 496 Interpretive Statements SINUS RHYTHM WITH SHORT VA INTERVAL VOLTAGE CRITERIA FOR LVH [MEETS CRITERIA IN ONE OF: R(aVL), S(V1), R(V5), R(V5/V6)+S(V1)] Compared to ECG 10/19/2022 17:37:32 Short VA interval now present Left ventricular hypertrophy now present Myocardial infarct finding no longer present Electronically Signed On 11-10-2022 0:18:59 CDT by Guillermo Culver M.D. [email or web address]
[2022-11-09 12:14] LABS: Basophils % 0.2 %; Hematocrit 28.2 % (37.0-47.0); Hemoglobin 8.4 g/dL (11.5-15.3); Lymphocytes # 0.5 10^3/uL (0.8-4.8); Lymphocytes % 9.5 %; Mean Corpuscular HGB Conc 29.8 g/dL (30.0-36.0); Mean Corpuscular Hemoglobin 31.2 pg (28.0-34.0); Mean Corpuscular Volume 104.8 fl (81-99); Mean Platelet Volume 9.3 fL (7.4-10.4); Monocytes # 0.1 10^3/uL (0.2-0.9); Monocytes % 1.3 %; Neutrophils # 4.85 10^3/uL (1.8-7.7); Neutrophils % 88.6 %; Nucleated Red Blood Cells % 0 %; Platelet Count 149 10^3/cmm (130-400); Red Blood Count 2.69 10^6/uL (4.1-5.3); Red Cell Distribution Width 15.5 % (12.1-15.1); White Blood Count 5.5 10^3/uL (4.0-10.0)
[2022-11-09 12:34] LABS: Alanine Aminotransferase < 5 U/L (0-33); Albumin Level 3.9 g/dL (3.5-5.2); Alkaline Phosphatase 103 U/L (35-105); Anion Gap 22.3 (5-19); Aspartate Amino Transferase 31 U/L (0-32); Blood Urea Nitrogen 47 mg/dL (8-23); Calcium 9.6 mg/dL (8.5-10.5); Carbon Dioxide 25 mmol/L (22-29); Chloride 96 mmol/L (98-107); Globulin 2.6 g/dL (1.3-4.6); Glomerular Filtration Rate 6.9 mL/min (90-130); Glucose 89 mg/dL (65-115); Osmolality Calculated 300 mOsm/kg (285-295); Potassium 4.3 mmol/L (3.5-5.1); Sodium 139 mmol/L (136-145); Total Bilirubin 0.3 mg/dL (0.15-1.2); Total Protein 6.5 g/dL (6.6-8.7)
== END 2022-11-09 13:06 | disposition home or self-care (01) ==
PROVIDERS: Emergency Provider Family Medicine; PCP Nurse Practitioner Family
DX: J44.1 Chronic obstructive pulmonary disease with (acute) exacerbation (principal); E11.22 Type 2 diabetes mellitus with diabetic chronic kidney disease; I13.2 Hypertensive heart and chronic kidney disease with heart failure and with stage 5 chronic kidney disease, or end stage renal disease; I50.9 Heart failure, unspecified; N18.6 End stage renal disease; Z99.2 Dependence on renal dialysis; I25.2 Old myocardial infarction; Z87.891 Personal history of nicotine dependence; Z79.82 Long term (current) use of aspirin
CPT/HCPCS: 36415; 36600; 71045; 80051; 80053; 82330; 82805; 85025; 93005; 99285

== ENCOUNTER → 2022-11-17 14:51 | Outpatient (BNVA) | payer MEDICARE, MEDICAID, SELFPAY | PROVIDERS: PCP Nurse Practitioner Family; Visit Provider Surgery | DX: Z98.890 Other specified postprocedural states (principal); Z90.49 Acquired absence of other specified parts of digestive tract | CPT/HCPCS: 99024 ==

== ENCOUNTER 2022-11-26 15:54 | Inpatient (IN) | payer MEDICARE, MEDICAID, SELFPAY ==
[2022-11-26] VITALS (13 sets, daily range): BP systolic 145–194; BP diastolic 48–118; PULSE 66–79; RESP 15–22; TEMP 36.5–36.8; O2SAT 93–98; BMI 13.2
--- NOTE | 2022-11-26 15:59 | W.ED.SOB ---
HPI - SOB/Dyspnea General: Chief Complaint: Shortness of Breath/Dyspnea Stated Complaint: SOB Time Seen by Provider: 11/26/22 15:58 Source: patient Mode of arrival: ambulatory History of Present Illness: HPI Narrative: 67-year-old female with end-stage COPD as well as end-stage renal failure on dialysis presents to the emergency room with increasing shortness of breath mildly productive cough. Patient is very cachectic is chronically on oxygen. She does not have BiPAP at home unfortunately. On arrival here she is tachypneic and in moderate respiratory distress after initial evaluation and ABG was done patient was started on BiPAP. She is due for her regular dialysis run tomorrow. MD elicited complaint: shortness of breath and cough Pertinent past history: COPD Onset (ago): minute(s) Timing: constant Severity: moderate Exacerbating factors: nothing Relieving factors: nothing Known history of: COPD Associated symptoms: Deny abdominal pain, chest congestion, chest pain, cough, diaphoresis, dizziness, extremity pain, fever(s), hemoptysis, lightheadedness, myalgias, nausea, orthopnea, palpitations, paresthesias, polydipsia, polyuria, rash, sense of impending doom, syncope or vomiting Treatment prior to arrival: none Review of Systems Const: Denies: fever(s), chills, fatigue, malaise or diaphoresis ENMT: Denies: nasal congestion Card: Denies: chest pain, palpitations, lightheadedness, syncope or orthopnea Resp: Reports: dyspnea, non-productive cough and wheezing; Denies: hemoptysis or chest congestion GI: Denies: abdominal pain, nausea or vomiting : Denies: flank pain, difficulty voiding, dysuria, urinary frequency or urinary urgency Musc: Denies: extremity pain or extremity swelling Skin/Breast: Denies: rash or pruritus Neuro: Denies: dizziness Endo: Denies: polyuria or polydipsia PFSH ED PFSH: Medical History AAA (abdominal aortic aneurysm) 4.1 x 4.4 x 5.7 cm 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 Acute on chronic diastolic (congestive) heart failure Anemia Anxiety attack Atypical chest pain Brain aneurysm Chest pain Chest pain Chronic kidney disease CKD stage III, solitary kidney Chronic migraine without aura, intractable, with status migrainosus Congestive heart failure COPD (chronic obstructive pulmonary disease) COPD with acute exacerbation Depression Elevated troponin End-stage renal disease needing dialysis Endoleak post (EVAR) endovascular aneurysm repair Fear associated with healthcare Gallbladder abnormality GERD (gastroesophageal reflux disease) History of stent insertion of renal artery Hypercholesteremia Hypertension Hypertensive urgency Resolved Hyponatremia Hypothyroidism Inguinal swelling Major depressive disorder, recurrent severe without psychotic features Malnourished Normal colonoscopy NSTEMI (non-ST elevated myocardial infarction) Osteoporosis Peripheral vascular disease Protein-energy malnutrition Psychiatric care Restless leg Solitary kidney Surgical History H/O: hysterectomy History of laparoscopic cholecystectomy History of renal stent Herculink stent History of repair of aneurysm of abdominal aorta using endovascular stent graft Hx of colonoscopy with polypectomy Age 62 Hx of tonsillectomy S/P appendectomy Status post endovascular aneurysm repair (EVAR) Family History Mother CAD (coronary artery disease) Chronic kidney disease (CKD) Dementia Stroke Father CAD (coronary artery disease) Cancer Diabetes Brother CAD (coronary artery disease) Cancer Lung disease Grandfather Cancer Grandmother Diabetes Family/Other Lung disease Suicide Other Hypertension Denies family history of Clotting disorder Anesthesia complication Bleeding disorder Social History Smoking and tobacco status: former smoker Quit status (tobacco): has quit using tobacco Year quit tobacco: 2005 - PPD x 35 Years Former quit date comment: Started at age 18 Second hand smoke exposure: No Smoking risk assessment/counseling performed?: No Alcohol intake: never Desire information about alcohol rehabilitation?: No Counseling given: No Substance/Drug Use: never Desire information about substance/drug rehabilitation?: No Counseling given: No Adopted: No Caregiver/support person: No Lives independently: Yes Household members: family and children Housing: House Marital status: / Marital status details: 2005 Number of children: 12 Number of grandchildren: 4 Highest education level completed: Master's Degree Education level details: Criminal Justice service: No Current occupational status: disabled Current occupational exposures/hazards: No Pets and animals: Yes Pets & animals: cat(s), dog(s) and farm animals Farm Animals: cattle Leisure activites: reading and other Leisure activities details: watch TV Sexually active: No Do you think of yourself as: Straight/Heterosexual Current gender identity: Female Yudy/Nondenominational: [employer] Special yudy needs: No Agree to transfusion: Yes Financial difficulty paying for basics: Somewhat Hard Female Reproductive History: Para: 0 Spontaneous abortions: Yes Physical Exam Const: GENERAL APPEARANCE: cooperative NUTRITIONAL APPEARANCE: cachectic ORIENTATION/CONSCIOUSNESS: Yes awake, Yes oriented to person, Yes oriented to place and Yes oriented to time HENMT: COMMON NORMALS: normocephalic, atraumatic and hearing grossly normal bilaterally HEAD & SCALP: normocephalic and atraumatic Resp: AUSCULTATION: rhonchi, wheezes and diminished lung sounds Cardio: COMMON NORMALS: regular rate, regular rhythm and No murmurs present (Cardio) RATE: regular rate RHYTHM: regular rhythm GI: COMMON NORMALS: Soft to palpation and No hepatosplenomegaly present AUSCULTATION: Yes normoactive bowel sounds PALPATION: Yes Soft to palpation, No Tenderness to palpation present (GI), No Guarding due to palpation present (GI) and Yes No hepatosplenomegaly present Extremity: COMMON NORMALS: normal to inspection, capillary refill normal, no clubbing, cyanosis or edema, no calf tenderness and no pedal edema Neuro: SENSORIUM/ORIENTATION: Yes oriented to person, Yes oriented to place and Yes oriented to time Skin: COMMON NORMALS: no rashes or lesions noted GENERAL SKIN EXAM: no rashes or lesions noted Course Vital Signs: Vital signs: Vital Signs Temperature 97.8 F 11/28/22 03:00 Pulse Rate 72 11/28/22 08:00 Respiratory Rate 22 H 11/28/22 08:00 Blood Pressure 144/58 11/28/22 07:00 Pulse Oximetry 96 11/28/22 08:00 Oxygen Delivery Me thod Nasal Cannula 11/28/22 08:00 Oxygen Flow Rate 3 11/28/22 08:00 Fraction of Inspir ed Oxygen 30 11/28/22 03:09 MDM - SOB/Dyspnea Medical Decision Making Exacerbation COPD with mild hypercapnia. BiPAP has improved her symptoms. We will admit discussed with hospitalist aggressive pulmonary toilet consult nephrology. Medical Records I reviewed the patient's medical records. Lab Data I reviewed the patient's lab results. 11/28/22 06:00 11/28/22 06:00 Labs/Radiology: Radiology Impressions Chest X-Ray 11/26/22 16:43 IMPRESSION: No acute findings. Laboratory Results WBC 12.8 10^3/uL (4.0-10.0) H 11/26/22 16:20 RBC 4.75 10^6/uL (4.1-5.3) 11/26/22 16:20 Hgb 14.1 g/dL (11.5-15.3) 11/26/22 16:20 Hct 49.9 % (37.0-47.0) H 11/26/22 16:20 MCV 105.1 fl (81-99) H 11/26/22 16:20 MCH 29.7 pg (28.0-34.0) 11/26/22 16:20 MCHC 28.3 g/dL (30.0-36.0) L 11/26/22 16:20 RDW 16.7 % (12.1-15.1) H 11/26/22 16:20 Plt Count 142 10^3/cmm (130-400) 11/26/22 16:20 MPV 9.9 fL (7.4-10.4) 11/26/22 16:20 Neut % (Auto) 69.9 % 11/26/22 16:20 Lymph % (Auto) 26.9 % 11/26/22 16:20 Ballard % (Auto) 2.1 % 11/26/22 16:20 Eos % (Auto) 0.0 % 11/26/22 16:20 Baso % (Auto) 0.4 % 11/26/22 16:20 Neut # (Auto) 8.98 10^3/uL (1.8-7.7) H 11/26/22 16:20 Lymph # (Auto) 3.5 10^3/uL (0.8-4.8) 11/26/22 16:20 Ballard # (Auto) 0.3 10^3/uL (0.2-0.9) 11/26/22 16:20 Eos # (Auto) 0.0 10^3/uL (0.0-0.8) 11/26/22 16:20 Baso # (Auto) 0.1 10^3/uL (0.0-0.1) 11/26/22 16:20 Nucleated RBC % (auto) 0.3 % 11/26/22 16:20 Nucleated RBCs # 0.0 /100WBC 11/26/22 16:20 Specimen Type Arterial 11/26/22 16:26 Sample Site Radial, right 11/26/22 16:26 ABG pH 7.30 (7.35-7.45) L 11/26/22 16:26 ABG pCO2 46.4 mmHg (35-45) H 11/26/22 16:26 ABG pO2 89.7 mmHg (80.0-100.0) 11/26/22 16:26 ABG HCO3 22.6 mmol/L (22-26) 11/26/22 16: ABG O2 Saturation 95.7 11/26/22 16:26 ABG Base Excess -4.1 mmol/L (-2.0-2.0) L 11/26/22 16:26 Roly Test Pos 11/26/22 16:26 A-a O2 Gradient 10.5 mmHg (5-10) H 11/26/22 16:26 Hematocrit 40.7 % (37-47) 11/26/22 16:26 Hgb O2 Saturation 94.7 % (95-100) L 11/26/22 16:26 Carboxyhemoglobin 0.9 %THgb (0.4-20.1) 11/26/22 16:26 Methemoglobin 0.2 % (0.4-1.5) L 11/26/22 16:26 Total Hemoglobin 13.3 g/dL (12-16) 11/26/22 16:26 Sodium 140.0 mmol/L (131-143) 11/26/22 16:26 Potassium 4.5 mmol/L (3.5-5.0) 11/26/22 16:26 Glucose 70.0 mg/dL (70-115) 11/26/22 16:26 Ionized Calcium 1.2 mmol/L (1.1-1.4) 11/26/22 16:26 O2 Delivery Device Nc 11/26/22 16:26 O2 Liters/Min 3.0 % 11/26/22 16:26 FiO2 32.0 % 11/26/22 16:26 Gunite Mixer ID Amh 11/26/22 16:26 Sodium 140 mmol/L (136-145) 11/26/22 16:20 Potassium 4.7 mmol/L (3.5-5.1) 11/26/22 16:20 Chloride 100 mmol/L (98-107) 11/26/22 16:20 Carbon Dioxide 22 mmol/L (22-29) 11/26/22 16:20 Anion Gap 22.7 (5-19) H 11/26/22 16:20 BUN 31 mg/dL (8-23) H 11/26/22 16:20 Creatinine 5.0 mg/dL (0.5-0.9) H 11/26/22 16:20 GFR Calculation 8.7 mL/min (90-130) L 11/26/22 16:20 Glucose 70 mg/dL (65-115) 11/26/22 16:20 Calculated Osmolality 295 mOsm/kg (285-295) 11/26/22 16:20 Calcium 8.1 mg/dL (8.5-10.5) L 11/26/22 16:20 Total Bilirubin 0.3 mg/dL (0.15-1.2) 11/26/22 16:20 AST 33 U/L (0-32) H 11/26/22 16:20 ALT 19 U/L (0-33) 11/26/22 16:20 Alkaline Phosphatase 95 U/L (35-105) 11/26/22 16:20 Total Protein 6.4 g/dL (6.6-8.7) L 11/26/22 16:20 Albumin 4.0 g/dL (3.5-5.2) 11/26/22 16:20 Globulin 2.4 g/dL (1.3-4.6) 11/26/22 16:20 Hep Bs Antigen Non-reactive (Nonreactive) 11/26/22 16:20 Hep Bs Antibody 40.6 (11.5-1000) 11/26/22 16:20 Hep B Core Total Ab Non-reactive (Nonreactive) 11/26/22 16:20 Discharge Plan Discharge Patient Disposition: Placed in Observation Admit Provider: Ruperto Mejia Clinical Impression: Acute and chronic respiratory failure with hypercapnia, Chronic kidney disease with 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 due to type 2 diabetes mellitus, Protein calorie malnutrition, End stage COPD Coding Level of Care Code ED Epic Application Coordinator for Dexg Keo
[2022-11-26] MEDS: ipratropium-albuterol 3 mL Neb INHALATION (16:21)
[2022-11-26 16:30] LABS: Basophils # 0.1 10^3/uL (0.0-0.1); Basophils % 0.4 %; Hematocrit 49.9 % (37.0-47.0); Hemoglobin 14.1 g/dL (11.5-15.3); Lymphocytes # 3.5 10^3/uL (0.8-4.8); Lymphocytes % 26.9 %; Mean Corpuscular HGB Conc 28.3 g/dL (30.0-36.0); Mean Corpuscular Hemoglobin 29.7 pg (28.0-34.0); Mean Corpuscular Volume 105.1 fl (81-99); Mean Platelet Volume 9.9 fL (7.4-10.4); Monocytes # 0.3 10^3/uL (0.2-0.9); Monocytes % 2.1 %; Neutrophils # 8.98 10^3/uL (1.8-7.7); Neutrophils % 69.9 %; Nucleated Red Blood Cells % 0.3 %; Platelet Count 142 10^3/cmm (130-400); Red Blood Count 4.75 10^6/uL (4.1-5.3); Red Cell Distribution Width 16.7 % (12.1-15.1); White Blood Count 12.8 10^3/uL (4.0-10.0)
[2022-11-26 16:38] LABS: ABG PCO2 46.4 mmHg (35-45); Alveolar-Arterial Oxygen Gradi 10.5 mmHg (5-10); Arterial Blood Gas Hematocrit 40.7 % (37-47); Base Excess ABG -4.1 mmol/L (-2.0-2.0); Blood Gas Allen Test Pos; Blood Gas Operator Identificat AMH; Blood Gas Sample Site Radial, right; Blood Gas Sample Type Arterial; Carboxyhemoglobin 0.9 %THgb (0.4-20.1); HCO3 ABG 22.6 mmol/L (22-26); HGB O2 Sat 94.7 % (95-100); Ionized Calcium Level - ABG 1.2 mmol/L (1.1-1.4); Methemoglobin 0.2 % (0.4-1.5); Oxygen Device NC; Oxygen Saturation ABG 95.7; PO2 ABG 89.7 mmHg (80.0-100.0); Potassium Level - ABG 4.5 mmol/L (3.5-5.0); Total Hemoglobin 13.3 g/dL (12-16)
--- NOTE | 2022-11-26 16:43 | XRR_ITS ---
PROCEDURE INFORMATION: Exam: XR Chest Exam date and time: 11/26/2022 4:58 PM Age: 67 years old Clinical indication: Cough; Additional info: Dyspnea/cough TECHNIQUE: Imaging protocol: Radiologic exam of the chest. Views: 1 view. COMPARISON: CR XR chest 1V portable [id number] 11/09/2022 10:27 AM FINDINGS: Tubes, catheters and devices: Tunneled right IJ dialysis catheter with tip over the upper right atrium. Lungs: Minimal atelectasis in the lung bases. No consolidation. Probable emphysema. Pleural spaces: Unremarkable. No pleural effusion. No pneumothorax. Heart/Mediastinum: Unremarkable. No cardiomegaly. Vasculature: Stents in the distal thoracic aorta and abdominal aorta. Bones/joints: Old left rib fractures. No acute fracture. XR/XR chest 1V portable [id number] IMPRESSION: No acute findings.
[2022-11-26 16:53] LABS: Alanine Aminotransferase 19 U/L (0-33); Alkaline Phosphatase 95 U/L (35-105); Anion Gap 22.7 (5-19); Aspartate Amino Transferase 33 U/L (0-32); Blood Urea Nitrogen 31 mg/dL (8-23); Calcium 8.1 mg/dL (8.5-10.5); Carbon Dioxide 22 mmol/L (22-29); Chloride 100 mmol/L (98-107); Globulin 2.4 g/dL (1.3-4.6); Glomerular Filtration Rate 8.7 mL/min (90-130); Glucose 70 mg/dL (65-115); Osmolality Calculated 295 mOsm/kg (285-295); Potassium 4.7 mmol/L (3.5-5.1); Sodium 140 mmol/L (136-145); Total Bilirubin 0.3 mg/dL (0.15-1.2); Total Protein 6.4 g/dL (6.6-8.7)
[2022-11-26] MEDS: sodium chloride 0.9% 500 ML 999 ML IV (17:04)
--- NOTE | 2022-11-26 17:11 | PC.NURSE ---
PT PLACED ON BIPAP BY RT. 02 30%
--- NOTE | 2022-11-26 17:37 | P.HP_ITS ---
Providers/Chief Complaint Primary Care Provider: HERBERT Masters Chief Complaint: SOB History of Present Illness Hali James is a 67 year old female who has a multiple admissions in the past for COPD exacerbation, her previous admission for laparoscopic cholecystectomy prior to that she was treated for NSTEMI and dobutamine stress test was unremarkable, she also got treated for hospital-acquired pneumonia presenting today with chief complaint worsening of shortness of breath. In the ER she has been diagnosed with COPD exacerbation. Patient is dialysis dependent and signal disease, EF is preserved. Patient is stating that at baseline she uses 2 to 3 L but on exertion sometimes 4 L, she has not noticed any fever, she has quit smoking, she remains full code stating that she would like to live to see her grandkids grow up She does note she has pretty bad COPD and if she ends up on a ventilator she might not be able to get extubated She uses BiPAP at nighttime Review of Systems Eyes: Denies: change in vision ENMT: Denies: throat pain Card: Denies: chest pain Resp: Reports: dyspnea GI: Denies: abdominal pain : Denies: flank pain Musc: Denies: neck pain Skin/Breast: Denies: rash Neuro: Reports: headache(s) Psych: Reports: anxiety Endo: Denies: polyuria Bill/Lymph: Denies: easy bruising Medications/Allergies Home Medications Medication Instructions Recorded Confirmed Last Taken Type fluticasone propionate 50 2 spray intranasal DAILY PRN 02/21/20 11/26/22 10/18/22 History mcg/actuation nasal Allergy Symptoms spray,suspension (Flonase Allergy Relief) epinephrine 0.3 mg/0.3 mL 0.3 mg IM Q10M PRN Allergic 10/16/20 11/26/22 Unknown History injection, auto-injector Reaction nitroglycerin 0.4 mg sublingual 0.4 mg sublingual Q5M PRN Chest 04/05/22 11/26/22 06/12/22 Rx tablet (Nitrostat) Pain 30 days #30 tabs sevelamer carbonate 0.8 gram oral 0.4 g PO TID 06/12/22 11/26/22 11/26/22 08:30 History powder packet ondansetron 8 mg disintegrating 8 mg PO Q8H PRN nausea and 06/16/22 11/26/22 10/29/22 Rx tablet vomiting #90 tabs budesonide 0.5 mg/2 mL suspension 0.5 mg (2 mL) inhalation BID #120 06/21/22 11/26/22 11/26/22 08:30 Rx for nebulization (Pulmicort) mL formoterol fumarate 20 mcg/2 mL 2 ml inhalation Q12H #120 mL 06/21/22 11/26/22 11/26/22 08:30 Rx solution for nebulization (Perforomist) citalopram 40 mg tablet 40 mg PO DAILY@0830 30 days #30 07/01/22 11/26/22 11/26/22 08:30 Rx tabs azithromycin 250 mg tablet 250 mg PO .COMPLEX COPD 90 days 07/06/22 11/26/22 11/26/22 08:30 Rx #45 tabs aspirin 81 mg tablet,delayed 81 mg PO DAILY@0830 30 days #30 08/18/22 11/26/22 11/26/22 08:30 Rx release tabs hydroxyzine HCl 50 mg tablet 50 mg PO QID PRN Anxiety 08/21/22 11/26/22 10/29/22 History ropinirole 1 mg tablet 1 mg PO BEDTIME 08/21/22 11/26/22 11/25/22 20:00 History polyethylene glycol 3350 17 gram 17 g PO DAILY PRN constipation #30 08/25/22 11/26/22 11/26/22 08:30 Rx oral powder packet ea vit B,C-folic ac 800 mcg-zinc 12.5 1 tab PO QPM 09/08/22 11/26/22 11/25/22 20:00 History mg-selen-D3 2,000 unit-vit E tablet (RenaPlex-D) atorvastatin 40 mg tablet 40 mg PO QAM 09/16/22 11/26/22 11/26/22 08:30 History revefenacin 175 mcg/3 mL solution 175 mcg inhalation QAM 09/16/22 11/26/22 11/26/22 08:30 History for nebulization buspirone 15 mg tablet 15 mg PO BID #60 tabs 09/27/22 11/26/22 11/26/22 08:30 Rx hydrocodone 5 mg-acetaminophen 325 1 tab PO BID PRN pain/dyspnea 1 10/01/22 11/26/22 Unknown Rx mg tablet month #60 tabs albuterol sulfate 2.5 mg/3 mL 2.5 mg (3 mL) inhalation QID PRN 10/13/22 11/26/22 11/26/22 14:00 Rx (0.083 %) solution for nebulization Shortness Of Breath 30 days #75 mL albuterol sulfate 90 mcg/actuation 2 puff inhalation 6XD PRN 10/13/22 11/26/22 11/26/22 14:00 Rx aerosol inhaler Shortness Of Breath #6.7 grams prednisone 5 mg tablet 5 mg PO DAILY #30 tabs 10/13/22 11/26/22 11/26/22 08:30 Rx isosorbide mononitrate 30 mg 30 mg PO BID@08,16 #60 tabs 10/29/22 11/26/22 11/26/22 08:30 Rx tablet,extended release 24 hr levothyroxine 75 mcg tablet 75 mcg PO QAM 30 days #30 tabs 10/29/22 11/26/22 11/26/22 08:30 Rx liothyronine 5 mcg tablet 10 mcg PO DAILY 30 days #60 tabs 10/29/22 11/26/22 11/26/22 08:30 Rx metoprolol tartrate 50 mg tablet 50 mg PO BID #60 tabs 10/29/22 11/26/22 11/26/22 08:30 Rx midodrine 5 mg tablet 5 mg PO DAILY PRN on day of 10/29/22 11/26/22 10/30/22 Rx dialysis for SBP less than 120 mmhg #15 tabs docusate sodium 100 mg capsule 100 mg PO BID #14 caps 11/01/22 11/26/22 11/26/22 08:30 Rx (DOK) oxycodone-acetaminophen 7.5 mg-325 1 tab PO Q6H PRN pain #20 tabs 11/01/22 11/26/22 Unknown Rx mg tablet honey 100 % topical paste 1 applic topical TID #15 mL 11/10/22 11/26/22 11/26/22 08:30 Rx (MediHoney (honey)) montelukast 10 mg tablet 10 mg PO DAILY@0830 #30 tabs 11/26/22 11/26/22 11/26/22 08:30 Rx omeprazole 40 mg capsule,delayed 40 mg PO DAILY@0830 30 days #30 11/26/22 11/26/22 11/26/22 08:30 Rx release caps Allergies Allergy/AdvReac Type Severity Reaction Status Date / Time lisinopril Allergy Severe anaphylaxis Verified 11/26/22 16:17 Sulfa (Sulfonamide AdvReac Intermediate Itching, Verified 11/26/22 16:17 Antibiotics) burning PFSH Acute PFSH: Medical History AAA (abdominal aortic aneurysm) 4.1 x 4.4 x 5.7 cm 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 Acute on chronic diastolic (congestive) heart failure Anemia Anxiety attack Atypical chest pain Brain aneurysm Chest pain Chest pain Chronic kidney disease CKD stage III, solitary kidney Chronic migraine without aura, intractable, with status migrainosus Congestive heart failure COPD (chronic obstructive pulmonary disease) COPD with acute exacerbation Depression Elevated troponin End-stage renal disease needing dialysis Endoleak post (EVAR) endovascular aneurysm repair Fear associated with healthcare Gallbladder abnormality GERD (gastroesophageal reflux disease) History of stent insertion of renal artery Hypercholesteremia Hypertension Hypertensive urgency Resolved Hyponatremia Hypothyroidism Inguinal swelling Major depressive disorder, recurrent severe without psychotic features Malnourished Normal colonoscopy NSTEMI (non-ST elevated myocardial infarction) Osteoporosis Peripheral vascular disease Protein-energy malnutrition Psychiatric care Restless leg Solitary kidney Surgical History H/O: hysterectomy History of laparoscopic cholecystectomy History of renal stent Herculink stent History of repair of aneurysm of abdominal aorta using endovascular stent graft Hx of colonoscopy with polypectomy Age 62 Hx of tonsillectomy S/P appendectomy Status post endovascular aneurysm repair (EVAR) Family History Mother CAD (coronary artery disease) Chronic kidney disease (CKD) Dementia Stroke Father CAD (coronary artery disease) Cancer Diabetes Brother CAD (coronary artery disease) Cancer Lung disease Grandfather Cancer Grandmother Diabetes Family/Other Lung disease Suicide Other Hypertension Denies family history of Clotting disorder Anesthesia complication Bleeding disorder Social History Smoking and tobacco status: former smoker Quit status (tobacco): has quit using tobacco Year quit tobacco: 2005 - PPD x 35 Years Former quit date comment: Started at age 18 Second hand smoke exposure: No Smoking risk assessment/counseling performed?: No Alcohol intake: never Desire information about alcohol rehabilitation?: No Counseling given: No Substance/Drug Use: never Desire information about substance/drug rehabilitation?: No Counseling given: No Adopted: No Caregiver/support person: No Lives independently: Yes Household members: family and children Housing: House Marital status: / Marital status details: 2005 Number of children: 12 Number of grandchildren: 4 Highest education level completed: Master's Degree Education level details: Criminal Justice service: No Current occupational status: disabled Current occupational exposures/hazards: No Pets and animals: Yes Pets & animals: cat(s), dog(s) and farm animals Farm Animals: cattle Leisure activites: reading and other Leisure activities details: watch TV Sexually active: No Do you think of yourself as: Straight/Heterosexual Current gender identity: Female Yudy/Worship: [employer] Special yudy needs: No Agree to transfusion: Yes Financial difficulty paying for basics: Somewhat Hard Female Reproductive History: Para: 0 Spontaneous abortions: Yes Vitals/I&O/Wt Last Vital Signs Temp 98.2 F 11/26/22 16:09 Pulse 77 11/26/22 17:10 Resp 18 11/26/22 16:23 BP 162/88 11/26/22 16:09 Pulse Ox 96 11/26/22 17:10 O2 Del Method Nasal Cannula 11/26/22 16:23 O2 Flow Rate 3 11/26/22 16:23 FiO2 30 11/26/22 17:10 Weight last 48 hrs Weight 30.844 kg Physical Exam Narrative: Currently patient on BiPAP Frail female S1, S2 Abdomen soft Nonfocal neuro exam GCS 17 appears stated age Cachectic, malnourished Protein calorie malnourishment Muscle mass loss She was eating ice chips when entered the room Data 11/26/22 16:20 11/26/22 16:20 A&P Assessment and plan (1) Hypothyroidism: Qualifiers: Hypothyroidism type: acquired Qualified Code(s): E03.9 - Hypothyroi dism, unspecified (2) COPD with acute exacerbation: (3) Acute and chronic respiratory failure: (4) Chronic kidney disease with 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 due to type 2 diabetes mellitus: (5) Shortness of breath: (6) Depression: (7) Physical deconditioning: (8) ESRD on dialysis: Plan Acute COPD exacerbation Hypercapnic respite failure No signs of metabolic acidosis Currently on BiPAP Preserved action fraction heart failure currently compensated recent dobutamine stress test was unremarkable for ischemia End-stage renal disease dialysis dependent we will consult nephro Noncompliance Recent laparoscopic cholecystectomy Protein calorie malnourishment We will put Ensure 3 times daily Patient uses BiPAP at nighttime She is full code DVT prophylaxis on board Check D-dimer Attestations Medical Necessity Statement*: Anticipating discharge within 48 hours will need management for COPD exacerbation with steroids and BiPAP Coding Level of Care Code 28746 Moderate MDM includes number and complexity of problems actively addressed during encounter, amount and/or complexity of data reviewed/ordered and described risk of complication, morbidity or mortality of management as do cumented Diagnoses Hypothyroidism E03.9 Hypothyroidism type: acquired COPD with acute exacerbation J44.1 Acute and chronic respiratory failure J96.20 Chronic kidney disease with 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 due to type 2 diabetes mellitus E11.22; N18.6; Z99.2 Shortness of breath R06.02 Depression F32.A Physical deconditioning R53.81 ESRD on dialysis N18.6; Z99.2
--- NOTE | 2022-11-26 19:27 | PC.NURSE ---
Nurse assumed pt care from Travis Ham RN, at 1852. Initial assessment by Nurse completed at 1900. At time, pt was resting in bed on phone not in any distress. Pt stated that she came to the ED due to SOB from COPD. Currently, pt states that she is feeling much better but the doctor said I needed to be admitted to the hospital because of the gases in my blood. Pt currently on 3L NC satting 98%. Denies SOB at this time and carries on conversation uninterrupted. RT notified that BiPAP was discontinued at 1830 so pt could eat and pt is currently going to floor.
[2022-11-26] MEDS: heparin 5,000 unit/mL INJ 1 mL 5000 UNIT SUBCUT (20:56)
[2022-11-26] MEDS: morphine IR 15 mg Tablet PO (21:03)
--- NOTE | 2022-11-26 21:04 | PC.NURSE ---
Addendum entered by Charlotte Dutta LPN 11/26/22 21:30: Pt receives hemodialysis on , & Sat. Dialysis catheter intact to R upper chest. Dressing D&I Original Note: ADMIT NOTE Pt was received to floor from ER at 1930. Alert and oriented. Very thin. Skin is very thin/fragile with much bruising to arms & legs. c/o back pain which she says is chronic. O2 in place at 3l per NC which she says is her baseline at home. Reports is always SOB but had become worse since yesterday. Has an occ cough. IV was leaking at site on arrival to floor and was restarted. patient monitor was applied. Call light in reach. RN completed admission assessment
[2022-11-26 21:15] LABS: ABG PCO2 42.3 mmHg (35-45); ABG PH Result 7.31 (7.35-7.45); Arterial Blood Gas Hematocrit 39.5 % (37-47); Base Excess ABG -4.8 mmol/L (-2.0-2.0); Blood Gas Allen Test Pos; Blood Gas Operator Identificat MONRO; Blood Gas Sample Site Brachial, left; Blood Gas Sample Type Arterial; HCO3 ABG 21.3 mmol/L (22-26); Oxygen Device NC; PO2 ABG 94.5 mmHg (80.0-100.0)
[2022-11-27] VITALS (19 sets, daily range): BP systolic 136–189; BP diastolic 79–109; PULSE 57–86; RESP 16–32; TEMP 36.5–37; O2SAT 94–99
[2022-11-27] MEDS: hyDROXYzine 25 mg Capsule 50 MG PO ×2 (02:18→20:52)
[2022-11-27] MEDS: ipratropium-albuterol 3 mL Neb INHALATION ×3 (04:03→18:32)
--- NOTE | 2022-11-27 04:07 | PC.RESP ---
Patient does not want ABG at this time. She prefers to wait until daytime.
[2022-11-27 05:14] LABS: Hematocrit 43.6 % (37.0-47.0); Hemoglobin 12.3 g/dL (11.5-15.3); Lymphocytes # 1.7 10^3/uL (0.8-4.8); Lymphocytes % 25.2 %; Mean Corpuscular HGB Conc 28.2 g/dL (30.0-36.0); Mean Corpuscular Hemoglobin 29.5 pg (28.0-34.0); Mean Corpuscular Volume 104.6 fl (81-99); Mean Platelet Volume 9.2 fL (7.4-10.4); Monocytes # 0.1 10^3/uL (0.2-0.9); Monocytes % 1.5 %; Neutrophils # 4.81 10^3/uL (1.8-7.7); Neutrophils % 72.7 %; Nucleated Red Blood Cells # 0.1 /100WBC; Platelet Count 137 10^3/cmm (130-400); Red Blood Count 4.17 10^6/uL (4.1-5.3); Red Cell Distribution Width 16.8 % (12.1-15.1); White Blood Count 6.6 10^3/uL (4.0-10.0)
[2022-11-27 05:36] LABS: Anion Gap 22.6 (5-19); Blood Urea Nitrogen 40 mg/dL (8-23); Calcium 8.2 mg/dL (8.5-10.5); Carbon Dioxide 21 mmol/L (22-29); Chloride 99 mmol/L (98-107); Glomerular Filtration Rate 7.2 mL/min (90-130); Glucose 160 mg/dL (65-115); Osmolality Calculated 299 mOsm/kg (285-295); Potassium 4.6 mmol/L (3.5-5.1); Sodium 138 mmol/L (136-145)
[2022-11-27] MEDS: morphine IR 15 mg Tablet PO ×3 (05:42→20:45)
--- NOTE | 2022-11-27 05:42 | PM.PN ---
Subjective Subjective: Patient endorsing feeling better ABG is pending She always uses BiPAP at night Afebrile Vitals/I&O/Wt Last Vital Signs Temp 98.3 F 11/27/22 03:00 Pulse 82 11/27/22 04:05 Resp 18 11/27/22 04:05 BP 177/92 11/27/22 03:00 Pulse Ox 96 11/27/22 04:05 O2 Del Method Nasal Cannula 11/27/22 04:05 O2 Flow Rate 3 11/27/22 04:05 FiO2 30 11/26/22 18:30 11/26/22 11/26/22 11/27/22 14:59 22:59 06:59 Intake Total 240 / 240 240 / 480 Output Total 0 / 0 Balance 240 / 240 240 / 480 Weight last 48 hrs Weight 30.844 kg Weight 30.844 kg Physical Exam Narrative: No active wheezing Patient is malnourished Cachectic Thin lean female No acute distress Pleasant and cooperative Nonfocal neuro exam S1, S2 Data 11/27/22 04:20 11/27/22 04:20 A&P Assessment and plan (1) Hypothyroidism: Qualifiers: Hypothyroidism type: acquired Qualified Code(s): E03.9 - Hypothyroidism, unspecified (2) Anxiety: (3) COPD with acute exacerbation: (4) Acute and chronic respiratory failure: (5) Chronic kidney disease with 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 due to type 2 diabetes mellitus: Plan Acute COPD exacerbation Compliant with BiPAP Afebrile Continue steroid use End-stage renal disease Nephro consulted appreciate their recommendations Patient recently had laparoscopic cholecystectomy Recent stress test was unremarkable Patient is full code BiPAP dependent uses at nighttime at home Patient will need 1 more day of monitoring My people to go home on Tuesday Attestations Medical Necessity Statement*: Possible discharge tomorrow Diagnoses Hypothyroidism E03.9 Hypothyroidism type: acquired Anxiety F41.9 COPD with acute exacerbation J44.1 Acute and chronic respiratory failure J96.20 Chronic kidney disease with 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 due to type 2 diabetes mellitus E11.22; N18.6; Z99.2
[2022-11-27 08:59] LABS: Blood Gas Sample Type Arterial
[2022-11-27 09:23] LABS: ABG PCO2 45.1 mmHg (35-45); ABG PH Result 7.38 (7.35-7.45); Base Excess ABG 0.9 mmol/L (-2.0-2.0); HCO3 ABG 26.5 mmol/L (22-26)
[2022-11-27 09:24] LABS: Blood Gas Operator Identificat ED; Blood Gas Sample Site Brachial, right; Oxygen Device NC
[2022-11-27 09:38] LABS: Hepatitis B Core AB, Total Non-Reactive (Nonreactive); Hepatitis B Surface AB 40.6 (11.5-1000); Hepatitis B Surface Antigen Non-Reactive (Nonreactive)
--- NOTE | 2022-11-27 11:24 | PC.HD ---
Patient's BP dropped during treatment; at the same time, patient began complaining of stomach pain and cramping. UF was turned off for approximately 10 minutes. Primary RN was contacted to administer Zofran. BP came up to >100 SBP, and UF was turned back on, but at minimum ultrafiltration rate of 300 mL/hour per assembler golf wood head's hypotension orders. BP remained somewhat low throughout, but additional fluid was able to be removed. At end of treatment, patient's BP shwetha to 189/80 after blood was returned. Patient complained of continued stomach pain, but not as severe as previously, and she was able to rest with eyes closed during last half hour of trx. Telenephrologist at bedside at treatment conclusion; is aware of UF goal not being met and patient's symptomatic hypotension. UF goal was 3000; 0 net was removed.
--- NOTE | 2022-11-27 11:41 | PM.CONSULT ---
Providers/Reason For Consult Consulting Physician/Specialty*: [facility] /Nephrology Reason for Consult*: ESRD Attending Physician: Ruperto Mejia MD Primary Care Provider: HERBERT Masters History of Present Illness History of Present Illness Hali James is a 67 year old female 67-year-old female with history of COPD, end-stage renal 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 history of multiple admissions for volume overload and respiratory failure presented to the emergency department due to shortness of breath. Patient gets dialysis per TTS schedule. In ER she was thought to have COPD exacerbation and also also volume overloaded. Patient underwent dialysis this morning and feels better. Review of Systems Narrative: Other review of systems negative Medications/Allergies Home Medications Medication Instructions Recorded Confirmed Last Taken Type fluticasone propionate 50 2 spray intranasal DAILY PRN 02/21/20 11/26/22 10/18/22 History mcg/actuation nasal Allergy Symptoms spray,suspension (Flonase Allergy Relief) epinephrine 0.3 mg/0.3 mL 0.3 mg IM Q10M PRN Allergic 10/16/20 11/26/22 Unknown History injection, auto-injector Reaction nitroglycerin 0.4 mg sublingual 0.4 mg sublingual Q5M PRN Chest 04/05/22 11/26/22 06/12/22 Rx tablet (Nitrostat) Pain 30 days #30 tabs sevelamer carbonate 0.8 gram oral 0.4 g PO TID 06/12/22 11/26/22 11/26/22 08:30 History powder packet ondansetron 8 mg disintegrating 8 mg PO Q8H PRN nausea and 06/16/22 11/26/22 10/29/22 Rx tablet vomiting #90 tabs budesonide 0.5 mg/2 mL suspension 0.5 mg (2 mL) inhalation BID #120 06/21/22 11/26/22 11/26/22 08:30 Rx for nebulization (Pulmicort) mL formoterol fumarate 20 mcg/2 mL 2 ml inhalation Q12H #120 mL 06/21/22 11/26/22 11/26/22 08:30 Rx solution for nebulization (Perforomist) citalopram 40 mg tablet 40 mg PO DAILY@0830 30 days #30 07/01/22 11/26/22 11/26/22 08:30 Rx tabs azithromycin 250 mg tablet 250 mg PO .COMPLEX COPD 90 days 07/06/22 11/26/22 11/26/22 08:30 Rx #45 tabs aspirin 81 mg tablet,delayed 81 mg PO DAILY@0830 30 days #30 08/18/22 11/26/22 11/26/22 08:30 Rx release tabs hydroxyzine HCl 50 mg tablet 50 mg PO QID PRN Anxiety 08/21/22 11/26/22 10/29/22 History ropinirole 1 mg tablet 1 mg PO BEDTIME 08/21/22 11/26/22 11/25/22 20:00 History polyethylene glycol 3350 17 gram 17 g PO DAILY PRN constipation #30 08/25/22 11/26/22 11/26/22 08:30 Rx oral powder packet ea vit B,C-folic ac 800 mcg-zinc 12.5 1 tab PO QPM 09/08/22 11/26/22 11/25/22 20:00 History mg-selen-D3 2,000 unit-vit E tablet (RenaPlex-D) atorvastatin 40 mg tablet 40 mg PO QAM 09/16/22 11/26/22 11/26/22 08:30 History revefenacin 175 mcg/3 mL solution 175 mcg inhalation QAM 09/16/22 11/26/22 11/26/22 08:30 History for nebulization buspirone 15 mg tablet 15 mg PO BID #60 tabs 09/27/22 11/26/22 11/26/22 08:30 Rx hydrocodone 5 mg-acetaminophen 325 1 tab PO BID PRN pain/dyspnea 1 10/01/22 11/26/22 Unknown Rx mg tablet month #60 tabs albuterol sulfate 2.5 mg/3 mL 2.5 mg (3 mL) inhalation QID PRN 10/13/22 11/26/22 11/26/22 14:00 Rx (0.083 %) solution for nebulization Shortness Of Breath 30 days #75 mL albuterol sulfate 90 mcg/actuation 2 puff inhalation 6XD PRN 10/13/22 11/26/22 11/26/22 14:00 Rx aerosol inhaler Shortness Of Breath #6.7 grams prednisone 5 mg tablet 5 mg PO DAILY #30 tabs 10/13/22 11/26/2211/26/23 08:30 Rx isosorbide mononitrate 30 mg 30 mg PO BID@08,16 #60 tabs 10/29/22 11/26/22 11/26/22 08:30 Rx tablet,extended release 24 hr levothyroxine 75 mcg tablet 75 mcg PO QAM 30 days #30 tabs 10/29/22 11/26/22 11/26/22 08:30 Rx liothyronine 5 mcg tablet 10 mcg PO DAILY 30 days #60 tabs 10/29/22 11/26/22 11/26/22 08:30 Rx metoprolol tartrate 50 mg tablet 50 mg PO BID #60 tabs 10/29/22 11/26/22 11/26/22 08:30 Rx midodrine 5 mg tablet 5 mg PO DAILY PRN on day of 10/29/22 11/26/22 10/30/22 Rx dialysis for SBP less than 120 mmhg #15 tabs docusate sodium 100 mg capsule 100 mg PO BID #14 caps 11/01/22 11/26/22 11/26/22 08:30 Rx (DOK) oxycodone-acetaminophen 7.5 mg-325 1 tab PO Q6H PRN pain #20 tabs 11/01/22 11/26/22 Unknown Rx mg tablet honey 100 % topical paste 1 applic topical TID #15 mL 11/10/22 11/26/22 11/26/22 08:30 [facility] montelukast 10 mg tablet 10 mg PO DAILY@0830 #30 tabs 11/26/22 11/26/22 11/26/22 08:30 Rx omeprazole 40 mg capsule,delayed 40 mg PO DAILY@0830 30 days #30 11/26/22 11/26/22 11/26/22 08:30 Rx release caps Allergies Allergy/AdvReac Type Severity Reaction Status Date / Time lisinopril Allergy Severe anaphylaxis Verified 11/26/22 16:17 Sulfa (Sulfonamide AdvReac Intermediate Itching, Verified 11/26/22 16:17 Antibiotics) burning Current Medications Generic Name Dose Route Start Last Admin Trade Name Freq PRN Reason Stop Dose Admin Albuterol/Ipratropium 3 ml 11/26/22 19:39 11/27/22 11:29 Ipratropium-Albuterol 3 Ml Neb INHALATION 3 ml Q6H PRN Administration SHORTNESS OF BREATH Heparin Sodium (Porcine) 5,000 unit 11/26/22 20:00 11/26/22 20:56 Heparin 5,000 Unit/Ml Inj 1 Ml SUBCUT 5,000 unit Q12H APOLONIA Administration Hydroxyzine Pamoate 50 mg 11/27/22 02:04 11/27/22 02:18 Hydroxyzine 25 Mg Capsule PO 50 mg QID PRN Administration ANXIETY Morphine Sulfate 15 mg 11/26/22 19:39 11/27/22 05:42 Morphine Ir 15 Mg Tablet PO 15 mg Q6H PRN Administration pAIN PFSH Acute PFSH: Medical History AAA (abdominal aortic aneurysm) 4.1 x 4.4 x 5.7 cm 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 Acute on chronic diastolic (congestive) heart failure Anemia Anxiety attack Atypical chest pain Brain aneurysm Chest pain Chest pain Chronic kidney disease CKD stage III, solitary kidney Chronic migraine without aura, intractable, with status migrainosus Congestive heart failure COPD (chronic obstructive pulmonary disease) COPD with acute exacerbation Depression Elevated troponin End-stage renal disease needing dialysis Endoleak post (EVAR) endovascular aneurysm repair Fear associated with healthcare Gallbladder abnormality GERD (gastroesophageal reflux disease) History of stent insertion of renal artery Hypercholesteremia Hypertension Hypertensive urgency Resolved Hyponatremia Hypothyroidism Inguinal swelling Major depressive disorder, recurrent severe without psychotic features Malnourished Normal colonoscopy NSTEMI (non-ST elevated myocardial infarction) Osteoporosis Peripheral vascular disease Protein-energy malnutrition Psychiatric care Restless leg Solitary kidney Surgical History H/O: hysterectomy History of laparoscopic cholecystectomy History of renal stent Herculink stent History of repair of aneurysm of abdominal aorta using endovascular stent graft Hx of colonoscopy with polypectomy Age 62 Hx of tonsillectomy S/P appendectomy Status post endovascular aneurysm repair (EVAR) Family History Mother CAD (coronary artery disease) Chronic kidney disease (CKD) Dementia Stroke Father CAD (coronary artery disease) Cancer Diabetes Brother CAD (coronary artery disease) Cancer Lung disease Grandfather Cancer Grandmother Diabetes Family/Other Lung disease Suicide Other Hypertension Denies family history of Clotting disorder Anesthesia complication Bleeding disorder Social History Smoking and tobacco status: former smoker Quit status (tobacco): has quit using tobacco Year quit tobacco: 2005 - PPD x 35 Years Former quit date comment: Started at age 18 Second hand smoke exposure: No Smoking risk assessment/counseling performed?: No Alcohol intake: never Desire information about alcohol rehabilitation?: No Counseling given: No Substance/Drug Use: never Desire information about substance/drug rehabilitation?: No Counseling given: No Adopted: No Caregiver/support person: No Lives independently: Yes Household members: family and children Housing: House Marital status: / Marital status details: 2005 Number of children: 12 Number of grandchildren: 4 Highest education level completed: Master's Degree Education level details: Criminal Justice service: No Current occupational status: disabled Current occupational exposures/hazards: No Pets and animals: Yes Pets & animals: cat(s), dog(s) and farm animals Farm Animals: cattle Leisure activites: reading and other Leisure activities details: watch TV Sexually active: No Do you think of yourself as: Straight/Heterosexual Current gender identity: Female Yudy/Muslim: [employer] Special yudy needs: No Agree to transfusion: Yes Financial difficulty paying for basics: Somewhat Hard Female Reproductive History: Para: 0 Spontaneous abortions: Yes Vitals/I&O/Wt Last Vital Signs Temp 98.6 F 11/27/22 11:20 Pulse 86 11/27/22 11:35 Resp 18 11/27/22 11:29 BP 189/80 11/27/22 11:20 Pulse Ox 95 11/27/22 11:29 O2 Del Method Nasal Cannula 11/27/22 11:29 O2 Flow Rate 2 11/27/22 11:29 FiO2 30 11/26/22 18:30 11/26/22 11/27/22 11/27/22 22:59 06:59 14:59 Intake Total 240 / 240 240 / 480 780 / 780 Output Total 0 / 0 2350 / 2350 Balance 240 / 240 240 / 480 -1570 / -1570 Weight last 48 hrs Weight 31.9 kg Weight 30.844 kg Weight 30.844 kg Physical Exam Narrative: Patient is awake alert, no acute distress, complains of nausea, 2 L of nasal cannula S1-S2 regular rate and rhythm per report Decreased breath sounds at bases per report No pedal edema Data 11/27/22 04:20 11/27/22 04:20 A&P Assessment and plan (1) ESRD on dialysis: Plan 1. End-stage renal disease: HD per TTS schedule as outpatient, status post HD today, assess daily for HD needs 2. Acute on chronic respiratory failure: Multifactorial secondary to COPD volume overload, HD as above 3. Hypertension: Blood pressure elevated, restart home meds. Patient evaluated using audiovisual cart. Time spent 30 minutes Consult Attestations Medical Necessity Statement: per medicine Coding Level of Care Code Acute Code for Chg Fwd Diagnoses ESRD on dialysis N18.6; Z99.2
[2022-11-27] MEDS: sevelamer 800 mg Tablet 400 MG PO ×2 (13:17→17:24)
[2022-11-27] MEDS: sennosides-docusate Tablet 1 TAB PO (13:18)
[2022-11-27] MEDS: cefTRIAXone 1,000 MG in sodium chloride 0.9% (plus) 50 ML 100 MG IV (13:18)
[2022-11-27] MEDS: pantoprazole DR 40 mg Tablet PO (17:29)
[2022-11-27] MEDS: budesonide 0.5 mg/2 mL Neb INHALATION (18:33)
[2022-11-27] MEDS: heparin 5,000 unit/mL INJ 1 mL 5000 UNIT SUBCUT (20:44)
[2022-11-28] VITALS (18 sets, daily range): BP systolic 114–171; BP diastolic 58–83; PULSE 72–116; RESP 16–28; TEMP 36.1–37; O2SAT 91–97
[2022-11-28] MEDS: morphine IR 15 mg Tablet PO ×3 (03:03→19:04)
--- NOTE | 2022-11-28 05:20 | P.DS_ITS ---
Discharge Providers Date of Admission: 11/26/22 17:30 Date of Discharge: November 28, 2022 Attending Provider at Admission: Ruperto Mejia MD Attending Provider at Discharge: Ruperto Mejia MD Primary Care Provider: HERBERT Masters Diagnoses at Discharge Discharge Diagnosis (1) Hypothyroidism: Status: Acute Qualifiers: Hypothyroidism type: acquired Qualified Code(s): E03.9 - Hypothyroidism, unspecified (2) Anxiety: Status: Acute (3) COPD with acute exacerbation: Status: Acute (4) Acute and chronic respiratory failure: Status: Acute (5) Chronic kidney disease with 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 due to type 2 diabetes mellitus: Status: Acute Reason for Visit Reason for Visit: SOB Hospital Course Hospital Course 67-year female with end-stage COPD, 2 to 3 L oxygen dependent, use BiPAP at home, hospice was offered/comfort care in the past but patient refused and stated that she would like to see her younger kids grow up, she has had multiple admissions in the past for fluid overload due to end-stage renal disease Tuesday dialysis dependency, this time she was admitted for COPD exacerbation for the similar reason, she remained afebrile, her blood pressure is labile drops with hemodialysis and then she becomes hypertensive, patient does have [facility] home health services, recent ABG showed compensated pH with without significant hypoxia, patient will be discharged home with [facility] home health services. She is at risk of readmissions because of her poor quality of life, end-stage renal disease, dialysis dependency and end-stage COPD. She has been prescribed long-term steroids, Yupelri on top of her other COPD regimen Physical Exam Narrative: Cachectic, malnourished GCS 15 Nonfocal neuro exam No active wheeze Currently on 3 L No active chest pain No shortness of breath Abdomen soft Discharge Data Studies Completed and Pending Completed Studies During Hospitalization Category Date Time Status XR chest 1V portable [id number] Stat Exams 11/26/22 16:43 Completed Pending at discharge Category Date Time Status Basic Metabolic Panel AM LABS Lab 11/28/22 04:00 Ordered Complete Blood Count w/Auto AM LABS Lab 11/28/22 04:00 Ordered Urinalysis Stat Lab 11/26/22 16:00 Ordered Radiology Impressions Chest X-Ray 11/26/22 16:43 IMPRESSION: No acute findings. Laboratory Results WBC 6.6 10^3/uL (4.0-10.0) 11/27/22 04:20 RBC 4.17 10^6/uL (4.1-5.3) 11/27/22 04:20 Hgb 12.3 g/dL (11.5-15.3) 11/27/22 04:20 Hct 43.6 % (37.0-47.0) 11/27/22 04:20 MCV 104.6 fl (81-99) H 11/27/22 04:20 MCH 29.5 pg (28.0-34.0) 11/27/22 04:20 MCHC 28.2 g/dL (30.0-36.0) L 11/27/22 04:20 RDW 16.8 % (12.1-15.1) H 11/27/22 04:20 Plt Count 137 10^3/cmm (130-400) 11/27/22 04:20 MPV 9.2 fL (7.4-10.4) 11/27/22 04:20 Neut % (Auto) 72.7 % 11/27/22 04:20 Lymph % (Auto) 25.2 % 11/27/22 04:20 [place] % (Auto) 1.5 % 11/27/22 04:20 Eos % (Auto) 0.0 % 11/27/22 04:20 Baso % (Auto) 0.0 % 11/27/22 04:20 Neut # (Auto) 4.81 10^3/uL (1.8-7.7) 11/27/22 04:20 Lymph # (Auto) 1.7 10^3/uL (0.8-4.8) 11/27/22 04:20 [place] # (Auto) 0.1 10^3/uL (0.2-0.9) L 11/27/22 04:20 Eos # (Auto) 0.0 10^3/uL (0.0-0.8) 11/27/22 04:20 Baso # (Auto) 0.0 10^3/uL (0.0-0.1) 11/27/22 04:20 Nucleated RBC % (auto) 2.0 % 11/27/22 04:20 Nucleated RBCs # 0.1 /100WBC 11/27/22 04:20 Specimen Type Arterial 11/27/22 08:42 Sample Site Brachial, right 11/27/22 08:42 ABG pH 7.38 (7.35-7.45) 11/27/22 08:42 ABG pCO2 45.1 mmHg (35-45) H 11/27/22 08:42 ABG pO2 124.0 mmHg (80.0-100.0) H 11/27/22 08:42 ABG HCO3 26.5 mmol/L (22-26) H 11/27/22 08:42 ABG O2 Saturation 95.7 11/26/22 16:26 ABG Base Excess 0.9 mmol/L (-2.0-2.0) 11/27/22 08:42 Roly Test N/a 11/27/22 08:42 A-a O2 Gradient 10.5 mmHg (5-10) H 11/26/22 16:26 Hematocrit 43.0 % (37-47) 11/27/22 08:42 Hgb O2 Saturation 94.7 % (95-100) L 11/26/22 16:26 Carboxyhemoglobin 0.9 %THgb (0.4-20.1) 11/26/22 16:26 Methemoglobin 0.2 % (0.4-1.5) L 11/26/22 16:26 Total Hemoglobin 13.3 g/dL (12-16) 11/26/22 16:26 Sodium 140.0 mmol/L (131-143) 11/26/22 16:26 Potassium 4.5 mmol/L (3.5-5.0) 11/26/22 16:26 Glucose 70.0 mg/dL (70-115) 11/26/22 16:26 Ionized Calcium 1.2 mmol/L (1.1-1.4) 11/26/22 16:26 O2 Delivery Device Nc 11/27/22 08:42 O2 Liters/Min 3.0 % 11/27/22 08:42 FiO2 32.0 % 11/27/22 08:42 [employer] ID Ed 11/27/22 08:42 Sodium 138 mmol/L (136-145) 11/27/22 04:20 Potassium 4.6 mmol/L (3.5-5.1) 11/27/22 04:20 Chloride 99 mmol/L (98-107) 11/27/22 04:20 Carbon Dioxide 21 mmol/L (22-29) L 11/27/22 04:20 Anion Gap 22.6 (5-19) H 11/27/22 04:20 BUN 40 mg/dL (8-23) H 11/27/22 04:20 Creatinine 5.9 mg/dL (0.5-0.9) H* 11/27/22 04:20 GFR Calculation 7.2 mL/min (90-130) L 11/27/22 04:20 Glucose 160 mg/dL (65-115) H 11/27/22 04:20 Calculated Osmolality 299 mOsm/kg (285-295) H 11/27/22 04:20 Calcium 8.2 mg/dL (8.5-10.5) L 11/27/22 04:20 Phosphorus 6.0 mg/dL (2.5-4.5) H 11/27/22 04:20 Magnesium 2.0 mg/dL (1.7-2.3) 11/27/22 04:20 Total Bilirubin 0.3 mg/dL (0.15-1.2) 11/26/22 16:20 AST 33 U/L (0-32) H 11/26/22 16:20 ALT 19 U/L (0-33) 11/26/22 16:20 Alkaline Phosphatase 95 U/L (35-105) 11/26/22 16:20 Total Protein 6.4 g/dL (6.6-8.7) L 11/26/22 16:20 Albumin 4.0 g/dL (3.5-5.2) 11/26/22 16:20 Globulin 2.4 g/dL (1.3-4.6) 11/26/22 16:20 Hep Bs Antigen Non-reactive (Nonreactive) 11/26/22 16:20 Hep Bs Antibody 40.6 (11.5-1000) 11/26/22 16:20 Hep B Core Total Ab Non-reactive (Nonreactive) 11/26/22 16:20 Vitals Last Vital Signs Temp 97.8 F 11/28/22 03:00 Pulse 77 11/28/22 03:09 Resp 20 H 11/28/22 03:03 BP 129/73 11/28/22 03:00 Pulse Ox 95 11/28/22 03:09 O2 Del Method Nasal Cannula 11/28/22 03:00 O2 Flow Rate 3 11/27/22 20:00 FiO2 30 11/28/22 03:09 Discharge Plan Discharge Patient Disposition: Home Condition: Stable Prescriptions: New albuterol sulfate 90 mcg/actuation aerosol powdr breath activated 2 inh inhalation Q6H Qty: 1 3RF Spiriva Respimat 2.5 mcg/actuation mist 2 inh inhalation DAILY Qty: 4 4RF Continued epinephrine 0.3 mg/0.3 mL auto-injector 0.3 mg IM Q10M PRN (Reason: Allergic Reaction) Rx Instructions: for 2 doses nitroglycerin [Nitrostat] 0.4 mg tablet, sublingual 0.4 mg SUBLINGUAL Q5M PRN (Reason: Chest Pain) 30 Days Qty: 30 5RF buspirone 15 mg tablet 15 mg PO BID Qty: 60 2RF albuterol sulfate 2.5 mg /3 mL (0.083 %) solution for nebulization 2.5 mg INHALATION QID PRN (Reason: Shortness Of Breath) 30 Days Qty: 75 5RF prednisone 5 mg tablet 5 mg PO DAILY Qty: 30 3RF albuterol sulfate 90 mcg/actuation HFA aerosol inhaler 2 puff INHALATION 6XD PRN (Reason: Shortness Of Breath) Qty: 6.7 5RF MediHoney (honey) 100 % paste 1 applic topical TID Qty: 15 0RF ondansetron 8 mg tablet,disintegrating 8 mg PO Q8H PRN (Reason: nausea and vomiting) Qty: 90 0RF citalopram 40 mg tablet 40 mg PO DAILY@30 30 Days Qty: 30 2RF azithromycin 250 mg tablet 250 mg PO .COMPLEX 90 Days Qty: 45 0RF Rx Instructions: 250 mg PO on Tuesday; aspirin 81 mg tablet,delayed release (DR/EC) 81 mg PO DAILY@30 30 Days Qty: 30 5RF hydrocodone-acetaminophen 5-325 mg tablet 1 tab PO BID PRN (Reason: pain/dyspnea) 30 Days Qty: 60 0RF Hold Instructions: Resume on 11/06/22. montelukast 10 mg tablet 10 mg PO DAILY@0830 Qty: 30 5RF omeprazole 40 mg capsule,delayed release(DR/EC) 40 mg PO DAILY@0830 30 Days Qty: 30 5RF fluticasone propionate [Flonase Allergy Relief] 50 mcg/actuation [place],Suspension 2 spray INTRANASAL DAILY PRN (Reason: Allergy Symptoms) ropinirole 1 mg tablet 1 mg PO BEDTIME hydroxyzine HCl 50 mg tablet 50 mg PO QID PRN (Reason: Anxiety) polyethylene glycol 3350 17 gram Powder In Packet 17 g PO DAILY PRN (Reason: constipation) Qty: 30 0RF RenaPlex-D 800 mcg-12.5 mg -2,000 unit tablet 1 tab PO QPM atorvastatin 40 mg tablet 40 mg PO QAM midodrine 5 mg Tablet 5 mg PO DAILY PRN (Reason: on day of dialysis for SBP less than 120 mmhg) Qty: 15 0RF liothyronine 5 mcg Tablet 10 mcg PO DAILY 30 Days Qty: 60 0RF levothyroxine 75 mcg Tablet 75 mcg PO QAM 30 Days Qty: 30 0RF isosorbide mononitrate 30 mg tablet extended release 24 hr 30 mg PO BID@08,16 Qty: 60 0RF metoprolol tartrate 50 mg tablet 50 mg PO BID Qty: 60 0RF sevelamer carbonate 0.8 gram Powder In Packet 0.4 g PO TID Hold Instructions: see nephrology Rx Instructions: must administer with a meal/food oxycodone-acetaminophen 7.5-325 mg tablet 1 tab PO Q6H PRN (Reason: pain) Qty: 20 0RF docusate sodium [DOK] 100 mg capsule 100 mg PO BID Qty: 14 0RF budesonide [Pulmicort] 0.5 mg/2 mL suspension for nebulization 0.5 mg inhalation BID Qty: 60 5RF Rx Instructions: NEEDS APPT PRIOR TO FURTHER REFILLS formoterol fumarate [Perforomist] 20 mcg/2 mL solution for nebulization 2 ml inhalation Q12H Qty: 120 3RF Rx Instructions: Needs appt for further refills. revefenacin 175 mcg/3 mL solution for nebulization 175 mcg inhalation QAM Qty: 90 2RF Rx Instructions: Needs appt for further refills. Referrals: Nancy Carrasco FNP-C [Primary Care Provider] - Patient Instructions: Opioid Safety Discharge Attestations Time Spent in Discharge Care*: greater than 30 min Status at Discharge: Cognitive status at discharge: cognitively intact , Behavioral status at discharge: cooperative , Quality Metrics Clinical Quality Measures [ No reported AMI, CVA or VTE this stay] Coding Level of Care Code Acute Code for Chg Fwd Diagnoses Hypothyroidism E03.9 Hypothyroidism type: acquired Anxiety F41.9 COPD with acute exacerbation J44.1 Acute and chronic respiratory failure J96.20 Chronic kidney disease with 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 due to type 2 diabetes mellitus E11.22; N18.6; Z99.2
[2022-11-28 07:03] LABS: Basophils % 0.3 %; Hematocrit 46.1 % (37.0-47.0); Hemoglobin 12.8 g/dL (11.5-15.3); Lymphocytes # 2.9 10^3/uL (0.8-4.8); Lymphocytes % 23.7 %; Mean Corpuscular HGB Conc 27.8 g/dL (30.0-36.0); Mean Corpuscular Hemoglobin 29.5 pg (28.0-34.0); Mean Corpuscular Volume 106.2 fl (81-99); Mean Platelet Volume 9.9 fL (7.4-10.4); Monocytes # 0.7 10^3/uL (0.2-0.9); Monocytes % 5.4 %; Neutrophils # 8.58 10^3/uL (1.8-7.7); Neutrophils % 70.2 %; Nucleated Red Blood Cells # 0.1 /100WBC; Nucleated Red Blood Cells % 0.5 %; Platelet Count 133 10^3/cmm (130-400); Red Blood Count 4.34 10^6/uL (4.1-5.3); White Blood Count 12.2 10^3/uL (4.0-10.0)
[2022-11-28 07:20] LABS: Anion Gap 19.5 (5-19); Blood Urea Nitrogen 23 mg/dL (8-23); Calcium 8.4 mg/dL (8.5-10.5); Carbon Dioxide 25 mmol/L (22-29); Chloride 102 mmol/L (98-107); Glomerular Filtration Rate 9.1 mL/min (90-130); Glucose 64 mg/dL (65-115); Osmolality Calculated 296 mOsm/kg (285-295); Potassium 4.5 mmol/L (3.5-5.1); Sodium 142 mmol/L (136-145)
[2022-11-28] MEDS: ipratropium-albuterol 3 mL Neb INHALATION ×3 (07:44→20:13)
[2022-11-28] MEDS: budesonide 0.5 mg/2 mL Neb INHALATION ×2 (07:44→20:13)
[2022-11-28] MEDS: sennosides-docusate Tablet 1 TAB PO (08:27)
[2022-11-28] MEDS: hyDROXYzine 25 mg Capsule 50 MG PO ×2 (08:27→19:04)
[2022-11-28] MEDS: sevelamer 800 mg Tablet 400 MG PO ×2 (08:28→13:36)
[2022-11-28] MEDS: cefTRIAXone 1,000 MG in sodium chloride 0.9% (plus) 50 ML 100 MG IV (08:29)
[2022-11-28] MEDS: pantoprazole DR 40 mg Tablet PO (08:31)
[2022-11-28] MEDS: heparin 5,000 unit/mL INJ 1 mL 5000 UNIT SUBCUT (08:43)
--- NOTE | 2022-11-28 08:46 | P.PN_ITS ---
Subjective Subjective: Patient is very anxious She is saturating 100% on 3 L of oxygen Blood gas reviewed as well No fever Patient is stating that she is agreeable to talk with hospice as hospice referral I will update her sister Vitals/I&O/Wt Last Vital Signs Temp 97.8 F 11/28/22 03:00 Pulse 72 11/28/22 08:00 Resp 22 H 11/28/22 08:00 BP 144/58 11/28/22 07:00 Pulse Ox 96 11/28/22 08:00 O2 Del Method Nasal Cannula 11/28/22 08:00 O2 Flow Rate 3 11/28/22 08:00 FiO2 30 11/28/22 03:09 11/27/22 11/28/22 11/28/22 22:59 06:59 14:59 Intake Total 480 / 1740 Balance 480 / -610 Weight last 48 hrs Weight 31.9 kg Weight 30.844 kg Weight 30.844 kg Physical Exam Narrative: Currently on 3 L saturating 100% Cachectic Malnourished No active crackles or wheeze Abdomen soft Anxious appearing Nonfocal neuro exam GCS 15 Data 11/28/22 06:00 11/28/22 06:00 A&P Assessment and plan (1) History of laparoscopic cholecystectomy: (2) Hypothyroidism: Qualifiers: Hypothyroidism type: acquired Qualified Code(s): E03.9 - Hypothyroidism, unspecified (3) Anxiety: (4) COPD with acute exacerbation: (5) Peripheral vascular disease: (6) COPD (chronic obstructive pulmonary disease): Qualifiers: COPD type: COPD with acute exacerbation Qualified Code(s): J44.1 - Beer Runner darcy obstructive pulmonary disease with (acute) exacerbation (7) ESRD on dialysis: (8) End stage COPD: Plan Patient is agreeable to speak with the hospice team She is doing much better on 3 L of oxygen 100% saturation Blood gas reviewed No fever Patient does have inhalers breathing regimen and BiPAP at home End-stage renal disease Tuesday Does not look fluid overloaded at this time Blood pressure improved Full code for now High risk for deterioration Goals of care discussed again Attestations Medical Necessity Statement*: We will update disability case manager, Diagnoses History of laparoscopic cholecystectomy Z90.49 Hypothyroidism E03.9 Hypothyroidism type: acquired Anxiety F41.9 COPD with acute exacerbation J44.1 Peripheral vascular disease I73.9 COPD (chronic obstructive pulmonary disease) J44.1 COPD type: COPD with acute exacerbation ESRD on dialysis N18.6; Z99.2 End stage COPD J44.9
[2022-11-28 13:07] LABS: Glucose Point of Care 31 mg/dL (70-110)
[2022-11-28 13:21] LABS: Glucose Point of Care 187 mg/dL (70-110)
[2022-11-28] MEDS: BuSPIRONE 10 mg Tablet 15 MG PO ×2 (13:37→23:57)
[2022-11-28] MEDS: predniSONE 5 mg Tablet PO (13:37)
[2022-11-28] MEDS: metoprolol tartrate 50 mg Tablet PO ×2 (13:37→23:58)
[2022-11-28 14:42] LABS: Glucose Point of Care 115 mg/dL (70-110)
[2022-11-28 15:38] LABS: Glucose Point of Care 82 mg/dL (70-110)
[2022-11-28 16:11] LABS: ABG PH Result 7.26 (7.35-7.45); Alveolar-Arterial Oxygen Gradi 11.4 mmHg (5-10); Arterial Blood Gas Hematocrit 37.8 % (37-47); Base Excess ABG -2.4 mmol/L (-2.0-2.0); Blood Gas Operator Identificat glc; Blood Gas Sample Site Brachial, right; Blood Gas Sample Type Arterial; Carboxyhemoglobin 1.3 %THgb (0.4-20.1); HCO3 ABG 25.4 mmol/L (22-26); HGB O2 Sat 90.7 % (95-100); Ionized Calcium Level - ABG 1.2 mmol/L (1.1-1.4); Methemoglobin 0.5 % (0.4-1.5); Oxygen Device NC; Oxygen Saturation ABG 92.4; PO2 ABG 72.9 mmHg (80.0-100.0); Potassium Level - ABG 4.8 mmol/L (3.5-5.0); Total Hemoglobin 12.3 g/dL (12-16)
[2022-11-28 16:12] LABS: Glucose Point of Care 78 mg/dL (70-110)
--- NOTE | 2022-11-28 16:21 | XRR_ITS ---
PROCEDURE INFORMATION: Exam: XR Chest Exam date and time: 11/28/2022 4:40 PM Age: 67 years old Clinical indication: Shortness of breath; Additional info: SOB TECHNIQUE: Imaging protocol: Radiologic exam of the chest. Views: 1 view. COMPARISON: CR (CHEST, ) 11/26/2022 4:58 PM FINDINGS: Tubes, catheters and devices: Right central line extends the right atrium. Lungs: Unremarkable. No consolidation. Pleural spaces: Unremarkable. No pleural effusion. No pneumothorax. Heart/Mediastinum: Unremarkable. No cardiomegaly. Vasculature: There is an aortic stent in place stable since prior Bones/joints: Unremarkable. XR/XR chest 1V portable [id number] IMPRESSION: 1. No acute findings. 2. Right central line in the right atrium 3. Stable aortic stent
--- NOTE | 2022-11-28 16:38 | ECG_ITS ---
[facility] [place] Date: 2022-11-28 Pat Name: Hali James Department: Room: 255 Gender: Female Personal Care Aid: : 1955 Requested By: Volodymyr Duran Order Number: [id number] Wil MD: Victor Hugo Gonzalez M.D. Measurements Intervals [place] Rate: 103 P: 87 MO: 107 QRS: 84 QRSD: 74 T: 36 QT: 353 QTc: 464 Interpretive Statements SINUS TACHYCARDIA WITH SHORT MO INTERVAL VOLTAGE CRITERIA FOR LVH [MEETS CRITERIA IN ONE OF: R(aVL), S(V1), R(V5), R(V5/V6)+S(V1)] NONSPECIFIC ST & T-WAVE ABNORMALITY Compared to ECG 11/09/2022 11:44:53 T-wave abnormality now present Sinus rhythm no longer present Electronically Signed On 11-28-2022 19:25:00 CDT by Victor Hugo Gonzalez M.D. [id number]
--- NOTE | 2022-11-28 16:46 | PM.CCNAC ---
Critical Care Event Note The high probability of a clinically significant, sudden or life threatening deterioration of the patient's [] system(s) required my full and direct attention, intervention and personal management. The critical care time is as shown. This time is in addition to time spent performing any reported procedures but includes the following: [x] Data and vital sign review and interpretation [x] Patient assessment, examination and intervention [x] Documentation [x] Medication orders and management Critical Care Time Code activated: No Critical Care Time (min): 30 Additional information about critical care time: Patient was seen this evening, as nursing staff were concerned as patient was becoming more confused, more restless, she was acting her normal self -Reviewed her ABG, she looks like she is in hypercarbic respiratory failure, advised nursing staff to place her on BiPAP -Last blood sugar was in the 80s, she is been-hypoglycemia I advised nursing staff to give her an amp of D50 -Reviewed her chart in detail, repeated blood work, chest x-ray -Saw patient on the floors, she is alert oriented x3, following commands no facial droop no slurring of words equal strength bilaterally, she has significant cachexia, protein calorie malnutrition, she is on BiPAP tolerating well, able to answer questions -She does often doze off during questions, -Possibly altered mental status secondary to hypercarbia, advised to keep on BiPAP she asked me when she can eat food I asked her to keep on the BiPAP for this and allow her to that she can have dinner and then put it back on -Denies any chest pain, palpitations, shortness of breath, she is complaining of some some abdominal pain she points to her abdominal station scar from her gallbladder surgery -Abdomen soft, nontender, good bowel sounds -I have reached out to nephrology, she is possibly in respiratory failure, worsening respiratory failure from fluid overload we will ask them to diuresis -She has diminished breath sounds bilaterally, no wheezing, no crackles -We will monitor mentation closely, monitor blood sugars closely -Spoke to nursing staff, spoke to patient, a process of speaking to needle valve operator Coding Level of Care Code Acute Code for Chg Fwd
[2022-11-28 16:51] LABS: Basophils % 0.3 %; Hematocrit 42.1 % (37.0-47.0); Hemoglobin 11.6 g/dL (11.5-15.3); Lymphocytes # 2.3 10^3/uL (0.8-4.8); Lymphocytes % 20.4 %; Mean Corpuscular HGB Conc 27.6 g/dL (30.0-36.0); Mean Corpuscular Hemoglobin 29.4 pg (28.0-34.0); Mean Corpuscular Volume 106.9 fl (81-99); Mean Platelet Volume 10.1 fL (7.4-10.4); Monocytes # 0.7 10^3/uL (0.2-0.9); Monocytes % 6.2 %; Neutrophils # 8.37 10^3/uL (1.8-7.7); Neutrophils % 72.8 %; Nucleated Red Blood Cells % 0.3 %; Platelet Count 126 10^3/cmm (130-400); Red Blood Count 3.94 10^6/uL (4.1-5.3); White Blood Count 11.5 10^3/uL (4.0-10.0)
[2022-11-28 17:15] LABS: Ammonia 41 umol/L (11-51)
[2022-11-28 17:22] LABS: Procalcitonin 1.33 ng/mL (0-0.5)
[2022-11-28 17:34] LABS: Blood Urea Nitrogen 33 mg/dL (8-23); C Reactive Protein 61.2 mg/L (0.0-4.9); Calcium 8.2 mg/dL (8.5-10.5); Carbon Dioxide 22 mmol/L (22-29); Chloride 96 mmol/L (98-107); Glomerular Filtration Rate 7.9 mL/min (90-130); Glucose 68 mg/dL (65-115); Osmolality Calculated 290 mOsm/kg (285-295); Sodium 137 mmol/L (136-145)
[2022-11-28 17:35] LABS: Glucose Point of Care 71 mg/dL (70-110)
[2022-11-28 17:41] LABS: Troponin(5th) Baseline 476 ng/L (0-10)
[2022-11-28 17:48] LABS: NT Pro B Type Natriuretic Pept > 70000 pg/mL (0-125)
--- NOTE | 2022-11-28 18:29 | ECG_ITS ---
[facility] Test Date: 2022-11-28 Pat Name: Hali James Department: Room: 255 Gender: Female Optometric Aide: : 1955 Requested By: Volodymyr Duran Order Number: [id number] Wil MD: Victor Hugo Gonzalez M.D. Measurements Intervals [place] Rate: 107 P: 80 AK: 127 QRS: 85 QRSD: 77 T: 96 QT: 312 QTc: 417 Interpretive Statements SINUS TACHYCARDIA NONSPECIFIC ST & T-WAVE ABNORMALITY Compared to ECG 11/28/2022 16:38:05 Short [place] interval no longer present Left ventricular hypertrophy no longer present T-wave abnormality still present Electronically Signed On 11-28-2022 19:26:13 CDT by Victor Hugo Gonzalez M.D. [id number]
--- NOTE | 2022-11-28 18:35 | PM.PN ---
Subjective Subjective: c/o SOB Medications: Reviewed: Yes Vitals/I&O/Wt Last Vital Signs Temp 98.6 F 11/28/22 15:00 Pulse 115 H 11/28/22 16:25 Resp 16 11/28/22 15:00 BP 149/73 11/28/22 15:00 Pulse Ox 93 11/28/22 16:25 O2 Del Method Nasal Cannula 11/28/22 15:00 O2 Flow Rate 3 11/28/22 13:43 FiO2 30 11/28/22 16:25 11/28/22 11/28/22 11/28/22 06:59 14:59 22:59 Intake Total 360 / 360 120 / 480 Balance 360 / 360 120 / 480 Weight last 48 hrs Weight 31.9 kg Weight 30.844 kg Physical Exam Narrative: Patient is awake alert, no acute distress, complains of nausea, 2 L of nasal cannula S1-S2 regular rate and rhythm per report Decreased breath sounds at bases per report No pedal edema Data 11/28/22 16:45 11/28/22 16:45 A&P Assessment and plan (1) ESRD on dialysis: Plan 1. End-stage renal disease: HD per TTS schedule as outpatient, status post HD Tuesday , HD again today for volume load 2. Acute on chronic respiratory failure: Multifactorial secondary to COPD volume overload, HD as above 3. Hypertension: Blood pressure elevated, restart home meds. Patient evaluated using audiovisual cart. Time spent 30 minutes Attestations Medical Necessity Statement*: per medicine Coding Level of Care Code Acute Code for Chg Fwd Diagnoses ESRD on dialysis N18.6; Z99.2
[2022-11-28 19:17] LABS: Troponin 5 2HR Delta 3.1 ABS# (0-10)
[2022-11-28 19:18] LABS: Troponin 5 2HR 479.1 ng/L (0-10)
--- NOTE | 2022-11-28 19:47 | PC.HD ---
Upon arrival to patient's room, patient was found to be on BiPap and extremely anxious, trembling and sitting stiffly. Primary RN states patient had just received pain medication and anxiety medication, although patient continued to ask for both. Patient very nervous and panicky about having the correct O2 being delivered via BiPap. Explained that patient was receiving oxygen from the wall via her BiPap mask, and she voiced understanding and calmed herself. Son at bedside for emotional comfort and support of patient. Patient has a history of dropping her BP significantly during HD and not tolerating sufficient fluid removal. PRN albumin was initiated upon treatment start with hopes the patient will tolerate necessary fluid removal and maintain satisfactory blood pressures without becoming symptomatic.
[2022-11-28 20:22] LABS: Glucose Point of Care 91 mg/dL (70-110)
--- NOTE | 2022-11-28 22:51 | PC.HD ---
Treatment was terminated per carbon paste mixer operator 20 minutes early and fluid removal goal was not bet due to patient's low BPs, despite administration of albumin x2, lowering of dialysate temperature, and lowering of UF rate. As soon as patient was off the dialysis circuit, her BP shwetha back up to a pre-dialysis reading of 171/83, heart rate 103. This is fairly common for this patient. RT was called to assist with BiPap machine, and patient was returned to her room.
[2022-11-28 23:09] LABS: Glucose Point of Care 143 mg/dL (70-110)
[2022-11-28 23:41] LABS: Troponin 5 6HR 379.6 ng/L (0-10)
[2022-11-29] VITALS (14 sets, daily range): BP systolic 91–140; BP diastolic 49–69; PULSE 58–93; RESP 15–21; TEMP 36.1–36.7; O2SAT 94–100
[2022-11-29] MEDS: morphine IR 15 mg Tablet PO (02:40)
--- NOTE | 2022-11-29 03:02 | PC.PHAR ---
Heparin Drip Protocol request was made due to patient weight of 31 kg, our protocol doesn't go down that low. With the help of data warehouse architect, Brigida we came up with a dose of Heparin bolus of 1550 units (50 units/kg) 14 units/kg/hr for 31 kg we come up with 434 units/hr and 8.68 ml/hr. This was approved with Dr Padilla. Thank you, Lucila Salcedo [facility]
--- NOTE | 2022-11-29 04:36 | PC.NURSE ---
Heparin drip ordered on but at beginning of shift 1900 patient was going to dialysis, Heparin drip was held due to dialysis, patient arrived back to the floor at 2242, patients weight is 68.2 pounds which is lower than our weight based heparin drip protocol, Dr. Padilla was messaged for heparin drip orders at 2348, this nurse called Dr. Padilla at 11/29/22 0118 for heparin drip orders and she responded call pharmacy for dosing Nurse called pharmacy at 0120 and spoke with pharmacist who said she would look into it and call back. At 0213 Health Service Worker delivered the heparin drip protocol flow sheet with the pharmacists recommendations to the nurse and stated it was pending the Doctors approval. Pharmacist and House supe voalted Dr. Padilla for approval. at 0302 pharmacist calls nurse to let nurse know Dr. Padilla had voalted and approved the dosing for the heparin drip. patient pulled Iv out at 0330, IV access re-established at 0500.
[2022-11-29 04:56] LABS: Glucose Point of Care 51 mg/dL (70-110)
[2022-11-29 05:50] LABS: Glucose Point of Care 65 mg/dL (70-110)
[2022-11-29] MEDS: levothyroxine 75 mcg Tablet PO (06:21)
[2022-11-29 06:28] LABS: Basophils % 0.3 %; Hematocrit 41.1 % (37.0-47.0); Lymphocytes # 2.2 10^3/uL (0.8-4.8); Lymphocytes % 15.8 %; Mean Corpuscular HGB Conc 26.8 g/dL (30.0-36.0); Mean Corpuscular Hemoglobin 29.3 pg (28.0-34.0); Mean Corpuscular Volume 109.3 fl (81-99); Mean Platelet Volume 9.3 fL (7.4-10.4); Monocytes # 0.7 10^3/uL (0.2-0.9); Monocytes % 5.2 %; Neutrophils # 10.84 10^3/uL (1.8-7.7); Neutrophils % 78.5 %; Nucleated Red Blood Cells % 0.1 %; Platelet Count 96 10^3/cmm (130-400); Red Blood Count 3.76 10^6/uL (4.1-5.3); Red Cell Distribution Width 16.5 % (12.1-15.1); White Blood Count 13.8 10^3/uL (4.0-10.0)
--- NOTE | 2022-11-29 06:46 | P.PN_ITS ---
Subjective Subjective: Patient was fluid overloaded yesterday required another session of dialysis Hypercapnic respite failure required BiPAP Hypoglycemia required D50 I spoke to her sister yesterday I did update her about the hospice referral NSTEMI protocol has been initiated Vitals/I&O/Wt Last Vital Signs Temp 97.0 F L 11/29/22 04:59 Pulse 93 11/29/22 04:59 Resp 21 H 11/29/22 04:59 BP 140/66 11/29/22 04:59 Pulse Ox 98 11/29/22 04:59 O2 Del Method BiPAP 11/29/22 04:59 O2 Flow Rate 3.5 11/28/22 20:00 FiO2 30 11/28/22 20:14 11/28/22 11/28/22 11/29/22 14:59 22:59 06:59 Intake Total 360 / 360 480 / 840 170 / 1010 Output Total 2151 / 2151 Balance 360 / 360 -1671 / -1311 170 / -1141 Weight last 48 hrs Weight 30.935 kg Weight 31.7 kg Weight 31.9 kg Physical Exam Narrative: Frail female Diminished breath sounds with crackles Abdomen soft Cachectic malnourished GCS 15 Nonfocal neuro exam Anxious appearing Pursed lip breathing Data 11/29/22 06:16 11/29/22 06:16 A&P Assessment and plan (1) Acute and chronic respiratory failure with hypercapnia: (2) End stage COPD: (3) History of laparoscopic cholecystectomy: (4) COPD with acute exacerbation: (5) Acute and chronic respiratory failure: (6) Protein calorie malnutrition: (7) Physical deconditioning: (8) Muscle wasting: (9) Protein-energy malnutrition: (10) History of stent insertion of renal artery: (11) AAA (abdominal aortic aneurysm): Qualifiers: Presence of rupture: without rupture Qualified Code(s): I71.4 - Abdominal aortic aneurysm, without rupture (12) NSTEMI (non-ST elevated myocardial infarction): (13) ESRD on dialysis: Plan Non-STEMI Started ACS protocol yesterday for high troponin No significant chest pain Recent stress test was unremarkable COPD exacerbation/end-stage COPD Patient requested hospice referral yesterday continue budesonide and prednisone Patient require anxiolytics and BiPAP, she is BiPAP dependent End-stage renal disease Tuesday Another session of dialysis yesterday for volume overload and respiratory distress Family meeting conducted today, son and daughter at the bedside, sister was on the phone, patient is agreeable to consider palliative referral for now she is not sure about her goals of care she would like to discuss with palliative team, family is receptive they do understand that she is not doing well she has end- stage COPD and end-stage renal disease She carries guarded prognosis Patient was seen twice this morning Attestations Medical Necessity Statement*: Continue medical management Diagnoses Acute and chronic respiratory failure with hypercapnia J96.22 End stage COPD J44.9 History of laparoscopic cholecystectomy Z90.49 COPD with acute exacerbation J44.1 Acute and chronic respiratory failure J96.20 Protein calorie malnutrition E46 Physical deconditioning R53.81 Muscle wasting M62.50 History of stent insertion of renal artery Z98.890 AAA (abdominal aortic aneurysm) I71.4 Presence of rupture: without rupture NSTEMI (non-ST elevated myocardial infarction) I21.4 ESRD on dialysis N18.6; Z99.2
[2022-11-29 07:02] LABS: Glucose Point of Care 159 mg/dL (70-110)
[2022-11-29 07:12] LABS: Blood Urea Nitrogen 14 mg/dL (8-23); Calcium 9.1 mg/dL (8.5-10.5); Carbon Dioxide 20 mmol/L (22-29); Chloride 99 mmol/L (98-107); Glomerular Filtration Rate 13.6 mL/min (90-130); Glucose 66 mg/dL (65-115); Osmolality Calculated 283 mOsm/kg (285-295); Sodium 137 mmol/L (136-145)
[2022-11-29 07:13] LABS: Anion Gap 22.1 (5-19); Potassium 4.1 mmol/L (3.5-5.1)
[2022-11-29] MEDS: budesonide 0.5 mg/2 mL Neb INHALATION ×2 (07:49→20:52)
[2022-11-29] MEDS: ipratropium-albuterol 3 mL Neb INHALATION (07:49)
[2022-11-29 08:40] LABS: Glucose Point of Care 78 mg/dL (70-110)
[2022-11-29] MEDS: BuSPIRONE 10 mg Tablet 15 MG PO ×2 (08:44→18:08)
[2022-11-29] MEDS: ALPRAZolam 0.5 mg Tablet PO (08:44)
[2022-11-29] MEDS: predniSONE 5 mg Tablet PO (08:44)
[2022-11-29] MEDS: metoprolol tartrate 50 mg Tablet PO (08:46)
[2022-11-29] MEDS: sennosides-docusate Tablet 1 TAB PO (08:46)
[2022-11-29] MEDS: pantoprazole DR 40 mg Tablet PO (08:47)
[2022-11-29] MEDS: citalopram 20 mg Tablet 40 MG PO (08:47)
[2022-11-29] MEDS: cefTRIAXone 1,000 MG in sodium chloride 0.9% (plus) 50 ML 100 MG IV (08:50)
--- NOTE | 2022-11-29 09:31 | PM.PN ---
Subjective Subjective: c/o anxiety s/p HD last night , only 1800 cc UF due to hypotension on 3l fio2 Medications: Reviewed: Yes Vitals/I&O/Wt Last Vital Signs Temp 97.9 F 11/29/22 08:00 Pulse 79 11/29/22 08:04 Resp 18 11/29/22 08:00 BP 128/69 11/29/22 08:00 Pulse Ox 96 11/29/22 08:00 O2 Del Method Nasal Cannula 11/29/22 08:00 O2 Flow Rate 3 11/29/22 07:51 FiO2 30 11/28/22 20:14 11/28/22 11/29/22 11/29/22 22:59 06:59 14:59 Intake Total 480 / 890 170 / 1060 Output Total 2151 / 2151 Balance -1671 / -1261 170 / -1091 Weight last 48 hrs Weight 30.935 kg Weight 31.7 kg Weight 31.9 kg Physical Exam Narrative: Patient is awake alert, no acute distress, complains of nausea, 2 L of nasal cannula S1-S2 regular rate and rhythm per report Decreased breath sounds at bases per report No pedal edema Data 11/29/22 06:16 11/29/22 06:16 A&P Assessment and plan (1) ESRD on dialysis: Plan 1. End-stage renal disease: HD per TTS schedule as outpatient, status post HD Tuesday , HD again yesterday for volume load but only 1800 ML UF due to volume overload 2. Acute on chronic respiratory failure: Multifactorial secondary to COPD volume overload, HD as above 3. Hypertension: Blood pressure elevated, restart home meds. Patient evaluated using audiovisual cart. Time spent 30 minutes Attestations Medical Necessity Statement*: per medicine Coding Level of Care Code Acute Code for Chg Fwd Diagnoses ESRD on dialysis N18.6; Z99.2
[2022-11-29] MEDS: HYDROcodone-acetaminophen 5-325 mg Tablet 1 TAB PO (10:26)
[2022-11-29] MEDS: sevelamer 800 mg Tablet 400 MG PO ×2 (12:11→18:08)
[2022-11-29] MEDS: isosorbide mononitrate ER 30 mg Tablet PO ×2 (12:11→20:29)
[2022-11-29 12:22] LABS: Glucose Point of Care 103 mg/dL (70-110)
[2022-11-29 16:27] LABS: Glucose Point of Care 131 mg/dL (70-110)
[2022-11-29 20:05] LABS: Glucose Point of Care 117 mg/dL (70-110)
[2022-11-30] VITALS (8 sets, daily range): BP systolic 94–143; BP diastolic 53–73; PULSE 59–86; RESP 15–20; TEMP 36.2–37.2; O2SAT 93–100
[2022-11-30] MEDS: levothyroxine 75 mcg Tablet PO (05:28)
[2022-11-30] MEDS: HYDROcodone-acetaminophen 5-325 mg Tablet 1 TAB PO (06:26)
[2022-11-30 06:45] LABS: Glucose Point of Care 98 mg/dL (70-110)
[2022-11-30 06:48] LABS: Anion Gap 20.1 (5-19); Blood Urea Nitrogen 31 mg/dL (8-23); Calcium 9.1 mg/dL (8.5-10.5); Carbon Dioxide 25 mmol/L (22-29); Chloride 99 mmol/L (98-107); Glomerular Filtration Rate 7.8 mL/min (90-130); Glucose 98 mg/dL (65-115); Osmolality Calculated 295 mOsm/kg (285-295); Potassium 5.1 mmol/L (3.5-5.1); Sodium 139 mmol/L (136-145)
[2022-11-30] MEDS: ALPRAZolam 0.5 mg Tablet PO ×2 (07:33→17:37)
[2022-11-30] MEDS: budesonide 0.5 mg/2 mL Neb INHALATION ×2 (08:29→20:01)
[2022-11-30] MEDS: ipratropium-albuterol 3 mL Neb INHALATION (08:29)
[2022-11-30] MEDS: isosorbide mononitrate ER 30 mg Tablet PO ×2 (09:08→16:01)
[2022-11-30] MEDS: sevelamer 800 mg Tablet 400 MG PO ×2 (09:08→17:37)
[2022-11-30] MEDS: citalopram 20 mg Tablet 40 MG PO (09:09)
[2022-11-30] MEDS: pantoprazole DR 40 mg Tablet PO (09:09)
[2022-11-30] MEDS: sennosides-docusate Tablet 1 TAB PO (09:09)
[2022-11-30] MEDS: BuSPIRONE 10 mg Tablet 15 MG PO ×2 (09:09→17:37)
[2022-11-30] MEDS: predniSONE 5 mg Tablet PO (09:09)
--- NOTE | 2022-11-30 09:42 | P.PN_ITS ---
Subjective Subjective: Detailed family meeting conducted yesterday Palliative team was able to see her at the bedside however patient has not been able to make a decision yet I have asked my social services technician to arrange for another palliative meeting today family, DPOA and patient should be able to make a decision today This morning patient was fatigued and lethargic I have asked RT to keep her on BiPAP Vitals/I&O/Wt Last Vital Signs Temp 97.9 F 11/30/22 08:00 Pulse 60 11/30/22 08:39 Resp 16 11/30/22 08:29 BP 95/55 11/30/22 08:00 Pulse Ox 100 11/30/22 08:29 O2 Del Method Nasal Cannula 11/30/22 08:29 O2 Flow Rate 3 11/30/22 08:29 FiO2 30 11/29/22 20:52 11/29/22 11/30/22 11/30/22 22:59 06:59 14:59 Intake Total 480 / 560 Balance 480 / 560 Weight last 48 hrs Weight 30.935 kg Weight 31.7 kg Physical Exam Narrative: Patient is verbally directable Getting breathing regimen Able to follow commands Fatigued and lethargic Bilateral diminished airflow without active wheezing Mild rhonchi noted Cachectic malnourished Clinically does not look fluid overloaded Data 11/29/22 06:16 11/30/22 06:00 A&P Assessment and plan (1) Acute and chronic respiratory failure with hypercapnia: (2) End stage COPD: (3) Malnourished: (4) Protein-energy malnutrition: (5) Protein calorie malnutrition: (6) Physical deconditioning: (7) Muscle wasting: (8) Anxiety about health: (9) Peripheral vascular disease: Plan Today I am asking social services technician to arrange another meeting with the palliative team to facilitate the patient and the family to make their decision Patient seems to be in denial about her underlying end-stage COPD and end-stage renal disease he keeps asking what she can do to reverse dialysis and her COPD Her questions were answered to her satisfaction Family is well receptive, they do understand the gravity of the situation Medical DPOA is her sister Monisha We are continuing prednisone, DuoNeb, inhaled steroids for now Patient is full code At risk of deterioration High risk for mortality morbidity Patient is getting BiPAP dependent Hypoglycemia slightly better Dialysis dependent end-stage renal disease Tuesday Attestations Medical Necessity Statement*: Continue medical management Diagnoses Acute and chronic respiratory failure with hypercapnia J96.22 End stage COPD J44.9 Malnourished E46 Protein-energy malnutrition E46 Physical deconditioning R53.81 Muscle wasting M62.50 Anxiety about health F41.8 Peripheral vascular disease I73.9
--- NOTE | 2022-11-30 09:43 | PM.PN ---
Subjective Subjective: no new complaints Medications: Reviewed: Yes Vitals/I&O/Wt Last Vital Signs Temp 97.9 F 11/30/22 08:00 Pulse 60 11/30/22 08:39 Resp 16 11/30/22 08:29 BP 95/55 11/30/22 08:00 Pulse Ox 100 11/30/22 08:29 O2 Del Method Nasal Cannula 11/30/22 08:29 O2 Flow Rate 3 11/30/22 08:29 FiO2 30 11/29/22 20:52 11/29/22 11/30/22 11/30/22 22:59 06:59 14:59 Intake Total 480 / 560 Balance 480 / 560 Weight last 48 hrs Weight 30.935 kg Weight 31.7 kg Physical Exam Narrative: Patient is awake alert, no acute distress, complains of nausea, 2 L of nasal cannula S1-S2 regular rate and rhythm per report Decreased breath sounds at bases per report No pedal edema Data 11/29/22 06:16 11/30/22 06:00 A&P Assessment and plan (1) ESRD on dialysis: Plan 1. End-stage renal disease: HD per TTS schedule as outpatient, status post HD Tuesday and tuesday for volume load , HD again today 2. Acute on chronic respiratory failure: Multifactorial secondary to COPD volume overload, HD as above 3. Hypertension: Blood pressure elevated, restart home meds. Patient evaluated using audiovisual cart. Time spent 30 minutes Attestations Medical Necessity Statement*: per medicine Coding Level of Care Code Acute Code for Chg Fwd Diagnoses ESRD on dialysis N18.6; Z99.2
--- NOTE | 2022-11-30 10:00 | PC.CHAP ---
Pastoral Care Encounter/Spiritual Assessment Type of Contact [] Declined drying oven tender visit [] Patient/Family/Request visit [] Outpatient visit [] Follow-up visit [] Physician referral [] Code/Alert [x] Routine visit [] Staff referral [] Actively dying [] Patient sleeping [] Family support [] [] Out of room [] Palliative care [] [] Receiving care in room [] Pre-surgical visit [] Trauma [] Long length of stay [] ICU visit [] Other: Relational/Emotional Strength [x] Patient feels connected with others/family/visitors/staff [] Distress [] Loneliness/isolation [] Abandonment Spirituality of Patient [x] Person of Yudy [] Attends Sikhism of their Yudy [x] Believes in Prayer [] Reads Bible or Judaism materials [] There are Spiritual issues to be addressed Interventions [x] Prayer [] Active listening [] Non-anxious presence [x] Spiritual/emotional support [] Crisis/trauma care [] Spiritual counseling [] Bereavement support [] Provided bereavement packet [] Provided Bible/devotional materials [] Provided toy/stuffed animal, coloring book to patient or family member [] Provided Communion [] Anointing/[place] [] Salvation [x] Completed spiritual assessment [] Other: Impact on Illness or Injury [] Angry [] Fearful [] Anxious [] Often cries [] Exhaustion [] Unable to work [] Unable to attend mandaen [] Unable to walk/stand [] Unable to read [] Unable to drive [] Unable to eat/drink [] Unable to sleep [] Unable to be with family [] Patient intubated [] Other: Summary Time spent with patient 5 min
[2022-11-30 10:51] LABS: Glucose Point of Care 114 mg/dL (70-110)
[2022-11-30] MEDS: midodrine 5 mg TABLET 10 MG PO (11:28)
[2022-11-30] MEDS: albumin 12.5 GM/50 ML VIAL IV (11:29)
[2022-11-30] MEDS: heparin, porcine 1,000 unit/mL INJ 10 mL 10000 UNIT INTRACATH (11:29)
--- NOTE | 2022-11-30 13:56 | PC.HD ---
Due to patient's hx of severe hypotension during HD, this RN began infusing albumin 25% immediately upon treatment initiation. PRN orders for three 50-mL bags. Patient's BP dropped immediately upon treatment initiation. UF goal was reduced to minimum at 300 mL/hour. Health Evaluator contacted, who ordered 10 mg midodrine po. Patient received midodrine near conclusion of 3rd albumin infusion. Approximately 20 minutes later, patient's BP improved enough that this RN was able to attempt more fluid removal. UF goal was increased to 1000 mL/hour, then to 1200 mL/hour, with no drop in BP or physical indications of fluid removal being overly aggressive. Patient's fluid removal was 1371 net; UF goal was 2500. Health Evaluator and primary RN aware. Patient returned to her room and placed on BiPap by RT.
[2022-11-30] MEDS: lanolin oint 7 gm 1 APPLIC TOPICAL (16:51)
[2022-11-30 16:53] LABS: Glucose Point of Care 124 mg/dL (70-110)
[2022-11-30 20:36] LABS: Glucose Point of Care 117 mg/dL (70-110)
[2022-12-01] VITALS (7 sets, daily range): BP systolic 143–166; BP diastolic 65–78; PULSE 72–83; RESP 14–18; TEMP 36.7–37; O2SAT 95–99
[2022-12-01] MEDS: ALPRAZolam 0.5 mg Tablet PO (02:52)
[2022-12-01] MEDS: levothyroxine 75 mcg Tablet PO (05:16)
[2022-12-01 07:16] LABS: Glucose Point of Care 92 mg/dL (70-110)
[2022-12-01] MEDS: budesonide 0.5 mg/2 mL Neb INHALATION (07:59)
[2022-12-01] MEDS: ipratropium-albuterol 3 mL Neb INHALATION (07:59)
[2022-12-01] MEDS: predniSONE 5 mg Tablet PO (08:50)
[2022-12-01] MEDS: BuSPIRONE 10 mg Tablet 15 MG PO (08:50)
[2022-12-01] MEDS: hyDROXYzine 25 mg Capsule 50 MG PO (08:50)
[2022-12-01] MEDS: sennosides-docusate Tablet 1 TAB PO (08:51)
[2022-12-01] MEDS: sevelamer 800 mg Tablet 400 MG PO ×2 (08:51→12:28)
[2022-12-01] MEDS: citalopram 20 mg Tablet 40 MG PO (08:51)
[2022-12-01] MEDS: isosorbide mononitrate ER 30 mg Tablet PO (08:51)
[2022-12-01] MEDS: pantoprazole DR 40 mg Tablet PO (08:51)
[2022-12-01] MEDS: morphine IR 15 mg Tablet PO (08:51)
--- NOTE | 2022-12-01 08:52 | PM.PN ---
Subjective Subjective: pt crying denies any complaints Medications: Reviewed: Yes Vitals/I&O/Wt Last Vital Signs Temp 98.1 F 12/01/22 07:59 Pulse 82 12/01/22 08:06 Resp 18 12/01/22 07:59 BP 166/78 12/01/22 07:59 Pulse Ox 99 12/01/22 07:59 O2 Del Method Nasal Cannula 12/01/22 07:59 O2 Flow Rate 3 12/01/22 07:59 FiO2 30 11/30/22 20:00 11/30/22 12/01/22 12/01/22 22:59 06:59 14:59 Intake Total 120 / 1020 Balance 120 / -801 Weight last 48 hrs Weight 31.9 kg Physical Exam Narrative: Patient is awake alert, no acute distress, complains of nausea, 2 L of nasal cannula S1-S2 regular rate and rhythm per report Decreased breath sounds at bases per report No pedal edema Data 11/29/22 06:16 11/30/22 06:00 A&P Assessment and plan (1) ESRD on dialysis: Plan 1. End-stage renal disease: HD per TTS schedule as outpatient, ss/p HD yesterday 2. Acute on chronic respiratory failure: Multifactorial secondary to COPD volume overload, HD as above 3. Hypertension: Blood pressure elevated, restart home meds. I was informed by RN that goals of care were discussed with pt and family re: palliative care. No final decisions made yet. If pt chooses hospice , will dc dialysis Patient evaluated using audiovisual cart. Time spent 30 minutes Attestations Medical Necessity Statement*: per medicine Coding Level of Care Code Acute Code for Chg Fwd Diagnoses ESRD on dialysis N18.6; Z99.2
--- NOTE | 2022-12-01 10:03 | PM.DCS ---
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, use BiPAP at home, hospice was offered/comfort care in the past but patient refused and stated that she would like to see her younger kids grow up, she has had multiple admissions in the past for fluid overload due to end-stage renal disease Tuesday dialysis dependency, this time she was admitted for COPD exacerbation for the similar reason, she remained afebrile, her blood pressure is labile drops with hemodialysis and then she becomes hypertensive, patient does have [facility] home health services, recent ABG showed compensated pH with without significant hypoxia, patient will be discharged home with [facility] home health services. She is at risk of readmissions because of her poor quality of life, end-stage renal disease, dialysis dependency and end-stage COPD. This time at least 3-4 detailed family meetings conducted, palliative team was referred, after multiple [id number] conversations and family meetings patient agreed with palliative care, her son and sister both in agreement with palliative care. Medical power of trust and estates attorney is her sister who is in [place], son is at the bedside. Patient carries guarded prognosis, she has significant muscle mass loss, she is cachectic and malnourished, Patient is stating that for palliative care she would like to continue hemodialysis, she is not ready to end up for dialysis at this point and start hospice care however I do believe with recurrent admissions this might change and she might opt for hospice in future Physical Exam Narrative: GCS 15 Awake and alert S1, S2 Abdomen soft Currently on 3 L cannula saturating 97% Anxious appearing Cachectic, malnourished Muscle mass loss Discharge Data Studies Completed and Pending Completed Studies During Hospitalization Category Date Time Status XR chest 1V portable [id number] Routine Exams 11/28/22 16:21 Completed XR chest 1V portable [id number] Stat Exams 11/26/22 16:43 Completed Pending at discharge Category Date Time Status Urinalysis Stat Lab 11/26/22 16:00 Ordered Radiology Impressions Chest X-Ray 11/28/22 16:21 IMPRESSION: 1. No acute findings. 2. Right central line in the right atrium 3. Stable aortic stent Laboratory Results WBC 13.8 10^3/uL (4.0-10.0) H 11/29/22 06:16 RBC 3.76 10^6/uL (4.1-5.3) L 11/29/22 06:16 Hgb 11.0 g/dL (11.5-15.3) L 11/29/22 06:16 Hct 41.1 % (37.0-47.0) 11/29/22 06:16 MCV 109.3 fl (81-99) H 11/29/22 06:16 MCH 29.3 pg (28.0-34.0) 11/29/22 06:16 MCHC 26.8 g/dL (30.0-36.0) L 11/29/22 06:16 RDW 16.5 % (12.1-15.1) H 11/29/22 06:16 Plt Count 96 10^3/cmm (130-400) L 11/29/22 06:16 MPV 9.3 fL (7.4-10.4) 11/29/22 06:16 Neut % (Auto) 78.5 % 11/29/22 06:16 Lymph % (Auto) 15.8 % 11/29/22 06:16 [place] % (Auto) 5.2 % 11/29/22 06:16 Eos % (Auto) 0.0 % 11/29/22 06:16 Baso % (Auto) 0.3 % 11/29/22 06:16 Neut # (Auto) 10.84 10^3/uL (1.8-7.7) H 11/29/22 06:16 Lymph # (Auto) 2.2 10^3/uL (0.8-4.8) 11/29/22 06:16 [place] # (Auto) 0.7 10^3/uL (0.2-0.9) 11/29/22 06:16 Eos # (Auto) 0.0 10^3/uL (0.0-0.8) 11/29/22 06:16 Baso # (Auto) 0.0 10^3/uL (0.0-0.1) 11/29/22 06:16 Nucleated RBC % (auto) 0.1 % 11/29/22 06:16 Nucleated RBCs # 0.0 /100WBC 11/29/22 06:16 Specimen Type Arterial 11/28/22 16:00 Sample Site Brachial, right 11/28/22 16:00 ABG pH 7.26 (7.35-7.45) L 11/28/22 16:00 ABG pCO2 56.0 mmHg (35-45) H 11/28/22 16:00 ABG pO2 72.9 mmHg (80.0-100.0) L 11/28/22 16:00 ABG HCO3 25.4 mmol/L (22-26) 11/28/22 16:00 ABG O2 Saturation 92.4 11/28/22 16:00 ABG Base Excess -2.4 mmol/L (-2.0-2.0) L 11/28/22 16:00 Roly Test N/a 11/28/22 16:00 A-a O2 Gradient 11.4 mmHg (5-10) H 11/28/22 16:00 Hematocrit 37.8 % (37-47) 11/28/22 16:00 Hgb O2 Saturation 90.7 % (95-100) L 11/28/22 16:00 Carboxyhemoglobin 1.3 %THgb (0.4-20.1) 11/28/22 16:00 Methemoglobin 0.5 % (0.4-1.5) 11/28/22 16:00 Total Hemoglobin 12.3 g/dL (12-16) 11/28/22 16:00 Sodium 140.0 mmol/L (131-143) 11/28/22 16:00 Potassium 4.8 mmol/L (3.5-5.0) 11/28/22 16:00 Glucose 83.0 mg/dL (70-115) 11/28/22 16:00 Ionized Calcium 1.2 mmol/L (1.1-1.4) 11/28/22 16:00 O2 Delivery Device Nc 11/28/22 16:00 O2 Liters/Min 3.0 % 11/27/22 08:42 FiO2 32.0 % 11/28/22 16:00 Teaching Artist ID glc 11/28/22 16:00 Sodium 139 mmol/L (136-145) 11/30/22 06:00 Potassium 5.1 mmol/L (3.5-5.1) 11/30/22 06:00 Chloride 99 mmol/L (98-107) 11/30/22 06:00 Carbon Dioxide 25 mmol/L (22-29) 11/30/22 06:00 Anion Gap 20.1 (5-19) H 11/30/22 06:00 BUN 31 mg/dL (8-23) H 11/30/22 06:00 Creatinine 5.5 mg/dL (0.5-0.9) H D 11/30/22 06:00 GFR Calculation 7.8 mL/min (90-130) L 11/30/22 06:00 Glucose 98 mg/dL (65-115) 11/30/22 06:00 POC Glucose 92 mg/dL (70-110) 12/01/22 06:54 Calculated Osmolality 295 mOsm/kg (285-295) 11/30/22 06:00 Calcium 9.1 mg/dL (8.5-10.5) 11/30/22 06:00 Phosphorus 6.0 mg/dL (2.5-4.5) H 11/27/22 04:20 Magnesium 2.0 mg/dL (1.7-2.3) 11/27/22 04:20 Total Bilirubin 0.3 mg/dL (0.15-1.2) 11/26/22 16:20 AST 33 U/L (0-32) H 11/26/22 16:20 ALT 19 U/L (0-33) 11/26/22 16:20 Alkaline Phosphatase 95 U/L (35-105) 11/26/22 16:20 Ammonia 41 umol/L (11-51) 11/28/22 16:45 Troponin T Baseline 476 ng/L (0-10) H* 11/28/22 16:45 Troponin T 120 Minute 479.1 ng/L (0-10) H 11/28/22 18:35 Delta Troponin T 3.1 ABS# (0-10) 11/28/22 18:35 Troponin T Hi Sens 6Hr 379.6 ng/L (0-10) H 11/28/22 22:43 Troponin T Hi Sens 6Hr Delta -96.4 ng/L (0-12) L 11/28/22 22:43 C-Reactive Protein 61.2 mg/L (0.0-4.9) H 11/28/22 16:45 NT-Pro-B Natriuret Pep > 31004 pg/mL (0-125) H 11/28/22 16:45 Total Protein 6.4 g/dL (6.6-8.7) L 11/26/22 16:20 Albumin 4.0 g/dL (3.5-5.2) 11/26/22 16:20 Globulin 2.4 g/dL (1.3-4.6) 11/26/22 16:20 Procalcitonin 1.33 ng/mL (0-0.5) H 11/28/22 16:45 Hep Bs Antigen Non-reactive (Nonreactive) 11/26/22 16:20 Hep Bs Antibody 40.6 (11.5-1000) 11/26/22 16:20 Hep B Core Total Ab Non-reactive (Nonreactive) 11/26/22 16:20 Vitals Last Vital Signs Temp 98.1 F 12/01/22 07:59 Pulse 82 12/01/22 08:06 Resp 18 12/01/22 08:51 BP 166/78 12/01/22 07:59 Pulse Ox 99 12/01/22 07:59 O2 Del Method Nasal Cannula 12/01/22 07:59 O2 Flow Rate 3 12/01/22 07:59 FiO2 30 11/30/22 20:00 Discharge Plan Discharge Patient Disposition: Home Health Service Condition: Serious Prescriptions: New Spiriva Respimat 2.5 mcg/actuation mist 2 inh inhalation DAILY Qty: 4 4RF albuterol sulfate 90 mcg/actuation aerosol powdr breath activated 2 inh inhalation Q6H Qty: 1 3RF Continued epinephrine 0.3 mg/0.3 mL auto-injector 0.3 mg IM Q10M PRN (Reason: Allergic Reaction) Rx Instructions: for 2 doses nitroglycerin [Nitrostat] 0.4 mg tablet, sublingual 0.4 mg SUBLINGUAL Q5M PRN (Reason: Chest Pain) 30 Days Qty: 30 5RF buspirone 15 mg tablet 15 mg PO BID Qty: 60 2RF albuterol sulfate 2.5 mg /3 mL (0.083 %) solution for nebulization 2.5 mg INHALATION QID PRN (Reason: Shortness Of Breath) 30 Days Qty: 75 5RF prednisone 5 mg tablet 5 mg PO DAILY Qty: 30 3RF albuterol sulfate 90 mcg/actuation HFA aerosol inhaler 2 puff INHALATION 6XD PRN (Reason: Shortness Of Breath) Qty: 6.7 5RF MediHoney (honey) 100 % paste 1 applic topical TID Qty: 15 0RF ondansetron 8 mg tablet,disintegrating 8 mg PO Q8H PRN (Reason: nausea and vomiting) Qty: 90 0RF citalopram 40 mg tablet 40 mg PO DAILY@0830 30 Days Qty: 30 2RF azithromycin 250 mg tablet 250 mg PO .COMPLEX 90 Days Qty: 45 0RF Rx Instructions: 250 mg PO on Tuesday; aspirin 81 mg tablet,delayed release (DR/EC) 81 mg PO DAILY@0830 30 Days Qty: 30 5RF hydrocodone-acetaminophen 5-325 mg tablet 1 tab PO BID PRN (Reason: pain/dyspnea) 30 Days Qty: 60 0RF Hold Instructions: Resume on 11/06/22. montelukast 10 mg tablet 10 mg PO DAILY@0830 Qty: 30 5RF omeprazole 40 mg capsule,delayed release(DR/EC) 40 mg PO DAILY@0830 30 Days Qty: 30 5RF fluticasone propionate [Flonase Allergy Relief] 50 mcg/actuation [place],Suspension 2 spray INTRANASAL DAILY PRN (Reason: Allergy Symptoms) ropinirole 1 mg tablet 1 mg PO BEDTIME hydroxyzine HCl 50 mg tablet 50 mg PO QID PRN (Reason: Anxiety) polyethylene glycol 3350 17 gram Powder In Packet 17 g PO DAILY PRN (Reason: constipation) Qty: 30 0RF RenaPlex-D 800 mcg-12.5 mg -2,000 unit tablet 1 tab PO QPM atorvastatin 40 mg tablet 40 mg PO QAM midodrine 5 mg Tablet 5 mg PO DAILY PRN (Reason: on day of dialysis for SBP less than 120 mmhg) Qty: 15 0RF liothyronine 5 mcg Tablet 10 mcg PO DAILY 30 Days Qty: 60 0RF levothyroxine 75 mcg Tablet 75 mcg PO QAM 30 Days Qty: 30 0RF isosorbide mononitrate 30 mg tablet extended release 24 hr 30 mg PO BID@08,16 Qty: 60 0RF metoprolol tartrate 50 mg tablet 50 mg PO BID Qty: 60 0RF sevelamer carbonate 0.8 gram Powder In Packet 0.4 g PO TID Hold Instructions: see nephrology Rx Instructions: must administer with a meal/food oxycodone-acetaminophen 7.5-325 mg tablet 1 tab PO Q6H PRN (Reason: pain) Qty: 20 0RF docusate sodium [DOK] 100 mg capsule 100 mg PO BID Qty: 14 0RF Pulmicort 0.5 mg/2 mL suspension for nebulization 0.5 mg inhalation BID Qty: 60 5RF Rx Instructions: NEEDS APPT PRIOR TO FURTHER REFILLS Perforomist 20 mcg/2 mL solution for nebulization 2 ml inhalation Q12H Qty: 120 3RF Rx Instructions: Needs appt for further refills. revefenacin 175 mcg/3 mL solution for nebulization 175 mcg inhalation QAM Qty: 90 2RF Rx Instructions: Needs appt for further refills. Discharge Orders: Discharge Order (Routine); Ordered 12/01/22 Ordered By: Ruperto Mejia Referrals: [facility] [Outside] [facility] [place] [facility] ([facility]) [Outside] Nancy Carrasco FNP-C [Primary Care Provider] - (Please make a follow up appointment as needed.) Patient Instructions: Albuterol (By breathing), Tiotropium (By breathing), Palliative Care (GEN), Opioid Safety Discharge Attestations Time Spent in Discharge Care*: greater than 30 min Status at Discharge: Cognitive status at discharge: cognitively intact, Behavioral status at discharge: cooperative, Quality Metrics Clinical Quality Measures [ No reported AMI, CVA or VTE this stay] Coding Level of Care Code Acute Code for Chg Fwd Diagnoses ESRD on dialysis N18.6; Z99.2
[2022-12-01 10:58] LABS: Glucose Point of Care 95 mg/dL (70-110)
== END 2022-12-01 15:20 | disposition hospice, home (50) | DRG 190 ==
LOC: ER 17:26 → MEDSURG 23:33
PROVIDERS: Family Medicine; Hospitalist; Admitting Provider Internal Medicine; Emergency Provider Family Medicine; PCP Nurse Practitioner Family; Visit Provider Internal Medicine
DX: J44.1 Chronic obstructive pulmonary disease with (acute) exacerbation (principal); I21.4 Non-ST elevation (NSTEMI) myocardial infarction; N18.6 End stage renal disease; J96.22 Acute and chronic respiratory failure with hypercapnia; I13.2 Hypertensive heart and chronic kidney disease with heart failure and with stage 5 chronic kidney disease, or end stage renal disease; I50.32 Chronic diastolic (congestive) heart failure; E46 Unspecified protein-calorie malnutrition; Z68.1 Body mass index [BMI] 19.9 or less, adult; F33.9 Major depressive disorder, recurrent, unspecified; E11.22 Type 2 diabetes mellitus with diabetic chronic kidney disease; Z99.2 Dependence on renal dialysis; Z99.81 Dependence on supplemental oxygen; Z79.51 Long term (current) use of inhaled steroids; Z79.82 Long term (current) use of aspirin; Z79.891 Long term (current) use of opiate analgesic; I25.2 Old myocardial infarction; Z87.891 Personal history of nicotine dependence; Z90.5 Acquired absence of kidney; K21.9 Gastro-esophageal reflux disease without esophagitis; I71.40 Abdominal aortic aneurysm, without rupture, unspecified; F41.9 Anxiety disorder, unspecified; G25.81 Restless legs syndrome; E11.51 Type 2 diabetes mellitus with diabetic peripheral angiopathy without gangrene; M81.0 Age-related osteoporosis without current pathological fracture; E03.9 Hypothyroidism, unspecified; E78.00 Pure hypercholesterolemia, unspecified
CPT/HCPCS: 12345; 36415; 36416; 36600; 71045; 80048; 80051; 80053; 82140; 82330; 82803; 82805; 82962; 83735; 83880; 84100; 84145; 84484; 85025; 86140; 86705; 86706; 87340; 90935; 93005; 94640; 94660; 94664; 96372; G0378; J0696; J1644; J7040; J7512; J7626; P9047